=== PATIENT | male | born 1965 | race Caucasian/White ===

== ENCOUNTER 2017-09-20 10:05 | Outpatient (RCR) | payer OTHER, SELFPAY | END 2017-09-20 10:06 | disposition home or self-care (01) | LOC: PT 10:05 | PROVIDERS: PCP Emergency Medicine; Visit Provider Otolaryngology | DX: I89.0 Lymphedema, not elsewhere classified (principal) | CPT/HCPCS: 97162 ==

== ENCOUNTER 2017-12-24 14:00 | Outpatient (RCR) | payer OTHER, SELFPAY | END 2017-12-24 14:01 | disposition home or self-care (01) | LOC: PT 14:00 | PROVIDERS: PCP Emergency Medicine; Visit Provider Otolaryngology | DX: I89.0 Lymphedema, not elsewhere classified (principal) | CPT/HCPCS: 97140; 97162; 97164 ==

== ENCOUNTER → 2017-12-24 15:46 | Outpatient (REF) | payer OTHER, SELFPAY ==
[2017-12-24 18:57] LABS: Amphetamine/Metha Screen,Urine Negative ng/mL (<1000); Barbiturates Screen,Urine Negative ng/mL (<200); Benzodiazepines Screen,Urine Negative ng/mL (<200); Cannabinoid Screen,Urine Negative ng/mL (<50); Cocaine Screen,Urine Negative ng/mL (<300); Methadone Screen,Urine Negative ng/mL (<300); Opiate Screen,Urine Negative ng/mL (<300); Phencyclidine Screen,Urine Negative ng/mL (<25)
== END ==
LOC: LAB 15:46
PROVIDERS: Visit Provider Emergency Medicine
DX: Z79.899 Other long term (current) drug therapy (principal)
CPT/HCPCS: 80305

== ENCOUNTER → 2018-01-25 10:24 | Outpatient (REF) | payer OTHER, SELFPAY ==
[2018-01-25 16:59] LABS: Amphetamine/Metha Screen,Urine Negative ng/mL (<1000); Barbiturates Screen,Urine Negative ng/mL (<200); Benzodiazepines Screen,Urine Negative ng/mL (<200); Cannabinoid Screen,Urine Negative ng/mL (<50); Cocaine Screen,Urine Negative ng/mL (<300); Methadone Screen,Urine Negative ng/mL (<300); Opiate Screen,Urine Positive ng/mL (<300); Phencyclidine Screen,Urine Negative ng/mL (<25)
== END ==
LOC: LAB 10:24
PROVIDERS: Visit Provider Emergency Medicine
DX: Z79.899 Other long term (current) drug therapy (principal)
CPT/HCPCS: 80305

== ENCOUNTER → 2018-02-21 10:43 | Outpatient (REF) | payer OTHER, SELFPAY ==
[2018-02-21 15:22] LABS: Amphetamine/Metha Screen,Urine Negative ng/mL (<1000); Barbiturates Screen,Urine Negative ng/mL (<200); Benzodiazepines Screen,Urine Positive ng/mL (<200); Cannabinoid Screen,Urine Negative ng/mL (<50); Cocaine Screen,Urine Negative ng/mL (<300); Methadone Screen,Urine Negative ng/mL (<300); Opiate Screen,Urine Positive ng/mL (<300); Phencyclidine Screen,Urine Negative ng/mL (<25)
== END ==
LOC: LAB 10:43
PROVIDERS: Visit Provider Emergency Medicine
DX: Z79.899 Other long term (current) drug therapy (principal)
CPT/HCPCS: 80305

== ENCOUNTER → 2018-06-17 13:58 | Outpatient (CLI) | payer OTHER, SELFPAY ==
[2018-06-17 14:54] LABS: Amphetamine/Metha Screen,Urine Negative ng/mL (<1000); Barbiturates Screen,Urine Negative ng/mL (<200); Benzodiazepines Screen,Urine Negative ng/mL (<200); Cannabinoid Screen,Urine Negative ng/mL (<50); Cocaine Screen,Urine Negative ng/mL (<300); Methadone Screen,Urine Negative ng/mL (<300); Opiate Screen,Urine Positive ng/mL (<300); Phencyclidine Screen,Urine Negative ng/mL (<25)
== END ==
PROVIDERS: Visit Provider Emergency Medicine
DX: Z79.899 Other long term (current) drug therapy (principal)
CPT/HCPCS: 80305

== ENCOUNTER → 2018-08-12 13:38 | Outpatient (CLI) | payer OTHER, SELFPAY ==
[2018-08-12 14:07] LABS: Amphetamine/Metha Screen,Urine Negative ng/mL (<1000); Barbiturates Screen,Urine Negative ng/mL (<200); Benzodiazepines Screen,Urine Positive ng/mL (<200); Cannabinoid Screen,Urine Negative ng/mL (<50); Cocaine Screen,Urine Negative ng/mL (<300); Methadone Screen,Urine Negative ng/mL (<300); Opiate Screen,Urine Positive ng/mL (<300); Phencyclidine Screen,Urine Negative ng/mL (<25)
== END ==
PROVIDERS: Visit Provider Emergency Medicine
DX: Z79.899 Other long term (current) drug therapy (principal)
CPT/HCPCS: 80305

== ENCOUNTER → 2018-10-05 16:42 | Outpatient (CLI) | payer OTHER, SELFPAY ==
[2018-10-05 18:42] LABS: Amphetamine/Metha Screen,Urine Negative ng/mL (<1000); Barbiturates Screen,Urine Negative ng/mL (<200); Benzodiazepines Screen,Urine Positive ng/mL (<200); Cannabinoid Screen,Urine Negative ng/mL (<50); Cocaine Screen,Urine Negative ng/mL (<300); Methadone Screen,Urine Negative ng/mL (<300); Opiate Screen,Urine Positive ng/mL (<300); Phencyclidine Screen,Urine Negative ng/mL (<25)
== END ==
PROVIDERS: Visit Provider Emergency Medicine
DX: Z79.899 Other long term (current) drug therapy (principal)
CPT/HCPCS: 80305

== ENCOUNTER → 2019-01-27 17:29 | Outpatient (CLI) | payer OTHER, SELFPAY ==
[2019-01-27 18:15] LABS: Amphetamine/Metha Screen,Urine Negative ng/mL (<1000); Barbiturates Screen,Urine Negative ng/mL (<200); Benzodiazepines Screen,Urine Negative ng/mL (<200); Cannabinoid Screen,Urine Negative ng/mL (<50); Cocaine Screen,Urine Negative ng/mL (<300); Methadone Screen,Urine Negative ng/mL (<300); Opiate Screen,Urine Positive ng/mL (<300); Phencyclidine Screen,Urine Negative ng/mL (<25)
[2019-02-10 03:46] LABS: Alprazolam Negative (Cutoff=100); Benzodiazepines Negative ng/mL (Cutoff=100); Clonazepam Negative (Cutoff=100); Flurazepam Negative (Cutoff=100); Lorazepam Negative (Cutoff=100); Midazolam Negative (Cutoff=100); Temazepam Negative (Cutoff=100); Triazolam Negative (Cutoff=100)
== END ==
PROVIDERS: Visit Provider Emergency Medicine
DX: Z79.891 Long term (current) use of opiate analgesic (principal)
CPT/HCPCS: 80305; 80346

== ENCOUNTER 2019-02-22 13:00 | Outpatient (RCR) | payer OTHER, SELFPAY | END 2019-02-22 13:05 | disposition home or self-care (01) | LOC: PT 13:00 | PROVIDERS: Visit Provider Otolaryngology | DX: I89.0 Lymphedema, not elsewhere classified (principal) | CPT/HCPCS: 97110; 97140; 97163; 97760 ==

== ENCOUNTER → 2019-07-11 13:49 | Outpatient (CLI) | payer OTHER, SELFPAY ==
[2019-07-11 14:33] LABS: Amphetamine/Metha Screen,Urine Negative ng/mL (<1000); Barbiturates Screen,Urine Negative ng/mL (<200); Benzodiazepines Screen,Urine Negative ng/mL (<200); Cannabinoid Screen,Urine Negative ng/mL (<50); Cocaine Screen,Urine Negative ng/mL (<300); Methadone Screen,Urine Negative ng/mL (<300); Opiate Screen,Urine Negative ng/mL (<300); Phencyclidine Screen,Urine Negative ng/mL (<25)
== END ==
PROVIDERS: Visit Provider Emergency Medicine
DX: Z79.899 Other long term (current) drug therapy (principal)
CPT/HCPCS: 80305

== ENCOUNTER → 2019-09-19 12:31 | Outpatient (CLI) | payer OTHER, SELFPAY ==
--- NOTE | 2019-09-19 12:33 | CA_ITS ---
APPROVED REPORT Right Upper Extremity Venous Study for DVT. Knock Up Assembler: GREYSON ShermanT Indications Upper Extremity Pain: Right Upper Extremity Edema: Right History of Smoking Pt has throat cancer,RUE swelling off and on for several weeks Vein Imaging IJV (R): Non-Compressible SCV (R): Non-Compressible Axillary (R): Non-Compressible, Thrombus Brachial (R): Partially Compressible Basilic (R): Partially Compressible Cephalic (R): Compressible Radial (R): Compressible Ulnar (R): Compressible Findings Study suggests a DVT in the right IJ, subclavian, axillary, proximal brachial and proximal basilic veins. Other deep veins of the right upper extremity are normal. Study suggests no evidence of SVT of the right upper extremity. Conclusion DVT in the right IJ, subclavian, axillary, proximal brachial and proximal basilic veins Critical Notification Critical Value: Yes Physician Notified Date: 09/19/2019 Time: 13:10 Physician Name: Dr Wright Electronically signed by : Corey George MD 09/19/2019 19:02:58
== END ==
PROVIDERS: PCP Emergency Medicine; Visit Provider Emergency Medicine
DX: M79.601 Pain in right arm (principal); M79.89 Other specified soft tissue disorders
CPT/HCPCS: 93971

== ENCOUNTER → 2020-05-06 16:13 | Outpatient (CLI) | payer OTHER, SELFPAY ==
[2020-05-08 13:57] LABS: Covid-19 Nasal PCR Sendout Lex NOT DETECTED
== END ==
PROVIDERS: PCP Emergency Medicine; Visit Provider Emergency Medicine
DX: Z03.818 Encounter for observation for suspected exposure to other biological agents ruled out (principal)
CPT/HCPCS: U0004

== ENCOUNTER → 2022-03-18 14:00 | Outpatient (CLI) | payer OTHER, SELFPAY ==
[2022-03-18 20:32] LABS: Amphetamine/Metha Screen,Urine Negative ng/ml (<1000); Barbiturates Screen,Urine Negative ng/ml (<200); Benzodiazepines Screen,Urine Positive ng/ml (<200); Cannabinoid Screen,Urine Negative ng/ml (<50)
[2022-03-18 20:33] LABS: Cocaine Screen,Urine Negative ng/ml (<300)
[2022-03-18 20:34] LABS: Methadone Screen,Urine Negative ng/ml (<300); Opiate Screen,Urine Positive ng/ml (<300)
[2022-03-18 20:35] LABS: Phencyclidine Screen,Urine Negative ng/ml (<25)
== END ==
PROVIDERS: PCP Emergency Medicine; Visit Provider Emergency Medicine
DX: Z79.899 Other long term (current) drug therapy (principal)
CPT/HCPCS: 80305

== ENCOUNTER 2022-03-21 09:53 | Emergency (ER) | payer OTHER, SELFPAY ==
[2022-03-21 11:27] VITALS: BP 144/90; PULSE 72; RESP 20; TEMP 36.8; O2SAT 96; BMI 29.7
--- NOTE | 2022-03-21 11:42 | PC.NURSE ---
ED MD AT BEDSIDE FOR EVALUATION
--- NOTE | 2022-03-21 11:53 | HMH.EDGENADL ---
Discharge Plan Disposition Patient Disposition: Home, Self-Care Condition: Good Prescriptions Prescriptions: New oxycodone 30 mg tablet 30 mg PO Q4-6H Qty: 16 0RF Rx Instructions: take 8X per day No Action diphenhydramine HCl [Benadryl Allergy] 12.5 mg/5 mL liquid 12.5 mg PO Q4-6H PRN (Reason: nausea and vomiting) Qty: 120 2RF tamsulosin 0.4 mg capsule 0.4 mg PO DAILY sildenafil (pulm.hypertension) 20 mg tablet 20 mg PO DIRECTED Qty: 40 0RF Rx Instructions: administer doses at least 4-6 hours apart alprazolam 1 mg tablet 1 mg PO BID Qty: 60 1RF gabapentin 600 mg tablet 600 mg PO QID Qty: 120 1RF morphine 30 mg tablet 60 mg PO BID 30 Days Qty: 120 0RF oxycodone 30 mg tablet 30 mg PO 8XD 30 Days Qty: 240 0RF omeprazole 40 mg capsule,delayed release(DR/EC) See Rx Instructions .ROUTE .COMPLEX Qty: 90 0RF Dose Instruction: TAKE 1 CAPSULE BY MOUTH ONCE A DAY Rx Instructions: TAKE 1 CAPSULE BY MOUTH ONCE A DAY lisinopril 5 mg tablet See Rx Instructions .ROUTE .COMPLEX Qty: 90 3RF Dose Instruction: TAKE 1 TABLET BY MOUTH EVERY DAY Rx Instructions: TAKE 1 TABLET BY MOUTH EVERY DAY levothyroxine 150 mcg tablet See Rx Instructions .ROUTE .COMPLEX Qty: 90 0RF Dose Instruction: TAKE 1 TABLET BY MOUTH ONCE A DAY Rx Instructions: TAKE 1 TABLET BY MOUTH ONCE A DAY polyethylene glycol 3350 [Miralax] 17 gram/dose powder 17 g PO DAILY Qty: 238 2RF Referrals Follow up/Referrals: Michele Wright MD [Primary Care Provider] - See instructions Activity Restrictions/Add. Instructions Additional Instructions/Restrictions: Take oxycodone as prescribed. Follow-up with primary care provider on Wednesday for further prescriptions for pain medication. Additional instructions for CONTROLLED SUBSTANCES: You have been prescribed a medication that is a controlled substance. Controlled substances include pain medications known as opiates and sedative nerve medications known as benzodiazepines. Tramadol, fioricet, and gabapentin are also controlled substances. Some common opiates include: Codeine (such as Tylenol #3) Hydrocodone (Vicodin, Lortab, Lorcet, [place]) Oxycodone (Percocet, Percodan, Oxycodone, Oxy IR) Some common benzodiazepines include: Diazepam (Valium) Lorazepam (Ativan) Alprazolam (Xanax) Clonazepam (Klonopin) Oxazepam (Serax) All of these controlled substances are highly addictive and frequently abused. Misuse can and frequently does lead to addiction as well as overdose and . Medication should be stored in a locked cabinet or other secure storage unit. Do not store the medication in a motor vehicle. Short term supplies, 3 days or less, are prescribed because of the highly addictive nature of the medication. Any of the controlled substance medication NOT taken should be disposed of properly and NOT SAVED. The recommended method of disposing of unused medications is: Place the medicines in a sealable plastic bag. If the medicine is a solid, crush it or add water to dissolve it. Add something undesirable (cat litter, coffee grounds, etc.) Dispose of sealed bag in household trash Do not flush or pour unused medicines down a sink or drain. Controlled substances should not be shared, given away or sold. Because of the addictive nature and frequent abuse, these medications are sometimes stolen. These medications should be kept in a safe place where they cannot be stolen. Do not keep them in your car or purse. Lost or stolen prescriptions for controlled substances WILL NOT BE REFILLED in this emergency department, regardless of whether a police report was filed. Clinical Impressions Clinical Impression: Chronic pain Discharge ED Provider: Wale Bird General Adult HPI General Chief complaint: PAIN Stated complaint: post op pain,throat surgery Time Seen by Provider: 03/01
[2022-03-21 12:10] VITALS: BP 110/70; PULSE 72; RESP 20; TEMP 36.7
== END 2022-03-21 12:10 | disposition home or self-care (01) ==
PROVIDERS: Emergency Provider Emergency Medicine; PCP Emergency Medicine
DX: C32.9 Malignant neoplasm of larynx, unspecified (principal); M54.2 Cervicalgia; R13.10 Dysphagia, unspecified; R11.2 Nausea with vomiting, unspecified; G89.29 Other chronic pain; F17.200 Nicotine dependence, unspecified, uncomplicated; Z79.899 Other long term (current) drug therapy; Z88.8 Allergy status to other drugs, medicaments and biological substances; Z85.89 Personal history of malignant neoplasm of other organs and systems
CPT/HCPCS: 99283

== ENCOUNTER → 2022-07-24 10:53 | Outpatient (CLI) | payer OTHER, SELFPAY | PROVIDERS: PCP Emergency Medicine; Visit Provider Emergency Medicine | DX: Z45.2 Encounter for adjustment and management of vascular access device (principal) ==

== ENCOUNTER 2022-08-20 10:49 | Outpatient (CLI) | payer OTHER, SELFPAY | END 2022-08-20 11:00 | disposition home or self-care (01) | LOC: INF 10:49 | PROVIDERS: PCP Emergency Medicine; Visit Provider Internal Medicine | DX: Z45.2 Encounter for adjustment and management of vascular access device (principal) | CPT/HCPCS: 96523; J1642 ==

== ENCOUNTER → 2022-09-02 10:28 | Outpatient (CLI) | payer OTHER, SELFPAY ==
--- NOTE | 2022-09-02 10:32 | XR_ITS ---
FINAL REPORT CLINICAL HISTORY: wrisit pain FINDINGS: Right wrist Three views were obtained. There is no acute fracture or dislocation. The joint spaces appear normal. No soft tissue abnormality is identified. IMPRESSION: No acute process. Reviewed, Interpreted and Dictated by Dev Cameron MD Transcribed by Lucy Ervin Authenticated and . [facility]
== END ==
PROVIDERS: PCP Emergency Medicine; Visit Provider Orthopaedic Surgery
DX: M25.531 Pain in right wrist (principal)
CPT/HCPCS: 73110

== ENCOUNTER → 2022-09-07 14:50 | Outpatient (CLI) | payer OTHER, SELFPAY ==
[2022-09-07 18:43] LABS: Barbiturates Screen,Urine Negative ng/ml (<200)
[2022-09-07 18:44] LABS: Benzodiazepines Screen,Urine Positive ng/ml (<200)
[2022-09-07 18:45] LABS: Amphetamine/Metha Screen,Urine Negative ng/ml (<1000); Cannabinoid Screen,Urine Positive ng/ml (<50)
[2022-09-07 18:46] LABS: Cocaine Screen,Urine Negative ng/ml (<300); Methadone Screen,Urine Negative ng/ml (<300)
[2022-09-07 18:47] LABS: Phencyclidine Screen,Urine Negative ng/ml (<25)
[2022-09-07 18:48] LABS: Opiate Screen,Urine Positive ng/ml (<300)
== END ==
PROVIDERS: PCP Emergency Medicine; Visit Provider Emergency Medicine
DX: Z79.899 Other long term (current) drug therapy (principal)
CPT/HCPCS: 80305

== ENCOUNTER 2022-10-13 13:45 | Outpatient (CLI) | payer OTHER, SELFPAY | END 2022-10-13 14:00 | disposition home or self-care (01) | LOC: INF 13:46 | PROVIDERS: PCP Emergency Medicine; Visit Provider Internal Medicine | DX: Z45.2 Encounter for adjustment and management of vascular access device (principal) | CPT/HCPCS: 96523; J1642 ==

== ENCOUNTER → 2022-11-03 23:18 | Outpatient (CLI) | payer OTHER, SELFPAY ==
[2022-11-03 21:19] LABS: Amphetamine/Metha Screen,Urine Negative ng/ml (<1000); Barbiturates Screen,Urine Negative ng/ml (<200)
[2022-11-03 21:20] LABS: Benzodiazepines Screen,Urine Negative ng/ml (<200)
[2022-11-03 21:21] LABS: Cannabinoid Screen,Urine Negative ng/ml (<50); Cocaine Screen,Urine Negative ng/ml (<300)
[2022-11-03 21:22] LABS: Methadone Screen,Urine Negative ng/ml (<300)
[2022-11-03 21:23] LABS: Opiate Screen,Urine Positive ng/ml (<300); Phencyclidine Screen,Urine Negative ng/ml (<25)
== END ==
PROVIDERS: PCP Emergency Medicine; Visit Provider Emergency Medicine
DX: G89.29 Other chronic pain (principal)
CPT/HCPCS: 80305

== ENCOUNTER 2022-11-12 13:42 | Outpatient (CLI) | payer OTHER, SELFPAY | END 2022-11-12 13:50 | disposition home or self-care (01) | LOC: INF 13:42 | PROVIDERS: PCP Emergency Medicine; Visit Provider Internal Medicine | DX: Z45.2 Encounter for adjustment and management of vascular access device (principal) | CPT/HCPCS: 96523; J1642 ==

== ENCOUNTER → 2022-12-30 14:10 | Outpatient (CLI) | payer OTHER, SELFPAY ==
[2022-12-30 18:48] LABS: Cannabinoid Screen,Urine Positive ng/ml (<50); Methadone Screen,Urine Negative ng/ml (<300)
[2022-12-30 18:49] LABS: Opiate Screen,Urine Positive ng/ml (<300)
[2022-12-30 21:15] LABS: Amphetamine/Metha Screen,Urine Negative ng/ml (<1000)
[2022-12-30 22:07] LABS: Barbiturates Screen,Urine Negative ng/ml (<200); Benzodiazepines Screen,Urine Positive ng/ml (<200); Cocaine Screen,Urine Negative ng/ml (<300); Phencyclidine Screen,Urine Negative ng/ml (<25)
== END ==
PROVIDERS: PCP Emergency Medicine; Visit Provider Emergency Medicine
DX: F41.9 Anxiety disorder, unspecified (principal)
CPT/HCPCS: 80305

== ENCOUNTER 2023-01-07 14:01 | Outpatient (CLI) | payer OTHER, SELFPAY | END 2023-01-07 14:15 | disposition home or self-care (01) | LOC: INF 14:01 | PROVIDERS: PCP Emergency Medicine; Visit Provider Internal Medicine | DX: Z45.2 Encounter for adjustment and management of vascular access device (principal) | CPT/HCPCS: 96523; J1642 ==

== ENCOUNTER 2023-02-03 13:43 | Outpatient (CLI) | payer OTHER, SELFPAY | END 2023-02-03 13:53 | disposition home or self-care (01) | LOC: INF 13:43 | PROVIDERS: PCP Emergency Medicine; Visit Provider Internal Medicine | DX: Z45.2 Encounter for adjustment and management of vascular access device (principal) | CPT/HCPCS: 96523; J1642 ==

== ENCOUNTER → 2023-02-16 01:10 | Outpatient (CLI) | payer OTHER, SELFPAY ==
[2023-02-16 20:52] LABS: Amphetamine/Metha Screen,Urine Negative ng/ml (<1000); Methadone Screen,Urine Negative ng/ml (<300)
[2023-02-16 20:53] LABS: Barbiturates Screen,Urine Negative ng/ml (<200)
[2023-02-16 20:54] LABS: Benzodiazepines Screen,Urine Positive ng/ml (<200); Cannabinoid Screen,Urine Negative ng/ml (<50)
[2023-02-16 20:55] LABS: Cocaine Screen,Urine Negative ng/ml (<300)
[2023-02-16 20:56] LABS: Opiate Screen,Urine Positive ng/ml (<300)
[2023-02-16 20:58] LABS: Phencyclidine Screen,Urine Negative ng/ml (<25)
== END ==
PROVIDERS: PCP Emergency Medicine; Visit Provider Emergency Medicine
DX: F41.9 Anxiety disorder, unspecified (principal)
CPT/HCPCS: 80305

== ENCOUNTER 2023-03-31 13:48 | Outpatient (CLI) | payer OTHER, SELFPAY | END 2023-03-31 13:57 | disposition home or self-care (01) | LOC: INF 13:49 | PROVIDERS: Visit Provider Internal Medicine | DX: Z45.2 Encounter for adjustment and management of vascular access device (principal) | CPT/HCPCS: 96523; J1642 ==

== ENCOUNTER 2023-05-12 14:05 | Outpatient (CLI) | payer OTHER, SELFPAY | END 2023-05-12 14:44 | disposition home or self-care (01) | LOC: INF 14:06 | PROVIDERS: Visit Provider Internal Medicine | DX: Z45.2 Encounter for adjustment and management of vascular access device (principal) | CPT/HCPCS: 96523; J1642 ==

== ENCOUNTER → 2023-05-19 23:14 | Outpatient (CLI) | payer OTHER, SELFPAY ==
[2023-05-19 18:48] LABS: Basophils % 0.5 % (0.1-2.0); Eosinophils # 0.1 K/mm3 (0.0-0.4); Eosinophils % 2.1 % (0.1-12.0); Hematocrit 48.5 % (42.0-52.0); Hemoglobin 16.3 g/dL (14.1-18.0); Lymphocytes # 1.1 K/mm3 (0.7-4.5); Lymphocytes % 17.2 % (10-50); Mean Corpuscular HGB Conc 33.7 g/dL (31.8-35.4); Mean Corpuscular Hemoglobin 29.8 pg (27.0-31.2); Mean Corpuscular Volume 88.6 fl (80-94); Mean Platelet Volume 10.2 fl (7.4-10.4); Monocytes # 0.5 K/mm3 (0.1-1.0); Monocytes % 8.2 % (1.7-9.3); Neutrophils # 4.6 K/mm3 (1.8-7.8); Platelet Count 145 K/mm3 (142-424); Red Blood Count 5.48 M/mm3 (4.60-6.20); Red Cell Distribution Width 14.8 % (11.5-17.5); White Blood Count 6.4 K/mm3 (4.8-10.8)
[2023-05-19 19:07] LABS: Chloride 98 mmol/L (98-107)
[2023-05-19 19:08] LABS: Potassium 3.5 mmoL/L (3.5-5.1); Sodium 139 mmol/L (136-145)
[2023-05-19 19:10] LABS: Alanine Aminotransferase 24 U/L (12-78); Alkaline Phosphatase 87 U/L (38-126); Anion Gap 12.5 mEq/L (5-15); Aspartate Amino Transferase 31 U/L (17-59); Bilirubin,Total 0.8 mg/dl (0.2-1.3); Blood Urea Nitrogen 16 mg/dl (9-20); Carbon Dioxide 32 mmol/L (22.0-30.0); Estimated Glomerular Filt Rate 77 ml/min (>60); GFR (African American) 94 ML/MIN (>60)
[2023-05-19 19:11] LABS: Albumin Level 4.7 g/dl (3.5-5.0); Albumin/Globulin Ratio 1.2 (1.1-1.8); Chol/HDL Ratio 6.5 (1-3.5); Cholesterol 235 mg/dl (140-200); Globulin 3.8 g/dL (1.3-3.2); Glucose 118 mg/dl (74-100); HDL Cholesterol 36 mg/dl (40-60); Total Protein,Serum 8.5 g/dl (6.3-8.2); Triglycerides 71 mg/dl (30-150); VLDL Cholesterol 14 mg/dL (0-40)
[2023-05-19 19:23] LABS: Direct LDL Cholesterol 166.19 mg/dL (100-129)
[2023-05-19 19:32] LABS: Amphetamine/Metha Screen,Urine Negative ng/ml (<1000); Benzodiazepines Screen,Urine Positive ng/ml (<200)
[2023-05-19 19:33] LABS: Barbiturates Screen,Urine Negative ng/ml (<200); Cocaine Screen,Urine Negative ng/ml (<300)
[2023-05-19 19:34] LABS: Methadone Screen,Urine Negative ng/ml (<300)
[2023-05-19 19:35] LABS: Cannabinoid Screen,Urine Negative ng/ml (<50); Opiate Screen,Urine Negative ng/ml (<300)
[2023-05-19 19:36] LABS: Phencyclidine Screen,Urine Negative ng/ml (<25)
[2023-05-19 19:43] LABS: Thyroid Stimulating Hormone 3.96 uIU/mL (0.465-4.68)
[2023-05-19 20:34] LABS: 25-OH Vitamin D, Total 44.5 ng/mL (30-100)
== END ==
PROVIDERS: Visit Provider Family Medicine
DX: Z79.899 Other long term (current) drug therapy (principal); E03.9 Hypothyroidism, unspecified; E78.5 Hyperlipidemia, unspecified; Z68.34 Body mass index [BMI] 34.0-34.9, adult
CPT/HCPCS: 80053; 80061; 80305; 82306; 84436; 84443; 85025; G0103

== ENCOUNTER 2023-06-09 13:34 | Outpatient (CLI) | payer OTHER, SELFPAY ==
[2023-06-09] MEDS: SODIUM CHLORIDE 0.9% 10ML FLUSH SYRINGE 10 ML IV (13:43)
== END 2023-06-09 13:47 | disposition home or self-care (01) ==
LOC: INF 13:36
PROVIDERS: Visit Provider Internal Medicine
DX: Z45.2 Encounter for adjustment and management of vascular access device (principal)
CPT/HCPCS: 96523; J1642

== ENCOUNTER 2023-06-14 12:56 | Outpatient (CLI) | payer OTHER, SELFPAY ==
[2023-06-14 14:26] LABS: Barbiturates Screen,Urine Negative ng/ml (<200)
[2023-06-14 14:28] LABS: Benzodiazepines Screen,Urine Negative ng/ml (<200); Cannabinoid Screen,Urine Negative ng/ml (<50)
[2023-06-14 14:29] LABS: Cocaine Screen,Urine Negative ng/ml (<300)
[2023-06-14 14:30] LABS: Methadone Screen,Urine Negative ng/ml (<300)
[2023-06-14 14:49] LABS: Amphetamine/Metha Screen,Urine Negative ng/ml (<1000)
[2023-06-14 14:50] LABS: Phencyclidine Screen,Urine Negative ng/ml (<25)
[2023-06-14 15:30] LABS: Opiate Screen,Urine Negative ng/ml (<300)
[2023-06-17 14:29] LABS: Opiates Negative (Cutoff=100); Oxycodone (GC/MS) 396 ng/mL (Cutoff=100); Oxymorphone (GC/MS) 282 ng/mL (Cutoff=100)
== END 2023-06-14 23:59 ==
LOC: LAB.DROPOF 12:56
PROVIDERS: PCP Family Medicine; Visit Provider Family Medicine
DX: Z79.899 Other long term (current) drug therapy (principal); M51.16 Intervertebral disc disorders with radiculopathy, lumbar region
CPT/HCPCS: 80307; 80361; 80365; G0480

== ENCOUNTER 2023-08-23 14:06 | Outpatient (CLI) | payer OTHER, SELFPAY ==
[2023-08-23] MEDS: SODIUM CHLORIDE 0.9% 10ML FLUSH SYRINGE 10 ML IV (14:15)
== END 2023-08-23 14:15 | disposition home or self-care (01) ==
PROVIDERS: PCP Internal Medicine; Visit Provider Internal Medicine
DX: Z85.21 Personal history of malignant neoplasm of larynx (principal); Z45.2 Encounter for adjustment and management of vascular access device
CPT/HCPCS: 96523; J1642

== ENCOUNTER 2023-09-20 13:45 | Outpatient (CLI) | payer OTHER, SELFPAY ==
[2023-09-20] MEDS: SODIUM CHLORIDE 0.9% 10ML FLUSH SYRINGE 10 ML IV (13:50)
== END 2023-09-20 23:59 | disposition home or self-care (01) ==
LOC: INF 13:45
PROVIDERS: Visit Provider Internal Medicine
DX: Z85.21 Personal history of malignant neoplasm of larynx (principal)
CPT/HCPCS: 96523; J1642

== ENCOUNTER 2023-11-09 13:41 | Outpatient (CLI) | payer OTHER, SELFPAY ==
[2023-11-09] MEDS: SODIUM CHLORIDE 0.9% 10ML FLUSH SYRINGE 10 ML IV (13:55)
== END 2023-11-09 14:00 | disposition home or self-care (01) ==
PROVIDERS: Visit Provider Internal Medicine
DX: Z85.21 Personal history of malignant neoplasm of larynx (principal)
CPT/HCPCS: 96523; J1642

== ENCOUNTER 2023-12-13 12:45 | Outpatient (CLI) | payer OTHER, SELFPAY ==
[2023-12-13] MEDS: SODIUM CHLORIDE 0.9% 10ML FLUSH SYRINGE 10 ML IV (12:50)
== END 2023-12-13 23:59 | disposition home or self-care (01) ==
LOC: INF 12:46
PROVIDERS: Visit Provider Internal Medicine
DX: C32.9 Malignant neoplasm of larynx, unspecified (principal)
CPT/HCPCS: 96523; J1642

== ENCOUNTER 2024-03-24 14:54 | Outpatient (CLI) | payer OTHER, SELFPAY ==
[2024-03-24] MEDS: SODIUM CHLORIDE 0.9% 10ML FLUSH SYRINGE 10 ML IV (15:08)
== END 2024-03-24 15:09 | disposition home or self-care (01) ==
LOC: INF 14:55
PROVIDERS: Visit Provider Internal Medicine
DX: Z45.2 Encounter for adjustment and management of vascular access device (principal)
CPT/HCPCS: 96523; J1642

== ENCOUNTER 2024-05-03 13:32 | Outpatient (CLI) | payer OTHER, SELFPAY ==
--- OUTSIDE RECORDS SUMMARY | 2024-05-03 13:34 | XMS_ITS | Encounter Summary ---
Author Organization Healthcare Address [address] [place], [place] [id number] Care Team Providers Care Assistant Food Service Director Name Role Phone Michele Wright MD Primary Care Provider + [phone] Shun Hurst MD Unavailable [phone] Divine Carpenter MD Unavailable [phone] Ambika Cain CF-ORTHOTIST PROSTHETIST Unavailable Unavailab le Encounter Details Date Type Department Care Team (Late st Contact Info) Description 02/04/2024 11:00 AM EDT Office Visit [facility] Voice [address] [place] [address] Earnestine Billy, [facility]-ORTHOTIST PROSTHETIST [address] [facility] [id number] [place] [address] Aphonia (Primary Dx); History of laryngeal cancer Social History Tobacco Use Types Packs/Day Years Used Date Smoking Tobacco: Former Cigarettes 2 10 1 991 - 2000 Smokeless Tobacco: Never Alcohol Use Standard Drinks/Week Comments Not Currently 0 (1 standard drink = 0.6 oz pure alcohol) Alcoholic Drinks/day: Quit consuming alcohol in remote past PHQ-2 Answer Date Recorded Patient Health Questionnaire-2 Score 0 08/18/2021 Sex and Gender Information Value Date Recorded Sex Assigned at Male 11/21/2020 2:37 PM EDT Legal Sex Male 8:00 PM EDT Gender Identity Male 11/21/2020 2:37 PM EDT Sexual Orientation Straight 11/21/2020 2: 37 PM EDT documented as of this encounter Miscellaneous Notes * Progress Notes - Earnestine Billy, [facility]-ORTHOTIST PROSTHETIST - 02/04/2024 11:00 AM EDT [facility] Tracheoesophageal Puncture Assessment/Treatment Service Date: 02/04/2024 Referring Provider: Gil Hernandez MD Total assessment/treatment time: 30 minutes Treatment Diagnosis: R.49. Aphonia and C32: Laryngeal cancer History: Mr. 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 Unfortunately, he developed recurrent disease and required a salvage extended total laryngectomy with partial glossectomy on 03/22/2018. He was taken to the OR on 12/19/2018 for a tracheoesophageal puncture and Z-plasty with release of scar tissue. In August of 2019, he was diagnosed and treated for a right upper extremity DVT. On 11/21/2019, Mr. Barreto was taken to the OR for a right wedge VATS resection. Pathology revealed SCCa. Mr. Barreto subsequently completed SBRT x 6 on 03/29/2020 and continues to receive chemotherapy. Mr. Barreto has since been diagnosed with persistenceof disease in this area and is currently undergoing chemotherapy for the same. Mr. Barreto has had ongoing issues with dysphagia and has undergone several esophageal dilation procedures with modest results. His prosthesis was last changed on 07/07/2023 using a 17Fr./10mm Provox Hackett with an XtraFlange. Patient complaint: Mr. Barreto reports his prosthesis has been leaking on and off for several weeksand it has been getting more challenging to produce a voice. He reports his swallowing function andweight are stable. He denies difficulty breathing or head/neck or ear pain. He is consistently using his LaryTube and HME's. He is not having any issues getting his laryngectomee supplies. His continues to receive treatment for pancreatic cancer at [facility]. Assessment/Procedure: Prosthesis Size/Type: 17Fr./10mm/Provox Hackett/#[id number] Provox XtraFlange lot#: [id number] Dilation: deferred Insertion Method: Gel capsule Mr. Barreto removed his LaryTube. His stoma is clean and of a functional size to allow functional respiration and TEP maintenance and management. The prosthesis is well seated within the tract. Mild inflammation is noted in the irene-puncture tract region. The prosthesis has a distorted and discolored appearance with biofilm noted on the tracheal flange. Central leakage was noted as he sipped water. At this point it was recommended the prosthesis be changed and he verbally consented. A small amount of lidocaine was topically applied to the irene-puncture tract region for patient comfort. After confirmation of anesthetic effect, the prosthesis was removed with clamped hemostats. The new prosthesis with an XtraFlange was immediately placed without incident or difficulty. The XtraFlange was placed to decrease the likely low of irene leakage given the distorted/expanded appearance of the leaking prosthesis. After confirmation of functional placement, the insertion tab for the prosthesis andthe XtraFlange was clipped and the prosthesis was functionally oriented within the tract. Evaluation: The TEP rotates freely within the tract. No central leakage or peripheral leakage observed. Neophonation is characteristically functional and per patient report less effortful. Plan: Follow-up with [facility] as needed for TEP maintenance as needed. Use the new brush provided and dispose of the used cleaning brush. Follow-up with cancer care team at prescribed intervals or sooner if issues arise. Education: Mr. Barreto was educated regarding assessment findings and recommendations. He demonstrated functional understanding of the information presented and consented to the prescribed plan of care. documented in this encounter Plan of Treatment Upcoming Encounters Date Type Department Care Team ([facility] Contact Info) Description 07/17/2024 12:30 PM EST Clinical Support [facility] Head, Neck & Respiratory [address] [facility] [place] [address] 07/17/2024 1:30 PM EST Appointment [facility] Radiology [address] [place] [phone] 07/20/2024 2:50 PM EST Office Visit [facility] Head[facility] Neck [facility] Respiratory [address] [facility], [address] [place] [address] Divine Carpenter MD [address] [facility] Diane Zuniga [facility] [address] [place] [address] documented as of this encounter Visit Diagnoses Diagnosis Aphonia- Primary History of laryngeal cancer Personal history of malignant neoplasm of larynx documented in this encounter Additional Health Concerns Assessment Noted Time A fall risk assessment has been complete d for the patient 01/17/2024 11:14 AM EDT A Body Mass Index follow-up plan has been documented for the patient 02/04/2024 11:58 AM EDT documented as of this encounter Care Teams Assistant Food Service Director Relationship Specialty Start Date End Date Michele Wright MD [address] [place] [address] PCP - General 10/11/20 Shun Hurst MD [address] [facility] [address] [place] [address] Surgeon Neurosurgery 02/24/21 Divine Carpenter MD [address] [facility] [address] [place] [address] Medical Oncologist Medical Oncology 06/13/21 Ambika Cain CF-ORTHOTIST PROSTHETIST Speech Language Pathologist Speech Pathology 10/06/23 documented as of this encounter
--- OUTSIDE RECORDS SUMMARY | 2024-05-03 13:34 | XMS_ITS | Encounter Summary ---
Author Organization [facility] Address [address] [place] [address] Care Team Providers Care Supervisor Electrolytic Tinning Name Role Phone Michele Wright MD Primary Care Provider + [phone] Shun Hurst MD Unavailable [phone] Divine Carpenter MD Unavailable [phone] Ambika Cain CF-BREWERY CELLAR WORKER Unavailable Unavailab le Reason for Visit * Reason Onset Date Comments Med Refill 03/20/2024 Encounter Details Date Type Department Care Team (Late st Contact Info) Description 03/20/2024 Refill [facility] Neck [facility] Respiratory [address] [facility], [address]nd [place] [address] Ambika Ambriz, RN [facility]-HEAD NECK AND RESPIRATORY CLINIC Neoplasm related pain Social History Tobacco Use Types Packs/Day Years [...] PM EDT documented as of this encounter Plan of Treatment Upcoming Encounters Date Type Department Care Team (Late Contact Info) Description 07/17/2024 12:30 PM EST Clinical Support [facility] Neck [facility] Res[facility] [address] [facility], [address]nd [place] [address] 07/17/2024 1:30 PM EST Appointment [facility] G Radiology [address] [place] [phone] 07/20/2024 2:50 PM EST Office Visit [facility] Head[facility] Neck [facility] Respiratory [address] [facility], [address]nd [place] [address] Divine Carpenter MD [address] [facility] [place] [facility] [address] [facility] [address] [place] [address] documented as of this encounter Visit Diagnoses Diagnosis Neoplasm related pain Neoplasm related pain (acute) (chronic) documented in this encounter Additional Health Concerns Assessment Noted Time A fall risk assessment has been complete d for the patient 01/17/2024 11:14 AM EDT A Body Mass Index follow-up plan has been documented for the patient 02/04/2024 11:58 AM EDT documented as of this encounter Care Teams Supervisor Electrolytic Tinning Relationship Specialty Start Date End Date Michele Wright MD [address] [place] [address] PCP - General 10/11/20 Shun Hurst MD [address] [facility] [address] [place] [address] Surgeon Neurosurgery 02/24/21 Divine Carpenter MD [address] [facility] Diane Rosasson [facility] [address] [place] [address] Medical Oncologist Medical Oncology 06/13/21 Ambika Cain CF-BREWERY CELLAR WORKER Speech Language Pathologist Speech Pathology 10/06/23 documented as of this encounter
--- OUTSIDE RECORDS SUMMARY | 2024-05-03 13:34 | XMS_ITS | Encounter Summary ---
Author Organization Healthcare Address [address] [place] [id number] Care Team Providers Care Sanitation Associate Name Role Phone Michele Wright MD Primary Care Provider + [phone] Shun Hurst MD Unavailable [phone] Divine Carpenter MD Unavailable [phone] Ambika Cain CF-ORTHOPAEDIC NURSE Unavailable Unavailab le Encounter Details Date Type Department Care Team (Late st Contact Info) Description 03/20/2024 Orders Only [facility] Head[facility] Neck [facility] Respiratory [address] [facility], [address]nd [place] [address] Divine Carpenter MD [address] [facility] [address] [place] [address] Neoplasm related pain Social History Tobacco Use [...] Encounters Date Type Department Care Team (Late st Contact Info) Description 07/17/2024 12:30 PM EST Clinical Support [facility] Neck [facility] Respiratory [address] [facility], [address] [place] [address] 07/17/2024 1:30 PM EST Appointment [facility] G Radiology [address] [place] [address] 07/20/2024 2:50 PM EST Office Visit [facility] Head[facility] Neck & Respiratory [address] [facility], [address] [place] [address] Divine Carpenter MD [address] [facility] [address] [facility] [address] [place] [address] documented as of this encounter Visit Diagnoses [...] documented as of this encounter Care Teams Sanitation Associate Relationship Specialty Start Date End Date Michele Wright MD [address] [place] [address] PCP - General 10/11/20 Shun Hurst MD [address] [facility] [address] [place] [address] Surgeon Neurosurgery 02/24/21 Divine Carpenter MD [address] [facility] Diane Rosasson [facility] [address] [place] [address] Medical Oncologist Medical Oncology 06/13/21 Ambika Cain CF-ORTHOPAEDIC NURSE Speech Language Pathologist Speech Pathology 10/06/23 documented as of this encounter
--- OUTSIDE RECORDS SUMMARY | 2024-05-03 13:34 | XMS_ITS | Encounter Summary ---
Author Organization [facility] Address [address] [place] [address] Care Team Providers Care Market Development Specialist Name Role Phone Michele Wright MD Primary Care Provider + [phone] Shun Hurst MD Unavailable [phone] Divine Carpenter MD Unavailable [phone] Ambika Cain CF-FRESH WORK INSPECTOR Unavailable Unavailab le Reason for Visit * Reason Onset Date Comments Med Refill 02/22/2024 Encounter Details Date Type Department Care Team (Late Contact Info) Description 02/22/2024 Refill [facility] Head[facility] Neck [facility] Respiratory [address] [facility], [address]nd [place] [address] Ambika Ambriz, RN AMB-HEAD NECK AND RESPIRATORY [...] [facility] Head[facility] Neck & Respiratory [address] [facility], [address]nd [place] [address] 07/17/2024 1:30 PM EST Appointment [facility] G Radiology [address] [place] [phone] 07/20/2024 2:50 PM EST Office Visit [facility] Head[facility] Neck & Respiratory [address] [facility], [address]nd [place] [address] Divine Carpenter MD [address] [facility] [address] [facility] [address] [place] [address] documented as of this encounter Visit Diagnoses [...] documented as of this encounter Care Teams Market Development Specialist Relationship Specialty Start Date End Date Michele Wright MD [address] [place] [address] PCP - General 10/11/20 Shun Hurst MD [address] [facility] [address] [place] [address] Surgeon Neurosurgery 02/24/21 Divine Carpenter MD [address] [facility] Diane Rosasson [facility] [address] [place] [address] Medical Oncologist Medical Oncology 06/13/21 Ambika Cain CF-FRESH WORK INSPECTOR Speech Language Pathologist Speech Pathology 10/06/23 documented as of this encounter
--- OUTSIDE RECORDS SUMMARY | 2024-05-03 13:34 | XMS_ITS | Clinical Summary ---
Author Organization [facility] Address [address] [place] [address] Care Team Providers Care Inspector Floor Sub Assembly Name Role Phone Michele Wright MD Primary Care Provider + [phone] Shun Hurst MD Unavailable [phone] Divine Carpenter MD Unavailable [phone] Ambika Cain CF-FLOUR BLENDER Unavailable Unavailab le Allergies Active Allergy Reactions Criticality Noted Date Comments Cetuximab Anaphylaxis High 02/17/2021 SOA, hypotension, after 9 ml of drug Docetaxel Rash,Shortness of breath,Unknown - Patient states they do not know rxn details High 04/20/2017 Patient very dyspnic, flushed, severe back pain. Patient very dyspnic, flushed, severe back pain. Patient very dyspnic, flushed, severe back pain. Methadone Rash,Other - please document in the comment field Low 02/11/2017 Medications ondansetron (Zofran) 8 MG tablet Take 1 tablet (8 mg) by mouth 2 (two) times a day. Starting day after chemo for 3 days. 30 tablet 5 4 Active omeprazole (PriLOSEC) [address] capsule Take 1 capsule (40 mg) by mouth 1 (one) time each day. Do not crush or chew. 90 capsule 3 4 Active naloxone (Narcan) 4 mg/0.1 mL nasal sprayIndications :Neoplasm related pain 1. Give 1 spray in nostril for no/slow breathing or cannot wake after opioid use 2. Call 911 3. Repeat in other nostril if symptoms continue 1 each 4 Active lidocaine (Xylocaine) 2 % solution 3 Active atorvastatin (Lipitor) 20 MG tablet Take 1 tablet (20 mg) by mouth 1 (one) time each day. 90 tablet 4 Active tamsulosin (Flomax) 0.4 MG 24 hr capsule Take 1 capsule (0.4 mg) by mouth every night. 90 capsule 1 4 Active levothyroxine (Synthroid, Levoxyl) 125 MCG tablet TAKE 1 TABLET BY MOUTH EVERY DAY 90 tablet 1 4 Active lisinopril-hydro CHLOROthiazide 20-25 MG tabletIndication s:Primary hypertension TAKE 1 TABLET BY MOUTH EVERY DAY 90 tablet 1 4 Active amLODIPine (Norvasc) 2.5 MG tablet TAKE 1 TABLET BY MOUTH EVERY DAY 90 tablet 1 4 Active ALPRAZolam (Xanax) 1 MG tablet Take 1 tablet (1 mg) by mouth 2 (two) times a day. 60 tablet 2 4 Active gabapentin (Neurontin) 600 MG tabletIndication s:Neoplasm related pain Take 1 tablet (600 mg) by mouth 4 (four) times a day. 120 tablet 2 4 Active oxyCODONE (Roxicodone) 30 MG immediate release tabletIndication s:Neoplasm related pain Take 1 tablet (30 mg) by mouth every 3 (three) hours if needed for severe pain. 240 tablet 4 Active gabapentin (Neurontin) 600 MG tabletIndication s:Neoplasm related pain Take 1 tablet (600 mg) by mouth 4 (four) times a day. 120 tablet 2 4 04/17/20 24 Discontin ued(Reord er) ALPRAZolam (Xanax) 1 MG tablet Take 1 tablet (1 mg) by mouth 2 (two) times a day. 60 tablet 2 4 04/17/20 24 Discontin ued(Reord er) oxyCODONE (Roxicodone) 30 MG immediate release tabletIndication s:Neoplasm related pain Take 1 tablet (30 mg) by mouth every 3 (three) hours if needed for severe pain. 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 12/26/2020 Secondary malignant neoplasm of chest wall 11/26 Neoplasm related pain 10/14/2020 Current use of predatory animal exterminator anticoagulation 020 DVT (deep venous thrombosis) 10/18/2019 Aspiration of liquid 12/28/2018 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 Aphonia 04/04/2018 Status post laryngectomy 04/04/2018 Tracheostomy dependent 01/10/2018 Diabetes mellitus 04/12/2017 Cancer of larynx 03/18/2017 Cancer Staging:Clinical stage from 02/19/2017:Stage ZULAY(cT3, cN2c, cM0) - Signed by Divine Carpenter MD on 10/14/2020 Pathologic stage from 03/22/2018:Stage III(rpT3, pN0, cM0) - Signed by Divine Carpenter MD on 10/14/2020 Pathologic stage from 11/21/2019:Stage IVC(rpTX, pNX, pM1) - Signed by Divine Carpenter MD on 10/14/2020 Dysphagia, pharyngeal 03/17/2017 Resolved Problems Problem Noted Date Diagnosed Date Resolved Date Second hand smoke exposure 06/30/2021 0 07/21/2021 Acute COVID-19 06/12/2021 06/16/2021 Dysphagia causing pulmonary aspiration with swallowing 04/22/2021 04/11/2022 Asymmetric SNHL (sensorineural hearing loss) 7 07/21/2021 Subjective tinnitus of left ear 04/07/2017 07/21/2021 Encounters Date Type Department Care Team Description 04/20/2024 Refill [facility] [address] [place] [address] Divine Carpenter MD Neoplasm related pain 04/17/2024 Orders Only [facility] [address] [place] [address] Divine Carpenter MD 04/17/2024 Refill [facility] [address] [phone] Ambika Ambriz RN Neoplasm related pain 03/21/2024 Refill [facility] [address] [phone] Divine Carpenter MD Primary hypertension 03/20/2024 Orders Only [facility] [address] [address] Divine Carpenter MD Neoplasm related pain 03/20/2024 Refill [facility] [address] [place] [address] Ambika Ambriz RN Neoplasm related pain 03/01/2024 Refill [facility] [address] [address] Prem Murillo, ACCOUNT CONSULTANT Primary hypertension 02/22/2024 Refill [facility] [address] [address] Ambika Ambriz RN Neoplasm related pain 02/15/2024 Orders Only [facility] [address] [address] Ambika Ambriz RN 02/15/2024 Refill [facility] [address] [address] Ambika Ambriz RN 02/04/2024 11:00 AM EDT Office Visit [facility] [address] [address] Earnestine Billy, [facility]-FLOUR BLENDER Aphonia (Primary Dx); History of laryngeal cancer 02/04/2024 Travel from Last 3 Months Family History Medical History Relation Name Comments Kidney failure Father FH: kidney fa ilure Stroke Father Liver cancer Mother FH: liver cance r Breast cancer Sister 1 Uterine cancer Sister 2 Heart attack Sister 3 Uterine cancer Sister 4 FH: uterine c ancer Anesthesia problems Neg Hx Malig Hyperthermia Neg Hx Relation Name Status Comments Father Mother Sister 1 Sister 2 Sister 3 Sister 4 Social History Tobacco Use Types Packs/Day Years Used Date Smoking Tobacco: Former Cigarettes 2 10 1 991 - 2000 Smokeless Tobacco: Never Tobacco Cessation:Counseling Given: Not Answered Alcohol Use Standard Drinks/Week Comments Not Currently [...] Orientation Straight 11/21/2020 2: 37 PM EDT Last Filed Vital Signs Vital Sign Reading Time Taken Comments Blood Pressure 124/68 01/17/2024 11:13 AM EDT Pulse 67 01/17/2024 11:13 AM EDT Temperature 36.9 ??C (98.4 ??F) 01/17/2024 1 1:13 AM EDT Respiratory Rate 16 01/17/2024 11:1 3 AM EDT Oxygen Saturation 92% 01/17/2024 11: 13 AM EDT Inhaled Oxygen Concentration - - Weight 99.3 kg (218 lb 14.7 oz) 024 11:13 AM EDT Height 176 cm (5' 9.29 ) 01/17/2024 11: 13 AM EDT Body Mass Index 32.06 01/17/2024 11:13 AM EDT Plan of Treatment Upcoming Encounters Date Type Department Care Team (Late st Contact Info) Description 07/17/2024 12:30 PM EST Clinical Support [facility] [address] [address] 07/17/2024 1:30 PM EST Appointment [facility] Radiology [address] [place] [address] 07/20/2024 2:50 PM EST Office Visit [facility] [address] [place] [address] Divine Carpenter MD 800 [facility] [address] [place] [address] Health Maintenance Due Date Last Done Comments [facility]-Diabetes: Hemoglobin A1C 1966 [facility]-/Child/Adol SDOH Screenings 1966 [facility]-Pneumococcal Vaccine: Pediatrics (0 to 5 Years) and At-Risk Patients (6 to 64 Years) (1 of 2 - PCV) 1972 Diabetes: Dental Exam 1976 [facility]- SDOH Screenings 1984 [facility]-Adult SDOH Screenings 1984 [facility]-DTaP,Tdap,and Td Vaccines (1 - Tdap) 1985 [facility]-Hepatitis B Vaccines (1 of 3 - 19+ 3-dose series) 1985 [facility]-Zoster Vaccines (1 of 2) 1985 CT Colonography 2011 Colonoscopy 2011 FIT-DNA 2011 FIT 2011 FOBT 2011 Sigmoidoscopy 2011 [facility]-Colorectal Cancer Screening 2011 [id number] Vaccine (3 - Moderna risk series) 11/07/2020 10/10/2020, 09/12/2020 [facility]-Depression Screening 08/18/2022 08/18/2021, 11/0 05/2020 [facility]-Influenza Vaccine (#1) 01/30/202405/19, 05/12/2022, 02/21/2018 [facility]-RSV Vaccine: 60+ Years or (1 - 1-dose 75+ series) 2041 [facility]-HIV Screening Completed 06/12/2021, 06/12/2021 [facility]-Hepatitis C Screening Completed 06/12/2021 [facility]-Obesity Intervention Completed 024, 01/10/2024, 07/20/2023, Additional history exists [facility]-HIB Vaccines Aged Out No longer e ligible based on patient's age to complete this topic [facility]-HPV Vaccines Aged Out No longer e ligible based on patient's age to complete this topic [facility]-Hepatitis A Vaccines Aged Out No longer eligible based on patient's age to complete this topic [facility]-IPV Vaccines Aged Out No longer e ligible based on patient's age to complete this topic [facility]-Rotavirus Vaccines Aged Out No lo nger eligible based on patient's age to complete this topic Medical Devices Implanted Type Area Washroom Operator Device Identifier Shelf Expiration Date Model / Serial / Lot Port Clearvue Power 8fr - [id number] Implanted:Qty: 1 on 03/06/2021 by Clyde Aguillon MD at [facility] [employer]-[id number] / / Description:8 Fr Single lume n power port, 25 cm length. Procedures Procedure Name Priority Date/Time Associated Diagnosis Comments HEPATITIS C ANTIBODY - ED W/REFLEX TO HCV QUANT PCR STAT 06/12/2021 12:53 PM EST HIV 1/2 ANTIBODY/ANTIGEN SCREEN WITH REFLEX TO HIV I/II DIFFERENTIATION STAT 06/12/2021 12:53 PM EST from Last 3 Months or Most Recently Relevant to Health Maintenance Results * HIV 1 & 2 Antibody/Antigen Screen (06/12/2021 12:53 PM EST) Pathologist [facility] HIV 1 & 2 Antibody/Anti gen Screen Nonreactive Nonreactive 06/12/2021 2:03 PM EST [facility] Blood Venous blood specimen / Unknown Venipuncture / Unknown 06/12/2021 12:53 PM EST 06/12/2021 1:07 PM EST us Berta Mohan MD LAB BLOOD ORDERABLES Final Res ult [facility] [address] [place] [id number] * [place] Hepatitis C Antibody (06/12/2021 12:53 PM EST) Pathologist [facility] Hepatitis C Antibody Negative Negative 06/12/2021 2:02 PM EST [facility] Blood Venous blood specimen / Unknown Venipuncture / Unknown 06/12/2021 12:53 PM EST 06/12/2021 1:07 PM EST us Berta Mohan MD LAB BLOOD ORDERABLES Final Res ult [facility] [address] [place] [address] from Last 3 Months or Most Recently Relevant to Health Maintenance Insurance [facility] MEDICAID Advance Directives * DNR/DNI (Latest Code Status on File) Date Activated Date Inactivated Comments 06/12/2021 2:29 PM 06/16/2021 6:02 PM Question Answer Comments DNR determined on/before admission date? Yes Patient has decision-making capacity? Yes Care Teams Inspector Floor Sub Assembly Relationship Specialty Start Date End Date Michele Wright MD [address] [place] [address] PCP - General 10/11/20 Shun Hurst MD [address] [place] [address] Surgeon Neurosurgery 02/24/21 Divine Carpenter MD 800 [facility] [address] [place] [address] Medical Oncologist Medical Oncology 06/13/21 Ambika Cain -FLOUR BLENDER Speech Language Pathologist Speech Pathology 10/06/23
--- OUTSIDE RECORDS SUMMARY | 2024-05-03 13:34 | XMS_ITS | Encounter Summary ---
Author Organization [facility] Address [address] [place] [address] Care Team Providers Care Manager Risk Name Role Phone Michele Wright MD Primary Care Provider + [phone] Shun Hurst MD Unavailable [phone] Divine Carpenter MD Unavailable [phone] Ambika Cain CF-TRAINING ENGINEER Unavailable Unavailab le Reason for Visit * Reason Onset Date Comments Med Refill 02/15/2024 Encounter Details Date Type Department Care Team (Late Contact Info) Description 02/15/2024 Refill [facility] [address] [place] [address] Ambika Ambriz RN [facility] Social History Tobacco Use Types Packs/Day Years Used Date Smoking Tobacco: Former Cigarettes 2 10 1 1 - 2000 Smokeless Tobacco: Never Alcohol Use [...] Neck & Respiratory [address] [place] [address] 07/17/2024 1:30 PM EST Appointment [facility] Radiology [address] [place] [address] 07/20/2024 2:50 PM EST Office Visit [facility] Res[facility] 800 [facility], [address]nd [place] [address] Divine Carpenter MD [address] [facility] [address] [place] [phone] documented as of this encounter Visit Diagnoses Not on filedocumented in this encounter Additional Health Concerns Assessment Noted Time A fall risk assessment has been complete d for the patient 01/17/2024 11:14 AM EDT A Body Mass Index follow-up plan has been documented for the patient 02/04/2024 11:58 AM EDT documented as of this encounter Care Teams Manager Risk Relationship Specialty Start Date End Date Michele Wright MD [address] [place] [address] PCP - General 10/11/20 Shun Hurst MD [address] [facility] [address] [place] [address] Surgeon Neurosurgery 02/24/21 Divine Carpenter MD 800 [facility] Diane Rosasson [facility] [address] [place] [address] Medical Oncologist Medical Oncology 06/13/21 Ambika Cain CF-TRAINING ENGINEER Speech Language Pathologist Speech Pathology 10/06/23 documented as of this encounter
--- OUTSIDE RECORDS SUMMARY | 2024-05-03 13:34 | XMS_ITS | Encounter Summary ---
Author Organization [facility] Address [address] [place] [id number] Care Team Providers Care Pigment Presser Name Role Phone Michele Wright MD Primary Care Provider + [phone] Shun Hurst MD Unavailable [phone] Divine Carpenter MD Unavailable [phone] Ambika Cain CF-MEDICAL IMAGING TECHNOLOGIST Unavailable Unavailab le Encounter Details Date Type Department Care Team (Late Contact Info) Description 04/17/2024 Orders Only [facility]ck [facility] Res[facility] 800 [facility], [address] [place] [address] Divine Carpenter MD [address] [facility] [address] [place] [address] Social History Tobacco Use Types Packs/Day Years [...] [facility] Res[facility] 800 [facility], [address]nd [place] [address] 07/17/2024 1:30 PM EST Appointment [facility] Radiology [address] [place] [address] 07/20/2024 2:50 PM EST Office Visit [facility]ck [facility] Res[facility] 800 [facility], [address] [place] [address] Divine Carpenter MD 800 [facility] [address] [facility] [address] [place] [address] documented as of this encounter Visit Diagnoses Not on filedocumented in this encounter Additional Health Concerns Assessment Noted Time A fall risk assessment has been complete d for the patient 01/17/2024 11:14 AM EDT A Body Mass Index follow-up plan has been documented for the patient 02/04/2024 11:58 AM EDT documented as of this encounter Care Teams Pigment Presser Relationship Specialty Start Date End Date Michele Wright MD [address] [place] [address] PCP - General 10/11/20 Shun Hurst MD [address] [facility] [address] [place] [address] Surgeon Neurosurgery 02/24/21 Divine Carpenter MD 800 [facility] Diane Rosasson [address] [place] [address] Medical Oncologist Medical Oncology 06/13/21 Ambika Cain CF-MEDICAL IMAGING TECHNOLOGIST Speech Language Pathologist Speech Pathology 10/06/23 documented as of this encounter
--- OUTSIDE RECORDS SUMMARY | 2024-05-03 13:34 | XMS_ITS | Encounter Summary ---
Author Organization [facility] Address [address] [place] [address] Care Team Providers Care An/Ssn 2 4 Operator Name Role Phone Michele Wright MD Primary Care Provider + [phone] Shun Hurst MD Unavailable [phone] Divine Carpenter MD Unavailable [phone] Ambika Cain CF-FILM PROCESS OPERATOR Unavailable Unavailab le Reason for Visit * Reason Onset Date Comments Med Refill 04/17/2024 Encounter Details Date Type Department Care Team (Late st Contact Info) Description 04/17/2024 Refill [facility] Res[facility] 800 [facility], [address]nd [place] [address] Ambika Ambriz, RN [facility]-HEAD NECK AND RESPIRATORY [...] [facility], 2nd [place] [address] 07/17/2024 1:30 PM EST Appointment [facility] Radiology [address] [place] [address] 07/20/2024 2:50 PM EST Office Visit [facility]ck [facility] Res[facility] 800 [facility], [address]nd [place] [address] Divine Carpenter MD 800 [facility] Efrain [facility] [address] [place] [address] documented as of this encounter Visit Diagnoses [...] documented as of this encounter Care Teams An/Ssn 2 4 Operator Relationship Specialty Start Date End Date Michele Wright MD [address] [place] [address] PCP - General 10/11/20 Shun Hurst MD [address] [facility] [address] [place] [address] Surgeon Neurosurgery 02/24/21 Divine Carpenter MD 800 [facility] Diane Rosasson [facility] [address] [place] [address] Medical Oncologist Medical Oncology 06/13/21 Ambika Cain CF-FILM PROCESS OPERATOR Speech Language Pathologist Speech Pathology 10/06/23 documented as of this encounter
--- OUTSIDE RECORDS SUMMARY | 2024-05-03 13:34 | XMS_ITS ---
Author Organization [facility] Address [address] [place] [address] Care Team Providers Care Digital Composer Name Role Phone Michele Wright MD Primary Care Provider + [phone] Shun Hurst MD Unavailable [phone] Divine Carpenter MD Unavailable [phone] Ambika Cain CF-COTTON ACREAGE MEASURER Unavailable Unavailab le Active Problems Problem Noted Date Diagnosed Date Bilateral carotid artery stenosis 03/11/2023 Neuropathy of right upper extremity 03/11/2023 History of laryngeal cancer 09/10/2022 Second hand smoke exposure 07/28/2021 Good tolerance for activity 07/21/2021 Hx of deep venous thrombosis 04/04/2021 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 Past Plans Infusion Treatment 1 Plan Name Start Date Discontinue Date Treatment Medications Discontinue Reason Plan Provider (RESTRICTED)? TIXAGEVIMAB / CILGAVIMAB FOR PROPHYLAXIS 07/28/2021 03/23/2022 No medications scheduled. Other (See Comments) Divine Carpenter MD (RESTRICTED) TIXAGEVIMAB / CILGAVIMAB FOR PROPHYLAXIS 06/30/2021 07/28/2021 No medications scheduled. Therapy Complete Divine Carpenter MD Oncology Treatment Plan Name Start Date Discontinue Date Treatment Medications Discontinue Reason Plan Provider Cycles CARBOplatin / Fluorouracil Every 21 Days 03/10/20 21 03/23/2022 5-FU (Adrucil)5-FU (Adrucil) chemo infusion - for home use (VENDOR supplied)CARBO platin (Paraplatin)CA RBOplatin (Paraplatin) chemo IVPB (by AUC: GOG-COCKCROFT GAULT) Other (See Comments) Divine Carpenter MD 6 of 8 cycles started Cetuximab / CARBOplatin / Fluorouracil Every 21 Days 1 02/17/2021 CARBOplatin (Paraplatin)CA RBOplatin (Paraplatin) chemo IVPB (by AUC: GOG-COCKCROFT GAULT)cetuxima b (Erbitux) chemo IVPB Toxicity/Compl ication Divine Carpenter MD 2 of 6 cycles started [id number]: Pembrolizumab Every 42 Days Every 84 Days 03/14/20 20 11/25/2020 No medications scheduled. Progression Divine Carpenter MD 3 of 8 cycles started Radiation Treatments * Plan Last Treated On Elapsed Days Fractions Treated Prescribed Fraction Dose Prescribed Total Dose [id number] RTAx 12/20/2020 11 10 of 10 300 cGy 3,000 cG y Reference Point Last Treated On Elapsed Days Session Dose Total Dose Right Axilla 12/20/2020 11 300 cGy 3,000 cGy Lifetime Dose Tracking * Chemical Lifetime Dose Automatic Entry Manual Entr y Fluoro Time 5.3 minutes 5.3 minutes 0 minutes Air Kerma 130.3 mGy 130.3 mGy 0 mGy Air Kerma Area Product 2,131.24 ??Gym?? 2,131.24 ??Gym ?? 0 ??Gym?? Resolved Problems Problem Noted Date Diagnosed Date Resolved Date Second hand smoke exposure 06/30/2021 0 07/21/2021 Acute COVID-19 06/12/2021 06/16/2021 Dysphagia causing pulmonary aspiration with swallowing 04/22/2021 04/11/2022 Asymmetric SNHL (sensorineural hearing loss) 7 07/21/2021 Subjective tinnitus of left ear 04/07/2017 07/21/2021
--- OUTSIDE RECORDS SUMMARY | 2024-05-03 13:34 | XMS_ITS | Encounter Summary ---
Author Organization [facility] Address [address] [place], [place] [address] Care Team Providers Care Cover Inspector Name Role Phone Michele Wright MD Primary Care Provider + [phone] Shun Hurst MD Unavailable [phone] Divine Carpenter MD Unavailable [phone] Ambika Cain CF-PRIMARY TEACHER Unavailable Unavailab le Reason for Visit * Reason Comments Med Refill Encounter Details Date Type Department Care Team (Late st Contact Info) Description 04/20/2024 Refill [facility] Neck [facility] Respiratory 800 [facility], [address]nd [place] [address] Divine Carpenter MD 800 [facility] [address] [place] [address] Neoplasm related pain Social History Tobacco Use [...] as of this encounter Miscellaneous Notes * Telephone Encounter - Li Burch, RN - 04/21/2024 8:53 AM EST duplicate documented in this encounter Plan of Treatment Upcoming Encounters Date Type Department Care Team (Late st Contact Info) Description 07/17/2024 12:30 PM EST Clinical Support [facility]ck [facility] Respiratory 800 [facility], [address]nd [place] [address] 07/17/2024 1:30 PM EST Appointment [facility] Radiology [address] [place] [address] 07/20/2024 2:50 PM EST Office Visit [facility] Head[facility] Neck [facility] Respiratory 800 [facility], [address] [place] [address] Divine Carpenter MD 800 [facility] Diane [address] [place] [address] documented as of this encounter Visit Diagnoses [...] documented as of this encounter Care Teams Cover Inspector Relationship Specialty Start Date End Date Michele Wright MD [address] [place] [address] PCP - General 10/11/20 Shun Hurst MD [address] [facility] [address] [place] [address] Surgeon Neurosurgery 02/24/21 Divine Carpenter MD 800 [facility] [address] [place] [address] Medical Oncologist Medical Oncology 06/13/21 Ambika Cain CF-PRIMARY TEACHER Speech Language Pathologist Speech Pathology 10/06/23 documented as of this encounter
--- OUTSIDE RECORDS SUMMARY | 2024-05-03 13:34 | XMS_ITS | Encounter Summary ---
Author Organization Healthcare Address [address] [id number] Care Team Providers Care Avionics Electronics Technician Name Role Phone Michele Wright MD Primary Care Provider + [phone] Shun Hurst MD Unavailable [phone] Divine Carpenter MD Unavailable [phone] Ambika Cain CF-GUN REPAIR CLERK Unavailable Unavailab le Encounter Details Date Type Department Care Team (Late st Contact Info) Description 03/01/2024 Refill Pav [facility] Head, Neck & Respiratory [address] [place] [address] Prem Murillo, DIGITAL PROJECT COORDINATOR [facility] [address] [place] [address] Primary hypertension Social History Tobacco Use Types Packs/Day Years [...] Pav CC Head, Neck & Respiratory [address] [facility], 2nd [place] [address] 07/17/2024 1:30 PM EST Appointment PAV G Radiology [address] [place] [address] 07/20/2024 2:50 PM EST Office Visit Pav CC Head, Neck & Respiratory [address] [facility], 2nd [place] [address] Divine Carpenter MD [facility] [address] [facility] [address] [place] [address] documented as of this encounter Visit Diagnoses Diagnosis Primary hypertension Unspecified essential hypertension documented in this encounter Additional Health Concerns Assessment Noted Time A fall risk assessment has been complete d for the patient 01/17/2024 11:14 AM EDT A Body Mass Index follow-up plan has been documented for the patient 02/04/2024 11:58 AM EDT documented as of this encounter Care Teams Avionics Electronics Technician Relationship Specialty Start Date End Date Michele Wright MD [address] [place] [address] PCP - General 10/11/20 Shun Hurst MD [address] [facility] [address] [place] [address] Surgeon Neurosurgery 02/24/21 Divine Carpenter MD [address] [facility] Diane [address] [place] [address] Medical Oncologist Medical Oncology 06/13/21 Ambika Cain CF-GUN REPAIR CLERK Speech Language Pathologist Speech Pathology 10/06/23 documented as of this encounter
--- OUTSIDE RECORDS SUMMARY | 2024-05-03 13:34 | XMS_ITS | Encounter Summary ---
Author Organization Healthcare Address [address] [place] [address] Care Team Providers Care Floral Clerk Name Role Phone Michele Wright MD Primary Care Provider + [phone] Shun Hurst MD Unavailable [phone] Divine Carpenter MD Unavailable [phone] Ambika Cain CF-STRIPPING SHOVEL OPERATOR Unavailable Unavailab le Encounter Details Date Type Department Care Team ([facility] Contact Info) Description 02/15/2024 Orders Only Pav CC Head, Neck & Respiratory [address] [facility], 2nd [place] [address] Ambika Ambriz RN AMB-HEAD NECK AND RESPIRATORY [...] Pav CC Head, Neck & Respiratory [address] [facility], 2nd [place] [address] 07/17/2024 1:30 PM EST Appointment PAV G Radiology [address] [place] [address] 07/20/2024 2:50 PM EST Office Visit Pav CC Head, Neck & Respiratory [address] [place] [address] Divine Carpenter MD [address] [facility] [address] [place] [address] documented as of this encounter Visit Diagnoses Not on filedocumented in this encounter Additional Health Concerns Assessment Noted Time A fall risk assessment has been complete d for the patient 01/17/2024 11:14 AM EDT A Body Mass Index follow-up plan has been documented for the patient 02/04/2024 11:58 AM EDT documented as of this encounter Care Teams Floral Clerk Relationship Specialty Start Date End Date Michele Wright MD [address] [place] [address] PCP - General 10/11/20 Shun Hurst MD [address] [facility] [address] [place] [address] Surgeon Neurosurgery 02/24/21 Divine Carpenter MD [address] [facility] Diane Efrain [facility] [address] [place] [address] Medical Oncologist Medical Oncology 06/13/21 Ambika Cain CF-STRIPPING SHOVEL OPERATOR Speech Language Pathologist Speech Pathology 10/06/23 documented as of this encounter
--- OUTSIDE RECORDS SUMMARY | 2024-05-03 13:34 | XMS_ITS | Encounter Summary ---
Author Organization [facility] Address [address] [place] [address] Care Team Providers Care Ice Plant Operator Name Role Phone Michele Wright MD Primary Care Provider + [phone] Shun Hurst MD Unavailable [phone] Divine Carpenter MD Unavailable [phone] mAbika Cain CF-SAP PORTAL ARCHITECT Unavailable Unavailab le Encounter Details Date Type Department Care Team (Latest Contact Info) Description 02/04/2024 Travel Social History Tobacco Use Types Packs/Day Years [...] & Respiratory [address] [place] [address] 07/17/2024 1:30 PM EST Appointment PAV G Radiology [address] [place] [address] 07/20/2024 2:50 PM EST Office Visit Pav CC Head, Neck & Respiratory [address] [facility], 2nd [place] [address] Divine Carpenter MD [address] [facility] Diane [facility] [address] [place] [address] documented as of this encounter Visit Diagnoses Not on filedocumented in this encounter Additional Health Concerns Assessment Noted Time A fall risk assessment has been complete d for the patient 01/17/2024 11:14 AM EDT A Body Mass Index follow-up plan has been documented for the patient 02/04/2024 11:58 AM EDT documented as of this encounter Care Teams Ice Plant Operator Relationship Specialty Start Date End Date Michele Wrgiht MD [address] [place] [address] PCP - General 10/11/20 Shun Hurst MD [address] [facility] [address] [place] [address] Surgeon Neurosurgery 02/24/21 Divine Carpenter MD [address] [facility] Diane Rothmanrickson [facility] [address] [place] [address] Medical Oncologist Medical Oncology 06/13/21 Ambika Cain, CF-SAP PORTAL ARCHITECT Speech Language Pathologist Speech Pathology 10/06/23 documented as of this encounter
--- OUTSIDE RECORDS SUMMARY | 2024-05-03 13:34 | XMS_ITS | Encounter Summary ---
Author Organization Healthcare Address [address] [place], [place] [address] Care Team Providers Care Substation Operator Apprentice Name Role Phone Michele Wright MD Primary Care Provider + [phone] Shun Hurst MD Unavailable [phone] Divine Carpenter MD Unavailable [phone] Ambika Cain CF-SHADE MAKER Unavailable Unavailab le Reason for Visit * Reason Comments Med Refill Encounter Details Date Type Department Care Team (Late st Contact Info) Description 03/21/2024 Refill Pav CC Head, Neck & Respiratory 800 [facility], [address]nd [place] [address] Divine Carpenter MD 800 [facility] [address] [place] [address] Primary hypertension Social History Tobacco Use Types [...] Pav CC Head, Neck & Respiratory [address] [facility], [address]nd [place] [address] 07/17/2024 1:30 PM EST Appointment PAV G Radiology [address] [place] [address] 07/20/2024 2:50 PM EST Office Visit Pav CC Head, Neck & Respiratory [address] [facility], [address]nd [place] [address] Divine Carpenter MD 800 [facility] E[address] [facility] [address] [place] [address] documented as of this encounter Visit Diagnoses Diagnosis Primary hypertension Unspecified essential hypertension documented in this encounter Additional Health Concerns Assessment Noted Time A fall risk assessment has been complete d for the patient 01/17/2024 11:14 AM EDT A Body Mass Index follow-up plan has been documented for the patient 02/04/2024 11:58 AM EDT documented as of this encounter Care Teams Substation Operator Apprentice Relationship Specialty Start Date End Date Michele Wright MD [address] [place] [address] PCP - General 10/11/20 Shun Hurst MD [address] [facility] [address] [place] [address] Surgeon Neurosurgery 02/24/21 Divine Carpenter MD 800 [facility] Diane Efrain [address] [place] [address] Medical Oncologist Medical Oncology 06/13/21 Ambika Cain CF-SHADE MAKER Speech Language Pathologist Speech Pathology 10/06/23 documented as of this encounter
--- OUTSIDE RECORDS SUMMARY | 2024-05-03 13:35 | XMS_ITS | Encounter Summary ---
Author Organization Healthcare Address [address] [id number] Care Team Providers Care Fisheries Manager Name Role Phone Michele Wright MD Primary Care Provider + [phone] Edgar Szymanski MD Unavailable [phone] Shun Hurst MD Unavailable [phone] Divien Carpenter MD Unavailable [phone] Encounter Details Date Type Department Care Team (Late st Contact Info) Description 07/27/2023 Telephone [place] [facility] Pre[facility] [address], [address] [place] [address] Duarte Marin MD [address] [place] [address] Social History Tobacco Use Types Packs/Day Years [...] Pav CC Head, Neck & Respiratory 800 [facility], 2nd [place] [address] 07/17/2024 1:30 PM EST Appointment PAV G Radiology [address] [place] [address] 07/20/2024 2:50 PM EST Office Visit Pav CC Head, Neck & Respiratory 800 [facility], 2nd [place] [address] Divine Carpenter MD [address] [facility] Diane Zuniga [facility] [address] [place] [address] documented as of this encounter Visit Diagnoses Not on filedocumented in this encounter Additional Health Concerns Assessment Noted Time A fall risk assessment has been complete d for the patient 07/12/2023 10:42 AM EST A Body Mass Index follow-up plan has been documented for the patient 07/23/2023 4:38 PM EST documented as of this encounter Care Teams Fisheries Manager Relationship Specialty Start Date End Date Michele Wright MD [address] [place], [place] [address] PCP - General 10/11/20 Edgar Szymanski MD 800 [facility] [address] [place] [address] Radiation Oncologist Radiation Therapy 03/14/20 4 Shun Hurst MD [address] [facility] [address] [place] [address] Surgeon Neurosurgery 02/24/21 Divine Carpenter MD 800 [facility] Diane Zuniga [facility] [address] [place] [address] Medical Oncologist Medical Oncology 06/13/21 documented as of this encounter
--- OUTSIDE RECORDS SUMMARY | 2024-05-03 13:35 | XMS_ITS | Encounter Summary ---
Author Organization [facility] Address [address] [place] [address] Care Team Providers Care Electrical Prospecting Observer Name Role Phone Michele Wright MD Primary Care Provider + [phone] Shun Hurst MD Unavailable [phone] Divine Carpenter MD Unavailable [phone] Ambika Cain CF-RAISE MINER Unavailable Unavailab le Reason for Visit * Reason Onset Date Comments Med Refill 11/26/2023 Encounter Details Date Type Department Care Team (Late Contact Info) Description 11/26/2023 Refill Pav CC Head, Neck & Respiratory 800 [facility] 2nd [place] [address] Li Burch, RN Neoplasm related pain (Primary Dx) Social History Tobacco Use Types Packs/Day Years Used Date Smoking Tobacco: Former Cigarettes 2 10 1 - 2000 Smokeless Tobacco: Never Alcohol [...] Pav CC Head, Neck & Respiratory 800 [facility], 2nd [place] [address] 07/17/2024 1:30 PM EST Appointment PAV G Radiology [address] [place] [address] 07/20/2024 2:50 PM EST Office Visit Pav CC Head, Neck & Respiratory 800 [facility], [address]nd [place] [address] Divine Carpenter MD 800 [facility] [address] [place] [address] documented as of this encounter Visit Diagnoses Diagnosis 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) documented in this encounter Additional Health Concerns Assessment Noted Time A fall risk assessment has been complete d for the patient 07/12/2023 10:42 AM EST A Body Mass Index follow-up plan has been documented for the patient 07/23/2023 4:38 PM EST documented as of this encounter Care Teams Electrical Prospecting Observer Relationship Specialty Start Date End Date Michele Wright MD [address] [place] [address] PCP - General 10/11/20 Shun Hurst MD [address] [facility] [address] [place] [address] Surgeon Neurosurgery 02/24/21 Divine Carpenter MD 800 [facility] Diane Zuniga [facility] [address] [place] [address] Medical Oncologist Medical Oncology 06/13/21 Ambika Cain CF-RAISE MINER Speech Language Pathologist Speech Pathology 10/06/23 documented as of this encounter
--- OUTSIDE RECORDS SUMMARY | 2024-05-03 13:35 | XMS_ITS | Encounter Summary ---
Author Organization [facility] Address [address] [place] [address] Care Team Providers Care Habilitative Interventionist Name Role Phone Michele Wright MD Primary Care Provider + [phone] Edgar Szymanski MD Unavailable [phone] Shun Hurst MD Unavailable [phone] Divine Carpenter MD Unavailable [phone] Reason for Visit * Reason Onset Date Comments Med Refill 09/06/2023 Encounter Details Date Type Department Care Team (Late st Contact Info) Description 09/06/2023 Refill Pav CC Head, Neck & Respiratory [address] [place] [address] Ambika Ambriz, RN AMB-HEAD NECK AND RESPIRATORY CLINIC Primary hypertension Social History Tobacco Use Types [...] Pav CC Head, Neck & Respiratory [address] [facility], 2nd [place] [address] 07/17/2024 1:30 PM EST Appointment PAV G Radiology [address] [place] [address] 07/20/2024 2:50 PM EST Office Visit Pav CC Head, Neck & Respiratory [address] [facility], 2nd [place] [address] Divine Carpenter MD [address] [facility] Diane Zuniga [facility] [address] [place] [address] documented as of this encounter Visit Diagnoses Diagnosis Primary hypertension Unspecified essential hypertension documented in this encounter Additional Health Concerns Assessment Noted Time A fall risk assessment has been complete d for the patient 07/12/2023 10:42 AM EST A Body Mass Index follow-up plan has been documented for the patient 07/23/2023 4:38 PM EST documented as of this encounter Care Teams Habilitative Interventionist Relationship Specialty Start Date End Date Michele Wright MD [address] [place] [address] PCP - General 10/11/20 Edgar Szymanski MD [address] [facility] [address] [place] [address] Radiation Oncologist Radiation Therapy 03/14/20 4 Shun Hurst MD [address] [facility] [address] [place] [address] Surgeon Neurosurgery 02/24/21 Divine Carpenter MD [address] [facility] Diane Zuniga [facility] [address] [place] [address] Medical Oncologist Medical Oncology 06/13/21 documented as of this encounter
--- OUTSIDE RECORDS SUMMARY | 2024-05-03 13:35 | XMS_ITS | Encounter Summary ---
Author Organization [facility] Address [address] [place], [place] [id number] Care Team Providers Care Property Custodian Name Role Phone Michele Wright MD Primary Care Provider + [phone] Edgar Szymanski MD Unavailable [phone] Shun Hurst MD Unavailable [phone] Divine Carpenter MD Unavailable [phone] Reason for Visit * Reason Onset Date Comments [facility] Lab/home Health 08/06/2023 Encounter Details Date Type Department Care Team (Late st Contact Info) Description 08/06/2023 Telephone Pav CC Head, Neck & Respiratory 800 [facility], 2nd [place] [address] Divine Carpenter MD 800 [facility] [address] [place] [address] [facility] Lab/home Health Social History Tobacco Use Types Packs/Day Years [...] encounter Miscellaneous Notes * Telephone Encounter - Lyn Jorgensen, RN - 08/06/2023 4:10 PM EST Returned phone call and spoke with Kylie at [facility]. She states a Port flush order is needed for patient coming in Wednesday. Order faxed to facility * Telephone Encounter - Nedra Babcock - 08/06/2023 10:13 AM EST Lab /Home Health Orders Patient: Anibal Barreto Type of Order: Monthly port Flush (due to come in Wednesday) Company and Caller Name: [facility] Fax Number (if outside [place]): [phone] Best contact number: [phone] Optimal time of day to reach caller: ANYTIME Additional comments/information from caller: They are needing a new Monthly Port Flush order as theprevious one in May Note: Please do not reply to this message. Follow-up communication and further actions as a result of this message need to be communicated with the patient directly, if the patient is not active onMyChart. If the patient is active on MyChart, they will receive notification of the communication/outcome via [employer]. documented in this encounter Plan of Treatment Upcoming Encounters Date Type Department Care Team (Late st Contact Info) Description 07/17/2024 12:30 PM EST Clinical Support Pav CC Head, Neck & Respiratory [address] [place] [address] 07/17/2024 1:30 PM EST Appointment PAV G Radiology [address] [place] [address] 07/20/2024 2:50 PM EST Office Visit Pav CC Head, Neck & Respiratory [address], [address] [place] [address] Divine Carpenter MD [address] Diane Zun[address] [place] [address] documented as of this encounter Visit Diagnoses Not on filedocumented in this encounter Additional Health Concerns Assessment Noted Time A fall risk assessment has been complete d for the patient 07/12/2023 10:42 AM EST A Body Mass Index follow-up plan has been documented for the patient 07/23/2023 4:38 PM EST documented as of this encounter Care Teams Property Custodian Relationship Specialty Start Date End Date Michele Wright MD [address] [place] [address] PCP - General 10/11/20 Edgar Szymanski MD [address] [facility] [address] [place] [address] Radiation Oncologist Radiation Therapy 03/14/20 4 Shun Hurst MD [address] [place] [address] Surgeon Neurosurgery 02/24/21 Divine Carpenter MD [address] [place] Diane Rothmanrickson [facility] [address] [place] [address] Medical Oncologist Medical Oncology 06/13/21 documented as of this encounter
--- OUTSIDE RECORDS SUMMARY | 2024-05-03 13:35 | XMS_ITS | Encounter Summary ---
Author Organization Healthcare Address [address] [id number] Care Team Providers Care Helmet Coverer Name Role Phone Michele Wright MD Primary Care Provider [phone] Edgar Szymanski MD Unavailable [phone] Shun Hurst MD Unavailable [phone] Divine Carpenter MD Unavailable [phone] Reason for Visit * Auth/Cert (Routine) Specialty Diagnoses / Procedures Referred By Contac t Referred To Contact Diagnoses Esophageal stenosis Esophageal stenosis Procedures [place] ESOPHAGOSCOPY FLEXIBLE TRANSORAL DIAGNOSTIC [place] ESOPHAGOSCOPY FLEXIBLE TRANSORAL DIAGNOSTIC [place] ESOPHAGOSCOPY FLEX BALLOON DILAT <30 MM DIAM [place] ESOPHAGOSCOPY DILATE ESOPHAGUS BALLOON 30 MM FLEXIBLE ESOPHAGOSCOPY WITH BALLOON DILATION , SUPER DILATION . . Gil Hernandez MD [address] [facility] [address] [place] [address] Phone: tel: fax: [facility] [address] [place] [phone] Phone: tel: Referral ID Status Reason Start Date Expiration Date Visits Re quested Visits Authorized [id number] 1 1 Encounter Details Date Type Department Care Team (Late st Contact Info) Description 07/30/2023 1:55 PM EST Anesthesia Event [facility] [address] [place] [address] Denae Rdz MD [address] [place] [address] Anesthesia Record Procedure Summary Procedure Name Responsible Anesthesiologist Anesthesia Start Time Anesthesia Stop Time FLEXIBLE ESOPHAGOSCOPY WITH BALLOON DILATION , SUPER DILATION . Denae Rdz MD 07/30/23 1355 07/30/23 1451 Events Date Time Event Comment 07/30/2023 1339 1355 In Room 1355 An Start 1355 An Start Data 1359 An Induction The patient was reevaluated immediately before moderate or deep sedation use and before anesthesia induction. 1404 An Intubation 1407 Anesthesia Ready 1409 Proc Start 1429 Proc Fin 1442 An Extubation 1446 an stop data 1447 Out of Room 1451 Handoff to Receiving I compl eted my handoff to the receiving clinician during which we: 1. Identified the patient 2. Identified the responsible provider 3. Reviewed the pertinent medical history 4. Discussed the surgical course 5. Reviewed intra-op anesthesia management and issues during anesthesia 6. Set expectations for post-procedure period 7. Allowed opportunity for questions and acknowledgement of understanding. 1451 An Stop Meds Name Total fentaNYL (Sublimaze) injection 50 mcg/mL 50 mcg lidocaine PF (Xylocaine-MPF) 2% 80 mg propofol (Diprivan) injection 10 mg/mL 2 00 mg rocuronium (ZeMuron) injection 10 mg/mL 20 mg dexamethasone (Decadron) injection 4 mg/ mL 8 mg ePHEDrine injection prefilled syringe 5 mg/mL 10 mg phenylephrine (Scott-Synephrine) prefilled syringe 1 mg/10 mL 200 mcg ondansetron (Zofran) injection 2 mg/mL 4 mg sugammadex (Bridion) injection 100 mg/mL 200 mg clindamycin (Cleocin) 900 mg in 50 mL (p remix) 900 mg lactated Ringer's infusion 0 mL * Agents No agents on file. * Blood No blood administrations on file. Lines, Drains, and Airways Type Details Placement Removal Single Lumen Implantable Port 03/06/21; 1229; Yes; 03/06/21; Other (Comment); Yes; Yes; Left; Chest; Kwabena Waits 03/06/21 1229 by Radha Norwood, repeat chief 07/24/21; Throat 07/24/21 0000 b y Oma Lyons RN Wound 02/19/22; 1014; Yes; Other; Throat (flexible esophagoscopy) 02/19/22 1014 by Guillermina Sanchez RN Wound 07/30/23; N; Yes; Incision; Throat 07/30/23 0000 by Dalila Srinivasan RN Peripheral IV Placement Date: 07/30/23; Placement Time: 1240; Catheter Size: 20 G; Orientation: Distal, Posterior, Right; Location: Forearm; Site Prep: Alcohol; Local Anesth: None; Technique: Anatomical landmarks; Inserted by: JONATHAN Colon; Insertion Attempts: 1; Patient Tolerance: Tolerated well; Removal Date: 07/30/23; Removal Time: 1524; Removal Reason: Discharge 07/30/23 1240 by Darlene George RN 07/30/23 1524 by Macarena Red RN ETT Placement Date: 07/30/23; Placement Time: 1404 (created via procedure documentation); Mask Ventilation: 0; Technique: Direct laryngoscopy; Type: ETT - single; Single Lumen Tube Size: 5 mm; Cuffed: Yes; Laryngoscope: La; Blade Size: 3; Location: Tracheostomy (jessica tube); Grade View: Grade I; Insertion Attempts: 1; Placement Verification: Auscultation, Capnometry; Airway Comments: Atraumatic. No change to dentition. ; Placed by: NUTRITIONAL HEALTH COACH; Removal Date: 07/30/23; Removal Time: 1446 07/30/23 1404 by Davion Arana CRNA 07/30/23 1446 by Davion Arana CRNA documented in this encounter Social History Tobacco Use Types Packs/Day Years [...] as of this encounter Miscellaneous Notes * Anesthesia Postprocedure Evaluation - Davion Arana CRNA - 07/30/2023 2:51 PM EST Patient: Anibal Barreto Anesthesia Type: general Vitals Value Taken Time BP 188/80 07/30/23 1451 Temp 97.5F 07/30/23 1451 Pulse 74 07/30/23 1451 Resp 14 07/30/23 1451 SpO2 100 07/30/23 1451 Anesthesia Post Evaluation Patient location during evaluation: PACU Patient participation: complete - patient participated Level of consciousness: awake Pain management: adequate (pain score 0-3) Airway patency: natural airway Cardiovascular status: acceptable Respiratory status: acceptable, nonlabored ventilation, face mask, spontaneous ventilation and unassisted Hydration status: acceptable Comments: vss No notable events documented. * Anesthesia Procedure Notes - Davion Arana CRNA - 07/30/2023 2:11 PM EST Associated Order(s): Airway Airway Date/Time: 07/30/2023 2:04 PM Urgency: elective Airway not difficult General Information and Staff Patient location during procedure: OR NUTRITIONAL HEALTH COACH: Davion Arana CRNA Performed: NUTRITIONAL HEALTH COACH Indications and Patient Condition Indications for airway management: anesthesia Spontaneous Ventilation: absent Preoxygenated: yes Patient position: sniffing Mask difficulty assessment: 0 - not attempted Final Airway Details Final airway type: endotracheal airway Successful airway: ETT and MATH TEACHER Cuffed: yes Successful intubation technique: direct laryngoscopy Endotracheal tube insertion site: tracheostomy (jessica tube) Blade: La Blade size: #3 ETT size (mm): 5.0 Cormack-Lehane Classification: grade I - full view of glottis Placement verified by: chest auscultation and capnometry Cuff volume (mL): 8 Measured from: stoma ETT to stoma (cm): 2 Number of attempts at approach: 1 Ventilation between attempts: none Number of other approaches attempted: 0 Additional Comments Atraumatic. No change to dentition. * Anesthesia Preprocedure Evaluation - Denae Rdz MD - 07/30/2023 1:31 PM EST Images from the original note were not included. Patient: Anibal Barreto Procedure Information Date/Time: 07/30/23 1250 Procedures: FLEXIBLE ESOPHAGOSCOPY WITH BALLOON DILATION , SUPER DILATION . . 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 Last dilation 01/2022 with good effect. Last received chemo 2021. 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 Smoking status: Former Packs/day: 2.00 Years: 10.00 Additional pack years: 0.00 Total pack years: 20.00 Types: Cigarettes Start date: 1990 Quit date: 2000 Years since quittin.1 ??? Smokeless tobacco: Never Vaping Use ??? Vaping Use: Never used Substance Use Topics ??? Alcohol use: Not Currently Comment: Alcoholic Drinks/day: Quit consuming alcohol in remote past ??? Drug use: Not Currently Types: Morphine Allergies Allergen Reactions ??? Cetuximab Anaphylaxis SOA, hypotension, after 9 ml of drug ??? Docetaxel Rash, Shortness of breath and Unknown - Patient states they do not know rxn details Patient very dyspnic, flushed, severe back pain. Patient very dyspnic, flushed, severe back pain. Patient very dyspnic, flushed, severe back pain. ??? Methadone Rash and Other - please document in the comment field Anes hx: -- denies anesthetic concerns Date Procedure Difficult Airway Blade Size ETT Size C-L Class Final Type 02/19/22 LARYNGOSCOPY,FLEXIBLE ESOPHAGOSCOPY,WITH LESION DESTRUCTION USING CO2 LASER / ESOPHAGEAL BALLOON DILATION - POSS SUPER DILATION / VOCAL FOLD INJECTION OF STEROIDS No 3 5.0 endotracheal airway 07/24/21 FLEXIBLE ESOPHAGOSCOPY WITH BALLOON DILATION, POSS INJECTION OF STEROIDS, POSS ESOPHGEAL SUPER DILATION No other 03/06/21 IR PORT PLACEMENT 5+ YEARS No endotracheal airway Labs: Lab Results Component Value Date WBC 5.85 07/09/2023 HGB 14.6 07/09/2023 HCT 45.7 07/09/2023 MCV 88 07/09/2023 PLT 151 (L) 07/09/2023 Lab Results Component Value Date INR 1.0 06/12/2021 INR 1.0 03/06/2021 INR 1.2 (H) 03/22/2018 Lab Results Component Value Date GLUCOSE 119 (H) 07/09/2023 BUN 15 07/09/2023 CREATININE 0.97 07/09/2023 BCR 15 07/09/2023 NA 143 07/09/2023 K 4.0 07/09/2023 CL 103 07/09/2023 CO2 28 07/09/2023 CA 9.3 10/14/2020 ALBUMIN 4.1 07/09/2023 ALKPHOS 79 07/09/2023 BILITOT 0.8 07/09/2023 EKG 2021: sinus bradycardia, HR 55 Echo 2018: The LV global longitudinal strain, based upon 2D speckle-tracking, is probably normal (>-16.5%). The right ventricular systolic function is normal. The ascending aorta is 4.1 cm in diameter, at the maximal area visualized. Moderate (40-49mm) aortic root dilatation. There is no pericardial effusion. Anesthesia Evaluation Clinical information reviewed: Past Surgical History: Procedure Laterality Date ??? ESOPHAGEAL DILATION x2 ??? ESOPHAGOGASTRODUODENOSCOPY N/A Esophagogastroduodenoscopy from [facility] ??? FEEDING TUBE PLACEMENT N/A Now removed ??? LARYNGOSCOPY N/A Laryngoscopy from [facility] ??? LARYNGOSCOPY 02/19/2022 ??? LUNG SURGERY ??? OTHER SURGICAL HISTORY N/A Neck dissection modified radical from [facility] ??? OTHER SURGICAL HISTORY N/A Percutaneous endoscopic gastrostomy tube removal from [facility] ??? OTHER SURGICAL HISTORY N/A Laryngectomy from [facility] ??? OTHER SURGICAL HISTORY N/A Trachectomy from [facility] ??? PARTIAL LARYNGECTOMY ??? TRACHEOSTOMY TUBE PLACEMENT Family History Problem Relation Name Age of Onset ??? Stroke Father ??? Kidney failure Father FH: kidney failure ??? Liver cancer Mother FH: liver cancer ??? Breast cancer Sister ??? Uterine cancer Sister ??? Heart attack Sister ??? Uterine cancer Sister FH: uterine cancer ??? Anesthesia problems Neg Hx ??? Malig Hyperthermia Neg Hx Current Medications Medication Instructions ??? ALPRAZolam (Xanax) 1 MG tablet Take morning of surgery ??? amLODIPine (Norvasc) 2.5 MG tablet Take morning of surgery ??? atorvastatin (Lipitor) 20 MG tablet Take morning of surgery ??? gabapentin (Neurontin) 600 MG tablet Take morning of surgery ??? levothyroxine (Synthroid, Levoxyl) 125 MCG tablet Take morning of surgery ??? lisinopril-hydroCHLOROthiazide 20-25 MG tablet Hold day of surgery ??? omeprazole (PriLOSEC) [address] capsule Take morning of surgery ??? oxyCODONE (Roxicodone) 30 MG immediate release tablet Take as needed ??? tamsulosin (Flomax) 0.4 MG 24 hr capsule Take night before surgery NPO Status >8hr Physical Exam Airway Tracheostomy tube present Comments: Laryngectomy tube in situ, uncuffed Cardiovascular - normal exam Rhythm: regular Rate: normal Dental - normal exam (+) edentulous Pulmonary - normal exam Breath sounds clear to auscultation (-) rhonchi, wheezes Neurological - normal exam Oriented: normal to time, normal to place and normal to person and oriented to person, place and time Skin - normal exam Skin: warm and dry Musculoskeletal - normal exam Extremities -normal exam Anesthesia Plan ASA 3 Plan was reviewed with: NUTRITIONAL HEALTH COACH Anesthesia technique(s) discussed with the patient/family: general Anesthesia plan agreed upon was: general Anesthetic plan and risks discussed with patient. Comment: Surgeon requests 5.0 MATH TEACHER via laryngectomy stoma. Additional Equipment Requests Tube Size: 5.0 documented in this encounter Plan of Treatment Upcoming Encounters Date Type Department Care Team (Late st Contact Info) Description 07/17/2024 12:30 PM EST Clinical Support [facility] Res[facility] [address] [facility], [address]nd [place] [address] 07/17/2024 1:30 PM EST Appointment [facility] Radiology [address] [place] [address] 07/20/2024 2:50 PM EST Office Visit [facility] Head[facility] Neck [facility] Respiratory [address] [facility] [place] [address] Divine Carpenter MD [address] [facility] [address] [place] [address] documented as of this encounter Procedures Procedure Name Priority Date/Time Associated Diagnosis Comments PB ANESTHESIA PLACEHOLDER Routine 07/30/2023 2:04 PM EST [place] AN ELECTIVE ENDOTRACHEAL AIRWAY Routine 07/30/2023 2:04 PM EST documented in this encounter Results * [place] AN ELECTIVE ENDOTRACHEAL AIRWAY, PB ANESTHESIA PLACEHOLDER (07/30/2023 2:04 PM EST) Narrative Davion Arana CRNA - 07/30/2023 2:04 PM EST Davion Arana CRNA ? 07/30/2023 ??2:12 PM Airway Date/Time: 07/30/2023 2:04 PM Urgency: elective Airway not difficult General Information and Staff Patient location during procedure: OR NUTRITIONAL HEALTH COACH: Davion Arana CRNA Performed: DIANE Indications and Patient Condition Indications for airway management: anesthesia Spontaneous Ventilation: absent Preoxygenated: yes Patient position: sniffing Mask difficulty assessment: 0 - not attempted Final Airway Details Final airway type: endotracheal airway Successful airway: ETT and MATH TEACHER Cuffed: yes Successful intubation technique: direct laryngoscopy Endotracheal tube insertion site: tracheostomy (jessica tube) Blade: La Blade size: #3 ETT size (mm): 5.0 Cormack-Lehane Classification: grade I - full view of glottis Placement verified by: chest auscultation and capnometry Cuff volume (mL): 8 Measured from: stoma ETT to stoma (cm): 2 Number of attempts at approach: 1 Ventilation between attempts: none Number of other approaches attempted: 0 Additional Comments Atraumatic. No change to dentition. Denae Rdz MD ANESTHESIA ORDERABLES Final Resu lt documented in this encounter Visit Diagnoses Not on filedocumented in this encounter Administered Medications Inactive Administered Medications - up to 3 most recent administrations Medication Order MAR Action Action Date Dose Rate Site clindamycin (Cleocin) IV solution Intravenous, As needed, Starting on Wed07/30/23 at 1410, Until Wed07/30/23 at 1451, Routine, Anesthesia Intraprocedure New Bag 07/30/2023 2:10 PM EST 900 mg dexamethasone (Decadron) injection Intravenous, As needed, Starting on Wed07/30/23 at 1409, Until Wed07/30/23 at 1451, Routine, Anesthesia Intraprocedure Given 07/30/2023 2:09 PM EST 8 mg ePHEDrine Sulfate injection Intravenous, As needed, Starting on Wed07/30/23 at 1409, Until Wed07/30/23 at 1451, Routine, Anesthesia Intraprocedure Given 07/30/2023 2:09 PM EST 10 mg fentaNYL (Sublimaze) injection Intravenous, As needed, Starting on Wed07/30/23 at 1359, Until Wed07/30/23 at 1451, Routine, Anesthesia Intraprocedure Given 07/30/2023 1:59 PM EST 50 mcg lactated Ringer's infusion Intravenous, Continuous PRN, Starting on Wed07/30/23 at 1358, Until Wed07/30/23 at 1451, Routine New Bag 07/30/2023 1:58 PM EST lidocaine PF (Xylocaine) 2 % injection Intravenous, As needed, Starting on Wed07/30/23 at 1359, Until Wed07/30/23 at 1451, Routine, Anesthesia Intraprocedure Given 07/30/2023 1:59 PM EST 80 mg ondansetron (Zofran) injection Intravenous, As needed, Starting on Wed07/30/23 at 1409, Until Wed07/30/23 at 1451, Routine, Anesthesia Intraprocedure Given 07/30/2023 2:09 PM EST 4 mg phenylephrine in NS (Scott-Synephrine) 100 mcg/mL prefilled syringe Intravenous, As needed, Starting on Wed07/30/23 at 1414, Until Wed07/30/23 at 1451, Routine, Anesthesia Intraprocedure Given 07/30/2023 2:14 PM EST 200 mcg propofol (Diprivan) injection Intravenous, As needed, Starting on Wed07/30/23 at 1359, Until Wed07/30/23 at 1451, Routine, Anesthesia Intraprocedure Given 07/30/2023 1:59 PM EST 200 mg rocuronium (ZeMuron) injection Intravenous, As needed, Starting on Wed07/30/23 at 1359, Until Wed07/30/23 at 1451, Routine, Anesthesia Intraprocedure Given 07/30/2023 1:59 PM EST 20 mg sugammadex (Bridion) 200 MG/2ML injection Intravenous, As needed, Starting on Wed07/30/23 at 1431, Until Wed07/30/23 at 1451, Routine, Anesthesia Intraprocedure Given 07/30/2023 2:31 PM EST 200 mg documented in this encounter Additional Health Concerns Assessment Noted Time A fall risk assessment has been complete d for the patient 07/12/2023 10:42 AM EST A Body Mass Index follow-up plan has been documented for the patient 07/23/2023 4:38 PM EST documented as of this encounter Care Teams Helmet Coverer Relationship Specialty Start Date End Date Michele Wright MD [address], [place] [id number] PCP - General 10/11/20 Edgar Szymanski MD [address] [place] [phone] Radiation Oncologist Radiation Therapy 03/14/20 4 Shun Hurst MD [address] [place] [address] Surgeon Neurosurgery 02/24/21 Divine Carpenter MD [address] [facility] [address] [address] Medical Oncologist Medical Oncology 06/13/21 documented as of this encounter
--- OUTSIDE RECORDS SUMMARY | 2024-05-03 13:35 | XMS_ITS | Encounter Summary ---
Author Organization [facility] Address [address] [place] [id number] Care Team Providers Care Veterinarian Epidemiologist Name Role Phone Michele Wright MD Primary Care Provider [phone] Edgar Szymanski MD Unavailable [phone] Shun Hurst MD Unavailable [phone] Divine Carpenter MD Unavailable [phone] Reason for Referral * Consultation (Routine) - Authorized Specialty Diagnoses / Procedures Referred By Contac t Referred To Contact Infusion Clinic Diagnoses History of laryngeal cancer Divine Carpenter MD [address] [facility] [address] [place] [address] Phone: tel: fax: Referral ID Status Reason Start Date Expiration Date Visits Requested Visits Authorized [id number] Authorized Consult and Treat 08/06/2023 02/04/2025 1 1 Encounter Details Date Type Department Care Team (Late st Contact Info) Description 08/06/2023 Orders Only [facility] Head[facility] Neck [facility] Respiratory [address] [facility] [place] [phone] Lyn Jorgensen, RN [facility] History of laryngeal cancer (Primary Dx) Social History Tobacco Use Types [...] & Respiratory [address], [address] [place] [address] 07/17/2024 1:30 PM EST Appointment [facility]iology [address] [place] [address] 07/20/2024 2:50 PM EST Office Visit [facility] Head[facility]ck [facility] Respiratory [address] [place] [address] Divine Carpenter MD [address] [facility] [address] [place] [address] Scheduled Referrals Name Type Priority Associated Diagnoses Orde r Schedule PORT/PICC Line Care Outpatient Referral Routine History of laryngeal cancer monthly for 12 Occurrences starting 08/06/2023 until 02/05/2025 documented as of this encounter Visit Diagnoses Diagnosis History of laryngeal cancer- Primary Personal history of malignant neoplasm of larynx documented in this encounter Additional Health Concerns Assessment Noted Time A fall risk assessment has been complete d for the patient 07/12/2023 10:42 AM EST A Body Mass Index follow-up plan has been documented for the patient 07/23/2023 4:38 PM EST documented as of this encounter Care Teams Veterinarian Epidemiologist Relationship Specialty Start Date End Date Michele Wright MD [address] [place] [address] PCP - General 10/11/20 Edgar Szymanski MD [address] [place] [phone] Radiation Oncologist Radiation Therapy 03/14/20 4 Shun Hurst MD [address] [facility] [address] [place] [address] Surgeon Neurosurgery 02/24/21 Divine Carpenter MD [address] [facility] [address] [place] [address] Medical Oncologist Medical Oncology 06/13/21 documented as of this encounter
--- OUTSIDE RECORDS SUMMARY | 2024-05-03 13:35 | XMS_ITS | Encounter Summary ---
Author Organization Healthcare Address [address] [id number] Care Team Providers Care Bus Girl Name Role Phone Michele Wright MD Primary Care Provider [phone] Edgar Szymanski MD Unavailable [phone] Shun Hurst MD Unavailable [phone] Divine Carpenter MD Unavailable [phone] Reason for Visit * Auth/Cert (Routine) Specialty Diagnoses / Procedures Referred By Contac t Referred To Contact Diagnoses Esophageal stenosis Esophageal stenosis Procedures AK ESOPHAGOSCOPY FLEXIBLE TRANSORAL DIAGNOSTIC AK ESOPHAGOSCOPY FLEXIBLE TRANSORAL DIAGNOSTIC AK ESOPHAGOSCOPY FLEX BALLOON DILAT <30 MM DIAM AK ESOPHAGOSCOPY DILATE ESOPHAGUS BALLOON 30 MM FLEXIBLE ESOPHAGOSCOPY WITH BALLOON DILATION , SUPER DILATION . . Gil Hernandez MD [address] [employer] [address] [address] Phone: tel: fax: [facility] [address] [place] [address] Phone: tel: Referral ID Status Reason Start Date Expiration Date Visits Re quested Visits Authorized [id number] 1 1 Encounter Details Date Type Department Care Team (Late st Contact Info) Description 07/30/2023 12:50 PM EST - 07/30/2023 1:45 PM EST Surgery [facility] [address] [place] [address] Gil Hernandez MD [address] [address] FLEXIBLE ESOPHAGOSCOPY WITH BALLOON DILATION , SUPER DILATION . Surgery Details Date/Time Status Location OR Service Patient Class Case Class Case Type Trauma Case? 07/30/2023 12:50 PM Posted [facility] OR 4OR[facility] Outpatient Surgery E-Electiv e Panel 1 Procedure LRB Anes Op Region Wound Class Comments FLEXIBLE ESOPHAGOSCOPY WITH BALLOON DILATION , SUPER DILATION . N/A and suspension esophagoscopy Surgeon Surgeon Role Service Panel Maryellen Rivera MD Resident - Assisting ENT 1 Gil Hernandez MD Primary ENT 1 documented in this encounter Social History Tobacco [...] PM EDT documented as of this encounter Last Filed Vital Signs Vital Sign Reading Time Taken Comments Blood Pressure 191/84 07/30/2023 11:23 AM EST Pulse 75 07/30/2023 11:23 AM EST Temperature 36.2 ??C (97.2 ??F) 07/30/2023 11:[address] Respiratory Rate 20 07/30/2023 11:23 AM EST Oxygen Saturation 96% 07/30/2023 11:23 AM EST Inhaled Oxygen Concentration - - Weight 104 kg (230 lb 6.1 oz) 07/30/2023 11:23 A M EST Height 180.3 cm (5' 11 ) 07/30/2023 11:23 AM EST Body Mass Index 32.13 07/30/2023 11:23 AM EST documented in this encounter Discharge Instructions * Discharge Instructions* Macarena Red RN - 07/30/2023 12:14 PM EST 1) Diet: You can advance diet as tolerated 2) Activity: No restrictions 3) Wound care: It is normal to have some blood tinged saliva, but if you cough up more than a tablespoon of blood please call our office or proceed directly to the ER 4) Medications: Take tylenol 1000mg and ibuprofen 600mg every 6 hours for pain 5) After this procedure you do not need voice rest, though you should attempt not to yell or speak any louder than a conversational tone 6) Call if: you have a fever > 101.5F, difficulty breathing, are vomiting, unable to tolerate diet, or your pain cannot be controlled with oral medications You will follow up as below Future Appointments Date Time Provider Department Center 09/09[facility]2023 1:20 PM [facility] NAJMA Agarwal 01/10/2024 11:[address] [facility] 01/13/2024 10:30 AM Divine Carpenter MD [facility] Third Floor, [facility], [address] [address] Call [phone] * Attachments The following attachments cannot be sent through Care Everywhere. * Sedation, Procedural (Adult) (Setswana) * Esophagectomy Discharge Instructions () (Setswana) documented in this encounter Medications at Time of Discharge lidocaine (Xylocaine) 2 % solution 03/31/2023 ondansetron (Zofran) 8 MG tablet Take 1 tablet (8 mg) by mouth 2 (two) times a day. Starting day after chemo for 3 days. 30 tablet 5 07/12/2023 ALPRAZolam (Xanax) 1 MG tablet Take 1 tablet (1 mg) by mouth 2 (two) times a day. 60 tablet 2 07/12/2023 09/06/2023 amLODIPine (Norvasc) 2.5 MG tablet Take 1 tablet (2.5 mg) by mouth 1 (one) time each day. 05/19/2023 09/06/2023 atorvastatin (Lipitor) 20 MG tablet Take 1 tablet (20 mg) by mouth 1 (one) time each day. 05/20/2023 08/09/2023 gabapentin (Neurontin) 600 MG tablet Take 1 tablet (600 mg) by mouth 4 (four) times a day. 120 tablet 1 07/12/2023 09/06/2023 levothyroxine (Synthroid, Levoxyl) 125 MCG tablet Take 1 tablet (125 mcg) by mouth 1 (one) time each day. 30 tablet 2 07/12/2023 09/06/2023 lisinopril-hydro CHLOROthiazide 20-25 MG tablet Take 1 tablet by mouth 1 (one) time each day. 05/19/2023 08/30/2023 omeprazole (PriLOSEC) [address] capsule TAKE 1 CAPSULE BY MOUTH EVERY DAY 90 capsule 2 10/05/2022 10/05/2023 oxyCODONE (Roxicodone) 30 MG immediate release tablet Take 1 tablet (30 mg) by mouth every 3 (three) hours if needed for severe pain. 240 tablet 07/12/2023 08/10/2023 tamsulosin (Flomax) 0.4 MG 24 hr capsule TAKE 1 CAPSULE BY MOUTH EVERY NIGHT TO HELP WITH URINE FLOW 30 capsule 02/25/2022 03/01/2024 documented as of this encounter Miscellaneous Notes * Op Note - Gil Hernandez MD - 07/30/2023 2:09 PM EST Operative Note Date: 07/30/23 Location: [facility] OR Name: Anibal Barreto, : 1965, Diagnoses: Pre-op Diagnosis Esophageal stenosis Post-op Diagnosis Esophageal stenosis Procedure(s): Suspension microlaryngoscopy with flexible esophagoscopy and balloon dilation Attending Surgeon(s): * Gil Hernandez - Primary Cdl Truck Driver(s): * Maryellen Rivera MD - Resident - Assisting Anesthesia: * No anesthesia type entered * ASA: III Blood Administration: Blood Product Administration History Date Volume Status Transfuse platelets 06/12/2021 234 mL Completed 06/12/21 182 Estimated Blood Loss: Minimal Drains: * None in log * Specimen: Findings: Able to tolerate 20mm balloon at the yifan-UES, so a 20Fr bougie was placed alongside and inflated again to 18mm with the balloon for a total of 74Fr or 24.7mm in size. Small amount of self-limited bleeding noted. Rest of esophagus did not have any problems. Indications: Anibal Barreto is an 58 y.o. male who is having surgery for Esophageal stenosis.Has had many esophageal dilations in the past after his total laryngectomy for squamous cell carcinoma. Has noticed narrowing recently and trouble tolerating solid foods. Consented for an esophageal dilation, possible super dilation. Narrative: Patient brought into the operating room and general anesthesia administered. Patient rotated 90 degrees to the operating team and time-out performed. Patient prepped and draped in the usual fashion. Raytec Mouthguard was placed and Dedo laryngoscope used to visualize the yifan-UES opening. Opening into the esophageal inlet viewed with 0 degree telescope and suspended in position as noted above. Flexible esophagoscopy performed through this approach down to stomach and above findings noted. Esophageal balloon was then used to dilate the stenotic segment. Hemostasis was achieved and then the patient was returned to anesthesia for appropriate wake-up. Complications: None; patient tolerated the procedure well. Submitted by: Gil Hernandez MD - 08/01/2023 * H&P - Maryellen Rivera MD - 07/30/2023 11:49 AM EST History Of Present Illness Presents for esophageal dilation for relief of dysphagia. 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 Surgical History He has a past surgical history that includes Other surgical history (N/A); Other surgical history (N/A); Other surgical history (N/A); Esophagogastroduodenoscopy (N/A); Laryngoscopy (N/A); Other surgical history (N/A); Feeding Tube Placement (N/A); Lung surgery; Tracheostomy tube placement; Esophageal dilation; Partial laryngectomy; and Laryngoscopy (02/19/2022). Family History Family History Problem Relation Name Age of Onset Stroke Father Kidney failure Father FH: kidney failure Liver cancer Mother FH: liver cancer Breast cancer Sister Uterine cancer Sister Heart attack Sister Uterine cancer Sister FH: uterine cancer Anesthesia problems Neg Hx Malig Hyperthermia Neg Hx Social History He reports that he quit smoking about 23 years ago. His smoking use included cigarettes. He startedsmoking about 33 years ago. He has a 20.00 pack-year smoking history. He has never used smokeless tobacco. He reports that he does not currently use alcohol. He reports that he does not currently usedrugs after having used the following drugs: Morphine. Allergies Cetuximab, Docetaxel, and Methadone Medications No current facility-administered medications for this encounter. 12 Point Review of Systems performed and negative except that mentioned in HPI. PHYSICAL EXAM (relevant scope findings reviewed from clinic note- including flexible laryngoscopy, rigid nasal endoscopy, otoscopy) GENERAL: Patient is awake, well-developed, and non-toxic appearing. HEAD/FACE: Normocephalic and atraumatic. Salivary glands exhibit no swelling or tenderness. Facial strength/tone is normal and symmetric. EYES: Extraocular muscles are intact. The sclera and conjunctiva are normal. No ptosis is appreciated. No nystagmus. EARS: The pinnae are well-formed. The external auditory canals are patent without cerumen impaction. Gross auditory perception is appreciated. NOSE: The nasal dorsum is without scar or deformity. The nasal airways appear patent. The mucosa ismoist and the septum and turbinates appear normal and non-obstructing. ORAL CAVITY: The lips and gums appear normal. No mucosal masses or lesions are appreciated of the oral mucosa. The tongue has full range of motion. There is appropriate incisor opening without trismus. OROPHARYNX: No mucosal masses or lesions are appreciated. The hard palate is intact. The soft palate elevates symmetrically. The uvula is midline. The pharyngeal chatterjee have no lesions or asymmetric swelling. NECK: The neck is soft and supple. No crepitus or masses are appreciated. The thyroid is non-enlarged and non-tender. Laryngectomy stoma RESPIRATORY: Breathing is non-labored without use of accessory muscles. There is symmetric chest wall expansion. CARDIOVASCULAR: Heart rhythm is regular. Bilateral upper extremities have 2+ peripheral pulses. No peripheral cyanosis is appreciated. LYMPHATIC: No appreciable cervical lymphadenopathy is present on palpation. NEUROLOGICAL: Cranial nerves II-, VIII-XII are grossly intact. PSYCHIATRIC: The patient is mood appropriate and non-agitated. A/P Update 07/30/23: Patient to OR today for FLEXIBLE ESOPHAGOSCOPY WITH BALLOON DILATION , SUPER DILATION . AK ESOPHAGOSCOPY FLEXIBLE TRANSORAL DIAGNOSTIC [07659] (.) AK ESOPHAGOSCOPY FLEXIBLE TRANSORAL DIAGNOSTIC [74085] AK ESOPHAGOSCOPY FLEX BALLOON DILAT <30 MM DIAM [73993] AK ESOPHAGOSCOPY DILATE ESOPHAGUS BALLOON 30 MM [03344] - Patient denies changes since last seen in clinic - Risks and benefits were discussed with the patient and/or patient's family including but not limited to bleeding, infection, damage to surrounding structure, need for further procedure, wound complications, anesthesia risks. - Patient or other available family provided consent for the procedure. Consent documentation located in chart - NPO since midnight Cosigned by Gil Hernandez MD at 08/01/2023 7:21 PM EST Associated attestation - Gil Hernandez MD - 08/01/2023 7:21 PM EST I saw and evaluated the patient with the resident/fellow. I discussed the case with the resident/fellow and agree with the findings and plan as documented. * PAT Phone Note - Preeti Urrutia RN - 07/27/2023 10:11 AM EST HPI Anibal Barreto is a 58 y.o. male who presents with Pre-op Diagnosis * Esophageal stenosis [K22.2] now scheduled for FLEXIBLE ESOPHAGOSCOPY WITH BALLOON DILATION , SUPER DIALTION . (N/A) on 07/30/23 Past Medical History: Diagnosis Date Chronic pain disorder neck/face post radiation/cancer. COVID-19 06/12/21 Dysphagia 2020 food must be very small to swallow , no issues with swallowing liquids Essential (primary) hypertension HTN (hypertension) GERD (gastroesophageal reflux disease) History of DVT (deep vein thrombosis) resolved 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 12/26/2020 Laryngeal cancer (CMS/HCC) s/p chemo/radiation 4 years ago Neoplasm related pain 10/14/2020 Personal history of antineoplastic chemotherapy History of chemotherapy Personal history of other diseases of the respiratory system History of hemoptysis Pure hypercholesterolemia, unspecified Elevated cholesterol Tracheostomy dependent (CMS/HCC) Unspecified disorder of ear, unspecified ear Hearing loss left ear Unspecified osteoarthritis, unspecified site Arthritis Vetfe-Yslqekkus-Zhutx pattern Asymptomatic, does not see cardiology Family History Problem Relation Name Age of Onset Stroke Father Kidney failure Father FH: kidney failure Liver cancer Mother FH: liver cancer Breast cancer Sister Uterine cancer Sister Heart attack Sister Uterine cancer Sister FH: uterine cancer Anesthesia problems Neg Hx Malig Hyperthermia Neg Hx Social History Tobacco Use Smoking status: Former Packs/day: 2.00 Years: 10.00 Additional pack years: 0.00 Total pack years: 20.00 Types: Cigarettes Start date: 1990 Quit date: 2000 Years since quittin.1 Smokeless tobacco: Never Vaping Use Vaping Use: Never used Substance Use Topics Alcohol use: Not Currently Comment: Alcoholic Drinks/day: Quit consuming alcohol in remote past Drug use: Not Currently Types: Morphine SURGICAL HISTORY: Past Surgical History: Procedure Laterality Date ESOPHAGEAL DILATION x2 ESOPHAGOGASTRODUODENOSCOPY N/A Esophagogastroduodenoscopy from [facility] FEEDING TUBE PLACEMENT N/A Now removed LARYNGOSCOPY N/A Laryngoscopy from [facility] LARYNGOSCOPY 02/19/2022 LUNG SURGERY OTHER SURGICAL HISTORY N/A Neck dissection modified radical from [facility] OTHER SURGICAL HISTORY N/A Percutaneous endoscopic gastrostomy tube removal from [facility] OTHER SURGICAL HISTORY N/A Laryngectomy from [facility] OTHER SURGICAL HISTORY N/A Trachectomy from [facility] PARTIAL LARYNGECTOMY TRACHEOSTOMY TUBE PLACEMENT Allergies Allergen Reactions Cetuximab Anaphylaxis SOA, hypotension, after 9 ml of drug Docetaxel Rash, Shortness of breath and Unknown - Patient states they do not know rxn details Patient very dyspnic, flushed, severe back pain. Patient very dyspnic, flushed, severe back pain. Patient very dyspnic, flushed, severe back pain. Methadone Rash and Other - please document in the comment field MEDICATIONS: No current facility-administered medications for this encounter. Current Outpatient Medications: ALPRAZolam, Take 1 tablet (1 mg) by mouth 2 (two) times a day. amLODIPine, Take 1 tablet (2.5 mg) by mouth 1 (one) time each day. atorvastatin, Take 1 tablet (20 mg) by mouth 1 (one) time each day. gabapentin, Take 1 tablet (600 mg) by mouth 4 (four) times a day. levothyroxine, Take 1 tablet (125 mcg) by mouth 1 (one) time each day. lisinopril-hydroCHLOROthiazide, Take 1 tablet by mouth 1 (one) time each day. omeprazole, TAKE 1 CAPSULE BY MOUTH EVERY DAY oxyCODONE, Take 1 tablet (30 mg) by mouth every 3 (three) hours if needed for severe pain. tamsulosin, TAKE 1 CAPSULE BY MOUTH EVERY NIGHT TO HELP WITH URINE FLOW ondansetron, Take 1 tablet (8 mg) by mouth 2 (two) times a day. Starting day after chemo for 3 days. Preeti Urrutia RN * Preprocedure Instructions - Preeti Urrutia RN - 07/27/2023 10:10 AM EST Current Medications Medication Instructions ALPRAZolam (Xanax) 1 MG tablet Take morning of surgery amLODIPine (Norvasc) 2.5 MG tablet Take morning of surgery atorvastatin (Lipitor) 20 MG tablet Take morning of surgery gabapentin (Neurontin) 600 MG tablet Take morning of surgery levothyroxine (Synthroid, Levoxyl) 125 MCG tablet Take morning of surgery lisinopril-hydroCHLOROthiazide 20-25 MG tablet Hold day of surgery omeprazole (PriLOSEC) [address] capsule Take morning of surgery oxyCODONE (Roxicodone) 30 MG immediate release tablet Take as needed tamsulosin (Flomax) 0.4 MG 24 hr capsule Take night before surgery General Preoperative Instructions You will be called the business day before surgery with your arrival time Do not eat or drink anything after midnight except water with your medications unless other instructions are given No alcohol or smoking prior to surgery Arrive on time to avoid delays Parking/Registration procedure explained You MUST have a responsible adult available for transport to and from hospital Visitation policy for the day of surgery reviewed Bring insurance card, photo ID, along with power of tuft machine operator, guardianship or advanced directives if applicable Do not bring money, jewelry or other valuables Hibiclens bathing instructions reviewed if applicable Notify surgeon of fever, illness, any changes or if you decide not to have surgery Pediatric patients under 12 years of age (If applicable) No solid food or milk after midnight Formula 6 hours prior to arrival for surgery Breast milk 4 hours prior to arrival surgery Clear liquids 2 hours prior to arrival for surgery Diabetes Instructions (If applicable) Take diabetes medication as instructed You may have up to 4 ounces of apple juice 2 hours prior to arrival for surgery for low glucose documented in this encounter Plan of Treatment Upcoming Encounters Date Type Department Care Team (Late st Contact Info) Description 07/17/2024 12:30 PM EST Clinical Support [facility] [address] [phone] 07/17/2024 1:30 PM EST Appointment [facility] [address] [place] [address] 07/20/2024 2:50 PM EST Office Visit [facility] 800 [facility], [address] [place] [phone] Divine Carpenter MD 800 [facility] [address] [place] [address] documented as of this encounter Procedures Procedure Name Priority Date/Time Associated Diagnosis Comments ESOPHAGOSCOPY, WITH DILATION 07/30/2023 1:45 PM EST Esophageal stenosis documented in this encounter Visit Diagnoses Diagnosis Esophageal stenosis- Primary Stricture and stenosis of esophagus Esophageal stenosis Stricture and stenosis of esophagus documented in this encounter Administered Medications Inactive Administered Medications - up to 3 most recent administrations Medication Order MAR Action Action Date Dose Rate Site acetaminophen (Tylenol) tablet 1,000 mg 1,000 mg, Oral, Once as needed, 1 dose, Starting on Wed07/30/23 at 1433, Until Wed07/30/23 at 1748, Routine, Recovery (Phase I only), pain score of >1 out of 10 albuterol (2.5 MG/3ML) 0.083% nebulizer solution 3 mL 3 mL, Nebulization, Every 4 hours PRN, 2 doses, Starting on Wed07/30/23 at 1433, Until Wed07/30/23 at 1748, Routine, Recovery (Phase I only), shortness of breath fentaNYL (Sublimaze) injection 25 mcg 25 mcg, Intravenous, Every 5 min PRN, 2 doses, Starting on Wed07/30/23 at 1433, Until Wed07/30/23 at 1748, Routine, Recovery (Phase I only), pain score of 3-4 out of 10 HYDROmorphone (Dilaudid) injection 0.5 mg 0.5 mg, Intravenous, Every 10 min PRN, 2 doses, Starting on Wed07/30/23 at 1433, Until Wed07/30/23 at 1748, Routine, Recovery (Phase I only), pain score of 9-10 out of 10 lactated Ringer's infusion 100 mL/hr, Intravenous, Once, 1 dose, On Wed07/30/23 at 1215, Routine New Bag 07/30/2023 12:40 PM EST 100 mL/hr 100 mL/hr naloxone (Narcan) injection 0.4 mg 0.4 mg, Intravenous, As needed, Starting on Wed07/30/23 at 1433, Until Wed07/30/23 at 1748, Routine, Recovery (Phase I only), respiratory depression ondansetron (Zofran) injection 4 mg 4 mg, Intravenous, Once as needed, 1 dose, Starting on Wed07/30/23 at 1433, Until Wed07/30/23 at 1748, Routine, Recovery (Phase I only), nausea, vomiting oxyCODONE (Roxicodone) immediate release tablet 10 mg 10 mg, Oral, Once as needed, 1 dose, Starting on Wed07/30/23 at 1433, Until Wed07/30/23 at 1748, Routine, Recovery (Phase I only), pain score of 6-8 out of 10 oxyCODONE (Roxicodone) immediate release tablet 5 mg 5 mg, Oral, Once as needed, 1 dose, Starting on Wed07/30/23 at 1433, Until Wed07/30/23 at 1748, Routine, Recovery (Phase I only), pain score of 3-5 out of 10 sodium chloride 0.9 % flush 10 mL 10 mL, Intravenous, Every 12 hours, First dose on Wed07/30/23 at 1215, Until Discontinued, Routine, Holding - Preprocedure sodium chloride 0.9 % flush 10 mL 10 mL, Intravenous, As needed, Starting on Wed07/30/23 at 1156, Until Wed07/30/23 at 1748, Routine, Holding - Preprocedure, line care documented in this encounter Active and Recently Administered Medications Times are shown in EST. Scheduled Medication Order 07/28/2023 07/29/2023 07/30/2023 lactated Ringer's infusion (COMPLETED) 100 mL/hr, Intravenous, Once, 1 dose, On Wed07/30/23 at 1215, Routine 1240 (New Bag - Prov ider: Darlene George RN) lactated Ringer's infusion 20 mL/hr, Intravenous, Once, 1 dose, On Wed07/30/23 at 1500, Routine 1500 (Canceled Entry - Provider: Automatic Discharge Provider - Comment: Automatically canceled at discontinue of medication order) sodium chloride 0.9 % flush 10 mL(Linked Group 1) 10 mL, Intravenous, Every 12 hours, First dose on Wed07/30/23 at 1215, Until Discontinued, Routine, Holding - Preprocedure 1215 (Canceled Entry - Provider: Automatic Discharge Provider - Comment: Automatically canceled at discontinue of medication order) PRN Medication Order 07/28/2023 07/29/2023 07/30/2023 acetaminophen (Tylenol) tablet 1,000 mg 1,000 mg, Oral, Once as needed, 1 dose, Starting on Wed07/30/23 at 1433, Until Wed07/30/23 at 1748, Routine, Recovery (Phase I only), pain score of >1 out of 10 albuterol (2.5 MG/3ML) 0.083% nebulizer solution 3 mL 3 mL, Nebulization, Every 4 hours PRN, 2 doses, Starting on Wed07/30/23 at 1433, Until Wed07/30/23 at 1748, Routine, Recovery (Phase I only), shortness of breath fentaNYL (Sublimaze) injection 25 mcg 25 mcg, Intravenous, Every 5 min PRN, 2 doses, Starting on Wed07/30/23 at 1433, Until Wed07/30/23 at 1748, Routine, Recovery (Phase I only), pain score of 3-4 out of 10 HYDROmorphone (Dilaudid) injection 0.5 mg 0.5 mg, Intravenous, Every 10 min PRN, 2 doses, Starting on Wed07/30/23 at 1433, Until Wed07/30/23 at 1748, Routine, Recovery (Phase I only), pain score of 9-10 out of 10 naloxone (Narcan) injection 0.4 mg 0.4 mg, Intravenous, As needed, Starting on Wed07/30/23 at 1433, Until Wed07/30/23 at 1748, Routine, Recovery (Phase I only), respiratory depression ondansetron (Zofran) injection 4 mg 4 mg, Intravenous, Once as needed, 1 dose, Starting on Wed07/30/23 at 1433, Until Wed07/30/23 at 1748, Routine, Recovery (Phase I only), nausea, vomiting oxyCODONE (Roxicodone) immediate release tablet 10 mg(Linked Group 2) 10 mg, Oral, Once as needed, 1 dose, Starting on Wed07/30/23 at 1433, Until Wed07/30/23 at 1748, Routine, Recovery (Phase I only), pain score of 6-8 out of 10 oxyCODONE (Roxicodone) immediate release tablet 5 mg(Linked Group 2) 5 mg, Oral, Once as needed, 1 dose, Starting on Wed07/30/23 at 1433, Until Wed07/30/23 at 1748, Routine, Recovery (Phase I only), pain score of 3-5 out of 10 sodium chloride 0.9 % flush 10 mL(Linked Group 1) 10 mL, Intravenous, As needed, Starting on Wed07/30/23 at 1156, Until Wed07/30/23 at 1748, Routine, Holding - Preprocedure, line care Linked Groups Order Group 1: Insert peripheral IV (CANCELED) Once, On Wed07/30/23 at 1157, For 1 occurrence, Holding - Preprocedure And Saline lock IV (CANCELED) Once, On Wed07/30/23 at 1157, For 1 occurrence, Holding - Preprocedure And sodium chloride 0.9 % flush 10 mLJump to med 10 mL, Intravenous, Every 12 hours, First dose on Wed07/30/23 at 1215, Until Discontinued, Routine, Holding - Preprocedure And sodium chloride 0.9 % flush 10 mLJump to med 10 mL, Intravenous, As needed, Starting on Wed07/30/23 at 1156, Until Wed07/30/23 at 1748, Routine, Holding - Preprocedure, line care Group 2: oxyCODONE (Roxicodone) immediate release tablet 5 mgJump to med 5 mg, Oral, Once as needed, 1 dose, Starting on Wed07/30/23 at 1433, Until Wed07/30/23 at 1748, Routine, Recovery (Phase I only), pain score of 3-5 out of 10 Or oxyCODONE (Roxicodone) immediate release tablet 10 mgJump to med 10 mg, Oral, Once as needed, 1 dose, Starting on Wed07/30/23 at 1433, Until Wed07/30/23 at 1748, Routine, Recovery (Phase I only), pain score of 6-8 out of 10 documented in this encounter Additional Health Concerns Assessment Noted Time A fall risk assessment has been complete d for the patient 07/12/2023 10:42 AM EST A Body Mass Index follow-up plan has been documented for the patient 07/23/2023 4:38 PM EST documented as of this encounter Care Teams Bus Girl Relationship Specialty Start Date End Date Michele Wright MD [address] [place] [id number] PCP - General 10/11/20 Edgar Szymanski MD [address] [place] [phone] Radiation Oncologist Radiation Therapy 03/14/20 4 Shun Hurst MD [address] [facility] [address] [place] [phone] Surgeon Neurosurgery 02/24/21 Divine Carpenter MD 800 [facility] [address] [place] [phone] Medical Oncologist Medical Oncology 06/13/21 documented as of this encounter
--- OUTSIDE RECORDS SUMMARY | 2024-05-03 13:35 | XMS_ITS | Encounter Summary ---
Author Organization [facility] Address [address] [place] [id number] Care Team Providers Care Medical Front Desk Coordinator Name Role Phone Michele Wright MD Primary Care Provider + [phone] Edgar Szymanski MD Unavailable [phone] Shun Hurst MD Unavailable [phone] Divine Carpenter MD Unavailable [phone] Encounter Details Date Type Department Care Team (Late st Contact Info) Description 08/06/2023 Telephone [facility] [address] [place] [address] Lyn Jorgensen RN [facility] Social History Tobacco Use Types Packs/Day [...] Miscellaneous Notes * Telephone Encounter - Lyn Jorgensen RN - 08/06/2023 4:27 PM EST Phoned patient, no answer, LVM explaining that previous message sent to patient was incorrect. Prescriptions have not been sent to the pharmacy yet and this will be taken care of on 08/09/23. documented in this encounter Plan of Treatment Upcoming Encounters Date Type Department Care Team (Late st Contact Info) Description 07/17/2024 12:30 PM EST Clinical Support [facility] Respiratory 800 [facility], [address]nd [place] [phone] 07/17/2024 1:30 PM EST Appointment [facility] G Radiology [address] [place] [phone] 07/20/2024 2:50 PM EST Office Visit [facility] Res[facility] 800 [facility], [address]nd [place] [phone] Divine Carpenter MD 800 [facility] [address] [place] [phone] documented as of this encounter Visit Diagnoses Not on filedocumented in this encounter Additional Health Concerns Assessment Noted Time A fall risk assessment has been complete d for the patient 07/12/2023 10:42 AM EST A Body Mass Index follow-up plan has been documented for the patient 07/23/2023 4:38 PM EST documented as of this encounter Care Teams Medical Front Desk Coordinator Relationship Specialty Start Date End Date Michele Wright MD [address] [phone] PCP - General 10/11/20 Edgar Szymanski MD [address] [place] [phone] Radiation Oncologist Radiation Therapy 03/14/20 4 Shun Hurst MD [address] [facility] [address] [place] [phone] Surgeon Neurosurgery 02/24/21 Divine Carpenter MD [address] [phone] Medical Oncologist Medical Oncology 06/13/21 documented as of this encounter
--- OUTSIDE RECORDS SUMMARY | 2024-05-03 13:35 | XMS_ITS | Encounter Summary ---
Author Organization [facility] Address [address] [place] [address] Care Team Providers Care Lock Maintenance Supervisor Name Role Phone Michele Wright MD Primary Care Provider + [phone] Edgar Szymanski MD Unavailable [phone] Shun Hurst MD Unavailable [phone] Divine Carpenter MD Unavailable [phone] Reason for Visit * Reason Onset Date Comments Med Refill 08/09/2023 Encounter Details Date Type Department Care Team (Late Contact Info) Description 08/09/2023 Refill [facility] Res[facility] 800 [facility], [address]nd [place] [address] Ambika Ambriz, RN [facility] Social History Tobacco [...] [facility] Respiratory 800 [facility], [address]nd [place] [phone] 07/17/2024 1:30 PM EST Appointment [facility] G Radiology [address] [place] [phone] 07/20/2024 2:50 PM EST Office Visit [facility] Head[facility] Neck [facility] Respiratory 800 [facility], [address] [place] [phone] Divine Carpenter MD 800 [facility] Diane Zuniga [facility] [address] [place] [address] documented as of this encounter Visit Diagnoses Not on filedocumented in this encounter Additional Health Concerns Assessment Noted Time A fall risk assessment has been complete d for the patient 07/12/2023 10:42 AM EST A Body Mass Index follow-up plan has been documented for the patient 07/23/2023 4:38 PM EST documented as of this encounter Care Teams Lock Maintenance Supervisor Relationship Specialty Start Date End Date Michele Wright MD [address] [place] [address] PCP - General 10/11/20 Edgar Szymanski MD 800 [facility] [address] [place] [address] Radiation Oncologist Radiation Therapy 03/14/20 4 Shun Hurst MD [address] [facility] [address] [place] [address] Surgeon Neurosurgery 02/24/21 Divine Carpenter MD 800 [facility] Diane Zuniga [facility] [address] [place] [phone] Medical Oncologist Medical Oncology 06/13/21 documented as of this encounter
--- OUTSIDE RECORDS SUMMARY | 2024-05-03 13:35 | XMS_ITS | Encounter Summary ---
Author Organization [facility] Address [address] [place] [address] Care Team Providers Care Energy Professional Name Role Phone Michele Wright MD Primary Care Provider + [phone] Edgar Szymanski MD Unavailable [phone] Shun Hurst MD Unavailable [phone] Divine Carpenter MD Unavailable [phone] Reason for Visit * Reason Onset Date Comments Med Refill 08/10/2023 Encounter Details Date Type Department Care Team (Late Contact Info) Description 08/10/2023 Refill [facility] Res[facility] 800 [facility], [address] [place] [address] Ambika Ambriz, RN [facility] Social History Tobacco [...] [facility] Neck [facility] Respiratory 800 [facility], [address] [place] [phone] 07/17/2024 1:30 PM EST Appointment [facility] G Radiology [address] [place] [phone] 07/20/2024 2:50 PM EST Office Visit [facility] Head[facility] Neck [facility] Respiratory 800 [facility], [address]nd [place] [phone] Divine Carpenter MD 800 [facility] Diane Zuniga [facility] [address] [place] [address] documented as of this encounter Visit Diagnoses Not on filedocumented in this encounter Additional Health Concerns Assessment Noted Time A fall risk assessment has been complete d for the patient 07/12/2023 10:42 AM EST A Body Mass Index follow-up plan has been documented for the patient 07/23/2023 4:38 PM EST documented as of this encounter Care Teams Energy Professional Relationship Specialty Start Date End Date Michele Wright MD [address] [place] [address] PCP - General 10/11/20 Edgar Szymanski MD 800 [facility] [address] [place] [address] Radiation Oncologist Radiation Therapy 03/14/20 4 Shun Hurst MD [address] [facility] [address] [place] [address] Surgeon Neurosurgery 02/24/21 Divine Carpenter MD 800 [facility] Diane Zuniga [facility] [address] [place] [phone] Medical Oncologist Medical Oncology 06/13/21 documented as of this encounter
--- OUTSIDE RECORDS SUMMARY | 2024-05-03 13:35 | XMS_ITS | Encounter Summary ---
Author Organization [facility] Address [address] [place] [address] Care Team Providers Care Staffing Account Manager Name Role Phone Michele Wright MD Primary Care Provider + [phone] Shun Hurst MD Unavailable [phone] Divine Carpenter MD Unavailable [phone] Ambika Cain CF-FINISHING MACHINE OPERATOR Unavailable Unavailab le Encounter Details Date Type Department Care Team (Latest Contact Info) Description 01/17/2024 Travel Social History Tobacco Use Types Packs/Day [...] & Respiratory [address] [place] [phone] 07/17/2024 1:30 PM EST Appointment [facility] G Radiology [address] [place] [phone] 07/20/2024 2:50 PM EST Office Visit [facility] Head[facility] Neck [facility] Respiratory 800 [facility], [address]nd [place] [address] Divine Carpenter MD 800 [facility] [address] [place] [address] documented as of this encounter Visit Diagnoses Not on filedocumented in this encounter Additional Health Concerns Assessment Noted Time A fall risk assessment has been complete d for the patient 01/17/2024 11:14 AM EDT A Body Mass Index follow-up plan has been documented for the patient 01/11/2024 1:05 AM EDT documented as of this encounter Care Teams Staffing Account Manager Relationship Specialty Start Date End Date Michele Wright MD [address] [place] [address] PCP - General 10/11/20 Shun Hurst MD [address] [facility] [address] [place] [address] Surgeon Neurosurgery 02/24/21 Divine Carpenter MD 800 [facility] Diane Rothmanrickson [facility] [address] [place] [address] Medical Oncologist Medical Oncology 06/13/21 Ambika Cain, CF-FINISHING MACHINE OPERATOR Speech Language Pathologist Speech Pathology 10/06/23 documented as of this encounter
--- OUTSIDE RECORDS SUMMARY | 2024-05-03 13:35 | XMS_ITS | Encounter Summary ---
Author Organization [facility] Address [address] [place] [address] Care Team Providers Care Principal Hardware Architect Name Role Phone Michele Wright MD Primary Care Provider + [phone] Edgar Szymanski MD Unavailable [phone] Shun Hurst MD Unavailable [phone] Divine Carpenter MD Unavailable [phone] Encounter Details Date Type Department Care Team (Latest Contact Info) Description 07/30/2023 Travel Social History Tobacco Use Types Packs/Day [...] Upcoming Encounters Date Type Department Care Team ( st Contact Info) Description 07/17/2024 12:30 PM EST Clinical Support [facility] Respiratory 800 [facility], [address]nd [place] [address] 07/17/2024 1:30 PM EST Appointment [facility] G Radiology [address] [place] [address] 07/20/2024 2:50 PM EST Office Visit [facility] Head[facility] Neck [facility] Respiratory 800 [facility], [address]nd [place] [address] Divine Carpenter MD 800 [facility] Diane Zuniga [facility] [address] [place] [address] documented as of this encounter Visit Diagnoses Not on filedocumented in this encounter Additional Health Concerns Assessment Noted Time A fall risk assessment has been complete d for the patient 07/12/2023 10:42 AM EST A Body Mass Index follow-up plan has been documented for the patient 07/23/2023 4:38 PM EST documented as of this encounter Care Teams Principal Hardware Architect Relationship Specialty Start Date End Date Michele Wright MD [address] [place], [place] [phone] PCP - General 10/11/20 Edgar Szymanski MD 800 [facility] [address] [place] [address] Radiation Oncologist Radiation Therapy 03/14/20 4 Shun Hurst MD [address] [place] [address] Surgeon Neurosurgery 02/24/21 Divine Carpenter MD 800 [facility] Diane Zuniga [facility] [address] [place] [address] Medical Oncologist Medical Oncology 06/13/21 documented as of this encounter
--- OUTSIDE RECORDS SUMMARY | 2024-05-03 13:35 | XMS_ITS | Encounter Summary ---
Author Organization Healthcare Address [address] [place] [address] Care Team Providers Care Pv Design And Installation Technician Name Role Phone Michele Wright MD Primary Care Provider + [phone] Shun Hurst MD Unavailable [phone] Divine Carpenter MD Unavailable [phone] Ambika Cain CF-MAINTENANCE SUPERVISOR ELECTRICAL Unavailable Unavailab le Reason for Referral * Imaging (Routine) - Pending Review Specialty Diagnoses / Procedures [facility]erred To Contact Radiology Diagnoses History of laryngeal cancer Bilateral carotid artery stenosis 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 Procedures CT Soft Tissue Neck w IV Contrast Divine Carpenter MD [address] [address] Phone: tel: fax: Referral ID Status Reason Start Date Expiration Date V isits Requested Visits Authorized [id number] Pending Review 01/16/2024 07/17/2025 1 1 * Imaging (Routine) - Pending Review Specialty Diagnoses / Procedures [facility] Referred To Contact Radiology Diagnoses History of laryngeal cancer Bilateral carotid artery stenosis 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 Procedures CT Chest w IV Contrast Divine Carpenter MD [address] [address] Phone: tel: fax: Referral ID Status Reason Start Date Expiration Date V isits Requested Visits Authorized [id number] Pending Review 01/16/2024 07/17/2025 1 1 Reason for Visit * Reason Comments Follow-up Encounter Details Date Type Department Care Team ([facility] st Contact Info) Description 01/17/2024 11:20 AM EDT Office Visit Pav CC Head, Neck & Respiratory [address] [facility], [address]nd [place] [address] Divine Carpenter MD [address] [facility] Diane Zuniga [facility] [address] [place] [address] History of laryngeal cancer (Primary Dx); Bilateral carotid artery stenosis; 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; Neoplasm related pain; Neuropathy of right upper extremity; Cancer of larynx (CMS/HCC) Social History Tobacco Use Types Packs/Day Years Used Date Smoking Tobacco: Former Cigarettes 2 10 1 - 2000 Smokeless Tobacco: Never Tobacco Cessation:Counseling [...] Weight 99.3 kg (218 lb 14.7 oz) 08/19/2 024 11:13 AM EDT Height 176 cm (5' 9.29 ) 01/17/2024 11: 13 AM EDT Body Mass Index 32.06 01/17/2024 11:13 AM EDT documented in this encounter Miscellaneous Notes * Progress Notes - Divine Carpenter MD - 01/17/2024 11:20 AM EDT MEDICAL ONCOLOGY FOLLOW-UP NOTE Patient Information Patient Name: Anibal Barreto Date of : 1965 REFERRING PHYSICIAN: Michele Wright MD Encounter Date: 01/17/2024 Treatment Diagnosis: Cancer Staging Cancer of larynx (CMS/HCC) Staging form: Larynx - Glottis, AJCC 8th Edition - Clinical stage from 02/19/2017: Stage ZULAY (cT3, cN2c, cM0) - Signed by Divine Carpenter MD on 10/14/2020 - Pathologic stage from 03/22/2018: Stage III (rpT3, pN0, cM0) - Signed by Divine Carpenter MD on10/14/2020 - Pathologic stage from 11/21/2019: Stage IVC (rpTX, pNX, pM1) - Signed by Divine Carpenter MD on 10/14/2020 History of Present Illness: Anibal Barreto is a 58 y.o. male who returns for followup of his Cancer Staging Cancer of larynx (CMS/HCC), Staging form: Larynx - Glottis, AJCC 8th Edition, Clinical: Stage ZULAY Cancer of larynx (CMS/HCC), Staging form: Larynx - Glottis, AJCC 8th Edition, Pathologic: Stage III Cancer of larynx (CMS/HCC), Staging form: Larynx - Glottis, AJCC 8th Edition, Pathologic: Stage IVC. he returns for followup after treatment of head and neck cancer and followup of lung cancer Oncology History Overview Note Mr Anibal Barreto returns for follow-up of hs relapsed his head and neck cancer Mr Barreto is a 55-year-old male with a history of larynx cancer and a new pulm nodule His oncologic history is as follows: 1 Presented with sore throat in July 2016 and gradually developed dysphagia and odynophagia andcoughed up pink tissue and subsequently felt a mass in the right neck 2 He was referred to ENT and indirect laryngoscopic examination on 02/19/2017 revealed a large, fixed mass of the vallecula and epiglottis with adenopathy in levels 2 through 4 [id number] 3 PET/CT scan dated 02/19/2017 showed an intensely hypermetabolic epiglottis and mucosa extending to the true vocal cords, slightly asymmetric involving the right pyriform sinus and aryepiglottic fold with 27 4 mSUV along with intensely hypermetabolic bilateral cervical lymph nodes 4 A biopsy performed here at [facility] during direct examination on 03/03/2017 showed 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 He then had a trachesostomy as well a PEG tube placed 5 S/p Induction carboplatin and taxol x 2 cycles and then concurrent cetuximab with radiation 6 He had recurrent disease in 2018 and underwent total laryngectomy with limited neck dissection with ALT free flap, [id number] 7 Subsequent followup scans were negative for larynx cancer progression, but Dr Correia for noted anenlarging right upper lobe lung nodule in May 2019, which increased from 6 mm to 9mm in September 2019 8 PET scan performed on November 01, 2019, reveals hypermetabolic nodule with no other apparent sites ofdisease 9 On November 21, 2019, he underwent a RIGHT, WEDGE, VATS RESECTION: which revealed a SQUAMOUS CELL CARCINOMA (1 8 CM), COMPLETELY EXCISED with no tumor seen in LYMPH NODE, LEVEL 7, 10R or 4R 10 Began MULTI-20 clinical trial with first dose of q6W pembrolizumab on 03/14/20 and with SBRT andwith PD on CT scans on 11/21/20. 11 Urgent Care visit for burning sensation to skin on his RUE and chest 12 S/p XRT to right axilla and chest wall to 3000 cGy. 13 Begins Carboplatin/cetuximab on 01/27/21. Had anaphylaxis on 02/17/21, to cetuximab, and this was permanently discontinued. Switched to Carboplatin-5FU on 03/10/21. 14. Ct imaging of chest and soft tissues of neck with no definite evidence of thoracic progression,but noted new tiny clustered left lower lobe nodules are most likely infectious or inflammatory; and otherwise postsurgical and radiation effects and no tumor recurrence or cervical adenopathy. 15. Underwent an esophageal dilation and laryngoscopy with biopsy on 04/10/21 which was negative for malignancy, but found to have rare fungal on stain and gram + bacilli with microabscesses. 16. 05/30 C4 Carbo/5Fu- Admit to Hospital on 06/12/2021-06/16 was found to be COVID 19 positive, received Remdesivir X 5 days, dexamethasone 17. Following recovery, he restarted chemotherapy on 06/30/21 and we elected to take a treatment break on 08/18/21. Cancer of larynx ([facility]) 02/19/2017 Cancer Staged Staging form: Larynx - Glottis, AJCC 8th Edition, Clinical stage from 02/19/2017: Stage ZULAY (cT3, cN2c, cM0) - Signed by Divine Carpenter MD on 10/14/2020 03/18/2017 Initial Diagnosis Cancer of larynx ([facility]) 03/22/2018 Cancer Staged Staging form: Larynx - Glottis, AJCC 8th Edition, Pathologic stage from 03/22/2018: Stage III (rpT3, pN0, cM0) - Signed by Divine Carpenter MD on 10/14/2020 11/21/2019 Cancer Staged Staging form: Larynx - Glottis, AJCC 8th Edition, Pathologic stage from 11/21/2019: Stage IVC (rpTX,pNX, pM1) - Signed by Divine Carpenter MD on 10/14/2020 03/14/2020 - 11/24/2020 Research Study Participant [id number]: Pembrolizumab Every 42 Days Every 84 Days Plan Provider: Divine Carpenter MD Treatment goal: Palliative Line of treatment: Second Line Associated studies: Priming Immunotherapy in Advanced Disease with Radiation 01/27/2021 - 02/17/2021 Chemotherapy cetuximab (Erbitux) 892 mg chemo IVPB, 400 mg/m2 = 892 mg, Intravenous, Once, 2 of 6 cycles Administration: 892 mg (01/27/2021), 558 mg (02/17/2021) CARBOplatin (Paraplatin) 750 mg in sodium chloride 0.9 % 250 mL chemo IVPB, 661.5 mg, Intravenous, Once, 2 of 6 cycles Administration: 750 mg (01/27/2021), 750 mg (02/17/2021) aprepitant (Cinvanti) 130 MG/18ML IV 130 mg, 130 mg, Intravenous, Once, 2 of 6 cycles Administration: 130 mg (01/27/2021), 130 mg (02/17/2021) 03/10/2021 - 07/29/2021 Chemotherapy CARBOplatin (Paraplatin) 750 mg in sodium chloride 0.9 % 250 mL chemo IVPB, 750 mg, Intravenous, Once, 6 of 8 cycles Dose modification: 600 mg (original dose 750 mg, Cycle 6, Reason: Toxicity/Complication) Administration: 750 mg (03/10/2021), 750 mg (03/31/2021), 750 mg (04/29/2021), 750 mg (05/26/2021), 600 mg (06/30/2021), 600 mg (07/28/2021) fluorouracil (Adrucil) 8,750 mg in sodium chloride 0.9 % 230 mL chemo infusion - for home use, 4,000 mg/m2 = 8,750 mg, Intravenous, Over 96 hours, 6 of 8 cycles Dose modification: 3,000 mg/m2 (original dose 4,000 mg/m2, Cycle 5) Administration: 8,750 mg (03/10/2021), 8,750 mg (03/31/2021), 8,750 mg (04/29/2021), 8,750 mg (05/26/2021), 6,550 mg (06/30/2021), 6,350 mg (07/28/2021) aprepitant (Cinvanti) 130 MG/18ML IV 130 mg, 130 mg, Intravenous, Once, 6 of 8 cycles Administration: 130 mg (03/10/2021), 130 mg (03/31/2021), 130 mg (04/29/2021), 130 mg (05/26/2021), 130 mg (06/30/2021), 130 mg (07/28/2021) Secondary malignant neoplasm of chest wall (CMS/HCC) 11/26/2020 Initial Diagnosis Secondary malignant neoplasm of chest wall (CMS/HCC) Radiation Treatments Active No active radiation treatments to show. Historical Plans [id number] RTAx Most recent treatment: Dose planned: 300 cGy (fraction 10 on 12/20/2020) Total: Dose planned: 3,000 cGy (10 fractions) Elapsed Days: 11 Reference Points Right Axilla Most recent treatment: Dose given: 300 cGy (on 12/20/2020) Total: Dose given: 3,000 cGy Elapsed Days: 11 Currently, he denies fever, or chills, nausea, vomiting, but has dry mouth, throat pain, dysphagia,voice changes. Problem List and Medications Reviewed and updated in this encounter by me personally Objective Performance Status 0: Fully active, able to carry on all pre-disease performance without restriction Blood pressure 124/68, pulse 67, temperature 36.9 ??C (98.4 ??F), temperature source Oral, resp. rate 16, height 1.76 m (5' 9.29 ), weight 99.3 kg (218 lb 14.7 oz), SpO2 92%. EXAM Physical Exam Constitutional: General: He is not in acute distress. Appearance: Normal appearance. He is normal weight. He is not ill-appearing. HENT: Right Ear: External ear normal. Left Ear: External ear normal. Nose: Nose normal. Mouth/Throat: Pharynx: Oropharynx is clear. No oropharyngeal exudate or posterior oropharyngeal erythema. Neck: Comments: Tracheostomy site CDI. Patient is able to speak when he puts his finger on the tracheostomy. ROM is decreased Cardiovascular: Rate and Rhythm: Normal rate and regular rhythm. Pulmonary: Effort: No respiratory distress. Breath sounds: Normal breath sounds. No wheezing, rhonchi or rales. Abdominal: General: Abdomen is flat. Bowel sounds are normal. Palpations: Abdomen is soft. There is no mass. Tenderness: There is no abdominal tenderness. Musculoskeletal: Cervical back: Rigidity (trach with valve intact) present. Skin: General: Skin is warm and dry. Findings: No lesion. Neurological: General: No focal deficit present. Mental Status: He is alert and oriented to person, place, and time. Mental status is at baseline. LABORATORIES STUDIES: reviewed by me personally today to monitor for cancer related drug toxicity and treatment related balance clerk toxicity CBC WBC 6.38 Hgb 14.3 PLT 149 HCT 44.2 Lab Results Component Value Date NEUTROABS 5.16 01/10/2024 BMPL Na 138 Cl 99 BUN 18 Gluc 102 K 3.6 Co2 31 Creat 0.95 LIVER FUNCTION TESTING Tot Prot 6.9 AST 21 Tot bili 0.8 ALT 13 Alkphos 96 Ca 9.4 Lab Results Component Value Date TSH 1.53 01/10/2024 RADIOLOGY: I independently visualized the recent imaging below based on the patient's symptoms and oncologic history. CT Soft Tissue Neck w IV Contrast Result Date: 01/10/2024 Impression: Unchanged since the previous examination. No recurrence. Elias Washburn M.D. CT Chest w IV Contrast Result Date: 01/10/2024 Impression: 1. No evidence of disease progression. 2. Increasing groundglass opacities in the posterior lower lobes. This could be secondary to chronic aspiration, although developing interstitial lung disease is also possible.Final report signed by Michele West MD on 01/10/2024 12:13 PM Assessment/Plan Cancer management: Cancer Staging Cancer of larynx (CMS/HCC) Staging form: Larynx - Glottis, AJCC 8th Edition - Clinical stage from 02/19/2017: Stage ZULAY (cT3, cN2c, cM0) - Signed by Divine Carpenter MD on 10/14/2020 - Pathologic stage from 03/22/2018: Stage III (rpT3, pN0, cM0) - Signed by Divine Carpenter MD on10/14/2020 - Pathologic stage from 11/21/2019: Stage IVC (rpTX, pNX, pM1) - Signed by Divine Carpenter MD on 10/14/2020 (recurrent) - Had received treatment for localized disease (S/p Induction carboplatin and taxol x 2 cycles and then concurrent cetuximab with radiation). Then had total laryngectomy in 2017 for recurrence. At the time of an enlarging right upper lobe lung nodule in May 2019 and s/p RIGHT, WEDGE, VATS RESECTION: which revealed a SQUAMOUS CELL CARCINOMA (1 8 CM), COMPLETELY EXCISED. - Began MULTI-20 clinical trial with first dose of q6W pembrolizumab on 03/14/20 and with SBRT and with PD on CT scans on 11/21/20. S/p XRT to right axilla and chest wall to 3000 cGy. Began Carboplatin/cetuximab on 01/27/21. Had anaphylaxis on 02/17/21, to cetuximab, and this was permanently discontinued. Switched to Carboplatin-5FU on 03/10/21, s/p 4 cycles, then had COVID, and then restarted chemotherapy on 06/30/21 and we elected to take a treatment break on 08/18/21. - I independently visualized and reviewed the current radiology findings with the patient in detailand answered all questions. I agree that this shows great response and NO PROGRESSIVE DISEASE - I reviewed liver and renal function as well as bone marrow function in relationship to this patient's prior chemotherapy. - RTC in 6M with repeat scans. Plan to continue to hold treatment. 2. Pain related to neoplasm: chronic with significant relief on Morphine and oxycodone - continue current pain medicines - and is appropriate for medicinal marijuana due to his larynx cancer. - The patient continues to experience pain directly related to their neoplasm requiring monitoring and adjustments in dosage and frequency of narcotic and adjunctive medications by me. KEVAN report reviewed and will be reviewed periodically 3. 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 Hernandez on 07/30/23. 4. Hypothyroidism - decreased levothyroxine to 125mg, and TSH is WITHIN NORMAL LIMITS today - This will be periodically monitored as we continue therapy, due to the potential for worsening ofthyroid function from radiation and systemic cancer therapy. 5. Carotid narrowing - dopplers of bilateral necks did nto show significant stenosis in Mar 2023. Right UE arterial studies did not show any evidence of stenosis in the upper extremity arteries. . Divine Carpenter MD Orders Placed This Encounter Procedures CT Chest w IV Contrast CT Soft Tissue Neck w IV Contrast CBC and Differential Comprehensive Metabolic Panel, Plasma Thyroid Stimulating Hormone, Plasma documented in this encounter Plan of Treatment Upcoming Encounters Date Type Department Care Team (Late st Contact Info) Description 07/17/2024 12:30 PM EST Clinical Support Pav CC Head, Neck & Respiratory [address] [facility] [place] [address] 07/17/2024 1:30 PM EST Appointment [facility] [address] [place] [address] 07/20/2024 2:50 PM EST Office Visit [facility] Head[facility] Neck & Respiratory [address] [facility] [place] [address] Divine Carpenter MD [address] [facility] [address] [place] [address] Scheduled Orders Name Type Priority Associated Diagnoses Orde r Schedule CT Chest w IV Contrast Imaging Routine History of laryngeal cancer Bilateral carotid artery stenosis 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 Expected: 07/18/2024 CT Soft Tissue Neck w IV Contrast Imaging Routine History of laryngeal cancer Bilateral carotid artery stenosis 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 Expected: 07/18/2024 CBC and Differential Lab Routine History of laryngeal cancer Bilateral carotid artery stenosis 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 Expected: 07/18/2024, Expires: 01/15/2025 Comprehensive Metabolic Panel, Plasma Lab Routine History of laryngeal cancer Bilateral carotid artery stenosis 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 Expected: 07/18/2024, Expires: 01/15/2025 Thyroid Stimulating Hormone, Plasma Lab Routine History of laryngeal cancer Bilateral carotid artery stenosis 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 Expected: 07/18/2024, Expires: 01/15/2025 documented as of this encounter Visit Diagnoses Diagnosis History of laryngeal cancer- Primary Personal history of malignant neoplasm of larynx Bilateral carotid artery stenosis Occlusion and stenosis of carotid artery without mention of cerebral infarction 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 Neoplasm related pain Neoplasm related pain (acute) (chronic) Neuropathy of right upper extremity 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, unspecified site documented in this encounter Additional Health Concerns Assessment Noted Time A fall risk assessment has been complete d for the patient 01/17/2024 11:14 AM EDT A Body Mass Index follow-up plan has been documented for the patient 01/11/2024 1:05 AM EDT documented as of this encounter Care Teams Pv Design And Installation Technician Relationship Specialty Start Date End Date Michele Wright MD [address] [place] [address] PCP - General 10/11/20 Shun Hurst MD [address] [facility] [address] [place] [address] Surgeon Neurosurgery 02/24/21 Divine Carpenter MD [address] [place] [address] [address] Medical Oncologist Medical Oncology 06/13/21 Ambika Cain, CF-MAINTENANCE SUPERVISOR ELECTRICAL Speech Language Pathologist Speech Pathology 10/06/23 documented as of this encounter
--- OUTSIDE RECORDS SUMMARY | 2024-05-03 13:35 | XMS_ITS | Encounter Summary ---
Author Organization [facility] Address [address] [place] [address] Care Team Providers Care Paper Sales Representative Name Role Phone Michele Wright MD Primary Care Provider + [phone] Shun Hurst MD Unavailable [phone] Divine Carpenter MD Unavailable [phone] Ambika Cain CF-MALT HOUSE KILN OPERATOR Unavailable Unavailab le Reason for Visit * Reason Onset Date Comments Med Refill 01/24/2024 Encounter Details Date Type Department Care Team (Late Contact Info) Description 01/24/2024 Refill Pav CC Head, Neck & Respiratory [address] [facility], [address] [place] [address] Ambika Ambriz, RN AMB-HEAD NECK AND RESPIRATORY [...] Pav CC Head, Neck & Respiratory [address] [facility], [address] [place] [address] 07/17/2024 1:30 PM EST Appointment [facility] [address] [place] [phone] 07/20/2024 2:50 PM EST Office Visit Pav CC Head, Neck & Respiratory [address] [facility], [address] [place] [address] Divine Carpenter MD [address] [facility] [address] [facility] [address] [place] [address] documented as of this encounter Visit Diagnoses [...] documented as of this encounter Care Teams Paper Sales Representative Relationship Specialty Start Date End Date Michele Wright MD [address] [place] [address] PCP - General 10/11/20 Shun Hurst MD [address] [facility] [address] [place] [address] Surgeon Neurosurgery 02/24/21 Divine Carpenter MD [address] [facility] Diane Rosasson [facility] [address] [place] [address] Medical Oncologist Medical Oncology 06/13/21 Ambika Cain CF-MALT HOUSE KILN OPERATOR Speech Language Pathologist Speech Pathology 10/06/23 documented as of this encounter
--- OUTSIDE RECORDS SUMMARY | 2024-05-03 13:35 | XMS_ITS | Encounter Summary ---
Author Organization [facility] Address [address] [place] [address] Care Team Providers Care Museum Host/Hostess Name Role Phone Michele Wright MD Primary Care Provider [phone] Edgar Szymanski MD Unavailable [phone] Shun Hurst MD Unavailable [phone] Divine Carpenter MD Unavailable [phone] Reason for Visit * Reason Onset Date Comments Med Refill 08/30/2023 Encounter Details Date Type Department Care Team (Late st Contact Info) Description 08/30/2023 Refill Pav CC Head, Neck & Respiratory [address] [place] [address] Li Burch, RN Primary hypertension (Primary Dx) Social History Tobacco Use Types [...] CC Head, Neck & Respiratory [address] [facility], [address]nd [place] [address] 07/17/2024 1:30 PM EST Appointment [facility] [address] [place] [phone] 07/20/2024 2:50 PM EST Office Visit Pav CC Head, Neck & Respiratory [address] [facility], [address] [place] [phone] Divine Carpenter MD [address] [facility] Diane Zuniga [facility] [address] [place] [address] documented as of this encounter Visit Diagnoses Diagnosis Primary hypertension- Primary Unspecified essential hypertension documented in this encounter Additional Health Concerns Assessment Noted Time A fall risk assessment has been complete d for the patient 07/12/2023 10:42 AM EST A Body Mass Index follow-up plan has been documented for the patient 07/23/2023 4:38 PM EST documented as of this encounter Care Teams Museum Host/Hostess Relationship Specialty Start Date End Date Michele Wright MD [address] [place] [address] PCP - General 10/11/20 Edgar Szymanski MD [address] [facility] [address] [place] [address] Radiation Oncologist Radiation Therapy 03/14/20 4 Shun Hurst MD [address] [facility] [address] [place] [address] Surgeon Neurosurgery 02/24/21 Divine Carpenter MD [address] [facility] Diane Zuniga [facility] [address] [place] [phone] Medical Oncologist Medical Oncology 06/13/21 documented as of this encounter
--- OUTSIDE RECORDS SUMMARY | 2024-05-03 13:35 | XMS_ITS | Encounter Summary ---
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 laryngeal cancer Procedures CT Chest w IV Contrast Divine Carpenter MD [address] [address] Phone: tel: fax: Referral ID Status Reason Start Date Expiration Date Visits Re quested Visits Authorized [id number] Closed 07/10/2023 01/08/2025 1 1 * Imaging (Routine) - Closed Specialty Diagnoses / Procedures Referred By Ortega harden Referred To Contact Radiology Diagnoses 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 History of laryngeal cancer Procedures CT Soft Tissue Neck w IV Contrast Divine Carpenter MD [address] [address] Phone: tel: fax: Referral ID Status Reason Start Date Expiration Date Visits Re quested Visits Authorized [id number] Closed 07/10/2023 01/08/2025 1 1 Reason for Visit * Imaging (Routine) - Closed Specialty Diagnoses / Procedures Referred By Ortega t Referred To Contact Radiology Diagnoses 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 History of laryngeal cancer Procedures CT Chest w IV Contrast Divine Carpenter MD 800 [facility] [address] [place] [address] Phone: tel: fax: Referral ID Status Reason Start Date Expiration Date Visits Re quested Visits Authorized [id number] Closed 07/10/2023 01/08/2025 1 1 Encounter Details Date Type Department Care Team (Latest Contact Info) Description 01/10/2024 10:55 AM EDT - 01/10/2024 11:59 PM EDT Hospital Encounter [facility] [address] [place] [address] 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 Give 1 spray in nostril for no/slow breathing or cannot wake after opioid use 2. Call 911 3. Repeat in other nostril if symptoms continue 1 each 11/29/2023 omeprazole (PriLOSEC) [address] capsule Take 1 capsule (40 mg) by mouth 1 (one) time each day. Do not crush or chew. 90 capsule 3 11/01/2023 ondansetron (Zofran) 8 MG tablet Take 1 tablet (8 mg) by mouth 2 (two) times a day. Starting day after chemo for 3 days. 30 tablet 5 07/12/2023 ALPRAZolam (Xanax) 1 MG tablet Take 1 tablet (1 mg) by mouth 2 (two) times a day. 60 tablet 2 12/27/2023 4 amLODIPine (Norvasc) 2.5 MG tablet Take 1 tablet (2.5 mg) by mouth 1 (one) time each day. 90 tablet 11/29/2023 4 atorvastatin (Lipitor) 20 MG tablet TAKE 1 TABLET BY MOUTH EVERY DAY 90 tablet 11/11/2023 4 gabapentin (Neurontin) 600 MG tabletIndications: Neoplasm related pain Take 1 tablet (600 mg) by mouth 4 (four) times a day. 120 tablet 2 12/27/2023 4 levothyroxine (Synthroid, Levoxyl) 125 MCG tablet Take 1 tablet (125 mcg) by mouth 1 (one) time each day. 990 tablet 11/29/2023 4 lisinopril-hydroCH LOROthiazide 20-25 MG tabletIndications: Primary hypertension Take 1 tablet by mouth 1 (one) time each day. 90 tablet 09/06/2023 4 oxyCODONE (Roxicodone) 30 MG immediate release tabletIndications: Neoplasm related pain Take 1 tablet (30 mg) by mouth every 3 (three) hours if needed for severe pain. 240 tablet 12/27/2023 4 tamsulosin (Flomax) 0.4 MG 24 hr capsule TAKE 1 CAPSULE BY MOUTH EVERY NIGHT TO HELP WITH URINE FLOW 30 capsule 02/25/2022 4 documented as of this encounter Plan of Treatment Upcoming Encounters Date Type Department Care Team (Late st Contact Info) Description 07/17/2024 12:30 PM EST Clinical Support Pav [facility] Res[facility] [address] [facility] [place] [address] 07/17/2024 1:30 PM EST Appointment [facility] [address] [place] [address] 07/20/2024 2:50 PM EST Office Visit Pav [facility] Head[facility] Neck [facility] Respiratory [address] [facility] [place] [address] Divine Carpenter MD [address] 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 No evidence of disease progression. 2. Increasing groundglass opacities in the posterior lower lobes. This could be secondary to chronic aspiration, although developing interstitial lung disease is also possible. CRITICAL RESULT: No. COMMUNICATION: Per this written report. Drafted by Michele West MD on 01/10/2024 12:00 PM Final report signed by Michele West MD on 01/10/2024 12:13 PM Narrative 01/10/2024 12:13 PM EDT CLINICAL INDICATION: metastatic disease evaluation; hypothyroidism; history of laryngeal cancer TECHNIQUE: Multiple CT helical images were obtained from thoracic inlet through upper abdomen with administration of IV contrast. 100 ??mL of Omnipaque-300 were administered intravenously. ?? Total DLP (Dose-Length Product): 1058 mGy*cm. Please note: The reported value represents the total of one or more individual components during the CT acquisition on this date and at this time, and as such, the same value may appear in more than one CT report depending on the interpreting/reporting physicians. COMPARISON: July 09, 2023 FINDINGS: Mediastinum and Pleura: No mediastinal or hilar adenopathy. No pleural or pericardial effusions. Lungs: Minimal fibrosis the lung apices, likely from prior neck radiation. Stable appearance of wedge resection staple line in the right upper lobe. No new or enlarging pulmonary nodules. Basilar groundglass opacities and areas of interlobular septal thickening are increased. There is no clear evidence of associated fibrosis. Upper Abdomen: No suspicious lesions in the partially visualized upper abdomen. Musculoskeletal: No suspicious lytic or sclerotic lesion. Procedure Note Michele West MD - 01/10/2024 CLINICAL INDICATION: metastatic disease evaluation; hypothyroidism; history of laryngealcancer TECHNIQUE: Multiple CT helical images were obtained from thoracic inlet through upperabdomen with administration of IV contrast. 100 mL of Omnipaque-300 wereadministered intravenously. Total DLP (Dose-Length Product): 1058 mGy*cm. Please note: The reportedvalue represents the total of one or more individual components during theCT acquisition on this date and at this time, and as such, the same valuemay appear in more than one CT report depending on theinterpreting/reporting physicians. COMPARISON: July 09, 2023 FINDINGS: Mediastinum and Pleura: No mediastinal or hilar adenopathy. No pleural orpericardial effusions. Lungs: Minimal fibrosis the lung apices, likely from prior neck radiation.Stable appearance of wedge resection staple line in the right upper lobe.No new or enlarging pulmonary nodules. Basilar groundglass opacities andareas of interlobular septal thickening are increased. There is no clearevidence of associated fibrosis. Upper Abdomen: No suspicious lesions in the partially visualized upperabdomen. Musculoskeletal: No suspicious lytic or sclerotic lesion. IMPRESSION: 1. No evidence of disease progression. 2. Increasing groundglass opacities in the posterior lower lobes. Thiscould be secondary to chronic aspiration, although developing interstitiallung disease is also possible. CRITICAL RESULT: No. COMMUNICATION: Per this written report. Drafted by Michele West MD on 01/10/2024 12:00 PM Final report signed by Michele West MD on 01/10/2024 12:13 PM Divine Carpenter MD IMG CT PROCEDURES Final Resu lt * CT Soft Tissue Neck w IV Contrast (01/10/2024 11:37 AM EDT) Anatomical Region Laterality Modality Neck Computed Tomogra phy Impressions 01/10/2024 3:47 PM EDT Unchanged since the previous examination. ??No recurrence. Elias Washburn M.D. This report has been electronically signed and verified by the Radiologist whose name is printed above. This report contains privileged and confidential information and is intended solely for the use of the individual or entity to which it is addressed. If you are not the intended recipient of this report, you are hereby notified that any copying, distribution, dissemination or action taken in relation to the contents of this report is strictly prohibited and may be unlawful. If you have received this report in error, please notify the sender immediately at [phone] and permanently delete the original report and destroy any copies or printouts. Narrative 01/10/2024 3:47 PM EDT [facility] ? - Phone Outpatient NAME: Anibal Barreto ?? DATE OF EXAM: 01/10/2024 Patient No: ??[id number] Physician: ??Jayden^Divine Date of : ??1965 Past Medical/Surgical History (entered by technologist): ?? 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 Total DLP 1058 mGy-cm Technique: Axial CT examination of the neck with intravenous contrast. Multiplanar reformats were generated. Comparison: CT neck July 09, 2023, March 08, 2023 FINDINGS: Unchanged since the previous examination. Laryngectomy, tracheostomy, transesophageal puncture, flap reconstruction, neck dissection. ??No neck mass or significant cervical adenopathy. ??Right tongue hemiatrophy. ??Aside from surgical changes, thyroid and salivary glands appear normal, and major cervical vascular structures appear normal. 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 ??No suspicious bone lesions. ??Scarring at right greater than left lung apices. 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 TotalDLP 1058 mGy-cm Technique: Axial CT examination of the neck with intravenous contrast.Multiplanar reformats were generated. Comparison: CT neck July 09, 2023, March 08, 2023 FINDINGS: Unchanged since the previous examination. Laryngectomy, tracheostomy, transesophageal puncture, flap reconstruction,neck dissection. No neck mass or significant cervical adenopathy. Righttongue hemiatrophy. Aside from surgical changes, thyroid and salivaryglands appear normal, and major cervical vascular structures appearnormal. Minimal-moderate degenerative changes of the cervical spine,noting ossification of the posterior longitudinal ligament. No suspiciousbone lesions. Scarring at right greater than left lung apices. IMPRESSION: Unchanged since the previous examination. No recurrence. Elias Washburn M.D. This report has been electronically signed and verified by the Radiologistwhose name is printed above. This report contains privileged and confidential information and isintended solely for the use of the individual or entity to which it isaddressed. If you are not the intended recipient of this report, you arehereby notified that any copying, distribution, dissemination or actiontaken in relation to the contents of this report is strictly prohibitedand may be unlawful. If you have received this report in error, pleasenotify the sender immediately at [phone] and permanently delete theoriginal report and destroy any copies or printouts. us Divine Carpenter MD IMG CT PROCEDURES Final Resu lt * POCT creatinine (01/10/2024 11:20 AM EDT) [facility] Creatinine, Point of Care 0.9 0.7 - 1.2 mg/dL 01/10/2024 11:23 AM EDT [facility] POCT eGFR 100 mL/min/1. 73m*2 01/10/2024 11:23 AM EDT [facility] Budget Technician ID Ant Mcdonald 01/10/2024 11:23 AM EDT [facility] Device ID [id number] 01/10/2024 11:23 AM EDT [facility] Comment 01/10/2024 11:23 AM EDT [facility] Comment:Testing performed on i-STAT at the point of care. Reported eGFRcr in mL/min/1.73m2 is based the CKD-EPI 2020 equation that does not use a race coefficient. 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 History of laryngeal cancer Personal history of malignant neoplasm of larynx documented in this encounter Administered Medications Inactive Administered Medications - up to 3 most recent administrations Medication Order MAR Action Action Date Dose Rate Site iohexol (OMNIPaque) 300 MG/ML injection 100 mL 100 mL, Intravenous, Once in imaging, 1 dose, Starting on Wed01/10/24 at 1107, Until Wed01/10/24 at 1133, Routine, Imaging Protocol Orders Given 01/10/2024 11:33 AM EDT 100 mL documented in this encounter Additional Health Concerns Assessment Noted Time A fall risk assessment has been complete d for the patient 07/12/2023 10:42 AM EST A Body Mass Index follow-up plan has been documented for the patient 01/11/2024 1:05 AM EDT documented as of this encounter Care Teams Holistic Specialist Relationship Specialty Start Date End Date Michele Wright MD [address] [place] [address] PCP - General 10/11/20 Shun Hurst MD [address] [facility] [address] [place] [phone] Surgeon Neurosurgery 02/24/21 Divine Carpenter MD 800 [facility] [address] [place] [phone] Medical Oncologist Medical Oncology 06/13/21 Ambika Cain [employer]IP[employer] Speech Language Pathologist Speech Pathology 10/06/23 documented as of this encounter
--- OUTSIDE RECORDS SUMMARY | 2024-05-03 13:35 | XMS_ITS | Encounter Summary ---
Author Organization [facility] Address [address] [place] [address] Care Team Providers Care Game Engineer Name Role Phone Michele Wright MD Primary Care Provider [phone] Shun Hurst MD Unavailable [phone] Divine Carpenter MD Unavailable [phone] Ambika Cain CF-MANAGER [employer] Unavailable Unavailab le Reason for Visit * Reason Comments Labs Only [facility] Encounter Details Date Type Department Care Team (Latest Contact Info) Description 01/10/2024 10:00 AM EDT Clinical Support Pav [facility] Respiratory [address] [address] 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; History of laryngeal cancer Social History Tobacco [...] Upcoming Encounters Date Type Department Care Team ([facility] st Contact Info) Description 07/17/2024 12:30 PM EST Clinical Support Pav [facility] Head[facility] Neck [facility] Respiratory [address] [facility] [place] [address] 07/17/2024 1:30 PM EST Appointment [facility] [address] [place] [address] 07/20/2024 2:50 PM EST Office Visit Pav [facility] Head[facility] Neck [facility] Respiratory [address] [facility] [place] [address] Divine Carpenter MD [address] [facility] [address] [place] [address] documented as of this encounter Procedures Procedure Name Priority Date/Time Associated Diagnosis Comments CBC WITH AUTO DIFFERENTIAL Routine 01/10/2024 10:28 AM EDT 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 History of laryngeal cancer TSH Routine 01/10/2024 10:28 AM EDT 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 History of laryngeal cancer COMPREHENSIVE METABOLIC PANEL, PLASMA Routine 01/10/2024 10:28 AM EDT 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 History of laryngeal cancer documented in this encounter Results * Thyroid Stimulating Hormone, Plasma (01/10/2024 10:28 AM EDT) Thyroid Stimulating Hormone, Plasma 1.53 0.40 - 4.20 uIU/mL 01/10/2024 12:19 PM EDT [facility] Blood Venous blood specimen / Unknown Venipuncture / Unknown 01/10/2024 10:28 AM EDT 01/10/2024 11:43 AM EDT us Divine Carpenter MD LAB BLOOD ORDERABLES Final [facility] [address] [place] [address] * (ABNORMAL) Comprehensive Metabolic Panel, Plasma (01/10/2024 10:28 AM EDT) Glucose, Plasma 102(H) 74 - 99 mg/dL 01/10/2024 12:19 PM EDT [facility] BUN, Plasma 18 7 - 21 mg/dL 01/10/2024 12:19 PM EDT [facility] Creatinine, Plasma 0.95 0.70 - 1.20 mg/dL 01/10/2024 12:19 PM EDT [facility] BUN/Creatinine Ratio 01/10/2024 12:19 PM EDT [facility] Sodium, Plasma 138 136 - 145 mmol/L 01/10/2024 12:19 PM EDT [facility] Potassium, Plasma 3.6(L) 3.7 - 4.8 mmol/L 01/10/2024 12:19 PM EDT [facility] Chloride, Plasma 99 97 - 107 mmol/L 01/10/2024 12:19 PM EDT [facility] CO2, Plasma 31(H) 22 - 29 mmol/L 01/10/2024 12:19 PM EDT [facility] Anion Gap 8 6 - 16 mmol/L 01/10/2024 12:19 PM EDT [facility] Total Calcium, Plasma 9.4 8.9 - 10.2 mg/dL 01/10/2024 12:19 PM EDT [facility] Total Protein 6.9 6.3 - 7.9 g/dL 01/10/2024 12:19 PM EDT [facility] Albumin, Plasma 4.1 3.5 - 5.2 g/dL 01/10/2024 12:19 PM EDT [facility] AST, Plasma 21 10 - 50 U/L 01/10/2024 12:19 PM EDT [facility] ALT, Plasma 13 10 - 50 U/L 01/10/2024 12:19 PM EDT [facility] Alkaline Phosphatase, Plasma 96 40 - 115 U/L 01/10/2024 12:19 PM EDT [facility] Total Bilirubin, Plasma 0.8 0.2 - 1.1 mg/dL 01/10/2024 12:19 PM EDT [facility] eGFRcr 93.4 mL/min/1.7 3m*2 01/10/2024 12:[facility] Comment:Reported eGFRcr in m L/min/1.73m2 is based the CKD-EPI 2020 equation that does not use a race coefficient. Blood Venous blood specimen / Unknown Venipuncture / Unknown 01/10/2024 10:28 AM EDT 01/10/2024 11:43 AM EDT us Divine Carpenter MD LAB BLOOD ORDERABLES Final [facility] [address] [place] [address] * (ABNORMAL) CBC and Differential (01/10/2024 10:28 AM EDT) WBC Count 6.38 3.70 - 10.30 10*3/uL LAB HEMATOLOGY METHOD 01/10/2024 12:03 PM EDT [facility] RBC Count 5.01 4.60 - 6.10 10*6/uL LAB HEMATOLOGY METHOD 01/10/2024 12:03 PM EDT [facility] HGB 14.3 13.7 - 17.5 g/dL LAB HEMATOLOGY METHOD 01/10/2024 12:03 PM EDT [facility] HCT 44.2 40.0 - 51.0 % LAB HEMATOLOGY METHOD 01/10/2024 12:03 PM EDT [facility] Platelet Count 149(L) 155 - 369 10*3/uL LAB HEMATOLOGY METHOD 01/10/2024 12:03 PM EDT [facility] MCV 88 79 - 98 fL LAB HEMATOLOGY METHOD 01/10/2024 12:03 PM EDT [facility] MCH 28.5 26.0 - 32.0 pg LAB HEMATOLOGY METHOD 01/10/2024 12:03 PM EDT [facility] MCHC 32.4 30.7 - 35.5 g/dL LAB HEMATOLOGY METHOD 01/10/2024 12:03 PM EDT [facility] RDW 13.3 11.5 - 14.5 % LAB HEMATOLOGY METHOD 01/10/2024 12:03 PM EDT [facility] MPV 11.4 8.8 - 12.5 fL LAB HEMATOLOGY METHOD 01/10/2024 12:03 PM EDT [facility] nRBC 0.0 <=0.0 per 100 WBCs LAB HEMATOLOGY METHOD 01/10/2024 12:03 PM EDT [facility] Differential Type Automated LAB HEMATOLOGY METHOD 01/10/2024 12:03 PM EDT [facility] Neutrophils % 79.0 % LAB HEMATOLOGY METHOD 01/10/2024 12:03 PM EDT [facility] Lymphocytes % 9.0 % LAB HEMATOLOGY METHOD 01/10/2024 12:03 PM EDT [facility] Monocytes % 7.0 % LAB HEMATOLOGY METHOD 01/10/2024 12:03 PM EDT [facility] Eosinophils % 3.0 % LAB HEMATOLOGY METHOD 01/10/2024 12:03 PM EDT [facility] Basophils % 1.0 % LAB HEMATOLOGY METHOD 01/10/2024 12:03 PM EDT [facility] Immature Granulocytes % 1.0 % LAB HEMATOLOGY METHOD 01/10/2024 12:03 PM EDT [facility] Neutrophils Absolute 5.16 1.60 - 6.10 10*3/uL LAB HEMATOLOGY METHOD 01/10/2024 12:03 PM EDT [facility] Lymphocytes Absolute 0.57(L) 1.20 - 3.90 10*3/uL LAB HEMATOLOGY METHOD 01/10/2024 12:03 PM EDT [facility] Monocytes Absolute 0.43 0.30 - 0.90 10*3/uL LAB HEMATOLOGY METHOD 01/10/2024 12:03 PM EDT [facility] Eosinophils Absolute 0.16 0.00 - 0.50 10*3/uL LAB HEMATOLOGY METHOD 01/10/2024 12:03 PM EDT [facility] Basophils Absolute 0.03 0.00 - 0.10 10*3/uL LAB HEMATOLOGY METHOD 01/10/2024 12:03 PM EDT [facility] Immature Granulocytes Absolute 0.03 0.00 - 0.06 10*3/uL LAB HEMATOLOGY METHOD 01/10/2024 12:03 PM EDT [facility] Blood Venous blood specimen / Unknown Venipuncture / Unknown 01/10/2024 10:28 AM EDT 01/10/2024 11:53 AM EDT Narrative [facility] - 01/10/2024 12:03 PM EDT Therapeutic decision making should be based on absolute values, rather than percentages. us Divine Carpenter MD LAB BLOOD ORDERABLES Final [facility] [address] [place] [address] documented in this encounter Visit Diagnoses Diagnosis [...] documented as of this encounter Care Teams Game Engineer Relationship Specialty Start Date End Date Michele Wright MD [address] [place], [place] [id number] PCP - General 10/11/20 Shun Hurst MD [address] [facility] [address] [place] [address] Surgeon Neurosurgery 02/24/21 Divine Carpenter MD 800 [facility] [address] [place] [address] Medical Oncologist Medical Oncology 06/13/21 Ambika Cain CF-MANAGER [employer] Speech Language Pathologist Speech Pathology 10/06/23 documented as of this encounter
--- OUTSIDE RECORDS SUMMARY | 2024-05-03 13:35 | XMS_ITS | Encounter Summary ---
Author Organization Healthcare Address [address] [place], [place] [address] Care Team Providers Care Door Maker Name Role Phone Michele Wright MD Primary Care Provider + [phone] Shun Hurst MD Unavailable [phone] Divine Carpenter MD Unavailable [phone] Ambika Cain CF-SOLAR MANUFACTURER'S REPRESENTATIVE Unavailable Unavailab le Reason for Visit * Reason Comments Med Refill Encounter Details Date Type Department Care Team (Late st Contact Info) Description 11/11/2023 Refill Pav [facility] Head[facility] Neck & Respiratory 800 [facility], 2nd [place] [address] Divine Carpenter MD [address] [facility] [address] [place] [address] Social History Tobacco Use Types Packs/Day Years [...] Pav CC Head, Neck & Respiratory 800 [facility], 2nd [place] [address] 07/17/2024 1:30 PM EST Appointment PAV G Radiology [address] [place] [address] 07/20/2024 2:50 PM EST Office Visit Pav CC Head, Neck & Respiratory 800 [facility], 2nd [place] [address] Divine Carpenter MD 800 [facility] [address] [place] [address] documented as of this encounter Visit Diagnoses Not on filedocumented in this encounter Additional Health Concerns Assessment Noted Time A fall risk assessment has been complete d for the patient 07/12/2023 10:42 AM EST A Body Mass Index follow-up plan has been documented for the patient 07/23/2023 4:38 PM EST documented as of this encounter Care Teams Door Maker Relationship Specialty Start Date End Date Michele Wright MD [address] [place] [address] PCP - General 10/11/20 Shun Hurst MD [address] [facility] [address] [place] [address] Surgeon Neurosurgery 02/24/21 Divine Carpenter MD 800 [facility] Diane Efrain [facility] [address] [place] [address] Medical Oncologist Medical Oncology 06/13/21 Ambika Cain CF-SOLAR MANUFACTURER'S REPRESENTATIVE Speech Language Pathologist Speech Pathology 10/06/23 documented as of this encounter
--- OUTSIDE RECORDS SUMMARY | 2024-05-03 13:35 | XMS_ITS | Encounter Summary ---
Author Organization [facility] Address [address] [place] [address] Care Team Providers Care Business Analysis Consultant Name Role Phone Michele Wright MD Primary Care Provider + [phone] Shun Hurst MD Unavailable [phone] Divine Carpenter MD Unavailable [phone] Ambika Cain CF-DYNAMO REPAIRER Unavailable Unavailab le Reason for Visit * Reason Onset Date Comments Med Refill 11/01/2023 Encounter Details Date Type Department Care Team (Late Contact Info) Description 11/01/2023 Refill Pav [facility] Head, Neck & Respiratory [address] , [address]nd [place] [address] Ambika Ambriz RN AMB-HEAD NECK AND RESPIRATORY [...] & Respiratory [address] , [address]nd [place] [address] 07/17/2024 1:30 PM EST Appointment PAV G Radiology [address] [place] [address] 07/20/2024 2:50 PM EST Office Visit Pav CC Head, Neck & Respiratory 800 [facility], 2nd [place] [address] Divine Carpenter MD 800 [facility] 134 [place] [address] documented as of this encounter Visit Diagnoses Not on filedocumented in this encounter Additional Health Concerns Assessment Noted Time A fall risk assessment has been complete d for the patient 07/12/2023 10:42 AM EST A Body Mass Index follow-up plan has been documented for the patient 07/23/2023 4:38 PM EST documented as of this encounter Care Teams Business Analysis Consultant Relationship Specialty Start Date End Date Michele Wright MD [address] [place] [address] PCP - General 10/11/20 Shun Hurst MD [address] [facility] [address] [place] [address] Surgeon Neurosurgery 02/24/21 Divine Carpenter MD 800 [facility] Ef[facility] [address] [place] [address] Medical Oncologist Medical Oncology 06/13/21 Ambika Cain CF-DYNAMO REPAIRER Speech Language Pathologist Speech Pathology 10/06/23 documented as of this encounter
--- OUTSIDE RECORDS SUMMARY | 2024-05-03 13:35 | XMS_ITS | Encounter Summary ---
Author Organization Healthcare Address [address] [place] [address] Care Team Providers Care Shuttle Truck Driver Name Role Phone Michele Wright MD Primary Care Provider + [phone] Shun Hurst MD Unavailable [phone] Divine Carpenter MD Unavailable [phone] Ambika Cain CF-FINANCIAL PROFESSIONAL Unavailable Unavailab le Encounter Details Date Type Department Care Team (Late st Contact Info) Description 01/27/2024 Telephone [facility] [address] [place] [address] Hernan Wallis, PharmD Social History Tobacco Use Types Packs/Day Years [...] encounter Miscellaneous Notes * Telephone Encounter - Hernan Wallis, PharmD - 01/27/2024 11:37 AM EDT PA request has been approved and pharmacy notified (Filling pharmacy will be notified by phone, fax, or submitted prescription) Authorized Medication: oxycodone 30mg tab Name of Insurance Approving PA: [email or web address] PA Number: Forman: [id number] PA Effective Dates: 01/27/24 - 01/26/25 Additional Info: NA * Telephone Encounter - Henran Wallis PharmD - 01/27/2024 11:33 AM EDT Prior authorization initiated by [email or web address]. Update will be provided when a determination has been received. Medication: oxycodone 30mg tab PA Submission Method: CMM Case Number/CMM Forman: Forman: [id number] documented in this encounter Plan of Treatment Upcoming Encounters Date Type Department Care Team ([facility] st Contact Info) Description 07/17/2024 12:30 PM EST Clinical Support Pav CC Head, Neck & Respiratory 800 [facility], 2nd [place] [address] 07/17/2024 1:30 PM EST Appointment PAV G Radiology [address] [place] [address] 07/20/2024 2:50 PM EST Office Visit Pav CC Head, Neck & Respiratory 800 [facility], 2nd [place] [address] Divine Carpenter MD [address] [address] documented as of this encounter Visit Diagnoses Not on filedocumented in this encounter Additional Health Concerns Assessment Noted Time A fall risk assessment has been complete d for the patient 01/17/2024 11:14 AM EDT A Body Mass Index follow-up plan has been documented for the patient 01/11/2024 1:05 AM EDT documented as of this encounter Care Teams Shuttle Truck Driver Relationship Specialty Start Date End Date Michele Wright MD [address] [place] [address] PCP - General 10/11/20 Shun Hurst MD [address] [facility] [address] [place] [address] Surgeon Neurosurgery 02/24/21 Divine Carpenter MD 800 [facility] [address] [place] [address] Medical Oncologist Medical Oncology 06/13/21 Ambika Cain, CF-FINANCIAL PROFESSIONAL Speech Language Pathologist Speech Pathology 10/06/23 documented as of this encounter
--- OUTSIDE RECORDS SUMMARY | 2024-05-03 13:35 | XMS_ITS | Encounter Summary ---
Author Organization Healthcare Address [address] [id number] Care Team Providers Care Water Commissioner Name Role Phone Michele Wright MD Primary Care Provider + [phone] Edgar Szymanski MD Unavailable [phone] Shun Hurst MD Unavailable [phone] Divine Carpenter MD Unavailable [phone] Reason for Visit * Auth/Cert (Routine) Specialty Diagnoses / Procedures Referred By Contac t Referred To Contact Diagnoses Esophageal stenosis Esophageal stenosis Procedures AK ESOPHAGOSCOPY FLEXIBLE TRANSORAL DIAGNOSTIC AK ESOPHAGOSCOPY FLEXIBLE TRANSORAL DIAGNOSTIC AK ESOPHAGOSCOPY FLEX BALLOON DILAT <30 MM DIAM AK ESOPHAGOSCOPY DILATE ESOPHAGUS BALLOON 30 MM FLEXIBLE ESOPHAGOSCOPY WITH BALLOON DILATION , SUPER DILATION . . Gil Hernandez MD [address] [employer] [address] [address] Phone: tel: fax: [facility] [address] [place] [address] Phone: tel: Referral ID Status Reason Start Date Expiration Date Visits Re quested Visits Authorized [id number] 1 1 Encounter Details Date Type Department Care Team (Late st Contact Info) Description 07/30/2023 11:01 AM EST - 07/30/2023 3:48 PM [facility] Encounter [facility] 800 [place] [address] Gil Hernandez MD [address] [address] Esophageal stenosis (Primary Dx) Discharge Disposition: Home or Self Care Social History Tobacco Use Types Packs/Day Years Used Date Smoking Tobacco: Former Cigarettes 2 10 1 2000 Smokeless Tobacco: Never Alcohol Use Standard [...] Sign Reading Time Taken Comments Blood Pressure 170/78 07/30/2023 3:30 PM EST Pulse 66 07/30/2023 3:30 PM EST Temperature 36.4 ??C (97.5 ??F) 07/30/2023 3:20 PM ES T Respiratory Rate 17 07/30/2023 3:30 PM EST Oxygen Saturation 92% 07/30/2023 3:30 PM EST Inhaled Oxygen Concentration - - Weight [...] Center 09/09/2023 1:20 PM [facility] 01/10/2024 10:00 AM [facility] JONATHAN Agarwal 01/10/2024 11:[address] [facility] 01/13/2024 10:30 AM Divine Carpenter MD [facility] Third Floor, Wing C, [address] [facility] [address] Call [phone] * Attachments The following attachments cannot be sent through Care Everywhere. * Sedation, Procedural (Adult) (Citizen [place]) * Esophagectomy Discharge Instructions () (Citizen [place]) documented in this encounter Medications at Time [...] PM EST Operative Note Date: 07/30/23 Location: [facility] OR Name: Anibal Barreto, : 1965, Diagnoses: Pre-op Diagnosis Esophageal stenosis Post-op Diagnosis Esophageal stenosis Procedure(s): Suspension microlaryngoscopy with flexible esophagoscopy and balloon dilation Attending Surgeon(s): * Gil Hernandez - Primary Dumper Mold Cleaner(s): * Maryellen Rivera MD - Resident - Assisting Anesthesia: * No anesthesia type entered * ASA: III Blood Administration: Blood Product Administration History Date Volume Status Transfuse platelets 06/12/2021 234 mL Completed 06/12/211826 Estimated Blood Loss: Minimal Drains: * None in log * Specimen: Findings: Able to tolerate 20mm balloon at the scott-UES, so a 20Fr bougie was placed alongside [...] and Dedo laryngoscope used to visualize the scott-UES opening. 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 Surgical History He has a past [...] DILATION . AK ESOPHAGOSCOPY FLEXIBLE TRANSORAL DIAGNOSTIC [19709] (.) AK ESOPHAGOSCOPY FLEXIBLE TRANSORAL DIAGNOSTIC [82066] AK ESOPHAGOSCOPY FLEX BALLOON DILAT <30 MM DIAM [38670] AK ESOPHAGOSCOPY DILATE ESOPHAGUS BALLOON 30 MM [33777] - Patient denies changes since last seen [...] left ear Unspecified osteoarthritis, unspecified site Arthritis Mafmh-Uadsvisfg-Usjdd pattern Asymptomatic, does not see cardiology Family [...] date: 1990 Quit date: 2000 Years since quittin. Smokeless tobacco: Never Vaping Use Vaping Use: Never used Substance Use Topics Alcohol use: Not Currently Comment: Alcoholic Drinks/day: Quit consuming alcohol in remote past Drug use: Not Currently Types: Morphine SURGICAL HISTORY: Past Surgical History: Procedure Laterality Date ESOPHAGEAL DILATION x2 ESOPHAGOGASTRODUODENOSCOPY N/A Esophagogastroduodenoscopy from [facility] FEEDING TUBE PLACEMENT N/A Now removed LARYNGOSCOPY N/A Laryngoscopy from [facility] LARYNGOSCOPY 02/19/2022 LUNG SURGERY OTHER SURGICAL HISTORY N/A Neck dissection modified radical from [facility] OTHER SURGICAL HISTORY N/A Percutaneous endoscopic gastrostomy tube removal from [facility] OTHER SURGICAL HISTORY N/A Laryngectomy from [facility] OTHER SURGICAL HISTORY N/A Trachectomy from [facility] PARTIAL LARYNGECTOMY TRACHEOSTOMY TUBE PLACEMENT Allergies Allergen [...] card, photo ID, along with power of contracts attorney, guardianship or advanced directives if applicable Do [...] Pav CC Head, Neck & Respiratory 800 [facility], 2nd [place] [address] 07/17/2024 1:30 PM EST Appointment [facility] G Radiology [address] [place] [address] 07/20/2024 2:50 PM EST Office Visit Pav CC Head, Neck & Respiratory 800 [facility], [address] [place] [address] Divine Carpenter MD 800 [facility] [address] [place] [address] documented as of this encounter Procedures Procedure Name Priority Date/Time Associated Diagnosis Comments ESOPHAGOSCOPY, WITH DILATION 07/30/2023 1:45 PM EST Esophageal stenosis documented in this encounter Visit Diagnoses Diagnosis Esophageal stenosis- Primary Stricture and stenosis of esophagus documented in [...] documented as of this encounter Care Teams Water Commissioner Relationship Specialty Start Date End Date Michele Wright MD [address] [place] [address] PCP - General 10/11/20 Edgar Szymanski MD [address] [facility] [address] [place] [address] Radiation Oncologist Radiation Therapy 03/14/20 4 Shun Hurst MD [address] [place] [address] Surgeon Neurosurgery 02/24/21 Divine Carpenter MD 800 [facility] [address] [place] [address] Medical Oncologist Medical Oncology 06/13/21 documented as of this encounter
--- OUTSIDE RECORDS SUMMARY | 2024-05-03 13:35 | XMS_ITS | Encounter Summary ---
Author Organization Healthcare Address [address] [place] [id number] Care Team Providers Care Medical Claims Analyst Name Role Phone Michele Wright MD Primary Care Provider + [phone] Shun Hrust MD Unavailable [phone] Divine Carpenter MD Unavailable [phone] Ambika Cain CF-MANAGER BILLING Unavailable Unavailab le Encounter Details Date Type Department Care Team (Late Contact Info) Description 11/11/2023 Orders Only Pav CC Head, Neck & Respiratory 800 [facility], 2nd [place] [address] Divine Carpenter MD 800 [facility] 134 [place] [address] Social History Tobacco Use Types [...] CC Head, Neck & Respiratory [address] [facility], 2nd [place] [address] 07/17/2024 1:30 PM EST Appointment [facility] G Radiology [address] [place] [address] 07/20/2024 2:50 PM EST Office Visit Pav CC Head, Neck & Respiratory [address] [facility], 2nd [place] [address] Divine Carpenter MD 800 [facility] Efrain [facility] [address] [place] [address] documented as of this encounter Visit Diagnoses Not on filedocumented in this encounter Additional Health Concerns Assessment Noted Time A fall risk assessment has been complete d for the patient 07/12/2023 10:42 AM EST A Body Mass Index follow-up plan has been documented for the patient 07/23/2023 4:38 PM EST documented as of this encounter Care Teams Medical Claims Analyst Relationship Specialty Start Date End Date Michele Wright MD [address] [place] [address] PCP - General 10/11/20 Shun Hurst MD [address] [facility] [address] [place] [address] Surgeon Neurosurgery 02/24/21 Divine Carpenter MD [address] [facility] Diane Roth[facility]on [facility] [address] [place] [address] Medical Oncologist Medical Oncology 06/13/21 Ambika Cain CF-MANAGER BILLING Speech Language Pathologist Speech Pathology 10/06/23 documented as of this encounter
--- OUTSIDE RECORDS SUMMARY | 2024-05-03 13:35 | XMS_ITS | Encounter Summary ---
Author Organization [facility] Address [address] [place] [address] Care Team Providers Care Jordan Worker Name Role Phone Michele Wright MD Primary Care Provider + [phone] Shun Hurst MD Unavailable [phone] Divine Carpenter MD Unavailable [phone] Ambika Cain CF-ELECTRICIAN'S ASSISTANT Unavailable Unavailab le Reason for Visit * Reason Onset Date Comments Med Refill 12/27/2023 Encounter Details Date Type Department Care Team (Late Contact Info) Description 12/27/2023 Refill Pav CC Head, Neck & Respiratory 800 [facility], 2nd [place] [address] Ambika Ambriz, RN AMB-HEAD NECK AND RESPIRATORY [...] [facility], 2nd [place] [address] 07/17/2024 1:30 PM EST Appointment [facility] G Radiology [address] [place] [address] 07/20/2024 2:50 PM EST Office Visit Pav CC Head, Neck & Respiratory [address] [facility], 2nd [place] [address] Divine Carpenter MD 800 [facility] [address] [place] [address] documented as of this encounter Visit Diagnoses [...] documented as of this encounter Care Teams Jordan Worker Relationship Specialty Start Date End Date Michele Wright MD [address] [place] [address] PCP - General 10/11/20 Shun Hurst MD [address] [facility] [address] [place] [address] Surgeon Neurosurgery 02/24/21 Divine Carpenter MD [address] [facility] Diane [facility] [address] [place] [address] Medical Oncologist Medical Oncology 06/13/21 Ambika Cain CF-ELECTRICIAN'S ASSISTANT Speech Language Pathologist Speech Pathology 10/06/23 documented as of this encounter
--- OUTSIDE RECORDS SUMMARY | 2024-05-03 13:35 | XMS_ITS | Encounter Summary ---
Author Organization [facility] Address [address] [place] [address] Care Team Providers Care Manager Cargo Name Role Phone Michele Wright MD Primary Care Provider + [phone] Edgar Szymanski MD Unavailable [phone] Shun Hurst MD Unavailable [phone] Divine Carpenter MD Unavailable [phone] Reason for Visit * Reason Onset Date Comments Med Refill 10/05/2023 Encounter Details Date Type Department Care Team (Late Contact Info) Description 10/05/2023 Refill Pav CC Head, Neck & Respiratory 800 [facility], 2nd [place] [address] Ambika Ambriz, RN [facility]-HEAD NECK AND RESPIRATORY CLINIC Social History Tobacco [...] Pav CC Head, Neck & Respiratory 800 [facility], 2nd [place] [address] 07/17/2024 1:30 PM EST Appointment [facility] G Radiology [address] [place] [address] 07/20/2024 2:50 PM EST Office Visit Pav CC Head, Neck & Respiratory 800 [facility], 2nd [place] [address] Divine Carpenter MD 800 [facility] Diane Zuniga [facility] [address] [place] [address] documented as of this encounter Visit Diagnoses Not on filedocumented in this encounter Additional Health Concerns Assessment Noted Time A fall risk assessment has been complete d for the patient 07/12/2023 10:42 AM EST A Body Mass Index follow-up plan has been documented for the patient 07/23/2023 4:38 PM EST documented as of this encounter Care Teams Manager Cargo Relationship Specialty Start Date End Date Michele Wright MD [address] [place] [address] PCP - General 10/11/20 Edgar Szymanski MD 800 [facility] [address] [place] [address] Radiation Oncologist Radiation Therapy 03/14/20 4 Shun Hurst MD [address] [facility] [address] [place] [address] Surgeon Neurosurgery 02/24/21 Divine Carpenter MD 800 [facility] Diane Zuniga [facility] 134 [place] [address] Medical Oncologist Medical Oncology 06/13/21 documented as of this encounter
--- OUTSIDE RECORDS SUMMARY | 2024-05-03 13:35 | XMS_ITS | Encounter Summary ---
Author Organization [facility] Address [address] [place] [address] Care Team Providers Care Turntable Worker Name Role Phone Michele Wright MD Primary Care Provider + [phone] Shun Hurst MD Unavailable [phone] Divine Carpenter MD Unavailable [phone] Ambika Cain CF-PROCEDURE TECH Unavailable Unavailab le Encounter Details Date Type Department Care Team (Latest Contact Info) Description 01/10/2024 Travel Social History Tobacco Use Types Packs/Day [...] & Respiratory [address] [place] [address] 07/17/2024 1:30 PM EST Appointment [facility] G Radiology [address] [place] [address] 07/20/2024 2:50 PM EST Office Visit Pav CC Head, Neck & Respiratory 800 [facility], 2nd [place] [address] Divine Carpenter MD 800 [facility] [address] [place] [address] documented as of this encounter Visit Diagnoses Not on filedocumented in this encounter Additional Health Concerns Assessment Noted Time A fall risk assessment has been complete d for the patient 07/12/2023 10:42 AM EST A Body Mass Index follow-up plan has been documented for the patient 01/11/2024 1:05 AM EDT documented as of this encounter Care Teams Turntable Worker Relationship Specialty Start Date End Date Michele Wright MD [address] [place] [address] PCP - General 10/11/20 Shun Hurst MD [address] [facility] [address] [place] [address] Surgeon Neurosurgery 02/24/21 Divine Carpenter MD 800 [facility] 134 [place] [address] Medical Oncologist Medical Oncology 06/13/21 Ambika Cain CF-PROCEDURE TECH Speech Language Pathologist Speech Pathology 10/06/23 documented as of this encounter
--- OUTSIDE RECORDS SUMMARY | 2024-05-03 13:35 | XMS_ITS | Encounter Summary ---
Author Organization Healthcare Address [address] [place] [id number] Care Team Providers Care Reconciliation Analyst Name Role Phone Michele Wright MD Primary Care Provider + [phone] Edgar Szymanski MD Unavailable [phone] Shun Hurst MD Unavailable [phone] Divine Carpenter MD Unavailable [phone] Encounter Details Date Type Department Care Team (Late st Contact Info) Description 07/27/2023 Telephone [facility] [address], [address] [place] [address] Duarte Marin MD [address] [place] [address] Social History Tobacco Use Types [...] CC Head, Neck & Respiratory 800 [facility], 2nd [place] [address] 07/17/2024 1:30 PM EST Appointment PAV G Radiology [address] [place] [address] 07/20/2024 2:50 PM EST Office Visit Pav CC Head, Neck & Respiratory 800 [facility], 2nd [place] [address] Divine Carpenter MD 800 [facility] Diane Zuniga [facility] [address] [place] [address] documented as of this encounter Visit Diagnoses Not on filedocumented in this encounter Additional Health Concerns Assessment Noted Time A fall risk assessment has been complete d for the patient 07/12/2023 10:42 AM EST A Body Mass Index follow-up plan has been documented for the patient 07/23/2023 4:38 PM EST documented as of this encounter Care Teams Reconciliation Analyst Relationship Specialty Start Date End Date Michele Wright MD [address] [place], [place] [address] PCP - General 10/11/20 Edgar Szymanski MD 800 [facility] [address] [place] [address] Radiation Oncologist Radiation Therapy 03/14/20 4 Shun Hurst MD [address] [facility] [address] [place] [address] Surgeon Neurosurgery 02/24/21 Divine Carpenter MD 800 [facility] Diane Zuniga [facility] 134 [place] [address] Medical Oncologist Medical Oncology 06/13/21 documented as of this encounter
--- OUTSIDE RECORDS SUMMARY | 2024-05-03 13:35 | XMS_ITS | Encounter Summary ---
Author Organization Healthcare Address [address] [place] [address] Care Team Providers Care Cleaner And Dyer Name Role Phone Michele Wright MD Primary Care Provider + [phone] Shun Hurst MD Unavailable [phone] Divine Carpenter MD Unavailable [phone] Ambika Cain CF-HEEL REDUCER Unavailable Unavailab le Reason for Visit * Reason Onset Date Comments Med Refill 11/29/2023 Encounter Details Date Type Department Care Team (Late Contact Info) Description 11/29/2023 Refill Pav [facility] Head[facility] Neck & Respiratory [address] [facility] [address] [place] [address] Li Burch, RN Social History Tobacco Use Types Packs/Day Years [...] Upcoming Encounters Date Type Department Care Team ([facility] Contact Info) Description 07/17/2024 12:30 PM EST Clinical Support Pav [facility] Head[facility] Neck & Respiratory [address] [facility] [address] [place] [address] 07/17/2024 1:30 PM EST Appointment PAV G Radiology [address] [place] [address] 07/20/2024 2:50 PM EST Office Visit [facility] Head[facility] Neck [facility] Respiratory [address] [place] [address] Divine Carpenter MD 800 [facility] [address] [place] [address] documented as of this encounter Visit Diagnoses Not on filedocumented in this encounter Additional Health Concerns Assessment Noted Time A fall risk assessment has been complete d for the patient 07/12/2023 10:42 AM EST A Body Mass Index follow-up plan has been documented for the patient 07/23/2023 4:38 PM EST documented as of this encounter Care Teams Cleaner And Dyer Relationship Specialty Start Date End Date Michele Wright MD [address] [place] [address] PCP - General 10/11/20 Shun Hurst MD [address] [facility] [address] [place] [address] Surgeon Neurosurgery 02/24/21 Divine Carpenter MD 800 [facility] [address] [place] [address] Medical Oncologist Medical Oncology 06/13/21 Ambika Cain CF-HEEL REDUCER Speech Language Pathologist Speech Pathology 10/06/23 documented as of this encounter
--- OUTSIDE RECORDS SUMMARY | 2024-05-03 13:36 | XMS_ITS | Encounter Summary ---
Author Organization Healthcare Address [address] [id number] Care Team Providers Care Salvage Winder Name Role Phone Michele Wright MD Primary Care Provider + [phone] Edgar Szymanski MD Unavailable [phone] Shun Hurst MD Unavailable [phone] Divine Carpenter MD Unavailable [phone] Encounter Details Date Type Department Care Team (Late st Contact Info) Description 07/23/2023 Telephone [facility] [address], [address] [place] [address] Duarte Marin MD [address] [place] [address] Social History Tobacco Use Types [...] [facility] Head[facility] Neck & Respiratory 800 [facility], 2nd [place] [address] 07/17/2024 1:30 PM EST Appointment P[facility] G Radiology [address] [place] [address] 07/20/2024 2:50 PM EST Office Visit Pav [facility] Head[facility] Neck & Respiratory [address] [facility], 2nd [place] [address] Divine Carpenter MD 800 [facility] Diane Zuniga [facility] [address] [place] [address] documented as of this encounter Visit Diagnoses Not on filedocumented in this encounter Additional Health Concerns Assessment Noted Time A fall risk assessment has been complete d for the patient 07/12/2023 10:42 AM EST A Body Mass Index follow-up plan has been documented for the patient 07/23/2023 4:38 PM EST documented as of this encounter Care Teams Salvage Winder Relationship Specialty Start Date End Date Michele Wright MD [address] [place], [place] [id number] PCP - General 10/11/20 dEgar Szymanski MD 800 [facility] [address] [place] [address] Radiation Oncologist Radiation Therapy 03/14/20 4 Shun Hurst MD [address] [facility] [address] [place] [address] Surgeon Neurosurgery 02/24/21 Divine Carpenter MD 800 [facility] Diane Zuniga [facility] [address] [place] [address] Medical Oncologist Medical Oncology 06/13/21 documented as of this encounter
--- OUTSIDE RECORDS SUMMARY | 2024-05-03 13:36 | XMS_ITS | Encounter Summary ---
Author Organization [facility] Address [address] [place], [place] [id number] Care Team Providers Care Mobile Home Technician Name Role Phone Michele Wright MD Primary Care Provider + [phone] Edgar Szymanski MD Unavailable [phone] Shun Hurst MD Unavailable [phone] Divine Carpenter MD Unavailable [phone] Reason for Visit * Reason Onset Date Comments [facility] Lab/home Health 06/09/2023 Encounter Details Date Type Department Care Team (Late st Contact Info) Description 06/09/2023 Telephone Pav [facility] Head[facility] Neck & Respiratory 800 [facility], [address]nd [place] [address] Divine Carpenter MD 800 [facility] [address] [place] [address] [facility] Lab/home Health Social History Tobacco Use [...] encounter Miscellaneous Notes * Telephone Encounter - Ambika Ambriz RN - 06/09/2023 3:36 PM EST faxed * Telephone Encounter - Fina Huffman - 06/09/2023 2:11 PM EST Lab /Home Health Orders Patient: Anibal Barreto Type of Order: port flush Company and Caller Name: [facility] Fax Number (if outside ): [phone] Best contact number: [phone] Optimal time of day to reach caller: ANYTIME Additional comments/information from caller: None Note: Please do not reply to this message. Follow-up communication and further actions as a result of this message need to be communicated with the patient directly, if the patient is not active onMyChart. If the patient is active on MyChart, they will receive notification of the communication/outcome via MyChart. documented in this encounter Plan of Treatment Upcoming Encounters Date Type Department Care Team (Late st Contact Info) Description 07/17/2024 12:30 PM EST Clinical Support Pav [facility] Head[facility] Neck & Respiratory [address] [facility], [address]nd [place] [address] 07/17/2024 1:30 PM EST Appointment PAV G Radiology [address] [place] [address] 07/20/2024 2:50 PM EST Office Visit Pav [facility] Head[facility] Neck & Respiratory [address] [facility], [address]nd [place] [address] Divine Carpenter MD 800 [facility] [address] [place] [address] documented as of this encounter Visit Diagnoses Not on filedocumented in this encounter Additional Health Concerns Assessment Noted Time A fall risk assessment has been complete d for the patient 03/11/2023 9:30 AM EDT A Body Mass Index follow-up plan has been documented for the patient 09/10/2022 11:09 AM EDT documented as of this encounter Care Teams Mobile Home Technician Relationship Specialty Start Date End Date Michele Wright MD [address] [place] [address] PCP - General 10/11/20 Edgar Szymanski MD [address] [place] [address] Radiation Oncologist Radiation Therapy 03/14/20 4 Shun Hurst MD [address] [place] [address] Surgeon Neurosurgery 02/24/21 Divine Carpenter MD [address] [place] [address] Medical Oncologist Medical Oncology 06/13/21 documented as of this encounter
--- OUTSIDE RECORDS SUMMARY | 2024-05-03 13:36 | XMS_ITS | Encounter Summary ---
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) Port-A-Cath in place Procedures IR Port Placement 5+ Years Consult to Interventional Radiology Divine Carpenter MD 800 [facility] [address] [place] [address] Phone: tel: fax: Referral ID Status Reason Start Date Expiration Date V isits Requested Visits Authorized [id number] Pending Review 07/09/2023 01/07/2025 1 1 Encounter Details Date Type Department Care Team (Late st Contact Info) Description 07/09/2023 Orders Only Pav [facility] Head[facility] Neck & Respiratory 800 [facility], [address]nd [place] [address] Ambika Ambriz, RN [facility] Cancer of larynx (CMS/HCC) (Primary Dx); Tracheostomy dependent (CMS/HCC); Port-A-Cath in place Social History Tobacco Use Types Packs/Day Years [...] Upcoming Encounters Date Type Department Care Team ([facility] st Contact Info) Description 07/17/2024 12:30 PM EST Clinical Support Pav [facility] Head, Neck & Respiratory 800 [facility], [address]nd [place] [address] 07/17/2024 1:30 PM EST Appointment PAV G Radiology [address] [place] [address] 07/20/2024 2:50 PM EST Office Visit Pav [facility] Head[facility] Neck & Respiratory [address] [facility], [address]nd [place] [address] Divine Carpenter MD 800 [facility] [address] [place] [address] Scheduled Orders Name Type Priority Associated Diagnoses Orde r Schedule IR Port Placement 5+ Years Imaging Routine Cancer of larynx (CMS/HCC) Tracheostomy dependent (CMS/HCC) Port-A-Cath in place Expected: 07/09/2023, Expires: 07/09/2024 documented as of this encounter Visit Diagnoses Diagnosis 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, unspecified site Tracheostomy dependent (CMS/HCC) Tracheostomy status Port-A-Cath in place documented in this encounter Additional Health Concerns Assessment Noted Time A fall risk assessment has been complete d for the patient 03/11/2023 9:30 AM EDT A Body Mass Index follow-up plan has been documented for the patient 07/08/2023 9:01 AM EST documented as of this encounter Care Teams Optical Model Maker And Tester Relationship Specialty Start Date End Date Michele Wright MD [address] [place] [address] PCP - General 10/11/20 Edgar Szymanski MD 800 [facility] [address] [place] [address] Radiation Oncologist Radiation Therapy 03/14/20 4 Shun Hurst MD [address] [facility] [address] [place] [address] Surgeon Neurosurgery 02/24/21 Divine Carpenter MD [address] [facility] [address] [place] [address] Medical Oncologist Medical Oncology 06/13/21 documented as of this encounter
--- OUTSIDE RECORDS SUMMARY | 2024-05-03 13:36 | XMS_ITS | Encounter Summary ---
Author Organization [facility] Address [address] [place], [place] [address] Care Team Providers Care Anime Designer Name Role Phone Michele Wright MD Primary Care Provider + [phone] Edgar Szymanski MD Unavailable [phone] Shun Hurst MD Unavailable [phone] Divine Carpenter MD Unavailable [phone] Encounter Details Date Type Department Care Team (Late st Contact Info) Description 05/17/2023 Orders Only Pav [facility] Head, Neck & Respiratory [address] [facility], 2nd [place] [address] Divine Carpenter MD 800 [facility] [address] [place] [address] Social History Tobacco Use Types Packs/Day Years [...] Pav [facility] Head, Neck & Respiratory [address] [facility], 2nd [place] [address] 07/17/2024 1:30 PM EST Appointment PAV G Radiology [address] [place] [address] 07/20/2024 2:50 PM EST Office Visit Pav CC Head, Neck & Respiratory [address] [facility], 2nd [place] [address] Divine Carpenter MD [address] [facility] Diane Zuniga [facility] [address] [place] [address] documented as of this encounter Visit Diagnoses Not on filedocumented in this encounter Additional Health Concerns Assessment Noted Time A fall risk assessment has been complete d for the patient 03/11/2023 9:30 AM EDT A Body Mass Index follow-up plan has been documented for the patient 09/10/2022 11:09 AM EDT documented as of this encounter Care Teams Anime Designer Relationship Specialty Start Date End Date Michele Wright MD [address] [place] [address] PCP - General 10/11/20 Edgar Szymanski MD 800 [facility] [address] [place] [address] Radiation Oncologist Radiation Therapy 03/14/20 4 Shun Hurst MD [address] [facility] [address] [place] [address] Surgeon Neurosurgery 02/24/21 Divine Carpenter MD 800 [facility] Diane Zuniga [address] [place] [address] Medical Oncologist Medical Oncology 06/13/21 documented as of this encounter
--- OUTSIDE RECORDS SUMMARY | 2024-05-03 13:36 | XMS_ITS | Encounter Summary ---
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 History of laryngeal cancer Procedures CT Chest w IV Contrast Divine Carpenter MD [address] [address] Phone: tel: fax: Referral ID Status Reason Start Date Expiration Date Visits Re quested Visits Authorized [id number] Closed 07/10/2023 01/08/2025 1 1 * Imaging (Routine) - Closed Specialty Diagnoses / Procedures Referred By Contac Referred To Contact Radiology Diagnoses 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 History of laryngeal cancer Procedures CT Soft Tissue Neck w IV Contrast Divine Carpenter MD [address] [address] Phone: tel: fax: Referral ID Status Reason Start Date Expiration Date Visits Re quested Visits Authorized [id number] Closed 07/10/2023 01/08/2025 1 1 Reason for Visit * Reason Comments Follow-up Encounter Details Date Type Department Care Team (Late st Contact Info) Description 07/12/2023 11:00 AM EST Office Visit Pav CC Head, Neck & Respiratory [address] [facility] [place] [address] Divine Carpenter MD [address] [facility] [address] [facility] [address] [place] [address] 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 (Primary Dx); History of laryngeal cancer; Neoplasm related pain; Neuropathy of right upper extremity; Cancer of larynx (CMS/HCC); Aphonia Social History Tobacco Use Types Packs/Day Years Used Date Smoking Tobacco: Former Cigarettes 2 10 1 - 2000 Smokeless Tobacco: Never Tobacco Cessation:Counseling Given: No Alcohol Use Standard Drinks/Week Comments Not Currently [...] Sign Reading Time Taken Comments Blood Pressure 157/87 07/12/2023 10:37 AM EST Pulse 73 07/12/2023 10:37 AM EST Temperature 37.3 ??C (99.1 ??F) 07/12/2023 10:[address] Respiratory Rate 18 07/12/2023 10:37 AM EST Oxygen Saturation 91% 07/12/2023 10:37 AM EST Inhaled Oxygen Concentration - - Weight 104 kg (230 lb 6.1 oz) 07/12/2023 10:37 A M EST Height - - Body Mass Index 33.74 03/11/2023 9:32 AM EDT documented in this encounter Miscellaneous Notes * Progress Notes - Divine Carpenter MD - 07/12/2023 11:00 AM EST MEDICAL ONCOLOGY FOLLOW-UP NOTE Patient Information Patient Name: Anibal Barreto Date of : 1965 REFERRING PHYSICIAN: Michele Wright MD Encounter Date: 07/12/2023 Treatment Diagnosis: Cancer Staging Cancer of larynx [...] followup after treatment of head and neck cancer. His has been diagnosed with pancreatic cancer and is doing poorly. 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 Cancer of larynx ([facility]) 02/19/2017 Cancer Staged Staging form: Larynx - Glottis, AJCC 8th Edition, Clinical stage from 02/19/2017: Stage ZULAY (cT3, cN2c, cM0) - Signed by Divine Carpenter MD on 10/14/2020 03/18/2017 Initial Diagnosis Cancer of larynx ([facility]) 03/22/2018 Cancer Staged Staging form: Larynx - Glottis, AJCC 8th Edition, Pathologic stage from 03/22/2018: Stage III (rpT3, pN0, cM0) - Signed by Divine Carpenter MD on 10/14/2020 11/21/2019 Cancer Staged Staging form: Larynx - Glottis, AJCC 8th Edition, Pathologic stage from 11/21/2019: Stage IVC (rpTX,pNX, pM1) - Signed by Divine Carpenter MD on 10/14/2020 03/14/2020 - 11/24/2020 Research Study Participant [id number]: Pembrolizumab Every 42 Days Every 84 Days [...] dysphagia,voice changes. Problem List and Medications Reviewed in this encounter by me personally Objective Performance Status 0: Fully active, able to carry on all pre-disease performance without restriction Blood pressure (!) 157/87, pulse 73, temperature 37.3 ??C (99.1 ??F), temperature source Oral, resp. rate 18, weight 104 kg (230 lb 6.1 oz), SpO2 91 %. EXAM Physical Exam Constitutional: General: He is [...] when he puts his finger on the tracheostomy Cardiovascular: Rate and Rhythm: Normal rate and regular rhythm. Pulmonary: Effort: No respiratory distress. Breath sounds: Normal breath sounds. No wheezing, rhonchi or rales. Abdominal: General: Abdomen is flat. Bowel sounds are normal. Palpations: Abdomen is soft. There is no mass. Tenderness: There is no abdominal tenderness. Musculoskeletal: General: Normal range of motion. Cervical back: Rigidity (trach with valve intact) present. Comments: Normal pulse in right arm, tingling in hand Skin: General: Skin is warm and dry. Findings: Lesion (right hand serpiginous borders, scaly and pruritic) present. Neurological: General: No focal deficit present. Mental Status: He is alert and oriented to person, place, and time. Mental status is at baseline. LABORATORIES STUDIES: reviewed by me personally today to monitor for cancer related drug toxicity and treatment related jail toxicity CBC WBC 5.85 Hgb 14.6 PLT 151 HCT 45.7 Lab Results Component Value Date NEUTROABS 4.24 07/09/2023 BMPL Na 143 Cl 103 BUN 15 Gluc 119 K 4.0 Co2 28 Creat 0.97 LIVER FUNCTION TESTING Tot Prot 7.4 AST 20 Tot bili 0.8 ALT 16 Alkphos 79 Ca 8.9 Lab Results Component Value Date TSH 0.39 (L) 07/09/2023 RADIOLOGY: I independently visualized the recent imaging below based on the patient's symptoms and oncologic history. CT Chest w IV Contrast Result Date: 07/09/2023 Impression: No evidence of disease progression. CRITICAL RESULT: No. COMMUNICATION: Per this written report. Drafted by Jose Samuel MD on 07/09/2023 9:54 PM Final report signed by Jose Samuel MD on07/09/2023 9:[address] neck Viewed only by me Stable without new disease seen Assessment/Plan 1. Cancer management : Cancer Staging Cancer of larynx (CMS/HCC), Staging form: Larynx - Glottis, AJCC 8th Edition, Pathologic: Stage IVC (recurrent) - Had received treatment - I independently visualized and reviewed the current radiology findings with the patient in detail and answered all questions. I agree that this [...] medicinal marijuana due to his larynx cancer. Letter written and mailed to patient. - The patient continues to experience pain directly related to their neoplasm requiring monitoring and adjustments in dosage and frequency of narcotic and adjunctive medications by me. KEVAN report reviewed and will be reviewed periodically 3. 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 Correia soon with MBS and potential need foresophageal dilation versus peg tube placement 4. Hypothyroidism - decreased levothyroxine to 125mg, and TSH is WNL - This will be periodically monitored as we continue therapy, due to the potential for worsening ofthyroid function from radiation and systemic cancer therapy. 5. Carotid narrowing - dopplers of bilateral necks and then to see vascular surgery if there is significant stenosis confirmed by doppler. Will also get right UE arterial studies given severity of vascular disease seen on CT and his worsening symptoms. Addendum: CT neck final report received 07/13/23 *at 8:09 am IMPRESSION: Status post total laryngectomy and tracheostomy. No new enhancing lesion at the surgical site suggest recurrent tumor. Diffuse thickening of pharyngeal soft tissues, most likely representing posttreatment change. No significant cervical adenopathy is present. Redemonstration of moderate bony spinal stenosis stenosis at C2-C3 secondary to degenerative changes and ossification of the posterior longitudinal ligament. Divine Carpenter MD Orders Placed This Encounter Procedures CT Soft Tissue Neck w IV Contrast CT Chest w IV Contrast Thyroid Stimulating Hormone, Plasma Comprehensive Metabolic Panel, Plasma CBC and Differential documented in this encounter Plan of Treatment Upcoming Encounters Date Type Department Care Team (Late st Contact Info) Description 07/17/2024 12:30 PM EST Clinical Support Pav CC Head, Neck & Respiratory [address] [facility] [place] [address] 07/17/2024 1:30 PM EST Appointment [facility] [address] [place] [address] 07/20/2024 2:50 PM EST Office Visit Pav CC Head, Neck & Respiratory [address] [facility] [place] [address] Divine Carpenter MD [address] [facility] [address] [place] [address] documented as of this encounter Results * CT Chest w [...] error, please notify the sender immediately at [phone] and permanently delete the original report and destroy any copies or printouts. Narrative 01/10/2024 3:47 PM EDT [facility] ? - Phone Outpatient NAME: Anibal Barreto ?? DATE OF EXAM: 01/10/2024 Patient No: ??[id number] Physician: ??Jayden^Divine Date of : ??1965 Past [...] Procedure Note Elias Washburn MD - 01/10/2024 [facility] - Phone Outpatient NAME: Anibal Barreto DATE OF EXAM: 01/10/2024 Patient No: [id number] Physician: Lynette Date of : 1965 Past Medical/Surgical History (entered by technologist): Symptoms/Reason For Exam (entered by technologist): Head/neck cancer,assess treatment response Tech Notes (entered by technologist): Given - iohexol (OMNIPaque) 300MG/ML injection 100 mL Additional History (per [facility]): Per the electronic medicalrecord: Squamous cell carcinoma of the vallecula, right piriform sinus,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 us Divine Carpenter MD IM CT PROCEDURES Final Resu lt * (ABNORMAL) CBC and Differential (01/10/2024 10:28 AM EDT) WBC Count 6.38 3.70 - 10.30 10*3/uL LAB HEMATOLOGY METHOD 01/10/2024 12:03 PM EDT [facility] RBC Count 5.01 4.60 - 6.10 10*6/uL LAB HEMATOLOGY METHOD 01/10/2024 12:03 PM EDT [facility] HGB 14.3 13.7 - 17.5 g/dL LAB HEMATOLOGY METHOD 01/10/2024 12:03 PM EDT [facility] HCT 44.2 40.0 - 51.0 % LAB HEMATOLOGY METHOD 01/10/2024 12:03 PM EDT [facility] Platelet Count 149(L) 155 - 369 10*3/uL LAB HEMATOLOGY METHOD 01/10/2024 12:03 PM EDT [facility] MCV 88 79 - 98 fL LAB HEMATOLOGY METHOD 01/10/2024 12:03 PM EDT [facility] MCH 28.5 26.0 - 32.0 pg LAB HEMATOLOGY METHOD 01/10/2024 12:03 PM EDT [facility] MCHC 32.4 30.7 - 35.5 g/dL LAB HEMATOLOGY METHOD 01/10/2024 12:03 PM EDT [facility] RDW 13.3 11.5 - 14.5 % LAB HEMATOLOGY METHOD 01/10/2024 12:03 PM EDT [facility] MPV 11.4 8.8 - 12.5 fL LAB HEMATOLOGY METHOD 01/10/2024 12:03 PM EDT [facility] nRBC 0.0 <=0.0 per 100 WBCs LAB HEMATOLOGY METHOD 01/10/2024 12:03 PM EDT [facility] Differential Type Automated LAB HEMATOLOGY METHOD 01/10/2024 12:03 PM EDT [facility] Neutrophils % 79.0 % LAB HEMATOLOGY METHOD 01/10/2024 12:03 PM EDT [facility] Lymphocytes % 9.0 % LAB HEMATOLOGY METHOD 01/10/2024 12:03 PM EDT [facility] Monocytes % 7.0 % LAB HEMATOLOGY METHOD 01/10/2024 12:03 PM EDT [facility] Eosinophils % 3.0 % LAB HEMATOLOGY METHOD 01/10/2024 12:03 PM EDT [facility] Basophils % 1.0 % LAB HEMATOLOGY METHOD 01/10/2024 12:03 PM EDT [facility] Immature Granulocytes % 1.0 % LAB HEMATOLOGY METHOD 01/10/2024 12:03 PM EDT [facility] Neutrophils Absolute 5.16 1.60 - 6.10 10*3/uL LAB HEMATOLOGY METHOD 01/10/2024 12:03 PM EDT [facility] Lymphocytes Absolute 0.57(L) 1.20 - 3.90 10*3/uL LAB HEMATOLOGY METHOD 01/10/2024 12:03 PM EDT [facility] Monocytes Absolute 0.43 0.30 - 0.90 10*3/uL LAB HEMATOLOGY METHOD 01/10/2024 12:03 PM EDT [facility] Eosinophils Absolute 0.16 0.00 - 0.50 10*3/uL LAB HEMATOLOGY METHOD 01/10/2024 12:03 PM EDT [facility] Basophils Absolute 0.03 0.00 - 0.10 10*3/uL LAB HEMATOLOGY METHOD 01/10/2024 12:03 PM EDT [facility] Immature Granulocytes Absolute 0.03 0.00 - 0.06 10*3/uL LAB HEMATOLOGY METHOD 01/10/2024 12:03 PM EDT [facility] Blood Venous blood specimen / Unknown Venipuncture / Unknown 01/10/2024 10:28 AM EDT 01/10/2024 11:53 AM EDT Narrative [facility] - 01/10/2024 12:03 PM EDT Therapeutic decision making should be based on absolute values, rather than percentages. us Divine Carpenter MD LAB BLOOD ORDERABLES Final R esult [facility] [address] [place] [id number] * (ABNORMAL) Comprehensive Metabolic Panel, Plasma (01/10/2024 10:28 AM EDT) Glucose, Plasma 102(H) 74 - 99 mg/dL 01/10/2024 12:19 PM EDT [facility] BUN, Plasma 18 7 - 21 mg/dL 01/10/2024 12:19 PM EDT [facility] Creatinine, Plasma 0.95 0.70 - 1.20 mg/dL 01/10/2024 12:19 PM EDT [facility] BUN/Creatinine Ratio 19 01/10/2024 12:19 PM EDT [facility] Sodium, Plasma 138 136 - 145 mmol/L 01/10/2024 12:19 PM EDT [facility] Potassium, Plasma 3.6(L) 3.7 - 4.8 mmol/L 01/10/2024 12:19 PM EDT [facility] Chloride, Plasma 99 97 - 107 mmol/L 01/10/2024 12:19 PM EDT [facility] CO2, Plasma 31(H) 22 - 29 mmol/L 01/10/2024 12:19 PM EDT [facility] Anion Gap 8 6 - 16 mmol/L 01/10/2024 12:19 PM EDT [facility] Total Calcium, Plasma 9.4 8.9 - 10.2 mg/dL 01/10/2024 12:19 PM EDT [facility] Total Protein 6.9 6.3 - 7.9 g/dL 01/10/2024 12:19 PM EDT [facility] Albumin, Plasma 4.1 3.5 - 5.2 g/dL 01/10/2024 12:19 PM EDT [facility] AST, Plasma 21 10 - 50 U/L 01/10/2024 12:19 PM EDT [facility] ALT, Plasma 13 10 - 50 U/L 01/10/2024 12:19 PM EDT [facility] Alkaline Phosphatase, Plasma 96 40 - 115 U/L 01/10/2024 12:19 PM EDT [facility] Total Bilirubin, Plasma 0.8 0.2 - 1.1 mg/dL 01/10/2024 12:19 PM EDT [facility] eGFRcr 93.4 mL/min/1.7 3m*2 01/10/2024 12:19 PM EDT [facility] Comment:Reported eGFRcr in m L/min/1.73m2 is based the CKD-EPI 2020 equation that does not use a race coefficient. Blood Venous blood specimen / Unknown Venipuncture / Unknown 01/10/2024 10:28 AM EDT 01/10/2024 11:43 AM EDT Divine Carpenter MD LAB BLOOD ORDERABLES Final R esult Performing Organization Address City/[facility] [[email or web address]] Co de Phone Number [facility] [address] [place] [address] * Thyroid Stimulating Hormone, Plasma (01/10/2024 10:28 AM EDT) Thyroid Stimulating Hormone, Plasma 1.53 0.40 - 4.20 uIU/mL 01/10/2024 12:19 PM EDT [facility] Blood Venous blood specimen / Unknown Venipuncture / Unknown 01/10/2024 10:28 AM EDT 01/10/2024 11:43 AM EDT Divine Carpenter MD LAB BLOOD ORDERABLES Final R esult [facility] [address] [place] [address] documented in this encounter Visit Diagnoses Diagnosis 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- Primary History of laryngeal cancer Personal history of malignant neoplasm of larynx Neoplasm related pain Neoplasm related pain (acute) (chronic) Neuropathy of right upper extremity 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, unspecified site Aphonia 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
--- OUTSIDE RECORDS SUMMARY | 2024-05-03 13:36 | XMS_ITS | Encounter Summary ---
Author Organization [facility] Address [address] [place] [address] Care Team Providers Care Damage Adjuster Name Role Phone Michele Wright MD Primary Care Provider + [phone] Edgar Szymanski MD Unavailable [phone] Shun Hurst MD Unavailable [phone] Divine Carpenter MD Unavailable [phone] Reason for Visit * Reason Comments Labs Only IV start/lab draw Encounter Details Date Type Department Care Team (Latest Contact Info) Description 07/09/2023 1:00 PM EST Clinical Support Pav CC Head, Neck & Respiratory [address] [facility], [address]nd [place] [address] History of laryngeal cancer; 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 Social History Tobacco Use Types Packs/Day Years [...] Pav CC Head, Neck & Respiratory [address] [facility], 2nd [place] [address] 07/17/2024 1:30 PM EST Appointment PAV G Radiology [address] [place] [address] 07/20/2024 2:50 PM EST Office Visit Pav CC Head, Neck & Respiratory [address] [facility], [address]nd [place] [address] Divine Carpenter MD [address] [facility] [address] [place] [address] documented as of this encounter Procedures Procedure Name Priority Date/Time Associated Diagnosis Comments CBC WITH AUTO DIFFERENTIAL Routine 07/09/2023 1:33 PM EST History of laryngeal cancer TSH Routine 07/09/2023 1:33 PM EST 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 COMPREHENSIVE METABOLIC PANEL, PLASMA Routine 07/09/2023 1:33 PM EST History of laryngeal cancer documented in this encounter Results * (ABNORMAL) Comprehensive Metabolic Panel, Plasma (07/09/2023 1:33 PM EST) Glucose, Plasma 119(H) 74 - 99 mg/dL 07/09/2023 2:24 PM EST [facility] BUN, Plasma 15 7 - 21 mg/dL 07/09/2023 2:24 PM EST [facility] Creatinine, Plasma 0.97 0.80 - 1.30 mg/dL 07/09/2023 2:24 PM EST [facility] BUN/Creatinine Ratio 15 07/09/2023 2:24 PM EST [facility] Sodium, Plasma 143 136 - 145 mmol/L 07/09/2023 2:24 PM EST [facility] Potassium, Plasma 4.0 3.7 - 4.8 mmol/L 07/09/2023 2:24 PM EST [facility] Chloride, Plasma 103 97 - 107 mmol/L 07/09/2023 2:24 PM EST [facility] CO2, Plasma 28 22 - 29 mmol/L 07/09/2023 2:24 PM EST [facility] Anion Gap 12 6 - 16 mmol/L 07/09/2023 2:24 PM EST [facility] Total Calcium, Plasma 8.9 8.9 - 10.2 mg/dL 07/09/2023 2:24 PM EST [facility] Total Protein 7.4 6.3 - 7.9 g/dL 07/09/2023 2:24 PM EST [facility] Albumin, Plasma 4.1 3.5 - 5.2 g/dL 07/09/2023 2:24 PM EST [facility] AST, Plasma 20 10 - 50 U/L 07/09/2023 2:24 PM EST [facility] Comment:Hemolyzed, result ma y be falsely increased. ALT, Plasma 16 10 - 50 U/L 07/09/2023 2:24 PM EST [facility] Alkaline Phosphatase, Plasma 79 40 - 115 U/L 07/09/2023 2:24 PM EST [facility] Total Bilirubin, Plasma 0.8 0.2 - 1.1 mg/dL 07/09/2023 2:24 PM EST [facility] eGFRcr 91.1 mL/min/1.7 3m*2 07/09/2023 2:24 PM EST [facility] Comment:Reported eGFRcr in m L/min/1.73m2 is based the CKD-EPI 2020 equation that does not use a race coefficient. Blood Venous blood specimen / Unknown IV Start, Use per Policy / Unknown 07/09/2023 1:33 PM EST 07/09/2023 1:45 PM EST us Divine Carpenter MD LAB BLOOD ORDERABLES Final R esult [facility] [address] [place] [address] * (ABNORMAL) CBC and Differential (07/09/2023 1:33 PM EST) WBC Count 5.85 3.70 - 10.30 10*3/uL LAB HEMATOLOGY METHOD 07/09/2023 1:56 PM EST [facility] RBC Count 5.22 4.60 - 6.10 10*6/uL LAB HEMATOLOGY METHOD 07/09/2023 1:56 PM [facility] HGB 14.6 13.7 - 17.5 g/dL LAB HEMATOLOGY METHOD 07/09/2023 1:56 PM EST [facility] HCT 45.7 40.0 - 51.0 % LAB HEMATOLOGY METHOD 07/09/2023 1:56 PM [facility] Platelet Count 151(L) 155 - 369 10*3/uL LAB HEMATOLOGY METHOD 07/09/2023 1:56 PM EST [facility] MCV 88 79 - 98 fL LAB HEMATOLOGY METHOD 07/09/2023 1:56 PM EST [facility] MCH 28.0 26.0 - 32.0 pg LAB HEMATOLOGY METHOD 07/09/2023 1:56 PM [facility] MCHC 31.9 30.7 - 35.5 g/dL LAB HEMATOLOGY METHOD 07/09/2023 1:56 PM [facility] RDW 13.8 11.5 - 14.5 % LAB HEMATOLOGY METHOD 07/09/2023 1:56 PM [facility] MPV 10.6 8.8 - 12.5 fL LAB HEMATOLOGY METHOD 07/09/2023 1:56 PM [facility] nRBC 0.0 <=0.0 per 100 WBCs LAB HEMATOLOGY METHOD 07/09/2023 1:56 PM [facility] Differential Type Automated LAB HEMATOLOGY METHOD 07/09/2023 1:56 PM [facility] Neutrophils % 72.0 % LAB HEMATOLOGY METHOD 07/09/2023 1:56 PM [facility] Lymphocytes % 15.0 % LAB HEMATOLOGY METHOD 07/09/2023 1:56 PM [facility] Monocytes % 10.0 % LAB HEMATOLOGY METHOD 07/09/2023 1:56 PM [facility] Eosinophils % 3.0 % LAB HEMATOLOGY METHOD 07/09/2023 1:56 PM [facility] Basophils % 0.0 % LAB HEMATOLOGY METHOD 07/09/2023 1:56 PM [facility] Immature Granulocytes % 0.0 % LAB HEMATOLOGY METHOD 07/09/2023 1:56 PM [facility] Neutrophils Absolute 4.24 1.60 - 6.10 10*3/uL LAB HEMATOLOGY METHOD 07/09/2023 1:56 PM [facility] Lymphocytes Absolute 0.86(L) 1.20 - 3.90 10*3/uL LAB HEMATOLOGY METHOD 07/09/2023 1:56 PM EST [facility] Monocytes Absolute 0.56 0.30 - 0.90 10*3/uL LAB HEMATOLOGY METHOD 07/09/2023 1:56 PM EST [facility] Eosinophils Absolute 0.16 0.00 - 0.50 10*3/uL LAB HEMATOLOGY METHOD 07/09/2023 1:56 PM EST [facility] Basophils Absolute 0.02 0.00 - 0.10 10*3/uL LAB HEMATOLOGY METHOD 07/09/2023 1:56 PM EST [facility] Immature Granulocytes Absolute 0.01 0.00 - 0.06 10*3/uL LAB HEMATOLOGY METHOD 07/09/2023 1:56 PM EST [facility] Blood Venous blood specimen / Unknown IV Start, Use per Policy / Unknown 07/09/2023 1:33 PM EST 07/09/2023 1:45 PM EST Narrative [facility] - 07/09/2023 1:56 PM EST Therapeutic decision making should be based on absolute values, rather than percentages. Divine Carpenter MD LAB BLOOD ORDERABLES Final R esult Performing Organization Address City/[facility] Co de Phone Number [facility] [address] [place] [address] * (ABNORMAL) Thyroid Stimulating Hormone, Plasma (07/09/2023 1:33 PM EST) Thyroid Stimulating Hormone, Plasma 0.39(L) 0.40 - 4.20 uIU/mL 07/09/2023 2:24 PM EST [facility] Blood Venous blood specimen / Unknown IV Start, Use per Policy / Unknown 07/09/2023 1:33 PM EST 07/09/2023 1:45 PM EST Divine Carpenter MD LAB BLOOD ORDERABLES Final R esult Performing Organization Address City/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 documented in this encounter Additional Health Concerns Assessment Noted Time A fall risk assessment has been complete d for the patient 03/11/2023 9:30 AM EDT A Body Mass Index follow-up plan has been documented for the patient 07/08/2023 9:01 AM EST documented as of this encounter Care Teams Damage Adjuster Relationship Specialty Start Date End Date Michele Wright MD [address] [place], [place] [id number] PCP - General 10/11/20 Edgar Szymanski MD [address] [facility] [address] [place] [address] Radiation Oncologist Radiation Therapy 03/14/20 4 Shun Hurst MD [address] [place] [address] Surgeon Neurosurgery 02/24/21 Divine Carpenter MD [address] [facility] [address] [place] [address] Medical Oncologist Medical Oncology 06/13/21 documented as of this encounter
--- OUTSIDE RECORDS SUMMARY | 2024-05-03 13:36 | XMS_ITS | Encounter Summary ---
Author Organization [facility] Address [address] [place] [address] Care Team Providers Care Retail Shift Manager Name Role Phone Michele Wright MD Primary Care Provider + [phone] Edgar Szymanski MD Unavailable [phone] Shun Hurst MD Unavailable [phone] Divine Carpenter MD Unavailable [phone] Encounter Details Date Type Department Care Team (Latest Contact Info) Description 07/09/2023 Travel Social History Tobacco Use Types Packs/Day [...] Head, Neck & Respiratory [address] [facility], 2nd [place] [address] 07/17/2024 1:30 PM EST Appointment [facility] G Radiology [address] [place] [address] 07/20/2024 2:50 PM EST Office Visit Pav CC Head, Neck & Respiratory [address] [facility], 2nd [place] [address] Divine Carpenter MD [address] [facility] [address] [facility] [address] [place] [address] documented as of this encounter Visit Diagnoses Not on filedocumented in this encounter Additional Health Concerns Assessment Noted Time A fall risk assessment has been complete d for the patient 03/11/2023 9:30 AM EDT A Body Mass Index follow-up plan has been documented for the patient 07/08/2023 9:01 AM EST documented as of this encounter Care Teams Retail Shift Manager Relationship Specialty Start Date End Date Michele Wright MD [address] [place], [place] [id number] PCP - General 10/11/20 Edgar Szymanski MD [address] [facility] [address] [place] [address] Radiation Oncologist Radiation Therapy 03/14/20 4 Shun Hurst MD [address] [place] [address] Surgeon Neurosurgery 02/24/21 Divine Carpenter MD [address] [facility] [address] Zuniga [facility] [address] [place] [address] Medical Oncologist Medical Oncology 06/13/21 documented as of this encounter
--- OUTSIDE RECORDS SUMMARY | 2024-05-03 13:36 | XMS_ITS | Encounter Summary ---
Author Organization [facility] Address [address] [place] [address] Care Team Providers Care Doctor Of Dental Surgery Name Role Phone Michele Wright MD Primary Care Provider + [phone] Edgar Szymanski MD Unavailable [phone] Shun Hurst MD Unavailable [phone] Divine Carpenter MD Unavailable [phone] Reason for Referral * Imaging (Routine) - Closed Specialty Diagnoses / Procedures Referred By Contac t Referred To Contact Cardiology Diagnoses History of laryngeal cancer Hx of deep venous thrombosis Bilateral carotid artery stenosis Procedures VAS US Arterial Duplex Upper Extremity Unilateral Right Divine Carpenter MD [address] [address] Phone: tel: fax: Referral ID Status Reason Start Date Expiration Date V isits Requested Visits Authorized [id number] Closed Perform Procedure 03/11/2023 09/09/2024 1 1 Reason for Visit * Imaging (Routine) - Closed Specialty Diagnoses / Procedures Referred By Ortega harden Referred To Contact Cardiology Diagnoses History of laryngeal cancer Hx of deep venous thrombosis Bilateral carotid artery stenosis Procedures VAS US Arterial Duplex Upper Extremity Unilateral Right Divine Carpenter MD [address] [facility] [address] [place] [address] Phone: tel: fax: Referral ID Status Reason Start Date Expiration Date V isits Requested Visits Authorized [id number] Closed Perform Procedure 03/11/2023 09/09/2024 1 1 Encounter Details Date Type Department Care Team (Latest Contact Info) Description 04/07/2023 1:40 PM EST - 04/07/2023 11:59 PM EST Hospital Encounter [facility] [address] [place] [address] History of laryngeal cancer; Hx of deep venous thrombosis; Bilateral carotid artery stenosis Discharge Disposition: Home or Self Care Social [...] Discharge lidocaine (Xylocaine) 2 % solution 03/31/2023 lidocaine (Xylocaine) 2 % solution Take 5 mL by mouth if needed for mild pain. 240 mL 3 03/31/2023 04/30/2023 ALPRAZolam (Xanax) 1 MG tablet Take 1 tablet (1 mg) by mouth 2 (two) times a day. 05/17/2023 gabapentin (Neurontin) 600 MG tablet Take 1 tablet (600 mg total) by mouth 4 (four) times a day. 120 tablet 1 04/21/2021 05/17/2023 hydroCHLOROthiaz anitra (HYDRODiuril) 25 MG tablet Take 1 tablet (25 mg total) by mouth 1 (one) time each day. 30 tablet 11 06/17/2021 07/12/2023 levothyroxine (Synthroid, Levoxyl) 125 MCG tablet 12/31/2022 07/12/2023 lisinopril 5 MG tablet Take 1 tablet (5 mg total) by mouth 1 (one) time each day. 30 tablet 11 06/30/2021 07/12/2023 morphine ER (Aziza) 30 MG 24 hr capsule Take 1 capsule (30 mg) by mouth 1 (one) time each day. Do not crush or chew. 05/17/2023 omeprazole (PriLOSEC) [address] capsule TAKE 1 CAPSULE BY MOUTH EVERY DAY 90 capsule 2 10/05/2022 10/05/2023 ondansetron (Zofran) 8 MG tablet Take 1 tablet (8 mg total) by mouth 2 (two) times a day. Starting day after chemo for 3 days. 30 tablet 5 08/18/2021 07/12/2023 oxyCODONE (Roxicodone) 30 MG immediate release tablet Take 1 tablet (30 mg) by mouth every 3 (three) hours if needed for severe pain. 05/17/2023 polyethylene glycol (Miralax) 17 GM/SCOOP powder 04/15/2022 07/12/2023 prochlorperazine (Compazine) 10 MG tabletIndication s:Cancer of larynx (CMS/HCC) Take 1 tablet (10 mg total) by mouth every 6 (six) hours if needed for nausea or vomiting. 30 tablet 5 02/17/2021 07/12/2023 tamsulosin (Flomax) 0.4 MG 24 hr capsule TAKE 1 CAPSULE BY MOUTH EVERY NIGHT TO HELP WITH URINE FLOW 30 capsule 02/25/2022 03/01/2024 documented as of this encounter Plan of Treatment Upcoming Encounters Date Type Department Care Team (Late st Contact Info) Description 07/17/2024 12:30 PM EST Clinical Support Pav CC Head, Neck & Respiratory 800 [facility], [address] [place] [address] 07/17/2024 1:30 PM EST Appointment [facility] G Radiology [address] [place] [address] 07/20/2024 2:50 PM EST Office Visit Pav CC Head, Neck & Respiratory [address] [facility], [address] [place] [address] Divine Carpenter MD [address] [facility] [address] Z[address] [facility] [address] [place] [address] documented as of this encounter Procedures Procedure Name Priority Date/Time Associated Diagnosis Comments VAS US ARTERIAL DUPLEX UPPER EXTREMITY UNILATERAL Routine 04/07/2023 2:27 PM EST History of laryngeal cancer Hx of deep venous thrombosis Bilateral carotid artery stenosis documented in this encounter Results * VAS US Arterial Duplex Upper Extremity Unilateral Right (04/07/2023 2:27 PM EST) Anatomical Region Laterality Modality Vascular Ultrasound Impressions 04/07/2023 5:40 PM EST Right: Normal study. There is no evidence of stenosis in the upper extremity arteries. COMMUNICATION: Per this written report. Preliminary report signed by Greer Perkins R.V.T. on 04/07/2023 2:49 PM By electronically signing this report, I, the attending physician, attest that I have personally reviewed the images/data for the above examination(s) and I agree with the final edited report. Drafted by Greer Perkins R.V.T. on 04/07/2023 2:41 PM Final report signed by Kenneth Fine MD on 04/07/2023 5:40 PM Narrative 04/07/2023 5:40 PM EST CLINICAL INDICATION: Numbness of right upper extremity TECHNIQUE: Non-invasive, real time duplex exam of the upper extremity arterial circulation with Doppler ultrasonic waveform and spectral analysis was performed. COMPARISON: None. FINDINGS: The following flow velocities and waveform characteristics were obtained: Right: Subclavian artery: 165 cm/s; multiphasic Axillary artery: 107 cm/s; multiphasic Brachial artery: 89 cm/s; multiphasic Radial artery: 25 cm/s; multiphasic Ulnar artery: 107 cm/s; multiphasic Left: Imaged for comparison purposes. Subclavian artery: 123 cm/s; multiphasic Procedure Note Kenneth Fine MD - 04/07/2023 CLINICAL INDICATION: Numbness of right upper extremity TECHNIQUE: Non-invasive, real time duplex exam of the upper extremity arterialcirculation with Doppler ultrasonic waveform and spectral analysis wasperformed. COMPARISON: None. FINDINGS: The following flow velocities and waveform characteristics were obtained: Right: Subclavian artery: 165 cm/s; multiphasic Axillary artery: 107 cm/s; multiphasic Brachial artery: 89 cm/s; multiphasic Radial artery: 25 cm/s; multiphasic Ulnar artery: 107 cm/s; multiphasic Left: Imaged for comparison purposes. Subclavian artery: 123 cm/s; multiphasic IMPRESSION: Right: Normal study. There is no evidence of stenosis in the upperextremity arteries. COMMUNICATION: Per this written report. Preliminary report signed by Greer Perkins R.V.T. on 04/07/2023 2:49PM By electronically signing this report, I, the attending physician, attestthat I have personally reviewed the images/data for the aboveexamination(s) and I agree with the final edited report. Drafted by Greer Perkins R.V.T. on 04/07/2023 2:41 PM Final report signed by Kenneth Fine MD on 04/07/2023 5:40 PM Divine Carpenter MD CV VASCULAR PROCEDURES Final Result documented in this encounter Visit Diagnoses Diagnosis History of laryngeal cancer Personal history of malignant neoplasm of larynx Hx of deep venous thrombosis Bilateral carotid artery stenosis Occlusion and stenosis of carotid artery without mention of cerebral infarction documented in this encounter Additional Health Concerns Assessment Noted Time A fall risk assessment has been complete d for the patient 03/11/2023 9:30 AM EDT A Body Mass Index follow-up plan has been documented for the patient 09/10/2022 11:09 AM EDT documented as of this encounter Care Teams Doctor Of Dental Surgery Relationship Specialty Start Date End Date Michele Wright MD [address] [place] [address] PCP - General 10/11/20 Edgar Szymanski MD [id number] [place] [address] Radiation Oncologist Radiation Therapy 03/14/20 4 Shun Hurst MD [address] [place] [address] Surgeon Neurosurgery 02/24/21 Divine Carpenter MD [address] [place] [address] Medical Oncologist Medical Oncology 06/13/21 documented as of this encounter
--- OUTSIDE RECORDS SUMMARY | 2024-05-03 13:36 | XMS_ITS | Encounter Summary ---
Author Organization [facility] Address [address] [place] [address] Care Team Providers Care Metal Stamper Name Role Phone Michele Wright MD Primary Care Provider + [phone] Edgar Szymanski MD Unavailable [phone] Shun Hurst MD Unavailable [phone] Divine Carpenter MD Unavailable [phone] Encounter Details Date Type Department Care Team (Latest Contact Info) Description 07/12/2023 Travel Social History Tobacco Use Types Packs/Day [...] Pav CC Head, Neck & Respiratory 800 [facility], [address]nd [place] [address] 07/17/2024 1:30 PM EST Appointment [facility] G Radiology [address] [place] [address] 07/20/2024 2:50 PM EST Office Visit Pav CC Head, Neck & Respiratory 800 [facility], 2nd [place] [address] Divine Carpenter MD 800 [facility] [address] [facility] [address] [place] [address] documented as of this encounter Visit Diagnoses Not on filedocumented in this encounter Additional Health Concerns Assessment Noted Time A fall risk assessment has been complete d for the patient 07/12/2023 10:42 AM EST A Body Mass Index follow-up plan has been documented for the patient 07/08/2023 9:01 AM EST documented as of this encounter Care Teams Metal Stamper Relationship Specialty Start Date End Date Michele Wright MD [address] [place], [place] [id number] PCP - General 10/11/20 Edgar Szymanski MD [address] [facility] [address] [place] [address] Radiation Oncologist Radiation Therapy 03/14/20 4 Shun Hurst MD [address] [place] [address] Surgeon Neurosurgery 02/24/21 Divine Carpenter MD [address] [facility] [address]un[address] [facility] [address] [place] [address] Medical Oncologist Medical Oncology 06/13/21 documented as of this encounter
--- OUTSIDE RECORDS SUMMARY | 2024-05-03 13:36 | XMS_ITS | Encounter Summary ---
Author Organization Healthcare Address [address] [place] [address] Care Team Providers Care Animal Behaviorist Name Role Phone Michele Wright MD Primary Care Provider + [phone] Edgar Szymanski MD Unavailable [phone] Shun Hurst MD Unavailable [phone] Divine Carpenter MD Unavailable [phone] Reason for Visit * Reason Comments Dysphagia Tracheostomy Tube Check Encounter Details Date Type Department Care Team (Late st Contact Info) Description 07/20/2023 10:10 AM EST Office Visit [facility] [address], [address] [place] [address] Gil Hernandez MD [address] [place] [address] Esophageal stenosis (Primary Dx); Dysphagia, pharyngeal; History of laryngectomy; Cancer of larynx (CMS/HCC) Social History Tobacco [...] Sign Reading Time Taken Comments Blood Pressure 136/76 07/20/2023 10:28 AM EST Pulse 75 07/20/2023 10:28 AM EST Temperature - - Respiratory Rate - - Oxygen Saturation - - Inhaled Oxygen Concentration - - Weight 104 kg (230 lb) 07/20/2023 10:28 AM EST Height 175.3 cm (5' 9 ) 07/20/2023 10:28 AM EST Body Mass Index 33.97 07/20/2023 10:28 AM EST documented in this encounter Miscellaneous Notes * Progress Notes - Jeremiah Katz MD - 07/20/2023 10:10 AM EST I had the pleasure of seeing Anibal Barreto today, who is a 58 y.o. male that returns to the clinic for follow-up after his swallowing. 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 He last underwent a dilation on 02/19/2022 to 30 mm and did well with that for quite a while. However, over the last few months he's notice slow return of swallowing problems, specifically mentioning corn, potato chunks, and hamburger as causing problems. He does well with liquids and softer foods that do not require chewing. He is unable to use his dentures due to trismus. He has been delayed in coming in to be seen secondary to a cancer diagnosis in his for whom he is caregiver. Visit Vitals BP 136/76 Pulse 75 Ht 1.753 m (5' 9 ) Wt 104 kg (230 lb) BMI 33.97 kg/m?? Smoking Status Former BSA 2.25 m?? Allergies Allergen Reactions Cetuximab Anaphylaxis SOA, hypotension, after 9 ml of drug Docetaxel Rash, Shortness of breath and Unknown - Patient states they do not know rxn details Patient very dyspnic, flushed, severe back pain. Patient very dyspnic, flushed, severe back pain. Patient very dyspnic, flushed, severe back pain. Methadone Rash and Other - please document in the comment field Entire 14 point ROS was negative with the exception of those listed in the HPI General: Patient is awake, nontoxic appearing, and in no acute distress. Skin: No overtly ulcerated, cellulitic, or indurated lesions of the head or neck. Head: Normocephalic and atraumatic. Sinuses are nontender to palpation. Ears: The pinnae are well formed. Gross auditory perception appreciated. Eyes: The sclera and conjunctiva are normal. No ptosis is appreciated. Nose: The nasal dorsum is without scar or deformity. No mucopurulence or polyps are appreciated. The nasal airways are patent bilaterally. Oral cavity: No mucosal masses or lesions are appreciated. The tongue has full range of motion. There is appropriate incisor opening without trismus. There are no fasciculations of the tongue. Oropharynx: No mucosal masses or lesions are appreciated. The palate elevates symmetrically withoutdraping. The uvula is midline. 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 No crepitus, masses, or lymphadenopathy areappreciated. The trachea is in midline. Stoma is clean. TEP in place in posterior tracheal wall. 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 We will get him set up for a repeat exam and dilation in the OR to help with his swallowing. Cosigned by Gil Hernandez MD at 07/23/2023 4:38 PM EST Associated attestation - Gil Hernandez MD - 07/23/2023 4:38 PM EST I saw and evaluated the patient with the resident/fellow. I discussed the case with the resident/fellow and agree with the findings and plan as documented. documented in this encounter Plan of Treatment Upcoming Encounters Date Type Department Care Team ([facility] st Contact Info) Description 07/17/2024 12:30 PM EST Clinical Support [facility] Res[facility] [address] [facility], [address]nd [place] [address] 07/17/2024 1:30 PM EST Appointment [facility] Radiology [address] [place] [address] 07/20/2024 2:50 PM EST Office Visit [facility] [address] [place] [phone] Divine Carpenter MD [address] [facility] [address] [place] [address] documented as of this encounter Visit Diagnoses Diagnosis Esophageal stenosis- Primary Stricture and stenosis of esophagus Dysphagia, pharyngeal Dysphagia, pharyngeal phase History of laryngectomy Other postprocedural status 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, unspecified site documented in this encounter Additional Health Concerns Assessment Noted Time A fall risk assessment has been complete d for the patient 07/12/2023 10:42 AM EST A Body Mass Index follow-up plan has been documented for the patient 07/23/2023 4:38 PM EST documented as of this encounter Care Teams Animal Behaviorist Relationship Specialty Start Date End Date Michele Wright MD [address] [place] [address] PCP - General 10/11/20 Edgar Szymanski MD [address] [place] [address] Radiation Oncologist Radiation Therapy 03/14/20 4 Shun Hurst MD [address] [place] [address] Surgeon Neurosurgery 02/24/21 Divine Carpenter MD [address] [facility] [address] [place] [address] Medical Oncologist Medical Oncology 06/13/21 documented as of this encounter
--- OUTSIDE RECORDS SUMMARY | 2024-05-03 13:36 | XMS_ITS | Encounter Summary ---
Author Organization [facility] Address [address] [place] [address] Care Team Providers Care Director Of Business Operations Name Role Phone Michele Wright MD Primary Care Provider + [phone] Edgar Szymanski MD Unavailable [phone] Shun Hurst MD Unavailable [phone] Divine Carpenter MD Unavailable [phone] Reason for Referral * Imaging (Routine) - Closed Specialty Diagnoses / Procedures Referred By Contac t Referred To Contact Cardiology Diagnoses History of laryngeal cancer Hx of deep venous thrombosis Bilateral carotid artery stenosis Procedures VAS US Carotid Duplex Bilateral Divine Carpenter MD [address] [address] Phone: tel: fax: Referral ID Status Reason Start Date Expiration Date V isits Requested Visits Authorized [id number] Closed Perform Procedure 03/11/2023 09/09/2024 1 1 Reason for Visit * Imaging (Routine) - Closed Specialty Diagnoses / Procedures Referred By Contac t Referred To Contact Cardiology Diagnoses History of laryngeal cancer Hx of deep venous thrombosis Bilateral carotid artery stenosis Procedures VAS US Carotid Duplex Bilateral Divine Carpenter MD [address] [address] Phone: tel: fax: Referral ID Status Reason Start Date Expiration Date V isits Requested Visits Authorized [id number] Closed Perform Procedure 03/11/2023 09/09/2024 1 1 Encounter Details Date Type Department Care Team (Latest Contact Info) Description 04/07/2023 1:40 PM EST - 04/07/2023 11:59 PM EST Hospital Encounter [facility] V[facility] Lab [address] [place] [address] History of laryngeal cancer; Hx of deep [...] [facility] Res[facility] [address] [facility], [address] [place] [address] 07/17/2024 1:30 PM EST Appointment [facility] Radiology [address] [place] [address] 07/20/2024 2:50 PM EST Office Visit [facility] Head[facility] Ne[facility] Respiratory [address] [facility], 2nd [place] [address] Divine Carpenter MD [address] [facility] [address] Zuniga [facility] [address] [place] [address] documented as of this encounter Procedures Procedure Name Priority Date/Time Associated Diagnosis Comments VAS US CAROTID DUPLEX BILATERAL Routine 04/07/2023 2:41 PM EST History of laryngeal cancer Hx of deep venous thrombosis Bilateral carotid artery stenosis documented in this encounter Results * VAS US Carotid Duplex Bilateral (04/07/2023 2:41 PM EST) Anatomical Region Laterality Modality Head, Neck, Vascular Ultrasound Impressions 04/07/2023 5:40 PM EST Right: Carotid plaque is demonstrated. ??Flow is present in the CCA, ICA, and ECA. Borderline study. ??ICA velocities are within normal limits, however, the ICA/CCA ratio is elevated with some turbulence noted. ??Probably less than 50% stenosis. Left: No significant carotid plaque is demonstrated. ??Flow is present in the CCA, ICA, and ECA. ??ICA velocities do not demonstrate evidence of a hemodynamically significant stenosis (less than 50%). Vertebral artery flow is antegrade, bilaterally. Subclavian artery flow is multiphasic, bilaterally. COMMUNICATION: Per this written report. Preliminary report signed by MAGUI ANGELA on 04/07/2023 4:32 PM By electronically signing this report, I, the attending physician, attest that I have personally reviewed the images/data for the above examination(s) and I agree with the final edited report. Drafted by MAGUI ANGELA on 04/07/2023 3:09 PM Final report signed by Kenneth Fine MD on 04/07/2023 5:40 PM Narrative 04/07/2023 5:40 PM EST CLINICAL INDICATION: Narrowing seen on CT. TECHNIQUE: Non-invasive, real time duplex exam of the extracranial carotid circulation with Doppler ultrasonic waveform and spectral analysis was performed. COMPARISON: None. FINDINGS: Technically difficult exam due to throat/neck cancer. Right: CCA: 72 cm/s ECA: ??52 cm/s ICA: ??176/61 cm/s ??ICA/CCA ratio: 2.4 Vertebral A: ??68 cm/s Subclavian A: ??121 cm/s Left: CCA: 62 cm/s ECA: ??156 cm/s ICA: ??111/31 cm/s ICA/CCA ratio: 1.7 Vertebral A: ??104 cm/s Subclavian A: ??159 cm/s Procedure Note Kenneth Fine MD - 04/07/2023 CLINICAL INDICATION: Narrowing seen on CT. TECHNIQUE: Non-invasive, real time duplex exam of the extracranial carotidcirculation with Doppler ultrasonic waveform and spectral analysis wasperformed. COMPARISON: None. FINDINGS: Technically difficult exam due to throat/neck cancer. Right: CCA: 72 cm/s ECA: 52 cm/s ICA: 176/61 cm/s ICA/CCA ratio: 2.4 Vertebral A: 68 cm/s Subclavian A: 121 cm/s Left: CCA: 62 cm/s ECA: 156 cm/s ICA: 111/31 cm/s ICA/CCA ratio: 1.7 Vertebral A: 104 cm/s Subclavian A: 159 cm/s IMPRESSION: Right: Carotid plaque is demonstrated. Flow is present in the CCA, ICA,and ECA. Borderline study. ICA velocities are within normal limits,however, the ICA/CCA ratio is elevated with some turbulence noted.Probably less than 50% stenosis. Left: No significant carotid plaque is demonstrated. Flow is present inthe CCA, ICA, and ECA. ICA velocities do not demonstrate evidence of ahemodynamically significant stenosis (less than 50%). Vertebral artery flow is antegrade, bilaterally. Subclavian artery flow is multiphasic, bilaterally. COMMUNICATION: Per this written report. Preliminary report signed by MAGUI ANGELA on 04/07/2023 4:32 PM By electronically signing this report, I, the attending physician, attestthat I have personally reviewed the images/data for the aboveexamination(s) and I agree with the final edited report. Drafted by MAGUI ANGELA on 04/07/2023 3:09 PM Final report signed by Kenneth Fine MD on 04/07/2023 5:40 PM us Divine Carpenter MD CV VASCULAR PROCEDURES Final [...] documented as of this encounter Care Teams Director Of Business Operations Relationship Specialty Start Date End Date Michele Wright MD [address] [place] [address] PCP - General 10/11/20 Edgar Szymanski MD [address] [facility] [address] [place] [address] Radiation Oncologist Radiation Therapy 03/14/20 4 Shun Hurst MD [address] [place] [address] Surgeon Neurosurgery 02/24/21 Divine Carpenter MD [address] [facility] [address] [place] [address] Medical Oncologist Medical Oncology 06/13/21 documented as of this encounter
--- OUTSIDE RECORDS SUMMARY | 2024-05-03 13:36 | XMS_ITS | Encounter Summary ---
Author Organization [facility] Address [address] [place], [place] [id number] Care Team Providers Care Denitrator Name Role Phone Michele Wright MD Primary Care Provider + [phone] Edgar Szymanski MD Unavailable [phone] Shun Hurst MD Unavailable [phone] Divine Carpenter MD Unavailable [phone] Encounter Details Date Type Department Care Team (Late Contact Info) Description 03/31/2023 Telephone [facility] Respiratory [address] [facility], 2nd [place] [address] Divine Carpenter MD [address] [facility] [address] [place] [address] Social History Tobacco Use Types Packs/Day Years [...] [facility] Head[facility] Neck [facility] Respiratory [address] [facility], 2nd [place] [address] 07/17/2024 1:30 PM EST Appointment [facility] Radiology [address] [place] [address] 07/20/2024 2:50 PM EST Office Visit [facility] Respiratory [address] [facility], [address]nd [place] [address] Divine Carpenter MD [address] [facility] [address] Zun[address] [facility] [address] [place] [address] documented as of this encounter Visit Diagnoses Not on filedocumented in this encounter Additional Health Concerns Assessment Noted Time A fall risk assessment has been complete d for the patient 03/11/2023 9:30 AM EDT A Body Mass Index follow-up plan has been documented for the patient 09/10/2022 11:09 AM EDT documented as of this encounter Care Teams Denitrator Relationship Specialty Start Date End Date Michele Wright MD [address] [place] [address] PCP - General 10/11/20 Edgar Szymanski MD [address] [facility] [address] [place] [address] Radiation Oncologist Radiation Therapy 03/14/20 4 Shun Hurst MD [address] [facility] [address] [place] [address] Surgeon Neurosurgery 02/24/21 Divine Carpenter MD [address] [facility] [address] [place] [address] Medical Oncologist Medical Oncology 06/13/21 documented as of this encounter
--- OUTSIDE RECORDS SUMMARY | 2024-05-03 13:36 | XMS_ITS | Encounter Summary ---
Author Organization Healthcare Address [address] [place] [address] Care Team Providers Care Chief Green Officer Name Role Phone Michele Wright MD Primary Care Provider + [phone] Edgar Szymanski MD Unavailable [phone] Shun Hurst MD Unavailable [phone] Divine Carpenter MD Unavailable [phone] Reason for Referral * Consultation (Routine) - Authorized Specialty Diagnoses / Procedures Referred By Contac t Referred To Contact Infusion Clinic Diagnoses Cancer of larynx ([facility]/HCC) Port-A-Cath in place Divine Carpenter MD [address] [facility] [address] [place] [address] Phone: tel: fax: [facility] () [address] [place] [address] Phone: tel: fax: Referral ID Status Reason Start Date Expiration Date Visits Requested Visits Authorized [id number] Authorized Specialty Services Required 06/09/2023 12/08/2024 12 12 Encounter Details Date Type Department Care Team (Late st Contact Info) Description 06/09/2023 Orders Only [facility] Res[facility] [address] [place] [phone] Ambika Ambriz, RN [facility] Cancer of larynx (CMS/HCC) (Primary Dx); Port-A-Cath in place Social History Tobacco Use [...] [facility]ck [facility] Respiratory [address] [facility], [address]nd [place] [address] 07/17/2024 1:30 PM EST Appointment [facility] Radiology [address] [place] [address] 07/20/2024 2:50 PM EST Office Visit [facility] Head[facility] Neck [facility] Respiratory [address] [facility], [address] [place] [address] Divine Carpenter MD [address] [facility] [address] [place] [address] Scheduled Referrals Name Type Priority Associated Diagnoses Orde r Schedule PORT/PICC Line Care Outpatient Referral Routine Cancer of larynx (CMS/HCC) Port-A-Cath in place 4 weeks for 12 Occurrences starting 06/09/2023 until 12/07/2024 documented as of this encounter Visit Diagnoses Diagnosis 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, unspecified site Port-A-Cath in place documented in this encounter Additional Health Concerns Assessment Noted Time A fall risk assessment has been complete d for the patient 03/11/2023 9:30 AM EDT A Body Mass Index follow-up plan has been documented for the patient 09/10/2022 11:09 AM EDT documented as of this encounter Care Teams Chief Green Officer Relationship Specialty Start Date End Date Michele Wright MD [address] [id number] PCP - General 10/11/20 Edgar Szymanski MD [address] [facility] [address] [place] [address] Radiation Oncologist Radiation Therapy 03/14/20 4 Shun Hurst [facility] [address] [facility] [address] [place] [address] Surgeon Neurosurgery 02/24/21 Divine Carpenter MD [address] [facility] [address] [place] [address] Medical Oncologist Medical Oncology 06/13/21 documented as of this encounter
--- OUTSIDE RECORDS SUMMARY | 2024-05-03 13:36 | XMS_ITS | Encounter Summary ---
Author Organization [facility] Address [address] [place] [address] Care Team Providers Care Traffic Worker Name Role Phone Michele Wright MD Primary Care Provider + [phone] Edgar Szymanski MD Unavailable [phone] Shun Hurst MD Unavailable [phone] Divine Carpenter MD Unavailable [phone] Reason for Referral * Imaging (Routine) - Closed Specialty Diagnoses / Procedures Referred By Contac t Referred To Contact Radiology Diagnoses History of laryngeal cancer Procedures CT Chest w IV Contrast Divine Carpenter MD [address] [address] Phone: tel: fax: Referral ID Status Reason Start Date Expiration Date Visits Re quested Visits Authorized [id number] Closed 03/09/2023 09/07/2024 1 1 * Imaging (Routine) - Closed Specialty Diagnoses / Procedures Referred By Contac t Referred To Contact Radiology Diagnoses History of laryngeal cancer Procedures CT Soft Tissue Neck w IV Contrast Divine Carpenter MD [address] [address] Phone: tel: fax: Referral ID Status Reason Start Date Expiration Date Visits Re quested Visits Authorized [id number] Closed 03/09/2023 09/07/2024 1 1 Reason for Visit * Imaging (Routine) - Closed Specialty Diagnoses / Procedures Referred By Ortega harden Referred To Contact Radiology Diagnoses History of laryngeal cancer Procedures CT Chest w IV Contrast Divine Carpenter MD [address] [place] [address] Phone: tel: fax: Referral ID Status Reason Start Date Expiration Date Visits Re quested Visits Authorized [id number] Closed 03/09/2023 09/07/2024 1 1 Encounter Details Date Type Department Care Team (Latest Contact Info) Description 07/09/2023 1:54 PM EST - 07/09/2023 11:59 PM EST Hospital Encounter [facility] Radiology [address] [place] [address] History of laryngeal cancer Discharge Disposition: Home [...] PM EDT documented as of this encounter Discharge Instructions * Attachments The following attachments cannot be sent through Care Everywhere. * Contrast Imaging Discharge Instructions ([place]) (Romanian) documented in this encounter Medications at Time of Discharge lidocaine (Xylocaine) 2 % solution 03/31/2023 ALPRAZolam (Xanax) 1 MG tablet Take 1 tablet (1 mg) by mouth 2 (two) times a day. 60 tablet 05/17/2023 07/12/2023 amLODIPine (Norvasc) 2.5 MG tablet Take 1 tablet (2.5 mg) by mouth 1 (one) time each day. 05/19/2023 09/06/2023 atorvastatin (Lipitor) 20 MG tablet Take 1 tablet (20 mg) by mouth 1 (one) time each day. 05/20/2023 08/09/2023 clonazePAM (KlonoPIN) 1 MG tablet Take 1 tablet (1 mg) by mouth 1 (one) time each day. 06/16/2023 07/12/2023 gabapentin (Neurontin) 600 MG tablet Take 1 tablet (600 mg) by mouth 4 (four) times a day. 120 tablet 1 05/17/2023 07/12/2023 hydroCHLOROthiaz anitra (HYDRODiuril) 25 MG tablet Take 1 tablet (25 mg total) by mouth 1 (one) time each day. 30 tablet 11 06/17/2021 07/12/2023 levothyroxine (Synthroid, Levoxyl) 125 MCG tablet 12/31/2022 07/12/2023 lisinopril 5 MG tablet Take 1 tablet (5 mg total) by mouth 1 (one) time each day. 30 tablet 11 06/30/2021 07/12/2023 lisinopril-hydro CHLOROthiazide 20-25 MG tablet Take 1 [...] if needed for severe pain. 240 tablet 05/17/2023 07/12/2023 polyethylene glycol (Miralax) 17 GM/SCOOP powder 04/15/2022 [...] Head, Neck & Respiratory [address] [facility], [address]nd [place] [address] 07/17/2024 1:30 PM EST Appointment [facility] Radiology [address] [place] [address] 07/20/2024 2:50 PM EST Office Visit Pav CC Head, Neck & Respiratory [address] [facility], [address] [place] [phone] Divine Carpenter MD [address] [facility] [address] [place] [address] documented as of this encounter Procedures Procedure Name Priority Date/Time Associated Diagnosis Comments CT CHEST W IV CONTRAST Routine 07/09/2023 2:46 PM EST History of laryngeal cancer CT SOFT TISSUE NECK W IV CONTRAST Routine 07/09/2023 2:46 PM EST History of laryngeal cancer POCT CREATININE ISTAT UNSOLICITED RESULTS Routine 07/09/2023 2:12 PM EST documented in this encounter Results * CT Chest w IV Contrast (07/09/2023 2:46 PM EST) Anatomical Region Laterality Modality Chest Computed Tomogra phy Impressions 07/09/2023 9:59 PM EST No evidence of disease progression. CRITICAL RESULT: No. COMMUNICATION: Per this written report. Drafted by Jose Samuel MD on 07/09/2023 9:54 PM Final report signed by Jose Samuel MD on 07/09/2023 9:59 PM Narrative 07/09/2023 9:59 PM EST CLINICAL INDICATION: Metastatic disease evaluation TECHNIQUE: Multiple CT helical images were obtained from thoracic inlet through pubic symphysis with administration of IV contrast. 100 ??mL of Omnipaque-300 were administered intravenously. Total DLP (Dose-Length Product): 976 mGycm. Please note: The reported value represents the total of one or more individual components during the CT acquisition on this date and at this time, and as such, the same value may appear in more than one CT report depending on the interpreting/reporting physicians. COMPARISON: December 04, 2022, 03/08/2023 FINDINGS: Mediastinum and Pleura: Tracheostomy. No enlarging mediastinal or hilar lymph nodes. Left chest wall Port-A-Cath tip at the superior vena cava. Moderate coronary artery calcification. No pleural effusion. Lungs: Right apical scarring and prior wedge resection are again noted, similar to comparison. Some anterior right lung fibrosis is stable. Bilateral lower lung reticulation, greatest on the left, decreased from prior. No suspicious nodule. No consolidation. Abdomen and Pelvis: No new suspicious solid abdominal organ lesions. No abdominal pelvic lymphadenopathy. No free fluid. Atherosclerosis of the aorta. Musculoskeletal: No new bony destructive lesion. Multilevel degenerative changes of the spine. Right chest wall venous collaterals again noted. Procedure Note Jose Samuel MD - 07/09/2023 CLINICAL INDICATION: Metastatic disease evaluation TECHNIQUE: Multiple CT helical images were obtained from thoracic inlet through pubicsymphysis with administration of IV contrast. 100 mL of Omnipaque-300were administered intravenously. Total DLP (Dose-Length Product): 976 mGycm. Please note: The reportedvalue represents the total of one or more individual components during theCT acquisition on this date and at this time, and as such, the same valuemay appear in more than one CT report depending on theinterpreting/reporting physicians. COMPARISON: December 04, 2022, 03/08/2023 FINDINGS: Mediastinum and Pleura: Tracheostomy. No enlarging mediastinal or hilarlymph nodes. Left chest wall Port-A-Cath tip at the superior vena cava.Moderate coronary artery calcification. No pleural effusion. Lungs: Right apical scarring and prior wedge resection are again noted,similar to comparison. Some anterior right lung fibrosis is stable.Bilateral lower lung reticulation, greatest on the left, decreased fromprior. No suspicious nodule. No consolidation. Abdomen and Pelvis: No new suspicious solid abdominal organ lesions. Noabdominal pelvic lymphadenopathy. No free fluid. Atherosclerosis of theaorta. Musculoskeletal: No new bony destructive lesion. Multilevel degenerativechanges of the spine. Right chest wall venous collaterals again noted. IMPRESSION: No evidence of disease progression. CRITICAL RESULT: No. COMMUNICATION: Per this written report. Drafted by Jose Samuel MD on 07/09/2023 9:54 PM Final report signed by Jose Samuel MD on 07/09/2023 9:59 PM us Divine aCrpenter MD IMG CT PROCEDURES Final Resu lt * CT Soft Tissue Neck w IV Contrast (07/09/2023 2:46 PM EST) Anatomical Region Laterality Modality Neck Computed Tomogra phy Impressions 07/13/2023 8:28 AM EST Status post total laryngectomy and tracheostomy. No new enhancing lesion at the surgical site suggest recurrent tumor. Diffuse thickening of pharyngeal soft tissues, most likely representing posttreatment change. No significant cervical adenopathy is present. Redemonstration of moderate bony spinal stenosis stenosis at C2-C3 secondary to degenerative changes and ossification of the posterior longitudinal ligament. CRITICAL RESULT: No. COMMUNICATION: Per this written report. Drafted by Camilla Martin MD on 07/13/2023 8:09 AM Final report signed by Camilla Martin MD on 07/13/2023 8:28 AM Narrative 07/13/2023 8:28 AM EST CLINICAL INDICATION: Head and neck cancer, assess treatment response. TECHNIQUE: Helical images were obtained through the neck, and reconstructed in the axial plane on bone and soft tissue algorithm at multiple slice thicknesses. Coronal and sagittal reformatted images are provided. 100 mL of Omnipaque-300 was administered intravenously. Total DLP (Dose-Length Product): 976.36 mGy.cm mGy*cm. Please note: The reported value represents the total of one or more individual components during the CT acquisition on this date and at this time, and as such, the same value may appear in more than one CT report depending on the interpreting/reporting physicians. COMPARISON: 03/08/2023 FINDINGS: Diagnostic Quality: Motion and increased image noise at the lower neck and chest. Artifact from dense contrast in vessels. Soft Tissues: The patient is status post total laryngectomy with myocutaneous flap reconstruction and tracheostomy, with a tracheostomy tube present. The patient is also status post tracheoesophageal puncture. There are multiple surgical clips within the neck. No new pathologic enhancement of the surgical site is seen to suggest recurrent tumor. Unchanged asymmetric thickening of the columella/anterior nasal septum, nonspecific although could be correlated clinically. Lymph Nodes: No significant cervical adenopathy is present. Pharynx/Larynx: Asymmetric fat replacement at the right tongue base. Otherwise diffuse thickening of pharyngeal soft tissue structures compatible with posttreatment change. Oral Cavity: Asymmetric fat replacement of the right oral tongue. Parapharyngeal Space: No lesions are present within the parapharyngeal space. Salivary Glands: The parotid glands are unremarkable. Submandibular glands appear fatty replaced. Thyroid: No focal thyroid lesions are present, within the limitations of the study. Orbits: No orbital masses are present within the visualized portions of the orbits. Paranasal sinuses: Probable retention cyst in the right sphenoid sinus.. Mucosal thickening in maxillary and ethmoid sinuses. Skull base: Within the skull base, there is no focal lesion or destructive process. Bones/Spine: There are degenerative changes of the spine. Ossifications of the posterior longitudinal ligament contributes to bony spinal stenosis in the upper cervical spine, for example there is moderate bony spinal stenosis at the level of C2-C3. At the partially imaged T4-T5 level there is right facet arthropathy resulting in at least mild bony spinal stenosis. No bony destructive lesion is present. Thoracic Inlet and Lung Apices: Left-sided Port-A-Cath. Scarring/postoperative change at the right upper lobe. Please see the separate report for the chest CT scan for discussion of thoracic findings. Procedure Note Camilla Martin MD - 07/13/2023 CLINICAL INDICATION: Head and neck cancer, assess treatment response. TECHNIQUE: Helical images were obtained through the neck, and reconstructed in theaxial plane on bone and soft tissue algorithm at multiple slicethicknesses. Coronal and sagittal reformatted images are provided. 100 mLof Omnipaque-300 was administered intravenously. Total DLP (Dose-Length Product): 976.36 mGy.cm mGy*cm. Please note: Thereported value represents the total of one or more individual componentsduring the CT acquisition on this date and at this time, and as such, thesame value may appear in more than one CT report depending on theinterpreting/reporting physicians. COMPARISON: 03/08/2023 FINDINGS: Diagnostic Quality: Motion and increased image noise at the lower neck andchest. Artifact from dense contrast in vessels. Soft Tissues: The patient is status post total laryngectomy withmyocutaneous flap reconstruction and tracheostomy, with a tracheostomytube present. The patient is also status post tracheoesophageal puncture.There are multiple surgical clips within the neck. No new pathologicenhancement of the surgical site is seen to suggest recurrent tumor. Unchanged asymmetric thickening of the columella/anterior nasal septum,nonspecific although could be correlated clinically. Lymph Nodes: No significant cervical adenopathy is present. Pharynx/Larynx: Asymmetric fat replacement at the right tongue base.Otherwise diffuse thickening of pharyngeal soft tissue structurescompatible with posttreatment change. Oral Cavity: Asymmetric fat replacement of the right oral tongue.Parapharyngeal Space: No lesions are present within the parapharyngealspace. Salivary Glands: The parotid glands are unremarkable. Submandibular glandsappear fatty replaced. Thyroid: No focal thyroid lesions are present, within the limitations ofthe study. Orbits: No orbital masses are present within the visualized portions ofthe orbits. Paranasal sinuses: Probable retention cyst in the right sphenoid sinus..Mucosal thickening in maxillary and ethmoid sinuses. Skull base: Within the skull base, there is no focal lesion or destructiveprocess. Bones/Spine: There are degenerative changes of the spine. Ossifications ofthe posterior longitudinal ligament contributes to bony spinal stenosis inthe upper cervical spine, for example there is moderate bony spinalstenosis at the level of C2-C3. At the partially imaged T4-T5 level thereis right facet arthropathy resulting in at least mild bony spinalstenosis. No bony destructive lesion is present. Thoracic Inlet and Lung Apices: Left-sided Port-A-Cath.Scarring/postoperative change at the right upper lobe. Please see theseparate report for the chest CT scan for discussion of thoracicfindings. IMPRESSION: Status post total laryngectomy and tracheostomy. No new enhancing lesionat the surgical site suggest recurrent tumor. Diffuse thickening ofpharyngeal soft tissues, most likely representing posttreatment change. No significant cervical adenopathy is present. Redemonstration of moderate bony spinal stenosis stenosis at C2-M8wsjvwefiv to degenerative changes and ossification of the posteriorlongitudinal ligament. CRITICAL RESULT: No. COMMUNICATION: Per this written report. Drafted by Camilla Martin MD on 07/13/2023 8:09 AM Final report signed by Camilla Martin MD on 07/13/2023 8:28 AM Divine Carpenter MD IMG CT PROCEDURES Final Resu lt * POCT creatinine (07/09/2023 2:12 PM EST) Pathologist [facility] [place] Creatinine, Point of Care 1.0 0.8 - 1.3 mg/dL 07/09/2023 2:16 PM EST [facility] POCT eGFR 88 mL/min/1. 73m*2 07/09/2023 2:16 PM EST [facility] Boy'S Adviser ID GibHannah glynn 07/09/2023 2:16 PM EST [facility] Device ID [id number] 07/09/2023 2:16 PM EST [facility] Comment 07/09/2023 2:16 PM EST [facility] Comment:Testing performed on i-STAT at the point of care. Reported eGFRcr in mL/min/1.73m2 is based the CKD-EPI 2020 equation that does not use a race coefficient. Blood Venous blood specimen / Unknown 07/09/2023 2:12 PM EST 07/09/2023 2:16 PM EST Generic Provider Poct LAB POINT OF CARE TEST DOCKED DEVICE UNSOLICITED RESULTS Final Result [facility] [address] [place] [address] documented in this encounter Visit Diagnoses Diagnosis History of laryngeal cancer Personal history of malignant neoplasm of larynx documented in this encounter Administered Medications Inactive Administered Medications - up to 3 most recent administrations Medication Order MAR Action Action Date Dose Rate Site iohexol (OMNIPaque) 300 MG/ML injection 100 mL 100 mL, Intravenous, Once in imaging, 1 dose, Starting on Wed07/09/23 at 1356, Until Wed07/09/23 at 1434, Routine, Imaging Protocol Orders Given 07/09/2023 2:34 PM EST 100 mL documented in this encounter Additional Health Concerns Assessment Noted Time A fall risk assessment has been complete d for the patient 03/11/2023 9:30 AM EDT A Body Mass Index follow-up plan has been documented for the patient 07/08/2023 9:01 AM EST documented as of this encounter Care Teams Traffic Worker Relationship Specialty Start Date End Date Michele Wright MD [address], [place] [id number] PCP - General 10/11/20 Edgar Szymanski MD [address] [facility] [address] [place] [address] Radiation Oncologist Radiation Therapy 03/14/20 4 Shun Hurst MD [address] [place] [address] Surgeon Neurosurgery 02/24/21 Divine Carpenter MD [address] [place] [address] Medical Oncologist Medical Oncology 06/13/21 documented as of this encounter
--- OUTSIDE RECORDS SUMMARY | 2024-05-03 13:36 | XMS_ITS | Encounter Summary ---
Author Organization Healthcare Address [address] [id number] Care Team Providers Care Hide Shaker Name Role Phone Michele Wright MD Primary Care Provider + [phone] Edgar Szymanski MD Unavailable [phone] Shun Hurst MD Unavailable [phone] Divine Carpenter MD Unavailable [phone] Encounter Details Date Type Department Care Team (Late st Contact Info) Description 07/26/2023 Telephone [place] [facility] Pre[facility] [address], [address] [place] [address] Duarte Marin MD [address] [place] [address] Social History Tobacco Use Types [...] Pav CC Head, Neck & Respiratory 800 [facility], 2nd [place] [address] 07/17/2024 1:30 PM EST Appointment [facility] Radiology [address] [place] [address] 07/20/2024 2:50 PM EST Office Visit Pav CC Head, Neck & Respiratory [address] [facility], 2nd [place] [address] Divine Carpenter MD [address] [facility] [address] Zuniga [facility] [address] [place] [address] documented as of this encounter Visit Diagnoses Not on filedocumented in this encounter Additional Health Concerns Assessment Noted Time A fall risk assessment has been complete d for the patient 07/12/2023 10:42 AM EST A Body Mass Index follow-up plan has been documented for the patient 07/23/2023 4:38 PM EST documented as of this encounter Care Teams Hide Shaker Relationship Specialty Start Date End Date Michele Wright MD [address] [place], [place] [id number] PCP - General 10/11/20 Edgar Szymanski MD [address] [facility] [address] [place] [phone] Radiation Oncologist Radiation Therapy 03/14/20 4 Shun Hurst MD [address] [facility] [address] [place] [address] Surgeon Neurosurgery 02/24/21 Divine Carpenter MD [address] [facility] [address] Zuniga [facility] [address] [place] [address] Medical Oncologist Medical Oncology 06/13/21 documented as of this encounter
--- OUTSIDE RECORDS SUMMARY | 2024-05-03 13:36 | XMS_ITS | Encounter Summary ---
Author Organization [facility] Address [address] [place] [address] Care Team Providers Care Casing Finisher And Stuffer Name Role Phone Michele Wright MD Primary Care Provider + [phone] Edgar Szymanski MD Unavailable [phone] Shun Hurst MD Unavailable [phone] Divine Carpenter MD Unavailable [phone] Encounter Details Date Type Department Care Team (Latest Contact Info) Description 07/07/2023 Travel Social History Tobacco Use Types Packs/Day [...] Pav CC Head, Neck & Respiratory [address] [facility], [address]nd [place] [address] 07/17/2024 1:30 PM EST Appointment [facility] Radiology [address] [place] [address] 07/20/2024 2:50 PM EST Office Visit Pav CC Head, Neck & Respiratory [address] [facility], [address] [place] [address] Divine Carpenter MD [address] [facility] [address] [facility] [address] [place] [address] documented as of this encounter Visit Diagnoses Not on filedocumented in this encounter Additional Health Concerns Assessment Noted Time A fall risk assessment has been complete d for the patient 03/11/2023 9:30 AM EDT A Body Mass Index follow-up plan has been documented for the patient 07/08/2023 9:01 AM EST documented as of this encounter Care Teams Casing Finisher And Stuffer Relationship Specialty Start Date End Date Michele Wright MD [address] [place], [place] [id number] PCP - General 10/11/20 Edgar Szymanski MD [address] [facility] [address] [place] [address] Radiation Oncologist Radiation Therapy 03/14/20 4 Shun Hurst MD [address] [place] [address] Surgeon Neurosurgery 02/24/21 Divine Carpenter MD [address] [facility] [address] Zuniga [facility] [address] [place] [address] Medical Oncologist Medical Oncology 06/13/21 documented as of this encounter
--- OUTSIDE RECORDS SUMMARY | 2024-05-03 13:36 | XMS_ITS | Encounter Summary ---
Author Organization [facility] Address [address] [place] [address] Care Team Providers Care Senior Medical Writer Name Role Phone Michele Wright MD Primary Care Provider + [phone] Edgar Szymanski MD Unavailable [phone] Shun Hurst MD Unavailable [phone] Divine Carpenter MD Unavailable [phone] Reason for Visit * Reason Comments Port Flush Encounter Details Date Type Department Care Team (Late Contact Info) Description 07/20/2023 12:00 PM EST Clinical Support Pav CC Head, Neck & Respiratory 800 [facility] [address] [place] [phone] Social History Tobacco Use Types Packs/Day Years [...] Pav CC Head, Neck & Respiratory 800 [facility], [address] [place] [address] 07/17/2024 1:30 PM EST Appointment [facility] Radiology [address] [place] [phone] 07/20/2024 2:50 PM EST Office Visit Pav CC Head, Neck & Respiratory [address] [place] [address] Divine Carpenter MD 800 [facility] Diane Zuniga [facility] [address] [place] [address] documented as of this encounter Visit Diagnoses Not on filedocumented in this encounter Additional Health Concerns Assessment Noted Time A fall risk assessment has been complete d for the patient 07/12/2023 10:42 AM EST A Body Mass Index follow-up plan has been documented for the patient 07/23/2023 4:38 PM EST documented as of this encounter Care Teams Senior Medical Writer Relationship Specialty Start Date End Date Michele Wright MD [address] [place] [address] PCP - General 10/11/20 Edgar Szymanski MD [address] [facility] [address] [place] [address] Radiation Oncologist Radiation Therapy 03/14/20 4 Shun Hurst MD [address] [facility] [address] [place] [address] Surgeon Neurosurgery 02/24/21 Divine Carpenter MD [address] [facility] [address] Zuniga [facility] [address] [place] [address] Medical Oncologist Medical Oncology 06/13/21 documented as of this encounter
--- OUTSIDE RECORDS SUMMARY | 2024-05-03 13:36 | XMS_ITS | Encounter Summary ---
Author Organization [facility] Address [address] [place] [address] Care Team Providers Care Supervisor Boarding Name Role Phone Michele Wright MD Primary Care Provider + [phone] Edgar Szymanski MD Unavailable [phone] Shun Hurst MD Unavailable [phone] Divine Carpenter MD Unavailable [phone] Encounter Details Date Type Department Care Team (Latest Contact Info) Description 03/11/2023 Travel Social History Tobacco Use Types Packs/Day [...] Pav CC Head, Neck & Respiratory [address] [facility], 2nd [place] [address] 07/17/2024 1:30 PM EST Appointment PAV G Radiology [address] [place] [address] 07/20/2024 2:50 PM EST Office Visit Pav CC Head, Neck & Respiratory [address] [facility], 2nd [place] [address] Divine Carpenter MD [address] [facility] Diane Zuniga [facility] [address] [place] [address] documented as of this encounter Visit Diagnoses Not on filedocumented in this encounter Additional Health Concerns Assessment Noted Time A fall risk assessment has been complete d for the patient 03/11/2023 9:30 AM EDT A Body Mass Index follow-up plan has been documented for the patient 09/10/2022 11:09 AM EDT documented as of this encounter Care Teams Supervisor Boarding Relationship Specialty Start Date End Date Michele Wright MD [address] [place], [place] [id number] PCP - General 10/11/20 Edgar Szymanski MD [address] [facility] [address] [place] [address] Radiation Oncologist Radiation Therapy 03/14/20 4 Shun Hurst MD [address] [place] [address] Surgeon Neurosurgery 02/24/21 Divine Carpenter MD [address] [facility] Diane Zuniga [facility] [address] [place] [address] Medical Oncologist Medical Oncology 06/13/21 documented as of this encounter
--- OUTSIDE RECORDS SUMMARY | 2024-05-03 13:36 | XMS_ITS | Encounter Summary ---
Author Organization [facility] Address [address] [place] [address] Care Team Providers Care Pulverizer Feeder Name Role Phone Michele Wright MD Primary Care Provider + [phone] Edgar Szymanski MD Unavailable [phone] Shun Hurst MD Unavailable [phone] Divine Carpenter MD Unavailable [phone] Encounter Details Date Type Department Care Team (Latest Contact Info) Description 04/07/2023 Travel Social History Tobacco Use Types Packs/Day [...] CC Head, Neck & Respiratory [address] [facility], 2nd [place] [address] 07/17/2024 1:30 PM EST Appointment PAV G Radiology [address] [place] [address] 07/20/2024 2:50 PM EST Office Visit Pav CC Head, Neck & Respiratory [address] [facility], 2nd [place] [address] Divine Carpenter MD [address] [facility] Diane Zuniga [facility] [address] [place] [address] documented as of this encounter Visit Diagnoses Not on filedocumented in this encounter Additional Health Concerns Assessment Noted Time A fall risk assessment has been complete d for the patient 03/11/2023 9:30 AM EDT A Body Mass Index follow-up plan has been documented for the patient 09/10/2022 11:09 AM EDT documented as of this encounter Care Teams Pulverizer Feeder Relationship Specialty Start Date End Date Michele Wright MD [address] [place], [place] [id number] PCP - General 10/11/20 Edgar Szymanski MD [address] [facility] [address] [place] [address] Radiation Oncologist Radiation Therapy 03/14/20 4 Shun Hurst MD [address] [place] [address] Surgeon Neurosurgery 02/24/21 Divine Carpenter MD [address] [facility] Diane Zuniga [facility] [address] [place] [address] Medical Oncologist Medical Oncology 06/13/21 documented as of this encounter
--- OUTSIDE RECORDS SUMMARY | 2024-05-03 13:36 | XMS_ITS | Encounter Summary ---
Author Organization [facility] Address [address] [place] [address] Care Team Providers Care Senior Energy Trader Name Role Phone Michele Wright MD Primary Care Provider + [phone] Edgar Szymanski MD Unavailable [phone] Shun Hurst MD Unavailable [phone] Divine Carpenter MD Unavailable [phone] Encounter Details Date Type Department Care Team (Latest Contact Info) Description 07/20/2023 Travel Social History Tobacco Use Types Packs/Day [...] Pav CC Head, Neck & Respiratory 800 [facility], 2nd [place] [address] 07/17/2024 1:30 PM EST Appointment PAV G Radiology [address] [place] [address] 07/20/2024 2:50 PM EST Office Visit Pav CC Head, Neck & Respiratory [address] [facility], 2nd [place] [address] Divine Carpenter MD [address] [facility] Diane Zuniga [facility] [address] [place] [address] documented as of this encounter Visit Diagnoses Not on filedocumented in this encounter Additional Health Concerns Assessment Noted Time A fall risk assessment has been complete d for the patient 07/12/2023 10:42 AM EST A Body Mass Index follow-up plan has been documented for the patient 07/23/2023 4:38 PM EST documented as of this encounter Care Teams Senior Energy Trader Relationship Specialty Start Date End Date Michele Wright MD [address] [place], [place] [id number] PCP - General 10/11/20 Edgar Szymanski MD [address] [facility] [address] [place] [address] Radiation Oncologist Radiation Therapy 03/14/20 4 Shun Hurst MD [address] [place] [address] Surgeon Neurosurgery 02/24/21 Divine Carpenter MD [address] [facility] Diane Zuniga [facility] [address] [place] [address] Medical Oncologist Medical Oncology 06/13/21 documented as of this encounter
--- OUTSIDE RECORDS SUMMARY | 2024-05-03 13:36 | XMS_ITS | Encounter Summary ---
Author Organization [facility] Address [address] [place], [place] [address] Care Team Providers Care Medical Technician Assistant Name Role Phone Michele Wright MD Primary Care Provider + [phone] Edgar Szymanski MD Unavailable [phone] Shun Hurst MD Unavailable [phone] Divine Carpenter MD Unavailable [phone] Encounter Details Date Type Department Care Team (Late st Contact Info) Description 04/16/2023 Telephone Pav CC Head, Neck & Respiratory 800 [facility], 2nd [place] [address] Divine Carpenter MD 800 [facility] [address] [place] [address] Social History Tobacco Use Types Packs/Day Years [...] Telephone Encounter - Ambika Ambriz RN - 04/19/2023 5:19 PM EST No answer. Detailed message left. * Telephone Encounter - Ambika Ambriz RN - 04/16/2023 2:23 PM EST No answer. * Telephone Encounter - Denisa Keith - 04/16/2023 10:10 AM EST Patient Phone Message Reason for Call:Patient is wanting to know what the results of his test. Best contact number and optimal time of day to reach caller: [phone] Note: Please do not reply to this message. Follow-up communication and further actions as a result of this message need to be communicated with the patient directly, if the patient is not active onMyChart. If the patient is active on MyChart, they will receive notification of the communication/outcome via [employer]. documented in this encounter Plan of Treatment Upcoming Encounters Date Type Department Care Team (Late st Contact Info) Description 07/17/2024 12:30 PM EST Clinical Support Pav CC Head, Neck & Respiratory [address] [facility], 2nd [place] [address] 07/17/2024 1:30 PM EST Appointment PAV G Radiology [address] [place] [address] 07/20/2024 2:50 PM EST Office Visit Pav CC Head, Neck & Respiratory [address] [facility], 2nd [place] [address] Divine Carpenter MD [address] [facility] [address] [place] [address] documented as of this encounter Visit Diagnoses Not on filedocumented in this encounter Additional Health Concerns Assessment Noted Time A fall risk assessment has been complete d for the patient 03/11/2023 9:30 AM EDT A Body Mass Index follow-up plan has been documented for the patient 09/10/2022 11:09 AM EDT documented as of this encounter Care Teams Medical Technician Assistant Relationship Specialty Start Date End Date Michele Wright MD [address] [place] [address] PCP - General 10/11/20 Edgar Szymanski MD [address] [facility] [address] [place] [address] Radiation Oncologist Radiation Therapy 03/14/20 4 Shun Hurst MD [address] [place] [address] Surgeon Neurosurgery 02/24/21 Divine Carpenter MD [address] [facility] [address] [place] [address] Medical Oncologist Medical Oncology 06/13/21 documented as of this encounter
--- OUTSIDE RECORDS SUMMARY | 2024-05-03 13:36 | XMS_ITS | Encounter Summary ---
Author Organization [facility] Address [address] [place], [place] [address] Care Team Providers Care Clothing Worker Name Role Phone Michele Wright MD Primary Care Provider + [phone] Edgar Szymanski MD Unavailable [phone] Shun Hurst MD Unavailable [phone] Divine Carpenter MD Unavailable [phone] Encounter Details Date Type Department Care Team (Late st Contact Info) Description 07/07/2023 10:00 AM EST Office Visit PAV CC Voice [address], [address]nd [place] [address] Earnestine Billy, [facility] [address] [facility] [id number] [place] [address] Aphonia (Primary Dx); History of laryngeal cancer [...] encounter Miscellaneous Notes * Progress Notes - Witabbyrosa isela Earnestine Jose, [facility] SETTER - 07/07/2023 10:00 AM EST [facility] Head, Neck and Respiratory [facility] Tracheoesophageal Puncture Assessment/Treatment Service Date: 07/07/2023 Referring Provider: Gil Hernandez MD Total assessment/treatment time: 30 minutes Treatment Diagnosis: R.49. 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 His prosthesis was last changed on 09/10/2022 using a 17Fr./10mm Provox Hackett. Patient complaint: Mr. Barreto reports his prosthesis has been leaking on and off for several weeksand it has been getting more challenging to produce a voice. He reports attempting to call to make an appointment, but he was never able to reach anyone. He finally put a message in via [employer] and that was eventually forwarded to the correct person. He endorses increased swallowing issues and would like to see Dr. Hernandez. Despite difficulties he is maintaining his weight. He denies difficulty breathing. He is consistently using his LaryTube and HME's. His was recently diagnosed with pancreatic cancer and is currently undergoing treatment at . Assessment/Procedure: Prosthesis Size/Type: 17Fr./10mm/Provox Hackett/#[id number] Provox XtraFlange lot#: [id number] Dilation: deferred Insertion Method: Gel capsule Mr. [...] prosthesis be changed and he verbally consented. Mr. Barretodeferred oral lidocaine. A small amount of lidocaine was topically applied to the irene-puncture tract region for patient comfort. After confirmation of anesthetic effect, the prosthesis was removed wi th clamped hemostats. The new prosthesis with an XtraFlange was immediately placed without incidentor difficulty. The XtraFlange was placed to decrease the likely low of irene leakage given the distorted/expanded appearance of the leaking prosthesis. After confirmation of functional placement, theinsertion tab for the prosthesis and the XtraFlange was clipped and the prosthesis was functionallyoriented within the tract. Evaluation: The TEP rotates freely within the tract. No central leakage or peripheral leakage observed. Neophonation is characteristically functional and per patient report less effortful. Plan: Follow up with [facility] as needed for TEP maintenance as needed. Use the new brush provided and dispose of the used cleaning brush. An appointment for follow-up with Dr. Hernandez was requested. Education: Mr. Barreto was educated regarding assessment findings and recommendations. He demonstrated functional understanding of the information presented and consented to the prescribed plan of care. documented in this encounter Plan of Treatment Upcoming Encounters Date Type Department Care Team (Late st Contact Info) Description 07/17/2024 12:30 PM EST Clinical Support Pav CC Head, Neck & Respiratory [address] [facility], [address] [place] [address] 07/17/2024 1:30 PM EST Appointment [facility] Radiology [address] [place] [address] 07/20/2024 2:50 PM EST Office Visit Yaakov CC Head, Neck & Respiratory [address] [facility], [address] [place] [address] Divine Carpenter MD [address] [facility] [address] [place] [address] documented as of this encounter Visit Diagnoses [...] documented as of this encounter Care Teams Clothing Worker Relationship Specialty Start Date End Date Michele Wright MD [address] [place] [address] PCP - General 10/11/20 Edgar Szymanski MD [address] [facility] [address] [place] [address] Radiation Oncologist Radiation Therapy 03/14/20 4 Shun Hurst MD [address] [place] [address] Surgeon Neurosurgery 02/24/21 Divine Carpenter MD [address] [facility] [address] [place] [address] Medical Oncologist Medical Oncology 06/13/21 documented as of this encounter
--- OUTSIDE RECORDS SUMMARY | 2024-05-03 13:37 | XMS_ITS | Encounter Summary ---
Author Organization [facility] Address [address] [place] [address] Care Team Providers Care Boatbuilder Supervisor Name Role Phone Michele Wright MD Primary Care Provider + [phone] Edgar Szymanski MD Unavailable [phone] Shun Hurst MD Unavailable [phone] Divine Carpenter MD Unavailable [phone] Encounter Details Date Type Department Care Team ([facility] Contact Info) Description 03/08/2023 Orders Only Pav CC Head, Neck & Respiratory [address] [place] [address] Ambika Ambriz, [facility] Neoplasm related pain (Primary Dx); Cancer of larynx (CMS/HCC); Type 2 diabetes mellitus without complication, unspecified whether terminal operations manager insulin use (CMS/HCC) Social History Tobacco Use Types Packs/Day [...] Upcoming Encounters Date Type Department Care Team ([facility] Contact Info) Description 07/17/2024 12:30 PM EST Clinical Support Pav CC Head, Neck & Respiratory [address] [facility], 2nd [place] [address] 07/17/2024 1:30 PM EST Appointment PAV G Radiology [address] [place] [address] 07/20/2024 2:50 PM EST Office Visit Pav CC Head, Neck & Respiratory [address] [facility], [address]nd [place] [address] Divine Carpenter MD [address] [facility] [address] [place] [address] documented as of this encounter Results * Thyroid Stimulating Hormone, Plasma (TSH) (03/08/2023 10:19 AM EDT) Thyroid Stimulating Hormone, Plasma 2.29 0.40 - 4.20 uIU/mL 03/08/2023 11:18 AM EDT [facility] Blood Blood sample taken from central line / Unknown (Port) Long-term Catheter / Unknown 03/08/2023 10:19 AM EDT 03/08/2023 10:39 AM EDT us Divine Carpenter MD LAB BLOOD ORDERABLES Final R esult [facility] [address] [place] [address] * (ABNORMAL) Comprehensive Metabolic Panel, Plasma (03/08/2023 10:19 AM EDT) Glucose, Plasma 132(H) 74 - 99 mg/dL 03/08/2023 11:18 AM EDT [facility] BUN, Plasma 18 7 - 21 mg/dL 03/08/2023 11:18 AM EDT [facility] Creatinine, Plasma 1.02 0.80 - 1.30 mg/dL 03/08/2023 11:18 AM EDT [facility] BUN/Creatinine Ratio 18 03/08/2023 11:18 AM EDT [facility] Sodium, Plasma 140 136 - 145 mmol/L 03/08/2023 11:18 AM EDT [facility] Potassium, Plasma 3.6(L) 3.7 - 4.8 mmol/L 03/08/2023 11:18 AM EDT [facility] Chloride, Plasma 100 97 - 107 mmol/L 03/08/2023 11:18 AM EDT [facility] CO2, Plasma 30(H) 22 - 29 mmol/L 03/08/2023 11:18 AM EDT [facility] Anion Gap 10 6 - 16 mmol/L 03/08/2023 11:18 AM EDT [facility] Total Calcium, Plasma 9.0 8.9 - 10.2 mg/dL 03/08/2023 11:18 AM EDT [facility] Total Protein 7.0 6.3 - 7.9 g/dL 03/08/2023 11:18 AM EDT [facility] Albumin, Plasma 4.0 3.5 - 5.2 g/dL 03/08/2023 11:18 AM EDT [facility] AST, Plasma 21 10 - 50 U/L 03/08/2023 11:18 AM EDT [facility] ALT, Plasma 21 10 - 50 U/L 03/08/2023 11:18 AM EDT [facility] Alkaline Phosphatase, Plasma 76 40 - 115 U/L 03/08/2023 11:18 AM EDT [facility] Total Bilirubin, Plasma 0.4 0.2 - 1.1 mg/dL 03/08/2023 11:18 AM EDT [facility] eGFRcr 86.3 mL/min/1.7 3m*2 03/08/2023 11:18 AM EDT [facility] Comment:Reported eGFRcr in m L/min/1.73m2 is based the CKD-EPI 2020 equation that does not use a race coefficient. Blood Blood sample taken from central line / Unknown (Port) Long-term Catheter / Unknown 03/08/2023 10:19 AM EDT 03/08/2023 10:39 AM EDT us Divine Carpenter MD LAB BLOOD ORDERABLES Final R esult [facility] [address] [place] [id number] * (ABNORMAL) CBC and Differential (03/08/2023 10:19 AM EDT) [facility] Signature WBC Count 5.96 3.70 - 10.30 10*3/uL LAB HEMATOLOGY METHOD 03/08/2023 10:46 AM EDT [facility] RBC Count 5.17 4.60 - 6.10 10*6/uL LAB HEMATOLOGY METHOD 03/08/2023 10:46 AM EDT [facility] HGB 14.6 13.7 - 17.5 g/dL LAB HEMATOLOGY METHOD 03/08/2023 10:46 AM EDT [facility] HCT 44.8 40.0 - 51.0 % LAB HEMATOLOGY METHOD 03/08/2023 10:46 AM EDT [facility] Platelet Count 154(L) 155 - 369 10*3/uL LAB HEMATOLOGY METHOD 03/08/2023 10:46 AM EDT [facility] MCV 87 79 - 98 fL LAB HEMATOLOGY METHOD 03/08/2023 10:46 AM EDT [facility] MCH 28.2 26.0 - 32.0 pg LAB HEMATOLOGY METHOD 03/08/2023 10:46 AM EDT [facility] MCHC 32.6 30.7 - 35.5 g/dL LAB HEMATOLOGY METHOD 03/08/2023 10:46 AM EDT [facility] RDW 14.4 11.5 - 14.5 % LAB HEMATOLOGY METHOD 03/08/2023 10:46 AM EDT [facility] MPV 10.9 8.8 - 12.5 fL LAB HEMATOLOGY METHOD 03/08/2023 10:46 AM EDT [facility] nRBC 0.0 <=0.0 per 100 WBCs LAB HEMATOLOGY METHOD 03/08/2023 10:46 AM EDT [facility] Differential Type Automated LAB HEMATOLOGY METHOD 03/08/2023 10:46 AM EDT [facility] Neutrophils % 76.0 % LAB HEMATOLOGY METHOD 03/08/2023 10:46 AM EDT [facility] Lymphocytes % 13.0 % LAB HEMATOLOGY METHOD 03/08/2023 10:46 AM EDT [facility] Monocytes % 8.0 % LAB HEMATOLOGY METHOD 03/08/2023 10:46 AM EDT [facility] Eosinophils % 3.0 % LAB HEMATOLOGY METHOD 03/08/2023 10:46 AM EDT [facility] Basophils % 0.0 % LAB HEMATOLOGY METHOD 03/08/2023 10:46 AM EDT [facility] Immature Granulocytes % 0.0 % LAB HEMATOLOGY METHOD 03/08/2023 10:46 AM EDT [facility] Neutrophils Absolute 4.48 1.60 - 6.10 10*3/uL LAB HEMATOLOGY METHOD 03/08/2023 10:46 AM EDT [facility] Lymphocytes Absolute 0.79(L) 1.20 - 3.90 10*3/uL LAB HEMATOLOGY METHOD 03/08/2023 10:46 AM EDT [facility] Monocytes Absolute 0.50 0.30 - 0.90 10*3/uL LAB HEMATOLOGY METHOD 03/08/2023 10:46 AM EDT [facility] Eosinophils Absolute 0.15 0.00 - 0.50 10*3/uL LAB HEMATOLOGY METHOD 03/08/2023 10:46 AM EDT [facility] Basophils Absolute 0.02 0.00 - 0.10 10*3/uL LAB HEMATOLOGY METHOD 03/08/2023 10:46 AM EDT [facility] Immature Granulocytes Absolute 0.02 0.00 - 0.06 10*3/uL LAB HEMATOLOGY METHOD 03/08/2023 10:46 AM EDT [facility] Blood Blood sample taken from central line / Unknown (Port) Long-term Catheter / Unknown 03/08/2023 10:19 AM EDT 03/08/2023 10:39 AM EDT Narrative [facility] - 03/08/2023 10:46 AM EDT Therapeutic decision making should be based on absolute values, rather than percentages. Divine Carpenter MD LAB BLOOD ORDERABLES Final R esult [facility] [address] [place] [address] documented in this encounter Visit Diagnoses Diagnosis 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) 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, unspecified site Type 2 diabetes mellitus without complication, unspecified whether terminal operations manager insulin use (CMS/HCC) documented in this encounter Additional Health Concerns Assessment Noted Time A fall risk assessment has been complete d for the patient 12/07/2022 10:46 AM EDT A Body Mass Index follow-up plan has been documented for the patient 09/10/2022 11:09 AM EDT documented as of this encounter Care Teams Boatbuilder Supervisor Relationship Specialty Start Date End Date Michele Wright MD [address] [place] [address] PCP - General 10/11/20 Edgar Szymanski MD [address] [facility] [address] [place] [address] Radiation Oncologist Radiation Therapy 03/14/20 4 Shun Hurst MD [address] [facility] [address] [place] [address] Surgeon Neurosurgery 02/24/21 Divine Carpenter MD [address] [facility] [address] [place] [address] Medical Oncologist Medical Oncology 06/13/21 documented as of this encounter
--- OUTSIDE RECORDS SUMMARY | 2024-05-03 13:37 | XMS_ITS | Encounter Summary ---
Author Organization [facility] Address [address] [place] [address] Care Team Providers Care Sanitor Name Role Phone Michele Wright MD Primary Care Provider + [phone] Edgar Szymanski MD Unavailable [phone] Shun Hurst MD Unavailable [phone] Divine Carpenter MD Unavailable [phone] Encounter Details Date Type Department Care Team (Latest Contact Info) Description 12/04/2022 Travel Social History Tobacco Use Types Packs/Day Years Used Date Smoking Tobacco: Former Cigarettes Q uit: 2000 Smokeless Tobacco: Never Alcohol Use Standard [...] Pav CC Head, Neck & Respiratory [address] [facility], [address]nd [place] [address] 07/17/2024 1:30 PM EST Appointment PAV G Radiology [address] [place] [address] 07/20/2024 2:50 PM EST Office Visit Pav CC Head, Neck & Respiratory [address] [facility], [address]nd [place] [address] Divine Carpenter MD 800 [facility] [address] [facility] [address] [place] [address] documented as of this encounter Visit Diagnoses Not on filedocumented in this encounter Additional Health Concerns Assessment Noted Time A fall risk assessment has been complete d for the patient 10/01/2022 8:56 AM EDT A Body Mass Index follow-up plan has been documented for the patient 09/10/2022 11:09 AM EDT documented as of this encounter Care Teams Sanitor Relationship Specialty Start Date End Date Michele Wright MD [address] [place], [place] [address] PCP - General 10/11/20 Edgar Szymanski MD [address] [facility] [address] [place] [address] Radiation Oncologist Radiation Therapy 03/14/20 4 Shun Hurst MD [address] [place] [address] Surgeon Neurosurgery 02/24/21 Divine Carpenter MD [address] [facility] Diane Zuniga [facility] [address] [place] [address] Medical Oncologist Medical Oncology 06/13/21 documented as of this encounter
--- OUTSIDE RECORDS SUMMARY | 2024-05-03 13:37 | XMS_ITS | Encounter Summary ---
Author Organization [facility] Address [facility] [place] [address] Care Team Providers Care Hand Surgeon Name Role Phone Michele Wright MD Primary Care Provider + [phone] Edgar Szymanski MD Unavailable [phone] Shun Hurst MD Unavailable [phone] Divine Carpenter MD Unavailable [phone] Reason for Visit * Reason Onset Date Comments Med Refill 07/15/2022 Encounter Details Date Type Department Care Team (Late st Contact Info) Description 07/15/2022 Refill [facility] [address] [place] [address] Ambika Ambriz, RN [facility] Social [...] Orientation Straight 11/21/2020 2: 37 PM EDT COVID-19 Exposure Response Date Recorded In the last 10 days, have yo u been in contact with someone who was confirmed or suspected to have Coronavirus/COVID-19? No / Unsure 07/15/2022 12:50 PM EST documented as of this encounter Plan of Treatment Upcoming Encounters Date Type Department Care Team (Late st Contact Info) Description 07/17/2024 12:30 PM EST Clinical Support [facility] Head[facility] Res[facility] [address] [facility], [address]nd [place] [address] 07/17/2024 1:30 PM EST Appointment [facility] Radiology [address] [place] [address] 07/20/2024 2:50 PM EST Office Visit [facility] Head[facility] Neck [facility] Respiratory [address] [facility], [address]nd [place] [address] Divine Carpenter MD [address] [facility] [address] [place] [phone] documented as of this encounter Visit Diagnoses Not on filedocumented in this encounter Additional Health Concerns Assessment Noted Time A fall risk assessment has been complete d for the patient 06/11/2022 10:00 AM EST A Body Mass Index follow-up plan has been documented for the patient 07/15/2022 1:51 PM EST documented as of this encounter Care Teams Hand Surgeon Relationship Specialty Start Date End Date Michele Wright MD [address] [place] [address] PCP - General 10/11/20 Edgar Szymanski MD [address] [facility] [address] [place] [phone] Radiation Oncologist Radiation Therapy 03/14/20 4 Shun Hurst MD [address] [facility] [address] [place] [address] Surgeon Neurosurgery 02/24/21 Divine Carpenter MD [address] [facility] [address] Zuniga [facility] [address] [place] [address] Medical Oncologist Medical Oncology 06/13/21 documented as of this encounter
--- OUTSIDE RECORDS SUMMARY | 2024-05-03 13:37 | XMS_ITS | Encounter Summary ---
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) Procedures CT Soft Tissue Neck w IV Contrast Divine Carpenter MD [address] [address] Phone: tel: fax: Referral ID Status Reason Start Date Expiration Date Visits Re quested Visits Authorized [id number] Closed 12/06/2022 06/06/2024 1 1 * Imaging (Routine) - Closed Specialty Diagnoses / Procedures Referred By Contac t Referred To Contact Radiology Diagnoses 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) Procedures CT Chest w IV Contrast Divine Carpenter MD [address] [address] Phone: tel: fax: Referral ID Status Reason Start Date Expiration Date Visits Re quested Visits Authorized [id number] Closed 12/06/2022 06/06/2024 1 1 * Imaging (Routine) - Closed Specialty Diagnoses / Procedures Referred By Contac t Referred To Contact Radiology Diagnoses 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) Procedures CT Abdomen Pelvis w IV Contrast Divine Carpenter MD [address] [address] Phone: tel: fax: Referral ID Status Reason Start Date Expiration Date Visits Re quested Visits Authorized [id number] Closed 12/06/2022 06/06/2024 1 1 Reason for Visit * Imaging (Routine) - Closed Specialty Diagnoses / Procedures Referred By Contac t Referred To Contact Radiology Diagnoses 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) Procedures CT Soft Tissue Neck w IV Contrast Divine Carpenter MD [address] [address] Phone: tel: fax: Referral ID Status Reason Start Date Expiration Date Visits Re quested Visits Authorized [id number] Closed 12/06/2022 06/06/2024 1 1 Encounter Details Date Type Department Care Team (Latest Contact Info) Description 03/08/2023 11:05 AM EDT - 03/08/2023 11:59 PM EDT Hospital Encounter [facility] Radiology [address] [place] [address] Cancer of larynx (CMS/HCC); Secondary malignant neoplasm of chest wall (CMS/HCC) Discharge Disposition: Home or Self Care Social [...] Everywhere. * Contrast Imaging Discharge Instructions ([place]) ([place]) documented in this encounter Medications at Time of Discharge ALPRAZolam (Xanax) 1 MG tablet Take 1 tablet (1 mg) by mouth 2 (two) times a day. 05/17/2023 dexamethasone (Decadron) 6 MG tablet Take 1 tablet (6 mg total) by mouth 1 (one) time each day for 6 doses. 6 tablet 06/17/2021 03/11/2023 gabapentin (Neurontin) 600 MG tablet Take 1 tablet (600 mg total) by mouth 4 (four) times a day. 120 tablet 1 04/21/2021 05/17/2023 hydroCHLOROthiaz anitra (HYDRODiuril) 25 MG tablet Take 1 tablet (25 mg total) by mouth 1 (one) time each day. 30 tablet 11 06/17/2021 07/12/2023 levothyroxine (Synthroid, Levoxyl) 125 MCG tablet 12/31/2022 07/12/2023 levothyroxine (Synthroid, Levoxyl) 150 MCG tablet Take 1 tablet (150 mcg) by mouth 1 (one) time each day before breakfast. 03/11/2023 lisinopril 5 MG tablet Take 1 tablet [...] [facility] Head[facility] Neck [facility] Respiratory [address] [facility], [address]nd [place] [address] 07/17/2024 1:30 PM EST Appointment [facility] Radiology [address] [place] [address] 07/20/2024 2:50 PM EST Office Visit [facility] Head[facility] Neck & Respiratory [address] [facility], [address]nd [place] [address] Divine Carpenter MD [address] [facility] [address] [place] [address] documented as of this encounter Procedures Procedure Name Priority Date/Time Associated Diagnosis Comments CT ABDOMEN PELVIS W IV CONTRAST Routine 03/08/2023 11:51 AM EDT 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) CT CHEST W IV CONTRAST Routine 03/08/2023 11:51 AM EDT 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) CT SOFT TISSUE NECK W IV CONTRAST Routine 03/08/2023 11:51 AM EDT 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) documented in this encounter Results * CT Soft Tissue Neck w IV Contrast (03/08/2023 11:51 AM EDT) Anatomical Region Laterality Modality Neck Computed Tomogra phy Impressions 03/08/2023 4:37 PM EDT Unchanged since the previous examination. No recurrence. Diminutive carotid arteries bilaterally, internal carotid arteries measure approximately 3 mm transversely throughout the neck. Moderate-marked stenosis of the origin of the right internal carotid artery. If further evaluation is clinically indicated, CT angiography examination could be obtained. Elias Washburn M.D. This report has been electronically signed and verified by the Radiologist whose name is printed above. DD: ??03/08/2023/DT: ??03/08/2023 This report contains privileged and confidential information [...] error, please notify the sender immediately at [phone] and permanently delete the original report and destroy any copies or printouts. Narrative 03/08/2023 4:37 PM EDT [facility] ? - Phone Outpatient NAME: Anibal Barreto ?? DATE OF EXAM: 03/08/2023 Patient No: ??[id number] Physician: ??Jayden^Divine Date of : ??1965 Past Medical/Surgical History (entered by technologist): ?? 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 Contrast Agent and Dose: Omnipaque 300 100 mL intravenous Automated exposure control was used for radiation dose reduction. Total DLP 1476 mGy-cm Technique: Axial CT examination of the neck with intravenous contrast. Multiplanar reformats were generated. Comparison: CT neck 04-Dec-22 FINDINGS: Unchanged since the previous examination. Laryngectomy, neck dissection, flap reconstruction, tracheostomy, transesophageal puncture tube. No mass or significant cervical adenopathy. Right hemiatrophy of the tongue. Left internal jugular venous catheter, traverses the superior vena cava, tip not seen. Tracheostomy tube in good position. Visualized brain and orbits appear normal. No suspicious bone lesions. moderate degenerative changes of the cervical spine. Scarring at the lung apices. Diminutive carotid arteries bilaterally, internal carotid arteries measure approximately 3 mm transversely throughout the neck. Moderate-marked stenosis of the origin of the right internal carotid artery. 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 Contrast Agent and Dose: Omnipaque 300 100 mL intravenous Automated exposure control was used for radiation dose reduction. TotalDLP 1476 mGy-cm Technique: Axial CT examination of the neck with intravenous contrast.Multiplanar reformats were generated. Comparison: CT neck 04-Dec-22 FINDINGS: Unchanged since the previous examination. Laryngectomy, neck dissection, flap reconstruction, tracheostomy,transesophageal puncture tube. No mass or significant cervical adenopathy.Right hemiatrophy of the tongue. Left internal jugular venous catheter,traverses the superior vena cava, tip not seen. Tracheostomy tube in goodposition. Visualized brain and orbits appear normal. No suspicious bonelesions. moderate degenerative changes of the cervical spine. Scarring atthe lung apices. Diminutive carotid arteries bilaterally, internal carotid arteries measureapproximately 3 mm transversely throughout the neck. Moderate- markedstenosis of the origin of the right internal carotid artery. IMPRESSION: Unchanged since the previous examination. No recurrence. Diminutive carotid arteries bilaterally, internal carotid arteries measureapproximately 3 mm transversely throughout the neck. Moderate- markedstenosis of the origin of the right internal carotid artery. If furtherevaluation is clinically indicated, CT angiography examination could beobtained. Elias Washburn M.D. This report has been electronically signed and verified by the Radiologistwhose name is printed above. / This report contains privileged and confidential information [...] in error, pleasenotify the sender immediately at [phone] and permanently delete theoriginal report and destroy any copies or printouts. us Divine Carpenter MD IMG CT PROCEDURES Final Resu lt * CT Chest w IV Contrast (03/08/2023 11:51 AM EDT) Anatomical Region Laterality Modality Chest Computed Tomogra phy Impressions 03/08/2023 12:20 PM EDT No evidence of neoplastic progression. CRITICAL RESULT: No. COMMUNICATION: Per this written report. Drafted by Louie Liu MD on 03/08/2023 12:17 PM Final report signed by Louie Liu MD on 03/08/2023 12:20 PM Narrative 03/08/2023 12:20 PM EDT CLINICAL INDICATION: Laryngeal cancer. TECHNIQUE: Multiple CT helical images were obtained from thoracic inlet through pubic symphysis with administration of IV contrast. 100 ??mL of Omnipaque-300 were administered intravenously. Total DLP (Dose-Length Product): 1476 mGy*cm. Please note: The reported value represents the total of one or more individual components during the CT acquisition on this date and at this time, and as such, the same value may appear in more than one CT report depending on the interpreting/reporting physicians. COMPARISON: December 04, 2022 FINDINGS: Mediastinum and Pleura: Tracheostomy. No enlarging mediastinal or hilar lymph nodes. Left chest wall Port-A-Cath tip at the superior vena cava. Moderate coronary artery calcification. No pleural effusion. Lungs: Right apical scarring and prior wedge resection are again noted, unchanged. Some anterior right lung fibrosis is stable. Bilateral lower lung reticulation, greatest on the left, similar prior. Abdomen and Pelvis: No new suspicious solid abdominal organ lesions. No abdominal pelvic lymphadenopathy. No free fluid. Atherosclerosis of the aorta. Musculoskeletal: No new bony destructive lesion. Right chest wall venous collaterals again noted. Procedure Note Louie Liu MD - 03/08/2023 CLINICAL INDICATION: Laryngeal cancer. TECHNIQUE: Multiple CT helical images were obtained from thoracic inlet through pubicsymphysis with administration of IV contrast. 100 mL of Omnipaque-300were administered intravenously. Total DLP (Dose-Length Product): 1476 mGy*cm. Please note: The reportedvalue represents the total of one or more individual components during theCT acquisition on this date and at this time, and as such, the same valuemay appear in more than one CT report depending on theinterpreting/reporting physicians. COMPARISON: December 04, 2022 FINDINGS: Mediastinum and Pleura: Tracheostomy. No enlarging mediastinal or hilarlymph nodes. Left chest wall Port-A-Cath tip at the superior vena cava.Moderate coronary artery calcification. No pleural effusion. Lungs: Right apical scarring and prior wedge resection are again noted,unchanged. Some anterior right lung fibrosis is stable. Bilateral lowerlung reticulation, greatest on the left, similar prior. Abdomen and Pelvis: No new suspicious solid abdominal organ lesions. Noabdominal pelvic lymphadenopathy. No free fluid. Atherosclerosis of theaorta. Musculoskeletal: No new bony destructive lesion. Right chest wall venouscollaterals again noted. IMPRESSION: No evidence of neoplastic progression. CRITICAL RESULT: No. COMMUNICATION: Per this written report. Drafted by Louie Liu MD on 03/08/2023 12:17 PM Final report signed by Louie Liu MD on 03/08/2023 12:20 PM us Divine Carpenter MD IMG CT PROCEDURES Final Resu lt * CT Abdomen Pelvis w IV Contrast (03/08/2023 11:51 AM EDT) Anatomical Region Laterality Modality Abdomen, Pelvis Computed Tomogra phy Impressions 03/08/2023 12:20 PM EDT No evidence of neoplastic progression. CRITICAL RESULT: No. COMMUNICATION: Per this written report. Drafted by Louie Liu MD on 03/08/2023 12:17 PM Final report signed by Louie Liu MD on 03/08/2023 12:20 PM Narrative 03/08/2023 12:20 PM EDT CLINICAL INDICATION: Laryngeal cancer. TECHNIQUE: Multiple CT helical images were obtained from thoracic inlet through pubic symphysis with administration of IV contrast. 100 ??mL of Omnipaque-300 were administered intravenously. Total DLP (Dose-Length Product): 1476 mGy*cm. Please note: The reported value represents the total of one or more individual components during the CT acquisition on this date and at this time, and as such, the same value may appear in more than one CT report depending on the interpreting/reporting physicians. COMPARISON: December 04, 2022 FINDINGS: Mediastinum and Pleura: Tracheostomy. No enlarging mediastinal or hilar lymph nodes. Left chest wall Port-A-Cath tip at the superior vena cava. Moderate coronary artery calcification. No pleural effusion. Lungs: Right apical scarring and prior wedge resection are again noted, unchanged. Some anterior right lung fibrosis is stable. Bilateral lower lung reticulation, greatest on the left, similar prior. Abdomen and Pelvis: No new suspicious solid abdominal organ lesions. No abdominal pelvic lymphadenopathy. No free fluid. Atherosclerosis of the aorta. Musculoskeletal: No new bony destructive lesion. Right chest wall venous collaterals again noted. Procedure Note Louie Liu MD - 03/08/2023 CLINICAL INDICATION: Laryngeal cancer. TECHNIQUE: Multiple CT helical images were obtained from thoracic inlet through pubicsymphysis with administration of IV contrast. 100 mL of Omnipaque-300were administered intravenously. Total DLP (Dose-Length Product): 1476 mGy*cm. Please note: The reportedvalue represents the total of one or more individual components during theCT acquisition on this date and at this time, and as such, the same valuemay appear in more than one CT report depending on theinterpreting/reporting physicians. COMPARISON: December 04, 2022 FINDINGS: Mediastinum and Pleura: Tracheostomy. No enlarging mediastinal or hilarlymph nodes. Left chest wall Port-A-Cath tip at the superior vena cava.Moderate coronary artery calcification. No pleural effusion. Lungs: Right apical scarring and prior wedge resection are again noted,unchanged. Some anterior right lung fibrosis is stable. Bilateral lowerlung reticulation, greatest on the left, similar prior. Abdomen and Pelvis: No new suspicious solid abdominal organ lesions. Noabdominal pelvic lymphadenopathy. No free fluid. Atherosclerosis of theaorta. Musculoskeletal: No new bony destructive lesion. Right chest wall venouscollaterals again noted. IMPRESSION: No evidence of neoplastic progression. CRITICAL RESULT: No. COMMUNICATION: Per this written report. Drafted by Louie Liu MD on 03/08/2023 12:17 PM Final report signed by Louie Liu MD on 03/08/2023 12:20 PM Divine Carpenter MD IMG CT PROCEDURES Final Resu lt documented in this encounter Visit Diagnoses Diagnosis 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, unspecified site Secondary malignant neoplasm of chest wall (CMS/HCC) documented in this encounter Administered Medications Inactive Administered Medications - up to 3 most recent administrations Medication Order MAR Action Action Date Dose Rate Site heparin flush (porcine) 100 UNIT/ML injection 500 Units 500 Units, Intracatheter, Once as needed, Starting on Wed03/08/23 at 1120, Until Wed03/08/23 at 2319, Routine, Intraprocedure, line care Given 03/08/2023 11:58 AM EDT 500 Units iohexol (OMNIPaque) 300 MG/ML injection 100 mL 100 mL, Intravenous, Once in imaging, 1 dose, Starting on Wed03/08/23 at 1108, Until Wed03/08/23 at 1148, Routine, Imaging Protocol Orders Given 03/08/2023 11:48 AM EDT 100 mL iohexol (OMNIPaque) 9 MG/ML oral contrast 500 mL 500 mL, Oral, Once in imaging, 1 dose, Starting on 03/08/23 at 1108, Until Wed03/08/23 at 1117, Routine, Imaging Protocol Orders Given 03/08/2023 11:17 AM EDT 500 mL documented in this encounter Additional Health Concerns Assessment Noted Time A fall risk assessment has been complete d for the patient 12/07/2022 10:46 AM EDT A Body Mass Index follow-up plan has been documented for the patient 09/10/2022 11:09 AM EDT documented as of this encounter Care Teams Geological Sample Tester Relationship Specialty Start Date End Date Michele Wright MD [address] [place] [address] PCP - General 10/11/20 Edgar Szymanski MD [address] [facility] [address] [place] [address] Radiation Oncologist Radiation Therapy 03/14/20 4 Shun Hurst MD [address] [place] [address] Surgeon Neurosurgery 02/24/21 Divine Carpenter MD [address] [place] [phone] Medical Oncologist Medical Oncology 06/13/21 documented as of this encounter
--- OUTSIDE RECORDS SUMMARY | 2024-05-03 13:37 | XMS_ITS | Encounter Summary ---
Author Organization [facility] Address [address] [place] [address] Care Team Providers Care Hris Coordinator Name Role Phone Michele Wright MD Primary Care Provider [phone] Edgar Szymanski MD Unavailable [phone] Shun Hurst MD Unavailable [phone] Divine Carpenter MD Unavailable [phone] Encounter Details Date Type Department Care Team (Latest Contact Info) Description 03/08/2023 Travel Social History Tobacco Use Types Packs/Day [...] Encounters Date Type Department Care Team ( Contact Info) Description 07/17/2024 12:30 PM EST Clinical Support Pav [facility] Head, Neck & Respiratory [address] [facility], [address]nd [place] [address] 07/17/2024 1:30 PM EST Appointment [facility] Radiology [address] [place] [address] 07/20/2024 2:50 PM EST Office Visit Pav CC Head, Neck & Respiratory [address] [facility], [address]nd [place] [address] Divine Carpenter MD [address] [facility] [address] Zuniga [facility] [address] [place] [address] documented as of this encounter Visit Diagnoses Not on filedocumented in this encounter Additional Health Concerns Assessment Noted Time A fall risk assessment has been complete d for the patient 12/07/2022 10:46 AM EDT A Body Mass Index follow-up plan has been documented for the patient 09/10/2022 11:09 AM EDT documented as of this encounter Care Teams Hris Coordinator Relationship Specialty Start Date End Date Michele Wright MD [address] [place], [place] [id number] PCP - General 10/11/20 Edgar Szymanski MD [address] [facility] [address] [place] [address] Radiation Oncologist Radiation Therapy 03/14/20 4 Shun Hurst MD [address] [place] [address] Surgeon Neurosurgery 02/24/21 Divine Carpenter MD [address] [facility] [address] Zuniga [facility] [address] [place] [address] Medical Oncologist Medical Oncology 06/13/21 documented as of this encounter
--- OUTSIDE RECORDS SUMMARY | 2024-05-03 13:37 | XMS_ITS | Encounter Summary ---
Author Organization Healthcare Address [address] [place] [address] Care Team Providers Care Medical Supply Technician Name Role Phone Michele Wright MD Primary Care Provider + [phone] Edgar Szymanski MD Unavailable [phone] Shun Hurst MD Unavailable [phone] Divine Carpenter MD Unavailable [phone] Encounter Details Date Type Department Care Team (Late st Contact Info) Description 07/15/2022 Orders Only Pav [facility] Head, Neck & Respiratory [address] [facility], [address] [place] [address] Ambika Ambriz RN [facility] Social History Tobacco Use Types Packs/Day Years Used Date Smoking Tobacco: Former Cigarettes Q uit: 2001 Smokeless Tobacco: Never Alcohol Use Standard Drinks/Week [...] 800 [facility], [address] [place] [address] 07/17/2024 1:30 PM EST Appointment PAV G Radiology [address] [place] [address] 07/20/2024 2:50 PM EST Office Visit Pav CC Head, Neck & Respiratory 800 [facility], [address] [place] [address] Divine Carpenter MD 800 [facility] [address] [place] [address] documented as of this encounter Visit Diagnoses Not on filedocumented in this encounter Additional Health Concerns Assessment Noted Time A fall risk assessment has been complete d for the patient 06/11/2022 10:00 AM EST A Body Mass Index follow-up plan has been documented for the patient 07/15/2022 1:51 PM EST documented as of this encounter Care Teams Medical Supply Technician Relationship Specialty Start Date End Date Michele Wright MD [address] [place] [address] PCP - General 10/11/20 Edgar Szymanski MD 800 [facility] [address] [place] [phone] Radiation Oncologist Radiation Therapy 03/14/20 4 Shun Hurst MD [address] [facility] [address] [place] [address] Surgeon Neurosurgery 02/24/21 Divine Carpenter MD 800 [facility] Efrain [facility] [address] [place] [address] Medical Oncologist Medical Oncology 06/13/21 documented as of this encounter
--- OUTSIDE RECORDS SUMMARY | 2024-05-03 13:37 | XMS_ITS | Encounter Summary ---
Author Organization [facility] Address [address] [place] [address] Care Team Providers Care Bone Drier Operator Name Role Phone Michele Wright MD Primary Care Provider + [phone] Edgar Szymanski MD Unavailable [phone] Shun Hurst MD Unavailable [phone] Divine Carpenter MD Unavailable [phone] Encounter Details Date Type Department Care Team (Latest Contact Info) Description 12/07/2022 Travel Social History Tobacco Use Types Packs/Day [...] Pav CC Head, Neck & Respiratory 800 [facility], [address] [place] [address] 07/17/2024 1:30 PM EST Appointment PAV G Radiology [address] [place] [address] 07/20/2024 2:50 PM EST Office Visit Pav CC Head, Neck & Respiratory 800 [facility], [address] [place] [address] Divine Carpenter MD 800 [facility] Diane Zuniga [facility] [address] [place] [address] documented as of this encounter Visit Diagnoses Not on filedocumented in this encounter Additional Health Concerns Assessment Noted Time A fall risk assessment has been complete d for the patient 12/07/2022 10:46 AM EDT A Body Mass Index follow-up plan has been documented for the patient 09/10/2022 11:09 AM EDT documented as of this encounter Care Teams Bone Drier Operator Relationship Specialty Start Date End Date Michele Wright MD [address] [place], [place] [id number] PCP - General 10/11/20 Edgar Szymanski MD 800 [facility] [address] [place] [address] Radiation Oncologist Radiation Therapy 03/14/20 4 Shun Hurst MD [address] [place] [address] Surgeon Neurosurgery 02/24/21 Divine Carpenter MD 800 [facility] Diane Zuniga [facility] [address] [place] [address] Medical Oncologist Medical Oncology 06/13/21 documented as of this encounter
--- OUTSIDE RECORDS SUMMARY | 2024-05-03 13:37 | XMS_ITS | Encounter Summary ---
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 No / Unsure 09/08/2022 10:44 AM EDT documented as of this encounter Plan of Treatment Upcoming Encounters Date Type Department Care Team (Late st Contact Info) Description 07/17/2024 12:30 PM EST Clinical Support Pav CC Head, Neck & Respiratory 800 [facility], [address]nd [place] [address] 07/17/2024 1:30 PM EST Appointment PAV G Radiology [address] [place] [address] 07/20/2024 2:50 PM EST Office Visit Pav CC Head, Neck & Respiratory [address] [facility], [address] [place] [address] Divine Carpenter MD 800 [facility] Diane Zuniga dg [address] [place] [address] documented as of this encounter Procedures Procedure Name Priority Date/Time Associated Diagnosis Comments CBC WITH AUTO DIFFERENTIAL Routine 09/08/2022 12:16 PM EDT 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) TSH Routine 09/08/2022 12:16 PM EDT 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 RBC Count 5.20 4.60 - 6.10 10*6/uL LAB HEMATOLOGY METHOD 09/08/2022 12:36 PM ED[address] [facility] HGB 14.6 13.7 - 17.5 g/dL LAB HEMATOLOGY METHOD 09/08/2022 12:36 PM ED[address] [facility] HCT 45.0 40.0 - 51.0 % LAB HEMATOLOGY METHOD 09/08/2022 12:36 PM ED[address] [facility] Platelet Count 158 155 - 369 10*3/uL LAB HEMATOLOGY METHOD 09/08/2022 12:36 PM ED[address] [facility] MCV 87 79 - 98 fL LAB HEMATOLOGY METHOD 09/08/2022 12:36 PM ED[address] [facility] MCH 28.1 26.0 - 32.0 pg LAB HEMATOLOGY METHOD 09/08/2022 12:36 PM EDT [facility] MCHC 32.4 30.7 - 35.5 g/dL LAB HEMATOLOGY METHOD 09/08/2022 12:36 PM ED[address] [facility] RDW 13.4 11.5 - 14.5 % LAB HEMATOLOGY METHOD 09/08/2022 12:36 PM ED[address] [facility] MPV 10.3 8.8 - 12.5 fL LAB HEMATOLOGY METHOD 09/08/2022 12:36 PM ED[address] [facility] nRBC 0.0 <=0.0 per 100 WBCs LAB HEMATOLOGY METHOD 09/08/2022 12:36 PM EDT [facility] Differential Type Automated LAB HEMATOLOGY METHOD 09/08/2022 12:36 PM ED[address] [facility] Neutrophils % 74.0 % LAB HEMATOLOGY METHOD 09/08/2022 12:36 PM ED[address] [facility] Lymphocytes % 13.0 % LAB HEMATOLOGY METHOD 09/08/2022 12:36 PM ED[address] [facility] Monocytes % 11.0 % LAB HEMATOLOGY METHOD 09/08/2022 12:36 PM ED[address] [facility] Eosinophils % 2.0 % LAB HEMATOLOGY METHOD 09/08/2022 12:36 PM ED[address] [facility] Basophils % 0.0 % LAB HEMATOLOGY METHOD 09/08/2022 12:36 PM ED[address] [facility] Immature Granulocytes % 0.0 % LAB HEMATOLOGY METHOD 09/08/2022 12:36 PM ED[address] [facility] Neutrophils Absolute 3.71 1.60 - 6.10 10*3/uL LAB HEMATOLOGY METHOD 09/08/2022 12:36 PM ED[address] [facility] Lymphocytes Absolute 0.63(L) 1.20 - 3.90 10*3/uL LAB HEMATOLOGY METHOD 09/08/2022 12:36 PM EDT [facility] Monocytes Absolute 0.52 0.30 - 0.90 10*3/uL LAB HEMATOLOGY METHOD 09/08/2022 12:36 PM EDT [facility] Eosinophils Absolute 0.09 0.00 - 0.50 10*3/uL LAB HEMATOLOGY METHOD 09/08/2022 12:36 PM EDT [facility] Basophils Absolute 0.01 0.00 - 0.10 10*3/uL LAB HEMATOLOGY METHOD 09/08/2022 12:36 PM ED[address] [facility] Immature Granulocytes Absolute 0.01 0.00 - 0.06 10*3/uL LAB HEMATOLOGY METHOD 09/08/2022 12:36 PM EDT [facility] Blood Venous blood specimen / Unknown Venipuncture / Unknown 09/08/2022 12:16 PM EDT 09/08/2022 12:27 PM EDT Narrative [facility] - 09/08/2022 12:36 PM EDT Therapeutic decision making should be based on absolute values, rather than percentages. us Divine Carpenter MD LAB BLOOD ORDERABLES Final R esult [facility] [address] [place] [address] * (ABNORMAL) Comprehensive Metabolic Panel, Plasma (09/08/2022 12:16 PM EDT) Glucose, Plasma 93 74 - 99 mg/dL 09/08/2022 1:35 [address] [facility] BUN, Plasma 18 7 - 21 mg/dL 09/08/2022 1:35 PM ED[address] [facility] Creatinine, Plasma 0.93 0.80 - 1.30 mg/dL 09/08/2022 1:35 PM ED[address] [facility] BUN/Creatinine Ratio 19 09/08/2022 1:35 PM ED[address] [facility] Sodium, Plasma 137 136 - 145 mmol/L 09/08/2022 1:[address] [facility] Potassium, Plasma 3.8 3.7 - 4.8 mmol/L 09/08/2022 1:35 [address] [facility] Chloride, Plasma 96(L) 97 - 107 mmol/L 09/08/2022 1:35 PM EDT [facility] CO2, Plasma 30(H) 22 - 29 mmol/L 09/08/2022 1:35 PM [address] [facility] Anion Gap 11 6 - 16 mmol/L 09/08/2022 1:35 [address] [facility] Total Calcium, Plasma 9.6 8.9 - 10.2 mg/dL 09/08/2022 1:35 [address] [facility] Total Protein 7.7 6.3 - 7.9 g/dL 09/08/2022 1:35 [address] [facility] Albumin, Plasma 4.3 3.5 - 5.2 g/dL 09/08/2022 1:35 [address] [facility] AST, Plasma 18 12 - 40 U/L 09/08/2022 1:[address] [facility] ALT, Plasma 9(L) 11 - 41 U/L 09/08/2022 1:[address] [facility] Alkaline Phosphatase, Plasma 79 40 - 115 U/L 09/08/2022 1:35 [address] [facility] Total Bilirubin, Plasma 1.0 0.2 - 1.1 mg/dL 09/08/2022 1:[address] [facility] eGFRcr 96.4 mL/min/1.7 3m*2 09/08/2022 1:[address] [facility] Comment: Reported eGFRcr in mL/min/1.73m2 is based the CKD-EPI 202 equation that does not use a race coefficient. Effective 12/24/21 our laboratory changed the eGFR calculation to the CKD-EPI 2021 equation from the previously reported eGFR, based on the MDRD equation. ??For comparisons between the two equations, please see laboratory website: ??[email or web address] Blood Venous blood specimen / Unknown Venipuncture / Unknown 09/08/2022 12:16 PM EDT 09/08/2022 12:57 PM EDT us Divine Carpenter MD LAB BLOOD ORDERABLES Final R esult [facility] [address] [place] [address] * Thyroid Stimulating Hormone, Plasma (09/08/2022 12:16 PM EDT) Thyroid Stimulating Hormone, Plasma 0.60 0.40 - 4.20 uIU/mL 09/08/2022 1:35 PM EDT [facility] Blood Venous blood specimen / Unknown Venipuncture / Unknown 09/08/2022 12:16 PM EDT 09/08/2022 12:57 PM EDT Divine Carpenter MD LAB BLOOD ORDERABLES Final R esult [facility] [address] [place] [address] documented in this encounter Visit Diagnoses Diagnosis 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, unspecified site documented in this encounter Additional Health Concerns Assessment Noted Time A fall risk assessment has been complete d for the patient 06/11/2022 10:00 AM EST A Body Mass Index follow-up plan has been documented for the patient 07/15/2022 1:51 PM EST documented as of this encounter Care Teams Cold Molding Press Operator Relationship Specialty Start Date End Date Michele Wright MD [address] [place] [address] PCP - General 10/11/20 Edgar Szymanski MD 800 [facility] [address] [place] [address] Radiation Oncologist Radiation Therapy 03/14/20 4 Shun Hurst MD [address] [place] [address] Surgeon Neurosurgery 02/24/21 Divine Carpenter MD 800 [facility] Diane Efrain [address] [place] [phone] Medical Oncologist Medical Oncology 06/13/21 documented as of this encounter
--- OUTSIDE RECORDS SUMMARY | 2024-05-03 13:37 | XMS_ITS | Encounter Summary ---
Author Organization Healthcare Address [address] [place] [address] Care Team Providers Care Digital Strategist Name Role Phone Michele Wright MD Primary Care Provider + [phone] Edgar Szymanski MD Unavailable [phone] Shun Hurst MD Unavailable [phone] Divine Carpenter MD Unavailable [phone] Encounter Details Date Type Department Care Team (Latest Contact Info) Description 09/10/2022 Travel Social History Tobacco Use Types Packs/Day [...] suspected to have Coronavirus/COVID-19? No / Unsure 09/10/2022 9:13 AM EDT documented as of this encounter Plan of Treatment Upcoming Encounters Date Type Department Care Team (Late st Contact Info) Description 07/17/2024 12:30 PM EST Clinical Support Pav CC Head, Neck & Respiratory [address] [facility], [address] [place] [address] 07/17/2024 1:30 PM EST Appointment PAV G Radiology [address] [place] [address] 07/20/2024 2:50 PM EST Office Visit Pav CC Head, Neck & Respiratory [address] [facility], [address] [place] [address] Divine Carpenter MD [address] [facility] Diane Zuniga [facility] [address] [place] [address] documented as of this encounter Visit Diagnoses Not on filedocumented in this encounter Additional Health Concerns Assessment Noted Time A fall risk assessment has been complete d for the patient 09/10/2022 9:40 AM EDT A Body Mass Index follow-up plan has been documented for the patient 09/10/2022 11:09 AM EDT documented as of this encounter Care Teams Digital Strategist Relationship Specialty Start Date End Date Michele Wright MD [address] [place] [address] PCP - General 10/11/20 Edgar Szymanski MD 800 [facility] [address] [place] [address] Radiation Oncologist Radiation Therapy 03/14/20 4 Shun Hurst MD [address] [facility] [address] [place] [address] Surgeon Neurosurgery 02/24/21 Divine Carpenter MD 800 [facility] Diane Zuniga [facility] [address] [place] [address] Medical Oncologist Medical Oncology 06/13/21 documented as of this encounter
--- OUTSIDE RECORDS SUMMARY | 2024-05-03 13:37 | XMS_ITS | Encounter Summary ---
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) Procedures CT Abdomen w IV Contrast Bailey Ellis MD [address] [address] Phone: tel: fax: Referral ID Status Reason Start Date Expiration Date Visits Re quested Visits Authorized [id number] Closed 06/10/2022 12/10/2023 1 1 * Imaging (Routine) - Closed Specialty Diagnoses / Procedures Referred By Contac Referred To Contact Radiology Diagnoses 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) Procedures CT Soft Tissue Neck w IV Contrast Bailey Ellis MD [address] [address] Phone: tel: fax: Referral ID Status Reason Start Date Expiration Date Visits Re quested Visits Authorized [id number] Closed 06/10/2022 12/10/2023 1 1 * Imaging (Routine) - Closed Specialty Diagnoses / Procedures Referred By Contac t Referred To Contact Radiology Diagnoses 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) Procedures CT Chest w IV Contrast Bailey Ellis MD [address] [address] Phone: tel: fax: Referral ID Status Reason Start Date Expiration Date Visits Re quested Visits Authorized [id number] Closed 06/10/2022 12/10/2023 1 1 Reason for Visit * Imaging (Routine) - Closed Specialty Diagnoses / Procedures Referred By Contac t Referred To Contact Radiology Diagnoses 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) Procedures CT Abdomen w IV Contrast Bailey Ellis MD [address] Diane Zuniga [address] [address] Phone: tel: fax: Referral ID Status Reason Start Date Expiration Date Visits Re quested Visits Authorized [id number] Closed 06/10/2022 12/10/2023 1 1 Encounter Details Date Type Department Care Team (Latest Contact Info) Description 09/08/2022 1:01 PM EDT - 09/08/2022 11:59 PM EDT Hospital Encounter [facility] [address] [place] [address] 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 * Contrast Imaging Discharge Instructions ([place]) ([place]) documented in this encounter Medications at Time [...] tablet 11 06/17/2021 07/12/2023 levothyroxine (Synthroid, Levoxyl) 150 MCG tablet Take 1 tablet (150 mcg) by mouth 1 (one) time each day before breakfast. 03/11/2023 lisinopril 5 MG tablet Take 1 tablet (5 mg total) by mouth 1 (one) time each day. 30 tablet 06/30/2021 07/12/2023 morphine ER (Aziza) 30 MG 24 hr capsule Take 1 capsule (30 mg) by mouth 1 (one) time each day. Do not crush or chew. 05/17/2023 omeprazole (PriLOSEC) [address] capsule TAKE 1 CAPSULE BY MOUTH EVERY DAY 90 capsule 2 01/19/2022 10/05/2022 ondansetron (Zofran) 8 MG tablet Take 1 [...] [facility] [address] [facility] [place] [id number] 07/17/2024 1:30 PM EST Appointment [facility] [address] [place] [address] 07/20/2024 2:50 PM EST Office Visit [facility] [address] [facility] [place] [id number] Bailey Ellis MD [address] [facility] [address]un[address] [facility] [address] [place] [address] documented as of this encounter Procedures Procedure Name Priority Date/Time Associated Diagnosis Comments CT ABDOMEN W IV CONTRAST Routine 09/08/2022 2:10 PM EDT 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) CT CHEST W IV CONTRAST Routine 09/08/2022 2:10 PM EDT 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 CRITICAL RESULT: No. COMMUNICATION: Per this written report. Dictated by Louie Liu MD on 09/08/2022 3:36 PM Signed by Louie Liu MD on 09/08/2022 3:41 PM Narrative 09/08/2022 3:41 PM EDT Exam/Procedure: CT CHEST W IV CONTRAST ordered by BAILEY ELLIS, [id number] CLINICAL INDICATION: Laryngeal cancer. TECHNIQUE: Multiple CT helical images were obtained from thoracic inlet through iliac crests with administration of IV contrast. 100 ??mL of Omnipaque-300 were administered intravenously. Total DLP (Dose-Length Product): 1491.43 mGy.cm. Please note: The reported value represents the total of one or more individual components during the CT acquisition on this date and at this time, and as such, the same value may appear in more than one CT report depending on the interpreting/reporting physicians. COMPARISON: June 09, 2022 FINDINGS: Mediastinum and Pleura: Partially visualized laryngectomy. Tracheostomy in place. No enlarging mediastinal or hilar adenopathy. No pleural effusion. Lungs: Some anterior right lung fibrosis is mild is stable. Right apical fibrosis and prior wedge resection is unchanged. Left lower lobe reticulation and right basal reticulation are stable. Abdomen: No measurable hepatic lesion currently identified. No enlarging upper abdominal adenopathy. Atherosclerosis of the aorta. Musculoskeletal: No suspicious lytic or sclerotic lesion. Procedure Note Louie Liu MD - 09/08/2022 Exam/Procedure: CT CHEST W IV CONTRAST ordered by BAILEY ELLIS,[id number] CLINICAL INDICATION: Laryngeal cancer. TECHNIQUE: Multiple CT helical images were obtained from thoracic inlet through iliaccrests with administration of IV contrast. 100 mL of Omnipaque-300 wereadministered intravenously. Total DLP (Dose-Length Product): 1491.43 mGy.cm. Please note: The reportedvalue represents the total of one or more individual components during theCT acquisition on this date and at this time, and as such, the same valuemay appear in more than one CT report depending on theinterpreting/reporting physicians. COMPARISON: June 09, 2022 FINDINGS: Mediastinum and Pleura: Partially visualized laryngectomy. Tracheostomy inplace. No enlarging mediastinal or hilar adenopathy. No pleuraleffusion. Lungs: Some anterior right lung fibrosis is mild is stable. Right apicalfibrosis and prior wedge resection is unchanged. Left lower lobereticulation and right basal reticulation are stable. Abdomen: No measurable hepatic lesion currently identified. No enlargingupper abdominal adenopathy. Atherosclerosis of the aorta. Musculoskeletal: No suspicious lytic or sclerotic lesion. IMPRESSION: No evidence of neoplastic progression in the chest or abdomen. CRITICAL RESULT: No. COMMUNICATION: Per this written report. Dictated by Louie Liu MD on 09/08/2022 3:36 PM Signed by Louie Liu MD on 09/08/2022 3:41 PM us Bailey Ellis MD IMG CT PROCEDURES Final Resu lt * CT Soft Tissue Neck w IV Contrast (09/08/2022 2:10 PM EDT) Anatomical Region Laterality Modality Neck Computed Tomogra phy Impressions 09/08/2022 9:08 PM EDT Extensive postsurgical and radiation effects as detailed above. No tumor recurrence or cervical adenopathy. CRITICAL RESULT: No. COMMUNICATION: Per this written report. Dictated by Mya Rodriguez MD on 09/08/2022 4:08 PM Signed by Mya Rodriguez MD on 09/08/2022 9:08 PM Narrative 09/08/2022 9:08 PM EDT Exam/Procedure: CT SOFT TISSUE NECK W IV CONTRAST ordered by BAILEY ELLIS, [id number] CLINICAL INDICATION: Laryngeal cancer status post chemoradiation therapy, assess treatment response. Hypothyroidism. TECHNIQUE: Helical images were obtained through the neck, and reconstructed in the axial plane on bone and soft tissue algorithm at multiple slice thicknesses. Coronal and sagittal reformatted images were created. 100 mL of Omnipaque 300 were administered intravenously. Total DLP (Dose-Length Product): 1491 mGy.cm. Please note: The reported value represents the total of one or more individual components during the CT acquisition on this date and at this time, and as such, the same value may appear in more than one CT report depending on the interpreting/reporting physicians. COMPARISON: Neck CT 06/09/2022 FINDINGS: Diagnostic Quality: Adequate. Soft Tissues: Extensive postsurgical changes are noted including total laryngectomy, tracheostomy with indwelling endotracheal tube, transesophageal puncture, partial thyroidectomy, flap reconstruction, and bilateral neck antonio dissection. There is effacement of fat planes and scattered surgical clips on both sides of the neck. Subcutaneous reticulation in the anterior neck suggests radiation effects. Lymph Nodes: Bilateral neck antonio dissections. No significant cervical adenopathy is present. Pharynx/Larynx: Post resection of the right oropharynx. Supraglottic swelling suggests radiation effects. No definite pharyngeal or laryngeal masses are present. Oral Cavity: Fatty conversion and posterior retropulsion of the right tongue indicates denervation atrophy. No large masses are present within the oral cavity within the limitations of the study. Parapharyngeal Space: No lesions are present within the parapharyngeal space. Salivary Glands: The parotid and submandibular glands are normal in size without definite focal lesions. Thyroid: Partial thyroidectomy. No focal lesions are present. Orbits/Paranasal Sinuses/Skull Base: No orbital masses are present within the visualized portions of the orbits. The visualized paranasal sinuses and mastoids are grossly clear. Within the skull base, there is no focal lesion or destructive process. 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 No bony destructive lesion is present. Thoracic Inlet and Lung Apices: Within the limitations of the study, no large masses are present at the thoracic inlet. Visualized upper lungs reveal linear atelectasis in the right apex. Please see the separate report for the chest CT scan for discussion of intrathoracic findings. Procedure Note Mya Rodriguez MD - 09/08/2022 Exam/Procedure: CT SOFT TISSUE NECK W IV CONTRAST ordered by BAILEY MOREIRA, [id number] CLINICAL INDICATION: Laryngeal cancer status post chemoradiation therapy, assess treatmentresponse. Hypothyroidism. TECHNIQUE: Helical images were obtained through the neck, and reconstructed in theaxial plane on bone and soft tissue algorithm at multiple slicethicknesses. Coronal and sagittal reformatted images were created. 100 mLof Omnipaque 300 were administered intravenously. Total DLP (Dose-Length Product): 1491 mGy.cm. Please note: The reportedvalue represents the total of one or more individual components during theCT acquisition on this date and at this time, and as such, the same valuemay appear in more than one CT report depending on theinterpreting/reporting physicians. COMPARISON: Neck CT 06/09/2022 FINDINGS: Diagnostic Quality: Adequate. Soft Tissues: Extensive postsurgical changes are noted including totallaryngectomy, tracheostomy with indwelling endotracheal tube,transesophageal puncture, partial thyroidectomy, flap reconstruction, andbilateral neck antonio dissection. There is effacement of fat planes andscattered surgical clips on both sides of the neck. Subcutaneousreticulation in the anterior neck suggests radiation effects. Lymph Nodes: Bilateral neck antonio dissections. No significant cervicaladenopathy is present. Pharynx/Larynx: Post resection of the right oropharynx. Supraglotticswelling suggests radiation effects. No definite pharyngeal or laryngealmasses are present. Oral Cavity: Fatty conversion and posterior retropulsion of the righttongue indicates denervation atrophy. No large masses are present withinthe oral cavity within the limitations of the study. Parapharyngeal Space: No lesions are present within the parapharyngealspace. Salivary Glands: The parotid and submandibular glands are normal in sizewithout definite focal lesions. Thyroid: Partial thyroidectomy. No focal lesions are present. Orbits/Paranasal Sinuses/Skull Base: No orbital masses are present withinthe visualized portions of the orbits. The visualized paranasal sinusesand mastoids are grossly clear. Within the skull base, there is no focallesion or destructive process. Bones/Spine: There is intermittent ossification of the posteriorlongitudinal ligament, spanning levels C2 through C6, causing moderatespinal canal stenosis at level C3. No bony destructive lesion ispresent. Thoracic Inlet and Lung Apices: Within the limitations of the study, nolarge masses are present at the thoracic inlet. Visualized upper lungsreveal linear atelectasis in the right apex. Please see the separatereport for the chest CT scan for discussion of intrathoracic findings. IMPRESSION: Extensive postsurgical and radiation effects as detailed above. No tumorrecurrence or cervical adenopathy. CRITICAL RESULT: No. COMMUNICATION: Per this written report. Dictated by Mya Rodriguez MD on 09/08/2022 4:08 PM Signed by Mya Rodriguez MD on 09/08/2022 9:08 PM Bailey Ellis MD IMG CT PROCEDURES Final Resu lt * CT Chest w IV Contrast (09/08/2022 2:10 PM EDT) Anatomical Region Laterality Modality Chest Computed Tomogra phy Impressions 09/08/2022 3:41 PM EDT No evidence of neoplastic progression in the chest or abdomen. CRITICAL RESULT: No. COMMUNICATION: Per this written report. Dictated by Louie Liu MD on 09/08/2022 3:36 PM Signed by Louie Liu MD on 09/08/2022 3:41 PM Narrative 09/08/2022 3:41 PM EDT Exam/Procedure: CT CHEST W IV CONTRAST ordered by BAILEY ELLIS, [id number] CLINICAL INDICATION: Laryngeal cancer. TECHNIQUE: Multiple CT helical images were obtained from thoracic inlet through iliac crests with administration of IV contrast. 100 ??mL of Omnipaque-300 were administered intravenously. Total DLP (Dose-Length Product): 1491.43 mGy.cm. Please note: The reported value represents the total of one or more individual components during the CT acquisition on this date and at this time, and as such, the same value may appear in more than one CT report depending on the interpreting/reporting physicians. COMPARISON: June 09, 2022 FINDINGS: Mediastinum and Pleura: Partially visualized laryngectomy. Tracheostomy in place. No enlarging mediastinal or hilar adenopathy. No pleural effusion. Lungs: Some anterior right lung fibrosis is mild is stable. Right apical fibrosis and prior wedge resection is unchanged. Left lower lobe reticulation and right basal reticulation are stable. Abdomen: No measurable hepatic lesion currently identified. No enlarging upper abdominal adenopathy. Atherosclerosis of the aorta. Musculoskeletal: No suspicious lytic or sclerotic lesion. Procedure Note Louie Liu MD - 09/08/2022 Exam/Procedure: CT CHEST W IV CONTRAST ordered by BAILEY ELLIS,[id number] CLINICAL INDICATION: Laryngeal cancer. TECHNIQUE: Multiple CT helical images were obtained from thoracic inlet through iliaccrests with administration of IV contrast. 100 mL of Omnipaque-300 wereadministered intravenously. Total DLP (Dose-Length Product): 1491.43 mGy.cm. Please note: The reportedvalue represents the total of one or more individual components during theCT acquisition on this date and at this time, and as such, the same valuemay appear in more than one CT report depending on theinterpreting/reporting physicians. COMPARISON: June 09, 2022 FINDINGS: Mediastinum and Pleura: Partially visualized laryngectomy. Tracheostomy inplace. No enlarging mediastinal or hilar adenopathy. No pleuraleffusion. Lungs: Some anterior right lung fibrosis is mild is stable. Right apicalfibrosis and prior wedge resection is unchanged. Left lower lobereticulation and right basal reticulation are stable. Abdomen: No measurable hepatic lesion currently identified. No enlargingupper abdominal adenopathy. Atherosclerosis of the aorta. Musculoskeletal: No suspicious lytic or sclerotic lesion. IMPRESSION: No evidence of neoplastic progression in the chest or abdomen. CRITICAL RESULT: No. COMMUNICATION: Per this written report. 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, unspecified site documented in this encounter Administered Medications Inactive Administered Medications - up to 3 most recent administrations Medication Order MAR Action Action Date Dose Rate Site heparin flush (porcine) 100 UNIT/ML injection 500 Units 500 Units, Intracatheter, Once as needed, 1 dose, Starting on 09/08/22 at 1342, Until 09/08/22 at 1401, Routine, Intraprocedure, line care Given 09/08/2022 2:01 PM EDT 500 Units iohexol (OMNIPaque) 300 MG/ML injection 100 mL 100 mL, Intravenous, Once in imaging, 1 dose, Starting on 09/08/22 at 1325, Until 09/08/22 at 1410, Routine, Imaging Protocol Orders Given 09/08/2022 2:10 PM EDT 100 mL iohexol (OMNIPaque) 9 MG/ML oral contrast 500 mL 500 mL, Oral, Once in imaging, 1 dose, Starting on 09/08/22 at 1325, Until 09/08/22 at 1410, Routine, Imaging Protocol Orders Given 09/08/2022 2:10 PM EDT 500 mL documented in this encounter Additional Health Concerns Assessment Noted Time A fall risk assessment has been complete d for the patient 06/11/2022 10:00 AM EST A Body Mass Index follow-up plan has been documented for the patient 07/15/2022 1:51 PM EST documented as of this encounter Care Teams [employer] Relationship Specialty Start Date End Date Michele Wright MD [address] [place] [address] PCP - General 10/11/20 Edgar Szymanski MD [address] [facility] [address] [place] [address] Radiation Oncologist Radiation Therapy 03/14/20 4 [facility]un [facility]st [facility] [address] [facility] [address] [place] [address] Surgeon Neurosurgery 02/24/21 Bailey Ellis MD [address] [facility] [address] [place] [address] Medical Oncologist Medical Oncology 06/13/21 documented as of this encounter
--- OUTSIDE RECORDS SUMMARY | 2024-05-03 13:37 | XMS_ITS | Encounter Summary ---
Author Organization [facility] Address [address] [place] [address] Care Team Providers Care Cleaning Crew Member Name Role Phone Michele Wright MD Primary Care Provider + [phone] Edgar Szymanski MD Unavailable [phone] Shun Hurst MD Unavailable [phone] Divine Carpenter MD Unavailable [phone] Reason for Referral * Imaging (Routine) - Closed Specialty Diagnoses / Procedures Referred By Contac t Referred To Contact Radiology Diagnoses Cancer of larynx (CMS/HCC) Malignant neoplasm of colon, unspecified part of colon (CMS/HCC) Procedures CT Abdomen Pelvis w IV Contrast Divine Carpenter MD [address] [address] Phone: tel: fax: Referral ID Status Reason Start Date Expiration Date Visits Re quested Visits Authorized [id number] Closed 09/09/2022 03/10/2024 1 1 * Imaging (Routine) - Closed Specialty Diagnoses / Procedures Referred By Contac t Referred To Contact Radiology Diagnoses Cancer of larynx (CMS/HCC) Procedures CT Soft Tissue Neck w IV Contrast Divine Carpenter MD [address] [facility] [address] [place] [address] Phone: tel: fax: Referral ID Status Reason Start Date Expiration Date Visits Re quested Visits Authorized [id number] Closed 09/09/2022 03/10/2024 1 1 * Imaging (Routine) - Closed Specialty Diagnoses / Procedures Referred By Contac t Referred To Contact Radiology Diagnoses 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) Procedures CT Chest w IV Contrast Divine Carpenter MD [address] Diane Zuniga [address] [address] Phone: tel: fax: Referral ID Status Reason Start Date Expiration Date Visits Re quested Visits Authorized [id number] Closed 09/09/2022 03/10/2024 1 1 Reason for Visit * Imaging (Routine) - Closed Specialty Diagnoses / Procedures Referred By Contac t Referred To Contact Radiology Diagnoses Cancer of larynx (CMS/HCC) Malignant neoplasm of colon, unspecified part of colon (CMS/HCC) Procedures CT Abdomen Pelvis w IV Contrast Divine Carpenter MD [address] Diane Zuniga [address] [address] Phone: tel: fax: Referral ID Status Reason Start Date Expiration Date Visits Re quested Visits Authorized [id number] Closed 09/09/2022 03/10/2024 1 1 Encounter Details Date Type Department Care Team (Latest Contact Info) Description 12/04/2022 11:38 AM EDT - 12/04/2022 11:59 PM EDT Hospital Encounter [facility] [address] [place] [address] Cancer of larynx (CMS/HCC); Secondary malignant neoplasm of chest wall (CMS/HCC); Malignant neoplasm of colon, unspecified part of colon (CMS/HCC) Discharge Disposition: Home or Self Care [...] Everywhere. * Contrast Imaging Discharge Instructions ([place]) ([place]) documented in this encounter Medications at Time [...] [facility] Head, Neck & Respiratory [address] [facility], [address]nd [place] [address] 07/17/2024 1:30 PM EST Appointment [facility] [address] [place] [address] 07/20/2024 2:50 PM EST Office Visit [facility] Head, Neck & Respiratory [address] [facility], [address] [place] [address] Divine Carpenter MD [address] [facility] [address] [place] [address] documented as of this encounter Procedures Procedure Name Priority Date/Time Associated Diagnosis Comments CT ABDOMEN PELVIS W IV CONTRAST Routine 12/04/2022 12:54 PM EDT Cancer of larynx (CMS/HCC) Malignant neoplasm of colon, unspecified part of colon (CMS/HCC) CT CHEST W IV CONTRAST Routine 12/04/2022 12:54 PM EDT 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) CT SOFT TISSUE NECK W IV CONTRAST Routine 12/04/2022 12:54 PM EDT Cancer of larynx (CMS/HCC) POCT CREATININE ISTAT UNSOLICITED RESULTS Routine 12/04/2022 12:01 PM EDT documented in this encounter Results * CT Abdomen Pelvis w IV Contrast (12/04/2022 12:54 PM EDT) Anatomical Region Laterality Modality Abdomen, Pelvis Computed Tomogra phy Impressions 12/04/2022 7:27 PM EDT No evidence of disease progression within the chest, abdomen, or pelvis. CRITICAL RESULT: No. COMMUNICATION: Per this written report. By electronically signing this report, I, the attending physician, attest that I have personally reviewed the images/data for the above examination(s) and agree with the final edited report. Drafted by Jamie West D.O. on 12/04/2022 1:38 PM Final report signed by Jeniffer Nichols MD on 12/04/2022 7:27 PM Narrative 12/04/2022 7:27 PM EDT CLINICAL INDICATION: metastatic disease assessment TECHNIQUE: Multiple CT helical images were obtained from thoracic inlet through pubic symphysis with administration of IV contrast. 100 ??mL of Omnipaque-300 were administered intravenously. ?? Total DLP (Dose-Length Product): 1469.85 mGy.cm. Please note: The reported value represents the total of one or more individual components during the CT acquisition on this date and at this time, and as such, the same value may appear in more than one CT report depending on the interpreting/reporting physicians. COMPARISON: CT chest abdomen and pelvis September 08, 2022 FINDINGS: Mediastinum and Pleura: No enlarging mediastinal or hilar lymphadenopathy. No pericardial effusion or pleural effusion. Left chest Port-A-Cath with tip terminating in the lower SVC. Post laryngectomy with tracheostomy tube in place. Please see the concurrently performed CT soft tissue neck report for full evaluation Lungs: The central airways are patent. Post right upper lobe wedge resection, no suspicious nodularity along the surgical sutures. Stable small amount of right apical fibrosis and volume loss. No consolidative opacities. Stable left lower lobe basal segment reticulation along with groundglass and right upper lobe peripheral reticulation. No suspicious pulmonary nodules. Stable subpleural lymph node along the minor fissure. Upper Abdomen: Homogeneous enhancement of the liver. No suspicious focal liver lesion. Unremarkable gallbladder. Mild splenomegaly measuring 13.6 cm. No focal splenic lesions. Unremarkable pancreas. The bilateral adrenal glands are morphologically unremarkable. No renal masses. No suspicious pelvic masses. Normal size and caliber of the large and small bowel. No abdominal or pelvic lymphadenopathy. Musculoskeletal: No suspicious osseous lesions. Procedure Note Jeniffer Nichols MD - 12/04/2022 CLINICAL INDICATION: metastatic disease assessment TECHNIQUE: Multiple CT helical images were obtained from thoracic inlet through pubicsymphysis with administration of IV contrast. 100 mL of Omnipaque-300were administered intravenously. Total DLP (Dose-Length Product): 1469.85 mGy.cm. Please note: The reportedvalue represents the total of one or more individual components during theCT acquisition on this date and at this time, and as such, the same valuemay appear in more than one CT report depending on theinterpreting/reporting physicians. COMPARISON: CT chest abdomen and pelvis September 08, 2022 FINDINGS: Mediastinum and Pleura: No enlarging mediastinal or hilar lymphadenopathy.No pericardial effusion or pleural effusion. Left chest Port-A-Cath withtip terminating in the lower SVC. Post laryngectomy with tracheostomy tubein place. Please see the concurrently performed CT soft tissue neck reportfor full evaluation Lungs: The central airways are patent. Post right upper lobe wedgeresection, no suspicious nodularity along the surgical sutures. Stablesmall amount of right apical fibrosis and volume loss. No consolidativeopacities. Stable left lower lobe basal segment reticulation along withgroundglass and right upper lobe peripheral reticulation. No suspiciouspulmonary nodules. Stable subpleural lymph node along the minor fissure. Upper Abdomen: Homogeneous enhancement of the liver. No suspicious focalliver lesion. Unremarkable gallbladder. Mild splenomegaly measuring 13.6cm. No focal splenic lesions. Unremarkable pancreas. The bilateral adrenalglands are morphologically unremarkable. No renal masses. No suspiciouspelvic masses. Normal size and caliber of the large and small bowel. Noabdominal or pelvic lymphadenopathy. Musculoskeletal: No suspicious osseous lesions. IMPRESSION: No evidence of disease progression within the chest, abdomen, or pelvis. CRITICAL RESULT: No. COMMUNICATION: Per this written report. By electronically signing this report, I, the attending physician, attjovanythat I have personally reviewed the images/data for the aboveexamination(s) and agree with the final edited report. Drafted by Jamie West D.O. on 12/04/2022 1:38 PM Final report signed by Jeniffer Nichols MD on 12/04/2022 7:27 PM us Divine Carpenter MD IMG CT PROCEDURES Final Resu lt * CT Soft Tissue Neck w IV Contrast (12/04/2022 12:54 PM EDT) Anatomical Region Laterality Modality Neck Computed Tomogra phy Impressions 12/04/2022 8:44 PM EDT Unchanged since the previous examination. No recurrence. Elias Washburn M.D. This report has been electronically signed and verified by the Radiologist whose name is printed above. DD: ??12/04/2022/DT: ??12/04/2022 This report contains privileged and confidential information [...] error, please notify the sender immediately at [phone] and permanently delete the original report and destroy any copies or printouts. Narrative 12/04/2022 8:44 PM EDT [facility] ? - Phone Outpatient NAME: Anibal Barreto ?? DATE OF EXAM: 12/04/2022 Patient No: ??[id number] Physician: ??Lynette Date of : ??1965 Past Medical/Surgical History (entered by technologist): ?? Symptoms/Reason For Exam (entered by technologist): ??Cancer of larynx Tech Notes (entered by technologist): iohexol (OMNIPaque) 9 MG/ML oral contrast 500 mL Additional History (per [facility]): Automated exposure control was used for radiation dose reduction. Total DLP 1470 mGy-cm Technique: Axial CT examination of the neck with intravenous contrast. Multiplanar reformats were generated. Comparison: CT neck 08-Sep-22. FINDINGS: Unchanged since the previous examination. Tracheostomy, laryngectomy, flap reconstruction, neck dissection. No neck mass or significant cervical adenopathy. Tracheostomy tube is in good position. Left- sided central venous catheter, traverses the superior vena cava, tip not seen. Atrophy of the right side of the tongue. Visualized brain and orbits appear normal. No suspicious bone lesions. 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 Procedure Note Elias Washburn MD - 12/04/2022 [facility] - Phone Outpatient NAME: Anibal Barreto DATE OF EXAM: 12/04/2022 Patient No: [id number] Physician: Lynette Date of : 1965 Past Medical/Surgical History (entered by technologist): Symptoms/Reason For Exam (entered by technologist): Cancer of larynx Tech Notes (entered by technologist): iohexol (OMNIPaque) 9 MG/ML oralcontrast 500 mL Additional History (per [facility]): Automated exposure control was used for radiation dose reduction. TotalDLP 1470 mGy-cm Technique: Axial CT examination of the neck with intravenous contrast.Multiplanar reformats were generated. Comparison: CT neck 08-Sep-22. FINDINGS: Unchanged since the previous examination. Tracheostomy, laryngectomy, flap reconstruction, neck dissection. No neckmass or significant cervical adenopathy. Tracheostomy tube is in goodposition. Left- sided central venous catheter, traverses the superior venacava, tip not seen. Atrophy of the right side of the tongue. Visualizedbrain and orbits appear normal. No suspicious bone lesions. Degenerativechanges of the cervical spine; finding suggestive of diffuse idiopathicskeletal hyperostosis, causing moderate central stenosis at C3. IMPRESSION: Unchanged since the previous examination. No [...] in error, pleasenotify the sender immediately at [phone] and permanently delete theoriginal report and destroy any copies or printouts. us Divine Carpenter MD IMG CT PROCEDURES Final Resu lt * CT Chest w IV Contrast (12/04/2022 12:54 PM EDT) Anatomical Region Laterality Modality Chest Computed Tomogra phy Impressions 12/04/2022 7:27 PM EDT No evidence of disease progression within the chest, abdomen, or pelvis. CRITICAL RESULT: No. COMMUNICATION: Per this written report. By electronically signing this report, I, the attending physician, attest that I have personally reviewed the images/data for the above examination(s) and agree with the final edited report. Drafted by Jamie West D.O. on 12/04/2022 1:38 PM Final report signed by Jenfifer Nichols MD on 12/04/2022 7:27 PM Narrative 12/04/2022 7:27 PM EDT CLINICAL INDICATION: metastatic disease assessment TECHNIQUE: Multiple CT helical images were obtained from thoracic inlet through pubic symphysis with administration of IV contrast. 100 ??mL of Omnipaque-300 were administered intravenously. ?? Total DLP (Dose-Length Product): 1469.85 mGy.cm. Please note: The reported value represents the total of one or more individual components during the CT acquisition on this date and at this time, and as such, the same value may appear in more than one CT report depending on the interpreting/reporting physicians. COMPARISON: CT chest abdomen and pelvis September 08, 2022 FINDINGS: Mediastinum and Pleura: No enlarging mediastinal or hilar lymphadenopathy. No pericardial effusion or pleural effusion. Left chest Port-A-Cath with tip terminating in the lower SVC. Post laryngectomy with tracheostomy tube in place. Please see the concurrently performed CT soft tissue neck report for full evaluation Lungs: The central airways are patent. Post right upper lobe wedge resection, no suspicious nodularity along the surgical sutures. Stable small amount of right apical fibrosis and volume loss. No consolidative opacities. Stable left lower lobe basal segment reticulation along with groundglass and right upper lobe peripheral reticulation. No suspicious pulmonary nodules. Stable subpleural lymph node along the minor fissure. Upper Abdomen: Homogeneous enhancement of the liver. No suspicious focal liver lesion. Unremarkable gallbladder. Mild splenomegaly measuring 13.6 cm. No focal splenic lesions. Unremarkable pancreas. The bilateral adrenal glands are morphologically unremarkable. No renal masses. No suspicious pelvic masses. Normal size and caliber of the large and small bowel. No abdominal or pelvic lymphadenopathy. Musculoskeletal: No suspicious osseous lesions. Procedure Note Jeniffer Nichols MD - 12/04/2022 CLINICAL INDICATION: metastatic disease assessment TECHNIQUE: Multiple CT helical images were obtained from thoracic inlet through pubicsymphysis with administration of IV contrast. 100 mL of Omnipaque-300were administered intravenously. Total DLP (Dose-Length Product): 1469.85 mGy.cm. Please note: The reportedvalue represents the total of one or more individual components during theCT acquisition on this date and at this time, and as such, the same valuemay appear in more than one CT report depending on theinterpreting/reporting physicians. COMPARISON: CT chest abdomen and pelvis September 08, 2022 FINDINGS: Mediastinum and Pleura: No enlarging mediastinal or hilar lymphadenopathy.No pericardial effusion or pleural effusion. Left chest Port-A-Cath withtip terminating in the lower SVC. Post laryngectomy with tracheostomy tubein place. Please see the concurrently performed CT soft tissue neck reportfor full evaluation Lungs: The central airways are patent. Post right upper lobe wedgeresection, no suspicious nodularity along the surgical sutures. Stablesmall amount of right apical fibrosis and volume loss. No consolidativeopacities. Stable left lower lobe basal segment reticulation along withgroundglass and right upper lobe peripheral reticulation. No suspiciouspulmonary nodules. Stable subpleural lymph node along the minor fissure. Upper Abdomen: Homogeneous enhancement of the liver. No suspicious focalliver lesion. Unremarkable gallbladder. Mild splenomegaly measuring 13.6cm. No focal splenic lesions. Unremarkable pancreas. The bilateral adrenalglands are morphologically unremarkable. No renal masses. No suspiciouspelvic masses. Normal size and caliber of the large and small bowel. Noabdominal or pelvic lymphadenopathy. Musculoskeletal: No suspicious osseous lesions. IMPRESSION: No evidence of disease progression within the chest, abdomen, or pelvis. CRITICAL RESULT: No. COMMUNICATION: Per this written report. By electronically signing this report, I, the attending physician, ten I have personally reviewed the images/data for the aboveexamination(s) and agree with the final edited report. Drafted by Jamie West D.O. on 12/04/2022 1:38 PM Final report signed by Jeniffer Nichols MD on 12/04/2022 7:27 PM us Divine Carpenter MD IMG CT PROCEDURES Final Resu lt * POCT creatinine (12/04/2022 12:01 PM EDT) Creatinine, Point of Care 0.8 0.8 - 1.3 mg/dL 12/04/2022 12:04 PM EDT [facility] POCT eGFR 104 mL/min/1. 73m*2 12/04/2022 12:04 PM EDT [facility] Prepress Supervisor ID Oma Guzman 12/04/2022 12:04 PM EDT [facility] Device ID [id number] 12/04/2022 12:04 PM EDT [facility] Comment 12/04/2022 12:04 PM EDT [facility] Comment: Testing performed on i-STAT at the point of care. Reported eGFRcr in mL/min/1.73m2 is based the CKD-EPI 2021 equation that does not use a race coefficient. Effective 12/24/21 our laboratory changed the eGFR calculation to the CKD-EPI 2021 equation from the previously reported eGFR, based on the MDRD equation. For comparisons between the two equations, please see laboratory website: [email or web address] Venous blood specimen / Unknown 12/04/2022 12:01 PM EDT 12/04/2022 12:04 PM EDT us Generic Provider Poct LAB POINT OF CARE TEST DOCKED DEVICE UNSOLICITED RESULTS Final Result Performing Organization Address City/State/[facility] Co de Phone Number [facility] [address] [place] [address] documented in this encounter Visit Diagnoses Diagnosis 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, unspecified site Secondary malignant neoplasm of chest wall (CMS/HCC) Malignant neoplasm of colon, unspecified part of colon (CMS/HCC) documented in this encounter Administered Medications Inactive Administered Medications - up to 3 most recent administrations Medication Order MAR Action Action Date Dose Rate Site heparin flush (porcine) 100 UNIT/ML injection 500 Units 500 Units, Intracatheter, Once as needed, 1 dose, Starting on Wed12/04/22 at 1203, Until Wed12/04/22 at 1251, Routine, Intraprocedure, line care Given 12/04/2022 12:51 PM EDT 500 Units iohexol (OMNIPaque) 300 MG/ML injection 100 mL 100 mL, Intravenous, Once in imaging, 1 dose, Starting on Wed12/04/22 at 1150, Until Wed12/04/22 at 1242, Routine, Imaging Protocol Orders Given 12/04/2022 12:42 PM EDT 100 mL iohexol (OMNIPaque) 9 MG/ML oral contrast 500 mL 500 mL, Oral, Once in imaging, 1 dose, Starting on Wed12/04/22 at 1150, Until Wed12/04/22 at 1242, Routine, Imaging Protocol Orders Given 12/04/2022 12:42 PM EDT 500 mL documented in this encounter Additional Health Concerns Assessment Noted Time A fall risk assessment has been complete d for the patient 10/01/2022 8:56 AM EDT A Body Mass Index follow-up plan has been documented for the patient 09/10/2022 11:09 AM EDT documented as of this encounter Care Teams Cleaning Crew Member Relationship Specialty Start Date End Date Michele Wright MD [address] [place] [address] PCP - General 10/11/20 Edgar Szymanski MD [address] [facility] [address] [place] [address] Radiation Oncologist Radiation Therapy 03/14/20 4 Shun Hurst MD [address] [place] [address] Surgeon Neurosurgery 02/24/21 Divine Carpenter MD [address] [facility] [address] [place] [address] Medical Oncologist Medical Oncology 06/13/21 documented as of this encounter
--- OUTSIDE RECORDS SUMMARY | 2024-05-03 13:37 | XMS_ITS | Encounter Summary ---
Author Organization [facility] Address [address] [place], [place] [id number] Care Team Providers Care Research And Development Specialist Name Role Phone Michele Wright MD Primary Care Provider [phone] Edgar Szymanski MD Unavailable [phone] Shun Hurst MD Unavailable [phone] Divine Carpenter MD Unavailable [phone] Encounter Details Date Type Department Care Team (Late Contact Info) Description 12/07/2022 Orders Only [facility] Head, Neck & Respiratory [address] [facility], [address]nd [place] [address] Ambika Ambriz RN AMB-HEAD NECK AND RESPIRATORY [...] [facility] CC Head, Neck & Respiratory [address] [facility], [address]nd [place] [address] 07/17/2024 1:30 PM EST Appointment [facility] [address] [place] [address] 07/20/2024 2:50 PM EST Office Visit [facility] Head, Neck & Respiratory [address] [facility], [address] [place] [phone] Divine Carpenter MD [address] [facility] Diane Zuniga [facility] [address] [place] [address] documented as of this encounter Visit Diagnoses Not on filedocumented in this encounter Additional Health Concerns Assessment Noted Time A fall risk assessment has been complete d for the patient 12/07/2022 10:46 AM EDT A Body Mass Index follow-up plan has been documented for the patient 09/10/2022 11:09 AM EDT documented as of this encounter Care Teams Research And Development Specialist Relationship Specialty Start Date End Date Michele Wright MD [address] [place] [address] PCP - General 10/11/20 Edgar Szymanski MD [address] [facility] [address] [place] [phone] Radiation Oncologist Radiation Therapy 03/14/20 4 Shun Hurst MD [address] [facility] [address] [place] [address] Surgeon Neurosurgery 02/24/21 Divine Carpenter MD [address] [facility] Diane Zuniga [facility] [address] [place] [phone] Medical Oncologist Medical Oncology 06/13/21 documented as of this encounter
--- OUTSIDE RECORDS SUMMARY | 2024-05-03 13:37 | XMS_ITS | Encounter Summary ---
Author Organization [facility] Address [address] [place] [address] Care Team Providers Care Strategic Solutions Consultant Name Role Phone Michele Wright MD Primary Care Provider + [phone] Edgar Szymanski MD Unavailable [phone] Shun Hurst MD Unavailable [phone] Divine Carpenter MD Unavailable [phone] Reason for Referral * Imaging (Routine) - Closed Specialty Diagnoses / Procedures Referred By Contac t Referred To Contact Radiology Diagnoses Cancer of larynx (CMS/HCC) Malignant neoplasm of colon, unspecified part of colon (CMS/HCC) Procedures CT Abdomen Pelvis w IV Contrast Divine Carpenter MD [address] [address] Phone: tel: fax: Referral ID Status Reason Start Date Expiration Date Visits Re quested Visits Authorized [id number] Closed 09/09/2022 03/10/2024 1 1 * Imaging (Routine) - Closed Specialty Diagnoses / Procedures Referred By Contac t Referred To Contact Radiology Diagnoses Cancer of larynx (CMS/HCC) Procedures CT Soft Tissue Neck w IV Contrast Divine Carpenter MD [address] [facility] [address] [place] [address] Phone: tel: fax: Referral ID Status Reason Start Date Expiration Date Visits Re quested Visits Authorized [id number] Closed 09/09/2022 03/10/2024 1 1 * Imaging (Routine) - Closed Specialty Diagnoses / Procedures Referred By Contac t Referred To Contact Radiology Diagnoses 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) Procedures CT Chest w IV Contrast Divine Carpenter MD [address] [place] [address] [address] Phone: tel: fax: Referral ID Status Reason Start Date Expiration Date Visits Re quested Visits Authorized [id number] Closed 09/09/2022 03/10/2024 1 1 Reason for Visit * Reason Comments Follow-up Encounter Details Date Type Department Care Team ([facility] Contact Info) Description 09/10/2022 9:50 AM EDT Office Visit Pav CC Head, Neck & Respiratory [address] [facility], [address]nd [place] [address] Divine Carpenter MD [address] [place] [address] [address] Cancer of larynx (CMS/HCC) (Primary Dx); Secondary malignant neoplasm of chest wall (CMS/HCC); Malignant neoplasm of colon, unspecified part of colon (CMS/HCC); Neoplasm related pain; 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 No / Unsure 09/10/2022 9:13 AM EDT documented as of this encounter Last Filed Vital Signs Vital Sign Reading Time Taken Comments Blood Pressure 136/77 09/10/2022 9:41 AM EDT Pulse 71 09/10/2022 9:41 AM EDT Temperature 37.1 ??C (98.7 ??F) 09/10/2022 9:41 AM ED T Respiratory Rate 16 09/10/2022 9:41 AM EDT Oxygen Saturation 94% 09/10/2022 9:41 AM EDT Inhaled Oxygen Concentration - - Weight 104 kg (230 lb 6.1 oz) 09/10/2022 9:41 AM EDT Height 176 cm (5' 9.29 ) 09/10/2022 9:41 AM EDT Body Mass Index 33.74 09/10/2022 9:41 AM EDT documented in this encounter Miscellaneous Notes * Progress Notes - Divine Carpenter MD - 09/10/2022 9:50 AM EDT MEDICAL ONCOLOGY FOLLOW-UP NOTE Patient Information Patient Name: Anibal Barreto Date of : 1965 REFERRING PHYSICIAN: Michele Wright MD Encounter Date: 09/10/2022 Treatment Diagnosis: Cancer Staging Cancer of larynx (CMS/HCC) Staging form: Larynx - Glottis, AJCC 8th Edition - Clinical stage from 02/19/2017: Stage ZULAY (cT3, cN2c, cM0) - Signed by Divine Carpenter MD on 10/14/2020 - Pathologic stage from 03/22/2018: Stage III (rpT3, pN0, cM0) - Signed by Divine Carpenter MD on 10/14/2020 - Pathologic stage from 11/21/2019: Stage IVC (rpTX, pNX, pM1) - Signed by Divine Carpenter MD on 10/14/2020 History of Present Illness: Anibal Barreto is a 57 y.o. male who returns for followup of his Cancer Staging Cancer of larynx (CMS/HCC), Staging form: Larynx - Glottis, AJCC 8th Edition, Clinical: Stage ZULAY Cancer of larynx (CMS/HCC), Staging form: Larynx - Glottis, AJCC 8th Edition, Pathologic: Stage III Cancer of larynx (CMS/HCC), Staging form: Larynx - Glottis, AJCC 8th Edition, Pathologic: Stage IVC. he returns for followup and for reassessment of response to current therapy / followup after treatment of head and neck cancer / followup after treatment of lung cancer} Oncology History Overview Note Mr Anibal Barreto [...] with adenopathy in levels 2 through 4 [id number] 3 PET/CT scan dated 02/19/2017 showed an intensely hypermetabolic epiglottis and mucosa extending to the true vocal cords, slightly asymmetric involving the right pyriform sinus and aryepiglottic fold with 27 4 mSUV along with intensely hypermetabolic bilateral cervical lymph nodes 4 A biopsy performed here at [facility] during direct examination on 03/03/2017 showed 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 He then had a trachesostomy as well a PEG tube placed 5 S/p Induction carboplatin and taxol x 2 cycles and then concurrent cetuximab with radiation 6 He had recurrent disease in 2018 and underwent total laryngectomy with limited neck dissection with ALT free flap, [id number] 7 Subsequent followup scans were negative for [...] Cancer of larynx ([facility]) 02/19/2017 Cancer Staged Staging form: Larynx - Glottis, AJCC 8th Edition, Clinical stage from 02/19/2017: Stage ZULAY (cT3, cN2c, cM0) - Signed by Divine Carpenter MD on 10/14/2020 03/18/2017 Initial Diagnosis Cancer of larynx ([facility]/HCC) 03/22/2018 Cancer Staged Staging form: Larynx - Glottis, AJCC 8th Edition, Pathologic stage from 03/22/2018: Stage III (rpT3, pN0, cM0) - Signed by Divine Carpenter MD on 10/14/2020 11/21/2019 Cancer Staged Staging form: Larynx - Glottis, AJCC 8th Edition, Pathologic stage from 11/21/2019: Stage IVC (rpTX,pNX, pM1) - Signed by Divine Carpenter MD on 10/14/2020 03/14/2020 - 11/24/2020 Research Study Participant [id number]: Pembrolizumab Every 42 Days Every 84 Days Plan Provider: Divine Carpenter MD Treatment goal: Palliative Line of treatment: Second Line Associated studies: Priming Immunotherapy in Advanced Disease with Radiation 11/26/2020 - Radiation Therapy The patient saw No care field marketing team leader to display for radiation treatment. This is the current list ofradiation treatment: Radiation Treatments No radiation treatments to show. (Treatments may have been administered in another system.) 12/09/2020 - Radiation Therapy The patient saw No care field marketing team leader to display for radiation treatment. This is the current list ofradiation treatment: Radiation Treatments No radiation treatments to show. (Treatments may have been administered in another system.) 01/27/2021 - 02/17/2021 Chemotherapy cetuximab (Erbitux) 892 [...] malignant neoplasm of chest wall (CMS/HCC) 11/26/2020 - Radiation Therapy The patient saw No care field marketing team leader to display for radiation treatment. This is the current list ofradiation treatment: Radiation Treatments No radiation treatments to show. (Treatments may have been administered in another system.) 11/26/2020 Initial Diagnosis Secondary malignant neoplasm of chest wall (CMS/HCC) 12/09/2020 - Radiation Therapy The patient saw No care field marketing team leader to display for radiation treatment. This is the current list ofradiation treatment: Radiation Treatments No radiation treatments to show. (Treatments may have been administered in another system.) Currently, he denies fever, or chills, nausea, vomiting, but has dry mouth, dysphagia, and some fatigue but he is very active. Problem List and Medications Reviewed in this encounter by me personally No questionnaires on file. Objective Performance Status 0: Fully active, able to carry on all pre-disease performance without restriction Blood pressure 136/77, pulse 71, temperature 37.1 ??C (98.7 ??F), temperature source Oral, resp. rate 16, height 1.76 m (5' 9.29 ), weight 104 kg (230 lb 6.1 oz), SpO2 94 %. EXAM Physical Exam Constitutional: General: He [...] Skin: General: Skin is warm and dry. Neurological: General: No focal deficit present. Mental Status: He is alert and oriented to person, place, and time. Mental status is at baseline. LABORATORIES STUDIES: reviewed by me personally today to monitor for cancer related drug toxicity and treatment related supervisor intermediates toxicity CBC WBC 4.97 Hgb 14.6 PLT 158 HCT 45.0 Lab Results Component Value Date NEUTROABS 3.71 09/08/2022 BMPL Na 137 Cl 96 BUN 18 Gluc 93 K 3.8 Co2 30 Creat 0.93 LIVER FUNCTION TESTING Tot Prot 7.7 AST 18 Tot bili 1.0 ALT 9 Alkphos 79 Ca 9.6 Lab Results Component Value Date TSH 0.60 09/08/2022 RADIOLOGY: I independently visualized the recent imaging below based on the patient's symptoms and oncologic history. CT Soft Tissue Neck w IV Contrast Result Date: 09/08/2022 Impression: Extensive postsurgical and radiation effects as detailed above. No tumor recurrence or cervical adenopathy. CRITICAL RESULT: No. COMMUNICATION: Per this written report. Dictated by Mya Rodriguez MD on 09/08/2022 4:08 PM Signed by Mya Rodriguez MD on 09/08/2022 9:[address] Chest w IV Contrast Result Date: 09/08/2022 Impression: No evidence of neoplastic progression in the chest or abdomen. CRITICAL RESULT: No. COMMUNICATION: Per this written report. Dictated by Louie Liu MD on 09/08/2022 3:36 PM Signed by Louie Liu MD on 09/08/2022 3:[address] Abdomen w IV Contrast Result Date: 09/08/2022 Impression: No evidence of neoplastic progression in the chest or abdomen. CRITICAL RESULT: No. COMMUNICATION: Per this written report. Dictated by Louie Liu MD on 09/08/2022 3:36 PM Signed by Louie Liu MD on 09/08/2022 3:41 PM Assessment/Plan 1. Cancer management : Cancer Staging Cancer of larynx (CMS/HCC), Staging form: Larynx - Glottis, AJCC 8th Edition, Pathologic: Stage IVC (recurrent) -This represents a life threatening illness for which continued cancer treatment is indicated. - I independently visualized and reviewed the current radiology findings with the patient in detailand answered all questions. I agree that this shows great response and NO PROGRESSIVE DISEASE - I reviewed liver and renal function as well as bone marrow function in relationship to this patient's prior chemotherapy. - RTC in 3M with repeat scans. Plan to continue to [...] foresophageal dilation versus peg tube placement 4. Monitoring for worsening hypothyroidism - Continue levothyroxine at current dose This will be periodically monitored as we continue therapy, due to the potential for worsening of thyroid function from radiation and systemic cancer therapy. Divine Carpenter MD Orders Placed This Encounter Procedures CT Chest w IV Contrast CT Soft Tissue Neck w IV Contrast CT Abdomen Pelvis w IV Contrast documented in this encounter Plan of Treatment Upcoming Encounters Date Type Department Care Team ([facility] st Contact Info) Description 07/17/2024 12:30 PM EST Clinical Support Pav CC Head, Neck & Respiratory [address] [facility], [address]nd [place] [address] 07/17/2024 1:30 PM EST Appointment [facility] Radiology [address] [place] [address] 07/20/2024 2:50 PM EST Office Visit Pav CC Head, Neck & Respiratory [address] [facility], [address]nd [place] [address] Divine Carpenter MD [address] [facility] [address] [place] [address] documented as of this encounter Results * CT Abdomen Pelvis [...] Jeniffer Nichols MD on 12/04/2022 7:27 PM Divine Carpenter MD IMG CT PROCEDURES [...] error, please notify the sender immediately at [phone] and permanently delete the original report and destroy any copies or printouts. Narrative 12/04/2022 8:44 PM EDT [facility] Outpatient NAME: Anibal Barreto ?? DATE OF EXAM: 12/04/2022 Patient No: ??[id number] Physician: ??Jayden^Divine Date of : ??1965 Past [...] Procedure Note Elias Washburn MD - 12/04/2022 [facility] Out[facility] NAME: Anibal Barreto DATE OF EXAM: 12/04/2022 Patient No: [id number] Physician: Jayden^Divine Date of : 1965 Past Medical/Surgical History [...] in error, pleasenotify the sender immediately at [phone] and permanently delete theoriginal report and destroy [...] Jeniffer Nichols MD on 12/04/2022 7:27 PM Divine Carpenter MD IMG CT PROCEDURES Final Resu lt documented in this encounter Visit Diagnoses Diagnosis 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, unspecified site Secondary malignant neoplasm of chest wall (CMS/HCC) Malignant neoplasm of colon, unspecified part of colon (CMS/HCC) Neoplasm related pain Neoplasm related pain (acute) (chronic) 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, unspecified site Secondary malignant neoplasm of chest wall (CMS/HCC) Malignant neoplasm of colon, unspecified part of colon (CMS/HCC) documented in this encounter Additional Health Concerns Assessment Noted Time A fall risk assessment has been complete d for the patient 09/10/2022 9:40 AM EDT A Body Mass Index follow-up plan has been documented for the patient 09/10/2022 11:09 AM EDT documented as of this encounter Care Teams Strategic Solutions Consultant Relationship Specialty Start Date End Date Michele Wright MD [address] [place] [address] PCP - General 10/11/20 Edgar Szymanski MD [address] [facility] [address] [place] [address] Radiation Oncologist Radiation Therapy 03/14/20 4 Shun Hurst MD [address] [place] [address] Surgeon Neurosurgery 02/24/21 Divine Carpenter MD [address] [facility] [address] [place] [address] Medical Oncologist Medical Oncology 06/13/21 documented as of this encounter
--- OUTSIDE RECORDS SUMMARY | 2024-05-03 13:37 | XMS_ITS | Encounter Summary ---
Author Organization [facility] Address [address] [place], [place] [address] Care Team Providers Care Burglar Alarm Installer Name Role Phone Michele Wright MD Primary Care Provider + [phone] Edgar Szymanski MD Unavailable [phone] Shun Hurst MD Unavailable [phone] Divine Carpenter MD Unavailable [phone] Reason for Visit * Reason Comments Med Refill Encounter Details Date Type Department Care Team (Late st Contact Info) Description 10/05/2022 Refill Pav CC Head, Neck & Respiratory [address] [facility], [address] [place] [address] Prem Murillo, STATE ASSESSED PROPERTIES DIRECTOR [address] [facility] [address] [place] [address] Social History Tobacco Use Types Packs/Day Years [...] & Respiratory [address] [place] [address] 07/17/2024 1:30 PM EST Appointment [facility] Radiology [address] [place] [address] 07/20/2024 2:50 PM EST Office Visit Pav CC Head, Neck & Respiratory [address] [facility], [address] [place] [address] Divine Carpenter MD [address] [place] [address] documented as of this encounter Visit Diagnoses Not on filedocumented in this encounter Additional Health Concerns Assessment Noted Time A fall risk assessment has been complete d for the patient 10/01/2022 8:56 AM EDT A Body Mass Index follow-up plan has been documented for the patient 09/10/2022 11:09 AM EDT documented as of this encounter Care Teams Burglar Alarm Installer Relationship Specialty Start Date End Date Michele Wright MD [address] [place] [address] PCP - General 10/11/20 Edgar Szymanski MD [address] [place] [address] Radiation Oncologist Radiation Therapy 03/14/20 4 Shun Hurst MD [address] [place] [address] Surgeon Neurosurgery 02/24/21 Divine Carpenter MD [address] [facility] [address] [place] [address] Medical Oncologist Medical Oncology 06/13/21 documented as of this encounter
--- OUTSIDE RECORDS SUMMARY | 2024-05-03 13:37 | XMS_ITS | Encounter Summary ---
Author Organization [facility] Address [address] [place] [address] Care Team Providers Care Polishing Machine Operator Name Role Phone Michele Wright MD Primary Care Provider + [phone] Edgar Szymanski MD Unavailable [phone] Shun Hurst MD Unavailable [phone] Divine Carpenter MD Unavailable [phone] Reason for Visit * Reason Comments Consult Encounter Details Date Type Department Care Team (Late st Contact Info) Description 10/01/2022 8:50 AM EDT Office Visit [facility] [address] [place] [address] Porfirio Viveros MD [address] [address] Cubital tunnel syndrome on right (Primary Dx); Carpal tunnel syndrome, bilateral Social History Tobacco Use Types Packs/Day Years [...] Sign Reading Time Taken Comments Blood Pressure 159/89 10/01/2022 9:00 AM EDT Pulse 68 10/01/2022 9:00 AM EDT Temperature 36.9 ??C (98.4 ??F) 10/01/2022 9:00 AM ED T Respiratory Rate - - Oxygen Saturation 91% 10/01/2022 9:00 AM EDT Inhaled Oxygen Concentration - - Weight 104 kg (230 lb) 10/01/2022 9:00 AM EDT Height 175.3 cm (5' 9 ) 10/01/2022 9:00 AM EDT Body Mass Index 33.97 10/01/2022 9:00 AM EDT documented in this encounter Miscellaneous Notes * Progress Notes - Leonidas Rojas MD - 10/01/2022 8:50 AM EDT ORTHOPEDIC HAND SURGERY NEW PATIENT NOTE Primary Care/Referred by: Michele Wright MD Handedness: Right Chief complaint: Bilateral hand numbness and tingling HPI: Patient is a 57-year-old male who presents to clinic for initial evaluation of bilateral hand numbness and tingling. He has a history of laryngeal cancer status post resection with radiation as well as chemotherapy. States over the past year has had numbness and tingling in bilateral upper extremities right greater than left. He recently underwent EMG nerve conduction study which demonstrateconcern for peripheral compression of the median nerve at the carpal tunnel as well as the cubital tunnel. Right side greater than left. He states he has numbness and tingling as well as nighttime pain that wakes him up at night. He has not attempted any management or bracing. Past medical and surgical history: Laryngeal cancer, chemo, radiation, hypertension, hyperlipidemia, BPH, hypothyroidism, diabetes Family History: Reviewed and found to be non-contributory to HPI/CC. Social History: Tobacco: Former smoker Alcohol: Denies Illicit substance use: Denies Lives in [facility] Occupation/Employment: [] ROS: A 14 point review of systems was conducted and was negative except aforementioned in the HPI, and if present the following systems listed below: PHYSICAL EXAM General: No acute distress, well-nourished, well-developed. Neuro: A/Ox3, Speech is easily understandable, and the patient answers all questions appropriately. Resp: Good effort, symmetric chest expansion, no respiratory difficulty CV: No lymphedema, peripheral perfusion intact, pulses as below Upper Extremity Focused Musculoskeletal Exam: RUE Skin intact, no deformity, soft compartments, no pain with passive stretch, non tender to palpation Motor: 5/5 Biceps/Brach, 5/5 Triceps, 5/5 WF, 5/5 WE, 5/5 FF, 5/5 FE, 5/5 APB, 5/5 EPL, 5/5 FPL Sensory: Median nerve dist: Normal, Ulnar Nerve dist: Normal, Radial nerve dist: normal Vascular: 2+ radial pulse, cap refill <2 sec, digits WWP ROM: Full composite fist, thumb opposes to base of 5th Wrist: F/E 80/70, Prono-supination 80/70 Negative Phalen's Tinel's: Positive at the cubital and carpal tunnel Hyper mobile ulnar nerve LUE Skin intact, no deformity, soft compartments, no pain with passive stretch, non tender to palpation Motor: 5/5 Bic, 5/5 Tri, 5 5 WF, 5/5 WE, 5/5 FF, 5/5 FE, 5/5 Fabd, 5/5 EPL, 5/5 FPL Sensory: Median nerve dist: Normal, Ulnar Nerve dist: Normal, Radial nerve dist: normal Vascular: 2+ radial pulse, cap refill <2 sec, digits WWP ROM: Full composite fist, thumb opposes to base of 5th Wrist: F/E 80/70, Prono-supination 80/70 Negative Tinel's at the cubital and carpal tunnel Imaging Reviewed: EMG nerve conduction study was personally reviewed by myself the attending physician. Conduct she demonstrates conduction delayed consistent with cubital carpal tunnel. Assessment: Patient is a 57-year-old male who presents to clinic for evaluation of bilateral carpaltunnel as well as right-sided cubital tunnel syndrome. Plan: We reviewed his clinical exam as well as diagnosis. Discussed initiating conservative management with bracing. He was provided with cock-up wrist braces for bilateral wrist wear at nighttime. He was also provided with a nighttime elbow extension brace for his right side. Discussed continuing bracing and continue to monitor his symptoms for improvement. It should patient not improve he should return to clinic to discuss further intervention. Patient factors increasing risk (Smoking/Diabetes): diabetes Cosigned by Porfirio Viveros MD at 10/01/2022 4:39 PM EDT Associated attestation - Porfirio Viveros MD - 10/01/2022 4:39 PM EDT I saw and evaluated the patient with the resident/fellow. I discussed the case with the resident/fellow and agree with the findings and plan as documented. documented in this encounter Plan of Treatment Upcoming Encounters Date Type Department Care Team (Late st Contact Info) Description 07/17/2024 12:30 PM EST Clinical Support Pav CC Head, Neck & Respiratory [address] [facility], [address] [place] [address] 07/17/2024 1:30 PM EST Appointment [facility] [address] [place] [address] 07/20/2024 2:50 PM EST Office Visit Pav CC Head, Neck & Respiratory [address] [facility], [address] [place] [address] Divine Carpenter MD [address] [facility] [address] [place] [address] documented as of this encounter Visit Diagnoses Diagnosis Cubital tunnel syndrome on right- Primary Carpal tunnel syndrome, bilateral Carpal tunnel syndrome documented in this encounter Additional Health Concerns Assessment Noted Time A fall risk assessment has been complete d for the patient 10/01/2022 8:56 AM EDT A Body Mass Index follow-up plan has been documented for the patient 09/10/2022 11:09 AM EDT documented as of this encounter Care Teams Polishing Machine Operator Relationship Specialty Start Date End Date Michele Wright MD [address] [place], [place] [id number] PCP - General 10/11/20 Edgar Szymanski MD 800 [facility] [address] [place] [address] Radiation Oncologist Radiation Therapy 03/14/20 4 Shun Hurst MD [address] [place] [address] Surgeon Neurosurgery 02/24/21 Divine Carpenter MD [address] [facility] [address] [facility] [address] [place] [address] Medical Oncologist Medical Oncology 06/13/21 documented as of this encounter
--- OUTSIDE RECORDS SUMMARY | 2024-05-03 13:37 | XMS_ITS | Encounter Summary ---
Author Organization Healthcare Address [address] [place] [address] Care Team Providers Care Computer Numerical Control Programmer Name Role Phone Michele Wright MD Primary Care Provider + [phone] Edgar Szymanski MD Unavailable [phone] Shun Hurst MD Unavailable [phone] Divine Carpenter MD Unavailable [phone] Encounter Details Date Type Department Care Team (Latest Contact Info) Description 09/08/2022 Travel Social History Tobacco Use Types Packs/Day [...] & Respiratory [address] [facility], [address]nd [place] [address] 07/17/2024 1:30 PM EST Appointment P[facility] G Radiology [address] [place] [phone] 07/20/2024 2:50 PM EST Office Visit Pav CC Head, Neck & Respiratory [address] [facility], [address]nd [place] [address] Divine Carpenter MD [address] [facility] Diane Zuniga [facility] [address] [place] [address] documented as of this encounter Visit Diagnoses Not on filedocumented in this encounter Additional Health Concerns Assessment Noted Time A fall risk assessment has been complete d for the patient 06/11/2022 10:00 AM EST A Body Mass Index follow-up plan has been documented for the patient 07/15/2022 1:51 PM EST documented as of this encounter Care Teams Computer Numerical Control Programmer Relationship Specialty Start Date End Date Michele Wright MD [address] [place] [address] PCP - General 10/11/20 Edgar Szymanski MD [address] [facility] [address] [place] [address] Radiation Oncologist Radiation Therapy 03/14/20 4 Shun Hurst MD [address] [facility] [address] [place] [address] Surgeon Neurosurgery 02/24/21 Divine Carpenter MD [address] [facility] Diane Zuniga [facility] [address] [place] [address] Medical Oncologist Medical Oncology 06/13/21 documented as of this encounter
--- OUTSIDE RECORDS SUMMARY | 2024-05-03 13:37 | XMS_ITS | Encounter Summary ---
Author Organization [facility] Address [address] [place], [place] [id number] Care Team Providers Care Commercial Photographer Name Role Phone Michele Wright MD Primary Care Provider + [phone] Edgar Szymanski MD Unavailable [phone] Shun Hurst MD Unavailable [phone] Divine Carpenter MD Unavailable [phone] Encounter Details Date Type Department Care Team (Late st Contact Info) Description 09/10/2022 10:15 AM EDT Office Visit PAV CC Voice [address], [address] [place] [address] Earnestine Billy, [facility] [address] [facility] [address] [place], [place] [id number] Aphonia (Primary Dx); History of laryngeal cancer [...] Recorded In the last 10 days, have jn nunez been in contact with someone who was confirmed or suspected to have Coronavirus/COVID-19? No / Unsure 09/10/2022 9:13 AM EDT documented as of this encounter Miscellaneous Notes * Progress Notes - [place] Earnestine Jose, [facility] - 09/10/2022 10:15 AM EDT [facility] Head[facility] Neck [facility] Res[facility] Tracheoesophageal Puncture Assessment/Treatment Service Date: 09/10/2022 Referring Provider: Dr. Divine Carpenter Total assessment/treatment time: 30 minutes Treatment Diagnosis: R.49. Aphonia and C32: Laryngeal cancer History: Mr. 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 His prosthesis was last changed on 07/15/2022 using a 17Fr./10mm [employer] Hackett. Patient complaint: Mr. Barreto reports his prosthesis has been leaking for approximately a week. Heknew he was coming into see Dr. Carpenter so he was hoping to have his prosthesis changed during his follow-up visit with her. In the mean time he has been using his prosthesis plug when eating and drinking. He reports attempting to call to make an appointment, but he was never able to reach anyone tomake an appointment. He endorses continued difficulty swallowing that hasn't changed over time. Despite difficulties he is maintaining his weight. He denies difficulty breathing but reports he has less physical endurance after this last bout of COVID-19. He is consistently using his LaryTube and HME's. Assessment/Procedure: Prosthesis Size/Type: 17Fr./10mm Lot number: [id number] [employer]ox XtraFlange lot#: [id number] Dilation: deferred Insertion Method: Gel capsule Mr. [...] lidocaine was topically applied to the irene-puncture trace region for patient comfort. After confirmation of [...] XtraFlange was clipped and the prosthesis was functionallyposition. Evaluation: The TEP rotates freely within the tract. No central leakage or peripheral leakage observed. Neophonation is characteristically functional. Plan: Follow up with Voice [facility] Sw[facility] Clinic as needed for TEP maintenance as needed. Use the new brush provided and dispose of the used cleaning brush. Education: Mr. Barreto was educated regarding assessment findings and recommendations. He demonstrated functional understanding of the information presented and consented to the prescribed plan of care. documented in this encounter Plan of Treatment Upcoming Encounters Date Type Department Care Team (Late st Contact Info) Description 07/17/2024 12:30 PM EST Clinical Support Pav CC Head, Neck & Respiratory [address] [place] [address] 07/17/2024 1:30 PM EST Appointment [facility] Radiology [address] [place] [address] 07/20/2024 2:50 PM EST Office Visit Pav CC Head, Neck & Respiratory [address] [facility], [address]nd [place] [address] Divine Carpenter MD [address] [facility] Diane Zuniga [facility] [address] [place] [address] documented as of this encounter Visit Diagnoses [...] documented as of this encounter Care Teams Commercial Photographer Relationship Specialty Start Date End Date Michele Wright MD [address] [place] [address] PCP - General 10/11/20 Edgar Szymanski MD [address] [facility] [address] [place] [address] Radiation Oncologist Radiation Therapy 03/14/20 4 Shun Hurst MD [address] [place] [address] Surgeon Neurosurgery 02/24/21 Divine Carpenter MD [address] [facility] Diane Zuniga [facility] [address] [place] [address] Medical Oncologist Medical Oncology 06/13/21 documented as of this encounter
--- OUTSIDE RECORDS SUMMARY | 2024-05-03 13:37 | XMS_ITS | Encounter Summary ---
Author Organization [facility] Address [address] [place] [address] Care Team Providers Care Leather Belt Maker Name Role Phone Michele Wright MD Primary Care Provider + [phone] Edgar Szymanski MD Unavailable [phone] Shun Hurst MD Unavailable [phone] Divine Carpenter MD Unavailable [phone] Encounter Details Date Type Department Care Team (Latest Contact Info) Description 12/04/2022 10:30 AM EDT Clinical Support Pav CC Head, Neck & Respiratory [address] [facility], [address] [place] [address] Cancer of larynx (CMS/HCC) (Primary Dx) Social History Tobacco Use Types [...] Pav CC Head, Neck & Respiratory [address] [facility], [address]nd [place] [address] 07/17/2024 1:30 PM EST Appointment P[facility] G Radiology [address] [place] [address] 07/20/2024 2:50 PM EST Office Visit Pav CC Head, Neck & Respiratory [address] [facility], [address]nd [place] [address] Divine Carpenter MD [address] [facility] Diane Zuniga [facility] [address] [place] [address] documented as of this encounter Procedures Procedure Name Priority Date/Time Associated Diagnosis Comments CBC WITH AUTO DIFFERENTIAL Routine 12/04/2022 10:46 AM EDT Cancer of larynx (CMS/HCC) TSH Routine 12/04/2022 10:46 AM EDT Cancer of larynx (CMS/HCC) COMPREHENSIVE METABOLIC PANEL, PLASMA Routine 12/04/2022 10:46 AM EDT Cancer of larynx (CMS/HCC) documented in this encounter Results * (ABNORMAL) TSH (12/04/2022 10:46 AM EDT) Pathologist [facility] Thyroid Stimulating Hormone, Plasma 0.16(L) 0.40 - 4.20 uIU/mL 12/04/2022 11:54 AM EDT [facility] Blood Venous blood specimen / Unknown Venipuncture / Unknown 12/04/2022 10:46 AM EDT 12/04/2022 11:09 AM EDT us Divine Carpenter MD LAB BLOOD ORDERABLES Final R esult [facility] [address] [place] [address] * Comprehensive Metabolic Panel, Plasma (12/04/2022 10:46 AM EDT) Glucose, Plasma 88 74 - 99 mg/dL 12/04/2022 11:54 AM EDT [facility] BUN, Plasma 20 7 - 21 mg/dL 12/04/2022 11:54 AM EDT [facility] Creatinine, Plasma 0.87 0.80 - 1.30 mg/dL 12/04/2022 11:54 AM EDT [facility] BUN/Creatinine Ratio 23 12/04/2022 11:54 AM EDT [facility] Sodium, Plasma 137 136 - 145 mmol/L 12/04/2022 11:54 AM EDT [facility] Potassium, Plasma 3.9 3.7 - 4.8 mmol/L 12/04/2022 11:54 AM EDT [facility] Chloride, Plasma 97 97 - 107 mmol/L 12/04/2022 11:54 AM EDT [facility] CO2, Plasma 29 22 - 29 mmol/L 12/04/2022 11:54 AM EDT [facility] Anion Gap 11 6 - 16 mmol/L 12/04/2022 11:54 AM EDT [facility] Total Calcium, Plasma 9.2 8.9 - 10.2 mg/dL 12/04/2022 11:54 AM EDT [facility] Total Protein 7.6 6.3 - 7.9 g/dL 12/04/2022 11:54 AM EDT [facility] Albumin, Plasma 4.3 3.5 - 5.2 g/dL 12/04/2022 11:54 AM EDT [facility] AST, Plasma 19 12 - 40 U/L 12/04/2022 11:54 AM EDT [facility] ALT, Plasma 13 11 - 41 U/L 12/04/2022 11:54 AM EDT [facility] Alkaline Phosphatase, Plasma 89 40 - 115 U/L 12/04/2022 11:54 AM EDT [facility] Total Bilirubin, Plasma 0.9 0.2 - 1.1 mg/dL 12/04/2022 11:54 AM EDT [facility] eGFRcr 101.3 mL/min/1.7 3m*2 12/04/2022 11:54 AM EDT [facility] Comment: Reported eGFRcr in mL/min/1.73m2 is based the CKD-EPI 2021 equation that does not use a race coefficient. Effective 12/24/21 our laboratory changed the eGFR calculation to the CKD-EPI 2021 equation from the previously reported eGFR, based on the MDRD equation. ??For comparisons between the two equations, please see laboratory website: ??[email or web address] Blood Venous blood specimen / Unknown Venipuncture / Unknown 12/04/2022 10:46 AM EDT 12/04/2022 11:09 AM EDT Divine Carpenter MD LAB BLOOD ORDERABLES Final R esult [facility] [address] [place], [place] [id number] * (ABNORMAL) CBC and Differential (12/04/2022 10:46 AM EDT) WBC Count 5.92 3.70 - 10.30 10*3/uL LAB HEMATOLOGY METHOD 12/04/2022 11:36 AM EDT [facility] RBC Count 5.36 4.60 - 6.10 10*6/uL LAB HEMATOLOGY METHOD 12/04/2022 11:36 AM EDT [facility] HGB 14.8 13.7 - 17.5 g/dL LAB HEMATOLOGY METHOD 12/04/2022 11:36 AM EDT [facility] HCT 45.9 40.0 - 51.0 % LAB HEMATOLOGY METHOD 12/04/2022 11:36 AM EDT [facility] Platelet Count 155 155 - 369 10*3/uL LAB HEMATOLOGY METHOD 12/04/2022 11:36 AM EDT [facility] MCV 86 79 - 98 fL LAB HEMATOLOGY METHOD 12/04/2022 11:36 AM EDT [facility] MCH 27.6 26.0 - 32.0 pg LAB HEMATOLOGY METHOD 12/04/2022 11:36 AM EDT [facility] MCHC 32.2 30.7 - 35.5 g/dL LAB HEMATOLOGY METHOD 12/04/2022 11:36 AM EDT [facility] RDW 13.8 11.5 - 14.5 % LAB HEMATOLOGY METHOD 12/04/2022 11:36 AM EDT [facility] MPV 10.5 8.8 - 12.5 fL LAB HEMATOLOGY METHOD 12/04/2022 11:36 AM EDT [facility] nRBC 0.0 <=0.0 per 100 WBCs LAB HEMATOLOGY METHOD 12/04/2022 11:36 AM EDT [facility] Differential Type Automated LAB HEMATOLOGY METHOD 12/04/2022 11:36 AM EDT [facility] Neutrophils % 75.0 % LAB HEMATOLOGY METHOD 12/04/2022 11:36 AM EDT [facility] Lymphocytes % 12.0 % LAB HEMATOLOGY METHOD 12/04/2022 11:36 AM EDT [facility] Monocytes % 9.0 % LAB HEMATOLOGY METHOD 12/04/2022 11:36 AM EDT [facility] Eosinophils % 3.0 % LAB HEMATOLOGY METHOD 12/04/2022 11:36 AM EDT [facility] Basophils % 1.0 % LAB HEMATOLOGY METHOD 12/04/2022 11:36 AM EDT [facility] Immature Granulocytes % 0.0 % LAB HEMATOLOGY METHOD 12/04/2022 11:36 AM EDT [facility] Neutrophils Absolute 4.46 1.60 - 6.10 10*3/uL LAB HEMATOLOGY METHOD 12/04/2022 11:36 AM EDT [facility] Lymphocytes Absolute 0.72(L) 1.20 - 3.90 10*3/uL LAB HEMATOLOGY METHOD 12/04/2022 11:36 AM EDT [facility] Monocytes Absolute 0.52 0.30 - 0.90 10*3/uL LAB HEMATOLOGY METHOD 12/04/2022 11:36 AM EDT [facility] Eosinophils Absolute 0.17 0.00 - 0.50 10*3/uL LAB HEMATOLOGY METHOD 12/04/2022 11:36 AM EDT [facility] Basophils Absolute 0.03 0.00 - 0.10 10*3/uL LAB HEMATOLOGY METHOD 12/04/2022 11:36 AM EDT [facility] Immature Granulocytes Absolute 0.02 0.00 - 0.06 10*3/uL LAB HEMATOLOGY METHOD 12/04/2022 11:36 AM EDT [facility] Blood Venous blood specimen / Unknown Venipuncture / Unknown 12/04/2022 10:46 AM EDT 12/04/2022 11:26 AM EDT [facility] - 12/04/2022 11:36 AM EDT Therapeutic decision making should be based on absolute values, rather than percentages. Divine Carpenter MD LAB BLOOD ORDERABLES Final R esult [facility] [address] [place] [address] documented in this encounter Visit Diagnoses Diagnosis 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, unspecified site documented in this encounter Additional Health Concerns Assessment Noted Time A fall risk assessment has been complete d for the patient 10/01/2022 8:56 AM EDT A Body Mass Index follow-up plan has been documented for the patient 09/10/2022 11:09 AM EDT documented as of this encounter Care Teams Leather Belt Maker Relationship Specialty Start Date End Date Michele Wright MD [address] [place] [address] PCP - General 10/11/20 Edgar Szymanski MD [address] [facility] [address] [place] [address] Radiation Oncologist Radiation Therapy 03/14/20 4 Shun Hurst MD [address] [facility] [address] [place] [address] Surgeon Neurosurgery 02/24/21 Divine Carpenter MD [address] [facility] Diane Zuniga [facility] [address] [place] [address] Medical Oncologist Medical Oncology 06/13/21 documented as of this encounter
--- OUTSIDE RECORDS SUMMARY | 2024-05-03 13:37 | XMS_ITS | Encounter Summary ---
Author Organization Healthcare Address [address] [place] [address] Care Team Providers Care Primary Care Sales Representative Name Role Phone iMchele Wright MD Primary Care Provider + [phone] Edgar Szymanski MD Unavailable [phone] Shun Hurst MD Unavailable [phone] Divine Carpenter MD Unavailable [phone] Encounter Details Date Type Department Care Team (Latest Contact Info) Description 10/01/2022 Travel Social History Tobacco Use Types Packs/Day [...] Neck & Respiratory [address] [facility], [address]nd [place] [address] 07/17/2024 1:30 PM EST Appointment [facility] G Radiology [address] [place] [phone] 07/20/2024 2:50 PM EST Office Visit Pav CC Head, Neck & Respiratory [address] [facility], 2nd [place] [address] Divine Carpenter MD [address] [facility] [address] [facility] [address] [place] [address] documented as of this encounter Visit Diagnoses Not on filedocumented in this encounter Additional Health Concerns Assessment Noted Time A fall risk assessment has been complete d for the patient 10/01/2022 8:56 AM EDT A Body Mass Index follow-up plan has been documented for the patient 09/10/2022 11:09 AM EDT documented as of this encounter Care Teams Primary Care Sales Representative Relationship Specialty Start Date End Date Michele Wright MD [address] [place] [address] PCP - General 10/11/20 Edgar Szymanski MD [address] [facility] [address] [place] [address] Radiation Oncologist Radiation Therapy 03/14/20 4 Shun Hurst MD [address] [facility] [address] [place] [address] Surgeon Neurosurgery 02/24/21 Divine Carpenter MD [address] [facility] [address] [facility] [address] [place] [phone] Medical Oncologist Medical Oncology 06/13/21 documented as of this encounter
--- OUTSIDE RECORDS SUMMARY | 2024-05-03 13:37 | XMS_ITS | Encounter Summary ---
Author Organization [facility] Address [address] [place] [address] Care Team Providers Care Rubber Stamp Die Inspector Name Role Phone Michele Wright MD Primary Care Provider + [phone] Edgar Szymanski MD Unavailable [phone] Shun Hurst MD Unavailable [phone] Divine Carpenter MD Unavailable [phone] Reason for Visit * Reason Comments Labs Only Port labs Port Flush Encounter Details Date Type Department Care Team (Latest Contact Info) Description 03/08/2023 10:00 AM EDT Clinical Support [facility] [address] [place] [address] Neoplasm related pain; Cancer of larynx (CMS/HCC); Type 2 diabetes mellitus without complication, unspecified whether correction insulin use (CMS/HCC) Social History Tobacco Use [...] Upcoming Encounters Date Type Department Care Team ([facility] st Contact Info) Description 07/17/2024 12:30 PM EST Clinical Support [facility] [address] [facility], 2nd [place] [address] 07/17/2024 1:30 PM EST Appointment [facility] Radiology [address] [place] [address] 07/20/2024 2:50 PM EST Office Visit [facility] [address] [facility], 2nd [place] [address] Divine Carpenter MD [address] [facility] [address] [place] [address] documented as of this encounter Procedures Procedure Name Priority Date/Time Associated Diagnosis Comments CBC WITH AUTO DIFFERENTIAL Routine 03/08/2023 10:19 AM EDT Neoplasm related pain Cancer of larynx (CMS/HCC) Type 2 diabetes mellitus without complication, unspecified whether terminal block assembler insulin use (CMS/HCC) TSH Routine 03/08/2023 10:19 AM EDT Neoplasm related pain Cancer of larynx (CMS/HCC) Type 2 diabetes mellitus without complication, unspecified whether terminal block assembler insulin use (CMS/HCC) COMPREHENSIVE METABOLIC PANEL, PLASMA Routine 03/08/2023 10:19 AM EDT Neoplasm related pain Cancer of larynx (CMS/HCC) Type 2 diabetes mellitus without complication, unspecified whether correction insulin use (CMS/HCC) documented in this encounter Results * Thyroid Stimulating Hormone, Plasma (TSH) (03/08/2023 10:19 AM EDT) Thyroid Stimulating Hormone, Plasma 2.29 0.40 - 4.20 uIU/mL 03/08/2023 11:18 AM EDT [facility] Blood Blood sample taken from central line / Unknown (Port) Long-term Catheter / Unknown 03/08/2023 10:19 AM EDT 03/08/2023 10:39 AM EDT Divine Carpenter MD LAB BLOOD ORDERABLES Final R esult [facility] [address] [place] [address] * (ABNORMAL) Comprehensive Metabolic Panel, Plasma (03/08/2023 10:19 AM EDT) Glucose, Plasma 132(H) 74 - 99 mg/dL 03/08/2023 11:18 AM EDT [facility] BUN, Plasma 18 7 - 21 mg/dL 03/08/2023 11:18 AM EDT [facility] Creatinine, Plasma 1.02 0.80 - 1.30 mg/dL 03/08/2023 11:18 AM EDT [facility] BUN/Creatinine Ratio 18 03/08/2023 11:18 AM EDT [facility] Sodium, Plasma 140 136 - 145 mmol/L 03/08/2023 11:18 AM EDT [facility] Potassium, Plasma 3.6(L) 3.7 - 4.8 mmol/L 03/08/2023 11:18 AM EDT [facility] Chloride, Plasma 100 97 - 107 mmol/L 03/08/2023 11:18 AM EDT [facility] CO2, Plasma 30(H) 22 - 29 mmol/L 03/08/2023 11:18 AM EDT [facility] Anion Gap 10 6 - 16 mmol/L 03/08/2023 11:18 AM EDT [facility] Total Calcium, Plasma 9.0 8.9 - 10.2 mg/dL 03/08/2023 11:18 AM EDT [facility] Total Protein 7.0 6.3 - 7.9 g/dL 03/08/2023 11:18 AM EDT [facility] Albumin, Plasma 4.0 3.5 - 5.2 g/dL 03/08/2023 11:18 AM EDT [facility] AST, Plasma 21 10 - 50 U/L 03/08/2023 11:18 AM EDT [facility] ALT, Plasma 21 10 - 50 U/L 03/08/2023 11:18 AM EDT [facility] Alkaline Phosphatase, Plasma 76 40 - 115 U/L 03/08/2023 11:18 AM EDT [facility] Total Bilirubin, Plasma 0.4 0.2 - 1.1 mg/dL 03/08/2023 11:18 AM EDT [facility] eGFRcr 86.3 mL/min/1.7 3m*2 03/08/2023 11:18 AM EDT [facility] Comment:Reported eGFRcr in m L/min/1.73m2 is based the CKD-EPI 2020 equation that does not use a race coefficient. Blood Blood sample taken from central line / Unknown (Port) Long-term Catheter / Unknown 03/08/2023 10:19 AM EDT 03/08/2023 10:39 AM EDT us Divine Carpenter MD LAB BLOOD ORDERABLES Final R esult [facility] [address] [place], [place] [id number] * (ABNORMAL) CBC and Differential (03/08/2023 10:19 AM EDT) WBC Count 5.96 3.70 - 10.30 10*3/uL LAB HEMATOLOGY METHOD 03/08/2023 10:46 AM EDT [facility] RBC Count 5.17 4.60 - 6.10 10*6/uL LAB HEMATOLOGY METHOD 03/08/2023 10:46 AM EDT [facility] HGB 14.6 13.7 - 17.5 g/dL LAB HEMATOLOGY METHOD 03/08/2023 10:46 AM EDT [facility] HCT 44.8 40.0 - 51.0 % LAB HEMATOLOGY METHOD 03/08/2023 10:46 AM EDT [facility] Platelet Count 154(L) 155 - 369 10*3/uL LAB HEMATOLOGY METHOD 03/08/2023 10:46 AM EDT [facility] MCV 87 79 - 98 fL LAB HEMATOLOGY METHOD 03/08/2023 10:46 AM EDT [facility] MCH 28.2 26.0 - 32.0 pg LAB HEMATOLOGY METHOD 03/08/2023 10:46 AM EDT [facility] MCHC 32.6 30.7 - 35.5 g/dL LAB HEMATOLOGY METHOD 03/08/2023 10:46 AM EDT [facility] RDW 14.4 11.5 - 14.5 % LAB HEMATOLOGY METHOD 03/08/2023 10:46 AM EDT [facility] MPV 10.9 8.8 - 12.5 fL LAB HEMATOLOGY METHOD 03/08/2023 10:46 AM EDT [facility] nRBC 0.0 <=0.0 per 100 WBCs LAB HEMATOLOGY METHOD 03/08/2023 10:46 AM EDT [facility] Differential Type Automated LAB HEMATOLOGY METHOD 03/08/2023 10:46 AM EDT [facility] Neutrophils % 76.0 % LAB HEMATOLOGY METHOD 03/08/2023 10:46 AM EDT [facility] Lymphocytes % 13.0 % LAB HEMATOLOGY METHOD 03/08/2023 10:46 AM EDT [facility] Monocytes % 8.0 % LAB HEMATOLOGY METHOD 03/08/2023 10:46 AM EDT [facility] Eosinophils % 3.0 % LAB HEMATOLOGY METHOD 03/08/2023 10:46 AM EDT [facility] Basophils % 0.0 % LAB HEMATOLOGY METHOD 03/08/2023 10:46 AM EDT [facility] Immature Granulocytes % 0.0 % LAB HEMATOLOGY METHOD 03/08/2023 10:46 AM EDT [facility] Neutrophils Absolute 4.48 1.60 - 6.10 10*3/uL LAB HEMATOLOGY METHOD 03/08/2023 10:46 AM EDT [facility] Lymphocytes Absolute 0.79(L) 1.20 - 3.90 10*3/uL LAB HEMATOLOGY METHOD 03/08/2023 10:46 AM EDT [facility] Monocytes Absolute 0.50 0.30 - 0.90 10*3/uL LAB HEMATOLOGY METHOD 03/08/2023 10:46 AM EDT [facility] Eosinophils Absolute 0.15 0.00 - 0.50 10*3/uL LAB HEMATOLOGY METHOD 03/08/2023 10:46 AM EDT [facility] Basophils Absolute 0.02 0.00 - 0.10 10*3/uL LAB HEMATOLOGY METHOD 03/08/2023 10:46 AM EDT [facility] Immature Granulocytes Absolute 0.02 0.00 - 0.06 10*3/uL LAB HEMATOLOGY METHOD 03/08/2023 10:46 AM EDT [facility] Blood Blood sample taken from central line / Unknown (Port) Long-term Catheter / Unknown 03/08/2023 10:19 AM EDT 03/08/2023 10:39 AM EDT Narrative [facility] - 03/08/2023 10:46 AM EDT Therapeutic decision making should be based on absolute values, rather than percentages. Divine Carpenter MD LAB BLOOD ORDERABLES Final R esult [facility] [address] [place] [address] documented in this encounter Visit Diagnoses Diagnosis Neoplasm related pain Neoplasm related pain (acute) (chronic) 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, unspecified site Type 2 diabetes mellitus without complication, unspecified whether terminal block assembler insulin use (CMS/HCC) documented in this encounter Additional Health Concerns Assessment Noted Time A fall risk assessment has been complete d for the patient 12/07/2022 10:46 AM EDT A Body Mass Index follow-up plan has been documented for the patient 09/10/2022 11:09 AM EDT documented as of this encounter Care Teams Rubber Stamp Die Inspector Relationship Specialty Start Date End Date Michele Wright MD [address] [id number] PCP - General 10/11/20 Edgar Szymanski MD [address] [facility] [address] [place] [address] Radiation Oncologist Radiation Therapy 03/14/20 4 Shun Hurst MD [address] [place] [address] Surgeon Neurosurgery 02/24/21 Divine Carpenter MD [address] [facility] [address] [facility] [address] [place] [address] Medical Oncologist Medical Oncology 06/13/21 documented as of this encounter
--- OUTSIDE RECORDS SUMMARY | 2024-05-03 13:37 | XMS_ITS | Encounter Summary ---
Author Organization [facility] Address [address] [place] [address] Care Team Providers Care Cook Candy Name Role Phone Michele Wright MD Primary Care Provider [phone] Edgar Szymanski MD Unavailable [phone] Shun Hurst MD Unavailable [phone] Divine Carpenter MD Unavailable [phone] Reason for Referral * Consultation (Routine) - Authorized Specialty Diagnoses / Procedures Referred By Ortega harden Referred To Contact Dermatology Diagnoses 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) Divine Carpenter MD [address] [address] Phone: tel: fax: Referral ID Status Reason Start Date Expiration Date Visits Requested Visits Authorized [id number] Authorized Specialty Services Required 12/07/2022 06/07/2024 1 1 Scheduling Instructions Right hand lesion - History HN * Imaging (Routine) - Closed Specialty Diagnoses / Procedures Referred By Ortega harden Referred To Contact Radiology Diagnoses 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) Procedures CT Soft Tissue Neck w IV Contrast Divine Carpenter MD [address] [address] Phone: tel: fax: Referral ID Status Reason Start Date Expiration Date Visits Re quested Visits Authorized [id number] Closed 12/06/2022 06/06/2024 1 1 * Imaging (Routine) - Closed Specialty Diagnoses / Procedures Referred By Contac t Referred To Contact Radiology Diagnoses 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) Procedures CT Chest w IV Contrast Divine Carpenter MD [address] [facility] [address] [address] Phone: tel: fax: Referral ID Status Reason Start Date Expiration Date Visits Re quested Visits Authorized [id number] Closed 12/06/2022 06/06/2024 1 1 * Imaging (Routine) - Closed Specialty Diagnoses / Procedures Referred By Contac t Referred To Contact Radiology Diagnoses 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) Procedures CT Abdomen Pelvis w IV Contrast Divine Carpenter MD [address] [facility] [address] [address] Phone: tel: fax: Referral ID Status Reason Start Date Expiration Date Visits Re quested Visits Authorized [id number] Closed 12/06/2022 06/06/2024 1 1 Reason for Visit * Reason Comments Follow-up Encounter Details Date Type Department Care Team (Late st Contact Info) Description 12/07/2022 11:00 AM EDT Office Visit [facility] [address] [place] [address] Divine Carpenter MD [address] [facility] [address] [address] Cancer of larynx (CMS/HCC) (Primary Dx); Secondary malignant neoplasm of chest wall (CMS/HCC) Social History Tobacco Use Types Packs/Day [...] Sign Reading Time Taken Comments Blood Pressure 130/81 12/07/2022 10:44 AM EDT Pulse 91 12/07/2022 10:44 AM EDT Temperature 36.6 ??C (97.9 ??F) 12/07/2022 10:44 AM E DT Respiratory Rate 16 12/07/2022 10:44 AM EDT Oxygen Saturation 93% 12/07/2022 10:44 AM EDT Inhaled Oxygen Concentration - - Weight 104 kg (228 lb 13.4 oz) 12/07/2022 10:44 AM EDT Height 176 cm (5' 9.29 ) 12/07/2022 10:44 AM EDT Body Mass Index 33.51 12/07/2022 10:44 AM EDT documented in this encounter Miscellaneous Notes * Progress Notes - Divine Carpenter MD - 12/07/2022 11:00 AM EDT MEDICAL ONCOLOGY FOLLOW-UP NOTE Patient Information Patient Name: Anibal Barreto Date of : 1965 REFERRING PHYSICIAN: Michele rWight MD Encounter Date: 12/07/2022 Treatment Diagnosis: Cancer Staging Cancer of larynx [...] after treatment of head and neck cancer. He has a chronic itchy lesion on his right dorsum of the hand. This has waxed and waned over several years, but now is increasing in size and is persistent. 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 Cancer of larynx (CMS/HCC) 02/19/2017 Cancer Staged Staging form: Larynx - Glottis, AJCC 8th Edition, Clinical stage from 02/19/2017: Stage ZULAY (cT3, cN2c, cM0) - Signed by Divine Carpenter MD on 10/14/2020 03/18/2017 Initial Diagnosis Cancer of larynx (CMS/HCC) 03/22/2018 Cancer Staged Staging form: Larynx - Glottis, AJCC 8th Edition, Pathologic stage from 03/22/2018: Stage III (rpT3, pN0, cM0) - Signed by Divine Carpenter MD on 10/14/2020 11/21/2019 Cancer Staged Staging form: Larynx - Glottis, AJCC 8th Edition, Pathologic stage from 11/21/2019: Stage IVC (rpTX,pNX, pM1) - Signed by Divine Carpenter MD on 10/14/2020 03/14/2020 - 11/24/2020 Research Study Participant [id number]: Pembrolizumab Every 42 Days Every 84 Days Plan Provider: Divine Carpenter MD Treatment goal: Palliative Line of treatment: Second Line Associated studies: Priming Immunotherapy in Advanced Disease with Radiation 11/26/2020 - Radiation Therapy The patient saw No care sales team recruiter to display for radiation treatment. This is the current list ofradiation treatment: Radiation Treatments No radiation treatments to show. (Treatments may have been administered in another system.) 12/09/2020 - Radiation Therapy The patient saw No care sales team recruiter to display for radiation treatment. This is [...] Radiation Therapy The patient saw No care sales team recruiter to display for radiation treatment. This is the current list ofradiation treatment: Radiation Treatments No radiation treatments to show. (Treatments may have been administered in another system.) 11/26/2020 Initial Diagnosis Secondary malignant neoplasm of chest wall (CMS/HCC) 12/09/2020 - Radiation Therapy The patient saw No care sales team recruiter to display for radiation treatment. This is the current list ofradiation treatment: Radiation Treatments No radiation treatments to show. (Treatments may have been administered in another system.) Currently, he denies fever, or chills, nausea, vomiting, but has a laryngectomy, dry mouth, throat pain, dysphagia, voice changes. Problem List and Medications Reviewed in this encounter by me personally No questionnaires on file. Objective Performance Status 0: Fully active, able to carry on all pre-disease performance without restriction Blood pressure 130/81, pulse 91, temperature 36.6 ??C (97.9 ??F), resp. rate 16, height 1.76 m (5' 9.29 ), weight 104 kg (228 lb 13.4 oz), SpO2 93 %. EXAM Physical Exam Constitutional: General: He [...] cancer related drug toxicity and treatment related penitentiary toxicity CBC WBC 5.92 Hgb 14.8 PLT 155 HCT 45.9 Lab Results Component Value Date NEUTROABS 4.46 12/04/2022 BMPL Na 137 Cl 97 BUN 20 Gluc 88 K 3.9 Co2 29 Creat 0.87 LIVER FUNCTION TESTING Tot Prot 7.6 AST 19 Tot bili 0.9 ALT 13 Alkphos 89 Ca 9.2 Lab Results Component Value Date TSH 0.16 (L) 12/04/2022 RADIOLOGY: I independently visualized the recent imaging below based on the patient's symptoms and oncologic history. CT Soft Tissue Neck w IV Contrast Result Date: 12/04/2022 Impression: Unchanged since the previous examination. No recurrence. Elias Washburn M.D. This report has been electronically signed and verified by the Radiologist whose name is printed above. / CT Chest w IV Contrast Result Date: 12/04/2022 Impression: No evidence of disease progression within the chest, abdomen, or pelvis. CRITICAL RESULT: No. COMMUNICATION: Per this written report. By electronically signing this report, I, the attending physician, attest that I have personally reviewed the images/data for the above examination(s) and agree with the final edited report. Drafted by Jamie West D.O. on 12/04/2022 1:38 PM Final reportsigned by Jeniffer Nichols MD on 12/04/2022 7:[address] Abdomen Pelvis w IV Contrast Result Date: 12/04/2022 Impression: No evidence of disease progression within the chest, abdomen, or pelvis. CRITICAL RESULT: No. COMMUNICATION: Per this written report. By electronically signing this report, I, the attending physician, attest that I have personally reviewed the images/data for the above examination(s) and agree with the final edited report. Drafted by Jamie West D.O. on 12/04/2022 1:38 PM Final reportsigned by Jeniffer Nichols MD on 12/04/2022 7:27 PM Assessment/Plan 1. Cancer management : Cancer [...] frequency of narcotic and adjunctive medications by . KEVAN report reviewed and will be reviewed periodically 3. 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 Correia soon with MBS and potential need foresophageal dilation versus peg tube placement 4. Monitoring for worsening hypothyroidism - decrease levothyroxine to 125mg, due to low TSH - This will be periodically monitored as we continue therapy, due to the potential for worsening ofthyroid function from radiation and systemic cancer therapy. 5. Skin lesion - refer to dermatology Divine Carpenter MD Orders Placed This Encounter Procedures CT Abdomen Pelvis w IV Contrast CT Chest w IV Contrast CT Soft Tissue Neck w IV Contrast Ambulatory referral to Dermatology documented in this encounter Plan of Treatment Upcoming Encounters Date Type Department Care Team (Late st Contact Info) Description 07/17/2024 12:30 PM EST Clinical Support [facility] Res[facility] [address] [facility], [address] [place] [phone] 07/17/2024 1:30 PM EST Appointment [facility] [address] [place] [address] 07/20/2024 2:50 PM EST Office Visit Pav [facility] Head[facility] Neck [facility] Respiratory 800 [facility], [address] [place] [phone] Divine Carpenter MD 800 [facility] [address] [place] [address] Scheduled Referrals Name Type Priority Associated Diagnoses Order Schedule Ambulatory referral to Dermatology Outpatient Referral Routine 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) Expected: 12/07/2022 (Approximate), Expires: 06/09/2024 documented as of this encounter Results * CT Soft Tissue [...] error, please notify the sender immediately at [phone] and permanently delete the original report and destroy any copies or printouts. Narrative 03/08/2023 4:37 PM EDT [facility] ? - Phone Outpatient NAME: Anibal Barreto ?? DATE OF EXAM: 03/08/2023 Patient No: ??[id number] Physician: ??Jayden^Divine Date of : ??1965 Past [...] Procedure Note Elias Washburn MD - 03/08/2023 [facility] - Phone Outpatient NAME: Anibal Barreto DATE OF EXAM: 03/08/2023 Patient No: [id number] Physician: Lynette Date of : 1965 Past [...] in error, pleasenotify the sender immediately at [phone] and permanently delete theoriginal report and destroy [...] chest wall (CMS/HCC) documented in this encounter Additional Health Concerns Assessment Noted Time A fall risk assessment has been complete d for the patient 12/07/2022 10:46 AM EDT A Body Mass Index follow-up plan has been documented for the patient 09/10/2022 11:09 AM EDT documented as of this encounter Care Teams Cook Candy Relationship Specialty Start Date End Date Michele Wright MD [address] [place] [address] PCP - General 10/11/20 Edgar Szymanski MD [address] [place] [address] Radiation Oncologist Radiation Therapy 03/14/20 4 Shun Hurst MD [address] [place] [address] Surgeon Neurosurgery 02/24/21 Divine Carpenter MD [address] [phone] Medical Oncologist Medical Oncology 06/13/21 documented as of this encounter
--- OUTSIDE RECORDS SUMMARY | 2024-05-03 13:37 | XMS_ITS | Encounter Summary ---
Author Organization [facility] Address [address] [place] [address] Care Team Providers Care Concrete Handler Name Role Phone Michele Wright MD Primary Care Provider + [phone] Edgar Szymanski MD Unavailable [phone] Shun Hurst MD Unavailable [phone] Divine Carpenter MD Unavailable [phone] Reason for Referral * Imaging (Routine) - Closed Specialty Diagnoses / Procedures Referred By Contac t Referred To Contact Cardiology Diagnoses History of laryngeal cancer Hx of deep venous thrombosis Bilateral carotid artery stenosis Procedures VAS US Arterial Duplex Upper Extremity Unilateral Right Divine Carpenter MD [address] [address] Phone: tel: fax: Referral ID Status Reason Start Date Expiration Date V isits Requested Visits Authorized [id number] Closed Perform Procedure 03/11/2023 09/09/2024 1 1 * Imaging (Routine) - Closed Specialty Diagnoses / Procedures Referred By Contac t Referred To Contact Cardiology Diagnoses History of laryngeal cancer Hx of deep venous thrombosis Bilateral carotid artery stenosis Procedures VAS US Carotid Duplex Bilateral Divine Carpenter MD [address] [address] Phone: tel: fax: Referral ID Status Reason Start Date Expiration Date V isits Requested Visits Authorized [id number] Closed Perform Procedure 03/11/2023 09/09/2024 1 1 * Imaging (Routine) - Closed Specialty Diagnoses / Procedures Referred By Contac t Referred To Contact Radiology Diagnoses History of laryngeal cancer Procedures CT Chest w IV Contrast Divine Carpenter MD [address] [address] Phone: tel: fax: Referral ID Status Reason Start Date Expiration Date Visits Re quested Visits Authorized [id number] Closed 03/09/2023 09/07/2024 1 1 * Imaging (Routine) - Closed Specialty Diagnoses / Procedures Referred By Contac t Referred To Contact Radiology Diagnoses History of laryngeal cancer Procedures CT Soft Tissue Neck w IV Contrast Divine Carpenter MD [address] [address] Phone: tel: fax: Referral ID Status Reason Start Date Expiration Date Visits Re quested Visits Authorized [id number] Closed 03/09/2023 09/07/2024 1 1 Reason for Visit * Reason Comments Follow-up Encounter Details Date Type Department Care Team (Late st Contact Info) Description 03/11/2023 9:50 AM EDT Office Visit Pav CC Head, Neck & Respiratory 800 [facility], [address]nd [place] [address] Divine Carpenter MD [address] [place] [phone] History of laryngeal cancer (Primary Dx); Hx of deep venous thrombosis; 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; Bilateral carotid artery stenosis; Neoplasm related pain; Neuropathy of right upper extremity; Dysphagia, pharyngeal; Aphonia Social History Tobacco Use Types Packs/Day [...] Sign Reading Time Taken Comments Blood Pressure 158/83 03/11/2023 9:32 AM EDT Pulse 68 03/11/2023 9:32 AM EDT Temperature 37.1 ??C (98.7 ??F) 03/11/2023 9:32 AM ED T Respiratory Rate 16 03/11/2023 9:32 AM EDT Oxygen Saturation 95% 03/11/2023 9:32 AM EDT Inhaled Oxygen Concentration - - Weight 104 kg (229 lb 8 oz) 03/11/2023 9:32 AM E DT Height 176 cm (5' 9.29 ) 03/11/2023 9:32 AM EDT Body Mass Index 33.61 03/11/2023 9:32 AM EDT documented in this encounter Miscellaneous Notes * Progress Notes - Divine Carpenter MD - 03/11/2023 9:50 AM EDT MEDICAL ONCOLOGY FOLLOW-UP NOTE Patient Information Patient Name: Anibal Barreto Date of : 1965 REFERRING PHYSICIAN: Michele Wright MD Encounter Date: 03/11/2023 Treatment Diagnosis: Cancer Staging Cancer of larynx [...] neck cancer / followup after treatment of lungcancer} Oncology History Overview Note Mr Anibal Barreto [...] with adenopathy in levels 2 through 4 [id number] 3 PET/CT scan dated 02/19/2017 showed an intensely hypermetabolic epiglottis and mucosa extending to the true vocal cords, slightly asymmetric involving the right pyriform sinus and aryepiglottic fold with 27 4 mSUV along with intensely hypermetabolic bilateral cervical lymph nodes 4 A biopsy performed here at [facility] during direct examination on 03/03/2017 showed 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 Cancer of larynx ([facility]/HCC) 02/19/2017 Cancer Staged Staging form: Larynx - [...] 10/14/2020 03/14/2020 - 11/24/2020 Research Study Participant [id number]: Pembrolizumab Every 42 Days Every 84 Days Plan Provider: Divine Carpenter MD Treatment goal: Palliative Line of treatment: Second Line Associated studies: Priming Immunotherapy in Advanced Disease with Radiation 11/26/2020 - Radiation Therapy The patient saw No care environmental field team member to display for radiation treatment. This is the current list ofradiation treatment: Radiation Treatments No radiation treatments to show. (Treatments may have been administered in another system.) 12/09/2020 - Radiation Therapy The patient saw No care environmental field team member to display for radiation treatment. This is [...] Radiation Therapy The patient saw No care environmental field team member to display for radiation treatment. This is the current list ofradiation treatment: Radiation Treatments No radiation treatments to show. (Treatments may have been administered in another system.) 11/26/2020 Initial Diagnosis Secondary malignant neoplasm of chest wall (CMS/HCC) 12/09/2020 - Radiation Therapy The patient saw No care environmental field team member to display for radiation treatment. This is the current list ofradiation treatment: Radiation Treatments No radiation treatments to show. (Treatments may have been administered in another system.) Currently, he denies fever, or chills, nausea, vomiting, dry mouth, throat pain, but has worsening neuropathy in his right arm. He denies stroke like symptoms or change in temperature with the arm. Pertinent records are reviewed today from recent visit to orthopedic MD at [facility] Problem List and Medications Reviewed in this encounter by me personally Objective Performance Status 0: Fully active, able to carry on all pre-disease performance without restriction Blood pressure (!) 158/83, pulse 68, temperature 37.1 ??C (98.7 ??F), temperature source Oral, resp. rate 16, height 1.76 m (5' 9.29 ), weight 104 kg (229 lb 8 oz), SpO2 95 %. EXAM Physical Exam Constitutional: General: He [...] cancer related drug toxicity and treatment related long winder tender toxicity CBC WBC 5.96 Hgb 14.6 PLT 154 HCT 44.8 Lab Results Component Value Date NEUTROABS 4.48 03/08/2023 BMPL Na 140 Cl 100 BUN 18 Gluc 132 K 3.6 Co2 30 Creat 1.02 LIVER FUNCTION TESTING Tot Prot 7.0 AST 21 Tot bili 0.4 ALT 21 Alkphos 76 Ca 9.0 Lab Results Component Value Date TSH 2.29 03/08/2023 RADIOLOGY: I independently visualized the recent imaging below based on the patient's symptoms and oncologic history. CT Soft Tissue Neck w IV Contrast Result Date: 03/08/2023 Impression: Unchanged since the previous examination. No [...] whose name is printed above. / CT Abdomen Pelvis w IV Contrast Result Date: 03/08/2023 Impression: No evidence of neoplastic progression. CRITICAL RESULT: No. COMMUNICATION: Per this written report. Drafted by Louie Liu MD on 03/08/2023 12:17 PM Final report signed by Louie Liu MD on 03/08/2023 12:[address] Chest w IV Contrast Result Date: 03/08/2023 Impression: No evidence of neoplastic progression. CRITICAL RESULT: No. COMMUNICATION: Per this written report. Drafted by Louie Liu MD on 03/08/2023 12:17 PM Final report signed by Louie Lui MD on 03/08/2023 12:20 PM Assessment/Plan 1. Cancer management : Cancer [...] this patient's prior chemotherapy. - RTC in 4M with repeat scans. Plan to continue to [...] placement 4. Monitoring for worsening hypothyroidism - decreased levothyroxine to 125mg, and TSH is WNL - This will be periodically monitored as we continue therapy, due to the potential for worsening ofthyroid function from radiation and systemic cancer therapy. 5. Skin lesion - sees dermatology tomorrow 6. Neuropathy - will send back to orthopedics due to no improvement with conservative measures 7. Carotid narrowing - dopplers of bilateral necks and then to see vascular surgery if there is significant stenosis confirmed by doppler. Will also get right UE arterial studies given severity of vascular disease seen on CT and his worsening symptoms. Divine Carpenter MD Orders Placed This Encounter [...] Head, Neck & Respiratory [address] [facility], [address]nd [place] [address] 07/17/2024 1:30 PM EST Appointment [facility] G Radiology [address] [place] [address] 07/20/2024 2:50 PM EST Office Visit Pav CC Head, Neck & Respiratory [address] [facility], [address]nd [place] [address] Divine Carpenter MD 800 [facility] [address] [place] [address] documented as of this encounter Results * [...] MD on 07/09/2023 9:59 PM us Divine Carpenter MD IMG CT [...] of moderate bony spinal stenosis stenosis at [id number] to degenerative changes and ossification of the posteriorlongitudinal ligament. CRITICAL RESULT: No. COMMUNICATION: Per this written report. Drafted by Camilla Martin MD on 07/13/2023 8:09 AM Final report signed by Camilla Martin MD on 07/13/2023 8:28 AM Divine Carpenter MD IMG CT PROCEDURES Final Resu lt * (ABNORMAL) CBC and Differential (07/09/2023 1:33 PM EST) WBC Count 5.85 3.70 - 10.30 10*3/uL LAB HEMATOLOGY METHOD 07/09/2023 1:56 PM EST [facility] RBC Count 5.22 4.60 - 6.10 10*6/uL LAB HEMATOLOGY METHOD 07/09/2023 1:56 PM EST [facility] HGB 14.6 13.7 - 17.5 g/dL LAB HEMATOLOGY METHOD 07/09/2023 1:56 PM EST [facility] HCT 45.7 40.0 - 51.0 % LAB HEMATOLOGY METHOD 07/09/2023 1:56 PM EST [facility] Platelet Count 151(L) 155 - 369 10*3/uL LAB HEMATOLOGY METHOD 07/09/2023 1:56 PM EST [facility] MCV 88 79 - 98 fL LAB HEMATOLOGY METHOD 07/09/2023 1:56 PM EST [facility] MCH 28.0 26.0 - 32.0 pg LAB HEMATOLOGY METHOD 07/09/2023 1:56 PM EST [facility] MCHC 31.9 30.7 - 35.5 g/dL LAB HEMATOLOGY METHOD 07/09/2023 1:56 PM EST [facility] RDW 13.8 11.5 - 14.5 % LAB HEMATOLOGY METHOD 07/09/2023 1:56 PM EST [facility] MPV 10.6 8.8 - 12.5 fL LAB HEMATOLOGY METHOD 07/09/2023 1:56 PM EST [facility] nRBC 0.0 <=0.0 per 100 WBCs LAB HEMATOLOGY METHOD 07/09/2023 1:56 PM EST [facility] Differential Type Automated LAB HEMATOLOGY METHOD 07/09/2023 1:56 PM EST [facility] Neutrophils % 72.0 % LAB HEMATOLOGY METHOD 07/09/2023 1:56 PM EST [facility] Lymphocytes % 15.0 % LAB HEMATOLOGY METHOD 07/09/2023 1:56 PM EST [facility] Monocytes % 10.0 % LAB HEMATOLOGY METHOD 07/09/2023 1:56 PM EST [facility] Eosinophils % 3.0 % LAB HEMATOLOGY METHOD 07/09/2023 1:56 PM EST [facility] Basophils % 0.0 % LAB HEMATOLOGY METHOD 07/09/2023 1:56 PM EST [facility] Immature Granulocytes % 0.0 % LAB HEMATOLOGY METHOD 07/09/2023 1:56 PM EST [facility] Neutrophils Absolute 4.24 1.60 - 6.10 10*3/uL LAB HEMATOLOGY METHOD 07/09/2023 1:56 PM EST [facility] Lymphocytes Absolute 0.86(L) 1.20 - 3.90 10*3/uL LAB HEMATOLOGY METHOD 07/09/2023 1:56 PM EST [facility] Monocytes Absolute 0.56 0.30 - 0.90 10*3/uL LAB HEMATOLOGY METHOD 07/09/2023 1:56 PM EST [facility] Eosinophils Absolute 0.16 0.00 - 0.50 10*3/uL LAB HEMATOLOGY METHOD 07/09/2023 1:56 PM EST [facility] Basophils Absolute 0.02 0.00 - 0.10 10*3/uL LAB HEMATOLOGY METHOD 07/09/2023 1:56 PM EST [facility] Immature Granulocytes Absolute 0.01 0.00 - 0.06 10*3/uL LAB HEMATOLOGY METHOD 07/09/2023 1:56 PM EST [facility] Blood Venous blood specimen / Unknown IV Start, Use per Policy / Unknown 07/09/2023 1:33 PM EST 07/09/2023 1:45 PM EST [facility] - 07/09/2023 1:56 PM EST Therapeutic decision making should be based on absolute values, rather than percentages. us Divine Carpenter MD LAB BLOOD ORDERABLES Final R esult [facility] [address] [place] [phone] * (ABNORMAL) Comprehensive Metabolic Panel, Plasma (07/09/2023 1:33 PM EST) Glucose, Plasma 119(H) 74 - 99 mg/dL 07/09/2023 2:24 PM EST [facility] BUN, Plasma 15 7 - 21 mg/dL 07/09/2023 2:24 PM [facility] Creatinine, Plasma 0.97 0.80 - 1.30 mg/dL 07/09/2023 2:24 PM EST [facility] BUN/Creatinine Ratio 15 07/09/2023 2:24 PM [facility] Sodium, Plasma 143 136 - 145 mmol/L 07/09/2023 2:24 PM [facility] Potassium, Plasma 4.0 3.7 - 4.8 mmol/L 07/09/2023 2:24 PM [facility] Chloride, Plasma 103 97 - 107 mmol/L 07/09/2023 2:24 PM [facility] CO2, Plasma 28 22 - 29 mmol/L 07/09/2023 2:24 PM [facility] Anion Gap 12 6 - 16 mmol/L 07/09/2023 2:24 PM [facility] Total Calcium, Plasma 8.9 8.9 - 10.2 mg/dL 07/09/2023 2:24 PM [facility] Total Protein 7.4 6.3 - 7.9 g/dL 07/09/2023 2:24 PM [facility] Albumin, Plasma 4.1 3.5 - 5.2 g/dL 07/09/2023 2:24 PM [facility] AST, Plasma 20 10 - 50 U/L 07/09/2023 2:24 PM [facility] Comment:Hemolyzed, result ma y be falsely increased. ALT, Plasma 16 10 - 50 U/L 07/09/2023 2:24 PM [facility] Alkaline Phosphatase, Plasma 79 40 - 115 U/L 07/09/2023 2:24 PM [facility] Total Bilirubin, Plasma 0.8 0.2 - 1.1 mg/dL 07/09/2023 2:24 PM [facility] eGFRcr 91.1 mL/min/1.7 3m*2 07/09/2023 2:24 PM [facility] Comment:Reported eGFRcr in m L/min/1.73m2 is based the CKD-EPI 2020 equation that does not use a race coefficient. Blood Venous blood specimen / Unknown IV Start, Use per Policy / Unknown 07/09/2023 1:33 PM EST 07/09/2023 1:45 PM EST Divine Carpenter MD LAB BLOOD ORDERABLES Final R esult Performing Organization Address [facility] de Phone Number [facility] [address] [place] [address] * (ABNORMAL) Thyroid Stimulating Hormone, Plasma (07/09/2023 1:33 PM EST) Thyroid Stimulating Hormone, Plasma 0.39(L) 0.40 - 4.20 uIU/mL 07/09/2023 2:24 PM EST [facility] Blood Venous blood specimen / Unknown IV Start, Use per Policy / Unknown 07/09/2023 1:33 PM EST 07/09/2023 1:45 PM EST Divine Carpenter MD LAB BLOOD ORDERABLES Final R esult Performing Organization Address [facility] Phone Number [facility] [address] [place] [address] * VAS US Carotid Duplex Bilateral (04/07/2023 [...] Carpenter MD CV VASCULAR PROCEDURES Final Result * VAS US Arterial Duplex Upper Extremity [...] of larynx Hx of deep venous thrombosis 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 Bilateral carotid artery stenosis Occlusion and stenosis of carotid artery without mention of cerebral infarction Neoplasm related pain Neoplasm related pain (acute) (chronic) Neuropathy of right upper extremity Dysphagia, pharyngeal Dysphagia, pharyngeal phase Aphonia History of laryngeal cancer Personal history of malignant neoplasm of larynx Hx of deep venous thrombosis Bilateral carotid artery stenosis Occlusion and stenosis of carotid artery without mention of cerebral infarction History of laryngeal cancer Personal history of malignant neoplasm of larynx Hx of deep venous thrombosis Bilateral carotid artery stenosis Occlusion and stenosis of carotid artery without mention of cerebral infarction History of laryngeal cancer Personal history of malignant neoplasm of larynx documented in this encounter Additional Health Concerns Assessment Noted Time A fall risk assessment has been complete d for the patient 03/11/2023 9:30 AM EDT A Body Mass Index follow-up plan has been documented for the patient 09/10/2022 11:09 AM EDT documented as of this encounter Care Teams Concrete Handler Relationship Specialty Start Date End Date Michele Wright MD [address] [place] [address] PCP - General 10/11/20 Edgar Szymanski MD [address] [facility] [address] [place] [address] Radiation Oncologist Radiation Therapy 03/14/20 4 Shun Hurst MD [address] [place] [address] Surgeon Neurosurgery 02/24/21 Divine Carpenter MD [address] [place] [address] Medical Oncologist Medical Oncology 06/13/21 documented as of this encounter
--- OUTSIDE RECORDS SUMMARY | 2024-05-03 13:38 | XMS_ITS | Encounter Summary ---
Author Organization Healthcare Address [address] [place] [address] Care Team Providers Care Truck Terminal Manager Name Role Phone Michele Wright MD Primary Care Provider + [phone] Edgar Szymanski MD Unavailable [phone] Shun Hurst MD Unavailable [phone] Divine Carpenter MD Unavailable [phone] Encounter Details Date Type Department Care Team (Latest Contact Info) Description 03/16/2022 Travel Social History Tobacco Use Types Packs/Day [...] suspected to have Coronavirus/COVID-19? No / Unsure 03/16/2022 10:29 AM EDT documented as of this encounter Plan of Treatment Upcoming Encounters Date Type Department Care Team (Late st Contact Info) Description 07/17/2024 12:30 PM EST Clinical Support Pav CC Head, Neck & Respiratory [address] [facility], [address]nd [place] [address] 07/17/2024 1:30 PM EST Appointment [facility] Radiology [address] [place] [phone] 07/20/2024 2:50 PM EST Office Visit Pav CC Head, Neck & Respiratory [address] [facility], [address] [place] [phone] Divine Carpenter MD [address] [facility] [address] [facility] [address] [place] [phone] documented as of this encounter Visit Diagnoses Not on filedocumented in this encounter Additional Health Concerns Assessment Noted Time A fall risk assessment has been complete d for the patient 03/16/2022 10:36 AM EDT documented as of this encounter Care Teams Truck Terminal Manager Relationship Specialty Start Date End Date Michele Wright MD [address] [place] [address] PCP - General 10/11/20 Edgar Szymanski MD [address] [facility] [address] [place] [phone] Radiation Oncologist Radiation Therapy 03/14/20 4 Shun Hurst MD [address] [facility] [address] [place] [phone] Surgeon Neurosurgery 02/24/21 Divine Carpenter MD [address] [facility] [address] [facility] [address] [place] [address] Medical Oncologist Medical Oncology 06/13/21 documented as of this encounter
--- OUTSIDE RECORDS SUMMARY | 2024-05-03 13:38 | XMS_ITS | Encounter Summary ---
Author Organization Healthcare Address [address] [place] [address] Care Team Providers Care Stuffer Name Role Phone Michele Wright MD Primary Care Provider + [phone] Edgar Szymanski MD Unavailable [phone] Shun Hurst MD Unavailable [phone] Divine Carpenter MD Unavailable [phone] Encounter Details Date Type Department Care Team (Latest Contact Info) Description 04/17/2022 Travel Social History Tobacco Use Types Packs/Day [...] suspected to have Coronavirus/COVID-19? No / Unsure 04/17/2022 10:43 AM EST documented as of this encounter Plan of Treatment Upcoming Encounters Date Type Department Care Team ([facility] st Contact Info) Description 07/17/2024 12:30 PM EST Clinical Support Pav CC Head, Neck & Respiratory [address] [facility], [address] [place] [address] 07/17/2024 1:30 PM EST Appointment [facility] Radiology [address] [place] [phone] 07/20/2024 2:50 PM EST Office Visit Pav CC Head, Neck & Respiratory [address] [facility], [address] [place] [phone] Divine Carpenter MD [address] [facility] [address] [facility] [address] [place] [address] documented as of this encounter Visit Diagnoses Not on filedocumented in this encounter Additional Health Concerns Assessment Noted Time A fall risk assessment has been complete d for the patient 03/16/2022 10:36 AM EDT documented as of this encounter Care Teams Stuffer Relationship Specialty Start Date End Date Michele Wright MD [address] [place] [address] PCP - General 10/11/20 Edgar Szymanski MD [address] [facility] [address] [place] [address] Radiation Oncologist Radiation Therapy 03/14/20 4 Shun Hurst MD [address] [facility] [address] [place] [address] Surgeon Neurosurgery 02/24/21 Divine Carpenter MD [address] [facility] [address] [facility] [address] [place] [address] Medical Oncologist Medical Oncology 06/13/21 documented as of this encounter
--- OUTSIDE RECORDS SUMMARY | 2024-05-03 13:38 | XMS_ITS | Encounter Summary ---
Author Organization [facility] Address [address] [place] [address] Care Team Providers Care Pricing Intern Name Role Phone Michele Wright MD Primary Care Provider + [phone] Edgar Szymanski MD Unavailable [phone] Shun Hurst MD Unavailable [phone] Divine Carpenter MD Unavailable [phone] Encounter Details Date Type Department Care Team (Late st Contact Info) Description 04/17/2022 11:00 AM EST Clinical Support Pav CC Head, Neck & Respiratory [address] [facility], [address]nd [place] [address] Ambika Ambriz RN AMB-HEAD NECK AND RESPIRATORY [...] AM EST documented as of this encounter Miscellaneous Notes * Significant Event - Ambika Ambriz RN - 04/17/2022 12:18 PM EST Alteplase instilled for 60 min. Good blood return. PORT flushed and heplocked. Needle removed and band aid applied. Patient will return in 3 weeks for flush. * Significant Event - Ambika Ambriz RN - 04/17/2022 11:13 AM EST Alteplase instilled at 1110. Patient to wait 1 hour and will reassess. documented in this encounter Plan of Treatment Upcoming Encounters Date Type Department Care Team (Late st Contact Info) Description 07/17/2024 12:30 PM EST Clinical Support Pav CC Head, Neck & Respiratory [address] [facility], [address] [place] [address] 07/17/2024 1:30 PM EST Appointment PAV G Radiology [address] [place] [address] 07/20/2024 2:50 PM EST Office Visit Pav CC Head, Neck & Respiratory [address] [facility], [address]nd [place] [address] Divine Carpenter MD [address] [facility] [address] [place] [address] documented as of this encounter Visit Diagnoses Not on filedocumented in this encounter Administered Medications Inactive Administered Medications - up to 3 most recent administrations Medication Order MAR Action Action Date Dose Rate Site alteplase (Cathflo Activase) injection 2 mg 2 mg, Intracatheter, Once, 1 dose, On Wed04/17/22 at 1130, Routine Given 04/17/2022 11:11 AM EST 2 mg Port documented in this encounter Additional Health Concerns Assessment Noted Time A fall risk assessment has been complete d for the patient 03/16/2022 10:36 AM EDT documented as of this encounter Care Teams Pricing Intern Relationship Specialty Start Date End Date Michele Wright MD [address] [id number] PCP - General 10/11/20 Edgar Szymanski MD [address] [facility] [address] [place] [address] Radiation Oncologist Radiation Therapy 03/14/20 4 Shun Hurst MD [address] [facility] [address] [place] [address] Surgeon Neurosurgery 02/24/21 Divine Carpenter MD [address] Diane Zuniga [facility] [address] [place] [address] Medical Oncologist Medical Oncology 06/13/21 documented as of this encounter
--- OUTSIDE RECORDS SUMMARY | 2024-05-03 13:38 | XMS_ITS | Encounter Summary ---
Author Organization Healthcare Address [address] [place], [place] [id number] Care Team Providers Care Associate Professor Of Pathology Name Role Phone Michele Wright MD Primary Care Provider + [phone] Edgar Szymanski MD Unavailable [phone] Shun Hurst MD Unavailable [phone] Divine Carpenter MD Unavailable [phone] Encounter Details Date Type Department Care Team (Late st Contact Info) Description 03/16/2022 Telephone Pav CC Head, Neck & Respiratory [address] [facility], [address]nd [place] [address] Divine Carpenter MD 800 [facility] [address] [place] [address] Social History Tobacco Use Types Packs/Day Years [...] suspected to have Coronavirus/COVID-19? No / Unsure 04/10/2022 3:07 PM EST documented as of this encounter Miscellaneous Notes * Telephone Encounter - Michele Mohr - 03/27/2022 11:41 AM EDT Patient Phone Message Reason for Call:patient receives neck products from [facility]. Needing a new script from Dr. Carpenter. Patient is currently out of products. For his neck. Needing the plugs. Best contact number and optimal time of day to reach caller:[phone] Note: Please do not reply to this message. Follow-up communication and further actions as a result of this message need to be communicated with the patient directly, if the patient is not active onMyChart. If the patient is active on MyChart, they will receive notification of the communication/outcome via MyChart. * Telephone Encounter - Earnestine Cope - 03/16/2022 1:14 PM EDT Patient Phone Message Reason for Call: called stating the received a bill from infusion services stating the patientwas sent home on a machine and they owe $2500. She states the patient has never been sent home on amachine. I asked her to call bioscripts back and get more detailed information about when the DOS was and what type of machine. Requesting a call back. Best contact number and optimal time of day to reach caller: Note: Please do not reply to this [...] Upcoming Encounters Date Type Department Care Team ([facility] st Contact Info) Description 07/17/2024 12:30 PM EST Clinical Support Pav CC Head, Neck & Respiratory [address] [place] [address] 07/17/2024 1:30 PM EST Appointment PAV G Radiology [address] [place] [address] 07/20/2024 2:50 PM EST Office Visit Pav CC Head, Neck & Respiratory [address] [facility], [address]nd [place] [address] Divine Carpenter MD [address] [facility] Diane Zuniga [facility] [address] [place] [address] documented as of this encounter Visit Diagnoses Not on filedocumented in this encounter Additional Health Concerns Assessment Noted Time A fall risk assessment has been complete d for the patient 03/16/2022 10:36 AM EDT documented as of this encounter Care Teams Associate Professor Of Pathology Relationship Specialty Start Date End Date Michele Wright MD [address] [place] [address] PCP - General 10/11/20 Edgar Szymanski MD [address] [facility] [address] [place] [address] Radiation Oncologist Radiation Therapy 03/14/20 4 Shun Hurst MD [address] [facility] [address] [place] [address] Surgeon Neurosurgery 02/24/21 Divine Carpenter MD [address] [facility] Diane Zuniga [facility] [address] [place] [address] Medical Oncologist Medical Oncology 06/13/21 documented as of this encounter
--- OUTSIDE RECORDS SUMMARY | 2024-05-03 13:38 | XMS_ITS | Encounter Summary ---
Author Organization [facility] Address [address] [place] [address] Care Team Providers Care Supervisor Pipe Finishing Name Role Phone Michele Wright MD Primary Care Provider + [phone] Edgar Szymanski MD Unavailable [phone] Shun Hurst MD Unavailable [phone] Divine Carpenter MD Unavailable [phone] Encounter Details Date Type Department Care Team (Late st Contact Info) Description 07/15/2022 1:15 PM EST Clinical Support Pav CC Head, Neck & Respiratory 800 [facility], [address]nd [place] [address] Ambika Ambriz RN AMB-HEAD NECK AND RESPIRATORY [...] Significant Event - Ambika Ambriz RN - 07/15/2022 5:05 PM EST Port accessed without complaint or issue. No blood return after flushed and heparin instilled. Order for cathflo received and cathflo instilled at 1328. After 45min and several attempts, good blood return was obtained. PORT flushed and heplocked and needle removed. Band aid applied. Patient was given standing orders to take locally to have PORT flushed every 4 weeks or per facility's protocol. Will have port accessed here in August prior to scans. Patient agreed with plan. documented in this encounter Plan of Treatment Upcoming Encounters Date Type Department Care Team (Late st Contact Info) Description 07/17/2024 12:30 PM EST Clinical Support Pav CC Head, Neck & Respiratory [address] [facility], [address] [place] [address] 07/17/2024 1:30 PM EST Appointment PAV G Radiology [address] [place] [address] 07/20/2024 2:50 PM EST Office Visit Pav CC Head, Neck & Respiratory [address] [facility], [address] [place] [address] Divine Carpenter MD 800 [facility] [address] [place] [address] documented as of this encounter Visit Diagnoses Not on filedocumented in this encounter Administered Medications Inactive Administered Medications - up to 3 most recent administrations Medication Order MAR Action Action Date Dose Rate Site alteplase (Cathflo Activase) injection 2 mg 2 mg, Intracatheter, Once, 1 dose, On Wed07/15/22 at 1345, Routine Given 07/15/2022 1:28 PM EST 2 mg Port documented in this encounter Additional Health Concerns Assessment Noted Time A fall risk assessment has been complete d for the patient 06/11/2022 10:00 AM EST A Body Mass Index follow-up plan has been documented for the patient 07/15/2022 1:51 PM EST documented as of this encounter Care Teams Supervisor Pipe Finishing Relationship Specialty Start Date End Date Michele Wright MD [address] [place] [address] PCP - General 10/11/20 Edgar Szymanski MD 800 [facility] [address] [place] [address] Radiation Oncologist Radiation Therapy 03/14/20 4 Shun Hurst MD [address] [facility] [address] [place] [address] Surgeon Neurosurgery 02/24/21 Divine Carpenter MD [address] Diane Zuniga [facility] [address] [place] [address] Medical Oncologist Medical Oncology 06/13/21 documented as of this encounter
--- OUTSIDE RECORDS SUMMARY | 2024-05-03 13:38 | XMS_ITS | Encounter Summary ---
Author Organization Healthcare Address [address] [place] [address] Care Team Providers Care Rail Grinder Name Role Phone Michele Wright MD Primary Care Provider + [phone] Edgar Szymanski MD Unavailable [phone] Shun Hurst MD Unavailable [phone] Divine Carpenter MD Unavailable [phone] Reason for Visit * Reason Comments Post-op Encounter Details Date Type Department Care Team (Late st Contact Info) Description 04/10/2022 3:20 PM EST [facility] [address] [place] [address] Gil Hernandez MD [address] [place] [address] Dysphagia, pharyngeal (Primary Dx); History of laryngectomy Social History Tobacco Use Types Packs/Day Years [...] PM EST documented as of this encounter Last Filed Vital Signs Vital Sign Reading Time Taken Comments Blood Pressure 134/75 04/10/2022 3:53 PM EST Pulse 72 04/10/2022 3:53 PM EST Temperature - - Respiratory Rate - - Oxygen Saturation - - Inhaled Oxygen Concentration - - Weight - - Height - - Body Mass Index - - documented in this encounter Miscellaneous Notes * Progress Notes - Gil Hernandez MD - 04/10/2022 3:20 PM EST I had the pleasure of seeing Anibal Barreto today, who is a 56 y.o. male that returns to the clinic for follow-up after his esophageal super dilation for his swallowing. He has a laryngectomy and does not have any feeding tube. He is still limited in terms of bulkier solids, but he is able toget down more things now since the dilation. He is satisfied currently. Visit Vitals BP 134/75 Pulse 72 Smoking Status Former Allergies Allergen Reactions Cetuximab Anaphylaxis SOA, hypotension, after 9 ml of drug Docetaxel Rash, Shortness of breath and Unknown Patient very dyspnic, flushed, severe back pain. Patient very dyspnic, flushed, severe back pain. Patient very dyspnic, flushed, severe back pain. Methadone Rash and Other entire 14 point ROS was negative with the exception of those listed in the HPI General: patient is awake, nontoxic appearing, and in no acute distress. Skin: No overtly ulcerated, cellulitic, or indurated lesions of the head or neck. Head: Normocephalic and atraumatic. Sinuses are nontender to palpation. Ears: The pinnas are well formed. External auditory canals are nonstenotic without cerumen impaction bilaterally. Tympanic membranes are intact bilaterally without evidence of effusion or active infection appreciated. Eyes: Extraocular muscles are intact. The sclera and conjunctiva are normal. Pupils are equal and reactive to light without evidence of afferent pupillary defect. No ptosis is appreciated. Nose: The nasal dorsum is without scar or deformity. No mucopurulence or polyps are appreciated. The nasal airways are patent bilaterally. Oral cavity: No mucosal masses or lesions are appreciated. Floor of mouth is soft and the tongue has full range of motion. There is appropriate incisor opening without trismus. There are no fasciculations of the tongue. Oropharynx: No mucosal masses or lesions are appreciated. Base of tongue is soft and the palate elevates symmetrically without draping. The uvula is midline. Neck: The neck is soft and supple. No crepitus, masses, or lymphadenopathy are appreciated. The trachea is in midline. Stoma is clean. Circulatory: regular rate and rhythm, pulses 2+ bilaterally Pulmonary: no wheezing, no stridor Neuro: CN II-XII intact, gait normal A/P RTC as needed and contact us should swallowing worsen. documented in this encounter Plan of Treatment Upcoming Encounters Date Type Department Care Team (Late st Contact Info) Description 07/17/2024 12:30 PM EST Clinical Support Pav CC Head, Neck & Respiratory [address] [facility], [address] [place] [address] 07/17/2024 1:30 PM EST Appointment P[facility] G Radiology [address] [place] [address] 07/20/2024 2:50 PM EST Office Visit Pav CC Head, Neck & Respiratory [address] [facility], [address] [place] [address] Dviine Carpenter MD [address] [facility] Diane [facility] [address] [place] [address] documented as of this encounter Visit Diagnoses Diagnosis Dysphagia, pharyngeal- Primary Dysphagia, pharyngeal phase History of laryngectomy Other postprocedural status documented in this encounter Additional Health Concerns Assessment Noted Time A fall risk assessment has been complete d for the patient 03/16/2022 10:36 AM EDT documented as of this encounter Care Teams Rail Grinder Relationship Specialty Start Date End Date Michele Wright MD [address] [place] [address] PCP - General 10/11/20 Edgar Szymanski MD [address] [facility] [address] [place] [address] Radiation Oncologist Radiation Therapy 03/14/20 4 Shun Hurst MD [address] [place] [address] Surgeon Neurosurgery 02/24/21 Divine Carpenter MD [address] Diane Zuniga [facility] [address] [place] [address] Medical Oncologist Medical Oncology 06/13/21 documented as of this encounter
--- OUTSIDE RECORDS SUMMARY | 2024-05-03 13:38 | XMS_ITS | Encounter Summary ---
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) Procedures CT Abdomen w IV Contrast Bailey Ellis MD [address] [address] Phone: tel: fax: Referral ID Status Reason Start Date Expiration Date Visits Re quested Visits Authorized [id number] Closed 06/10/2022 12/10/2023 1 1 * Imaging (Routine) - Closed Specialty Diagnoses / Procedures Referred By Contac Referred To Contact Radiology Diagnoses 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) Procedures CT Soft Tissue Neck w IV Contrast Bailey Ellis MD [address] [address] Phone: tel: fax: Referral ID Status Reason Start Date Expiration Date Visits Re quested Visits Authorized [id number] Closed 06/10/2022 12/10/2023 1 1 * Imaging (Routine) - Closed Specialty Diagnoses / Procedures Referred By Contac t Referred To Contact Radiology Diagnoses 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) Procedures CT Chest w IV Contrast Bailey Ellis MD [address] [facility] Diane Zun[address] [address] Phone: tel: fax: Referral ID Status Reason Start Date Expiration Date Visits Re quested Visits Authorized [id number] Closed 06/10/2022 12/10/2023 1 1 Reason for Visit * Reason Comments Follow-up Encounter Details Date Type Department Care Team (Late st Contact Info) Description 06/11/2022 10:10 AM EST Office Visit Pav CC Head, Neck & Respiratory [address] [facility], [address]nd [place] [address] Bailey Ellis MD [address] [facility] [address] [phone] 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 No / Unsure 06/11/2022 9:50 AM EST documented as of this encounter Last Filed Vital Signs Vital Sign Reading Time Taken Comments Blood Pressure 136/70 06/11/2022 10:01 AM EST Pulse 61 06/11/2022 10:01 AM EST Temperature 36.8 ??C (98.2 ??F) 06/11/2022 10:[address] Respiratory Rate 16 06/11/2022 10:01 AM EST Oxygen Saturation 91% 06/11/2022 10:01 AM EST Inhaled Oxygen Concentration - - Weight 103 kg (227 lb 15.3 oz) 06/11/2022 10:01 AM EST Height 176 cm (5' 9.29 ) 06/11/2022 10:01 AM EST Body Mass Index 33.38 06/11/2022 10:01 AM EST documented in this encounter Miscellaneous Notes * Progress Notes - Bailey Ellis MD - 06/11/2022 10:10 AM EST MEDICAL ONCOLOGY FOLLOW-UP NOTE Patient Information Patient Name: Anibal Barreto Date of : 1965 REFERRING PHYSICIAN: Michele Wright MD Encounter Date: 06/11/2022 Treatment Diagnosis: Cancer Staging Cancer of larynx (CMS/HCC) Staging form: Larynx - Glottis, AJCC 8th Edition - Clinical stage from 02/19/2017: Stage ZULAY (cT3, cN2c, cM0) - Signed by Bailey Ellis MD on 10/14/2020 - Pathologic stage from 03/22/2018: Stage III (rpT3, pN0, cM0) - Signed by Bailey Ellis MD on 10/14/2020 - Pathologic stage from 11/21/2019: Stage IVC (rpTX, pNX, pM1) - Signed by Bailey Ellis MD on 10/14/2020 History of Present Illness: [...] 8th Edition, Pathologic: Stage IVC. he returns after treatment of head and neck cancer. He is feeling well and has no new complaints. Oncology History Overview Note Mr Anibal Barreto [...] with adenopathy in levels 2 through 4 [id number] 3 PET/CT scan dated 02/19/2017 showed an intensely hypermetabolic epiglottis and mucosa extending to the true vocal cords, slightly asymmetric involving the right pyriform sinus and aryepiglottic fold with 27 4 mSUV along with intensely hypermetabolic bilateral cervical lymph nodes 4 A biopsy performed here at [facility] during direct examination on 03/03/2017 [...] limited neck dissection with ALT free flap, [id number] 7 Subsequent followup scans were negative for [...] Cancer of larynx ([facility]/HCC) 02/19/2017 Cancer Staged Staging form: Larynx - Glottis, AJCC 8th Edition, Clinical stage from 02/19/2017: Stage ZULAY (cT3, cN2c, cM0) - Signed by Bailey Ellis MD on 10/14/2020 03/18/2017 Initial Diagnosis Cancer of larynx ([facility]/HCC) 03/22/2018 Cancer Staged Staging form: Larynx - Glottis, AJCC 8th Edition, Pathologic stage from 03/22/2018: Stage III (rpT3, pN0, cM0) - Signed by Bailey Ellis MD on 10/14/2020 11/21/2019 Cancer Staged Staging form: Larynx - Glottis, AJCC 8th Edition, Pathologic stage from 11/21/2019: Stage IVC (rpTX,pNX, pM1) - Signed by Bailey Ellis MD on 10/14/2020 03/14/2020 - 11/24/2020 Research Study Participant [id number]: Pembrolizumab Every 42 Days Every 84 Days Plan Provider: Bailey Ellis MD Treatment goal: Palliative Line of treatment: Second Line Associated studies: Priming Immunotherapy in Advanced Disease with Radiation 11/26/2020 - Radiation Therapy The patient saw No care valve steamer to display for radiation treatment. This is the current list ofradiation treatment: Radiation Treatments No radiation treatments to show. (Treatments may have been administered in another system.) 12/09/2020 - Radiation Therapy The patient saw No care valve steamer to display for radiation treatment. This is [...] Radiation Therapy The patient saw No care valve steamer to display for radiation treatment. This is the current list ofradiation treatment: Radiation Treatments No radiation treatments to show. (Treatments may have been administered in another system.) 11/26/2020 Initial Diagnosis Secondary malignant neoplasm of chest wall (CMS/HCC) 12/09/2020 - Radiation Therapy The patient saw No care valve steamer to display for radiation treatment. This is the current list ofradiation treatment: Radiation Treatments No radiation treatments to show. (Treatments may have been administered in another system.) Currently, he denies fever, or chills, dysuria, hematuria, constipation, melena, diarrhea, hematochezia, hematemesis, abdominal pain, shortness of breath, cough, sputum production. Problem List and Medications Reviewed in this encounter by me personally Objective Performance Status 0: Fully active, able to carry on all pre-disease performance without restriction Blood pressure 136/70, pulse 61, temperature 36.8 ??C (98.2 ??F), temperature source Oral, resp. rate 16, height 1.76 m (5' 9.29 ), weight 103 kg (227 lb 15.3 oz), SpO2 91 %. EXAM Physical Exam [...] cancer related drug toxicity and treatment related usp toxicity CBC WBC 4.86 Hgb 14.7 PLT 148 HCT 45.7 Lab Results Component Value Date NEUTROABS 3.49 06/09/2022 BMPL Na 138 Cl 100 BUN 12 Gluc 101 K 3.8 Co2 30 Creat 0.85 LIVER FUNCTION TESTING Tot Prot 7.3 AST 16 Tot bili 0.5 ALT 12 Alkphos 80 Ca 9.5 Mg 1.6 Phos 3.9 Lab Results Component Value Date TSH 1.27 06/09/2022 RADIOLOGY: I visualized the recent imaging below and discussed the current radiology findings with the patientin detail and provided the report to the patient and answered all questions. CT Soft Tissue Neck w IV Contrast Result Date: 06/09/2022 Impression: Extensive postsurgical and radiation effects as detailed above. No tumor recurrence or cervical adenopathy. CRITICAL RESULT: No. COMMUNICATION: Per this written report. Dictated by Mya Rodriguez MD on 06/09/2022 11:59 AM Signed by Mya Rodriguez MD on 06/09/2022 8:[address] Chest w IV Contrast Result Date: 06/09/2022 Impression: No evidence of disease progression within the chest, abdomen and pelvis. Please see separate report for CT soft tissue neck. CRITICAL RESULT: No. COMMUNICATION: Per this written report. By electronically signing this report, I, the attending physician, attest that I have personally reviewed the images/data for the above examination(s) and agree with the final edited report. Dictated by Jose Kothari MD on 06/09/2022 1:10 PM Signed by Brianna Carranza MD on 06/09/2022 2:[address] Abdomen Pelvis w IV Contrast Result Date: 06/09/2022 Impression: No evidence of disease progression within the chest, abdomen and pelvis. Please see separate report for CT soft tissue neck. CRITICAL RESULT: No. COMMUNICATION: Per this written report. By electronically signing this report, I, the attending physician, attest that I have personally reviewed the images/data for the above examination(s) and agree with the final edited report. Dictated by Jose Kothari MD on 06/09/2022 1:10 PM Signed by Brianna Carranza MD on 06/09/2022 2:06 PM Assessment/Plan 1. Cancer management : Cancer [...] from radiation and systemic cancer therapy. 5. COVID infection - now recovered - s/p Evusheld Bailey Ellis MD Orders Placed This Encounter Procedures CT Chest w IV Contrast CT Soft Tissue Neck w IV Contrast CT Abdomen w IV Contrast Thyroid Stimulating Hormone, Plasma Comprehensive Metabolic Panel, Plasma CBC and Differential documented in this encounter Plan of Treatment Upcoming Encounters Date Type Department Care Team (Late st Contact Info) Description 07/17/2024 12:30 PM EST Clinical Support Pav CC Head, Neck & Respiratory [address] [facility], [address] [place] [address] 07/17/2024 1:30 PM EST Appointment [facility] Radiology [address] [place] [address] 07/20/2024 2:50 PM EST Office Visit Pav CC Head, Neck & Respiratory [address] [facility] [place] [address] Bailey Ellis MD [address] [facility] [address] [place] [address] documented as of this encounter Results * CT Abdomen w [...] W IV CONTRAST ordered by BAILEY ELLIS, [id number] CLINICAL INDICATION: Laryngeal cancer. TECHNIQUE: Multiple CT [...] CHEST W IV CONTRAST ordered by BAILEY ELLIS,[id number] CLINICAL INDICATION: Laryngeal cancer. TECHNIQUE: Multiple CT [...] W IV CONTRAST ordered by BAILEY ELLIS, [id number] CLINICAL INDICATION: Laryngeal cancer status post chemoradiation [...] W IV CONTRAST ordered by BAILEY MOREIRA, [id number] CLINICAL INDICATION: Laryngeal cancer status post chemoradiation [...] Mya Rodriguez MD on 09/08/2022 9:08 PM us Bailey Ellis MD IMG CT [...] W IV CONTRAST ordered by BAILEY ELLIS, [id number] CLINICAL INDICATION: Laryngeal cancer. TECHNIQUE: Multiple CT [...] CHEST W IV CONTRAST ordered by BAILEY ELLIS,[id number] CLINICAL INDICATION: Laryngeal cancer. TECHNIQUE: Multiple CT [...] Resu lt * (ABNORMAL) CBC and Differential (09/08/2022 12:16 PM EDT) WBC Count 4.97 3.70 - 10.30 10*3/uL LAB HEMATOLOGY METHOD 09/08/2022 12:36 PM EDT [facility] RBC Count 5.20 4.60 - 6.10 10*6/uL LAB HEMATOLOGY METHOD 09/08/2022 12:36 PM EDT [facility] HGB 14.6 13.7 - 17.5 g/dL LAB HEMATOLOGY METHOD 09/08/2022 12:36 PM EDT [facility] HCT 45.0 40.0 - 51.0 % LAB HEMATOLOGY METHOD 09/08/2022 12:36 PM EDT [facility] Platelet Count 158 155 - 369 10*3/uL LAB HEMATOLOGY METHOD 09/08/2022 12:36 PM EDT [facility] MCV 87 79 - 98 fL LAB HEMATOLOGY METHOD 09/08/2022 12:36 PM EDT [facility] MCH 28.1 26.0 - 32.0 pg LAB HEMATOLOGY METHOD 09/08/2022 12:36 PM EDT [facility] MCHC 32.4 30.7 - 35.5 g/dL LAB HEMATOLOGY METHOD 09/08/2022 12:36 PM EDT [facility] RDW 13.4 11.5 - 14.5 % LAB HEMATOLOGY METHOD 09/08/2022 12:36 PM EDT [facility] MPV 10.3 8.8 - 12.5 fL LAB HEMATOLOGY METHOD 09/08/2022 12:36 PM EDT [facility] nRBC 0.0 <=0.0 per 100 WBCs LAB HEMATOLOGY METHOD 09/08/2022 12:36 PM EDT [facility] Differential Type Automated LAB HEMATOLOGY METHOD 09/08/2022 12:36 PM EDT [facility] Neutrophils % 74.0 % LAB HEMATOLOGY METHOD 09/08/2022 12:36 PM EDT [facility] Lymphocytes % 13.0 % LAB HEMATOLOGY METHOD 09/08/2022 12:36 PM EDT [facility] Monocytes % 11.0 % LAB HEMATOLOGY METHOD 09/08/2022 12:36 PM EDT [facility] Eosinophils % 2.0 % LAB HEMATOLOGY METHOD 09/08/2022 12:36 PM EDT [facility] Basophils % 0.0 % LAB HEMATOLOGY METHOD 09/08/2022 12:36 PM EDT [facility] Immature Granulocytes % 0.0 % LAB HEMATOLOGY METHOD 09/08/2022 12:36 PM EDT [facility] Neutrophils Absolute 3.71 1.60 - 6.10 10*3/uL LAB HEMATOLOGY METHOD 09/08/2022 12:36 PM EDT [facility] Lymphocytes Absolute 0.63(L) 1.20 - 3.90 10*3/uL LAB HEMATOLOGY METHOD 09/08/2022 12:36 PM EDT [facility] Monocytes Absolute 0.52 0.30 - 0.90 10*3/uL LAB HEMATOLOGY METHOD 09/08/2022 12:36 PM EDT [facility] Eosinophils Absolute 0.09 0.00 - 0.50 10*3/uL LAB HEMATOLOGY METHOD 09/08/2022 12:36 PM EDT [facility] Basophils Absolute 0.01 0.00 - 0.10 10*3/uL LAB HEMATOLOGY METHOD 09/08/2022 12:36 PM EDT [facility] Immature Granulocytes Absolute 0.01 0.00 - 0.06 10*3/uL LAB HEMATOLOGY METHOD 09/08/2022 12:36 PM EDT [facility] Blood Venous blood specimen / Unknown Venipuncture / Unknown 09/08/2022 12:16 PM EDT 09/08/2022 12:27 PM EDT [facility] - 09/08/2022 12:36 PM EDT Therapeutic decision making should be based on absolute values, rather than percentages. us Bailey Ellis MD LAB BLOOD ORDERABLES Final R esult [facility] [address] [place] [address] * (ABNORMAL) Comprehensive Metabolic Panel, Plasma (09/08/2022 12:16 PM EDT) Glucose, Plasma 93 74 - 99 mg/dL 09/08/2022 1:35 PM EDT [facility] BUN, Plasma 18 7 - 21 mg/dL 09/08/2022 1:35 PM EDT [facility] Creatinine, Plasma 0.93 0.80 - 1.30 mg/dL 09/08/2022 1:35 PM EDT [facility] BUN/Creatinine Ratio 19 09/08/2022 1:35 PM EDT [facility] Sodium, Plasma 137 136 - 145 mmol/L 09/08/2022 1:35 PM EDT [facility] Potassium, Plasma 3.8 3.7 - 4.8 mmol/L 09/08/2022 1:35 PM EDT [facility] Chloride, Plasma 96(L) 97 - 107 mmol/L 09/08/2022 1:35 PM EDT [facility] CO2, Plasma 30(H) 22 - 29 mmol/L 09/08/2022 1:35 PM EDT [facility] Anion Gap 11 6 - 16 mmol/L 09/08/2022 1:35 PM EDT [facility] Total Calcium, Plasma 9.6 8.9 - 10.2 mg/dL 09/08/2022 1:35 PM EDT [facility] Total Protein 7.7 6.3 - 7.9 g/dL 09/08/2022 1:35 PM EDT [facility] Albumin, Plasma 4.3 3.5 - 5.2 g/dL 09/08/2022 1:35 PM EDT [facility] AST, Plasma 18 12 - 40 U/L 09/08/2022 1:35 PM EDT [facility] ALT, Plasma 9(L) 11 - 41 U/L 09/08/2022 1:35 PM EDT [facility] Alkaline Phosphatase, Plasma 79 40 - 115 U/L 09/08/2022 1:35 PM EDT [facility] Total Bilirubin, Plasma 1.0 0.2 - 1.1 mg/dL 09/08/2022 1:35 PM EDT [facility] eGFRcr 96.4 mL/min/1.7 3m*2 09/08/2022 1:35 PM EDT [facility] Comment: Reported eGFRcr in mL/min/1.73m2 is based the CKD-EPI 2021 equation that does not use a race coefficient. Effective 12/24/21 our laboratory changed the eGFR calculation to the CKD-EPI 2021 equation from the previously reported eGFR, based on the MDRD equation. ??For comparisons between the two equations, please see laboratory website: ??[email or web address] Blood Venous blood specimen / Unknown Venipuncture / Unknown 09/08/2022 12:16 PM EDT 09/08/2022 12:57 PM EDT Bailey Ellis MD LAB BLOOD ORDERABLES Final R esult Performing Organization Address City/[facility] Co de Phone Number [facility] [address] [place] [address] * Thyroid Stimulating Hormone, Plasma (09/08/2022 12:16 PM EDT) Thyroid Stimulating Hormone, Plasma 0.60 0.40 - 4.20 uIU/mL 09/08/2022 1:35 PM EDT [facility] Blood Venous blood specimen / Unknown Venipuncture / Unknown 09/08/2022 12:16 PM EDT 09/08/2022 12:57 PM EDT Bailey Ellis MD LAB BLOOD ORDERABLES Final R esult [facility] [address] [place] [address] documented in this encounter Visit Diagnoses Diagnosis 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- Primary Secondary malignant neoplasm of chest wall (CMS/HCC) Neoplasm related pain Neoplasm related pain (acute) (chronic) 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, unspecified site 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, unspecified site documented in this encounter Additional Health Concerns Assessment Noted Time A fall risk assessment has been complete d for the patient 06/11/2022 10:00 AM EST documented as of this encounter Care Teams Commissary Manager Relationship Specialty Start Date End Date Michele Wright MD [address] [place] [address] PCP - General 10/11/20 Edgar Szymanski MD [id number] [place] [phone] Radiation Oncologist Radiation Therapy 03/14/20 4 Shun Hurst MD [address] [place] [phone] Surgeon Neurosurgery 02/24/21 Bailey Ellis MD [address] [place] [phone] Medical Oncologist Medical Oncology 06/13/21 documented as of this encounter
--- OUTSIDE RECORDS SUMMARY | 2024-05-03 13:38 | XMS_ITS | Encounter Summary ---
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) Procedures CT Soft Tissue Neck w IV Contrast Bailey Ellis MD [address] [address] Phone: tel: fax: Referral ID Status Reason Start Date Expiration Date Visits Re quested Visits Authorized [id number] Closed 12/06/2021 06/07/2023 1 1 * Imaging (Routine) - Closed Specialty Diagnoses / Procedures Referred By Contwesley Referred To Contact Radiology Diagnoses 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) Procedures CT Chest w IV Contrast Bailey Ellis MD [address] [address] Phone: tel: fax: Referral ID Status Reason Start Date Expiration Date Visits Re quested Visits Authorized [id number] Closed 12/06/2021 06/07/2023 1 1 Reason for Visit * Imaging (Routine) - Closed Specialty Diagnoses / Procedures Referred By Contac t Referred To Contact Radiology Diagnoses 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) Procedures CT Chest w IV Contrast Bailey Ellis MD 800 [facility] [address] [place] [address] Phone: tel: fax: Referral ID Status Reason Start Date Expiration Date Visits Re quested Visits Authorized [id number] Closed 12/06/2021 06/07/2023 1 1 Encounter Details Date Type Department Care Team (Latest Contact Info) Description 03/09/2022 10:04 AM EDT - 03/09/2022 11:59 PM EDT Hospital Encounter [facility] Radiology [address] [place] [address] Secondary malignant neoplasm of chest wall (CMS/HCC); 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 No / Unsure 03/09/2022 9:12 AM EDT documented as of this encounter Discharge Instructions * Attachments The following attachments cannot be sent through Care Everywhere. * Contrast Imaging Discharge Instructions ([place]) ([place]zech) documented in this encounter Medications at Time [...] hours if needed for severe pain. 05/17/2023 prochlorperazine (Compazine) 10 MG tabletIndication s:Cancer of [...] CC Head, Neck & Respiratory 800 [facility], [address]nd [place] [address] 07/17/2024 1:30 PM EST Appointment [facility] Radiology [address] [place] [address] 07/20/2024 2:50 PM EST Office Visit Pav CC Head, Neck & Respiratory [address] [facility], [address]nd [place] [address] Bailey Ellis MD 800 [facility] [address] [place] [address] documented as of this encounter Procedures Procedure Name Priority Date/Time Associated Diagnosis Comments CT CHEST W IV CONTRAST Routine 03/09/2022 10:44 AM EDT 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 Postoperative changes from prior total laryngectomy, bilateral neck dissection and a tracheostomy in situ. Treatment related changes from prior radiation therapy. 2. No asymmetric soft tissue or lymphadenopathy is seen to suggest neoplastic recurrence. No significant interval change compared to prior CT exam dated 12/04/2021 and 08/14/2021. CRITICAL RESULT: No. COMMUNICATION: Per this written report. 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 Also diagnosed with right lung cancer in 2019, status post resection, chemoradiation. TECHNIQUE: Helical images were obtained through the neck, and reconstructed in the axial plane on bone and soft tissue algorithm at multiple slice thicknesses. Coronal and sagittal reformatted images were created. 100 mL of Omnipaque 300 were administered intravenously. Total DLP (Dose-Length Product): 329.7 mGycm. Please note: The reported value represents the total of one or more individual components during the CT acquisition on this date and at this time, and as such, the same value may appear in more than one CT report depending on the interpreting/reporting physicians. COMPARISON: CT neck dated 12/04/2021, 08/14/2021. FINDINGS: Diagnostic Quality: Adequate. Soft Tissues: No masses are present within the soft tissues of the neck. There are postoperative changes from prior bilateral neck dissection, total laryngectomy with a tracheostomy in place. There is symmetric nonspecific soft tissue adjacent to the tracheostomy site, likely granulation / scar tissue. There is thickening of the fascial planes and reticulation of the fat planes of the neck compatible with treatment related changes. No abnormal enhancing soft tissue is seen to suggest neoplastic recurrence. ?? Lymph Nodes: No significant cervical adenopathy is present. There are a few scattered subcentimeter lymph nodes in the neck bilaterally which are not enlarges further imaging criteria. Pharynx/Larynx: Postoperative changes from prior total laryngectomy. No asymmetric soft tissue is seen in the pharyngeal tissues to suggest neoplastic recurrence. Oral Cavity: No large masses are present within the oral cavity within the limitations of the study. Note is made of atrophy of the right tongue, likely due to treatment-related changes. Parapharyngeal Space: No lesions are present within the parapharyngeal space. There is reticulation of the fat planes to be radiation related changes. Salivary Glands: The parotid glands are unremarkable. There is fat atrophy of bilateral submandibular glands. Thyroid: No focal thyroid lesions are present, within the limitations of the study. Note is made of partial thyroidectomy due to the tracheostomy. Orbits/Paranasal Sinuses/Skull Base: No orbital masses are present within the visualized portions of the orbits. The visualized paranasal sinuses are grossly clear. Within the skull base, there is no focal lesion or destructive process. 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 No bony destructive lesion is present. Thoracic Inlet and Lung Apices: ??Please see the separate report for the chest CT scan for discussion of intrathoracic findings. Other Findings: None. Procedure Note Veronica Mejia MD - 03/09/2022 Exam/Procedure: CT SOFT TISSUE NECK W IV CONTRAST ordered by BAILEY MOREIRA, [id number] CLINICAL INDICATION: 56-year-old patient with carcinoma of the epiglottis and supraglotticlarynx, status post concurrent chemoradiation, total laryngectomy withlimited neck dissection with flap reconstruction. Also diagnosed withright lung cancer in 2019, status post resection, chemoradiation. TECHNIQUE: Helical images were obtained through the neck, and reconstructed in theaxial plane on bone and soft tissue algorithm at multiple slicethicknesses. Coronal and sagittal reformatted images were created. 100 mLof Omnipaque 300 were administered intravenously. Total DLP (Dose-Length Product): 329.7 mGycm. Please note: The reportedvalue represents the total of one or more individual components during theCT acquisition on this date and at this time, and as such, the same valuemay appear in more than one CT report depending on theinterpreting/reporting physicians. COMPARISON: CT neck dated 12/04/2021, 08/14/2021. FINDINGS: Diagnostic Quality: Adequate. Soft Tissues: No masses are present within the soft tissues of the neck.There are postoperative changes from prior bilateral neck dissection,total laryngectomy with a tracheostomy in place. There is symmetricnonspecific soft tissue adjacent to the tracheostomy site, likelygranulation / scar tissue. There is thickening of the fascial planes andreticulation of the fat planes of the neck compatible with treatmentrelated changes. No abnormal enhancing soft tissue is seen to suggestneoplastic recurrence. Lymph Nodes: No significant cervical adenopathy is present. There are afew scattered subcentimeter lymph nodes in the neck bilaterally which arenot enlarges further imaging criteria. Pharynx/Larynx: Postoperative changes from prior total laryngectomy. Noasymmetric soft tissue is seen in the pharyngeal tissues to suggestneoplastic recurrence. Oral Cavity: No large masses are present within the oral cavity within thelimitations of the study. Note is made of atrophy of the right tongue,likely due to treatment-related changes. Parapharyngeal Space: No lesions are present within the parapharyngealspace. There is reticulation of the fat planes to be radiation relatedchanges. Salivary Glands: The parotid glands are unremarkable. There is fat atrophyof bilateral submandibular glands. Thyroid: No focal thyroid lesions are present, within the limitations ofthe study. Note is made of partial thyroidectomy due to thetracheostomy. Orbits/Paranasal Sinuses/Skull Base: No orbital masses are present withinthe visualized portions of the orbits. The visualized paranasal sinusesare grossly clear. Within the skull base, there is no focal lesion ordestructive process. Bones/Spine: There are degenerative changes of the spine with ossificationof the posterior longitudinal ligament at C2-C3, C4, C5 and C6 level. Nobony destructive lesion is present. Thoracic Inlet and Lung Apices: Please see the separate report for thechest CT scan for discussion of intrathoracic findings. Other Findings: None. IMPRESSION: 1. Postoperative changes from prior total laryngectomy, bilateral neckdissection and a tracheostomy in situ. Treatment related changes fromprior radiation therapy. 2. No asymmetric soft tissue or lymphadenopathy is seen to suggestneoplastic recurrence. No significant interval change compared to prior CT exam dated 12/04/2021nd 08/14/2021. CRITICAL RESULT: No. COMMUNICATION: Per this written report. Dictated by Veronica Mejia MD on 03/09/2022 6:31 PM Signed by Veronica Mejia MD on 03/09/2022 6:46 PM us Bailey Ellis MD IMG CT PROCEDURES Final Resu lt * CT Chest w IV Contrast (03/09/2022 10:44 AM EDT) Anatomical Region Laterality Modality Chest Computed Tomogra phy Impressions 03/09/2022 11:37 AM EDT No evidence of thoracic progression. CRITICAL RESULT: No. COMMUNICATION: Per this written report. Dictated by Louie Liu MD on 03/09/2022 11:35 AM Signed by Louie Liu MD on 03/09/2022 11:37 AM Narrative 03/09/2022 11:37 AM EDT Exam/Procedure: CT CHEST W IV CONTRAST ordered by BAILEY ELLIS, [id number] CLINICAL INDICATION: Non-small cell lung cancer, metastatic, assess treatment response TECHNIQUE: Multiple CT helical images were obtained from thoracic inlet through upper abdomen with administration of IV contrast. 100 ??mL of Omnipaque-350 were administered intravenously. Total DLP (Dose-Length Product): 1010.41 mGy.cm. Please note: The reported value represents the total of one or more individual components during the CT acquisition on this date and at this time, and as such, the same value may appear in more than one CT report depending on the interpreting/reporting physicians. COMPARISON: December 04, 2021 FINDINGS: Mediastinum and Pleura: Laryngectomy. Esophageal speaking device in place. Patulous esophagus. No enlarging mediastinal adenopathy. Left chest wall Port-A-Cath tip at the superior vena cava. No pleural effusion. Lungs: Right apical bandlike scarring at site of prior wedge resection, similar to prior. Some peripheral fibrosis in the anterior right lung is similar to prior. Ill-defined lower lung groundglass nodularity, greatest on the left lower lobe is similar to comparison. No enlarging suspicious nodules. Upper Abdomen: No suspicious lesions in the partially visualized upper abdomen. Musculoskeletal: No suspicious lytic or sclerotic lesion. Procedure Note Louie Liu MD - 03/09/2022 Exam/Procedure: CT CHEST W IV CONTRAST ordered by BAILEY ELLIS,[id number] CLINICAL INDICATION: Non-small cell lung cancer, metastatic, assess treatment response TECHNIQUE: Multiple CT helical images were obtained from thoracic inlet through upperabdomen with administration of IV contrast. 100 mL of Omnipaque-350 wereadministered intravenously. Total DLP (Dose-Length Product): 1010.41 mGy.cm. Please note: The reportedvalue represents the total of one or more individual components during theCT acquisition on this date and at this time, and as such, the same valuemay appear in more than one CT report depending on theinterpreting/reporting physicians. COMPARISON: December 04, 2021 FINDINGS: Mediastinum and Pleura: Laryngectomy. Esophageal speaking device in place.Patulous esophagus. No enlarging mediastinal adenopathy. Left chest [id number]-[id number] tip at the superior vena cava. No pleural effusion. Lungs: Right apical bandlike scarring at site of prior wedge resection,similar to prior. Some peripheral fibrosis in the anterior right lung issimilar to prior. Ill-defined lower lung groundglass nodularity, greateston the left lower lobe is similar to comparison. No enlarging suspiciousnodules. Upper Abdomen: No suspicious lesions in the partially visualized upperabdomen. Musculoskeletal: No suspicious lytic or sclerotic lesion. IMPRESSION: No evidence of thoracic progression. CRITICAL RESULT: No. COMMUNICATION: Per this written report. Dictated by Louie Liu MD on 03/09/2022 11:35 AM Signed by Louie Liu MD on 03/09/2022 11:37 AM us Bailey Ellis MD IMG CT PROCEDURES Final Resu lt * POCT creatinine (03/09/2022 10:25 AM EDT) Creatinine, Point of Care 0.8 0.8 - 1.3 mg/dL 03/09/2022 10:35 AM EDT [facility] POCT eGFR 105 mL/min/1. 73m*2 03/09/2022 10:35 AM EDT [facility] Bobbin Doffer ID Bryant Wilson 03/09/2022 10:35 AM EDT [facility] Device ID [id number] 03/09/2022 10:35 AM EDT [facility] Comment 03/09/2022 10:35 AM EDT [facility]ALTH[facility]ARE [facility] Comment: Testing performed on i-STAT at the point of care. Testing performed on i-STAT at the point of care. Reported eGFRcr in mL/min/1.73m2 is based the CKD-EPI 2021 equation that does not use a race coefficient. Effective 12/24/21 our laboratory changed the eGFR calculation to the CKD-EPI 2021 equation from the previously reported eGFR, based on the MDRD equation. 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, unspecified site documented in this encounter Administered Medications Inactive Administered Medications - up to 3 most recent administrations Medication Order MAR Action Action Date Dose Rate Site heparin flush (porcine) 100 UNIT/ML injection 500 Units 500 Units, Intracatheter, Once as needed, Starting on Wed03/09/22 at 1050, Until Wed03/09/22 at 2249, Routine, Intraprocedure, line care Given 03/09/2022 10:57 AM EDT 500 Units iohexol (OMNIPaque) 350 MG/ML injection 100 mL 100 mL, Intravenous, Once in imaging, 1 dose, Starting on Wed03/09/22 at 1011, Until Wed03/09/22 at 1033, Routine, Imaging Protocol Orders Given 03/09/2022 10:33 AM EDT 100 mL documented in this encounter Additional Health Concerns Assessment Noted Time A fall risk assessment has been complete d for the patient 12/08/2021 1:20 PM EDT documented as of this encounter Care Teams Tariff Supervisor Relationship Specialty Start Date End Date Michele Wright MD [address] [place] [address] PCP - General 10/11/20 Edgar Szymanski MD [address] [facility] [address] [place] [address] Radiation Oncologist Radiation Therapy 03/14/20 4 Shun Hurst MD [address] [place] [address] Surgeon Neurosurgery 02/24/21 Bailey Ellis MD [address] [place] [address] Medical Oncologist Medical Oncology 06/13/21 documented as of this encounter
--- OUTSIDE RECORDS SUMMARY | 2024-05-03 13:38 | XMS_ITS | Encounter Summary ---
Author Organization [facility] Address [address] [place] [address] Care Team Providers Care Executor Of Estate Name Role Phone Michele Wright MD Primary Care Provider + [phone] Edgar Szymanski MD Unavailable [phone] Shun Hurst MD Unavailable [phone] Divine Carpenter MD Unavailable [phone] Encounter Details Date Type Department Care Team (Late st Contact Info) Description 05/04/2022 10:00 AM EST Clinical Support Pav CC Head, Neck & Respiratory 800 [facility], [address] [place] [address] Ambika Ambriz RN AMB-HEAD NECK AND RESPIRATORY [...] suspected to have Coronavirus/COVID-19? No / Unsure 05/04/2022 9:49 AM EST documented as of this encounter Miscellaneous Notes * Significant Event - Ambika Ambriz RN - 05/04/2022 10:45 AM EST PORT accessed without difficulty or complaint. Good blood return. Flushed and heplocked. Needle removed and band aid applied. Patient voiced no concerns and will return in 4-6 weeks for next flush. documented in this encounter Plan of Treatment Upcoming Encounters Date Type Department Care Team (Late st Contact Info) Description 07/17/2024 12:30 PM EST Clinical Support Pav CC Head, Neck & Respiratory 800 [facility], [address] [place] [address] 07/17/2024 1:30 PM EST Appointment [facility] G Radiology [address] [place] [address] 07/20/2024 2:50 PM EST Office Visit Pav CC Head, Neck & Respiratory [address] [facility], [address] [place] [address] Divine Carpenter MD [address] [facility] [address] [place] [phone] documented as of this encounter Visit Diagnoses Not on filedocumented in this encounter Additional Health Concerns Assessment Noted Time A fall risk assessment has been complete d for the patient 03/16/2022 10:36 AM EDT documented as of this encounter Care Teams Executor Of Estate Relationship Specialty Start Date End Date Michele Wright MD [address] [place] [address] PCP - General 10/11/20 Edgar Szymanski MD [address] [facility] [address] [place] [address] Radiation Oncologist Radiation Therapy 03/14/20 4 Shun Hurst MD [address] [facility] [address] [place] [address] Surgeon Neurosurgery 02/24/21 Divine Carpenter MD [address] Diane Zuniga [facility] [address] [place] [address] Medical Oncologist Medical Oncology 06/13/21 documented as of this encounter
--- OUTSIDE RECORDS SUMMARY | 2024-05-03 13:38 | XMS_ITS | Encounter Summary ---
Author Organization Healthcare Address [address] [place] [address] Care Team Providers Care Software Systems Architect Name Role Phone Michele Wright MD Primary Care Provider + [phone] Edgar Szymanski MD Unavailable [phone] Shun Hurst MD Unavailable [phone] Divine Carpenter MD Unavailable [phone] Encounter Details Date Type Department Care Team (Latest Contact Info) Description 06/09/2022 Travel Social History Tobacco Use Types Packs/Day [...] suspected to have Coronavirus/COVID-19? No / Unsure 06/09/2022 9:57 AM EST documented as of this encounter Plan of Treatment Upcoming Encounters Date Type Department Care Team ([facility] st Contact Info) Description 07/17/2024 12:30 PM EST Clinical Support Pav CC Head, Neck & Respiratory [address] [facility], [address] [place] [address] 07/17/2024 1:30 PM EST Appointment [facility] G Radiology [address] [place] [phone] 07/20/2024 2:50 PM EST Office Visit Pav CC Head, Neck & Respiratory [address] [facility], [address] [place] [address] Divine Carpenter MD 800 [facility] Diane Zuniga [facility] [address] [place] [address] documented as of this encounter Visit Diagnoses Not on filedocumented in this encounter Additional Health Concerns Assessment Noted Time A fall risk assessment has been complete d for the patient 03/16/2022 10:36 AM EDT documented as of this encounter Care Teams Software Systems Architect Relationship Specialty Start Date End Date Michele Wright MD [address] [place] [address] PCP - General 10/11/20 Edgar Szymanski MD [address] [facility] [address] [place] [address] Radiation Oncologist Radiation Therapy 03/14/20 4 Shun Hurst MD [address] [facility] [address] [place] [address] Surgeon Neurosurgery 02/24/21 Divine Carpenter MD [address] [facility] Diane Zuniga [facility] [address] [place] [address] Medical Oncologist Medical Oncology 06/13/21 documented as of this encounter
--- OUTSIDE RECORDS SUMMARY | 2024-05-03 13:38 | XMS_ITS | Encounter Summary ---
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; Secondary [...] Pav [facility] Respiratory [address] [facility], 2nd [place] [address] 07/17/2024 1:30 PM EST Appointment PAV G Radiology [address] [place] [address] 07/20/2024 2:50 PM EST Office Visit Pav [facility] Neck [facility] Respiratory [address] [facility], 2nd [place] [address] Divine Carpenter MD 800 [facility] [address] [place] [address] documented as of this encounter Procedures Procedure Name Priority Date/Time Associated Diagnosis Comments CBC WITH AUTO DIFFERENTIAL Routine 06/09/2022 10:21 AM EST 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) TSH Routine 06/09/2022 10:21 AM EST 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) COMPREHENSIVE METABOLIC PANEL, PLASMA Routine 06/09/2022 10:21 AM EST 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) documented in this encounter Results * (ABNORMAL) CBC and Differential (06/09/2022 10:21 AM EST) WBC Count 4.86 3.70 - 10.30 10*3/uL LAB HEMATOLOGY METHOD 06/09/2022 10:57 AM EST [facility] RBC Count 5.27 4.60 - 6.10 10*6/uL LAB HEMATOLOGY METHOD 06/09/2022 10:57 AM EST [facility] HGB 14.7 13.7 - 17.5 g/dL LAB HEMATOLOGY METHOD 06/09/2022 10:57 AM [facility] HCT 45.7 40.0 - 51.0 % LAB HEMATOLOGY METHOD 06/09/2022 10:57 AM EST [facility] Platelet Count 148(L) 155 - 369 10*3/uL LAB HEMATOLOGY METHOD 06/09/2022 10:57 AM EST [facility] MCV 87 79 - 98 fL LAB HEMATOLOGY METHOD 06/09/2022 10:57 AM EST [facility] MCH 27.9 26.0 - 32.0 pg LAB HEMATOLOGY METHOD 06/09/2022 10:57 AM EST [facility] MCHC 32.2 30.7 - 35.5 g/dL LAB HEMATOLOGY METHOD 06/09/2022 10:57 AM EST [facility] RDW 13.9 11.5 - 14.5 % LAB HEMATOLOGY METHOD 06/09/2022 10:57 AM [facility] MPV 10.5 8.8 - 12.5 fL LAB HEMATOLOGY METHOD 06/09/2022 10:57 AM [facility] nRBC 0.0 <=0.0 per 100 WBCs LAB HEMATOLOGY METHOD 06/09/2022 10:57 AM [facility] Differential Type Automated LAB HEMATOLOGY METHOD 06/09/2022 10:57 AM [facility] Neutrophils % 71.0 % LAB HEMATOLOGY METHOD 06/09/2022 10:57 AM EST [facility] Lymphocytes % 13.0 % LAB HEMATOLOGY METHOD 06/09/2022 10:57 AM EST [facility] Monocytes % 12.0 % LAB HEMATOLOGY METHOD 06/09/2022 10:57 AM EST [facility] Eosinophils % 3.0 % LAB HEMATOLOGY METHOD 06/09/2022 10:57 AM EST [facility] Basophils % 0.0 % LAB HEMATOLOGY METHOD 06/09/2022 10:57 AM [facility] Immature Granulocytes % 1.0 % LAB HEMATOLOGY METHOD 06/09/2022 10:57 AM [facility] Neutrophils Absolute 3.49 1.60 - 6.10 10*3/uL LAB HEMATOLOGY METHOD 06/09/2022 10:57 AM EST [facility] Lymphocytes Absolute 0.62(L) 1.20 - 3.90 10*3/uL LAB HEMATOLOGY METHOD 06/09/2022 10:57 AM EST [facility] Monocytes Absolute 0.56 0.30 - 0.90 10*3/uL LAB HEMATOLOGY METHOD 06/09/2022 10:57 AM EST [facility] Eosinophils Absolute 0.14 0.00 - 0.50 10*3/uL LAB HEMATOLOGY METHOD 06/09/2022 10:57 AM EST [facility] Basophils Absolute 0.02 0.00 - 0.10 10*3/uL LAB HEMATOLOGY METHOD 06/09/2022 10:57 AM EST [facility] Immature Granulocytes Absolute 0.03 0.00 - 0.06 10*3/uL LAB HEMATOLOGY METHOD 06/09/2022 10:57 AM EST [facility] Blood Venous blood specimen / Unknown (Port) Long-term Catheter / Unknown 06/09/2022 10:21 AM EST 06/09/2022 10:50 AM EST [facility] - 06/09/2022 10:57 AM EST Therapeutic decision making should be based on absolute values, rather than percentages. us Divine Carpenter MD LAB BLOOD ORDERABLES Final R esult [facility] [address] [place] [address] * (ABNORMAL) Comprehensive Metabolic Panel, Plasma (06/09/2022 10:21 AM EST) Glucose, Plasma 101(H) 74 - 99 mg/dL 06/09/2022 11:27 AM EST [facility] BUN, Plasma 12 7 - 21 mg/dL 06/09/2022 11:27 AM EST [facility] Creatinine, Plasma 0.85 0.80 - 1.30 mg/dL 06/09/2022 11:27 AM EST [facility] BUN/Creatinine Ratio 14 06/09/2022 11:27 AM EST [facility] Sodium, Plasma 138 136 - 145 mmol/L 06/09/2022 11:27 AM EST [facility] Potassium, Plasma 3.8 3.7 - 4.8 mmol/L 06/09/2022 11:27 AM EST [facility] Comment:Reference range for Serum potassium is 0.2 to 0.5 mmol/L higher than Plasma range. Chloride, Plasma 100 97 - 107 mmol/L 06/09/2022 11:27 AM EST [facility] CO2, Plasma 30(H) 22 - 29 mmol/L 06/09/2022 11:27 AM EST [facility] Anion Gap 8 6 - 16 mmol/L 06/09/2022 11:27 AM EST [facility] Total Calcium, Plasma 9.5 8.9 - 10.2 mg/dL 06/09/2022 11:27 AM EST [facility] Total Protein 7.3 6.3 - 7.9 g/dL 06/09/2022 11:27 AM EST [facility] Albumin, Plasma 4.3 3.5 - 5.2 g/dL 06/09/2022 11:27 AM EST [facility] AST, Plasma 16 12 - 40 U/L 06/09/2022 11:27 AM EST [facility] ALT, Plasma 12 11 - 41 U/L 06/09/2022 11:27 AM EST [facility] Alkaline Phosphatase, Plasma 80 40 - 115 U/L 06/09/2022 11:27 AM EST [facility] Total Bilirubin, Plasma 0.5 0.2 - 1.1 mg/dL 06/09/2022 11:27 AM EST [facility] eGFRcr 102.0 mL/min/1.7 3m*2 06/09/2022 11:27 AM EST [facility] Comment: Reported eGFRcr in mL/min/1.73m2 is based the CKD-EPI 2020 equation that does not use a race coefficient. Effective 12/24/21 our laboratory changed the eGFR calculation to the CKD-EPI 2021 equation from the previously reported eGFR, based on the MDRD equation. ??For comparisons between the two equations, please see laboratory website: ??[email or web address] Blood Venous blood specimen / Unknown (Port) Long-term Catheter / Unknown 06/09/2022 10:21 AM EST 06/09/2022 10:50 AM EST us Divine Carpenter MD LAB BLOOD ORDERABLES Final R esult [facility] [address] [place] [address] * Thyroid Stimulating Hormone, Plasma (06/09/2022 10:21 AM EST) Thyroid Stimulating Hormone, Plasma 1.27 0.40 - 4.20 uIU/mL 06/09/2022 11:27 AM EST [facility] Blood Venous blood specimen / Unknown (Port) Long-term Catheter / Unknown 06/09/2022 10:21 AM EST 06/09/2022 10:50 AM EST Divine Carpenter MD LAB BLOOD ORDERABLES Final R esult [facility] [address] [place] [address] documented in this encounter Visit Diagnoses Diagnosis 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, unspecified site documented in this encounter Additional Health Concerns Assessment Noted Time A fall risk assessment has been complete d for the patient 03/16/2022 10:36 AM EDT documented as of this encounter Care Teams Food Service Associate Relationship Specialty Start Date End Date Michele Wright MD [address] [place] [address] PCP - General 10/11/20 Edgar Szymanski MD [address] [facility] [address] [place] [address] Radiation Oncologist Radiation Therapy 03/14/20 4 Shun Hurst MD [address] [place] [address] Surgeon Neurosurgery 02/24/21 Divine Carpenter MD [address] [facility] [address] [place] [address] Medical Oncologist Medical Oncology 06/13/21 documented as of this encounter
--- OUTSIDE RECORDS SUMMARY | 2024-05-03 13:38 | XMS_ITS | Encounter Summary ---
Author Organization [facility] Address [address] [place] [address] Care Team Providers Care Post Office Manager Name Role Phone Michele Wright MD Primary Care Provider + [phone] Edgar Szymanski MD Unavailable [phone] Shun Hurst MD Unavailable [phone] Divine Carpenter MD Unavailable [phone] Encounter Details Date Type Department Care Team (Late st Contact Info) Description 03/09/2022 9:30 AM EDT Clinical Support [facility] Respiratory [address] [place] [address] Ambika Ambriz RN [facility] Secondary malignant neoplasm of chest wall (CMS/HCC); 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; Cancer of larynx (CMS/HCC) Social History Tobacco [...] Pav [facility] Head[facility] Neck [facility] Respiratory [address] [facility], 2nd [place] [address] 07/17/2024 1:30 PM EST Appointment PAV G Radiology [address] [place] [address] 07/20/2024 2:50 PM EST Office Visit Pav CC Head[facility] Neck & Respiratory [address] [facility], [address]nd [place] [address] Divine Carpenter MD [address] [place] [address] documented as of this encounter Procedures Procedure Name Priority Date/Time Associated Diagnosis Comments CBC WITH AUTO DIFFERENTIAL Routine 03/09/2022 9:32 AM EDT 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) TSH Routine 03/09/2022 9:32 AM EDT 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) COMPREHENSIVE METABOLIC PANEL, PLASMA Routine 03/09/2022 9:32 AM EDT 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) documented in this encounter Results * (ABNORMAL) CBC and Differential (03/09/2022 9:32 AM EDT) WBC Count 4.51 3.70 - 10.30 10*3/uL LAB HEMATOLOGY METHOD 03/09/2022 10:38 AM EDT [facility] RBC Count 4.87 4.60 - 6.10 10*6/uL LAB HEMATOLOGY METHOD 03/09/2022 10:38 AM EDT [facility] HGB 13.5(L) 13.7 - 17.5 g/dL LAB HEMATOLOGY METHOD 03/09/2022 10:38 AM EDT [facility] HCT 41.7 40.0 - 51.0 % LAB HEMATOLOGY METHOD 03/09/2022 10:38 AM EDT [facility] Platelet Count 165 155 - 369 10*3/uL LAB HEMATOLOGY METHOD 03/09/2022 10:38 AM EDT [facility] MCV 86 79 - 98 fL LAB HEMATOLOGY METHOD 03/09/2022 10:38 AM EDT [facility] MCH 27.7 26.0 - 32.0 pg LAB HEMATOLOGY METHOD 03/09/2022 10:38 AM EDT [facility] MCHC 32.4 30.7 - 35.5 g/dL LAB HEMATOLOGY METHOD 03/09/2022 10:38 AM EDT [facility] RDW 14.6(H) 11.5 - 14.5 % LAB HEMATOLOGY METHOD 03/09/2022 10:38 AM EDT [facility] MPV 11.1 8.8 - 12.5 fL LAB HEMATOLOGY METHOD 03/09/2022 10:38 AM EDT [facility] nRBC 0.0 <=0.0 per 100 WBCs LAB HEMATOLOGY METHOD 03/09/2022 10:38 AM EDT [facility] Differential Type Automated LAB HEMATOLOGY METHOD 03/09/2022 10:38 AM EDT [facility] Neutrophils % 78.0 % LAB HEMATOLOGY METHOD 03/09/2022 10:38 AM EDT [facility] Lymphocytes % 11.0 % LAB HEMATOLOGY METHOD 03/09/2022 10:38 AM EDT [facility] Monocytes % 9.0 % LAB HEMATOLOGY METHOD 03/09/2022 10:38 AM EDT [facility] Eosinophils % 2.0 % LAB HEMATOLOGY METHOD 03/09/2022 10:38 AM EDT [facility] Basophils % 0.0 % LAB HEMATOLOGY METHOD 03/09/2022 10:38 AM EDT [facility] Immature Granulocytes % 0.0 % LAB HEMATOLOGY METHOD 03/09/2022 10:38 AM EDT [facility] Neutrophils Absolute 3.51 1.60 - 6.10 10*3/uL LAB HEMATOLOGY METHOD 03/09/2022 10:38 AM EDT [facility] Lymphocytes Absolute 0.48(L) 1.20 - 3.90 10*3/uL LAB HEMATOLOGY METHOD 03/09/2022 10:38 AM EDT [facility] Monocytes Absolute 0.40 0.30 - 0.90 10*3/uL LAB HEMATOLOGY METHOD 03/09/2022 10:38 AM EDT [facility] Eosinophils Absolute 0.09 0.00 - 0.50 10*3/uL LAB HEMATOLOGY METHOD 03/09/2022 10:38 AM EDT [facility] Basophils Absolute 0.02 0.00 - 0.10 10*3/uL LAB HEMATOLOGY METHOD 03/09/2022 10:38 AM EDT [facility] Immature Granulocytes Absolute 0.01 0.00 - 0.06 10*3/uL LAB HEMATOLOGY METHOD 03/09/2022 10:38 AM EDT [facility] Blood Venous blood specimen / Unknown (Port) Long-term Catheter / Unknown 03/09/2022 9:32 AM EDT 03/09/2022 10:28 AM EDT Narrative [facility] - 03/09/2022 10:38 AM EDT Therapeutic decision making should be based on absolute values, rather than percentages. us Divine Carpenter MD LAB BLOOD ORDERABLES Final R esult Performing Organization Address City/State/[facility] Co de Phone Number [facility] [address] [place] [id number] * (ABNORMAL) Comprehensive Metabolic Panel, Plasma (03/09/2022 9:32 AM EDT) Glucose, Plasma 108(H) 74 - 99 mg/dL 03/09/2022 10:34 AM EDT [facility] BUN, Plasma 15 7 - 21 mg/dL 03/09/2022 10:34 AM EDT [facility] Creatinine, Plasma 0.83 0.80 - 1.30 mg/dL 03/09/2022 10:34 AM EDT [facility] BUN/Creatinine Ratio 18 03/09/2022 10:34 AM EDT [facility] Sodium, Plasma 140 136 - 145 mmol/L 03/09/2022 10:34 AM EDT [facility] Potassium, Plasma 3.9 3.7 - 4.8 mmol/L 03/09/2022 10:34 AM EDT [facility] Comment:Reference range for Serum potassium is 0.2 to 0.5 mmol/L higher than Plasma range. Chloride, Plasma 101 97 - 107 mmol/L 03/09/2022 10:34 AM EDT [facility] CO2, Plasma 30(H) 22 - 29 mmol/L 03/09/2022 10:34 AM EDT [facility] Anion Gap 9 6 - 16 mmol/L 03/09/2022 10:34 AM EDT [facility] Total Calcium, Plasma 9.8 8.9 - 10.2 mg/dL 03/09/2022 10:34 AM EDT [facility] Total Protein 7.2 6.3 - 7.9 g/dL 03/09/2022 10:34 AM EDT [facility] Albumin, Plasma 4.3 3.5 - 5.2 g/dL 03/09/2022 10:34 AM EDT [facility] AST, Plasma 13 12 - 40 U/L 03/09/2022 10:34 AM EDT [facility] ALT, Plasma 7(L) 11 - 41 U/L 03/09/2022 10:34 AM EDT [facility] Alkaline Phosphatase, Plasma 78 40 - 115 U/L 03/09/2022 10:34 AM EDT [facility] Total Bilirubin, Plasma 0.3 0.2 - 1.1 mg/dL 03/09/2022 10:34 AM EDT [facility] eGFRcr 103.4 mL/min/1.7 3m*2 03/09/2022 10:34 AM EDT [facility] Comment: Reported eGFRcr in mL/min/1.73m2 is based the CKD-EPI 202 equation that does not use a race coefficient. Effective 12/24/21 our laboratory changed the eGFR calculation to the CKD-EPI 2021 equation from the previously reported eGFR, based on the MDRD equation. ??For comparisons between the two equations, please see laboratory website: ??[email or web address] Blood Venous blood specimen / Unknown (Port) Long-term Catheter / Unknown 03/09/2022 9:32 AM EDT 03/09/2022 9:52 AM EDT us Divine Carpenter MD LAB BLOOD ORDERABLES Final R esult Performing Organization Address City/[facility] Co de Phone Number [facility] [address] [place] [address] * Thyroid Stimulating Hormone, Plasma (03/09/2022 9:32 AM EDT) Thyroid Stimulating Hormone, Plasma 0.69 0.40 - 4.20 uIU/mL 03/09/2022 10:34 AM EDT [facility] Blood Venous blood specimen / Unknown (Port) Long-term Catheter / Unknown 03/09/2022 9:32 AM EDT 03/09/2022 9:52 AM EDT Divine Carpenter MD LAB BLOOD ORDERABLES Final R esult Performing Organization Address City/[facility] Co de Phone Number [facility] [address] [place] [address] documented in this encounter Visit Diagnoses Diagnosis 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, unspecified site documented in this encounter Additional Health Concerns Assessment Noted Time A fall risk assessment has been complete d for the patient 12/08/2021 1:20 PM EDT documented as of this encounter Care Teams Post Office Manager Relationship Specialty Start Date End Date Michele Wright MD [address] [id number] PCP - General 10/11/20 Edgar Szymanski MD [address] [facility] [address] [place] [phone] Radiation Oncologist Radiation Therapy 03/14/20 4 Shun Hurst MD [address] [facility] [address] [place] [address] Surgeon Neurosurgery 02/24/21 Divine Carpenter MD [address] Diane Zuniga [facility] [address] [place] [address] Medical Oncologist Medical Oncology 06/13/21 documented as of this encounter
--- OUTSIDE RECORDS SUMMARY | 2024-05-03 13:38 | XMS_ITS | Encounter Summary ---
Author Organization [facility] Address [address] [place], [place] [id number] Care Team Providers Care Retread Builder Name Role Phone Michele Wright MD Primary Care Provider + [phone] Edgar Szymanski MD Unavailable [phone] Shun Hurst MD Unavailable [phone] Divine Carpenter MD Unavailable [phone] Reason for Visit * Reason Comments Med Refill Encounter Details Date Type Department Care Team (Late st Contact Info) Description 03/18/2022 Refill P[facility] H Infusion [address] [place] [address] Letty Prakash PA 800 [facility] [address] [place] [address] Social History Tobacco Use Types Packs/Day Years [...] Respiratory 800 [facility], [address]nd [place] [address] 07/17/2024 1:30 PM EST Appointment PAV G Radiology [address] [place] [address] 07/20/2024 2:50 PM EST Office Visit Pav CC Head, Neck & Respiratory 800 [facility], [address]nd [place] [address] Divine Carpenter MD 800 [facility] [address] [place] [address] documented as of this encounter Visit Diagnoses Not on filedocumented in this encounter Additional Health Concerns Assessment Noted Time A fall risk assessment has been complete d for the patient 03/16/2022 10:36 AM EDT documented as of this encounter Care Teams Retread Builder Relationship Specialty Start Date End Date Michele Wright MD [address] [place] [address] PCP - General 10/11/20 Edgar Szymanski MD 800 [facility] [address] [place] [phone] Radiation Oncologist Radiation Therapy 03/14/20 4 Shun Hurst MD [address] [facility] [address] [place] [address] Surgeon Neurosurgery 02/24/21 Divine Carpenter MD 800 [facility] [address] [facility] [address] [place] [address] Medical Oncologist Medical Oncology 06/13/21 documented as of this encounter
--- OUTSIDE RECORDS SUMMARY | 2024-05-03 13:38 | XMS_ITS | Encounter Summary ---
Author Organization [facility] Address [address] [place], [place] [address] Care Team Providers Care Associate Business Analyst Name Role Phone Michele Wright MD Primary Care Provider + [phone] Edgar Szymanski MD Unavailable [phone] Shun Hurst MD Unavailable [phone] Divine Carpenter MD Unavailable [phone] Reason for Visit * Reason Onset Date Comments HCN Clinical Concern/Question 07/10/2022 Encounter Details Date Type Department Care Team (Late st Contact Info) Description 07/10/2022 Telephone PFE SCHEDULING [address] [place] [phone] Divine Carpenter MD [address] [address] HCN Clinical Concern/Question Social History Tobacco Use Types Packs/Day Years [...] In the last 10 days, have jn u been in contact with someone who was confirmed or suspected to have Coronavirus/COVID-19? No / Unsure 07/15/2022 12:50 PM EST documented as of this encounter Miscellaneous Notes * Telephone Encounter - Ubaldo Brambila - 07/10/2022 12:13 PM EST Clinical Concern/Question Reason for Call: Patient needs his port flushed and his paracentesis changed, please call back. Best contact number: [phone] (home) Optimal time of day to reach caller: [...] Respiratory 800 [facility] [place] [address] 07/17/2024 1:30 PM EST Appointment PAV G Radiology [address] [place] [address] 07/20/2024 2:50 PM EST Office Visit Pav CC Head, Neck & Respiratory 800 [facility], [address] [place] [address] Divine Carpenter MD 800 [facility] [address] [place] [address] documented as of this encounter Visit Diagnoses Not on filedocumented in this encounter Additional Health Concerns Assessment Noted Time A fall risk assessment has been complete d for the patient 06/11/2022 10:00 AM EST documented as of this encounter Care Teams Associate Business Analyst Relationship Specialty Start Date End Date Michele Wright MD [address] [place] [address] PCP - General 10/11/20 Edgar Szymanski MD [address] [facility] [address] [place] [address] Radiation Oncologist Radiation Therapy 03/14/20 4 Shun Hurst MD [address] [place] [address] Surgeon Neurosurgery 02/24/21 Divine Carpenter MD [address] [place] [address] Medical Oncologist Medical Oncology 06/13/21 documented as of this encounter
--- OUTSIDE RECORDS SUMMARY | 2024-05-03 13:38 | XMS_ITS | Encounter Summary ---
Author Organization [facility] Address [address] [place] [address] Care Team Providers Care Manager Rehab Name Role Phone Michele Wright MD Primary Care Provider + [phone] Edgar Szymanski MD Unavailable [phone] Shun Hurst MD Unavailable [phone] Bailey Ellis MD Unavailable [phone] Reason for Referral * Imaging (Routine) - Closed Specialty Diagnoses / Procedures Referred By Contac t Referred To Contact Radiology Diagnoses 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) Procedures CT Abdomen Pelvis w IV Contrast Bailey Ellis MD [address] [address] Phone: tel: fax: Referral ID Status Reason Start Date Expiration Date Visits Re quested Visits Authorized [id number] Closed 03/14/2022 09/13/2023 1 1 * Imaging (Routine) - Closed Specialty Diagnoses / Procedures Referred By Contac t Referred To Contact Radiology Diagnoses 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) Procedures CT Soft Tissue Neck w IV Contrast Bailey Ellis MD [address] [address] Phone: tel: fax: Referral ID Status Reason Start Date Expiration Date Visits Re quested Visits Authorized [id number] Closed 03/14/2022 09/13/2023 1 1 * Imaging (Routine) - Closed Specialty Diagnoses / Procedures Referred By Contac t Referred To Contact Radiology Diagnoses 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) Procedures CT Chest w IV Contrast Bailey Ellis MD [address] [address] Phone: tel: fax: Referral ID Status Reason Start Date Expiration Date Visits Re quested Visits Authorized [id number] Closed 03/14/2022 09/13/2023 1 1 Reason for Visit * Imaging (Routine) - Closed Specialty Diagnoses / Procedures Referred By Contac t Referred To Contact Radiology Diagnoses 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 * Contrast Imaging Discharge Instructions ([place]) ([place]) documented in this encounter Medications at Time [...] 1 (one) time each day. 30 tablet 06/17/2021 07/12/2023 levothyroxine (Synthroid, Levoxyl) 150 MCG [...] [facility] [address] [address] 07/17/2024 1:30 PM EST Appointment [facility] [address] [place] [address] 07/20/2024 2:50 PM EST Office Visit [facility] [address] [address] Bailey Ellis MD 800 [facility] [address] [place] [address] documented as of this encounter Procedures Procedure Name Priority Date/Time Associated Diagnosis Comments CT ABDOMEN PELVIS W IV CONTRAST Routine 06/09/2022 11:50 AM EST 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) CT CHEST W IV CONTRAST Routine 06/09/2022 11:50 AM EST 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) CT SOFT TISSUE NECK W IV CONTRAST Routine 06/09/2022 11:50 AM EST 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) documented in this encounter Results * CT Abdomen Pelvis w IV Contrast (06/09/2022 11:50 AM EST) Anatomical Region Laterality Modality Abdomen, Pelvis Computed Tomogra phy Impressions 06/09/2022 2:06 PM EST No evidence of disease progression within the [...] Brianna Carranza MD on 06/09/2022 2:06 PM Narrative 06/09/2022 2:06 PM EST Exam/Procedure: CT CHEST W IV CONTRAST, CT ABDOMEN PELVIS W IV CONTRAST ordered by BAILEY ELLIS, [id number] CLINICAL INDICATION: Non-small cell lung cancer, metastatic, assess treatment response TECHNIQUE: Multiple CT helical images were obtained from thoracic inlet through pubic symphysis with administration of IV contrast. 100 ??mL of Omnipaque-300 were administered intravenously. ?? Total DLP (Dose-Length Product): 1454.01 mGy.cm. Please note: The reported value represents the total of one or more individual components during the CT acquisition on this date and at this time, and as such, the same value may appear in more than one CT report depending on the interpreting/reporting physicians. COMPARISON: CT chest March 09, 2022. FINDINGS: Mediastinum and Pleura: Left chest wall port with its tip in the lower SVC. No enlarged mediastinal or hilar lymph nodes. No pleural or pericardial effusion. Mild coronary calcifications. Please see separate report for CT soft tissue neck. Lungs: Changes of right upper lobe wedge resection. Redemonstrated left basal ground glass opacities, most consistent with atelectasis and mild postinflammatory scarring. No suspicious pulmonary nodules. Central airways are patent. Abdomen and Pelvis: No suspicious lesions within the solid organs of the abdomen and pelvis. No abdominopelvic lymphadenopathy. No ascites. The pelvic viscera is unremarkable. Prostatomegaly. Musculoskeletal: No suspicious lytic or sclerotic lesion. Procedure Note Brianna Carranza MD - 06/09/2022 Exam/Procedure: CT CHEST W IV CONTRAST, CT ABDOMEN PELVIS W IV CONTRASTordered by BAILEY ELLIS, [id number] CLINICAL INDICATION: Non-small cell lung cancer, metastatic, assess treatment response TECHNIQUE: Multiple CT helical images were obtained from thoracic inlet through pubicsymphysis with administration of IV contrast. 100 mL of Omnipaque-300were administered intravenously. Total DLP (Dose-Length Product): 1454.01 mGy.cm. Please note: The reportedvalue represents the total of one or more individual components during theCT acquisition on this date and at this time, and as such, the same valuemay appear in more than one CT report depending on theinterpreting/reporting physicians. COMPARISON: CT chest March 09, 2022. FINDINGS: Mediastinum and Pleura: Left chest wall port with its tip in the lowerSVC. No enlarged mediastinal or hilar lymph nodes. No pleural orpericardial effusion. Mild coronary calcifications. Please see separatereport for CT soft tissue neck. Lungs: Changes of right upper lobe wedge resection. Redemonstrated leftbasal ground glass opacities, most consistent with atelectasis and mildpostinflammatory scarring. No suspicious pulmonary nodules. Centralairways are patent. Abdomen and Pelvis: No suspicious lesions within the solid organs of theabdomen and pelvis. No abdominopelvic lymphadenopathy. No ascites. Thepelvic viscera is unremarkable. Prostatomegaly. Musculoskeletal: No suspicious lytic or sclerotic lesion. IMPRESSION: No evidence of disease progression within [...] Brianna Carranza MD on 06/09/2022 2:06 PM us Bailey Ellis MD IMG CT PROCEDURES Final Resu lt * CT Soft Tissue Neck w IV Contrast (06/09/2022 11:50 AM EST) Anatomical Region Laterality Modality Neck Computed Tomogra phy Impressions 06/09/2022 8:18 PM EST Extensive postsurgical and radiation effects as detailed above. No tumor recurrence or cervical adenopathy. CRITICAL RESULT: No. COMMUNICATION: Per this written report. Dictated by Mya Rodriguez MD on 06/09/2022 11:59 AM Signed by Mya Rodriguez MD on 06/09/2022 8:18 PM Narrative 06/09/2022 8:18 PM EST Exam/Procedure: CT SOFT TISSUE NECK W IV CONTRAST ordered by BAILEY ELLIS, [id number] CLINICAL INDICATION: Laryngeal cancer status post chemoradiation therapy TECHNIQUE: Helical images were obtained through the neck, and reconstructed in the axial plane on bone and soft tissue algorithm at multiple slice thicknesses. Coronal and sagittal reformatted images were created. 100 mL of Omnipaque 300 were administered intravenously. Total DLP (Dose-Length Product): 1454 mGy.cm. Please note: The reported value represents the total of one or more individual components during the CT acquisition on this date and at this time, and as such, the same value may appear in more than one CT report depending on the interpreting/reporting physicians. COMPARISON: Neck CT 03/09/2022 FINDINGS: Diagnostic Quality: Adequate. Soft Tissues: Extensive [...] posterior longitudinal ligament, spanning levels C2 through C4, causing moderate spinal canal stenosis at level [...] findings. Procedure Note Mya Rodriguez MD - 06/09/2022 Exam/Procedure: CT SOFT TISSUE NECK W IV CONTRAST ordered by BAILEY MOREIRA, [id number] CLINICAL INDICATION: Laryngeal cancer status post chemoradiation therapy TECHNIQUE: Helical images were obtained through the neck, and reconstructed in theaxial plane on bone and soft tissue algorithm at multiple slicethicknesses. Coronal and sagittal reformatted images were created. 100 mLof Omnipaque 300 were administered intravenously. Total DLP (Dose-Length Product): 1454 mGy.cm. Please note: The reportedvalue represents the total of one or more individual components during theCT acquisition on this date and at this time, and as such, the same valuemay appear in more than one CT report depending on theinterpreting/reporting physicians. COMPARISON: Neck CT 03/09/2022 FINDINGS: Diagnostic Quality: Adequate. Soft Tissues: Extensive [...] the posteriorlongitudinal ligament, spanning levels C2 through C4, causing moderatespinal canal stenosis at level C3. [...] Mya Rodriguez MD on 06/09/2022 8:18 PM us Bailey Ellis MD IMG CT PROCEDURES Final Resu lt * CT Chest w IV Contrast (06/09/2022 11:50 AM EST) Anatomical Region Laterality Modality Chest Computed Tomogra phy Impressions 06/09/2022 2:06 PM EST No evidence of disease progression within the [...] Brianna Carranza MD on 06/09/2022 2:06 PM Narrative 06/09/2022 2:06 PM EST Exam/Procedure: CT CHEST W IV CONTRAST, CT ABDOMEN PELVIS W IV CONTRAST ordered by BAILEY ELLIS [id number] CLINICAL INDICATION: Non-small cell lung cancer, metastatic, assess treatment response TECHNIQUE: Multiple CT helical images were obtained from thoracic inlet through pubic symphysis with administration of IV contrast. 100 ??mL of Omnipaque-300 were administered intravenously. ?? Total DLP (Dose-Length Product): 1454.01 mGy.cm. Please note: The reported value represents the total of one or more individual components during the CT acquisition on this date and at this time, and as such, the same value may appear in more than one CT report depending on the interpreting/reporting physicians. COMPARISON: CT chest March 09, 2022. FINDINGS: Mediastinum and Pleura: Left chest wall port with its tip in the lower SVC. No enlarged mediastinal or hilar lymph nodes. No pleural or pericardial effusion. Mild coronary calcifications. Please see separate report for CT soft tissue neck. Lungs: Changes of right upper lobe wedge resection. Redemonstrated left basal ground glass opacities, most consistent with atelectasis and mild postinflammatory scarring. No suspicious pulmonary nodules. Central airways are patent. Abdomen and Pelvis: No suspicious lesions within the solid organs of the abdomen and pelvis. No abdominopelvic lymphadenopathy. No ascites. The pelvic viscera is unremarkable. Prostatomegaly. Musculoskeletal: No suspicious lytic or sclerotic lesion. Procedure Note Brianna Carranza MD - 06/09/2022 Exam/Procedure: CT CHEST W IV CONTRAST, CT ABDOMEN PELVIS W IV CONTRASTordered by BAILEY ELLIS, [id number] CLINICAL INDICATION: Non-small cell lung cancer, metastatic, assess treatment response TECHNIQUE: Multiple CT helical images were obtained from thoracic inlet through pubicsymphysis with administration of IV contrast. 100 mL of Omnipaque-300were administered intravenously. Total DLP (Dose-Length Product): 1454.01 mGy.cm. Please note: The reportedvalue represents the total of one or more individual components during theCT acquisition on this date and at this time, and as such, the same valuemay appear in more than one CT report depending on theinterpreting/reporting physicians. COMPARISON: CT chest March 09, 2022. FINDINGS: Mediastinum and Pleura: Left chest wall port with its tip in the lowerSVC. No enlarged mediastinal or hilar lymph nodes. No pleural orpericardial effusion. Mild coronary calcifications. Please see separatereport for CT soft tissue neck. Lungs: Changes of right upper lobe wedge resection. Redemonstrated leftbasal ground glass opacities, most consistent with atelectasis and mildpostinflammatory scarring. No suspicious pulmonary nodules. Centralairways are patent. Abdomen and Pelvis: No suspicious lesions within the solid organs of theabdomen and pelvis. No abdominopelvic lymphadenopathy. No ascites. Thepelvic viscera is unremarkable. Prostatomegaly. Musculoskeletal: No suspicious lytic or sclerotic lesion. IMPRESSION: No evidence of disease progression within [...] Brianna Carranza MD on 06/09/2022 2:06 PM Bailey Ellis MD IMG CT PROCEDURES [...] Once as needed, 1 dose, Starting on 06/09/22 at 1151, Until 06/09/22 at 1158, Routine, Intraprocedure, line care Given 06/09/2022 11:58 AM EST 500 Units iohexol (OMNIPaque) 300 MG/ML injection 100 mL 100 mL, Intravenous, Once in imaging, 1 dose, Starting on 06/09/22 at 1059, Until 06/09/22 at 1144, Routine, Imaging Protocol Orders Given 06/09/2022 11:44 AM EST 100 mL iohexol (OMNIPaque) 9 MG/ML oral contrast 500 mL 500 mL, Oral, Once in imaging, 1 dose, Starting on 06/09/22 at 1059, Until 06/09/22 at 1144, Routine, Imaging Protocol Orders Given 06/09/2022 11:44 AM EST 500 mL documented in this encounter Additional Health Concerns Assessment Noted Time A fall risk assessment has been complete d for the patient 03/16/2022 10:36 AM EDT documented as of this encounter Care Teams Manager Rehab Relationship Specialty Start Date End Date Michele Wright MD [address] [place] [address] PCP - General 10/11/20 Edgar Szymanski MD [address] [place] [phone] Radiation Oncologist Radiation Therapy 03/14/20 4 Shun Hurst MD [address] [place] [address] Surgeon Neurosurgery 02/24/21 Bailye Ellis MD [address] [place] [address] Medical Oncologist Medical Oncology 06/13/21 documented as of this encounter
--- OUTSIDE RECORDS SUMMARY | 2024-05-03 13:38 | XMS_ITS | Encounter Summary ---
Author Organization Healthcare Address [address] [place] [address] Care Team Providers Care Cranberry Bog Supervisor Name Role Phone Michele Wright MD Primary Care Provider + [phone] Edgar Szymanski MD Unavailable [phone] Shun Hurst MD Unavailable [phone] Divine Carpenter MD Unavailable [phone] Encounter Details Date Type Department Care Team (Latest Contact Info) Description 06/11/2022 Travel Social History Tobacco Use Types Packs/Day [...] Upcoming Encounters Date Type Department Care Team ([facility] st Contact Info) Description 07/17/2024 12:30 PM EST Clinical Support [facility] 800 [facility] [place] [phone] 07/17/2024 1:30 PM EST Appointment [facility] [address] [place] [address] 07/20/2024 2:50 PM EST Office Visit [facility] 800 [facility], [address] [place] [address] Divine Carpenter MD 800 [facility] Diane Zuniga [facility] [address] [place] [address] documented as of this encounter Visit Diagnoses Not on filedocumented in this encounter Additional Health Concerns Assessment Noted Time A fall risk assessment has been complete d for the patient 06/11/2022 10:00 AM EST documented as of this encounter Care Teams [place] Bog Supervisor Relationship Specialty Start Date End Date Michele Wright MD [address] [place] [address] PCP - General 10/11/20 Edgar Szymanski MD 800 [facility] [address] [place] [address] Radiation Oncologist Radiation Therapy 03/14/20 4 Shun Hurst MD [address] [facility] [address] [place] [address] Surgeon Neurosurgery 02/24/21 Divine Carpenter MD 800 [facility] [address] Zuniga [facility] [address] [place] [address] Medical Oncologist Medical Oncology 06/13/21 documented as of this encounter
--- OUTSIDE RECORDS SUMMARY | 2024-05-03 13:38 | XMS_ITS | Encounter Summary ---
Author Organization Healthcare Address [address] [place] [address] Care Team Providers Care Door Hanger Name Role Phone Michele Wright MD Primary Care Provider + [phone] Edgar Szymanski MD Unavailable [phone] Shun Hurst MD Unavailable [phone] Divine Carpenter MD Unavailable [phone] Encounter Details Date Type Department Care Team (Latest Contact Info) Description 04/10/2022 Travel Social History Tobacco Use Types Packs/Day [...] Upcoming Encounters Date Type Department Care Team ([facility] st Contact Info) Description 07/17/2024 12:30 PM EST Clinical Support [facility] 800 [facility], [address] [place] [address] 07/17/2024 1:30 PM EST Appointment [facility] [address] [place] [address] 07/20/2024 2:50 PM EST Office Visit [facility] 800 [facility], [address] [place] [address] Divine Carpenter MD 800 [facility] Diane Zuniga [facility] [address] [place] [address] documented as of this encounter Visit Diagnoses Not on filedocumented in this encounter Additional Health Concerns Assessment Noted Time A fall risk assessment has been complete d for the patient 03/16/2022 10:36 AM EDT documented as of this encounter Care Teams Door Hanger Relationship Specialty Start Date End Date Michele Wright MD [address] [place] [address] PCP - General 10/11/20 Edgar Szymanski MD 800 [facility] [address] [place] [address] Radiation Oncologist Radiation Therapy 03/14/20 4 Shun Hurst MD [address] [facility] [address] [place] [address] Surgeon Neurosurgery 02/24/21 Divine Carpenter MD 800 [facility] Diane Zuniga [facility] [address] [place] [address] Medical Oncologist Medical Oncology 06/13/21 documented as of this encounter
--- OUTSIDE RECORDS SUMMARY | 2024-05-03 13:38 | XMS_ITS | Encounter Summary ---
Author Organization Healthcare Address [address] [place] [address] Care Team Providers Care Coat Presser Name Role Phone Michele Wright MD Primary Care Provider + [phone] Edgar Szymanski MD Unavailable [phone] Shun Hurst MD Unavailable [phone] Divine Carpenter MD Unavailable [phone] Encounter Details Date Type Department Care Team (Latest Contact Info) Description 07/15/2022 Travel Social History Tobacco Use Types Packs/Day [...] Upcoming Encounters Date Type Department Care Team ([facility] st Contact Info) Description 07/17/2024 12:30 PM EST Clinical Support [facility] 800 [facility], [address] [place] [address] 07/17/2024 1:30 PM EST Appointment [facility] [address] [place] [address] 07/20/2024 2:50 PM EST Office Visit [facility] [address] [facility], [address] [place] [phone] Divine Carpenter MD [address] [facility] Diane Zuniga [facility] [address] [place] [address] documented as of this encounter Visit Diagnoses Not on filedocumented in this encounter Additional Health Concerns Assessment Noted Time A fall risk assessment has been complete d for the patient 06/11/2022 10:00 AM EST A Body Mass Index follow-up plan has been documented for the patient 07/15/2022 1:51 PM EST documented as of this encounter Care Teams Coat Presser Relationship Specialty Start Date End Date Michele Wright MD [address] [place] [address] PCP - General 10/11/20 Edgar Szymanski MD [address] [facility] [address] [place] [phone] Radiation Oncologist Radiation Therapy 03/14/20 4 Shun Hurst MD [address] [facility] [address] [place] [address] Surgeon Neurosurgery 02/24/21 Divine Carpenter MD [address] [facility] Diane Zuniga [facility] [address] [place] [address] Medical Oncologist Medical Oncology 06/13/21 documented as of this encounter
--- OUTSIDE RECORDS SUMMARY | 2024-05-03 13:38 | XMS_ITS | Encounter Summary ---
Author Organization Healthcare Address [address] [place], [place] [id number] Care Team Providers Care Salon Supervisor Name Role Phone Michele Wright MD Primary Care Provider + [phone] Edgar Szymanski MD Unavailable [phone] Shun Hurst MD Unavailable [phone] Divine Carpenter MD Unavailable [phone] Encounter Details Date Type Department Care Team (Late st Contact Info) Description 07/15/2022 1:30 PM EST Office Visit [facility] [address] [place] [address] Luana Leal S, [facility] [address] [facility] [id number] [place] [address] Aphonia (Primary Dx) Social History Tobacco Use Types [...] encounter Miscellaneous Notes * Progress Notes - Luana Leal, GERHARD-VENEER CLIPPER - 07/15/2022 1:30 PM EST [facility] Tracheoesophageal Puncture Assessment/Treatment Service Date: 07/15/2022 Referring Provider: Dr. Divine Carpenter Total assessment/treatment time: 30 minutes Treatment Diagnosis: R.49. Aphonia and C32: Laryngeal cancer History: Mr. Barreto completed chemoradiation therapy for a [id number] SCCa of the supraglottis in July of [...] results. 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 12/26/2020 Neoplasm related pain 10/14/2020 Other diseases of pharynx Hypopharyngeal mass Personal history of antineoplastic chemotherapy History of chemotherapy Personal history of irradiation History of radiation therapy Personal history of other diseases of the respiratory system History of hemoptysis Personal history of other endocrine, nutritional and metabolic disease History of high cholesterol Personal history of other specified conditions History of palpitations Pure hypercholesterolemia, unspecified Elevated cholesterol Type 2 diabetes mellitus without complications ([facility]) DM (diabetes mellitus) Unspecified disorder of ear, unspecified ear Ear problems Unspecified disorder of nose and nasal sinuses Sinus disorder Unspecified osteoarthritis, unspecified site Arthritis Placement History: Date of last change: 12/08/2021 Previous Prosthesis Type/Size: 17 Fr, 10 mm, [employer] [place] Average Time Between Changes: 2-3 months. Patient waited more than 2-3 months for a TEP change. Use of topical anesthetic: 5ml. 2% viscous lidocaine was provided orally and an additional amount was topically applied to the area surrounding the puncture for patient comfort and to reduce the cough response. Additional Information: The stoma was functionally patent, clean and free from discrete lesions. The TEP demonstrated pistoning, however, has always been placed in a longer TEP to avoid granulation issues. I was able to free the tracheal flange and visualize it in its entirety. The TEP was distorted and discolored. Central TEP leakage was noted. It was determined that the TEP be changed and verbally consented. The TEP was removed with a pair of clamped hemostats. A new, already prepped, 17 Fr, 10 mm TEP was placed without incident or difficulty using a gel cap. Patient complaint: Patient reports leakage for the past two weeks as well as effortful phonation. Assessment: Pain: Patient has persisting shoulder and chest pain Swallowing: Patient reports increased difficulty with swallowing Procedure: Prosthesis Type/Size: 10 mm, 17 Fr Lot number: [id number] Dilation: Deferred Insertion Method: Gel capsule Evaluation: The TEP rotates freely within the tract. No central leakage observed. No peripheral leakage observed. Neophonation is characteristically fluent and functional. Speech continues to be dysarthric. Plan: 1. Discard the old cleaning brush and use the new brush provided. 2. F/u with [facility] at prescribed intervals. 3. F/u with [facility] as needed for TEP maintenance. documented in this encounter Plan of Treatment Upcoming Encounters Date Type Department Care Team ([facility] st Contact Info) Description 07/17/2024 12:30 PM EST Clinical Support [facility] [address] [facility] [place] [address] 07/17/2024 1:30 PM EST Appointment [facility] [address] [place] [phone] 07/20/2024 2:50 PM EST Office Visit [facility] [address] [place] [address] Divine Carpenter MD [address] [facility] [address] Zuniga [facility] [address] [place] [phone] documented as of this encounter Visit Diagnoses Diagnosis Aphonia- Primary documented in this encounter Additional Health Concerns Assessment Noted Time A fall risk assessment has been complete d for the patient 06/11/2022 10:00 AM EST A Body Mass Index follow-up plan has been documented for the patient 07/15/2022 1:51 PM EST documented as of this encounter Care Teams Salon Supervisor Relationship Specialty Start Date End Date Michele Wright MD [address] [place] [address] PCP - General 10/11/20 Edgar Szymanski MD [address] [facility] [address] [place] [phone] Radiation Oncologist Radiation Therapy 03/14/20 4 Shun Hurst MD [address] [facility] [address] [place] [address] Surgeon Neurosurgery 02/24/21 Divine Carpenter MD [address] [facility] [address] Zuniga [facility] [address] [place] [phone] Medical Oncologist Medical Oncology 06/13/21 documented as of this encounter
--- OUTSIDE RECORDS SUMMARY | 2024-05-03 13:38 | XMS_ITS | Encounter Summary ---
Author Organization Healthcare Address [address] [place] [address] Care Team Providers Care Party Plan Salesperson Name Role Phone Michele Wright MD Primary Care Provider + [phone] Edgar Szymanski MD Unavailable [phone] Shun Hurst MD Unavailable [phone] Divine Carpenter MD Unavailable [phone] Encounter Details Date Type Department Care Team (Latest Contact Info) Description 03/09/2022 Travel Social History Tobacco Use Types Packs/Day [...] [facility] [address] [facility], [address]nd [place] [phone] 07/17/2024 1:30 PM EST Appointment [facility] Radiology [address] [place] [phone] 07/20/2024 2:50 PM EST Office Visit [facility] [address] [facility], [address]nd [place] [phone] Divine Carpenter MD [address] [facility] Diane Zuniga [facility] [address] [place] [phone] documented as of this encounter Visit Diagnoses Not on filedocumented in this encounter Additional Health Concerns Assessment Noted Time A fall risk assessment has been complete d for the patient 12/08/2021 1:20 PM EDT documented as of this encounter Care Teams Party Plan Salesperson Relationship Specialty Start Date End Date Michele Wright MD [address] [place] [address] PCP - General 10/11/20 Edgar Szymanski MD [address] [facility] [address] [place] [phone] Radiation Oncologist Radiation Therapy 03/14/20 4 Shun Hurts MD [address] [facility] [address] [place] [phone] Surgeon Neurosurgery 02/24/21 Divine Carpenter MD [address] [facility] Diane Zuniga [facility] [address] [place] [address] Medical Oncologist Medical Oncology 06/13/21 documented as of this encounter
--- OUTSIDE RECORDS SUMMARY | 2024-05-03 13:38 | XMS_ITS | Encounter Summary ---
Author Organization [facility] Address [address] [place], [place] [address] Care Team Providers Care Winch Driver Name Role Phone Michele Wright MD Primary Care Provider + [phone] Edgar Szymanski MD Unavailable [phone] Shun Hurst MD Unavailable [phone] Divine Carpenter MD Unavailable [phone] Reason for Visit * Reason Onset Date Comments [facility] Same Day Appt/Overbook Request 07/13/2022 Encounter Details Date Type Department Care Team (Late st Contact Info) Description 07/13/2022 Telephone [facility] [address] [place] [phone] Divine Carpenter MD [address] [phone] [facility] Same Day Appt/Overbook Request Social History Tobacco Use Types Packs/Day Years [...] encounter Miscellaneous Notes * Telephone Encounter - Tres Ocasio, RN - 07/13/2022 12:46 PM EST I rescheduled the pt's port flush to Wednesday at 1:15 pm (same time as previous appt). I called the pt to notify, but he did not answer and no option to leave VM. * Telephone Encounter - Nedra Babcock - 07/13/2022 9:58 AM EST Same Day Appt/Overbook Request Reason for Call: Patient has an appt to have port flushed today but is asking it be changed to Wednesday Please call to let them know what time Best contact number: Other: [phone] Optimal time of day to reach caller: ANYTIME Additional comments/information from caller: None Note: Please do not reply to this message. Follow-up communication and further actions as a result of this message need to be communicated with the patient directly, if the patient is not active onMyChart. If the patient is active on MyChart, they will receive notification of the communication/outcome via [employer]. documented in this encounter Plan of Treatment Upcoming Encounters Date Type Department Care Team (Late st Contact Info) Description 07/17/2024 12:30 PM EST Clinical Support [facility] Res[facility] [address] [facility] [place] [address] 07/17/2024 1:30 PM EST Appointment [facility] Rad[facility] [address] [place] [address] 07/20/2024 2:50 PM EST Office Visit [facility] [address] [facility], [address] [place] [address] Divine Carpenter MD [address] [facility] Diane Zuniga [facility] [address] [place] [phone] documented as of this encounter Visit Diagnoses Not on filedocumented in this encounter Additional Health Concerns Assessment Noted Time A fall risk assessment has been complete d for the patient 06/11/2022 10:00 AM EST documented as of this encounter Care Teams Winch Driver Relationship Specialty Start Date End Date Michele Wright MD [address] [place] [address] PCP - General 10/11/20 Edgar Szymanski MD [address] [facility] [address] [place] [phone] Radiation Oncologist Radiation Therapy 03/14/20 4 Shun Hurst MD [address] [place] [phone] Surgeon Neurosurgery 02/24/21 Divine Carpenter MD [address] [facility] Diane Zuniga [facility] [address] [place] [address] Medical Oncologist Medical Oncology 06/13/21 documented as of this encounter
--- OUTSIDE RECORDS SUMMARY | 2024-05-03 13:38 | XMS_ITS | Encounter Summary ---
Author Organization [facility] Address [address] [place] [address] Care Team Providers Care Vocational Examiner Name Role Phone Michele Wright MD Primary Care Provider + [phone] Edgar Szymanski MD Unavailable [phone] Shun Hurst MD Unavailable [phone] Bailey Ellis MD Unavailable [phone] Reason for Referral * Imaging (Routine) - Closed Specialty Diagnoses / Procedures Referred By Contac t Referred To Contact Radiology Diagnoses 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) Procedures CT Abdomen Pelvis w IV Contrast Bailey Ellis MD [address] [address] Phone: tel: fax: Referral ID Status Reason Start Date Expiration Date Visits Re quested Visits Authorized [id number] Closed 03/14/2022 09/13/2023 1 1 * Imaging (Routine) - Closed Specialty Diagnoses / Procedures Referred By Contac t Referred To Contact Radiology Diagnoses 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) Procedures CT Soft Tissue Neck w IV Contrast Bailey Ellis MD [address] [address] Phone: tel: fax: Referral ID Status Reason Start Date Expiration Date Visits Re quested Visits Authorized [id number] Closed 03/14/2022 09/13/2023 1 1 * Imaging (Routine) - Closed Specialty Diagnoses / Procedures Referred By Contac t Referred To Contact Radiology Diagnoses 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) Procedures CT Chest w IV Contrast Bailey Ellis MD [address] [place] [address] [address]un[address] [address] Phone: tel: fax: Referral ID Status Reason Start Date Expiration Date Visits Re quested Visits Authorized [id number] Closed 03/14/2022 09/13/2023 1 1 Reason for Visit * Reason Comments Follow-up Encounter Details Date Type Department Care Team ([facility] st Contact Info) Description 03/16/2022 11:00 AM EDT Office Visit Pav CC Head, Neck & Respiratory [address] [facility], [address]nd [place] [address] Bailey Ellis MD [address] [place] [address] [address] 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 (Primary [...] Sign Reading Time Taken Comments Blood Pressure 147/73 03/16/2022 10:37 AM EDT Pulse 60 03/16/2022 10:37 AM EDT Temperature 36.8 ??C (98.3 ??F) 03/16/2022 10:37 AM E DT Respiratory Rate 20 03/16/2022 10:37 AM EDT Oxygen Saturation 96% 03/16/2022 10:37 AM EDT Inhaled Oxygen Concentration - - Weight 94 kg (207 lb 3.7 oz) 03/16/2022 10:37 AM EDT Height 176 cm (5' 9.29 ) 03/16/2022 10:37 AM EDT Body Mass Index 30.35 03/16/2022 10:37 AM EDT documented in this encounter Miscellaneous Notes * Progress Notes - Diann Sherman NP - 03/16/2022 11:00 AM EDT MEDICAL ONCOLOGY FOLLOW-UP NOTE Patient Information Patient Name: Anibal Barreto Date of : 1965 REFERRING PHYSICIAN: Michele Wright MD Encounter Date: 03/14/2022 Treatment Diagnosis: Cancer Staging Cancer of larynx [...] of Present Illness: Anibal Barreto is a 56 y.o. 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 Cancer of larynx ([facility]/HCC) 02/19/2017 Cancer Staged Staging form: Larynx - [...] 10/14/2020 03/14/2020 - 11/24/2020 Research Study Participant [id number]: Pembrolizumab Every 42 Days Every 84 Days Plan Provider: Bailey Ellis MD Treatment goal: Palliative Line of treatment: Second Line Associated studies: Priming Immunotherapy in Advanced Disease with Radiation 11/26/2020 - Radiation Therapy The patient saw No care velvet steamer to display for radiation treatment. This is the current list ofradiation treatment: Radiation Treatments No radiation treatments to show. (Treatments may have been administered in another system.) 12/09/2020 - Radiation Therapy The patient saw No care velvet steamer to display for radiation treatment. This [...] mg (01/27/2021), 130 mg (02/17/2021) 03/10/2021 - Chemotherapy CARBOplatin (Paraplatin) 750 mg in sodium [...] Radiation Therapy The patient saw No care velvet steamer to display for radiation treatment. This is the current list ofradiation treatment: Radiation Treatments No radiation treatments to show. (Treatments may have been administered in another system.) 11/26/2020 Initial Diagnosis Secondary malignant neoplasm of chest wall (CMS/HCC) 12/09/2020 - Radiation Therapy The patient saw No care velvet steamer to display for radiation treatment. This is the current list ofradiation treatment: Radiation Treatments No radiation treatments to show. (Treatments may have been administered in another system.) Currently, he denies fever, or chills, dysuria, hematuria, constipation, melena, diarrhea, hematochezia, hematemesis, abdominal pain, shortness of breath, cough, sputum production, mental status changes, neuropathy, chest pain, palpitations, rash, itching, dysphagia, voice changes, hearing loss, visual changes, stridor. He had EGD with dilation 02/19/22 and reports dysphagia much improved. He denies any new concerns or complaints. Problem List and Medications Reviewed in this encounter by me personally Objective Performance Status 0 EXAM General: Sitting/resting comfortably in chair, NAD HEENT: NCAT, PERRLA/EOMI, anicteric; no oral lesions Neck: Supple, no lymphadenopathy or JVD, tracheostomy midline with speaking valve in place Heart: RRR, no MGR Lungs: CTAB; no rales, rhonchi or wheezes Abdomen: Soft, NTND, + BS Extremities: No edema, distal pulses intact Musculoskeletal: No focal tenderness or deformity Skin: No visible rashes or lesions Neuro: Grossly nonfocal; no localizing deficits of strength, sensation, or mentation Psychiatric: Appropriate to situation LABORATORIES STUDIES: reviewed by me personally today to monitor for cancer related drug toxicity and treatment related longwall foreman toxicity CBC WBC 4.51 Hgb 13.5 PLT 165 HCT 41.7 Lab Results Component Value Date NEUTROABS 3.51 03/09/2022 BMPL Na 140 Cl 101 BUN 15 Gluc 108 K 3.9 Co2 30 Creat 0.83 LIVER FUNCTION TESTING Tot Prot 7.2 AST 13 Tot bili 0.3 ALT 7 Alkphos 78 Ca 9.8 Mg 1.6 Phos 3.9 Lab Results Component Value Date TSH 0.69 03/09/2022 RADIOLOGY: I visualized the recent imaging below and discussed the current radiology findings with the patientin detail and provided the report to the patient and answered all questions. CT Soft Tissue Neck w IV Contrast Result Date: 03/09/2022 Impression: 1. Postoperative changes from prior total laryngectomy, bilateral neck dissection and atracheostomy in situ. Treatment related changes from prior radiation therapy. 2. No asymmetric softtissue or lymphadenopathy is seen to suggest neoplastic recurrence. No significant interval change compared to prior CT exam dated 12/04/2021 and 08/14/2021. CRITICAL RESULT: No. COMMUNICATION: Per thiswritten report. Dictated by Veronica Mejia MD on 03/09/2022 6:31 PM Signed by Veronica Mejia MD on 03/09/2022 6:[address] Chest w IV Contrast Result Date: 03/09/2022 Impression: No evidence of thoracic progression. CRITICAL RESULT: No. COMMUNICATION: Per this written report. Dictated by Louie Liu MD on 03/09/2022 11:35 AM Signed by Louie Liu MD on 03/09/2022 11:37 AM Assessment/Plan 1. Cancer management : Cancer Staging [...] great response and NO PROGRESSIVE DISEASE - RTC in 3M with repeat scans. Plan to continue to hold treatment. 2. Pain related to neoplasm: chronic with significant relief on Morphine and oxycodone - continue current pain medicines - The patient continues to experience pain directly related to their neoplasm requiring monitoring and adjustments in dosage and frequency of narcotic and adjunctive medications by me. KEVAN report reviewed and will be reviewed periodically 3. Malnutrition secondary to cancer and dysphagia: - Weight stable - Had EGD with dilation on 02/19/22. Pt reports another dilation sched for Nov. Dysphagia greatly improved 4. Monitoring for the emergence of hypothyroidism - Continue levothyroxine at current dose This will be periodically monitored as we continue therapy, due to the potential for worsening of thyroid function from radiation and systemic cancer therapy. 5. COVID infection - now recovered - s/p Tammie Ellis MD Orders Placed This Encounter Procedures CT Chest w IV Contrast CT Soft Tissue Neck w IV Contrast CT Abdomen Pelvis w IV Contrast CBC and Differential Comprehensive Metabolic Panel, Plasma Thyroid Stimulating Hormone, Plasma I updated the plan of care. This treatment will require ongoing monitoring of toxicity due to the risks of severe side effects from the therapy listed above. The selection, dosing and administration of anti-cancer agents and the management of associated toxicities requires complex medical decision making. Modifications of drug dose and schedule as well as the initiation of supportive care interventions are often necessary because of expected toxicities. This varies individually based on patienttolerability, prior treatments and comorbidities. The optimal delivery of anticancer agents requires a healthcare delivery team experienced in the use of anticancer agents and the management of associated toxicities in patients with cancer. Attending physician previously developed plan of care, which I discussed with the patient, whom I saw independently. The patient verbalized understanding and agrees with plan. All questions answered to their satisfaction. Encouraged to call should other questions/concerns arise. D[facility]n [facility] [address] [place] [phone] documented in this encounter Plan of Treatment Upcoming Encounters Date Type Department Care Team (Late st Contact Info) Description 07/17/2024 12:30 PM EST Clinical Support Pav CC Head, Neck & Respiratory [address] [facility], [address] [place] [address] 07/17/2024 1:30 PM EST Appointment PAV G Radiology [address] [place] [address] 07/20/2024 2:50 PM EST Office Visit Pav CC Head, Neck & Respiratory [address] [facility], [address] [place] [address] Bailey Ellis MD [address] [facility] [address] [place] [address] documented as of this encounter Results * [...] W IV CONTRAST ordered by BAILEY ELLIS, [id number] CLINICAL INDICATION: Non-small cell lung cancer, metastatic, [...] PELVIS W IV CONTRASTordered by BAILEY ELLIS, [id number] CLINICAL INDICATION: Non-small cell lung cancer, metastatic, [...] signing this report, I, the attending physician, alanat I have personally reviewed the images/data for [...] W IV CONTRAST ordered by BAILEY ELLIS, [id number] CLINICAL INDICATION: Laryngeal cancer status post chemoradiation [...] W IV CONTRAST ordered by BAILEY MOREIRA, [id number] CLINICAL INDICATION: Laryngeal cancer status post chemoradiation [...] W IV CONTRAST ordered by BAILEY ELLIS, [id number] CLINICAL INDICATION: Non-small cell lung cancer, metastatic, [...] PELVIS W IV CONTRASTordered by BAILEY ELLIS, [id number] CLINICAL INDICATION: Non-small cell lung cancer, metastatic, [...] IMG CT PROCEDURES Final Resu lt * Thyroid Stimulating Hormone, Plasma (06/09/2022 10:21 AM EST) Thyroid Stimulating Hormone, Plasma 1.27 0.40 - 4.20 uIU/mL 06/09/2022 11:27 AM EST [facility] Blood Venous blood specimen / Unknown (Port) Long-term Catheter / Unknown 06/09/2022 10:21 AM EST 06/09/2022 10:50 AM EST Bailey Ellis MD LAB BLOOD ORDERABLES Final R esult Performing Organization Address City/State/[facility] Co de Phone Number [facility] [address] [place] [address] * (ABNORMAL) Comprehensive Metabolic Panel, Plasma (06/09/2022 10:21 AM EST) Glucose, Plasma 101(H) 74 - 99 mg/dL 06/09/2022 11:27 AM EST [facility] BUN, Plasma 12 7 - 21 mg/dL 06/09/2022 11:27 AM EST [facility] Creatinine, Plasma 0.85 0.80 - 1.30 mg/dL 06/09/2022 11:27 AM EST [facility] BUN/Creatinine Ratio 14 06/09/2022 11:27 AM EST [facility] Sodium, Plasma 138 136 - 145 mmol/L 06/09/2022 11:27 AM EST [facility] Potassium, Plasma 3.8 3.7 - 4.8 mmol/L 06/09/2022 11:27 AM EST [facility] Comment:Reference range for Serum potassium is 0.2 to 0.5 mmol/L higher than Plasma range. Chloride, Plasma 100 97 - 107 mmol/L 06/09/2022 11:27 AM EST [facility] CO2, Plasma 30(H) 22 - 29 mmol/L 06/09/2022 11:27 AM EST [facility] Anion Gap 8 6 - 16 mmol/L 06/09/2022 11:27 AM EST [facility] Total Calcium, Plasma 9.5 8.9 - 10.2 mg/dL 06/09/2022 11:27 AM EST [facility] Total Protein 7.3 6.3 - 7.9 g/dL 06/09/2022 11:27 AM EST [facility] Albumin, Plasma 4.3 3.5 - 5.2 g/dL 06/09/2022 11:27 AM EST [facility] AST, Plasma 16 12 - 40 U/L 06/09/2022 11:27 AM EST [facility] ALT, Plasma 12 11 - 41 U/L 06/09/2022 11:27 AM EST [facility] Alkaline Phosphatase, Plasma 80 40 - 115 U/L 06/09/2022 11:27 AM EST [facility] Total Bilirubin, Plasma 0.5 0.2 - 1.1 mg/dL 06/09/2022 11:27 AM EST [facility] eGFRcr 102.0 mL/min/1.7 3m*2 06/09/2022 11:27 AM EST [facility] Comment: Reported eGFRcr in mL/min/1.73m2 is based the CKD-EPI 2020 equation that does not use a race coefficient. Effective 12/24/21 our laboratory changed the eGFR calculation to the CKD-EPI 2021 equation from the previously reported eGFR, based on the MDRD equation. ??For comparisons between the two equations, please see laboratory website: ??[email or web address] Blood Venous blood specimen / Unknown (Port) Long-term Catheter / Unknown 06/09/2022 10:21 AM EST 06/09/2022 10:50 AM EST us Bailey Ellis MD LAB BLOOD ORDERABLES Final R esult [facility] [address] [place] [address] * (ABNORMAL) CBC and Differential (06/09/2022 10:21 AM EST) WBC Count 4.86 3.70 - 10.30 10*3/uL LAB HEMATOLOGY METHOD 06/09/2022 10:57 AM EST [facility] RBC Count 5.27 4.60 - 6.10 10*6/uL LAB HEMATOLOGY METHOD 06/09/2022 10:57 AM [facility] HGB 14.7 13.7 - 17.5 g/dL LAB HEMATOLOGY METHOD 06/09/2022 10:57 AM [facility] HCT 45.7 40.0 - 51.0 % LAB HEMATOLOGY METHOD 06/09/2022 10:57 AM [facility] Platelet Count 148(L) 155 - 369 10*3/uL LAB HEMATOLOGY METHOD 06/09/2022 10:57 AM [facility] MCV 87 79 - 98 fL LAB HEMATOLOGY METHOD 06/09/2022 10:57 AM [facility] MCH 27.9 26.0 - 32.0 pg LAB HEMATOLOGY METHOD 06/09/2022 10:57 AM [facility] MCHC 32.2 30.7 - 35.5 g/dL LAB HEMATOLOGY METHOD 06/09/2022 10:57 AM [facility] RDW 13.9 11.5 - 14.5 % LAB HEMATOLOGY METHOD 06/09/2022 10:57 AM [facility] MPV 10.5 8.8 - 12.5 fL LAB HEMATOLOGY METHOD 06/09/2022 10:57 AM [facility] nRBC 0.0 <=0.0 per 100 WBCs LAB HEMATOLOGY METHOD 06/09/2022 10:57 AM [facility] Differential Type Automated LAB HEMATOLOGY METHOD 06/09/2022 10:57 AM [facility] Neutrophils % 71.0 % LAB HEMATOLOGY METHOD 06/09/2022 10:57 AM [facility] Lymphocytes % 13.0 % LAB HEMATOLOGY METHOD 06/09/2022 10:57 AM [facility] Monocytes % 12.0 % LAB HEMATOLOGY METHOD 06/09/2022 10:57 AM [facility] Eosinophils % 3.0 % LAB HEMATOLOGY METHOD 06/09/2022 10:57 AM [facility] Basophils % 0.0 % LAB HEMATOLOGY METHOD 06/09/2022 10:57 AM [facility] Immature Granulocytes % 1.0 % LAB HEMATOLOGY METHOD 06/09/2022 10:57 AM [facility] Neutrophils Absolute 3.49 1.60 - 6.10 10*3/uL LAB HEMATOLOGY METHOD 06/09/2022 10:57 AM [facility] Lymphocytes Absolute 0.62(L) 1.20 - 3.90 10*3/uL LAB HEMATOLOGY METHOD 06/09/2022 10:57 AM [facility] Monocytes Absolute 0.56 0.30 - 0.90 10*3/uL LAB HEMATOLOGY METHOD 06/09/2022 10:57 AM EST [facility] Eosinophils Absolute 0.14 0.00 - 0.50 10*3/uL LAB HEMATOLOGY METHOD 06/09/2022 10:57 AM EST [facility] Basophils Absolute 0.02 0.00 - 0.10 10*3/uL LAB HEMATOLOGY METHOD 06/09/2022 10:57 AM EST [facility] Immature Granulocytes Absolute 0.03 0.00 - 0.06 10*3/uL LAB HEMATOLOGY METHOD 06/09/2022 10:57 AM EST [facility] Blood Venous blood specimen / Unknown (Port) Long-term Catheter / Unknown 06/09/2022 10:21 AM EST 06/09/2022 10:50 AM EST Narrative [facility] - 06/09/2022 10:57 AM EST Therapeutic decision making should be based on absolute values, rather than percentages. Bailey Ellis MD LAB BLOOD ORDERABLES Final R esult [facility] [address] [place] [address] documented in this encounter Visit Diagnoses Diagnosis [...] documented as of this encounter Care Teams Vocational Examiner Relationship Specialty Start Date End Date Michele Wright MD [address] [place] [address] PCP - General 10/11/20 Edgar Szymanski MD [address] [facility] [address] [place] [address] Radiation Oncologist Radiation Therapy 03/14/20 4 Shun Hurst MD [address] [facility] [address] [place] [phone] Surgeon Neurosurgery 02/24/21 Bailey Ellis MD [address] [facility] [address] [place] [phone] Medical Oncologist Medical Oncology 06/13/21 documented as of this encounter
--- OUTSIDE RECORDS SUMMARY | 2024-05-03 13:38 | XMS_ITS | Encounter Summary ---
Author Organization Healthcare Address [address] [place] [address] Care Team Providers Care Agent Spa Desk Name Role Phone Michele Wright MD Primary Care Provider + [phone] Edgar Szymanski MD Unavailable [phone] Shun Hurst MD Unavailable [phone] Divine Carpenter MD Unavailable [phone] Encounter Details Date Type Department Care Team (Latest Contact Info) Description 05/04/2022 Travel Social History Tobacco Use Types Packs/Day [...] Upcoming Encounters Date Type Department Care Team ([facility] st Contact Info) Description 07/17/2024 12:30 PM EST Clinical Support Pav CC Head, Neck & Respiratory [address] [facility], [address] [place] [address] 07/17/2024 1:30 PM EST Appointment PAV G Radiology [address] [place] [address] 07/20/2024 2:50 PM EST Office Visit Pav CC Head, Neck & Respiratory [address] [facility] [place] [address] Divine Carpenter MD [address] [facility] [address] [facility] [address] [place] [address] documented as of this encounter Visit Diagnoses Not on filedocumented in this encounter Additional Health Concerns Assessment Noted Time A fall risk assessment has been complete d for the patient 03/16/2022 10:36 AM EDT documented as of this encounter Care Teams Agent Spa Desk Relationship Specialty Start Date End Date Michele Wright MD [address] [place] [address] PCP - General 10/11/20 Edgar Szymanski MD [address] [facility] [address] [place] [address] Radiation Oncologist Radiation Therapy 03/14/20 4 Shun Hurst MD [address] [facility] [address] [place] [phone] Surgeon Neurosurgery 02/24/21 Divine Carpenter MD [address] [facility] [address] [facility] [address] [place] [address] Medical Oncologist Medical Oncology 06/13/21 documented as of this encounter
--- OUTSIDE RECORDS SUMMARY | 2024-05-03 13:38 | XMS_ITS | Encounter Summary ---
Author Organization Healthcare Address [address] [place] [address] Care Team Providers Care Pile Header Name Role Phone Michele Wright MD Primary Care Provider + [phone] Edgar Szymanski MD Unavailable [phone] Shun Hurst MD Unavailable [phone] Divine Carpenter MD Unavailable [phone] Encounter Details Date Type Department Care Team (Latest Contact Info) Description 04/06/2022 Travel Social History Tobacco Use Types Packs/Day [...] suspected to have Coronavirus/COVID-19? No / Unsure 04/06/2022 10:07 AM EST documented as of this encounter Plan of Treatment Upcoming Encounters Date Type Department Care Team ([facility] st Contact Info) Description 07/17/2024 12:30 PM EST Clinical Support Pav CC Head, Neck & Respiratory [address] [facility], [address] [place] [address] 07/17/2024 1:30 PM EST Appointment PAV G Radiology [address] [place] [phone] 07/20/2024 2:50 PM EST Office Visit Pav CC Head, Neck & Respiratory [address] [facility], [address] [place] [phone] Divine Carpenter MD [address] [facility] [address] Zuniga [facility] [address] [place] [address] documented as of this encounter Visit Diagnoses Not on filedocumented in this encounter Additional Health Concerns Assessment Noted Time A fall risk assessment has been complete d for the patient 03/16/2022 10:36 AM EDT documented as of this encounter Care Teams Pile Header Relationship Specialty Start Date End Date Michele Wright MD [address] [place] [address] PCP - General 10/11/20 Edgar Szymanski MD [address] [facility] [address] [place] [address] Radiation Oncologist Radiation Therapy 03/14/20 4 Shun Hurst MD [address] [facility] [address] [place] [phone] Surgeon Neurosurgery 02/24/21 Divine Carpenter MD [address] [facility] [address] [facility] [address] [place] [address] Medical Oncologist Medical Oncology 06/13/21 documented as of this encounter
--- OUTSIDE RECORDS SUMMARY | 2024-05-03 13:39 | XMS_ITS | Encounter Summary ---
Author Organization Healthcare Address [address] [place] [address] Care Team Providers Care Senior Front End Web Developer Name Role Phone Michele Wright MD Primary Care Provider + [phone] Edgar Szymanski MD Unavailable [phone] Shun Hurst MD Unavailable [phone] Divine Carpenter MD Unavailable [phone] Encounter Details Date Type Department Care Team (Latest Contact Info) Description 02/26/2022 Travel Social History Tobacco Use Types Packs/Day [...] suspected to have Coronavirus/COVID-19? No / Unsure 02/26/2022 1:07 PM EDT documented as of this encounter Plan of Treatment Upcoming Encounters Date Type Department Care Team (Late st Contact Info) Description 07/17/2024 12:30 PM EST Clinical Support Pav CC Head, Neck & Respiratory [address] [facility], 2nd [place] [address] 07/17/2024 1:30 PM EST Appointment PAV G Radiology [address] [place] [phone] 07/20/2024 2:50 PM EST Office Visit Pav CC Head, Neck & Respiratory [address] [facility], 2nd [place] [phone] Divine Carpenter MD [address] [facility] Diane Zuniga [facility] [address] [place] [phone] documented as of this encounter Visit Diagnoses Not on filedocumented in this encounter Additional Health Concerns Assessment Noted Time A fall risk assessment has been complete d for the patient 12/08/2021 1:20 PM EDT documented as of this encounter Care Teams Senior Front End Web Developer Relationship Specialty Start Date End Date Michele Wright MD [address] [place] [address] PCP - General 10/11/20 Edgar Szymanski MD 800 [facility] [address] [place] [phone] Radiation Oncologist Radiation Therapy 03/14/20 4 Shun Hurst MD [address] [facility] [address] [place] [phone] Surgeon Neurosurgery 02/24/21 Divine Carpenter MD [address] [facility] Diane Zuniga [facility] [address] [place] [address] Medical Oncologist Medical Oncology 06/13/21 documented as of this encounter
--- OUTSIDE RECORDS SUMMARY | 2024-05-03 13:39 | XMS_ITS | Encounter Summary ---
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) Procedures CT Soft Tissue Neck w IV Contrast Bailey Ellis MD [address] [address] Phone: tel: fax: Referral ID Status Reason Start Date Expiration Date Visits Re quested Visits Authorized [id number] Closed 12/06/2021 06/07/2023 1 1 * Imaging (Routine) - Closed Specialty Diagnoses / Procedures Referred By Contac Referred To Contact Radiology Diagnoses 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) Procedures CT Chest w IV Contrast Bailey Ellis MD [address] [address] Phone: tel: fax: Referral ID Status Reason Start Date Expiration Date Visits Re quested Visits Authorized [id number] Closed 12/06/2021 06/07/2023 1 1 Reason for Visit * Reason Comments Follow-up Encounter Details Date Type Department Care Team ([facility] st Contact Info) Description 12/08/2021 2:00 PM EDT Office Visit Pav CC Head, Neck & Respiratory 800 [facility], 2nd [place] [address] Bailey Ellis MD 800 [facility] [address] [place] [address] Secondary malignant neoplasm of chest wall (CMS/HCC) (Primary Dx); 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 No / Unsure 12/08/2021 12:46 PM EDT documented as of this encounter Last Filed Vital Signs Vital Sign Reading Time Taken Comments Blood Pressure 157/60 12/08/2021 1:18 PM EDT Pulse 57 12/08/2021 1:18 PM EDT Temperature 36.9 ??C (98.4 ??F) 12/08/2021 1:18 PM ED T Respiratory Rate 18 12/08/2021 1:18 PM EDT Oxygen Saturation 96% 12/08/2021 1:18 PM EDT Inhaled Oxygen Concentration - - Weight 93.5 kg (206 lb 2.1 oz) 12/08/2021 1:18 P M EDT Height 177.8 cm (5' 10 ) 12/08/2021 1:18 PM EDT Body Mass Index 29.58 12/08/2021 1:18 PM EDT documented in this encounter Miscellaneous Notes * Progress Notes - Eusebio Watkins - 12/08/2021 2:00 PM EDT MEDICAL ONCOLOGY FOLLOW-UP NOTE Patient Information Patient Name: Anibal Barreto Date of : 1965 REFERRING PHYSICIAN: Michele Wright MD Encounter Date: 12/08/2021 Treatment Diagnosis: Cancer Staging Cancer of larynx [...] and for reassessment of response to current therapy. Oncology History Overview Note Mr Anibal Barreto [...] with adenopathy in levels 2 through 4 [id number] 3 PET/CT scan dated 02/19/2017 showed an intensely hypermetabolic epiglottis and mucosa extending to the true vocal cords, slightly asymmetric involving the right pyriform sinus and aryepiglottic fold with 27 4 mSUV along with intensely hypermetabolic bilateral cervical lymph nodes 4 A biopsy performed here at [facility] during direct examination on 03/03/2017 [...] limited neck dissection with ALT free flap, [id number] 7 Subsequent followup scans were negative for [...] treatment break on 08/18/21. Cancer of larynx ([facility]/HCC) 02/19/2017 Cancer Staged Staging form: Larynx - Glottis, AJCC 8th Edition, Clinical stage from 02/19/2017: Stage ZULAY (cT3, cN2c, cM0) - Signed by Bailey Ellis MD on 10/14/2020 03/18/2017 Initial Diagnosis Cancer of larynx ([facility]/HCC) 03/22/2018 Cancer Staged Staging form: Larynx - Glottis, AJCC 8th Edition, Pathologic stage from 03/22/2018: Stage III (rpT3, pN0, cM0) - Signed by Bailey Ellis MD on 10/14/2020 11/21/2019 Cancer Staged Staging form: Larynx - Glottis, AJCC 8th Edition, Pathologic stage from 11/21/2019: Stage IVC (rpTX,pNX, pM1) - Signed by Bailey Ellis MD on 10/14/2020 03/14/2020 - 11/24/2020 Research Study Participant [id number]: Pembrolizumab Every 42 Days Every 84 Days Plan Provider: Bailey Ellis MD Treatment goal: Palliative Line of treatment: Second Line Associated studies: Priming Immunotherapy in Advanced Disease with Radiation 11/26/2020 - Radiation Therapy The patient saw No care lift team technician to display for radiation treatment. This is the current list ofradiation treatment: Radiation Treatments No radiation treatments to show. (Treatments may have been administered in another system.) 12/09/2020 - Radiation Therapy The patient saw No care lift team technician to display for radiation treatment. This is [...] Radiation Therapy The patient saw No care lift team technician to display for radiation treatment. This is the current list ofradiation treatment: Radiation Treatments No radiation treatments to show. (Treatments may have been administered in another system.) 11/26/2020 Initial Diagnosis Secondary malignant neoplasm of chest wall (CMS/HCC) 12/09/2020 - Radiation Therapy The patient saw No care lift team technician to display for radiation treatment. This is the current list ofradiation treatment: Radiation Treatments No radiation treatments to show. (Treatments may have been administered in another system.) INTERVAL HISTORY Patient returns to the clinic after his last appointment. Since then he reports no major complaints. He has been doing fairly well. Occasionally has dysphagia, and is requesting a re-evaluation by ENT doctor who did his dilation before. Patient also states he is due for replacement of his prosthesis in his truck. Appetite is good, weight has been stable. Currently, he denies fever, or chills, dysuria, hematuria, constipation, melena, diarrhea, hematochezia, hematemesis, abdominal pain, shortness of breath, cough, sputum production, mental status changes, neuropathy, chest pain, palpitations, rash, itching, dysphagia, voice changes, hearing loss, visual changes, stridor. Problem List and Medications Reviewed in this encounter by me personally Objective Performance Status 0: Fully active, able to carry on all pre-disease performance without restriction Vitals 07/28/2021 07/30/2021 08/01/2021 08/18/2021 12/08/2021 Systolic 163 114 146 145 157 Diastolic 79 58 83 75 60 Pulse 76 69 66 67 57 Temp 37.0 C 36.9 C 36.8 C 37.1 C 36.9 C Resp 18 18 18 16 18 Height (cm) 177.8 cm - 177.8 cm 178 cm 177.8 cm Weight (kg) 93.2 kg - 88.5 kg 93.8 kg 93.5 kg BMI (kg/m2) 29.48 kg/m2 - 27.99 kg/m2 29.6 kg/m2 29.58 kg/m2 BSA (m2) 2.15 m2 - 2.09 m2 2.15 m2 2.15 m2 VISIT REPORT - - - - - Some recent data might be hidden EXAM Physical Exam Constitutional: General: He is [...] and treatment related penitentiary toxicity CBC WBC 5.25 Hgb 12.5 PLT 144 HCT 38.8 Lab Results Component Value Date NEUTROABS 3.92 12/04/2021 BMPL Na 138 Cl 100 BUN 16 Gluc 103 K 4.3 Co2 30 Creat 0.77 LIVER FUNCTION TESTING Tot Prot 7.1 AST 16 Tot bili 0.5 ALT 8 Alkphos 76 Ca 9.1 Mg 1.6 Phos 3.9 Lab Results Component Value Date TSH 0.47 12/04/2021 RADIOLOGY: I visualized the recent imaging below and discussed the current radiology findings with the patientin detail and provided the report to the patient and answered all questions. CT Soft Tissue Neck w IV Contrast Result Date: 12/04/2021 Impression: Unchanged since the previous CT examination of 14-Aug-21. No recurrence. Right hemiatrophy of the tongue. Extensive surgical/treatment changes. Elias Washburn M.D. This report has been electronically signed and verified by the Radiologist whose name is printed above. / This report [...] error, please notify the sender immediately at [phone] and permanently delete the original report and destroy any copies or printouts. CT Chest w IV Contrast Result Date: 12/04/2021 Impression: Waxing and waning nodular thickening of the right apex, worsened since July 2021, indeterminate. No new suspicious lesions. CRITICAL RESULT: No. COMMUNICATION: Per this written report. Dictated by Brianna Carranza on 12/04/2021 4:29 PM Signed by Brianna Carranza on 12/04/2021 4:39 PM Assessment/Plan 1. Cancer management : Cancer [...] versus peg tube placement 4. Monitoring for the emergence of hypothyroidism - Continue levothyroxine at current dose This will be periodically monitored as we continue therapy, due to the potential for worsening of thyroid function from radiation and systemic cancer therapy. 5. COVID infection - now recovered - s/p Tammie Conteh MD. Cosigned by Bailey Ellis MD at 12/08/2021 10:10 PM EDT Associated attestation - Bailey Ellis MD - 12/08/2021 10:10 PM EDT I saw and evaluated the [...] Respiratory [address] [facility], 2nd [place] [address] 07/17/2024 1:30 PM EST Appointment PAV G Radiology [address] [place] [address] 07/20/2024 2:50 PM EST Office Visit Pav CC Head, Neck & Respiratory [address] [facility], [address]nd [place] [address] Bailey Ellis MD 800 [facility] [address] [place] [address] documented as of this encounter Results * [...] W IV CONTRAST ordered by BAILEY ELLIS, [id number] CLINICAL INDICATION: 56-year-old patient with carcinoma of [...] W IV CONTRAST ordered by BAILEY MOREIRA, [id number] CLINICAL INDICATION: 56-year-old patient with carcinoma of [...] CHEST W IV CONTRAST ordered by BAILEY ELLIS [id number] CLINICAL INDICATION: Non-small cell lung cancer, metastatic, [...] CHEST W IV CONTRAST ordered by BAILEY ELLIS,[id number] CLINICAL INDICATION: Non-small cell lung cancer, metastatic, [...] esophagus. No enlarging mediastinal adenopathy. Left chest [id number] tip at the superior vena cava. No [...] Louie Liu MD on 03/09/2022 11:37 AM Bailey Ellis MD IMG CT PROCEDURES Final Resu lt * Thyroid Stimulating Hormone, Plasma (03/09/2022 9:32 AM EDT) [facility] Thyroid Stimulating Hormone, Plasma 0.69 0.40 - 4.20 uIU/mL 03/09/2022 10:34 AM EDT [facility] Blood Venous blood specimen / Unknown (Port) Long-term Catheter / Unknown 03/09/2022 9:32 AM EDT 03/09/2022 9:52 AM EDT Bailey Ellis MD LAB BLOOD ORDERABLES Final R esult [facility] [address] [place] [address] * (ABNORMAL) Comprehensive Metabolic Panel, Plasma (03/09/2022 9:32 AM EDT) [facility] Glucose, Plasma 108(H) 74 - 99 mg/dL 03/09/2022 10:34 AM EDT [facility] BUN, Plasma 15 7 - 21 mg/dL 03/09/2022 10:34 AM EDT [facility] Creatinine, Plasma 0.83 0.80 - 1.30 mg/dL 03/09/2022 10:34 AM EDT [facility] BUN/Creatinine Ratio 18 03/09/2022 10:34 AM EDT [facility] Sodium, Plasma 140 136 - 145 mmol/L 03/09/2022 10:34 AM EDT [facility] Potassium, Plasma 3.9 3.7 - 4.8 mmol/L 03/09/2022 10:34 AM EDT [facility] Comment:Reference range for Serum potassium is 0.2 to 0.5 mmol/L higher than Plasma range. Chloride, Plasma 101 97 - 107 mmol/L 03/[facility]2022 10[facility] CO2, Plasma 30(H) 22 - 29 mmol/L 03/09/2022 10:[facility] Anion Gap 9 6 - 16 mmol/L 03/09/2022 10:34 [facility] Total Calcium, Plasma 9.8 8.9 - 10.2 mg/dL 03/09/2022 10:34 AM [facility] Total Protein 7.2 6.3 - 7.9 g/dL 03/09/2022 10:34 AM [facility] Albumin, Plasma 4.3 3.5 - 5.2 g/dL 03/09/2022 10:34 AM [facility] AST, Plasma 13 12 - 40 U/L 03/09/2022 10:34 AM [facility] ALT, Plasma 7(L) 11 - 41 U/L 03/09/2022 10:34 AM [facility] Alkaline Phosphatase, Plasma 78 40 - 115 U/L 03/09/2022 10:34 AM [facility] Total Bilirubin, Plasma 0.3 0.2 - 1.1 mg/dL 03/09/2022 10:34 AM [facility] eGFRcr 103.4 mL/min/1.7 3m*2 03/09/2022 10:34 AM [facility] Comment: Reported eGFRcr in mL/min/1.73m2 is based the CKD-EPI 2021 equation that does not use a race coefficient. Effective 12/24/21 our laboratory changed the eGFR calculation to the CKD-EPI 2021 equation from the previously reported eGFR, based on the MDRD equation. ??For comparisons between the two equations, please see laboratory website: ??[email or web address] Blood Venous blood specimen / Unknown (Port) Long-term Catheter / Unknown 03/09/2022 9:32 AM EDT 03/09/2022 9:52 AM EDT us Bailey Ellis MD LAB BLOOD ORDERABLES Final R esult [facility] [address] [place] [address] * (ABNORMAL) CBC and Differential (03/09/2022 9:32 AM EDT) WBC Count 4.51 3.70 - 10.30 10*3/uL LAB HEMATOLOGY METHOD 03/09/2022 10:38 AM EDT [facility] RBC Count 4.87 4.60 - 6.10 10*6/uL LAB HEMATOLOGY METHOD 03/09/2022 10:38 AM EDT [facility] HGB 13.5(L) 13.7 - 17.5 g/dL LAB HEMATOLOGY METHOD 03/09/2022 10:38 AM EDT [facility] HCT 41.7 40.0 - 51.0 % LAB HEMATOLOGY METHOD 03/09/2022 10:38 AM EDT [facility] Platelet Count 165 155 - 369 10*3/uL LAB HEMATOLOGY METHOD 03/09/2022 10:38 AM EDT [facility] MCV 86 79 - 98 fL LAB HEMATOLOGY METHOD 03/09/2022 10:38 AM EDT [facility] MCH 27.7 26.0 - 32.0 pg LAB HEMATOLOGY METHOD 03/09/2022 10:38 AM EDT [facility] MCHC 32.4 30.7 - 35.5 g/dL LAB HEMATOLOGY METHOD 03/09/2022 10:38 AM EDT [facility] RDW 14.6(H) 11.5 - 14.5 % LAB HEMATOLOGY METHOD 03/09/2022 10:38 AM EDT [facility] MPV 11.1 8.8 - 12.5 fL LAB HEMATOLOGY METHOD 03/09/2022 10:38 AM EDT [facility] nRBC 0.0 <=0.0 per 100 WBCs LAB HEMATOLOGY METHOD 03/09/2022 10:38 AM EDT [facility] Differential Type Automated LAB HEMATOLOGY METHOD 03/09/2022 10:38 AM EDT [facility] Neutrophils % 78.0 % LAB HEMATOLOGY METHOD 03/09/2022 10:38 AM EDT [facility] Lymphocytes % 11.0 % LAB HEMATOLOGY METHOD 03/09/2022 10:38 AM EDT [facility] Monocytes % 9.0 % LAB HEMATOLOGY METHOD 03/09/2022 10:38 AM EDT [facility] Eosinophils % 2.0 % LAB HEMATOLOGY METHOD 03/09/2022 10:38 AM EDT [facility] Basophils % 0.0 % LAB HEMATOLOGY METHOD 03/09/2022 10:38 AM EDT [facility] Immature Granulocytes % 0.0 % LAB HEMATOLOGY METHOD 03/09/2022 10:38 AM EDT [facility] Neutrophils Absolute 3.51 1.60 - 6.10 10*3/uL LAB HEMATOLOGY METHOD 03/09/2022 10:38 AM EDT [facility] Lymphocytes Absolute 0.48(L) 1.20 - 3.90 10*3/uL LAB HEMATOLOGY METHOD 03/09/2022 10:38 AM EDT [facility] Monocytes Absolute 0.40 0.30 - 0.90 10*3/uL LAB HEMATOLOGY METHOD 03/09/2022 10:38 AM EDT [facility] Eosinophils Absolute 0.09 0.00 - 0.50 10*3/uL LAB HEMATOLOGY METHOD 03/09/2022 10:38 AM EDT [facility] Basophils Absolute 0.02 0.00 - 0.10 10*3/uL LAB HEMATOLOGY METHOD 03/09/2022 10:38 AM EDT [facility] Immature Granulocytes Absolute 0.01 0.00 - 0.06 10*3/uL LAB HEMATOLOGY METHOD 03/09/2022 10:38 AM EDT [facility] Blood Venous blood specimen / Unknown (Port) Long-term Catheter / Unknown 03/09/2022 9:32 AM EDT 03/09/2022 10:28 AM EDT Narrative [facility] - 03/09/2022 10:38 AM EDT Therapeutic decision making should be based on absolute values, rather than percentages. 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, unspecified site documented in this encounter Additional Health Concerns Assessment Noted Time A fall risk assessment has been complete d for the patient 12/08/2021 1:20 PM EDT documented as of this encounter Care Teams Preschool Head Teacher Relationship Specialty Start Date End Date Michele Wright MD [address] [place] [address] PCP - General 10/11/20 Edgar Szymanski MD 800 [facility] [address] [place] [address] Radiation Oncologist Radiation Therapy 03/14/20 4 Shun Hurst MD [address] [place] [address] Surgeon Neurosurgery 02/24/21 Bailey Ellis MD 800 [facility] [address] [place] [address] Medical Oncologist Medical Oncology 06/13/21 documented as of this encounter
--- OUTSIDE RECORDS SUMMARY | 2024-05-03 13:39 | XMS_ITS | Encounter Summary ---
Author Organization [facility] Address [address] [place], [place] [address] Care Team Providers Care Medical Transcription Radiology Name Role Phone Michele Wright MD Primary Care Provider [phone] Edgar Szymanski MD Unavailable [phone] Shun Hurst MD Unavailable [phone] Divine Carpenter MD Unavailable [phone] Reason for Visit * Reason Comments Med Refill Encounter Details Date Type Department Care Team (Late st Contact Info) Description 12/26/2021 Refill P[facility] H Infusion [address] [place] [address] Letty Prakash PA 800 [facility] [address] [place] [address] Social History Tobacco Use Types Packs/Day Years [...] suspected to have Coronavirus/COVID-19? No / Unsure 12/16/2021 1:44 PM EDT documented as of this encounter Plan of Treatment Upcoming Encounters Date Type Department Care Team (Late st Contact Info) Description 07/17/2024 12:30 PM EST Clinical Support Pav CC Head, Neck & Respiratory 800 [facility], 2nd [place] [address] 07/17/2024 1:30 PM EST Appointment PAV G Radiology [address] [place] [phone] 07/20/2024 2:50 PM EST Office Visit Pav CC Head, Neck & Respiratory [address] [facility], 2nd [place] [address] Divine Carpenter MD [address] [facility] [address] [place] [address] documented as of this encounter Visit Diagnoses Not on filedocumented in this encounter Additional Health Concerns Assessment Noted Time A fall risk assessment has been complete d for the patient 12/08/2021 1:20 PM EDT documented as of this encounter Care Teams Medical Transcription Radiology Relationship Specialty Start Date End Date Michele Wright MD [address] [place] [address] PCP - General 10/11/20 Edgar Szymanski MD 800 [facility] [address] [place] [phone] Radiation Oncologist Radiation Therapy 03/14/20 4 Shun Hurst MD [address] [facility] [address] [place] [phone] Surgeon Neurosurgery 02/24/21 Divine Carpenter MD 800 [facility] Diane [facility]on [facility] [address] [place] [address] Medical Oncologist Medical Oncology 06/13/21 documented as of this encounter
--- OUTSIDE RECORDS SUMMARY | 2024-05-03 13:39 | XMS_ITS | Encounter Summary ---
Author Organization [facility] Address [address] [place], [place] [id number] Care Team Providers Care Electorate Officer Name Role Phone Michele Wright MD Primary Care Provider + [phone] Edgar Szymanski MD Unavailable [phone] Shun Hurst MD Unavailable [phone] Divine Carpenter MD Unavailable [phone] Reason for Visit * Reason Comments Med Refill Encounter Details Date Type Department Care Team (Late st Contact Info) Description 01/19/2022 Refill [facility] Infusion [address] [place] [address] Letty Prakash PA 800 [facility] [address] [place] [address] Social History Tobacco Use Types Packs/Day Years [...] suspected to have Coronavirus/COVID-19? No / Unsure 01/15/2022 1:05 PM EDT documented as of this encounter Plan of Treatment Upcoming Encounters Date Type Department Care Team (Late st Contact Info) Description 07/17/2024 12:30 PM EST Clinical Support Pav CC Head, Neck & Respiratory 800 [facility], [address]nd [place] [address] 07/17/2024 1:30 PM EST Appointment [facility] G Radiology [address] [place] [address] 07/20/2024 2:50 PM EST Office Visit Pav [facility] Head, Neck & Respiratory 800 [facility], [address]nd [place] [address] Divine Carpenter MD [address] [facility] [address] [place] [address] documented as of this encounter Visit Diagnoses Not on filedocumented in this encounter Additional Health Concerns Assessment Noted Time A fall risk assessment has been complete d for the patient 12/08/2021 1:20 PM EDT documented as of this encounter Care Teams Electorate Officer Relationship Specialty Start Date End Date Michele Wright MD [address] [place] [address] PCP - General 10/11/20 Edgar Szymanski MD 800 [facility] [address] [place] [phone] Radiation Oncologist Radiation Therapy 03/14/20 4 Shun Hurst MD [address] [facility] [address] [place] [phone] Surgeon Neurosurgery 02/24/21 Divine Carpenter MD 800 [facility] Diane Rosasson [facility] [address] [place] [address] Medical Oncologist Medical Oncology 06/13/21 documented as of this encounter
--- OUTSIDE RECORDS SUMMARY | 2024-05-03 13:39 | XMS_ITS | Encounter Summary ---
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) Divine Carpenter MD 800 [facility] [address] [place] [address] Phone: tel: fax: Gil Hernandez MD [address] [facility] [address] [place] [address] Phone: tel: fax: Referral ID Status Reason Start Date Expiration Date V isits Requested Visits Authorized [id number] Closed Specialty Services Required 12/09/2021 06/10/2023 1 1 Encounter Details Date Type Department Care Team (Late st Contact Info) Description 02/03/2022 11:20 AM EDT Office Visit [facility] [address] [place] [address] Gil Hernandez MD [address] [facility] [address] [place] [address] Cancer of larynx (CMS/HCC); Dysphagia, pharyngeal; Tracheostomy dependent (CMS/HCC) Social History Tobacco Use Types Packs/Day [...] suspected to have Coronavirus/COVID-19? No / Unsure 02/03/2022 11:33 AM EDT documented as of this encounter Last Filed Vital Signs Vital Sign Reading Time Taken Comments Blood Pressure 137/78 02/03/2022 11:42 AM EDT Pulse 59 02/03/2022 11:42 AM EDT Temperature - - Respiratory Rate - - Oxygen Saturation - - Inhaled Oxygen Concentration - - Weight 90.3 kg (199 lb) 02/03/2022 11:42 AM EDT Height 177.8 cm (5' 10 ) 02/03/2022 11:42 AM EDT Body Mass Index 28.55 02/03/2022 11:42 AM EDT documented in this encounter Miscellaneous Notes * Progress Notes - Gil Hernandez MD - 02/03/2022 11:20 AM EDT I had the pleasure of seeing Anibal Barreto today, who is a 56 y.o. male that returns to the clinic for follow-up of his swallowing. He has metastatic supraglottic squamous cell carcinoma that is currently still being treated with Dr. Carpenter at [facility] with chemotherapy for maintenance. He denies any problems with his TEP and his voice is doing ok. He has undergone three prior esophageal dilations for esophageal stenosis, most recently 07/24/2021. He notes that he has continued to have significant difficulty with swallowing solids greater than the size of pea but does okay with liquids. He denies any new/ worsened leakage around his TEP. He presents in follow-up today and is interested in considering a fourth esophageal dilation. Visit Vitals BP 137/78 Pulse 59 Ht 1.778 m (5' 10 ) Wt 90.3 kg (199 lb) BMI 28.55 kg/m?? Smoking Status Former BSA 2.11 m?? Allergies Allergen Reactions Cetuximab Anaphylaxis SOA, hypotension, after 9 ml of drug Docetaxel Rash, Shortness of breath and Unknown Patient very dyspnic, flushed, severe back pain. Patient very dyspnic, flushed, severe back pain. Patient very dyspnic, flushed, severe back pain. Methadone Rash, Other and Unknown Entire 14 point ROS was negative with the exception of those listed in the HPI General: patient is awake, nontoxic appearing, and in no acute distress. Skin: No overtly ulcerated, cellulitic, or indurated lesions of the head or neck. Head: Normocephalic and atraumatic. Sinuses are nontender to palpation. Ears: The pinnas are well formed. External auditory canals are nonstenotic without cerumen impaction bilaterally. Eyes: Extraocular muscles are intact. The sclera [...] uvula is midline. Neck: The neck is woody. No crepitus, masses, or lymphadenopathy are appreciated. The trachea is inmidline and jessica stoma in good position. Circulatory: regular rate and rhythm, pulses 2+ bilaterally Pulmonary: no wheezing, no stridor A/P I would like to dilate him again to a higher degree in the OR. Will send him in some diflucan to take for the 2 weeks prior to surgery to make sure he is clear of any fungal infection prior to surgery so that there is less irritation and inflammation in there. Consented today for esophageal dilation, possible super dilation in clinic today. documented in this encounter Plan of Treatment Upcoming Encounters Date Type Department Care Team (Late st Contact Info) Description 07/17/2024 12:30 PM EST Clinical Support Pav [facility] Head, Neck & Respiratory [address] [place] [phone] 07/17/2024 1:30 PM EST Appointment P[facility] G Radiology [address] [place] [address] 07/20/2024 2:50 PM EST Office Visit [facility] CC Head, Neck & Respiratory [address] [place] [address] Divine Carpenter MD [address] [place] [address] documented as of this encounter Visit Diagnoses Diagnosis 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, unspecified site Dysphagia, pharyngeal Dysphagia, pharyngeal phase Tracheostomy dependent (CMS/HCC) Tracheostomy status documented in this encounter Additional Health Concerns Assessment Noted Time A fall risk assessment has been complete d for the patient 12/08/2021 1:20 PM EDT documented as of this encounter Care Teams Hardness Inspector Relationship Specialty Start Date End Date Michele Wright MD [address] [place] [address] PCP - General 10/11/20 Edgar Szymanski MD [address] [place] [address] Radiation Oncologist Radiation Therapy 03/14/20 4 Shun Hurst MD [address] [facility] [address] [place] [address] Surgeon Neurosurgery 02/24/21 Divine Carpenter MD 800 [facility] [address] [place] [address] Medical Oncologist Medical Oncology 06/13/21 documented as of this encounter
--- OUTSIDE RECORDS SUMMARY | 2024-05-03 13:39 | XMS_ITS | Encounter Summary ---
Author Organization [facility] Address [address] [place] [address] Care Team Providers Care Attorney Recruiter Name Role Phone Michele Wright MD Primary Care Provider + [phone] Edgar Szymanski MD Unavailable [phone] Shun Hurst MD Unavailable [phone] Divine Carpenter MD Unavailable [phone] Encounter Details Date Type Department Care Team (Late st Contact Info) Description 01/15/2022 1:15 PM EDT Clinical Support Pav CC Head, Neck & Respiratory [address] , [address] [place] [address] Social History Tobacco Use Types Packs/Day Years [...] as of this encounter Miscellaneous Notes * Clinician Note - Kika Duff - 01/15/2022 1:15 PM EDT Patient port accessed, flushes well and has good blood return, port flushed with 20mL of NS and heparin locked. Port de-accessed. Band-aid applied. documented in this encounter Plan of Treatment Upcoming Encounters Date Type Department Care Team (Late st Contact Info) Description 07/17/2024 12:30 PM EST Clinical Support Pav CC Head, Neck & Respiratory [address] [place] [address] 07/17/2024 1:30 PM EST Appointment [facility] G Radiology [address] [place] [address] 07/20/2024 2:50 PM EST Office Visit Pav CC Head, Neck & Respiratory 800 [facility], [address]nd [place] [address] Divine Carpenter MD [address] [place] [address] documented as of this encounter Visit Diagnoses Not on filedocumented in this encounter Additional Health Concerns Assessment Noted Time A fall risk assessment has been complete d for the patient 12/08/2021 1:20 PM EDT documented as of this encounter Care Teams Attorney Recruiter Relationship Specialty Start Date End Date Michele Wright MD [address] [place] [address] PCP - General 10/11/20 Edgar Szymanski MD [address] [place] [address] Radiation Oncologist Radiation Therapy 03/14/20 4 Shun Hurst MD [address] [facility] [address] [place] [address] Surgeon Neurosurgery 02/24/21 Divine Carpenter MD 800 [facility] [address] [address] Medical Oncologist Medical Oncology 06/13/21 documented as of this encounter
--- OUTSIDE RECORDS SUMMARY | 2024-05-03 13:39 | XMS_ITS | Encounter Summary ---
Author Organization [facility] Address [address] [place], [place] [address] Care Team Providers Care Cw Operator Name Role Phone Michele Wright MD Primary Care Provider + [phone] Edgar Szymanski MD Unavailable [phone] Shun Hurst MD Unavailable [phone] Divine Carpenter MD Unavailable [phone] Encounter Details Date Type Department Care Team (Late st Contact Info) Description 12/08/2021 3:00 PM EDT Office Visit [facility] CC Voice [address] [place] [address] Luana Leal S, [facility] [address] [facility] [id number] [place] [id number] Aphonia (Primary Dx) Social History Tobacco Use [...] Notes * Progress Notes - Luana Leal, GERHARD-TIRE ASSEMBLER - 12/08/2021 3:00 PM EDT [facility] Head, Neck and Respiratory Clinic Tracheoesophageal Puncture Assessment/Treatment ?? Service Date: 12/08/2021 Referring Provider: Dr. 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 Barreto completed chemoradiation therapy for a [id number] SCCa of the supraglottis in July of [...] results. His prosthesis was last changed on 09/17/2021. ?? Barriers to Progress: Persistent disease, persistent dysphagia ?? Associated Supply Charge: Provox [employer]ett, 10 mm, 17 Fr ?? Medical History: Medical History Past Medical History: Diagnosis Date ??? Essential (primary) hypertension ? HTN (hypertension) ??? Heartburn ? Heart burn ??? 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 Neoplasm related pain 10/14/2020 ??? Other diseases of pharynx ? Hypopharyngeal mass ??? Personal history of antineoplastic chemotherapy ? History of chemotherapy ??? Personal history of irradiation ? History of radiation therapy ??? Personal history of other diseases of the respiratory system ? History of hemoptysis ??? Personal history of other endocrine, nutritional and metabolic disease ? History of high cholesterol ??? Personal history of other specified conditions ? History of palpitations ??? Pure hypercholesterolemia, unspecified ? Elevated cholesterol ??? Type 2 diabetes mellitus without complications (CMS/HCC) ? DM (diabetes mellitus) ??? Unspecified disorder of ear, unspecified ear ? Ear problems ??? Unspecified disorder of nose and nasal sinuses ? Sinus disorder ??? Unspecified osteoarthritis, unspecified site ? Arthritis ? Placement History: Date of last change: 09/17/2021 Previous Prosthesis Type/Size: 17 Fr, 10 mm, Provox Hackett Average Time Between Changes: 2-3 months Use of topical anesthetic: 5ml. 2% viscous lidocaine was provided orally and an additional amount was topically applied to the area surrounding the puncture for patient comfort and to reduce the cough response. Additional Information: The stoma was functionally patent, clean and free from discrete lesions. However, granulation tissue was noted covering the right lateral border of the TEP. I was able to freethe tracheal flange and visualize it in its entirety. ?? Patient complaint: Patient reports central leakage for the past two weeks as well as effortful phonation. ?? Assessment: Pain: Patient has persisting shoulder and chest pain Swallowing: Patient reports increased difficulty with swallowing ?? Procedure: Prosthesis Type/Size: 10 mm, 17 Fr Lot number: [id number] Dilation: 18 Fr [facility] dilator Insertion Method: Gel capsule ? Evaluation: The TEP rotates freely within the tract. No central leakage observed. No peripheral leakage observed. Neophonation is characteristically fluent and functional. ?? Plan: 1. Discard the old cleaning brush and use the new brush provided. 2. F/u with Dr. Correia at prescribed intervals. 3. F/u with [facility] as needed for TEP maintenance. documented in this encounter Plan of Treatment Upcoming Encounters Date Type Department Care Team (Late st Contact Info) Description 07/17/2024 12:30 PM EST Clinical Support Pav CC Head, Neck & Respiratory 800 [facility], [address]nd [place] [address] 07/17/2024 1:30 PM EST Appointment P[facility] G Radiology [address] [place] [address] 07/20/2024 2:50 PM EST Office Visit Pav CC Head, Neck & Respiratory 800 [facility], [address]nd [place] [address] Divine Carpenter MD 800 [facility] [address] [place] [address] documented as of this encounter Visit Diagnoses Diagnosis Aphonia- Primary documented in this encounter Additional Health Concerns Assessment Noted Time A fall risk assessment has been complete d for the patient 12/08/2021 1:20 PM EDT documented as of this encounter Care Teams Cw Operator Relationship Specialty Start Date End Date Michele Wright MD [address] [place], [place] [phone] PCP - General 10/11/20 Edgar Szymanski MD 800 [facility] [address] [place] [address] Radiation Oncologist Radiation Therapy 03/14/20 4 Shun Hurst MD [address] [facility] [address] [place] [address] Surgeon Neurosurgery 02/24/21 Divine Carpenter MD 800 [facility] Diane Zuniga [facility] [address] [place] [address] Medical Oncologist Medical Oncology 06/13/21 documented as of this encounter
--- OUTSIDE RECORDS SUMMARY | 2024-05-03 13:39 | XMS_ITS | Encounter Summary ---
Author Organization Healthcare Address [address] [place] [address] Care Team Providers Care Criminal Research Specialist Name Role Phone Michele Wright MD Primary Care Provider + [phone] Edgar Szymanski MD Unavailable [phone] Shun Hurst MD Unavailable [phone] Divine Carpenter MD Unavailable [phone] Reason for Visit * Reason Comments Labs Only Peripheral Stick Encounter Details Date Type Department Care Team (Latest Contact Info) Description 12/04/2021 3:00 PM EDT Clinical Support [facility] [address], [address]nd [place] [phone] Cancer of larynx (CMS/HCC); Primary hypertension Social History Tobacco Use Types [...] suspected to have Coronavirus/COVID-19? No / Unsure 12/04/2021 2:21 PM EDT documented as of this encounter Miscellaneous Notes * Clinician Note - Terra Michelle, RN - 12/04/2021 3:00 PM EDT Patient came for PORT access and labs and then scan. Port had not been accessed for 6 months. PORT flushes fine. Unable to draw blood. Labs done periph. Silas RN documented in this encounter Plan of Treatment Upcoming Encounters Date Type Department Care Team (Late st Contact Info) Description 07/17/2024 12:30 PM EST Clinical Support [facility] [address], 2nd [place] [address] 07/17/2024 1:30 PM EST Appointment P[facility] G Radiology [address] [place] [address] 07/20/2024 2:50 PM EST Office Visit [facility] [address], [address] [place] [address] Divine Carpenter MD 800 [facility] [address] [place] [address] documented as of this encounter Procedures Procedure Name Priority Date/Time Associated Diagnosis Comments CBC WITH AUTO DIFFERENTIAL Routine 12/04/2021 3:22 PM EDT Cancer of larynx (CMS/HCC) Primary hypertension TSH Routine 12/04/2021 3:22 PM EDT Cancer of larynx (CMS/HCC) Primary hypertension COMPREHENSIVE METABOLIC PANEL, PLASMA Routine 12/04/2021 3:22 PM EDT Cancer of larynx (CMS/HCC) Primary hypertension documented in this encounter Results * (ABNORMAL) CBC and Differential (12/04/2021 3:22 PM EDT) WBC Count 5.25 3.70 - 10.30 10*3/uL LAB HEMATOLOGY METHOD 12/04/2021 3:42 PM EDT [facility] RBC Count 4.53(L) 4.60 - 6.10 10*6/uL LAB HEMATOLOGY METHOD 12/04/2021 3:42 PM EDT [facility] HGB 12.5(L) 13.7 - 17.5 g/dL LAB HEMATOLOGY METHOD 12/04/2021 3:42 PM EDT [facility] HCT 38.8(L) 40.0 - 51.0 % LAB HEMATOLOGY METHOD 12/04/2021 3:42 PM EDT [facility] Platelet Count 144(L) 155 - 369 10*3/uL LAB HEMATOLOGY METHOD 12/04/2021 3:42 PM EDT [facility] MCV 86 79 - 98 fL LAB HEMATOLOGY METHOD 12/04/2021 3:42 PM EDT [facility] MCH 27.6 26.0 - 32.0 pg LAB HEMATOLOGY METHOD 12/04/2021 3:42 PM EDT [facility] MCHC 32.2 30.7 - 35.5 g/dL LAB HEMATOLOGY METHOD 12/04/2021 3:42 PM EDT [facility] RDW 13.6 11.5 - 14.5 % LAB HEMATOLOGY METHOD 12/04/2021 3:42 PM EDT [facility] MPV 11.0 8.8 - 12.5 fL LAB HEMATOLOGY METHOD 12/04/2021 3:42 PM EDT [facility] nRBC 0.0 <=0.0 per 100 WBCs LAB HEMATOLOGY METHOD 12/04/2021 3:42 PM EDT [facility] Differential Type Automated LAB HEMATOLOGY METHOD 12/04/2021 3:42 PM EDT [facility] Neutrophils % 74.0 % LAB HEMATOLOGY METHOD 12/04/2021 3:42 PM EDT [facility] Lymphocytes % 13.0 % LAB HEMATOLOGY METHOD 12/04/2021 3:42 PM EDT [facility] Monocytes % 10.0 % LAB HEMATOLOGY METHOD 12/04/2021 3:42 PM EDT [facility] Eosinophils % 3.0 % LAB HEMATOLOGY METHOD 12/04/2021 3:42 PM EDT [facility] Basophils % 0.0 % LAB HEMATOLOGY METHOD 12/04/2021 3:42 PM EDT [facility] Immature Granulocytes % 0.0 % LAB HEMATOLOGY METHOD 12/04/2021 3:42 PM EDT [facility] Neutrophils Absolute 3.92 1.60 - 6.10 10*3/uL LAB HEMATOLOGY METHOD 12/04/2021 3:42 PM EDT [facility] Lymphocytes Absolute 0.66(L) 1.20 - 3.90 10*3/uL LAB HEMATOLOGY METHOD 12/04/2021 3:42 PM EDT [facility] Monocytes Absolute 0.50 0.30 - 0.90 10*3/uL LAB HEMATOLOGY METHOD 12/04/2021 3:42 PM EDT [facility] Eosinophils Absolute 0.13 0.00 - 0.50 10*3/uL LAB HEMATOLOGY METHOD 12/04/2021 3:42 PM EDT [facility] Basophils Absolute 0.02 0.00 - 0.10 10*3/uL LAB HEMATOLOGY METHOD 12/04/2021 3:42 PM EDT [facility] Immature Granulocytes Absolute 0.02 0.00 - 0.06 10*3/uL LAB HEMATOLOGY METHOD 12/04/2021 3:42 PM EDT [facility] Blood Venous blood specimen / Unknown Venipuncture / Unknown 12/04/2021 3:22 PM EDT 12/04/2021 3:35 PM EDT [facility] - 12/04/2021 3:42 PM EDT Therapeutic decision making should be based on absolute values, rather than percentages. Divine Carpenter MD LAB BLOOD ORDERABLES Final R esult [facility] [address] [place] [address] * (ABNORMAL) Comprehensive Metabolic Panel, Plasma (12/04/2021 3:22 PM EDT) [facility] Glucose, Plasma 103(H) 74 - 99 mg/dL 12/04/2021 4:18 PM EDT [facility] BUN, Plasma 16 7 - 21 mg/dL 12/04/2021 4:18 PM EDT [facility] Creatinine, Plasma 0.77(L) 0.80 - 1.30 mg/dL 12/04/2021 4:18 PM EDT [facility] BUN/Creatinine Ratio 21 12/04/2021 4:18 PM EDT [facility] Sodium, Plasma 138 136 - 145 mmol/L 12/04/2021 4:18 PM EDT [facility] Potassium, Plasma 4.3 3.7 - 4.8 mmol/L 12/04/2021 4:18 PM EDT [facility] Comment:Reference range for Serum potassium is 0.2 to 0.5 mmol/L higher than Plasma range. Chloride, Plasma 100 97 - 107 mmol/L 12/04/2021 4:18 PM EDT [facility] CO2, Plasma 30(H) 22 - 29 mmol/L 12/04/2021 4:18 PM EDT [facility] Anion Gap 8 6 - 16 mmol/L 12/04/2021 4:18 PM EDT [facility] Total Calcium, Plasma 9.1 8.9 - 10.2 mg/dL 12/04/2021 4:18 PM EDT [facility] Total Protein 7.1 6.3 - 7.9 g/dL 12/04/2021 4:18 PM EDT [facility] Albumin, Plasma 4.1 3.5 - 5.2 g/dL 12/04/2021 4:18 PM EDT [facility] AST, Plasma 16 12 - 40 U/L 12/04/2021 4:18 PM EDT [facility] ALT, Plasma 8(L) 11 - 41 U/L 12/04/2021 4:18 PM EDT [facility] Alkaline Phosphatase, Plasma 76 40 - 115 U/L 12/04/2021 4:18 PM EDT [facility] Total Bilirubin, Plasma 0.5 0.2 - 1.1 mg/dL 12/04/2021 4:18 PM EDT [facility] eGFR >60 >60 mL/min/1.7 3m*2 12/04/2021 4:18 PM EDT [facility] Comment:eGFR = estimated GFR ; eGFR units = mL/min/1.73 sq meters Chronic Kidney Disease is considered if eGFR <60 mL/min/1.73 sq meters Kidney failure is considered if eGFR is <15 mL/min/1.73 sq meters. eGFR assumes steady state plasma creatinine concentration; not applicable if renal function is rapidly changing or patient is on dialysis. eGFR, if AFR/AM >60 >60 mL/min/1.7 3m*2 12/04/2021 4:18 PM EDT [facility] Comment:eGFR = estimated GFR ; eGFR units = mL/min/1.73 sq meters Chronic Kidney Disease is considered if eGFR <60 mL/min/1.73 sq meters Kidney failure is considered if eGFR is <15 mL/min/1.73 sq meters. eGFR assumes steady state plasma creatinine concentration; not applicable if renal function is rapidly changing or patient is on dialysis. Blood Venous blood specimen / Unknown Venipuncture / Unknown 12/04/2021 3:22 PM EDT 12/04/2021 3:40 PM EDT Divine Carpenter MD LAB BLOOD ORDERABLES Final R esult [facility] [address] [place] [address] * Thyroid Stimulating Hormone, Plasma (TSH) (12/04/2021 3:22 PM EDT) Thyroid Stimulating Hormone, Plasma 0.47 0.40 - 4.20 uIU/mL 12/04/2021 4:18 PM EDT [facility] Blood Venous blood specimen / Unknown Venipuncture / Unknown 12/04/2021 3:22 PM EDT 12/04/2021 3:40 PM EDT Divine Carpenter MD LAB BLOOD ORDERABLES Final R esult [facility] [address] [place] [address] documented in this encounter Visit Diagnoses Diagnosis 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, unspecified site Primary hypertension Unspecified essential hypertension documented in this encounter Additional Health Concerns Assessment Noted Time A fall risk assessment has been complete d for the patient 08/18/2021 9:25 AM EDT documented as of this encounter Care Teams Criminal Research Specialist Relationship Specialty Start Date End Date Michele Wright MD [address] [place] [address] PCP - General 10/11/20 Edgar Szymanski MD [address] [place] [address] Radiation Oncologist Radiation Therapy 03/14/20 4 Shun Hurst MD [address] [facility] [address] [place] [address] Surgeon Neurosurgery 02/24/21 Divine Carpenter MD [address] Diane Zuniga [facility] [address] [place] [address] Medical Oncologist Medical Oncology 06/13/21 documented as of this encounter
--- OUTSIDE RECORDS SUMMARY | 2024-05-03 13:39 | XMS_ITS | Encounter Summary ---
Author Organization [facility] Address [address] [place], [place] [address] Care Team Providers Care Echo Vasc Tech Name Role Phone Michele Wright MD Primary Care Provider + [phone] Edgar Szymanski MD Unavailable [phone] Shun Hurst MD Unavailable [phone] Divine Carpenter MD Unavailable [phone] Reason for Visit * Reason Comments Med Refill Encounter Details Date Type Department Care Team (Late st Contact Info) Description 11/26/2021 Refill [facility] H Infusion [address] [place] [address] Letty Prakash PA 800 [facility] [address] [place] [address] Social History Tobacco Use Types Packs/Day Years [...] CC Head, Neck & Respiratory 800 [facility], [address]nd [place] [address] 07/17/2024 1:30 PM EST Appointment [facility] G Radiology [address] [place] [phone] 07/20/2024 2:50 PM EST Office Visit Pav [facility] Respiratory 800 [facility], [address]nd [place] [address] Divine Carpenter MD 800 [facility] [address] Zun[address] [facility] [address] [place] [address] documented as of this encounter Visit Diagnoses Not on filedocumented in this encounter Additional Health Concerns Assessment Noted Time A fall risk assessment has been complete d for the patient 08/18/2021 9:25 AM EDT documented as of this encounter Care Teams Echo Vasc Tech Relationship Specialty Start Date End Date Michele Wright MD [address] [place] [address] PCP - General 10/11/20 Edgar Szymanski MD [address] [facility] [address] [place] [phone] Radiation Oncologist Radiation Therapy 03/14/20 4 Shun Hurst MD [address] [facility] [address] [place] [address] Surgeon Neurosurgery 02/24/21 Divine Carpenter MD 800 [facility] [address] [facility] 134 [place] [address] Medical Oncologist Medical Oncology 06/13/21 documented as of this encounter
--- OUTSIDE RECORDS SUMMARY | 2024-05-03 13:39 | XMS_ITS | Encounter Summary ---
Author Organization Healthcare Address [address] [place] [address] Care Team Providers Care Copping Machine Operator Name Role Phone Michele Wright MD Primary Care Provider + [phone] Edgar Szymanski MD Unavailable [phone] Shun Hurst MD Unavailable [phone] Divine Carpenter MD Unavailable [phone] Encounter Details Date Type Department Care Team (Latest Contact Info) Description 12/16/2021 Travel Social History Tobacco Use Types Packs/Day [...] 800 [facility], [address]nd [place] [address] 07/17/2024 1:30 PM EST Appointment P[facility] G Radiology [address] [place] [address] 07/20/2024 2:50 PM EST Office Visit Pav [facility] Res[facility] 800 [facility], [address]nd [place] [address] Divine Carpenter MD 800 [facility] Diane Zuniga [facility] [address] [place] [address] documented as of this encounter Visit Diagnoses Not on filedocumented in this encounter Additional Health Concerns Assessment Noted Time A fall risk assessment has been complete d for the patient 12/08/2021 1:20 PM EDT documented as of this encounter Care Teams Copping Machine Operator Relationship Specialty Start Date End Date Michele Wright MD [address] [place] [address] PCP - General 10/11/20 Edgar Szymanski MD [address] [facility] [address] [place] [address] Radiation Oncologist Radiation Therapy 03/14/20 4 Shun Hurst MD [address] [facility] [address] [place] [address] Surgeon Neurosurgery 02/24/21 Divine Carpenter MD 800 [facility] Diane Zuniga [facility] [place] [address] Medical Oncologist Medical Oncology 06/13/21 documented as of this encounter
--- OUTSIDE RECORDS SUMMARY | 2024-05-03 13:39 | XMS_ITS | Encounter Summary ---
Author Organization [facility] Address [address] [place] [address] Care Team Providers Care Motor Block Mechanic Name Role Phone Michele Wright MD Primary Care Provider + [phone] Edgar Szymanski MD Unavailable [phone] Shun Hurst MD Unavailable [phone] Divine Carpenter MD Unavailable [phone] Encounter Details Date Type Department Care Team (Late st Contact Info) Description 12/16/2021 1:45 PM EDT Clinical Support [facility] [address]nd [place] [phone] Ambika Ambriz, [facility] Cancer of larynx (CMS/HCC) (Primary Dx) Social [...] encounter Miscellaneous Notes * Clinician Note - Ambika Ambriz RN - 12/16/2021 1:45 PM EDT Port accessed without issue. Flushes well but no blood return. Order for Alteplase placed. Alteplase instilled and dwelled for Min. Aspirated with good blood return. Flushed with saline and heplocked. Patient voiced no complaints. Appointment for 4w flush given. documented in this encounter Plan of Treatment Upcoming Encounters Date Type Department Care Team (Late st Contact Info) Description 07/17/2024 12:30 PM EST Clinical Support [facility] 800 [facility], [address]nd [place] [address] 07/17/2024 1:30 PM EST Appointment P[facility] G Radiology [address] [place] [address] 07/20/2024 2:50 PM EST Office Visit Pav [facility] Res[facility] 800 [facility], [address]nd [place] [address] Divine Carpenter MD 800 [facility] [place] [address] documented as of this encounter Visit Diagnoses Diagnosis 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, unspecified site documented in this encounter Administered Medications Inactive Administered Medications - up to 3 most recent administrations Medication Order MAR Action Action Date Dose Rate Site alteplase (Cathflo Activase) injection 2 mg 2 mg, Intracatheter, Once, 1 dose, On Wed12/16/21 at 1445, Routine Given 12/16/2021 2:41 PM EDT 2 mg Left Chest documented in this encounter Additional Health Concerns Assessment Noted Time A fall risk assessment has been complete d for the patient 12/08/2021 1:20 PM EDT documented as of this encounter Care Teams Motor Block Mechanic Relationship Specialty Start Date End Date Michele Wright MD [address] [place] [address] PCP - General 10/11/20 Edgar Szymanski MD [address] [facility] [address] [place] [address] Radiation Oncologist Radiation Therapy 03/14/20 4 Shun Hurst MD [address] [place] [address] Surgeon Neurosurgery 02/24/21 Divine Carpenter MD [address] Z[address] [address] [place] [address] Medical Oncologist Medical Oncology 06/13/21 documented as of this encounter
--- OUTSIDE RECORDS SUMMARY | 2024-05-03 13:39 | XMS_ITS | Encounter Summary ---
Author Organization [facility] Address [address] [place], [place] [address] Care Team Providers Care Tour Agent Name Role Phone Michele Wright MD Primary Care Provider + [phone] Edgar Szymanski MD Unavailable [phone] Shun Hurst MD Unavailable [phone] Divine Carpenter MD Unavailable [phone] Reason for Visit * Reason Comments Med Refill Encounter Details Date Type Department Care Team (Late st Contact Info) Description 02/21/2022 Refill [facility] H Infusion 800 [place] [address] Letty Prakash PA 800 [facility] [address] [place] [address] Social History Tobacco Use Types Packs/Day Years [...] suspected to have Coronavirus/COVID-19? No / Unsure 02/18/2022 11:15 AM EDT documented as of this encounter Plan of Treatment Upcoming Encounters Date Type Department Care Team (Late st Contact Info) Description 07/17/2024 12:30 PM EST Clinical Support Pav [facility] Head[facility] Neck [facility] Respiratory 800 [facility], 2nd [place] [address] 07/17/2024 1:30 PM EST Appointment P[facility] G Radiology [address] [place] [address] 07/20/2024 2:50 PM EST Office Visit Pav CC Head[facility] Neck & Respiratory 800 [facility], [address]nd [place] [address] Divine Carpenter MD [address] [facility] [address] [place] [address] documented as of this encounter Visit Diagnoses Not on filedocumented in this encounter Additional Health Concerns Assessment Noted Time A fall risk assessment has been complete d for the patient 12/08/2021 1:20 PM EDT documented as of this encounter Care Teams Tour Agent Relationship Specialty Start Date End Date Michele Wright MD [address] [place] [address] PCP - General 10/11/20 Edgar Szymasnki MD 800 [facility] [address] [place] [address] Radiation Oncologist Radiation Therapy 03/14/20 4 Shun Hurst MD [address] [facility] [address] [place] [address] Surgeon Neurosurgery 02/24/21 Divine Carpenter MD 800 [facility] Diane Rosasson [facility] [address] [place] [address] Medical Oncologist Medical Oncology 06/13/21 documented as of this encounter
--- OUTSIDE RECORDS SUMMARY | 2024-05-03 13:39 | XMS_ITS | Encounter Summary ---
Author Organization Healthcare Address [address] [place] [address] Care Team Providers Care Him Clerk Name Role Phone Michele Wright MD Primary Care Provider + [phone] Edgar Szymanski MD Unavailable [phone] Shun Hurst MD Unavailable [phone] Divine Carpenter MD Unavailable [phone] Encounter Details Date Type Department Care Team (Latest Contact Info) Description 01/15/2022 Travel Social History Tobacco Use Types Packs/Day [...] CC Head, Neck & Respiratory [address] [facility], 2nd [place] [address] 07/17/2024 1:30 PM EST Appointment PAV G Radiology [address] [place] [address] 07/20/2024 2:50 PM EST Office Visit Pav CC Head, Neck & Respiratory [address] [facility], 2nd [place] [phone] Divine Carpenter MD [address] [facility] Diane Zuniga [facility] 134 [place] [address] documented as of this encounter Visit Diagnoses Not on filedocumented in this encounter Additional Health Concerns Assessment Noted Time A fall risk assessment has been complete d for the patient 12/08/2021 1:20 PM EDT documented as of this encounter Care Teams Him Clerk Relationship Specialty Start Date End Date Michele Wright MD [address] [place] [address] PCP - General 10/11/20 Edgar Szymanski MD 800 [facility] [address] [place] [address] Radiation Oncologist Radiation Therapy 03/14/20 4 Shun Hurst MD [address] [facility] [address] [place] [address] Surgeon Neurosurgery 02/24/21 Divine Carpenter MD [address] [facility] Diane Zuniga [facility] [address] [place] [address] Medical Oncologist Medical Oncology 06/13/21 documented as of this encounter
--- OUTSIDE RECORDS SUMMARY | 2024-05-03 13:39 | XMS_ITS | Encounter Summary ---
Author Organization [facility] Address [address] [place] [address] Care Team Providers Care Clay Grinder Name Role Phone Michele Wright MD Primary Care Provider + [phone] Edgar Szymanski MD Unavailable [phone] Shun Hurst MD Unavailable [phone] Divine Carpenter MD Unavailable [phone] Encounter Details Date Type Department Care Team (Late st Contact Info) Description 12/08/2021 Orders Only Pav CC Head[facility] Neck & Respiratory 800 [facility], [address]nd [place] [address] Ambika Ambriz RN [facility] Dysphagia, pharyngeal (Primary Dx); Tracheostomy dependent (CMS/HCC) Social History Tobacco Use [...] Pav CC Head[facility] Neck & Respiratory 800 [facility], [address]nd [place] [address] 07/17/2024 1:30 PM EST Appointment P[facility] G Radiology [address] [place] [address] 07/20/2024 2:50 PM EST Office Visit Pav CC Head[facility] Neck & Respiratory [address] [facility], [address]nd [place] [address] Divine Carpenter MD 800 [facility] [address] [place] [address] documented as of this encounter Visit Diagnoses Diagnosis Dysphagia, pharyngeal- Primary Dysphagia, pharyngeal phase Tracheostomy dependent (CMS/HCC) Tracheostomy status documented in this encounter Additional Health Concerns Assessment Noted Time A fall risk assessment has been complete d for the patient 12/08/2021 1:20 PM EDT documented as of this encounter Care Teams Clay Grinder Relationship Specialty Start Date End Date Michele Wright MD [address] [place] [address] PCP - General 10/11/20 Edgar Szymanski MD 800 [facility] [address] [place] [address] Radiation Oncologist Radiation Therapy 03/14/20 4 Shun Hurst MD [address] [facility] [address] [place] [address] Surgeon Neurosurgery 02/24/21 Divine Carpenter MD 800 [facility] [address] [place] [address] Medical Oncologist Medical Oncology 06/13/21 documented as of this encounter
--- OUTSIDE RECORDS SUMMARY | 2024-05-03 13:39 | XMS_ITS | Encounter Summary ---
Author Organization Healthcare Address [address] [place] [address] Care Team Providers Care Human Resources Project Manager Name Role Phone Michele Wright MD Primary Care Provider + [phone] Edgar Szymanski MD Unavailable [phone] Shun Hurst MD Unavailable [phone] Divine Carpenter MD Unavailable [phone] Encounter Details Date Type Department Care Team (Latest Contact Info) Description 02/03/2022 Travel Social History Tobacco Use Types Packs/Day [...] Pav CC Head, Neck & Respiratory 800 [facility], [address]nd [place] [address] 07/17/2024 1:30 PM EST Appointment PAV G Radiology [address] [place] [address] 07/20/2024 2:50 PM EST Office Visit Pav CC Head, Neck & Respiratory 800 [facility], [address]nd [place] [address] Divine Carpenter MD 800 [facility] Diane Zuniga [facility] [address] [place] [address] documented as of this encounter Visit Diagnoses Not on filedocumented in this encounter Additional Health Concerns Assessment Noted Time A fall risk assessment has been complete d for the patient 12/08/2021 1:20 PM EDT documented as of this encounter Care Teams Human Resources Project Manager Relationship Specialty Start Date End Date Michele Wright MD [address] [place] [address] PCP - General 10/11/20 Edgar Szymanski MD 800 [facility] [address] [place] [phone] Radiation Oncologist Radiation Therapy 03/14/20 4 Shun Hurst MD [address] [facility] [address] [place] [address] Surgeon Neurosurgery 02/24/21 Divine Carpenter MD 800 [facility] Diane Zuniga [facility] [place] [address] Medical Oncologist Medical Oncology 06/13/21 documented as of this encounter
--- OUTSIDE RECORDS SUMMARY | 2024-05-03 13:39 | XMS_ITS | Encounter Summary ---
Author Organization Healthcare Address [address] [place] [address] Care Team Providers Care Manager Chinese Name Role Phone Michele Wright MD Primary Care Provider + [phone] Edgar Szymanski MD Unavailable [phone] Shun Hurst MD Unavailable [phone] Divine Carpenter MD Unavailable [phone] Encounter Details Date Type Department Care Team (Latest Contact Info) Description 12/08/2021 Travel Social History Tobacco Use Types Packs/Day [...] & Respiratory 800 [facility], [address]nd [place] [address] 07/17/2024 1:30 PM EST Appointment [facility] Radiology [address] [place] [address] 07/20/2024 2:50 PM EST Office Visit Pav CC Head, Neck & Respiratory 800 [facility], [address]nd [place] [address] Divine Carpenter MD [address] [facility] Diane Zuniga [facility] [address] [place] [address] documented as of this encounter Visit Diagnoses Not on filedocumented in this encounter Additional Health Concerns Assessment Noted Time A fall risk assessment has been complete d for the patient 12/08/2021 1:20 PM EDT documented as of this encounter Care Teams Manager Chinese Relationship Specialty Start Date End Date Michele Wright MD [address] [place] [address] PCP - General 10/11/20 Edgar Szymanski MD 800 [facility] [address] [place] [address] Radiation Oncologist Radiation Therapy 03/14/20 4 Shun Hurst MD [address] [facility] [address] [place] [address] Surgeon Neurosurgery 02/24/21 Divine Carpenter MD [address] [facility] Diane Zuniga [facility] [address] [place] [address] Medical Oncologist Medical Oncology 06/13/21 documented as of this encounter
--- OUTSIDE RECORDS SUMMARY | 2024-05-03 13:39 | XMS_ITS | Encounter Summary ---
Author Organization Healthcare Address [address] [place] [id number] Care Team Providers Care Squirrel Man Name Role Phone Michele Wright MD Primary Care Provider + [phone] Edgar Szymanski MD Unavailable [phone] Shun Hurst MD Unavailable [phone] Divine Carpenter MD Unavailable [phone] Reason for Visit * Auth/Cert (Routine) Specialty Diagnoses / Procedures Referred By Contac t Referred To Contact Diagnoses Dysphagia Dysphagia [R13.10] Procedures SC LARYNGOSCOPY,DIRECT,SCOPE,IN J CORDS SC ESOPHAGOSCOPY FLEXIBLE TRANSORAL DIAGNOSTIC SC ESOPHAGOSCOPY FLEXIBLE TRANSORAL WITH BIOPSY SC ESOPHAGOSCOPY FLEX BALLOON DILAT <30 MM DIAM SC ESOPHAGOSCOPY DILATE ESOPHAGUS BALLOON 30 MM LARYNGOSCOPY,FLEXIBLE ESOPHAGOSCOPY,WITH LESION DESTRUCTION USING CO2 LASER / ESOPHAGEAL BALLOON DILATION - POSS SUPER DILATION / VOCAL FOLD INJECTION OF STEROIDS Gil Hernandez MD [address] [facility] [address] [place] [address] Phone: tel: fax: [facility] [address] [place] [address] Phone: tel: Referral ID Status Reason Start Date Expiration Date Visits Re quested Visits Authorized [id number] 1 1 Encounter Details Date Type Department Care Team (Late st Contact Info) Description 02/19/2022 9:52 AM EDT Anesthesia Event [facility] [address] [place] [address] Amy Murillo MD [address] [place] [address] Anesthesia Record Procedure Summary Procedure Name Responsible Anesthesiologist Anesthesia Start Time Anesthesia Stop Time LARYNGOSCOPY,FLEXIBLE ESOPHAGOSCOPY,WITH LESION DESTRUCTION USING CO2 LASER / ESOPHAGEAL BALLOON DILATION - POSS SUPER DILATION / VOCAL FOLD INJECTION OF STEROIDS Amy Murillo MD 02/19/22 0952 02/19/22 1041 Events Date Time Event Comment 02/19/2022 0851 0952 An Start 0955 An Start Data 0955 In Room 1000 An Induction The patient was reevaluated immediately before moderate or deep sedation use and before anesthesia induction. 1001 An Intubation 1003 Anesthesia Ready 1006 Proc Start 1032 Proc Fin 1033 An Extubation 1034 an stop data 1035 Out of Room 1038 Handoff to Receiving I compl eted my handoff to the receiving clinician during which we: 1. Identified the patient 2. Identified the responsible provider 3. Reviewed the pertinent medical history 4. Discussed the surgical course 5. Reviewed intra-op anesthesia management and issues during anesthesia 6. Set expectations for post-procedure period 7. Allowed opportunity for questions and acknowledgement of understanding. 1041 An Stop Meds Name Total fentaNYL (Sublimaze) injection 50 mcg/mL 50 mcg propofol (Diprivan) injection 10 mg/mL 1 70 mg rocuronium (ZeMuron) injection 10 mg/mL 20 mg dexamethasone (Decadron) injection 4 mg/ mL 8 mg ePHEDrine injection prefilled syringe 5 mg/mL 20 mg phenylephrine (Scott-Synephrine) prefilled syringe 1 mg/10 mL 200 mcg ondansetron (Zofran) injection 2 mg/mL 4 mg sugammadex (Bridion) injection 100 mg/mL 200 mg ampicillin-sulbactam (Unasyn) vial 3 g 3 g glycopyrrolate (Robinul) injection 0.2 m g/mL 0.2 mg lactated Ringer's infusion 800 mL * Agents Name O2 Air Sevoflurane Inspired Sevoflurane N2O Inspired N2O * Blood No blood administrations on file. Lines, Drains, and Airways Type Details Placement Removal Single Lumen Implantable Port 03/06/21; 1229; Yes; 03/06/21; Other (Comment); Yes; Yes; Left; Chest; Kwabena Waits 03/06/21 1229 by Radha Norwood RN Wound 07/24/21; Throat 07/24/21 0000 b Oma Hathaway RN Wound 02/19/22; 1014; Yes; Other; Throat (flexible esophagoscopy) 02/19/22 1014 by Guillermina Sanchez RN Peripheral IV Placement Date: 02/19/22; Placement Time: 0900; Catheter Size: 20 G; Orientation: Posterior, Right; Location: Hand; Site Prep: Chlorhexidine ; Local Anesth: Injectable; Technique: Anatomical landmarks; Inserted by: amy bustamante; Insertion Attempts: 1; Patient Tolerance: Tolerated well; Removal Date: 02/19/22; Removal Time: 1115; Removal Reason: Discharge 02/19/22 0900 by Amy Bustamante RN 02/19/22 1115 by Odette Mcgrath RN ETT Placement Date: 02/19/22; Placement Time: 1001 (created via procedure documentation); Technique: Blind (place 5.0 in trach stoma); Type: ETT - single; Single Lumen Tube Size: 5 mm; Cuffed: Yes; Laryngoscope: La; Blade Size: 3; Location: Oral; Insertion Attempts: 1; Placement Verification: Auscultation, Capnometry; Placed by: DIANE; Removal Date: 02/19/22; Removal Time: 1033 02/19/22 1001 by Shaun Tapia CRNA, DNP 02/19/22 1033 by Shaun Tapia CRNA, PASQUALE documented in this encounter Social History Tobacco [...] Miscellaneous Notes * Anesthesia Postprocedure Evaluation - Shaun Tapia CRNA, DNP - 02/19/2022 10:43 AM EDT Patient: Anibal Barreto Anesthesia Type: general Vitals Value Taken Time BP 170/80 02/19/22 1040 Temp 36.3 02/19/22 1043 Pulse 68 02/19/22 1041 Resp 22 02/19/22 1041 SpO2 100 % 02/19/22 1041 Vitals shown include unvalidated device data. Anesthesia Post Evaluation Patient location during evaluation: PACU Level of consciousness: baseline Pain management: adequate (pain score 0-3) Airway patency: natural airway Cardiovascular status: acceptable Respiratory status: acceptable Hydration status: acceptable No notable events documented. * Anesthesia Procedure Notes - Shaun Tapia CRNA, DNP - 02/19/2022 10:08 AM EDTAssociated Order(s): Airway Airway Date/Time: 02/19/2022 10:01 AM Urgency: elective Airway not difficult General Information and Staff Patient location during procedure: OR DECK SPECIALIST: Shaun Tapia CRNA, DNP Performed: DIANE Indications and Patient Condition Indications for airway management: anesthesia Spontaneous Ventilation: absent Preoxygenated: yes Patient position: sniffing Final Airway Details Final airway type: endotracheal airway Successful airway: ETT Cuffed: yes Successful intubation technique: blind (place 5.0 in trach stoma) Facilitating devices/methods: cricoid pressure and intubating stylet Endotracheal tube insertion site: oral Blade: La Blade size: #3 ETT size (mm): 5.0 Placement verified by: chest auscultation and capnometry Measured from: stoma ETT to stoma (cm): 10 Number of attempts at approach: 1 * Anesthesia Preprocedure Evaluation - Amy Murillo MD - 02/19/2022 8:50 AM EDT Patient: Anibal Barreto Procedure Information Date/Time: 02/19/22944 Procedure: LARYNGOSCOPY,FLEXIBLE ESOPHAGOSCOPY,WITH LESION DESTRUCTION USING CO2 LASER / ESOPHAGEALBALLOON DILATION - POSS SUPER DILATION / VOCAL FOLD INJECTION OF STEROIDS Location: 4OR06 / [facility] Surgeons: Gil Hernandez MD Relevant Problems Anesthesia (+) Aspiration of liquid Cardio (+) DVT (deep venous thrombosis) (CMS/HCC) (+) Hypertension (+) 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 GI (+) Chronic GERD Neuro/Psych (+) Status post laryngectomy Respiratory (+) Dysphagia causing pulmonary aspiration with swallowing (+) Tracheostomy dependent (CMS/HCC) Endocrine/Metabolic (+) Diabetes mellitus (CMS/HCC) Other (+) Current use of correction anticoagulation (+) Good tolerance for activity (+) Hx of deep venous thrombosis Anesthesia Evaluation Clinical information reviewed: Med Hx Tobacco Allergies Surg Hx Fam Hx Soc Hx NPO Status Physical Exam Airway Mallampati: III Mouth opening: limited TM distance: <3 FB Neck ROM: limited Tracheostomy tube present Comments: Permanent tracheostomy stoma with uncuffed tube with voice box button. Neck very indurated, tissues hard as a rock, non-mobile. Cardiovascular Rhythm: regular Rate: normal Dental (+) edentulous Pulmonary Breath sounds clear to auscultation Neurological Oriented: normal to time, normal to place and normal to person and oriented to person, place and time Skin - normal exam Musculoskeletal - normal exam Extremities -normal exam Anesthesia Plan ASA 3 Anesthesia technique(s) discussed with the patient/family: General Anesthesia plan agreed upon was: general Induction planned: intravenous Airway management planned: general endotracheal Premedication planned: none Anesthetic plan and risks discussed with patient. Plan discussed with DECK SPECIALIST. Additional Equipment Requests documented in this encounter Plan of Treatment Upcoming Encounters Date Type Department Care Team (Late st Contact Info) Description 07/17/2024 12:30 PM EST Clinical Support Pav CC Head, Neck & Respiratory [address] [facility], [address]nd [place] [address] 07/17/2024 1:30 PM EST Appointment [facility] Radiology [address] [place] [address] 07/20/2024 2:50 PM EST Office Visit Pav CC Head, Neck & Respiratory [address] [place] [address] Divine Carpenter MD 800 [facility] Diane Zuniga [address] [place] [address] documented as of this encounter Procedures Procedure Name Priority Date/Time Associated Diagnosis Comments PB ANESTHESIA PLACEHOLDER Routine 02/19/2022 10:01 AM EDT SC AN ELECTIVE ENDOTRACHEAL AIRWAY Routine 02/19/2022 10:01 AM EDT documented in this encounter Results * SC AN ELECTIVE ENDOTRACHEAL AIRWAY, PB ANESTHESIA PLACEHOLDER (02/19/2022 10:01 AM EDT) Narrative Shaun Tapia CRNA, DNP - 02/19/2022 10:01 AM EDT Shaun Tapia CRNA, DNP ? 02/19/2022 10:09 AM Airway Date/Time: 02/19/2022 10:01 AM Urgency: elective Airway not difficult General Information and Staff Patient location during procedure: OR DECK SPECIALIST: Shaun Tapia CRNA, DNP Performed: DECK SPECIALIST Indications and Patient Condition Indications for airway management: anesthesia Spontaneous Ventilation: absent Preoxygenated: yes Patient position: sniffing Final Airway Details Final airway type: endotracheal airway Successful airway: ETT Cuffed: yes Successful intubation technique: blind (place 5.0 in trach stoma) Facilitating devices/methods: cricoid pressure and intubating stylet Endotracheal tube insertion site: oral Blade: La Blade size: #3 ETT size (mm): 5.0 Placement verified by: chest auscultation and capnometry Measured from: stoma ETT to stoma (cm): 10 Number of attempts at approach: 1 us Amy Murillo MD ANESTHESIA ORDERABLES Final R esult documented in this encounter Visit Diagnoses Not on filedocumented in this encounter Administered Medications Inactive Administered Medications - up to 3 most recent administrations Medication Order MAR Action Action Date Dose Rate Site ampicillin-sulbactam (Unasyn) injection Intravenous, As needed, Starting on Nenita 02/19/22 at 1007, Until Nenita 02/19/22 at 1041, Routine, Anesthesia Intraprocedure Given 02/19/2022 10:07 AM EDT 3 g dexamethasone (Decadron) injection Intravenous, As needed, Starting on Nenita 02/19/22 at 1005, Until Nenita 02/19/22 at 1041, Routine, Anesthesia Intraprocedure Given 02/19/2022 10:05 AM EDT 8 mg ePHEDrine Sulfate prefilled syringe Intravenous, As needed, Starting on Nenita 02/19/22 at 1007, Until Nenita 02/19/22 at 1041, Routine, Anesthesia Intraprocedure Given 02/19/2022 10:17 AM EDT 10 mg Given 02/19/2022 10:07 AM EDT 10 mg fentaNYL (Sublimaze) injection Intravenous, As needed, Starting on Nenita 02/19/22 at 1003, Until Nenita 02/19/22 at 1041, Routine, Anesthesia Intraprocedure Given 02/19/2022 10:10 AM EDT 25 mcg Given 02/19/2022 10:03 AM EDT 25 mcg glycopyrrolate (Robinul) injection Intravenous, As needed, Starting on Nenita 02/19/22 at 1003, Until Nenita 02/19/22 at 1041, Routine, Anesthesia Intraprocedure Given 02/19/2022 10:03 AM EDT 0. 2 mg lactated Ringer's infusion 100 mL/hr, Intravenous, Once, 1 dose, On Nenita 02/19/22 at 0845, Routine New Bag 02/19/2022 9:52 AM EDT ondansetron (Zofran) injection Intravenous, As needed, Starting on Nenita 02/19/22 at 1004, Until Nenita 02/19/22 at 1041, Routine, Anesthesia Intraprocedure Given 02/19/2022 10:04 AM EDT 4 mg phenylephrine in NS (Scott-Synephrine) 100 mcg/mL prefilled syringe Intravenous, As needed, Starting on Nenita 02/19/22 at 1017, Until Nenita 02/19/22 at 1041, Routine, Anesthesia Intraprocedure Given 02/19/2022 10:17 AM EDT 10 0 mcg Given 02/19/2022 10:08 AM EDT 100 mcg propofol (Diprivan) injection Intravenous, As needed, Starting on Nenita 02/19/22 at 1000, Until Nenita 02/19/22 at 1041, Routine, Anesthesia Intraprocedure Given 02/19/2022 10:00 AM EDT 170 mg rocuronium (ZeMuron) injection Intravenous, As needed, Starting on Nenita 02/19/22 at 1000, Until Nenita 02/19/22 at 1041, Routine, Anesthesia Intraprocedure Given 02/19/2022 10:00 AM EDT 20 mg sugammadex (Bridion) 200 MG/2ML injection Intravenous, As needed, Starting on Nenita 02/19/22 at 1026, Until Nenita 02/19/22 at 1041, Routine, Anesthesia Intraprocedure Given 02/19/2022 10:26 AM EDT 200 mg documented in this encounter Additional Health Concerns Assessment Noted Time A fall risk assessment has been complete d for the patient 12/08/2021 1:20 PM EDT documented as of this encounter Care Teams Squirrel Man Relationship Specialty Start Date End Date Michele Wright MD [address] [place] [address] PCP - General 10/11/20 Edgar Szymanski MD [address] [facility] [address] [place] [address] Radiation Oncologist Radiation Therapy 03/14/20 4 Shun Hurst MD [address] [place] [address] Surgeon Neurosurgery 02/24/21 Divine Carpenter MD [address] [facility] [address] [place] [address] Medical Oncologist Medical Oncology 06/13/21 documented as of this encounter
--- OUTSIDE RECORDS SUMMARY | 2024-05-03 13:39 | XMS_ITS | Encounter Summary ---
Author Organization Healthcare Address [address] [place] [address] Care Team Providers Care Cabinet Worker Name Role Phone Michele Wright MD Primary Care Provider + [phone] Edgar Szymanski MD Unavailable [phone] Shun Hurst MD Unavailable [phone] Divine Carpenter MD Unavailable [phone] Encounter Details Date Type Department Care Team (Latest Contact Info) Description 12/04/2021 Travel Social History Tobacco Use Types Packs/Day [...] Neck & Respiratory 800 [facility], [address]nd [place] [address] 07/17/2024 1:30 PM EST Appointment [facility] Radiology [address] [place] [address] 07/20/2024 2:50 PM EST Office Visit Pav CC Head, Neck & Respiratory 800 [facility], 2nd [place] [address] Divine Carpenter MD 800 [facility] Diane Zuniga [facility] [address] [place] [address] documented as of this encounter Visit Diagnoses Not on filedocumented in this encounter Additional Health Concerns Assessment Noted Time A fall risk assessment has been complete d for the patient 08/18/2021 9:25 AM EDT documented as of this encounter Care Teams Cabinet Worker Relationship Specialty Start Date End Date Michele Wright MD [address] [place] [address] PCP - General 10/11/20 Edgar Szymanski MD 800 [facility] [address] [place] [phone] Radiation Oncologist Radiation Therapy 03/14/20 4 Shun Hurst MD [address] [facility] [address] [place] [address] Surgeon Neurosurgery 02/24/21 Divine Carpenter MD [address] [facility] Diane Zuniga [facility] [address] [place] [address] Medical Oncologist Medical Oncology 06/13/21 documented as of this encounter
--- OUTSIDE RECORDS SUMMARY | 2024-05-03 13:39 | XMS_ITS | Encounter Summary ---
Author Organization [facility] Address [address] [place], [place] [phone] Care Team Providers Care Thread Weaver Name Role Phone Michele Wright MD Primary Care Provider + [phone] Edgar Szymanski MD Unavailable [phone] Shun Hurst MD Unavailable [phone] Divine Carpenter MD Unavailable [phone] Reason for Visit * Reason Comments Med Refill Encounter Details Date Type Department Care Team (Late st Contact Info) Description 01/19/2022 Refill Pav CC Head, Neck & Respiratory 800 [facility], [address]nd [place] [address] Divine Crapenter MD 800 [facility] [address] [place] [address] Social History Tobacco Use Types [...] Neck & Respiratory 800 [facility], [address]nd [place] [address] 07/17/2024 1:30 PM EST Appointment [facility] G Radiology [address] [place] [address] 07/20/2024 2:50 PM EST Office Visit Pav CC Head, Neck & Respiratory 800 [facility], [address]nd [place] [address] Divine Carpenter MD [address] [facility] [address] [place] [address] documented as of this encounter Visit Diagnoses Not on filedocumented in this encounter Additional Health Concerns Assessment Noted Time A fall risk assessment has been complete d for the patient 12/08/2021 1:20 PM EDT documented as of this encounter Care Teams Thread Weaver Relationship Specialty Start Date End Date Michele Wright MD [address] [place] [address] PCP - General 10/11/20 Edgar Szymanski MD 800 [facility] [address] [place] [phone] Radiation Oncologist Radiation Therapy 03/14/20 4 Shun Hurst MD [address] [place] [address] Surgeon Neurosurgery 02/24/21 Divine Carpenter MD [address] [place] [address] Medical Oncologist Medical Oncology 06/13/21 documented as of this encounter
--- OUTSIDE RECORDS SUMMARY | 2024-05-03 13:39 | XMS_ITS | Encounter Summary ---
Author Organization Healthcare Address [address] [place] [address] Care Team Providers Care Septic Tank Installer Name Role Phone Michele Wright MD Primary Care Provider + [phone] Edgar Szymanski MD Unavailable [phone] Shun Hurst MD Unavailable [phone] Divine Carpenter MD Unavailable [phone] Encounter Details Date Type Department Care Team (Latest Contact Info) Description 02/18/2022 Travel Social History Tobacco Use Types Packs/Day [...] Pav CC Head, Neck & Respiratory 800 [facility], [address]nd [place] [address] 07/17/2024 1:30 PM EST Appointment PAV G Radiology [address] [place] [address] 07/20/2024 2:50 PM EST Office Visit Pav CC Head, Neck & Respiratory 800 [facility], [address]nd [place] [address] Divine Carpenter MD [address] [facility] Diane Zuniga [facility] [address] [place] [address] documented as of this encounter Visit Diagnoses Not on filedocumented in this encounter Additional Health Concerns Assessment Noted Time A fall risk assessment has been complete d for the patient 12/08/2021 1:20 PM EDT documented as of this encounter Care Teams Septic Tank Installer Relationship Specialty Start Date End Date Michele Wright MD [address] [place] [address] PCP - General 10/11/20 Edgar Szymanski MD 800 [facility] [address] [place] [address] Radiation Oncologist Radiation Therapy 03/14/20 4 Shun Hurst MD [address] [facility] [address] [place] [address] Surgeon Neurosurgery 02/24/21 Divine Carpenter MD 800 [facility] Diane Zuniga [facility] [address] [place] [address] Medical Oncologist Medical Oncology 06/13/21 documented as of this encounter
--- OUTSIDE RECORDS SUMMARY | 2024-05-03 13:39 | XMS_ITS | Encounter Summary ---
Author Organization Healthcare Address [address] [phone] Care Team Providers Care Full Time Name Role Phone Michele Wright MD Primary Care Provider + [phone] Edgar Szymanski MD Unavailable [phone] Shun Hurst MD Unavailable [phone] Divine Carpenter MD Unavailable [phone] Reason for Referral * Consultation (Routine) - Closed Specialty Diagnoses / Procedures Referred By Contac t Referred To Contact Otolaryngology Diagnoses Cancer of larynx (CMS/HCC) Dysphagia, pharyngeal Tracheostomy dependent (CMS/HCC) Divine Carpenter MD 800 [facility] [address] [place] [address] Phone: tel: fax: Gil Hernandez MD [address] [facility] [address] [place] [address] Phone: tel: fax: Referral ID Status Reason Start Date Expiration Date V isits Requested Visits Authorized [id number] Closed Specialty Services Required 12/09/2021 06/10/2023 1 1 Encounter Details Date Type Department Care Team ([facility] st Contact Info) Description 12/09/2021 Orders Only Pav CC Head, Neck & Respiratory 800 [facility], [address]nd [place] [phone] Ambika Ambriz, RN [facility] Cancer of larynx (CMS/HCC) (Primary Dx); Dysphagia, pharyngeal; Tracheostomy dependent (CMS/HCC) Social History [...] Pav CC Head, Neck & Respiratory [address] [phone] 07/17/2024 1:30 PM EST Appointment PAV G Radiology [address] [place] [address] 07/20/2024 2:50 PM EST Office Visit Pav CC Head, Neck & Respiratory 800 [facility], [address] [place] [address] Divine Carpenter MD 800 [facility] [address] [place] [address] Scheduled Referrals Name Type Priority Associated Diagnoses Order Schedule Ambulatory referral to ENT Outpatient Referral Routine Cancer of larynx (CMS/HCC) Dysphagia, pharyngeal Tracheostomy dependent (CMS/HCC) Expected: 12/09/2021 (Approximate), Expires: 06/11/2023 documented as of this encounter Visit Diagnoses Diagnosis 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, unspecified site Dysphagia, pharyngeal Dysphagia, pharyngeal phase Tracheostomy dependent (CMS/HCC) Tracheostomy status documented in this encounter Additional Health Concerns Assessment Noted Time A fall risk assessment has been complete d for the patient 12/08/2021 1:20 PM EDT documented as of this encounter Care Teams Full Time Relationship Specialty Start Date End Date Michele Wright MD [address] [address] PCP - General 10/11/20 Edgar Szymanski MD [address] [facility] [address] [place] [address] Radiation Oncologist Radiation Therapy 03/14/20 4 Shun Hurst MD [address] [facility] [address] [place] [address] Surgeon Neurosurgery 02/24/21 Divine Carpenter MD [address] [facility] [address] [place] [address] Medical Oncologist Medical Oncology 06/13/21 documented as of this encounter
--- OUTSIDE RECORDS SUMMARY | 2024-05-03 13:39 | XMS_ITS | Encounter Summary ---
Author Organization [facility] Address [address] [place], [place] [id number] Care Team Providers Care Airdox Fitter Name Role Phone Michele Wright MD Primary Care Provider + [phone] Edgar Szymanski MD Unavailable [phone] Shun Hurst MD Unavailable [phone] Divine Carpenter MD Unavailable [phone] Encounter Details Date Type Department Care Team (Late st Contact Info) Description 12/15/2021 Telephone [facility] Head[facility] Neck & Respiratory [address] [facility], [address]nd [place] [address] Divine Carpenter MD 800 [facility] [address] [place] [address] Social History Tobacco Use Types Packs/Day Years [...] Telephone Encounter - Ambika Ambriz RN - 12/15/2021 2:24 PM EDT Patient coming in tomorrow for TPA * Telephone Encounter - Earnestine Cope - 12/15/2021 12:30 PM EDT Patient Phone Message Reason for Call: Trouble drawing blood from port a cath. called stating that the patient went for blood work and they were unable to get blood return from port. States they miguel via venipuncture. They are concerned about leaving port a cath in. Please call andadvise. Best contact number and optimal time of day to reach caller: Note: Please do not reply to this message. Follow-up communication and further actions as a result of this message need to be communicated with the patient directly, if the patient is not active onMyChart. If the patient is active on MyChart, they will receive notification of the communication/outcome via TickTickTicketst. documented in this encounter Plan of Treatment Upcoming Encounters Date Type Department Care Team (Late st Contact Info) Description 07/17/2024 12:30 PM EST Clinical Support Pav [facility] Head[facility] Neck & Respiratory [address] [facility], [address]nd [place] [address] 07/17/2024 1:30 PM EST Appointment [facility] Radiology [address] [place] [phone] 07/20/2024 2:50 PM EST Office Visit Pav [facility] Head, Neck & Respiratory [address] [facility], [address]nd [place] [phone] Divine Carpenter MD [address] [facility] Diane Zuniga [facility] [address] [place] [address] documented as of this encounter Visit Diagnoses Not on filedocumented in this encounter Additional Health Concerns Assessment Noted Time A fall risk assessment has been complete d for the patient 12/08/2021 1:20 PM EDT documented as of this encounter Care Teams Airdox Fitter Relationship Specialty Start Date End Date Michele Wright MD [address] [place] [address] PCP - General 10/11/20 Edgar Szymanski MD [address] [facility] [address] [place] [address] Radiation Oncologist Radiation Therapy 03/14/20 4 Shun Hurst MD [address] [place] [address] Surgeon Neurosurgery 02/24/21 Divine Carpenter MD [address] [facility] [address] [place] [address] Medical Oncologist Medical Oncology 06/13/21 documented as of this encounter
--- OUTSIDE RECORDS SUMMARY | 2024-05-03 13:39 | XMS_ITS | Encounter Summary ---
Author Organization [facility] Address [address] [place] [address] Care Team Providers Care Wellness Trainer Name Role Phone Michele Wright MD Primary Care Provider + [phone] Edgar Szymanski MD Unavailable [phone] Shun Hurst MD Unavailable [phone] Bailey Ellis MD Unavailable [phone] Reason for Referral * Imaging (Routine) - Closed Specialty Diagnoses / Procedures Referred By Contac t Referred To Contact Radiology Diagnoses Cancer of larynx (CMS/HCC) Primary hypertension Procedures CT Soft Tissue Neck w IV Contrast Bailey Ellis MD [address] [address] Phone: tel: fax: Referral ID Status Reason Start Date Expiration Date Visits Re quested Visits Authorized [id number] Closed 11/03/2021 05/05/2023 1 1 * Imaging (Routine) - Closed Specialty Diagnoses / Procedures Referred By Contac t Referred To Contact Radiology Diagnoses Cancer of larynx (CMS/HCC) Primary hypertension Procedures CT Chest w IV Contrast Bailey Ellis MD [address] [address] Phone: tel: fax: Referral ID Status Reason Start Date Expiration Date Visits Re quested Visits Authorized [id number] Closed 11/03/2021 05/05/2023 1 1 Reason for Visit * Imaging (Routine) - Closed Specialty Diagnoses / Procedures Referred By Ortega t Referred To Contact Radiology Diagnoses Cancer of larynx (CMS/HCC) Primary hypertension Procedures CT Soft Tissue Neck w IV Contrast Bailey Ellis MD 800 [facility] [address] [place] [address] Phone: tel: fax: Referral ID Status Reason Start Date Expiration Date Visits Re quested Visits Authorized [id number] Closed 11/03/2021 05/05/2023 1 1 Encounter Details Date Type Department Care Team (Latest Contact Info) Description 12/04/2021 3:38 PM EDT - 12/04/2021 11:59 PM EDT Hospital Encounter [facility] Radiology [address] [place] [address] Cancer of larynx (CMS/HCC); Primary hypertension Discharge Disposition: Home or Self Care Social [...] Everywhere. * Contrast Imaging Discharge Instructions ([place]) ([place]) documented in this encounter Medications at Time [...] each day. 30 tablet 11 06/30/2021 07/12/2023 omeprazole (PriLOSEC) [address] capsule TAKE 1 CAPSULE BY MOUTH EVERY DAY 90 capsule 2 04/29/2021 01/19/2022 ondansetron (Zofran) 8 MG tablet Take 1 [...] TO HELP WITH URINE FLOW 30 capsule 11/26/2021 12/26/2021 documented as of this encounter Plan of Treatment Upcoming Encounters Date Type Department Care Team (Late st Contact Info) Description 07/17/2024 12:30 PM EST Clinical Support Pav [facility] Head, Neck & Respiratory 800 [facility], [address]nd [place] [address] 07/17/2024 1:30 PM EST Appointment [facility] Radiology [address] [place] [address] 07/20/2024 2:50 PM EST Office Visit Pav [facility] Head, Neck & Respiratory 800 [facility], [address] [place] [address] Bailey Ellis MD 800 [facility] [address] [place] [address] documented as of this encounter Procedures Procedure Name Priority Date/Time Associated Diagnosis Comments CT CHEST W IV CONTRAST Routine 12/04/2021 4:17 PM EDT Cancer of larynx (CMS/HCC) Primary hypertension CT SOFT TISSUE NECK W IV CONTRAST Routine 12/04/2021 4:17 PM EDT Cancer of larynx (CMS/HCC) Primary hypertension POCT CREATININE ISTAT UNSOLICITED RESULTS Routine 12/04/2021 3:57 PM EDT documented in this encounter Results * CT Soft Tissue Neck w IV Contrast (12/04/2021 4:17 PM EDT) Anatomical Region Laterality Modality Neck Computed Tomogra phy Impressions 12/04/2021 9:25 PM EDT Unchanged since the previous CT examination of 14-Aug-21. No recurrence. Right hemiatrophy of the tongue. Extensive surgical/treatment changes. Elias Washburn M.D. This report has been electronically signed and verified by the Radiologist whose name is printed above. DD: ??12/04/2021/DT: ??12/04/2021 This report contains privileged and confidential information [...] error, please notify the sender immediately at [phone] and permanently delete the original report and destroy any copies or printouts. Narrative 12/04/2021 9:25 PM EDT [facility] NAME: Anibal Barreto ?? DATE OF EXAM: 12/04/2021 Patient No: ??[id number] Physician: ??Jayden^Bailey Date of : ??1965 Past Medical/Surgical History (entered by technologist): ?? Symptoms/Reason For Exam (entered by technologist): ??eval for metastatic disease Tech Notes (entered by technologist): iohexol (OMNIPaque) 300 MG/ML injection 100 mL Given: 100 mL Intravenous Additional History (per [facility]): Per the electronic medical record: Stage IV laryngeal cancer. Automated exposure control was used for radiation dose reduction. Total DLP 1142 mGy-cm Multiplanar reformats were generated. Comparison: CT neck 14-Aug-21. FINDINGS: Unchanged since the pre-'s examination. Laryngectomy, bilateral neck dissection, tracheostomy, flap reconstruction. Right hemiatrophy of the tongue. No mass or significant cervical adenopathy. Right apical scarring, no other definite thoracic abnormality. No suspicious bone lesions. Moderate degenerative changes of the cervical spine. Visualized portions of the brain and orbits appear normal. Moderate atherosclerosis of the right cervical carotid artery. Minimal mucosal thickening of the paranasal sinuses. Mastoid air cells and tympanic cavities appear normal. Procedure Note Elias Washburn MD - 12/04/2021 [facility] NAME: Anibal Barreto DATE OF EXAM: 12/04/2021 Patient No: [id number] Physician: Jayden^Bailey Date of : 1965 Past Medical/Surgical History (entered by technologist): Symptoms/Reason For Exam (entered by technologist): eval for metastaticdisease Tech Notes (entered by technologist): iohexol (OMNIPaque) 300 MG/MLinjection 100 mL Given: 100 mL Intravenous Additional History (per [facility]): Per the electronic medicalrecord: Stage IV laryngeal cancer. Automated exposure control was used for radiation dose reduction. TotalDLP 1142 mGy-cm Multiplanar reformats were generated. Comparison: CT neck 14-Aug-21. FINDINGS: Unchanged since the pre-'s examination. Laryngectomy, bilateral neck dissection, tracheostomy, flapreconstruction. Right hemiatrophy of the tongue. No mass or significantcervical adenopathy. Right apical scarring, no other definite thoracicabnormality. No suspicious bone lesions. Moderate degenerative changes ofthe cervical spine. Visualized portions of the brain and orbits appearnormal. Moderate atherosclerosis of the right cervical carotid artery.Minimal mucosal thickening of the paranasal sinuses. Mastoid air cells andtympanic cavities appear normal. IMPRESSION: Unchanged since the previous CT examination of [...] in error, pleasenotify the sender immediately at [phone] and permanently delete theoriginal report and destroy any copies or printouts. us Bailey Ellis MD IMG CT PROCEDURES Final Resu lt * CT Chest w IV Contrast (12/04/2021 4:17 PM EDT) Anatomical Region Laterality Modality Chest Computed Tomogra phy Impressions 12/04/2021 4:39 PM EDT Waxing and waning nodular thickening of the right apex, worsened since July 2021, indeterminate. No new suspicious lesions. CRITICAL RESULT: No. COMMUNICATION: Per this written report. Dictated by Brianna Carranza on 12/04/2021 4:29 PM Signed by Brianna Carranza on 12/04/2021 4:39 PM Narrative 12/04/2021 4:39 PM EDT Exam/Procedure: CT CHEST W IV CONTRAST ordered by BAILEY ELLIS, [id number] CLINICAL INDICATION: eval for metastatic disease TECHNIQUE: Multiple CT helical images were obtained from thoracic inlet through upper abdomen with administration of IV contrast. 100 ??mL of Omnipaque-300 were administered intravenously. ?? Total DLP (Dose-Length Product): 1142.08 mGy.cm. Please note: The reported value represents the total of one or more individual components during the CT acquisition on this date and at this time, and as such, the same value may appear in more than one CT report depending on the interpreting/reporting physicians. COMPARISON: August 14, 2021, June 12, 2021 FINDINGS: Mediastinum and Pleura: No enlarged mediastinal or hilar lymph nodes. No pleural or pericardial effusions. Patulous esophagus. Lungs: Interval increase in nodular thickening of the posterior scar within right apex, 7 mm versus 4 mm previously, image 27 of series 3. No new suspicious lesions in the remaining lungs. Mild distal scattered mucous plugging within left lung base, present before. Upper Abdomen: No suspicious lesions in the partially visualized upper abdomen. Musculoskeletal: No suspicious lytic or sclerotic lesion. Procedure Note Brianna Carranza MD - 12/04/2021 Exam/Procedure: CT CHEST W IV CONTRAST ordered by BAILEY ELLIS,[id number] CLINICAL INDICATION: eval for metastatic disease TECHNIQUE: Multiple CT helical images were obtained from thoracic inlet through upperabdomen with administration of IV contrast. 100 mL of Omnipaque-300 wereadministered intravenously. Total DLP (Dose-Length Product): 1142.08 mGy.cm. Please note: The reportedvalue represents the total of one or more individual components during theCT acquisition on this date and at this time, and as such, the same valuemay appear in more than one CT report depending on theinterpreting/reporting physicians. COMPARISON: August 14, 2021, June 12, 2021 FINDINGS: Mediastinum and Pleura: No enlarged mediastinal or hilar lymph nodes. Nopleural or pericardial effusions. Patulous esophagus. Lungs: Interval increase in nodular thickening of the posterior scarwithin right apex, 7 mm versus 4 mm previously, image 27 of series 3. Nonew suspicious lesions in the remaining lungs. Mild distal scatteredmucous plugging within left lung base, present before. Upper Abdomen: No suspicious lesions in the partially visualized upperabdomen. Musculoskeletal: No suspicious lytic or sclerotic lesion. IMPRESSION: Waxing and waning nodular thickening of the right apex, worsened sinceJuly 2021, indeterminate. No new suspicious lesions. CRITICAL RESULT: No. COMMUNICATION: Per this written report. Dictated by Brianna Carranza on 12/04/2021 4:29 PM Signed by Brianna Carranza on 12/04/2021 4:39 PM Bailey Ellis MD IMG CT PROCEDURES Final Resu lt * POCT creatinine (12/04/2021 3:57 PM EDT) [facility] Creatinine, Point of Care 0.8 0.8 - 1.3 mg/dL 12/04/2021 4:05 PM EDT [facility] POCT eGFR >60 mL/min/1. 73m*2 12/04/2021 4:05 PM EDT [facility] POCT eGFR >60 mL/min/1. 73m*2 12/04/2021 4:05 PM EDT [facility] Engineering Scientist ID MANOLO SPEARS 12/04/2021 4:05 PM EDT HEALTH[facility]ARE LAB Device ID [id number] 12/04/2021 4:05 PM EDT [facility] Comment 12/04/2021 4:05 PM EDT [facility] Comment: Testing performed on i-STAT at the point of care. The eGFR is calculated from the creatinine concentration determined by the iSTAT Point of Care (POC) device using an isotope dilution mass spectrometry (IDMS)-traceable Modification of Diet in Renal Disease (MDRD) equation. Blood Venous blood specimen / Unknown 12/04/2021 3:57 PM EDT 12/04/2021 4:05 PM EDT us Generic Provider Poct LAB POINT OF CARE TEST DOCKED DEVICE UNSOLICITED RESULTS Final Result [facility] [address] [place] [address] documented in this encounter Visit Diagnoses Diagnosis 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, unspecified site Primary hypertension Unspecified essential hypertension documented in this encounter Administered Medications Inactive Administered Medications - up to 3 most recent administrations Medication Order MAR Action Action Date Dose Rate Site iohexol (OMNIPaque) 300 MG/ML injection 100 mL 100 mL, Intravenous, Once in imaging, 1 dose, Starting on Nenita 12/04/21 at 1541, Until Nenita 12/04/21 at 1616, Routine, Imaging Protocol Orders Given 12/04/2021 4:16 PM EDT 100 mL documented in this encounter Additional Health Concerns Assessment Noted Time A fall risk assessment has been complete d for the patient 08/18/2021 9:25 AM EDT documented as of this encounter Care Teams Wellness Trainer Relationship Specialty Start Date End Date Michele Wright MD [address] [phone] PCP - General 10/11/20 Edgar Szymanski MD 800 [facility] [address] [place] [phone] Radiation Oncologist Radiation Therapy 03/14/20 4 Shun Hurst [facility] [address] [facility] [address] [place] [phone] Surgeon Neurosurgery 02/24/21 Bailey Ellis MD 800 [facility] Diane Efrain [facility] [address] [place] [phone] Medical Oncologist Medical Oncology 06/13/21 documented as of this encounter
--- OUTSIDE RECORDS SUMMARY | 2024-05-03 13:39 | XMS_ITS | Encounter Summary ---
Author Organization Healthcare Address [address] [id number] Care Team Providers Care Sensitometrist Name Role Phone Michele Wright MD Primary Care Provider [phone] Edgar Szymanski MD Unavailable [phone] Shun Hurst MD Unavailable [phone] Divine Carpenter MD Unavailable [phone] Reason for Visit * Auth/Cert (Routine) Specialty Diagnoses / Procedures Referred By Ortega t Referred To Contact Diagnoses Dysphagia Dysphagia [R13.10] Procedures TN LARYNGOSCOPY,DIRECT,SCOPE,IN J CORDS TN ESOPHAGOSCOPY FLEXIBLE TRANSORAL DIAGNOSTIC TN ESOPHAGOSCOPY FLEXIBLE TRANSORAL WITH BIOPSY TN ESOPHAGOSCOPY FLEX BALLOON DILAT <30 MM DIAM TN ESOPHAGOSCOPY DILATE ESOPHAGUS BALLOON 30 MM LARYNGOSCOPY,FLEXIBLE ESOPHAGOSCOPY,WITH LESION DESTRUCTION USING CO2 LASER / ESOPHAGEAL BALLOON DILATION - POSS SUPER DILATION / VOCAL FOLD INJECTION OF STEROIDS Gil Hernandez MD [address] [facility] [address] [place] [address] Phone: tel: fax: [facility] [address] [place] [address] Phone: tel: Referral ID Status Reason Start Date Expiration Date Visits Re quested Visits Authorized [id number] 1 1 Encounter Details Date Type Department Care Team (Late st Contact Info) Description 02/19/2022 7:38 AM EDT - 02/19/2022 11:35 AM EDT Hospital Encounter [facility] [address] [place] [address] Gil Hernandez MD [address] [place] [phone] Discharge Disposition: Home or Self Care Social [...] Sign Reading Time Taken Comments Blood Pressure 158/75 02/19/2022 11:00 AM EDT Pulse 58 02/19/2022 11:05 AM EDT Temperature 36.2 ??C (97.2 ??F) 02/19/2022 1 1:05 AM EDT Respiratory Rate 12 02/19/2022 11:0 5 AM EDT Oxygen Saturation 93% 02/19/2022 11: 05 AM EDT Inhaled Oxygen Concentration - - Weight 93.8 kg (206 lb 12.7 oz) 02/19/2022 8:18 AM EDT Height 177.8 cm (5' 10 ) 02/19/2022 8:18 AM EDT Body Mass Index 29.67 02/19/2022 8:18 AM EDT documented in this encounter Discharge Instructions * Attachments The following attachments cannot be sent through Care Everywhere. * Controlled Substance Discharge Sheet - KEVAN () (Maltese) * Post-Anesthesia and Postoperative Instructions ([place]) (Maltese) * Direct Laryngoscopy with Biopsy - Head and Neck Cancer ([place]) (Maltese) documented in this encounter Medications at Time of Discharge fluconazole (Diflucan) 100 MG tablet Take 1 tablet (100 mg total) by mouth 1 (one) time each day for 14 days. Take 100mg daily for 2 weeks before surgery 15 tablet 02/03/2022 02/19/2022 ALPRAZolam (Xanax) 1 MG tablet Take 1 [...] TO HELP WITH URINE FLOW 30 capsule 01/26/2022 02/25/2022 documented as of this encounter Miscellaneous Notes * Anesthesia PACU Signout - Ambika Murillo MD - 02/19/2022 10:06 AM EDT Patient: Anibal Barreto Anesthesia Type: general Vitals Value Taken Time BP 158/75 02/19/22 1100 Temp 36.2 ??C (97.2 ??F) 02/19/22 1105 Pulse 56 02/19/22 1106 Resp 10 02/19/22 1106 SpO2 93 % 02/19/22 1106 Vitals shown include unvalidated device data. Anesthesia PACU Signout Patient location during evaluation: PACU Patient participation: complete - patient participated Level of consciousness: baseline Pain management: adequate (pain score 0-3) Airway patency: natural airway Hydration status: acceptable PONV: none Cardiovascular status: acceptable Respiratory status: acceptable Discharge Disposition: home * Op Note - Doug Hameed MD - 02/19/2022 10:06 AM EDT Operative Note Date: 02/19/22 Location: [facility] OR Name: Anibal Barreto, : 1965, Diagnoses: Pre-op Diagnosis Dysphagia Post-op Diagnosis Dysphagia Procedure(s): Direct laryngoscopy Flexible esophagoscopy with super dilation Injection of steroid Attending Surgeon(s): * Gil Hernandez - Primary Poultry Picking Machine Tender(s): * Doug Hameed MD - Resident - Assisting Anesthesia: * No anesthesia type entered * ASA: III Blood Administration: Blood Product Administration History Date Volume Status Transfuse platelets 06/12/2021 234 mL Completed 06/12/21 18:27 Estimated Blood Loss: None Drains: * None in log * Specimen: None Findings: Area of narrowing at the level of the opening of the neopharynx. No signs of candidiasis.Normal esophageal and gastric mucosa Indications: Anibal Barreto is an 56 y.o. male who is having surgery for Dysphagia. Narrative: Patient brought into the operating room and general anesthesia administered. Patient rotated 90 degrees to the operating team and time-out performed. 5-0 RN SOCIAL WORK placed in the stoma. A dedo laryngoscope was used to visualize the opening of the neopharynx and placed in suspension. EGD scope was used to visualize the esophageal opening. Flexible EGD passed through the esophgeal opening to the level of the stomach to evaluate the esophageal and gastric mucosa. It was then withdrawn to the level of stenosis. Tight area and 18-20mm esophageal balloon passed through the EGD scope and dilated to 20mm. Then 30 Luxembourger bougie passed alongside to dilate in addition. Total dilation size of 90 yoruba (30mm). Steroid was then injected into the esophageal mucosa. Esophageal mucosa normal appearing and no fungal infection or friability noted. Scopes removed and patient rotated back to anesthesia for wake-up. Complications: None; patient tolerated the procedure well. Submitted by: Doug Hameed MD - 02/19/2022 Cosigned by Gil Hernandez MD at 02/25/2022 9:09 AM EDT Associated attestation - Gil Hernandez MD - 02/25/2022 9:09 AM EDT I was present and scrubbed for the entire case and agree with the above description of the entire procedure. * H&P - Doug Hameed MD - 02/19/2022 8:41 AM EDT Patient seen and evaluated in pre operative area. No changes to H&P. 14 point review of system negative except per HPI. I had the pleasure of seeing Anibal Barreto today, who is a 56 y.o. male that returns to the clinic for follow-up of his swallowing. He has metastatic supraglottic squamous cell carcinoma that is currently still being treated with Dr. Carpenter at [facility] with chemotherapy for maintenance. He denies any [...] dilation, possible super dilation in clinic today. Cosigned by Gil Hernandez MD at 02/25/2022 9:02 AM EDT Associated attestation - Gil Hernandez MD - 02/25/2022 9:02 AM EDT I saw and evaluated the patient with the resident/fellow. I discussed the case with the resident/fellow and agree with the findings and plan as documented. * PAT Phone Note - Kristin Baeza RN - 02/12/2022 1:31 PM EDT HPI Anibal Barreto is a 56 y.o. male who presents with Pre-op Diagnosis * Dysphagia [R13.10] now scheduled for LARYNGOSCOPY,FLEXIBLE ESOPHAGOSCOPY,WITH LESION DESTRUCTION USING CO2 LASER / ESOPHAGEAL BALLOON DILATION - POSS SUPER DILATION / VOCAL FOLD INJECTION OF STEROIDS (N/A). Past Medical History: Diagnosis Date Chronic pain disorder neck/face post radiation/cancer. 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 Laryngeal cancer (CMS/HCC) s/p chemo/radiation Neoplasm related pain 10/14/2020 Other diseases of pharynx Hypopharyngeal mass Personal history of antineoplastic chemotherapy History of chemotherapy Personal history of irradiation History of radiation therapy Personal history of other diseases of the respiratory system History of hemoptysis Personal history of other endocrine, nutritional and metabolic disease History of high cholesterol Personal history of other specified conditions 2019 History of palpitations Pure hypercholesterolemia, unspecified Elevated cholesterol Unspecified disorder of ear, unspecified ear Ear problems Unspecified disorder of nose and nasal sinuses Sinus disorder Unspecified osteoarthritis, unspecified site Arthritis Family History Problem Relation Name Age of Onset Stroke Father Kidney failure Father FH: kidney failure Liver cancer Mother FH: liver cancer Breast cancer Sister Uterine cancer Sister Heart attack Sister Uterine cancer Sister FH: uterine cancer Anesthesia problems Neg Hx Malig Hyperthermia Neg Hx Social History Tobacco Use Smoking status: Former Types: Cigarettes Quit date: 2000 Years since quittin.7 Smokeless tobacco: Never Vaping Use Vaping Use: Never used Substance Use Topics Alcohol use: Not Currently Comment: Alcoholic Drinks/day: Quit consuming alcohol in remote past Drug use: Not Currently Types: Morphine SURGICAL HISTORY: Past Surgical History: Procedure Laterality Date ESOPHAGEAL DILATION x2 ESOPHAGOGASTRODUODENOSCOPY N/A Esophagogastroduodenoscopy from [facility] FEEDING TUBE PLACEMENT N/A Now removed LARYNGOSCOPY N/A Laryngoscopy from [facility] LUNG SURGERY OTHER SURGICAL HISTORY N/A Neck dissection modified radical from [facility] OTHER SURGICAL HISTORY N/A Percutaneous endoscopic gastrostomy tube removal from [facility] OTHER SURGICAL HISTORY N/A Laryngectomy from [facility] OTHER SURGICAL HISTORY N/A Trachectomy from [facility] PARTIAL LARYNGECTOMY TRACHEOSTOMY TUBE PLACEMENT Allergies Allergen Reactions Cetuximab Anaphylaxis SOA, hypotension, after 9 ml of drug Docetaxel Rash, Shortness of breath and Unknown Patient very dyspnic, flushed, severe back pain. Patient very dyspnic, flushed, severe back pain. Patient very dyspnic, flushed, severe back pain. Methadone Rash and Other MEDICATIONS: No current facility-administered medications for this encounter. Current Outpatient Medications: ALPRAZolam, Take 1 mg by mouth 2 (two) times a day. fluconazole, Take 1 tablet (100 mg total) by mouth 1 (one) time each day for 14 days. Take 100mg daily for 2 weeks before surgery gabapentin, Take 1 tablet (600 mg total) by mouth 4 (four) times a day. hydroCHLOROthiazide, Take 1 tablet (25 mg total) by mouth 1 (one) time each day. levothyroxine, Take 150 mcg by mouth 1 (one) time each day before breakfast. lisinopril, Take 1 tablet (5 mg total) by mouth 1 (one) time each day. omeprazole, TAKE 1 CAPSULE BY MOUTH EVERY DAY ondansetron, Take 1 tablet (8 mg total) by mouth 2 (two) times a day. Starting day after chemo for 3 days. oxyCODONE, Take 30 mg by mouth every 3 (three) hours if needed for severe pain. prochlorperazine, Take 1 tablet (10 mg total) by mouth every 6 (six) hours if needed for nausea or vomiting. tamsulosin, TAKE 1 CAPSULE BY MOUTH EVERY NIGHT TO HELP WITH URINE FLOW dexamethasone, Take 1 tablet (6 mg total) by mouth 1 (one) time each day for 6 doses. Anesthesia Evaluation Physical Exam Anesthesia Plan Kristin Baeza RN * Preprocedure Instructions - Kristin Baeza RN - 02/12/2022 1:31 PM EDT Current Medications Medication Instructions ALPRAZolam (Xanax) 1 MG tablet Take morning of surgery fluconazole (Diflucan) 100 MG tablet Take as prescribed gabapentin (Neurontin) 600 MG tablet Take morning of surgery hydroCHLOROthiazide (HYDRODiuril) 25 MG tablet Hold day of surgery levothyroxine (Synthroid, Levoxyl) 150 MCG tablet Take morning of surgery lisinopril 5 MG tablet Hold day of surgery omeprazole (PriLOSEC) [address] capsule Take morning of surgery ondansetron (Zofran) 8 MG tablet Take as needed oxyCODONE (Roxicodone) 30 MG immediate release tablet Take as needed prochlorperazine (Compazine) 10 MG tablet Take as needed tamsulosin (Flomax) 0.4 MG 24 hr capsule Per home routine at night General Preoperative Instructions You will be called [...] card, photo ID, along with power of health care attorney, guardianship or advanced directives if applicable Do not bring money, jewelry or other valuables Hibiclens bathing instructions reviewed if applicable Notify surgeon of fever, illness, any changes or if you decide not to have surgery Diabetes Instructions (If applicable) Take diabetes medication as instructed You may have up to 4 ounces of apple juice 2 hours prior to arrival for surgery for low glucose documented in this encounter Plan of Treatment Upcoming Encounters Date Type Department Care Team (Late st Contact Info) Description 07/17/2024 12:30 PM EST Clinical Support [facility] [address] [facility] [place] [id number] 07/17/2024 1:30 PM EST Appointment [facility] [address] [place] [address] 07/20/2024 2:50 PM EST Office Visit [facility] [address] [facility] [place] [address] Divine Carpenter MD [address] [facility] [address] [place] [address] documented as of this encounter Procedures Procedure Name Priority Date/Time Associated Diagnosis Comments LARYNGOSCOPY, FLEXIBLE, WITH LESION DESTRUCTION USING LASER 02/19/2022 9:40 AM EDT Dysphagia documented in this encounter Visit Diagnoses Not on filedocumented in this encounter Administered Medications Inactive Administered Medications - up to 3 most recent administrations Medication Order MAR Action Action Date Dose Rate Site fentaNYL (Sublimaze) injection 25 mcg 25 mcg, Intravenous, Every 5 min PRN, 2 doses, Starting on Nenita 02/19/22 at 1036, Until Nenita 02/19/22 at 1401, Routine, Recovery (Phase I only), pain score of 3-4 out of 10 HYDROcodone-acetaminophen ([place]) 5-325 MG per tablet 1 tablet 1 tablet, Oral, Once as needed, 1 dose, Starting on Nenita 02/19/22 at 1036, Until Nenita 02/19/22 at 1401, Routine, Recovery (Phase I only), pain score of 3-5 out of 10 HYDROcodone-acetaminophen ([place]) 5-325 MG per tablet 2 tablet 2 tablet, Oral, Once as needed, 1 dose, Starting on Nenita 02/19/22 at 1036, Until Nenita 02/19/22 at 1401, Routine, Recovery (Phase I only), pain score of 6-8 out of 10 ondansetron (Zofran) injection 4 mg 4 mg, Intravenous, Once as needed, 1 dose, Starting on Nenita 02/19/22 at 1036, Until Nenita 02/19/22 at 1401, Routine, Recovery (Phase I only), nausea, vomiting promethazine (Phenergan) injection 6.25 mg 6.25 mg, Intravenous, Every 10 min PRN, 2 doses, Starting on Nenita 02/19/22 at 1036, Until Nenita 02/19/22 at 1401, Routine, Recovery (Phase I only), nausea, vomiting sodium chloride 0.9 % flush 10 mL 10 mL, Intravenous, Every 12 hours, First dose on Nenita 02/19/22 at 0845, Until Discontinued, Routine, Holding - Preprocedure sodium chloride 0.9 % flush 10 mL 10 mL, Intravenous, As needed, Starting on Nenita 02/19/22 at 0824, Until Nenita 02/19/22 at 1401, Routine, Holding - Preprocedure, line care documented in this encounter Active and Recently Administered Medications Times are shown in EDT. Scheduled Medication Order 02/17/2022 02/18/2022 02/19/2022 lactated Ringer's infusion (COMPLETED) 100 mL/hr, Intravenous, Once, 1 dose, On Nenita 02/19/22 at 0845, Routine 0952 (New Bag - Prov ider: Shaun Tapia CRNA, PASQUALE)1041 (Anesthesia Volume Adjustment - Provider: Shaun Tapia CRNA, PASQUALE) lactated Ringer's infusion 20 mL/hr, Intravenous, Once, 1 dose, On Nenita 02/19/22 at 1100, Routine 1100 (Canceled Entry - Provider: Automatic Discharge Provider - Comment: Automatically canceled at discontinue of medication order) sodium chloride 0.9 % flush 10 mL(Linked Group 1) 10 mL, Intravenous, Every 12 hours, First dose on Nenita 02/19/22 at 0845, Until Discontinued, Routine, Holding - Preprocedure 0845 (Canceled Entry - Provider: Automatic Discharge Provider - Comment: Automatically canceled at discontinue of medication order) PRN Medication Order 02/17/2022 02/18/2022 02/19/2022 fentaNYL (Sublimaze) injection 25 mcg 25 mcg, Intravenous, Every 5 min PRN, 2 doses, Starting on Nenita 02/19/22 at 1036, Until Nenita 02/19/22 at 1401, Routine, Recovery (Phase I only), pain score of 3-4 out of 10 HYDROcodone-acetaminophen ([place]) 5-325 MG per tablet 1 tablet(Linked Group 2) 1 tablet, Oral, Once as needed, 1 dose, Starting on Nenita 02/19/22 at 1036, Until Nenita 02/19/22 at 1401, Routine, Recovery (Phase I only), pain score of 3-5 out of 10 HYDROcodone-acetaminophen ([place]umping [place]) 5-325 MG per tablet 2 tablet(Linked Group 2) 2 tablet, Oral, Once as needed, 1 dose, Starting on Nenita 02/19/22 at 1036, Until Nenita 02/19/22 at 1401, Routine, Recovery (Phase I only), pain score of 6-8 out of 10 ondansetron (Zofran) injection 4 mg 4 mg, Intravenous, Once as needed, 1 dose, Starting on Nenita 02/19/22 at 1036, Until Nenita 02/19/22 at 1401, Routine, Recovery (Phase I only), nausea, vomiting oxymetazoline (Afrin) 0.05 % nasal spray (CANCELED) As needed, Starting on Nenita 02/19/22 at 1024, Until Nenita 02/19/22 at 1035, Routine, Intraprocedure 1024 (Given - Provid er: Doug Hameed MD - Comment: On cottonoids on field) promethazine (Phenergan) injection 6.25 mg 6.25 mg, Intravenous, Every 10 min PRN, 2 doses, Starting on Nenita 02/19/22 at 1036, Until Nenita 02/19/22 at 1401, Routine, Recovery (Phase I only), nausea, vomiting sodium chloride 0.9 % flush 10 mL(Linked Group 1) 10 mL, Intravenous, As needed, Starting on Nenita 02/19/22 at 0824, Until Nenita 02/19/22 at 1401, Routine, Holding - Preprocedure, line care triamcinolone acetonide (Kenalog-40) injection (CANCELED) As needed, Starting on Nenita 02/19/22 at 1025, Until Nenita 02/19/22 at 1035, Routine, Intraprocedure 1025 (Given - Provid er: Doug Hameed MD - Comment: On intraoperative field) Linked Groups Order Group 1: Insert peripheral IV (CANCELED) Once, On Nenita 02/19/22 at 0825, For 1 occurrence, Holding - Preprocedure And Saline lock IV (CANCELED) Once, On Nenita 02/19/22 at 0825, For 1 occurrence, Holding - Preprocedure And sodium chloride 0.9 % flush 10 mLJump to med 10 mL, Intravenous, Every 12 hours, First dose on Nenita 02/19/22 at 0845, Until Discontinued, Routine, Holding - Preprocedure And sodium chloride 0.9 % flush 10 mLJump to med 10 mL, Intravenous, As needed, Starting on Nenita 02/19/22 at 0824, Until Nenita 02/19/22 at 1401, Routine, Holding - Preprocedure, line care Group 2: HYDROcodone-acetaminophen ([place]) 5-325 MG per tablet 1 tabletJump to med 1 tablet, Oral, Once as needed, 1 dose, Starting on Nenita 02/19/22 at 1036, Until Nenita 02/19/22 at 1401, Routine, Recovery (Phase I only), pain score of 3-5 out of 10 Or HYDROcodone-acetaminophen ([place]) 5-325 MG per tablet 2 tabletJump to med 2 tablet, Oral, Once as needed, 1 dose, Starting on Nenita 02/19/22 at 1036, Until Nenita 02/19/22 at 1401, Routine, Recovery (Phase I only), pain score of 6-8 out of 10 documented in this encounter Additional Health Concerns Assessment Noted Time A fall risk assessment has been complete d for the patient 12/08/2021 1:20 PM EDT documented as of this encounter Care Teams Sensitometrist Relationship Specialty Start Date End Date Michele Wright MD [address] [place] [address] PCP - General 10/11/20 Edgar Szymanski MD [address] [facility] [address] [place] [address] Radiation Oncologist Radiation Therapy 03/14/20 4 Shun Hurst MD [address] [place] [address] Surgeon Neurosurgery 02/24/21 Divine Carpenter MD [address] [place] [address] Medical Oncologist Medical Oncology 06/13/21 documented as of this encounter
--- OUTSIDE RECORDS SUMMARY | 2024-05-03 13:39 | XMS_ITS | Encounter Summary ---
Author Organization Healthcare Address [address] [id number] Care Team Providers Care Supervisor Elementary Education Name Role Phone Michele Wright MD Primary Care Provider + [phone] Edgar Szymanski MD Unavailable [phone] Shun Hurst MD Unavailable [phone] Divine Carpenter MD Unavailable [phone] Reason for Visit * Auth/Cert (Routine) Specialty Diagnoses / Procedures Referred By Contwesley t Referred To Contact Diagnoses Dysphagia Dysphagia [R13.10] Procedures NC LARYNGOSCOPY,DIRECT,SCOPE,IN J CORDS NC ESOPHAGOSCOPY FLEXIBLE TRANSORAL DIAGNOSTIC NC ESOPHAGOSCOPY FLEXIBLE TRANSORAL WITH BIOPSY NC ESOPHAGOSCOPY FLEX BALLOON DILAT <30 MM DIAM NC ESOPHAGOSCOPY DILATE ESOPHAGUS BALLOON 30 MM LARYNGOSCOPY,FLEXIBLE ESOPHAGOSCOPY,WITH LESION DESTRUCTION USING CO2 LASER / ESOPHAGEAL BALLOON DILATION - POSS SUPER DILATION / VOCAL FOLD INJECTION OF STEROIDS Gil Hernandez MD [address] [facility] [address] [place] [address] Phone: tel: fax: [facility] [address] [place] [address] Phone: tel: Referral ID Status Reason Start Date Expiration Date Visits Re quested Visits Authorized [id number] 1 1 Encounter Details Date Type Department Care Team (Late st Contact Info) Description 02/19/2022 9:45 AM EDT - 02/19/2022 11:05 AM EDT Surgery [facility] [address] [place] [address] Gil Hernandez MD [address] [place] [phone] LARYNGOSCOPY,FLEXIBLE ESOPHAGOSCOPY,WITH LESION DESTRUCTION USING CO2 LASER / ESOPHAGEAL BALLOON DILATION - POSS SUPER DILATION / VOCAL FOLD INJECTION OF STEROIDS Surgery Details Date/Time Status Location OR Service Patient Class Case Class Case Type Trauma Case? 02/19/2022 9:45 AM Posted [facility] [address] Outpatient Surgery E-Electiv e Panel 1 Procedure LRB Anes Op Region Wound Class Comments LARYNGOSCOPY,FLEXIBLE ESOPHAGOSCOPY,WITH LESION DESTRUCTION USING CO2 LASER / ESOPHAGEAL BALLOON DILATION - POSS SUPER DILATION / VOCAL FOLD INJECTION OF STEROIDS N/A Class II/ Clean Con taminated Surgeon Surgeon Role Service Panel Gil Hernandez MD Primary ENT 1 Doug Hameed MD Resident - Assisting ENT 1 documented in this encounter Social [...] * Controlled Substance Discharge Sheet - KEVAN ([place]) ([place]) * Post-Anesthesia and Postoperative Instructions ([place]) ([place]) * Direct Laryngoscopy with Biopsy - Head and Neck Cancer ([place]) ([place]) documented in this encounter Medications at Time [...] AM EDT Operative Note Date: 02/19/22 Location: [facility] OR Name: Anibal Barreto, : 1965, Diagnoses: Pre-op Diagnosis Dysphagia Post-op Diagnosis Dysphagia Procedure(s): Direct laryngoscopy Flexible esophagoscopy with super dilation Injection of steroid Attending Surgeon(s): * Gil Hernandez - Primary Concrete Bucket Loader(s): * Doug Hameed MD - Resident - [...] the operating team and time-out performed. 5-0 INJECTION SPECIALIST placed in the stoma. A dedo laryngoscope [...] scope and dilated to 20mm. Then 30 Nigerian bougie passed alongside to dilate in addition. Total dilation size of 90 samoan (30mm). Steroid was then injected into the [...] still being treated with Dr. Carpenter at [facility] with chemotherapy for maintenance. He denies any [...] ESOPHAGEAL DILATION x2 ESOPHAGOGASTRODUODENOSCOPY N/A Esophagogastroduodenoscopy from [facility] FEEDING TUBE PLACEMENT N/A Now removed LARYNGOSCOPY N/A Laryngoscopy from [facility] LUNG SURGERY OTHER SURGICAL HISTORY N/A Neck dissection modified radical from [facility] OTHER SURGICAL HISTORY N/A Percutaneous endoscopic gastrostomy tube removal from [facility] OTHER SURGICAL HISTORY N/A Laryngectomy from [facility] OTHER SURGICAL HISTORY N/A Trachectomy from [facility] PARTIAL LARYNGECTOMY TRACHEOSTOMY TUBE PLACEMENT Allergies Allergen [...] Anesthesia Evaluation Physical Exam Anesthesia Plan Kristin Baeaz RN * Preprocedure Instructions - Kristin Baeza [...] Preoperative Instructions You will be called the day before surgery with your arrival time [...] card, photo ID, along with power of immigration attorney, guardianship or advanced directives if applicable [...] [facility] Head, Neck & Respiratory [address] [facility] [address] [place] [address] 07/17/2024 1:30 PM EST Appointment [facility] Radiology [address] [place] [address] 07/20/2024 2:50 PM EST Office Visit [facility] Head, Neck & Respiratory [address] [facility] [address] [place] [address] Divine Carpenter MD [address] [facility] [address] [place] [address] documented as of this encounter Procedures Procedure Name Priority Date/Time Associated Diagnosis Comments LARYNGOSCOPY, FLEXIBLE, WITH LESION DESTRUCTION USING LASER 02/19/2022 9:40 AM EDT Dysphagia documented in this encounter Visit Diagnoses Diagnosis Dysphagia documented in this encounter Administered Medications Inactive Administered Medications - up to 3 most recent administrations Medication Order MAR Action Action Date Dose Rate Site fentaNYL (Sublimaze) injection 25 mcg 25 mcg, Intravenous, Every 5 min PRN, 2 doses, Starting on Nenita 02/19/22 at 1036, Until Nenita 02/19/22 at 1401, Routine, Recovery (Phase I only), pain score of 3-4 out of 10 HYDROcodone-acetaminophen (Jack) 5-325 MG per tablet 1 tablet 1 tablet, Oral, Once as needed, 1 dose, Starting on Nenita 02/19/22 at 1036, Until Nenita 02/19/22 at 1401, Routine, Recovery (Phase I only), pain score of 3-5 out of 10 HYDROcodone-acetaminophen (Jack) 5-325 MG per tablet 2 tablet 2 tablet, Oral, Once as needed, 1 dose, Starting on Wed02/19/22 at 1036, Until Nenita 02/19/22 at 1401, Routine, Recovery (Phase I only), pain score of 6-8 out of 10 ondansetron (Zofran) injection 4 mg 4 mg, Intravenous, Once as needed, 1 dose, Starting on Wed02/19/22 at 1036, Until Nenita 02/19/22 at 1401, Routine, Recovery (Phase I only), nausea, vomiting oxymetazoline (Afrin) 0.05 % nasal spray As needed, Starting on Wed02/19/22 at 1024, Until Nenita 02/19/22 at 1035, Routine, Intraprocedure Given 02/19/2022 10:24 AM EDT 30 mL promethazine (Phenergan) injection 6.25 mg 6.25 mg, Intravenous, Every 10 min PRN, 2 doses, Starting on Wed02/19/22 at 1036, Until Nenita 02/19/22 at 1401, Routine, Recovery (Phase I only), nausea, vomiting sodium chloride 0.9 % flush 10 mL 10 mL, Intravenous, Every 12 hours, First dose on Nenita 02/19/22 at 0845, Until Discontinued, Routine, Holding - Preprocedure sodium chloride 0.9 % flush 10 mL 10 mL, Intravenous, As needed, Starting on Wed02/19/22 at 0824, Until Nenita 02/19/22 at 1401, Routine, Holding - Preprocedure, line care triamcinolone acetonide (Kenalog-40) injection As needed, Starting on Nenita 02/19/22 at 1025, Until Nenita 02/19/22 at 1035, Routine, Intraprocedure Given 02/19/2022 10:25 AM EDT 40 mg documented in this encounter Active and Recently [...] score of 3-4 out of 10 HYDROcodone-acetaminophen (Jack) 5-325 MG per tablet 1 tablet(Linked Group 2) 1 tablet, Oral, Once as needed, 1 dose, Starting on Nenita 02/19/22 at 1036, Until Nenita 02/19/22 at 1401, Routine, Recovery (Phase I only), pain score of 3-5 out of 10 HYDROcodone-acetaminophen (Jack) 5-325 MG per tablet 2 tablet(Linked Group [...] nasal spray (CANCELED) As needed, Starting on Wed02/19/22 at 1024, Until Nenita 02/19/22 at 1035, [...] 10 mL, Intravenous, As needed, Starting on Wed02/19/22 at 0824, Until Nenita 02/19/22 at 1401, Routine, Holding - Preprocedure, line care triamcinolone acetonide (Kenalog-40) injection (CANCELED) As needed, Starting on Wed02/19/22 at 1025, Until Nenita 02/19/22 at 1035, Routine, Intraprocedure 1025 (Given - Provid er: Doug Hameed MD - Comment: On intraoperative field) Linked Groups Order Group 1: Insert peripheral IV (CANCELED) Once, On Wed02/19/22 at 0825, For 1 occurrence, Holding - Preprocedure And Saline lock IV (CANCELED) Once, On Nenita 02/19/22 at 0825, For 1 occurrence, Holding - Preprocedure And sodium chloride 0.9 % flush 10 mLJump to med 10 mL, Intravenous, Every 12 hours, First dose on Wed02/19/22 at 0845, Until Discontinued, Routine, Holding - Preprocedure And sodium chloride 0.9 % flush 10 mLJump to med 10 mL, Intravenous, As needed, Starting on Nenita 02/19/22 at 0824, Until Nenita 02/19/22 at 1401, Routine, Holding - Preprocedure, line care Group 2: HYDROcodone-acetaminophen (Jack) 5-325 MG per tablet 1 tabletJump to med 1 tablet, Oral, Once as needed, 1 dose, Starting on Nenita 02/19/22 at 1036, Until Nenita 02/19/22 at 1401, Routine, Recovery (Phase I only), pain score of 3-5 out of 10 Or HYDROcodone-acetaminophen (Jack) 5-325 MG per tablet 2 tabletJump to [...] as of this encounter Care Teams Supervisor Elementary Education Relationship Specialty Start Date End Date Michele Wright MD [address] [place] [address] PCP - General 10/11/20 Edgar Szymanski MD [address] [facility] [address] [place] [address] Radiation Oncologist Radiation Therapy 03/14/20 4 Shun Hurst MD [address] [place] [address] Surgeon Neurosurgery 02/24/21 Divine Carpenter MD [address] [facility] [address] [place] [address] Medical Oncologist Medical Oncology 06/13/21 documented as of this encounter
--- OUTSIDE RECORDS SUMMARY | 2024-05-03 13:40 | XMS_ITS | Encounter Summary ---
Author Organization [facility] Address [address] [place], [place] [address] Care Team Providers Care Quill Buncher And Sorter Name Role Phone Michele Wright MD Primary Care Provider + [phone] Edgar Szymanski MD Unavailable [phone] Shun Hurst MD Unavailable [phone] Divine Carpenter MD Unavailable [phone] Reason for Visit * Reason Comments Med Refill Encounter Details Date Type Department Care Team (Late st Contact Info) Description 11/04/2021 Refill [facility] Infusion [address] [place] [address] Letty Prakash PA 800 [facility] [address] [place] [address] Social History Tobacco Use Types Packs/Day Years [...] Neck & Respiratory [address] [facility], [address]nd [place] [address] 07/17/2024 1:30 PM EST Appointment [facility] Radiology [address] [place] [address] 07/20/2024 2:50 PM EST Office Visit Pav CC Head, Neck & Respiratory [address] [facility], [address]nd [place] [address] Divine Carpenter MD [address] [facility] Diane Zuniga [facility] [address] [place] [address] documented as of this encounter Visit Diagnoses Not on filedocumented in this encounter Additional Health Concerns Assessment Noted Time A fall risk assessment has been complete d for the patient 08/18/2021 9:25 AM EDT documented as of this encounter Care Teams Quill Buncher And Sorter Relationship Specialty Start Date End Date Michele Wright MD [address] [place] [address] PCP - General 10/11/20 Edgar Szymanski MD [address] [facility] [address] [place] [address] Radiation Oncologist Radiation Therapy 03/14/20 4 Shun Hurst MD [address] [facility] [address] [place] [address] Surgeon Neurosurgery 02/24/21 Divine Carpenter MD [address] [facility] Diane Zuniga [facility] [address] [place] [address] Medical Oncologist Medical Oncology 06/13/21 documented as of this encounter
--- OUTSIDE RECORDS SUMMARY | 2024-05-03 13:40 | XMS_ITS | Encounter Summary ---
Author Organization [facility] Address [address] [place], [place] [address] Care Team Providers Care Lead Game Designer Name Role Phone Michele Wright MD Primary Care Provider + [phone] Edgar Szymanski MD Unavailable [phone] Shun Hurst MD Unavailable [phone] Divine Carpenter MD Unavailable [phone] Reason for Visit * Reason Comments Med Refill Encounter Details Date Type Department Care Team (Late st Contact Info) Description 09/10/2021 Refill [facility] Infusion [address] [place] [address] Letty Prakash PA 800 [facility] [address] [place] [address] Social History Tobacco Use Types Packs/Day Years [...] Exposure Response Date Recorded In the last month, have you been in contact with someone who was confirmed or suspected to have Coronavirus / COVID-19? No / Unsure 08/18/2021 9:09 AM EDT documented as of this encounter Plan of Treatment Upcoming Encounters Date Type Department Care Team (Late st Contact Info) Description 07/17/2024 12:30 PM EST Clinical Support Pav CC Head, Neck & Respiratory 800 [facility], 2nd [place] [address] 07/17/2024 1:30 PM EST Appointment [facility] Radiology [address] [place] [address] 07/20/2024 2:50 PM EST Office Visit Pav CC Head, Neck & Respiratory [address] [facility], [address]nd [place] [address] Divine Carpenter MD 800 [facility] [address] [place] [address] documented as of this encounter Visit Diagnoses Not on filedocumented in this encounter Additional Health Concerns Assessment Noted Time A fall risk assessment has been complete d for the patient 08/18/2021 9:25 AM EDT documented as of this encounter Care Teams Lead Game Designer Relationship Specialty Start Date End Date Michele Wright MD [address] [place] [address] PCP - General 10/11/20 Edgar Szymanski MD [address] [facility] [address] [place] [address] Radiation Oncologist Radiation Therapy 03/14/20 4 Shun Hurst MD [address] [facility] [address] [place] [address] Surgeon Neurosurgery 02/24/21 Divine Carpenter MD 800 [facility] Diane Rosasson [facility] [address] [place] [address] Medical Oncologist Medical Oncology 06/13/21 documented as of this encounter
--- OUTSIDE RECORDS SUMMARY | 2024-05-03 13:40 | XMS_ITS | Encounter Summary ---
Author Organization Healthcare Address [address] [place] [address] Care Team Providers Care Quantitative Developer Name Role Phone Michele Wright MD Primary Care Provider + [phone] Edgar Szymanski MD Unavailable [phone] Shun Hurst MD Unavailable [phone] Divine Carpenter MD Unavailable [phone] Encounter Details Date Type Department Care Team (Latest Contact Info) Description 08/01/2021 3:28 PM EST - 08/01/2021 11:59 PM EST Hospital Encounter [facility] H Infusion [address] [place] [address] Cancer of larynx (CMS/HCC) Discharge Disposition: Home or Self Care Social History Tobacco Use Types Packs/Day Years Used Date Smoking Tobacco: Former Cigarettes Q uit: 2000 Smokeless Tobacco: Never Alcohol Use Standard Drinks/Week Comments Not Currently 0 (1 standard drink = 0.6 oz pure alcohol) Alcoholic Drinks/day: Quit consuming alcohol in remote past PHQ-2 Answer Date Recorded Patient Health Questionnaire-2 Score 0 07/28/2021 Sex and Gender Information Value Date Recorded [...] have Coronavirus / COVID-19? No / Unsure 08/01/2021 3:27 PM EST documented as of this encounter Last Filed Vital Signs Vital Sign Reading Time Taken Comments Blood Pressure 146/83 08/01/2021 3:29 PM EST Pulse 66 08/01/2021 3:29 PM EST Temperature 36.8 ??C (98.3 ??F) 08/01/2021 3:29 PM ES T Respiratory Rate 18 08/01/2021 3:29 PM EST Oxygen Saturation 97% 08/01/2021 3:29 PM EST Inhaled Oxygen Concentration - - Weight 88.5 kg (195 lb 1.7 oz) 08/01/2021 3:29 P M EST Height 177.8 cm (5' 10 ) 08/01/2021 3:29 PM EST Body Mass Index 27.99 08/01/2021 3:29 PM EST documented in this encounter Medications at Time of Discharge albuterol 108 (90 Base) MCG/ACT inhaler Inhale 2 puffs every 4 (four) hours if needed for wheezing or shortness of breath. 18 g 11 06/16/2021 2 ALPRAZolam (Xanax) 1 MG tablet Take 1 tablet (1 mg) by mouth 2 (two) times a day. 3 dexamethasone (Decadron) 6 MG tablet Take 1 tablet (6 mg total) by mouth 1 (one) time each day for 6 doses. 6 tablet 06/17/2021 3 diphenoxylate-at ropine (Lomotil) 2.5-0.025 MG tablet Take 1 tablet by mouth 4 (four) times a day if needed for diarrhea. 2 gabapentin (Neurontin) 600 MG tablet Take 1 tablet (600 mg total) by mouth 4 (four) times a day. 120 tablet 1 04/21/2021 3 hydroCHLOROthiaz anitra (HYDRODiuril) 25 MG tablet Take 1 tablet (25 mg total) by mouth 1 (one) time each day. 30 tablet 11 06/17/2021 4 levothyroxine (Synthroid, Levoxyl) 150 MCG tablet Take 1 tablet (150 mcg) by mouth 1 (one) time each day before breakfast. 3 lisinopril 5 MG tablet Take 1 tablet (5 mg total) by mouth 1 (one) time each day. 30 tablet 11 06/30/2021 4 loperamide (Imodium) 2 MG capsule Take 2 mg by mouth 4 (four) times a day if needed for diarrhea. 2 omeprazole (PriLOSEC) [address] capsule TAKE 1 CAPSULE BY MOUTH EVERY DAY 90 capsule 2 04/29/2021 2 ondansetron (Zofran) 8 MG tabletIndication s:Cancer of larynx (CMS/HCC) Take 1 tablet (8 mg total) by mouth 2 (two) times a day. Starting day after chemo for 3 days. 30 tablet 5 02/17/2021 2 oxyCODONE (Roxicodone) 30 MG immediate release tablet Take 1 tablet (30 mg) by mouth every 3 (three) hours if needed for severe pain. 3 prochlorperazine (Compazine) 10 MG tabletIndication s:Cancer of larynx (CMS/HCC) Take 1 tablet (10 mg total) by mouth every 6 (six) hours if needed for nausea or vomiting. 30 tablet 5 02/17/2021 4 tamsulosin (Flomax) 0.4 MG 24 hr capsule TAKE 1 CAPSULE BY MOUTH EVERY NIGHT TO HELP WITH URINE FLOW 30 capsule 07/17/2021 2 documented as of this encounter Miscellaneous Notes * Addendum Note - Shemar Hodges - 08/01/2021 4:00 PM ESTEncounter addended by: Shemar Hodges on: 08/04/2021 3:22 PM Actions taken: Charge Capture section accepted documented in this encounter Plan of Treatment Upcoming Encounters Date Type Department Care Team (Late st Contact Info) Description 07/17/2024 12:30 PM EST Clinical Support Pav CC Head, Neck & Respiratory [address] [place] [address] 07/17/2024 1:30 PM EST Appointment [facility] G Radiology [address] [place] [address] 07/20/2024 2:50 PM EST Office Visit Pav CC Head, Neck & Respiratory 800 [facility], [address]nd [place] [address] Divine Carpenter MD 800 [facility] [address] [place] [address] documented as of this encounter Visit Diagnoses Diagnosis 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, unspecified site documented in this encounter Additional Health Concerns Assessment Noted Time A fall risk assessment has been complete d for the patient 07/28/2021 8:32 AM EST documented as of this encounter Care Teams Quantitative Developer Relationship Specialty Start Date End Date Michele Wright MD [address] [place] [address] PCP - General 10/11/20 Edgar Szymanski MD 800 [facility] [address] [place] [address] Radiation Oncologist Radiation Therapy 03/14/20 4 Shun Hurst MD [address] [place] [address] Surgeon Neurosurgery 02/24/21 Divine Carpenter MD 800 [facility] Diane Zuniga [facility] [address] [place] [address] Medical Oncologist Medical Oncology 06/13/21 documented as of this encounter
--- OUTSIDE RECORDS SUMMARY | 2024-05-03 13:40 | XMS_ITS | Encounter Summary ---
Author Organization Healthcare Address [address] [place] [address] Care Team Providers Care Squirt Machine Operator Name Role Phone Michele Wright MD Primary Care Provider + [phone] Edgar Szymanski MD Unavailable [phone] Shun Hurst MD Unavailable [phone] Divine Carpenter MD Unavailable [phone] Encounter Details Date Type Department Care Team (Late st Contact Info) Description 09/17/2021 2:00 PM EDT Office Visit PAV CC Voice [address], [address] [place] [address] Vicky Ariza Aphonia (Primary Dx) Social History Tobacco Use [...] suspected to have Coronavirus/COVID-19? No / Unsure 09/17/2021 1:53 PM EDT documented as of this encounter Miscellaneous Notes * Progress Notes - Vicky Ariza - 09/17/2021 2:00 PM EDT [facility] Voice [facility] Swallow [facility] Head, Neck and Respiratory Clinic Tracheoesophageal Puncture Assessment/Treatment ?? Service Date: 09/17/2021 Referring Provider: Dr. 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 His prosthesis was last changed on 03/03/2021. ?? Barriers to Progress: Persistent disease, persistent [...] ? Placement History: Date of last change: 03/03/2021 Previous Prosthesis Type/Size: 17 Fr, 10 mm, [...] Type/Size: 10 mm, 17 Fr Lot number: [id number] Dilation: 18 Fr [facility] dilator Insertion Method: [...] Upcoming Encounters Date Type Department Care Team ([facility] st Contact Info) Description 07/17/2024 12:30 PM EST Clinical Support Pav CC Head, Neck & Respiratory [address] [place] [address] 07/17/2024 1:30 PM EST Appointment P[facility] G Radiology [address] [place] [address] 07/20/2024 2:50 PM EST Office Visit Pav CC Head, Neck & Respiratory [address], [address] [place] [address] Divine Carpenter MD [address] [facility] [address] [place] [address] documented as of this encounter Visit Diagnoses Diagnosis Aphonia- Primary documented in this encounter Additional Health Concerns Assessment Noted Time A fall risk assessment has been complete d for the patient 08/18/2021 9:25 AM EDT documented as of this encounter Care Teams Squirt Machine Operator Relationship Specialty Start Date End Date Michele Wright MD [address] [place] [address] PCP - General 10/11/20 Edgar Szymanski MD [address] [place] [address] Radiation Oncologist Radiation Therapy 03/14/20 4 Shun Hurst MD [address] [facility] [address] [place] [address] Surgeon Neurosurgery 02/24/21 Divine Carpenter MD [address] [facility] [address] [place] [address] Medical Oncologist Medical Oncology 06/13/21 documented as of this encounter
--- OUTSIDE RECORDS SUMMARY | 2024-05-03 13:40 | XMS_ITS | Encounter Summary ---
Author Organization Healthcare Address [address] [place], [place] [id number] Care Team Providers Care Utility Person Name Role Phone Michele Wright MD Primary Care Provider + [phone] Edgar Szymanski MD Unavailable [phone] Shun Hurst MD Unavailable [phone] Divine Carpenter MD Unavailable [phone] Encounter Details Date Type Department Care Team (Late st Contact Info) Description 10/30/2021 Telephone Pav CC Head, Neck & Respiratory 800 [facility], 2nd [place] [address] Mary Correia MD [address] [place] [address] Social History Tobacco Use Types Packs/Day Years [...] encounter Miscellaneous Notes * Telephone Encounter - Faviola Kelly Ugo - 10/30/2021 4:55 PM EDT Called pt to r/s missed appts. No answer unable to LVM. documented in this encounter Plan of Treatment Upcoming Encounters Date Type Department Care Team (Late st Contact Info) Description 07/17/2024 12:30 PM EST Clinical Support Pav CC Head, Neck & Respiratory 800 [facility], 2nd [place] [address] 07/17/2024 1:30 PM EST Appointment PAV G Radiology [address] [place] [address] 07/20/2024 2:50 PM EST Office Visit Pav CC Head, Neck & Respiratory 800 [facility], 2nd [place] [address] Divine Carpenter MD 800 [facility] [address] [place] [address] documented as of this encounter Visit Diagnoses Not on filedocumented in this encounter Additional Health Concerns Assessment Noted Time A fall risk assessment has been complete d for the patient 08/18/2021 9:25 AM EDT documented as of this encounter Care Teams Utility Person Relationship Specialty Start Date End Date Michele Wright MD [address] [place] [address] PCP - General 10/11/20 Edgar Szymanski MD 800 [facility] [address] [place] [phone] Radiation Oncologist Radiation Therapy 03/14/20 4 Shun Hurst MD [address] [facility] [address] [place] [address] Surgeon Neurosurgery 02/24/21 Divine Carpenter MD 800 [facility] [address] [place] [address] Medical Oncologist Medical Oncology 06/13/21 documented as of this encounter
--- OUTSIDE RECORDS SUMMARY | 2024-05-03 13:40 | XMS_ITS | Encounter Summary ---
Author Organization [facility] Address [address] [place], [place] [address] Care Team Providers Care Marksmanship Instructor Name Role Phone Michele Wright MD Primary Care Provider + [phone] Edgar Szymanski MD Unavailable [phone] Shun Hurst MD Unavailable [phone] Divine Carpenter MD Unavailable [phone] Reason for Visit * Reason Comments Med Refill Encounter Details Date Type Department Care Team (Late st Contact Info) Description 10/07/2021 Refill PAV H Infusion 800 [place] [address] Letty Prakash PA 800 [facility] [place] [facility] [address] [place] [address] Social History Tobacco Use Types Packs/Day Years [...] Pav CC Head, Neck & Respiratory 800 [facility], 2nd [place] [address] 07/17/2024 1:30 PM EST Appointment PAV G Radiology [address] [place] [address] 07/20/2024 2:50 PM EST Office Visit Pav CC Head, Neck & Respiratory 800 [facility], 2nd [place] [address] Divine Carpenter MD [address] [facility] [address] [place] [address] documented as of this encounter Visit Diagnoses Not on filedocumented in this encounter Additional Health Concerns Assessment Noted Time A fall risk assessment has been complete d for the patient 08/18/2021 9:25 AM EDT documented as of this encounter Care Teams Marksmanship Instructor Relationship Specialty Start Date End Date Michele Wright MD [address] [place] [address] PCP - General 10/11/20 Edgar Szymanski MD 800 [facility] [address] [place] [address] Radiation Oncologist Radiation Therapy 03/14/20 4 Shun Hurst MD [address] [facility] [address] [place] [address] Surgeon Neurosurgery 02/24/21 Divine Carpenter MD 800 [facility] Diane [facility] [address] [place] [address] Medical Oncologist Medical Oncology 06/13/21 documented as of this encounter
--- OUTSIDE RECORDS SUMMARY | 2024-05-03 13:40 | XMS_ITS | Encounter Summary ---
Author Organization [facility] Address [address] [place], [place] [address] Care Team Providers Care Lead Software Engineer Name Role Phone Michele Wright MD Primary Care Provider + [phone] Edgar Szymanski MD Unavailable [phone] Shun Hurst MD Unavailable [phone] Divine Carpenter MD Unavailable [phone] Reason for Visit * Reason Onset Date Comments HCN - Patient Message 07/31/2021 Encounter Details Date Type Department Care Team (Late st Contact Info) Description 07/31/2021 Telephone Pav CC Head, Neck & Respiratory 800 [facility], 2nd [place] [address] Divine Carpenter MD 800 [facility] [address] [place] [address] HCN - Patient Message Social History Tobacco Use Types Packs/Day Years [...] encounter Miscellaneous Notes * Telephone Encounter - UrbinaLeeanna Sae - 07/31/2021 8:51 AM EST Patient Phone Message Dr Carpenter Reason for Call: PT dog jerk out the PT chemo line// PT went to ER // The first attempt to get the line started again didn't work// the second attempt did work// ER doctor instructed the PT to call Dr Carpenter let her know what happened PT said that ER Staff was Excellent [facility]! Best contact number and optimal time of day to reach caller: [phone] Note: Please do not reply to this message. Follow-up communication and further actions as a result of this message need to be communicated with the patient directly, if the patient is not active onMyChart. If the patient is active on MyChart, they will receive notification of the communication/outcome via No Paper [employer]. documented in this encounter Plan of Treatment Upcoming Encounters Date Type Department Care Team ([facility] st Contact Info) Description 07/17/2024 12:30 PM EST Clinical Support Pav CC Head, Neck & Respiratory 800 [facility], [address] [place] [address] 07/17/2024 1:30 PM EST Appointment PAV G Radiology [address] [place] [address] 07/20/2024 2:50 PM EST Office Visit Pav CC Head, Neck & Respiratory 800 [facility], 2nd [place] [address] Divine Carpenter MD 800 [facility] [address] [place] [address] documented as of this encounter Visit Diagnoses Not on filedocumented in this encounter Additional Health Concerns Assessment Noted Time A fall risk assessment has been complete d for the patient 07/28/2021 8:32 AM EST documented as of this encounter Care Teams Lead Software Engineer Relationship Specialty Start Date End Date Michele Wright MD [address] [place] [address] PCP - General 10/11/20 Edgar Szymanski MD 800 [facility] [address] [place] [address] Radiation Oncologist Radiation Therapy 03/14/20 4 Shun Hurst MD [address] [place] [address] Surgeon Neurosurgery 02/24/21 Divine Carpenter MD [address] [facility] [address] [place] [address] Medical Oncologist Medical Oncology 06/13/21 documented as of this encounter
--- OUTSIDE RECORDS SUMMARY | 2024-05-03 13:40 | XMS_ITS | Encounter Summary ---
Author Organization [facility] Address [address] [place] [address] Care Team Providers Care Lean Manufacturing Coordinator Name Role Phone Michele Wright MD Primary Care Provider + [phone] Edgar Szymanski MD Unavailable [phone] Shun Hurst MD Unavailable [phone] Divine Carpenter MD Unavailable [phone] Encounter Details Date Type Department Care Team (Latest Contact Info) Description 07/28/2021 8:45 AM EST Clinical Support Pav CC Head, Neck & Respiratory [address], [address] [place] [address] Research study patient; Cancer of larynx (CMS/HCC) Social History Tobacco [...] have Coronavirus / COVID-19? No / Unsure 07/28/2021 8:12 AM EST documented as of this encounter Plan of Treatment Upcoming Encounters Date Type Department Care Team (Late st Contact Info) Description 07/17/2024 12:30 PM EST Clinical Support Pav CC Head, Neck & Respiratory 800 [facility], 2nd [place] [address] 07/17/2024 1:30 PM EST Appointment PAV G Radiology [address] [place] [address] 07/20/2024 2:50 PM EST Office Visit Pav CC Head, Neck & Respiratory 800 [facility], [address]nd [place] [address] Divine Carpenter MD 800 [facility] [address] [place] [address] documented as of this encounter Procedures Procedure Name Priority Date/Time Associated Diagnosis Comments CBC WITH AUTO DIFFERENTIAL Routine 07/28/2021 9:24 AM EST Cancer of larynx (CMS/HCC) TSH Routine 07/28/2021 9:23 AM EST Cancer of larynx (CMS/HCC) MAGNESIUM, PLASMA STAT 07/28/2021 9:2 3 AM EST Cancer of larynx (CMS/HCC) COMPREHENSIVE METABOLIC PANEL, PLASMA Routine 07/28/2021 9:23 AM EST Cancer of larynx (CMS/HCC) documented in this encounter Results * (ABNORMAL) CBC and Differential (07/28/2021 9:24 AM EST) WBC Count 3.28(L) 3.70 - 10.30 10*3/uL LAB HEMATOLOGY METHOD 07/28/2021 9:35 AM EST [facility] RBC Count 3.07(L) 4.60 - 6.10 10*6/uL LAB HEMATOLOGY METHOD 07/28/2021 9:35 AM EST [facility] HGB 9.5(L) 13.7 - 17.5 g/dL LAB HEMATOLOGY METHOD 07/28/2021 9:35 AM EST [facility] HCT 29.7(L) 40.0 - 51.0 % LAB HEMATOLOGY METHOD 07/28/2021 9:35 AM EST [facility] Platelet Count 145(L) 155 - 369 10*3/uL LAB HEMATOLOGY METHOD 07/28/2021 9:35 AM EST [facility] MCV 97 79 - 98 fL LAB HEMATOLOGY METHOD 07/28/2021 9:35 AM EST [facility] MCH 30.9 26.0 - 32.0 pg LAB HEMATOLOGY METHOD 07/28/2021 9:35 AM EST [facility] MCHC 32.0 30.7 - 35.5 g/dL LAB HEMATOLOGY METHOD 07/28/2021 9:35 AM EST [facility] RDW 15.8(H) 11.5 - 14.5 % LAB HEMATOLOGY METHOD 07/28/2021 9:35 AM EST [facility] MPV 10.7 8.8 - 12.5 fL LAB HEMATOLOGY METHOD 07/28/2021 9:35 AM EST [facility] nRBC 0.0 <=0.0 per 100 WBCs LAB HEMATOLOGY METHOD 07/28/2021 9:35 AM [facility] Differential Type Automated LAB HEMATOLOGY METHOD 07/28/2021 9:35 AM EST [facility] Neutrophils % 71.0 % LAB HEMATOLOGY METHOD 07/28/2021 9:35 AM EST [facility] Lymphocytes % 14.0 % LAB HEMATOLOGY METHOD 07/28/2021 9:35 AM EST [facility] Monocytes % 14.0 % LAB HEMATOLOGY METHOD 07/28/2021 9:35 AM EST [facility] Eosinophils % 0.0 % LAB HEMATOLOGY METHOD 07/28/2021 9:35 AM EST [facility] Basophils % 1.0 % LAB HEMATOLOGY METHOD 07/28/2021 9:35 AM EST [facility] Immature Granulocytes % 0.0 % LAB HEMATOLOGY METHOD 07/28/2021 9:35 AM EST [facility] Neutrophils Absolute 2.32 1.60 - 6.10 10*3/uL LAB HEMATOLOGY METHOD 07/28/2021 9:35 AM EST [facility] Lymphocytes Absolute 0.47(L) 1.20 - 3.90 10*3/uL LAB HEMATOLOGY METHOD 07/28/2021 9:35 AM EST [facility] Monocytes Absolute 0.45 0.30 - 0.90 10*3/uL LAB HEMATOLOGY METHOD 07/28/2021 9:35 AM EST [facility] Eosinophils Absolute 0.01 0.00 - 0.50 10*3/uL LAB HEMATOLOGY METHOD 07/28/2021 9:35 AM EST [facility] Basophils Absolute 0.02 0.00 - 0.10 10*3/uL LAB HEMATOLOGY METHOD 07/28/2021 9:35 AM EST [facility] Immature Granulocytes Absolute 0.01 0.00 - 0.06 10*3/uL LAB HEMATOLOGY METHOD 07/28/2021 9:35 AM EST [facility] Blood Venous blood specimen / Unknown (Port) Long-term Catheter / Unknown 07/28/2021 9:24 AM EST 07/28/2021 9:26 AM EST Divine Carpenter MD LAB BLOOD ORDERABLES Final R esult Performing Organization Address City/[facility]/ZIP Co de Phone Number [facility] [address] [place] [address] * (ABNORMAL) Magnesium (07/28/2021 9:23 AM EST) Magnesium, Plasma 1.6(L) 1.9 - 2.4 mg/dL 07/28/2021 10:05 AM EST [facility] Blood Venous blood specimen / Unknown (Port) Long-term Catheter / Unknown 07/28/2021 9:23 AM EST 07/28/2021 9:26 AM EST Divine Carpenter MD LAB BLOOD ORDERABLES Final R esult Performing Organization Address City/[facility]/ZIP Co de Phone Number [facility] [address] [place] [address] * (ABNORMAL) Comprehensive Metabolic Panel, Plasma (07/28/2021 9:23 AM EST) Glucose, Plasma 106(H) 74 - 99 mg/dL 07/28/2021 10:05 AM EST [facility] BUN, Plasma 12 7 - 21 mg/dL 07/28/2021 10:05 AM EST [facility] Creatinine, Plasma 0.69(L) 0.80 - 1.30 mg/dL 07/28/2021 10:05 AM EST [facility] BUN/Creatinine Ratio 17 07/28/2021 10:05 AM EST [facility] Sodium, Plasma 141 136 - 145 mmol/L 07/28/2021 10:05 AM [facility] Potassium, Plasma 3.8 3.7 - 4.8 mmol/L 07/28/2021 10:05 AM [facility] Comment:Reference range for Serum potassium is 0.2 to 0.5 mmol/L higher than Plasma range. Chloride, Plasma 101 97 - 107 mmol/L 07/28/2021 10:05 AM [facility] CO2, Plasma 32(H) 22 - 29 mmol/L 07/28/2021 10:05 AM [facility] Anion Gap 8 6 - 16 mmol/L 07/28/2021 10:05 AM [facility] Total Calcium, Plasma 9.1 8.9 - 10.2 mg/dL 07/28/2021 10:05 AM [facility] Total Protein 6.5 6.3 - 7.9 g/dL 07/28/2021 10:05 AM [facility] Albumin, Plasma 3.7 3.5 - 5.2 g/dL 07/28/2021 10:05 AM [facility] AST, Plasma 15 12 - 40 U/L 07/28/2021 10:05 AM [facility] ALT, Plasma 9(L) 11 - 41 U/L 07/28/2021 10:05 AM [facility] Alkaline Phosphatase, Plasma 89 40 - 115 U/L 07/28/2021 10:05 AM [facility] Total Bilirubin, Plasma 0.4 0.2 - 1.1 mg/dL 07/28/2021 10:05 AM [facility] eGFR >60 >60 mL/min/1.7 3m*2 07/28/2021 10:05 AM [facility] Comment:eGFR = estimated GFR ; eGFR units = mL/min/1.73 sq meters Chronic Kidney Disease is considered if eGFR <60 mL/min/1.73 sq meters Kidney failure is considered if eGFR is <15 mL/min/1.73 sq meters. eGFR assumes steady state plasma creatinine concentration; not applicable if renal function is rapidly changing or patient is on dialysis. eGFR, if AFR/AM >60 >60 mL/min/1.7 3m*2 07/28/2021 10:05 AM [facility] Comment:eGFR = estimated GFR ; eGFR units = mL/min/1.73 sq meters Chronic Kidney Disease is considered if eGFR <60 mL/min/1.73 sq meters Kidney failure is considered if eGFR is <15 mL/min/1.73 sq meters. eGFR assumes steady state plasma creatinine concentration; not applicable if renal function is rapidly changing or patient is on dialysis. Blood Venous blood specimen / Unknown (Port) Long-term Catheter / Unknown 07/28/2021 9:23 AM EST 07/28/2021 9:26 AM EST Divine Carpenter MD LAB BLOOD ORDERABLES Final R esult Performing Organization Address City/[facility]/ZIP Co de Phone Number [facility] [address] [place] [address] * Thyroid Stimulating Hormone, Plasma (07/28/2021 9:23 AM EST) Thyroid Stimulating Hormone, Plasma 1.11 0.40 - 4.20 uIU/mL 07/28/2021 10:05 AM EST [facility] Blood Venous blood specimen / Unknown (Port) Long-term Catheter / Unknown 07/28/2021 9:23 AM EST 07/28/2021 9:26 AM EST Divine Carpenter MD LAB BLOOD ORDERABLES Final R esult [facility] [address] [place] [address] documented in this encounter Visit Diagnoses Diagnosis Research study patient 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 [address] [place] [address] Surgeon Neurosurgery 02/24/21 Divine Carpenter MD 800 [facility] [address] [place] [address] Medical Oncologist Medical Oncology 06/13/21 documented as of this encounter
--- OUTSIDE RECORDS SUMMARY | 2024-05-03 13:40 | XMS_ITS | Encounter Summary ---
Author Organization [facility] Address [address] [place] [address] Care Team Providers Care Grommet Machine Operator Name Role Phone Michele Wright MD Primary Care Provider + [phone] Edgar Szymanski MD Unavailable [phone] Shun Hurst MD Unavailable [phone] Divine Carpenter MD Unavailable [phone] Encounter Details Date Type Department Care Team (Late st Contact Info) Description 07/28/2021 Orders Only Pav CC Head, Neck & Respiratory 800 [facility], [address]nd [place] [address] Julius Schaefer Research study patient (Primary Dx) Social History Tobacco Use Types [...] have Coronavirus / COVID-19? No / Unsure 07/23/2021 10:27 AM EST documented as of this encounter Plan of Treatment Upcoming Encounters Date Type Department Care Team (Late st Contact Info) Description 07/17/2024 12:30 PM EST Clinical Support Pav CC Head, Neck & Respiratory 800 [facility], [address]nd [place] [address] 07/17/2024 1:30 PM EST Appointment PAV G Radiology [address] [place] [address] 07/20/2024 2:50 PM EST Office Visit Pav CC Head, Neck & Respiratory 800 [facility], [address]nd [place] [address] Divine Carpenter MD 800 [facility] [address] [place] [address] documented as of this encounter Visit Diagnoses Diagnosis Research study patient- Primary documented in this encounter Additional Health Concerns Assessment Noted Time A fall risk assessment has been complete d for the patient 07/28/2021 8:32 AM EST documented as of this encounter Care Teams Grommet Machine Operator Relationship Specialty Start Date End Date Michele Wright MD [address] [place] [address] PCP - General 10/11/20 Edgar Szymanski MD 800 [facility] [address] [place] [address] Radiation Oncologist Radiation Therapy 03/14/20 4 Shun Hurst MD [address] [facility] [address] [place] [address] Surgeon Neurosurgery 02/24/21 Divine Carpenter MD 800 [facility] Diane Zuniga [facility] [address] [place] [address] Medical Oncologist Medical Oncology 06/13/21 documented as of this encounter
--- OUTSIDE RECORDS SUMMARY | 2024-05-03 13:40 | XMS_ITS | Encounter Summary ---
Author Organization [facility] Address [address] [place] [address] Care Team Providers Care Seismic Plotter Name Role Phone Michele Wright MD Primary Care Provider + [phone] Edgar Szymanski MD Unavailable [phone] Shun Hurst MD Unavailable [phone] Divine Carpenter MD Unavailable [phone] Reason for Visit * Reason Comments port removal Encounter Details Date Type Department Care Team (Late st Contact Info) Description 07/30/2021 8:17 PM EST - 07/30/2021 10:20 PM EST Emergency [facility] Emergency Department [address] [place] [address] Vascular port complication, initial encounter (Primary Dx) Discharge Disposition: Home or Self [...] have Coronavirus / COVID-19? No / Unsure 07/30/2021 8:28 PM EST documented as of this encounter Last Filed Vital Signs Vital Sign Reading Time Taken Comments Blood Pressure 114/58 07/30/2021 8:32 PM EST Pulse 69 07/30/2021 8:32 PM EST Temperature 36.9 ??C (98.5 ??F) 07/30/2021 8:32 PM ES T Respiratory Rate 18 07/30/2021 8:32 PM EST Oxygen Saturation 94% 07/30/2021 8:32 PM EST Inhaled Oxygen Concentration - - Weight - - Height - - Body Mass Index - - documented in this encounter Medications at Time of Discharge morphine (MSIR) 30 MG tablet Take 2 tablets (60 mg total) by mouth 2 (two) times a day. 120 tablet 06/30/2021 2 albuterol 108 (90 Base) MCG/ACT inhaler Inhale [...] as of this encounter Miscellaneous Notes * ED Provider Notes - Grzegorz Strong MD - 07/30/2021 8:17 PM EST HPI Chief Complaint Patient presents with ??? port removal PIT Note Anibal Barreto is a 56 y.o. male who presents to ED with port removal. Pt reports neighbor's dog accidentally disconnected his port today. Port is located to left chest. Pt had port accessed for continuous chemo. Patient denies fever, chills, cough, chest pain, shortness of breath, nausea, vomiting, and diarrhea. Date/Time: 07/30/2021/8:58 PM Entered by Isabel Bowles, acting as scribe for Dr. Grzegorz Strong. Scribe Attestation: This note was dictated to me, Isabel Bowles, acting as a scribe for Dr. Grzegorz Strong Attending Attestation: The documentation was recorded by Isabel Bowles acting as scribe in my presence at the time of the encounter and accurately reflects the service I personally performed. No data recorded Patient History Past Medical History: Diagnosis Date ??? Chronic pain disorder neck/face post radiation/cancer. ??? COVID-19 06/12/21 ??? Dysphagia 2020 food must be very small to swallow , no issues with swallowing liquids ??? Essential (primary) hypertension HTN (hypertension) ??? GERD (gastroesophageal reflux disease) ??? Heartburn Heart burn ??? 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 Laryngeal cancer (CMS/HCC) s/p chemo/radiation ??? Neoplasm related pain 10/14/2020 ??? Other diseases of pharynx Hypopharyngeal mass ??? Personal history of antineoplastic chemotherapy History of chemotherapy ??? Personal history of irradiation History of radiation therapy ??? Personal history of other diseases of the respiratory system History of hemoptysis ??? Personal history of other endocrine, nutritional and metabolic disease History of high cholesterol ??? Personal history of other specified conditions 2019 History of palpitations ??? Pure hypercholesterolemia, unspecified Elevated cholesterol ??? Unspecified disorder of ear, unspecified ear Ear problems ??? Unspecified disorder of nose and nasal sinuses Sinus disorder ??? Unspecified osteoarthritis, unspecified site Arthritis Past Surgical History: Procedure Laterality Date ??? ESOPHAGEAL DILATION x2 ??? ESOPHAGOGASTRODUODENOSCOPY N/A Esophagogastroduodenoscopy from [facility] ??? FEEDING TUBE PLACEMENT N/A Now removed ??? LARYNGOSCOPY N/A Laryngoscopy from [facility] ??? LUNG SURGERY ??? OTHER SURGICAL HISTORY N/A Neck dissection modified radical from [facility] ??? OTHER SURGICAL HISTORY N/A Percutaneous endoscopic gastrostomy tube removal from [facility] ??? OTHER SURGICAL HISTORY N/A Laryngectomy from [facility] ??? OTHER SURGICAL HISTORY N/A Trachectomy from [...] Neg Hx ??? Malig Hyperthermia Neg Hx Tobacco Use ??? Smoking status: Former Smoker Quit date: 2000 Years since quittin.1 ??? Smokeless tobacco: Never Used Substance Use Topics ??? Alcohol use: Not Currently Comment: Alcoholic Drinks/day: Quit consuming alcohol in remote past ??? Drug use: Not Currently Types: Morphine Immunization History Immunization History: reviewed Allergies: Allergies Allergen Reactions ??? Cetuximab Anaphylaxis SOA, hypotension, after 9 ml of drug ??? Docetaxel Rash, Shortness of breath and Unknown Patient very dyspnic, flushed, severe back pain. Patient very dyspnic, flushed, severe back pain. Patient very dyspnic, flushed, severe back pain. ??? Methadone Rash, Other and Unknown Review of Systems Review of Systems Constitutional: Negative for chills and fever. HENT: Negative for ear pain and sore throat. Eyes: Negative for pain and visual disturbance. Respiratory: Negative for cough and shortness of breath. Cardiovascular: Negative for chest pain and palpitations. Gastrointestinal: Negative for abdominal pain and vomiting. Genitourinary: Negative for dysuria and hematuria. Musculoskeletal: Negative for arthralgias and back pain. Skin: Negative for color change and rash. Neurological: Negative for seizures and syncope. All other systems reviewed and are negative. Physical Exam ED Triage Vitals [07/30/212031] Temp Heart Rate Resp BP 36.9 ??C (98.5 ??F) 69 18 114/58 SpO2 Temp Source Heart Rate Source Patient Position 94 % Oral Monitor Sitting BP Location FiO2 (%) Right arm -- Physical Exam Vitals and nursing note reviewed. Constitutional: General: He is not in acute distress. Appearance: Normal appearance. HENT: Head: Normocephalic and atraumatic. Nose: No rhinorrhea. Mouth/Throat: Mouth: Mucous membranes are moist. Pharynx: Oropharynx is clear. Eyes: General: Right eye: No discharge. Left eye: No discharge. Conjunctiva/sclera: Conjunctivae normal. Pupils: Pupils are equal, round, and reactive to light. Pulmonary: Effort: Pulmonary effort is normal. No respiratory distress. Breath sounds: No stridor. Musculoskeletal: General: Normal range of motion. Cervical back: No rigidity. Skin: General: Skin is warm and dry. Neurological: Mental Status: He is alert and oriented to person, place, and time. Psychiatric: Mood and Affect: Mood normal. Behavior: Behavior normal. ED Course & MDM Clinical Impressions as of 07/30/212103 Vascular port complication, initial encounter ED Disposition: MDM Number of Diagnoses or Management Options Diagnosis management comments: In summary, patient is a 56yoM who presents to the ER for evaluationafter his port access was pulled. Patient's port is in proper position on his chest and needs to becleaned and reaccessed. Patient's port site was reaccessed after cleaning in the ER and patient's chemothepy was resumed. Patient has no symptoms concerning for infection such as erythema or pain at this time and there is no indication for prophylactic antibiotics at this time. Patient was discharged. ED Prescriptions None Sign Off Checklist Clinical Impression: Complete ED Disposition: Complete Grzegorz Strong MD 07/30/212103 * ED Triage Notes - Davion Tucker - 07/30/2021 8:17 PM EST Pt reports dog accidentally pulled out port to left chest. Pt had port accessed for continuous chemo. No bleeding on arrival to ED documented in this encounter Plan of Treatment Upcoming Encounters Date Type Department Care Team (Late st Contact Info) Description 07/17/2024 12:30 PM EST Clinical Support [facility] Res[facility] [address] [facility] [place] [id number] 07/17/2024 1:30 PM EST Appointment [facility] Radiology [address] [place] [address] 07/20/2024 2:50 PM EST Office Visit [facility] Res[facility] [address] [facility] [place] [address] Divine Carpenter MD [address] [facility] [address] [place] [address] documented as of this encounter Visit Diagnoses Diagnosis Vascular port complication, initial encounter- Primary documented in this encounter Additional Health Concerns Assessment Noted Time A fall risk assessment has been complete d for the patient 07/28/2021 8:32 AM EST documented as of this encounter Care Teams Seismic Plotter Relationship Specialty Start Date End Date Michele Wright MD [address] [place] [address] PCP - General 10/11/20 Edgar Szymanski MD [address] [facility] [address] [place] [phone] Radiation Oncologist Radiation Therapy 03/14/20 4 Shun Hurst MD [address] [place] [phone] Surgeon Neurosurgery 02/24/21 Divine Carpenter MD [address] [facility] [address] [place] [phone] Medical Oncologist Medical Oncology 06/13/21 documented as of this encounter
--- OUTSIDE RECORDS SUMMARY | 2024-05-03 13:40 | XMS_ITS | Encounter Summary ---
Author Organization [facility] Address [address] [place] [address] Care Team Providers Care Registered Medical Assistant Name Role Phone Michele Wright MD Primary Care Provider [phone] Edgar Szymanski MD Unavailable [phone] Shun Hurst MD Unavailable [phone] Bailey Ellis MD Unavailable [phone] Reason for Referral * Imaging (Routine) - Closed Specialty Diagnoses / Procedures Referred By Contac t Referred To Contact Radiology Diagnoses Cancer of larynx (CMS/HCC) Procedures CT Soft Tissue Neck w IV Contrast Bailey Ellis MD [address] [address] Phone: tel: fax: Referral ID Status Reason Start Date Expiration Date Visits Re quested Visits Authorized [id number] Closed 07/27/2021 01/26/2023 1 1 * Imaging (Routine) - Closed Specialty Diagnoses / Procedures Referred By Contac t Referred To Contact Radiology Diagnoses Cancer of larynx (CMS/HCC) Procedures CT Chest w IV Contrast Bailey Ellis MD [address] [address] Phone: tel: fax: Referral ID Status Reason Start Date Expiration Date Visits Re quested Visits Authorized [id number] Closed 07/27/2021 01/26/2023 1 1 Reason for Visit * Imaging (Routine) - Closed Specialty Diagnoses / Procedures Referred By Ortega harden Referred To Contact Radiology Diagnoses Cancer of larynx (CMS/HCC) Procedures CT Soft Tissue Neck w IV Contrast Bailey Ellis MD [address] [facility] [address] [place] [address] Phone: tel: fax: Referral ID Status Reason Start Date Expiration Date Visits Re quested Visits Authorized [id number] Closed 07/27/2021 01/26/2023 1 1 Encounter Details Date Type Department Care Team (Latest Contact Info) Description 08/14/2021 1:32 PM EDT - 08/14/2021 11:59 PM EDT Hospital Encounter [facility] Radiology [address] [place] [address] Cancer of larynx (CMS/HCC) Discharge Disposition: Home [...] as of this encounter Discharge Instructions * Discharge Instructions* Oma Guzman, ARRT - 08/14/2021 1:38 PM EDT Images from the original note were not included. Patient Education Caring for Yourself after Contrast Imaging If you had ORAL contrast: ?? You can go back to your normal diet and activities as tolerated. ?? Drink plenty of fluids, unless told otherwise. If you had IV contrast:? You can go back to your normal diet and activities as tolerated. ?? Drink plenty of fluids, unless told otherwise. ?? Leave a bandage on the site for 30 minutes (where the IV was inserted or blood was drawn). If you had Intravesical (bladder) contrast:? Return to normal diet and activity. What you need to know about delayed reaction to IV contrast What is IV Contrast? ?? Contrast is a dye that is put into your body through an IV. ?? It is used for imaging scans such as CT scans and MRIs. ?? The contrast makes blood vessels, organs and other parts of your body show up better on the scan. What do I need to do after IV contrast? ?? Drink lots of fluids. This will help flush the contrast out of your system. ?? Drink 2-3 extra glasses or bottles of water within 4 hours of your scan. What is a contrast reaction? ?? A contrast reaction is a bad side effect from the contrast dye. ?? It is rare but it does happen. ?? They can be mild - such as sneezing, itching, or hives. ?? They can be severe - such as trouble breathing, throat swelling, and irregular heart beat. When do these reactions happen? ?? They often happen right after the contrast is injected. ?? Some happen hours after going home.? Go to the nearest Emergency Department right away if you have any of these symptoms after you leavethe clinic or hospital. ?? Sneezing ?? Itching in your mouth, throat, eyes, ears, or skin ?? Rash or hives ?? Throwing up or stomach sickness ?? High heart rate or ???racing?? of your heart ?? Feeling dizzy or woozy ?? Feeling short of breath or like you can???t take a deep breath ?? Feeling very anxious for no other reason It is very important that these reactions be treated. Tell the doctor or nurse that you are having a reaction to IV contrast dye. Do not ignore any sign of a reaction! All reactions must be assessed by a doctor. Call 911 if you are alone and your reaction is more than mild sneezing or itching. If you have a mild reaction, call to speak with a Radiologist, explain that you havehad a contrast reaction, as this needs to be added to your medical record. documented in this encounter Medications at Time [...] TO HELP WITH URINE FLOW 30 capsule 08/13/2021 2 documented as of this encounter Plan of Treatment Upcoming Encounters Date Type Department Care Team (Late st Contact Info) Description 07/17/2024 12:30 PM EST Clinical Support [facility] Head[facility] Neck [facility] Respiratory [address] [facility] [place] [address] 07/17/2024 1:30 PM EST Appointment [facility] Radiology [address] [place] [address] 07/20/2024 2:50 PM EST Office Visit Pav [facility] Head[facility] Neck [facility] Respiratory [address] [facility] [place] [address] Bailey Ellis MD [address] [facility] [address] [facility] [address] [place] [address] documented as of this encounter Procedures Procedure Name Priority Date/Time Associated Diagnosis Comments CT CHEST W IV CONTRAST Routine 08/14/2021 1:57 PM EDT Cancer of larynx (CMS/HCC) CT SOFT TISSUE NECK W IV CONTRAST Routine 08/14/2021 1:57 PM EDT Cancer of larynx (CMS/HCC) documented in this encounter Results * CT Soft Tissue Neck w IV Contrast (08/14/2021 1:57 PM EDT) Anatomical Region Laterality Modality Neck Computed Tomogra phy Impressions 08/15/2021 11:10 AM EDT Extensive postsurgical and radiation effects as detailed above. No tumor recurrence or cervical adenopathy. CRITICAL RESULT: No. COMMUNICATION: Per this written report. Dictated by Mya Rodriguez on 08/15/2021 11:04 AM Signed by Mya Rodriguez on 08/15/2021 11:10 AM Narrative 08/15/2021 11:10 AM EDT Exam/Procedure: CT SOFT TISSUE NECK W IV CONTRAST ordered by BAILEY ELLIS, [id number] CLINICAL INDICATION: Laryngeal cancer status post chemoradiation therapy TECHNIQUE: Helical images were obtained through the neck, and reconstructed in the axial plane on bone and soft tissue algorithm at multiple slice thicknesses. Coronal and sagittal reformatted images were created. 100 mL of Omnipaque 300 were administered intravenously. Total DLP (Dose-Length Product): 846 mGy.cm. Please note: The reported value represents the total of one or more individual components during the CT acquisition on this date and at this time, and as such, the same value may appear in more than one CT report depending on the interpreting/reporting physicians. COMPARISON: Neck CT 06/12/2021 FINDINGS: Diagnostic Quality: Adequate. Soft Tissues: Extensive [...] findings. Procedure Note Mya Rodriguez MD - 08/15/2021 Exam/Procedure: CT SOFT TISSUE NECK W IV CONTRAST ordered by BAILEY MOREIRA, [id number] CLINICAL INDICATION: Laryngeal cancer status post chemoradiation therapy TECHNIQUE: Helical images were obtained through the neck, and reconstructed in theaxial plane on bone and soft tissue algorithm at multiple slicethicknesses. Coronal and sagittal reformatted images were created. 100 mLof Omnipaque 300 were administered intravenously. Total DLP (Dose-Length Product): 846 mGy.cm. Please note: The reportedvalue represents the total of one or more individual components during theCT acquisition on this date and at this time, and as such, the same valuemay appear in more than one CT report depending on theinterpreting/reporting physicians. COMPARISON: Neck CT 06/12/2021 FINDINGS: Diagnostic Quality: Adequate. Soft Tissues: Extensive [...] this written report. Dictated by Mya Rodriguez on 08/15/2021 11:04 AM Signed by Mya Rodriguez on 08/15/2021 11:10 AM us Bailey Ellis MD IMG CT PROCEDURES Final Resu lt * CT Chest w IV Contrast (08/14/2021 1:57 PM EDT) Anatomical Region Laterality Modality Chest Computed Tomogra phy Impressions 08/14/2021 2:48 PM EDT Mild postinflammatory fibrosis in dependent bilateral lower lobes which could be sequela of aspiration and/or drug toxicity. Patulous esophagus. CRITICAL RESULT: No. COMMUNICATION: Per this written report. Approved by Seema Sargent on 08/14/2021 2:15 PM By electronically signing this report, I, the attending physician, attest that I have personally reviewed the images/data for the above examination(s) and agree with the final edited report. Dictated by Seema Sargent on 08/14/2021 2:15 PM Signed by Brianna Carranza on 08/14/2021 2:48 PM Narrative 08/14/2021 2:48 PM EDT Exam/Procedure: CT CHEST W IV CONTRAST ordered by BAILEY ELLIS, [id number] CLINICAL INDICATION: Cough, persistent ?? TECHNIQUE: Multiple CT helical images were obtained from thoracic inlet through upper abdomen without administration of IV contrast. Total DLP (Dose-Length Product): 846 mGy.cm. Please note: The reported value represents the total of one or more individual components during the CT acquisition on this date and at this time, and as such, the same value may appear in more than one CT report depending on the interpreting/reporting physicians. COMPARISON: CT chest 05/18/2021. CT PE 06/12/2021 FINDINGS: Mediastinum and Pleura: Tracheostomy. No mediastinal or hilar adenopathy. No pleural or pericardial effusion. Atherosclerotic calcification of coronary artery and thoracic aorta. Left-sided [id number] with tip at the right atrium. Patulous esophagus. Please see separate report for concurrently performed CT neck findings. Lungs: Linear scarring the right upper lobe. Mild subpleural reticulation and scarring in the anterior right upper and middle lobe, likely sequela of radiation therapy. Improved bilateral groundglass opacities within dependent lower lobes, with increased conspicuity of reticular abnormalities and scarring in the left lower lobe and new clustered nodularity and reticular abnormality within dependent right lower lobe. Mild lower lobe bronchiectasis and minimal amount of endobronchial debris in the lower lobes posterior segmental bronchi. No suspicious pulmonary nodules. Upper Abdomen: No suspicious lesions in the partially visualized upper abdomen. Musculoskeletal: No suspicious lytic or sclerotic lesion. Right chest wall lesions, grossly unchanged compared to the prior exam and likely representing fat necrosis. Procedure Note Brianna Carranza MD - 08/14/2021 Exam/Procedure: CT CHEST W IV CONTRAST ordered by BAILEY ELLIS,[id number] CLINICAL INDICATION: Cough, persistent TECHNIQUE: Multiple CT helical images were obtained from thoracic inlet through upperabdomen without administration of IV contrast. Total DLP (Dose-Length Product): 846 mGy.cm. Please note: The reportedvalue represents the total of one or more individual components during theCT acquisition on this date and at this time, and as such, the same valuemay appear in more than one CT report depending on theinterpreting/reporting physicians. COMPARISON: CT chest 05/18/2021. CT PE 06/12/2021 FINDINGS: Mediastinum and Pleura: Tracheostomy. No mediastinal or hilar adenopathy.No pleural or pericardial effusion. Atherosclerotic calcification ofcoronary artery and thoracic aorta. Left-sided [id number] with tip atthe right atrium. Patulous esophagus. Please see separate report forconcurrently performed CT neck findings. Lungs: Linear scarring the right upper lobe. Mild subpleural reticulationand scarring in the anterior right upper and middle lobe, likely sequelaof radiation therapy. Improved bilateral groundglass opacities withindependent lower lobes, with increased conspicuity of reticularabnormalities and scarring in the left lower lobe and new clusterednodularity and reticular abnormality within dependent right lower lobe.Mild lower lobe bronchiectasis and minimal amount of endobronchial debrisin the lower lobes posterior segmental bronchi. No suspicious pulmonarynodules. Upper Abdomen: No suspicious lesions in the partially visualized upperabdomen. Musculoskeletal: No suspicious lytic or sclerotic lesion. Right chest walllesions, grossly unchanged compared to the prior exam and likelyrepresenting fat necrosis. IMPRESSION: Mild postinflammatory fibrosis in dependent bilateral lower lobes whichcould be sequela of aspiration and/or drug toxicity. Patulous esophagus. CRITICAL RESULT: No. COMMUNICATION: Per this written report. Approved by Seema Sargent on 08/14/2021 2:15 PM By electronically signing this report, I, the attending physician, attestthat I have personally reviewed the images/data for the aboveexamination(s) and agree with the final edited report. Dictated by Seema Sargent on 08/14/2021 2:15 PM Signed by Brianna Carranza on 08/14/2021 2:48 PM us Bailey Ellis MD IMG CT [...] as needed, 1 dose, Starting on Nenita 08/14/21 at 1351, Until Nenita 08/14/21 at 1412, Routine, Intraprocedure, line care Given 08/14/2021 2:12 PM EDT 500 Units iohexol (OMNIPaque) 300 MG/ML injection 100 mL 100 mL, Intravenous, Once in imaging, 1 dose, Starting on Nenita 08/14/21 at 1339, Until Nenita 08/14/21 at 1349, Routine, Imaging Protocol Orders Given 08/14/2021 1:49 PM EDT 100 mL documented in this encounter Additional Health Concerns Assessment Noted Time A fall risk assessment has been complete d for the patient 07/28/2021 8:32 AM EST documented as of this encounter Care Teams Registered Medical Assistant Relationship Specialty Start Date End Date Michele Wright MD [address] [employer], [place] [id number] PCP - General 10/11/20 Edgar Szymanski MD [address] [place] [address] Radiation Oncologist Radiation Therapy 03/14/20 4 Shun Hurst MD [address] [place] [address] Surgeon Neurosurgery 02/24/21 Bailey Ellis MD [address] [place] [address] Medical Oncologist Medical Oncology 06/13/21 documented as of this encounter
--- OUTSIDE RECORDS SUMMARY | 2024-05-03 13:40 | XMS_ITS | Encounter Summary ---
Author Organization Healthcare Address [address] [place] [address] Care Team Providers Care Smart Grid Engineer Name Role Phone Michele Wright MD Primary Care Provider + [phone] Edgar Szymanski MD Unavailable [phone] Shun Hurst MD Unavailable [phone] Divine Carpenter MD Unavailable [phone] Encounter Details Date Type Department Care Team (Latest Contact Info) Description 09/17/2021 Travel Social History Tobacco Use Types Packs/Day [...] Head, Neck & Respiratory 800 [facility], 2nd [place] [address] 07/17/2024 1:30 PM EST Appointment [facility] Radiology [address] [place] [address] 07/20/2024 2:50 PM EST Office Visit Pav CC Head, Neck & Respiratory 800 [facility], 2nd [place] [address] Divine Carpenter MD 800 [facility] Diane Zuniga [facility] [address] [place] [address] documented as of this encounter Visit Diagnoses Not on filedocumented in this encounter Additional Health Concerns Assessment Noted Time A fall risk assessment has been complete d for the patient 08/18/2021 9:25 AM EDT documented as of this encounter Care Teams Smart Grid Engineer Relationship Specialty Start Date End Date Michele Wright MD [address] [place] [address] PCP - General 10/11/20 Edgar Szymanski MD 800 [facility] [address] [place] [phone] Radiation Oncologist Radiation Therapy 03/14/20 4 Shun Hurst MD [address] [facility] [address] [place] [address] Surgeon Neurosurgery 02/24/21 Divine Carpenter MD 800 [facility] Diane Zuniga [facility] [address] [place] [address] Medical Oncologist Medical Oncology 06/13/21 documented as of this encounter
--- OUTSIDE RECORDS SUMMARY | 2024-05-03 13:40 | XMS_ITS | Encounter Summary ---
Author Organization Healthcare Address [address] [place] [address] Care Team Providers Care Service Delivery Analyst Name Role Phone Michele Wright MD Primary Care Provider + [phone] Edgar Szymanski MD Unavailable [phone] Shun Hurst MD Unavailable [phone] Divine Carpenter MD Unavailable [phone] Encounter Details Date Type Department Care Team (Latest Contact Info) Description 07/28/2021 Travel Social History Tobacco Use Types Packs/Day [...] Upcoming Encounters Date Type Department Care Team ([facility] st Contact Info) Description 07/17/2024 12:30 PM EST Clinical Support Pav CC Head, Neck & Respiratory 800 [facility], [address] [place] [address] 07/17/2024 1:30 PM EST Appointment [facility] G Radiology [address] [place] [address] 07/20/2024 2:50 PM EST Office Visit Pav CC Head, Neck & Respiratory 800 [facility], [address] [place] [address] Divine Carpenter MD 800 [facility] Diane Zuniga [facility] [address] [place] [address] documented as of this encounter Visit Diagnoses Not on filedocumented in this encounter Additional Health Concerns Assessment Noted Time A fall risk assessment has been complete d for the patient 07/28/2021 8:32 AM EST documented as of this encounter Care Teams Service Delivery Analyst Relationship Specialty Start Date End Date Michele Wright MD [address] [place] [address] PCP - General 10/11/20 Edgar Szymanski MD [address] [facility] [address] [place] [address] Radiation Oncologist Radiation Therapy 03/14/20 4 Shun Hurst MD [address] [facility] [address] [place] [address] Surgeon Neurosurgery 02/24/21 Divine Carpenter MD [address] [facility] Diane Zuniga [facility] [address] [place] [address] Medical Oncologist Medical Oncology 06/13/21 documented as of this encounter
--- OUTSIDE RECORDS SUMMARY | 2024-05-03 13:40 | XMS_ITS | Encounter Summary ---
Author Organization Healthcare Address [address] [place] [address] Care Team Providers Care Shore Worker Name Role Phone Michele Wright MD Primary Care Provider + [phone] Edgar Szymanski MD Unavailable [phone] Shun Hurst MD Unavailable [phone] Divine Carpenter MD Unavailable [phone] Encounter Details Date Type Department Care Team (Latest Contact Info) Description 08/01/2021 Travel Social History Tobacco Use Types Packs/Day [...] Upcoming Encounters Date Type Department Care Team ([facility] st Contact Info) Description 07/17/2024 12:30 PM EST Clinical Support Pav CC Head, Neck & Respiratory 800 [facility], [address] [place] [address] 07/17/2024 1:30 PM EST Appointment [facility] Radiology [address] [place] [address] 07/20/2024 2:50 PM EST Office Visit Pav CC Head, Neck & Respiratory 800 [facility], [address] [place] [address] Divine Carpenter MD 800 [facility] Diane Zuniga [facility] [address] [place] [address] documented as of this encounter Visit Diagnoses Not on filedocumented in this encounter Additional Health Concerns Assessment Noted Time A fall risk assessment has been complete d for the patient 07/28/2021 8:32 AM EST documented as of this encounter Care Teams Shore Worker Relationship Specialty Start Date End Date Michele Wright MD [address] [place] [address] PCP - General 10/11/20 Edgar Szymanski MD 800 [facility] [address] [place] [address] Radiation Oncologist Radiation Therapy 03/14/20 4 Shun Hurst MD [address] [facility] [address] [place] [address] Surgeon Neurosurgery 02/24/21 Divine Carpenter MD 800 [facility] Diane Zuniga [facility] [address] [place] [address] Medical Oncologist Medical Oncology 06/13/21 documented as of this encounter
--- OUTSIDE RECORDS SUMMARY | 2024-05-03 13:40 | XMS_ITS | Encounter Summary ---
Author Organization [facility] Address [address] [place] [address] Care Team Providers Care Cook Tortilla Name Role Phone Michele Wright MD Primary Care Provider + [phone] Edgar Szymanski MD Unavailable [phone] Shun Hurst MD Unavailable [phone] Divine Carpenter MD Unavailable [phone] Reason for Visit * Reason Onset Date Comments HCN - Patient Message 09/04/2021 Encounter Details Date Type Department Care Team (Late st Contact Info) Description 09/04/2021 Telephone Pav CC Head, Neck & Respiratory 800 [facility], 2nd Floor [place] [phone] Mary Correia MD [address] [place] [address] HCN - Patient Message Social History Tobacco [...] encounter Miscellaneous Notes * Telephone Encounter - Claudia Avila, RN - 09/04/2021 2:46 PM EDT I called and spoke with Anibal Reyes's . She wasn't sure if they still needed to come in to see Dr. Correia tomorrow because Anibal's scan appointments had been changed recently. I told her that Dr. Carpenter still wants Anibal to see Dr. Correia about the need for esophageal dilation vs PEG placement due to his malnutrition problems. She thanked me for the phone call and said they would see us tomorrow. * Telephone Encounter - Gracia Zhao - 09/04/2021 1:12 PM EDT Patient Phone Message Masood Reason for Call: 09/05/21 appt needs to know if he needs to come Best contact number and optimal time of [...] [facility] 2nd [place] [address] 07/17/2024 1:30 PM EST Appointment [facility] Radiology [address] [place] [address] 07/20/2024 2:50 PM EST Office Visit Pav CC Head, Neck & Respiratory [address] [place] [address] Divine Carpenter MD [address] [facility] [address] [place] [address] documented as of this encounter Visit Diagnoses Not on filedocumented in this encounter Additional Health Concerns Assessment Noted Time A fall risk assessment has been complete d for the patient 08/18/2021 9:25 AM EDT documented as of this encounter Care Teams Cook Tortilla Relationship Specialty Start Date End Date Michele Wright MD [address] [place] [address] PCP - General 10/11/20 Edgar Szymanski MD [address] [facility] [address] [place] [address] Radiation Oncologist Radiation Therapy 03/14/20 4 Shun Hurst MD [address] [place] [address] Surgeon Neurosurgery 02/24/21 Divine Carpenter MD [address] [facility] [address] [place] [address] Medical Oncologist Medical Oncology 06/13/21 documented as of this encounter
--- OUTSIDE RECORDS SUMMARY | 2024-05-03 13:40 | XMS_ITS | Encounter Summary ---
Author Organization Healthcare Address [address] [place] [address] Care Team Providers Care Grid Trimmer Name Role Phone Michele Wright MD Primary Care Provider + [phone] Edgar Szymanski MD Unavailable [phone] Shun Hurst MD Unavailable [phone] Divine Carpenter MD Unavailable [phone] Encounter Details Date Type Department Care Team (Latest Contact Info) Description 08/18/2021 Travel Social History Tobacco Use Types Packs/Day [...] 800 [facility], 2nd [place] [address] 07/17/2024 1:30 PM EST Appointment [facility] Radiology [address] [place] [address] 07/20/2024 2:50 PM EST Office Visit Pav CC Head, Neck & Respiratory 800 [facility], 2nd [place] [address] Divine Carpenter MD 800 [facility] Diane Zuniga [facility] [address] [place] [address] documented as of this encounter Visit Diagnoses Not on filedocumented in this encounter Additional Health Concerns Assessment Noted Time A fall risk assessment has been complete d for the patient 08/18/2021 9:25 AM EDT documented as of this encounter Care Teams Grid Trimmer Relationship Specialty Start Date End Date Michele Wright MD [address] [place] [address] PCP - General 10/11/20 Edgar Szymanski MD 800 [facility] [address] [place] [address] Radiation Oncologist Radiation Therapy 03/14/20 4 Shun Hurst MD [address] [facility] [address] [place] [address] Surgeon Neurosurgery 02/24/21 Divine Carpenter MD 800 [facility] Diane Zuniga [facility] [address] [place] [address] Medical Oncologist Medical Oncology 06/13/21 documented as of this encounter
--- OUTSIDE RECORDS SUMMARY | 2024-05-03 13:40 | XMS_ITS | Encounter Summary ---
Author Organization [facility] Address [address] [place], [place] [address] Care Team Providers Care Stopper Maker Helper Name Role Phone Michele Wright MD Primary Care Provider + [phone] Edgar Szymanski MD Unavailable [phone] Shun Hurst MD Unavailable [phone] Divine Carpenter MD Unavailable [phone] Reason for Visit * Episode Based Medications (Routine) - Closed Specialty Diagnoses / Procedures Referred By Contac t Referred To Contact Diagnoses Cancer of larynx (CMS/HCC) Divine Carpenter MD [address] [address] Phone: tel: fax: [facility] [address] [place] [address] Phone: tel: Referral ID Status Reason Start Date Expiration Date Visits Re quested Visits Authorized [id number] Closed 02/17/2021 10/25/2021 1 78 Encounter Details Date Type Department Care Team (Latest Contact Info) Description 07/28/2021 9:29 AM EST - 07/28/2021 11:59 PM EST Hospital Encounter [facility] [address] [place] [address] Cancer of larynx (CMS/HCC) (Primary Dx) Discharge Disposition: Home or Self [...] Sign Reading Time Taken Comments Blood Pressure 163/79 07/28/2021 9:30 AM EST Pulse 76 07/28/2021 9:30 AM EST Temperature 37 ??C (98.6 ??F) 07/28/2021 9:30 AM EST Respiratory Rate 18 07/28/2021 9:30 AM EST Oxygen Saturation 100% 07/28/2021 9:30 AM EST Inhaled Oxygen Concentration - - Weight 93.2 kg (205 lb 7.5 oz) 07/28/2021 9:30 A M EST Height 177.8 cm (5' 10 ) 07/28/2021 9:30 AM EST Body Mass Index 29.48 07/28/2021 9:30 AM EST documented in this encounter Medications at Time of Discharge fluconazole (Diflucan) 100 MG tablet Take 1 tablet (100 mg total) by mouth 1 (one) time each day for 14 days. 14 tablet 07/15/2021 2 morphine (MSIR) 30 MG tablet Take 2 [...] encounter Miscellaneous Notes * Addendum Note - Greer Monsivais - 07/28/2021 10:00 AM ESTEncounter addended by: Greer Monsivais on: 07/29/2021 10:04 AM Actions taken: Charge Capture section accepted documented in this encounter Plan of Treatment Upcoming Encounters Date Type Department Care Team (Late st Contact Info) Description 07/17/2024 12:30 PM EST Clinical Support Pav CC Head, Neck & Respiratory 800 [facility], [address]nd [place] [address] 07/17/2024 1:30 PM EST Appointment [facility] Radiology [address] [place] [address] 07/20/2024 2:50 PM EST Office Visit Pav CC Head, Neck & Respiratory 800 [facility], [address] [place] [address] Divine Carpenter MD 800 [facility] [address] [place] [address] documented as of this encounter Visit Diagnoses Diagnosis 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, unspecified site documented in this encounter Administered Medications Inactive Administered Medications - up to 3 most recent administrations Medication Order MAR Action Action Date Dose Rate Site aprepitant (Cinvanti) 130 MG/18ML IV 130 mg 130 mg, Intravenous, Once, 1 dose, On Wed07/28/21 at 1045, RoutineIndications:Cancer of larynx (CMS/HCC) New Bag 07/28/2021 10:34 AM EST 130 mg 540 mL/hr CARBOplatin (Paraplatin) 600 mg in sodium chloride 0.9 % 250 mL chemo IVPB 600 mg (Target AUC = 4), Intravenous, at 710 mL/hr, Administer over 30 Minutes, Once, Hazardous Drug-Tier 1 Precautions. Dispose in BLACK Hazardous Waste Container. Chemotherapy: refer to A14-065., On Wed07/28/21 at 1215, For 1 dose, NS 250 mLIndications:Cancer of larynx (CMS/HCC) New Bag 07/28/2021 11:47 AM EST 600 mg 710 mL/hr dexamethasone (Decadron) tablet 12 mg 12 mg, Oral, Once, 1 dose, On Wed07/28/21 at 1045, RoutineIndications:Cancer of larynx (CMS/HCC) Given 07/28/2021 10:35 AM EST 12 mg fluorouracil (Adrucil) 6,350 mg in sodium chloride 0.9 % 230 mL chemo infusion - for home use 6,350 mg (rounded from 6,330 mg = 3,000 mg/m2 ? 2.11 m2 Treatment Plan BSA from Recorded weight), Intravenous, at 2.4 mL/hr, Administer over 96 Hours, Over 96 hours, Hazardous Drug-Tier 1 Precautions. Dispose in BLACK Hazardous Waste Container. Chemotherapy: refer to A14-065., First dose on Wed07/28/21 at 1245, For 1 dose, NS 230 mL (Elastometric Pump)Indications:Cancer of larynx (CMS/HCC) Given 07/28/2021 12:45 PM EST 6,350 mg 2.4 mL/hr magnesium oxide (Mag-Ox) tablet 400 mg 400 mg, Oral, Once, 1 dose, On Wed07/28/21 at 1030, RoutineIndications:Cancer of larynx (CMS/HCC) Given 07/28/2021 10:35 AM EST 400 mg ondansetron ODT (Zofran-ODT) disintegrating tablet 16 mg 16 mg, Oral, Once, 1 dose, On Wed07/28/21 at 1045, RoutineIndications:Cancer of larynx (CMS/HCC) Given 07/28/2021 10:35 AM EST 16 mg documented in this encounter Additional Health Concerns Assessment Noted Time A fall risk assessment has been complete d for the patient 07/28/2021 8:32 AM EST documented as of this encounter Care Teams Stopper Maker Helper Relationship Specialty Start Date End Date Michele Wright MD [address] [place] [address] PCP - General 5/14/21 Edgar Szymanski MD [address] [facility] [address] [place] [address] Radiation Oncologist Radiation Therapy 03/14/20 4 Shun Hurst MD [address] [place] [address] Surgeon Neurosurgery 02/24/21 Divine Carpenter MD [address] [facility] [address] [place] [address] Medical Oncologist Medical Oncology 06/13/21 documented as of this encounter
--- OUTSIDE RECORDS SUMMARY | 2024-05-03 13:40 | XMS_ITS | Encounter Summary ---
Author Organization [facility] Address [address] [place] [address] Care Team Providers Care Internal Revenue Agent Name Role Phone Michele Wright MD Primary Care Provider + [phone] Edgar Szymanski MD Unavailable [phone] Shun Hurst MD Unavailable [phone] Bailey Ellis MD Unavailable [phone] Reason for Referral * Imaging (Routine) - Closed Specialty Diagnoses / Procedures Referred By Contac t Referred To Contact Radiology Diagnoses Cancer of larynx (CMS/HCC) Primary hypertension Procedures CT Soft Tissue Neck w IV Contrast Bailey Ellis MD [address] [address] Phone: tel: fax: Referral ID Status Reason Start Date Expiration Date Visits Re quested Visits Authorized [id number] Closed 11/03/2021 05/05/2023 1 1 * Imaging (Routine) - Closed Specialty Diagnoses / Procedures Referred By Contac t Referred To Contact Radiology Diagnoses Cancer of larynx (CMS/HCC) Primary hypertension Procedures CT Chest w IV Contrast Bailey Ellis MD [address] [address] Phone: tel: fax: Referral ID Status Reason Start Date Expiration Date Visits Re quested Visits Authorized [id number] Closed 11/03/2021 05/05/2023 1 1 Encounter Details Date Type Department Care Team ([facility] Contact Info) Description 11/03/2021 Orders Only [facility] Head[facility] Respiratory 800 [facility] [address] [place] [address] Ambika Ambriz, RN [facility] Cancer of larynx (CMS/HCC) (Primary Dx); Primary hypertension Social History Tobacco Use Types [...] [facility] Res[facility] [address] [address] 07/17/2024 1:30 PM EST Appointment PAV G Radiology [address] [place] [address] 07/20/2024 2:50 PM EST Office Visit Pav [facility] Head[facility] Neck & Respiratory 800 [facility] [address] [place] [address] Bailey Ellis MD 800 [facility] [address] [place] [address] documented as of this encounter Results * [...] error, please notify the sender immediately at [phone] and permanently delete the original report and destroy any copies or printouts. Narrative 12/04/2021 9:25 PM EDT [facility] ? - Phone Outpatient NAME: Anibal Barreto ?? DATE OF EXAM: 12/04/2021 Patient No: ??[id number] Physician: ??Jayden^Bailey Date of : ??1965 Past [...] Washburn MD - 12/04/2021 [facility] - Phone Outpatient NAME: Anibal Barreto DATE OF EXAM: 12/04/2021 Patient No: [id number] Physician: Lynette Date of : 1965 Past [...] in error, pleasenotify the sender immediately at [phone] and permanently delete theoriginal report and destroy [...] W IV CONTRAST ordered by BAILEY ELLIS, [id number] CLINICAL INDICATION: eval for metastatic disease TECHNIQUE: [...] CHEST W IV CONTRAST ordered by BAILEY ELLIS,[id number] CLINICAL INDICATION: eval for metastatic disease TECHNIQUE: [...] Resu lt * Thyroid Stimulating Hormone, Plasma (TSH) (12/04/2021 3:22 PM EDT) Thyroid Stimulating Hormone, Plasma 0.47 0.40 - 4.20 uIU/mL 12/04/2021 4:18 PM EDT [facility] Blood Venous blood specimen / Unknown Venipuncture / Unknown 12/04/2021 3:22 PM EDT 12/04/2021 3:40 PM EDT Bailey Ellis MD LAB BLOOD ORDERABLES Final R esult [facility] [address] [place] [address] * (ABNORMAL) Comprehensive Metabolic Panel, Plasma (12/04/2021 3:22 PM EDT) Glucose, Plasma 103(H) 74 - 99 mg/dL 12/04/2021 4:18 PM EDT [facility] BUN, Plasma 16 7 - 21 mg/dL 12/04/2021 4:18 PM EDT [facility] Creatinine, Plasma 0.77(L) 0.80 - 1.30 mg/dL 12/04/2021 4:18 PM EDT [facility] BUN/Creatinine Ratio 21 12/04/2021 4:18 PM EDT [facility] Sodium, Plasma 138 136 - 145 mmol/L 12/04/2021 4:18 PM EDT [facility] Potassium, Plasma 4.3 3.7 - 4.8 mmol/L 12/04/2021 4:18 PM EDT [facility] Comment:Reference range for Serum potassium is 0.2 to 0.5 mmol/L higher than Plasma range. Chloride, Plasma 100 97 - 107 mmol/L 12/04/2021 4:18 PM EDT [facility] CO2, Plasma 30(H) 22 - 29 mmol/L 12/04/2021 4:18 PM EDT [facility] Anion Gap 8 6 - 16 mmol/L 12/04/2021 4:18 PM EDT [facility] Total Calcium, Plasma 9.1 8.9 - 10.2 mg/dL 12/04/2021 4:18 PM EDT [facility] Total Protein 7.1 6.3 - 7.9 g/dL 12/04/2021 4:18 PM EDT [facility] Albumin, Plasma 4.1 3.5 - 5.2 g/dL 12/04/2021 4:18 PM EDT [facility] AST, Plasma 16 12 - 40 U/L 12/04/2021 4:18 PM EDT [facility] ALT, Plasma 8(L) 11 - 41 U/L 12/04/2021 4:18 PM EDT [facility] Alkaline Phosphatase, Plasma 76 40 - 115 U/L 12/04/2021 4:18 PM [facility] Total Bilirubin, Plasma 0.5 0.2 - 1.1 mg/dL 12/04/2021 4:18 PM EDT [facility] eGFR >60 >60 mL/min/1.7 3m*2 12/04/2021 4:18 PM EDT [facility] Comment:eGFR = estimated GFR ; [...] >60 mL/min/1.7 3m*2 12/04/2021 4:18 PM EDT [facility] Comment:eGFR = estimated GFR ; [...] 3:22 PM EDT 12/04/2021 3:40 PM EDT us Bailey Ellis MD LAB BLOOD ORDERABLES Final R esult [facility] [address] [place] [id number] * (ABNORMAL) CBC and Differential (12/04/2021 3:22 PM EDT) WBC Count 5.25 3.70 - 10.30 10*3/uL LAB HEMATOLOGY METHOD 12/04/2021 3:42 PM EDT [facility] RBC Count 4.53(L) 4.60 - 6.10 10*6/uL LAB HEMATOLOGY METHOD 12/04/2021 3:42 PM EDT [facility] HGB 12.5(L) 13.7 - 17.5 g/dL LAB HEMATOLOGY METHOD 12/04/2021 3:42 PM EDT [facility] HCT 38.8(L) 40.0 - 51.0 % LAB HEMATOLOGY METHOD 12/04/2021 3:42 PM EDT [facility] Platelet Count 144(L) 155 - 369 10*3/uL LAB HEMATOLOGY METHOD 12/04/2021 3:42 PM EDT [facility] MCV 86 79 - 98 fL LAB HEMATOLOGY METHOD 12/04/2021 3:42 PM EDT [facility] MCH 27.6 26.0 - 32.0 pg LAB HEMATOLOGY METHOD 12/04/2021 3:42 PM EDT [facility] MCHC 32.2 30.7 - 35.5 g/dL LAB HEMATOLOGY METHOD 12/04/2021 3:42 PM EDT [facility] RDW 13.6 11.5 - 14.5 % LAB HEMATOLOGY METHOD 12/04/2021 3:42 PM EDT [facility] MPV 11.0 8.8 - 12.5 fL LAB HEMATOLOGY METHOD 12/04/2021 3:42 PM EDT [facility] nRBC 0.0 <=0.0 per 100 WBCs LAB HEMATOLOGY METHOD 12/04/2021 3:42 PM EDT [facility] Differential Type Automated LAB HEMATOLOGY METHOD 12/04/2021 3:42 PM EDT [facility] Neutrophils % 74.0 % LAB HEMATOLOGY METHOD 12/04/2021 3:42 PM EDT [facility] Lymphocytes % 13.0 % LAB HEMATOLOGY METHOD 12/04/2021 3:42 PM EDT [facility] Monocytes % 10.0 % LAB HEMATOLOGY METHOD 12/04/2021 3:42 PM EDT [facility] Eosinophils % 3.0 % LAB HEMATOLOGY METHOD 12/04/2021 3:42 PM EDT [facility] Basophils % 0.0 % LAB HEMATOLOGY METHOD 12/04/2021 3:42 PM EDT [facility] Immature Granulocytes % 0.0 % LAB HEMATOLOGY METHOD 12/04/2021 3:42 PM EDT [facility] Neutrophils Absolute 3.92 1.60 - 6.10 10*3/uL LAB HEMATOLOGY METHOD 12/04/2021 3:42 PM EDT [facility] Lymphocytes Absolute 0.66(L) 1.20 - 3.90 10*3/uL LAB HEMATOLOGY METHOD 12/04/2021 3:42 PM EDT [facility] Monocytes Absolute 0.50 0.30 - 0.90 10*3/uL LAB HEMATOLOGY METHOD 12/04/2021 3:42 PM EDT [facility] Eosinophils Absolute 0.13 0.00 - 0.50 10*3/uL LAB HEMATOLOGY METHOD 12/04/2021 3:42 PM EDT [facility] Basophils Absolute 0.02 0.00 - 0.10 10*3/uL LAB HEMATOLOGY METHOD 12/04/2021 3:42 PM EDT [facility] Immature Granulocytes Absolute 0.02 0.00 - 0.06 10*3/uL LAB HEMATOLOGY METHOD 12/04/2021 3:42 PM EDT [facility] Blood Venous blood specimen / Unknown Venipuncture / Unknown 12/04/2021 3:22 PM EDT 12/04/2021 3:35 PM EDT Narrative [facility] - 12/04/2021 3:42 PM EDT Therapeutic decision making should be based on absolute values, rather than percentages. Bailey Ellis MD LAB BLOOD ORDERABLES Final R esult [facility] [address] [place] [address] documented in this encounter Visit Diagnoses Diagnosis 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, unspecified site Primary hypertension Unspecified essential hypertension 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, unspecified site Primary hypertension Unspecified essential hypertension documented in this encounter Additional Health Concerns Assessment Noted Time A fall risk assessment has been complete d for the patient 08/18/2021 9:25 AM EDT documented as of this encounter Care Teams Internal Revenue Agent Relationship Specialty Start Date End Date Michele Wright MD [address] [place] [address] PCP - General 10/11/20 Edgar Szymanski MD 800 [facility] [address] [place] [address] Radiation Oncologist Radiation Therapy 03/14/20 4 Shun Hurst MD [address] [place] [address] Surgeon Neurosurgery 02/24/21 Bailey Ellis MD [address] Diane Zuniga [facility] [address] [place] [address] Medical Oncologist Medical Oncology 06/13/21 documented as of this encounter
--- OUTSIDE RECORDS SUMMARY | 2024-05-03 13:40 | XMS_ITS | Encounter Summary ---
Author Organization Healthcare Address [address] [place] [address] Care Team Providers Care Project Geophysicist Name Role Phone Michele Wright MD Primary Care Provider + [phone] Edgar Szymanski MD Unavailable [phone] Shun Hurst MD Unavailable [phone] Divine Carpenter MD Unavailable [phone] Encounter Details Date Type Department Care Team (Latest Contact Info) Description 08/14/2021 Travel Social History Tobacco Use Types Packs/Day [...] have Coronavirus / COVID-19? No / Unsure 08/14/2021 11:56 AM EDT documented as of this encounter Plan of Treatment Upcoming Encounters Date Type Department Care Team ([facility] st Contact Info) Description 07/17/2024 12:30 PM EST Clinical Support Pav CC Head[facility] Neck & Respiratory 800 [facility], [address]nd [place] [address] 07/17/2024 1:30 PM EST Appointment [facility] G Radiology [address] [place] [address] 07/20/2024 2:50 PM EST Office Visit Pav CC Head, Neck & Respiratory 800 [facility], [address]nd [place] [address] Divine Carpenter MD [address] [facility] Diane Zuniga [facility] [address] [place] [address] documented as of this encounter Visit Diagnoses Not on filedocumented in this encounter Additional Health Concerns Assessment Noted Time A fall risk assessment has been complete d for the patient 07/28/2021 8:32 AM EST documented as of this encounter Care Teams Project Geophysicist Relationship Specialty Start Date End Date Michele Wright MD [address] [place] [address] PCP - General 10/11/20 Edgar Szymanski MD 800 [facility] [address] [place] [address] Radiation Oncologist Radiation Therapy 03/14/20 4 Shun Hurst MD [address] [facility] [address] [place] [phone] Surgeon Neurosurgery 02/24/21 Divine Carpenter MD [address] [facility] Diane Zuniga [facility] [address] [place] [address] Medical Oncologist Medical Oncology 06/13/21 documented as of this encounter
--- OUTSIDE RECORDS SUMMARY | 2024-05-03 13:40 | XMS_ITS | Encounter Summary ---
Author Organization [facility] Address [address] [place], [place] [address] Care Team Providers Care Lehr Loader Name Role Phone Michele Wright MD Primary Care Provider + [phone] Edgar Szymanski MD Unavailable [phone] Shun Hurst MD Unavailable [phone] Divine Carpenter MD Unavailable [phone] Reason for Visit * Reason Comments Follow-up * Episode Based Medications (Routine) - Closed Specialty Diagnoses / Procedures Referred By Contac t Referred To Contact Diagnoses Cancer of larynx (CMS/HCC) Divine Carpenter MD 800 [facility] Diane Zuniga [address] [address] Phone: tel: fax: [facility] [address] [place] [address] Phone: tel: Referral ID Status Reason Start Date Expiration Date Visits Re quested Visits Authorized [id number] Closed 02/17/2021 10/25/2021 1 78 Encounter Details Date Type Department Care Team (Late st Contact Info) Description 08/18/2021 9:20 AM EDT Office Visit Pav CC Head, Neck & Respiratory 800 [facility], [address]nd [place] [address] Divine Carpenter MD 800 [facility] Diane Zuniga [facility] [address] [place] [address] Cancer of larynx (CMS/HCC) (Primary Dx); Neoplasm related pain; Dysphagia causing pulmonary aspiration with swallowing; 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 Social [...] Sign Reading Time Taken Comments Blood Pressure 145/75 08/18/2021 9:27 AM EDT Pulse 67 08/18/2021 9:27 AM EDT Temperature 37.1 ??C (98.7 ??F) 08/18/2021 9:27 AM ED T Respiratory Rate 16 08/18/2021 9:27 AM EDT Oxygen Saturation 94% 08/18/2021 9:27 AM EDT Inhaled Oxygen Concentration - - Weight 93.8 kg (206 lb 12.7 oz) 08/18/2021 9:27 AM EDT Height 178 cm (5' 10.08 ) 08/18/2021 9:27 AM EDT Body Mass Index 29.6 08/18/2021 9:27 AM EDT documented in this encounter Miscellaneous Notes * Progress Notes - Divine Carpenter MD - 08/18/2021 9:20 AM EDT MEDICAL ONCOLOGY FOLLOW-UP NOTE Patient Information Patient Name: Anibal Barreto Date of : 1965 REFERRING PHYSICIAN: Michele Wright MD Encounter Date: 08/18/2021 Treatment Diagnosis: Cancer Staging Cancer of larynx [...] with adenopathy in levels 2 through 4 [id number] 3 PET/CT scan dated 02/19/2017 showed an intensely hypermetabolic epiglottis and mucosa extending to the true vocal cords, slightly asymmetric involving the right pyriform sinus and aryepiglottic fold with 27 4 mSUV along with intensely hypermetabolic bilateral cervical lymph nodes 4 A biopsy performed here at [facility] during direct examination on 03/03/2017 showed 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 Cancer of larynx ([facility]) 02/19/2017 Cancer Staged Staging form: Larynx - [...] 10/14/2020 03/14/2020 - 11/24/2020 Research Study Participant [id number]: Pembrolizumab Every 42 Days Every 84 Days Plan Provider: Divine Carpenter MD Treatment goal: Palliative Line of treatment: Second Line Associated studies: Priming Immunotherapy in Advanced Disease with Radiation 11/26/2020 - Radiation Therapy The patient saw No care steaming machine operator to display for radiation treatment. This is the current list ofradiation treatment: Radiation Treatments No radiation treatments to show. (Treatments may have been administered in another system.) 12/09/2020 - Radiation Therapy The patient saw No care steaming machine operator to display for radiation treatment. This is [...] Radiation Therapy The patient saw No care steaming machine operator to display for radiation treatment. This is the current list ofradiation treatment: Radiation Treatments No radiation treatments to show. (Treatments may have been administered in another system.) 11/26/2020 Initial Diagnosis Secondary malignant neoplasm of chest wall (CMS/HCC) 12/09/2020 - Radiation Therapy The patient saw No care steaming machine operator to display for radiation treatment. This is [...] encounter by me personally Objective Performance Status 1: Restricted in physically strenuous activity but ambulatory and able to do light work Blood pressure 145/75, pulse 67, temperature 37.1 ??C (98.7 ??F), temperature source Oral, resp. rate 16, height 1.78 m (5' 10.08 ), weight 93.8 kg (206 lb 12.7 oz), SpO2 94 %. EXAM Physical Exam [...] cancer related drug toxicity and treatment related termite treater helper toxicity CBC WBC 2.19 Hgb 10.4 PLT 54 HCT 32.6 Lab Results Component Value Date NEUTROABS 1.38 (L) 08/18/2021 BMPL Na 137 Cl 99 BUN 11 Gluc 136 K 3.7 Co2 29 Creat 0.73 LIVER FUNCTION TESTING Tot Prot 6.6 AST 14 Tot bili 0.4 ALT 9 Alkphos 78 Ca 9.0 Mg 1.6 Phos 3.9 Lab Results Component Value Date TSH 2.40 08/14/2021 RADIOLOGY: I visualized the recent imaging below and discussed the current radiology findings with the patientin detail and provided the report to the patient and answered all questions. CT Soft Tissue Neck w IV Contrast 08-14-21 Impression: Extensive postsurgical and radiation effects as detailed above. No tumor recurrence or cervical adenopathy. 08-14-21: CT chest with IV contrast Mild postinflammatory fibrosis in dependent bilateral lower lobes which could be sequela of aspiration and/or drug toxicity. ?? Patulous esophagus. Assessment/Plan 1. Cancer management : Cancer Staging Cancer of larynx (CMS/HCC), Staging form: Larynx - Glottis, AJCC 8th Edition, Pathologic: Stage IVC (recurrent) -This represents a life threatening illness for which continued cancer treatment is indicated. - I independently visualized and reviewed the current radiology findings with the patient in detailand answered all questions. I agree that this shows great response and no PROGRESSIVE DISEASE - continue 5FU + Carboplatin, dose reduction 75% on 5 FU and Carbo to AUC of 4 - Discussed continuing current chemotherapy after the 6th cycle, but based on his CT results, we will take a break and rescan in 3M. Patient agreeable. 2. Cough and aspiration with some sputum production - Augmentin, hold chemotherapy, and report back if symptoms worsen 2. Pain related to neoplasm: chronic with [...] from radiation and systemic cancer therapy. 5. Regimen Related Toxicity: - Chemotherapy Induced Nausea: reflled ondansetron, compazine and will monitor for nausea and vomiting. - Reasonably controlled. 6. COVID infection - now recovered - s/p Tammie, but will redose today per new EUA dosing. Will hold on COVID Booster and continue to reassess. He is 14 d post treatment. Divine Carpenter MD Orders Placed This Encounter Procedures ??? CT Soft Tissue Neck w IV Contrast ??? CT Chest w IV Contrast ??? CBC and differential ??? Comprehensive metabolic panel ??? Magnesium documented in this encounter Plan of Treatment Upcoming Encounters Date Type Department Care Team (Late st Contact Info) Description 07/17/2024 12:30 PM EST Clinical Support Pav CC Head, Neck & Respiratory 800 [facility], [address]nd [place] [address] 07/17/2024 1:30 PM EST Appointment P[facility] G Radiology [address] [place] [phone] 07/20/2024 2:50 PM EST Office Visit Pav CC Head, Neck & Respiratory 800 [facility], [address]nd [place] [address] Divine Carpenter MD 800 [facility] [address] [place] [address] documented as of this encounter Procedures Procedure Name Priority Date/Time Associated Diagnosis Comments CBC WITH AUTO DIFFERENTIAL Routine 08/18/2021 9:43 AM EDT Cancer of larynx (CMS/HCC) documented in this encounter Results * (ABNORMAL) CBC and differential (08/18/2021 9:43 AM EDT) WBC Count 2.19(L) 3.70 - 10.30 10*3/uL LAB HEMATOLOGY METHOD 08/18/2021 11:08 AM EDT [facility] RBC Count 3.37(L) 4.60 - 6.10 10*6/uL LAB HEMATOLOGY METHOD 08/18/2021 11:[address] [facility] HGB 10.4(L) 13.7 - 17.5 g/dL LAB HEMATOLOGY METHOD 08/18/2021 11:[address] ED[address] [facility] HCT 32.6(L) 40.0 - 51.0 % LAB HEMATOLOGY METHOD 08/18/2021 11:08 AM EDT [facility] Platelet Count 54(L) 155 - 369 10*3/uL LAB HEMATOLOGY METHOD 08/18/2021 11:08 [address] EDT [facility] MCV 97 79 - 98 fL LAB HEMATOLOGY METHOD 08/18/2021 11:08 [address] EDT [facility] MCH 30.9 26.0 - 32.0 pg LAB HEMATOLOGY METHOD 08/18/2021 11:08 AM EDT [facility] MCHC 31.9 30.7 - 35.5 g/dL LAB HEMATOLOGY METHOD 08/18/2021 11:08 AM EDT [facility] RDW 15.9(H) 11.5 - 14.5 % LAB HEMATOLOGY METHOD 08/18/2021 11:08 AM EDT [facility] MPV 13.6(H) 8.8 - 12.5 fL LAB HEMATOLOGY METHOD 08/18/2021 11:08 AM EDT [facility] Comment:Not Measured nRBC 0.0 <=0.0 per 100 WBCs LAB HEMATOLOGY METHOD 08/18/2021 11:08 AM EDT [facility] Differential Type Automated LAB HEMATOLOGY METHOD 08/18/2021 11:08 AM EDT [facility] Neutrophils % 63.0 % LAB HEMATOLOGY METHOD 08/18/2021 11:08 AM EDT [facility] Lymphocytes % 18.0 % LAB HEMATOLOGY METHOD 08/18/2021 11:08 AM EDT [facility] Monocytes % 17.0 % LAB HEMATOLOGY METHOD 08/18/2021 11:08 AM EDT [facility] Eosinophils % 1.0 % LAB HEMATOLOGY METHOD 08/18/2021 11:08 AM EDT [facility] Basophils % 0.0 % LAB HEMATOLOGY METHOD 08/18/2021 11:08 AM EDT [facility] Immature Granulocytes % 1.0 % LAB HEMATOLOGY METHOD 08/18/2021 11:08 AM EDT [facility] Neutrophils Absolute 1.38(L) 1.60 - 6.10 10*3/uL LAB HEMATOLOGY METHOD 08/18/2021 11:[address] EDT [facility] Lymphocytes Absolute 0.39(L) 1.20 - 3.90 10*3/uL LAB HEMATOLOGY METHOD 08/18/2021 11:08 AM EDT [facility] Monocytes Absolute 0.38 0.30 - 0.90 10*3/uL LAB HEMATOLOGY METHOD 08/18/2021 11:08 AM EDT [facility] Eosinophils Absolute 0.03 0.00 - 0.50 10*3/uL LAB HEMATOLOGY METHOD 08/18/2021 11:08 AM EDT [facility] Basophils Absolute 0.00 0.00 - 0.10 10*3/uL LAB HEMATOLOGY METHOD 08/18/2021 11:08 AM EDT [facility] Immature Granulocytes Absolute 0.01 0.00 - 0.06 10*3/uL LAB HEMATOLOGY METHOD 08/18/2021 11:08 AM EDT [facility] Blood Venous blood specimen / Unknown Venipuncture / Unknown 08/18/2021 9:43 AM EDT 08/18/2021 10:55 AM EDT Narrative [facility] - 08/18/2021 11:08 AM EDT Therapeutic decision making should be based on absolute values, rather than percentages. 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 documented in this encounter Additional Health Concerns Assessment Noted Time A fall risk assessment has been complete d for the patient 08/18/2021 9:25 AM EDT documented as of this encounter Care Teams Lehr Loader Relationship Specialty Start Date End Date Michele Wright MD [address] [place] [address] PCP - General 10/11/20 Edgar Szymanski MD 800 [facility] [address] [place] [address] Radiation Oncologist Radiation Therapy 03/14/20 4 Shun Hurst MD [address] [place] [address] Surgeon Neurosurgery 02/24/21 Divine Carpenter MD [address] Diane Zuniga [facility] [address] [place] [address] Medical Oncologist Medical Oncology 06/13/21 documented as of this encounter
--- OUTSIDE RECORDS SUMMARY | 2024-05-03 13:40 | XMS_ITS | Encounter Summary ---
Author Organization [facility] Address [address] [place] [address] Care Team Providers Care Hedge Fund Manager Name Role Phone Michele Wright MD Primary Care Provider + [phone] Edgar Szymanski MD Unavailable [phone] Shun Hurst MD Unavailable [phone] Divine Carpenter MD Unavailable [phone] Reason for Visit * Reason Comments Labs Encounter Details Date Type Department Care Team (Latest Contact Info) Description 08/14/2021 12:00 PM EDT Clinical Support Pav [facility] Head[facility] Neck & Respiratory [address], [address]nd [place] [address] 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 Pt left accessed to go to CT w contrast. documented in this encounter Plan of Treatment Upcoming Encounters Date Type Department Care Team (Late st Contact Info) Description 07/17/2024 12:30 PM EST Clinical Support Pav [facility] Head, Neck & Respiratory [address] [facility], 2nd [place] [address] 07/17/2024 1:30 PM EST Appointment PAV G Radiology [address] [place] [address] 07/20/2024 2:50 PM EST Office Visit Pav CC Head, Neck & Respiratory [address] [facility], 2nd [place] [address] Divine Carpenter MD 800 [facility] Diane Rosasson [address] [place] [address] documented as of this encounter Procedures Procedure Name Priority Date/Time Associated Diagnosis Comments CBC WITH AUTO DIFFERENTIAL Routine 08/14/2021 12:44 PM EDT Secondary malignant neoplasm of chest wall (CMS/HCC) TSH Routine 08/14/2021 12:44 PM EDT Secondary malignant neoplasm of chest wall (CMS/HCC) COMPREHENSIVE METABOLIC PANEL, PLASMA Routine 08/14/2021 12:44 PM EDT Secondary malignant neoplasm of chest wall (CMS/HCC) documented in this encounter Results * TSH (08/14/2021 12:44 PM EDT) Thyroid Stimulating Hormone, Plasma 2.40 0.40 - 4.20 uIU/mL 08/14/2021 2:16 PM EDT [facility] Blood Blood sample taken from central line / Unknown Venipuncture / Unknown 08/14/2021 12:44 PM EDT 08/14/2021 1:38 PM EDT us Divine Carpenter MD LAB BLOOD ORDERABLES Final R esult [facility] [address] [place] [address] * (ABNORMAL) Comprehensive Metabolic Panel, Plasma (08/14/2021 12:44 PM EDT) [facility] Glucose, Plasma 136(H) 74 - 99 mg/dL 08/14/2021 2:16 PM EDT [facility] BUN, Plasma 11 7 - 21 mg/dL 08/14/2021 2:16 PM EDT [facility] Creatinine, Plasma 0.73(L) 0.80 - 1.30 mg/dL 08/14/2021 2:16 PM EDT [facility] BUN/Creatinine Ratio 15 08/14/2021 2:16 PM EDT [facility] Sodium, Plasma 137 136 - 145 mmol/L 08/14/2021 2:16 PM EDT [facility] Potassium, Plasma 3.7 3.7 - 4.8 mmol/L 08/14/2021 2:16 PM EDT [facility] Comment:Reference range for Serum potassium is 0.2 to 0.5 mmol/L higher than Plasma range. Chloride, Plasma 99 97 - 107 mmol/L 08/14/2021 2:16 PM EDT [facility] CO2, Plasma 29 22 - 29 mmol/L 08/14/2021 2:16 PM EDT [facility] Anion Gap 9 6 - 16 mmol/L 08/14/2021 2:16 PM EDT [facility] Total Calcium, Plasma 9.0 8.9 - 10.2 mg/dL 08/14/2021 2:16 PM EDT [facility] Total Protein 6.6 6.3 - 7.9 g/dL 08/14/2021 2:16 PM EDT [facility] Albumin, Plasma 4.1 3.5 - 5.2 g/dL 08/14/2021 2:16 PM EDT [facility] AST, Plasma 14 12 - 40 U/L 08/14/2021 2:16 PM EDT [facility] ALT, Plasma 9(L) 11 - 41 U/L 08/14/2021 2:16 PM EDT [facility] Alkaline Phosphatase, Plasma 78 40 - 115 U/L 08/14/2021 2:16 PM EDT [facility] Total Bilirubin, Plasma 0.4 0.2 - 1.1 mg/dL 08/14/2021 2:16 PM EDT [facility] eGFR >60 >60 mL/min/1.7 3m*2 08/14/2021 2:16 PM EDT [facility] Comment:eGFR = estimated GFR ; eGFR units = mL/min/1.73 sq meters Chronic Kidney Disease is considered if eGFR <60 mL/min/1.73 sq meters Kidney failure is considered if eGFR is <15 mL/min/1.73 sq meters. eGFR assumes steady state plasma creatinine concentration; not applicable if renal function is rapidly changing or patient is on dialysis. eGFR, if AFR/AM >60 >60 mL/min/1.7 3m*2 08/14/2021 2:16 PM EDT [facility] Comment:eGFR = estimated GFR ; eGFR units = mL/min/1.73 sq meters Chronic Kidney Disease is considered if eGFR <60 mL/min/1.73 sq meters Kidney failure is considered if eGFR is <15 mL/min/1.73 sq meters. eGFR assumes steady state plasma creatinine concentration; not applicable if renal function is rapidly changing or patient is on dialysis. Blood Blood sample taken from central line / Unknown Venipuncture / Unknown 08/14/2021 12:44 PM EDT 08/14/2021 1:38 PM EDT us Divine Carpenter MD LAB BLOOD ORDERABLES Final R esult [facility] [address] [place] [address] * (ABNORMAL) CBC and Differential (08/14/2021 12:44 PM EDT) WBC Count 2.15(L) 3.70 - 10.30 10*3/uL LAB HEMATOLOGY METHOD 08/14/2021 4:03 PM EDT [facility] RBC Count 3.09(L) 4.60 - 6.10 10*6/uL LAB HEMATOLOGY METHOD 08/14/2021 4:03 PM EDT [facility] HGB 9.7(L) 13.7 - 17.5 g/dL LAB HEMATOLOGY METHOD 08/14/2021 4:03 PM EDT [facility] HCT 29.7(L) 40.0 - 51.0 % LAB HEMATOLOGY METHOD 08/14/2021 4:03 PM EDT [facility] Platelet Count 59(L) 155 - 369 10*3/uL LAB HEMATOLOGY METHOD 08/14/2021 4:03 PM EDT [facility] MCV 96 79 - 98 fL LAB HEMATOLOGY METHOD 08/14/2021 4:03 PM EDT [facility] MCH 31.4 26.0 - 32.0 pg LAB HEMATOLOGY METHOD 08/14/2021 4:03 PM EDT [facility] MCHC 32.7 30.7 - 35.5 g/dL LAB HEMATOLOGY METHOD 08/14/2021 4:03 PM EDT [facility] RDW 15.9(H) 11.5 - 14.5 % LAB HEMATOLOGY METHOD 08/14/2021 4:03 PM EDT [facility] MPV LAB HEMATOLOGY METHOD 08/14/2021 4:03 PM EDT [facility] Comment:Not Measured nRBC 0.0 <=0.0 per 100 WBCs LAB HEMATOLOGY METHOD 08/14/2021 4:03 PM EDT [facility] Differential Type Automated LAB HEMATOLOGY METHOD 08/14/2021 4:03 PM EDT [facility] Neutrophils % 67.0 % LAB HEMATOLOGY METHOD 08/14/2021 4:03 PM EDT [facility] Lymphocytes % 16.0 % LAB HEMATOLOGY METHOD 08/14/2021 4:03 PM EDT [facility] Monocytes % 14.0 % LAB HEMATOLOGY METHOD 08/14/2021 4:03 PM EDT [facility] Eosinophils % 1.0 % LAB HEMATOLOGY METHOD 08/14/2021 4:03 PM EDT [facility] Basophils % 1.0 % LAB HEMATOLOGY METHOD 08/14/2021 4:03 PM EDT [facility] Immature Granulocytes % 1.0 % LAB HEMATOLOGY METHOD 08/14/2021 4:03 PM EDT [facility] Neutrophils Absolute 1.48(L) 1.60 - 6.10 10*3/uL LAB HEMATOLOGY METHOD 08/14/2021 4:03 PM EDT [facility] Lymphocytes Absolute 0.35(L) 1.20 - 3.90 10*3/uL LAB HEMATOLOGY METHOD 08/14/2021 4:03 PM EDT [facility] Monocytes Absolute 0.29(L) 0.30 - 0.90 10*3/uL LAB HEMATOLOGY METHOD 08/14/2021 4:03 PM EDT [facility] Eosinophils Absolute 0.01 0.00 - 0.50 10*3/uL LAB HEMATOLOGY METHOD 08/14/2021 4:03 PM EDT [facility] Basophils Absolute 0.01 0.00 - 0.10 10*3/uL LAB HEMATOLOGY METHOD 08/14/2021 4:03 PM EDT [facility] Immature Granulocytes Absolute 0.01 0.00 - 0.06 10*3/uL LAB HEMATOLOGY METHOD 08/14/2021 4:03 PM EDT [facility] Blood Blood sample taken from central line / Unknown Venipuncture / Unknown 08/14/2021 12:44 PM EDT 08/14/2021 1:45 PM EDT Narrative [facility] - 08/14/2021 4:03 PM EDT Therapeutic decision making should be based on absolute values, rather than percentages. us Divine Carpenter MD LAB BLOOD ORDERABLES Final R esult [facility] [address] [place] [address] documented in this encounter Visit Diagnoses Diagnosis Secondary malignant neoplasm of chest wall (CMS/HCC)- Primary documented in this encounter Additional Health Concerns Assessment Noted Time A fall risk assessment has been complete d for the patient 07/28/2021 8:32 AM EST documented as of this encounter Care Teams Hedge Fund Manager Relationship Specialty Start Date End Date Michele Wright MD [address] [place] [address] PCP - General 10/11/20 Edgar Szymanski MD 800 [facility] [address] [place] [address] Radiation Oncologist Radiation Therapy 03/14/20 4 Shun Hurst MD [address] [facility] [address] [place] [phone] Surgeon Neurosurgery 02/24/21 Divine Carpenter MD 800 [facility] [address] [place] [address] Medical Oncologist Medical Oncology 06/13/21 documented as of this encounter
--- OUTSIDE RECORDS SUMMARY | 2024-05-03 13:40 | XMS_ITS | Encounter Summary ---
Author Organization [facility] Address [address] [place], [place] [address] Care Team Providers Care Teradata Solution Architect Name Role Phone Michele Wright MD Primary Care Provider + [phone] Edgar Szymanski MD Unavailable [phone] Shun Hurst MD Unavailable [phone] Divine Carpenter MD Unavailable [phone] Reason for Visit * Reason Comments Med Refill Encounter Details Date Type Department Care Team (Late st Contact Info) Description 08/13/2021 Refill [facility] H Infusion 800 [place] [address] Letty Prakash PA 800 [facility] [address] [place] [address] Social History Tobacco Use Types Packs/Day Years [...] Pav CC Head, Neck & Respiratory 800 [facility], 2nd [place] [address] 07/17/2024 1:30 PM EST Appointment PAV G Radiology [address] [place] [address] 07/20/2024 2:50 PM EST Office Visit Pav CC Head, Neck & Respiratory [address] [facility], 2nd [place] [address] Divine Carpenter MD [address] [facility] [address] [place] [address] documented as of this encounter Visit Diagnoses Not on filedocumented in this encounter Additional Health Concerns Assessment Noted Time A fall risk assessment has been complete d for the patient 07/28/2021 8:32 AM EST documented as of this encounter Care Teams Teradata Solution Architect Relationship Specialty Start Date End Date Michele Wright MD [address] [place] [address] PCP - General 10/11/20 Edgar Szymanski MD 800 [facility] [address] [place] [address] Radiation Oncologist Radiation Therapy 03/14/20 4 Shun Hurst MD [address] [facility] [address] [place] [address] Surgeon Neurosurgery 02/24/21 Divine Carpenter MD [address] [facility] Diane Rosasson [facility] [address] [place] [address] Medical Oncologist Medical Oncology 06/13/21 documented as of this encounter
--- OUTSIDE RECORDS SUMMARY | 2024-05-03 13:40 | XMS_ITS | Encounter Summary ---
Author Organization [facility] Address [address] [place] [address] Care Team Providers Care Stain Remover Name Role Phone Michele Wright MD Primary Care Provider + [phone] Edgar Szymanski MD Unavailable [phone] Shun Hurst MD Unavailable [phone] Divine Carpenter MD Unavailable [phone] Encounter Details Date Type Department Care Team (Latest Contact Info) Description 07/30/2021 Travel Social History Tobacco Use Types Packs/Day [...] Pav CC Head, Neck & Respiratory 800 [facility], [address] [place] [address] 07/17/2024 1:30 PM EST Appointment PAV G Radiology [address] [place] [address] 07/20/2024 2:50 PM EST Office Visit Pav CC Head, Neck & Respiratory [address] [facility], [address] [place] [address] Divine Carpenter MD 800 [facility] Diane Zuniga [facility] [address] [place] [address] documented as of this encounter Visit Diagnoses Not on filedocumented in this encounter Additional Health Concerns Assessment Noted Time A fall risk assessment has been complete d for the patient 07/28/2021 8:32 AM EST documented as of this encounter Care Teams Stain Remover Relationship Specialty Start Date End Date Michele Wright MD [address] [place] [address] PCP - General 10/11/20 Edgar Szymanski MD 800 [facility] [address] [place] [address] Radiation Oncologist Radiation Therapy 03/14/20 4 Shun Hurst MD [address] [facility] [address] [place] [address] Surgeon Neurosurgery 02/24/21 Divine Carpenter MD 800 [facility] Diane Zuniga [facility] [address] [place] [address] Medical Oncologist Medical Oncology 06/13/21 documented as of this encounter
--- OUTSIDE RECORDS SUMMARY | 2024-05-03 13:40 | XMS_ITS | Encounter Summary ---
Author Organization [facility] Address [address] [place], [place] [id number] Care Team Providers Care Lapel Stitcher Name Role Phone Michele Wright MD Primary Care Provider + [phone] Edgar Szymanski MD Unavailable [phone] Shun Hurst MD Unavailable [phone] Divine Carpenter MD Unavailable [phone] Reason for Visit * Reason Onset Date Comments HCN - Patient Message 11/03/2021 Encounter Details Date Type Department Care Team (Late st Contact Info) Description 11/03/2021 Telephone [facility] 800 [place] [address] Divine Carpenter MD [address] [address] HCN - Patient Message Social History Tobacco [...] Telephone Encounter - Faviola Kelly Ugo - 11/03/2021 11:44 AM EDT Returned call to pt contact to inform her there were no appts today for Jayden. The ones that were scheduled for today were for Masood and they were cancelled due to the contrast shortage. Pt contactasked if pt still needs to come in 11/06/21 to see Jayden even though he did not get the scan. I informed pt contact that I will clarify with nurse to see if Jayden will still see pt without the scan of the neck. Pt contact stated if they do not hear anything back about rescheduling appr she will keep appt on 12/06/21 as scheduled. * Telephone Encounter - Jacki Ruby I - 11/03/2021 8:11 AM EDT Patient Phone Message Reason for Call: patient called 3 times wanting to make sure they do not have any appts today. Please call to reassure them. Best contact number and optimal time of day to reach caller: [phone] Note: Please do not reply to this [...] & Respiratory [address] [place] [address] 07/17/2024 1:30 PM EST Appointment [facility] G Radiology [address] [place] [address] 07/20/2024 2:50 PM EST Office Visit Pav CC Head, Neck & Respiratory 800 [facility], [address]nd [place] [address] Divine Carpenter MD 800 [facility] Efrain [facility] [address] [place] [address] documented as of this encounter Visit Diagnoses Not on filedocumented in this encounter Additional Health Concerns Assessment Noted Time A fall risk assessment has been complete d for the patient 08/18/2021 9:25 AM EDT documented as of this encounter Care Teams Lapel Stitcher Relationship Specialty Start Date End Date Michele Wright MD [address] [place] [address] PCP - General 10/11/20 Edgar Szymanski MD 800 [facility] [address] [place] [address] Radiation Oncologist Radiation Therapy 03/14/20 4 Shun Hurst MD [address] [facility] [address] [place] [address] Surgeon Neurosurgery 02/24/21 Divine Carpenter MD 800 [facility] Diane Zuniga [facility] [address] [place] [address] Medical Oncologist Medical Oncology 06/13/21 documented as of this encounter
--- OUTSIDE RECORDS SUMMARY | 2024-05-03 13:41 | XMS_ITS | Encounter Summary ---
Author Organization Healthcare Address [address] [place] [address] Care Team Providers Care Street Light Inspector Name Role Phone Michele Wright MD Primary Care Provider + [phone] Edgar Szymanski MD Unavailable [phone] Shun Hurst MD Unavailable [phone] Divine Carpenter MD Unavailable [phone] Encounter Details Date Type Department Care Team (Latest Contact Info) Description 06/30/2021 Travel Social History Tobacco Use Types Packs/Day Years Used Date Smoking Tobacco: Former Cigarettes Q uit: 2000 Smokeless Tobacco: Never Alcohol Use Standard Drinks/Week Comments Not Currently 0 (1 standard drink = 0.6 oz pure alcohol) Alcoholic Drinks/day: Quit consuming alcohol in remote past PHQ-2 Answer Date Recorded Patient Health Questionnaire-2 Score 0 06/30/2021 Sex and Gender Information Value Date Recorded [...] have Coronavirus / COVID-19? No / Unsure 06/30/2021 8:58 AM EST documented as of this encounter Plan of Treatment Upcoming Encounters Date Type Department Care Team ([facility] st Contact Info) Description 07/17/2024 12:30 PM EST Clinical Support Pav CC Head, Neck & Respiratory 800 [facility], 2nd [place] [address] 07/17/2024 1:30 PM EST Appointment PAV G Radiology [address] [place] [address] 07/20/2024 2:50 PM EST Office Visit Pav CC Head, Neck & Respiratory [address] [place] [address] Divine Carpenter MD 800 [facility] Diane Zuniga [facility] [address] [place] [address] documented as of this encounter Visit Diagnoses Not on filedocumented in this encounter Additional Health Concerns Infection Onset Date Last Indicated Resolved Time COVID 19 (Confirmed) Comment:IPAC has verified patient has a COVID-19 positive result. A chart review has been completed, EPI PUI has been completed and sent to appropriate Health Dept. IPAC Freight Inspector: Doyle 06/12/2021 06/12/2021 07/03/2021 5: 23 AM EST Assessment Noted Time A fall risk assessment has been complete d for the patient 06/30/2021 9:14 AM EST documented as of this encounter Care Teams Street Light Inspector Relationship Specialty Start Date End Date Michele Wright MD [address] [place] [address] PCP - General 10/11/20 Edgar Szymanski MD 800 [facility] [address] [place] [address] Radiation Oncologist Radiation Therapy 03/14/20 4 Shun Hurst MD [address] [facility] [address] [place] [address] Surgeon Neurosurgery 02/24/21 Divine Carpenter MD [address] Rosasson [facility] [address] [place] [address] Medical Oncologist Medical Oncology 06/13/21 documented as of this encounter
--- OUTSIDE RECORDS SUMMARY | 2024-05-03 13:41 | XMS_ITS | Encounter Summary ---
Author Organization [facility] Address [address] [place], [place] [address] Care Team Providers Care Wound Specialist Name Role Phone Michele Wright MD Primary Care Provider + [phone] Edgar Szymanski MD Unavailable [phone] Shun Hurst MD Unavailable [phone] Divine Carpenter MD Unavailable [phone] Reason for Visit * Reason Comments Med Refill Encounter Details Date Type Department Care Team (Late st Contact Info) Description 07/16/2021 Refill [facility] H Infusion 800 [place] [address] Letty Prakash PA 800 [facility] [address] [place] [address] Social History Tobacco Use Types Packs/Day Years [...] have Coronavirus / COVID-19? No / Unsure 07/15/2021 1:54 PM EST documented as of this encounter Plan of Treatment Upcoming Encounters Date Type Department Care Team (Late st Contact Info) Description 07/17/2024 12:30 PM EST Clinical Support Pav CC Head, Neck & Respiratory 800 [facility], 2nd [place] [address] 07/17/2024 1:30 PM EST Appointment PAV G Radiology [address] [place] [address] 07/20/2024 2:50 PM EST Office Visit Pav CC Head, Neck & Respiratory 800 [facility], 2nd [place] [address] Divine Carpenter MD 800 [facility] [address] [place] [address] documented as of this encounter Visit Diagnoses Not on filedocumented in this encounter Additional Health Concerns Assessment Noted Time A fall risk assessment has been complete d for the patient 07/05/2021 1:53 PM EST documented as of this encounter Care Teams Wound Specialist Relationship Specialty Start Date End Date Michele Wright MD [address] [place] [address] PCP - General 10/11/20 Edgar Szymanski MD [address] [facility] [address] [place] [address] Radiation Oncologist Radiation Therapy 03/14/20 4 Shun Hurst MD [address] [facility] [address] [place] [address] Surgeon Neurosurgery 02/24/21 Divine Carpenter MD 800 [facility] Diane Rosasson [facility] [address] [place] [address] Medical Oncologist Medical Oncology 06/13/21 documented as of this encounter
--- OUTSIDE RECORDS SUMMARY | 2024-05-03 13:41 | XMS_ITS | Encounter Summary ---
Author Organization Healthcare Address [address] [id number] Care Team Providers Care Environmental Sampling Technician Name Role Phone Michele Wright MD Primary Care Provider [phone] Edgar Szymanski MD Unavailable [phone] Shun Hurst MD Unavailable [phone] Divine Carpenter MD Unavailable [phone] Reason for Visit * Auth/Cert Specialty Diagnoses / Procedures Referred By Contac t Referred To Contact Diagnoses Dysphagia dysphagia Procedures WA ESOPHAGOSCOPY FLEXIBLE TRANSORAL DIAGNOSTIC WA ESOPHAGOSCOPY FLEXIBLE TRANSORAL W SUBMUCOUS INJ WA ESOPHAGOSCOPY FLEXIBLE TRANSORAL WITH BIOPSY WA ESOPHAGOSCOPY FLEX BALLOON DILAT <30 MM DIAM WA ESOPHAGOSCOPY DILATE ESOPHAGUS BALLOON 30 MM FLEXIBLE ESOPHAGOSCOPY WITH BALLOON DILATION, POSS INJECTION OF STEROIDS, POSS ESOPHGEAL SUPER DILATION Gil Hernandez MD [address] [facility] [address] [place] [address] Phone: tel: fax: [facility] [address] [place] [address] Phone: tel: Referral ID Status Reason Start Date Expiration Date Visits Re quested Visits Authorized [id number] 1 1 Encounter Details Date Type Department Care Team (Late st Contact Info) Description 07/24/2021 10:11 AM EST Anesthesia Event [facility] [address] [place] [address] Dave Vila MD [address] [place] [address] Dilshad Lovecikian Garcia, [employer] UNDERWRITER [address] [place] [address] Anesthesia Record Procedure Summary Procedure Name Responsible Anesthesiologist Anesthesia Start Time Anesthesia Stop Time FLEXIBLE ESOPHAGOSCOPY WITH BALLOON DILATION, POSS INJECTION OF STEROIDS, POSS ESOPHGEAL SUPER DILATION Dave Vila MD 07/24/21 1011 07/24/21 1051 Events Date Time Event Comment 07/24/2021 1010 In Room 1011 An Start 1011 An Start Data 1016 An Induction The patient was reevaluated immediately before moderate or deep sedation use and before anesthesia induction. 1017 An Intubation 1018 Anesthesia Ready 1022 Proc Start 1044 Proc Fin 1046 An Extubation 1049 an stop data 1051 Out of Room 1051 Handoff to Receiving I compl eted my handoff to the receiving clinician during which we: 1. Identified the patient 2. Identified the responsible provider 3. Reviewed the pertinent medical history 4. Discussed the surgical course 5. Reviewed intra-op anesthesia management and issues during anesthesia 6. Set expectations for post-procedure period 7. Allowed opportunity for questions and acknowledgement of understanding. 1051 An Stop Meds Name Total ondansetron (Zofran) injection 2 mg/mL 4 mg glycopyrrolate 0.2 MG/ML 0.4 mcg dexamethasone (Decadron) injection 4 mg/ mL 8 mg fentaNYL (Sublimaze) injection 50 mcg/mL 100 mcg propofol (Diprivan) injection 10 mg/mL 1 00 mg lidocaine PF (Xylocaine-MPF) 2% 60 mg ePHEDrine injection prefilled syringe 5 mg/mL 10 mg ampicillin-sulbactam (Unasyn) vial 3 g 3 g lactated Ringer's infusion 500 mL * Agents Name O2 Air Sevoflurane Inspired Sevoflurane N2O Inspired N2O * Blood No blood administrations on file. Lines, Drains, and Airways Type Details Placement Removal Single Lumen Implantable Port 03/06/21; 1229; Yes; 03/06/21; Other (Comment); Yes; Yes; Left; Chest; Kwabena Waits 03/06/21 1229 by Radha Norwood RN Wound 07/24/21; Throat 07/24/21 0000 Oma Bermudez RN Surgical Airway Placement Date: 06/12/21; Placement Time: 1300; Type: Laryngectomy; Size(mm): 9; Removal Date: 07/24/21; Removal Time: 1046 06/12/21 1300 by Angie Mendoza RN 07/24/21 1046 by Rosalia Martinez CRNA Peripheral IV Placement Date: 07/24/21; Placement Time: 1000; Catheter Size: 20 G; Orientation: Posterior, Right; Location: Hand; Site Prep: Chlorhexidine ; Local Anesth: Injectable; Technique: Anatomical landmarks; Insertion Attempts: 1; Patient Tolerance: Tolerated well; Removal Date: 07/24/21; Removal Time: 1135; Removal Reason: Discharge 07/24/21 1000 by Hernan Silvestre RN 07/24/21 1135 by Odette Mcgrath RN documented in this encounter Social History Tobacco [...] Miscellaneous Notes * Anesthesia Postprocedure Evaluation - Rosalia Martinez CRNA - 07/24/2021 10:56 AM EST Patient: Anibal Barreto Anesthesia Type: general Vitals Value Taken Time BP 124/67 07/24/21 1055 Temp 36.7 07/24/21 1056 Pulse 84 07/24/21 1055 Resp 10 07/24/21 1055 SpO2 98 % 07/24/21 1055 Vitals shown include unvalidated device data. Anesthesia Post Evaluation Patient location during evaluation: PACU Patient participation: complete - patient participated Level of consciousness: baseline Pain management: adequate (pain score 0-3) Airway patency: natural airway Cardiovascular status: acceptable Respiratory status: acceptable Hydration status: acceptable No complications documented. * Anesthesia Procedure Notes - Rosalia Martinez CRNA - 07/24/2021 10:27 AM EST Associated Order(s): Airway Airway Date/Time: 07/24/2021 10:17 AM Urgency: elective Airway not difficult General Information and Staff Patient location during procedure: OR Anesthesiologist: Dave Vila MD [employer]: Rosalia Martinez CRNA Performed: DIANE Indications and Patient Condition Indications for airway management: anesthesia Spontaneous Ventilation: absent Preoxygenated: yes Patient position: sniffing Mask difficulty assessment: 0 - not attempted Final Airway Details Final airway type: other Number of attempts at approach: 1 Number of other approaches attempted: 0 Additional Comments Mature trach stoma, exchange with 5.0 STRIP PICKER. * Anesthesia Preprocedure Evaluation - Dave Vila MD - 07/21/2021 9:34 AM EST Patient: Anibal Barreto Procedure Information Date/Time: 07/24/21 0950 Procedure: FLEXIBLE ESOPHAGOSCOPY WITH BALLOON DILATION, POSS INJECTION OF STEROIDS, POSS ESOPHGEALSUPER DILATION (N/A ) Location: [facility] Surgeons: Gil Hernandez MD Relevant Problems Anesthesia last GA 03/2021 @ ; trach with pasy leelee valve in place (+) Aspiration of liquid Cardio (+) DVT (deep venous thrombosis) (CMS/HCC) (+) Hypertension (+) WPW (Glshj-Gidgkiwqz-Julsv syndrome) (hx of tachycardia arund 2008 - nothing was ever done and he reports no tachycardia for >5 years. 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 male who presents with No Principal Problem: There is no principal problem currently on the Problem List. Please update the Problem List and refresh. now scheduled for FLEXIBLE ESOPHAGOSCOPY WITH BALLOON DILATION, POSS INJECTION OF STEROIDS, POSS ESOPHGEAL SUPER DILATION (N/A). ALLERGIES Allergies Allergen Reactions ??? Cetuximab Anaphylaxis SOA, hypotension, after 9 ml of drug ??? Docetaxel Rash, Shortness of breath and Unknown Patient very dyspnic, flushed, severe back pain. Patient very dyspnic, flushed, severe back pain. Patient very dyspnic, flushed, severe back pain. ??? Methadone Rash, Other and Unknown NPO STATUS AIRWAY HISTORY Anesthesia Evaluation Past Medical History: Diagnosis Date ??? Chronic pain disorder neck/face post radiation/cancer. ??? COVID-19 06/12/21 ??? Dysphagia 2020 food must be very small to swallow , no issues with swallowing liquids ??? Essential (primary) hypertension HTN (hypertension) ??? Heartburn Heart burn ??? 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 Laryngeal cancer ([facility]/HCC) s/p chemo/radiation ??? Neoplasm related pain 10/14/2020 [...] disorder ??? Unspecified osteoarthritis, unspecified site Arthritis MEDICATIONS Outpatient Medications Prior to Admission Medication Sig Dispense Refill Last Dose ??? albuterol 108 (90 Base) MCG/ACT inhaler Inhale 2 puffs every 4 (four) hours if needed for wheezing or shortness of breath. 18 g 11 ??? ALPRAZolam (Xanax) 1 MG tablet Take 1 mg by mouth 2 (two) times a day. ??? dexamethasone (Decadron) 6 MG tablet Take 1 tablet (6 mg total) by mouth 1 (one) time each day for 6 doses. 6 tablet 0 ??? diphenoxylate-atropine (Lomotil) 2.5-0.025 MG tablet Take 1 tablet by mouth 4 (four) times a day if needed for diarrhea. ??? fluconazole (Diflucan) 100 MG tablet Take 1 tablet (100 mg total) by mouth 1 (one) time each day for 14 days. 14 tablet 0 ??? gabapentin (Neurontin) 600 MG tablet Take 1 tablet (600 mg total) by mouth 4 (four) times a day. 120 tablet 1 ??? hydroCHLOROthiazide (HYDRODiuril) 25 MG tablet Take 1 tablet (25 mg total) by mouth 1 (one) time each day. 30 tablet 11 ??? levothyroxine (Synthroid, Levoxyl) 150 MCG tablet Take 150 mcg by mouth 1 (one) time each day before breakfast. ??? lisinopril 5 MG tablet Take 1 tablet (5 mg total) by mouth 1 (one) time each day. 30 tablet 11 ??? loperamide (Imodium) 2 MG capsule Take 2 mg by mouth 4 (four) times a day if needed for diarrhea. ??? morphine (MSIR) 30 MG tablet Take 2 tablets (60 mg total) by mouth 2 (two) times a day. 120 tablet 0 ??? omeprazole (PriLOSEC) [address] capsule TAKE 1 CAPSULE BY MOUTH EVERY DAY 90 capsule 2 ??? ondansetron (Zofran) 8 MG tablet Take 1 tablet (8 mg total) by mouth 2 (two) times a day. Starting day after chemo for 3 days. 30 tablet 5 ??? oxyCODONE (Roxicodone) 30 MG immediate release tablet Take 30 mg by mouth every 3 (three) hoursif needed for severe pain. ??? prochlorperazine (Compazine) 10 MG tablet Take 1 tablet (10 mg total) by mouth every 6 (six) hours if needed for nausea or vomiting. 30 tablet 5 ??? tamsulosin (Flomax) 0.4 MG 24 hr capsule TAKE 1 CAPSULE BY MOUTH EVERY NIGHT TO HELP WITH URINEFLOW 30 capsule 0 Current Outpatient Medications Medication Instructions ??? albuterol 108 (90 Base) MCG/ACT inhaler 2 puffs, Inhalation, Every 4 hours PRN ??? ALPRAZolam (XANAX) 1 mg, Oral, 2 times daily ??? dexamethasone (DECADRON) 6 mg, Oral, Daily ??? diphenoxylate-atropine (Lomotil) 2.5-0.025 MG tablet 1 tablet, Oral, 4 times daily PRN ??? fluconazole (DIFLUCAN) 100 mg, Oral, Daily ??? gabapentin (NEURONTIN) 600 mg, Oral, 4 times daily ??? hydroCHLOROthiazide (HYDRODIURIL) 25 mg, Oral, Daily ??? levothyroxine (SYNTHROID, LEVOXYL) 150 mcg, Oral, Daily before breakfast ??? lisinopril 5 mg, Oral, Daily ??? loperamide (IMODIUM) 2 mg, Oral, 4 times daily PRN ??? morphine (MSIR) 60 mg, Oral, 2 times daily ??? omeprazole (PriLOSEC) [address] capsule TAKE 1 CAPSULE BY MOUTH EVERY DAY ??? ondansetron (ZOFRAN) 8 mg, Oral, 2 times daily, Starting day after chemo for 3 days. ??? oxyCODONE (ROXICODONE) 30 mg, Oral, Every 3 hours PRN ??? prochlorperazine (COMPAZINE) 10 mg, Oral, Every 6 hours PRN ??? tamsulosin (Flomax) 0.4 MG 24 hr capsule TAKE 1 CAPSULE BY MOUTH EVERY NIGHT TO HELP WITH URINEFLOW Scheduled ??? acetaminophen, 975 mg, Oral, Once ??? lactated Ringer's, 100 mL/hr, Intravenous, Once ??? lidocaine, , , PRNs Insert peripheral IV AND Saline lock IV AND sodium chloride SURGICAL HX: Past Surgical History: Procedure Laterality Date ??? ESOPHAGEAL DILATION x2 ??? ESOPHAGOGASTRODUODENOSCOPY N/A Esophagogastroduodenoscopy from [facility] ??? FEEDING TUBE PLACEMENT N/A Now removed ??? LARYNGOSCOPY N/A Laryngoscopy from [facility] ??? LUNG SURGERY ??? OTHER SURGICAL HISTORY N/A [facility] ??? OTHER SURGICAL HISTORY N/A [facility] ??? OTHER SURGICAL HISTORY N/A [facility] ??? OTHER SURGICAL HISTORY N/A [facility] ??? TRACHEOSTOMY TUBE PLACEMENT FUNCTIONAL CAPACITY SOCIAL HX: Social History Tobacco Use ??? Smoking status: Former Smoker Quit date: 2000 Years since quittin.1 ??? Smokeless tobacco: Never Used Substance Use Topics ??? Alcohol use: Not Currently Comment: Alcoholic Drinks/day: Quit consuming alcohol in remote past ??? Drug use: Not Currently Types: Morphine OBJECTIVE DATA LABS Type and Screen No results found for: ABO, LABANTI COVID SARS CoV-2/COVID-19 RNA PCR Result Date Value Ref Range Status 07/21/2021 Not Detected Not Detected Final Lab Results Component Value Date WBC 4.59 06/30/2021 HGB 10.3 (L) 06/30/2021 HCT 31.4 (L) 06/30/2021 MCV 98 06/30/2021 PLT 132 (L) 06/30/2021 Lab Results Component Value Date GLUCOSE 120 (H) 06/30/2021 CALCIUM 9.1 06/30/2021 NA 142 06/30/2021 K 3.7 06/30/2021 CO2 26 06/30/2021 CL 103 06/30/2021 BUN 15 06/30/2021 CREATININE 0.69 (L) 06/30/2021 Diabetic Labs No results found for: HGBA1C Lab Results Component Value Date PGLU 106 (H) 06/16/2021 ABG Lab Results Component Value Date [id number] 30 (H) 11/21/2019 LACTATE 1.0 11/21/2019 Lab Results Component Value Date PH 7.31 (L) 11/21/2019 PCO2 59 (H) 11/21/2019 PO2 96 11/21/2019 [id number] 97 11/21/2019 BASEEXC 1.8 11/21/2019 [id number] 30 (H) 11/21/2019 HCTSYR 44.5 11/21/2019 NA 142 06/30/2021 KSYR 4.2 11/21/2019 CLSYR 107 03/22/2018 GLUSYR 123 (H) 11/21/2019 CAION 4.5 (L) 11/22/2019 LACTATE 1.0 11/21/2019 NPO Status > 8 hrs Physical Exam Airway Mallampati: III Mouth opening: [...] General Anesthesia plan agreed upon was: general Post operative pain planned: discuss with surgical team Induction planned: intravenous Airway management planned: general endotracheal Premedication planned: acetaminophen Anesthetic plan and risks discussed with patient. Plan discussed with EXPERIMENT[employer]. Additional Equipment Requests Tube Size: 6.0 documented in this encounter Plan of Treatment Upcoming Encounters Date Type Department Care Team (Late st Contact Info) Description 07/17/2024 12:30 PM EST Clinical Support [facility] [address] [facility] [place] [address] 07/17/2024 1:30 PM EST Appointment [facility] [address] [place] [address] 07/20/2024 2:50 PM EST Office Visit [facility] [address] [facility] [place] [address] Divine Carpenter MD [address] [facility] Diane Zuniga [facility] [address] [place] [address] documented as of this encounter Procedures Procedure Name Priority Date/Time Associated Diagnosis Comments PB ANESTHESIA PLACEHOLDER Routine 07/24/2021 10:17 AM EST documented in this encounter Results * PB ANESTHESIA PLACEHOLDER (07/24/2021 10:17 AM EST) Narrative Rosalia Martinez CRNA - 07/24/2021 10:17 AM EST Rosalia Martinez CRNA ? 07/24/2021 10:29 AM Airway Date/Time: 07/24/2021 10:17 AM Urgency: elective Airway not difficult General Information and Staff Patient location during procedure: OR Anesthesiologist: Dave Vila MD [employer]: Rosalia Martinez CRNA Performed: [employer]PER[employer] Indications and Patient Condition Indications for airway management: anesthesia Spontaneous Ventilation: absent Preoxygenated: yes Patient position: sniffing Mask difficulty assessment: 0 - not attempted Final Airway Details Final airway type: other Number of attempts at approach: 1 Number of other approaches attempted: 0 Additional Comments Mature trach stoma, exchange with 5.0 STRIP PICKER. us Dave Vila MD ANESTHESIA ORDERABLES Fin al Result documented in this encounter Visit Diagnoses Not on filedocumented in this encounter Administered Medications Inactive Administered Medications - up to 3 most recent administrations Medication Order MAR Action Action Date Dose Rate Site ampicillin-sulbactam (Unasyn) injection Intravenous, As needed, Starting on Nenita 07/24/21 at 1021, Until Nenita 07/24/21 at 1056, Routine, Anesthesia Intraprocedure Given 07/24/2021 10:21 AM EST 3 g dexamethasone (Decadron) injection Intravenous, As needed, Starting on Nenita 07/24/21 at 1016, Until Nenita 07/24/21 at 1056, Routine, Anesthesia Intraprocedure Given 07/24/2021 10:16 AM EST 8 mg ePHEDrine Sulfate prefilled syringe Intravenous, As needed, Starting on Nenita 07/24/21 at 1021, Until Nenita 07/24/21 at 1056, Routine, Anesthesia Intraprocedure Given 07/24/2021 10:24 AM EST 5 mg Given 07/24/2021 10:21 AM EST 5 mg fentaNYL (Sublimaze) injection Intravenous, As needed, Starting on Nenita 07/24/21 at 1016, Until Nenita 07/24/21 at 1056, Routine, Anesthesia Intraprocedure Given 07/24/2021 10:40 AM EST 50 mcg Given 07/24/2021 10:16 AM EST 50 mcg glycopyrrolate (Robinul) injection Intravenous, As needed, Starting on Nenita 07/24/21 at 1011, Until Nenita 07/24/21 at 1056, Routine, Anesthesia Intraprocedure Given 07/24/2021 10:16 AM EST 0.2 mcg Given 07/24/2021 10:11 AM EST 0.2 mcg lactated Ringer's infusion Intravenous, Continuous PRN, Starting on Nenita 07/24/21 at 1011, Until Nenita 07/24/21 at 1056, Routine New Bag 07/24/2021 10:11 AM EST lidocaine PF (Xylocaine) 2 % injection Intravenous, As needed, Starting on Nenita 07/24/21 at 1016, Until Nenita 07/24/21 at 1056, Routine, Anesthesia Intraprocedure Given 07/24/2021 10:16 AM EST 60 mg ondansetron (Zofran) injection Intravenous, As needed, Starting on Nenita 07/24/21 at 1016, Until Nenita 07/24/21 at 1056, Routine, Anesthesia Intraprocedure Given 07/24/2021 10:16 AM EST 4 mg propofol (Diprivan) injection Intravenous, As needed, Starting on Nenita 07/24/21 at 1016, Until Nenita 07/24/21 at 1056, Routine, Anesthesia Intraprocedure Given 07/24/2021 10:16 AM EST 10 0 mg documented in this encounter Additional Health Concerns Assessment Noted Time A fall risk assessment has been complete d for the patient 07/05/2021 1:53 PM EST documented as of this encounter Care Teams Environmental Sampling Technician Relationship Specialty Start Date End Date Michele Wright MD [address] [place] [id number] PCP - General 10/11/20 Edgar Szymanski MD [address] [facility] [address] [place] [address] Radiation Oncologist Radiation Therapy 03/14/20 4 Shun Hurst MD [address] [facility] [address] [place] [address] Surgeon Neurosurgery 02/24/21 Divine Carpenter MD [address] [facility] [address] [place] [address] Medical Oncologist Medical Oncology 06/13/21 documented as of this encounter
--- OUTSIDE RECORDS SUMMARY | 2024-05-03 13:41 | XMS_ITS | Encounter Summary ---
Author Organization Healthcare Address [address] [id number] Care Team Providers Care Vacuum Truck Driver Name Role Phone Michele Wright MD Primary Care Provider [phone] Edgar Szymanski MD Unavailable [phone] Shun Hurst MD Unavailable [phone] Divine Carpenter MD Unavailable [phone] Reason for Visit * Auth/Cert Specialty Diagnoses / Procedures Referred By Contac t Referred To Contact Diagnoses Dysphagia dysphagia Procedures LA ESOPHAGOSCOPY FLEXIBLE TRANSORAL DIAGNOSTIC LA ESOPHAGOSCOPY FLEXIBLE TRANSORAL W SUBMUCOUS INJ LA ESOPHAGOSCOPY FLEXIBLE TRANSORAL WITH BIOPSY LA ESOPHAGOSCOPY FLEX BALLOON DILAT <30 MM DIAM LA ESOPHAGOSCOPY DILATE ESOPHAGUS BALLOON 30 MM FLEXIBLE ESOPHAGOSCOPY WITH BALLOON DILATION, POSS INJECTION OF STEROIDS, POSS ESOPHGEAL SUPER DILATION Gil Hernandez MD [address] [place] [address] Phone: tel: fax: [facility] [address] [place] [address] Phone: tel: Referral ID Status Reason Start Date Expiration Date Visits Re quested Visits Authorized [id number] 1 1 Encounter Details Date Type Department Care Team (Late st Contact Info) Description 07/24/2021 8:26 AM EST - 07/24/2021 12:05 PM [facility] Hospital Encounter [facility] [address] [place] [address] Gil Hernandez MD [address] [place] [phone] Discharge Disposition: Home or Self Care Social [...] Sign Reading Time Taken Comments Blood Pressure 138/83 07/24/2021 11:15 AM EST Pulse 77 07/24/2021 11:30 AM EST Temperature 36.9 ??C (98.4 ??F) 07/24/2021 11:[address] Respiratory Rate 16 07/24/2021 11:30 AM EST Oxygen Saturation 99% 07/24/2021 11:30 AM EST Inhaled Oxygen Concentration - - Weight 90.4 kg (199 lb 4.7 oz) 07/24/2021 9:16 A M EST Height 177.8 cm (5' 10 ) 07/24/2021 9:16 AM EST Body Mass Index 28.6 07/24/2021 9:16 AM EST documented in this encounter Discharge Instructions * Discharge Instructions* Odette Mcgrath RN - 07/24/2021 11:34 AM EST Images from the original note were not included. After Hours Contact Post-Anesthesia and Postoperative Instructions () In order to have a fast and comfortable recovery at home, please follow these instructions. ?? A responsible adult must be present for you to be discharged. ?? Do not drive, drink alcohol or make important decisions for 24 hours after surgery. ?? You may feel like resting more than normal after surgery. Start slowly and be more active each day. ?? Start slowly with liquids like 7-up, tea, apple juice or broth. Eat more as your stomach allows.If you feel sick to your stomach, go back to drinking liquids. ?? You may feel some discomfort after surgery. Take the medicine as directed by your caregiver. If your medicine makes you drowsy, do not drink alcohol, drive or operate heavy equipment for at least 24 hours after use. ?? If you are taking antibiotics, take them until they are all gone even if you feel well. ?? Cover your wound or bandage when showering, unless your doctor tells you differently. ?? A small amount of drainage on your bandage is normal. Do not remove your bandage unless your doctor tells you to. Please keep track of information about the medicines you take. Follow these tips to manage your medicines. ?? Keep a list of all your medicines. Update the list when you start or stop taking a medicine. Write down changes in how you should take them. ?? Carry your medicine list with you at all times. It will be needed if you have a health emergency. ?? Give the list to your family doctor. Take the list to all your doctor visits. Call your doctor if you have any of the following ?? Temperature higher than 101.5??F ?? Chest pain or difficulty breathing ?? Stomach sickness or throwing up that does not go away ?? You cannot urinate by bedtime ?? Pain is not helped by your medicine. ?? Bandage becomes soaked with blood - Don't remove the bandage, reinforce only ?? Swelling, redness, pain or pus from incision ?? Questions or concerns about your surgery. In the event of an emergency, please go to the closest Emergency Room or call the Emergency Department at [phone]. Smoking and its health risks ?? Smoking is the most preventable cause of illness and in the [place]. Cigarettes are filled with poison that goes into the lungs as you inhale. About 440,000 people every year from illnesses caused by smoking. People who smoke earlier than those who do not smoke. ?? Heart and blood vessel disease, lung disease and ulcers are just some of the health problems that may be caused by smoking. Smoking also slows bone and wound healing and may slow your recovery from surgery. ?? For help quitting smoking, call the National Cancer Manning's Quitline toll free at or ask your doctor for help. Weight Management ?? Weighing too much is not good for your health. Being overweight increases your risk of health conditions such as heart problems, high blood pressure, type 2 diabetes, and certain types of cancer. Being overweight can also increase your risk for osteoarthritis (sz-pwo-rz-lxm-HTEV-cdj) (joint disease), sleep apnea (abnormal breathing at night) or other respiratory (breathing) problems. Being overweight may also cause a person to feel sad or be treated differently by others. ?? The best way to lose weight is to eat fewer calories and get regular exercise. Eating more calories than you need will cause you to gain weight. Try to cut down your calories by 500 calories per day. For example, cut down on one soda (about 150 calories), a small bag of regular potato chips (about 150 calories) and one chocolate bar (about 250 calories). For most people, this change will result in a slow weight loss of about one pound a week. Exercise (for example, walk, swim, or bicycle) for at least 30 minutes on most days of the week. You will be more likely to keep weight off if you make lifelong lifestyle changes. ?? Aim for a slow, steady weight loss. Losing even a small amount of weight can lower your risk of health problems. Ask your dietitian, senior health physics technician or doctor about a weight loss goal that is right for you. Safe Use of Controlled Substances Taking a medicine may be an important part of your treatment. Your body should heal faster if you take medicine safely. Some medicines are called Controlled Substances. This means their use is controlled by law. Some of these can harm you if you do not take them safely. What can I do to make sure I take my medicine safely? ?? Follow the instructions we give you for how to take your medicine. ?? We will give you an instruction sheet for each of your medicines. Ask your doctor or nurse if you do not get these instructions. ?? Some medicines make you sleepy or cloud your thinking. Do not drive, use heavy machines or do dangerous activities while taking these medicines. ?? Read the label on the bottle each time you take your medicine. ?? Do not take your medicine with alcohol or other sedatives. ?? Do not take medicine after the expiration date. ?? It is against the law to sell your medicine or share it with others. ?? Do not drive while using your medicine. How should I store my medicine? Store it in a safe place. This will keep others from taking your medicine and help you keep track of it. ?? Store controlled substances in a cabinet or container that you can lock. ?? Keep it in a place that is cool, dry and out of direct sunlight. ?? Do not leave it in the car. ?? Do not store in a refrigerator or freezer, unless your doctor tells you to. ?? Call your doctor right away if your medicine is lost or stolen. How should I dispose of medicine that is or no longer needed? You may have medicine left over that you do not need or should not take. You must dispose of it theright way to protect yourself and others. You can ask your local pharmacist how to dispose of them.You can also visit these Web sites to learn more about disposal of controlled substances: ?? Drug Enforcement Agency (MADELYN): http://www.deadiversion.[employer].gov/drug_disposal/takeback/index.htm ?? National Association of Drug Diversion Investigators (NADDI): http://rxdrugdropbox.org/ ?? [place] Office of Drug Control Policy: http://odcp.wv.gov/Prescription+Drug+Drop+Box+Sites.htm Are there concerns about or ? ?? Before you take a medicine, tell your doctor if you are or plan to get . This could harm your baby. ?? Tell your doctor if you breastfeed. Medicine in breast milk may be bad for your child. What if I have low or impaired vision? If you have vision problems, take extra care with your medicine. ?? Wear your glasses when you take your medicine. ?? Do not take medicine in the dark. What are the signs of overdose? Some controlled substances may cause breathing problems if you take more than your doctor recommends. This may lead to serious health problems or even . You and your caregivers should watch for the following signs of overdose. ?? Slurred speech, confusion or stumbling ?? Feeling dizzy or faint ?? Acting drowsy or groggy ?? Unusual snoring, gasping or snorting during sleep ?? Hard to wake up or keep awake What should I or my caregiver do if I overdose? You or your caregiver should call 911 if you have any of these problems: ?? Cannot wake up ?? Cannot talk after waking up ?? Shortness of breath, slow or light breathing, or breathing has stopped ?? Heartbeat is slow or stopped ?? Gurgling noise comes from the mouth or throat ?? Body is limp or seems lifeless ?? Face is pale or clammy ?? Fingernails or lips look blue or purple What is a KEVAN report? The Mother List is a system that tracks prescriptions of controlled substances in [place]. The KEVAN report tells your doctor if you have been prescribed controlled substances in the past. Doctors must get a KEVAN report before prescribing controlled substances. What can I do if the information in my KEVAN report is wrong? You or your doctor may contact the dispenser who reported the information to The Mother List. If the dispenser agrees that the information should be changed, he or she can fix the KEVAN report. However, the dispenser may certify that the report is correct. If that is the case, you or your doctor may then call the [place] Drug Enforcement and Professional Practices Branch at .This will start an investigation of the error. Tips for Quitting Tobacco ([place]) Tobacco and secondhand smoke can cause health problems such as cancer or heart and lung disease. They also make it harder for you to get better after an illness or surgery. Tobacco and tobacco smoke have more than 4000 chemicals. They can hurt you and those near you. Know your ???triggers?? Triggers are danger situations where you have a strong urge to use tobacco. If you know them, you can deal with them. ?? Avoid places where you will see people use tobacco. This is very important when you first start to quit. Plus, secondhand smoke is bad for you. ?? Change habits that give you the urge to use tobacco. If you smoked in the car, drink water instead. If you used tobacco after meals, try taking walks. ?? Stress, anger or sadness can cause you to crave tobacco. Fight the urge by thinking of things that make you relaxed or happy - like your favorite song. The urge will often pass in a few minutes. How to cope with nicotine withdrawal Nicotine in tobacco is very addictive. Nicotine withdrawal can put you in a bad mood and cause you to crave tobacco. This can last for weeks after you quit. There are medicines that can ease these feelings. We can help our patients fight the urge to use tobacco. While you are here, your doctor can get you medicines, nicotine patches or gum. Talk to your doctor about which one is best for you. Let us help you quit You do not have to spend a lot of money to get help. You may even find help for free. ?? Support groups: Your local health department may offer these. ?? [employer]s resources to help you quit: http://www.[facility]/TobaccoFree/ - Click on the Quit Here! tab. ?? A telephone quit line: (3-969-YCNSSRV) ?? Web sites: www.smokefree.gov, www.[employer], www.[employer].JANZZ ?? Tobacco Treatment Counselors: Call 923-521-7851. Medicare and Medicaid pay for this. ?? employees, retirees, and their spouses or sponsored dependents can get free nicotine replacement therapy and coaching. Visit www.[facility]/HR/Wellness/consults.html. ?? [facility]: Free pamphlets on quitting tobacco, secondhand smoke and other health topics. ?? Tell your doctor or nurse if you are want to know more. We can help! You can quit! It is hard to quit tobacco. Most people try to quit a few times before they stay quit for good. It will be easier to quit if you can relax and stay calm in times of stress. Quitting tobacco saves youmoney and your health! documented in this encounter Medications at Time [...] Miscellaneous Notes * Anesthesia PACU Signout - Dave Vila MD - 07/24/2021 12:04 PM EST Patient: Anibal Barreto Anesthesia Type: general Vitals Value Taken Time BP 138/83 07/24/21 1115 Temp 36.9 ??C (98.4 ??F) 07/24/21 1115 Pulse 84 07/24/21 1122 Resp 15 07/24/21 1122 SpO2 86 % 07/24/21 1122 Vitals shown include unvalidated device data. Anesthesia PACU Signout Patient location during evaluation: PACU Patient participation: complete - patient participated Level of consciousness: baseline Pain management: adequate (pain score 0-3) Airway patency: natural airway Hydration status: acceptable PONV: none Cardiovascular status: acceptable Respiratory status: acceptable Discharge Disposition: home * Op Note - Gil Hernandez MD - 07/24/2021 10:22 AM EST Operative Note: Flexible esophagoscopy with superdilation Date: 07/25/21 Location: [facility] OR Name: Anibal Barreto, : 1965, Diagnoses: Pre-op Diagnosis Dysphagia Post-op Diagnosis Dysphagia Procedure(s): Flexible esophagoscopy with esophageal super dilation and TEP change. 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 Dilated to 90 Mexican. Much improved mucosa from prior thanks to pre-op diflucan. Indications: Anibal Barreto is an 56 y.o. male who is having surgery for dysphagia. Patient with worsening dysphagia at home but with no PEG tube for assistance. Consent obtained for esophagealdilation. Narrative: Patient brought into the operating room and general anesthesia administered. Patient rotated 90 degrees to the operating team and time-out performed. 5-0 SAP PORTAL CONSULTANT placed in the stoma and EGD scope was used to visualize the esophageal opening. Tight here and 18-20mm esophageal balloon passed through the EGD scope and dilated to 20mm. Then 30 Mexican bougie passed alongside to dilate in addition. Total dilation size of 90 romansh (30mm). Esophageal mucosa normal appearing and no fungal infection or friability noted (improved from last visit to the OR). Scopes removed and patient rotated back to anesthesia for wake-up. Complications: None; patient tolerated the procedure well. Submitted by: Michele Torres MD - 07/25/2021 - 3:59 PM * H&P - Michele Torres MD - 07/24/2021 9:09 AM EST I had the pleasure of seeing Anibal Barreto today, who is a 56 y.o. male that returns to the clinic for follow-up of his swallowing. He has metastatic supraglottic squamous cell carcinoma that is currently still being treated with Dr. Carpenter at [facility] with chemotherapy for maintenance. He denies any problems with his TEP and his voice is doing ok. He has improved somewhat since his dilation2.5 months ago in the OR to 18mm in his esophagus, but still very limited in terms of solid foods. He did have a fungal infection intraop that we also biopsied, but the biopsy was normal with only scant fungal organisms and bacterial species seen. ? Visit Vitals BP 133/83 Pulse 83 Ht 1.778 m (5' 10 ) Wt 86.2 kg (190 lb) BMI 27.26 kg/m?? Smoking Status Former Smoker BSA 2.06 m? Allergies Allergen Reactions ??? Cetuximab Anaphylaxis ? SOA, hypotension, after 9 ml of drug ??? Docetaxel Rash, Shortness of breath and Unknown ? Patient very dyspnic, flushed, severe back pain. Patient very dyspnic, flushed, severe back pain. Patient very dyspnic, flushed, severe back pain. ? Methadone Rash, Other and Unknown ? entire 14 point ROS was negative with the exception of those listed in the HPI ? General: patient is awake, nontoxic appearing, and [...] stridor Neuro: CN II-XII intact, gait normal ? A/P To OR for dilation today. Will send him in some diflucan to take for the 2 weeks prior to surgery to make sure he is clear of any fungal infection prior to surgery so that there is less irritation and inflammation in there. Consented today for esophageal dilation, possible super dilation. Cosigned by Gil Hernandez MD at 07/27/2021 12:28 PM EST Associated attestation - Gil Hernandez MD - 07/27/2021 12:28 PM EST Signature Only documented in this encounter Plan of Treatment Upcoming Encounters Date Type Department Care Team (Late st Contact Info) Description 07/17/2024 12:30 PM EST Clinical Support [facility] [address] [facility] [place] [address] 07/17/2024 1:30 PM EST Appointment [facility] [address] [place] [address] 07/20/2024 2:50 PM EST Office Visit [facility] [address] [facility] [place] [address] Divine Carpenter MD [address] [facility] [address] [place] [address] documented as of this encounter Procedures Procedure Name Priority Date/Time Associated Diagnosis Comments OXYGEN THERAPY Routine 07/24/2021 10:39 AM EST BRONCHOSCOPY, WITH AIRWAY BALLOON OCCLUSION 07/24/2021 10:00 AM EST Dysphagia documented in this encounter Visit Diagnoses Not on filedocumented in this encounter Administered Medications Inactive Administered Medications - up to 3 most recent administrations Medication Order MAR Action Action Date Dose Rate Site acetaminophen (Tylenol) 160 MG/5ML solution 1,000 mg 1,000 mg, Oral, Once as needed, 1 dose, Starting on Nenita 07/24/21 at 1039, Until Nenita 07/24/21 at 1405, Routine, fever, pain >1 out of 10, Recovery (Phase I only) fentaNYL (Sublimaze) injection 25 mcg 25 mcg, Intravenous, Every 5 min PRN, 2 doses, Starting on Nenita 07/24/21 at 1039, Until Nenita 07/24/21 at 1405, Routine, Recovery (Phase I only), severe pain, pain score of 3 to 4 out of 10 lactated Ringer's infusion 100 mL/hr, Intravenous, Once, 1 dose, On Nenita 07/24/21 at 0945, Routine New Bag 07/24/2021 10:00 AM EST 100 mL/hr 100 mL/hr lactated Ringer's infusion 100 mL/hr, Intravenous, Continuous, Starting on Nenita 07/24/21 at 1100, Until Nenita 07/24/21 at 1405, Routine lidocaine (Xylocaine) 1 % injection - Pyxis Override Pull 1 dose, Starting on Nenita 07/24/21 at 0930, Until Nenita 07/24/21 at 1000 Given 07/24/2021 10:00 AM EST 0.3 mL ondansetron (Zofran) injection 4 mg 4 mg, Intravenous, Once as needed, 1 dose, Starting on Nenita 07/24/21 at 1039, Until Nenita 07/24/21 at 1405, Routine, Recovery (Phase I only), nausea, vomiting promethazine (Phenergan) injection 6.25 mg 6.25 mg, Intravenous, Every 10 min PRN, 2 doses, Starting on Nenita 07/24/21 at 1039, Until Nenita 07/24/21 at 1405, Routine, Recovery (Phase I only), nausea, vomiting sodium chloride 0.9 % flush 10 mL 10 mL, Intravenous, Every 8 hours PRN, Starting on Nenita 07/24/21 at 0920, Until Nenita 07/24/21 at 1405, Routine, Holding - Preprocedure, line care documented in this encounter Active and Recently Administered Medications Times are shown in EST. Scheduled Medication Order 07/22/2021 07/23/2021 07/24/2021 albuterol (2.5 MG/3ML) 0.083% nebulizer solution 3 mL 3 mL, Nebulization, Once, 1 dose, On Nenita 07/24/21 at 1100, Routine, Recovery (Phase I only) 1100 (Canceled Entry - Provider: Automatic Discharge Provider - Comment: Automatically canceled at discontinue of medication order) lactated Ringer's infusion (COMPLETED) 100 mL/hr, Intravenous, Once, 1 dose, On Nenita 07/24/21 at 0945, Routine 1000 (New Bag - Prov ider: Hernan Silvestre RN) Continuous Medication Order 07/22/2021 07/23/2021 07/24/2021 lactated Ringer's infusion 100 mL/hr, Intravenous, Continuous, Starting on Nenita 07/24/21 at 1100, Until Nenita 07/24/21 at 1405, Routine 1100 (Canceled Entry - Provider: Automatic Discharge Provider - Comment: Automatically canceled at discontinue of medication order) PRN Medication Order 07/22/2021 07/23/2021 07/24/2021 acetaminophen (Tylenol) 160 MG/5ML solution 1,000 mg 1,000 mg, Oral, Once as needed, 1 dose, Starting on Nenita 07/24/21 at 1039, Until Nenita 07/24/21 at 1405, Routine, fever, pain >1 out of 10, Recovery (Phase I only) fentaNYL (Sublimaze) injection 25 mcg 25 mcg, Intravenous, Every 5 min PRN, 2 doses, Starting on Nenita 07/24/21 at 1039, Until Nenita 07/24/21 at 1405, Routine, Recovery (Phase I only), severe pain, pain score of 3 to 4 out of 10 ondansetron (Zofran) injection 4 mg 4 mg, Intravenous, Once as needed, 1 dose, Starting on Nenita 07/24/21 at 1039, Until Nenita 07/24/21 at 1405, Routine, Recovery (Phase I only), nausea, vomiting oxymetazoline (Afrin) 0.05 % nasal spray (CANCELED) As needed, Starting on Nenita 07/24/21 at 1029, Until Nenita 07/24/21 at 1052, Routine, Intraprocedure 1029 (Given - Provid er: Gil Hernandez MD - Comment: on field) promethazine (Phenergan) injection 6.25 mg 6.25 mg, Intravenous, Every 10 min PRN, 2 doses, Starting on Nenita 07/24/21 at 1039, Until Nenita 07/24/21 at 1405, Routine, Recovery (Phase I only), nausea, vomiting sodium chloride 0.9 % flush 10 mL(Linked Group 1) 10 mL, Intravenous, Every 8 hours PRN, Starting on Nenita 07/24/21 at 0920, Until Nenita 07/24/21 at 1405, Routine, Holding - Preprocedure, line care No Frequency Medication Order 07/22/2021 07/23/2021 07/24/2021 lidocaine (Xylocaine) 1 % injection - Pyxis Override Pull (COMPLETED) 1 dose, Starting on Nenita 07/24/21 at 0930, Until Nenita 07/24/21 at 1000 1000 (Given - Provid er: Hernan Silvestre RN) Linked Groups Order Group 1: Insert peripheral IV (CANCELED) Once, On Nenita 07/24/21 at 0921, For 1 occurrence, Holding - Preprocedure And Saline lock IV (CANCELED) Once, On Nenita 07/24/21 at 0921, For 1 occurrence, Holding - Preprocedure And sodium chloride 0.9 % flush 10 mLJump to med 10 mL, Intravenous, Every 8 hours PRN, Starting on Nenita 07/24/21 at 0920, Until Nenita 07/24/21 at 1405, Routine, Holding - Preprocedure, line care documented in this encounter Additional Health Concerns Assessment Noted Time A fall risk assessment has been complete d for the patient 07/05/2021 1:53 PM EST documented as of this encounter Care Teams Vacuum Truck Driver Relationship Specialty Start Date End Date Michele Wright MD [address] [place] [id number] PCP - General 10/11/20 Edgar Szymanski MD [address] [facility] [address] [place] [address] Radiation Oncologist Radiation Therapy 03/14/20 4 Shun Hurst MD [address] [place] [address] Surgeon Neurosurgery 02/24/21 Divine Carpenter MD [address] [phone] Medical Oncologist Medical Oncology 06/13/21 documented as of this encounter
--- OUTSIDE RECORDS SUMMARY | 2024-05-03 13:41 | XMS_ITS | Encounter Summary ---
Author Organization [facility] Address [address] [place], [place] [address] Care Team Providers Care Health And Wellness Sales Consultant Name Role Phone Michele Wright MD Primary Care Provider + [phone] Edgar Szymanski MD Unavailable [phone] Shun Hurst MD Unavailable [phone] Divine Carpenter MD Unavailable [phone] Reason for Visit * Episode Based Medications (Routine) - Closed Specialty Diagnoses / Procedures Referred By Contac t Referred To Contact Diagnoses Cancer of larynx (CMS/HCC) Divine Carpenter MD [address] [address] Phone: tel: fax: [facility] [address] [place] [address] Phone: tel: Referral ID Status Reason Start Date Expiration Date Visits Re quested Visits Authorized [id number] Closed 02/17/2021 10/25/2021 1 78 Encounter Details Date Type Department Care Team (Latest Contact Info) Description 06/30/2021 9:57 AM EST - 06/30/2021 11:59 PM EST Hospital Encounter [facility] [address] [place] [address] Cancer of larynx (CMS/HCC) (Primary [...] Sign Reading Time Taken Comments Blood Pressure 166/82 06/30/2021 12:38 PM EST Pulse 55 06/30/2021 12:38 PM EST Temperature 36.8 ??C (98.2 ??F) 06/30/2021 9:59 AM ES T Respiratory Rate 18 06/30/2021 9:59 AM EST Oxygen Saturation 96% 06/30/2021 9:59 AM EST Inhaled Oxygen Concentration - - Weight 95.5 kg (210 lb 8.6 oz) 06/30/2021 9:59 A M EST Height 177.8 cm (5' 10 ) 06/30/2021 9:59 AM EST Body Mass Index 30.21 06/30/2021 9:59 AM EST documented in this encounter Medications [...] each day. 30 tablet 11 06/30/2021 4 lisinopril 5 MG tablet Take 5 mg by mouth 1 (one) time each day. 2 loperamide (Imodium) 2 MG capsule Take 2 [...] (Flomax) 0.4 MG 24 hr capsule Take 0.4 mg by mouth every night. 2 documented as of this encounter Miscellaneous Notes * Addendum Note - Shemar Hodges - 06/30/2021 10:30 AM ESTEncounter addended by: Shemar Hodges on: 07/01/2021 11:44 AM Actions taken: Charge Capture section accepted documented in this encounter Plan of Treatment Upcoming Encounters Date Type Department Care Team (Late st Contact Info) Description 07/17/2024 12:30 PM EST Clinical Support [facility] Head[facility] Neck & Respiratory 800 [facility], 2nd [place] [address] 07/17/2024 1:30 PM EST Appointment [facility] Radiology [address] [place] [address] 07/20/2024 2:50 PM EST Office Visit [facility] Head, Neck & Respiratory 800 [facility], [address]nd [place] [address] Divine Carpenter MD 800 [facility] [address] [place] [address] documented as of this encounter Visit Diagnoses Diagnosis 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 Dispose in BLACK Hazardous Waste Container. Chemotherapy: refer to A14-065., On Wed06/30/21 at 1245, For 1 dose, NS 250 mLIndications:Cancer of larynx (CMS/HCC) New Bag 06/30/2021 11:45 AM EST 600 mg 710 mL/hr dexamethasone (Decadron) tablet 12 mg 12 mg, Oral, Once, 1 dose, On Wed06/30/21 at 1115, RoutineIndications:Can cer of larynx (CMS/HCC) Given 06/30/2021 11:13 AM EST 12 mg fluorouracil (Adrucil) 6,550 mg in sodium chloride 0.9 % 230 mL chemo infusion - for home use 6,550 mg (rounded from 6,570 mg = 3,000 mg/m2 ? 2.19 m2 Treatment Plan BSA from Recorded weight), Intravenous, at 2.4 mL/hr, Administer over 96 Hours, Over 96 hours, Hazardous Drug-Tier 1 Precautions. Dispose in BLACK Hazardous Waste Container. Chemotherapy: refer to A14-065., First dose on Wed06/30/21 at 1315, For 1 dose, NS 230 mL (Elastometric Pump)Indications:Cance r of larynx (CMS/HCC) Given 06/30/2021 1:49 PM EST 6,550 mg 2.4 mL/hr magnesium oxide (Mag-Ox) tablet 400 mg 400 mg, Oral, Once, 1 dose, On Wed06/30/21 at 1100, Routine Given 06/30/2021 11:13 AM EST 400 mg ondansetron ODT (Zofran-ODT) disintegrating tablet 16 mg 16 mg, Oral, Once, 1 dose, On Wed06/30/21 at 1115, RoutineIndications:Can cer of larynx (CMS/HCC) Given 06/30/2021 11:13 AM EST 16 mg tixagevimab-cilgavimab (Evusheld) IM injection 150 mg 150 mg, Intramuscular, Every 5 min, 2 doses, First dose on Wed06/30/21 at 1030, Last dose on Wed06/30/21 at 1035, RoutineIndications:Can cer of larynx (CMS/HCC) Given 06/30/2021 10:35 AM EST 150 mg Left Ventrogluteal Given 06/30/2021 10:33 AM EST 150 mg R ight Ventrogluteal documented in this encounter Additional Health Concerns Infection Onset Date Last Indicated Resolved Time COVID 19 (Confirmed) Comment:[facility] has verified patient has a COVID-19 positive result. A chart review has been completed, EPI PUI has been completed and sent to appropriate Health Dept. [facility] Electrical Panel Builder: Doyle 06/12/2021 06/12/2021 07/03/2021 5: 23 AM EST Assessment Noted Time A fall risk assessment has been complete d for the patient 06/30/2021 9:14 AM EST documented as of this encounter Care Teams Health And Wellness Sales Consultant Relationship Specialty Start Date End Date Michele Wright MD [address] [phone] PCP - General 10/11/20 Edgar Szymanski MD [address] [facility] [address] [place] [address] Radiation Oncologist Radiation Therapy 03/14/20 4 Shun Hurst MD [address] [facility] [address] [place] [address] Surgeon Neurosurgery 02/24/21 Divine Carpenter MD [address] [place] [address] Medical Oncologist Medical Oncology 06/13/21 documented as of this encounter
--- OUTSIDE RECORDS SUMMARY | 2024-05-03 13:41 | XMS_ITS | Encounter Summary ---
Author Organization [facility] Address [address] [place] [address] Care Team Providers Care Manga Artist Name Role Phone Michele Wright MD Primary Care Provider + [phone] Edgar Szymanski MD Unavailable [phone] Shun Hurst MD Unavailable [phone] Divine Carpenter MD Unavailable [phone] Encounter Details Date Type Department Care Team (Latest Contact Info) Description 07/05/2021 7:45 AM EST - 07/05/2021 11:59 PM EST Hospital En[facility] 1 [address] [place] [address] Cancer of larynx (CMS/HCC) (Primary Dx) Discharge [...] have Coronavirus / COVID-19? No / Unsure 07/05/2021 1:52 PM EST documented as of this encounter Last Filed Vital Signs Vital Sign Reading Time Taken Comments Blood Pressure 135/88 07/05/2021 1:53 PM EST Pulse 74 07/05/2021 1:53 PM EST Temperature 36.7 ??C (98 ??F) 07/05/2021 1:53 PM EST Respiratory Rate 18 07/05/2021 1:53 PM EST Oxygen Saturation 95% 07/05/2021 1:53 PM EST Inhaled Oxygen Concentration - - Weight 86.5 kg (190 lb 11.2 oz) 07/05/2021 1:53 PM EST Height 177.8 cm (5' 10 ) 07/05/2021 1:53 PM EST Body Mass Index 27.36 07/05/2021 1:53 PM EST documented in this encounter Medications [...] encounter Miscellaneous Notes * Addendum Note - Jenn Villagran RN - 07/05/2021 7:45 AM Kiersten addended by: Jenn Villagran RN on: 07/05/2021 3:30 PM Actions taken: Flowsheet accepted * Addendum Note - Shemar Hodges - 07/05/2021 7:45 AM Zoëounter addended by: Shemar Hodges on: 07/07/2021 10:49 AM Actions taken: Charge Capture section accepted documented in this encounter Plan of Treatment Upcoming Encounters Date Type Department Care Team (Late st Contact Info) Description 07/17/2024 12:30 PM EST Clinical Support Pav [facility] Head, Neck & Respiratory 800 [facility], [address]nd [place] [address] 07/17/2024 1:30 PM EST Appointment [facility] Radiology [address] [place] [address] 07/20/2024 2:50 PM EST Office Visit Pav CC Head, Neck & Respiratory 800 [facility], [address]nd [place] [address] Divine Carpenter MD [facility] [address] [place] [address] documented as of this encounter Visit Diagnoses Diagnosis 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, unspecified site documented in this encounter Additional Health Concerns Assessment Noted Time A fall risk assessment has been complete d for the patient 07/05/2021 1:53 PM EST documented as of this encounter Care Teams Manga Artist Relationship Specialty Start Date End Date Michele Wright MD [address] [place] [address] PCP - General 10/11/20 Edgar Szymanski MD 800 [facility] [address] [place] [address] Radiation Oncologist Radiation Therapy 03/14/20 4 Shun Hurst MD [address] [facility] [address] [place] [address] Surgeon Neurosurgery 02/24/21 Divine Carpenter MD [address]un[address] [facility] [address] [place] [address] Medical Oncologist Medical Oncology 06/13/21 documented as of this encounter
--- OUTSIDE RECORDS SUMMARY | 2024-05-03 13:41 | XMS_ITS | Encounter Summary ---
Author Organization [facility] Address [address] [place] [address] Care Team Providers Care Machine Cloth Measurer Name Role Phone Michele Wright MD Primary Care Provider + [phone] Edgar Szymanski MD Unavailable [phone] Shun Hurst MD Unavailable [phone] Divine Carpenter MD Unavailable [phone] Reason for Visit * Reason Comments Follow-up Encounter Details Date Type Department Care Team (Latest Contact Info) Description 06/25/2021 9:40 AM EST - 06/25/2021 11:59 PM EST Hospital Encounter [facility] Radiation 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 No / Unsure 06/25/2021 9:40 AM EST documented as of this encounter Last Filed Vital Signs Vital Sign Reading Time Taken Comments Blood Pressure 186/84 06/25/2021 9:48 AM EST Pulse 68 06/25/2021 9:48 AM EST Temperature - - Respiratory Rate 15 06/25/2021 9:48 AM EST Oxygen Saturation 96% 06/25/2021 9:48 AM EST Inhaled Oxygen Concentration - - Weight 93.1 kg (205 lb 4 oz) 06/25/2021 9:48 AM EST Height - - Body Mass Index 31.11 06/12/2021 10:09 AM EST documented in this encounter Medications at Time of Discharge albuterol 108 (90 Base) MCG/ACT inhaler Inhale 2 puffs every 4 (four) hours if needed for wheezing or shortness of breath. 18 g 11 06/16/2021 2 ALPRAZolam (Xanax) 1 MG tablet Take 1 tablet (1 mg) by mouth 2 (two) times a day. 3 amLODIPine (Norvasc) 10 MG tablet Take 10 mg by mouth 1 (one) time each day. 2 dexamethasone (Decadron) 6 MG tablet Take 1 [...] each day. 30 tablet 11 06/17/2021 4 ibuprofen 100 MG/5ML suspension Take 600 mg by mouth every 6 (six) hours if needed for mild pain. 2 levothyroxine (Synthroid, Levoxyl) 150 MCG tablet Take 1 tablet (150 mcg) by mouth 1 (one) time each day before breakfast. 3 lisinopril 10 MG tablet TAKE 1 TABLET BY MOUTH EVERY DAY 30 tablet 05/29/2021 2 loperamide (Imodium) 2 MG capsule Take 2 mg by mouth 4 (four) times a day if needed for diarrhea. 2 loratadine (Claritin) 10 MG tablet Take 10 mg by mouth 1 (one) time each day. 2 Morphine Sulfate ER 60 MG tablet extended-release 12 hour Take 60 mg by mouth 2 (two) times a day. Do not crush, chew, or split. 2 omeprazole (PriLOSEC) [address] capsule [...] encounter Miscellaneous Notes * Progress Notes - Stuart Aponte MD - 06/25/2021 10:30 AM EST Radiation Oncology Follow Up Patient Name: Anibal Barreto Date of : 1965 56 y.o. Date of Service: 06/25/2021 Anibal Barreto is in the clinic today for follow-up in the management of TREATMENT DIAGNOSIS and Cancer Staging Cancer of larynx (CMS/HCC) Staging [...] Signed by Divine Carpenter MD on 10/14/2020 He was treated with the course of Radiation Therapy Details of Radiation Treatment: -??7000 cGy delivered in 35 fractions at 200 cGy per fraction??for T3N3M0 supraglottic larynx cancer completed??07/09/2017 ??-3000 cGy in 3 fractions to the right upper lung extrapleural nodule outside the surgical wedge resected bed via 6X ??SBRT completed on 03/29/20. - 3000 cGy in 10 fractions at 300 cGy per fraction, delivered to the right axilla using 18X/6X photons with 3D conformal technique, completed 12/20/2020 Assessment/Plan IMPRESSION: Mr. 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 This was treated with SBRT as detailed above. Most recently he developed progressive disease to the RIGHT axilla and was treated on the MULTI-20 clinical trial but was taken off due to progressive disease; he was treated with palliative radiation as detailed above, completed 12/20/2020. Today, he presents for routine follow-up. Mr. Barreto is doing well on follow-up today. His exam demonstrates resolution of his axillary mass, and he does not demonstrate any adverse sequelae from radiation therapy. He has responded well from a Radiation Oncology standpoint, and we will follow up with him in 6 months in clinic, on 12/24/2021 at 1:00PM. OPINIONS AND RECOMMENDATIONS: - Next ENT appt with Dr. Hernandez on 07/04/2021 at 10:30AM - Next CT Chest/Neck scheduled 09/05/2021 - Next [facility] appt with Dr. Correia on 09/05/2021 at 11:00AM - Follow up in clinic with Dr. Szymanski on 12/24/2021 at 1:00PM. Subjective Mr. Barreto was most recently admitted to [facility] from 06/12/2021 to 06/16/2021 with acute hypoxic respiratory failure and bibasilar aspiration, secondary to COVID- 19. He was treated with a 5-day course of remdesivir, a 10-day course of dexamethasone with GI prophylaxis. He is receiving palliative carboplatin/5FU (C5D1 = 06/16/21) per Dr. Carpenter. Today, Mr. Barreto states he is doing well and has no acute concerns. He reports intermittent RUE paresthesias as a sequale of COVID-19 infection. Otherwise, he denies any cough, chest pain, dyspnea,dysphagia, nausea, vomiting, constipation, diarrhea, or musculoskeletal weakness. Asymptomatic Objective PHYSICAL EXAM: Visit Vitals BP (!) 186/84 Pulse 68 Resp 15 Wt 93.1 kg (205 lb 4 oz) SpO2 96% BMI 31.11 kg/m?? Smoking Status Former Smoker BSA 2.12 m?? There is no height or weight on file to calculate BMI. Physical Exam Constitutional: Appearance: Normal appearance. He is obese. HENT: Head: Normocephalic and atraumatic. Mouth/Throat: Mouth: Mucous membranes are moist. Pharynx: Oropharynx is clear. Eyes: Extraocular Movements: Extraocular movements intact. Pupils: Pupils are equal, round, and reactive to light. 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 Trach collar in place, without erythema or desquamation Cardiovascular: Rate and Rhythm: Normal rate and regular rhythm. Pulses: Normal pulses. Heart sounds: Normal heart sounds. Pulmonary: Effort: Pulmonary effort is normal. Breath sounds: Normal breath sounds. Abdominal: General: There is no distension. Palpations: Abdomen is soft. Tenderness: There is no abdominal tenderness. Musculoskeletal: General: Normal range of motion. Cervical back: Neck supple. Skin: General: Skin is warm. Capillary Refill: Capillary refill takes less than 2 seconds. Coloration: Skin is not pale. Neurological: Mental Status: He is alert and oriented to person, place, and time. Mental status is at baseline. Psychiatric: Mood and Affect: Mood normal. Behavior: Behavior normal. DIAGNOSTIC REPORTS REVIEWED: CT SOFT TISSUE NECK W IV CONTRAST (06/12/2021) IMPRESSION: 1.Tracheostomy tube is missing. The subglottic trachea is patent. 2.Nonspecific increased abnormal thickening of the chatterjee of the neopharynx. This may be treatment related though tumor recurrence cannot be excluded. 3.Otherwise, unchanged postoperative appearance to the neck including laryngectomy Stuart Aponte II, MD, PGY-2 Resident Physician, Radiation Oncology [facility] Pager: [phone] Cosigned by Edgar Szymanski MD at 06/26/2021 8:25 AM EST Associated attestation - Edgar Szymanski MD - 06/26/2021 8:25 AM EST I saw and evaluated the patient with the resident. I discussed the case with the resident and agreewith the findings and plan as documented. documented in this encounter Plan of Treatment Upcoming Encounters Date Type Department Care Team (Late st Contact Info) Description 07/17/2024 12:30 PM EST Clinical Support Pav CC Head, Neck & Respiratory [address] [facility], [address]nd [place] [phone] 07/17/2024 1:30 PM EST Appointment [facility] Radiology [address] [place] [address] 07/20/2024 2:50 PM EST Office Visit Pav CC Head, Neck & Respiratory 800 [facility], [address]nd [place] [address] Divine Carpenter MD 800 [facility] [address] [facility] [address] [place] [address] documented as of this encounter Visit Diagnoses Diagnosis 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 A chart review has been completed, EPI PUI has been completed and sent to appropriate Health Dept. [facility] Maintenance Mgr: Doyle 06/12/2021 06/12/2021 07/03/2021 5: 23 AM EST Assessment Noted Time A fall risk assessment has been complete d for the patient 06/25/2021 9:49 AM EST documented as of this encounter Care Teams Machine Cloth Measurer Relationship Specialty Start Date End Date Michele Wright MD [address] [phone] PCP - General 10/11/20 Edgar Szymanski MD [address] [facility] [address] [place] [address] Radiation Oncologist Radiation Therapy 03/14/20 4 Shun Hurst MD [address] [place] [address] Surgeon Neurosurgery 02/24/21 Divine Carpenter MD 800 [facility] [address] [place] [address] Medical Oncologist Medical Oncology 06/13/21 documented as of this encounter
--- OUTSIDE RECORDS SUMMARY | 2024-05-03 13:41 | XMS_ITS | Encounter Summary ---
Author Organization Healthcare Address [address] [place] [address] Care Team Providers Care Mineral Surveyor Name Role Phone Michele Wright MD Primary Care Provider + [phone] Edgar Szymanski MD Unavailable [phone] Shun Hrust MD Unavailable [phone] Divine Carpenter MD Unavailable [phone] Encounter Details Date Type Department Care Team (Latest Contact Info) Description 07/15/2021 Travel Social History Tobacco Use Types Packs/Day [...] Respiratory 800 [facility], [address] [place] [address] 07/17/2024 1:30 PM EST Appointment [facility] Radiology [address] [place] [address] 07/20/2024 2:50 PM EST Office Visit Pav CC Head, Neck & Respiratory [address] [facility], [address] [place] [address] Divine Carpenter MD 800 [facility] [address] Zuniga [facility] [address] [place] [address] documented as of this encounter Visit Diagnoses Not on filedocumented in this encounter Additional Health Concerns Assessment Noted Time A fall risk assessment has been complete d for the patient 07/05/2021 1:53 PM EST documented as of this encounter Care Teams Mineral Surveyor Relationship Specialty Start Date End Date Michele Wright MD [address] [place] [address] PCP - General 10/11/20 Edgar Szymanski MD [address] [facility] [address] [place] [address] Radiation Oncologist Radiation Therapy 03/14/20 4 Shun Hurst MD [address] [facility] [address] [place] [address] Surgeon Neurosurgery 02/24/21 Divine Carpenter MD 800 [facility] [address] [facility] [address] [place] [address] Medical Oncologist Medical Oncology 06/13/21 documented as of this encounter
--- OUTSIDE RECORDS SUMMARY | 2024-05-03 13:41 | XMS_ITS | Encounter Summary ---
Author Organization [facility] Address [address] [place], [place] [address] Care Team Providers Care Manager Ecommerce Name Role Phone Michele Wright MD Primary Care Provider + [phone] Edgar Szymanski MD Unavailable [phone] Shun Hurst MD Unavailable [phone] Divine Carpenter MD Unavailable [phone] Reason for Visit * Reason Comments Med Refill Encounter Details Date Type Department Care Team (Late st Contact Info) Description 06/27/2021 Refill Pav CC Head, Neck & Respiratory [address] [place] [address] Hannah Sprague, DIRECTOR MONEY [facility] [address] [place] [address] Social History Tobacco Use Types Packs/Day Years [...] Neck & Respiratory 800 [facility], [address]nd [place] [address] 07/17/2024 1:30 PM EST Appointment [facility] Radiology [address] [place] [address] 07/20/2024 2:50 PM EST Office Visit Pav CC Head, Neck & Respiratory [address] [facility], [address]nd [place] [address] Divine Carpenter MD 800 [facility] [address] [place] [address] documented as of this encounter Visit Diagnoses Not on filedocumented in this encounter Additional Health Concerns Infection Onset Date Last Indicated Resolved Time COVID 19 (Confirmed) Comment:[facility] has verified patient has a COVID-19 positive result. A chart review has been completed, EPI PUI has been completed and sent to appropriate Health Dept. [facility] Tape Cutter: Doyle 06/12/2021 06/12/2021 07/03/2021 5: 23 AM EST Assessment Noted Time A fall risk assessment has been complete d for the patient 06/25/2021 9:49 AM EST documented as of this encounter Care Teams Manager Ecommerce Relationship Specialty Start Date End Date Michele Wright MD [address] [place] [address] PCP - General 10/11/20 Edgar Szymanski MD [address] [place] [address] Radiation Oncologist Radiation Therapy 03/14/20 4 Shun Hurst MD [address] [place] [address] Surgeon Neurosurgery 02/24/21 Divine Carpenter MD [address]un[address] [place] [address] Medical Oncologist Medical Oncology 06/13/21 documented as of this encounter
--- OUTSIDE RECORDS SUMMARY | 2024-05-03 13:41 | XMS_ITS | Encounter Summary ---
Author Organization Healthcare Address [address] [place] [address] Care Team Providers Care Cargo And Container Inspector Name Role Phone Michele Wright MD Primary Care Provider + [phone] Edgar Szymanski MD Unavailable [phone] Shun Hurst MD Unavailable [phone] Divine Carpenter MD Unavailable [phone] Encounter Details Date Type Department Care Team (Latest Contact Info) Description 07/21/2021 Travel Social History Tobacco Use Types Packs/Day [...] have Coronavirus / COVID-19? No / Unsure 07/21/2021 1:31 PM EST documented as of this encounter Plan of Treatment Upcoming Encounters Date Type Department Care Team ([facility] st Contact Info) Description 07/17/2024 12:30 PM EST Clinical Support [facility] Res[facility] [address] [facility], [address] [place] [phone] 07/17/2024 1:30 PM EST Appointment [facility] G Radiology [address] [place] [phone] 07/20/2024 2:50 PM EST Office Visit [facility] Head[facility] Neck [facility] Respiratory [address] [facility], [address] [place] [address] Divine Carpenter MD [address] [facility] Diane Zuniga [facility] [address] [place] [address] documented as of this encounter Visit Diagnoses Not on filedocumented in this encounter Additional Health Concerns Assessment Noted Time A fall risk assessment has been complete d for the patient 07/05/2021 1:53 PM EST documented as of this encounter Care Teams Cargo And Container Inspector Relationship Specialty Start Date End Date Michele Wright MD [address] [place] [address] PCP - General 10/11/20 Edgar Szymanski MD [address] [facility] [address] [place] [phone] Radiation Oncologist Radiation Therapy 03/14/20 4 Shun Hurst MD [address] [facility] [address] [place] [phone] Surgeon Neurosurgery 02/24/21 Divine Carpenter MD [address] [facility] Diane Zuniga [facility] [address] [place] [address] Medical Oncologist Medical Oncology 06/13/21 documented as of this encounter
--- OUTSIDE RECORDS SUMMARY | 2024-05-03 13:41 | XMS_ITS | Encounter Summary ---
Author Organization [facility] Address [address] [place], [place] [address] Care Team Providers Care Operations Supervisor Name Role Phone Michele Wright MD Primary Care Provider + [phone] Edgar Szymanski MD Unavailable [phone] Shun Hurst MD Unavailable [phone] Divine Carpenter MD Unavailable [phone] Ambika Cain CF-PERSONAL LINES SALES EXECUTIVE Unavailable Unavailab le Reason for Visit * Reason Onset Date Comments Med Refill HCN - Patient Message 06/24/2021 Encounter Details Date Type Department Care Team (Late st Contact Info) Description 06/23/2021 Refill Pav [facility] Head[facility] Neck & Respiratory [address] [facility], [address] [place] [address] Divine Carpenter MD 800 [facility] [address] [place] [address] Social History Tobacco Use Types [...] encounter Miscellaneous Notes * Telephone Encounter - Leeanna Urbina - 06/24/2021 10:33 AM EST Patient Phone Message Dr Carpenter Reason for Call: [employer] calling again to confirm the dosage // Reference # [id number]// Best contact number and optimal time of day to reach caller: [phone] Note: Please do not reply to this [...] [facility] Neck [facility] Respiratory [address] [phone] 07/17/2024 1:30 PM EST Appointment P[facility] G Radiology [address] [place] [phone] 07/20/2024 2:50 PM EST Office Visit Pav [facility] Head[facility] Neck & Respiratory [address] [facility], [address] [place] [address] Divine Carpenter MD [address] [facility] [address] [place] [address] documented as of this encounter Visit Diagnoses Not on filedocumented in this encounter Additional Health Concerns Infection Onset Date Last Indicated Resolved Time COVID 19 (Confirmed) Comment:IPAC has verified patient has a COVID-19 positive result. A chart review has been completed, EPI PUI has been completed and sent to appropriate Health Dept. [facility] Room Inspector: Doyle 06/12/2021 06/12/2021 07/03/2021 5: 23 AM EST Assessment Noted Time A fall risk assessment has been complete d for the patient 06/12/2021 10:08 AM EST documented as of this encounter Care Teams Operations Supervisor Relationship Specialty Start Date End Date Michele Wright MD [address] [place], [place] [id number] PCP - General 10/11/20 Edgar Szymanski MD 800 [facility] [address] [place] [address] Radiation Oncologist Radiation Therapy 03/14/20 4 Shun Hurst MD [address] [place] [address] Surgeon Neurosurgery 02/24/21 Divine Carpenter MD [address] [place] [address] Medical Oncologist Medical Oncology 06/13/21 Ambika Cain CF-PERSONAL LINES SALES EXECUTIVE Speech Language Pathologist Speech Pathology 10/06/23 documented as of this encounter
--- OUTSIDE RECORDS SUMMARY | 2024-05-03 13:41 | XMS_ITS | Encounter Summary ---
Author Organization Healthcare Address [address] [place] [address] Care Team Providers Care Assistant To The President Name Role Phone Michele Wright MD Primary Care Provider + [phone] Edgar Szymanski MD Unavailable [phone] Shun Hurst MD Unavailable [phone] Divine Carpenter MD Unavailable [phone] Encounter Details Date Type Department Care Team (Latest Contact Info) Description 07/21/2021 2:00 PM EST [facility] [address], [address] [place] [address] Secondary malignant neoplasm of chest wall (CMS/HCC) Anesthesia Record Procedure Summary Procedure Name Responsible [...] acknowledgement of understanding. 1051 An Stop Meds * Agents No agents on file. * Blood No blood administrations on file. Lines, Drains, and Airways Type Details Placement Removal Single Lumen Implantable Port 03/06/21; 1229; Yes; 03/06/21; Other (Comment); Yes; Yes; Left; Chest; Kwabena Waits 03/06/21 1229 by Radha Norwood RN Wound 07/24/21; Throat 07/24/21 0000 b Oma Hathaway RN Surgical Airway Placement Date: 06/12/21; Placement [...] Sign Reading Time Taken Comments Blood Pressure 90/53 07/21/2021 2:08 PM EST Pulse 65 07/21/2021 2:08 PM EST Temperature 36.4 ??C (97.5 ??F) 07/21/2021 2:08 PM ES T Respiratory Rate 18 07/21/2021 2:08 PM EST Oxygen Saturation 97% 07/21/2021 2:08 PM EST Inhaled Oxygen Concentration - - Weight 90 kg (198 lb 6.6 oz) 07/21/2021 2:08 PM EST Height - - Body Mass Index 28.47 07/15/2021 2:24 PM EST documented in this encounter Miscellaneous Notes * Preprocedure Instructions - Tran Love APRN - 07/21/2021 2:00 PM EST Current Medications Medication Instructions ??? ALPRAZolam (Xanax) 1 MG tablet Take as needed ??? gabapentin (Neurontin) 600 MG tablet Take morning of surgery ??? hydroCHLOROthiazide (HYDRODiuril) 25 MG tablet Hold day of surgery ??? levothyroxine (Synthroid, Levoxyl) 150 MCG tablet Take morning of surgery ??? lisinopril 5 MG tablet Hold day of surgery ??? morphine (MSIR) 30 MG tablet Take as needed ??? omeprazole (PriLOSEC) [address] capsule Take morning of surgery ??? oxyCODONE (Roxicodone) 30 MG immediate release tablet Take as needed ??? tamsulosin (Flomax) 0.4 MG 24 hr capsule Take morning of surgery General Preoperative Instructions You will be [...] card, photo ID, along with power of energy attorney, guardianship or advanced directives if applicable [...] Pav [facility] Head[facility] Neck [facility] Respiratory [address] [facility], [address]nd [place] [phone] 07/17/2024 1:30 PM EST Appointment P[facility] G Radiology [address] [place] [address] 07/20/2024 2:50 PM EST Office Visit Pav [facility] Head[facility] Neck & Respiratory [address] [facility], [address]nd [place] [address] Divine Carpenter MD [address] [facility] [address] [place] [phone] documented as of this encounter Visit Diagnoses Diagnosis Secondary malignant neoplasm of chest wall (CMS/HCC) documented in this encounter Additional Health Concerns Assessment Noted Time A fall risk assessment has been complete d for the patient 07/05/2021 1:53 PM EST documented as of this encounter Care Teams Assistant To The President Relationship Specialty Start Date End Date Michele Wright MD [address] [place] [address] PCP - General 10/11/20 Edgar Szymanski MD [address] [place] [phone] Radiation Oncologist Radiation Therapy 03/14/20 4 Shun Hurst MD [address] [place] [address] Surgeon Neurosurgery 02/24/21 Divine Carpenter MD [address] Diane Zuniga [facility] [address] [place] [address] Medical Oncologist Medical Oncology 06/13/21 documented as of this encounter
--- OUTSIDE RECORDS SUMMARY | 2024-05-03 13:41 | XMS_ITS | Encounter Summary ---
Author Organization [facility] Address [address] [place], [place] [address] Care Team Providers Care Transit Vehicle Inspector Name Role Phone Michele Wright MD Primary Care Provider + [phone] Edgar Szymanski MD Unavailable [phone] Shun Hurst MD Unavailable [phone] Divine Carpenter MD Unavailable [phone] Reason for Visit * Reason Onset Date Comments HCN - Patient Message 06/19/2021 Encounter Details Date Type Department Care Team (Late st Contact Info) Description 06/19/2021 Telephone [facility] [address] [place] [phone] Divine Carpenter MD [address] [address] HCN - Patient Message Social [...] * Telephone Encounter - Leeanna Urbina - 06/19/2021 2:52 PM EST Patient Phone Message Dr carpenter Reason for Call: confirm medication dosage for Erbitux date of service 01/27, 02/17/2021// PT ID [id number] Best contact number and optimal time of day to reach caller: [phone] Note: Please do not reply to this [...] Respiratory [address] [facility], [address]nd [place] [address] 07/17/2024 1:30 PM EST Appointment [facility] G Radiology [address] [place] [phone] 07/20/2024 2:50 PM EST Office Visit Pav [facility] Head[facility] Neck & Respiratory [address] [facility], [address]nd [place] [address] Divine Carpenter MD 800 [facility] [address] [place] [address] documented as of this encounter Visit Diagnoses Not on filedocumented in this encounter Additional Health Concerns Infection Onset Date Last Indicated Resolved Time COVID 19 (Confirmed) Comment:IPA has verified patient has a COVID-19 positive result. A chart review has been completed, EPI PUI has been completed and sent to appropriate Health Dept. IPAC Sampler Tester: Doyle 06/12/2021 06/12/2021 07/03/2021 5: 23 AM EST Assessment Noted Time A fall risk assessment has been complete d for the patient 06/12/2021 10:08 AM EST documented as of this encounter Care Teams Transit Vehicle Inspector Relationship Specialty Start Date End Date Michele Wright MD [address] [place] [address] PCP - General 10/11/20 Edgar Szymanski MD [address] [place] [address] Radiation Oncologist Radiation Therapy 03/14/20 4 Shun Hurst MD [address] [place] [address] Surgeon Neurosurgery 02/24/21 Divine Carpenter MD [address] Zun[address] [place] [address] Medical Oncologist Medical Oncology 06/13/21 documented as of this encounter
--- OUTSIDE RECORDS SUMMARY | 2024-05-03 13:41 | XMS_ITS | Encounter Summary ---
Author Organization [facility] Address [address] [place], [place] [id number] Care Team Providers Care Phosphatic Fertilizer Supervisor Name Role Phone Michele Wright MD Primary Care Provider + [phone] Edgar Szymanski MD Unavailable [phone] Shun Hurst MD Unavailable [phone] Dviine Carpenter MD Unavailable [phone] Reason for Visit * Reason Comments Follow-up Encounter Details Date Type Department Care Team ([facility] Contact Info) Description 06/30/2021 9:20 AM EST Office Visit Pav [facility] Head, Neck & Respiratory [address] [place] [address] Divine Carpenter MD 800 [facility] [address] [place] [address] Cancer of larynx (CMS/HCC) (Primary Dx) Social [...] Sign Reading Time Taken Comments Blood Pressure 136/73 06/30/2021 9:17 AM EST Pulse 70 06/30/2021 9:17 AM EST Temperature 37.2 ??C (99 ??F) 06/30/2021 9:17 AM EST Respiratory Rate 16 06/30/2021 9:17 AM EST Oxygen Saturation 96% 06/30/2021 9:17 AM EST Inhaled Oxygen Concentration - - Weight 95.5 kg (210 lb 8.6 oz) 06/30/2021 9:17 A M EST Height 176.5 cm (5' 9.49 ) 06/30/2021 9:17 AM ES T Body Mass Index 30.66 06/30/2021 9:17 AM EST documented in this encounter Miscellaneous Notes * Progress Notes - Hannah Sprague, TUBE BLOWER - 06/30/2021 9:20 AM EST MEDICAL ONCOLOGY FOLLOW-UP NOTE Patient Information Patient Name: Anibal Barreto Date of : 1965 REFERRING PHYSICIAN: Michele Wright MD Encounter Date: 06/30/2021 Treatment Diagnosis: Cancer Staging Cancer of larynx [...] with adenopathy in levels 2 through 4 [id number] PET/CT scan dated 02/19/2017 showed an intensely hypermetabolic epiglottis and mucosa extending to the true vocal cords, slightly asymmetric involving the right pyriform sinus and aryepiglottic fold with 27 4 mSUV along with intensely hypermetabolic bilateral cervical lymph nodes 4 A biopsy performed here at [facility] during direct examination on 03/03/2017 [...] limited neck dissection with ALT free flap, [id number] 7 Subsequent followup scans were negative for [...] received Remdesivir X 5 days, dexamethasone 17. 06/30/21- 17. Cancer of larynx ([facility]/HCC) 02/19/2017 Cancer Staged Staging form: Larynx - Glottis, AJCC 8th Edition, Clinical stage from 02/19/2017: Stage ZULAY (cT3, cN2c, cM0) - Signed by Divine Carpenter MD on 10/14/2020 03/18/2017 Initial Diagnosis Cancer of larynx ([facility]/HCC) 03/22/2018 Cancer Staged Staging form: Larynx - Glottis, AJCC 8th Edition, Pathologic stage from 03/22/2018: Stage III (rpT3, pN0, cM0) - Signed by Divine Carpenter MD on 10/14/2020 11/21/2019 Cancer Staged Staging form: Larynx - Glottis, AJCC 8th Edition, Pathologic stage from 11/21/2019: Stage IVC (rpTX,pNX, pM1) - Signed by Divine Carpenter MD on 10/14/2020 03/14/2020 - 11/24/2020 Research Study Participant [id number]: Pembrolizumab Every 42 Days Every 84 Days Plan Provider: Divine Carpenter MD Treatment goal: Palliative Line of treatment: Second Line Associated studies: Priming Immunotherapy in Advanced Disease with Radiation 11/26/2020 - Radiation Therapy The patient saw No care steam table attendant to display for radiation treatment. This is the current list ofradiation treatment: Radiation Treatments No radiation treatments to show. (Treatments may have been administered in another system.) 12/09/2020 - Radiation Therapy The patient saw No care steam table attendant to display for radiation treatment. This is [...] mL chemo IVPB, 750 mg, Intravenous, Once, 4 of 6 cycles Dose modification: 600 mg (original dose 750 mg, Cycle 6, Reason: Toxicity/Complication) Administration: 750 mg (03/10/2021), 750 mg (03/31/2021), 750 mg (04/29/2021), 750 mg (05/26/2021) fluorouracil (Adrucil) 8,750 mg in sodium chloride 0.9 % 230 mL chemo infusion - for home use, 4,000 mg/m2 = 8,750 mg, Intravenous, Over 96 hours, 4 of 6 cycles Dose modification: 3,000 mg/m2 (original dose 4,000 mg/m2, Cycle 5) Administration: 8,750 mg (03/10/2021), 8,750 mg (03/31/2021), 8,750 mg (04/29/2021), 8,750 mg (05/26/2021) aprepitant (Cinvanti) 130 MG/18ML IV 130 mg, 130 mg, Intravenous, Once, 4 of 6 cycles Administration: 130 mg (03/10/2021), 130 mg (03/31/2021), 130 mg (04/29/2021), 130 mg (05/26/2021) Secondary malignant neoplasm of chest wall (CMS/HCC) 11/26/2020 - Radiation Therapy The patient saw No care steam table attendant to display for radiation treatment. This is the current list ofradiation treatment: Radiation Treatments No radiation treatments to show. (Treatments may have been administered in another system.) 11/26/2020 Initial Diagnosis Secondary malignant neoplasm of chest wall (CMS/HCC) 12/09/2020 - Radiation Therapy The patient saw No care steam table attendant to display for radiation treatment. This is the current list ofradiation treatment: Radiation Treatments No radiation treatments to show. (Treatments may have been administered in another system.) Returns today after hospitalization for COVID - 06/12-06/16/21. Reports feeling 90% better. Continues feeling better each day. Denies fever, chills, NAUSEA AND VOMITING , eating well, + wt gain. Breathing is good, no cough, no sputum,. No chest pain. He had previously stopped all anti- hypertensives, and is now only taking Lisinopril and hydrochlorothiazide, BP s table today at 136/73. He is taking Morphine and oxycodone. Denies dysuria, hematuria, constipation, melena, diarrhea, hematochezia, hematemesis, abdominal pain, shortness of breath, cough, sputum production, mental status changes, neuropathy, palpitations, rash, itching, dysphagia. He was prescribed Duragesic while inpatient but is currently taking Morphine and not using patches. Pertinent outside records are reviewed today from recent hospitalization/visit to ER/to outside ER/outside my practice. Problem List and Medications Reviewed in this encounter by me personally Objective Performance Status 1: Restricted in physically strenuous activity but ambulatory and able to do light work Blood pressure 136/73, pulse 70, temperature 37.2 ??C (99 ??F), temperature source Oral, resp. rate16, height 1.765 m (5' 9.49 ), weight 95.5 kg (210 lb 8.6 oz), SpO2 96 %. EXAM General: Sitting/resting comfortably in chair, NAD HEENT: NCAT, PERRLA/EOMI, anicteric; no oral lesions Neck: Supple, no lymphadenopathy or JVD, noted superficial veins on upper chest, neck Heart: RRR, no MGR Lungs: CTAB; no rales, rhonchi or wheezes, trach in place, CDI Abdomen: Soft, NTND, + BS Extremities: No edema, distal pulses intact Musculoskeletal: No focal tenderness or deformity Skin: No visible rashes or lesions, PAC in place, no erythema Neuro: Grossly nonfocal; no localizing deficits of strength, sensation, or mentation Psychiatric: Normal mood and thought content LABORATORIES STUDIES: reviewed by me personally today to monitor for cancer related drug toxicity and treatment related fdc toxicity CBC WBC 0.71 Hgb 9.7 PLT 26 HCT 28.4 Lab Results Component Value Date NEUTROABS 0.47 (LL) 06/13/2021 BMPL Na 141 Cl 103 BUN 19 Gluc 94 K 4.1 Co2 27 Creat 0.66 LIVER FUNCTION TESTING Tot Prot 7.1 AST 20 Tot bili 0.6 ALT 13 Alkphos 69 Ca 8.9 Mg 1.8 Phos 3.9 Lab Results Component Value Date TSH 7.79 (H) 05/08/2021 Wt Readings from Last 6 Encounters: 06/30/21 95.5 kg (210 lb 8.6 oz) 06/25/21 93.1 kg (205 lb 4 oz) 06/12/21 89.3 kg (196 lb 13.9 oz) 05/30/21 94.6 kg (208 lb 8.9 oz) 05/26/21 100 kg (220 lb 14.4 oz) 05/12/21 97.2 kg (214 lb 4.6 oz) RADIOLOGY: I visualized the recent imaging below and discussed the current radiology findings with the patientin detail and provided the report to the patient and answered all questions. CT Soft Tissue Neck w IV Contrast 06/12/21 Impression: 1.Tracheostomy tube is missing. The subglottic trachea is patent. 2.Nonspecific increased abnormal thickening of the chatterjee of the neopharynx. This may be treatment related though tumor recurrence cannot be excluded. 3.Otherwise, unchanged postoperative appearance to the neck including laryngectomy. CT Angio Pulmonary Embolism 06/12/21 Impression: No acute disease Assessment/Plan Hannah Sprague APRN Orders Placed This Encounter Procedures ??? CBC and differential ??? Comprehensive metabolic panel ??? Magnesium 1. Cancer management : Cancer Staging Cancer of larynx (CMS/HCC), Staging form: Larynx - Glottis, AJCC 8th Edition, Pathologic: Stage IVC (recurrent) -This represents a life threatening illness for which continued cancer treatment is indicated. - I independently visualized and reviewed the current radiology findings with the patient in detailand answered all questions. I agree that this shows no evidence of progression. - continue 5FU + Carboplatin, dose reduction 75% on 5 FU and Carbo to AUC of 4 - RTC in 4 W 2. Dizziness and presyncope- likely related to BP fluctuations, - Patient reported feeling dizzy after he bends over to pick something up and then stands up - Hypertensive during recent inpatient stay, now taking only Lisinopril and HCTZ - PCP managing, will monitor closely 2. Pain related to neoplasm: chronic with [...] Regimen Related Toxicity: - Chemotherapy Induced Nausea: Prescribed ondansetron, compazine and will monitor for nausea and vomiting. - Reasonably controlled. 6. COVID infection - now recovered -Agreed to Tammie today, will hold on COVID Booster and continue to reassess. He is 14 d post treatment. 35 minutes was spent on this encounter; including preparing to see the patient, which involved review/interpretation of diagnostics and reports; obtaining and/or reviewing separately obtained history; performing appropriate physical exam; ordering/scheduling medications, tests or procedures; communicating findings and counseling/educating the patient, family and/or caregiver; documentation in EMR; and care coordination. The selection, dosing and administration of anti-cancer agents and the management of associated toxicities requires complex medical decision making and intensive monitoring for toxicity. Modifications of drug dose and schedule as well as the initiation of supportive care interventions are often necessary because of expected toxicities. This varies individually based on patient tolerability, priortreatments and comorbidities/risk status. Monitoring typically entails labs, imaging and/or other diagnostics, utilizing a healthcare delivery team experienced in the use of anticancer agents and themanagement of associated toxicities in patients with cancer. Attending physician previously developed plan of care, which I discussed with the patient, whom I saw independently. The patient verbalized understanding and agrees with plan. All questions answered to their satisfaction. Encouraged to call should other questions/concerns arise. * Progress Notes - John Mills, PharmD - 06/30/2021 9:20 AM EST Pharmacy Hematology/Oncology Follow-up Treatment Plan Note Anibal Barreto is a 56 y.o. 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 Cancer Staging Cancer of larynx (CMS/HCC) Staging [...] Signed by Divine Carpenter MD on 10/14/2020 Interval Assessment/Plan 01/13/21 - patient unfortunately progressed on pembro, will switch to carbo/cetux, no 5FU d/t predicted tolerability 02/17/21 - Mr. Barreto only received day 1 of cycle 1. He missed his day 8 appointment and the rescheduled infusion date. Plan to omit day 8 and 15 of cycle 1 and proceed with cycle 2, day 1 today since it has been ~21 days since he received chemotherapy. 03/10/21 - patient had anaphylaxis with cetuximab, will switch to carboplatin/5FU 05/19/21 - order for 05/26/21 reviewed ahead of time given holiday, order sent to [facility] on this day 06/30/21 - given significant neutropenia (ANC =300) from last cycle and recent hospitalization from [facility]-19, we are electing to dose reduce both carboplatin and 5-FU today. Treatment plan reviewed: C5 carboplatin/5FU Dosing Wt: 102 kg Today's Wt: 98.5 kg Dosing Ht: 177.8 cm DosingBSA: 2.19 m2 Recent Labs Lab Results Component Value Date WBC 4.59 06/30/2021 HGB 10.3 (L) 06/30/2021 HCT 31.4 (L) 06/30/2021 MCV 98 06/30/2021 PLT 132 (L) 06/30/2021 Lab Results Component Value Date GLUCOSE 120 (H) 06/30/2021 CALCIUM 9.1 06/30/2021 NA 142 06/30/2021 K 3.7 06/30/2021 CO2 26 06/30/2021 CL 103 06/30/2021 BUN 15 06/30/2021 CREATININE 0.69 (L) 06/30/2021 Lab Results Component Value Date ALT 14 06/30/2021 AST 11 (L) 06/30/2021 ALKPHOS 73 06/30/2021 BILITOT 0.5 06/30/2021 Lab Results Component Value Date NEUTROABS 3.72 06/30/2021 Lab Results Component Value Date MG 1.5 (L) 06/30/2021 Lab Results Component Value Date TSH 7.79 (H) 05/08/2021 No results found for: UTPCR Vitals: Visit Vitals BP 136/73 (BP Location: Left arm) Pulse 70 Temp 37.2 ??C (99 ??F) (Oral) Resp 16 Study Patient: No Chemotherapy Regimen Carboplatin AUC 4 IV D1 5-flourouracil 3000 mg/m2 (6550 mg) IV 1 Every 21 days [x] Dose reduced carboplatin by 20% to AUC 4 due to neutropenia [x] Dose reduced 5-FU by 25% to 750 mg/m2/day due to neutropenia For carboplatin: AdjBW (BMI >25): 85 SCr: 0.7 mg/dL (minimum 0.7 mg/dL utilized for calculation) eCrCl: 143.1 mL/min Current Treatment Plan History Carboplatin/5FU C1: 03/10/21 C2: 03/31/21 C3: 04/29/21 (delayed d/t neutropenia) C4: 05/26/21 C5: 06/30/21 (delayed d/t hospitalization and COVID; dose reduced carbo and 5-FU) Prior Chemotherapy History Pembrolizumab (Multi-20 study) C1: 03/14 C2: 04/04 C3: 04/25 (transition to 400 mg [id number]) C4: 06/03/20 C5: 07/22/20 C6: 09/02/20 C7: 10/14/20 Carbo/cetux C1: 01/27/21 (only received Day 1) C2: 02/17/21 (had anaphylaxis to cetuximab) Patient will return to clinic in 3 weeks. Will follow-up at that time. Pharmacist Attestation: John Mills PharmD 06/30/2021 10:38 AM Cosigned by Amadou Barragan, PharmD at 06/30/2021 11:13 AM EST Associated attestation - Amadou Barragan PharmD - 06/30/2021 11:13 AM EST Amadou Barragan PharmD, [facility] Oncology Clinical Pharmacist documented in this encounter Plan of Treatment Upcoming Encounters Date Type Department Care Team (Late st Contact Info) Description 07/17/2024 12:30 PM EST Clinical Support Pav CC Head, Neck & Respiratory [address] [facility], [address]nd [place] [phone] 07/17/2024 1:30 PM EST Appointment P[facility] G Radiology [address] [place] [address] 07/20/2024 2:50 PM EST Office Visit Pav CC Head, Neck & Respiratory [address] [place] [address] Divine Carpenter MD 800 [facility] Diane Zuniga [facility] [address] [place] [address] documented as of this encounter Results * (ABNORMAL) Magnesium (07/28/2021 9:23 AM EST) Magnesium, Plasma 1.6(L) 1.9 - 2.4 mg/dL 07/28/2021 10:05 AM EST HEALTHCARE LAB Blood Venous blood specimen / Unknown (Port) Long-term Catheter / Unknown 07/28/2021 9:23 AM EST 07/28/2021 9:26 AM EST Divine Carpenter MD LAB BLOOD ORDERABLES Final R esult [facility] [address] [place] [address] documented in this encounter Visit Diagnoses Diagnosis 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, unspecified site documented in this encounter Additional Health Concerns Infection Onset Date Last Indicated Resolved Time COVID 19 (Confirmed) Comment:IPA has verified patient has a COVID-19 positive result. A chart review has been completed, EPI PUI has been completed and sent to appropriate Health Dept. IPA Laundry Tech: Doyle 06/12/2021 06/12/2021 07/03/2021 5: 23 AM EST Assessment Noted Time A fall risk assessment has been complete d for the patient 06/30/2021 9:14 AM EST documented as of this encounter Care Teams Phosphatic Fertilizer Supervisor Relationship Specialty Start Date End Date Michele Wright MD [address] [place] [address] PCP - General 10/11/20 Edgar Szymanski MD 800 [facility] [address] [place] [address] Radiation Oncologist Radiation Therapy 03/14/20 4 Shun Hurst MD [address] [place] [address] Surgeon Neurosurgery 02/24/21 Divine Carpenter MD [address] Zuniga [address] [place] [address] Medical Oncologist Medical Oncology 06/13/21 documented as of this encounter
--- OUTSIDE RECORDS SUMMARY | 2024-05-03 13:41 | XMS_ITS | Encounter Summary ---
Author Organization [facility] Address [address] [place], [place] [id number] Care Team Providers Care Scrap Baller Name Role Phone Michele Wright MD Primary Care Provider + [phone] Edgar Szymanski MD Unavailable [phone] Shun Hurst MD Unavailable [phone] Divine Carpenter MD Unavailable [phone] Reason for Visit * Reason Onset Date Comments HCN - Patient Message 07/03/2021 Encounter Details Date Type Department Care Team (Late st Contact Info) Description 07/03/2021 Telephone [facility] [address] [place] [phone] Divine Carpenter MD [address] [address] HCN - Patient Message Social [...] Telephone Encounter - Ambika Ambriz RN - 07/03/2021 3:30 PM EST Per chemo. Ok to clamp and get here when he can. informed * Telephone Encounter - Ambika Ambriz RN - 07/03/2021 12:27 PM EST Patient cannot deaccess his own port. If cannot get here tomorrow afternoon will have to go to closest ED to have deaccessed and heparin instilled. * Telephone Encounter - Cristine Mackey - 07/03/2021 11:37 AM EST Patient Phone Message Time Sensitive Reason for Call: Amy Barreto called to speak to the nurse or doctor regarding her unplugging his chemo bagfrom the port. Patient wants to do it at home. Please give her a call as soon as possible. Best contact number and optimal time of day to reach caller: [phone] Note: Please do not reply to this [...] Pav CC Head, Neck & Respiratory [address] [facility], [address]nd [place] [address] 07/17/2024 1:30 PM EST Appointment [facility] Radiology [address] [place] [phone] 07/20/2024 2:50 PM EST Office Visit Pav CC Head, Neck & Respiratory [address] [place] [address] Divine Carpenter MD [address] [facility] [address] [place] [address] documented as of this encounter Visit Diagnoses Not on filedocumented in this encounter Additional Health Concerns Infection Onset Date Last Indicated Resolved Time COVID 19 (Confirmed) Comment:IPAC has verified patient has a COVID-19 positive result. A chart review has been completed, EPI PUI has been completed and sent to appropriate Health Dept. IPAC Plan Coordinator: Doyle 06/12/2021 06/12/2021 07/03/2021 5: 23 AM EST Assessment Noted Time A fall risk assessment has been complete d for the patient 06/30/2021 9:14 AM EST documented as of this encounter Care Teams Scrap Baller Relationship Specialty Start Date End Date Michele Wright MD [address] [place] [address] PCP - General 10/11/20 Edgar Szymanski MD [address] [facility] [address] [place] [address] Radiation Oncologist Radiation Therapy 03/14/20 4 Shun Hurst MD [address] [facility] [address] [place] [phone] Surgeon Neurosurgery 02/24/21 Divine Carpenter MD [address] [facility] [address] [place] [address] Medical Oncologist Medical Oncology 06/13/21 documented as of this encounter
--- OUTSIDE RECORDS SUMMARY | 2024-05-03 13:41 | XMS_ITS | Encounter Summary ---
Author Organization [facility] Address [address] [id number] Care Team Providers Care Public Works Inspector Name Role Phone Michele Wright MD Primary Care Provider + [phone] Edgar Szymanski MD Unavailable [phone] Shun Hurst MD Unavailable [phone] Divine Carpenter MD Unavailable [phone] Reason for Visit * Reason Comments Post-op patient states he is doing better, still having some trouble swallowing Encounter Details Date Type Department Care Team (Late st Contact Info) Description 07/15/2021 2:00 PM EST [facility] [address] [place] [address] Gil Hernandez MD [address] [place] [address] Pharyngoesophageal dysphagia (Primary Dx); History of laryngectomy; Cancer of larynx (CMS/HCC) [...] Sign Reading Time Taken Comments Blood Pressure 133/83 07/15/2021 2:24 PM EST Pulse 83 07/15/2021 2:24 PM EST Temperature - - Respiratory Rate - - Oxygen Saturation - - Inhaled Oxygen Concentration - - Weight 86.2 kg (190 lb) 07/15/2021 2:24 PM EST Height 177.8 cm (5' 10 ) 07/15/2021 2:24 PM EST Body Mass Index 27.26 07/15/2021 2:24 PM EST documented in this encounter Miscellaneous Notes * Progress Notes - Gil Hernandez MD - 07/15/2021 2:00 PM EST I had the pleasure of seeing Anibal Barreto today, who is a 56 y.o. male that returns to the clinic for follow-up of his swallowing. He has metastatic supraglottic squamous cell carcinoma that is currently still being treated with Dr. Carpenter at [facility] with chemotherapy for maintenance. He denies any [...] scant fungal organisms and bacterial species seen. Visit Vitals BP 133/83 Pulse 83 Ht 1.778 m (5' 10 ) Wt 86.2 kg (190 lb) BMI 27.26 kg/m?? Smoking Status Former Smoker BSA 2.06 m?? Allergies Allergen Reactions ??? Cetuximab Anaphylaxis SOA, hypotension, after 9 ml of drug ??? Docetaxel Rash, Shortness of breath and Unknown Patient very dyspnic, flushed, severe back pain. Patient very dyspnic, flushed, severe back pain. Patient very dyspnic, flushed, severe back pain. ??? Methadone Rash, Other and Unknown entire 14 point ROS was negative with [...] Neuro: CN II-XII intact, gait normal A/P I would like to dilate him again to a higher degree in the OR. Will send him in some diflucan to take for the 2 weeks prior to surgery to make sure he is clear of any fungal infection prior to surgery so that there is less irritation and inflammation in there. Consented today for esophageal dilation, possible super dilation. t documented in this encounter Plan of Treatment Upcoming Encounters Date Type Department Care Team ([facility] st Contact Info) Description 07/17/2024 12:30 PM EST Clinical Support Pav CC Head, Neck & Respiratory [address] [facility], [address]nd [place] [address] 07/17/2024 1:30 PM EST Appointment [facility] Radiology [address] [place] [address] 07/20/2024 2:50 PM EST Office Visit Pav CC Head, Neck & Respiratory [address] [place] [address] Divine Carpenter MD [address]un[address] [facility] [address] [place] [address] documented as of this encounter Visit Diagnoses Diagnosis Pharyngoesophageal dysphagia- Primary Dysphagia, pharyngoesophageal phase History of laryngectomy Other postprocedural status 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, unspecified site documented in this encounter Additional Health Concerns Assessment Noted Time A fall risk assessment has been complete d for the patient 07/05/2021 1:53 PM EST documented as of this encounter Care Teams Public Works Inspector Relationship Specialty Start Date End Date Michele Wrigth MD [address] [place] [address] PCP - General 10/11/20 Edgar Szymanski MD [address] [facility] [address] [place] [address] Radiation Oncologist Radiation Therapy 03/14/20 4 Shun Hurst MD [address] [facility] [address] [place] [address] Surgeon Neurosurgery 02/24/21 Divine Carpenter MD [address] [facility] [address] [place] [phone] Medical Oncologist Medical Oncology 06/13/21 documented as of this encounter
--- OUTSIDE RECORDS SUMMARY | 2024-05-03 13:41 | XMS_ITS | Encounter Summary ---
Author Organization [facility] Address [address] [place], [place] [id number] Care Team Providers Care Warehouse Supervisor 3Rd Shift Name Role Phone Michele Wright MD Primary Care Provider + [phone] Edgar Szymanski MD Unavailable [phone] Shun Hurst MD Unavailable [phone] Divine Carpenter MD Unavailable [phone] Encounter Details Date Type Department Care Team (Late st Contact Info) Description 06/20/2021 Orders Only Pav CC Head, Neck & Respiratory 800 [facility], 2nd [place] [address] Amadou Barragan, PharmD [address] [phone] Social History Tobacco Use Types Packs/Day Years [...] have Coronavirus / COVID-19? No / Unsure 06/12/2021 9:57 AM EST documented as of this encounter Plan of Treatment Upcoming Encounters Date Type Department Care Team (Late st Contact Info) Description 07/17/2024 12:30 PM EST Clinical Support Pav CC Head, Neck & Respiratory 800 [facility], 2nd [place] [address] 07/17/2024 1:30 PM EST Appointment PAV G Radiology [address] [place] [address] 07/20/2024 2:50 PM EST Office Visit Pav CC Head, Neck & Respiratory 800 [facility], 2nd [place] [address] Divine Carpenter MD 800 [facility] [address] [place] [address] documented as of this encounter Visit Diagnoses Not on filedocumented in this encounter Additional Health Concerns Infection Onset Date Last Indicated Resolved Time COVID 19 (Confirmed) Comment:[facility] has verified patient has a COVID-19 positive result. A chart review has been completed, EPI PUI has been completed and sent to appropriate Health Dept. [facility] Shoemaking Finisher: Doyle 06/12/2021 06/12/2021 07/03/2021 5: 23 AM EST Assessment Noted Time A fall risk assessment has been complete d for the patient 06/12/2021 10:08 AM EST documented as of this encounter Care Teams Warehouse Supervisor 3Rd Shift Relationship Specialty Start Date End Date Michele Wright MD [address] [place] [address] PCP - General 10/11/20 Edgar Szymanski MD 800 [facility] [address] [place] [phone] Radiation Oncologist Radiation Therapy 03/14/20 4 Shun Hurst MD [address] [facility] [address] [place] [address] Surgeon Neurosurgery 02/24/21 Divine Carpenter MD [address] [place] [address] Medical Oncologist Medical Oncology 06/13/21 documented as of this encounter
--- OUTSIDE RECORDS SUMMARY | 2024-05-03 13:41 | XMS_ITS | Encounter Summary ---
Author Organization Healthcare Address [address] [place] [address] Care Team Providers Care Ultrasound Sonographer Name Role Phone Michele Wright MD Primary Care Provider + [phone] Edgar Szymanski MD Unavailable [phone] Shun Hurst MD Unavailable [phone] Divine Carpenter MD Unavailable [phone] Encounter Details Date Type Department Care Team (Latest Contact Info) Description 07/23/2021 Travel Social History Tobacco Use Types Packs/Day [...] Upcoming Encounters Date Type Department Care Team ([facility] st Contact Info) Description 07/17/2024 12:30 PM EST Clinical Support Pav CC Head, Neck & Respiratory 800 [facility], [address]nd [place] [address] 07/17/2024 1:30 PM EST Appointment PAV G Radiology [address] [place] [address] 07/20/2024 2:50 PM EST Office Visit Pav CC Head, Neck & Respiratory 800 [facility], [address]nd [place] [address] Divine Carpenter MD 800 [facility] Diane Zuniga [facility] [address] [place] [address] documented as of this encounter Visit Diagnoses Not on filedocumented in this encounter Additional Health Concerns Assessment Noted Time A fall risk assessment has been complete d for the patient 07/05/2021 1:53 PM EST documented as of this encounter Care Teams Ultrasound Sonographer Relationship Specialty Start Date End Date Michele Wright MD [address] [place] [address] PCP - General 10/11/20 Edgar Szymanski MD 800 [facility] [address] [place] [address] Radiation Oncologist Radiation Therapy 03/14/20 4 Shun Hurst MD [address] [facility] [address] [place] [address] Surgeon Neurosurgery 02/24/21 Divine Carpenter MD 800 [facility] Diane Zuniga [facility] [address] [place] [address] Medical Oncologist Medical Oncology 06/13/21 documented as of this encounter
--- OUTSIDE RECORDS SUMMARY | 2024-05-03 13:41 | XMS_ITS | Encounter Summary ---
Author Organization Healthcare Address [address] [place] [address] Care Team Providers Care Library Services Coordinator Name Role Phone Michele Wright MD Primary Care Provider + [phone] Edgar Szymanski MD Unavailable [phone] Shun Hurst MD Unavailable [phone] Divine Carpenter MD Unavailable [phone] Encounter Details Date Type Department Care Team (Latest Contact Info) Description 06/25/2021 Travel Social History Tobacco Use Types Packs/Day [...] Upcoming Encounters Date Type Department Care Team ([facility] st Contact Info) Description 07/17/2024 12:30 PM EST Clinical Support Pav CC Head, Neck & Respiratory 800 [facility], 2nd [place] [address] 07/17/2024 1:30 PM EST Appointment PAV G Radiology [address] [place] [address] 07/20/2024 2:50 PM EST Office Visit Pav CC Head, Neck & Respiratory [address] 2nd [place] [address] Divine Carpenter MD 800 [facility] Diane Zuniga [facility] [address] [place] [address] documented as of this encounter Visit Diagnoses Not on filedocumented in this encounter Additional Health Concerns Infection Onset Date Last Indicated Resolved Time COVID 19 (Confirmed) Comment:[facility] has verified patient has a COVID-19 positive result. A chart review has been completed, EPI PUI has been completed and sent to appropriate Health Dept. [facility] Utility Agent: Doyle 06/12/2021 06/12/2021 07/03/2021 5: 23 AM EST Assessment Noted Time A fall risk assessment has been complete d for the patient 06/25/2021 9:49 AM EST documented as of this encounter Care Teams Library Services Coordinator Relationship Specialty Start Date End Date Michele Wright MD [address] [place] [address] PCP - General 10/11/20 Edgar Szymanski MD 800 [facility] [address] [place] [address] Radiation Oncologist Radiation Therapy 03/14/20 4 Shun Hurst MD [address] [facility] [address] [place] [address] Surgeon Neurosurgery 02/24/21 Divine Carpenter MD [address] Rosasson [facility] [address] [place] [address] Medical Oncologist Medical Oncology 06/13/21 documented as of this encounter
--- OUTSIDE RECORDS SUMMARY | 2024-05-03 13:41 | XMS_ITS | Encounter Summary ---
Author Organization [facility] Address [address] [place], [place] [address] Care Team Providers Care Intelligence Manager Name Role Phone Michele Wright MD Primary Care Provider + [phone] Edgar Szymanski MD Unavailable [phone] Shun Hurst MD Unavailable [phone] Divine Carpenter MD Unavailable [phone] Reason for Visit * Reason Onset Date Comments HCN - Patient Message 06/23/2021 Encounter Details Date Type Department Care Team (Late st Contact Info) Description 06/23/2021 Telephone Pav CC Head, Neck & Respiratory 800 [facility], 2nd [place] [address] Divine Carpenter MD 800 [facility] [address] [place] [address] HCN - Patient Message Social History Tobacco [...] Telephone Encounter - Ambika Ambriz RN - 06/25/2021 3:47 PM EST Be here Wednesday at 0910 to see MD and get treatment * Telephone Encounter - Ambika Ambriz RN - 06/23/2021 3:49 PM EST Don't come in today. Will call to see him next week, * Telephone Encounter - Gracia Zhao - 06/23/2021 9:56 AM EST Jayden Need to speak to nurse about infusions if he needs to come today Please call documented in this encounter Plan of Treatment Upcoming Encounters Date Type Department Care Team (Late st Contact Info) Description 07/17/2024 12:30 PM EST Clinical Support Pav CC Head, Neck & Respiratory [address] [facility], [address]nd [place] [address] 07/17/2024 1:30 PM EST Appointment PAV G Radiology [address] [place] [address] 07/20/2024 2:50 PM EST Office Visit Pav CC Head, Neck & Respiratory [address] [facility], 2nd [place] [address] Divine Carpenter MD 800 [facility] [address] [place] [address] documented as of this encounter Visit Diagnoses Not on filedocumented in this encounter Additional Health Concerns Infection Onset Date Last Indicated Resolved Time COVID 19 (Confirmed) Comment:[facility] has verified patient has a COVID-19 positive result. A chart review has been completed, EPI PUI has been completed and sent to appropriate Health Dept. [facility] Fur Designer: Doyle 06/12/2021 06/12/2021 07/03/2021 5: 23 AM EST Assessment Noted Time A fall risk assessment has been complete d for the patient 06/12/2021 10:08 AM EST documented as of this encounter Care Teams Intelligence Manager Relationship Specialty Start Date End Date Michele Wright MD [address] [place] [address] PCP - General 10/11/20 Edgar Szymanski MD [address] [facility] [address] [place] [address] Radiation Oncologist Radiation Therapy 03/14/20 4 Shun Hurst MD [address] [place] [address] Surgeon Neurosurgery 02/24/21 Divine Carpenter MD [address] [place] [address] Medical Oncologist Medical Oncology 06/13/21 documented as of this encounter
--- OUTSIDE RECORDS SUMMARY | 2024-05-03 13:41 | XMS_ITS | Encounter Summary ---
Author Organization [facility] Address [address] [place] [address] Care Team Providers Care Telephone Lineworker Name Role Phone Michele Wright MD Primary Care Provider + [phone] Edgar Szymanski MD Unavailable [phone] Shun Hurst MD Unavailable [phone] Divine Carpenter MD Unavailable [phone] Encounter Details Date Type Department Care Team (Late st Contact Info) Description 06/30/2021 9:10 AM EST Office Visit Pav CC Head, Neck & Respiratory 800 [facility], 2nd [place] [address] Cancer of larynx (CMS/HCC) (Primary Dx) Social [...] [facility], 2nd [place] [address] 07/17/2024 1:30 PM EST Appointment PAV G Radiology [address] [place] [address] 07/20/2024 2:50 PM EST Office Visit Pav CC Head, Neck & Respiratory 800 [facility], 2nd [place] [address] Divine Carpenter MD 800 [facility] [address] [place] [address] documented as of this encounter Procedures Procedure Name Priority Date/Time Associated Diagnosis Comments CBC WITH AUTO DIFFERENTIAL Routine 06/30/2021 9:45 AM EST Cancer of larynx (CMS/HCC) MAGNESIUM, PLASMA Routine 06/30/2021 9:4 4 AM EST Cancer of larynx (CMS/HCC) COMPREHENSIVE METABOLIC PANEL, PLASMA Routine 06/30/2021 9:44 AM EST Cancer of larynx (CMS/HCC) documented in this encounter Results * (ABNORMAL) CBC and Differential (06/30/2021 9:45 AM EST) WBC Count 4.59 3.70 - 10.30 10*3/uL LAB HEMATOLOGY METHOD 06/30/2021 10:07 AM EST [email or web address] RBC Count 3.22(L) 4.60 - 6.10 10*6/uL LAB HEMATOLOGY METHOD 06/30/2021 10:07 AM EST [facility] HGB 10.3(L) 13.7 - 17.5 g/dL LAB HEMATOLOGY METHOD 06/30/2021 10:07 AM EST [facility] HCT 31.4(L) 40.0 - 51.0 % LAB HEMATOLOGY METHOD 06/30/2021 10:07 AM EST [facility] Platelet Count 132(L) 155 - 369 10*3/uL LAB HEMATOLOGY METHOD 06/30/2021 10:07 AM [facility] MCV 98 79 - 98 fL LAB HEMATOLOGY METHOD 06/30/2021 10:07 AM EST [facility] MCH 32.0 26.0 - 32.0 pg LAB HEMATOLOGY METHOD 06/30/2021 10:07 AM [facility] MCHC 32.8 30.7 - 35.5 g/dL LAB HEMATOLOGY METHOD 06/30/2021 10:07 AM [facility] RDW 15.9(H) 11.5 - 14.5 % LAB HEMATOLOGY METHOD 06/30/2021 10:07 AM [facility] MPV 10.2 8.8 - 12.5 fL LAB HEMATOLOGY METHOD 06/30/2021 10:07 AM [facility] nRBC 1.1(H) <=0.0 per 100 WBCs LAB HEMATOLOGY METHOD 06/30/2021 10:07 AM [facility] Differential Type Automated LAB HEMATOLOGY METHOD 06/30/2021 10:07 AM [facility] Neutrophils % 81.0 % LAB HEMATOLOGY METHOD 06/30/2021 10:07 AM [facility] Lymphocytes % 5.0 % LAB HEMATOLOGY METHOD 06/30/2021 10:07 AM [facility] Monocytes % 12.0 % LAB HEMATOLOGY METHOD 06/30/2021 10:07 AM [facility] Eosinophils % 0.0 % LAB HEMATOLOGY METHOD 06/30/2021 10:07 AM [facility] Basophils % 0.0 % LAB HEMATOLOGY METHOD 06/30/2021 10:07 AM [facility] Immature Granulocytes % 2.0 % LAB HEMATOLOGY METHOD 06/30/2021 10:07 AM [facility] Neutrophils Absolute 3.72 1.60 - 6.10 10*3/uL LAB HEMATOLOGY METHOD 06/30/2021 10:07 AM [facility] Lymphocytes Absolute 0.25(L) 1.20 - 3.90 10*3/uL LAB HEMATOLOGY METHOD 06/30/2021 10:07 AM [facility] Monocytes Absolute 0.53 0.30 - 0.90 10*3/uL LAB HEMATOLOGY METHOD 06/30/2021 10:07 AM [facility] Eosinophils Absolute 0.00 0.00 - 0.50 10*3/uL LAB HEMATOLOGY METHOD 06/30/2021 10:07 AM [facility] Basophils Absolute 0.00 0.00 - 0.10 10*3/uL LAB HEMATOLOGY METHOD 06/30/2021 10:07 AM EST [facility] Immature Granulocytes Absolute 0.09(H) 0.00 - 0.06 10*3/uL LAB HEMATOLOGY METHOD 06/30/2021 10:07 AM EST [facility] Blood Venous blood specimen / Unknown (Port) Long-term Catheter / Unknown 06/30/2021 9:45 AM EST 06/30/2021 9:59 AM EST Narrative [facility] - 06/30/2021 10:07 AM EST Therapeutic decision making should be based on absolute values, rather than percentages. Divine Carpenter MD LAB BLOOD ORDERABLES Final R esult Performing Organization Address City/[facility] Co de Phone Number [facility] [address] [place] [address] * (ABNORMAL) Magnesium (06/30/2021 9:44 AM EST) Magnesium, Plasma 1.5(L) 1.9 - 2.4 mg/dL 06/30/2021 10:30 AM EST [facility] Blood Venous blood specimen / Unknown (Port) Long-term Catheter / Unknown 06/30/2021 9:44 AM EST 06/30/2021 9:59 AM EST Divine Carpenter MD LAB BLOOD ORDERABLES Final R esult Performing Organization Address City/[facility]/ZIP Co de Phone Number [facility] [address] [place] [address] * (ABNORMAL) Comprehensive Metabolic Panel, Plasma (06/30/2021 9:44 AM EST) Glucose, Plasma 120(H) 74 - 99 mg/dL 06/30/2021 10:30 AM EST [facility] BUN, Plasma 15 7 - 21 mg/dL 06/30/2021 10:30 AM EST [facility] Creatinine, Plasma 0.69(L) 0.80 - 1.30 mg/dL 06/30/2021 10:30 AM EST [facility] BUN/Creatinine Ratio 22 06/30/2021 10:30 AM EST [facility] Sodium, Plasma 142 136 - 145 mmol/L 06/30/2021 10:30 AM [facility] Potassium, Plasma 3.7 3.7 - 4.8 mmol/L 06/30/2021 10:30 AM [facility] Chloride, Plasma 103 97 - 107 mmol/L 06/30/2021 10:30 AM [facility] CO2, Plasma 26 22 - 29 mmol/L 06/30/2021 10:30 AM [facility] Anion Gap 13 6 - 16 mmol/L 06/30/2021 10:30 AM [facility] Total Calcium, Plasma 9.1 8.9 - 10.2 mg/dL 06/30/2021 10:30 AM [facility] Total Protein 6.7 6.3 - 7.9 g/dL 06/30/2021 10:30 AM [facility] Albumin, Plasma 3.7 3.5 - 5.2 g/dL 06/30/2021 10:30 AM [facility] AST, Plasma 11(L) 12 - 40 U/L 06/30/2021 10:30 AM [facility] ALT, Plasma 14 11 - 41 U/L 06/30/2021 10:30 AM [facility] Alkaline Phosphatase, Plasma 73 40 - 115 U/L 06/30/2021 10:30 AM [facility] Total Bilirubin, Plasma 0.5 0.2 - 1.1 mg/dL 06/30/2021 10:30 AM [facility] eGFR >60 >60 mL/min/1.7 3m*2 06/30/2021 10:30 AM [facility] Comment:eGFR = estimated GFR ; eGFR units = mL/min/1.73 sq meters Chronic Kidney Disease is considered if eGFR <60 mL/min/1.73 sq meters Kidney failure is considered if eGFR is <15 mL/min/1.73 sq meters. eGFR assumes steady state plasma creatinine concentration; not applicable if renal function is rapidly changing or patient is on dialysis. eGFR, if AFR/AM >60 >60 mL/min/1.7 3m*2 06/30/2021 10:30 AM [facility] Comment:eGFR = estimated GFR ; [...] / Unknown (Port) Long-term Catheter / Unknown 06/30/2021 9:44 AM EST 06/30/2021 9:59 AM EST Divine Carpenter MD LAB BLOOD ORDERABLES Final R esult [facility] [address] [place] [address] documented in this encounter Visit Diagnoses Diagnosis 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, unspecified site documented in this encounter Additional Health Concerns Infection Onset Date Last Indicated Resolved Time COVID 19 (Confirmed) Comment:[facility] has verified patient has a COVID-19 positive result. A chart review has been completed, EPI PUI has been completed and sent to appropriate Health Dept. [facility] Pol[employer]ilicon Preparation Worker: Doyle 06/12/2021 06/12/2021 07/03/2021 5: 23 AM EST Assessment Noted Time A fall risk assessment has been complete d for the patient 06/30/2021 9:14 AM EST documented as of this encounter Care Teams Telephone Lineworker Relationship Specialty Start Date End Date Michele Wright MD [address] [place] [address] PCP - General 10/11/20 Edgar Szymanski MD 800 [facility] [address] [place] [address] Radiation Oncologist Radiation Therapy 03/14/20 4 Shun Hurst MD [address] [place] [address] Surgeon Neurosurgery 02/24/21 Divine Carpenter MD [address] [place] [address] Medical Oncologist Medical Oncology 06/13/21 documented as of this encounter
--- OUTSIDE RECORDS SUMMARY | 2024-05-03 13:41 | XMS_ITS | Encounter Summary ---
Author Organization Healthcare Address [address] [place] [address] Care Team Providers Care Spray Machine Tender Name Role Phone Michele Wright MD Primary Care Provider + [phone] Edgar Szymanski MD Unavailable [phone] Shun Hurst MD Unavailable [phone] Divine Carpenter MD Unavailable [phone] Encounter Details Date Type Department Care Team (Latest Contact Info) Description 07/05/2021 Travel Social History Tobacco Use Types Packs/Day [...] Upcoming Encounters Date Type Department Care Team ([facility] st Contact Info) Description 07/17/2024 12:30 PM EST Clinical Support Pav CC Head, Neck & Respiratory 800 [facility], [address] [place] [address] 07/17/2024 1:30 PM EST Appointment PAV G Radiology [address] [place] [address] 07/20/2024 2:50 PM EST Office Visit Pav CC Head, Neck & Respiratory 800 [facility], [address] [place] [address] Divine Carpenter MD 800 [facility] Diane Zuniga [facility] [address] [place] [address] documented as of this encounter Visit Diagnoses Not on filedocumented in this encounter Additional Health Concerns Assessment Noted Time A fall risk assessment has been complete d for the patient 07/05/2021 1:53 PM EST documented as of this encounter Care Teams Spray Machine Tender Relationship Specialty Start Date End Date Michele Wright MD [address] [place] [address] PCP - General 10/11/20 Edgar Szymanski MD 800 [facility] [address] [place] [address] Radiation Oncologist Radiation Therapy 03/14/20 4 Shun Hurst MD [address] [facility] [address] [place] [address] Surgeon Neurosurgery 02/24/21 Divine Carpenter MD 800 [facility] Diane Zuniga [facility] [address] [place] [address] Medical Oncologist Medical Oncology 06/13/21 documented as of this encounter
--- OUTSIDE RECORDS SUMMARY | 2024-05-03 13:41 | XMS_ITS | Encounter Summary ---
Author Organization [facility] Address [address] [place] [address] Care Team Providers Care Bender Helper Name Role Phone Michele Wright MD Primary Care Provider + [phone] Edgar Szymanski MD Unavailable [phone] Shun Hurst MD Unavailable [phone] Divine Carpenter MD Unavailable [phone] Encounter Details Date Type Department Care Team (Late st Contact Info) Description 07/17/2021 Orders Only [facility] [address] [place] [address] Radha Rodarte, RN [facility]-INTERVENTIONAL RADIOLOGY ADMIN Encounter for preprocedure screening laboratory testing for COVID-19 (Primary Dx) Social History Tobacco Use Types [...] Respiratory 800 [facility], [address]nd [place] [address] 07/17/2024 1:30 PM EST Appointment PAV G Radiology [address] [place] [address] 07/20/2024 2:50 PM EST Office Visit Pav CC Head, Neck & Respiratory 800 [facility], [address]nd [place] [address] Divine Carpenter MD [address] [facility] [address] [place] [address] documented as of this encounter Results * SARS CoV-2/COVID-19 by PCR (07/21/2021 12:57 PM EST) SARS CoV-2/COVID-1 9 RNA PCR Result Not Detected Not Detected 07/22/2021 12:06 PM EST [facility] Swab Oropharyngeal structure / Unknown Non-blood Collection / Unknown 07/21/2021 12:57 PM EST 07/21/2021 12:57 PM EST us Gil Hernandez MD LAB MICROBIOLOGY - GENERAL ORDER PILLO Final Result [facility] [address] [place] [address] documented in this encounter Visit Diagnoses Diagnosis Encounter for preprocedure screening laboratory testing for COVID-19- Primary documented in this encounter Additional Health Concerns Assessment Noted Time A fall risk assessment has been complete d for the patient 07/05/2021 1:53 PM EST documented as of this encounter Care Teams Bender Helper Relationship Specialty Start Date End Date Michele Wright MD [address] [place] [address] PCP - General 10/11/20 Edgar Szymanski MD [address] [facility] [address] [place] [address] Radiation Oncologist Radiation Therapy 03/14/20 4 Shun Hurst MD [address] [place] [address] Surgeon Neurosurgery 02/24/21 Divine Carpenter MD [address] [facility] [facility] [address] [place] [address] Medical Oncologist Medical Oncology 06/13/21 documented as of this encounter
--- OUTSIDE RECORDS SUMMARY | 2024-05-03 13:41 | XMS_ITS | Encounter Summary ---
Author Organization [facility] Address [address] [place] [address] Care Team Providers Care Bottom Saw Operator Name Role Phone Michele Wright MD Primary Care Provider [phone] Edgar Szymanski MD Unavailable [phone] Shun Hurst MD Unavailable [phone] Bailey Ellis MD Unavailable [phone] Reason for Referral * Imaging (Routine) - Closed Specialty Diagnoses / Procedures Referred By Contac t Referred To Contact Radiology Diagnoses Cancer of larynx (CMS/HCC) Procedures CT Soft Tissue Neck w IV Contrast Bailey Ellis MD [address] [address] Phone: tel: fax: Referral ID Status Reason Start Date Expiration Date Visits Re quested Visits Authorized [id number] Closed 07/27/2021 01/26/2023 1 1 * Imaging (Routine) - Closed Specialty Diagnoses / Procedures Referred By Contac t Referred To Contact Radiology Diagnoses Cancer of larynx (CMS/HCC) Procedures CT Chest w IV Contrast Bailey Ellis MD [address] [address] Phone: tel: fax: Referral ID Status Reason Start Date Expiration Date Visits Re quested Visits Authorized [id number] Closed 07/27/2021 01/26/2023 1 1 Reason for Visit * Reason Comments Follow-up * Episode Based Medications (Routine) - Closed Specialty Diagnoses / Procedures Referred By Contac t Referred To Contact Diagnoses Cancer of larynx (CMS/HCC) Bailey Ellis MD 800 [facility] [place] [address] [address] Phone: tel: fax: [facility] [address] [place] [address] Phone: tel: Referral ID Status Reason Start Date Expiration Date Visits Re quested Visits Authorized [id number] Closed 02/17/2021 10/25/2021 1 78 Encounter Details Date Type Department Care Team ([facility] st Contact Info) Description 07/28/2021 9:00 AM EST Office Visit Pav CC Head, Neck & Respiratory 800 [facility], [address]nd [place] [address] Bailey Ellis MD 800 [facility] [place] [address] [address] Cancer of larynx (CMS/HCC) (Primary Dx) Social [...] Sign Reading Time Taken Comments Blood Pressure 153/83 07/28/2021 8:35 AM EST Pulse 64 07/28/2021 8:35 AM EST Temperature 37.1 ??C (98.7 ??F) 07/28/2021 8:35 AM ES T Respiratory Rate 18 07/28/2021 8:35 AM EST Oxygen Saturation 95% 07/28/2021 8:35 AM EST Inhaled Oxygen Concentration - - Weight 92.8 kg (204 lb 9.4 oz) 07/28/2021 8:35 A M EST Height 173.5 cm (5' 8.31 ) 07/28/2021 8:35 AM ES T Body Mass Index 30.83 07/28/2021 8:35 AM EST documented in this encounter Miscellaneous Notes * Progress Notes - Bailey Ellis MD - 07/28/2021 9:00 AM EST MEDICAL ONCOLOGY FOLLOW-UP NOTE Patient Information Patient Name: Anibal Barreto Date of : 1965 REFERRING PHYSICIAN: Michele Wright MD Encounter Date: 07/28/2021 Treatment Diagnosis: Cancer Staging Cancer of larynx [...] he returns for followup and for reassessment prior to next dose of current therapy. Oncology History Overview Note Mr [...] with adenopathy in levels 2 through 4 [id number] PET/CT scan dated 02/19/2017 showed an intensely hypermetabolic epiglottis and mucosa extending to the true vocal cords, slightly asymmetric involving the right pyriform sinus and aryepiglottic fold with 27 4 mSUV along with intensely hypermetabolic bilateral cervical lymph nodes 4 A biopsy performed [facility] during direct examination on 03/03/2017 [...] limited neck dissection with ALT free flap, [id number] 7 Subsequent followup scans were negative for [...] Following recovery, he restarted chemotherapy on 06/30/21 Cancer of larynx ([facility]/HCC) 02/19/2017 Cancer Staged Staging form: Larynx - [...] 10/14/2020 03/14/2020 - 11/24/2020 Research Study Participant [id number]: Pembrolizumab Every 42 Days Every 84 Days Plan Provider: Bailey Ellis MD Treatment goal: Palliative Line of treatment: Second Line Associated studies: Priming Immunotherapy in Advanced Disease with Radiation 11/26/2020 - Radiation Therapy The patient saw No care prepared foods production team member to display for radiation treatment. This is the current list ofradiation treatment: Radiation Treatments No radiation treatments to show. (Treatments may have been administered in another system.) 12/09/2020 - Radiation Therapy The patient saw No care prepared foods production team member to display for radiation treatment. [...] IVPB, 750 mg, Intravenous, Once, 6 of 7 cycles Dose modification: 600 mg (original dose 750 mg, Cycle 6, Reason: Toxicity/Complication) Administration: 750 mg (03/10/2021), 750 mg (03/31/2021), 750 mg (04/29/2021), 750 mg (05/26/2021), 600 mg (06/30/2021), 600 mg (07/28/2021) fluorouracil (Adrucil) 8,750 mg in sodium chloride 0.9 % 230 mL chemo infusion - for home use, 4,000 mg/m2 = 8,750 mg, Intravenous, Over 96 hours, 6 of 7 cycles Dose modification: 3,000 mg/m2 (original dose 4,000 mg/m2, Cycle 5) Administration: 8,750 mg (03/10/2021), 8,750 mg (03/31/2021), 8,750 mg (04/29/2021), 8,750 mg (05/26/2021), 6,550 mg (06/30/2021), 6,350 mg (07/28/2021) aprepitant (Cinvanti) 130 MG/18ML IV 130 mg, 130 mg, Intravenous, Once, 6 of 7 cycles Administration: 130 mg (03/10/2021), 130 mg (03/31/2021), 130 mg (04/29/2021), 130 mg (05/26/2021), 130 mg (06/30/2021), 130 mg (07/28/2021) Secondary malignant neoplasm of chest wall (CMS/HCC) 11/26/2020 - Radiation Therapy The patient saw No care prepared foods production team member to display for radiation treatment. This is the current list ofradiation treatment: Radiation Treatments No radiation treatments to show. (Treatments may have been administered in another system.) 11/26/2020 Initial Diagnosis Secondary malignant neoplasm of chest wall (CMS/HCC) 12/09/2020 - Radiation Therapy The patient saw No care prepared foods production team member to display for radiation treatment. This is the current list ofradiation treatment: Radiation Treatments No radiation treatments to show. (Treatments may have been administered in another system.) Currently, he denies fever, or chills, dysuria, hematuria, constipation, melena, diarrhea, hematochezia, hematemesis, abdominal pain, shortness of breath, cough, sputum production, and is tolerating therapy well. Problem List and Medications Reviewed in this encounter by me personally Objective Performance Status 1: Restricted in physically strenuous activity but ambulatory and able to do light work Blood pressure 153/83, pulse 64, temperature 37.1 ??C (98.7 ??F), temperature source Oral, resp. rate 18, height 1.735 m (5' 8.31 ), weight 92.8 kg (204 lb 9.4 oz), SpO2 95 %. EXAM Physical Exam [...] cancer related drug toxicity and treatment related machine long goods helper toxicity CBC WBC 3.28 Hgb 9.5 PLT 145 HCT 29.7 Lab Results Component Value Date NEUTROABS 2.32 07/28/2021 BMPL Na 141 Cl 101 BUN 12 Gluc 106 K 3.8 Co2 32 Creat 0.69 LIVER FUNCTION TESTING Tot Prot 6.5 AST 15 Tot bili 0.4 ALT 9 Alkphos 89 Ca 9.1 Mg 1.6 Phos 3.9 Lab Results Component Value Date TSH 1.11 07/28/2021 Assessment/Plan 1. Cancer management : Cancer Staging [...] of 4 - RTC in 4 W with scans, and discussed continuing current chemotherapy after the 6th cycle, based on his next CT results. Patient agreeable. 2. Dizziness and presyncope- likely related to BP fluctuations, - Hypertensive during recent inpatient stay, now [...] COVID infection - now recovered - s/p Evusheld, but will redose in one month per new EUA dosing. Will hold on COVID Booster and continue to reassess. He is 14 d post treatment. Bailey Ellis MD Orders Placed This Encounter Procedures ??? CT Chest w IV Contrast ??? CT Soft Tissue Neck w IV Contrast ??? CBC and Differential ??? Comprehensive Metabolic Panel, Plasma ??? Thyroid Stimulating Hormone, Plasma * Progress Notes - Amadou Barragan, PharmD - 07/28/2021 9:00 AM EST Pharmacy Hematology/Oncology Follow-up Treatment Plan [...] Signed by Bailey Ellis MD on 10/14/2020 Interval Assessment/Plan 01/13/21 - [...] time given holiday, order sent to [facility] on this day 06/30/21 - given significant neutropenia (ANC =300) from last cycle and recent hospitalization from COVID-19, we are electing to dose reduce both carboplatin and 5-FU today. Treatment plan reviewed: C6 carboplatin/5FU Dosing Wt: 93.2 kg Today's Wt: 93.2 kg Dosing Ht: 177.8 cm DosingBSA: 2.11 m2 Recent Labs Lab Results Component Value Date WBC 3.28 (L) 07/28/2021 HGB 9.5 (L) 07/28/2021 HCT 29.7 (L) 07/28/2021 MCV 97 07/28/2021 PLT 145 (L) 07/28/2021 Lab Results Component Value Date GLUCOSE 106 (H) 07/28/2021 CALCIUM 9.1 07/28/2021 NA 141 07/28/2021 K 3.8 07/28/2021 CO2 32 (H) 07/28/2021 CL 101 07/28/2021 BUN 12 07/28/2021 CREATININE 0.69 (L) 07/28/2021 Lab Results Component Value Date ALT 9 (L) 07/28/2021 AST 15 07/28/2021 ALKPHOS 89 07/28/2021 BILITOT 0.4 07/28/2021 Lab Results Component Value Date NEUTROABS 2.32 07/28/2021 Lab Results Component Value Date MG 1.6 (L) 07/28/2021 Lab Results Component Value Date TSH 1.11 07/28/2021 No results found for: UTPCR Vitals: Visit Vitals BP 153/83 (BP Location: Left arm) Pulse 64 Temp 37.1 ??C (98.7 ??F) (Oral) Resp 18 Study Patient: No Chemotherapy Regimen Carboplatin AUC 4 IV D1 5-flourouracil 3000 mg/m2 (6350 mg) IV 1 Every 21 days [x] Dose reduced carboplatin by 20% to AUC 4 due to neutropenia [x] Dose reduced 5-FU by 25% to 750 mg/m2/day due to neutropenia Current Treatment Plan History Carboplatin/5FU C1: 03/10/21 C2: 03/31/21 C3: 04/29/21 (delayed d/t neutropenia) C4: 05/26/21 C5: 06/30/21 (delayed d/t hospitalization and COVID; dose reduced carbo and 5-FU) C6: 07/28/21 Prior Chemotherapy History Pembrolizumab (Multi-20 study) C1: 03/14 C2: 04/04 C3: 04/25 (transition to 400 mg [id number]) C4: 06/03/20 C5: 07/22/20 C6: 09/02/20 C7: 10/14/20 Carbo/cetux C1: 01/27/21 (only received Day 1) C2: 02/17/21 (had anaphylaxis to cetuximab) Patient will return to clinic in 3 weeks. Will follow-up at that time. Pharmacist Attestation: Amadou Barragan, PharmD 07/28/2021 10:12 AM documented in this encounter Plan of Treatment Upcoming Encounters Date Type Department Care Team (Late st Contact Info) Description 07/17/2024 12:30 PM EST Clinical Support Pav CC Head, Neck & Respiratory [address] [facility], [address] [place] [id number] 07/17/2024 1:30 PM EST Appointment [facility] [address] [place] [address] 07/20/2024 2:50 PM EST Office Visit Pav CC Head, Neck & Respiratory 800 [facility], [address] [place] [phone] Bailey Ellis MD [address] [facility] [address] [place] [address] documented as of this encounter Results * [...] W IV CONTRAST ordered by BAILEY ELLIS, [id number] CLINICAL INDICATION: Laryngeal cancer status post chemoradiation [...] W IV CONTRAST ordered by BAILEY MOREIRA, [id number] CLINICAL INDICATION: Laryngeal cancer status post chemoradiation [...] by Mya Rodriguez on 08/15/2021 11:10 AM Bailey Ellis MD IMG CT PROCEDURES [...] Sargent on 08/14/2021 2:15 PM Signed by rBianna Carranza on 08/14/2021 2:48 PM Narrative 08/14/2021 2:48 PM EDT Exam/Procedure: CT CHEST W IV CONTRAST ordered by BAILEY ELLIS, [id number] CLINICAL INDICATION: Cough, persistent ?? TECHNIQUE: Multiple [...] of coronary artery and thoracic aorta. Left-sided [id number]-[id number] with tip at the right atrium. Patulous [...] CHEST W IV CONTRAST ordered by BAILEY ELLIS,[id number] CLINICAL INDICATION: Cough, persistent TECHNIQUE: Multiple CT [...] calcification ofcoronary artery and thoracic aorta. Left-sided [id number] with tip atthe right atrium. Patulous esophagus. [...] 08/14/2021 2:48 PM us Bailey Ellis MD IM CT PROCEDURES Final Resu lt * (ABNORMAL) CBC and Differential (07/28/2021 9:24 AM EST) WBC Count 3.28(L) 3.70 - 10.30 10*3/uL LAB HEMATOLOGY METHOD 07/28/2021 9:35 AM EST [facility] RBC Count 3.07(L) 4.60 - 6.10 10*6/uL LAB HEMATOLOGY METHOD 07/28/2021 9:35 AM EST [facility] HGB 9.5(L) 13.7 - 17.5 g/dL LAB HEMATOLOGY METHOD 07/28/2021 9:35 AM EST [facility] HCT 29.7(L) 40.0 - 51.0 % LAB HEMATOLOGY METHOD 07/28/2021 9:35 AM EST [facility] Platelet Count 145(L) 155 - 369 10*3/uL LAB HEMATOLOGY METHOD 07/28/2021 9:35 AM EST [facility] MCV 97 79 - 98 fL LAB HEMATOLOGY METHOD 07/28/2021 9:35 AM [facility] MCH 30.9 26.0 - 32.0 pg LAB HEMATOLOGY METHOD 07/28/2021 9:35 AM [facility] MCHC 32.0 30.7 - 35.5 g/dL LAB HEMATOLOGY METHOD 07/28/2021 9:35 AM [facility] RDW 15.8(H) 11.5 - 14.5 % LAB HEMATOLOGY METHOD 07/28/2021 9:35 AM EST [facility] MPV 10.7 8.8 - 12.5 fL LAB HEMATOLOGY METHOD 07/28/2021 9:35 AM [facility] nRBC 0.0 <=0.0 per 100 WBCs LAB HEMATOLOGY METHOD 07/28/2021 9:35 AM [facility] Differential Type Automated LAB HEMATOLOGY METHOD 07/28/2021 9:35 AM [facility] Neutrophils % 71.0 % LAB HEMATOLOGY METHOD 07/28/2021 9:35 AM EST [facility] Lymphocytes % 14.0 % LAB HEMATOLOGY METHOD 07/28/2021 9:35 AM EST [facility] Monocytes % 14.0 % LAB HEMATOLOGY METHOD 07/28/2021 9:35 AM [facility] Eosinophils % 0.0 % LAB HEMATOLOGY METHOD 07/28/2021 9:35 AM EST [facility] Basophils % 1.0 % LAB HEMATOLOGY METHOD 07/28/2021 9:35 AM EST [facility] Immature Granulocytes % 0.0 % LAB HEMATOLOGY METHOD 07/28/2021 9:35 AM EST [facility] Neutrophils Absolute 2.32 1.60 - 6.10 10*3/uL LAB HEMATOLOGY METHOD 07/28/2021 9:35 AM EST [facility] Lymphocytes Absolute 0.47(L) 1.20 - 3.90 10*3/uL LAB HEMATOLOGY METHOD 07/28/2021 9:35 AM EST [facility] Monocytes Absolute 0.45 0.30 - 0.90 10*3/uL LAB HEMATOLOGY METHOD 07/28/2021 9:35 AM EST [facility] Eosinophils Absolute 0.01 0.00 - 0.50 10*3/uL LAB HEMATOLOGY METHOD 07/28/2021 9:35 AM EST [facility] Basophils Absolute 0.02 0.00 - 0.10 10*3/uL LAB HEMATOLOGY METHOD 07/28/2021 9:35 AM EST [facility] Immature Granulocytes Absolute 0.01 0.00 - 0.06 10*3/uL LAB HEMATOLOGY METHOD 07/28/2021 9:35 AM EST [facility] Blood Venous blood specimen / Unknown (Port) Long-term Catheter / Unknown 07/28/2021 9:24 AM EST 07/28/2021 9:26 AM EST Bailey Ellis MD LAB BLOOD ORDERABLES Final R esult Performing Organization Address City/[facility] Co de Phone Number [facility] [address] [place] [address] * Thyroid Stimulating Hormone, Plasma (07/28/2021 9:23 AM EST) Thyroid Stimulating Hormone, Plasma 1.11 0.40 - 4.20 uIU/mL 07/28/2021 10:05 AM EST [facility] Blood Venous blood specimen / Unknown (Port) Long-term Catheter / Unknown 07/28/2021 9:23 AM EST 07/28/2021 9:26 AM EST Bailey Ellis MD LAB BLOOD ORDERABLES Final R esult [facility] [address] [place] [address] * (ABNORMAL) Comprehensive Metabolic Panel, Plasma (07/28/2021 9:23 AM EST) Glucose, Plasma 106(H) 74 - 99 mg/dL 07/28/2021 10:05 AM [facility] BUN, Plasma 12 7 - 21 mg/dL 07/28/2021 10:05 AM [facility] Creatinine, Plasma 0.69(L) 0.80 - 1.30 mg/dL 07/28/2021 10:05 AM [facility] BUN/Creatinine Ratio 17 07/28/2021 10:05 AM [facility] Sodium, Plasma 141 136 - 145 mmol/L 07/28/2021 10:05 AM [facility] Potassium, Plasma 3.8 3.7 - 4.8 mmol/L 07/28/2021 10:05 AM [facility] Comment:Reference range for Serum potassium is 0.2 to 0.5 mmol/L higher than Plasma range. Chloride, Plasma 101 97 - 107 mmol/L 07/28/2021 10:05 AM [facility] CO2, Plasma 32(H) 22 - 29 mmol/L 07/28/2021 10:05 AM [facility] Anion Gap 8 6 - 16 mmol/L 07/28/2021 10:05 AM [facility] Total Calcium, Plasma 9.1 8.9 - 10.2 mg/dL 07/28/2021 10:05 AM [facility] Total Protein 6.5 6.3 - 7.9 g/dL 07/28/2021 10:05 AM [facility] Albumin, Plasma 3.7 3.5 - 5.2 g/dL 07/28/2021 10:05 AM [facility] AST, Plasma 15 12 - 40 U/L 07/28/2021 10:05 AM [facility] ALT, Plasma 9(L) 11 - 41 U/L 07/28/2021 10:05 AM [facility] Alkaline Phosphatase, Plasma 89 40 - 115 U/L 07/28/2021 10:05 AM [facility] Total Bilirubin, Plasma 0.4 0.2 - 1.1 mg/dL 07/28/2021 10:05 AM [facility] eGFR >60 >60 mL/min/1.7 3m*2 07/28/2021 10:05 AM [facility] Comment:eGFR = estimated GFR ; eGFR [...] >60 >60 mL/min/1.7 3m*2 07/28/2021 10:05 AM EST [facility] Comment:eGFR = estimated GFR ; eGFR [...] 9:23 AM EST 07/28/2021 9:26 AM EST us Bailey Ellis MD LAB BLOOD ORDERABLES Final R esult [facility] [address] [phone] documented in this encounter Visit Diagnoses Diagnosis 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, unspecified site 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, unspecified site documented in this encounter Additional Health Concerns Assessment Noted Time A fall risk assessment has been complete d for the patient 07/28/2021 8:32 AM EST documented as of this encounter Care Teams Bottom Saw Operator Relationship Specialty Start Date End Date Michele Wright MD [address] [phone] PCP - General 10/11/20 Edgar Szymanski MD [address] [facility] [id number] [place] [address] Radiation Oncologist Radiation Therapy 03/14/20 4 Shun Hurst MD [address] [facility] [address] [place] [address] Surgeon Neurosurgery 02/24/21 Bailey Ellis MD [address] [facility] [address] [phone] Medical Oncologist Medical Oncology 06/13/21 documented as of this encounter
--- OUTSIDE RECORDS SUMMARY | 2024-05-03 13:41 | XMS_ITS | Encounter Summary ---
Author Organization Healthcare Address [address] [id number] Care Team Providers Care Hand Launderer Name Role Phone Michele Wright MD Primary Care Provider + [phone] Edgar Szymanski MD Unavailable [phone] Shun Hurst MD Unavailable [phone] Divine Carpenter MD Unavailable [phone] Reason for Visit * Auth/Cert Specialty Diagnoses / Procedures Referred By Contac t Referred To Contact Diagnoses Dysphagia dysphagia Procedures OK ESOPHAGOSCOPY FLEXIBLE TRANSORAL DIAGNOSTIC OK ESOPHAGOSCOPY FLEXIBLE TRANSORAL W SUBMUCOUS INJ OK ESOPHAGOSCOPY FLEXIBLE TRANSORAL WITH BIOPSY OK ESOPHAGOSCOPY FLEX BALLOON DILAT <30 MM DIAM OK ESOPHAGOSCOPY DILATE ESOPHAGUS BALLOON 30 MM FLEXIBLE ESOPHAGOSCOPY WITH BALLOON DILATION, POSS INJECTION OF STEROIDS, POSS ESOPHGEAL SUPER DILATION Gil Hernandez MD [address] [place] [address] Phone: tel: fax: [facility] [address] [place] [address] Phone: tel: Referral ID Status Reason Start Date Expiration Date Visits Re quested Visits Authorized [id number] 1 1 Encounter Details Date Type Department Care Team (Late st Contact Info) Description 07/24/2021 9:38 AM EST - 07/24/2021 10:48 AM EST Surgery [facility] [address] [place] [address] Gil Hernandez MD [address] [address] FLEXIBLE ESOPHAGOSCOPY WITH BALLOON DILATION, POSS INJECTION OF STEROIDS, POSS ESOPHGEAL SUPER DILATION Surgery Details Date/Time Status Location OR Service Patient Class Case Class Case Type Trauma Case? 07/24/2021 9:38 AM Posted RAHEL FRANCIS OR 4OR06 [facility] Outpatient Surgery E-Electiv e Panel 1 Procedure LRB Anes Op Region Wound Class Comments FLEXIBLE ESOPHAGOSCOPY WITH BALLOON DILATION, POSS INJECTION OF STEROIDS, POSS ESOPHGEAL SUPER DILATION N/A Class II/ Clean Contaminated Surgeon Surgeon Role Service Panel Gil Hernandez MD Primary ENT 1 Michele Torres MD Resident - Assisting 1 documented in this encounter Social History [...] Sign Reading Time Taken Comments Blood Pressure 108/71 07/24/2021 9:16 AM EST Pulse 77 07/24/2021 9:16 AM EST Temperature 36.9 ??C (98.4 ??F) 07/24/2021 9:16 AM ES T Respiratory Rate 20 07/24/2021 9:16 AM EST Oxygen Saturation 93% 07/24/2021 9:16 AM EST Inhaled Oxygen Concentration - - [...] Room or call the Emergency Department at [phone]. Smoking and its health risks ?? Smoking [...] help quitting smoking, call the [employer] [place]'s Quitline toll free at or ask your doctor for help. Weight Management ?? Weighing too much is not good for your health. Being overweight increases your risk of health conditions such as heart problems, high blood pressure, type 2 diabetes, and certain types of cancer. Being overweight can also increase your risk for osteoarthritis (cu-khv-cu-dgg-HSBK-mii) (joint disease), sleep apnea (abnormal breathing at [...] risk of health problems. Ask your dietitian, director of marketing communications or doctor about a weight loss goal [...] controlled substances: ?? Drug Enforcement Agency (MADELYN): http://www.deadiversion.usdoj.gov/drug_disposal/takeback/index.htm ?? National Association of Drug Diversion Investigators (NADDI): http://rxdrugdropbox.org/ ?? [place] Office of Drug Control Policy: http://odcp.ky.gov/Prescription+Drug+Drop+Box+Sites.htm Are there concerns about or ? ?? [...] look blue or purple What is a [facility] report? KEVAN is a system that tracks prescriptions of controlled substances in [place]. The [facility] report tells your doctor if you have been prescribed controlled substances in the past. Doctors must get a KEVAN report before prescribing controlled substances. What can I do if the information in my KEVAN report is wrong? You or your doctor may contact the dispenser who reported the information to [employer]. If the dispenser agrees that the information should be changed, he or she can fix the KEVAN report. However, the dispenser may certify that the report is correct. If that is the case, you or your doctor may then call the [place] Drug Enforcement and Professional Practices Branch at [...] local health department may offer these. ?? [employer]'s resources to help you quit: http://www.[facility]/TobaccoFree/ - Click on the Quit Here! tab. ?? A telephone quit line: (6-265-BLXZYFY) ?? Web sites: www.smokefree.gov, www.becomeanex.org, www.Countdown To Buy.Better World Books ?? Tobacco Treatment Counselors: Call 749-564-9388. Medicare and Medicaid pay for this. ?? employees, retirees, and their spouses or sponsored dependents can get free nicotine replacement therapy and coaching. Visit www.[facility]/HR/Wellness/consults.html. ?? [facility]: [...] Flexible esophagoscopy with superdilation Date: 07/25/21 Location: [facility] Name: Anibal Barreto, : 1965, Diagnoses: Pre-op Diagnosis Dysphagia Post-op Diagnosis Dysphagia Procedure(s): Flexible esophagoscopy with esophageal super dilation and TEP change. 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 Dilated to 90 Northern Irish. Much improved mucosa from prior thanks to pre-op diflucan. Indications: Anibal Barreto is an 56 y.o. male who is having surgery for dysphagia. Patient with worsening dysphagia at home but with no PEG tube for assistance. Consent obtained for esophagealdilation. Narrative: Patient brought into the operating room and general anesthesia administered. Patient rotated 90 degrees to the operating team and time-out performed. 5-0 ENDS DOWN CHECKER placed in the stoma and EGD scope was used to visualize the esophageal opening. Tight here and 18-20mm esophageal balloon passed through the EGD scope and dilated to 20mm. Then 30 Northern Irish bougie passed alongside to dilate in addition. Total dilation size of 90 guinean (30mm). Esophageal mucosa normal appearing and no [...] still being treated with Dr. Carpenter at [facility] with chemotherapy for maintenance. He denies [...] [facility], [address] [place] [address] 07/17/2024 1:30 PM EST Appointment [facility] [address] [place] [address] 07/20/2024 2:50 PM EST Office Visit [facility] [address] [facility], [address]nd [place] [address] Divine Carpenter MD [address] [facility] [address] [place] [address] documented as of this encounter Procedures Procedure [...] % nasal spray As needed, Starting on Nenita 07/24/21 at 1029, Until Nenita 07/24/21 at 1052, Routine, Intraprocedure Given 07/24/2021 10:29 AM EST 30 mL promethazine (Phenergan) injection 6.25 mg [...] as of this encounter Care Teams Hand Launderer Relationship Specialty Start Date End Date Michlee Wright MD [address] [place] [address] PCP - General 10/11/20 Edgar Szymanski MD 800 [facility] [address] [place] [address] Radiation Oncologist Radiation Therapy 03/14/20 4 Shun Hurst MD [address] [place] [address] Surgeon Neurosurgery 02/24/21 Divine Carpenter MD [address] [facility] [address] [place] [address] Medical Oncologist Medical Oncology 06/13/21 documented as of this encounter
--- OUTSIDE RECORDS SUMMARY | 2024-05-03 13:42 | XMS_ITS | Encounter Summary ---
Author Organization [facility] Address [address] [place], [place] [id number] Care Team Providers Care Circle Edger Name Role Phone Michele Wright MD Primary Care Provider + [phone] Edgar Szymanski MD Unavailable [phone] Shun Hurst MD Unavailable [phone] Encounter Details Date Type Department Care Team ([facility] Contact Info) Description 05/08/2021 11:30 AM EST Clinical Support [facility] [address], [address] [place] [address] Jayla Wheeler, RN PATIENT EDUCATION Cancer of larynx (CMS/HCC) Social History Tobacco [...] Upcoming Encounters Date Type Department Care Team ([facility] Contact Info) Description 07/17/2024 12:30 PM EST Clinical Support [facility] 800 [facility], [address]nd [place] [address] 07/17/2024 1:30 PM EST Appointment [facility] [address] [place] [address] 07/20/2024 2:50 PM EST Office Visit [facility] Respiratory [address] [facility], [address]nd [place] [address] Divine Carpenter MD [address] [facility] [address] [place] [address] documented as of this encounter Procedures Procedure Name Priority Date/Time Associated Diagnosis Comments CBC WITH AUTO DIFFERENTIAL Routine 05/08/2021 11:49 AM EST Cancer of larynx (CMS/HCC) TSH Routine 05/08/2021 11:48 AM EST Cancer of larynx (CMS/HCC) COMPREHENSIVE METABOLIC PANEL, PLASMA Routine 05/08/2021 11:48 AM EST Cancer of larynx (CMS/HCC) documented in this encounter Results * (ABNORMAL) CBC and Differential (05/08/2021 11:49 AM EST) WBC Count 3.76 3.70 - 10.30 10*3/uL LAB HEMATOLOGY METHOD 05/08/2021 3:36 PM EST [facility] RBC Count 3.23(L) 4.60 - 6.10 10*6/uL LAB HEMATOLOGY METHOD 05/08/2021 3:36 PM EST [facility] HGB 9.7(L) 13.7 - 17.5 g/dL LAB HEMATOLOGY METHOD 05/08/2021 3:36 PM EST [facility] HCT 29.4(L) 40.0 - 51.0 % LAB HEMATOLOGY METHOD 05/08/2021 3:36 PM EST [facility] Platelet Count 82(L) 155 - 369 10*3/uL LAB HEMATOLOGY METHOD 05/08/2021 3:36 PM [facility] MCV 91 79 - 98 fL LAB HEMATOLOGY METHOD 05/08/2021 3:36 PM [facility] MCH 30.0 26.0 - 32.0 pg LAB HEMATOLOGY METHOD 05/08/2021 3:36 PM [facility] MCHC 33.0 30.7 - 35.5 g/dL LAB HEMATOLOGY METHOD 05/08/2021 3:36 PM [facility] RDW 16.5(H) 11.5 - 14.5 % LAB HEMATOLOGY METHOD 05/08/2021 3:36 PM [facility] MPV 11.4 8.8 - 12.5 fL LAB HEMATOLOGY METHOD 05/08/2021 3:36 PM [facility] nRBC 0.0 <=0.0 per 100 WBCs LAB HEMATOLOGY METHOD 05/08/2021 3:36 PM [facility] Neutrophils % 74.0 % LAB HEMATOLOGY METHOD 05/08/2021 3:36 PM [facility] Lymphocytes % 13.0 % LAB HEMATOLOGY METHOD 05/08/2021 3:36 PM [facility] Monocytes % 12.0 % LAB HEMATOLOGY METHOD 05/08/2021 3:36 PM [facility] Eosinophils % 0.0 % LAB HEMATOLOGY METHOD 05/08/2021 3:36 PM [facility] Basophils % 0.0 % LAB HEMATOLOGY METHOD 05/08/2021 3:36 PM [facility] Immature Granulocytes % 1.0 % LAB HEMATOLOGY METHOD 05/08/2021 3:36 PM [facility] Neutrophils Absolute 2.75 1.60 - 6.10 10*3/uL LAB HEMATOLOGY METHOD 05/08/2021 3:36 PM [facility] Lymphocytes Absolute 0.50(L) 1.20 - 3.90 10*3/uL LAB HEMATOLOGY METHOD 05/08/2021 3:36 PM [facility] Monocytes Absolute 0.46 0.30 - 0.90 10*3/uL LAB HEMATOLOGY METHOD 05/08/2021 3:36 PM [facility] Eosinophils Absolute 0.01 0.00 - 0.50 10*3/uL LAB HEMATOLOGY METHOD 05/08/2021 3:36 PM [facility] Basophils Absolute 0.01 0.00 - 0.10 10*3/uL LAB HEMATOLOGY METHOD 05/08/2021 3:36 PM [facility] Immature Granulocytes Absolute 0.03 0.00 - 0.06 10*3/uL LAB HEMATOLOGY METHOD 05/08/2021 3:36 PM EST [facility] Blood Blood sample taken from central line / Unknown (Port) Long-term Catheter / Unknown 05/08/2021 11:49 AM EST 05/08/2021 12:10 PM EST Narrative [facility] - 05/08/2021 3:36 PM EST Therapeutic decision making should be based on absolute values, rather than percentages. us Divine Carpenter MD LAB BLOOD ORDERABLES Final R esult [facility] [address] [place] [address] * (ABNORMAL) Comprehensive Metabolic Panel, Plasma (05/08/2021 11:48 AM EST) Glucose, Plasma 84 74 - 99 mg/dL 05/08/2021 12:50 PM EST [facility] BUN, Plasma 10 7 - 21 mg/dL 05/08/2021 12:50 PM EST [facility] Creatinine, Plasma 0.62(L) 0.80 - 1.30 mg/dL 05/08/2021 12:50 PM EST [facility] BUN/Creatinine Ratio 16 05/08/2021 12:50 PM EST [facility] Sodium, Plasma 140 136 - 145 mmol/L 05/08/2021 12:50 PM EST [facility] Potassium, Plasma 3.9 3.7 - 4.8 mmol/L 05/08/2021 12:50 PM EST [facility] Chloride, Plasma 103 97 - 107 mmol/L 05/08/2021 12:50 PM EST [facility] CO2, Plasma 28 22 - 29 mmol/L 05/08/2021 12:50 PM EST [facility] Anion Gap 9 6 - 16 mmol/L 05/08/2021 12:50 PM EST [facility] Total Calcium, Plasma 8.7(L) 8.9 - 10.2 mg/dL 05/08/2021 12:50 PM EST [facility] Total Protein 6.1(L) 6.3 - 7.9 g/dL 05/08/2021 12:50 PM EST [facility] Albumin, Plasma 3.8 3.5 - 5.2 g/dL 05/08/2021 12:50 PM EST [facility] AST, Plasma 16 12 - 40 U/L 05/08/2021 12:50 PM EST [facility] ALT, Plasma 13 11 - 41 U/L 05/08/2021 12:50 PM EST [facility] Alkaline Phosphatase, Plasma 71 40 - 115 U/L 05/08/2021 12:50 PM EST [facility] Total Bilirubin, Plasma 0.5 0.2 - 1.1 mg/dL 05/08/2021 12:50 PM EST [facility] eGFR >60 >60 mL/min/1.7 3m*2 05/08/2021 12:50 PM EST [facility] Comment:eGFR = estimated GFR ; eGFR units = mL/min/1.73 sq meters Chronic Kidney Disease is considered if eGFR <60 mL/min/1.73 sq meters Kidney failure is considered if eGFR is <15 mL/min/1.73 sq meters. eGFR assumes steady state plasma creatinine concentration; not applicable if renal function is rapidly changing or patient is on dialysis. eGFR, if AFR/AM >60 >60 mL/min/1.7 3m*2 05/08/2021 12:50 PM EST [facility] Comment:eGFR = estimated GFR ; eGFR [...] / Unknown (Port) Long-term Catheter / Unknown 05/08/2021 11:48 AM EST 05/08/2021 12:10 PM EST us Divine Carpenter MD LAB BLOOD ORDERABLES Final R esult [facility] [address] [place] [address] * (ABNORMAL) Thyroid Stimulating Hormone, Plasma (TSH) (05/08/2021 11:48 AM EST) Thyroid Stimulating Hormone, Plasma 7.79(H) 0.40 - 4.20 uIU/mL 05/08/2021 12:50 PM EST [facility] Blood Blood sample taken from central line / Unknown (Port) Long-term Catheter / Unknown 05/08/2021 11:48 AM EST 05/08/2021 12:10 PM EST Divine Carpenter MD LAB BLOOD ORDERABLES Final R esult [facility] [address] [place] [address] documented in this encounter Visit Diagnoses Diagnosis 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, unspecified site documented in this encounter Additional Health Concerns Assessment Noted Time A fall risk assessment has been complete d for the patient 05/03/2021 2:18 PM EST documented as of this encounter Care Teams Circle Edger Relationship Specialty Start Date End Date Michele Wright MD [address] [place] [address] PCP - General 10/11/20 Edgar Szymanski MD [address] [facility] [address] [place] [phone] Radiation Oncologist Radiation Therapy 03/14/20 4 Shun Hurst MD [address] [place] [address] Surgeon Neurosurgery 02/24/21 documented as of this encounter
--- OUTSIDE RECORDS SUMMARY | 2024-05-03 13:42 | XMS_ITS | Encounter Summary ---
Author Organization Healthcare Address [address] [place] [address] Care Team Providers Care Lead Assembler Name Role Phone Michele Wright MD Primary Care Provider + [phone] Edgar Szymanski MD Unavailable [phone] Shun Hurst MD Unavailable [phone] Encounter Details Date Type Department Care Team (Latest Contact Info) Description 05/12/2021 Travel Social History Tobacco Use Types Packs/Day Years Used Date Smoking Tobacco: Former Cigarettes Q uit: 2000 Smokeless Tobacco: Never Alcohol Use Standard Drinks/Week Comments Not Currently 0 (1 standard drink = 0.6 oz pure alcohol) Alcoholic Drinks/day: Quit consuming alcohol in remote past PHQ-2 Answer Date Recorded Patient Health Questionnaire-2 Score 0 05/12/2021 Sex and Gender Information Value Date Recorded [...] have Coronavirus / COVID-19? No / Unsure 05/12/2021 9:45 AM EST documented as of this encounter Plan of Treatment Upcoming Encounters Date Type Department Care Team ([facility] st Contact Info) Description 07/17/2024 12:30 PM EST Clinical Support [facility] Respiratory [address] [facility], [address]nd [place] [address] 07/17/2024 1:30 PM EST Appointment [facility] Radiology [address] [place] [address] 07/20/2024 2:50 PM EST Office Visit Pav CC Head, Neck & Respiratory [address] [facility], [address]nd [place] [address] Divine Carpenter MD [address] [facility] [address] [place] [address] documented as of this encounter Visit Diagnoses Not on filedocumented in this encounter Additional Health Concerns Assessment Noted Time A fall risk assessment has been complete d for the patient 05/12/2021 9:57 AM EST documented as of this encounter Care Teams Lead Assembler Relationship Specialty Start Date End Date Michele Wright MD [address] [place] [address] PCP - General 10/11/20 Edgar Szymanski MD 800 [facility] [address] [place] [address] Radiation Oncologist Radiation Therapy 03/14/20 4 Shun Hurst MD [address] [facility] [address] [place] [address] Surgeon Neurosurgery 02/24/21 documented as of this encounter
--- OUTSIDE RECORDS SUMMARY | 2024-05-03 13:42 | XMS_ITS | Encounter Summary ---
Author Organization Healthcare Address [address] [place] [address] Care Team Providers Care Pharmaceutical Assistant Name Role Phone Michele Wright MD Primary Care Provider + [phone] Edgar Szymanski MD Unavailable [phone] Shun Hurst MD Unavailable Encounter Details Date Type Department Care Team (Latest Contact Info) Description 05/08/2021 Travel Social History Tobacco Use Types Packs/Day Years Used Date Smoking Tobacco: Former Cigarettes Q uit: 2000 Smokeless Tobacco: Never Alcohol Use Standard Drinks/Week Comments Not Currently 0 (1 standard drink = 0.6 oz pure alcohol) Alcoholic Drinks/day: Quit consuming alcohol in remote past PHQ-2 Answer Date Recorded Patient Health Questionnaire-2 Score 0 04/21/2021 Sex and Gender Information Value Date Recorded [...] have Coronavirus / COVID-19? No / Unsure 05/08/2021 12:11 PM EST documented as of this encounter Plan of Treatment Upcoming Encounters Date Type Department Care Team ([facility] st Contact Info) Description 07/17/2024 12:30 PM EST Clinical Support Pav CC Head, Neck & Respiratory 800 [facility], [address] [place] [address] 07/17/2024 1:30 PM EST Appointment [facility] Radiology [address] [place] [address] 07/20/2024 2:50 PM EST Office Visit Pav [facility] Head[facility] Neck & Respiratory 800 [facility], [address] [place] [address] Divine Carpenter MD 800 [facility] [address] [place] [address] documented as of this encounter Visit Diagnoses Not on filedocumented in this encounter Additional Health Concerns Assessment Noted Time A fall risk assessment has been complete d for the patient 05/03/2021 2:18 PM EST documented as of this encounter Care Teams Pharmaceutical Assistant Relationship Specialty Start Date End Date Michele Wright MD [address] [place] [address] PCP - General 10/11/20 Edgar Szymanski MD 800 [facility] [address] [place] [address] Radiation Oncologist Radiation Therapy 03/14/20 4 Shun Hurst MD [address] [facility] [address] [place] [address] Surgeon Neurosurgery 02/24/21 documented as of this encounter
--- OUTSIDE RECORDS SUMMARY | 2024-05-03 13:42 | XMS_ITS | Encounter Summary ---
Author Organization Healthcare Address [address] [place] [address] Care Team Providers Care Gear Machinist Name Role Phone Michele Wright MD Primary Care Provider + [phone] Edgar Szymanski MD Unavailable [phone] Shun Hurst MD Unavailable [phone] Encounter Details Date Type Department Care Team (Latest Contact Info) Description 06/12/2021 Travel Social History Tobacco Use Types Packs/Day [...] Upcoming Encounters Date Type Department Care Team ([facility] st Contact Info) Description 07/17/2024 12:30 PM EST Clinical Support Pav CC Head, Neck & Respiratory 800 [facility], [address] [place] [address] 07/17/2024 1:30 PM EST Appointment [facility] Radiology [address] [place] [address] 07/20/2024 2:50 PM EST Office Visit Pav CC Head, Neck & Respiratory [address] [facility], [address] [place] [address] Divine Carpenter MD 800 [facility] [address] [place] [address] documented as of this encounter Visit Diagnoses Not on filedocumented in this encounter Additional Health Concerns Infection Onset Date Last Indicated Resolved Time COVID-19 Rule-Out 06/12/2021 06/12/2021 06/12/2021 12:25 PM EST COVID 19 (Confirmed) Comment:IPAC has verified patient has a COVID-19 positive result. A chart review has been completed, EPI PUI has been completed and sent to appropriate Health Dept. IPAC Fire Marshal [employer]: Doyle 06/12/2021 06/12/2021 07/03/2021 5: 23 AM EST Assessment Noted Time A fall risk assessment has been complete d for the patient 06/12/2021 10:08 AM EST documented as of this encounter Care Teams Gear Machinist Relationship Specialty Start Date End Date Michele Wright MD [address] [phone] PCP - General 10/11/20 Edgar Szymanski MD [address] [facility] [address] [place] [address] Radiation Oncologist Radiation Therapy 03/14/20 4 Shun Hurst MD [address] [facility] [address] [place] [address] Surgeon Neurosurgery 02/24/21 documented as of this encounter
--- OUTSIDE RECORDS SUMMARY | 2024-05-03 13:42 | XMS_ITS | Encounter Summary ---
Author Organization [facility] Address [address] [place] [address] Care Team Providers Care Finance Business Manager Name Role Phone Michele Wright MD Primary Care Provider + [phone] Edgar Szymanski MD Unavailable [phone] Shun Hurst MD Unavailable [phone] Divine Carpenter MD Unavailable [phone] Reason for Visit * Reason Comments Supportive call and distress screening gretel gamboa Encounter Details Date Type Department Care Team (Late st Contact Info) Description 06/17/2021 Social Work PSYCH ONCOLOGY [address] [place] [address] [address]i V[address]as [address] [address] Social History Tobacco Use Types Packs/Day Years [...] encounter Miscellaneous Notes * Progress Notes - Geri Vyas Jose - 06/17/2021 11:59 PM EST Visit Type: PsychOncVT: Distress Screening Call Time Spent with Patient and/or Caregivers: Less than 15 minutes Services Provided: Caregiver Support Referrals: None Education: Psych-Onc Services and Talking With Provider Narrative: break up worker had attempted to meet with a patient during his oncology visit but had been referred to the ER and tested positive for COVID. Patient was contacted through his to determine how he is doing. Patient's reported he was doing ok after hospitalization but was having some issues with syncope. break up worker informed patient's provider and nurse so they can reach out tothem for guidance. Patient's was provided contact information for social media strategist in case they needed any resources or support through patient's medical care. break up worker informed patient's wifethat caregiver is an important component in the process and social media strategist is available to support her as well. Patient's expressed appreciation for call today. break up worker available as needed. documented in this encounter Plan of Treatment Upcoming Encounters Date Type Department Care Team (Late st Contact Info) Description 07/17/2024 12:30 PM EST Clinical Support [facility] [address] [facility], [address] [place] [address] 07/17/2024 1:30 PM EST Appointment [facility] Radiology [address] [place] [address] 07/20/2024 2:50 PM EST Office Visit [facility] [address] [facility] [place] [address] Divine Carpenter MD [address] [facility] Diane Zuniga [facility] [address] [place] [phone] documented as of this encounter Visit Diagnoses Not on filedocumented in this encounter Additional Health Concerns Infection Onset Date Last Indicated Resolved Time COVID 19 (Confirmed) Comment:[facility] has verified patient has a COVID-19 positive result. A chart review has been completed, EPI PUI has been completed and sent to appropriate Health Dept. IPAC Crew Car Driver: Doyle 06/12/2021 06/12/2021 07/03/2021 5: 23 AM EST Assessment Noted Time A fall risk assessment has been complete d for the patient 06/12/2021 10:08 AM EST documented as of this encounter Care Teams Finance Business Manager Relationship Specialty Start Date End Date Michele Wright MD [address] [id number] PCP - General 10/11/20 Edgar Szymanski MD [address] [facility] [address] [place] [phone] Radiation Oncologist Radiation Therapy 03/14/20 4 Shun Hurst MD [address] [facility] [address] [place] [address] Surgeon Neurosurgery 02/24/21 Divine Carpenter MD [address] [facility] [address] [place] [phone] Medical Oncologist Medical Oncology 06/13/21 documented as of this encounter
--- OUTSIDE RECORDS SUMMARY | 2024-05-03 13:42 | XMS_ITS | Encounter Summary ---
Author Organization Healthcare Address [address] [place] [id number] Care Team Providers Care Tissue Technologist Name Role Phone Michele Wright MD Primary Care Provider + [phone] Edgar Szymanski MD Unavailable [phone] Shun Hurst MD Unavailable [phone] Encounter Details Date Type Department Care Team (Latest Contact Info) Description 05/30/2021 Travel Social History Tobacco Use Types Packs/Day [...] have Coronavirus / COVID-19? No / Unsure 05/30/2021 1:12 PM EST documented as of this encounter Plan of Treatment Upcoming Encounters Date Type Department Care Team ([facility] st Contact Info) Description 07/17/2024 12:30 PM EST Clinical Support [facility] [address] [facility], [address] [place] [address] 07/17/2024 1:30 PM EST Appointment [facility] Radiology [address] [place] [phone] 07/20/2024 2:50 PM EST Office Visit [facility] [address] [facility], [address] [place] [phone] Divine Carpenter MD 800 [facility] Diane Zun[address] [place] [address] documented as of this encounter Visit Diagnoses Not on filedocumented in this encounter Additional Health Concerns Assessment Noted Time A fall risk assessment has been complete d for the patient 05/30/2021 1:14 PM EST documented as of this encounter Care Teams Tissue Technologist Relationship Specialty Start Date End Date Michele Wright MD [address] [place] [address] PCP - General 10/11/20 Edgar Szymanski MD 800 [facility] [address] [place] [phone] Radiation Oncologist Radiation Therapy 03/14/20 4 Shun Hurst MD [address] [facility] [address] [place] [phone] Surgeon Neurosurgery 02/24/21 documented as of this encounter
--- OUTSIDE RECORDS SUMMARY | 2024-05-03 13:42 | XMS_ITS | Encounter Summary ---
Author Organization [facility] Address [address] [place], [place] [id number] Care Team Providers Care Safety Engineer Name Role Phone Michele Wright MD Primary Care Provider + [phone] Edgar Szymanski MD Unavailable [phone] Shun Hurst MD Unavailable [phone] Divine Carpenter MD Unavailable [phone] Reason for Visit * Reason Onset Date Comments HCN - Patient Message 06/11/2021 Encounter Details Date Type Department Care Team (Late st Contact Info) Description 06/11/2021 Telephone [facility] [address] [place] [phone] Divine Carpenter MD [address] [address] HCN - Patient Message Social [...] Telephone Encounter - Ambika Ambriz RN - 06/12/2021 10:58 AM EST Patient is here and will be admitted * Telephone Encounter - Penelope Traylor - 06/11/2021 12:03 PM EST Patient Phone Message Reason for Call: The patient hasn't been able to hold down any food or drink. This has been an issue off and on for about a month, but has gotten severe within the past week. The last 3 days he hasn't eaten anything and when he has eaten he's thrown it back up immediately. The patient's seems to be getting weaker and they suspect that he's dehydrated. They're concerned he might have to be brought to the hospital soon. The patient has also passed out a couple different times after standing up from a seated position. This has resulted in one fall. Best contact number and optimal time of day to reach caller: [phone] and anytime Note: Please do not reply to this message. Follow-up communication and further actions as a result of this message need to be communicated with the patient directly, if the patient is not active onMyChart. If the patient is active on MyChart, they will receive notification of the communication/outcome via [employer]. documented in this encounter Plan of Treatment Upcoming Encounters Date Type Department Care Team (Late st Contact Info) Description 07/17/2024 12:30 PM EST Clinical Support [facility] [address] [place] [address] 07/17/2024 1:30 PM EST Appointment [facility] [address] [place] [phone] 07/20/2024 2:50 PM EST Office Visit [facility] [address] [place] [address] Divine Carpenter MD [address] [facility] [address] [place] [address] documented as of this encounter Visit Diagnoses Not on filedocumented in this encounter Additional Health Concerns Infection Onset Date Last Indicated Resolved Time COVID-19 Rule-Out 06/12/2021 06/12/2021 06/12/2021 12:25 PM EST COVID 19 (Confirmed) Comment:[facility] has verified patient has a COVID-19 positive result. A chart review has been completed, EPI PUI has been completed and sent to appropriate Health Dept. [facility] Nephrology Social Worker: Doyle 06/12/2021 06/12/2021 07/03/2021 5: 23 AM EST Assessment Noted Time A fall risk assessment has been complete d for the patient 05/30/2021 1:14 PM EST documented as of this encounter Care Teams Safety Engineer Relationship Specialty Start Date End Date Michele Wright MD [address] [place] [address] PCP - General 10/11/20 Edgar Szymanski MD [address] [facility] [address] [place] [phone] Radiation Oncologist Radiation Therapy 03/14/20 4 Shun Hurst MD [address] [place] [address] Surgeon Neurosurgery 02/24/21 Divine Carpenter MD [address] [facility] [address] [place] [address] Medical Oncologist Medical Oncology 06/13/21 documented as of this encounter
--- OUTSIDE RECORDS SUMMARY | 2024-05-03 13:42 | XMS_ITS | Encounter Summary ---
Author Organization Healthcare Address [address] [id number] Care Team Providers Care Musical Instrument Maker Name Role Phone Michele Wright MD Primary Care Provider [phone] Edgar Szymanski MD Unavailable [phone] Shun Hurst MD Unavailable [phone] Divine Carpenter MD Unavailable [phone] Reason for Visit * Reason Comments Dehydration * Auth/Cert Specialty Diagnoses / Procedures Referred By Contac t Referred To Contact Diagnoses Acute COVID-19 DEHYDRATED, HYPOXIC Karan Deleon MD [address] [place] [phone] Phone: tel: fax: [facility] [address] [place] [address] Phone: tel: Referral ID Status Reason Start Date Expiration Date Visits Re quested Visits Authorized [id number] 1 1 Encounter Details Date Type Department Care Team (Late st Contact Info) Description 06/12/2021 12:27 PM EST - 06/16/2021 4:02 PM EST Hospital Encounter [facility] In[facility] [address] [place] [address] Berta Mohan MD [address] [place] [address] Karan Deleon MD [address] [place] [phone] Jose Spear MD [address] [place] [phone] Acute COVID-19 (Primary Dx); Other neutropenia (CMS/HCC); Thrombocytopenia (CMS/HCC) Discharge Disposition: Home or Self Care [...] Sign Reading Time Taken Comments Blood Pressure 131/75 06/15/2021 6:56 PM EST Pulse 79 06/16/2021 12:39 PM EST Temperature 36.6 ??C (97.9 ??F) 06/16/2021 8:41 AM ES T Respiratory Rate 22 06/16/2021 12:39 PM EST Oxygen Saturation 94% 06/16/2021 3:00 PM EST Inhaled Oxygen Concentration - - Weight - - Height - - Body Mass Index - - documented in this encounter Medications at Time of Discharge albuterol 108 (90 Base) MCG/ACT inhaler Inhale 2 puffs every 4 (four) hours if needed for wheezing or shortness of breath. 18 g 11 06/16/2021 ALPRAZolam (Xanax) 1 MG tablet Take 1 [...] as of this encounter Miscellaneous Notes * Discharge Summary - Jose Spear MD - 06/16/2021 11:29 AM EST Hospitalization Admit Date/Time: 06/12/2021 12:27 PM Admitting Attending: Karan Deleon Discharge Date: 06/16/2021 Discharge Attending Physician: Jose Spear Md PCP name and Address: Michele Wright MD [address] [facility] / [place] [id number] Referring provider name and address: Divine Carpenter MD [address] [place] [phone] Chief Concern, Brief History of Present Illness, and Hospital Course 56??yoM??with PMHx including recurrent stage IV laryngeal cancer on palliative chemotherapy (05/30/21 Cycle??4??carboplatin/5FU) who presents to ED from oncology clinic for hypoxia, generalized weakness and poor PO intake. Found to be COVID positive. CT imaging showing bibasilar aspiration.?? 06/12?? Remdesivir x 5 days and dexamethasone 6 mg PO daily x 10 days with GI ppx were given to him. He finished the Remdesivir and was weaned from the oxygen to the RA successfully. Problems List: #Acute hypoxic respiratory failure 2/2??COVID-19 and aspiration in immunocompromised pt?? - Pt. O2 sat??90% on RA at rest, stable on trach mask 10 L. - CT PE negative for PE, showing bibasilar aspiration?? - T-max??99.2??with WBC??and procal WNL??CRP (16) PLAN: -?06/12?? Remdesivir x 5 days and dexamethasone 6 mg PO daily x 10 days with GI ppx - trend inflammatory markers if needed - albuterol MDI PRN - supplemental O2 for sats >92% if needed. ?? #Pancytopenia with neutropenia 2/2 chemo and malignancy? - WBC (0.49) ANC (310) Hgb (10.1) Plts (<10) PLAN: - 06/12 - s/p 1 unit Plts in ED - infectious work up started with??blood cx, urine cx - per oncology recs: vancomycin and an zosyn started empirically -> deescalate as able?? - monitor with CBC and transfuse for Hgb <7 and PLts <10 ?? 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 #HTN - BP was high yesterday and this AM PLAN: - resume home lisinopril and increased his dosage + Amlodipine and add clonidine PRN Q 8 H. - added hydrochlorothiazide 25 mg - can not resume his home metoprolol as his HR is around 50 to 60. ?? #Recurrent stage IV laryngeal cancer - Per chart review, pt is??followed by Dr. Correia??and??Dr. Carpenter? - pt currently receiving palliative chemo??- 05/30/21 Cycle??4??carboplatin/5FU PLAN: - consult med/onc in AM? #Cancer related pain?? - home regimen includes morphine CR 60 mg q12h with oxycodone 30 mg q8h PRN for breakthrough - pt has been crushing home morphine CR PLAN: - switch from morphine CR to fentanyl patch per pharm dosing - morphine IV PRN for breakthrough - monitor for over-sedation - narcan ordered? #DMII - glucose??(103)??on admit labs PLAN: - fingersticks??q6h while NPO with??SSI - hypoglycemia protocol ordered ?? #h/o DVT PLAN: - pt does not appear to be on Xarelto any longer ?? #Cheomtherapy induced nausea PLAN: - zofran IV PRN ?? #Hypothryoidism?? PLAN: - continue levothyroxine when able to tolerate PO? #BPH PLAN: - continue tamsulosin when able to tolerate PO ?? #GERD PLAN: - continue PPI IV for now? Medication List .. albuterol 108 (90 Base) MCG/ACT inhaler Inhale 2 puffs every 4 (four) hours if needed for wheezing or shortness of breath. ALPRAZolam 1 MG tablet Commonly known as: Xanax Take 1 mg by mouth 2 (two) times a day. amLODIPine 10 MG tablet Commonly known as: Norvasc Take 10 mg by mouth 1 (one) time each day. dexamethasone 6 MG tablet Commonly known as: Decadron Take 1 tablet (6 mg total) by mouth 1 (one) time each day for 6 doses. Start taking on: June 17, 2021 diphenoxylate-atropine 2.5-0.025 MG tablet Commonly known as: Lomotil Take 1 tablet by mouth 4 (four) times a day if needed for diarrhea. gabapentin 600 MG tablet Commonly known as: Neurontin Take 1 tablet (600 mg total) by mouth 4 (four) times a day. hydroCHLOROthiazide 25 MG tablet Commonly known as: HYDRODiuril Take 1 tablet (25 mg total) by mouth 1 (one) time each day. Start taking on: June 17, 2021 ibuprofen 100 MG/5ML suspension Take 600 mg by mouth every 6 (six) hours if needed for mild pain. levothyroxine 150 MCG tablet Commonly known as: Synthroid, Levoxyl Take 150 mcg by mouth 1 (one) time each day before breakfast. lisinopril 10 MG tablet TAKE 1 TABLET BY MOUTH EVERY DAY loperamide 2 MG capsule Commonly known as: Imodium Take 2 mg by mouth 4 (four) times a day if needed for diarrhea. loratadine 10 MG tablet Commonly known as: Claritin Take 10 mg by mouth 1 (one) time each day. Morphine Sulfate ER 60 MG tablet extended-release 12 hour Take 60 mg by mouth 2 (two) times a day. Do not crush, chew, or split. omeprazole [address] capsule Commonly known as: PriLOSEC TAKE 1 CAPSULE BY MOUTH EVERY DAY ondansetron 8 MG tablet Commonly known as: Zofran Take 1 tablet (8 mg total) by mouth 2 (two) times a day. Starting day after chemo for 3 days. oxyCODONE 30 MG immediate release tablet Commonly known as: Roxicodone Take 30 mg by mouth every 3 (three) hours if needed for severe pain. prochlorperazine 10 MG tablet Commonly known as: Compazine Take 1 tablet (10 mg total) by mouth every 6 (six) hours if needed for nausea or vomiting. tamsulosin 0.4 MG 24 hr capsule Commonly known as: Flomax Take 0.4 mg by mouth every night. Where to Get Your Medications These medications were sent to [facility], [place] - [address] [facility] [id number] ?? albuterol 108 (90 Base) MCG/ACT inhaler ?? dexamethasone 6 MG tablet ?? 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 Dysphagia causing pulmonary aspiration with swallowing * (Principal) RESOLVED: Acute COVID-19 \ Outpatient Follow-Up Future Appointments Date Time Provider Department Center 06/25/2021 10:30 AM Edgar Szymanski MD [facility] 07/04/2021 10:30 AM [facility] 09/05/2021 8:[address] [facility] 09/05/2021 11:00 AM [facility] Test Results Pending At Discharge Pending Labs Order Current Status Blood Culture (Aerobic/Anaerobet Set) Preliminary result Blood Culture (Aerobic/Anaerobet Set) Preliminary result Pertinent Physical Exam At Time of Discharge Physical Exam Blood pressure 131/75, pulse 55, temperature 36.6 ??C (97.9 ??F), temperature source Oral, resp. rate 10, SpO2 94 %. Constitutional: ?General: He is not in acute distress. ?Appearance: Normal appearance. He is not??ill-appearing,??toxic-appearing??or diaphoretic. HENT: ?Head: Normocephalic??and atraumatic. ?Nose: No congestion. ?Mouth/Throat: ?Mouth: Mucous membranes are moist. ?Pharynx: Oropharynx is clear. Eyes: ?General: No scleral icterus. ?Extraocular Movements: Extraocular movements intact. ?Pupils: Pupils are equal, round, and reactive to light. Cardiovascular: ?Rate and Rhythm: Normal rate??and regular rhythm. ?Pulses: Normal pulses. ?Heart sounds: Normal heart sounds. Pulmonary: ?Effort: Pulmonary effort is normal. No??respiratory distress. ?Breath sounds: No stridor. No??rhonchi. Abdominal: ?General: Abdomen is flat. Bowel sounds are??normal. There is no??distension. ?Palpations: Abdomen is soft. ?Tenderness: There is no abdominal tenderness. There is no??guarding??or rebound. Musculoskeletal: ?General: No swelling,??tenderness??or deformity.??Normal range of motion. ?Cervical back: Normal range of motion. No??tenderness. ?Right lower leg: No edema. ?Left lower leg: No edema. Skin: ?General: Skin is warm??and dry. ?Capillary Refill: Capillary refill takes less than 2 seconds. ?Findings: No lesion. Neurological: ?General: No focal deficit??present. ?Mental Status: He is alert??and oriented to person, place, and time. Mental status is??at baseline. Psychiatric: ?Mood and Affect: Mood??normal. ?Behavior: Behavior??normal. Discharge Disposition/Condition Disposition: Home. Condition: Stable * Progress Notes - Jose Spear MD - 06/15/2021 8:05 AM EST NO med concerns today On 3 L 24 % oxygen with saturation above 91%, will try to wean him as much as tolerated HD stable BP is not controlled though, hydrochlorothiazide 25 mg was added to him. ROS: As above. Ex: Blood pressure 154/82, pulse 60, temperature 36.9 ??C (98.5 ??F), temperature source Oral, resp. rate 17, SpO2 90 %. Constitutional: General: He is not in acute distress. Appearance: Normal appearance. He is not ill-appearing, toxic-appearing or diaphoretic. HENT: Head: Normocephalic and atraumatic. Nose: No congestion. Mouth/Throat: Mouth: Mucous membranes are moist. Pharynx: Oropharynx is clear. Eyes: General: No scleral icterus. Extraocular Movements: Extraocular movements intact. Pupils: Pupils are equal, round, and reactive to light. Cardiovascular: Rate and Rhythm: Normal rate and regular rhythm. Pulses: Normal pulses. Heart sounds: Normal heart sounds. Pulmonary: Effort: Pulmonary effort is normal. No respiratory distress. Breath sounds: No stridor. No rhonchi. Abdominal: General: Abdomen is flat. Bowel sounds are normal. There is no distension. Palpations: Abdomen is soft. Tenderness: There is no abdominal tenderness. There is no guarding or rebound. Musculoskeletal: General: No swelling, tenderness or deformity. Normal range of motion. Cervical back: Normal range of motion. No tenderness. Right lower leg: No edema. Left lower leg: No edema. Skin: General: Skin is warm and dry. Capillary Refill: Capillary refill takes less than 2 seconds. Findings: No lesion. Neurological: General: No focal deficit present. Mental Status: He is alert and oriented to person, place, and time. Mental status is at baseline. Psychiatric: Mood and Affect: Mood normal. Behavior: Behavior normal. Results from last 7 days Lab Units 06/13/21 0441 06/12/21 1036 WBC 10*3/uL 0.71* 0.49* HEMOGLOBIN g/dL 9.7* 10.1* HEMATOCRIT % 28.4* 30.7* PLATELETS 10*3/uL 26* 10* Results from last 7 days Lab Units 06/13/21 0441 06/12/21 1036 SODIUM mmol/L 141 143 POTASSIUM mmol/L 4.1 4.1 CHLORIDE mmol/L 103 103 CO2 mmol/L 27 26 BUN mg/dL 19 26* CREATININE mg/dL 0.66* 0.81 CALCIUM mg/dL 8.9 9.2 BILIRUBIN TOTAL mg/dL -- 0.6 ALKALINE PHOSPHATASE U/L -- 69 ALT U/L -- 13 AST U/L -- 20 GLUCOSE mg/dL 94 103* Imaging: Imaging personally reviewed. XR Chest 1 View Result Date: 06/12/2021 No acute disease Assessment and Plan: This is a 56 yoM with PMHx including recurrent stage IV laryngeal cancer on palliative chemotherapy(05/30/21 Cycle 4 carboplatin/5FU) who presents to ED from oncology clinic for hypoxia, generalized weakness and poor PO intake. Found to be COVID positive. CT imaging showing bibasilar aspiration. ?? #Acute hypoxic respiratory failure 2/2 COVID-19 and aspiration in immunocompromised pt - Pt. O2 sat 90% on RA at rest, stable on trach mask 10 L. - CT PE negative for PE, showing bibasilar aspiration - T-max 99.2 with WBC and procal WNL CRP (16) PLAN: - ??06/12 Remdesivir x 5 days and dexamethasone 6 mg PO daily x 10 days with GI ppx - trend inflammatory markers if needed - albuterol MDI PRN - supplemental O2 for sats >92% if needed. ?? #Pancytopenia with neutropenia 2/2 chemo and malignancy - WBC (0.49) ANC (310) Hgb (10.1) Plts (<10) PLAN: - 06/12 - s/p 1 unit Plts in ED - infectious work up started with blood cx, urine cx - per oncology recs: vancomycin and an zosyn started empirically -> deescalate as able - monitor with CBC and transfuse for Hgb <7 and PLts <10 ?? 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 #HTN - BP was high yesterday and this AM PLAN: - resume home lisinopril and increased his dosage + Amlodipine and add clonidine PRN Q 8 H. - added hydrochlorothiazide 25 mg - can not resume his home metoprolol as his HR is around 50 to 60. #Recurrent stage IV laryngeal cancer - Per chart review, pt is followed by Dr. Correia and Dr. Carpenter - pt currently receiving palliative chemo - 05/30/21 Cycle 4 carboplatin/5FU PLAN: - consult med/onc in AM ?? #Cancer related pain - home regimen includes morphine CR 60 mg q12h with oxycodone 30 mg q8h PRN for breakthrough - pt has been crushing home morphine CR PLAN: - switch from morphine CR to fentanyl patch per pharm dosing - morphine IV PRN for breakthrough - monitor for over-sedation - narcan ordered ?? #DMII - glucose (103) on admit labs PLAN: - fingersticks q6h while NPO with SSI - hypoglycemia protocol ordered ?? #h/o DVT PLAN: - pt does not appear to be on Xarelto any longer ?? #Cheomtherapy induced nausea PLAN: - zofran IV PRN ?? #Hypothryoidism PLAN: - continue levothyroxine when able to tolerate PO ?? #BPH PLAN: - continue tamsulosin when able to tolerate PO ?? #GERD PLAN: - continue PPI IV for now ?? DVT PPX: SCDs GI PPX: PPI Code status - DNR/DNI * Progress Notes - Jose Spear MD - 06/14/2021 12:55 PM EST NO med concerns today On 3 L 24 % oxygen with saturation above 92% HD stable BP is not controlled though would increase his medications ROS: As above. Ex: Blood pressure (!) 202/87, pulse 60, temperature 36.6 ??C (97.8 ??F), temperature source Oral, resp. rate 19, SpO2 91 %. Constitutional: General: He is not in acute distress. Appearance: Normal appearance. He is not ill-appearing, toxic-appearing or diaphoretic. HENT: Head: Normocephalic and atraumatic. Nose: No congestion. Mouth/Throat: Mouth: Mucous membranes are moist. Pharynx: Oropharynx is clear. Eyes: General: No scleral icterus. Extraocular Movements: Extraocular movements intact. Pupils: Pupils are equal, round, and reactive to light. Cardiovascular: Rate and Rhythm: Normal rate and regular rhythm. Pulses: Normal pulses. Heart sounds: Normal heart sounds. Pulmonary: Effort: Pulmonary effort is normal. No respiratory distress. Breath sounds: No stridor. No rhonchi. Abdominal: General: Abdomen is flat. Bowel sounds are normal. There is no distension. Palpations: Abdomen is soft. Tenderness: There is no abdominal tenderness. There is no guarding or rebound. Musculoskeletal: General: No swelling, tenderness or deformity. Normal range of motion. Cervical back: Normal range of motion. No tenderness. Right lower leg: No edema. Left lower leg: No edema. Skin: General: Skin is warm and dry. Capillary Refill: Capillary refill takes less than 2 seconds. Findings: No lesion. Neurological: General: No focal deficit present. Mental Status: He is alert and oriented to person, place, and time. Mental status is at baseline. Psychiatric: Mood and Affect: Mood normal. Behavior: Behavior normal. Results from last 7 days Lab Units 06/13/21 0441 06/12/21 1036 WBC 10*3/uL 0.71* 0.49* HEMOGLOBIN g/dL 9.7* 10.1* HEMATOCRIT % 28.4* 30.7* PLATELETS 10*3/uL 26* 10* Results from last 7 days Lab Units 06/13/21 0441 06/12/21 1036 SODIUM mmol/L 141 143 POTASSIUM mmol/L 4.1 4.1 CHLORIDE mmol/L 103 103 CO2 mmol/L 27 26 BUN mg/dL 19 26* CREATININE mg/dL 0.66* 0.81 CALCIUM mg/dL 8.9 9.2 BILIRUBIN TOTAL mg/dL -- 0.6 ALKALINE PHOSPHATASE U/L -- 69 ALT U/L -- 13 AST U/L -- 20 GLUCOSE mg/dL 94 103* Imaging: Imaging personally reviewed. XR Chest 1 View Result Date: 06/12/2021 No acute disease Assessment and Plan: This is a 56 yoM with PMHx including recurrent stage IV laryngeal cancer on palliative chemotherapy(05/30/21 Cycle 4 carboplatin/5FU) who presents to ED from oncology clinic for hypoxia, generalized weakness and poor PO intake. Found to be COVID positive. CT imaging showing bibasilar aspiration. ?? #Acute hypoxic respiratory failure 2/2 COVID-19 and aspiration in immunocompromised pt - Pt. O2 sat 90% on RA at rest, stable on trach mask 10 L. - CT PE negative for PE, showing bibasilar aspiration - T-max 99.2 with WBC and procal WNL CRP (16) PLAN: - ??06/12 Remdesivir x 5 days and dexamethasone 6 mg PO daily x 10 days with GI ppx - trend inflammatory markers - albuterol MDI PRN - supplemental O2 for sats >92% if needed. ?? #Pancytopenia with neutropenia 2/2 chemo and malignancy - WBC (0.49) ANC (310) Hgb (10.1) Plts (<10) PLAN: - 06/12 - s/p 1 unit Plts in ED - infectious work up started with blood cx, urine cx - per oncology recs: vancomycin and an zosyn started empirically -> deescalate as able - monitor with CBC and transfuse for Hgb <7 and PLts <10 ?? 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 #HTN - BP was high yesterday and this AM PLAN: - resume home lisinopril and increased his dosage + Amlodipine and add clonidine PRN Q 8 H now ?? #Recurrent stage IV laryngeal cancer - Per chart review, pt is followed by Dr. Correia and Dr. Carpenter - pt currently receiving palliative chemo - 05/30/21 Cycle 4 carboplatin/5FU PLAN: - consult med/onc in AM ?? #Cancer related pain - home regimen includes morphine CR 60 mg q12h with oxycodone 30 mg q8h PRN for breakthrough - pt has been crushing home morphine CR PLAN: - switch from morphine CR to fentanyl patch per pharm dosing - morphine IV PRN for breakthrough - monitor for over-sedation - narcan ordered ?? #DMII - glucose (103) on admit labs PLAN: - fingersticks q6h while NPO with SSI - hypoglycemia protocol ordered ?? #h/o DVT PLAN: - pt does not appear to be on Xarelto any longer ?? #Cheomtherapy induced nausea PLAN: - zofran IV PRN ?? #Hypothryoidism PLAN: - continue levothyroxine when able to tolerate PO ?? #BPH PLAN: - continue tamsulosin when able to tolerate PO ?? #GERD PLAN: - continue PPI IV for now ?? DVT PPX: SCDs GI PPX: PPI Code status - DNR/DNI * Care Plan - Mary Varela - 06/13/2021 10:51 PM EST Problem: Adult Inpatient Plan of Care Goal: Optimal Comfort and Wellbeing Outcome: Ongoing, Progressing Goal: Readiness for Transition of Care Outcome: Ongoing, Progressing * Care Plan - Daija Pena - 06/13/2021 5:18 PM EST Problem: Adult Inpatient Plan of Care Goal: Patient-Specific Goal (Individualized) Outcome: Ongoing, Progressing Goal: Absence of Hospital-Acquired Illness or Injury Outcome: Ongoing, Progressing Goal: Optimal Comfort and Wellbeing Outcome: Ongoing, Progressing Goal: Readiness for Transition of Care Outcome: Ongoing, Progressing * Consults - Maude Wheeler RD - 06/13/2021 2:26 PM EST Adult Nutrition Evaluation Note Anibal Heath 56 y.o. male CSN: [id number] Room/Bed 114/114A Nutrition evaluation type: assessment Reason for evaluation: nurse consult MST, difficulty swallowing Hospital course: 56 yo male with stage IV laryngeal cancer on palliative chemo admit with weakness,poor PO intakes, COVID18. +dysphagia, bibasilar aspiration, plan for possible dilation vs PEG. Past medical/ surgical history: Past Medical History: Diagnosis Date ??? Chronic pain disorder neck/face post radiation/cancer. ??? Dysphagia 2020 food must be very [...] Past Surgical History: Procedure Laterality Date ??? ESOPHAGOGASTRODUODENOSCOPY N/A Esophagogastroduodenoscopy from [facility] ??? GASTROSTOMY TUBE PLACEMENT N/A Percutaneous endoscopic gastrostomy tube insertion from [facility] ??? LARYNGOSCOPY N/A Laryngoscopy from [facility] ??? OTHER SURGICAL HISTORY N/A Neck dissection modified radical from [facility] ??? OTHER SURGICAL HISTORY N/A Percutaneous endoscopic gastrostomy tube removal from [facility] ??? OTHER SURGICAL HISTORY N/A Laryngectomy from [facility] ??? OTHER SURGICAL HISTORY N/A Trachectomy from [facility] Social history: Additional comments: Pt didn't answer RD phone call this afternoon. Vitals and Basic Assessment: BP: 178/78 Temp: 36.5 ??C (97.7 ??F) Oxygen Therapy: Supplemental oxygen O2 Delivery Method: Venturi mask,Trach mask [place] Coma Scale Score: 15 Jack Scale Score: 18 GI Symptoms: Nausea Allergies: NKFA Medications: amLODIPine, 10 mg, Oral, Daily ??? dexamethasone, 6 mg, Intravenous, q24h ??? fentaNYL, 1 patch, Transdermal, q72h ??? insulin regular, 0-5 Units, Subcutaneous, q6h YAA ??? lisinopril, 10 mg, Oral, Daily ??? pantoprazole, 40 mg, Intravenous, Daily ??? piperacillin-tazobactam, 3.375 g, Intravenous, q6h ??? Povidone-Iodine, 1 Swab, Nasal, Daily ??? [COMPLETED] remdesivir (VEKLURY) IVPB in NS, 200 mg, Intravenous, Once FOLLOWED BY remdesivir (VEKLURY) IVPB in NS, 100 mg, Intravenous, q24h ??? vancomycin, 1,500 mg, Intravenous, q12h Meds were reviewed: Yes Labs: Labs in last 18 hours CBC WBC 0.71 (LL) Hb 9.7 (L) Plt 26 (L) Hct 28.4 (L) ANC 0.47 (LL) INR ??, PTT ??, Anti-Xa ?? BMP Na 141 Cl 103 BUN 19 Glu 94 K 4.1 Co2 27 Cr 0.66 (L) Ca 8.9 iCa ?? Mg ??, Phos 3.9 Lactate ?? LFT AST ?? AlkPhos ?? T Prot ?? ALK ?? Bili ?? Alb ?? D.Bili ?? Anthropometrics: Weight Evaluation: Overweight (BMI 25-29.9) [place] Body Weight (kg): 70 Percent [place] Body Weight: 128 Adjusted Body Weight (kg): 75 Estimated Needs: Kcal/ K-33 Kcal Provided: 7635-3470 Kcal Needs Based On: Adjusted weight Current Nutrition Intake: Diet Order: (no diet order) Diet Experience and Nutrition History: Diet Education Provided: Will monitor Nutrition Focused Physical Exam: Unable to Complete Exam: Isolation precautions Physical exam performed on (date): Assessment of Malnutrition: Unable to Complete Exam: Isolation precautions Nutrition Problem: Inadequate oral intake related to dysphagia as evidenced by NPO. Status of Nutrition Diagnosis: New Nutrition Interventions and Recommendations: -NPO until RESIDENTIAL ROOFER evaluation - If TF warranted, recommend initiating TF of Isosource 1.5 @ 10 ml/hr advancing by 10 ml q6h to goal rate 70 ml/hr (1540 ml/day) provides 2310 kcal, 105g protein, 271g CHO, 23g fiber, 91g fat, 1177 ml water and 154% RDIs vit/min. - Rec MVI daily - Free water management per team Nutrition Monitoring and Goals: - Pt meets >80% EER by follow up Acuity Level: [address] * Progress Notes - Jose Spear MD - 06/13/2021 2:17 PM EST Seen and examined in the AM, saturating 96% on RA with no c/o, he said I feel good really. He has some GI upset, will prescribe GI cocktail for him Afebrile, HD stable with no significant events over the night. He did not receive his BP Meds as the nurse was not sure if we can give it to him, but [facility]IDENT[facility]FER saw him and he can start taking them. ROS: As above. Ex: Blood pressure 178/78, pulse (!) 49, temperature 36.5 ??C (97.7 ??F), temperature source Oral, resp. rate 14, SpO2 98 %. Constitutional: General: He is not in acute distress. Appearance: Normal appearance. He is not ill-appearing, toxic-appearing or diaphoretic. HENT: Head: Normocephalic and atraumatic. Nose: No congestion. Mouth/Throat: Mouth: Mucous membranes are moist. Pharynx: Oropharynx is clear. Eyes: General: No scleral icterus. Extraocular Movements: Extraocular movements intact. Pupils: Pupils are equal, round, and reactive to light. Cardiovascular: Rate and Rhythm: Normal rate and regular rhythm. Pulses: Normal pulses. Heart sounds: Normal heart sounds. Pulmonary: Effort: Pulmonary effort is normal. No respiratory distress. Breath sounds: No stridor. No rhonchi. Abdominal: General: Abdomen is flat. Bowel sounds are normal. There is no distension. Palpations: Abdomen is soft. Tenderness: There is no abdominal tenderness. There is no guarding or rebound. Musculoskeletal: General: No swelling, tenderness or deformity. Normal range of motion. Cervical back: Normal range of motion. No tenderness. Right lower leg: No edema. Left lower leg: No edema. Skin: General: Skin is warm and dry. Capillary Refill: Capillary refill takes less than 2 seconds. Findings: No lesion. Neurological: General: No focal deficit present. Mental Status: He is alert and oriented to person, place, and time. Mental status is at baseline. Psychiatric: Mood and Affect: Mood normal. Behavior: Behavior normal. Results from last 7 days Lab Units 06/13/21 0441 06/12/21 1036 WBC 10*3/uL 0.71* 0.49* HEMOGLOBIN g/dL 9.7* 10.1* HEMATOCRIT % 28.4* 30.7* PLATELETS 10*3/uL 26* 10* Results from last 7 days Lab Units 06/13/21 0441 06/12/21 1036 SODIUM mmol/L 141 143 POTASSIUM mmol/L 4.1 4.1 CHLORIDE mmol/L 103 103 CO2 mmol/L 27 26 BUN mg/dL 19 26* CREATININE mg/dL 0.66* 0.81 CALCIUM mg/dL 8.9 9.2 BILIRUBIN TOTAL mg/dL -- 0.6 ALKALINE PHOSPHATASE U/L -- 69 ALT U/L -- 13 AST U/L -- 20 GLUCOSE mg/dL 94 103* Imaging: Imaging personally reviewed. XR Chest 1 View Result Date: 06/12/2021 No acute disease Assessment and Plan: This is a 56 yoM with PMHx including recurrent stage IV laryngeal cancer on palliative chemotherapy(05/30/21 Cycle 4 carboplatin/5FU) who presents to ED from oncology clinic for hypoxia, generalized weakness and poor PO intake. Found to be COVID positive. CT imaging showing bibasilar aspiration. ?? #Acute hypoxic respiratory failure 2/2 COVID-19 and aspiration in immunocompromised pt - Pt. O2 sat 90% on RA at rest, stable on trach mask 10 L. - CT PE negative for PE, showing bibasilar aspiration - T-max 99.2 with WBC and procal WNL CRP (16) - today was 96 % on RA. PLAN: - ??06/12 Remdesivir x 5 days and dexamethasone 6 mg PO daily x 10 days with GI ppx - trend inflammatory markers - albuterol MDI PRN - supplemental O2 for sats >92% if needed. ?? #Pancytopenia with neutropenia 2/2 chemo and malignancy - WBC (0.49) ANC (310) Hgb (10.1) Plts (<10) PLAN: - 06/12 - s/p 1 unit Plts in ED - infectious work up started with blood cx, urine cx - per oncology recs: vancomycin and an zosyn started empirically -> deescalate as able - monitor with CBC and transfuse for Hgb <7 and PLts <10 ?? 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 #HTN - BP was high yesterday and this AM PLAN: - resume home lisinopril + Amlodipine and add clonidine PRN ?? #Recurrent stage IV laryngeal cancer - Per chart review, pt is followed by Dr. Correia and Dr. Carpenter - pt currently receiving palliative chemo - 05/30/21 Cycle 4 carboplatin/5FU PLAN: - consult med/onc in AM ?? #Cancer related pain - home regimen includes morphine CR 60 mg q12h with oxycodone 30 mg q8h PRN for breakthrough - pt has been crushing home morphine CR PLAN: - switch from morphine CR to fentanyl patch per pharm dosing - morphine IV PRN for breakthrough - monitor for over-sedation - narcan ordered ?? #DMII - glucose (103) on admit labs PLAN: - fingersticks q6h while NPO with SSI - hypoglycemia protocol ordered ?? #h/o DVT PLAN: - pt does not appear to be on Xarelto any longer ?? #Cheomtherapy induced nausea PLAN: - zofran IV PRN ?? #Hypothryoidism PLAN: - continue levothyroxine when able to tolerate PO ?? #BPH PLAN: - continue tamsulosin when able to tolerate PO ?? #GERD PLAN: - continue PPI IV for now ?? DVT PPX: SCDs GI PPX: PPI Code status - DNR/DNI * Progress Notes - Warren Reed, [facility] - 06/13/2021 11:00 AM EST Speech Language Pathology TEP Evaluation PMH/HPI: Mr. Heath completed chemoradiation therapy for a [id number] SCCa of the supraglottis in July of 2017. Unfortunately, he developed recurrent disease and required a salvage extended total laryngectomy with partial glossectomy on 03/22/2018. He was taken to the OR on 12/19/2018 for a tracheoesophageal puncture and Z-plasty with release of scar tissue. In August of 2019, he was diagnosed and treated for a right upper extremity DVT. On 11/21/2019, Mr. Heath was taken to the OR for a right wedge VATS resection. Pathology revealed SCCa. Mr. Heath subsequently completed SBRT x 6 on 03/29/2020 and continues to receive chemotherapy. has since been diagnosed with persistence of disease in this area and is currently undergoing chemotherapy for the same. Mr. Heath has had ongoing issues with dysphagia and has undergone several esophageal dilation procedures with modest results. His prosthesis was last changed on 03/03/2021 at which time a [employer], 10mm, 17 Fr prosthesis was placed. Pt underwent esophageal dilation and biopsy on 04/10. Pt presents to [facility] ED from oncology clinic on 06/12 for generalized weakness and poor PO intake. Pt reports poor PO intake. He notes that he is still experiencing dysphagia and has to chew his few a very long time and crush all meds. He was noted to be hypoxic in onc clinic today, and sent to ED for p ossible infectious process. COVID returned positive. [facility] services consulted 2/2 dysphagia. TEP evaluation indicated given possible aspiration of liquidsduring PO intake. Pt presentation 2/2 poor PO intake r/t significant h/o esophageal stenosis which is managed by [facility]. S: Pt alert upon [facility]FER entrance. Pt consents to TEP evaluation. Pt indicates that he does not have any of his typical TEP/stoma care items given admit from clinic. O: Anya-stomal area is clean and free of debris. TEP is noted and coated in thick, dried mucus which is removed by [facility]IDENTIAL ROOFER. Small amount of dried mucus is removed from TEP using a TEP cleaning brush. Stoma is functionally patent but likely reduced in size given that pt wear LaryTube to avoid stomal stenosis. Pt drinks multiple sips of water without leakage observed. TEP re-oriented. Fenestrated LaryTube is placed by RESIDENTIAL ROOFER using surgi-lube. LaryTube is snug but no skin blanching is noted. Pt provided with HME, TEP cleaning brush, LaryTube holders x2. A: Pt's TEP rotates freely within the tract. No central or peripheral leakage is noted. Neophonation is characteristically fluent for this pt. TEP removal and placement is not indicated at this time.Laryngectomy supplies provided, including LaryTube, HMEs, and TEP cleaning brush. P: Continue with daily TEP care. Follow up with [facility] as needed for TEP maintenance upon discharge. If TEP leakage is noted during hospitalization, re-consult [facility]. * Progress Notes - Prem Diehl, OT - 06/13/2021 10:15 AM EST Occupational Therapy Evaluation Patient Name: Anibal Heath Today's Date: 06/13/2021 OT Discharge Recommendations: Home with assistance History Anibal Heath is 56 y.o. male admitted 06/12/2021 for work-up of Acute COVID-19. Problem List Active Hospital Problems Diagnosis Date Noted ??? Acute COVID-19 06/12/2021 ??? Dysphagia causing pulmonary aspiration with swallowing 04/22/2021 ??? 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 Neoplasm related pain 10/14/2020 ??? Chronic GERD 10/18/2019 ??? Diabetes mellitus (CMS/HCC) 04/12/2017 ??? Hypertension 04/12/2017 ??? Cancer of larynx (CMS/HCC) 03/18/2017 Procedures Past Medical History Patient has a past medical history of Chronic pain disorder, Dysphagia (2020), Essential (primary) hypertension, Heartburn, Hypothyroidism due to non- medication exogenous substances (12/26/2020), Laryngeal cancer (CMS/HCC), Neoplasm related pain (10/14/2020), Other diseases of pharynx, Personal history of antineoplastic chemotherapy, Personal history of irradiation, Personal history of other diseases of the respiratory system, Personal history of other endocrine, nutritional and metabolic disease, Personal history of other specified conditions (2018), Pure hypercholesterolemia, unspecified, Unspecified disorder of ear, unspecified ear, Unspecified disorder of nose and nasal sinuses, and Unspecified osteoarthritis, unspecified site. Past Surgical History Patient has a past surgical history that includes Other surgical history (N/A); Other surgical history (N/A); Other surgical history (N/A); Gastrostomy tube placement (N/A); Esophagogastroduodenoscopy (N/A); Laryngoscopy (N/A); and Other surgical history (N/A). Precautions Medical Precautions: (COVID Isolation; General Mobility Guidelines) Subjective Pt reports feeling at his baseline for ADLs/mobility (limited mobility as IV tethered to bed post this session). Participants in Care Family/Caregiver Present: No Sap Grc Security: Not Applicable Presentation Oxygen Therapy: Supplemental oxygen O2 Delivery Method: Venturi mask,Trach mask FiO2 (%): 40 % O2 Flow Rate (L/min): 15 L/min Lines and Tubes: Tracheostomy tube,Telemetry,Intravenous access Pre-Session: Sitting: edge of bed,Lines intact Pre-Session Comments: RN cleared pt for PT initial evaluation this date. Post-Session: Supine,Head of bed elevated,Lines intact,RN notified,Call light in reach Home Living/Set-up Lives With: Spouse Home Type: House Home Adaptive Equipment: None Home Layout: One level,Stairs to enter with rails Number of Stairs: 2 Bathroom: Accessibility: Accessible Prior Level of Function Receives Help From: No assist required prior to admission Level of Mobility: Ambulatory- community Mobility Lillian: Independent gait without device History of Falls: No ADL Performance: Independent Patient/Family Goals Statement Pt agreeable to OT eval Objective Pain Pain Assessment Pain Assessment: No/denies pain Pain Score: 0 - No pain Delirium Screening Chopra Agitation Sedation Scale (RASS): Alert and calm Confusion Assessment Method-ICU (CAM-ICU/PCAM-ICU) Feature 3: Altered Level of Consciousness: Negative Cognition Overall Cognitive Status: Within Functional Limits Arousal/Alertness: Appropriate responses to stimuli Mood/Behavior: Alert Orientation Level: Oriented X4 Single Step Commands: Consistently Multi-Step Commands: Consistently Method of Communication: Verbal (Required thumb over stoma to speak with therapy team) Vision - Basic Assessment Current Vision: Intact Tracking: Intact Right Upper Extremity Examination RUE ROM Assessment RUE Assessment: Within Functional Limits Manual Muscle Testing - RUE: Within functional limits Sensation Light Touch: Right Upper Extremity: Intact Left Upper Extremity Examination LUE ROM Assessment LUE Assessment: Within Functional Limits Manual Muscle Testing - LUE: Within functional limits Sensation Light Touch: Left Upper Extremity: Intact Right Lower Extremity Examination RLE ROM Assessment RLE Assessment: Within Functional Limits Manual Muscle Testing - RLE: Within functional limits Sensation Light Touch: Right Lower Extremity: Intact Left Lower Extremity Examination LLE ROM Assessment LLE Assessment: Within Functional Limits Manual Muscle Testing: Within functional limits Sensation Light Touch: Left Lower Extremity: Intact Bed Mobility Bed Mobility Exam: Scooting/Bridging Level of Lillian: Stand-by assist (seated scooting towards EOB) Physical/Nonphysical Assist: Supervision Bed Mobility Exam: Supine to Sit Level of Lillian: (not formally assessed; pt seated at EOB upon arrival.) Bed Mobility Exam: Sit to Supine Level of Lillian: Stand-by assist Physical/Nonphysical Assist: Supervision,HOB elevated Transfers Transfer Exam: Sit to stand Level of Lillian: Stand-by assist Physical/Nonphysical Assist: Supervision Transfer Exam: Stand to Sit Level of Lillian: Stand-by assist Physical/Nonphysical Assist: Supervision Balance Postural Appearance Posture: Within Functional Limits Static Sitting Balance Static Sitting-Balance Support: No upper extremity support,Feet supported Static Sitting-Level of Assistance: Standby assist Dynamic Sitting Balance Dynamic Sitting-Balance Support: No upper extremity support,Feet supported Level of Assistance: Standby assisst Static Standing Balance Static Standing-Balance Support: No upper extremity supported Static Standing-Level of Assistance: Standby assist Dynamic Standing Balance Dynamic Standing-Balance Support: No upper extremity support Dynamic Standing Level of Assistance: Standby assist Therapeutic Activity (10 minutes) Pt sat EOB several minutes to increase sitting tolerance as prep for ADLs. Stood from EOB with SBA.Pt able to march in place and perform sidesteps (limited as pt IV connected to bed and no IV pole present). Pt O2 dropped into low 80s with standing activity but quickly recovered at rest. Returned supine with SBA. Self-Care Interventions Lower Extremity Dressing Sock Level of Assistance: Independent Shoe Level of Assistance: Independent LE Dressing Where Assessed: Edge of bed Standardized Assessments Tana Index Feeding: Independent Bathing: Independent (or in Shower) Grooming: Independent face/hair/teeth/shaving (implements provided) Dressing: Independent (including buttons, zips, laces etc.) Bowels: Continent Bladder: Continent Toilet Use: Needs some help but can do some things alone Transfers (Bed to Chair and Back): Minor help (verbal or physical) Mobility (on Level Surfaces): Immobile or < 50 yards Stairs: Needs help (verbal, physical, carrying aid) Total Score: 70 Assessment Pt presents with covid 19. O2 drops with activity but patient reports at baseline for ADLs/mobility. Encouraged pt to ambulate in room daily with nursing to increase overall endurance. No further inpatient OT needs at this time. Pt in agreement. OT Findings: Decreased endurance/ventilation/gas exchange Evaluation/Treatment Tolerance: Patient limited by fatigue Eval Complexity Occupational Profile: Brief history including review of medical/therapy records relating to presenting problem Performance Deficits: Body functions,Personal,Physical Clinical Decision Making: Low Overall Eval complexity: Low OT Recommendations Discharge Destination: Home with assistance Discharge Equipment: Plan Patient no longer demonstrates need for inpatient occupational therapy services. Patient to be discharged from occupational therapy. Written by Prem Diehl OT on 06/13/21 at 3:03 PM. * Progress Notes - Amy Cedeño - 06/13/2021 10:14 AM EST Physical Therapy Evaluation Patient Name: Anibal Heath Today's Date: 06/13/2021 PT Discharge Recommendations: Home with assistance Equipment Recommended: None History Anibal Heath is 56 y.o. male admitted 06/12/2021 for work-up of Acute hypoxemic respiratory failure due to COVID-19 (CMS/[facility]). Problem List Active Hospital Problems Diagnosis Date Noted ??? Acute hypoxemic respiratory failure due to COVID-19 (CMS/HCC) 06/12/2021 ??? Dysphagia causing pulmonary aspiration with swallowing 04/22/2021 ??? 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 Neoplasm related pain 10/14/2020 ??? Chronic GERD 10/18/2019 ??? Diabetes mellitus (CMS/HCC) 04/12/2017 ??? Hypertension 04/12/2017 ??? Cancer of larynx ([facility]/HCC) 03/18/2017 Past Medical History Patient has a past medical history of Chronic pain disorder, Dysphagia (2020), Essential (primary) hypertension, Heartburn, Hypothyroidism due to non- medication exogenous substances (12/26/2020), Laryngeal cancer (CMS/HCC), Neoplasm related pain (10/14/2020), Other diseases of pharynx, Personal history of antineoplastic chemotherapy, Personal history of irradiation, Personal history of other diseases of the respiratory system, Personal history of other endocrine, nutritional and metabolic disease, Personal history of other specified conditions (2018), Pure hypercholesterolemia, unspecified, Unspecified disorder of ear, unspecified ear, Unspecified disorder of nose and nasal sinuses, and Unspecified osteoarthritis, unspecified site. Past Surgical History Patient has a past surgical history that includes Other surgical history (N/A); Other surgical history (N/A); Other surgical history (N/A); Gastrostomy tube placement (N/A); Esophagogastroduodenoscopy (N/A); Laryngoscopy (N/A); and Other surgical history (N/A). Precautions Medical Precautions: (COVID Isolation; General Mobility Guidelines) Subjective Pt initially presenting with nausea and active vomiting when asking subjective questions at start of session. However, pt in agreement and eager to participate in PT initial evaluation this date. Participants in Care Family/Caregiver Present: No Sap Grc Security: Not Applicable Presentation Oxygen Therapy: Supplemental oxygen O2 Delivery Method: Venturi mask,Trach mask FiO2 (%): 40 % O2 Flow Rate (L/min): 15 L/min Lines and Tubes: Tracheostomy tube,Telemetry,Intravenous access Pre-Session: Sitting: edge of bed,Lines intact Pre-Session Comments: RN cleared pt for PT initial evaluation this date. Post-Session: Supine,Head of bed elevated,Lines intact,RN notified,Call light in reach Home Living/Set-up Lives With: Spouse Home Type: House Home Adaptive Equipment: None Home Layout: One level,Stairs to enter with rails Number of Stairs: 2 Bathroom: Accessibility: Accessible Prior Level of Function Receives Help From: No assist required prior to admission Level of Mobility: Ambulatory- community Mobility Lillian: Independent gait without device History of Falls: No ADL Performance: Independent Patient/Family Goals Pt states desire to return home. Objective Pain Pain Assessment Pain Assessment: No/denies pain Pain Score: 0 - No pain Delirium Screening Chopra Agitation Sedation Scale (RASS): Alert and calm Confusion Assessment Method-ICU (CAM-ICU/PCAM-ICU) Feature 3: Altered Level of Consciousness: Negative Cognition Overall Cognitive Status: Within Functional Limits Arousal/Alertness: Appropriate responses to stimuli Mood/Behavior: Alert Orientation Level: Oriented X4 Single Step Commands: Consistently Multi-Step Commands: Consistently Method of Communication: Verbal (Required thumb over stoma to speak with therapy team) Vision - Basic Assessment Current Vision: Intact Tracking: Intact Right Upper Extremity Examination RUE Assessment: Within Functional Limits Manual Muscle Testing - RUE: Within functional limits Sensation Light Touch: Right Upper Extremity: Intact Left Upper Extremity Examination LUE ROM Assessment LUE Assessment: Within Functional Limits Manual Muscle Testing - LUE Manual Muscle Testing - LUE: Within functional limits Sensation Light Touch: Left Upper Extremity: Intact Right Lower Extremity Examination RLE ROM Assessment RLE Assessment: Within Functional Limits Manual Muscle Testing - RLE Manual Muscle Testing - RLE: Within functional limits Sensation Light Touch: Right Lower Extremity: Intact Left Lower Extremity Examination LLE Assessment: Within Functional Limits Manual Muscle Testing: Within functional limits Sensation Light Touch: Left Lower Extremity: Intact Bed Mobility Bed Mobility Exam: Scooting/Bridging Level of Lillian: Stand-by assist (seated scooting towards EOB) Physical/Nonphysical Assist: Supervision Assistive Device: Bed rails Bed Mobility Exam: Supine to Sit Level of Lillian: (not formally assessed; pt seated at EOB upon arrival.) Bed Mobility Exam: Sit to Supine Level of Lillian: Stand-by assist Physical/Nonphysical Assist: Supervision,HOB elevated Transfers Transfer Exam: Sit to stand Level of Lillian: Stand-by assist Physical/Nonphysical Assist: Supervision Transfer Exam: Stand to Sit Level of Lillian: Stand-by assist Physical/Nonphysical Assist: Supervision Ambulation Device: No device Assistance: Standby assist Distance : ~3ft side steps X 4 reps Ambulation Comments: Demostrated appropriate lateral step length and oleg without LOB. Also ableto participate in standing marches for ~30 seconds. Balance Postural Appearance Posture: Within Functional Limits Static Sitting Balance Static Sitting-Balance Support: No upper extremity support,Feet supported Static Sitting-Level of Assistance: Standby assist Dynamic Sitting Balance Dynamic Sitting-Balance Support: No upper extremity support,Feet supported Level of Assistance: Standby assisst Static Standing Balance Static Standing-Balance Support: No upper extremity supported Static Standing-Level of Assistance: Standby assist Dynamic Standing Balance Dynamic Standing-Balance Support: No upper extremity support Dynamic Standing Level of Assistance: Standby assist Therapeutic Activity (8 minutes) Participated in bed mobility, static/dynamic balance, sit to stand transfers and ambulation as detailed above to promote increased IND with all functional mobility. While performing standing activities, pt's SpO2 dropped to low 80's. However, rapid recovery noted with improved placement/positioningof mask over trach. Pt denied any unsteadiness/SOA throughout session. Standardized Assessments Standardized Assessments Standardized Assessments: [facility] 6-Clicks Mobility Assessment [facility] 6-Clicks Mobility Assessment Difficulty patient has turning over in bed (including adjusting bedclothes, sheets, and blankets)?:None Difficulty patient has sitting down on and standing up from a chair with arms (wheelchair, bedside commode, etc.)?: None Difficulty patient has moving from lying on back to sitting on the side of the bed?: None How much help does the patient need moving to and from a bed to a chair (including a wheelchair)?: None How much help does the patient need to walk in hospital room?: None How much help does the patient need climbing 3-5 steps with a railing?: A little [facility] 6-Clicks Mobility Assessment Total : 23 Assessment In addition to PT initial evaluation, pt participated in 8 minute therapeutic activity session focused on bed mobility, static/dynamic balance in seated and standing positions, sit to stand transfers, ambulation, functional endurance and pt education regarding HEP and mobility. Pt's primary limitation is impaired ventilatory status, however, pt able to perform all functional mobility tasks with stand-by assist and demonstrated no LOB. Based on current presentation, pt safe to return home with assistance available as needed once medically appropriate. If pt's status is to change, please re-consult. Otherwise, PT to sign-off. Impairments: Decreased endurance, ventilation, and/or gas exchange Activity Limitations: (No activity limitations noted with initial evaluation.) Participation Restrictions: Self-care,Home management,Community leisure Activity Tolerance: Tolerates 10 - 20 min activity with multiple rests Diagnosis: Impaired ventilatory status given recent COVID-19 diagnosis. Eval Complexity History Profile: 1 - 2 personal factors and/or comorbidities Clinical Presentation: Evolving clinical presentation with changing characteristics Clinical Decision Making: Moderate complexity PT Recommendations Discharge Destination: Home with assistance Discharge Equipment: None Plan Planned PT Interventions (No skilled PT interventions required at this time; PT to sign-off) Written by Amy Cedeño on 06/13/21 at 1:40 PM. * Nursing Note - Kristin Hayward RN - 06/13/2021 6:22 AM EST Cane * Progress Notes - Doug Cabello - 06/12/2021 3:26 PM EST Pharmacokinetic Consult - Vancomycin HPI and Hospital Course: Anibal Heath is a 56 y.o. male admitted for Acute hypoxemic respiratory failure due to COVID-19 ([facility]). Pharmacy consulted to dose vancomycin for neutropenia. Weight: 89.3 kg Scr: 0.81 mg/dl Assessment and Plan: Vancomycin 2250mg loading dose. Vancomycin 1500mg q12h maintenance dose. Would suggest obtaining BMP at least 2-3 times weekly while admitted to assess renal function (Scr/BUN/UOP). Will order vancomycin peak/trough as appropriate to assess safety and efficacy of dose. Goal AUC 400-600 and goal trough 10-20 mcg/mL Monitor for changes in clinical status and adjust antimicrobial therapy as appropriate. Pharmacy will continue to follow. Thanks Dev Cabello PharmCristian * Progress Notes - Doug Cabello - 06/12/2021 3:15 PM EST A request for Pharmacist to Dose was entered for conversion from morphine cr 60mg BID to fentanylpatch. An individualized dose was entered on behalf of the requesting MD/MOHINI. Details are listed below: Medication/Dose/Route/Frequency: Fentanyl 50mcg/hr q72h transdermal patch Indication: pain control secondary to cancer of larynx Comments: Patient is on morphine cr 60mg BID at home and oxycodone 60mg q6h prn. Only dosing patch to replaced morphine dose. Morphine 100mg/day oral translates to approximately fentanyl 50mcg/hr transdermal. Thanks Dev Cabello, PharmD * H&P - Ne Lynn NP - 06/12/2021 2:37 PM ESTAssociated Order(s): Consult to [facility] Consult to [facility] Consult performed by: Ne Cruz NP Consult ordered by: ROSENDA Miranda Reason for consult: COVID, generalized weakness, poor PO intake Chief Complaint:COVID, generalized weakness, poor PO intake History of Present Illness: This is a 56 year old male with PMHx including recurrent stage IV laryngeal cancer on palliative chemotherapy (05/30/21 Cycle 4 carboplatin/5FU) who presents to ED from oncology clinic for generalized weakness and poor PO intake. Pt reports poor PO intake. He notes that he is still experiencing d ysphagia and has to chew his few a very long time and crush all meds. He was noted to be hypoxic inonc clinic today, and sent to ED for possible infectious process. COVID returned positive. Pt denies any fever/chills, shortness of air, chest pain, abd pain, nausea/vomiting/dairrhea. Review of Systems Constitutional: Positive for activity change and fatigue. Negative for chills and fever. HENT: Negative for congestion, sore throat and trouble swallowing. Eyes: Negative for photophobia and visual disturbance. Respiratory: Negative for cough, chest tightness, shortness of breath and wheezing. Cardiovascular: Negative for chest pain, palpitations and leg swelling. Gastrointestinal: Negative for abdominal distention, abdominal pain, constipation, diarrhea, nauseaand vomiting. Genitourinary: Negative for difficulty urinating, dysuria and hematuria. Musculoskeletal: Negative for back pain, gait problem and joint swelling. Skin: Negative for color change and wound. Neurological: Negative for dizziness, seizures, syncope, weakness, numbness and headaches. Hematological: Negative for adenopathy. Does not bruise/bleed easily. Psychiatric/Behavioral: Negative for agitation, confusion and suicidal ideas. Past Medical History: Recurrent stage IV laryngeal cancer HTN DMII Dysphagia BPH GERD Hypothyroidism HLD Past Surgical History: 04/10/21 - esophageal dilation and laryngoscopy with biopsy 02/10/18 - DL with bx 05/20/17 - PEG placement for dislodged PEG 03/03/17 - DL with bx, tracheostomy, PEG placement Social History: Pt. lives with his in [place], [place]. Tobacco: quit EtOH: denies Illicit substances: denies Family History: Family History Problem Relation Name Age of Onset ??? Stroke Father ??? Kidney failure Father FH: kidney failure ??? Liver cancer Mother FH: liver cancer ??? Breast cancer Sister ??? Uterine cancer Sister ??? Heart attack Sister ??? Uterine cancer Sister FH: uterine cancer ??? Anesthesia problems Neg Hx ??? Malig Hyperthermia Neg Hx Allergies: Allergies Allergen Reactions ??? Cetuximab Anaphylaxis SOA, hypotension, after 9 ml of drug ??? Docetaxel Rash, Shortness of breath and Unknown Patient very dyspnic, flushed, severe back pain. Patient very dyspnic, flushed, severe back pain. Patient very dyspnic, flushed, severe back pain. ??? Methadone Rash, Other and Unknown Medications: Meds obtained from patient list and dispense history. Further clarification needed from pharm. Patient's Medications New Prescriptions No medications on file Previous Medications ALPRAZOLAM (XANAX) 1 MG TABLET 1 tab(s) orally 2 times a day, As Needed AMLODIPINE-ATORVASTATIN (CADUET) 10-10 MG TABLET Take 1 tablet by mouth 1 (one) time each day. GABAPENTIN (NEURONTIN) 600 MG TABLET Take 1 tablet (600 mg total) by mouth 4 (four) times a day. LEVOTHYROXINE (SYNTHROID, LEVOXYL) 150 MCG TABLET TAKE 1 TABLET DAILY. LISINOPRIL 10 MG TABLET TAKE 1 TABLET BY MOUTH EVERY DAY METOPROLOL TARTRATE (LOPRESSOR) 50 MG TABLET 1 tab(s) orally 2 times a day MORPHINE CR (MS CONTIN) 60 MG 12 HR TABLET Do not crush, chew, or split. OMEPRAZOLE (PRILOSEC) [address] CAPSULE TAKE 1 CAPSULE BY MOUTH EVERY DAY ONDANSETRON (ZOFRAN) 8 MG TABLET Take 1 tablet (8 mg total) by mouth 2 (two) times a day. Starting day after chemo for 3 days. OXYCODONE (ROXICODONE) 30 MG IMMEDIATE RELEASE TABLET PROCHLORPERAZINE (COMPAZINE) 10 MG TABLET Take 1 tablet (10 mg total) by mouth every 6 (six) hours if needed for nausea or vomiting. Modified Medications No medications on file Discontinued Medications No medications on file Objective: Last Recorded Vitals Blood pressure 169/90, pulse 56, resp. rate 14, SpO2 97 %. Physical Exam Vitals and nursing note reviewed. Constitutional: General: He is not in acute distress. Appearance: Normal appearance. He is not ill-appearing, toxic-appearing or diaphoretic. HENT: Head: Normocephalic and atraumatic. Nose: No congestion. Mouth/Throat: Mouth: Mucous membranes are moist. Pharynx: Oropharynx is clear. Eyes: General: No scleral icterus. Extraocular Movements: Extraocular movements intact. Pupils: Pupils are equal, round, and reactive to light. Cardiovascular: Rate and Rhythm: Normal rate and regular rhythm. Pulses: Normal pulses. Heart sounds: Normal heart sounds. Pulmonary: Effort: Pulmonary effort is normal. No respiratory distress. Breath sounds: No stridor. No rhonchi. Comments: Decreased jr bases Abdominal: General: Abdomen is flat. Bowel sounds are normal. There is no distension. Palpations: Abdomen is soft. Tenderness: There is no abdominal tenderness. There is no guarding or rebound. Musculoskeletal: General: No swelling, tenderness or deformity. Normal range of motion. Cervical back: Normal range of motion. No tenderness. Right lower leg: No edema. Left lower leg: No edema. Skin: General: Skin is warm and dry. Capillary Refill: Capillary refill takes less than 2 seconds. Findings: No lesion. Neurological: General: No focal deficit present. Mental Status: He is alert and oriented to person, place, and time. Mental status is at baseline. Psychiatric: Mood and Affect: Mood normal. Behavior: Behavior normal. Imaging: Imaging personally reviewed. XR Chest 1 View Result Date: 06/12/2021 No acute disease Labs reviewed - Relevant Results Results from last 7 days Lab Units 06/12/21 1036 WBC 10*3/uL 0.49* HEMOGLOBIN g/dL 10.1* HEMATOCRIT % 30.7* PLATELETS 10*3/uL 10* Results from last 7 days Lab Units 06/12/21 1036 SODIUM mmol/L 143 POTASSIUM mmol/L 4.1 CHLORIDE mmol/L 103 CO2 mmol/L 26 BUN mg/dL 26* CREATININE mg/dL 0.81 CALCIUM mg/dL 9.2 BILIRUBIN TOTAL mg/dL 0.6 ALKALINE PHOSPHATASE U/L 69 ALT U/L 13 AST U/L 20 GLUCOSE mg/dL 103* Results from last 7 days Lab Units 06/12/21 1036 MAGNESIUM mg/dL 1.8* Assessment/Plan Principal Problem: Acute hypoxemic respiratory failure due to COVID-19 (CMS/HCC) Active Problems: Cancer of larynx (CMS/HCC) Chronic GERD Diabetes mellitus (CMS/HCC) Hypertension Neoplasm related pain 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 Dysphagia causing pulmonary aspiration with swallowing Assessment and Plan: This is a 56 yoM with PMHx including recurrent stage IV laryngeal cancer on palliative chemotherapy(05/30/21 Cycle 4 carboplatin/5FU) who presents to ED from oncology clinic for hypoxia, generalized weakness and poor PO intake. Found to be COVID positive. CT imaging showing bibasilar aspiration. #Acute hypoxic respiratory failure 2/2 COVID-19 and aspiration in immunocompromised pt - Pt. O2 sat 90% on RA at rest, stable on trach mask 10 L. - CT PE negative for PE, showing bibasilar aspiration - T-max 99.2 with WBC and procal WNL CRP (16) PLAN: - 06/12 - starting Remdesivir x 5 days and dexamethasone 6 mg PO daily x 10 days with GI ppx - trend inflammatory markers - albuterol MDI PRN - supplemental O2 for sats >92% #Pancytopenia with neutropenia 2/2 chemo and malignancy - WBC (0.49) ANC (310) Hgb (10.1) Plts (<10) PLAN: - 06/12 - s/p 1 unit Plts in ED - infectious work up started with blood cx, urine cx - per oncology recs: vancomycin and an zosyn started empirically -> deescalate as able - monitor with CBC and transfuse for Hgb <7 and PLts <10 #Malnutritoin 2/2 cancer and dysphagia c/b aspiration - CT today shows bibasilar aspiration whih is new since last CT from 05/08/21 - 04/10/21 s/p esophageal dilation - possible dilation vs PEG tube placement PLAN: - NPO pending swallow eval with speech #HTN - BP acceptable, reports of presyncope/orthostatic hypotension PLAN: - hold home lisinopril and metoprolol for tonight - monitor and resume in stepwise manner as able #Recurrent stage IV laryngeal cancer - Per chart review, pt is followed by Dr. Correia and Dr. Carpenter - pt currently receiving palliative chemo - 05/30/21 Cycle 4 carboplatin/5FU PLAN: - consult med/onc in AM #Cancer related pain - home regimen includes morphine CR 60 mg q12h with oxycodone 30 mg q8h PRN for breakthrough - pt has been crushing home morphine CR PLAN: - switch from morphine CR to fentanyl patch per pharm dosing - morphine IV PRN for breakthrough - monitor for over-sedation - narcan ordered #DMII - glucose (103) on admit labs PLAN: - fingersticks q6h while NPO with SSI - hypoglycemia protocol ordered #h/o DVT PLAN: - pt does not appear to be on Xarelto any longer #Cheomtherapy induced nausea PLAN: - zofran IV PRN #Hypothryoidism PLAN: - continue levothyroxine when able to tolerate PO #BPH PLAN: - continue tamsulosin when able to tolerate PO #GERD PLAN: - continue PPI IV for now F - NS @ 100 E - monitor and correct as needed N - NPO DVT PPX: SCDs GI PPX: PPI Code status - DNR/DNI Family contact - Extended Emergency Contact Information Primary Emergency Contact: AMY HEATH Mobile Relation: Spouse Sap Gr[employer] Security needed? No Ne Cruz, [facility] Medicine Pager [phone] Cosigned by Karan Deleon MD at 06/15/2021 4:00 PM EST * ED Provider Notes - Dee Rg PA - 06/12/2021 11:33 AM EST HPI Chief Complaint Patient presents with ??? Dehydration PIT Note Anibal Heath is a 56 y.o. male who presents to ED with dehydration. Pt was sent from onocology clinic for dehydration. He reports decreased PO intake due to vomiting since Wednesday. He is beingtreated for cancer of the larynx and last received chemotherapy 21 days ago. Patient denies fever, chills, cough, chest pain, shortness of breath, abdominal pain, and diarrhea. Per reviewed of the clinic notes and the patient's lab work from earlier today, patient has a history of laryngeal cancer with poor by mouth intake and needs to be scheduled for likely PEG placement.Patient also endorses generalized weakness. Lab work shows significant neutropenia with an ANC lessthan 400. Patient also significantly thrombocytopenic with platelets less than 10. Incidentally, his COVID swab from clinic also came back positive from hours again. Patient is currently on a trach collar for oxygen supplementation. Recommended to have broad-spectrum antibiotics initiated for suspected neutropenic fever, noel cultures, and admission for further management. At this time, patient is in no respiratory distress and although he is of low normal on his blood pressure, he is not yet hypotensive or tachycardic. Date/Time: 06/12/2021/12:02 PM Entered by Lin Phoenix acting as scribe for Dr. Berta Mohan. Scribe Attestation: This note was dictated to me, Lin Phoenix, acting as a scribe for Dr. Beth. Attending Attestation: The documentation was recorded by Lin Phoenix acting as scribe in my presence at the time of the encounter and accurately reflects the service I personally performed. History provided by: Patient web master used: No Patient History Past Medical History: Diagnosis Date ??? Chronic pain disorder neck/face post radiation/cancer. ??? Dysphagia 2020 food must be very [...] Past Surgical History: Procedure Laterality Date ??? ESOPHAGOGASTRODUODENOSCOPY N/A Esophagogastroduodenoscopy from [facility] ??? GASTROSTOMY TUBE PLACEMENT N/A Percutaneous endoscopic gastrostomy tube insertion from [facility] ??? LARYNGOSCOPY N/A Laryngoscopy from [facility] ??? OTHER SURGICAL HISTORY N/A Neck dissection modified radical from [facility] ??? OTHER SURGICAL HISTORY N/A Percutaneous endoscopic gastrostomy tube removal from [facility] ??? OTHER SURGICAL HISTORY N/A Laryngectomy from [facility] ??? OTHER SURGICAL HISTORY N/A Trachectomy from [facility] Family History Problem Relation Name Age of Onset ??? Stroke Father ??? Kidney failure Father FH: kidney failure ??? Liver cancer Mother FH: liver cancer ??? Breast cancer Sister ??? Uterine cancer Sister ??? Heart attack Sister ??? Uterine cancer Sister FH: uterine cancer ??? Anesthesia problems Neg Hx ??? Malig Hyperthermia Neg Hx Tobacco Use ??? Smoking status: Former Smoker Quit date: 2001 Years since quittin.0 ??? Smokeless tobacco: Never Used Substance Use Topics ??? Alcohol use: Not Currently Comment: Alcoholic Drinks/day: Quit consuming alcohol in remote past ??? Drug use: Not Currently Allergies Allergen Reactions ??? Cetuximab Anaphylaxis SOA, hypotension, after 9 ml of drug ??? Docetaxel Rash, Shortness of breath and Unknown Patient very dyspnic, flushed, severe back pain. Patient very dyspnic, flushed, severe back pain. Patient very dyspnic, flushed, severe back pain. ??? Methadone Rash, Other and Unknown Review of Systems Review of Systems Constitutional: Positive for appetite change. Negative for chills and fever. HENT: Negative for ear pain and sore throat. Eyes: Negative for pain and visual disturbance. Respiratory: Negative for cough and shortness of breath. Cardiovascular: Negative for chest pain and palpitations. Gastrointestinal: Positive for nausea and vomiting. Negative for abdominal pain. Genitourinary: Negative for dysuria and hematuria. Musculoskeletal: Negative for arthralgias and back pain. Skin: Negative for color change and rash. Neurological: Negative for seizures and syncope. All other systems reviewed and are negative. Physical Exam Visit Vitals BP 169/90 Pulse 56 SpO2 97% Physical Exam Vitals and nursing note reviewed. Constitutional: General: He is not in acute distress. Appearance: Normal appearance. He is well-developed. He is not ill-appearing or diaphoretic. HENT: Head: Normocephalic and atraumatic. Right Ear: External ear normal. No drainage. Left Ear: External ear normal. No drainage. Nose: Nose normal. No rhinorrhea. Comments: Trach collar in place Mouth/Throat: Mouth: Mucous membranes are moist. Pharynx: Oropharynx is clear. Eyes: General: Vision grossly intact. Right eye: No discharge. Left eye: No discharge. Extraocular Movements: Extraocular movements intact. Conjunctiva/sclera: Conjunctivae normal. Pupils: Pupils are equal, round, and reactive to light. Neck: Trachea: Trachea normal. Cardiovascular: Rate and Rhythm: Normal rate and regular rhythm. Heart sounds: Normal heart sounds. No murmur heard. No friction rub. No gallop. Pulmonary: Effort: Pulmonary effort is normal. No accessory muscle usage or respiratory distress. Breath sounds: Normal breath sounds. No stridor. No wheezing or rhonchi. Chest: Chest wall: No mass, deformity or crepitus. Breasts: Breasts are symmetrical. Abdominal: General: Abdomen is flat. There is no distension. Palpations: Abdomen is soft. Tenderness: There is no abdominal tenderness. There is no guarding or rebound. Musculoskeletal: General: Normal range of motion. Cervical back: Normal range of motion and neck supple. No rigidity. Right lower leg: No edema. Left lower leg: No edema. Lymphadenopathy: Cervical: No cervical adenopathy. Skin: General: Skin is warm and dry. Neurological: General: No focal deficit present. Mental Status: He is alert and oriented to person, place, and time. GCS: GCS eye subscore is 4. GCS verbal subscore is 5. GCS motor subscore is 6. Cranial Nerves: Cranial nerves are intact. Gait: Gait is intact. Psychiatric: Attention and Perception: Attention normal. Mood and Affect: Mood and affect normal. Speech: Speech normal. Behavior: Behavior normal. Behavior is cooperative. Thought Content: Thought content does not include homicidal or suicidal ideation. ED COURSE DDX: Neutropenic fever. Sepsis. COVID. Pneumonia. Labs: Labs Reviewed SARS-COV-2, FLU A, FLU B, AND RSV - RAPID BLOOD CULTURE (AEROBIC/ANAEROBIC SET) BLOOD CULTURE (AEROBIC/ANAEROBIC SET) RESPIRATORY CULTURE AND GRAM STAIN URINE CULTURE TYPE AND SCREEN Result Value ABO/Rh A Positive URINALYSIS WITH REFLEX MICROSCOPIC DE [place] HEPATITIS C ANTIBODY ED PROTOCOL HIV 1/2 ANTIBODY/ANTIGEN SCREEN Narrative: The following orders were created for panel order ED Protocol - HIV 1/2 Antibody/Antigen Screen. Procedure Abnormality Status --------- ------ HIV 1 & 2 Antibody/Antige...[[id number]] In process Please view results for these tests on the individual orders. HIV 1/2 ANTIBODY/ANTIGEN SCREEN PREPARE PLATELETS Product Code [id number] Dispense Status Ready for issue Blood Expiration Date [id number] Unit Number [id number] Product Blood Type 6200 Blood Type A+ Rads: XR Chest 1 View Final Result No acute disease CRITICAL RESULT: No. COMMUNICATION: Per this written report. Dictated by Julio Schaefer on 06/12/2021 1:12 PM Signed by Julio Schaefer on 06/12/2021 1:13 PM MDM: Patient seen by the [facility] physician and followed-up by myself. In summary: NARRATIVE: Patient is a 56-year-old male with a complex medical history sent over by oncology for admission and further management. Symptoms clinic visit couple hours ago, patient is now since tested positive for COVID-19, is significantly neutropenic, and is thrombocytopenic. Per recommendations of Dr. Duenas are renal, we will cover with broad-spectrum antibiotics as he should have recovered and no longer been neutropenic following his last round of chemo. Was also given some oxygen supplementation viatrach collar. Broad-spectrum antibiotics and noel cultures were initiated. internal medicine was consulted and will admit the patient to their service for further management and coordination of hiscare. Clinical Impressions as of 06/12/21 1333 Acute COVID-19 Other neutropenia (CMS/HCC) Thrombocytopenia (CMS/HCC) DIAGNOSIS Final diagnoses: [U07.1] Acute COVID-19 [D70.8] Other neutropenia (CMS/HCC) [D69.6] Thrombocytopenia (CMS/HCC) Disposition: Admit to [facility] Orders Placed This Encounter Procedures ??? SARS-CoV-2, Flu A, Flu B, and RSV - Rapid ??? Blood Culture (Aerobic/Anaerobet Set) ??? Blood Culture (Aerobic/Anaerobet Set) ??? Respiratory Culture and Gram Stain ??? Urine culture- (clean catch) ??? CT Soft Tissue Neck w IV Contrast ??? XR Chest 1 View ??? CT Angio Pulmonary Embolism ??? Urinalysis with reflex microscopic ??? [place] Hepatitis C Antibody ??? ED Protocol - HIV 1/2 Antibody/Antigen Screen ? ? HIV 1 & 2 Antibody/Antigen Screen ??? Type and screen ??? Vital signs for transfusion ??? Initiate N95 isolation ??? Initiate contact isolation ??? Initiate eye protection ??? Oxygen Therapy - Device: Trach Collar ??? EKG x1 in 30 min ??? Prepare Leukocyte Reduced Platelets: 1 Units ??? Insert peripheral IV ??? ED to floor bed request ??? Fall precautions ??? Neutropenic Precautions ED Medication Administration from 06/12/2021 1133 to 06/12/2021 1333 Date/Time Order Dose Route Action Action by 06/12/2021 1304 sodium chloride 0.9 % infusion - 1,000mL 1,000 mL Intravenous New Haydee Hanson 06/12/2021 1330 cefepime (Maxipime) 2 g in sodium chloride 0.9% 100 mL IVPB (Mini-Bag Plus) 2 g Intravenous New Bag Haydee Mendoza PA-ROSENDA Jackson 06/12/21 1333 Cosigned by Berta Mohan MD at 06/12/2021 4:01 PM EST Associated attestation - Berta Mohan MD - 06/12/2021 4:01 PM EST IBerta MD, have personally seen and examined the patient independently, reviewed the MOHINI???s Hx, exam, and MDM and agree with the assessment and plan as written. * ED Triage Notes - Jorgito Garza, RN - 06/12/2021 11:33 AM EST Pt sent from chemo clinic for dehydration that started over the weekend, has not been able to tolerate any PO intake since Wednesday. Has a planned PEG tube placement that has not been performed yet. Last chemo 21 days ago for lung/ throat cancer. documented in this encounter Plan of Treatment Upcoming Encounters Date Type Department Care Team (Late st Contact Info) Description 07/17/2024 12:30 PM EST Clinical Support [facility] [address] [place] [id number] 07/17/2024 1:30 PM EST Appointment [facility] [address] [place] [address] 07/20/2024 2:50 PM EST Office Visit [facility] [address] [place] [id number] Divine Carpenter MD [address] [place] [address] Scheduled Orders Name Type Priority Associated Diagnoses Orde r Schedule Respiratory Culture and Gram Stain Microbiology STAT STAT (Lab) for 1 Occurrences starting 06/12/2021 until 06/12/2021 Urine culture- (clean catch) Microbiology STAT STAT (Lab) for 1 Occurrences starting 06/12/2021 until 06/12/2021 documented as of this encounter Procedures Procedure Name Priority Date/Time Associated Diagnosis Comments POCT GLUCOSE METER UNSOLICITED RESULTS Routine 06/16/2021 11:49 AM EST POCT GLUCOSE METER UNSOLICITED RESULTS Routine 06/16/2021 6:02 AM EST POCT GLUCOSE METER UNSOLICITED RESULTS Routine 06/16/2021 12:26 AM EST POCT GLUCOSE METER UNSOLICITED RESULTS Routine 06/15/2021 8:08 PM EST POCT GLUCOSE METER UNSOLICITED RESULTS Routine 06/15/2021 11:58 AM EST OXYGEN THERAPY Routine 06/15/2021 8:00 AM EST POCT GLUCOSE METER UNSOLICITED RESULTS Routine 06/15/2021 7:49 AM EST POCT GLUCOSE METER UNSOLICITED RESULTS Routine 06/14/2021 8:40 PM EST OXYGEN THERAPY Routine 06/14/2021 8:00 PM EST OXYGEN THERAPY Routine 06/14/2021 8:00 AM EST POCT GLUCOSE METER UNSOLICITED RESULTS Routine 06/14/2021 6:00 AM EST POCT GLUCOSE METER UNSOLICITED RESULTS Routine 06/13/2021 9:34 PM EST OXYGEN THERAPY Routine 06/13/2021 8:00 PM EST OXYGEN THERAPY Routine 06/13/2021 8:00 AM EST POCT GLUCOSE METER UNSOLICITED RESULTS Routine 06/13/2021 4:54 AM EST CBC WITH AUTO DIFFERENTIAL Routine 06/13/2021 4:41 AM EST C-REACTIVE PROTEIN, PLASMA Routine 06/13/2021 4:41 AM EST RENAL FUNCTION PANEL, PLASMA Routine 06/13/2021 4:41 AM EST POCT GLUCOSE METER UNSOLICITED RESULTS Routine 06/13/2021 12:24 AM EST OXYGEN THERAPY Routine 06/12/2021 8:00 PM EST POCT GLUCOSE METER UNSOLICITED RESULTS Routine 06/12/2021 6:10 PM EST TRANSFUSE PLATELETS Routine 06/12/2021 2 :[address] ANGIO PULMONARY EMBOLISM STAT 06/12/2021 2:[address] SOFT TISSUE NECK W IV CONTRAST STAT 06/12/2021 2:03 PM EST PROTHROMBIN TIME(PT) / INR Routine 06/12/2021 1:41 PM EST XR CHEST 1 VIEW STAT 06/12/2021 1:01 PM EST ECG ADULT STAT 06/12/2021 12:58 PM EST ED PROTOCOL HIV 1/2 ANTIBODY/ANTIGEN SCREEN W/REFLEX TO HIV 1/2 ANTIBODY DIFFERENTIATION STAT 06/12/2021 12:53 PM EST HIV 1/2 ANTIBODY/ANTIGEN SCREEN WITH REFLEX TO HIV I/II DIFFERENTIATION STAT 06/12/2021 12:53 PM EST HEPATITIS C ANTIBODY - ED W/REFLEX TO HCV QUANT PCR STAT 06/12/2021 12:53 PM EST BLOOD CULTURE (AEROBIC/ANAEROBIC SET) STAT 06/12/2021 12:53 PM EST BLOOD CULTURE (AEROBIC/ANAEROBIC SET) STAT 06/12/2021 12:53 PM EST TYPE AND SCREEN STAT 06/12/2021 12:53 PM EST OXYGEN THERAPY Routine 06/12/2021 12:41 PM EST OXYGEN THERAPY Routine 06/12/2021 12:41 PM EST PREPARE PLATELETS Routine 06/12/2021 12: 32 PM EST PROCALCITONIN, PLASMA Add-On 06/12/2021 10:36 AM EST C-REACTIVE PROTEIN, PLASMA Add-On 06/12/2021 10:36 AM EST documented in this encounter Results * (ABNORMAL) POCT glucose meter (06/16/2021 11:49 AM EST) POCT Glucose 106(H) 74 - 99 mg/dL 06/16/2021 11:50 AM EST [facility] Comment:Accuracy of a glucos e result obtained from a capillary whole blood specimen relies upon adequate, non-compromised capillary blood flow. If the capillary glucose result is not consistent with the patient's clinical signs and symptoms, glucose testing should be repeated with either an arterial or venous sample on the glucometer or sent to the main labortory for testing. Comment 06/16/2021 11:50 AM EST [facility] Tail Ripper ID Tasha Wayne 022 11:50 AM EST [facility] Device ID [id number] 06/16/2021 11:50 AM EST [facility] Specimen Type POC Capillary 06/16/2021 11:50 AM EST [facility] Blood Capillary blood specimen / Unknown 06/16/2021 11:49 AM EST 06/16/2021 11:50 AM EST Jose Spear MD LAB POINT OF CARE TEST DOCKED DEVICE UNSOLICITED RESULTS Final Result [facility] [address] [place] [id number] * POCT glucose meter (06/16/2021 6:02 AM EST) POCT Glucose 90 74 - 99 mg/dL 06/16/2021 6:05 AM EST [facility] Comment:Accuracy of a glucos e result obtained from a capillary whole blood specimen relies upon adequate, non-compromised capillary blood flow. If the capillary glucose result is not consistent with the patient's clinical signs and symptoms, glucose testing should be repeated with either an arterial or venous sample on the glucometer or sent to the main labortory for testing. Comment 06/16/2021 6:05 AM EST [facility] Tail Ripper ID Kesha Richmond 06/16/2021 6:05 AM EST [facility] Device ID [id number] 06/16/2021 6:05 AM EST [facility] Specimen Type POC Capillary 06/16/2021 6:05 AM EST [facility] Blood Capillary blood specimen / Unknown 06/16/2021 6:02 AM EST 06/16/2021 6:05 AM EST us Jose Spear MD LAB POINT OF CARE TEST DOCKED DEVICE UNSOLICITED RESULTS Final Result Performing Organization Address City/[facility]/ZIP Co de Phone Number [facility] [address] [place] [address] * (ABNORMAL) POCT glucose meter (06/16/2021 12:26 AM EST) [facility] POCT Glucose 112(H) 74 - 99 mg/dL 06/16/2021 12:30 AM EST [facility] Comment:Accuracy of a glucos e result obtained from a capillary whole blood specimen relies upon adequate, non-compromised capillary blood flow. If the capillary glucose result is not consistent with the patient's clinical signs and symptoms, glucose testing should be repeated with either an arterial or venous sample on the glucometer or sent to the main labortory for testing. Comment 06/16/2021 12:30 AM EST [facility] Tail Ripper ID Kesha Richmond 06/16/2021 12:30 AM EST [facility] Device ID [id number] 06/16/2021 12:30 AM EST [facility] Specimen Type POC Capillary 06/16/2021 12:30 AM EST [facility] Blood Capillary blood specimen / Unknown 06/16/2021 12:26 AM EST 06/16/2021 12:30 AM EST us Jose Spear MD LAB POINT OF CARE TEST DOCKED DEVICE UNSOLICITED RESULTS Final Result [facility] [address] [place] [address] * (ABNORMAL) POCT glucose meter (06/15/2021 8:08 PM EST) [facility] POCT Glucose 122(H) 74 - 99 mg/dL 06/15/2021 8:10 PM EST [facility] Comment:Accuracy of a glucos e result obtained from a capillary whole blood specimen relies upon adequate, non-compromised capillary blood flow. If the capillary glucose result is not consistent with the patient's clinical signs and symptoms, glucose testing should be repeated with either an arterial or venous sample on the glucometer or sent to the main labortory for testing. Comment 06/15/2021 8:10 PM EST [facility] Tail Ripper ID Kesha Richmond 06/15/2021 8:10 PM EST [facility] Device ID [id number] 06/15/2021 8:10 PM EST [facility] Specimen Type POC Capillary 06/15/2021 8:10 PM EST [facility] Blood Capillary blood specimen / Unknown 06/15/2021 8:08 PM EST 06/15/2021 8:10 PM EST Jose Spear MD LAB POINT OF CARE TEST DOCKED DEVICE UNSOLICITED RESULTS Final Result Performing Organization Address [facility] de Phone Number [facility] [address] [place] [address] * (ABNORMAL) POCT glucose meter (06/15/2021 11:58 AM EST) [facility] POCT Glucose 108(H) 74 - 99 mg/dL 06/15/2021 12:00 PM EST [facility] Comment:Accuracy of a glucos e result obtained from a capillary whole blood specimen relies upon adequate, non-compromised capillary blood flow. If the capillary glucose result is not consistent with the patient's clinical signs and symptoms, glucose testing should be repeated with either an arterial or venous sample on the glucometer or sent to the main labortory for testing. Comment 06/15/2021 12:00 PM EST [facility] Tail Ripper ID Eliel Javier 06/15/2021 12:00 PM EST [facility] Device ID [id number] 06/15/2021 12:00 PM EST [facility] Specimen Type POC Capillary 06/15/2021 12:00 PM EST [facility] Blood Capillary blood specimen / Unknown 06/15/2021 11:58 AM EST 06/15/2021 12:00 PM EST Jose Spear MD LAB POINT OF CARE TEST DOCKED DEVICE UNSOLICITED RESULTS Final Result Performing Organization Address City/[facility] Co de Phone Number [facility] [address] [place] [address] * POCT glucose meter (06/15/2021 7:49 AM EST) POCT Glucose 85 74 - 99 mg/dL 06/15/2021 7:50 AM EST [facility] Comment:Accuracy of a glucos e result obtained from a capillary whole blood specimen relies upon adequate, non-compromised capillary blood flow. If the capillary glucose result is not consistent with the patient's clinical signs and symptoms, glucose testing should be repeated with either an arterial or venous sample on the glucometer or sent to the main labortory for testing. Comment 06/15/2021 7:50 AM EST [facility] Tail Ripper ID Eliel Javier 06/15/2021 7:50 AM EST [facility] Device ID [id number] 06/15/2021 7:50 AM EST [facility] Specimen Type POC Capillary 06/15/2021 7:50 AM EST [facility] Blood Capillary blood specimen / Unknown 06/15/2021 7:49 AM EST 06/15/2021 7:50 AM EST us Jose Spear MD LAB POINT OF CARE TEST DOCKED DEVICE UNSOLICITED RESULTS Final Result Performing Organization Address City/[facility]/ZIP Co de Phone Number [facility] [address] [place] [address] * POCT glucose meter (06/14/2021 8:40 PM EST) POCT Glucose 90 74 - 99 mg/dL 06/14/2021 8:45 PM EST [facility] Comment:Accuracy of a glucos e result obtained from a capillary whole blood specimen relies upon adequate, non-compromised capillary blood flow. If the capillary glucose result is not consistent with the patient's clinical signs and symptoms, glucose testing should be repeated with either an arterial or venous sample on the glucometer or sent to the main labortory for testing. Comment 06/14/2021 8:45 PM EST [facility] Tail Ripper ID Kesha Richmond 06/14/2021 8:45 PM EST [facility] Device ID [id number] 06/14/2021 8:45 PM EST [facility] Specimen Type POC Capillary 06/14/2021 8:45 PM EST [facility] Blood Capillary blood specimen / Unknown 06/14/2021 8:40 PM EST 06/14/2021 8:45 PM EST us Jose Spear MD LAB POINT OF CARE TEST DOCKED DEVICE UNSOLICITED RESULTS Final Result Performing Organization Address City/State/[facility] Co de Phone Number [facility] [address] [place] [address] * (ABNORMAL) POCT glucose meter (06/14/2021 6:00 AM EST) [facility] POCT Glucose 102(H) 74 - 99 mg/dL 06/14/2021 6:15 AM EST [facility] Comment:Accuracy of a glucos e result obtained from a capillary whole blood specimen relies upon adequate, non-compromised capillary blood flow. If the capillary glucose result is not consistent with the patient's clinical signs and symptoms, glucose testing should be repeated with either an arterial or venous sample on the glucometer or sent to the main labortory for testing. Comment 06/14/2021 6:15 AM EST [facility] Tail Ripper ID Mary Vaerla 6:15 AM EST [facility] Device ID [id number] 06/14/2021 6:15 AM EST [facility] Specimen Type POC Capillary 06/14/2021 6:15 AM EST [facility] Blood Capillary blood specimen / Unknown 06/14/2021 6:00 AM EST 06/14/2021 6:15 AM EST us Jose Spear MD LAB POINT OF CARE TEST DOCKED DEVICE UNSOLICITED RESULTS Final Result Performing Organization Address [facility] Co de Phone Number [facility] [address] [place] [address] * (ABNORMAL) POCT glucose meter (06/13/2021 9:34 PM EST) [facility] POCT Glucose 141(H) 74 - 99 mg/dL 06/13/2021 9:45 PM EST [facility] Comment:Accuracy of a glucos e result obtained from a capillary whole blood specimen relies upon adequate, non-compromised capillary blood flow. If the capillary glucose result is not consistent with the patient's clinical signs and symptoms, glucose testing should be repeated with either an arterial or venous sample on the glucometer or sent to the main labortory for testing. Comment 06/13/2021 9:45 PM EST [facility] Tail Ripper ID AdiliaLigia 06/13/2021 9:45 PM EST [facility] Device ID [id number] 06/13/2021 9:45 PM EST [facility] Specimen Type POC Capillary 06/13/2021 9:45 PM EST [facility] Blood Capillary blood specimen / Unknown 06/13/2021 9:34 PM EST 06/13/2021 9:45 PM EST Jose Spear MD LAB POINT OF CARE TEST DOCKED DEVICE UNSOLICITED RESULTS Final Result Performing Organization Address [facility] Co de Phone Number [facility] [address] [place] [address] * POCT glucose meter (06/13/2021 4:54 AM EST) [facility] POCT Glucose 78 74 - 99 mg/dL 06/13/2021 7:40 AM EST [facility] Comment:Accuracy of a glucos e result obtained from a capillary whole blood specimen relies upon adequate, non-compromised capillary blood flow. If the capillary glucose result is not consistent with the patient's clinical signs and symptoms, glucose testing should be repeated with either an arterial or venous sample on the glucometer or sent to the main labortory for testing. Comment 06/13/2021 7:40 AM EST [facility] Tail Ripper ID Kristin Hayward 06/13/2021 7:40 AM EST [facility] Device ID [id number] 06/13/2021 7:40 AM EST [facility] Specimen Type POC Venous 06/13/2021 7:40 AM EST [facility] Blood Venous blood specimen / Unknown 06/13/2021 4:54 AM EST 06/13/2021 7:40 AM EST Jose Spear MD LAB POINT OF CARE TEST DOCKED DEVICE UNSOLICITED RESULTS Final Result Performing Organization Address [facility] de Phone Number [facility] [address] [place] [address] * (ABNORMAL) C-reactive protein (06/13/2021 4:41 AM EST) CRP, Plasma 15.4(H) <=8.0 mg/L 06/13/2021 5:28 AM EST [facility] Blood Venous blood specimen / Unknown Venipuncture / Unknown 06/13/2021 4:41 AM EST 06/13/2021 4:52 AM EST Narrative [facility] - 06/13/2021 5:28 AM EST This CRP test is appropriate for assessment of infection, systemic inflammation and/or tissue injury. To assess cardiovascular disease risk order high sensitivity CRP (CRPH). Ne Cruz APRN, DNP LAB BLOOD ORD ERABLES Final Result Performing Organization Address [facility] de Phone Number [facility] [address] [place] [address] * (ABNORMAL) Renal function panel (06/13/2021 4:41 AM EST) Glucose, Plasma 94 74 - 99 mg/dL 06/13/2021 5:28 AM EST [facility] BUN, Plasma 19 7 - 21 mg/dL 06/13/2021 5:28 AM EST [facility] Creatinine, Plasma 0.66(L) 0.80 - 1.30 mg/dL 06/13/2021 5:28 AM EST [facility] BUN/Creatinine Ratio 29 06/13/2021 5:28 AM EST [facility] Sodium, Plasma 141 136 - 145 mmol/L 06/13/2021 5:28 AM EST [facility] Potassium, Plasma 4.1 3.7 - 4.8 mmol/L 06/13/2021 5:28 AM EST [facility] Chloride, Plasma 103 97 - 107 mmol/L 06/13/2021 5:28 AM EST [facility] CO2, Plasma 27 22 - 29 mmol/L 06/13/2021 5:28 AM EST [facility] Anion Gap 11 6 - 16 mmol/L 06/13/2021 5:28 AM EST [facility] Total Calcium, Plasma 8.9 8.9 - 10.2 mg/dL 06/13/2021 5:28 AM EST [facility] Phosphorus, Plasma 3.9 2.5 - 4.5 mg/dL 06/13/2021 5:28 AM EST [facility] Albumin, Plasma 3.7 3.5 - 5.2 g/dL 06/13/2021 5:28 AM EST [facility] eGFR >60 >60 mL/min/1.7 3m*2 06/13/2021 5:28 AM EST [facility] Comment:eGFR = estimated GFR ; eGFR units = mL/min/1.73 sq meters Chronic Kidney Disease is considered if eGFR <60 mL/min/1.73 sq meters Kidney failure is considered if eGFR is <15 mL/min/1.73 sq meters. eGFR assumes steady state plasma creatinine concentration; not applicable if renal function is rapidly changing or patient is on dialysis. eGFR, if AFR/AM >60 >60 mL/min/1.7 3m*2 06/13/2021 5:28 AM EST [facility] Comment:eGFR = estimated GFR [...] blood specimen / Unknown Venipuncture / Unknown 06/13/2021 4:41 AM EST 06/13/2021 4:52 AM EST us Ne Cruz SENIOR MICROSTRATEGY DEVELOPER, DNP LAB BLOOD ORD ERABLES Final Result [facility] [address] [place] [address] * (ABNORMAL) CBC and Differential (06/13/2021 4:41 AM EST) WBC Count 0.71(LL) 3.70 - 10.30 10*3/uL LAB HEMATOLOGY METHOD 06/13/2021 6:11 AM EST [facility] RBC Count 2.97(L) 4.60 - 6.10 10*6/uL LAB HEMATOLOGY METHOD 06/13/2021 6:11 AM EST [facility] HGB 9.7(L) 13.7 - 17.5 g/dL LAB HEMATOLOGY METHOD 06/13/2021 6:11 AM EST [facility] HCT 28.4(L) 40.0 - 51.0 % LAB HEMATOLOGY METHOD 06/13/2021 6:11 AM EST [facility] Platelet Count 26(L) 155 - 369 10*3/uL LAB HEMATOLOGY METHOD 06/13/2021 6:11 AM EST [facility] MCV 96 79 - 98 fL LAB HEMATOLOGY METHOD 06/13/2021 6:11 AM EST [facility] MCH 32.7(H) 26.0 - 32.0 pg LAB HEMATOLOGY METHOD 06/13/2021 6:11 AM EST [facility] MCHC 34.2 30.7 - 35.5 g/dL LAB HEMATOLOGY METHOD 06/13/2021 6:11 AM EST [facility] RDW 14.8(H) 11.5 - 14.5 % LAB HEMATOLOGY METHOD 06/13/2021 6:11 AM EST [facility] MPV 9.2 8.8 - 12.5 fL LAB HEMATOLOGY METHOD 06/13/2021 6:11 AM EST [facility] Comment:Not Measured nRBC 0.0 <=0.0 per 100 WBCs LAB HEMATOLOGY METHOD 06/13/2021 6:11 AM EST [facility] Neutrophils % 66.0 % LAB HEMATOLOGY METHOD 06/13/2021 6:11 AM EST [facility] Lymphocytes % 20.0 % LAB HEMATOLOGY METHOD 06/13/2021 6:11 AM EST [facility] Monocytes % 14.0 % LAB HEMATOLOGY METHOD 06/13/2021 6:11 AM EST [facility] Eosinophils % 0.0 % LAB HEMATOLOGY METHOD 06/13/2021 6:11 AM EST [facility] Basophils % 0.0 % LAB HEMATOLOGY METHOD 06/13/2021 6:11 AM EST [facility] Immature Granulocytes % 0.0 % LAB HEMATOLOGY METHOD 06/13/2021 6:11 AM EST [facility] Neutrophils Absolute 0.47(LL) 1.60 - 6.10 10*3/uL LAB HEMATOLOGY METHOD 06/13/2021 6:11 AM EST [facility] Lymphocytes Absolute 0.14(L) 1.20 - 3.90 10*3/uL LAB HEMATOLOGY METHOD 06/13/2021 6:11 AM EST [facility] Monocytes Absolute 0.10(L) 0.30 - 0.90 10*3/uL LAB HEMATOLOGY METHOD 06/13/2021 6:11 AM EST [facility] Eosinophils Absolute 0.00 0.00 - 0.50 10*3/uL LAB HEMATOLOGY METHOD 06/13/2021 6:11 AM EST [facility] Basophils Absolute 0.00 0.00 - 0.10 10*3/uL LAB HEMATOLOGY METHOD 06/13/2021 6:11 AM EST [facility] Immature Granulocytes Absolute 0.00 0.00 - 0.06 10*3/uL LAB HEMATOLOGY METHOD 06/13/2021 6:11 AM EST [facility] Blood Venous blood specimen / Unknown Venipuncture / Unknown 06/13/2021 4:41 AM EST 06/13/2021 4:54 AM EST Narrative [facility] - 06/13/2021 6:11 AM EST Therapeutic decision making should be based on absolute values, rather than percentages. Ne Cruz APRN, DNP LAB BLOOD ORD ERABLES Final Result [facility] [address] [place] [address] * POCT glucose meter (06/13/2021 12:24 AM EST) [facility] POCT Glucose 97 74 - 99 mg/dL 06/13/2021 3:30 AM EST [facility] Comment:Accuracy of a glucos e result obtained from a capillary whole blood specimen relies upon adequate, non-compromised capillary blood flow. If the capillary glucose result is not consistent with the patient's clinical signs and symptoms, glucose testing should be repeated with either an arterial or venous sample on the glucometer or sent to the main labortory for testing. Comment 06/13/2021 3:30 AM EST [facility] Tail Ripper ID Kristin Hayward 06/13/2021 3:30 AM EST [facility] Device ID [id number] 06/13/2021 3:30 AM EST [facility] Specimen Type POC Capillary 06/13/2021 3:30 AM EST [facility] Blood Capillary blood specimen / Unknown 06/13/2021 12:24 AM EST 06/13/2021 3:30 AM EST us Karan Deleon MD LAB POINT OF CARE TE ST DOCKED DEVICE UNSOLICITED RESULTS Final Result Performing Organization Address City/State/[facility] de Phone Number [facility] [address] [place], [place] [id number] * Transfuse platelets (06/12/2021 6:27 PM EST) us Dee HERZOG BLOOD TRANSFUSION ORDERABLES Fin al Result * Transfuse platelets: 1 Units (06/12/2021 6:27 PM EST) us Dee HERZOG BLOOD TRANSFUSION ORDERABLES Fin al Result * POCT glucose meter (06/12/2021 6:10 PM EST) [facility] POCT Glucose 98 74 - 99 mg/dL 06/12/2021 10:05 PM EST [facility] Comment:Accuracy of a glucos e result obtained from a capillary whole blood specimen relies upon adequate, non-compromised capillary blood flow. If the capillary glucose result is not consistent with the patient's clinical signs and symptoms, glucose testing should be repeated with either an arterial or venous sample on the glucometer or sent to the main labortory for testing. Comment 06/12/2021 10:05 PM EST [facility] Tail Ripper ID Arlyn Barber 06/12/2021 10:05 PM EST [facility] Device ID [id number] 06/12/2021 10:05 PM EST [facility] Specimen Type POC Capillary 06/12/2021 10:05 PM EST [facility] Blood Capillary blood specimen / Unknown 06/12/2021 6:10 PM EST 06/12/2021 10:05 PM EST us Karan Deleon MD LAB POINT OF CARE TE ST DOCKED DEVICE UNSOLICITED RESULTS Final Result [facility] [address] [place] [address] * CT Angio Pulmonary Embolism (06/12/2021 2:03 PM EST) Anatomical Region Laterality Modality Chest Computed Tomogra phy Impressions 06/12/2021 2:57 PM EST No pulmonary embolism. Bibasilar aspiration. Stable postsurgical changes of right upper lobe wedge resection and scarring throughout the right upper, right middle, and left lower lobes. CRITICAL RESULT: ?? No. COMMUNICATION: Per this written report. Approved by Anibal Joshua on 06/12/2021 2:40 PM By electronically signing this report, I, the attending physician, attest that I have personally reviewed the images/data for the above examination(s) and agree with the final edited report. Dictated by Anibal Joshua on 06/12/2021 2:40 PM Signed by Julio Schaefer on 06/12/2021 2:57 PM Narrative 06/12/2021 2:57 PM EST FExam/Procedure: CT ANGIO PULMONARY EMBOLISM ordered by DEE RG, [id number] CLINICAL INDICATION: increasing sob, h/o laryngeal cancer TECHNIQUE: Imaging of the chest was performed from thoracic inlet through upper abdomen, using spiral technique, following administration of IV contrast, Omnipaque 350, 90 mL per the pulmonary angiogram protocol. In addition, 3D images were created and reviewed. TOTAL DLP (Dose-Length Product): 973 mGy*cm. Please note: The reported value represents the total of one or more individual components during the CT acquisition on this date and at this time, and as such, the same value may appear in more than one CT report depending on the interpreting/reporting physicians. COMPARISON: CT chest 05/08/2021 FINDINGS: Pulmonary Arteries/Vessels: No pulmonary embolism. Right Heart Strain: No evidence of right heart strain. Pleural/Pericardial space: No pneumothorax. ??No pleural effusions. ??No pericardial effusion. Lymph Nodes: No lymphadenopathy within the chest. Calcified left hilar lymph nodes. Lungs: Tracheostomy tube in place. Postsurgical changes of right upper lobe wedge resection. Bibasilar endobronchial debris with mild bronchial wall thickening, groundglass opacities, and minimal basilar consolidation, right greater than left, compatible with aspiration. Stable scarring in the right upper lobe, right middle lobe, and left lower lobe. Mediastinum: Left chest wall Port-A-Cath with the tip at the superior cavoatrial junction. Coronary artery calcifications. Patulous esophagus. Chest wall: No chest wall hematoma or contusion. Redemonstration of multiple venous collaterals within the right chest. Bones: No acute fracture within the chest. Upper Abdomen: Limited imaging of the upper abdomen is unremarkable. Procedure Note Julio Schaefer MD - 06/12/2021 FExam/Procedure: CT ANGIO PULMONARY EMBOLISM ordered by DEE RG,[id number] CLINICAL INDICATION: increasing sob, h/o laryngeal cancer TECHNIQUE: Imaging of the chest was performed from thoracic inlet through upperabdomen, using spiral technique, following administration of IV contrast,Omnipaque 350, 90 mL per the pulmonary angiogram protocol. In addition, 3Dimages were created and reviewed. TOTAL DLP (Dose-Length Product): 973 mGy*cm. Please note: The reportedvalue represents the total of one or more individual components during theCT acquisition on this date and at this time, and as such, the same valuemay appear in more than one CT report depending on theinterpreting/reporting physicians. COMPARISON: CT chest 05/08/2021 FINDINGS: Pulmonary Arteries/Vessels: No pulmonary embolism. Right Heart Strain: No evidence of right heart strain. Pleural/Pericardial space: No pneumothorax. No pleural effusions. Nopericardial effusion. Lymph Nodes: No lymphadenopathy within the chest. Calcified left hilarlymph nodes. Lungs: Tracheostomy tube in place. Postsurgical changes of right upperlobe wedge resection. Bibasilar endobronchial debris with mild bronchialwall thickening, groundglass opacities, and minimal basilar consolidation,right greater than left, compatible with aspiration. Stable scarring inthe right upper lobe, right middle lobe, and left lower lobe. Mediastinum: Left chest wall Port-A-Cath with the tip at the superiorcavoatrial junction. Coronary artery calcifications. Patulous esophagus. Chest wall: No chest wall hematoma or contusion. Redemonstration ofmultiple venous collaterals within the right chest. Bones: No acute fracture within the chest. Upper Abdomen: Limited imaging of the upper abdomen is unremarkable. IMPRESSION: No pulmonary embolism. Bibasilar aspiration. Stable postsurgical changes of right upper lobe wedge resection andscarring throughout the right upper, right middle, and left lower lobes. CRITICAL RESULT: No. COMMUNICATION: Per this written report. Approved by Anibal Joshua on 06/12/2021 2:40 PM By electronically signing this report, I, the attending physician, attestthat I have personally reviewed the images/data for the aboveexamination(s) and agree with the final edited report. Dictated by Anibal Joshua on 06/12/2021 2:40 PM Signed by Julio Schaefer on 06/12/2021 2:57 PM Dee HERZOG IMG CT PROCEDURES Final Result * CT Soft Tissue Neck w IV Contrast (06/12/2021 2:03 PM EST) Anatomical Region Laterality Modality Neck Computed Tomogra phy Impressions 06/12/2021 3:51 PM EST 1.Tracheostomy tube is missing. The subglottic trachea is patent. 2.Nonspecific increased abnormal thickening of the chatterjee of the neopharynx. This may be treatment related though tumor recurrence cannot be excluded. 3.Otherwise, unchanged postoperative appearance to the neck including laryngectomy. CRITICAL RESULT: No. COMMUNICATION: Per this written report. Dictated by Darlene Caicedo on 06/12/2021 3:02 PM Signed by Darlene Caicedo on 06/12/2021 3:51 PM Narrative 06/12/2021 3:51 PM EST FExam/Procedure: CT SOFT TISSUE NECK W IV CONTRAST ordered by DEE RG, [id number] CLINICAL INDICATION: Patient has increasing shortness of breath. Patient was a treated for recurrent stage IV gliotic cancer. Patient had total laryngectomy with limited neck dissection, ALT flap reconstruction with partial glossectomy. TECHNIQUE: Helical images were obtained through the neck, and reconstructed in the axial plane on bone and soft tissue algorithm at multiple slice thicknesses. Coronal and sagittal reformatted images were created. 90 mL of Omnipaque 300 were administered intravenously. Total DLP (Dose-Length Product): 973.15 mGy.cm. Please note: The reported value represents the total of one or more individual components during the CT acquisition on this date and at this time, and as such, the same value may appear in more than one CT report depending on the interpreting/reporting physicians. COMPARISON: CT of the neck dated May 08, 2021. FINDINGS: Diagnostic Quality: Adequate. Soft Tissues: No masses are present within the soft tissues of the neck. There are persistent to treatment related changes particularly of the anterior neck. Lymph Nodes: No significant cervical adenopathy is present. Pharynx/Larynx: The tracheostomy tube is not present. Has this been removed? Transesophageal puncture tube is still present. Patient has had a total laryngectomy. There is nonspecific increased is thickening of the chatterjee of the neopharynx. The abnormal wall thickening appears to have increased since the previous study and local recurrence of tumor cannot be excluded. Oral Cavity: No large masses are present within the oral cavity within the limitations of the study. Patient has had a right-sided hemiglossectomy with denervation changes. Parapharyngeal Space: No lesions are present within the parapharyngeal space. There are multiple surgical clips visible within the neck associated with the known flap. Salivary Glands: The parotid glands are normal in size without definite focal lesions.Patient has had surgical removal of bilateral submandibular glands. Thyroid: No focal thyroid lesions are present, within the limitations of the study. There appears to been partial resection of thyroid gland. What remains of the right and left thyroid lobes appear unchanged since the previous CT. Orbits/Paranasal Sinuses/Skull Base: Most of the orbits are not included on the current study. There is mild mucosal thickening within the sphenoid sinuses. The visualized paranasal sinuses are otherwise grossly clear. Within the skull base, there is no focal lesion or destructive process. Bones/Spine: There are degenerative changes of the spine. No bony destructive lesion is present. 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 This causes moderately severe central canal stenosis at C2-3 and C3-4. Thoracic Inlet and Lung Apices: Within the limitations of the study, no large masses are present at the thoracic inlet. There is right upper lobe subsegmental atelectasis. This may be secondary to radiation therapy. Please see the separate report for the chest CT scan for discussion of intrathoracic findings. Other Findings: None. Procedure Note Caicedo, Darlene, MD - 06/12/2021 FExam/Procedure: CT SOFT TISSUE NECK W IV CONTRAST ordered by DEE FERREIRA, [id number] CLINICAL INDICATION: Patient has increasing shortness of breath. Patient was a treated forrecurrent stage IV gliotic cancer. Patient had total laryngectomy withlimited neck dissection, ALT flap reconstruction with partialglossectomy. TECHNIQUE: Helical images were obtained through the neck, and reconstructed in theaxial plane on bone and soft tissue algorithm at multiple slicethicknesses. Coronal and sagittal reformatted images were created. 90 mLof Omnipaque 300 were administered intravenously. Total DLP (Dose-Length Product): 973.15 mGy.cm. Please note: The reportedvalue represents the total of one or more individual components during theCT acquisition on this date and at this time, and as such, the same valuemay appear in more than one CT report depending on theinterpreting/reporting physicians. COMPARISON: CT of the neck dated May 08, 2021. FINDINGS: Diagnostic Quality: Adequate. Soft Tissues: No masses are present within the soft tissues of the neck.There are persistent to treatment related changes particularly of theanterior neck. Lymph Nodes: No significant cervical adenopathy is present. Pharynx/Larynx: The tracheostomy tube is not present. Has this beenremoved? Transesophageal puncture tube is still present. Patient has had a total laryngectomy. There is nonspecific increased isthickening of the chatterjee of the neopharynx. The abnormal wall thickeningappears to have increased since the previous study and local recurrence oftumor cannot be excluded. Oral Cavity: No large masses are present within the oral cavity within thelimitations of the study. Patient has had a right-sided hemiglossectomywith denervation changes. Parapharyngeal Space: No lesions are present within the parapharyngealspace. There are multiple surgical clips visible within the neckassociated with the known flap. Salivary Glands: The parotid glands are normal in size without definitefocal lesions.Patient has had surgical removal of bilateral submandibularglands. Thyroid: No focal thyroid lesions are present, within the limitations ofthe study. There appears to been partial resection of thyroid gland. Whatremains of the right and left thyroid lobes appear unchanged since theprevious CT. Orbits/Paranasal Sinuses/Skull Base: Most of the orbits are not includedon the current study. There is mild mucosal thickening within the sphenoidsinuses. The visualized paranasal sinuses are otherwise grossly clear.Within the skull base, there is no focal lesion or destructive process. Bones/Spine: There are degenerative changes of the spine. No bonydestructive lesion is present. There is extensive ossification ofposterior longitudinal ligament. This causes moderately severe centralcanal stenosis at C2-3 and C3-4. Thoracic Inlet and Lung Apices: Within the limitations of the study, nolarge masses are present at the thoracic inlet. There is right upper lobesubsegmental atelectasis. This may be secondary to radiation therapy. Please see the separate report for the chest CT scan for discussion ofintrathoracic findings. Other Findings: None. IMPRESSION: 1.Tracheostomy tube is missing. The subglottic trachea is patent. 2.Nonspecific increased abnormal thickening of the chatterjee of theneopharynx. This may be treatment related though tumor recurrence cannotbe excluded. 3.Otherwise, unchanged postoperative appearance to the neck includinglaryngectomy. CRITICAL RESULT: No. COMMUNICATION: Per this written report. Dictated by Darlene Caicedo on 06/12/2021 3:02 PM Signed by Darlene Caicedo on 06/12/2021 3:51 PM Dee [facility] [place] PROCEDURES Final Result * Prothrombin Time/INR (06/12/2021 1:41 PM EST) Prothrombin Time 12.8 12.0 - 14.3 sec LAB COAGULATION METHOD 06/12/2021 2:50 PM EST [employer] LAB INR 1.0 0.9 - 1.1 LAB COAGULATION METHOD 06/12/2021 2:50 PM EST [facility] [facility] LAB Blood Venous blood specimen / Unknown Venipuncture / Unknown 06/12/2021 1:41 PM EST 06/12/2021 1:59 PM EST Narrative [employer] [facility] - 06/12/2021 2:50 PM EST OPTIMAL INR RANGES FOR PATIENT ON ORAL ANTICOAGULANT THERAPY Prevention of venous thromboembolism ?INR 2.0 to 3.0 In patients with heart disease: Atrial fibrillation ?INR 2.0 to 3.0 Valvular heart disease ? INR 2.0 to 3.0 Tissue heart valves ?INR 2.0 to 3.0 Mechanical prosthetic valves ? INR 2.5 to 3.5 Prevention of recurrent SC ? INR 2.5 to 3.5 us Ne Litzy Juani [place] SENIOR MICROSTRATEGY DEVELOPER, DNP LAB BLOOD ORD ERABLES Final Result [facility] [address] [place] [address] * XR Chest 1 View (06/12/2021 1:01 PM EST) Anatomical Region Laterality Modality Chest Digital Radiogra phy Impressions 06/12/2021 1:13 PM EST No acute disease CRITICAL RESULT: ?? No. COMMUNICATION: Per this written report. Dictated by Julio Schaefer on 06/12/2021 1:12 PM Signed by Julio Schaefer on 06/12/2021 1:13 PM Narrative 06/12/2021 1:13 PM EST FExam/Procedure: XR CHEST 1 VIEW ordered by DEE RG, [id number] CLINICAL INDICATION: Dyspnea TECHNIQUE: XR CHEST 1 VIEW COMPARISON: May 08, 2021 FINDINGS: Unchanged left chest wall port. No pneumothorax significant effusion or focal opacity. Cardia mediastinal silhouette within normal limits. Procedure Note Julio Schaefer MD - 06/12/2021 FExam/Procedure: XR CHEST 1 VIEW ordered by DEE RG, [id number] CLINICAL INDICATION: Dyspnea TECHNIQUE: XR CHEST 1 VIEW COMPARISON: May 08, 2021 FINDINGS: Unchanged left chest wall port. No pneumothorax significant effusion orfocal opacity. Cardia mediastinal silhouette within normal limits. IMPRESSION: No acute disease CRITICAL RESULT: No. COMMUNICATION: Per this written report. Dictated by Julio Schaefer on 06/12/2021 1:12 PM Signed by Julio Schaefer on 06/12/2021 1:13 PM Dee HERZOG IMG XR PROCEDURES Final Result * EKG x1 in 30 min (06/12/2021 12:58 PM EST) EKG DIAGNOSIS CLASS Borderline Abnormal MUSE ECG Ventricular Rate 55 BPM MUSE ECG Atrial Rate 55 BPM MUSE ECG DE Interval 166 ms MUSE ECG QRSD Interval 82 ms MUSE ECG QT Interval 464 ms MUSE ECG QTC Interval 443 ms MUSE ECG P [place] 59 degrees MUSE ECG R [place] 55 degrees MUSE ECG T Wave [place] 35 degrees MUSE ECG Diagnosis Sinus bradycardia MUSE ECG Diagnosis Otherwise normal ECG MUSE ECG Diagnosis Confirmed by Ash Edmonds ([id number]) on 06/13/2021 5:39:21 AM MUSE ECG 06/12/2021 12:5 8 PM EST 06/13/2021 5:39 AM EST Dee HERZOG ECG ORDERABLES Final Result MUSE ECG * Type and screen (06/12/2021 12:53 PM EST) ABO/Rh A Positive 06/12/2021 12:32 PM EST BLOOD BANK Antibody Screen Negative 06/12/2021 12:32 PM EST BLOOD BANK Blood Venous blood specimen / Unknown Venipuncture / Unknown 06/12/2021 12:53 PM EST 06/12/2021 1:00 PM EST Dee HERZOG LAB BLOOD BANK TEST ORDERABLES F inal Result BLOOD BANK [address] [place] [address], * Blood Culture (Aerobic/Anaerobet Set) (06/12/2021 12:53 PM EST) Culture No growth at day 5 ZEKE 06/17/2021 2:02 PM EST HEALTHCARE LAB Blood Structure of left hand / Unknown Venipuncture / Unknown 06/12/2021 12:53 PM EST 06/12/2021 1:48 PM EST us Dee HERZOG LAB MICROBIOLOGY - GENERAL ORDER PILLO Final Result Performing Organization Address [facility] de Phone Number HEALTHCARE LAB [address] [place] [address] * Blood Culture (Aerobic/Anaerobet Set) (06/12/2021 12:53 PM EST) Culture No growth at day 5 ZEKE 06/17/2021 2:02 PM EST HEALTH[facility]ARE LAB Blood Structure of right wrist region / Unknown Venipuncture / Unknown 06/12/2021 12:53 PM EST 06/12/2021 1:49 PM EST us Dee HERZOG LAB MICROBIOLOGY - GENERAL ORDER PILLO Final Result Performing Organization Address [facility] Phone Number HEALTHCARE LAB [address] [place] [address] * HIV 1 & 2 Antibody/Antigen Screen (06/12/2021 12:53 PM EST) HIV 1 & 2 Antibody/Anti gen Screen Nonreactive Nonreactive 06/12/2021 2:03 PM EST [facility]ARE LAB Blood Venous blood specimen / Unknown Venipuncture / Unknown 06/12/2021 12:53 PM EST 06/12/2021 1:07 PM EST us Berta Mohan MD LAB BLOOD ORDERABLES Final Res ult Performing Organization Address City/[facility] Co de Phone Number HEALTHCARE LAB [address] [place] [address] * Anderson Hepatitis C Antibody (06/12/2021 12:53 PM EST) Hepatitis C Antibody Negative Negative 06/12/2021 2:02 PM EST [facility] Blood Venous blood specimen / Unknown Venipuncture / Unknown 06/12/2021 12:53 PM EST 06/12/2021 1:07 PM EST us Berta Mohan MD LAB BLOOD ORDERABLES Final Res ult Performing Organization Address City/[facility]/ZIP Co de Phone Number HEALTHCARE LAB [address] [place] [address] * Prepare Leukocyte Reduced Platelets: 1 Units (06/12/2021 12:32 PM EST) Product Code [id number] CH BLOO D BANK Dispense Status Transfused BLOOD BANK Blood Expiration Date BLOOD BANK Unit Number [id number] CH B LOOD BANK Product Blood Type 6200 BLOOD BANK Blood Type A+ CH BLOOD BANK Blood Venous blood specimen / Unknown Dee HERZOG BLOOD BANK PRODUCT ORDERABLES Fi nal Result Performing Organization Address [facility] Co de Phone Number BLOOD BANK [address] [place] [address], * (ABNORMAL) C-reactive protein (06/12/2021 10:36 AM EST) CRP, Plasma 16.0(H) <=8.0 mg/L 06/12/2021 2:44 PM EST HEALTHCARE LAB Blood Venous blood specimen / Unknown Venipuncture / Unknown 06/12/2021 10:36 AM EST 06/12/2021 11:00 AM EST Narrative HEALTHCARE LAB - 06/12/2021 2:44 PM EST This CRP test is appropriate for assessment of infection, systemic inflammation and/or tissue injury. To assess cardiovascular disease risk order high sensitivity CRP (CRPH). Ne Cruz SENIOR MICROSTRATEGY DEVELOPER, DNP LAB BLOOD ORD ERABLES Final Result Performing Organization Address City/[facility] Co de Phone Number HEALTHCARE LAB [address] [place] [address] * Procalcitonin (06/12/2021 10:36 AM EST) Procalcitonin, Plasma 0.06 <0.09 ng/mL 06/12/2021 2:44 PM EST HEALTH[facility]ARE LAB Blood Venous blood specimen / Unknown Venipuncture / Unknown 06/12/2021 10:36 AM EST 06/12/2021 11:00 AM EST Narrative HEALTHCARE LAB - 06/12/2021 2:44 PM EST Procalcitonin concentrations in healthy individuals are <0.09 ng/mL. Published data support the following interpretive risk assessment: An elevated procalcitonin result does not always indicate sepsis. Various non-infectious conditions are known to increase procalcitonin. Results should be considered in the context of clinical symptoms and other laboratory tests. Procalcitonin >2.0 ng/mL: Concentrations >2.0 ng/mL on the first day of ICU admission are associated with a higher risk of progression to severe sepsis and/or septic shock. The change in PCT over time may help predict 28 day mortality risk. Please consult [email or web address]-rvf-vtllienydg.[employer] for more information. Test performed at [facility]. Ne Cruz APRN, [place] LAB BLOOD ORD ERABLES Final Result HEALTHCARE LAB [address] [place] [id number] documented in this encounter Visit Diagnoses Diagnosis Acute COVID-19- Primary Acute COVID-19 Other neutropenia (CMS/HCC) Other neutropenia Thrombocytopenia (CMS/HCC) Unspecified thrombocytopenia 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, unspecified site Dysphagia causing pulmonary aspiration with swallowing Other dysphagia Chronic GERD Diabetes mellitus (CMS/HCC) Type II or unspecified type diabetes mellitus without mention of complication, not stated as uncontrolled Hypertension Unspecified essential hypertension 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 Neoplasm related pain Neoplasm related pain (acute) (chronic) documented in this encounter Admitting Diagnoses Diagnosis Acute COVID-19 documented in this encounter Administered Medications Inactive Administered Medications - up to 3 most recent administrations Medication Order MAR Action Action Date Dose Rate Site albuterol 108 (90 Base) MCG/ACT inhaler 2 puff 2 puff, Inhalation, Every 4 hours PRN, Starting on Nenita 06/12/21 at 1425, Until Wed06/16/21 at 1802, Routine, wheezing, shortness of breath ALPRAZolam (Xanax) tablet 1 mg 1 mg, Oral, 2 times daily PRN, Starting on Wed06/13/21 at 1509, Until Wed06/16/21 at 1802, Routine, anxiety Given 06/15/2021 9:51 PM EST 1 mg amLODIPine (Norvasc) tablet 10 mg 10 mg, Oral, Daily, First dose on Nenita 06/12/21 at 1930, Until Discontinued, Routine Given 06/16/2021 8:51 AM EST 10 mg Given 06/15/2021 8:22 AM EST 10 mg Given 06/14/2021 10:10 AM EST 10 mg cefepime (Maxipime) 2 g in sodium chloride 0.9% 100 mL IVPB (Mini-Bag Plus) 2 g, Intravenous, Once, 1 dose, On Nenita 06/12/21 at 1235, STAT New Bag 06/12/2021 1:30 PM EST 2 g 36 .7 mL/hr cloNIDine (Catapres) tablet 0.1 mg 0.1 mg, Oral, Every 12 hours PRN, Starting on Wed06/13/21 at 0816, Until 06/14/21 at 1319, Routine, BP > 160/ 100, please notify first before giving. Given 06/14/2021 12:14 PM EST 0.1 mg cloNIDine (Catapres) tablet 0.1 mg 0.1 mg, Oral, Every 8 hours, First dose (after last modification) on 06/14/21 at 2015, Until Discontinued, Routine Given 06/15/2021 12:30 PM EST 0.1 mg Given 06/15/2021 4:39 AM EST 0.1 mg Given 06/14/2021 8:46 PM EST 0.1 mg cloNIDine (Catapres) tablet 0.1 mg 0.1 mg, Oral, Every 8 hours PRN, Starting on 06/15/21 at 1300, Until Wed06/16/21 at 1802, Routine, SBP > 170 dexamethasone (Decadron) injection 6 mg 6 mg, Intravenous, Every 24 hours, First dose on Nenita 06/12/21 at 1510, Until Discontinued, Routine Given 06/13/2021 3:38 PM EST 6 mg Given 06/12/2021 3:52 PM EST 6 mg dexamethasone (Decadron) tablet 6 mg 6 mg, Oral, Daily, 8 doses, First dose on 06/15/21 at 0900, Last dose on 06/22/21 at 0900, Routine Given 06/16/2021 8:53 AM EST 6 mg Given 06/15/2021 8:20 AM EST 6 mg dextrose 10 % (D10W) bolus 125 mL 125 mL (12.5 g), Intravenous, Every 15 min PRN, Starting on Wed06/12/21 at 1425, Until Wed06/16/21 at 1802, Administer over 7.5 Minutes, Routine, POC BG 51 to 70 mg/dL dextrose 10 % (D10W) bolus 250 mL 250 mL (25 g), Intravenous, Every 15 min PRN, Starting on Nenita 06/12/21 at 1425, Until Wed06/16/21 at 1802, Administer over 15 Minutes, Routine, POC BG is less than or equal to 50 mg/dL dextrose 50 % solution 12.5 g 12.5 g, Intravenous, Every 15 min PRN, Starting on Wed06/12/21 at 1425, Until Wed06/16/21 at 1802, Routine, low blood sugar, POC BG 51 to 70 mg/dL dextrose 50 % solution 25 g 25 g, Intravenous, Every 15 min PRN, Starting on Wed06/12/21 at 1425, Until Wed06/16/21 at 1802, Routine, low blood sugar, POC BG is less than or equal to 50 mg/dL fentaNYL (Duragesic) 50 MCG/HR 1 patch 1 patch, Transdermal, Every 72 hours, First dose on Wed06/12/21 at 1515, Until Discontinued, Administer over 72 Hours, Routine Medication Applied 06/15/2021 4:22 PM EST 1 patch Left Arm Medication Applied 06/12/2021 3:52 PM EST 1 patch Right Arm gabapentin (Neurontin) 250 MG/5ML solution 600 mg 600 mg, Oral, 4 times daily, First dose on Wed06/13/21 at 1800, Until Discontinued Given 06/13/2021 9:40 PM EST 600 mg gabapentin (Neurontin) capsule 600 mg 600 mg, Oral, 4 times daily, First dose on Wed06/14/21 at 1400, Until Discontinued, Routine Given 06/16/2021 3:18 PM EST 600 mg Given 06/16/2021 8:52 AM EST 600 mg Given 06/15/2021 9:51 PM EST 600 mg glucagon (human recombinant) injection 1 mg 1 mg, Intramuscular, Every 15 min PRN, Starting on Wed06/12/21 at 1425, Until Wed06/16/21 at 1802, Routine, If patient NPO, lacks IV access, May Give IM and POC BG less than or equal to 70 mg/dL, glucose (Glutose) 40 % oral gel 15 g 15 g, Oral, Once as needed, 1 dose, Starting on Wed06/12/21 at 1425, Until Wed06/16/21 at 1802, Routine, POC BG 71 to 89 glucose (Glutose) 40 % oral gel 15 g 15 g, Oral, Every 15 min PRN, Starting on Wed06/12/21 at 1425, Until Wed06/16/21 at 1802, Routine, POC BG 51 to 70 glucose (Glutose) 40 % oral gel 30 g 30 g, Oral, Every 15 min PRN, Starting on Wed06/12/21 at 1425, Until Wed06/16/21 at 1802, Routine, low blood sugar, POC BG less than or equal to 50 hydroCHLOROthiazide (HYDRODiuril) tablet 25 mg 25 mg, Oral, Daily, First dose on Wed06/15/21 at 0900, Until Discontinued, Routine Given 06/16/2021 8:53 AM EST 25 mg Given 06/15/2021 8:22 AM EST 25 mg insulin regular (HumuLIN R,NovoLIN R) 100 units/mL injection - Correction - Standard Dose 0-5 Units, Subcutaneous, Every 6 hours scheduled, First dose on Wed06/12/21 at 1800, Until Discontinued, Routine iohexol (OMNIPaque) 350 MG/ML injection 100 mL 100 mL, Intravenous, Once in imaging, 1 dose, Starting on Wed06/12/21 at 1354, Until Wed06/12/21 at 1355, Routine, Imaging Protocol Orders Given 06/12/2021 1:55 PM EST 90 mL levothyroxine (Synthroid, Levoxyl) tablet 150 mcg 150 mcg, Oral, Daily before breakfast, First dose on 06/14/21 at 0730, Until Discontinued, Routine Given 06/16/2021 8:52 AM EST 150 mcg Given 06/15/2021 8:22 AM EST 150 mcg Given 06/14/2021 10:10 AM EST 150 mcg lisinopril tablet 10 mg 10 mg, Oral, Daily, First dose on Wed06/13/21 at 1100, Until Discontinued, Routine Given 06/14/2021 10:11 AM EST 10 mg Given 06/13/2021 10:32 AM EST 10 mg lisinopril tablet 20 mg 20 mg, Oral, Daily, First dose (after last modification) on Wed06/15/21 at 0900, Until Discontinued, Routine Given 06/16/2021 8:52 AM EST 20 mg Given 06/15/2021 8:22 AM EST 20 mg morphine PF 2 mg 2 mg, Intravenous, Every 4 hours PRN, Starting on Wed06/12/21 at 1503, Until Wed06/16/21 at 1802, Routine, severe pain naloxone (Narcan) injection 0.08 mg 0.08 mg, Intravenous, As needed, Starting on Wed06/12/21 at 1502, Until Wed06/16/21 at 1802, Routine, opioid reversal ondansetron (Zofran) injection 4 mg 4 mg, Intravenous, Every 6 hours PRN, Starting on Wed06/12/21 at 1426, Until Wed06/16/21 at 1802, Routine, nausea, vomiting Given 06/14/2021 10:10 AM EST 4 mg Given 06/13/2021 10:32 AM EST 4 mg Given 06/13/2021 5:22 AM EST 4 mg pantoprazole (Protonix) EC tablet 40 mg 40 mg, Oral, Daily, First dose on Wed06/15/21 at 0900, Until Discontinued, Routine Given 06/16/2021 8:53 AM EST 40 mg Given 06/15/2021 8:22 AM EST 40 mg pantoprazole (Protonix) injection 40 mg 40 mg, Intravenous, Daily, First dose on Wed06/12/21 at 1505, Until Discontinued, Routine Given 06/14/2021 10:1 0 AM EST 40 mg Given 06/13/2021 10:32 AM EST 40 mg Given 06/12/2021 3:53 PM EST 40 mg piperacillin-tazobactam (Zosyn) 3.375 g in sodium chloride 0.9% 100 mL IVPB (Mini-Bag Plus) 3.375 g, Intravenous, Every 6 hours, First dose on Wed06/12/21 at 1800, Until Discontinued, Routine New Bag 06/14/2021 12:13 PM EST 3.375 g 36.7 mL/hr New Bag 06/14/2021 5:04 AM EST 3.375 g 36.7 mL/hr New Bag 06/14/2021 1:46 AM EST 3.375 g 36.7 mL/hr polyethylene glycol (Miralax) packet 17 g 17 g, Oral, Daily PRN, Starting on Wed06/12/21 at 1426, Until Wed06/16/21 at 1802, Routine, constipation Povidone-Iodine 5 % swab solution 1 Swab Nasal, Daily, 5 doses, First dose on Wed06/12/21 at 1845, Last dose on Wed06/16/21 at 0900, Routine Given 06/16/2021 11:51 AM EST 1 Swab. Given 06/14/2021 10:11 AM EST 1 Swab. Given 06/13/2021 10:32 AM EST 1 Swab. remdesivir (Veklury) 100 mg in sodium chloride 0.9 % 250 mL IVPB 100 mg, Intravenous, Every 24 hours, 4 doses, First dose on Wed06/13/21 at 1510, Last dose on Wed06/16/21 at 1510, Routine New Bag 06/15/2021 2:10 PM EST 100 mg 500 mL /hr New 06/14/2021 4:01 PM EST 100 mg 500 mL/hr New 06/13/2021 3:38 PM EST 100 mg 500 mL/hr remdesivir (Veklury) 200 mg in sodium chloride 0.9 % 250 mL IVPB 200 mg, Intravenous, Once, 1 dose, On Wed06/12/21 at 1510, STAT 06/12/2021 3:30 PM EST 200 mg 500 mL/hr sodium chloride 0.9 % (NS) infusion 100 mL/hr, Intravenous, Continuous, Starting on Wed06/12/21 at 1505, Until Wed06/16/21 at 1802, Routine 06/16/2021 1:46 AM EST 100 mL/hr 100 mL /hr New Bag 06/15/2021 4:44 AM EST 100 mL/hr 100 mL/hr New Bag 06/13/2021 3:39 PM EST 100 mL/hr 100 mL/hr sodium chloride 0.9 % flush 10 mL 10 mL, Intravenous, Every 8 hours PRN, Starting on Nenita 06/12/21 at 1421, Until Wed06/16/21 at 1802, Routine, line care sodium chloride 0.9 % infusion - 1,000mL 1,000 mL, Intravenous, Once, 1 dose, On Nenita 06/12/21 at 1210, STAT New Bag 06/12/2021 1:04 PM EST 1,000 mL tamsulosin (Flomax) 24 hr capsule 0.4 mg 0.4 mg, Oral, Daily, First dose on Wed06/15/21 at 1315, Until Discontinued, Routine Given 06/16/2021 8:52 AM EST 0.4 mg Given 06/15/2021 4:21 PM EST 0.4 mg vancomycin IVPB 1500 mg in 250 mL NS 1,500 mg, Intravenous, Every 12 hours, First dose on Wed06/13/21 at 0400, Until Discontinued, at 193.3 mL/hr, Routine New Bag 06/14/2021 5:04 AM EST 1,500 mg 193.3 mL/hr New Bag 06/13/2021 5:46 PM EST 1,500 mg 193.3 mL/hr New Bag 06/13/2021 4:02 AM EST 1,500 mg 193.3 mL/hr vancomycin IVPB 2250 mg in 500 mL NS 2,250 mg (rounded from 2,232.5 mg = 25 mg/kg ? 89.3 kg), Intravenous, Once, 1 dose, On Nenita 06/12/21 at 1510, at 254.7 mL/hr, STAT New Bag 06/12/2021 4:13 PM EST 2,250 mg 254.7 mL/h r documented in this encounter Active and Recently Administered Medications Times are shown in EST. Scheduled Medication Order 06/14/2021 06/15/2021 06/16/2021 amLODIPine (Norvasc) tablet 10 mg 10 mg, Oral, Daily, First dose on Nenita 06/12/21 at 1930, Until Discontinued, Routine 1010 (Given - Provider: Daija Pena) 0822 (Given - Provider: Kenneth Munoz RN) 0851 (Given - Provider: Jamaica Richardson) cloNIDine (Catapres) tablet 0.1 mg (CANCELED) 0.1 mg, Oral, Every 8 hours, First dose (after last modification) on 06/14/21 at 2015, Until Discontinued, Routine 2046 (Given - Provider: Kesha Richmond LPN) 0439 (Given - Provider: Eliel Vance)1230 (Given - Provider: Kenneth Munoz, RN) dexamethasone (Decadron) tablet 6 mg 6 mg, Oral, Daily, 8 doses, First dose on 06/15/21 at 0900, Last dose on 06/22/21 at 0900, Routine 0820 (Given - Provider: Kenneth Munoz RN) 0853 (Given - Provider: Jamaica Richardson) fentaNYL (Duragesic) 50 MCG/HR 1 patch 1 patch, Transdermal, Every 72 hours, First dose on Nenita 06/12/21 at 1515, Until Discontinued, Administer over 72 Hours, Routine 1621 (Medication Removed - Provider: Kenneth Munoz RN - Comment: Right chest)1622 (Medication Applied - Provider: Kenneth Munoz, RN) 1602 (Due: Medication Removed - Provider: Automatic Discharge Provider - Comment: Time automatically adjusted from order being discontinued) gabapentin (Neurontin) capsule 600 mg 600 mg, Oral, 4 times daily, First dose on 06/14/21 at 1400, Until Discontinued, Routine 1601 (Given - Provider: Daija Pena)1703 (Not Given - Provider: Daija Pena - Reason: Other)2200 (Given - Provider: Tanika Merlos RN - Comment: medication given by Cony Richmond LPN, med was scanned, did not document in the eMar) 0821 (Given - Provider: Kenneth Munoz RN)1410 (Given - Provider: Kenneth Munoz, RN)1835 (Given - Provider: Kenneth Munoz, RN)2151 (Given - Provider: Kesha Richmond LPN) 0852 (Given - Provider: Jamaica Richardson)1518 (Given - Provider: Jamaica Richardson)1800 (Canceled Entry - Provider: Automatic Discharge Provider - Comment: Automatically canceled at discontinue of medication order) hydroCHLOROthiazide (HYDRODiuril) tablet 25 mg 25 mg, Oral, Daily, First dose on 06/15/21 at 0900, Until Discontinued, Routine 0822 (Given - Provider: Kenneth Munoz RN) 0853 (Given - Provider: Jamaica Richardson) insulin regular (HumuLIN R,NovoLIN R) 100 units/mL injection - Correction - Standard Dose 0-5 Units, Subcutaneous, Every 6 hours scheduled, First dose on Nenita 06/12/21 at 1800, Until Discontinued, Routine 0022 (Not Given - Provider: Mary Varela - Reason: Order parameters not met)0605 (Not Given - Provider: Mary Varela - Reason: Order parameters not met)1214 (Not Given - Provider: Daija Pena - Reason: Order parameters not met)1703 (Not Given - Provider: Daija Pena - Reason: Order parameters not met - Comment: fs 83)2320 (Not Given - Provider: Tanika Merlos RN - Reason: Order parameters not met) 0634 (Not Given - Provider: Tanika Merlos RN - Reason: Order parameters not met)1410 (Not Given - Provider: Kenneth Munoz RN - Reason: Order parameters not met)1835 (Not Given - Provider: Kenneth Munoz RN - Reason: Order parameters not met) 0030 (Not Given - Provider: Kesha Richmond LPN - Reason: Order parameters not met)0612 (Not Given - Provider: Kesha Richmond LPN - Reason: Order parameters not met)1150 (Not Given - Provider: Jamaica Richardson - Reason: See Provider Order)1800 (Canceled Entry - Provider: Automatic Discharge Provider - Comment: Automatically canceled at discontinue of medication order) levothyroxine (Synthroid, Levoxyl) tablet 150 mcg 150 mcg, Oral, Daily before breakfast, First dose on 06/14/21 at 0730, Until Discontinued, Routine 1010 (Given - Provider: Daija Pena) 0822 (Given - Provider: Kenneth Munoz RN) 0852 (Given - Provider: Jamaica Richardson) lisinopril tablet 10 mg (CANCELED) 10 mg, Oral, Daily, First dose on Wed06/13/21 at 1100, Until Discontinued, Routine 1011 (Given - Provider: Daija Pena) lisinopril tablet 20 mg 20 mg, Oral, Daily, First dose (after last modification) on Wed06/15/21 at 0900, Until Discontinued, Routine 0822 (Given - Provider: Kenneth Munoz RN) 0852 (Given - Provider: Jamaica Richardson) pantoprazole (Protonix) EC tablet 40 mg 40 mg, Oral, Daily, First dose on 06/15/21 at 0900, Until Discontinued, Routine 0822 (Given - Provider: Kenneth Munoz RN) 0853 (Given - Provider: Jamaica Richardson) pantoprazole (Protonix) injection 40 mg (CANCELED) 40 mg, Intravenous, Daily, First dose on Nenita 06/12/21 at 1505, Until Discontinued, Routine 1010 (Given - Provider: Daija Pena) piperacillin-tazobact am (Zosyn) 3.375 g in sodium chloride 0.9% 100 mL IVPB (Mini-Bag Plus) (CANCELED) 3.375 g, Intravenous, Every 6 hours, First dose on Wed06/12/21 at 1800, Until Discontinued, Routine 0146 (New Bag - Provider: Mary Varela)0504 (New Bag - Provider: Mary Varela)1213 (New Bag - Provider: Daija Pena) Povidone-Iodine 5 % swab solution 1 Swab Nasal, Daily, 5 doses, First dose on Wed06/12/21 at 1845, Last dose on Wed06/16/21 at 0900, Routine 1011 (Given - Provider: Daija Pena) 0830 (Not Given - Provider: Kenneth Munoz RN - Reason: Patient/family refused) 1151 (Given - Provider: Jamaica Richardson) remdesivir (Veklury) 100 mg in sodium chloride 0.9 % 250 mL IVPB(Linked Group 1) 100 mg, Intravenous, Every 24 hours, 4 doses, First dose on Wed06/13/21 at 1510, Last dose on Wed06/16/21 at 1510, Routine 1601 (New Bag - Provider: Daija Pena) 1410 (New Bag - Provider: Kenneth Munoz, RN) 1530 (Not Given - Provider: Jamaica Richardson - Reason: Other - Comment: patient being discharged.. confirmed with primary team..) tamsulosin (Flomax) 24 hr capsule 0.4 mg 0.4 mg, Oral, Daily, First dose on Wed06/15/21 at 1315, Until Discontinued, Routine 1621 (Given - Provider: Kenneth Munoz RN) 0852 (Given - Provider: Jamaica Richardson) vancomycin IVPB 1500 mg in 250 mL NS (CANCELED) 1,500 mg, Intravenous, Every 12 hours, First dose on Wed06/13/21 at 0400, Until Discontinued, at 193.3 mL/hr, Routine 0504 (New Bag - Provider: Mary Varela) Continuous Medication Order 06/14/2021 06/15/2021 06/16/2021 sodium chloride 0.9 % (NS) infusion 100 mL/hr, Intravenous, Continuous, Starting on Nenita 06/12/21 at 1505, Until 06/16/21 at 1802, Routine 0444 (New Bag - Provider: Eliel Vance) 0146 (New Bag - Provider: Kesha Richmond LPN) PRN Medication Order 06/14/2021 06/15/2021 06/16/2021 albuterol 108 (90 Base) MCG/ACT inhaler 2 puff 2 puff, Inhalation, Every 4 hours PRN, Starting on Nenita 06/12/21 at 1425, Until Wed06/16/21 at 1802, Routine, wheezing, shortness of breath ALPRAZolam (Xanax) tablet 1 mg 1 mg, Oral, 2 times daily PRN, Starting on Wed06/13/21 at 1509, Until Wed06/16/21 at 1802, Routine, anxiety 2151 (Given - Provider: Kesha Richmond LPN) cloNIDine (Catapres) tablet 0.1 mg (CANCELED) 0.1 mg, Oral, Every 12 hours PRN, Starting on Wed06/13/21 at 0816, Until 06/14/21 at 1319, Routine, BP > 160/ 100, please notify MD first before giving. 1214 (Given - Provider: Daija Pena) cloNIDine (Catapres) tablet 0.1 mg 0.1 mg, Oral, Every 8 hours PRN, Starting on Wed06/15/21 at 1300, Until Wed06/16/21 at 1802, Routine, SBP > 170 dextrose 10 % (D10W) bolus 125 mL(Linked Group 2) 125 mL (12.5 g), Intravenous, Every 15 min PRN, Starting on Nenita 06/12/21 at 1425, Until Wed06/16/21 at 1802, Administer over 7.5 Minutes, Routine, POC BG 51 to 70 mg/dL dextrose 10 % (D10W) bolus 250 mL(Linked Group 3) 250 mL (25 g), Intravenous, Every 15 min PRN, Starting on Wed06/12/21 at 1425, Until Wed06/16/21 at 1802, Administer over 15 Minutes, Routine, POC BG is less than or equal to 50 mg/dL dextrose 50 % solution 12.5 g(Linked Group 2) 12.5 g, Intravenous, Every 15 min PRN, Starting on Wed06/12/21 at 1425, Until Wed06/16/21 at 1802, Routine, low blood sugar, POC BG 51 to 70 mg/dL dextrose 50 % solution 25 g(Linked Group 3) 25 g, Intravenous, Every 15 min PRN, Starting on Wed06/12/21 at 1425, Until Wed06/16/21 at 1802, Routine, low blood sugar, POC BG is less than or equal to 50 mg/dL glucagon (human recombinant) injection 1 mg 1 mg, Intramuscular, Every 15 min PRN, Starting on Wed06/12/21 at 1425, Until Wed06/16/21 at 1802, Routine, If patient NPO, lacks IV access, May Give IM and POC BG less than or equal to 70 mg/dL, glucose (Glutose) 40 % oral gel 15 g 15 g, Oral, Once as needed, 1 dose, Starting on Wed06/12/21 at 1425, Until Wed06/16/21 at 1802, Routine, POC BG 71 to 89 glucose (Glutose) 40 % oral gel 15 g(Linked Group 2) 15 g, Oral, Every 15 min PRN, Starting on Wed06/12/21 at 1425, Until Wed06/16/21 at 1802, Routine, POC BG 51 to 70 glucose (Glutose) 40 % oral gel 30 g(Linked Group 3) 30 g, Oral, Every 15 min PRN, Starting on Wed06/12/21 at 1425, Until Wed06/16/21 at 1802, Routine, low blood sugar, POC BG less than or equal to 50 morphine PF 2 mg 2 mg, Intravenous, Every 4 hours PRN, Starting on Wed06/12/21 at 1503, Until Wed06/16/21 at 1802, Routine, severe pain naloxone (Narcan) injection 0.08 mg 0.08 mg, Intravenous, As needed, Starting on Wed06/12/21 at 1502, Until Wed06/16/21 at 1802, Routine, opioid reversal ondansetron (Zofran) injection 4 mg 4 mg, Intravenous, Every 6 hours PRN, Starting on Wed06/12/21 at 1426, Until Wed06/16/21 at 1802, Routine, nausea, vomiting 1010 (Given - Provider: Daija Pena) polyethylene glycol (Miralax) packet 17 g 17 g, Oral, Daily PRN, Starting on Wed06/12/21 at 1426, Until Wed06/16/21 at 1802, Routine, constipation sodium chloride 0.9 % flush 10 mL(Linked Group 4) 10 mL, Intravenous, Every 8 hours PRN, Starting on Wed06/12/21 at 1421, Until Wed06/16/21 at 1802, Routine, line care Linked Groups Order Group 1: remdesivir (Veklury) 200 mg in sodium chloride 0.9 % 250 mL IVPB (COMPLETED) 200 mg, Intravenous, Once, 1 dose, On Wed06/12/21 at 1510, STAT Followed by remdesivir (Veklury) 100 mg in sodium chloride 0.9 % 250 mL IVPBJump to med 100 mg, Intravenous, Every 24 hours, 4 doses, First dose on Wed06/13/21 at 1510, Last dose on Wed06/16/21 at 1510, Routine Group 2: dextrose 50 % solution 12.5 gJump to med 12.5 g, Intravenous, Every 15 min PRN, Starting on Wed06/12/21 at 1425, Until Wed06/16/21 at 1802, Routine, low blood sugar, POC BG 51 to 70 mg/dL Or dextrose 10 % (D10W) bolus 125 mLJump to med 125 mL (12.5 g), Intravenous, Every 15 min PRN, Starting on Wed06/12/21 at 1425, Until Wed06/16/21 at 1802, Administer over 7.5 Minutes, Routine, POC BG 51 to 70 mg/dL Or glucose (Glutose) 40 % oral gel 15 gJump to med 15 g, Oral, Every 15 min PRN, Starting on Nenita 06/12/21 at 1425, Until Wed06/16/21 at 1802, Routine, POC BG 51 to 70 Group 3: dextrose 50 % solution 25 gJump to med 25 g, Intravenous, Every 15 min PRN, Starting on Nenita 06/12/21 at 1425, Until Wed06/16/21 at 1802, Routine, low blood sugar, POC BG is less than or equal to 50 mg/dL Or dextrose 10 % (D10W) bolus 250 mLJump to med 250 mL (25 g), Intravenous, Every 15 min PRN, Starting on Nenita 06/12/21 at 1425, Until Wed06/16/21 at 1802, Administer over 15 Minutes, Routine, POC BG is less than or equal to 50 mg/dL Or glucose (Glutose) 40 % oral gel 30 gJump to med 30 g, Oral, Every 15 min PRN, Starting on Wed06/12/21 at 1425, Until Wed06/16/21 at 1802, Routine, low blood sugar, POC BG less than or equal to 50 Group 4: Insert peripheral IV (COMPLETED) Once, On Nenita 06/12/21 at 1422, For 1 occurrence And Saline lock IV (COMPLETED) Once, On Nenita 06/12/21 at 1422, For 1 occurrence And sodium chloride 0.9 % flush 10 mLJump to med 10 mL, Intravenous, Every 8 hours PRN, Starting on Wed06/12/21 at 1421, Until Wed06/16/21 at 1802, Routine, line care documented in this encounter Additional Health Concerns Infection Onset Date Last Indicated Resolved Time COVID 19 (Confirmed) Comment:[facility] has verified patient has a COVID-19 positive result. A chart review has been completed, EPI PUI has been completed and sent to appropriate Health Dept. [facility] Creative Writing Professor: Doyle 06/12/2021 06/12/2021 07/03/2021 5: 23 AM EST Assessment Noted Time A fall risk assessment has been complete d for the patient 06/12/2021 10:08 AM EST documented as of this encounter Care Teams Musical Instrument Maker Relationship Specialty Start Date End Date Michele Wright MD [address] [id number] PCP - General 10/11/20 Edgar Szymanski MD [address] [facility] [address] [place] [address] Radiation Oncologist Radiation Therapy 03/14/20 4 Suhn Hurst MD [address] [place] [address] Surgeon Neurosurgery 02/24/21 Divine Carpenter MD [address] [facility] [address] [place] [address] Medical Oncologist Medical Oncology 06/13/21 documented as of this encounter
--- OUTSIDE RECORDS SUMMARY | 2024-05-03 13:42 | XMS_ITS | Encounter Summary ---
[facility] Organization [facility] [place] [address] Care Team Providers Care Sales Representative [employer] Name Role Phone Michele Wright MD Primary Care Provider + [phone] Edgar Szymanski MD Unavailable [phone] Shun Hurst MD Unavailable [phone] Divine Carpenter MD Unavailable [phone] Ambika Cain [employer] Unavailable Unavailab le Encounter Details Date Type Department Care Team (Late st Contact Info) Description 06/16/2021 Social Work PSYCH ONCOLOGY [address] [place] [phone] Geri Vyas [address] [id number] Social History Tobacco Use Types Packs/Day Years [...] [address] [facility], [address] [place] [address] 07/17/2024 1:30 PM EST Appointment [facility] G Radiology [address] [place] [phone] 07/20/2024 2:50 PM EST Office Visit Pav [facility] Head, Neck & Respiratory [address] [facility] [place] [phone] Divine Carpenter MD [address] [facility] [address] [place] [address] documented as of this encounter Visit Diagnoses Not on filedocumented in this encounter Additional Health Concerns Infection Onset Date Last Indicated Resolved Time COVID 19 (Confirmed) Comment:[facility] has verified patient has a COVID-19 positive result. A chart review has been completed, EPI PUI has been completed and sent to appropriate Health Dept. [facility] General Matcher: Doyle 06/12/2021 06/12/2021 07/03/2021 5: 23 AM EST Assessment Noted Time A fall risk assessment has been complete d for the patient 06/12/2021 10:08 AM EST documented as of this encounter Care Teams Sales Representative [employer] Relationship Specialty Start Date End Date Michele Wright MD [address] [place] [address] PCP - General 10/11/20 Edgar Szymanski MD [address] [facility] [address] [place] [phone] Radiation Oncologist Radiation Therapy 03/14/20 4 Shun Hurst MD [address] [facility] [address] [place] [phone] Surgeon Neurosurgery 02/24/21 Divine Carpenter MD [address] [facility] [address] [phone] Medical Oncologist Medical Oncology 06/13/21 Ambika Cain [employer] Speech Language Pathologist Speech Pathology 10/06/23 documented as of this encounter
--- OUTSIDE RECORDS SUMMARY | 2024-05-03 13:42 | XMS_ITS | Encounter Summary ---
Author Organization [facility] Address [address] [place], [place] [id number] Care Team Providers Care Blood Bank Custodian Name Role Phone Michele Wright MD Primary Care Provider + [phone] Edgar Szymanski MD Unavailable [phone] Shun Hurst MD Unavailable [phone] Encounter Details Date Type Department Care Team (Late st Contact Info) Description 05/08/2021 Orders Only Pav CC Head, Neck & Respiratory [address] [place] [phone] Divine Carpenter MD 800 [facility] [address] [place] [address] Cancer of larynx (CMS/HCC) (Primary Dx) [...] CC Head, Neck & Respiratory 800 [facility], 2nd [place] [address] 07/17/2024 1:30 PM EST Appointment PAV G Radiology [address] [place] [address] 07/20/2024 2:50 PM EST Office Visit Pav CC Head, Neck & Respiratory 800 [facility], 2nd [place] [address] Divine Carpenter MD 800 [facility] [address] [place] [address] documented as of this encounter Results * (ABNORMAL) Magnesium (06/12/2021 10:36 AM EST) Pathologist [facility] Magnesium, Plasma 1.8(L) 1.9 - 2.4 mg/dL 06/12/2021 11:29 AM EST [facility] Blood Venous blood specimen / Unknown Venipuncture / Unknown 06/12/2021 10:36 AM EST 06/12/2021 11:00 AM EST us Divine Carpenter MD LAB BLOOD ORDERABLES Final R esult [facility] [address] [place] [address] * (ABNORMAL) Comprehensive metabolic panel (06/12/2021 10:36 AM EST) Glucose, Plasma 103(H) 74 - 99 mg/dL 06/12/2021 11:29 AM EST [facility] BUN, Plasma 26(H) 7 - 21 mg/dL 06/12/2021 11:29 AM EST [facility] Creatinine, Plasma 0.81 0.80 - 1.30 mg/dL 06/12/2021 11:29 AM EST [facility] BUN/Creatinine Ratio 32 06/12/2021 11:29 AM [facility] Sodium, Plasma 143 136 - 145 mmol/L 06/12/2021 11:29 AM [facility] Potassium, Plasma 4.1 3.7 - 4.8 mmol/L 06/12/2021 11:29 AM [facility] Chloride, Plasma 103 97 - 107 mmol/L 06/12/2021 11:29 AM [facility] CO2, Plasma 26 22 - 29 mmol/L 06/12/2021 11:29 AM [facility] Anion Gap 14 6 - 16 mmol/L 06/12/2021 11:29 AM [facility] Total Calcium, Plasma 9.2 8.9 - 10.2 mg/dL 06/12/2021 11:29 AM [facility] Total Protein 7.1 6.3 - 7.9 g/dL 06/12/2021 11:29 AM [facility] Albumin, Plasma 4.2 3.5 - 5.2 g/dL 06/12/2021 11:29 AM [facility] AST, Plasma 20 12 - 40 U/L 06/12/2021 11:29 AM [facility] ALT, Plasma 13 11 - 41 U/L 06/12/2021 11:29 AM [facility] Alkaline Phosphatase, Plasma 69 40 - 115 U/L 06/12/2021 11:29 AM [facility] Total Bilirubin, Plasma 0.6 0.2 - 1.1 mg/dL 06/12/2021 11:29 AM [facility] eGFR >60 >60 mL/min/1.7 3m*2 06/12/2021 11:29 AM [facility] Comment:eGFR = estimated GFR ; eGFR units = mL/min/1.73 sq meters Chronic Kidney Disease is considered if eGFR <60 mL/min/1.73 sq meters Kidney failure is considered if eGFR is <15 mL/min/1.73 sq meters. eGFR assumes steady state plasma creatinine concentration; not applicable if renal function is rapidly changing or patient is on dialysis. eGFR, if AFR/AM >60 >60 mL/min/1.7 3m*2 06/12/2021 11:29 AM [facility] Comment:eGFR = estimated GFR [...] 10:36 AM EST 06/12/2021 11:00 AM EST Divine Carpenter MD LAB BLOOD ORDERABLES Final R esult [facility] [address] [place] [address] * (ABNORMAL) CBC and differential (06/12/2021 10:36 AM EST) WBC Count 0.49(LL) 3.70 - 10.30 10*3/uL LAB HEMATOLOGY METHOD 06/12/2021 11:46 AM EST [facility] RBC Count 3.18(L) 4.60 - 6.10 10*6/uL LAB HEMATOLOGY METHOD 06/12/2021 11:46 AM EST [facility] HGB 10.1(L) 13.7 - 17.5 g/dL LAB HEMATOLOGY METHOD 06/12/2021 11:46 AM EST [facility] HCT 30.7(L) 40.0 - 51.0 % LAB HEMATOLOGY METHOD 06/12/2021 11:46 AM EST [facility] Platelet Count 10(LL) 155 - 369 10*3/uL LAB HEMATOLOGY METHOD 06/12/2021 11:46 AM EST [facility] MCV 97 79 - 98 fL LAB HEMATOLOGY METHOD 06/12/2021 11:46 AM EST [facility] MCH 31.8 26.0 - 32.0 pg LAB HEMATOLOGY METHOD 06/12/2021 11:46 AM EST [facility] MCHC 32.9 30.7 - 35.5 g/dL LAB HEMATOLOGY METHOD 06/12/2021 11:46 AM EST [facility] RDW 15.3(H) 11.5 - 14.5 % LAB HEMATOLOGY METHOD 06/12/2021 11:46 AM EST [facility] MPV LAB HEMATOLOGY METHOD 06/12/2021 11:46 AM EST [facility] Comment:Not Measured nRBC 0.0 <=0.0 per 100 WBCs LAB HEMATOLOGY METHOD 06/12/2021 11:46 AM EST [facility] Differential Type Automated LAB HEMATOLOGY METHOD 06/12/2021 11:46 AM EST [facility] Neutrophils % 64.0 % LAB HEMATOLOGY METHOD 06/12/2021 11:46 AM EST [facility] Lymphocytes % 20.0 % LAB HEMATOLOGY METHOD 06/12/2021 11:46 AM EST [facility] Monocytes % 16.0 % LAB HEMATOLOGY METHOD 06/12/2021 11:46 AM EST [facility] Eosinophils % 0.0 % LAB HEMATOLOGY METHOD 06/12/2021 11:46 AM EST [facility] Basophils % 0.0 % LAB HEMATOLOGY METHOD 06/12/2021 11:46 AM EST [facility] Immature Granulocytes % 0.0 % LAB HEMATOLOGY METHOD 06/12/2021 11:46 AM EST [facility] Neutrophils Absolute 0.31(LL) 1.60 - 6.10 10*3/uL LAB HEMATOLOGY METHOD 06/12/2021 11:46 AM EST [facility] Comment:Marked Leukopenia. A utomated Differential verified by slide scan Lymphocytes Absolute 0.10(L) 1.20 - 3.90 10*3/uL LAB HEMATOLOGY METHOD 06/12/2021 11:46 AM EST [facility] Monocytes Absolute 0.08(L) 0.30 - 0.90 10*3/uL LAB HEMATOLOGY METHOD 06/12/2021 11:46 AM EST [facility] Eosinophils Absolute 0.00 0.00 - 0.50 10*3/uL LAB HEMATOLOGY METHOD 06/12/2021 11:46 AM EST [facility] Basophils Absolute 0.00 0.00 - 0.10 10*3/uL LAB HEMATOLOGY METHOD 06/12/2021 11:46 AM EST [facility] Immature Granulocytes Absolute 0.00 0.00 - 0.06 10*3/uL LAB HEMATOLOGY METHOD 06/12/2021 11:46 AM EST [facility] Blood Venous blood specimen / Unknown Venipuncture / Unknown 06/12/2021 10:36 AM EST 06/12/2021 11:02 AM EST [facility] - 06/12/2021 11:46 AM EST Therapeutic decision making should be based on absolute values, rather than percentages. Divine Carpenter MD LAB BLOOD ORDERABLES Final R esult Performing Organization Address City/[facility]/ZIP Co de Phone Number [facility] [address] [place] [address] * (ABNORMAL) Magnesium (05/26/2021 8:55 AM EST) Pathologist [facility] Magnesium, Plasma 1.8(L) 1.9 - 2.4 mg/dL 05/26/2021 9:30 AM EST [facility] Blood Blood sample taken from central line / Unknown Venipuncture / Unknown 05/26/2021 8:55 AM EST 05/26/2021 9:01 AM EST Divine Carpenter MD LAB BLOOD ORDERABLES Final R esult Performing Organization Address [facility] Co de Phone Number [facility] [address] [place] [address] * (ABNORMAL) Comprehensive metabolic panel (05/26/2021 8:55 AM EST) Pathologist [facility] Glucose, Plasma 97 74 - 99 mg/dL 05/26/2021 9:30 AM EST [facility] BUN, Plasma 9 7 - 21 mg/dL 05/26/2021 9:30 AM EST [facility] Creatinine, Plasma 0.71(L) 0.80 - 1.30 mg/dL 05/26/2021 9:30 AM EST [facility] BUN/Creatinine Ratio 13 05/26/2021 9:30 AM EST [facility] Sodium, Plasma 147(H) 136 - 145 mmol/L 05/26/2021 9:30 AM EST [facility] Potassium, Plasma 4.3 3.7 - 4.8 mmol/L 05/26/2021 9:30 AM EST [facility] Chloride, Plasma 109(H) 97 - 107 mmol/L 05/26/2021 9:30 AM EST [facility] CO2, Plasma 29 22 - 29 mmol/L 05/26/2021 9:30 AM EST [facility] Anion Gap 9 6 - 16 mmol/L 05/26/2021 9:30 AM EST [facility] Total Calcium, Plasma 8.7(L) 8.9 - 10.2 mg/dL 05/26/2021 9:30 AM EST [facility] Total Protein 6.0(L) 6.3 - 7.9 g/dL 05/26/2021 9:30 AM EST [facility] Albumin, Plasma 3.7 3.5 - 5.2 g/dL 05/26/2021 9:30 AM EST [facility] AST, Plasma 16 12 - 40 U/L 05/26/2021 9:30 AM EST [facility] ALT, Plasma 6(L) 11 - 41 U/L 05/26/2021 9:30 AM EST [facility] Alkaline Phosphatase, Plasma 78 40 - 115 U/L 05/26/2021 9:30 AM EST [facility] Total Bilirubin, Plasma 0.4 0.2 - 1.1 mg/dL 05/26/2021 9:30 AM EST [facility] eGFR >60 >60 mL/min/1.7 3m*2 05/26/2021 9:30 AM EST [facility] Comment:eGFR = estimated GFR ; eGFR units = mL/min/1.73 sq meters Chronic Kidney Disease is considered if eGFR <60 mL/min/1.73 sq meters Kidney failure is considered if eGFR is <15 mL/min/1.73 sq meters. eGFR assumes steady state plasma creatinine concentration; not applicable if renal function is rapidly changing or patient is on dialysis. eGFR, if AFR/AM >60 >60 mL/min/1.7 3m*2 05/26/2021 9:30 AM EST [facility] Comment:eGFR = estimated GFR ; [...] central line / Unknown Venipuncture / Unknown 05/26/2021 8:55 AM EST 05/26/2021 9:01 AM EST us Divine Carpenter MD LAB BLOOD ORDERABLES Final R esult [facility] [address] [place] [address] * (ABNORMAL) CBC and differential (05/26/2021 8:55 AM EST) WBC Count 2.45(L) 3.70 - 10.30 10*3/uL LAB HEMATOLOGY METHOD 05/26/2021 10:09 AM EST [facility] RBC Count 3.16(L) 4.60 - 6.10 10*6/uL LAB HEMATOLOGY METHOD 05/26/2021 10:09 AM EST [facility] HGB 9.9(L) 13.7 - 17.5 g/dL LAB HEMATOLOGY METHOD 05/26/2021 10:09 AM EST [facility] HCT 30.8(L) 40.0 - 51.0 % LAB HEMATOLOGY METHOD 05/26/2021 10:09 AM EST [facility] Platelet Count 122(L) 155 - 369 10*3/uL LAB HEMATOLOGY METHOD 05/26/2021 10:09 AM EST [facility] MCV 98 79 - 98 fL LAB HEMATOLOGY METHOD 05/26/2021 10:09 AM EST [facility] MCH 31.3 26.0 - 32.0 pg LAB HEMATOLOGY METHOD 05/26/2021 10:09 AM EST [facility] MCHC 32.1 30.7 - 35.5 g/dL LAB HEMATOLOGY METHOD 05/26/2021 10:09 AM EST [facility] RDW 17.4(H) 11.5 - 14.5 % LAB HEMATOLOGY METHOD 05/26/2021 10:09 AM EST [facility] MPV 10.4 8.8 - 12.5 fL LAB HEMATOLOGY METHOD 05/26/2021 10:09 AM [facility] nRBC 0.0 <=0.0 per 100 WBCs LAB HEMATOLOGY METHOD 05/26/2021 10:09 AM EST [facility] Differential Type Automated LAB HEMATOLOGY METHOD 05/26/2021 10:09 AM EST [facility] Neutrophils % 62.0 % LAB HEMATOLOGY METHOD 05/26/2021 10:09 AM EST [facility] Lymphocytes % 15.0 % LAB HEMATOLOGY METHOD 05/26/2021 10:09 AM EST [facility] Monocytes % 22.0 % LAB HEMATOLOGY METHOD 05/26/2021 10:09 AM EST [facility] Eosinophils % 0.0 % LAB HEMATOLOGY METHOD 05/26/2021 10:09 AM EST [facility] Basophils % 0.0 % LAB HEMATOLOGY METHOD 05/26/2021 10:09 AM EST [facility] Immature Granulocytes % 1.0 % LAB HEMATOLOGY METHOD 05/26/2021 10:09 AM EST [facility] Neutrophils Absolute 1.52(L) 1.60 - 6.10 10*3/uL LAB HEMATOLOGY METHOD 05/26/2021 10:09 AM EST [facility] Lymphocytes Absolute 0.36(L) 1.20 - 3.90 10*3/uL LAB HEMATOLOGY METHOD 05/26/2021 10:09 AM EST [facility] Monocytes Absolute 0.54 0.30 - 0.90 10*3/uL LAB HEMATOLOGY METHOD 05/26/2021 10:09 AM EST [facility] Eosinophils Absolute 0.00 0.00 - 0.50 10*3/uL LAB HEMATOLOGY METHOD 05/26/2021 10:09 AM EST [facility] Basophils Absolute 0.01 0.00 - 0.10 10*3/uL LAB HEMATOLOGY METHOD 05/26/2021 10:09 AM EST [facility] Immature Granulocytes Absolute 0.02 0.00 - 0.06 10*3/uL LAB HEMATOLOGY METHOD 05/26/2021 10:09 AM EST [facility] Blood Blood sample taken from central line / Unknown Venipuncture / Unknown 05/26/2021 8:55 AM EST 05/26/2021 9:01 AM EST Narrative [facility] - 05/26/2021 10:09 AM EST Therapeutic decision making should be based on absolute values, rather than percentages. 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, unspecified site documented in this encounter Additional Health Concerns Assessment Noted Time A fall risk assessment has been complete d for the patient 05/03/2021 2:18 PM EST documented as of this encounter Care Teams Blood Bank Custodian Relationship Specialty Start Date End Date Michele Wright MD [address] [place] [id number] PCP - General 10/11/20 Edgar Szymanski MD [address] [place] [address] Radiation Oncologist Radiation Therapy 03/14/20 4 Shun Hurst MD [address] [place] [address] Surgeon Neurosurgery 02/24/21 documented as of this encounter
--- OUTSIDE RECORDS SUMMARY | 2024-05-03 13:42 | XMS_ITS | Encounter Summary ---
Author Organization Healthcare Address [facility] [place] [id number] Care Team Providers Care Hearing Therapist Name Role Phone Michele Wright MD Primary Care Provider + [phone] Edgar Szymanski MD Unavailable [phone] Shun Hurst MD Unavailable [phone] Reason for Visit * Reason Comments Med Refill Encounter Details Date Type Department Care Team ([facility] st Contact Info) Description 05/28/2021 Refill Pav CC Head, Neck & Respiratory [address] [place] [address] Hannah Sprague, REAL ESTATE OFFICE MANAGER [address] [facility] [address] [place] [address] Social History Tobacco Use Types Packs/Day Years [...] have Coronavirus / COVID-19? No / Unsure 05/26/2021 8:23 AM EST documented as of this encounter Plan of Treatment Upcoming Encounters Date Type Department Care Team (Late st Contact Info) Description 07/17/2024 12:30 PM EST Clinical Support Pav CC Head, Neck & Respiratory [address] [place] [address] 07/17/2024 1:30 PM EST Appointment PAV G Radiology [address] [place] [phone] 07/20/2024 2:50 PM EST Office Visit Pav CC Head, Neck & Respiratory 800 [facility], [address] [place] [phone] Divine Carpenter MD [address] [facility] [address] [place] [phone] documented as of this encounter Visit Diagnoses Not on filedocumented in this encounter Additional Health Concerns Assessment Noted Time A fall risk assessment has been complete d for the patient 05/12/2021 9:57 AM EST documented as of this encounter Care Teams Hearing Therapist Relationship Specialty Start Date End Date Michele Wright MD [address] [place] [address] PCP - General 10/11/20 Edgar Szymanski MD [address] [place] [phone] Radiation Oncologist Radiation Therapy 03/14/20 4 Shun Hurst MD [address] [facility] [address] [place] [phone] Surgeon Neurosurgery 02/24/21 documented as of this encounter
--- OUTSIDE RECORDS SUMMARY | 2024-05-03 13:42 | XMS_ITS | Encounter Summary ---
Author Organization Healthcare Address [address] [place] [address] Care Team Providers Care Public Relations Account Supervisor Name Role Phone Michele Wright MD Primary Care Provider + [phone] Edgar Szymanski MD Unavailable [phone] Shun Hurst MD Unavailable [phone] Encounter Details Date Type Department Care Team (Latest Contact Info) Description 05/26/2021 Travel Social History Tobacco Use Types Packs/Day [...] Pav CC Head, Neck & Respiratory [address] [facility], [address] [place] [address] 07/17/2024 1:30 PM EST Appointment PAV G Radiology [address] [place] [phone] 07/20/2024 2:50 PM EST Office Visit Pav CC Head, Neck & Respiratory [address] [facility], [address] [place] [phone] Divine Carpenter MD 800 [facility] [address] [place] [address] documented as of this encounter Visit Diagnoses Not on filedocumented in this encounter Additional Health Concerns Assessment Noted Time A fall risk assessment has been complete d for the patient 05/12/2021 9:57 AM EST documented as of this encounter Care Teams Public Relations Account Supervisor Relationship Specialty Start Date End Date Michele Wright MD [address] [place] [address] PCP - General 10/11/20 Edgar Szymanski MD 800 [facility] [address] [place] [phone] Radiation Oncologist Radiation Therapy 03/14/20 4 Shun Hurst MD [address] [facility] [address] [place] [phone] Surgeon Neurosurgery 02/24/21 documented as of this encounter
--- OUTSIDE RECORDS SUMMARY | 2024-05-03 13:42 | XMS_ITS | Encounter Summary ---
Author Organization [facility] Address [address] [id number] Care Team Providers Care Principal Systems Architect Name Role Phone Michele Wright MD Primary Care Provider [phone] Edgar Szymanski MD Unavailable [phone] Shun Hurst MD Unavailable [phone] Reason for Visit * Episode Based Medications (Routine) - Closed Specialty Diagnoses / Procedures Referred By Ortega t Referred To Contact Diagnoses Cancer of larynx (CMS/HCC) Divine Carpenter MD 800 [facility] [address] [place] [address] Phone: tel: fax: [facility] [address] [place] [address] Phone: tel: Referral ID Status Reason Start Date Expiration Date Visits Re quested Visits Authorized [id number] Closed 02/17/2021 10/25/2021 1 78 Encounter Details Date Type Department Care Team (Latest Contact Info) Description 05/26/2021 8:24 AM EST - 05/26/2021 11:59 PM EST Hospital Encounter [facility] [address] [place] [address] Cancer of larynx (CMS/HCC) (Primary [...] Sign Reading Time Taken Comments Blood Pressure 118/67 05/26/2021 8:41 AM EST Pulse 64 05/26/2021 8:41 AM EST Temperature 37.2 ??C (98.9 ??F) 05/26/2021 8:41 AM ES T Respiratory Rate 16 05/26/2021 8:41 AM EST Oxygen Saturation 95% 05/26/2021 8:41 AM EST Inhaled Oxygen Concentration - - Weight 100 kg (220 lb 14.4 oz) 05/26/2021 8:41 A M EST Height 177.8 cm (5' 10 ) 05/26/2021 8:41 AM EST Body Mass Index 31.7 05/26/2021 8:41 AM EST documented in this encounter Medications at Time of Discharge tamsulosin (Flomax) 0.4 MG 24 hr capsule Take 1 capsule (0.4 mg total) by mouth every night. To help with urine flow. 30 capsule 2 04/29/2021 05/29/2021 ALPRAZolam (Xanax) 1 MG tablet 1 tab(s) orally 2 times a day, As Needed 09/02/2020 06/12/2021 amLODIPine-atorv astatin (Caduet) 10-10 MG tablet Take 1 tablet by mouth 1 (one) time each day. 06/12/2021 gabapentin (Neurontin) 600 MG tablet Take 1 tablet (600 mg total) by mouth 4 (four) times a day. 120 tablet 1 04/21/2021 05/17/2023 levothyroxine (Synthroid, Levoxyl) 150 MCG tablet TAKE 1 TABLET DAILY. 03/29/2018 06/12/2021 lisinopril 10 MG tablet Take 1 tablet (10 mg total) by mouth 1 (one) time each day. 30 tablet 04/21/2021 05/29/2021 metoprolol tartrate (Lopressor) 50 MG tablet 1 tab(s) orally 2 times a day 06/12/2021 morphine CR (MS Contin) 60 MG 12 hr tablet Do not crush, chew, or split. 06/12/2021 omeprazole (PriLOSEC) [address] capsule TAKE 1 CAPSULE BY MOUTH EVERY DAY 90 capsule 2 04/29/2021 01/19/2022 omeprazole OTC (PriLOSEC OTC) 20 MG EC tablet Take 2 tablets (40 mg total) by mouth 1 (one) time each day. Do not crush, chew, or split. 60 tablet 5 01/27/2021 06/12/2021 ondansetron (Zofran) 8 MG tabletIndication s:Cancer of larynx (CMS/HCC) Take 1 tablet (8 mg total) by mouth 2 (two) times a day. Starting day after chemo for 3 days. 30 tablet 5 02/17/2021 08/18/2021 oxyCODONE (Roxicodone) 30 MG immediate release tablet 06/12/2021 prochlorperazine (Compazine) 10 MG tabletIndication s:Cancer of larynx (CMS/HCC) Take 1 tablet (10 mg total) by mouth every 6 (six) hours if needed for nausea or vomiting. 30 tablet 5 02/17/2021 07/12/2023 documented as of this encounter Plan of Treatment Upcoming Encounters Date Type Department Care Team (Late st Contact Info) Description 07/17/2024 12:30 PM EST Clinical Support [facility] [address] [facility], [address] [place] [address] 07/17/2024 1:30 PM EST Appointment [facility] [address] [place] [phone] 07/20/2024 2:50 PM EST Office Visit [facility] [address] [facility] [place] [address] Divine Carpenter MD [address] [place] [address] Diane Zuniga [facility] [address] [place] [address] documented as of this encounter Procedures Procedure Name Priority Date/Time Associated Diagnosis Comments CBC WITH AUTO DIFFERENTIAL Routine 05/26/2021 8:55 AM EST Cancer of larynx (CMS/HCC) MAGNESIUM, PLASMA STAT 05/26/2021 8:5 5 AM EST Cancer of larynx (CMS/HCC) COMPREHENSIVE METABOLIC PANEL, PLASMA Routine 05/26/2021 8:55 AM EST Cancer of larynx (CMS/HCC) documented in this encounter Results * (ABNORMAL) CBC and differential (05/26/2021 8:55 AM EST) WBC Count 2.45(L) 3.70 - 10.30 10*3/uL LAB HEMATOLOGY METHOD 05/26/2021 10:09 AM EST [facility] RBC Count 3.16(L) 4.60 - 6.10 10*6/uL LAB HEMATOLOGY METHOD 05/26/2021 10:09 AM EST [facility] HGB 9.9(L) 13.7 - 17.5 g/dL LAB HEMATOLOGY METHOD 05/26/2021 10:09 AM EST [facility] HCT 30.8(L) 40.0 - 51.0 % LAB HEMATOLOGY METHOD 05/26/2021 10:09 AM EST [facility] Platelet Count 122(L) 155 - 369 10*3/uL LAB HEMATOLOGY METHOD 05/26/2021 10:09 AM EST [facility] MCV 98 79 - 98 fL LAB HEMATOLOGY METHOD 05/26/2021 10:09 AM EST [facility] MCH 31.3 26.0 - 32.0 pg LAB HEMATOLOGY METHOD 05/26/2021 10:09 AM EST [facility] MCHC 32.1 30.7 - 35.5 g/dL LAB HEMATOLOGY METHOD 05/26/2021 10:09 AM EST [facility] RDW 17.4(H) 11.5 - 14.5 % LAB HEMATOLOGY METHOD 05/26/2021 10:09 AM EST [facility] MPV 10.4 8.8 - 12.5 fL LAB HEMATOLOGY METHOD 05/26/2021 10:09 AM EST [facility] nRBC 0.0 <=0.0 per 100 WBCs LAB HEMATOLOGY METHOD 05/26/2021 10:09 AM EST [facility] Differential Type Automated LAB HEMATOLOGY METHOD 05/26/2021 10:09 AM EST [facility] Neutrophils % 62.0 % LAB HEMATOLOGY METHOD 05/26/2021 10:09 AM EST [facility] Lymphocytes % 15.0 % LAB HEMATOLOGY METHOD 05/26/2021 10:09 AM EST [facility] Monocytes % 22.0 % LAB HEMATOLOGY METHOD 05/26/2021 10:09 AM EST [facility] Eosinophils % 0.0 % LAB HEMATOLOGY METHOD 05/26/2021 10:09 AM EST [facility] Basophils % 0.0 % LAB HEMATOLOGY METHOD 05/26/2021 10:09 AM EST [facility] Immature Granulocytes % 1.0 % LAB HEMATOLOGY METHOD 05/26/2021 10:09 AM EST [facility] Neutrophils Absolute 1.52(L) 1.60 - 6.10 10*3/uL LAB HEMATOLOGY METHOD 05/26/2021 10:09 AM EST [facility] Lymphocytes Absolute 0.36(L) 1.20 - 3.90 10*3/uL LAB HEMATOLOGY METHOD 05/26/2021 10:09 AM EST [facility] Monocytes Absolute 0.54 0.30 - 0.90 10*3/uL LAB HEMATOLOGY METHOD 05/26/2021 10:09 AM EST [facility] Eosinophils Absolute 0.00 0.00 - 0.50 10*3/uL LAB HEMATOLOGY METHOD 05/26/2021 10:09 AM EST [facility] Basophils Absolute 0.01 0.00 - 0.10 10*3/uL LAB HEMATOLOGY METHOD 05/26/2021 10:09 AM EST [facility] Immature Granulocytes Absolute 0.02 0.00 - 0.06 10*3/uL LAB HEMATOLOGY METHOD 05/26/2021 10:09 AM EST [facility] Blood Blood sample taken from central line / Unknown Venipuncture / Unknown 05/26/2021 8:55 AM EST 05/26/2021 9:01 AM EST [facility] - 05/26/2021 10:09 AM EST Therapeutic decision making should be based on absolute values, rather than percentages. us Divine Carpenter MD LAB BLOOD ORDERABLES Final R esult [facility] [address] [place] [address] * (ABNORMAL) Comprehensive metabolic panel (05/26/2021 8:55 AM EST) Glucose, Plasma 97 74 - 99 mg/dL 05/26/2021 9:30 AM EST [facility] BUN, Plasma 9 7 - 21 mg/dL 05/26/2021 9:30 AM EST [facility] Creatinine, Plasma 0.71(L) 0.80 - 1.30 mg/dL 05/26/2021 9:30 AM [facility] BUN/Creatinine Ratio 13 05/26/2021 9:30 AM [facility] Sodium, Plasma 147(H) 136 - 145 mmol/L 05/26/2021 9:30 AM [facility] Potassium, Plasma 4.3 3.7 - 4.8 mmol/L 05/26/2021 9:30 AM [facility] Chloride, Plasma 109(H) 97 - 107 mmol/L 05/26/2021 9:30 AM [facility] CO2, Plasma 29 22 - 29 mmol/L 05/26/2021 9:30 AM [facility] Anion Gap 9 6 - 16 mmol/L 05/26/2021 9:30 AM [facility] Total Calcium, Plasma 8.7(L) 8.9 - 10.2 mg/dL 05/26/2021 9:30 AM [facility] Total Protein 6.0(L) 6.3 - 7.9 g/dL 05/26/2021 9:30 AM [facility] Albumin, Plasma 3.7 3.5 - 5.2 g/dL 05/26/2021 9:30 AM EST [facility] AST, Plasma 16 12 - 40 U/L 05/26/2021 9:30 AM EST [facility] ALT, Plasma 6(L) 11 - 41 U/L 05/26/2021 9:30 AM [facility] Alkaline Phosphatase, Plasma 78 40 - 115 U/L 05/26/2021 9:30 AM [facility] Total Bilirubin, Plasma 0.4 0.2 - 1.1 mg/dL 05/26/2021 9:30 AM EST [facility] eGFR >60 >60 mL/min/1.7 3m*2 05/26/2021 9:30 AM EST [facility] Comment:eGFR = estimated GFR ; eGFR [...] >60 mL/min/1.7 3m*2 05/26/2021 9:30 AM EST [facility] Comment:eGFR = estimated GFR ; eGFR [...] ORDERABLES Final R esult Performing Organization Address City/[facility] Co de Phone Number [facility] [address] [place] [address] * (ABNORMAL) Magnesium (05/26/2021 8:55 AM EST) Magnesium, Plasma 1.8(L) 1.9 - 2.4 mg/dL 05/26/2021 9:30 AM EST [facility] Blood Blood sample taken from central line / Unknown Venipuncture / Unknown 05/26/2021 8:55 AM EST 05/26/2021 9:01 AM EST Divine Carpenter MD LAB BLOOD ORDERABLES Final R esult Performing Organization Address City/[facility]/ZIP Co de Phone Number [facility] [address] [place] [phone] documented in this encounter Visit Diagnoses Diagnosis 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, unspecified site documented in this encounter Administered Medications Inactive Administered Medications - up to 3 most recent administrations Medication Order MAR Action Action Date Dose Rate Site aprepitant (Cinvanti) 130 MG/18ML IV 130 mg 130 mg, Intravenous, Once, 1 dose, On Wed05/26/21 at 1030, RoutineIndications:Cancer of larynx (CMS/HCC) New Bag 05/26/2021 10:28 AM EST 130 mg 540 mL/hr CARBOplatin (Paraplatin) 750 mg in sodium chloride 0.9 % 250 mL chemo IVPB 750 mg (Target AUC = 5), Intravenous, at 740 mL/hr, Administer over 30 Minutes, Once, Hazardous Drug-Tier 1 Precautions. Dispose in BLACK Hazardous Waste Container. Chemotherapy: refer to A14-065., On Wed05/26/21 at 1200, For 1 dose, NS 250 mLIndications:Cancer of larynx (CMS/HCC) New Bag 05/26/2021 11:06 AM EST 750 mg 740 mL/hr dexamethasone (Decadron) tablet 12 mg 12 mg, Oral, Once, 1 dose, On Wed05/26/21 at 1030, RoutineIndications:Cancer of larynx (CMS/HCC) Given 05/26/2021 10:28 AM EST 12 mg fluorouracil (Adrucil) 8,750 mg in sodium chloride 0.9 % 230 mL chemo infusion - for home use 8,750 mg (rounded from 8,760 mg = 4,000 mg/m2 ? 2.19 m2 Treatment Plan BSA from Recorded weight), Intravenous, at 2.4 mL/hr, Administer over 96 Hours, Over 96 hours, Hazardous Drug-Tier 1 Precautions. Dispose in BLACK Hazardous Waste Container. Chemotherapy: refer to [id number]., First dose on Wed05/26/21 at 1230, For 1 dose, NS 230 mL (Elastometric Pump)Indications:Cancer of larynx (CMS/HCC) Given 05/26/2021 12:50 PM EST 8,750 mg 2.4 mL/hr magnesium oxide (Mag-Ox) tablet 400 mg 400 mg, Oral, Once, 1 dose, On Wed05/26/21 at 1000, RoutineIndications:Cancer of larynx (CMS/HCC) Given 05/26/2021 10:28 AM EST 400 mg ondansetron ODT (Zofran-ODT) disintegrating tablet 16 mg 16 mg, Oral, Once, 1 dose, On 05/26/21 at 1030, RoutineIndications:Cancer of larynx (CMS/HCC) Given 05/26/2021 10:28 AM EST 16 mg documented in this encounter Additional Health Concerns Assessment Noted Time A fall risk assessment has been complete d for the patient 05/12/2021 9:57 AM EST documented as of this encounter Care Teams Principal Systems Architect Relationship Specialty Start Date End Date Michele Wright MD [address] [place] [address] PCP - General 10/11/20 Edgar Szymanski MD [address] [place] [phone] Radiation Oncologist Radiation Therapy 03/14/20 4 Shun Hurst MD [address] [place] [address] Surgeon Neurosurgery 02/24/21 documented as of this encounter
--- OUTSIDE RECORDS SUMMARY | 2024-05-03 13:42 | XMS_ITS | Encounter Summary ---
Author Organization [facility] Address [address] [id number] Care Team Providers Care Anaesthesiologist Name Role Phone Michele Wright MD Primary Care Provider [phone] Edgar Szymanski MD Unavailable [phone] Shun Hurst MD Unavailable [phone] Reason for Visit * Episode Based Medications (Routine) - Closed Specialty Diagnoses / Procedures Referred By Ortega t Referred To Contact Diagnoses Cancer of larynx (CMS/HCC) Divine Carpenter MD [address] [address] Phone: tel: fax: [facility] [address] [place] [address] Phone: tel: Referral ID Status Reason Start Date Expiration Date Visits Re quested Visits Authorized [id number] Closed 02/17/2021 10/25/2021 1 78 Encounter Details Date Type Department Care Team (Latest Contact Info) Description 05/30/2021 1:00 PM EST - 05/30/2021 11:59 PM EST Hospital Encounter [facility] [address] [place] [address] Cancer of larynx (CMS/HCC) Discharge Disposition: Home [...] Sign Reading Time Taken Comments Blood Pressure 130/73 05/30/2021 1:14 PM EST Pulse 53 05/30/2021 1:14 PM EST Temperature 36.7 ??C (98.1 ??F) 05/30/2021 1:14 PM ES T Respiratory Rate 16 05/30/2021 1:14 PM EST Oxygen Saturation 97% 05/30/2021 1:14 PM EST Inhaled Oxygen Concentration - - Weight 94.6 kg (208 lb 8.9 oz) 05/30/2021 1:14 P M EST Height 177.8 cm (5' 10 ) 05/30/2021 1:14 PM EST Body Mass Index 29.92 05/30/2021 1:14 PM EST documented in this encounter Medications at Time of Discharge ALPRAZolam (Xanax) 1 MG tablet 1 tab(s) [...] DAILY. 03/29/2018 06/12/2021 lisinopril 10 MG tablet TAKE 1 TABLET BY MOUTH EVERY DAY 30 tablet 05/29/2021 06/30/2021 metoprolol tartrate (Lopressor) 50 MG tablet 1 [...] 02/17/2021 07/12/2023 documented as of this encounter Miscellaneous Notes * Addendum Note - Silvia Farmer - 05/30/2021 1:00 PM ESTEncounter addended by: Silvia Farmer on: 06/03/2021 9:59 AM Actions taken: Charge Capture section accepted documented in this encounter Plan of Treatment Upcoming Encounters Date Type Department Care Team (Late st Contact Info) Description 07/17/2024 12:30 PM EST Clinical Support Pav [facility] [address] [place] [address] 07/17/2024 1:30 PM EST Appointment [facility] [address] [place] [address] 07/20/2024 2:50 PM EST Office Visit [facility] [address] [facility], [address] [place] [address] Divine Carpenter MD [address] [facility] Diane Zuniga [facility] [address] [place] [address] documented as of this encounter Visit Diagnoses Diagnosis 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, unspecified site documented in this encounter Additional Health Concerns Assessment Noted Time A fall risk assessment has been complete d for the patient 05/30/2021 1:14 PM EST documented as of this encounter Care Teams Anaesthesiologist Relationship Specialty Start Date End Date Michele Wright MD [address] [place] [address] PCP - General 10/11/20 Edgar Szymanski MD [address] [facility] [address] [place] [phone] Radiation Oncologist Radiation Therapy 03/14/20 4 Shun Hurst MD [address] [facility] [address] [place] [phone] Surgeon Neurosurgery 02/24/21 documented as of this encounter
--- OUTSIDE RECORDS SUMMARY | 2024-05-03 13:42 | XMS_ITS | Encounter Summary ---
Author Organization Healthcare Address [address] [place], [place] [id number] Care Team Providers Care Mechanical Press Operator Name Role Phone Michele Wright MD Primary Care Provider [phone] Edgar Szymanski MD Unavailable [phone] Shun Hurst MD Unavailable [phone] Reason for Visit * Reason Comments Follow-up * Auth/Cert Specialty Diagnoses / Procedures Referred By Contac t Referred To Contact Diagnoses Acute COVID-19 DEHYDRATED, HYPOXIC Karan Deleon MD [address] [facility] [address] [place] [address] Phone: tel: fax: [facility] [address] [place] [address] Phone: tel: Referral ID Status Reason Start Date Expiration Date Visits Re quested Visits Authorized [id number] 1 1 Encounter Details Date Type Department Care Team (Late st Contact Info) Description 06/12/2021 10:10 AM EST Office Visit [facility] Res[facility] [address] [facility], [address]nd [place] [address] Divine Carpenter MD [address] [facility] [address] [place] [address] Cancer of larynx (CMS/HCC) (Primary Dx); Hypoxia Social History Tobacco Use Types Packs/Day Years [...] Sign Reading Time Taken Comments Blood Pressure 98/62 06/12/2021 10:09 AM EST Pulse 68 06/12/2021 10:09 AM EST Temperature 37.3 ??C (99.2 ??F) 06/12/2021 1 0:09 AM EST Respiratory Rate 16 06/12/2021 10:0 9 AM EST Oxygen Saturation 90% 06/12/2021 10: 09 AM EST Inhaled Oxygen Concentration - - Weight 89.3 kg (196 lb 13.9 oz) 022 10:09 AM EST Height 173 cm (5' 8.11 ) 06/12/2021 10: 09 AM EST Body Mass Index 29.84 06/12/2021 10:09 AM EST documented in this encounter Miscellaneous Notes * Progress Notes - Divine Carpenter MD - 06/12/2021 10:10 AM EST MEDICAL ONCOLOGY FOLLOW-UP NOTE Patient Information Patient Name: Anibal Barreto Date of : 1965 REFERRING PHYSICIAN: Michele Wright MD Encounter Date: 06/12/2021 Treatment Diagnosis: Cancer Staging Cancer of larynx [...] Stage IVC. he returns for followup and arrived in clinic with noted hypoxia, hypotension, failure to thrive, vomiting, decreased po intake for 1 week. He is currently under active treatment with systemic therapy 4 cycles of carboplatin 5 fluorouracil last given May 26 through May 302020. Hehasamm previously refused a PEG but presents with dehydration, possible COVID infection and I have elected to admit him to the hospital for further workup and evaluation. Oncology History Overview Note Mr Anibal Barreto [...] with adenopathy in levels 2 through 4 [id number] 3 PET/CT scan dated 02/19/2017 showed an [...] limited neck dissection with ALT free flap, [id number] 7 Subsequent followup scans were negative for [...] stain and gram + bacilli with microabscesses. Cancer of larynx ([facility]/HCC) 02/19/2017 Cancer Staged Staging form: Larynx - Glottis, AJCC 8th Edition, Clinical stage from 02/19/2017: Stage ZULAY (cT3, cN2c, cM0) - Signed by Divine Carpenter MD on 10/14/2020 03/18/2017 Initial Diagnosis Cancer of larynx ([facility]/HCC) 03/22/2018 Cancer Staged Staging form: Larynx - Glottis, AJCC 8th Edition, Pathologic stage from 03/22/2018: Stage III (rpT3, pN0, cM0) - Signed by Divine Carpenter MD on 10/14/2020 11/21/2019 Cancer Staged Staging form: Larynx - Glottis, AJCC 8th Edition, Pathologic stage from 11/21/2019: Stage IVC (rpTX,pNX, pM1) - Signed by Divine Carpenter MD on 10/14/2020 03/14/2020 - 11/24/2020 Research Study Participant [id number]: Pembrolizumab Every 42 Days Every 84 Days Plan Provider: Divine Carpenter MD Treatment goal: Palliative Line of treatment: Second Line Associated studies: Priming Immunotherapy in Advanced Disease with Radiation 11/26/2020 - Radiation Therapy The patient saw No care steam shovelman to display for radiation treatment. This is the current list ofradiation treatment: Radiation Treatments No radiation treatments to show. (Treatments may have been administered in another system.) 12/09/2020 - Radiation Therapy The patient saw No care steam shovelman to display for radiation treatment. This is [...] Intravenous, Once, 4 of 6 cycles Administration: 750 mg (03/10/2021), 750 mg (03/31/2021), 750 mg (04/29/2021), 750 mg (05/26/2021) fluorouracil (Adrucil) 8,750 mg in sodium chloride 0.9 % 230 mL chemo infusion - for home use, 4,000 mg/m2 = 8,750 mg, Intravenous, Over 96 hours, 4 of 6 cycles Administration: 8,750 mg (03/10/2021), 8,750 mg (03/31/2021), 8,750 mg (04/29/2021), 8,750 mg (05/26/2021) aprepitant (Cinvanti) 130 MG/18ML IV 130 mg, 130 mg, Intravenous, Once, 4 of 6 cycles Administration: 130 mg (03/10/2021), 130 mg (03/31/2021), 130 mg (04/29/2021), 130 mg (05/26/2021) Secondary malignant neoplasm of chest wall (CMS/HCC) 11/26/2020 - Radiation Therapy The patient saw No care steam shovelman to display for radiation treatment. This is the current list ofradiation treatment: Radiation Treatments No radiation treatments to show. (Treatments may have been administered in another system.) 11/26/2020 Initial Diagnosis Secondary malignant neoplasm of chest wall (CMS/HCC) 12/09/2020 - Radiation Therapy The patient saw No care steam shovelman to display for radiation treatment. This is the current list ofradiation treatment: Radiation Treatments No radiation treatments to show. (Treatments may have been administered in another system.) Currently, he Has fever, chills, constipation, shortness of breath, cough, sputum production, dysphagia, voice changes, hearing loss, visual changes, stridor. Problem List and Medications Reviewed in this encounter by me personally Objective Performance Status 2: Ambulatory and capable of all self-care but unable to work. Up & about >50% waking hours Blood pressure 98/62, pulse 68, temperature 37.3 ??C (99.2 ??F), temperature source Oral, resp. rate 16, height 1.73 m (5' 8.11 ), weight 89.3 kg (196 lb 13.9 oz), SpO2 90 %. EXAM Physical Exam Constitutional: General: He [...] related drug toxicity and treatment related long term care social worker toxicity CBC WBC 0.49 Hgb 10.1 PLT 10 HCT 30.7 Lab Results Component Value Date NEUTROABS 0.31 (LL) 06/12/2021 BMPL Na 143 Cl 103 BUN 26 Gluc 103 K 4.1 Co2 26 Creat 0.81 LIVER FUNCTION TESTING Tot Prot 7.1 AST 20 Tot bili 0.6 ALT 13 Alkphos 69 Ca 9.2 Mg 1.8 Lab Results Component Value Date TSH 7.79 (H) 05/08/2021 Assessment/Plan 1. Cancer management : Cancer Staging Cancer of larynx (CMS/HCC), Staging form: Larynx - Glottis, AJCC 8th Edition, Pathologic: Stage IVC (recurrent) -This represents a life threatening illness for which continued cancer treatment is indicated. - I have elected to hold his chemotherapy today, swab him for COVID (approved as a stat test by ), and admit him for stabilization, oxygen, imaging, and consideration of PEG tube placementonce he is stable. He will need an oncology consult while inpatient (I will inform the team) . Patient was informed of this and is agreeable to admission for infectious workup. - hold 5FU + Carboplatin, RTC for next cycle once he is stabilized and is proven to be COVID negative. 2. Dizziness and presyncope - Patient reported feeling dizzy after he bends over to pick something up and then stands up - BP runs low at home 99/60 - He is on amlodipine 10, lisinopril 10 and metoprolol 50 mg. Also on Tamsulosin for BPH. All of which can cause orthostatic dizziness/presyncope, and these supposed to have been adjusted by his PCP.We will hold these on admission and follow blood pressure 2. New onset hypoxia - suspect infectious etiology sent COVID swab will need CT scan and sputum culture upon arrival to ER 3. 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 - Reasonably controlled. Addendum 12;29 pm 6. COVID positive - called admitting to alert them and PA 7. Pancytopenia - Broad spectrum antibiotics, transfuse platelets to keep platelets >10, monitor daily CBC with diff Divine Carpenter MD Orders Placed This Encounter Procedures ??? SARS CoV-2/COVID-19 by PCR ??? SARS CoV-2/COVID-19 by PCR - Rapid documented in this encounter Plan of Treatment Upcoming Encounters Date Type Department Care Team (Late st Contact Info) Description 07/17/2024 12:30 PM EST Clinical Support [facility] Res[facility] [address], [address] [place] [address] 07/17/2024 1:30 PM EST Appointment [facility] [address] [place] [address] 07/20/2024 2:50 PM EST Office Visit Pav [facility] Head[facility] Neck [facility] Respiratory [address] [facility], [address] [place] [address] Divine Carpenter MD [address] [facility] [address] [place] [address] documented as of this encounter Procedures Procedure Name Priority Date/Time Associated Diagnosis Comments SARS COV-2/COVID-19 BY PCR - RAPID LAB ONLY Routine 06/12/2021 10:45 AM EST documented in this encounter Results * (ABNORMAL) SARS CoV-2/COVID-19 by PCR - Rapid (06/12/2021 10:45 AM EST) SARS CoV-2/COVID-1 9 RNA PCR Result Detected( A) Not Detected 06/12/2021 12:25 PM EST [facility] Swab Nasopharyngeal structure / Unknown Non-blood Collection / Unknown 06/12/2021 10:45 AM EST 06/12/2021 11:08 AM EST Narrative [facility] - 06/12/2021 12:25 PM EST This assay is for in vitro diagnostic use under FDA emergency use authorization only. Negative results do not preclude infection with the SARS CoV-2 virus and should not be the sole basis of a patient treatment/management or public health decision. Follow up testing should be performed according to the current CDC recommendations. This test was performed on the Xpert Xpress SARS CoV-2 test, a PCR-based method. Negative results should be considered presumptive and do not preclude current or future infection obtained through community transmission or other exposures. Negative results must be considered in the context of an individual's recent exposures, history, presence of clinical signs and symptoms consistent with COVID-19. Divine Carpenter MD LAB MICROBIOLOGY - GENERAL O RDERABLES Final Result [facility] [address] [place] [address] documented in this encounter Visit Diagnoses Diagnosis 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, unspecified site Hypoxia Hypoxemia documented in this encounter Additional Health Concerns Infection Onset Date Last Indicated Resolved Time COVID-19 Rule-Out 06/12/2021 06/12/2021 06/12/2021 12:25 PM EST COVID 19 (Confirmed) Comment:IPAC has verified patient has a COVID-19 positive result. A chart review has been completed, EPI PUI has been completed and sent to appropriate Health Dept. IPA Preassembler [employer]ed [employer]: Doyle 06/12/2021 06/12/2021 07/03/2021 5: 23 AM EST Assessment Noted Time A fall risk assessment has been complete d for the patient 06/12/2021 10:08 AM EST documented as of this encounter Care Teams Mechanical Press Operator Relationship Specialty Start Date End Date Michele Wright MD [address] [phone] PCP - General 10/11/20 Edgar Szymanski MD [address] [facility] [address] [place] [address] Radiation Oncologist Radiation Therapy 03/14/20 4 Shun Hurst MD [address] [facility] [address] [place] [id number] Surgeon Neurosurgery 02/24/21 documented as of this encounter
--- OUTSIDE RECORDS SUMMARY | 2024-05-03 13:42 | XMS_ITS | Encounter Summary ---
Author Organization [facility] Address [address] [id number] Care Team Providers Care Structural Steel Shop Supervisor Name Role Phone Michele Wright MD Primary Care Provider + [phone] Edgar Szymanski MD Unavailable [phone] Shun Hurst MD Unavailable [phone] Reason for Visit * Reason Comments Follow-up * Episode Based Medications (Routine) - Closed Specialty Diagnoses / Procedures Referred By Ortega harden Referred To Contact Diagnoses Cancer of larynx (CMS/HCC) Divine Carpenter MD [address] [facility] [address] [address] Phone: tel: fax: [facility] [address] [place] [address] Phone: tel: Referral ID Status Reason Start Date Expiration Date Visits Re quested Visits Authorized [id number] Closed 02/17/2021 10/25/2021 1 78 Encounter Details Date Type Department Care Team (Late st Contact Info) Description 05/12/2021 10:00 AM EST Office Visit [facility] Head[facility] Ne[facility] Respiratory [address] [facility], [address]nd [place] [address] Divine Carpenter MD 800 [facility] [address] [address] Neoplasm related pain (Primary Dx); Cancer of larynx (CMS/HCC); Asymmetric SNHL (sensorineural hearing loss) Social History Tobacco Use Types Packs/Day Years [...] Sign Reading Time Taken Comments Blood Pressure 144/66 05/12/2021 9:58 AM EST Pulse 56 05/12/2021 9:58 AM EST Temperature 36.9 ??C (98.5 ??F) 05/12/2021 9:58 AM ES T Respiratory Rate 18 05/12/2021 9:58 AM EST Oxygen Saturation 97% 05/12/2021 9:58 AM EST Inhaled Oxygen Concentration - - Weight 97.2 kg (214 lb 4.6 oz) 05/12/2021 9:58 A M EST Height 175.5 cm (5' 9.09 ) 05/12/2021 9:58 AM ES T Body Mass Index 31.56 05/12/2021 9:58 AM EST documented in this encounter Miscellaneous Notes * Progress Notes - Bernard Berrios MD - 05/12/2021 10:00 AM EST MEDICAL ONCOLOGY FOLLOW-UP NOTE Patient Information Patient Name: Anibal Barreto Date of : 1965 REFERRING PHYSICIAN: Michele Wright MD Encounter Date: 05/12/2021 Treatment Diagnosis: Cancer Staging Cancer of larynx [...] of Present Illness: Anibal Barreto is a 55 y.o. 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 Cancer of larynx (CMS/HCC) 02/19/2017 Cancer Staged [...] 10/14/2020 03/14/2020 - 11/24/2020 Research Study Participant [id number]: Pembrolizumab Every 42 Days Every 84 Days Plan Provider: Divine Carpenter MD Treatment goal: Palliative Line of treatment: Second Line Associated studies: Priming Immunotherapy in Advanced Disease with Radiation 11/26/2020 - Radiation Therapy The patient saw No care recruiting team lead to display for radiation treatment. This is the current list ofradiation treatment: Radiation Treatments No radiation treatments to show. (Treatments may have been administered in another system.) 12/09/2020 - Radiation Therapy The patient saw No care recruiting team lead to display for radiation treatment. This is the current list ofradiation treatment: Radiation Treatments No radiation treatments to show. (Treatments may have been administered in another system.) 01/27/2021 - 02/17/2021 Chemotherapy 03/10/2021 - Chemotherapy Secondary malignant neoplasm of chest wall (CMS/HCC) 11/26/2020 - Radiation Therapy The patient saw No care recruiting team lead to display for radiation treatment. This is the current list ofradiation treatment: Radiation Treatments No radiation treatments to show. (Treatments may have been administered in another system.) 11/26/2020 Initial Diagnosis Secondary malignant neoplasm of chest wall (CMS/HCC) 12/09/2020 - Radiation Therapy The patient saw No care recruiting team lead to display for radiation treatment. This is the current list ofradiation treatment: Radiation Treatments No radiation treatments to show. (Treatments may have been administered in another system.) Subjective: Currently, he denies fever, or chills, dysuria, hematuria, constipation, melena, diarrhea, hematochezia, hematemesis, abdominal pain, shortness of breath, cough, sputum production, mental status changes, neuropathy, chest pain, palpitations, rash, itching, dysphagia, voice changes, hearing loss, visual changes, stridor. He reported having episodes of presyncope when he stands up from bending over or changing positions. Problem List and Medications Reviewed in this encounter by me personally Objective Performance Status 1: Restricted in physically strenuous activity but ambulatory and able to do light work Blood pressure 144/66, pulse 56, temperature 36.9 ??C (98.5 ??F), temperature source Oral, resp. rate 18, height 1.755 m (5' 9.09 ), weight 97.2 kg (214 lb 4.6 oz), SpO2 97 %. EXAM Physical Exam Constitutional: General: He [...] LABORATORIES STUDIES: reviewed by me personally today CBC WBC 3.76 Hgb 9.7 PLT 82 HCT 29.4 Lab Results Component Value Date NEUTROABS 2.75 05/08/2021 BMPL Na 140 Cl 103 BUN 10 Gluc 84 K 3.9 Co2 28 Creat 0.62 LIVER FUNCTION TESTING Tot Prot 6.1 AST 16 Tot bili 0.5 ALT 13 Alkphos 71 Ca 8.7 Mg 1.7 Lab Results Component Value Date TSH 7.79 (H) 05/08/2021 RADIOLOGY: I visualized the recent imaging below and discussed the current radiology findings with the patientin detail and provided the report to the patient and answered all questions. CT Soft Tissue Neck w IV Contrast 05-08-21 Impression: 1. No significant cervical adenopathy is present. 2. There is no pharyngeal, laryngeal or soft tissue mass. No definite evidence of tumor recurrence. CT Chest w IV Contrast 05-08-21 Impression: No acute airspace disease. Patulous esophagus suggesting esophageal dysmotility. Assessment/Plan 1. Cancer management : Cancer Staging Cancer of larynx (CMS/HCC), Staging form: Larynx - Glottis, AJCC 8th Edition, Pathologic: Stage IVC (recurrent) -This represents a life threatening illness for which continued cancer treatment is indicated. - I visualized the recent imaging 05/08/21 and discussed the current radiology findings with the patient in detail and gave copies of the reports to the patient and answered all questions. NO EVIDENCEOF PROGRESSIVE DISEASE - I reviewed liver and renal function as well as bone marrow function - The selection, dosing and administration of anti-cancer agents and the management of associated toxicities requires complex medical decision making. Modifications of drug dose and schedule as well as the initiation of supportive care interventions are often necessary because of expected toxicities. This varies individually based on patient tolerability, prior treatments and comorbidities. The optimal delivery of anticancer agents requires a healthcare delivery team experienced in the use of anticancer agents and the management of associated toxicities in patients with cancer - Switched to 5FU/Carbo secondary to anaphylaxis to cetuximab -PLAN: - C#4 5FU + Carboplatin 05/26/21 -Laboratory data pending at the time of note completion. Labs will be reviewed once available and the patient will be notified of any changes to the plan of care. - RTC 3 weeks after that for follow up with Dr. Carpenter and C5, will rescheduled imaging to be performed before next appt. #Dizziness and presyncope - Patient reported feeling dizzy after he bends over to pick something up and then stands up - BP runs low at home 99/60 - He is on amlodipine 10, lisinopril 10 and metoprolol 50 mg. Also on Tamsulosin for BPH. All of which can cause orthostatic dizziness/presyncope - I advised him to talk to his PCP to consider cutting down some of his BP medications - I advised him to change positions slowly to avoid falls and syncope 2. Pain related to neoplasm: chronic with significant relief - Refilled Gabapentin today, no other refills needed - I have evaluated the prescription pain medications currently in use and refilled his oxycodone - The patient continues to experience pain directly related to their neoplasm requiring monitoring and adjustments in dosage and frequency of narcotic and adjunctive medications by me. KEVAN report reviewed and will be reviewed periodically 3. 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 Correia soon with MBS and potential need foresophageal dilation. 4. Monitoring for the emergence of hypothyroidism - Continue levothyroxine at current dose This will be periodically monitored as we continue therapy, due to the potential for worsening of thyroid function from radiation and systemic cancer therapy. 5. Regimen Related Toxicity: - Chemotherapy Induced Nausea: Prescribed ondansetron, compazine and will monitor for nausea and vomiting. - Reasonably controlled. I discussed with the patient the care setting of the Medical Oncology Clinic. Discussed my role as a fellow physician, providing care under the supervision of an attending physician board certified in the field of medical oncology. We discussed the larger role of the subspecialty care providers at [facility] and that we would be in consultation with experts in the patient's disease throughout all phases of treatment. Patient voiced understanding and agreement. The case and plan was discussed with attending Dr Carpenter 35 minutes was spent on this encounter; [...] of associated toxicities in patients with cancer. Bernard Berrios MD PGY4 Hematology and oncology fellow [facility] [address] [place] [address] Divine Carpenter MD No orders of the defined types were placed in this encounter. Cosigned by Divine Carpenter MD at 05/12/2021 1:15 PM EST Associated attestation - Divine Carpenter MD - 05/12/2021 1:15 PM EST Attending Attestation Statement: Today, I saw and evaluated the patient with the resident/fellow. Idiscussed the case with the resident/fellow and agree with the findings and plan as documented.. I have reviewed the above notes and edited where appropriate reflecting my evaluation and assessment of the patient; I concur with the physical exam above, I edited the exam and medical history and I repeated relevant portions of the exam and the plans have been generated by me and under my supervision. I personally visualized the radiology scans above and gave copies of scans. I personally discussed the plans outlined above at length with the patient. Divine Carpenter MD documented in this encounter Plan of Treatment Upcoming Encounters Date Type Department Care Team (Late st Contact Info) Description 07/17/2024 12:30 PM EST Clinical Support [facility] Neck [facility] Respiratory [address] [facility], [address]nd [place] [address] 07/17/2024 1:30 PM EST Appointment [facility] [address] [place] [address] 07/20/2024 2:50 PM EST Office Visit [facility] Head[facility] Neck [facility] Respiratory [address] [facility], [address]nd [place] [address] Divine Carpenter MD [address] [facility] [address] [place] [address] documented as of this encounter Visit Diagnoses Diagnosis 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) 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, unspecified site Asymmetric SNHL (sensorineural hearing loss) Sensorineural hearing loss, asymmetrical documented in this encounter Additional Health Concerns Assessment Noted Time A fall risk assessment has been complete d for the patient 05/12/2021 9:57 AM EST documented as of this encounter Care Teams Structural Steel Shop Supervisor Relationship Specialty Start Date End Date Michele Wright MD [address] [place], [place] [id number] PCP - General 10/11/20 Edgar Szymanski MD 800 [facility] [address] [place] [address] Radiation Oncologist Radiation Therapy 03/14/20 4 Shun Hurst MD [address] [facility] [address] [place] [address] Surgeon Neurosurgery 02/24/21 documented as of this encounter
--- OUTSIDE RECORDS SUMMARY | 2024-05-03 13:42 | XMS_ITS | Encounter Summary ---
Author Organization [facility] Address [address] [place] [address] Care Team Providers Care Base Remover Name Role Phone Michele Wright MD Primary Care Provider + [phone] Edgar Szymanski MD Unavailable [phone] Shun Hurst MD Unavailable [phone] Divine Carpenter MD Unavailable [phone] Encounter Details Date Type Department Care Team (Late st Contact Info) Description 06/18/2021 Orders Only [facility] Ne[facility] Respiratory [address] [place] [address] Ambika Ambriz RN [facility] Osteoarthritis, unspecified osteoarthritis type, unspecified site (Primary Dx); Secondary malignant neoplasm of chest wall (CMS/HCC); Neoplasm related pain; Decreased mobility; Declining functional status; Weakness generalized Social History Tobacco Use Types Packs/Day Years [...] 800 [facility], [address]nd [place] [address] 07/17/2024 1:30 PM EST Appointment [facility] [address] [place] [address] 07/20/2024 2:50 PM EST Office Visit [facility] Head[facility] Neck & Respiratory [address] [facility], [address]nd [place] [address] Divine Carpenter MD 800 [facility] [address] [place] [address] documented as of this encounter Visit Diagnoses Diagnosis Osteoarthritis, unspecified osteoarthritis type, unspecified site- Primary Secondary malignant neoplasm of chest wall (CMS/HCC) Neoplasm related pain Neoplasm related pain (acute) (chronic) Decreased mobility Declining functional status Weakness generalized Other malaise and fatigue documented in this encounter Additional Health Concerns Infection Onset Date Last Indicated Resolved Time COVID 19 (Confirmed) Comment:[facility] has verified patient has a COVID-19 positive result. A chart review has been completed, EPI PUI has been completed and sent to appropriate Health Dept. [facility] Cvicu Nurse: Doyle 06/12/2021 06/12/2021 07/03/2021 5: 23 AM EST Assessment Noted Time A fall risk assessment has been complete d for the patient 06/12/2021 10:08 AM EST documented as of this encounter Care Teams Base Remover Relationship Specialty Start Date End Date Michele Wright MD [address] [place] [address] PCP - General 10/11/20 Edgar Szymanski MD [address] [facility] [address] [place] [phone] Radiation Oncologist Radiation Therapy 03/14/20 4 Shun Hurst MD [address] [facility] [address] [place] [address] Surgeon Neurosurgery 02/24/21 Divine Carpenter MD [address] [facility] [address] [place] [address] Medical Oncologist Medical Oncology 06/13/21 documented as of this encounter
--- OUTSIDE RECORDS SUMMARY | 2024-05-03 13:43 | XMS_ITS | Encounter Summary ---
Author Organization Healthcare Address [facility] [address] [id number] Care Team Providers Care Private Investigator Name Role Phone Michele Wright MD Primary Care Provider + [phone] Edgar Szymanski MD Unavailable [phone] Shun Hurst MD Unavailable [phone] Reason for Visit * Reason Comments Med Refill Encounter Details Date Type Department Care Team ([facility] Contact Info) Description 04/29/2021 Refill [facility] Head[facility] Neck & Respiratory [address] [place] [address] Divine Carpenter MD 800 [facility] [address] [place] [address] Social History Tobacco Use Types Packs/Day Years [...] have Coronavirus / COVID-19? No / Unsure 04/29/2021 8:55 AM EST documented as of this encounter Plan of Treatment Upcoming Encounters Date Type Department Care Team (Late st Contact Info) Description 07/17/2024 12:30 PM EST Clinical Support [facility] Neck [facility] Respiratory [address] , [address] [place] [address] 07/17/2024 1:30 PM EST Appointment [facility] Radiology [address] [place] [address] 07/20/2024 2:50 PM EST Office Visit [facility] Head[facility] Neck & Respiratory [address] [facility], [address] [place] [address] Divine Carpenter MD [address] [facility] [address] [place] [phone] documented as of this encounter Visit Diagnoses Not on filedocumented in this encounter Additional Health Concerns Assessment Noted Time A fall risk assessment has been complete d for the patient 04/29/2021 8:57 AM EST documented as of this encounter Care Teams Private Investigator Relationship Specialty Start Date End Date Michele Wright MD [address] [place] [address] PCP - General 10/11/20 Edgar Szymanski MD [address] [place] [phone] Radiation Oncologist Radiation Therapy 03/14/20 4 Shun Hurst MD [address] [facility] [address] [place] [phone] Surgeon Neurosurgery 02/24/21 documented as of this encounter
--- OUTSIDE RECORDS SUMMARY | 2024-05-03 13:43 | XMS_ITS | Encounter Summary ---
Author Organization Healthcare Address [address] [id number] Care Team Providers Care Diabetes Physician Name Role Phone Michele Wright MD Primary Care Provider [phone] Edgar Szymanski MD Unavailable [phone] Shun Hurst MD Unavailable [phone] Reason for Visit * Auth/Cert Specialty Diagnoses / Procedures Referred By Ortega harden Referred To Contact Diagnoses Dysphagia Dysphagia [R13.10] Procedures [place] ESOPHAGOSCOPY FLEX BALLOON DILAT <30 MM DIAM [place] ESOP[place]AGOS[place] FLEXIBLE TRANSORAL DIAGNOSTIC [place] ESOPHAGOSCOPY FLEXIBLE TRANSORAL WITH BIOPSY [place] ESOPHAGOSCOPY FLEXIBLE GUIDE WIRE DILATION [place] ESOPHAGOSCOPY DILATE ESOPHAGUS BALLOON 30 MM [place] LARYNGOSCOPY,DIRCT,OP SCOPE,BIOPSY FLEXIBLE ESOPHAGEAL BALLOON DILATION, POSS BIOPSY, POSS SUPER DILATION Gil Hernandez MD [address] [facility] [address] [place] [address] Phone: tel: fax: [facility] [address] [place] [address] Phone: tel: Referral ID Status Reason Start Date Expiration Date Visits Re quested Visits Authorized [id number] 1 1 Encounter Details Date Type Department Care Team (Late st Contact Info) Description 04/10/2021 4:29 PM EST Anesthesia Event [facility] [address] [place] [address] Anuja Smith MD [address] [place] [address] Lisa Boyd MD [address] [place] [id number] Anesthesia Record Procedure Summary Procedure Name Responsible Anesthesiologist Anesthesia Start Time Anesthesia Stop Time FLEXIBLE ESOPHAGEAL BALLOON DILATION, POSS BIOPSY, POSS SUPER DILATION Anuja Smith MD 04/10/21 1629 04/10/21 1711 Events Date Time Event Comment 04/10/2021 1419 1629 An Start 1629 An Start Data 1629 In Room 1634 An Induction The patient was reevaluated immediately before moderate or deep sedation use and before anesthesia induction. 1635 Anesthesia Ready 1647 Proc Start 1707 an stop data 1707 Out of Room 1711 Handoff to Receiving I compl eted my handoff to the receiving clinician during which we: 1. Identified the patient 2. Identified the responsible provider 3. Reviewed the pertinent medical history 4. Discussed the surgical course 5. Reviewed intra-op anesthesia management and issues during anesthesia 6. Set expectations for post-procedure period 7. Allowed opportunity for questions and acknowledgement of understanding. 1711 An Stop Meds Name Total ondansetron (Zofran) injection 2 mg/mL 4 mg fentaNYL (Sublimaze) injection 50 mcg/mL 50 mcg propofol (Diprivan) injection 10 mg/mL 2 0 mg glycopyrrolate (Robinul) injection 0.2 m g/mL 0.8 mg lidocaine PF (Xylocaine-MPF) 2% 4 mL atropine injection 0.4 mg/mL 0.4 mg acetaminophen (Ofirmev) injection 10 mg/ mL 1,000 mg clindamycin (Cleocin) 900 mg in 50 mL (p remix) 900 mg lactated Ringer's infusion 400 mL * Agents Name O2 N2O Air Sevoflurane Inspired Sevoflurane N2O Inspired N2O * Blood No blood administrations on file. Lines, Drains, and Airways Type Details Placement Removal Single Lumen Implantable Port 03/06/21; 1229; Yes; 03/06/21; Other (Comment); Yes; Yes; Left; Chest; Kwabena Waits 03/06/21 1229 by Radha Norwood RN Single Lumen Implantable Port 03/06/21; 1110; No; Yes; Yes; Left; Chest; ARTURO MD; 04/10/21; 17403/06/21 1110 by Kenneth Turcios RN 04/10/21 174 by Lorena Fisher RN Peripheral IV Placement Date: 04/10/21; Placement Time: 1413; Catheter Size: 20 G; Orientation: Posterior, Right; Location: Hand; Site Prep: Chlorhexidine ; Local Anesth: Marion; Technique: Anatomical landmarks; Inserted by: zack adam; Insertion Attempts: 1; Patient Tolerance: Tolerated well; Removal Date: 04/10/21; Removal Time: 174304/10/21 141 by Balbina Silver RN 04/10/21 174 by Lorena Fisher RN documented in this encounter Social History Tobacco Use Types Packs/Day Years Used Date Smoking Tobacco: Former Cigarettes Q uit: 2000 Smokeless Tobacco: Never Alcohol Use Standard Drinks/Week Comments Not Currently 0 (1 standard drink = 0.6 oz pure alcohol) Alcoholic Drinks/day: Quit consuming alcohol in remote past PHQ-2 Answer Date Recorded Patient Health Questionnaire-2 Score 0 04/07/2021 Sex and Gender Information Value Date Recorded [...] have Coronavirus / COVID-19? No / Unsure 04/09/2021 1:42 PM EST documented as of this encounter Miscellaneous Notes * Anesthesia Postprocedure Evaluation - Skyla Almonte CRNA - 04/10/2021 5:34 PM EST Patient: Anibal Barreto Anesthesia Type: general Vitals Value Taken Time BP 159/94 04/10/21 1730 Temp 36.2 ??C (97.2 ??F) 04/10/21 1725 Pulse 58 04/10/21 1733 Resp 13 04/10/21 1733 SpO2 93 % 04/10/21 1733 Vitals shown include unvalidated device data. Anesthesia Post Evaluation Patient location during evaluation: PACU Patient participation: complete - patient cannot participate Level of consciousness: sedated Pain management: adequate (pain score 0-3) Airway patency: tracheostomy Cardiovascular status: acceptable Respiratory status: acceptable Hydration status: acceptable Comments: On O2 via trach collar No complications documented. * Anesthesia Preprocedure Evaluation - Lisa Boyd MD - 04/04/2021 2:01 PM EDT Patient: Anibal Barreto Procedure Information Date/Time: 04/10/21 1420 Procedure: FLEXIBLE ESOPHAGEAL BALLOON DILATION, POSS BIOPSY, POSS SUPER DILATION (N/A ) Location: [facility] OR Surgeons: Gil Hernandez MD history of metastatic laryngeal cancer who is followed by Dr. Correia as well as Dr. Carpenter who is giving him palliative chemotherapy and has been keeping his disease from progression. Relevant Problems Anesthesia 03/06/2021 POrt placment GA 12/2019 EGD with dilatation 10/2019 1. right VATS upper lobe wedge resection 2. 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) GI (+) Chronic GERD (conttrolled with medication) /Renal (within normal limits) Neuro/Psych (+) Status post laryngectomy (-) CVA (cerebral vascular accident) (CMS/HCC) (-) Seizures (CMS/HCC) Pulmonary (-) Asthma (-) Chronic obstructive pulmonary disease (CMS/HCC) (-) Recent URI Other (+) Aphonia (+) Cancer of larynx (CMS/HCC) (last dose of chemo today ( M-f Continuous) and 1 dose infusion every 21 days ) Last radiation 09/2020 to right lung denies any heart or lung problems from tx) (+) Dysphagia, pharyngeal (+) Hx of deep venous thrombosis (approx 2018 on Xeralto x 1 yr now off ) (+) Tracheostomy dependent (CMS/HCC) (-) Arthritis Clinical information reviewed: NPO Status Physical Exam Airway Mallampati: III Mouth opening: normal TM distance: >3 FB Neck ROM: limited Tracheostomy tube present Cardiovascular Rhythm: regular Comments: Bradycardiac Dental (+) edentulous Pulmonary - normal exam Neurological - normal exam Skin - normal exam Musculoskeletal Extremities Anesthesia Plan ASA 3 Anesthesia technique(s) discussed with the patient/family: General Anesthesia plan agreed upon was: general (Discussed with Dr. Marin) Post operative pain planned: discuss with surgical team Induction planned: intravenous Airway management planned: general endotracheal Premedication planned: none Anesthetic plan and risks discussed with patient. Plan discussed with TECHNICAL SUPPORT ASSOCIATE. Additional Equipment Requests documented in this encounter Plan of Treatment Upcoming Encounters Date Type Department Care Team (Late st Contact Info) Description 07/17/2024 12:30 PM EST Clinical Support [facility] [address] [facility] [place] [address] 07/17/2024 1:30 PM EST Appointment [facility] [address] [place] [address] 07/20/2024 2:50 PM EST Office Visit [facility] [address] [facility] [place] [address] Divine Carpenter MD [address] [facility] [address] [place] [address] documented as of this encounter Visit Diagnoses Not on filedocumented in this encounter Administered Medications Inactive Administered Medications - up to 3 most recent administrations Medication Order MAR Action Action Date Dose Rate Site acetaminophen (Ofirmev) injection Intravenous, As needed, Starting on Nenita 04/10/21 at 1644, Until Nenita 04/10/21 at 1734, Routine Given 04/10/2021 4:44 PM EST 1,000 mg atropine injection Intravenous, As needed, Starting on Nenita 04/10/21 at 1638, Until Nenita 04/10/21 at 1734, Routine, Anesthesia Intraprocedure Given 04/10/2021 4:45 PM EST 0.1 mg Given 04/10/2021 4:43 PM EST 0.2 mg Given 04/10/2021 4:38 PM EST 0.1 mg clindamycin (Cleocin) IV solution Intravenous, As needed, Starting on Nenita 04/10/21 at 1639, Until Nenita 04/10/21 at 1734, Routine, Anesthesia Intraprocedure Given 04/10/2021 4:39 PM EST 900 mg fentaNYL (Sublimaze) injection Intravenous, As needed, Starting on Nenita 04/10/21 at 1643, Until Nenita 04/10/21 at 1734, Routine, Anesthesia Intraprocedure Given 04/10/2021 4:58 PM EST 25 mcg Given 04/10/2021 4:54 PM EST 25 mcg glycopyrrolate (Robinul) injection Intravenous, As needed, Starting on Nenita 04/10/21 at 1634, Until Nenita 04/10/21 at 1734, Routine, Anesthesia Intraprocedure Given 04/10/2021 4:34 PM EST 0.8 mg lactated Ringer's infusion Intravenous, Continuous PRN, Starting on Nenita 04/10/21 at 1629, Until Nenita 04/10/21 at 1734, Routine New Bag 04/10/2021 4:29 PM EST lidocaine PF (Xylocaine) 2 % injection Intravenous, As needed, Starting on Nenita 04/10/21 at 1634, Until Nenita 04/10/21 at 1734, Routine, Anesthesia Intraprocedure Given 04/10/2021 4:34 PM EST 4 m L ondansetron (Zofran) injection Intravenous, As needed, Starting on Nenita 04/10/21 at 1651, Until Nenita 04/10/21 at 1734, Routine, Anesthesia Intraprocedure Given 04/10/2021 4:51 PM EST 4 m g propofol (Diprivan) injection Intravenous, As needed, Starting on Nenita 04/10/21 at 1634, Until Nenita 04/10/21 at 1734, Routine, Anesthesia Intraprocedure Given 04/10/2021 4:34 PM EST 20 mg documented in this encounter Additional Health Concerns Assessment Noted Time A fall risk assessment has been complete d for the patient 04/07/2021 1:21 PM EST documented as of this encounter Care Teams Diabetes Physician Relationship Specialty Start Date End Date Michele Wright MD [address] [place] [phone] PCP - General 10/11/20 Edgar Szymanski MD [address] [facility] [address] [place] [address] Radiation Oncologist Radiation Therapy 03/14/20 4 Shun Hurst MD [address] [facility] [address] [place] [address] Surgeon Neurosurgery 02/24/21 documented as of this encounter
--- OUTSIDE RECORDS SUMMARY | 2024-05-03 13:43 | XMS_ITS | Encounter Summary ---
Author Organization Healthcare Address [address] [id number] Care Team Providers Care Ged Preparation Teacher Name Role Phone Michele Wright MD Primary Care Provider [phone] Edgar Szymanski MD Unavailable [phone] Shun Hurst MD Unavailable [phone] Reason for Visit * Auth/Cert Specialty Diagnoses / Procedures Referred By Ortega harden Referred To Contact Diagnoses Dysphagia Dysphagia [R13.10] Procedures MI ESOPHAGOSCOPY FLEX BALLOON DILAT <30 MM DIAM MI ESOPHAGOSCOPY FLEXIBLE TRANSORAL DIAGNOSTIC MI ESOPHAGOSCOPY FLEXIBLE TRANSORAL WITH BIOPSY MI ESOPHAGOSCOPY FLEXIBLE GUIDE WIRE DILATION MI ESOPHAGOSCOPY DILATE ESOPHAGUS BALLOON 30 MM MI LARYNGOSCOPY,DIRCT,OP SCOPE,BIOPSY FLEXIBLE ESOPHAGEAL BALLOON DILATION, POSS BIOPSY, POSS SUPER DILATION Gil Hernandez MD [address] [employer] [address] [address] Phone: tel: fax: [facility] [address] [place] [address] Phone: tel: Referral ID Status Reason Start Date Expiration Date Visits Re quested Visits Authorized [id number] 1 1 Encounter Details Date Type Department Care Team (Late st Contact Info) Description 04/10/2021 10:57 AM EST - 04/10/2021 6:18 PM [facility] Hospital Encounter [facility] [address] [place] [phone] Gil Hernandez MD [address] [address] Dysphagia Discharge Disposition: Home or Self Care Social [...] Sign Reading Time Taken Comments Blood Pressure 159/94 04/10/2021 5:30 PM EST Pulse 59 04/10/2021 5:40 PM EST Temperature 36.2 ??C (97.2 ??F) 04/10/2021 5:25 PM ES T Respiratory Rate 17 04/10/2021 5:40 PM EST Oxygen Saturation 96% 04/10/2021 5:40 PM EST Inhaled Oxygen Concentration - - Weight 94.9 kg (209 lb 3.5 oz) 04/10/2021 1:26 P M EST Height 177.8 cm (5' 10 ) 04/10/2021 1:26 PM EST Body Mass Index 30.02 04/10/2021 1:26 PM EST documented in this encounter Discharge Instructions * Discharge Instructions* Lorena Fisher RN - 04/10/2021 5:04 PM EST Images from the original note were not included. Patient Education Patient Education Esophageal Dilation An??esophageal dilation is a procedure??used to widen a narrowed section of your esophagus. This isthe tube that leads from your throat to your stomach. Narrowing (stricture) of the esophagus can cause problems. These include trouble swallowing. This sheet explains what to expect with esophageal dilation. Why??esophageal dilation is needed Several problems can be treated with??esophageal dilation. They include: ?? Peptic stricture.??This is caused by reflux esophagitis. With this problem, the esophagus is irritated by acid reflux (heartburn). This occurs when acid from your stomach flows back up into the esophagus. Stomach acid damages the lining of the esophagus. This leads to a buildup of scar tissue. As a result, the esophagus is narrowed. ?? Schatzki???s ring.??This is an abnormal ring of tissue. It forms where the esophagus meets the stomach. It can cause trouble swallowing. It can also cause food to get stuck in the esophagus. The cause of this condition is not known. ?? Achalasia.??This condition stops food and liquids from moving into your stomach from the esophagus. It affects the lower esophageal sphincter (LES). The LES is a muscular ring that opens (relaxes)when you swallow. With achalasia, the LES does not relax. This condition can also cause problems with peristalsis. This is the normal muscular action of the esophagus that moves food into the stomach. ?? Eosinophilic esophagitis. This is a redness and swelling (inflammation) in the esophagus. It's caused by an environmental trigger such as a food allergy. It can lead to pain, trouble swallowing, and strictures. ?? Less common causes of stricture. Other causes of stricture include radiation treatment and cancer. Before you have esophageal dilation ?? Tell your provider about any medicines you take. This includes prescription medicines, ewaf-lwh-jhandol medicines, herbs, vitamins, and other supplements. Be sure to mention aspirin or any blood thinners you???re taking. ?? Let your provider know if you need to take antibiotics before dental procedures. You may need totake them before??esophageal dilation as well. ?? Tell your provider about any health conditions you have, such as heart or lung disease. Also mention any allergies to medicines. ?? You???ll need to have an empty stomach for the procedure. Follow your provider???s instructions for not eating and drinking before the procedure. ?? Arrange to have a family member or friend drive you home after the procedure. During the procedure A balloon dilator may be used to widen a stricture in the esophagus. ?? You may be given local anesthesia to numb your throat. You???ll also likely be given medicine torelax you. The procedure takes about??15??minutes. It does not cause trouble breathing. ?? A tube called an endoscope (scope)??is used. This is a narrow tube with a tiny light and camera at the end. The scope is inserted through your mouth and into your esophagus. It lets your provider see inside your esophagus. To help guide your provider, an imaging method called fluoroscopy may also be used. This creates a moving X-ray image on a computer screen.? Next, special tiny tools are carefully guided through your mouth and down into the esophagus. They??widen the stricture and are then removed. Different types of instruments are used. The type useddepends on the size and cause of the stricture. Types include: ? Balloon dilator.??A tiny empty balloon is put into the stricture using an endoscope. The balloon is slowly filled with air. The air is removed from the balloon when the stricture is widened to the right size. Balloon dilators are used to treat many types of strictures. ? Guided wire dilator.??A thin wire is eased down the esophagus. A small tube that???s wider on oneend is guided down the wire. It's put into the stricture to stretch it. These dilators are used to treat all kinds of strictures. ? Bougies.??These are weighted, cone-shaped tubes. Starting with smaller cones, your provider uses increasingly larger cones until the stricture is stretched the right amount. Bougies are often used to treat strictures that are simple (short, straight, and not very narrow). After the procedure ?? You???ll be watched closely until your provider says you???re ready to go home. You???ll need tohave a friend or family member drive you home. ?? You may have a sore throat for the rest of the day. ?? You may have pain behind your breastbone for a short time afterwards. ?? You can start drinking fluids again after the numbness in your throat goes away. You can resume eating the??same day or the??next day. Risks and possible complications Risks and possible complications for esophageal dilation include: ?? Infection ?? A tear or hole in the esophagus lining, causing bleeding and possibly needing surgery to fix ?? Risks of anesthesia Follow-up You may need to have the procedure repeated one or more times. This depends on the cause and extentof the narrowing. Repeat procedures??can allow the dilation to take place more slowly. This reducesthe risks of the procedure. If your stricture was caused by reflux esophagitis, you???ll likely need to take medicine to treat that condition. Your provider will tell you more. When to call your provider Call your healthcare provider right away if you have any of the following after the procedure: ?? Fever of 100.4??F (38.0??C) or higher, or as directed by your provider ?? Chest pain ?? Trouble swallowing ?? Vomiting blood or material that looks like coffee grounds ?? Bleeding ?? Black, tarry, or bloody??stools [employer] last reviewed this educational content on 10/29/2018 ?? 7643-3803 [employer]. All rights reserved. This information is not intended as a substitute for professional medical care. Always follow your healthcare professional's instructions. Discharge Instructions: After Your Surgery You???ve just had surgery. During surgery, you were given medicine called anesthesia to keep you relaxed and free of pain. After surgery, you may have some pain or nausea. This is common. Here are some tips for feeling better and getting well after surgery. Stay on schedule with your medicine. Going home Your healthcare provider will show you how to take care of yourself when you go home. He or she will also answer your questions. Have an adult family member or friend drive you home. For the first 24hours after your surgery: ?? Don't drive or use heavy equipment. ?? Don't make important decisions or sign legal papers. ?? Don't drink alcohol. ?? Have someone stay with you, if needed. He or she can watch for problems and help keep you safe. Be sure to go to all follow-up visits with your healthcare provider. And rest after your surgery for as long as your healthcare provider tells you to. Coping with pain If you have pain after surgery, pain medicine will help you feel better. Take it as told, before pain becomes severe. Also, ask your healthcare provider or pharmacist about other ways to control pain. This might be with heat, ice, or relaxation. And follow any other instructions your surgeon or nurse gives you. Tips for taking pain medicine To get the best relief possible, remember these points: ?? Pain medicines can upset your stomach. Taking them with a little food may help. ?? Most pain relievers taken by mouth need at least 20 to 30 minutes to start to work. ?? Don't wait till your pain becomes severe before you take your medicine. Try to time your medicine so that you can take it before starting an activity. This might be before you get dressed, go for a walk, or sit down for dinner. ?? Constipation is a common side effect of pain medicines. Call your healthcare provider before taking any medicines such as laxatives or stool softeners to help ease constipation. Also ask if you should skip any foods. Drinking??lots of fluids and??eating foods??such as fruits and vegetables that are high in fiber can also help. Remember, don't take laxatives unless your surgeon has prescribed them. ?? Drinking alcohol and taking pain medicine can cause dizziness and slow your breathing. It can even be deadly. Don't drink alcohol while taking pain medicine. ?? Pain medicine can make you react more slowly to things. Don't drive or run machinery while taking pain medicine. Your healthcare provider??may tell you to take acetaminophen to help ease your pain. Ask him or herhow much you are supposed to take each day. Acetaminophen or other pain relievers may interact withyour prescription medicines or other oban-hbi-esvzcrj (OTC) medicines. Some prescription medicines have acetaminophen and other ingredients.??Using both prescription and OTC acetaminophen??for pain??can cause you to overdose. Read??the labels on your OTC medicines??with care. This will help you??toclearly know the list of ingredients, how much to take, and any??warnings. It may also help you nottake too much??acetaminophen.??If you have questions or don't understand the information, ask your pharmacist or healthcare provider to explain it to you before you take the OTC medicine. Managing nausea Some people have an upset stomach after surgery. This is often because of anesthesia, pain, or painmedicine, or the stress of surgery. These tips will help you handle nausea and eat healthy foods asyou get better. If you were on a special food plan before surgery, ask your healthcare provider if you should follow it while you get better. These tips may help: ?? Don't push yourself to eat. Your body will tell you when to eat and how much. ?? Start off with clear liquids and soup. They are easier to digest. ?? Next try semi-solid foods, such as mashed potatoes, applesauce, and gelatin, as you feel ready. ?? Slowly move to solid foods. Don???t eat fatty, rich, or spicy foods at first. ?? Don't force yourself to have 3 large meals a day. Instead eat smaller amounts more often. ?? Take pain medicines with a small amount of solid food, such as crackers or toast, to prevent nausea. When to call your healthcare provider Call your healthcare provider if: ?? You still have intolerable pain an hour after taking medicine. The medicine may not be strong enough. ?? You feel too sleepy, dizzy, or groggy. The medicine may be too strong. ?? You have side effects such as nausea or vomiting, or skin changes such as rash, itching, or hives.??Your healthcare provider may suggest other medicines to control side effects. Rash, itching, or hives may mean you have an allergic reaction. Report this right away. If you havetrouble breathing or facial swelling, call 911 right away. If you have obstructive sleep apnea You were given anesthesia medicine during surgery to keep you comfortable and free of pain. After surgery, you may have more apnea spells because of this medicine and other medicines you were given. The spells may last longer than usual.?? At home: ?? Keep using the continuous positive airway pressure (CPAP) device when you sleep. Unless your healthcare provider tells you not to, use it when you sleep, day or night. CPAP is a common device usedto treat obstructive sleep apnea. ?? Talk with your provider before taking any pain medicine, muscle relaxants, or sedatives. Your provider will tell you about the possible dangers of taking these medicines. [employer] last reviewed this educational content on 07/29/2018 ?? [id number] [employer]. All rights reserved. This information is not intended as a substitute for professional medical care. Always follow your healthcare professional's instructions. documented in this encounter Medications at Time of Discharge fluconazole (Diflucan) 100 MG tablet Take 1 tablet (100 mg total) by mouth 1 (one) time each day for 14 days. Take 200 mg the first day, then 100 mg each day after 15 tablet 04/10/2021 04/24/2021 ALPRAZolam (Xanax) 1 MG tablet 1 tab(s) orally 2 times a day, As Needed 09/02/2020 06/12/2021 amLODIPine-atorv astatin (Caduet) 10-10 MG tablet Take 1 tablet by mouth 1 (one) time each day. 06/12/2021 gabapentin (Neurontin) 600 MG tablet Take 1 tablet (600 mg total) by mouth 4 (four) times a day. 120 tablet 1 11/25/2020 04/21/2021 levothyroxine (Synthroid, Levoxyl) 150 MCG tablet TAKE 1 TABLET DAILY. 03/29/2018 06/12/2021 lisinopril 10 MG tablet Take 1 tablet (10 mg total) by mouth 1 (one) time each day. 30 tablet 01/27/2021 04/21/2021 loratadine (Claritin) 10 MG tablet TAKE 1 TABLET BY MOUTH EVERY DAY 30 tablet 2 04/02/2021 04/21/2021 metoprolol tartrate (Lopressor) 50 MG tablet 1 tab(s) orally 2 times a day 06/12/2021 morphine CR (MS Contin) 60 MG 12 hr tablet Do not crush, chew, or split. 06/12/2021 omeprazole OTC (PriLOSEC OTC) 20 MG EC [...] Miscellaneous Notes * Anesthesia PACU Signout - Anuja Smith MD - 04/10/2021 5:50 PM EST Patient: Anibal Barreto Anesthesia Type: general Vitals Value Taken Time BP 159/94 04/10/21 1730 Temp 36.2 ??C (97.2 ??F) 04/10/21 1725 Pulse 59 04/10/21 1740 Resp 17 04/10/21 1740 SpO2 96 % 04/10/21 1740 Anesthesia PACU Signout Patient location during evaluation: PACU Level of consciousness: baseline Pain management: adequate (pain score 0-3) Airway patency: natural airway Hydration status: acceptable PONV: none Cardiovascular status: acceptable Respiratory status: acceptable Discharge Disposition: home * Op Note - Gil Hernandez MD - 04/10/2021 4:47 PM EST Operative Note: FLEXIBLE ESOPHAGEAL BALLOON DILATION, POSS BIOPSY, POSS SUPER DILATION Date: 04/11/21 Location: [facility] OR Name: Anibal Barreto, : 1965, Diagnoses: Pre-op Diagnosis * Dysphagia [R13.10] Post-op Diagnosis * Dysphagia [R13.10] Procedure(s): DILATION, ESOPHAGUS MI ESOPHAGOSCOPY FLEX BALLOON DILAT <30 MM DIAM MI LARYNGOSCOPY,DIRCT,OP SCOPE,BIOPSY MI ESOPHAGOSCOPY FLEX BALLOON DILAT <30 MM DIAM Attending Surgeon(s): * Gil Hernandez - Primary Swimming Coach(s): none Anesthesia: * No anesthesia type entered * ASA: III Blood Administration: Blood Product Administration History None Estimated Blood Loss: Minimal Drains: * None in log * Specimen: Specimens ID Source Type Tests Collected By Collected At Frozen? Priority Lab ID 1 Oropharynx Tissue ?? SURGICAL PATHOLOGY EXAM Gil Hernandez MD 04/10/21 [id number] No [id number] Description: POSTERIOR OROPHARNGERAL WALL Findings: Fungal infection appreciated at the level of the neopharynx down to the level of the TEP.This was biopsied to rule out malignancy and confirm fungal presence. Dilated to 18mm balloon. Indications: Anibal Barreto is an 55 y.o. male who is having surgery for Dysphagia [R13.10]. He is a post laryngectomy patient who I know well who has been doing all of his nutrition PO, but has been getting worse in terms of his swallowing solid foods. Consent obtained to do esophagoscopy and dilation to open his neopharynx up for improving dysphagia. Narrative: Patient brought into the operating room and general anesthesia was administered. Patient rotated 90degrees away from anesthesia. Able to place Dedo laryngoscope down to the neopharyngeal introitus and suspended. TNE scope able to visualize the rest of the esophagus. Candidal infection appreciated at the level of the introitus down to the level of the TEP with associated erythema. This was also the place of stenosis. No other lesions identified. Stomach was clear and distal esophagus without lesions. No hiatal hernia. Biopsy taken through the Dedo with the help of the operative telescope withcupped forceps and sent for permanent to confirm fungal infection and also to rule out malignancy. Esophageal balloon then used to dilate up to 18mm in size. Small amount of self-limited bleeding appreciated after dilating. Dedo then removed and woke up from anesthesia without problems. Complications: None; patient tolerated the procedure well. Submitted by: Gil Hernandez MD - 04/11/2021 - 8:22 AM * Interval H&P Note - Dave Green MD - 04/10/2021 1:20 PM EST H&P reviewed. The patient was examined and there are no changes to the H&P. Source Note - Gil Hernandez MD - 04/02/2021 9:10 AM EDT I had the pleasure of seeing Anibal Barreto today, who is a 55 y.o. male that returns to the clinic for follow-up. He is a well-known patient to me with a history of metastatic laryngeal cancerwho is followed by Dr. Correia as well as Dr. Carpenter who is giving him palliative chemotherapy and has been keeping his disease from progression. His swallowing has been worsening. Has done everything PO, but can not get anything down thicker than a pea. He denies any problems with TEP as he now puts holes higher up on his jessica tube. He denies any leakage. Denies any problems with liquids. His last dilation was back in 12/[address] Correia and before that it was a year prior with me. Visit Vitals BP 130/72 Pulse 52 Ht 1.778 m (5' 10 ) Wt 98.9 kg (218 lb) BMI 31.28 kg/m?? Smoking Status Former Smoker BSA 2.21 m?? Allergies Allergen Reactions ??? Cetuximab Anaphylaxis [...] are appreciated. The trachea is in midline. Circulatory: regular rate and rhythm, pulses 2+ bilaterally Pulmonary: no wheezing, no stridor Neuro: CN II-XII intact, gait normal A/P Consented today for another esophagoscopy with dilation, possible biopsy, possible super dilation. documented in this encounter Plan of Treatment Upcoming Encounters Date Type Department Care Team (Late st Contact Info) Description 07/17/2024 12:30 PM EST Clinical Support [facility] [address] [facility] [place] [address] 07/17/2024 1:30 PM EST Appointment [facility] [address] [place] [address] 07/20/2024 2:50 PM EST Office Visit [facility] [address] [facility] [place] [address] Divine Carpenter MD [address] [facility] [address] [place] [address] documented as of this encounter Procedures Procedure Name Priority Date/Time Associated Diagnosis Comments SURGICAL PATHOLOGY EXAM Routine 04/10/2021 4:56 PM EST Dysphagia MI ESOPHAGOSCOPY FLEX BALLOON DILAT <30 MM DIAM 04/10/2021 4:24 PM EST Dysphagia documented in this encounter Results * Surgical Pathology Exam (04/10/2021 4:56 PM EST) Case Report Surgical Pathology ?Case: [id number] ? Authorizing Provider: ??Gil Hernandez MD ? Collected: ? 04/10/2021 1656 ? [facility]ing Location: ? [facility] ??Received: ?04/11/2021 0710 ? Surgery ? Pathologist: ? Heber Watters DO ? Specimen: ?Oropharynx, POSTERIOR OROPHARNGERAL WALL ? 1 5:02 PM EST [facility] Final Diagnosis A. OROPHARYNX, POSTERIOR WALL, BIOPSY: - EROSION WITH MICROABSCESSES - GRAM POSITIVE BACILLI PRESENT ON GRAM STAIN - RARE FUNGAL ELEMENTS PRESENT ON GMS STAIN - NEGATIVE FOR CARCINOMA 1 5:02 PM EST [facility] Clinical Information Pre-op diagnosis: Dysphagia [R13.10] 1 5:02 PM EST [facility] Special and Immunohistochemical Stains Special Stain: A1-2 GMS A1-3 Gram (Brown & Brenn) All controls show appropriate reactivity. All immunohistochemi stry, in situ hybridization, and histochemical tests were developed by and are performed at the [facility], [address] [facility], [facility], [place] [address]. All tests reported here, except those addressing HER2 (breast) and PD-L1 expression as predictive markers, have not been cleared by or approved by the US Food and Drug Administration (FDA). The FDA has determined that such clearance or approval is not necessary. The laboratory is regulated under CLIA as qualified to perform high-complexity testing. The tests are used for clinical purposes. They should not be regarded as investigational or for research. This assay has not been validated on decalcified tissues. Results should be interpreted with caution given the likelihood of false negativity on decalcified specimens. 1 5:02 PM [facility] Gross Description A. POSTERIOR OROPHARNGERAL WALL The specimen is received in formalin labeled posterior oropharyngeal wall , and consists of two white-vang tissue fragments measuring 0.5 cm each in greatest dimension. Entirely submitted in cassette A1. Bella Roe 1 5:02 PM [facility] Note: A resident was involved in the service. I attest I examined the relevant preparations for the specimens and confirmed the diagnosis or interpretation. 1 5:02 PM [facility] Tissue Oropharyngeal structure / Unknown 04/10/2021 4:56 PM EST 04/11/2021 7:10 AM EST Comment:Pre-op diagnosis: Dysphagia [R13.10] Gil Hernandez MD LAB PATHOLOGY ORDERABLES Final R esult [facility] [address] [place] [address] documented in this encounter Visit Diagnoses Diagnosis Dysphagia documented in this encounter Administered Medications Inactive Administered Medications - up to 3 most recent administrations Medication Order MAR Action Action Date Dose Rate Site fentaNYL (Sublimaze) injection 50 mcg 50 mcg, Intravenous, Once as needed, 2 doses, Starting on Nenita 04/10/21 at 1701, Until Nenita 04/10/21 at 2020, Routine, Recovery (Phase I only), severe pain, pain score of 5 to 8 out of 10 lactated Ringer's infusion 100 mL/hr, Intravenous, Once, 1 dose, On Nenita 04/10/21 at 1400, Routine New Bag 04/10/2021 2:14 PM EST 100 mL/hr 100 m L/hr lactated Ringer's infusion 100 mL/hr, Intravenous, Continuous, Starting on Nenita 04/10/21 at 1730, Until Nenita 04/10/21 at 2020, Routine naloxone (Narcan) injection 0.4 mg 0.4 mg, Intravenous, As needed, Starting on Nenita 04/10/21 at 1701, Until Nenita 04/10/21 at 2020, Routine, Recovery (Phase I only), respiratory depression ondansetron (Zofran) injection 4 mg 4 mg, Intravenous, Once as needed, 1 dose, Starting on Nenita 04/10/21 at 1701, Until Nenita 04/10/21 at 2020, Routine, Recovery (Phase I only), nausea, vomiting oxyCODONE (Roxicodone) immediate release tablet 5 mg 5 mg, Oral, Once as needed, 1 dose, Starting on Nenita 04/10/21 at 1701, Until Nenita 04/10/21 at 2020, Routine, Recovery (Phase I only), moderate pain, > 2 out of 10 sodium chloride 0.9 % flush 10 mL 10 mL, Intravenous, Every 8 hours PRN, Starting on Nenita 04/10/21 at 1337, Until Nenita 04/10/21 at 2020, Routine, Holding - Preprocedure, line care documented in this encounter Active and Recently Administered Medications Times are shown in EST. Scheduled Medication Order 04/08/2021 04/09/2021 04/10/2021 lactated Ringer's infusion (COMPLETED) 100 mL/hr, Intravenous, Once, 1 dose, On Nenita 04/10/21 at 1400, Routine 1414 (New Bag - Prov ider: Balbina Silver RN) Continuous Medication Order 04/08/2021 04/09/2021 04/10/2021 lactated Ringer's infusion 100 mL/hr, Intravenous, Continuous, Starting on Nenita 04/10/21 at 1730, Until Nenita 04/10/21 at 2020, Routine 1730 (Canceled Entry - Provider: Automatic Discharge Provider - Comment: Automatically canceled at discontinue of medication order) PRN Medication Order 04/08/2021 04/09/2021 04/10/2021 fentaNYL (Sublimaze) injection 50 mcg 50 mcg, Intravenous, Once as needed, 2 doses, Starting on Nenita 04/10/21 at 1701, Until Nenita 04/10/21 at 2020, Routine, Recovery (Phase I only), severe pain, pain score of 5 to 8 out of 10 naloxone (Narcan) injection 0.4 mg 0.4 mg, Intravenous, As needed, Starting on Nenita 04/10/21 at 1701, Until Nenita 04/10/21 at 2020, Routine, Recovery (Phase I only), respiratory depression ondansetron (Zofran) injection 4 mg 4 mg, Intravenous, Once as needed, 1 dose, Starting on Nenita 04/10/21 at 1701, Until Nenita 04/10/21 at 2020, Routine, Recovery (Phase I only), nausea, vomiting oxyCODONE (Roxicodone) immediate release tablet 5 mg 5 mg, Oral, Once as needed, 1 dose, Starting on Nenita 04/10/21 at 1701, Until Nenita 04/10/21 at 2020, Routine, Recovery (Phase I only), moderate pain, > 2 out of 10 oxymetazoline (Afrin) 0.05 % nasal spray (CANCELED) As needed, Starting on Nenita 04/10/21 at 1642, Until Nenita 04/10/21 at 1709, Routine, Intraprocedure 1642 (Given - Provid er: Gil Hernandez MD) sodium chloride 0.9 % flush 10 mL(Linked Group 1) 10 mL, Intravenous, Every 8 hours PRN, Starting on Nenita 04/10/21 at 1337, Until Nenita 04/10/21 at 2020, Routine, Holding - Preprocedure, line care Linked Groups Order Group 1: Insert peripheral IV (CANCELED) Once, On Nenita 04/10/21 at 1338, For 1 occurrence, Holding - Preprocedure And Saline lock IV (CANCELED) Once, On Nenita 04/10/21 at 1338, For 1 occurrence, Holding - Preprocedure And sodium chloride 0.9 % flush 10 mLJump to med 10 mL, Intravenous, Every 8 hours PRN, Starting on Nenita 04/10/21 at 1337, Until Nenita 04/10/21 at 2020, Routine, Holding - Preprocedure, line care documented in this encounter Additional Health Concerns Assessment Noted Time A fall risk assessment has been complete d for the patient 04/07/2021 1:21 PM EST documented as of this encounter Care Teams Ged Preparation Teacher Relationship Specialty Start Date End Date Michele Wright MD [address] [place] [address] PCP - General 10/11/20 Edgar Szymanski MD [address] [place] [address] Radiation Oncologist Radiation Therapy 03/14/20 4 Shun Hurst MD [address] [place] [address] Surgeon Neurosurgery 02/24/21 documented as of this encounter
--- OUTSIDE RECORDS SUMMARY | 2024-05-03 13:43 | XMS_ITS | Encounter Summary ---
Author Organization Healthcare Address [address] [place] [address] Care Team Providers Care Compensation And Benefits Administrator Name Role Phone Michele Wright MD Primary Care Provider + [phone] Edgar Szymanski MD Unavailable [phone] Shun Hurst MD Unavailable [phone] Encounter Details Date Type Department Care Team (Latest Contact Info) Description 05/03/2021 Travel Social History Tobacco Use Types Packs/Day [...] have Coronavirus / COVID-19? No / Unsure 05/03/2021 2:17 PM EST documented as of this encounter Plan of Treatment Upcoming Encounters Date Type Department Care Team ([facility] st Contact Info) Description 07/17/2024 12:30 PM EST Clinical Support [facility] [address] [facility], [address]nd [place] [address] 07/17/2024 1:30 PM EST Appointment [facility] G Radiology [address] [place] [phone] 07/20/2024 2:50 PM EST Office Visit [facility] [address] [facility], [address] [place] [phone] Divine Carpenter MD [address] [facility] [address] [place] [address] documented as of this encounter Visit Diagnoses Not on filedocumented in this encounter Additional Health Concerns Assessment Noted Time A fall risk assessment has been complete d for the patient 05/03/2021 2:18 PM EST documented as of this encounter Care Teams Compensation And Benefits Administrator Relationship Specialty Start Date End Date Michele Wright MD [address] [place] [id number] PCP - General 10/11/20 Edgar Szymanski MD [address] [facility] [address] [place] [phone] Radiation Oncologist Radiation Therapy 03/14/20 4 Shun Hurst MD [address] [facility] [address] [place] [phone] Surgeon Neurosurgery 02/24/21 documented as of this encounter
--- OUTSIDE RECORDS SUMMARY | 2024-05-03 13:43 | XMS_ITS | Encounter Summary ---
Author Organization [facility] Address [address] [place], [place] [id number] Care Team Providers Care Performance Test Architect Name Role Phone Michele Wright MD Primary Care Provider + [phone] Edgar Szymanski MD Unavailable [phone] Shun Hurst MD Unavailable [phone] Encounter Details Date Type Department Care Team (Late st Contact Info) Description 04/21/2021 Orders Only [facility] [address] [place] [phone] Divine Carpenter MD [address] [facility] [address] [place] [address] Cancer of larynx (CMS/HCC) (Primary [...] have Coronavirus / COVID-19? No / Unsure 04/21/2021 8:53 AM EST documented as of this encounter Plan of Treatment Upcoming Encounters Date Type Department Care Team (Late st Contact Info) Description 07/17/2024 12:30 PM EST Clinical Support [facility] [address] [facility], [address]nd [place] [phone] 07/17/2024 1:30 PM EST Appointment P[facility] G Radiology [address] [place] [address] 07/20/2024 2:50 PM EST Office Visit [facility] [address] [facility], [address]nd [place] [address] Divine Carpenter MD [address] [facility] [address] [place] [address] documented as of this encounter Results * (ABNORMAL) CBC and Differential (05/08/2021 11:49 AM EST) WBC Count 3.76 3.70 - 10.30 10*3/uL LAB HEMATOLOGY METHOD 05/08/2021 3:36 PM EST [facility] RBC Count 3.23(L) 4.60 - 6.10 10*6/uL LAB HEMATOLOGY METHOD 05/08/2021 3:36 PM EST [facility] HGB 9.7(L) 13.7 - 17.5 g/dL LAB HEMATOLOGY METHOD 05/08/2021 3:36 PM EST [facility] HCT 29.4(L) 40.0 - 51.0 % LAB HEMATOLOGY METHOD 05/08/2021 3:36 PM EST [facility] Platelet Count 82(L) 155 - 369 10*3/uL LAB HEMATOLOGY METHOD 05/08/2021 3:36 PM EST [facility] MCV 91 79 - 98 fL LAB HEMATOLOGY METHOD 05/08/2021 3:36 PM EST [facility] MCH 30.0 26.0 - 32.0 pg LAB HEMATOLOGY METHOD 05/08/2021 3:36 PM EST [facility] MCHC 33.0 30.7 - 35.5 g/dL LAB HEMATOLOGY METHOD 05/08/2021 3:36 PM [facility] RDW 16.5(H) 11.5 - 14.5 % LAB HEMATOLOGY METHOD 05/08/2021 3:36 PM [facility] MPV 11.4 8.8 - 12.5 fL LAB HEMATOLOGY METHOD 05/08/2021 3:36 PM [facility] nRBC 0.0 <=0.0 per 100 WBCs LAB HEMATOLOGY METHOD 05/08/2021 3:36 PM [facility] Neutrophils % 74.0 % LAB HEMATOLOGY METHOD 05/08/2021 3:36 PM [facility] Lymphocytes % 13.0 % LAB HEMATOLOGY METHOD 05/08/2021 3:36 PM [facility] Monocytes % 12.0 % LAB HEMATOLOGY METHOD 05/08/2021 3:36 PM [facility] Eosinophils % 0.0 % LAB HEMATOLOGY METHOD 05/08/2021 3:36 PM [facility] Basophils % 0.0 % LAB HEMATOLOGY METHOD 05/08/2021 3:36 PM [facility] Immature Granulocytes % 1.0 % LAB HEMATOLOGY METHOD 05/08/2021 3:36 PM [facility] Neutrophils Absolute 2.75 1.60 - 6.10 10*3/uL LAB HEMATOLOGY METHOD 05/08/2021 3:36 PM [facility] Lymphocytes Absolute 0.50(L) 1.20 - 3.90 10*3/uL LAB HEMATOLOGY METHOD 05/08/2021 3:36 PM [facility] Monocytes Absolute 0.46 0.30 - 0.90 10*3/uL LAB HEMATOLOGY METHOD 05/08/2021 3:36 PM [facility] Eosinophils Absolute 0.01 0.00 - 0.50 10*3/uL LAB HEMATOLOGY METHOD 05/08/2021 3:36 PM [facility] Basophils Absolute 0.01 0.00 - 0.10 10*3/uL LAB HEMATOLOGY METHOD 05/08/2021 3:36 PM [facility] Immature Granulocytes Absolute 0.03 0.00 - 0.06 10*3/uL LAB HEMATOLOGY METHOD 05/08/2021 3:36 PM [facility] Blood Blood sample taken from central line / Unknown (Port) Long-term Catheter / Unknown 05/08/2021 11:49 AM EST 05/08/2021 12:10 PM [facility] - 05/08/2021 3:36 PM EST Therapeutic decision making should be based on absolute values, rather than percentages. Divine Carpenter MD LAB BLOOD ORDERABLES Final R esult Performing Organization Address [facility] Co de Phone Number [facility] [address] [place] [address] * (ABNORMAL) Thyroid Stimulating Hormone, Plasma (TSH) (05/08/2021 11:48 AM EST) Thyroid Stimulating Hormone, Plasma 7.79(H) 0.40 - 4.20 uIU/mL 05/08/2021 12:50 PM EST [facility] Blood Blood sample taken from central line / Unknown (Port) Long-term Catheter / Unknown 05/08/2021 11:48 AM EST 05/08/2021 12:10 PM EST Divine Carpenter MD LAB BLOOD ORDERABLES Final R esult Performing Organization Address [facility] Co de Phone Number [facility] [address] [place] [address] * (ABNORMAL) Comprehensive Metabolic Panel, Plasma (05/08/2021 11:48 AM EST) Glucose, Plasma 84 74 - 99 mg/dL 05/08/2021 12:50 PM EST [facility] BUN, Plasma 10 7 - 21 mg/dL 05/08/2021 12:50 PM EST [facility] Creatinine, Plasma 0.62(L) 0.80 - 1.30 mg/dL 05/08/2021 12:50 PM EST [facility] BUN/Creatinine Ratio 16 05/08/2021 12:50 PM EST [facility] Sodium, Plasma 140 136 - 145 mmol/L 05/08/2021 12:50 PM EST [facility] Potassium, Plasma 3.9 3.7 - 4.8 mmol/L 05/08/2021 12:50 PM EST [facility] Chloride, Plasma 103 97 - 107 mmol/L 05/08/2021 12:50 PM EST [facility] CO2, Plasma 28 22 - 29 mmol/L 05/08/2021 12:50 PM EST [facility] Anion Gap 9 6 - 16 mmol/L 05/08/2021 12:50 PM EST [facility] Total Calcium, Plasma 8.7(L) 8.9 - 10.2 mg/dL 05/08/2021 12:50 PM EST [facility] Total Protein 6.1(L) 6.3 - 7.9 g/dL 05/08/2021 12:50 PM EST [facility] Albumin, Plasma 3.8 3.5 - 5.2 g/dL 05/08/2021 12:50 PM EST [facility] AST, Plasma 16 12 - 40 U/L 05/08/2021 12:50 PM EST [facility] ALT, Plasma 13 11 - 41 U/L 05/08/2021 12:50 PM EST [facility] Alkaline Phosphatase, Plasma 71 40 - 115 U/L 05/08/2021 12:50 PM EST [facility] Total Bilirubin, Plasma 0.5 0.2 - 1.1 mg/dL 05/08/2021 12:50 PM EST [facility] eGFR >60 >60 mL/min/1.7 3m*2 05/08/2021 12:50 PM EST [facility] Comment:eGFR = estimated GFR ; [...] >60 mL/min/1.7 3m*2 05/08/2021 12:50 PM EST [facility] Comment:eGFR = estimated GFR ; [...] ORDERABLES Final R esult [facility] [address] [place] [address] documented in this encounter Visit Diagnoses Diagnosis 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, unspecified site documented in this encounter Additional Health Concerns Assessment Noted Time A fall risk assessment has been complete d for the patient 04/21/2021 9:56 AM EST documented as of this encounter Care Teams Performance Test Architect Relationship Specialty Start Date End Date Michele Wright MD [address] [place] [address] PCP - General 10/11/20 Edgar Szymanski MD [address] [facility] [address] [place] [phone] Radiation Oncologist Radiation Therapy 03/14/20 4 Shun Hurst MD [address] [facility] [address] [place] [address] Surgeon Neurosurgery 02/24/21 documented as of this encounter
--- OUTSIDE RECORDS SUMMARY | 2024-05-03 13:43 | XMS_ITS | Encounter Summary ---
Author Organization [facility] Address [address] [place] [address] Care Team Providers Care Fact Checker Name Role Phone Michele Wright MD Primary Care Provider + [phone] Edgar Szymanski MD Unavailable [phone] Shun Hurst MD Unavailable [phone] Reason for Referral * Imaging (Routine) - Closed Specialty Diagnoses / Procedures Referred By Contac t Referred To Contact Radiology Diagnoses Cancer of larynx (CMS/HCC) Procedures FL Modified Barium Swallow Lubna Correia MD Referral ID Status Reason Start Date Expiration Date V isits Requested Visits Authorized [id number] Closed Perform Procedure 03/03/2021 09/02/2022 1 1 Reason for Visit * Imaging (Routine) - Closed Specialty Diagnoses / Procedures Referred By Ortega harden Referred To Contact Radiology Diagnoses Cancer of larynx (CMS/HCC) Procedures FL Modified Barium Swallow Lubna Correia MD Referral ID Status Reason Start Date Expiration Date V isits Requested Visits Authorized [id number] Closed Perform Procedure 03/03/2021 09/02/2022 1 1 Encounter Details Date Type Department Care Team (Latest Contact Info) Description 04/07/2021 10:26 AM EST - 04/07/2021 11:59 PM EST Hospital Encounter [facility] [address] [place] [address] Vicky Ariza Dysphagia, unspecified type (Primary Dx); Cancer of larynx (CMS/HCC) Discharge Disposition: Home [...] AM EST documented as of this encounter Medications at [...] mouth 1 (one) time each day. 06/12/2021 diphenoxylate-at ropine (Lomotil) 2.5-0.025 MG tablet Take 1 tablet by mouth 4 (four) times a day if needed for diarrhea. 90 tablet 2 03/10/2021 04/10/2021 gabapentin (Neurontin) 600 MG tablet Take 1 tablet (600 mg total) by mouth 4 (four) times a day. 120 tablet 1 11/25/2020 04/21/2021 levothyroxine (Synthroid, Levoxyl) 150 MCG tablet TAKE 1 TABLET DAILY. 03/29/2018 06/12/2021 lisinopril 10 MG tablet Take 1 tablet (10 mg total) by mouth 1 (one) time each day. 30 tablet 01/27/2021 04/21/2021 loperamide (Imodium A-D) 2 MG tablet Take 1 tablet (2 mg total) by mouth 4 (four) times a day if needed for diarrhea. 90 tablet 3 03/10/2021 04/10/2021 loratadine (Claritin) 10 MG tablet TAKE 1 [...] * Progress Notes - Vicky Ariza - 04/07/2021 10:45 AM EST [facility] Videofluoroscopic Swallow Study ?? Date of Service:??04/07/2021 Referring Provider: Lubna Correia,??MD Diagnosis:??Dysphagia, unspecified (R13.10), Head and neck cancer (C76.0) Services Provided:??Videofluoroscopic Swallow Study??(89299) ?? Results: ?? There is near majority (~80%) retention of pudding consistency within the neopharynx, eliciting Mr. Barreto' symptoms. Multiple large liquid washes were required to clear the bolus. No extravasation noted during the course of this study. ?? Narrowing of the neopharynx/esophageal anastamosis at C4-C5 results in retention of the pudding consistency and slow clearance of liquid consistencies. ?? Please see radiology report regarding esophageal function. It was noted that there was delayed opening at the GE junction. ?? Recommendations:? Follow up with Dr. Correia regarding MBSS results ?? Follow up with Dr. Hernandez for scheduled esophageal dilation ?? Consider GI referral for evaluation of esophageal findings ? 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 Barreto was taken to the ORfor a right wedge VATS resection. Pathology revealed SCCa. Mr. Barreto subsequently completed SBRT x 6 on 03/29/2020. He continues to receive palliative chemotherapy with Dr. Carpenter to prevent disease progression. Mr. Barreto has had ongoing issues with dysphagia and has undergone several esophageal dilation procedures, most recently in 12/2019. He uses TEP speech successfully and his prosthesis was last changed on 03/03/2021. Chief Complaint:??On this day, Mr. Barreto endorses progressively worsening dysphagia. He reports it feels tight and like he needs another dilation. He also reports intermittent nasal regurgitationwith thin liquids. He is eating minimal solid foods and reports these must be very small bites and chewed to a fine consistency. He reports solids often get stuck and he has to bring them back up andspit them out. He denies recent PNA. ? Pain:??0/10 ?? Weight: -14 pounds in the past three weeks? Current Diet:??Minimal soft solids with thin liquids? Respiration:??Chronic dyspnea secondary to lung metastases ?? Functional Oral Intake Scale:??(4) Total oral intake of a single consistency ?? Assessment:?The swallow study procedure was completed in cooperation with the radiology department. For complete details please also refer to the radiologist???s report.??The patient was viewed in??lateral??and A/P??planes. Thin and thick nectar Varibar and??Varibar paste??were administered. declined nii cracker consistency.? Oral Mechanism Assessment:??Reduced lingual ROM secondary to history of BOT resection?? Dentition:??Edentulous Swallowing Mechanism Static View:??Anatomical changes consistent with laryngectomy; surgical clips present Oral Preparatory/Oral Stage:??Within normal limits with exception of reduced mastication of regularsolid consistencies. 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 Liquid bolus flow through the neopharynx is slow but functional. Retrograde flow noted with thin liquids into the neopharynx. There is near majority (~80%) retention of pudding consistency within the neopharynx. Multiple large liquidwashes were required to clear the bolus. No extravasation noted during the course of this study. Esophageal Phase:??Narrowing of the neopharynx/esophageal anastamosis at C4-C5 results in retentionof the pudding consistency and slow clearance of liquid consistencies. Additionally, radiologists notes delayed opening at the GE junction. ? Patient Education:?Mr. Barreto was educated regarding swallow study results and recommendations.??He??demonstrated functional understanding of the information presented and agreed to the prescribed plan of care.?? documented in this encounter Plan of Treatment Upcoming Encounters Date Type Department Care Team (Late st Contact Info) Description 07/17/2024 12:30 PM EST Clinical Support [facility] [address] [address] 07/17/2024 1:30 PM EST Appointment [facility] [address] [place] [address] 07/20/2024 2:50 PM EST Office Visit [facility] [address] [place] [address] Divine Carpenter MD 800 [facility] [address] [place] [phone] documented as of this encounter Procedures Procedure Name Priority Date/Time Associated Diagnosis Comments FL MODIFIED BARIUM SWALLOW Routine 04/07/2021 11:19 AM EST Cancer of larynx (CMS/HCC) documented in this encounter Results * FL Modified Barium Swallow (04/07/2021 11:19 AM EST) Anatomical Region Laterality Modality Esophagus, stomach and duodenum Digital Radiography Impressions 04/07/2021 2:37 PM EST Severe narrowing of the nasopharynx near the anastomosis. Dedicated barium swallow evaluation of the esophagus is advised to assess the delayed clearance of bolus seen on the current exam. Please see separate note by Speech therapy team for dietary recommendations. CRITICAL RESULT: ?? No. COMMUNICATION: Per this written report. Signed by Jeniffer Nichols on ??04/07/2021 2:37 PM Narrative 04/07/2021 2:37 PM EST Exam/Procedure: FL MODIFIED BARIUM SWALLOW ordered by LUBNA CORREIA [id number] CLINICAL INDICATION: dysphagia TECHNIQUE: Modified barium swallow was performed utilizing video fluoroscopy in conjunction with the Speech Pathology team. The patient ingested barium media of varying consistencies. ?? Fluoroscopy Time: 1.8 minutes. COMPARISON: November 04, 2018 FINDINGS: Swallowing: There is severe narrowing at the neopharynx/esophageal anastomosis with delay in passage of contrast bolus of all consistencies, worse with pudding and cracker consistencies. No extraluminal contrast. Other: Several surgical clips are seen in the neck compatible with prior surgery. There is delay in clearance of contrast from the cervical esophagus just below the anastomosis. In addition there is delayed opening above the GE junction with delayed emptying of the esophagus. Retropulsion is also seen in the distal esophagus. Procedure Note Jeniffer Nichols MD - 04/07/2021 Exam/Procedure: FL MODIFIED BARIUM SWALLOW ordered by LUBNA [id number] CLINICAL INDICATION: dysphagia TECHNIQUE: Modified barium swallow was performed utilizing video fluoroscopy inconjunction with the Speech Pathology team. The patient ingested bariummedia of varying consistencies. Fluoroscopy Time: 1.8 minutes. COMPARISON: November 04, 2018 FINDINGS: Swallowing: There is severe narrowing at the neopharynx/esophagealanastomosis with delay in passage of contrast bolus of all consistencies,worse with pudding and cracker consistencies. No extraluminal contrast. Other: Several surgical clips are seen in the neck compatible with priorsurgery. There is delay in clearance of contrast from the cervicalesophagus just below the anastomosis. In addition there is delayed openingabove the GE junction with delayed emptying of the esophagus. Retropulsionis also seen in the distal esophagus. IMPRESSION: Severe narrowing of the nasopharynx near the anastomosis. Dedicated barium swallow evaluation of the esophagus is advised to assessthe delayed clearance of bolus seen on the current exam. Please see separate note by Speech therapy team for dietaryrecommendations. CRITICAL RESULT: No. COMMUNICATION: Per this written report. Signed by Jeniffer Nichols on 04/07/2021 2:37 PM Lubna Correia MD IMG FLUOROSCOPY PROCEDURES Final Result documented in this encounter Visit Diagnoses Diagnosis Dysphagia, unspecified type- Primary 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, unspecified site documented in this encounter Administered Medications Inactive Administered Medications - up to 3 most recent administrations Medication Order MAR Action Action Date Dose Rate Site barium sulfate (Varibar [place]) 40 % suspension 120 mL 120 mL, Oral, Once in imaging, 1 dose, Starting on Wed04/07/21 at 1126, Until Wed04/07/21 at 1127, Routine, Imaging Protocol Orders Given 04/07/2021 11:27 AM EST 120 mL barium sulfate (Varibar Pudding) 40 % oral paste 15 mL 15 mL, Oral, Once in imaging, 1 dose, Starting on Wed04/07/21 at 1126, Until Wed04/07/21 at 1126, Routine, Imaging Protocol Orders Given 04/07/2021 11:26 AM EST 15 mL barium sulfate (Varibar Thin Honey) 40 % suspension 90 mL 90 mL, Oral, Once in imaging, 1 dose, Starting on Wed04/07/21 at 1126, Until Wed04/07/21 at 1126, Routine, Imaging Protocol Orders Given 04/07/2021 11:26 AM EST 90 mL barium sulfate (Varibar THIN Liquid) 40 % suspension 120 mL 120 mL, Oral, Once in imaging, 1 dose, Starting on Wed04/07/21 at 1126, Until Wed04/07/21 at 1126, Routine, Imaging Protocol Orders Given 04/07/2021 11:26 AM EST 120 mL documented in this encounter Additional Health Concerns Assessment Noted Time A fall risk assessment has been complete d for the patient 04/07/2021 1:21 PM EST documented as of this encounter Care Teams Fact Checker Relationship Specialty Start Date End Date Michele Wright MD [address] [place] [address] PCP - General 10/11/20 Edgar Szymanski MD [address] [place] [phone] Radiation Oncologist Radiation Therapy 03/14/20 4 Shun Hurst MD [address] [place] [address] Surgeon Neurosurgery 02/24/21 documented as of this encounter
--- OUTSIDE RECORDS SUMMARY | 2024-05-03 13:43 | XMS_ITS | Encounter Summary ---
Author Organization [facility] Address [address] [id number] Care Team Providers Care Lead Material Handler Name Role Phone Michele Wright MD Primary Care Provider + [phone] Edgar Szymanski MD Unavailable [phone] Shun Hurst MD Unavailable [phone] Reason for Visit * Episode Based Medications (Routine) - Closed Specialty Diagnoses / Procedures Referred By Ortega t Referred To Contact Diagnoses Cancer of larynx (CMS/HCC) Divine Carpenter MD [address] [address] Phone: tel: fax: [facility] Infusion Clinic [address] [place] [address] Phone: tel: Referral ID Status Reason Start Date Expiration Date Visits Re quested Visits Authorized [id number] Closed 02/17/2021 10/25/2021 1 78 Encounter Details Date Type Department Care Team (Latest Contact Info) Description 05/03/2021 2:00 PM EST - 05/03/2021 11:59 PM EST Hospital Encounter [facility] Infusion Clinic [address] [place] [address] Cancer of larynx (CMS/HCC) Discharge [...] Sign Reading Time Taken Comments Blood Pressure 161/77 05/03/2021 2:18 PM EST Pulse 58 05/03/2021 2:18 PM EST Temperature 36.8 ??C (98.2 ??F) 05/03/2021 2:18 PM ES T Respiratory Rate 17 05/03/2021 2:18 PM EST Oxygen Saturation 95% 05/03/2021 2:18 PM EST Inhaled Oxygen Concentration - - Weight 95.8 kg (211 lb 3.2 oz) 05/03/2021 2:18 P M EST Height 177.8 cm (5' 10 ) 05/03/2021 2:18 PM EST Body Mass Index 30.3 05/03/2021 2:18 PM EST documented in this encounter Medications [...] * Addendum Note - Silvia Farmer - 05/03/2021 2:00 PM ESTEncounter addended by: Silvia Farmer on: 05/05/2021 1:44 PM Actions taken: Charge Capture section accepted documented in this encounter Plan of Treatment Upcoming Encounters Date Type Department Care Team (Late st Contact Info) Description 07/17/2024 12:30 PM EST Clinical Support [facility] [address] [facility], [address] [place] [phone] 07/17/2024 1:30 PM EST Appointment [facility] [address] [place] [phone] 07/20/2024 2:50 PM EST Office Visit [facility] [address] [facility], [address] [place] [address] Divine Carpenter MD 800 [facility] [address] [facility] [address] [place] [address] documented as of this encounter Visit Diagnoses Diagnosis 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, unspecified site documented in this encounter Additional Health Concerns Assessment Noted Time A fall risk assessment has been complete d for the patient 05/03/2021 2:18 PM EST documented as of this encounter Care Teams Lead Material Handler Relationship Specialty Start Date End Date Michele Wright MD [address] [place] [address] PCP - General 10/11/20 Edgar Szymanski MD 800 [facility] [address] [place] [address] Radiation Oncologist Radiation Therapy 03/14/20 4 Shun Hurst MD [address] [facility] [address] [place] [phone] Surgeon Neurosurgery 02/24/21 documented as of this encounter
--- OUTSIDE RECORDS SUMMARY | 2024-05-03 13:43 | XMS_ITS | Encounter Summary ---
Author Organization [facility] Address [address] [place], [place] [id number] Care Team Providers Care Glass Mold Repairer Name Role Phone Michele Wright MD Primary Care Provider + [phone] Edgar Szymanski MD Unavailable [phone] Shun Hurst MD Unavailable [phone] Encounter Details Date Type Department Care Team ([facility] Contact Info) Description 05/06/2021 Orders Only [facility] 800 [facility], [address]nd [place] [address] Ambika Ambriz, RN [facility] Social History [...] [address] [facility], [address] [place] [address] 07/17/2024 1:30 PM EST Appointment [facility] [address] [place] [phone] 07/20/2024 2:50 PM EST Office Visit [facility] [address] [facility], [address] [place] [address] Divine Carpenter MD 800 [facility] [address] [place] [address] documented as of this encounter Visit Diagnoses Not on filedocumented in this encounter Additional Health Concerns Assessment Noted Time A fall risk assessment has been complete d for the patient 05/03/2021 2:18 PM EST documented as of this encounter Care Teams Glass Mold Repairer Relationship Specialty Start Date End Date Michele Wright MD [address] [place] [address] PCP - General 10/11/20 Edgar Szymanski MD [address] [facility] [address] [place] [phone] Radiation Oncologist Radiation Therapy 03/14/20 4 Shun Hurst MD [address] [facility] [address] [place] [address] Surgeon Neurosurgery 02/24/21 documented as of this encounter
--- OUTSIDE RECORDS SUMMARY | 2024-05-03 13:43 | XMS_ITS | Encounter Summary ---
Author Organization [facility] Address [address] [place], [place] [id number] Care Team Providers Care Machine Shop Specialist Name Role Phone Michele Wright MD Primary Care Provider + [phone] Edgar Szymanski MD Unavailable [phone] Shun Hurst MD Unavailable [phone] Encounter Details Date Type Department Care Team ([facility] Contact Info) Description 04/21/2021 9:00 AM EST Clinical Support Pav CC Head, Neck & Respiratory [address] [facility], 2nd [place] [address] Jayla Wheeler, RN PATIENT EDUCATION Cancer of [...] [facility], [address]nd [place] [address] 07/17/2024 1:30 PM EST Appointment PAV G Radiology [address] [place] [address] 07/20/2024 2:50 PM EST Office Visit Pav CC Head, Neck & Respiratory [address] [facility], [address]nd [place] [address] Divine Carpenter MD [address] [facility] [address] [place] [address] documented as of this encounter Procedures Procedure Name Priority Date/Time Associated Diagnosis Comments CBC WITH AUTO DIFFERENTIAL Routine 04/21/2021 10:34 AM EST Cancer of larynx (CMS/HCC) MAGNESIUM, PLASMA STAT 04/21/2021 10: 12 AM EST Cancer of larynx (CMS/HCC) COMPREHENSIVE METABOLIC PANEL, PLASMA Routine 04/21/2021 10:12 AM EST Cancer of larynx (CMS/HCC) documented in this encounter Results * (ABNORMAL) CBC and differential (04/21/2021 10:34 AM EST) WBC Count 1.50(LL) 3.70 - 10.30 10*3/uL LAB HEMATOLOGY METHOD 04/21/2021 10:34 AM EST [email or web address] RBC Count 3.27(L) 4.60 - 6.10 10*6/uL LAB HEMATOLOGY METHOD 04/21/2021 10:34 AM EST [facility] HGB 9.8(L) 13.7 - 17.5 g/dL LAB HEMATOLOGY METHOD 04/21/2021 10:34 AM EST [facility] HCT 30.1(L) 40.0 - 51.0 % LAB HEMATOLOGY METHOD 04/21/2021 10:34 AM EST [facility] Platelet Count 102(L) 155 - 369 10*3/uL LAB HEMATOLOGY METHOD 04/21/2021 10:34 AM EST [facility] MCV 92 79 - 98 fL LAB HEMATOLOGY METHOD 04/21/2021 10:34 AM EST [facility] MCH 30.0 26.0 - 32.0 pg LAB HEMATOLOGY METHOD 04/21/2021 10:34 AM EST [facility] MCHC 32.6 30.7 - 35.5 g/dL LAB HEMATOLOGY METHOD 04/21/2021 10:34 AM [facility] RDW 16.9(H) 11.5 - 14.5 % LAB HEMATOLOGY METHOD 04/21/2021 10:34 AM EST [facility] MPV 10.9 8.8 - 12.5 fL LAB HEMATOLOGY METHOD 04/21/2021 10:34 AM [facility] nRBC 0.0 <=0.0 per 100 WBCs LAB HEMATOLOGY METHOD 04/21/2021 10:34 AM [facility] Differential Type Automated LAB HEMATOLOGY METHOD 04/21/2021 10:34 AM [facility] Neutrophils % 42.0 % LAB HEMATOLOGY METHOD 04/21/2021 10:34 AM [facility] Lymphocytes % 33.0 % LAB HEMATOLOGY METHOD 04/21/2021 10:34 AM EST [facility] Monocytes % 25.0 % LAB HEMATOLOGY METHOD 04/21/2021 10:34 AM [facility] Eosinophils % 0.0 % LAB HEMATOLOGY METHOD 04/21/2021 10:34 AM [facility] Basophils % 0.0 % LAB HEMATOLOGY METHOD 04/21/2021 10:34 AM EST [facility] Immature Granulocytes % 0.0 % LAB HEMATOLOGY METHOD 04/21/2021 10:34 AM [facility] Neutrophils Absolute 0.64(LL) 1.60 - 6.10 10*3/uL LAB HEMATOLOGY METHOD 04/21/2021 10:34 AM EST [facility] Lymphocytes Absolute 0.49(L) 1.20 - 3.90 10*3/uL LAB HEMATOLOGY METHOD 04/21/2021 10:34 AM EST [facility] Monocytes Absolute 0.37 0.30 - 0.90 10*3/uL LAB HEMATOLOGY METHOD 04/21/2021 10:34 AM EST [facility] Eosinophils Absolute 0.00 0.00 - 0.50 10*3/uL LAB HEMATOLOGY METHOD 04/21/2021 10:34 AM EST [facility] Basophils Absolute 0.00 0.00 - 0.10 10*3/uL LAB HEMATOLOGY METHOD 04/21/2021 10:34 AM EST [facility] Immature Granulocytes Absolute 0.00 0.00 - 0.06 10*3/uL LAB HEMATOLOGY METHOD 04/21/2021 10:34 AM EST [facility] Blood Venous blood specimen / Unknown 04/21/2021 9:42 AM EST Narrative [facility] - 04/21/2021 10:34 AM EST Therapeutic decision making should be based on absolute values, rather than percentages. Divine Carpenter MD LAB BLOOD ORDERABLES Final R esult Performing Organization Address City/[facility]/ZIP Co de Phone Number [facility] [address] [place] [address] * (ABNORMAL) Magnesium (04/21/2021 10:12 AM EST) Magnesium, Plasma 1.8(L) 1.9 - 2.4 mg/dL 04/21/2021 10:12 AM EST [facility] Blood Venous blood specimen / Unknown 04/21/2021 9:42 AM EST Divine Carpenter MD LAB BLOOD ORDERABLES Final R esult Performing Organization Address City/[facility] Co de Phone Number [facility] [address] [place] [address] * (ABNORMAL) Comprehensive metabolic panel (04/21/2021 10:12 AM EST) Glucose, Plasma 109(H) 74 - 99 mg/dL 04/21/2021 10:12 AM EST [facility] BUN, Plasma 7 7 - 21 mg/dL 04/21/2021 10:12 AM EST [facility] Creatinine, Plasma 0.89 0.80 - 1.30 mg/dL 04/21/2021 10:12 AM EST [facility] BUN/Creatinine Ratio 8 04/21/2021 10:12 AM EST [facility] Sodium, Plasma 139 136 - 145 mmol/L 04/21/2021 10:12 AM EST [facility] Potassium, Plasma 4.1 3.7 - 4.8 mmol/L 04/21/2021 10:12 AM EST [facility] Chloride, Plasma 101 97 - 107 mmol/L 04/21/2021 10:12 AM [facility] CO2, Plasma 29 22 - 29 mmol/L 04/21/2021 10:12 AM [facility] Anion Gap 9 6 - 16 mmol/L 04/21/2021 10:12 AM [facility] Total Calcium, Plasma 9.2 8.9 - 10.2 mg/dL 04/21/2021 10:12 AM [facility] Total Protein 6.5 6.3 - 7.9 g/dL 04/21/2021 10:12 AM [facility] Albumin, Plasma 3.9 3.5 - 5.2 g/dL 04/21/2021 10:12 AM [facility] AST, Plasma 18 12 - 40 U/L 04/21/2021 10:12 AM [facility] ALT, Plasma 10(L) 11 - 41 U/L 04/21/2021 10:12 AM [facility] Alkaline Phosphatase, Plasma 88 40 - 115 U/L 04/21/2021 10:12 AM [facility] Total Bilirubin, Plasma 0.4 0.2 - 1.1 mg/dL 04/21/2021 10:12 AM [facility] eGFR >60 >60 mL/min/1.7 3m*2 04/21/2021 10:12 AM [facility] Comment:eGFR = estimated GFR ; eGFR units = mL/min/1.73 sq meters Chronic Kidney Disease is considered if eGFR <60 mL/min/1.73 sq meters Kidney failure is considered if eGFR is <15 mL/min/1.73 sq meters. eGFR assumes steady state plasma creatinine concentration; not applicable if renal function is rapidly changing or patient is on dialysis. eGFR, if AFR/AM >60 >60 mL/min/1.7 3m*2 04/21/2021 10:12 AM [facility] Comment:eGFR = estimated GFR ; eGFR units = mL/min/1.73 sq meters Chronic Kidney Disease is considered if eGFR <60 mL/min/1.73 sq meters Kidney failure is considered if eGFR is <15 mL/min/1.73 sq meters. eGFR assumes steady state plasma creatinine concentration; not applicable if renal function is rapidly changing or patient is on dialysis. Blood Venous blood specimen / Unknown 04/21/2021 9:42 AM EST us Divine Carpenter MD LAB BLOOD ORDERABLES Final R esult [facility] [address] [place] [address] documented in this encounter Visit Diagnoses Diagnosis 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, unspecified site documented in this encounter Additional Health Concerns Assessment Noted Time A fall risk assessment has been complete d for the patient 04/21/2021 9:56 AM EST documented as of this encounter Care Teams Machine Shop Specialist Relationship Specialty Start Date End Date Michele Wright MD [address] [place] [address] PCP - General 10/11/20 Edgar Szymanski MD [address] [facility] [address] [place] [address] Radiation Oncologist Radiation Therapy 03/14/20 4 Shun Hurst MD [address] [facility] [address] [place] [address] Surgeon Neurosurgery 02/24/21 documented as of this encounter
--- OUTSIDE RECORDS SUMMARY | 2024-05-03 13:43 | XMS_ITS | Encounter Summary ---
Author Organization [facility] Address [address] [place], [place] [address] Care Team Providers Care Digital Music Instructor Name Role Phone Michele Wright MD Primary Care Provider + [phone] Edgar Szymanski MD Unavailable [phone] Shun Hurst MD Unavailable [phone] Divine Carpenter MD Unavailable [phone] Reason for Visit * Reason Onset Date Comments HCN - Patient Message 04/17/2021 HCN - Patient Message 04/23/2021 Encounter Details Date Type Department Care Team (Late st Contact Info) Description 04/17/2021 Telephone [facility] [address] [place] [phone] Divine Carpenter MD [address] [address] HCN - Patient Message; HCN - Patient Message Social History Tobacco [...] * Telephone Encounter - Leeanna Urbina - 04/23/2021 1:56 PM EST Patient Phone Message Dr Carpenter Reason for Call: Verify the dosage of the medication that was giving Erbipux 01/27, 02/17 // reference# [id number] Best contact number and optimal time of day to reach caller: [phone] Note: Please do not reply to this message. Follow-up communication and further actions as a result of this message need to be communicated with the patient directly, if the patient is not active onMyChart. If the patient is active on MyChart, they will receive notification of the communication/outcome via [employer] ![employer]. * Telephone Encounter - Ambika Ambriz RN - 04/23/2021 1:14 PM EST Message left. * Telephone Encounter - Saqib Silvestre - 04/17/2021 11:54 AM EST Patient Phone Message Reason for Call: [employer] calling to confirm dosage for a script written on 01/27 and 02/17. They state ordered by Dr. Carpenter. Reference ID: [id number]. Best contact number and optimal time of day to reach caller: [phone] - Anusha Note: Please do not reply to this message. Follow-up communication and further actions as a result of this message need to be communicated with the patient directly, if the patient is not active onMyChart. If the patient is active on MyChart, they will receive notification of the communication/outcome via [employer] documented in this encounter Plan of Treatment Upcoming Encounters Date Type Department Care Team (Late st Contact Info) Description 07/17/2024 12:30 PM EST Clinical Support Pav CC Head, Neck & Respiratory [address] [place] [address] 07/17/2024 1:30 PM EST Appointment [facility] G Radiology [address] [place] [phone] 07/20/2024 2:50 PM EST Office Visit Pav CC Head, Neck & Respiratory [address], [address] [place] [address] Divine Carpenter MD [address] [place] [phone] documented as of this encounter Visit Diagnoses Not on filedocumented in this encounter Additional Health Concerns Infection Onset Date Last Indicated Resolved Time COVID-19 Rule-Out 06/12/2021 06/12/2021 06/12/2021 12:25 PM EST COVID 19 (Confirmed) Comment:[facility] has verified patient has a COVID-19 positive result. A chart review has been completed, EPI PUI has been completed and sent to appropriate Health Dept. [facility] Quality Project Manager: Doyle 06/12/2021 06/12/2021 07/03/2021 5: 23 AM EST Assessment Noted Time A fall risk assessment has been complete d for the patient 04/07/2021 1:21 PM EST documented as of this encounter Care Teams Digital Music Instructor Relationship Specialty Start Date End Date Michele Wright MD [address] [place] [address] PCP - General 10/11/20 Edgar Szymanski MD [address] [place] [phone] Radiation Oncologist Radiation Therapy 03/14/20 4 Shun Hurst MD [address] [facility] [address] [place] [address] Surgeon Neurosurgery 02/24/21 Divine Carpenter MD [address] [facility] [address] [place] [address] Medical Oncologist Medical Oncology 06/13/21 documented as of this encounter
--- OUTSIDE RECORDS SUMMARY | 2024-05-03 13:43 | XMS_ITS | Encounter Summary ---
Author Organization Healthcare Address [address] [place] [address] Care Team Providers Care Weighmaster Name Role Phone Michele Wright MD Primary Care Provider + [phone] Edgar Szymanski MD Unavailable [phone] Shun Hurst MD Unavailable [phone] Encounter Details Date Type Department Care Team (Latest Contact Info) Description 04/29/2021 Travel Social History Tobacco Use Types Packs/Day [...] Upcoming Encounters Date Type Department Care Team ([facility] st Contact Info) Description 07/17/2024 12:30 PM EST Clinical Support Pav CC Head, Neck & Respiratory [address] [facility], [address] [place] [address] 07/17/2024 1:30 PM EST Appointment PAV G Radiology [address] [place] [address] 07/20/2024 2:50 PM EST Office Visit Pav CC Head, Neck & Respiratory [address] [facility], [address] [place] [address] Divine Carpenter MD [address] [facility] [address] [place] [address] documented as of this encounter Visit Diagnoses Not on filedocumented in this encounter Additional Health Concerns Assessment Noted Time A fall risk assessment has been complete d for the patient 04/29/2021 8:57 AM EST documented as of this encounter Care Teams Weighmaster Relationship Specialty Start Date End Date Michele Wright MD [address] [place] [address] PCP - General 10/11/20 Edgar Szymanski MD [address] [facility] [address] [place] [phone] Radiation Oncologist Radiation Therapy 03/14/20 4 Shun Hurst MD [address] [facility] [address] [place] [phone] Surgeon Neurosurgery 02/24/21 documented as of this encounter
--- OUTSIDE RECORDS SUMMARY | 2024-05-03 13:43 | XMS_ITS | Encounter Summary ---
Author Organization [facility] Address [address] [place], [place] [id number] Care Team Providers Care Kitchen And Bath Designer Name Role Phone Michele Wright MD Primary Care Provider + [phone] Edgar Szymanski MD Unavailable [phone] Shun Hurst MD Unavailable [phone] Reason for Visit * Reason Comments Follow-up * Episode Based Medications (Routine) - Closed Specialty Diagnoses / Procedures Referred By Ortega leon Referred To Contact Diagnoses Cancer of larynx (CMS/HCC) Divine Carpenter MD 800 [facility] [address] [address] Phone: tel: fax: [facility] [address] [place] [address] Phone: tel: Referral ID Status Reason Start Date Expiration Date Visits Re quested Visits Authorized [id number] Closed 02/17/2021 10/25/2021 1 78 Encounter Details Date Type Department Care Team ([facility] st Contact Info) Description 04/21/2021 9:20 AM EST Office Visit Pav CC Head, Neck & Respiratory 800 [facility], 2nd [place] [address] Divine Carpenter MD 800 [facility] [address] [address] Cancer of larynx (CMS/HCC) (Primary [...] Sign Reading Time Taken Comments Blood Pressure 127/71 04/21/2021 9:03 AM EST Pulse 56 04/21/2021 9:03 AM EST Temperature 36.8 ??C (98.2 ??F) 04/21/2021 9:03 AM ES T Respiratory Rate 16 04/21/2021 9:03 AM EST Oxygen Saturation 91% 04/21/2021 9:03 AM EST Inhaled Oxygen Concentration - - Weight 98.1 kg (216 lb 4.3 oz) 04/21/2021 9:03 A M EST Height 176 cm (5' 9.29 ) 04/21/2021 9:03 AM EST Body Mass Index 31.67 04/21/2021 9:03 AM EST documented in this encounter Miscellaneous Notes * Progress Notes - Hannah Sprague, PICKER TENDER HELPER - 04/21/2021 9:20 AM EST MEDICAL ONCOLOGY FOLLOW-UP NOTE Patient Information Patient Name: Anibal Barreto Date of : 1965 REFERRING PHYSICIAN: Michele Wright MD Encounter Date: 04/21/2021 Treatment Diagnosis: Cancer Staging Cancer of larynx [...] followup and for reassessment prior to next cycle of current therapy. 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 14. Ct imaging of chest and soft [...] + bacilli with microabscesses. Cancer of larynx ([facility]) 02/19/2017 Cancer Staged Staging form: Larynx - Glottis, AJCC 8th Edition, Clinical stage from 02/19/2017: Stage ZULAY (cT3, cN2c, cM0) - Signed by Divine Carpenter MD on 10/14/2020 03/18/2017 Initial Diagnosis Cancer of larynx ([facility]/HCC) 03/22/2018 Cancer Staged Staging form: Larynx - Glottis, AJCC 8th Edition, Pathologic stage from 03/22/2018: Stage III (rpT3, pN0, cM0) - Signed by Divine Carpenter MD on 10/14/2020 11/21/2019 Cancer Staged Staging form: Larynx - Glottis, AJCC 8th Edition, Pathologic stage from 11/21/2019: Stage IVC (rpTX,pNX, pM1) - Signed by Divine Carpenter MD on 10/14/2020 03/14/2020 - 11/24/2020 Research Study Participant [id number]: Pembrolizumab Every 42 Days Every 84 Days Plan Provider: Divine Carpenter MD Treatment goal: Palliative Line of treatment: Second Line Associated studies: Priming Immunotherapy in Advanced Disease with Radiation 11/26/2020 - Radiation Therapy The patient saw No care staff nurse icu resource team to display for radiation treatment. This is the current list ofradiation treatment: Radiation Treatments No radiation treatments to show. (Treatments may have been administered in another system.) 12/09/2020 - Radiation Therapy The patient saw No care staff nurse icu resource team to display for radiation treatment. This is the current list ofradiation treatment: Radiation Treatments No radiation treatments to show. (Treatments may have been administered in another system.) 01/27/2021 - 03/09/2021 Chemotherapy cetuximab (Erbitux) 892 mg chemo IVPB, [...] mL chemo IVPB, 750 mg, Intravenous, Once, 3 of 6 cycles Administration: 750 mg (03/10/2021), 750 mg (03/31/2021) fluorouracil (Adrucil) 8,750 mg in sodium chloride 0.9 % 230 mL chemo infusion - for home use, 4,000 mg/m2 = 8,750 mg, Intravenous, Over 96 hours, 3 of 6 cycles Administration: 8,750 mg (03/10/2021), 8,750 mg (03/31/2021) aprepitant (Cinvanti) 130 MG/18ML IV 130 mg, 130 mg, Intravenous, Once, 3 of 6 cycles Administration: 130 mg (03/10/2021), 130 mg (03/31/2021) Secondary malignant neoplasm of chest wall (CMS/HCC) 11/26/2020 - Radiation Therapy The patient saw No care staff nurse icu resource team to display for radiation treatment. This is the current list ofradiation treatment: Radiation Treatments No radiation treatments to show. (Treatments may have been administered in another system.) 11/26/2020 Initial Diagnosis Secondary malignant neoplasm of chest wall (CMS/HCC) 12/09/2020 - Radiation Therapy The patient saw No care staff nurse icu resource team to display for radiation treatment. This is the current list ofradiation treatment: Radiation Treatments No radiation treatments to show. (Treatments may have been administered in another system.) Currently, he returns today for evaluation prior to Cycle 3 Carboplatin/5 Fu. He is tolerating chemo well overall. Underwent an esophageal dilation and laryngoscopy with biopsy on 04/10/21 which was negative for malignancy, but found to have rare fungal on stain and gram + bacilli with microabscesses. He reports improved breathing, better swallowing. He denies fever, or chills, dysuria, hematuria, constipation, melena, diarrhea, hematochezia, hematemesis, abdominal pain, shortness of breath, cough, sputum production, mental status changes, neuropathy, chest pain, palpitations, rash, itching, dysphagia, voice changes, hearing loss, visual changes, stridor. He endorses numbness and tingling, present in right arm/hands that has been present for months due to cervical spinal stenosis s/p treatment. Problem List and Medications Reviewed in this encounter by me personally Objective Performance Status ECOG 1 Visit Vitals BP 127/71 (BP Location: Left arm) Pulse 56 Temp 36.8 ??C (98.2 ??F) (Oral) SpO2 91% Wt Readings from Last 6 Encounters: 04/21/21 98 kg (216 lb 0.8 oz) 04/21/21 98.1 kg (216 lb 4.3 oz) 04/10/21 94.9 kg (209 lb 3.5 oz) 04/07/21 96 kg (211 lb 10.3 oz) 04/04/21 97.5 kg (214 lb 15.2 oz) 04/04/21 96.8 kg (213 lb 6.5 oz) EXAM ECO General: Sitting/resting comfortably in chair, NAD HEENT: NCAT, PERRLA/EOMI, anicteric; no oral lesions Neck: Supple, no lymphadenopathy or JVD, trac in place, clean dry and intact Heart: RRR, no MGR Lungs: CTAB; no rales, rhonchi or wheezes Abdomen: Soft, NTND, + BS Extremities: No edema, distal pulses intact Musculoskeletal: No focal tenderness or deformity Skin: No visible rashes or lesions Neuro: Grossly nonfocal; no localizing deficits of strength, sensation, or mentation Psychiatric: Normal mood and thought content LABORATORIES STUDIES: reviewed by me personally today CBC WBC 1.50 Hgb 9.8 PLT 102 HCT 30.1 Lab Results Component Value Date NEUTROABS 0.64 (LL) 04/21/2021 BMPL Na 139 Cl 101 BUN 7 Gluc 109 K 4.1 Co2 29 Creat 0.89 LIVER FUNCTION TESTING Tot Prot 6.5 AST 18 Tot bili 0.4 ALT 10 Alkphos 88 Ca 9.2 Mg 1.8 Phos No results found for requested labs within last 8760 hours. Lab Results Component Value Date TSH 1.75 03/03/2021 RADIOLOGY: I visualized the recent imaging below and discussed the current radiology findings with the patientin detail and provided the report to the patient and answered all questions. FL Modified Barium Swallow Narrative: Exam/Procedure: VT MODIFIED BARIUM SWALLOW ordered by LUBNA CORREIA, [id number] CLINICAL INDICATION: dysphagia TECHNIQUE: Modified barium swallow was performed utilizing video fluoroscopy in conjunction with the Speech Pathology team. The patient ingested barium media of varying consistencies. Fluoroscopy Time: 1.8 minutes. COMPARISON: November 04, 2018 FINDINGS: Swallowing: There is severe narrowing at the neopharynx/esophageal anastomosis with delay in passage of contrast bolus of all consistencies, worse with pudding and cracker consistencies. No extraluminal contrast. Other: Several surgical clips are seen in the neck compatible with prior surgery. There is delay inclearance of contrast from the cervical esophagus just below the anastomosis. In addition there is delayed opening above the GE junction with delayed emptying of the esophagus. Retropulsion is also seen in the distal esophagus. Impression: Severe narrowing of the nasopharynx near the anastomosis. Dedicated barium swallow evaluation of the esophagus is advised to assess the delayed clearance of bolus seen on the current exam. Please see separate note by Speech therapy team for dietary recommendations. CRITICAL RESULT: No. COMMUNICATION: Per this written report. Signed by Jeniffer T Magdalena on 04/07/2021 2:37 PM Assessment/Plan 1. Cancer management : Cancer Staging Cancer of larynx (CMS/HCC), Staging form: Larynx - Glottis, AJCC 8th Edition, Pathologic: Stage IVC (recurrent) -This represents a life threatening illness for which continued cancer treatment is indicated. 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 - I visualized the recent imaging and discussed the current radiology findings with the patient in detail and gave copies of the reports to the patient and answered all questions. NO EVIDENCE OF PROGRESSIVE DISEASE - I reviewed liver and [...] associated toxicities in patients with cancer - Switch to 5FU/Carbo secondary to anaphylaxis to cetuximab -PLAN: - ANC 0.64- HOLD C3 5FU + Carboplatin today, delay one week, will need labs before chemo -Laboratory data pending at the time of note completion. Labs will be reviewed once available and the patient will be notified of any changes to the plan of care. - RTC in 3 weeks for follow up with Dr. Carpenter and C4, will rescheduled imaging to be performed before next appt. 2. Pain related to neoplasm: chronic with [...] for nausea and vomiting. - Reasonably controlled. 35 minutes was spent on this encounter; [...] Encouraged to call should other questions/concerns arise. Divine Carpenter MD Orders Placed This Encounter Procedures CBC and differential Comprehensive metabolic panel Magnesium Cosigned by Divine Carpenter MD at 04/21/2021 5:30 PM EST Associated attestation - Divine Carpenter MD - 04/21/2021 5:30 PM EST Attending Attestation Statement: I have evaluated the patient with Hannah Sprague APRN and reviewed the pertinent parts of the physical exam, and the plan of care with her and agree with her assessment. The plans have been generated with me, and I concur with the plan of care. Move chemotherapy back by one week due to neutropenia. Bill to MOHINI documented in this encounter Plan of Treatment Upcoming Encounters Date Type Department Care Team (Late st Contact Info) Description 07/17/2024 12:30 PM EST Clinical Support Pav CC Head, Neck & Respiratory [address] [facility], 2nd [place] [address] 07/17/2024 1:30 PM EST Appointment [facility] [address] [place] [phone] 07/20/2024 2:50 PM EST Office Visit Pav CC Head, Neck & Respiratory [address] [facility], [address] [place] [address] Divine Carpenter MD 800 [facility] [address] [place] [address] documented as of this encounter Results * (ABNORMAL) Magnesium (04/29/2021 9:11 AM EST) [facility] Magnesium, Plasma 1.7(L) 1.9 - 2.4 mg/dL 04/29/2021 10:12 AM EST [facility] Blood Blood sample taken from central line / Unknown Venipuncture / Unknown 04/29/2021 9:11 AM EST 04/29/2021 9:33 AM EST us Divine Carpenter MD LAB BLOOD ORDERABLES Final R esult [facility] [address] [place] [address] * (ABNORMAL) Comprehensive metabolic panel (04/29/2021 9:11 AM EST) [facility] Glucose, Plasma 77 74 - 99 mg/dL 04/29/2021 10:12 AM EST [facility] BUN, Plasma 8 7 - 21 mg/dL 04/29/2021 10:12 AM [facility] Creatinine, Plasma 0.78(L) 0.80 - 1.30 mg/dL 04/29/2021 10:12 AM [facility] BUN/Creatinine Ratio 10 04/29/2021 10:12 AM [facility] Sodium, Plasma 140 136 - 145 mmol/L 04/29/2021 10:12 AM [facility] Potassium, Plasma 3.7 3.7 - 4.8 mmol/L 04/29/2021 10:12 AM [facility] Chloride, Plasma 103 97 - 107 mmol/L 04/29/2021 10:12 AM [facility] CO2, Plasma 27 22 - 29 mmol/L 04/29/2021 10:12 AM [facility] Anion Gap 10 6 - 16 mmol/L 04/29/2021 10:12 AM [facility] Total Calcium, Plasma 9.0 8.9 - 10.2 mg/dL 04/29/2021 10:12 AM [facility] Total Protein 6.4 6.3 - 7.9 g/dL 04/29/2021 10:12 AM [facility] Albumin, Plasma 3.7 3.5 - 5.2 g/dL 04/29/2021 10:12 AM [facility] AST, Plasma 21 12 - 40 U/L 04/29/2021 10:12 AM [facility] ALT, Plasma 13 11 - 41 U/L 04/29/2021 10:12 AM [facility] Alkaline Phosphatase, Plasma 96 40 - 115 U/L 04/29/2021 10:12 AM [facility] Total Bilirubin, Plasma 0.3 0.2 - 1.1 mg/dL 04/29/2021 10:12 AM [facility] eGFR >60 >60 mL/min/1.7 3m*2 04/29/2021 10:12 AM [facility] Comment:eGFR = estimated GFR ; eGFR units = mL/min/1.73 sq meters Chronic Kidney Disease is considered if eGFR <60 mL/min/1.73 sq meters Kidney failure is considered if eGFR is <15 mL/min/1.73 sq meters. eGFR assumes steady state plasma creatinine concentration; not applicable if renal function is rapidly changing or patient is on dialysis. eGFR, if AFR/AM >60 >60 mL/min/1.7 3m*2 04/29/2021 10:12 AM EST [facility] Comment:eGFR = estimated GFR ; eGFR [...] central line / Unknown Venipuncture / Unknown 04/29/2021 9:11 AM EST 04/29/2021 9:33 AM EST us Divine Carpenter MD LAB BLOOD ORDERABLES Final R esult [facility] [address] [place] [address] * (ABNORMAL) CBC and differential (04/29/2021 9:11 AM EST) WBC Count 3.13(L) 3.70 - 10.30 10*3/uL LAB HEMATOLOGY METHOD 04/29/2021 11:[address] [facility] RBC Count 3.33(L) 4.60 - 6.10 10*6/uL LAB HEMATOLOGY METHOD 04/29/2021 11:[address] [facility] HGB 10.0(L) 13.7 - 17.5 g/dL LAB HEMATOLOGY METHOD 04/29/2021 11:[address] [facility] HCT 30.8(L) 40.0 - 51.0 % LAB HEMATOLOGY METHOD 04/29/2021 11:[address] [facility] Platelet Count 181 155 - 369 10*3/uL LAB HEMATOLOGY METHOD 04/29/2021 11:[address] [facility] MCV 93 79 - 98 fL LAB HEMATOLOGY METHOD 04/29/2021 11:[address] [facility] MCH 30.0 26.0 - 32.0 pg LAB HEMATOLOGY METHOD 04/29/2021 11:[address] [facility] MCHC 32.5 30.7 - 35.5 g/dL LAB HEMATOLOGY METHOD 04/29/2021 11:[address] [facility] RDW 17.8(H) 11.5 - 14.5 % LAB HEMATOLOGY METHOD 04/29/2021 11:09 AM [facility] MPV 10.3 8.8 - 12.5 fL LAB HEMATOLOGY METHOD 04/29/2021 11:09 AM [facility] nRBC 0.0 <=0.0 per 100 WBCs LAB HEMATOLOGY METHOD 04/29/2021 11:09 AM [facility] Differential Type Automated LAB HEMATOLOGY METHOD 04/29/2021 11:09 AM [facility] Neutrophils % 59.0 % LAB HEMATOLOGY METHOD 04/29/2021 11:09 AM [facility] Lymphocytes % 16.0 % LAB HEMATOLOGY METHOD 04/29/2021 11:09 AM [facility] Monocytes % 23.0 % LAB HEMATOLOGY METHOD 04/29/2021 11:09 AM [facility] Eosinophils % 0.0 % LAB HEMATOLOGY METHOD 04/29/2021 11:09 AM [facility] Basophils % 1.0 % LAB HEMATOLOGY METHOD 04/29/2021 11:09 AM [facility] Immature Granulocytes % 1.0 % LAB HEMATOLOGY METHOD 04/29/2021 11:09 AM [facility] Neutrophils Absolute 1.87 1.60 - 6.10 10*3/uL LAB HEMATOLOGY METHOD 04/29/2021 11:09 AM [facility] Lymphocytes Absolute 0.50(L) 1.20 - 3.90 10*3/uL LAB HEMATOLOGY METHOD 04/29/2021 11:09 AM [facility] Monocytes Absolute 0.71 0.30 - 0.90 10*3/uL LAB HEMATOLOGY METHOD 04/29/2021 11:09 AM [facility] Eosinophils Absolute 0.01 0.00 - 0.50 10*3/uL LAB HEMATOLOGY METHOD 04/29/2021 11:09 AM [facility] Basophils Absolute 0.02 0.00 - 0.10 10*3/uL LAB HEMATOLOGY METHOD 04/29/2021 11:09 AM [facility] Immature Granulocytes Absolute 0.02 0.00 - 0.06 10*3/uL LAB HEMATOLOGY METHOD 04/29/2021 11:09 AM [facility] Blood Blood sample taken from central line / Unknown Venipuncture / Unknown 04/29/2021 9:11 AM EST 04/29/2021 9:35 AM EST Narrative [facility] - 04/29/2021 11:09 AM EST Therapeutic decision making should be based on absolute values, rather than percentages. Divine Carpenter MD LAB BLOOD ORDERABLES Final R esult [facility] [address] [place] [address] documented in this encounter Visit Diagnoses Diagnosis 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, unspecified site documented in this encounter Additional Health Concerns Assessment Noted Time A fall risk assessment has been complete d for the patient 04/21/2021 9:56 AM EST documented as of this encounter Care Teams Kitchen And Bath Designer Relationship Specialty Start Date End Date Michele Wright MD [address] [id number] PCP - General 10/11/20 Edgar Szymanski MD 800 [facility] [address] [place] [address] Radiation Oncologist Radiation Therapy 03/14/20 4 Shun Hurst [facility] [address] [facility] [address] [place] [address] Surgeon Neurosurgery 02/24/21 documented as of this encounter
--- OUTSIDE RECORDS SUMMARY | 2024-05-03 13:43 | XMS_ITS | Encounter Summary ---
Author Organization Healthcare Address [address] [place] [id number] Care Team Providers Care Dipper And Drier Name Role Phone Michele Wright MD Primary Care Provider + [phone] Edgar Szymanski MD Unavailable [phone] Shun Hurst MD Unavailable [phone] Encounter Details Date Type Department Care Team (Latest Contact Info) Description 04/07/2021 Travel Social History Tobacco Use Types Packs/Day [...] have Coronavirus / COVID-19? No / Unsure 04/07/2021 10:24 AM EST documented as of this encounter Plan of Treatment Upcoming Encounters Date Type Department Care Team ([facility] st Contact Info) Description 07/17/2024 12:30 PM EST Clinical Support Pav CC Head, Neck & Respiratory 800 [facility], [address]nd [place] [address] 07/17/2024 1:30 PM EST Appointment [facility] [address] [place] [phone] 07/20/2024 2:50 PM EST Office Visit Pav CC Head, Neck & Respiratory 800 [facility], [address]nd [place] [phone] Divine Carpenter MD 800 [facility] [address] [place] [address] documented as of this encounter Visit Diagnoses Not on filedocumented in this encounter Additional Health Concerns Assessment Noted Time A fall risk assessment has been complete d for the patient 04/07/2021 1:21 PM EST documented as of this encounter Care Teams Dipper And Drier Relationship Specialty Start Date End Date Michele Wright MD [address] [place] [address] PCP - General 10/11/20 Edgar Szymanski MD 800 [facility] [address] [place] [phone] Radiation Oncologist Radiation Therapy 03/14/20 4 Shun Hurst MD [address] [facility] [address] [place] [phone] Surgeon Neurosurgery 02/24/21 documented as of this encounter
--- OUTSIDE RECORDS SUMMARY | 2024-05-03 13:43 | XMS_ITS | Encounter Summary ---
Author Organization [facility] Address [address] [place], [place] [id number] Care Team Providers Care Registration Rep Name Role Phone Michele Wright MD Primary Care Provider + [phone] Edgar Szymanski MD Unavailable [phone] Shun Hurst MD Unavailable [phone] Divine Carpenter MD Unavailable [phone] Reason for Visit * Reason Onset Date Comments HCN - Rx Refill Request 05/02/2021 Encounter Details Date Type Department Care Team (Late st Contact Info) Description 05/02/2021 Telephone [facility] [address] [place] [address] Divine Carpenter MD [address] [address] HCN - Rx Refill Request Social History Tobacco Use Types Packs/Day [...] Telephone Encounter - Ambika Ambriz RN - 05/02/2021 11:47 AM EST Message sent to * Telephone Encounter - Saqib Silvestre - 05/02/2021 11:11 AM EST Medication Refill Request Medication Name & Dosage: Fluconazole 100mg tablet Preferred Pharmacy & Location: [facility] [phone] Days of medication remaining (if under 3 days please otto as urgent): 0 - Pt. Is out Best contact number and optimal time of day to reach caller: [phone] Additional comments/information from caller: Pt. Has been off this medication for a few days and would like instructions regarding restarting. Note: Please do not reply to this [...] [facility] 800 [facility], [address]nd [place] [address] 07/17/2024 1:30 PM EST Appointment [facility] [address] [place] [address] 07/20/2024 2:50 PM EST Office Visit [facility] 800 [facility], [address]nd [place] [address] Divine Carpenter MD [address] [place] [address] documented as of this encounter Visit Diagnoses Not on filedocumented in this encounter Additional Health Concerns Infection Onset Date Last Indicated Resolved Time COVID-19 Rule-Out 06/12/2021 06/12/2021 06/12/2021 12:25 PM EST COVID 19 (Confirmed) Comment:IPAC has verified patient has a COVID-19 positive result. A chart review has been completed, EPI PUI has been completed and sent to appropriate Health Dept. IPAC Cmm Programmer: Doyle 06/12/2021 06/12/2021 07/03/2021 5: 23 AM EST Assessment Noted Time A fall risk assessment has been complete d for the patient 04/29/2021 8:57 AM EST documented as of this encounter Care Teams Registration Rep Relationship Specialty Start Date End Date Michele Wright MD [address] [place] [address] PCP - General 10/11/20 Edgar Szymanski MD [address] [facility] [address] [place] [phone] Radiation Oncologist Radiation Therapy 03/14/20 4 Shun Hurst MD [address] [place] [address] Surgeon Neurosurgery 02/24/21 Divine Carpenter MD [address] [place] [address] Medical Oncologist Medical Oncology 06/13/21 documented as of this encounter
--- OUTSIDE RECORDS SUMMARY | 2024-05-03 13:43 | XMS_ITS | Encounter Summary ---
Author Organization [facility] Address [address] [id number] Care Team Providers Care Decal Decorator Name Role Phone Michele Wright MD Primary Care Provider + [phone] Edgar Szymanski MD Unavailable [phone] Shun Hurst MD Unavailable [phone] Reason for Visit * Episode Based Medications (Routine) - Closed Specialty Diagnoses / Procedures Referred By Ortega t Referred To Contact Diagnoses Cancer of larynx (CMS/HCC) Divine Carpenter MD 800 [facility] [address] [place] [address] Phone: tel: fax: [facility] [address] [place] [address] Phone: tel: Referral ID Status Reason Start Date Expiration Date Visits Re quested Visits Authorized [id number] Closed 02/17/2021 10/25/2021 1 78 Encounter Details Date Type Department Care Team (Latest Contact Info) Description 04/29/2021 8:56 AM EST - 04/29/2021 11:59 PM EST Hospital Encounter [facility] In[facility] [address] [place] [address] Cancer of larynx (CMS/HCC) (Primary [...] Sign Reading Time Taken Comments Blood Pressure 114/65 04/29/2021 10:30 AM EST Pulse 53 04/29/2021 10:30 AM EST Temperature 36.9 ??C (98.4 ??F) 04/29/2021 10:[address] Respiratory Rate 18 04/29/2021 10:30 AM EST Oxygen Saturation 96% 04/29/2021 10:30 AM EST Inhaled Oxygen Concentration - - Weight 97.8 kg (215 lb 9.8 oz) 04/29/2021 8:57 A M EST Height 177.8 cm (5' 10 ) 04/29/2021 8:57 AM EST Body Mass Index 30.94 04/29/2021 8:57 AM EST documented in this encounter Medications [...] * Addendum Note - Silvia Farmer - 04/29/2021 9:00 AM Kiersten addended by: Silvia Farmer on: 05/01/2021 11:10 AM Actions taken: Charge Capture section accepted * Addendum Note - Amadou Barragan, PharmD - 04/29/2021 9:00 AM Kiersten addended by: Amadou Barragan, Tootie on: 05/19/2021 10:14 AM Actions taken: Clinical Note Signed * Progress Notes - Letty Prakash PA - 04/29/2021 9:00 AM EST Interim Summary S: Requested visit in chemo suite today; here for C3 carbo/5FU, delayed one week for neutropenia. Denies interim fever/chills or s/x infection. Complains today of ~one month history of BARRAGAN sx including dec frequency, dec force of stream, sensation of incomplete emptying and terminal dribbling. Denies known history BPH, no current meds. Denies hematuria, dysuria or history kidney stones. No pedal edema. Has not discussed w PCP or Dr. Carpenter. Admits he does not push fluids as much as possible, drinks primarily coffee and tea. Also noted to have elev BP today, despite reported compliance w 3 BP meds (amlodipine, metoprolol and lisinopril). Otherwise gen gwendolyn tx well overall. Had recent esophageal dilation 04/11 but says he still must grind most food, w frequent choking/aspiration and cough. Does not have PEG, and does not use supplements, but weight gen stable. Denies worsening SOA, purulent sputum or hemoptysis. Denies sig NV, or bowel complaint. No change in baseline UE PN. PMH, Surg History, Social History, Family History, and Current Medications reviewed, unchanged fromlast encounter of 04/21, or updated as indicated. O: Temp: [36.9 ??C (98.4 ??F)] 36.9 ??C (98.4 ??F) Heart Rate: [53-66] 53 Resp: [18] 18 BP: (114-177)/(65-91) 114/65 SpO2: [96 %] 96 % ECO General: Sitting/resting comfortably in chair, NAD. Overweight, pale. HEENT: NCAT, PERRLA/EOMI, anicteric; no oral lesions. Trach stoma c/d/i Neck: Supple, no lymphadenopathy or JVD Heart: RRR, no MGR Lungs: coarse but CTAB; no rales, rhonchi or wheezes Abdomen: Soft, protuberant, NTND, + BS Extremities: No edema, distal pulses intact Musculoskeletal: No focal tenderness or deformity Skin: No visible rashes or lesions Neuro: Grossly nonfocal; no localizing deficits of strength, sensation, or mentation Psychiatric: Normal mood and thought content Labs: CBC WBC 3.13 (L) Hb 10.0 (L) Plt 181 Hct 30.8 (L) ANC 1.87 BMP Na 140 Cl 103 BUN 8 Glu 77 K 3.7 Co2 27 Cr 0.78 (L) EGFR >60; >60 Ca 9.0 Lab Results Component Value Date MG 1.7 (L) 04/29/2021 LFTs AST 21 AlkPhos 96 T Prot 6.4 ALT 13 T Bili 0.3 Alb ?? D.Bili ?? Lab Results Component Value Date TSH 1.75 03/03/2021 FREET4 1.0 03/21/2018 UA NEG Assessment/Plan: 55 y.o. male with recurrent/metastatic laryngeal CA, on cont carbo/5FU q3wk regime. C3 delayed one week for afebrile neutropenia; no dose adjustments. - PS and labs acceptable to proceed w C3 today - Pending fu CT imaging 05/08 - RTC 05/12 for re eval w Dr. Carpenter, slot on 05/19 #BARRAGAN symptoms - Describes hesitancy, dec force of stream, incomplete emptying and terminal dribbling - Nml Cr/EGFR today - UA (neg) and Ucx today for completeness, low suspicion of infection - eRXd Flomax 0.4mg to take at bedtime, monitor tolerance/efficacy - should help optimize BP control as well - Messaged Dr. Carpenter #HTN, suboptimal control - Cont lisinopril, amlodipine and metoprolol, reports compliance - Added Flomax to trial, as above - Cont to monitor 35 minutes was spent on this encounter; [...] other questions/concerns arise. * Progress Notes - Amadou Barragan, PharmD - 04/29/2021 9:00 AM EST Pharmacy Hematology/Oncology Follow-up Treatment Plan Note Anibal Barreto is a 55 y.o. male with metastatic H&N cancer of [...] time given holiday, order sent to [facility] on this day Treatment plan reviewed: C4 carboplatin/5FU Dosing Wt: 102 kg Today's Wt: 98.5 kg Dosing Ht: 177.8 cm DosingBSA: 2.19 m2 Recent Labs Lab Results Component Value Date WBC 3.13 (L) 04/29/2021 HGB 10.0 (L) 04/29/2021 HCT 30.8 (L) 04/29/2021 MCV 93 04/29/2021 PLT 181 04/29/2021 Lab Results Component Value Date GLUCOSE 77 04/29/2021 CALCIUM 9.0 04/29/2021 NA 140 04/29/2021 K 3.7 04/29/2021 CO2 27 04/29/2021 CL 103 04/29/2021 BUN 8 04/29/2021 CREATININE 0.78 (L) 04/29/2021 Lab Results Component Value Date ALT 13 04/29/2021 AST 21 04/29/2021 ALKPHOS 96 04/29/2021 BILITOT 0.3 04/29/2021 Lab Results Component Value Date NEUTROABS 1.87 04/29/2021 Lab Results Component Value Date MG 1.7 (L) 04/29/2021 Lab Results Component Value Date TSH 1.75 03/03/2021 No results found for: UTPCR Vitals: Visit Vitals BP 114/65 (BP Location: Right arm, Patient Position: Sitting) Pulse 53 Temp 36.9 ??C (98.4 ??F) (Oral) Resp 18 Study Patient: No Chemotherapy Regimen Carboplatin AUC 5 IV D1 5-flourouracil 4000 mg/m2 (8750 mg) IV 1 Every 21 days [x] No dose adjustments made Current Treatment Plan History Carboplatin/5FU C1: 03/10/21 C2: 03/31/21 C3: 04/29/21 (delayed d/t neutropenia) C4: 05/26/21 Prior Chemotherapy History Pembrolizumab (Multi-20 study) C1: 03/14 C2: 04/04 C3: 04/25 (transition to 400 mg Q6uhcga) C4: 06/03/20 C5: 07/22/20 C6: 09/02/20 C7: 10/14/20 Carbo/cetux C1: 01/27/21 (only received Day 1) C2: 02/17/21 (had anaphylaxis to cetuximab) Patient will return to clinic in 3 weeks. Will follow-up at that time. Pharmacist Attestation: Amadou Barragan PharmD 04/29/2021 11:29 AM documented in this encounter Plan of Treatment Upcoming Encounters Date Type Department Care Team (Late st Contact Info) Description 07/17/2024 12:30 PM EST Clinical Support Pav [facility] Res[facility] 800 [facility], [address] [place] [address] 07/17/2024 1:30 PM EST Appointment [facility] Radiology [address] [place] [address] 07/20/2024 2:50 PM EST Office Visit [facility] Res[facility] 800 [facility], [address] [place] [address] Divine Carpenter MD 800 [facility] [address] [place] [address] Scheduled Orders Name Type Priority Associated Diagnoses Orde r Schedule Urine Culture Microbiology Routine Once (Lab ) for 1 Occurrences starting 04/29/2021 until 04/29/2021 documented as of this encounter Procedures Procedure Name Priority Date/Time Associated Diagnosis Comments URINALYSIS WITH REFLEX MICROSCOPIC Routine 04/29/2021 12:02 PM EST CBC WITH AUTO DIFFERENTIAL Routine 04/29/2021 9:11 AM EST Cancer of larynx (CMS/HCC) MAGNESIUM, PLASMA STAT 04/29/2021 9:1 1 AM EST Cancer of larynx (CMS/HCC) COMPREHENSIVE METABOLIC PANEL, PLASMA Routine 04/29/2021 9:11 AM EST Cancer of larynx (CMS/HCC) documented in this encounter Results * Urinalysis with reflex microscopic (04/29/2021 12:02 PM EST) Color, Urine Yellow LAB URINALYSIS - AUTOMATED METHOD 04/29/2021 12:59 PM EST [facility] Clarity, Urine Clear LAB URINALYSIS - AUTOMATED METHOD 04/29/2021 12:59 PM EST [facility] Spec [place], Urine 1.013 <=1.005 to >=1.030 LAB URINALYSIS - AUTOMATED METHOD 04/29/2021 12:59 PM EST [facility] pH, Urine 6.0 4.5 to 8 LAB URINALYSIS - AUTOMATED METHOD 04/29/2021 12:59 PM EST [facility] Protein, Urine Negative Negative mg/dL LAB URINALYSIS - AUTOMATED METHOD 04/29/2021 12:59 PM EST [facility] Glucose, Urine Negative Negative mg/dL LAB URINALYSIS - AUTOMATED METHOD 04/29/2021 12:59 PM EST [facility] Ketones, Urine Negative Negative mg/dL LAB URINALYSIS - AUTOMATED METHOD 04/29/2021 12:59 PM EST [facility] Blood, Urine Negative Negative LAB URINALYSIS - AUTOMATED METHOD 04/29/2021 12:59 PM EST [facility] Bilirubin, Urine Negative Negative LAB URINALYSIS - AUTOMATED METHOD 04/29/2021 12:59 PM EST [facility] Urobilinogen, Urine 0.2 0.2 to 1.0 mg/dL LAB URINALYSIS - AUTOMATED METHOD 04/29/2021 12:59 PM EST [facility] Leukocytes, Urine Negative Negative LAB URINALYSIS - AUTOMATED METHOD 04/29/2021 12:59 PM EST [facility] Nitrite, Urine Negative Negative LAB URINALYSIS - AUTOMATED METHOD 04/29/2021 12:59 PM EST [facility] Urine Urine specimen obtained by clean catch procedure / Unknown Non-blood Collection / Unknown 04/29/2021 12:02 PM EST 04/29/2021 12:24 PM EST Letty HERZOG LAB URINE ORDERABLES Final Result [facility] [address] [place] [address] * (ABNORMAL) CBC and differential (04/29/2021 9:11 AM EST) WBC Count 3.13(L) 3.70 - 10.30 10*3/uL LAB HEMATOLOGY METHOD 04/29/2021 11:09 AM EST [facility] RBC Count 3.33(L) 4.60 - 6.10 10*6/uL LAB HEMATOLOGY METHOD 04/29/2021 11:09 AM EST [facility] HGB 10.0(L) 13.7 - 17.5 g/dL LAB HEMATOLOGY METHOD 04/29/2021 11:09 AM EST [facility] HCT 30.8(L) 40.0 - 51.0 % LAB HEMATOLOGY METHOD 04/29/2021 11:09 AM EST [facility] Platelet Count 181 155 - 369 10*3/uL LAB HEMATOLOGY METHOD 04/29/2021 11:09 AM EST [facility] MCV 93 79 - 98 fL LAB HEMATOLOGY METHOD 04/29/2021 11:09 AM EST [facility] MCH 30.0 26.0 - 32.0 pg LAB HEMATOLOGY METHOD 04/29/2021 11:09 AM EST [facility] MCHC 32.5 30.7 - 35.5 g/dL LAB HEMATOLOGY METHOD 04/29/2021 11:09 AM EST [facility] RDW 17.8(H) 11.5 - 14.5 % LAB HEMATOLOGY METHOD 04/29/2021 11:09 AM EST [facility] MPV 10.3 8.8 - 12.5 fL LAB HEMATOLOGY METHOD 04/29/2021 11:09 AM EST [facility] nRBC 0.0 <=0.0 per 100 WBCs LAB HEMATOLOGY METHOD 04/29/2021 11:09 AM EST [facility] Differential Type Automated LAB HEMATOLOGY METHOD 04/29/2021 11:09 AM EST [facility] Neutrophils % 59.0 % LAB HEMATOLOGY METHOD 04/29/2021 11:09 AM EST [facility] Lymphocytes % 16.0 % LAB HEMATOLOGY METHOD 04/29/2021 11:09 AM EST [facility] Monocytes % 23.0 % LAB HEMATOLOGY METHOD 04/29/2021 11:09 AM EST [facility] Eosinophils % 0.0 % LAB HEMATOLOGY METHOD 04/29/2021 11:09 AM EST [facility] Basophils % 1.0 % LAB HEMATOLOGY METHOD 04/29/2021 11:09 AM EST [facility] Immature Granulocytes % 1.0 % LAB HEMATOLOGY METHOD 04/29/2021 11:09 AM EST [facility] Neutrophils Absolute 1.87 1.60 - 6.10 10*3/uL LAB HEMATOLOGY METHOD 04/29/2021 11:09 AM EST [facility] Lymphocytes Absolute 0.50(L) 1.20 - 3.90 10*3/uL LAB HEMATOLOGY METHOD 04/29/2021 11:09 AM EST [facility] Monocytes Absolute 0.71 0.30 - 0.90 10*3/uL LAB HEMATOLOGY METHOD 04/29/2021 11:09 AM EST [facility] Eosinophils Absolute 0.01 0.00 - 0.50 10*3/uL LAB HEMATOLOGY METHOD 04/29/2021 11:09 AM EST [facility] Basophils Absolute 0.02 0.00 - 0.10 10*3/uL LAB HEMATOLOGY METHOD 04/29/2021 11:09 AM EST [facility] Immature Granulocytes Absolute 0.02 0.00 - 0.06 10*3/uL LAB HEMATOLOGY METHOD 04/29/2021 11:09 AM EST [facility] Blood Blood sample taken from central line / Unknown Venipuncture / Unknown 04/29/2021 9:11 AM EST 04/29/2021 9:35 AM EST [facility] - 04/29/2021 11:09 AM EST Therapeutic decision making should be based on absolute values, rather than percentages. us Divine Carpenter MD LAB BLOOD ORDERABLES Final R esult [facility] [address] [place] [address] * (ABNORMAL) Comprehensive metabolic panel (04/29/2021 9:11 AM EST) Glucose, Plasma 77 74 - 99 mg/dL 04/29/2021 10:12 AM EST [facility] BUN, Plasma 8 7 - 21 mg/dL 04/29/2021 10:12 AM EST [facility] Creatinine, Plasma 0.78(L) 0.80 - 1.30 mg/dL 04/29/2021 10:12 AM [facility] BUN/Creatinine Ratio 10 04/29/2021 10:12 AM [facility] Sodium, Plasma 140 136 - 145 mmol/L 04/29/2021 10:12 AM [facility] Potassium, Plasma 3.7 3.7 - 4.8 mmol/L 04/29/2021 10:12 AM [facility] Chloride, Plasma 103 97 - 107 mmol/L 04/29/2021 10:12 AM [facility] CO2, Plasma 27 22 - 29 mmol/L 04/29/2021 10:12 AM [facility] Anion Gap 10 6 - 16 mmol/L 04/29/2021 10:12 AM [facility] Total Calcium, Plasma 9.0 8.9 - 10.2 mg/dL 04/29/2021 10:12 AM [facility] Total Protein 6.4 6.3 - 7.9 g/dL 04/29/2021 10:12 AM [facility] Albumin, Plasma 3.7 3.5 - 5.2 g/dL 04/29/2021 10:12 AM [facility] AST, Plasma 21 12 - 40 U/L 04/29/2021 10:12 AM [facility] ALT, Plasma 13 11 - 41 U/L 04/29/2021 10:12 AM [facility] Alkaline Phosphatase, Plasma 96 40 - 115 U/L 04/29/2021 10:12 AM [facility] Total Bilirubin, Plasma 0.3 0.2 - 1.1 mg/dL 04/29/2021 10:12 AM [facility] eGFR >60 >60 mL/min/1.7 3m*2 04/29/2021 10:12 AM [facility] Comment:eGFR = estimated GFR ; [...] >60 >60 mL/min/1.7 3m*2 04/29/2021 10:12 AM [facility] Comment:eGFR = estimated GFR ; [...] 9:11 AM EST 04/29/2021 9:33 AM EST Divine Carpenter MD LAB BLOOD ORDERABLES Final R esult Performing Organization Address [facility] Co de Phone Number [facility] [address] [place] [address] * (ABNORMAL) Magnesium (04/29/2021 9:11 AM EST) Magnesium, Plasma 1.7(L) 1.9 - 2.4 mg/dL 04/29/2021 10:12 AM EST [facility] Blood Blood sample taken from central line / Unknown Venipuncture / Unknown 04/29/2021 9:11 AM EST 04/29/2021 9:33 AM EST Divine Carpenter MD LAB BLOOD ORDERABLES Final R [facility] Performing Organization Address [facility] Co de Phone Number [facility] [address] [place] [address] documented in this encounter Visit Diagnoses Diagnosis 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, unspecified site documented in this encounter Administered Medications Inactive Administered Medications - up to 3 most recent administrations Medication Order MAR Action Action Date Dose Rate Site aprepitant (Cinvanti) 130 MG/18ML IV 130 mg 130 mg, Intravenous, Once, 1 dose, On Wed04/29/21 at 1200, RoutineIndications:Cancer of larynx (CMS/HCC) New Bag 04/29/2021 11:57 AM EST 130 mg 540 mL/hr CARBOplatin (Paraplatin) 750 mg in sodium chloride 0.9 % 250 mL chemo IVPB 750 mg (Target AUC = 5), Intravenous, at 740 mL/hr, Administer over 30 Minutes, Once, Hazardous Drug-Tier 1 Precautions. Dispose in BLACK Hazardous Waste Container. Chemotherapy: refer to A14-065., On Wed04/29/21 at 1330, For 1 dose, NS 250 mLIndications:Cancer of larynx (CMS/HCC) New Bag 04/29/2021 12:51 PM EST 750 mg 740 mL/hr dexamethasone (Decadron) tablet 12 mg 12 mg, Oral, Once, 1 dose, On Wed04/29/21 at 1200, RoutineIndications:Cancer of larynx (CMS/HCC) Given 04/29/2021 11:54 AM EST 12 mg fluorouracil (Adrucil) 8,750 [...] Chemotherapy: refer to A14-065., First dose on Wed04/29/21 at 1400, For 1 dose, NS 230 mL (Elastometric Pump)Indications:Cancer of larynx (CMS/HCC) Given 04/29/2021 2:05 PM EST 8,750 mg 2.4 mL/hr magnesium oxide (Mag-Ox) tablet 400 mg 400 mg, Oral, Once, 1 dose, On Wed04/29/21 at 1045, RoutineIndications:Cancer of larynx (CMS/HCC) Given 04/29/2021 10:32 AM EST 400 mg ondansetron ODT (Zofran-ODT) disintegrating tablet 16 mg 16 mg, Oral, Once, 1 dose, On Wed04/29/21 at 1200, RoutineIndications:Cancer of larynx (CMS/HCC) Given 04/29/2021 11:54 AM EST 16 mg documented in this encounter Additional Health Concerns Assessment Noted Time A fall risk assessment has been complete d for the patient 04/29/2021 8:57 AM EST documented as of this encounter Care Teams Decal Decorator Relationship Specialty Start Date End Date Michele Wright MD [address] [place] [id number] PCP - General 10/11/20 Edgar Szymanski MD [address] [facility] [address] [place] [address] Radiation Oncologist Radiation Therapy 03/14/20 4 Shun Hurst MD [address] [facility] [address] [place] [address] Surgeon Neurosurgery 02/24/21 documented as of this encounter
--- OUTSIDE RECORDS SUMMARY | 2024-05-03 13:43 | XMS_ITS | Encounter Summary ---
Author Organization [facility] Address [address] [place] [address] Care Team Providers Care Biomedical Analytical Scientist Name Role Phone Michele Wright MD Primary Care Provider + [phone] Edgar Szymanski MD Unavailable [phone] Shun Hurst MD Unavailable [phone] Reason for Referral * Imaging (Routine) - Closed Specialty Diagnoses / Procedures Referred By Contac t Referred To Contact Radiology Diagnoses Cancer of larynx (CMS/HCC) Procedures CT Soft Tissue Neck w IV Contrast Bailey Ellis MD [address] [address] Phone: tel: fax: Referral ID Status Reason Start Date Expiration Date Visits Re quested Visits Authorized [id number] Closed 03/09/2021 09/08/2022 1 1 * Imaging (Routine) - Closed Specialty Diagnoses / Procedures Referred By Contac t Referred To Contact Radiology Diagnoses Cancer of larynx (CMS/HCC) Procedures CT Chest w IV Contrast Bailey Ellis MD [address] [address] Phone: tel: fax: Referral ID Status Reason Start Date Expiration Date Visits Re quested Visits Authorized [id number] Closed 03/09/2021 09/08/2022 1 1 Reason for Visit * Imaging (Routine) - Closed Specialty Diagnoses / Procedures Referred By Ortega t Referred To Contact Radiology Diagnoses Cancer of larynx (CMS/HCC) Procedures CT Soft Tissue Neck w IV Contrast Bailey Ellis MD [address] [place] [address] Phone: tel: fax: Referral ID Status Reason Start Date Expiration Date Visits Re quested Visits Authorized [id number] Closed 03/09/2021 09/08/2022 1 1 Encounter Details Date Type Department Care Team (Latest Contact Info) Description 05/08/2021 12:15 PM EST - 05/08/2021 11:59 PM EST Hospital Encounter [facility] Radiology [address] [place] [address] Cancer of larynx (CMS/HCC) Discharge Disposition: Home [...] AM EST documented as of this encounter Discharge Instructions * Discharge Instructions* Bryant Wilson - 05/08/2021 12:37 PM EST Images from the original note [...] & Respiratory [address] [facility], [address]nd [place] [address] 07/17/2024 1:30 PM EST Appointment [facility] Radiology [address] [place] [address] 07/20/2024 2:50 PM EST Office Visit Pav [facility] Head, Neck & Respiratory [address] [facility], [address]nd [place] [address] Bailey Ellis MD [address] [facility] [address] [place] [address] documented as of this encounter Procedures Procedure Name Priority Date/Time Associated Diagnosis Comments CT CHEST W IV CONTRAST Routine 05/08/2021 1:07 PM EST Cancer of larynx (CMS/HCC) CT SOFT TISSUE NECK W IV CONTRAST Routine 05/08/2021 1:07 PM EST Cancer of larynx (CMS/HCC) documented in this encounter Results * CT Soft Tissue Neck w IV Contrast (05/08/2021 1:07 PM EST) Anatomical Region Laterality Modality Neck Computed Tomogra phy Impressions 05/08/2021 4:50 PM EST 1. No significant cervical adenopathy is present. 2. There is no pharyngeal, laryngeal or soft tissue mass. No definite evidence of tumor recurrence. CRITICAL RESULT: No. COMMUNICATION: Per this written report. Signed by Anibal Esther on ??05/08/2021 4:50 PM Narrative 05/08/2021 4:50 PM EST Exam/Procedure: CT SOFT TISSUE NECK W IV CONTRAST ordered by BAILEY ELLIS, [id number] CLINICAL INDICATION: Head/neck cancer, assess treatment response. Recurrent stage IV cc glottic cancer. Status post total laryngectomy with limited neck dissection, ALT flap reconstruction with partial glossectomy. Right upper lobe lung metastasis. Esophageal stenosis. TECHNIQUE: Helical images were obtained through the neck, and reconstructed in the axial plane on bone and soft tissue algorithm at multiple slice thicknesses. Coronal and sagittal reformatted images were created. 100 mL of Omnipaque 300 were administered intravenously. Total DLP (Dose-Length Product): 792 mGy*cm. Please note: The reported value represents the total of one or more individual components during the CT acquisition on this date and at this time, and as such, the same value may appear in more than one CT report depending on the interpreting/reporting physicians. COMPARISON: CT scan of March 03, 4 months prior. FINDINGS: Diagnostic Quality: Adequate. Soft Tissues: Stable posttreatment changes without new mass or altered reticulation. Stable SCM/trapezius atrophy. Absent right jugular. Lymph Nodes: No significant cervical adenopathy is present. Status post BND. Pharynx/Larynx: Stable postsurgical appearance with TEP in place. No new mass or enhancement, particularly at anastomotic sites. There is some thickening of the lower cervical periesophageal soft tissues at junction with neopharynx that appears stable and without enhancement. Oral Cavity: No large masses are present within the oral cavity within the limitations of the study. Edentulous. Stable right hemiglossectomy and denervation changes. Stable posttreatment changes at floor of mouth. Parapharyngeal Space: No lesions are present within the parapharyngeal space. Stable atherosclerotic disease with stable narrowing of proximal internal carotid arteries to 3 mm bilaterally. Salivary Glands: The parotid glands are normal in size without definite focal lesions.Stable postsurgical absence of submandibular glands. Thyroid: Stable small thyroid gland remnants. Orbits/Paranasal Sinuses/Skull Base: No orbital masses are present within the visualized portions of the orbits. The visualized paranasal sinuses are grossly clear. Within the skull base, there is no focal lesion or destructive process. Bones/Spine: There are degenerative changes of the spine. No bony destructive lesion is present. Calcification of posterior longitudinal ligament as well as anterior clawlike osteophytes raising question of DISH. Thoracic Inlet and Lung Apices: Within the limitations of the study, no large masses are present at the thoracic inlet. Postsurgical changes at the right lung apex without apparent lung lesion. Slightly enlarged hypertrophic right azygous node. The lung apices are grossly clear. Please see the separate report for the chest CT scan for discussion of intrathoracic findings. Other Findings: None. Procedure Note Anibal Santana MD - 05/08/2021 Exam/Procedure: CT SOFT TISSUE NECK W IV CONTRAST ordered by BAILEY MOREIRA, [id number] CLINICAL INDICATION: Head/neck cancer, assess treatment response. Recurrent stage IV cc glotticcancer. Status post total laryngectomy with limited neck dissection, ALTflap reconstruction with partial glossectomy. Right upper lobe lungmetastasis. Esophageal stenosis. TECHNIQUE: Helical images were obtained through the neck, and reconstructed in theaxial plane on bone and soft tissue algorithm at multiple slicethicknesses. Coronal and sagittal reformatted images were created. 100 mLof Omnipaque 300 were administered intravenously. Total DLP (Dose-Length Product): 792 mGy*cm. Please note: The reportedvalue represents the total of one or more individual components during theCT acquisition on this date and at this time, and as such, the same valuemay appear in more than one CT report depending on theinterpreting/reporting physicians. COMPARISON: CT scan of March 03, 4 months prior. FINDINGS: Diagnostic Quality: Adequate. Soft Tissues: Stable posttreatment changes without new mass or alteredreticulation. Stable SCM/trapezius atrophy. Absent right jugular. Lymph Nodes: No significant cervical adenopathy is present. Status postBND. Pharynx/Larynx: Stable postsurgical appearance with TEP in place. No newmass or enhancement, particularly at anastomotic sites. There is somethickening of the lower cervical periesophageal soft tissues at junctionwith neopharynx that appears stable and without enhancement. Oral Cavity: No large masses are present within the oral cavity within thelimitations of the study. Edentulous. Stable right hemiglossectomy anddenervation changes. Stable posttreatment changes at floor of mouth. Parapharyngeal Space: No lesions are present within the parapharyngealspace. Stable atherosclerotic disease with stable narrowing of proximalinternal carotid arteries to 3 mm bilaterally. Salivary Glands: The parotid glands are normal in size without definitefocal lesions.Stable postsurgical absence of submandibular glands. Thyroid: Stable small thyroid gland remnants. Orbits/Paranasal Sinuses/Skull Base: No orbital masses are present withinthe visualized portions of the orbits. The visualized paranasal sinusesare grossly clear. Within the skull base, there is no focal lesion ordestructive process. Bones/Spine: There are degenerative changes of the spine. No bonydestructive lesion is present. Calcification of posterior longitudinalligament as well as anterior clawlike osteophytes raising question ofDISH. Thoracic Inlet and Lung Apices: Within the limitations of the study, nolarge masses are present at the thoracic inlet. Postsurgical changes atthe right lung apex without apparent lung lesion. Slightly enlargedhypertrophic right azygous node. The lung apices are grossly clear. Pleasesee the separate report for the chest CT scan for discussion ofintrathoracic findings. Other Findings: None. IMPRESSION: 1. No significant cervical adenopathy is present. 2. There is no pharyngeal, laryngeal or soft tissue mass. No definiteevidence of tumor recurrence. CRITICAL RESULT: No. COMMUNICATION: Per this written report. Signed by Anibal Santana on 05/08/2021 4:50 PM us Bailey Ellis MD IMG CT PROCEDURES Final Resu lt * CT Chest w IV Contrast (05/08/2021 1:07 PM EST) Anatomical Region Laterality Modality Chest Computed Tomogra phy Impressions 05/08/2021 2:41 PM EST No acute airspace disease. Patulous esophagus suggesting esophageal dysmotility. CRITICAL RESULT: No. COMMUNICATION: Per this written report. Signed by Brianna Carranza on ??05/08/2021 2:41 PM Narrative 05/08/2021 2:41 PM EST Exam/Procedure: CT CHEST W IV CONTRAST ordered by BAILEY ELLIS, [id number] CLINICAL INDICATION: Cough, persistent TECHNIQUE: Multiple CT helical images were obtained from thoracic inlet through upper abdomen with administration of IV contrast. 100 ??mL of Omnipaque-300 were administered intravenously. ?? Total DLP (Dose-Length Product): 791.94 mGy.cm. Please note: The reported value represents the total of one or more individual components during the CT acquisition on this date and at this time, and as such, the same value may appear in more than one CT report depending on the interpreting/reporting physicians. COMPARISON: March 03, 2021 FINDINGS: Mediastinum and Pleura: Tracheostomy tube remains in place. No enlarging lymph nodes are appreciated. Multiple venous collaterals within right-sided chest, present previously. No pleural or pericardial effusions. Patulous esophagus. Lungs: Linear scarring within the right upper lobe. Subpleural mild scarring within anterior right upper lobe and right middle lobe. Linear scarring within left lower lobe. No acute airspace disease. No discrete suspicious lung lesions. Upper Abdomen: No suspicious findings in the interval. Musculoskeletal: No suspicious lytic or sclerotic lesion. Procedure Note Brianna Carranza MD - 05/08/2021 Exam/Procedure: CT CHEST W IV CONTRAST ordered by BAILEY ELLIS,[id number] CLINICAL INDICATION: Cough, persistent TECHNIQUE: Multiple CT helical images were obtained from thoracic inlet through upperabdomen with administration of IV contrast. 100 mL of Omnipaque-300 wereadministered intravenously. Total DLP (Dose-Length Product): 791.94 mGy.cm. Please note: The reportedvalue represents the total of one or more individual components during theCT acquisition on this date and at this time, and as such, the same valuemay appear in more than one CT report depending on theinterpreting/reporting physicians. COMPARISON: March 03, 2021 FINDINGS: Mediastinum and Pleura: Tracheostomy tube remains in place. No enlarginglymph nodes are appreciated. Multiple venous collaterals withinright-sided chest, present previously. No pleural or pericardialeffusions. Patulous esophagus. Lungs: Linear scarring within the right upper lobe. Subpleural mildscarring within anterior right upper lobe and right middle lobe. Linearscarring within left lower lobe. No acute airspace disease. No discretesuspicious lung lesions. Upper Abdomen: No suspicious findings in the interval. Musculoskeletal: No suspicious lytic or sclerotic lesion. IMPRESSION: No acute airspace disease. Patulous esophagus suggesting esophagealdysmotility. CRITICAL RESULT: No. COMMUNICATION: Per this written report. Signed by Briannajessica Carranza on 05/08/2021 2:41 PM Bailey Ellis MD IMG CT PROCEDURES [...] as needed, 1 dose, Starting on Nenita 05/08/21 at 1319, Until Nenita 05/08/21 at 1328, Routine, Intraprocedure, line care Given 05/08/2021 1:28 PM EST 500 Units iohexol (OMNIPaque) 300 MG/ML injection 100 mL 100 mL, Intravenous, Once in imaging, 1 dose, Starting on Nenita 05/08/21 at 1237, Until Nenita 05/08/21 at 1306, Routine, Imaging Protocol Orders Given 05/08/2021 1:06 PM EST 100 mL documented in this encounter Additional Health Concerns Assessment Noted Time A fall risk assessment has been complete d for the patient 05/03/2021 2:18 PM EST documented as of this encounter Care Teams Biomedical Analytical Scientist Relationship Specialty Start Date End Date Michele Wright MD [address] [place] [address] PCP - General 10/11/20 Edgar Szymanski MD [address] [place] [address] Radiation Oncologist Radiation Therapy 03/14/20 4 Shun Hurst MD [address] [place] [address] Surgeon Neurosurgery 02/24/21 documented as of this encounter
--- OUTSIDE RECORDS SUMMARY | 2024-05-03 13:43 | XMS_ITS | Encounter Summary ---
Author Organization Healthcare Address [address] [place], [place] [address] Care Team Providers Care Spectral Scientist Name Role Phone Michele Wright MD Primary Care Provider + [phone] Edgar Szymanski MD Unavailable [phone] Shun Hurst MD Unavailable [phone] Reason for Visit * Reason Comments Follow-up Encounter Details Date Type Department Care Team ([facility] Contact Info) Description 04/07/2021 2:30 PM EST Office Visit Pav CC Head, Neck & Respiratory 800 [facility], [address]nd [place] [address] Mary Correia MD [address] [place] [address] Dysphagia, pharyngeal (Primary Dx); Cancer of larynx (CMS/HCC) Social History Tobacco [...] Sign Reading Time Taken Comments Blood Pressure 144/77 04/07/2021 1:22 PM EST Pulse 46 04/07/2021 1:22 PM EST Temperature 36.5 ??C (97.7 ??F) 04/07/2021 1:22 PM ES T Respiratory Rate 16 04/07/2021 1:22 PM EST Oxygen Saturation 97% 04/07/2021 1:22 PM EST Inhaled Oxygen Concentration - - Weight 96 kg (211 lb 10.3 oz) 04/07/2021 1:22 PM EST Height - - Body Mass Index 29.52 04/04/2021 3:00 PM EDT documented in this encounter Miscellaneous Notes * Progress Notes - Mary Correia MD - 04/07/2021 2:30 PM EST Department of Otorhinolaryngology / Head and Neck Surgery Division of Surgical Oncology and Microvascular Reconstruction ?? DIAGNOSIS: 1. Squamous cell carcinoma, [id number] 2. [id number] 3. 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 11/21/19: right VATS RUL lung wedge resection/ mediastinal lymph node dissection/multilevel intercostal nerve block 03/19: Multi-20 with pembrolizumab and SBRT 01/18: Carboplatin/cetuximab ?? Interval History: Mr. Barreto returns today for continued follow-up. He underwent a swallow test which shows stenosis. He is set to undergo dilation with Dr. Hernandez. ?? TOBACCO STATUS: No longer smoking FEEDING TUBE STATUS: No feeding tube at this time Last TSH: ??03/03/2021 1.75 GENERAL: Patient is awake, non-toxic appearing, and in no acute distress. Patient is dysarthric with TEP voice. SKIN: No overtly ulcerated, cellulitic, or indurated lesions of the head or neck. HEAD: Normocephalic and atraumatic. Sinuses are non-tender to palpation. ORAL CAVITY: No mucosal masses or lesions are appreciated. There is appropriate incisor opening without trismus. Tongue is soft and mobile OROPHARYNX: No mucosal masses or lesions are appreciated. The uvula is midline NECK: Dense lymphedema. Slightly better than previous. TEP has a small amount of skin growth over the 9'o'clock position. NEUROLOGICAL: FN intact, left hypoglossal weakness ABDOMEN: Obese, soft, nontender, nondistended ? ASSESSMENT AND PLAN: 1. 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 2. Esophageal stenosis ? 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 Physical examination does not demonstrate any concerning findingswithin the head neck. The patient is having some worsening in his ability to swallow- he is set to undergo dilation with Dr. Hernandez. A replacement TEP was given to Dr. Hernandez in case he would like to replace this at the time of surgery. documented in this encounter Plan of Treatment Upcoming Encounters Date Type Department Care Team (Late st Contact Info) Description 07/17/2024 12:30 PM EST Clinical Support Pav CC Head, Neck & Respiratory [address] [facility], [address] [place] [address] 07/17/2024 1:30 PM EST Appointment [facility] Radiology [address] [place] [address] 07/20/2024 2:50 PM EST Office Visit Pav CC Head, Neck & Respiratory [address] [facility], [address] [place] [address] Divine Carpenter MD 800 [facility] [address] [place] [address] documented as of this encounter Visit Diagnoses Diagnosis Dysphagia, pharyngeal- Primary Dysphagia, pharyngeal phase 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, unspecified site documented in this encounter Additional Health Concerns Assessment Noted Time A fall risk assessment has been complete d for the patient 04/07/2021 1:21 PM EST documented as of this encounter Care Teams Spectral Scientist Relationship Specialty Start Date End Date Michele Wright MD [address] [place] [address] PCP - General 10/11/20 Edgar Szymanski MD [address] [facility] [address] [place] [address] Radiation Oncologist Radiation Therapy 03/14/20 4 Shun Hurst MD [address] [facility] [address] [place] [address] Surgeon Neurosurgery 02/24/21 documented as of this encounter
--- OUTSIDE RECORDS SUMMARY | 2024-05-03 13:43 | XMS_ITS | Encounter Summary ---
Author Organization Healthcare Address [address] [place] [address] Care Team Providers Care Die Maintenance Technician Name Role Phone Michele Wright MD Primary Care Provider + [phone] Edgar Szymanski MD Unavailable [phone] Shun Hurst MD Unavailable [phone] Encounter Details Date Type Department Care Team (Latest Contact Info) Description 04/21/2021 Travel Social History Tobacco Use Types Packs/Day [...] Upcoming Encounters Date Type Department Care Team ([facility] st Contact Info) Description 07/17/2024 12:30 PM EST Clinical Support Pav CC Head, Neck & Respiratory 800 [facility], [address] [place] [address] 07/17/2024 1:30 PM EST Appointment [facility] Radiology [address] [place] [address] 07/20/2024 2:50 PM EST Office Visit Pav CC Head, Neck & Respiratory [address] [facility], [address] [place] [address] Divine Carpenter MD 800 [facility] [address] [place] [address] documented as of this encounter Visit Diagnoses Not on filedocumented in this encounter Additional Health Concerns Assessment Noted Time A fall risk assessment has been complete d for the patient 04/21/2021 9:56 AM EST documented as of this encounter Care Teams Die Maintenance Technician Relationship Specialty Start Date End Date Michele Wright MD [address] [place] [address] PCP - General 10/11/20 Edgar Szymanski MD 800 [facility] [address] [place] [address] Radiation Oncologist Radiation Therapy 03/14/20 4 Shun Hurst MD [address] [facility] [address] [place] [address] Surgeon Neurosurgery 02/24/21 documented as of this encounter
--- OUTSIDE RECORDS SUMMARY | 2024-05-03 13:43 | XMS_ITS | Encounter Summary ---
Author Organization Healthcare Address [address] [place] [address] Care Team Providers Care Color Print Inspector Name Role Phone Michele Wright MD Primary Care Provider [phone] Edgar Szymanski MD Unavailable [phone] Shun Hurst MD Unavailable [phone] Encounter Details Date Type Department Care Team ([facility] st Contact Info) Description 04/23/2021 Orders Only [facility] [address] [place] [address] Amadou Barragan, PharmD [address] [address] Social History Tobacco Use Types Packs/Day Years [...] Respiratory 800 [facility], [address]nd [place] [address] 07/17/2024 1:30 PM EST Appointment [facility] Radiology [address] [place] [address] 07/20/2024 2:50 PM EST Office Visit Pav CC Head, Neck & Respiratory 800 [facility], [address] [place] [address] Divine Carpenter MD 800 [facility] [address] [place] [address] documented as of this encounter Visit Diagnoses Not on filedocumented in this encounter Additional Health Concerns Assessment Noted Time A fall risk assessment has been complete d for the patient 04/21/2021 9:56 AM EST documented as of this encounter Care Teams Color Print Inspector Relationship Specialty Start Date End Date Michele Wright MD [address] [place] [address] PCP - General 10/11/20 Edgar Szymanski MD [address] [facility] [address] [place] [address] Radiation Oncologist Radiation Therapy 03/14/20 4 Shun Hurst MD [address] [facility] [address] [place] [address] Surgeon Neurosurgery 02/24/21 documented as of this encounter
--- OUTSIDE RECORDS SUMMARY | 2024-05-03 13:43 | XMS_ITS | Encounter Summary ---
Author Organization [facility] Address [address] [id number] Care Team Providers Care Special Day Class Teacher Name Role Phone Michele Wright MD Primary Care Provider + [phone] Edgar Szymanski MD Unavailable [phone] Shun Hurst MD Unavailable [phone] Reason for Visit * Episode Based Medications (Routine) - Closed Specialty Diagnoses / Procedures Referred By Ortega t Referred To Contact Diagnoses Cancer of larynx (CMS/HCC) Divine Carpenter MD [address] [facility] [address] [place] [address] Phone: tel: fax: [facility] [address] [place] [address] Phone: tel: Referral ID Status Reason Start Date Expiration Date Visits Re quested Visits Authorized [id number] Closed 02/17/2021 10/25/2021 1 78 Encounter Details Date Type Department Care Team (Latest Contact Info) Description 04/21/2021 9:44 AM EST - 04/21/2021 11:59 PM EST Hospital Encounter [facility] [address] [place] [address] Cancer of larynx (CMS/HCC) Discharge [...] Sign Reading Time Taken Comments Blood Pressure 105/61 04/21/2021 9:56 AM EST Pulse 57 04/21/2021 9:56 AM EST Temperature 36.9 ??C (98.5 ??F) 04/21/2021 9:56 AM ES T Respiratory Rate 16 04/21/2021 9:56 AM EST Oxygen Saturation 92% 04/21/2021 9:56 AM EST Inhaled Oxygen Concentration - - Weight 98 kg (216 lb 0.8 oz) 04/21/2021 9:56 AM EST Height 177.8 cm (5' 10 ) 04/21/2021 9:56 AM EST Body Mass Index 31 04/21/2021 9:56 AM EST documented in this encounter Medications [...] [facility] Res[facility] 800 [facility], [address] [place] [address] 07/17/2024 1:30 PM EST Appointment [facility] Radiology [address] [place] [address] 07/20/2024 2:50 PM EST Office Visit [facility] Respiratory [address] [facility], 2nd [place] [address] Divine Carpenter MD [address] [facility] Diane Zuniga [facility] [address] [place] [address] documented as of this encounter Visit Diagnoses Diagnosis 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, unspecified site documented in this encounter Additional Health Concerns Assessment Noted Time A fall risk assessment has been complete d for the patient 04/21/2021 9:56 AM EST documented as of this encounter Care Teams Special Day Class Teacher Relationship Specialty Start Date End Date Michele Wright MD [address] [place] [address] PCP - General 10/11/20 Edgar Szymanski MD [address] [facility] [address] [place] [address] Radiation Oncologist Radiation Therapy 03/14/20 4 Shun Hurst MD [address] [facility] [address] [place] [address] Surgeon Neurosurgery 02/24/21 documented as of this encounter
--- OUTSIDE RECORDS SUMMARY | 2024-05-03 13:43 | XMS_ITS | Encounter Summary ---
Author Organization [facility] Address [address] [place] [address] Care Team Providers Care Continuous Improvement Manager Name Role Phone Michele Wright MD Primary Care Provider + [phone] Edgar Szymanski MD Unavailable [phone] Shun Hurst MD Unavailable [phone] Reason for Visit * Reason Onset Date Comments Med Refill 05/02/2021 Med Refill 05/06/2021 Encounter Details Date Type Department Care Team (Late st Contact Info) Description 05/02/2021 Refill [facility] Head[facility] Neck [facility] Respiratory 800 [facility], 2nd [place] [address] [facility] Social History [...] & Respiratory [address] [facility], 2nd [place] [address] 07/17/2024 1:30 PM EST Appointment [facility] Radiology [address] [place] [address] 07/20/2024 2:50 PM EST Office Visit [facility] Head[facility] Neck & Respiratory [address] [facility], 2nd [place] [address] Divine Carpenter MD [address] [facility] Diane Zuniga dg [address] [place] [address] documented as of this encounter Visit Diagnoses Not on filedocumented in this encounter Additional Health Concerns Assessment Noted Time A fall risk assessment has been complete d for the patient 04/29/2021 8:57 AM EST documented as of this encounter Care Teams Continuous Improvement Manager Relationship Specialty Start Date End Date Michele Wright MD [address] [place] [address] PCP - General 10/11/20 Edgar Szymanski MD [address] [facility] [address] [place] [address] Radiation Oncologist Radiation Therapy 03/14/20 4 Shun Hurst MD [address] [facility] [address] [place] [address] Surgeon Neurosurgery 02/24/21 documented as of this encounter
--- OUTSIDE RECORDS SUMMARY | 2024-05-03 13:43 | XMS_ITS | Encounter Summary ---
Author Organization Healthcare Address [address] [place] [address] Care Team Providers Care Round Corner Cutter Operator Name Role Phone Michele Wright MD Primary Care Provider + [phone] Edgar Szymanski MD Unavailable [phone] Shun Hurst MD Unavailable [phone] Encounter Details Date Type Department Care Team (Latest Contact Info) Description 04/09/2021 Travel Social History Tobacco Use Types Packs/Day [...] Upcoming Encounters Date Type Department Care Team ([facility] st Contact Info) Description 07/17/2024 12:30 PM EST Clinical Support [facility] Head[facility] Neck & Respiratory 800 [facility], 2nd [place] [address] 07/17/2024 1:30 PM EST Appointment [facility] Radiology [address] [place] [address] 07/20/2024 2:50 PM EST Office Visit Pav CC Head, Neck & Respiratory 800 [facility], 2nd [place] [address] Divine Carpenter MD 800 [facility] Diane Zuniga dg [address] [place] [address] documented as of this encounter Visit Diagnoses Not on filedocumented in this encounter Additional Health Concerns Assessment Noted Time A fall risk assessment has been complete d for the patient 04/07/2021 1:21 PM EST documented as of this encounter Care Teams Round Corner Cutter Operator Relationship Specialty Start Date End Date Michele Wright MD [address] [place] [address] PCP - General 10/11/20 Edgar Szymanski MD 800 [facility] [address] [place] [address] Radiation Oncologist Radiation Therapy 03/14/20 4 Shun Hurst MD [address] [facility] [address] [place] [address] Surgeon Neurosurgery 02/24/21 documented as of this encounter
--- OUTSIDE RECORDS SUMMARY | 2024-05-03 13:43 | XMS_ITS | Encounter Summary ---
Author Organization Healthcare Address [address] [id number] Care Team Providers Care Pit Hoist Operator Name Role Phone Michele Wright MD Primary Care Provider + [phone] Edgar Szymanski MD Unavailable [phone] Shun Hurst MD Unavailable [phone] Reason for Visit * Auth/Cert Specialty Diagnoses / Procedures Referred By Ortega harden Referred To Contact Diagnoses Dysphagia Dysphagia [R13.10] Procedures CO ESOPHAGOSCOPY FLEX BALLOON DILAT <30 MM DIAM CO ESOPHAGOSCOPY FLEXIBLE TRANSORAL DIAGNOSTIC CO ESOPHAGOSCOPY FLEXIBLE TRANSORAL WITH BIOPSY CO ESOPHAGOSCOPY FLEXIBLE GUIDE WIRE DILATION CO ESOPHAGOSCOPY DILATE ESOPHAGUS BALLOON 30 MM CO LARYNGOSCOPY,DIRCT,OP SCOPE,BIOPSY FLEXIBLE ESOPHAGEAL BALLOON DILATION, POSS BIOPSY, POSS SUPER DILATION Gil Hernandez MD [address] [address] Phone: tel: fax: [facility] [address] [place] [address] Phone: tel: Referral ID Status Reason Start Date Expiration Date Visits Re quested Visits Authorized [id number] 1 1 Encounter Details Date Type Department Care Team (Late st Contact Info) Description 04/10/2021 1:20 PM EST - 04/10/2021 2:15 PM EST Surgery [facility] [address] [place] [address] Gil Hernandez MD [address] [address] FLEXIBLE ESOPHAGEAL BALLOON DILATION, POSS BIOPSY, POSS SUPER DILATION [57923 (CPT??)] Surgery Details Date/Time Status Location OR Service Patient Class Case Class Case Type Trauma Case? 04/10/2021 1:20 PM Posted [facility] OR [address] [place] [address] Outpatient Surgery E-Electiv e Panel 1 Procedure LRB Anes Op Region Wound Class Comments FLEXIBLE ESOPHAGEAL BALLOON DILATION, POSS BIOPSY, POSS SUPER DILATION N/A Class II/ Clean Contaminat ed Surgeon Surgeon Role Service Panel Gil Hernandez MD Primary ENT 1 documented [...] Sign Reading Time Taken Comments Blood Pressure 131/73 04/10/2021 1:26 PM EST Pulse 46 04/10/2021 1:26 PM EST Temperature 36 ??C (96.8 ??F) 04/10/2021 1:26 PM EST Respiratory Rate 20 04/10/2021 1:26 PM EST Oxygen Saturation 95% 04/10/2021 1:26 PM EST Inhaled Oxygen Concentration - - [...] medicines you take. This includes prescription medicines, rtyj-omz-yjufzgo medicines, herbs, vitamins, and other supplements. Be [...] ?? Bleeding ?? Black, tarry, or bloody??stools Marialuisa last reviewed this educational content on 10/29/2018 ?? [phone] [employer]. All rights reserved. This information is not [...] may interact withyour prescription medicines or other uvjw-aok-kgsindu (OTC) medicines. Some prescription medicines have acetaminophen [...] the possible dangers of taking these medicines. Marialuisa last reviewed this educational content on 07/29/2018 ?? [phone] [employer]. All rights reserved. This information is not [...] BIOPSY, POSS SUPER DILATION Date: 04/11/21 Location: [facility] OR Name: Anibal Barreto, : 1965, Diagnoses: Pre-op Diagnosis * Dysphagia [R13.10] Post-op Diagnosis * Dysphagia [R13.10] Procedure(s): DILATION, ESOPHAGUS CO ESOPHAGOSCOPY FLEX BALLOON DILAT <30 MM DIAM CO LARYNGOSCOPY,DIRCT,OP SCOPE,BIOPSY CO ESOPHAGOSCOPY FLEX BALLOON DILAT <30 MM DIAM Attending Surgeon(s): * Gil Hernandez - Primary Nurse Anesthetist(s): none Anesthesia: * No anesthesia type entered * ASA: III Blood Administration: Blood Product Administration History None Estimated Blood Loss: Minimal Drains: * None in log * Specimen: Specimens ID Source Type Tests Collected By Collected At Frozen? Priority Lab ID 1 Oropharynx Tissue ?? SURGICAL PATHOLOGY EXAM Gil Hernandez MD 04/10/21 1668 No [id number] Description: POSTERIOR OROPHARNGERAL WALL Findings: Fungal infection [...] [facility], 2nd [place] [address] 07/17/2024 1:30 PM EST Appointment [facility] [address] [place] [address] 07/20/2024 2:50 PM EST Office Visit Pav [facility] Head[facility] Neck & Respiratory 800 [facility], 2nd [place] [address] Divine Carpenter MD 800 [facility] [address] [place] [address] documented as of this encounter Procedures Procedure Name Priority Date/Time Associated Diagnosis Comments SURGICAL PATHOLOGY EXAM Routine 04/10/2021 4:56 PM EST Dysphagia CO ESOPHAGOSCOPY FLEX BALLOON DILAT <30 MM DIAM 04/10/2021 4:24 PM EST Dysphagia documented in this encounter Results * Surgical Pathology Exam (04/10/2021 4:56 PM EST) Case Report Surgical Pathology ?Case: [id number] ? Authorizing Provider: ??Gil Hernandez MD ? Collected: ? 04/10/2021 1656 ? Ordering Location: ? [facility] ??Received: ?04/11/2021 0710 ? Surgery ? Pathologist: ? Heber Watters, DO ? Specimen: ?Oropharynx, POSTERIOR OROPHARNGERAL WALL ? 1 5:02 PM EST [facility] Final Diagnosis A. OROPHARYNX, POSTERIOR WALL, BIOPSY: - EROSION WITH MICROABSCESSES - GRAM POSITIVE BACILLI PRESENT ON GRAM STAIN - RARE FUNGAL ELEMENTS PRESENT ON GMS STAIN - NEGATIVE FOR CARCINOMA 1 5:02 PM EST [facility] Clinical Information Pre-op diagnosis: Dysphagia [R13.10] 1 5:02 PM EST [facility] Special and Immunohistochemical Stains Special Stain: A1-2 GMS A1-3 Gram (Brown & Brenn) All controls show appropriate reactivity. All immunohistochemi stry, in situ hybridization, and histochemical tests were developed by and are performed at the [facility], [address] [place] [address]. All tests reported here, except those addressing [...] negativity on decalcified specimens. 1 5:02 PM EST [facility] Gross Description A. POSTERIOR OROPHARNGERAL WALL The specimen is received in formalin labeled posterior oropharyngeal wall , and consists of two white-vang tissue fragments measuring 0.5 cm each in greatest dimension. Entirely submitted in cassette A1. Bella Roe 1 5:[address] [facility] Note: A resident was involved in the service. I attest I examined the relevant preparations for the specimens and confirmed the diagnosis or interpretation. 1 5:[address] [facility] Tissue Oropharyngeal structure / Unknown 04/10/2021 4:56 PM EST 04/11/2021 7:10 AM EST Comment:Pre-op diagnosis: Dysphagia [R13.10] Gil Hernandez MD LAB PATHOLOGY ORDERABLES Final R esult [facility] [address] [place] [address] documented in this encounter Visit Diagnoses Diagnosis Dysphagia Dysphagia documented in this encounter Administered Medications [...] 04/10/2021 2:14 PM EST 100 mL/hr 100 mL/hr lactated Ringer's [...] 10 oxymetazoline (Afrin) 0.05 % nasal spray As needed, Starting on Nenita 04/10/21 at 1642, Until Nenita 04/10/21 at 1709, Routine, Intraprocedure Given 04/10/2021 4:42 PM EST 3 sprays sodium chloride 0.9 % flush 10 mL [...] documented as of this encounter Care Teams Pit Hoist Operator Relationship Specialty Start Date End Date Michele Wright MD [address] [place] [address] PCP - General 10/11/20 Edgar Szymanski MD [address] [place] [address] Radiation Oncologist Radiation Therapy 03/14/20 4 Shun Hurst MD [address] [place] [address] Surgeon Neurosurgery 02/24/21 documented as of this encounter
--- OUTSIDE RECORDS SUMMARY | 2024-05-03 13:44 | XMS_ITS | Encounter Summary ---
Author Organization Healthcare Address [address] [place] [address] Care Team Providers Care I O Psychologist Name Role Phone Michele Wright MD Primary Care Provider + [phone] Edgar Szymanski MD Unavailable [phone] Shun Hurst MD Unavailable [phone] Encounter Details Date Type Department Care Team (Latest Contact Info) Description 04/04/2021 2:00 PM EDT Pre-Admission Testing [facility] [address], [address] [place] [address] Tvrlo-Tjtackkoc-Ggxn e syndrome (Primary Dx); Dysphagia, pharyngeal; Tracheostomy dependent ([facility]) Anesthesia Record Procedure Summary Procedure Name Responsible [...] acknowledgement of understanding. 1711 An Stop Meds * Agents No agents on file. * Blood No blood administrations on file. Lines, Drains, and Airways Type Details Placement Removal Single Lumen Implantable Port 03/06/21; 1229; Yes; 03/06/21; Other (Comment); Yes; Yes; Left; Chest; Kwabena Waits 03/06/21 1229 by Radha Norwood RN Single Lumen Implantable Port 03/06/21; 1110; No; Yes; Yes; Left; Chest; ARTURO MD; 04/10/21; 1746 03/06/21 1110 by Kenneth Turcios RN 04/10/21 1746 by Lorena Fisher RN Peripheral IV Placement Date: 04/10/21; Placement Time: 141; Catheter Size: 20 G; Orientation: Posterior, Right; Location: Hand; Site Prep: Chlorhexidine ; Local Anesth: [place]; Technique: Anatomical landmarks; Inserted by: zack adam; Insertion Attempts: 1; Patient Tolerance: Tolerated well; Removal Date: 04/10/21; Removal Time: 174304/10/21 1414 by Balbina Silver RN 04/10/21 1744 by Lorena Fsiher RN documented in this encounter Social History [...] Sign Reading Time Taken Comments Blood Pressure 145/73 04/04/2021 2:09 PM EDT Pulse 44 04/04/2021 2:09 PM EDT Temperature 36.4 ??C (97.5 ??F) 04/04/2021 2:09 PM ED T Respiratory Rate 18 04/04/2021 2:09 PM EDT Oxygen Saturation 98% 04/04/2021 2:09 PM EDT Inhaled Oxygen Concentration - - Weight 96.8 kg (213 lb 6.5 oz) 04/04/2021 2:09 P M EDT Height 177.8 cm (5' 10 ) 04/04/2021 2:09 PM EDT Body Mass Index 30.62 04/04/2021 2:09 PM EDT documented in this encounter Miscellaneous Notes * Preprocedure Instructions - Trista Helm APRN - 04/04/2021 2:00 PM EDT Current Medications Medication Instructions ??? ALPRAZolam (Xanax) 1 MG tablet Take as needed ??? amLODIPine-atorvastatin (Caduet) 10-10 MG tablet Take morning of surgery ??? diphenoxylate-atropine (Lomotil) 2.5-0.025 MG tablet Hold day of surgery ??? gabapentin (Neurontin) 600 MG tablet Take morning of surgery ??? levothyroxine (Synthroid, Levoxyl) 150 MCG tablet Take morning of surgery ??? lisinopril 10 MG tablet Hold day of surgery ??? loperamide (Imodium A-D) 2 MG tablet Hold day of surgery ??? morphine CR (MS Contin) 60 MG 12 hr tablet Take morning of surgery ??? omeprazole OTC (PriLOSEC OTC) 20 MG EC tablet Take morning of surgery ??? ondansetron (Zofran) 8 MG tablet Take as needed ??? oxyCODONE (Roxicodone) 30 MG immediate release tablet Take as needed General Preoperative Instructions You will be called [...] & Respiratory [address], [address] [place] [address] 07/17/2024 1:30 PM EST Appointment [facility] [address] [place] [address] 07/20/2024 2:50 PM EST Office Visit Pav CC Head, Neck & Respiratory [address], [address] [place] [address] Divine Carpenter MD [address] [facility] [address] [place] [address] documented as of this encounter Procedures Procedure Name Priority Date/Time Associated Diagnosis Comments ECG ADULT Routine 04/04/2021 2:14 PM EDT Jrffx-Ogydkuqiw-Cvqcb syndrome documented in this encounter Results * ECG Adult (04/04/2021 2:14 PM EDT) EKG DIAGNOSIS CLASS Abnormal MUSE ECG Ventricular Rate 44 BPM MUSE ECG Atrial Rate 44 BPM MUSE ECG ME Interval 144 ms MUSE ECG QRSD Interval 108 ms MUSE ECG QT Interval 490 ms MUSE ECG QTC Interval 418 ms MUSE ECG P [place] 27 degrees MUSE ECG R [place] 40 degrees MUSE ECG T Wave [place] 24 degrees MUSE ECG Diagnosis Marked sinus bradycardia MUSE ECG Diagnosis ST elevation, probably due to early repolarization MUSE ECG Diagnosis Otherwise normal ECG MUSE ECG Diagnosis Confirmed by Joao Zurita ([id number]) on 04/05/2021 1:44:26 AM MUSE ECG 04/04/2021 2:14 PM EDT 04/05/2021 1:44 AM EDT Trista Helm APRN ECG ORDERABLES Final Result MUSE ECG documented in this encounter Visit Diagnoses Diagnosis 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 [address] [place] [address] Surgeon Neurosurgery 02/24/21 documented as of this encounter
--- OUTSIDE RECORDS SUMMARY | 2024-05-03 13:44 | XMS_ITS | Encounter Summary ---
Author Organization Healthcare Address [address] [place] [address] Care Team Providers Care Singe Winder Name Role Phone Michele Wright MD Primary Care Provider + [phone] Edgar Szymanski MD Unavailable [phone] Shun Hurst MD Unavailable [phone] Encounter Details Date Type Department Care Team (Latest Contact Info) Description 04/04/2021 Travel Social History Tobacco Use Types Packs/Day Years Used Date Smoking Tobacco: Former Cigarettes Q uit: 2000 Smokeless Tobacco: Never Alcohol Use Standard Drinks/Week Comments Not Currently 0 (1 standard drink = 0.6 oz pure alcohol) Alcoholic Drinks/day: Quit consuming alcohol in remote past PHQ-2 Answer Date Recorded Patient Health Questionnaire-2 Score 0 03/10/2021 Sex and Gender Information Value Date Recorded [...] have Coronavirus / COVID-19? No / Unsure 04/04/2021 2:58 PM EDT documented as of this encounter Plan of Treatment Upcoming Encounters Date Type Department Care Team ([facility] st Contact Info) Description 07/17/2024 12:30 PM EST Clinical Support Pav CC Head, Neck & Respiratory 800 [facility], 2nd [place] [address] 07/17/2024 1:30 PM EST Appointment [facility] [address] [place] [address] 07/20/2024 2:50 PM EST Office Visit [facility] CC Head, Neck & Respiratory [address] [place] [address] Divine Carpenter MD [address] [place] [address] documented as of this encounter Visit Diagnoses Not on filedocumented in this encounter Additional Health Concerns Assessment Noted Time A fall risk assessment has been complete d for the patient 04/04/2021 2:59 PM EDT documented as of this encounter Care Teams Singe Winder Relationship Specialty Start Date End Date Michele Wright MD [address] [place] [address] PCP - General 10/11/20 Edgar Szymanski MD [address] [facility] [address] [place] [address] Radiation Oncologist Radiation Therapy 03/14/20 4 Shun Hurst MD [address] [facility] [address] [place] [address] Surgeon Neurosurgery 02/24/21 documented as of this encounter
--- OUTSIDE RECORDS SUMMARY | 2024-05-03 13:44 | XMS_ITS | Encounter Summary ---
Author Organization Healthcare Address [address] [place] [address] Care Team Providers Care Anvilsmith Name Role Phone Michele Wright MD Primary Care Provider + [phone] Edgar Szymanski MD Unavailable [phone] Shun Hurst MD Unavailable [phone] Encounter Details Date Type Department Care Team (Latest Contact Info) Description 04/02/2021 Travel Social History Tobacco Use Types Packs/Day [...] have Coronavirus / COVID-19? No / Unsure 04/02/2021 8:57 AM EDT documented as of this encounter Plan of Treatment Upcoming Encounters Date Type Department Care Team ([facility] st Contact Info) Description 07/17/2024 12:30 PM EST Clinical Support Pav CC Head, Neck & Respiratory 800 [facility], [address]nd [place] [address] 07/17/2024 1:30 PM EST Appointment [facility] [address] [place] [address] 07/20/2024 2:50 PM EST Office Visit Pav CC Head, Neck & Respiratory [address] [place] [address] Divine Carpenter MD [address] [place] [address] documented as of this encounter Visit Diagnoses Not on filedocumented in this encounter Additional Health Concerns Assessment Noted Time A fall risk assessment has been complete d for the patient 03/31/2021 10:03 AM EDT documented as of this encounter Care Teams Anvilsmith Relationship Specialty Start Date End Date Michele Wright MD [address] [place] [address] PCP - General 10/11/20 Edgar Szymanski MD 800 [facility] [address] [place] [address] Radiation Oncologist Radiation Therapy 03/14/20 4 Shun Hurst MD [address] [facility] [address] [place] [address] Surgeon Neurosurgery 02/24/21 documented as of this encounter
--- OUTSIDE RECORDS SUMMARY | 2024-05-03 13:44 | XMS_ITS | Encounter Summary ---
Author Organization [facility] Address [address] [id number] Care Team Providers Care Gem Cutter Name Role Phone Michele [place] MD Primary Care Provider + [phone] Edgar Szymanski MD Unavailable [phone] Shun Hurst MD Unavailable [phone] Reason for Visit * Episode Based Medications (Routine) - Closed Specialty Diagnoses / Procedures Referred By Ortega t Referred To Contact Diagnoses Cancer of larynx (CMS/HCC) Divine Carpenter MD [address] [facility] [address] [place] [address] Phone: tel: fax: [facility] [address] [place] [address] Phone: tel: Referral ID Status Reason Start Date Expiration Date Visits Re quested Visits Authorized [id number] Closed 02/17/2021 10/25/2021 1 78 Encounter Details Date Type Department Care Team (Latest Contact Info) Description 03/14/2021 3:51 PM EDT - 03/14/2021 11:59 PM EDT Hospital Encounter [facility] [address] [place] [address] Cancer of larynx (CMS/HCC) (Primary [...] have Coronavirus / COVID-19? No / Unsure 03/14/2021 3:49 PM EDT documented as of this encounter Last Filed Vital Signs Vital Sign Reading Time Taken Comments Blood Pressure 191/84 03/14/2021 3:52 PM EDT Pulse 48 03/14/2021 3:52 PM EDT Temperature 36.7 ??C (98.1 ??F) 03/14/2021 3:52 PM ED T Respiratory Rate 18 03/14/2021 3:52 PM EDT Oxygen Saturation 98% 03/14/2021 3:52 PM EDT Inhaled Oxygen Concentration - - Weight 97.9 kg (215 lb 13.3 oz) 03/14/2021 3:52 PM EDT Height 177.8 cm (5' 10 ) 03/14/2021 3:52 PM EDT Body Mass Index 30.97 03/14/2021 3:52 PM EDT documented in this encounter Medications at Time of Discharge oxyCODONE (Roxicodone) 30 MG immediate release tablet Take 1-2 tablets (30-60 mg total) by mouth every 6 (six) hours if needed for severe pain. For cancer related pain 200 tablet 02/17/2021 ALPRAZolam (Xanax) 1 MG tablet 1 tab(s) [...] for diarrhea. 90 tablet 3 03/10/2021 04/10/2021 metoprolol tartrate (Lopressor) 50 MG tablet 1 [...] 3 days. 30 tablet 5 02/17/2021 08/18/2021 prochlorperazine (Compazine) 10 MG tabletIndication s:Cancer of larynx (CMS/HCC) Take 1 tablet (10 mg total) by mouth every 6 (six) hours if needed for nausea or vomiting. 30 tablet 5 02/17/2021 07/12/2023 documented as of this encounter Miscellaneous Notes * Addendum Note - Shemar Hodges - 03/14/2021 4:00 PM EDTEncounter addended by: Shemar Hodges on: 03/17/2021 11:21 AM Actions taken: Charge Capture section accepted documented in this encounter Plan of Treatment Upcoming Encounters Date Type Department Care Team (Late st Contact Info) Description 07/17/2024 12:30 PM EST Clinical Support [facility] [address] [facility], [address]nd [place] [phone] 07/17/2024 1:30 PM EST Appointment [facility] [address] [place] [phone] 07/20/2024 2:50 PM EST Office Visit [facility] [address] [facility], [address] [place] [address] Divine Carpenter MD [address] [facility] [address] [place] [address] documented as of this encounter Visit Diagnoses Diagnosis 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, unspecified site documented in this encounter Additional Health Concerns Assessment Noted Time A fall risk assessment has been complete d for the patient 03/14/2021 3:52 PM EDT documented as of this encounter Care Teams Gem Cutter Relationship Specialty Start Date End Date Michele [place] MD [address] [id number] PCP - General 10/11/20 Edgar Szymanski MD [address] [facility] [address] [place] [phone] Radiation Oncologist Radiation Therapy 03/14/20 4 Shun [place] MD [address] [facility] [address] [place] [phone] Surgeon Neurosurgery 02/24/21 documented as of this encounter
--- OUTSIDE RECORDS SUMMARY | 2024-05-03 13:44 | XMS_ITS | Encounter Summary ---
Author Organization Healthcare Address [address] [place] [address] Care Team Providers Care Individualized Education Plan Aide Name Role Phone Michele [place] MD Primary Care Provider + [phone] Edgar Szymanski MD Unavailable [phone] Shun Hurst MD Unavailable [phone] Reason for Visit * Reason Comments Esophageal stenosis * Consultation (Routine) - Closed Specialty Diagnoses / Procedures Referred By Ortega t Referred To Contact Otolaryngology Diagnoses Cancer of larynx (CMS/HCC) Mary Correia MD Referral ID Status Reason Start Date Expiration Date V isits Requested Visits Authorized [id number] Closed Specialty Services Required 03/03/2021 09/02/2022 1 1 Encounter Details Date Type Department Care Team (Late st Contact Info) Description 04/02/2021 9:10 AM EDT [facility] [address], [address] [place] [address] Gil Hernandez MD [address] [place] [address] Pharyngoesophageal dysphagia (Primary Dx); Cancer of larynx (CMS/HCC) Social [...] Sign Reading Time Taken Comments Blood Pressure 130/72 04/02/2021 9:04 AM EDT Pulse 52 04/02/2021 9:04 AM EDT Temperature - - Respiratory Rate - - Oxygen Saturation - - Inhaled Oxygen Concentration - - Weight 98.9 kg (218 lb) 04/02/2021 9:04 AM EDT Height 177.8 cm (5' 10 ) 04/02/2021 9:04 AM EDT Body Mass Index 31.28 04/02/2021 9:04 AM EDT documented in this encounter Miscellaneous Notes * Progress Notes - Gil Hernandez MD - 04/02/2021 9:10 [...] [facility] Res[facility] [address] [facility], [address] [place] [address] 07/17/2024 1:30 PM EST Appointment [facility] Radiology [address] [place] [phone] 07/20/2024 2:50 PM EST Office Visit [facility] Respiratory [address] [facility], [address] [place] [address] Divine [place] MD [address] [facility] [address] [place] [phone] documented as of this encounter Visit Diagnoses Diagnosis Pharyngoesophageal dysphagia- Primary Dysphagia, pharyngoesophageal phase 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, unspecified site documented in this encounter Additional Health Concerns Assessment Noted Time A fall risk assessment has been complete d for the patient 03/31/2021 10:03 AM EDT documented as of this encounter Care Teams Individualized Education Plan Aide Relationship Specialty Start Date End Date Michele [place] MD [address] [place] [address] PCP - General 10/11/20 Edgar Szymanski MD 800 [facility] [address] [place] [phone] Radiation Oncologist Radiation Therapy 03/14/20 4 Shun [place] MD [address] [facility] [address] [place] [address] Surgeon Neurosurgery 02/24/21 documented as of this encounter
--- OUTSIDE RECORDS SUMMARY | 2024-05-03 13:44 | XMS_ITS | Encounter Summary ---
Author Organization Healthcare Address [address] [place], [place] [phone] Care Team Providers Care Cigar Binder Name Role Phone Micheel [place] MD Primary Care Provider + [phone] Edgar Szymanski MD Unavailable [phone] Shun [place] MD Unavailable [phone] Encounter Details Date Type Department Care Team (Late st Contact Info) Description 03/03/2021 3:00 PM EDT Office Visit [facility] Voice [address], [address] [place] [address] Luana Leal S, [facility]FORMING PRESS OPERATOR [address] [facility] [id number] [id number] Aphonia (Primary Dx) Social History Tobacco Use Types Packs/Day Years Used Date Smoking Tobacco: Former Cigarettes Q uit: 2000 Smokeless Tobacco: Never Alcohol Use Standard Drinks/Week Comments Not Currently 0 (1 standard drink = 0.6 oz pure alcohol) Alcoholic Drinks/day: Quit consuming alcohol in remote past PHQ-2 Answer Date Recorded Patient Health Questionnaire-2 Score 2 03/03/2021 Sex and Gender Information Value Date Recorded [...] have Coronavirus / COVID-19? No / Unsure 03/03/2021 2:08 PM EDT documented as of this encounter Miscellaneous Notes * Progress Notes - Luana Leal, [employer]ERH[employer]-FORMING PRESS OPERATOR - 03/03/2021 3:00 PM EDT [facility] Tracheoesophageal Puncture Assessment/Treatment Service Date: 03/03/2021 Referring Provider: Dr.Alexandra Correia Total assessment/treatment time: 30 minutes Treatment Diagnosis: R.49. 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 His prosthesis was last changed on 10/16/2020. Barriers to Progress: Persistent disease, persistent dysphagia Associated Supply Charge: Provox [employer], 10 mm, 17 Fr Medical History: Past Medical History: Diagnosis Date ??? Essential (primary) hypertension HTN (hypertension) ??? [...] ??? Personal history of other specified conditions History of palpitations ??? Pure hypercholesterolemia, unspecified Elevated cholesterol ??? Type 2 diabetes mellitus without complications ([facility]) DM (diabetes mellitus) ??? Unspecified disorder of ear, unspecified ear Ear problems ??? Unspecified disorder of nose and nasal sinuses Sinus disorder ??? Unspecified osteoarthritis, unspecified site Arthritis Placement History: Date of last change: 10/16/2020 Previous Prosthesis Type/Size: 17 Fr, 10 mm, Provox [employer]ett Average Time Between Changes: 2-3 months Use of topical anesthetic: 5ml. 2 viscous lidocaine was provided orally and an additional amount was topically applied to the area surrounding the puncture for patient comfort and to reduce the coughresponse. Additional Information: The stoma was functionally patent, clean and free from discrete lesions. However, granulation tissue was noted covering the right lateral border of the TEP. I was able to freethe tracheal flange and visualize it in its entirety. Patient complaint: Patient reports effortful phonation and increased amount of time since his last change. He denies TEP leakage. Assessment: Pain: Patient has persisting shoulder and chest pain Swallowing: Patient reports increased difficulty with swallowing Procedure: Prosthesis Type/Size: 10 mm, 17 Fr Lot number: [id number] Dilation: Check boxes- 18 Fr [facility] dilator Insertion Method: Check boxes- Gel capsule Evaluation: The TEP rotates freely within the tract. No central leakage observed. No peripheral leakage observed. Neophonation is characteristically fluent and functional. Plan: 1. Discard the old cleaning brush [...] Respiratory 800 [facility], [address]nd [place] [address] 07/17/2024 1:30 PM EST Appointment [facility] Radiology [address] [place] [phone] 07/20/2024 2:50 PM EST Office Visit [facility] Neck [facility] Respiratory [address] [place] [phone] Divine [place] MD 800 [facility] [address] [place] [address] documented as of this encounter Visit Diagnoses Diagnosis Aphonia- Primary documented in this encounter Additional Health Concerns Assessment Noted Time A fall risk assessment has been complete d for the patient 03/03/2021 2:17 PM EDT documented as of this encounter Care Teams Cigar Binder Relationship Specialty Start Date End Date Michele [place] MD [address] [phone] PCP - General 10/11/20 Edgar Szymanski MD 800 [facility] [address] [place] [phone] Radiation Oncologist Radiation Therapy 03/14/20 4 Shun [place] MD [address] [facility] [address] [place] [phone] Surgeon Neurosurgery 02/24/21 documented as of this encounter
--- OUTSIDE RECORDS SUMMARY | 2024-05-03 13:44 | XMS_ITS | Encounter Summary ---
Author Organization Healthcare Address [address] [place] [address] Care Team Providers Care Automobile Appraiser Name Role Phone Michele [place] MD Primary Care Provider + [phone] Edgar Szymanski MD Unavailable [phone] Shun [place] MD Unavailable [phone] Encounter Details Date Type Department Care Team (Latest Contact Info) Description 03/14/2021 Travel Social History Tobacco Use Types Packs/Day [...] CC Head, Neck & Respiratory [address] [facility], [address] [place] [address] 07/17/2024 1:30 PM EST Appointment [facility] Radiology [address] [place] [address] 07/20/2024 2:50 PM EST Office Visit [facility] Neck [facility] Respiratory [address] [place] [address] Divine Carpenter MD [address] [place] [address] documented as of this encounter Visit Diagnoses Not on filedocumented in this encounter Additional Health Concerns Assessment Noted Time A fall risk assessment has been complete d for the patient 03/14/2021 3:52 PM EDT documented as of this encounter Care Teams Automobile Appraiser Relationship Specialty Start Date End Date Michele [place] MD [address] [place] [address] PCP - General 10/11/20 Edgar Szymanski MD [address] [facility] [address] [place] [address] Radiation Oncologist Radiation Therapy 03/14/20 4 Shun [place] MD [address] [facility] [address] [place] [address] Surgeon Neurosurgery 02/24/21 documented as of this encounter
--- OUTSIDE RECORDS SUMMARY | 2024-05-03 13:44 | XMS_ITS | Encounter Summary ---
Author Organization Healthcare Address [address] [place] [address] Care Team Providers Care Waste Disposal Plant Operator Name Role Phone Michele Wrihgt MD Primary Care Provider [phone] Edgar Szymanski MD Unavailable [phone] Shun Hurst MD Unavailable [phone] Encounter Details Date Type Department Care Team (Late st Contact Info) Description 03/06/2021 10:20 AM EDT Anesthesia Event [facility] Inter[facility] Radiology [address] [place] [address] Rickie Pina CRNA [address] [place] [address] Saqib Farrell MD [address] [place] [address] Anesthesia Record Procedure Summary Procedure Name Responsible Anesthesiologist Anesthesia Start Time Anesthesia Stop Time IR PORT PLACEMENT 5+ YEARS Rickie Pina CRNA 03/06/21 1020 03/06/21 1140 Events Date Time Event Comment 03/06/2021 0934 1015 An Start Data 1017 An Induction The patient was reevaluated immediately before moderate or deep sedation use and before anesthesia induction. 1020 An Start 1020 An Intubation 1021 Anesthesia Ready 1029 Attending Handoff 1129 An Extubation 1131 an stop data 1140 Handoff to Receiving I compl eted my handoff to the receiving clinician during which we: 1. Identified the patient 2. Identified the responsible provider 3. Reviewed the pertinent medical history 4. Discussed the surgical course 5. Reviewed intra-op anesthesia management and issues during anesthesia 6. Set expectations for post-procedure period 7. Allowed opportunity for questions and acknowledgement of understanding. 1140 An Stop Meds Name Total propofol (Diprivan) injection 10 mg/mL 1 50 mg succinylcholine (Anectine) injection 20 mg/mL 120 mg rocuronium (ZeMuron) injection 10 mg/mL 3 mg fentaNYL (Sublimaze) injection 50 mcg/mL 50 mcg midazolam (Versed) injection 1 mg/mL 2 m g ePHEDrine injection prefilled syringe 5 mg/mL 25 mg dexamethasone (Decadron) injection 4 mg/ mL 4 mg ceFAZolin (Ancef) injection 2 g 2 g lactated Ringer's infusion 900 mL * Agents Name O2 N2O Air Sevoflurane Inspired Sevoflurane N2O Inspired N2O * Blood No blood administrations on file. Lines, Drains, and Airways Type Details Placement Removal Surgical Airway Type: Tracheostomy; Removal Date: 03/06/21; Removal Time: 1129 03/06/21 0706 by 03/06/21 1129 by Rickie Pina CRNA Peripheral IV Placement Date: 03/06/21; Placement Time: 0704; Catheter Size: 20 G; Orientation: Posterior, Right; Location: Forearm; Site Prep: Alcohol; Insertion Attempts: 1; Patient Tolerance: Tolerated well; Removal Date: 03/06/21; Removal Time: 1242 03/06/21 0704 by Adam Zhao RN 03/06/21 1242 by Adam Zhao RN ETT Placement Date: 03/06/21; Placement Time: 1022 (created via procedure documentation); Technique: Blind; Type: Reinforced tube; Cuffed: Yes; Location: Tracheostomy; Insertion Attempts: 1; Placement Verification: Auscultation; Placed by: DIANE; Removal Date: 03/06/21; Removal Time: 1129 03/06/21 1022 by Rickie Pina CRNA 03/06/21 1129 by Rickie Pina CRNA Single Lumen Implantable Port 03/06/21; 1110; No; Yes; Yes; Left; Chest; ARTURO SALVADOR; 04/10/21; 1746 03/06/21 1110 by Kenneth Turcios RN 04/10/21 1746 by Lorena Fisher RN documented in this [...] have Coronavirus / COVID-19? No / Unsure 03/06/2021 6:20 AM EDT documented as of this encounter Miscellaneous Notes * Anesthesia Postprocedure Evaluation - Rickie Pina CRNA - 03/06/2021 11:44 AM EDT Patient: Anibal Barreto Anesthesia Type: general Vitals Value Taken Time BP 154/81 03/06/21 1140 Temp 36.6 ??C (97.9 ??F) 03/06/21 1140 Pulse 62 03/06/21 1143 Resp 13 03/06/21 1143 SpO2 94 % 03/06/21 1143 Vitals shown include unvalidated device data. Anesthesia Post Evaluation Patient location during evaluation: PACU Level of consciousness: baseline Pain management: adequate (pain score 0-3) Airway patency: natural airway Cardiovascular status: acceptable Respiratory status: acceptable Hydration status: acceptable Comments: Pt in paru, pt awake, alert, vss, report to RN at bedside. No complications documented. * Anesthesia Procedure Notes - Rickie Pina CRNA - 03/06/2021 10:38 AM EDT Associated Order(s): Airway Airway Date/Time: 03/06/2021 10:22 AM Urgency: elective Airway not difficult General Information and Staff Patient location during procedure: OR SOIL TECHNICIAN: Rickie Pina CRNA Performed: SOIL TECHNICIAN Indications and Patient Condition Indications for airway management: anesthesia and airway protection Final Airway Details Final airway type: endotracheal airway Successful airway: reinforced tube Cuffed: yes Successful intubation technique: blind Endotracheal tube insertion site: tracheostomy Placement verified by: chest auscultation Measured from: stoma Number of attempts at approach: 1 Number of other approaches attempted: 0 * Anesthesia Preprocedure Evaluation - Saqib Farrell MD - 03/06/2021 9:40 AM EDT Anibal Barreto Procedure Information Date/Time: 03/06/21 0800 Scheduled providers: Kenneth Turcios RN; Adam Zhao RN Procedure: IR PORT PLACEMENT 5+ YEARS Location: [facility] Relevant Problems Anesthesia (+) Aspiration of liquid Cardio (+) DVT (deep venous thrombosis) (CMS/HCC) (+) Hypertension (+) WPW (Swkwc-Ggfisbfgq-Krmef syndrome) 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 Unspecified disorder of ear, unspecified ear Ear problems ??? Unspecified disorder of nose and nasal sinuses Sinus disorder ??? Unspecified osteoarthritis, unspecified site Arthritis Current Outpatient Medications Medication Instructions ??? ALPRAZolam (Xanax) 1 MG tablet 1 tab(s) orally 2 times a day, As Needed ??? amLODIPine-atorvastatin (Caduet) 10-10 MG tablet 1 tablet, Oral, Daily ??? gabapentin (NEURONTIN) 600 mg, Oral, 4 times daily ??? levothyroxine (Synthroid, Levoxyl) 150 MCG tablet TAKE 1 TABLET DAILY. ??? lisinopril 10 mg, Oral, Daily ??? metoprolol tartrate (Lopressor) 50 MG tablet 1 tab(s) orally 2 times a day ??? mometasone (Elocon) 0.1 % cream 1 application, Topical, Daily, Apply to granulation tissue around TEP valve. ??? morphine CR (MS Contin) 60 MG 12 hr tablet Do not crush, chew, or split. ??? omeprazole OTC (PRILOSEC OTC) 40 mg, Oral, Daily, Do not crush, chew, or split. ??? ondansetron (ZOFRAN) 8 mg, Oral, 2 times daily, Starting day after chemo for 3 days. ??? oxyCODONE (ROXICODONE) 30-60 mg, Oral, Every 6 hours PRN, For cancer related pain ??? prochlorperazine (COMPAZINE) 10 mg, Oral, Every 6 hours PRN Surgical History Past Surgical History: Procedure Laterality Date ??? ESOPHAGOGASTRODUODENOSCOPY N/A Esophagogastroduodenoscopy from [facility] ??? GASTROSTOMY TUBE PLACEMENT N/A Percutaneous endoscopic gastrostomy tube insertion from [facility] ??? LARYNGOSCOPY N/A Laryngoscopy from [facility] ??? OTHER SURGICAL HISTORY N/A Neck dissection modified radical from [facility] ??? OTHER SURGICAL HISTORY N/A Percutaneous endoscopic gastrostomy tube removal from [facility] ??? OTHER SURGICAL HISTORY N/A Laryngectomy from [facility] ??? OTHER SURGICAL HISTORY N/A Trachectomy from [facility] Family History Family History Problem Relation Name Age of Onset ??? Stroke Father ??? Liver cancer Mother FH: liver cancer ??? Breast cancer Sister ??? Uterine cancer Sister ??? Heart attack Sister ??? Kidney failure Father FH: kidney failure ??? Uterine cancer Sister FH: uterine cancer Tobacco Social History Tobacco Use Smoking Status Former Smoker ??? Quit date: 2000 ??? Years since quittin.7 Smokeless Tobacco Never Used Allergies Allergies Allergen Reactions ??? Cetuximab Anaphylaxis SOA, hypotension, after 9 ml of drug ??? Docetaxel Rash, Shortness of breath and Unknown Patient very dyspnic, flushed, severe back pain. Patient very dyspnic, flushed, severe back pain. Patient very dyspnic, flushed, severe back pain. ??? Methadone Rash, Other and Unknown Medications Current Outpatient Medications Medication Sig Dispense Refill ??? ALPRAZolam (Xanax) 1 MG tablet 1 tab(s) orally 2 times a day, As Needed ??? amLODIPine-atorvastatin (Caduet) 10-10 MG tablet Take 1 tablet by mouth 1 (one) time each day. ??? gabapentin (Neurontin) 600 MG tablet Take 1 tablet (600 mg total) by mouth 4 (four) times a day. 120 tablet 1 ??? levothyroxine (Synthroid, Levoxyl) 150 MCG tablet TAKE 1 TABLET DAILY. ??? lisinopril 10 MG tablet Take 1 tablet (10 mg total) by mouth 1 (one) time each day. 30 tablet 0 ??? metoprolol tartrate (Lopressor) 50 MG tablet 1 tab(s) orally 2 times a day ??? mometasone (Elocon) 0.1 % cream Apply 1 application topically 1 (one) time each day for 7 days.Apply to granulation tissue around TEP valve. 15 g 0 ??? morphine CR (MS Contin) 60 MG 12 hr tablet Do not crush, chew, or split. ??? omeprazole OTC (PriLOSEC OTC) 20 MG EC tablet Take 2 tablets (40 mg total) by mouth 1 (one) time each day. Do not crush, chew, or split. 60 tablet 5 ??? ondansetron (Zofran) 8 MG tablet Take 1 tablet (8 mg total) by mouth 2 (two) times a day. Starting day after chemo for 3 days. 30 tablet 5 ??? oxyCODONE (Roxicodone) 30 MG immediate release tablet Take 1-2 tablets (30- 60 mg total) by mouth every 6 (six) hours if needed for severe pain. For cancer related pain 200 tablet 0 ??? prochlorperazine (Compazine) 10 MG tablet Take 1 tablet (10 mg total) by mouth every 6 (six) hours if needed for nausea or vomiting. 30 tablet 5 Current Facility-Administered Medications Medication Dose Route Frequency Provider Last Rate Last Admin ??? ceFAZolin (Ancef) injection 2 g 2 g Intravenous Once Elijah Han MD ??? lidocaine (Xylocaine) 2 % injection - Pyxis Override Pull ??? sodium chloride 0.9 % flush 10 mL 10 mL Intravenous q8h PRN Elijah Han MD ??? sodium chloride 0.9 % infusion 10 mL/hr Intravenous Continuous Elijah Han MD ??? sodium chloride 0.9% with heparin 2 UNIT/ML infusion - Pyxis Override Pull Last Recorded Vitals Blood pressure 144/75, pulse 55, temperature 36.4 ??C (97.6 ??F), resp. rate 15, height 1.778 m (5'10 ), weight 98 kg (216 lb 0.8 oz), SpO2 92 %. Relevant Results Labs in last 18 hours CBC WBC ?? Hb ?? Plt ?? Hct ?? ANC ?? INR 1.0, PTT ??, Anti-Xa ?? BMP Na ?? Cl ?? BUN ?? Glu ?? K ?? Co2 ?? Cr ?? Ca ?? iCa ?? Mg ??, Phos ?? Lactate ?? LFT AST ?? AlkPhos ?? T Prot ?? ALK ?? Bili ?? Alb ?? D.Bili ?? Recent Results (from the past 168 hour(s)) SARS CoV-2/COVID-19 by PCR Collection Time: 03/03/21 1:46 PM Specimen: Oropharynx; Swab Result Value Ref Range SARS CoV-2/COVID-19 RNA PCR Result Not Detected Not Detected Comprehensive metabolic panel Collection Time: 03/03/21 4:13 PM Result Value Ref Range Glucose, Plasma 91 74 - 99 mg/dL BUN, Plasma 10 7 - 21 mg/dL Creatinine, Plasma 0.57 (L) 0.80 - 1.30 mg/dL BUN/Creatinine Ratio 18 Sodium, Plasma 139 136 - 145 mmol/L Potassium, Plasma 4.0 3.7 - 4.8 mmol/L Chloride, Plasma 101 97 - 107 mmol/L CO2, Plasma 29 22 - 29 mmol/L Anion Gap 9 6 - 16 mmol/L Total Calcium, Plasma 9.2 8.9 - 10.2 mg/dL Total Protein 7.0 6.3 - 7.9 g/dL Albumin, Plasma 4.1 3.5 - 5.2 g/dL AST, Plasma 15 12 - 40 U/L ALT, Plasma 16 11 - 41 U/L Alkaline Phosphatase, Plasma 78 40 - 115 U/L Total Bilirubin, Plasma 0.5 0.2 - 1.1 mg/dL eGFR >60 >60 mL/min/1.73m*2 eGFR, if AFR/AM >60 >60 mL/min/1.73m*2 TSH Collection Time: 03/03/21 4:13 PM Result Value Ref Range Thyroid Stimulating Hormone, Plasma 1.75 0.40 - 4.20 uIU/mL Prealbumin Collection Time: 03/03/21 4:13 PM Result Value Ref Range Prealbumin, Plasma 17.9 (L) 20.0 - 41.0 mg/dL Protime-INR Collection Time: 03/06/21 6:44 AM Result Value Ref Range Prothrombin Time 13.4 12.2 - 14.2 sec INR 1.0 0.9 - 1.1 POCT glucose meter Collection Time: 03/06/21 8:23 AM Result Value Ref Range POCT Glucose 97 74 - 99 mg/dL Comment Poultry Vaccinator ID Amy Beth Device ID [id number] Specimen Type POC Capillary Date of Last Liquid: 03/05/21 Date of Last Solid: 03/05/21 Physical Exam Airway Comments: Melissa tube in place in laryngectomy stoma Cardiovascular - normal exam Dental Pulmonary - normal exam Neurological Oriented: normal to time, normal to place and normal to person and oriented to person,place and time Skin Musculoskeletal Extremities Anesthesia Plan ASA 3 Anesthesia technique(s) discussed with the patient/family: General and MAC Anesthesia plan agreed upon was: general Airway management planned: general endotracheal Anesthetic plan and risks discussed with patient. Plan discussed with DIANE. Additional Equipment Requests documented in this encounter Plan of Treatment Upcoming Encounters Date Type Department Care Team (Late st Contact Info) Description 07/17/2024 12:30 PM EST Clinical Support [facility] [address] [facility] [place] [address] 07/17/2024 1:30 PM EST Appointment [facility] Radiology [address] [place] [address] 07/20/2024 2:50 PM EST Office Visit [facility] [address] [facility] [place] [address] Divine Carpenter MD [address] [facility] [address] [place] [address] documented as of this encounter Procedures Procedure Name Priority Date/Time Associated Diagnosis Comments PB ANESTHESIA PLACEHOLDER Routine 03/06/2021 10:22 AM EDT NJ AN ELECTIVE ENDOTRACHEAL AIRWAY Routine 03/06/2021 10:22 AM EDT documented in this encounter Results * NJ AN ELECTIVE ENDOTRACHEAL AIRWAY, PB ANESTHESIA PLACEHOLDER (03/06/2021 10:22 AM EDT) Narrative Rickie Pina CRNA - 03/06/2021 10:22 AM EDT Rickie Pina CRNA ? 03/06/2021 10:40 AM Airway Date/Time: 03/06/2021 10:22 AM Urgency: elective Airway not difficult General Information and Staff Patient location during procedure: OR SOIL TECHNICIAN: Rickie Pina CRNA Performed: DIANE Indications and Patient Condition Indications for airway management: anesthesia and airway protection Final Airway Details Final airway type: endotracheal airway Successful airway: reinforced tube Cuffed: yes Successful intubation technique: blind Endotracheal tube insertion site: tracheostomy Placement verified by: chest auscultation Measured from: stoma Number of attempts at approach: 1 Number of other approaches attempted: 0 Rickie Pina CRNA ANESTHESIA ORDERABLES Final Res ult documented in this encounter Visit Diagnoses Not on filedocumented in this encounter Administered Medications Inactive Administered Medications - up to 3 most recent administrations Medication Order MAR Action Action Date Dose Rate Site ceFAZolin (Ancef) injection 2 g 2 g, Intravenous, Once, 1 dose, On Nenita 03/06/21 at 0730, Routine, Holding - Preprocedure Given 03/06/2021 10:34 AM EDT 2 g dexamethasone (Decadron) injection Intravenous, As needed, Starting on Nenita 03/06/21 at 1101, Until Nenita 03/06/21 at 1143, Routine, Anesthesia Intraprocedure Given 03/06/2021 11:01 AM EDT 4 mg ePHEDrine Sulfate prefilled syringe Intravenous, As needed, Starting on Nenita 03/06/21 at 1029, Until Nenita 03/06/21 at 1143, Routine, Anesthesia Intraprocedure Given 03/06/2021 10:47 AM EDT 5 mg Given 03/06/2021 10:37 AM EDT 5 mg Given 03/06/2021 10:29 AM EDT 15 mg fentaNYL (Sublimaze) injection Intravenous, As needed, Starting on Nenita 03/06/21 at 1015, Until Nenita 03/06/21 at 1143, Routine, Anesthesia Intraprocedure Given 03/06/2021 10:15 AM EDT 50 mcg lactated Ringer's infusion Intravenous, Continuous PRN, Starting on Nenita 03/06/21 at 1013, Until Nenita 03/06/21 at 1143, Routine New Bag 03/06/2021 10:13 AM EDT midazolam (Versed) injection Intravenous, As needed, Starting on Nenita 03/06/21 at 1014, Until Nenita 03/06/21 at 1143, Routine, Anesthesia Intraprocedure Given 03/06/2021 10:14 AM EDT 2 mg propofol (Diprivan) injection Intravenous, As needed, Starting on Nenita 03/06/21 at 1017, Until Nenita 03/06/21 at 1143, Routine, Anesthesia Intraprocedure Given 03/06/2021 10:17 AM EDT 15 0 mg rocuronium (ZeMuron) injection Intravenous, As needed, Starting on Nenita 03/06/21 at 1017, Until Nenita 03/06/21 at 1143, Routine, Anesthesia Intraprocedure Given 03/06/2021 10:17 AM EDT 3 mg succinylcholine (Anectine) injection Intravenous, As needed, Starting on Nenita 10/7/21 at 1019, Until Nenita 03/06/21 at 1143, Routine, Anesthesia Intraprocedure Given 03/06/2021 10:19 AM EDT 12 0 mg documented in this encounter Additional Health Concerns Assessment Noted Time A fall risk assessment has been complete d for the patient 03/03/2021 2:17 PM EDT documented as of this encounter Care Teams Waste Disposal Plant Operator Relationship Specialty Start Date End Date Michele Wright MD [address] [place] [address] PCP - General 10/11/20 Edgar Szymanski MD [address] [place] [address] Radiation Oncologist Radiation Therapy 03/14/20 4 Shun Hurst MD [address] [place] [address] Surgeon Neurosurgery 02/24/21 documented as of this encounter
--- OUTSIDE RECORDS SUMMARY | 2024-05-03 13:44 | XMS_ITS | Encounter Summary ---
Author Organization [facility] Address [address] [place] [address] Care Team Providers Care Financial Planner Name Role Phone Michele Wright MD Primary Care Provider [phone] Edgar Szymanski MD Unavailable [phone] Shun Hurst MD Unavailable [phone] Reason for Referral * Imaging (Routine) - Closed Specialty Diagnoses / Procedures Referred By Ortega harden Referred To Contact Radiology Diagnoses Cancer of larynx (CMS/HCC) Tracheostomy dependent (CMS/HCC) Procedures IR Port Placement 5+ Years Consult to Interventional Radiology Bailey Ellis MD [address] [address] Phone: tel: fax: Referral ID Status Reason Start Date Expiration Date Visits Re quested Visits Authorized [id number] Closed 02/17/2021 08/16/2021 1 1 Reason for Visit * Imaging (Routine) - Closed Specialty Diagnoses / Procedures Referred By Ortega harden Referred To Contact Radiology Diagnoses Cancer of larynx (CMS/HCC) Tracheostomy dependent (CMS/HCC) Procedures IR Port Placement 5+ Years Consult to Interventional Radiology Bailey Ellis MD [address] [address] Phone: tel: fax: Referral ID Status Reason Start Date Expiration Date Visits Re quested Visits Authorized [id number] Closed 02/17/2021 08/16/2021 1 1 Encounter Details Date Type Department Care Team (Late st Contact Info) Description 03/06/2021 6:25 AM EDT - 03/06/2021 11:59 PM EDT Hospital Encounter [facility] Interventional Radiology [address] [place] [address] Adam Zhao, RN [facility] INTER[facility]OLOG[facility] Cancer of larynx (CMS/HCC); Tracheostomy dependent (CMS/HCC) Discharge Disposition: Home or Self Care [...] have Coronavirus / COVID-19? No / Unsure 03/10/2021 9:38 AM EDT documented as of this encounter Last Filed Vital Signs Vital Sign Reading Time Taken Comments Blood Pressure 155/71 03/06/2021 12:20 PM EDT Pulse 66 03/06/2021 12:20 PM EDT Temperature 36.6 ??C (97.9 ??F) 03/06/2021 11:40 AM E DT Respiratory Rate 15 03/06/2021 12:20 PM EDT Oxygen Saturation 94% 03/06/2021 12:20 PM EDT Inhaled Oxygen Concentration - - Weight 98 kg (216 lb 0.8 oz) 03/06/2021 6:50 AM EDT Height 177.8 cm (5' 10 ) 03/06/2021 6:50 AM EDT Body Mass Index 31 03/06/2021 6:50 AM EDT documented in this encounter Discharge Instructions * Attachments The following attachments cannot be sent through Care Everywhere. * Port-A-Cath (UK) (Portuguese) documented in this encounter Medications at Time of Discharge oxyCODONE (Roxicodone) 30 MG immediate release tablet Take 1-2 tablets (30-60 mg total) by mouth every 6 (six) hours if needed for severe pain. For cancer related pain 200 tablet 02/17/2021 mometasone (Elocon) 0.1 % cream Apply 1 application topically 1 (one) time each day for 7 days. Apply to granulation tissue around TEP valve. 15 g 03/03/2021 1 ALPRAZolam (Xanax) 1 MG tablet 1 tab(s) orally 2 times a day, As Needed 09/02/2020 2 amLODIPine-atorv astatin (Caduet) 10-10 MG tablet Take 1 tablet by mouth 1 (one) time each day. 2 gabapentin (Neurontin) 600 MG tablet Take 1 tablet (600 mg total) by mouth 4 (four) times a day. 120 tablet 1 11/25/2020 1 levothyroxine (Synthroid, Levoxyl) 150 MCG tablet TAKE 1 TABLET DAILY. 03/29/2018 2 lisinopril 10 MG tablet Take 1 tablet (10 mg total) by mouth 1 (one) time each day. 30 tablet 01/27/2021 1 metoprolol tartrate (Lopressor) 50 MG tablet 1 tab(s) orally 2 times a day 2 morphine CR (MS Contin) 60 MG 12 hr tablet Do not crush, chew, or split. 2 omeprazole OTC (PriLOSEC OTC) 20 MG EC tablet Take 2 tablets (40 mg total) by mouth 1 (one) time each day. Do not crush, chew, or split. 60 tablet 5 01/27/2021 2 ondansetron (Zofran) 8 MG tabletIndication s:Cancer of larynx (CMS/HCC) Take 1 tablet (8 mg total) by mouth 2 (two) times a day. Starting day after chemo for 3 days. 30 tablet 5 02/17/2021 2 prochlorperazine (Compazine) 10 MG tabletIndication s:Cancer of larynx (CMS/HCC) Take 1 tablet (10 mg total) by mouth every 6 (six) hours if needed for nausea or vomiting. 30 tablet 5 02/17/2021 4 documented as of this encounter Miscellaneous Notes * Post-Procedure Note - Kwabena Tierney MD - 03/06/2021 8:00 AM EDT Vascular and Interventional Radiology Brief Postprocedure Note Attending: Clyde Aguillon Final Assembly Inspector: Kwabena Tierney Pre-operative Diagnosis: Laryngeal cancer Post-operative Diagnosis: Laryngeal cancer Type of Anesthesia: General Description of Findings: Successful placement of left internal jugular single lumen power-port 8 Fr in the left chest wall. The port withdraws and flushes appropriately. Post- procedure imaging demonstrates adequate positioning without evidence of abnormal kinks or disconnects. Technical/Surgical Procedures Used: US guided left IJ access Placement of single lumen port in the left chest wall under fluoroscopy. Complications: No immediate Estimated Blood Loss: 10 mL cc's Procedure Events Event Event Time See detailed result report with images in PACS. The patient tolerated the procedure well without incident or complication and is in stable condition. * Pre-Procedure Note - Kwabena Tierney MD - 03/06/2021 8:00 AM EDT Vascular and Interventional Radiology Preprocedure Note Indication for procedure: Diagnoses of Cancer of larynx (CMS/HCC) and Tracheostomy dependent (CMS/HCC) were pertinent to this visit. Relevant review of systems: NA Relevant Labs: Lab Results Component Value Date CREATININE 0.57 (L) 03/03/2021 EGFR >60 03/03/2021 EGFR >60 03/03/2021 INR 1.2 (H) 03/22/2018 Planned Sedation/Anesthesia: Moderate Airway assessment: normal Directed physical examination: Constitutional: resting comfortably, in no acute distress Respiratory: lungs clear bilaterally Cardiovascular: RRR, no murmurs, rubs or gallops Mallampati: II (hard and soft palate, upper portion of tonsils anduvula visible) ASA Score: ASA 3 - Patient with moderate systemic disease with functional limitations Benefits, risks and alternatives of procedure and planned sedation have been discussed with the patient and/or their representative government relations. All questions answered and they agree to proceed. * Significant Event - Kwabena Tierney MD - 03/06/2021 8:00 AM EDT Interim Summary: Patient became claustrophobic during preparation with severe anxiety and shortness of breath, resulting in him breaking sterile field. The procedure will now be performed under general anesthesia TSA. Kwabena Tierney MD Interventional Radiology * H&P - Kwabena Tierney MD - 03/06/2021 8:00 AM EDT Images from the original note were not included. History Of Present Illness Anibal Barreto is a 55 y.o. male with history of laryngeal cancer s/p resection, chemoradiation and right neck dissection presenting for port placement in the setting of ongoing chemotherapy. He has a tracheostomy with trach collar in place. He is feeling well today without complaint. No fever s/chills or recent infections. 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 Surgical History He has a past surgical history that includes Other surgical history (N/A); Other surgical history (N/A); Other surgical history (N/A); Gastrostomy tube placement (N/A); Esophagogastroduodenoscopy (N/A); Laryngoscopy (N/A); and Other surgical history (N/A). Family History Family History Problem Relation Name Age of Onset Stroke Father Liver cancer Mother FH: liver cancer Breast cancer Sister Uterine cancer Sister Heart attack Sister Kidney failure Father FH: kidney failure Uterine cancer Sister FH: uterine cancer Social History He reports that he quit smoking about 20 years ago. He has never used smokeless tobacco. He reportsprevious alcohol use. He reports previous drug use. Occupational History none Occupational History Not on file Occupational Exposure Concern Occupational Exposure Not Asked Employer: No address on file. Travel History Relevant International Travel History: Travel Screening Question Response In the last month, have you been in contact with someone who was confirmed or suspected to have Coronavirus / COVID-19? No / Unsure Have you had a COVID-19 viral test in the last 14 days? Yes - Negative result Do you have any of the following new or worsening symptoms? None of these Have you traveled internationally or domestically in the last month? No Travel History Travel since 02/04/21 No documented travel since 02/04/21 Relevant Domestic Travel History: None Immunizations reviewed VACCINE/DOSE Flu Tetanus Pneumovax Shingles Allergies Cetuximab, Docetaxel, and Methadone Medications Current Outpatient Medications Medication Sig Dispense Refill ALPRAZolam (Xanax) 1 MG tablet 1 tab(s) orally 2 times a day, As Needed amLODIPine-atorvastatin (Caduet) 10-10 MG tablet Take 1 tablet by mouth 1 (one) time each day. gabapentin (Neurontin) 600 MG tablet Take 1 tablet (600 mg total) by mouth 4 (four) times a day. 120 tablet 1 levothyroxine (Synthroid, Levoxyl) 150 MCG tablet TAKE 1 TABLET DAILY. lisinopril 10 MG tablet Take 1 tablet (10 mg total) by mouth 1 (one) time each day. 30 tablet 0 metoprolol tartrate (Lopressor) 50 MG tablet 1 tab(s) orally 2 times a day mometasone (Elocon) 0.1 % cream Apply 1 application topically 1 (one) time each day for 7 days. Apply to granulation tissue around TEP valve. 15 g 0 morphine CR (MS Contin) 60 MG 12 hr tablet Do not crush, chew, or split. omeprazole OTC (PriLOSEC OTC) 20 MG EC tablet Take 2 tablets (40 mg total) by mouth 1 (one) time each day. Do not crush, chew, or split. 60 tablet 5 ondansetron (Zofran) 8 MG tablet Take 1 tablet (8 mg total) by mouth 2 (two) times a day. Starting day after chemo for 3 days. 30 tablet 5 oxyCODONE (Roxicodone) 30 MG immediate release tablet Take 1-2 tablets (30-60 mg total) by mouth every 6 (six) hours if needed for severe pain. For cancer related pain 200 tablet 0 prochlorperazine (Compazine) 10 MG tablet Take 1 tablet (10 mg total) by mouth every 6 (six) hours if needed for nausea or vomiting. 30 tablet 5 Current Facility-Administered Medications Medication Dose Route Frequency Provider Last Rate Last Admin ceFAZolin (Ancef) injection 2 g 2 g Intravenous Once Elijah Han MD sodium chloride 0.9 % flush 10 mL 10 mL Intravenous q8h PRN Elijah Han MD sodium chloride 0.9 % infusion 10 mL/hr Intravenous Continuous Elijah Han MD Review of Systems All other systems reviewed and are negative. Physical Exam Constitutional: Appearance: Normal appearance. HENT: Head: Normocephalic and atraumatic. Mouth/Throat: Mouth: Mucous membranes are moist. Eyes: Extraocular Movements: Extraocular movements intact. Neck: Comments: Surgical changes from right neck dissection. Tracheostomy. Cardiovascular: Rate and Rhythm: Normal rate and regular rhythm. Pulses: Normal pulses. Heart sounds: Normal heart sounds. Pulmonary: Effort: Pulmonary effort is normal. Breath sounds: Normal breath sounds. Abdominal: General: Abdomen is flat. There is no distension. Musculoskeletal: General: Normal range of motion. Skin: General: Skin is warm and dry. Neurological: General: No focal deficit present. Mental Status: He is alert and oriented to person, place, and time. Psychiatric: Mood and Affect: Mood normal. Behavior: Behavior normal. Last Recorded Vitals Blood pressure 144/75, pulse 55, temperature 36.4 ??C (97.6 ??F), resp. rate 15, height 1.778 m (5'10 ), weight 98 kg (216 lb 0.8 oz), SpO2 92 %. Relevant Results Hgb 13.3, Platelets 107, INR pending Assessment/Plan Active Problems: There are no active Hospital Problems. Anibal Barreto is a 55 y.o. male with history of laryngeal cancer s/p resection, chemoradiation and right neck dissection presenting for port placement in the setting of ongoing chemotherapy. Plan: - will perform procedure under conscious sedation. documented in this encounter Plan of Treatment Upcoming Encounters Date Type Department Care Team (Late st Contact Info) Description 07/17/2024 12:30 PM EST Clinical Support Pav [facility] Head, Neck & Respiratory [address] [facility], [address] [place] [address] 07/17/2024 1:30 PM EST Appointment P[facility] G Radiology [address] [place] [address] 07/20/2024 2:50 PM EST Office Visit Pav [facility] Head[facility] Neck [facility] Respiratory [address] [facility], [address] [place] [address] Bailey Ellis MD [address] [facility] [address] [place] [address] documented as of this encounter Procedures Procedure Name Priority Date/Time Associated Diagnosis Comments IR PORT PLACEMENT 5+ YEARS Routine 03/06/2021 11:26 AM EDT Cancer of larynx (CMS/HCC) Tracheostomy dependent (CMS/HCC) POCT GLUCOSE METER UNSOLICITED RESULTS Routine 03/06/2021 8:23 AM EDT PROTHROMBIN TIME(PT) / INR STAT 03/06/2021 6:44 AM EDT documented in this encounter Results * IR Port Placement 5+ Years (03/06/2021 11:26 AM EDT) Anatomical Region Laterality Modality X-Ray Angiograph y Impressions 03/06/2021 4:11 PM EDT Successful placement of left internal jugular vein chest port; line is ready for use. Tip is at cavoatrial junction. ?? CRITICAL RESULT: No. COMMUNICATION: Per this written report. Dictated by Kwabena Tierney on 03/06/2021 2:16 PM By electronically signing this report, I, the attending physician, attest that I was present for the entire procedure(s) and agree with the final edited report. Signed by Clyde Aguillon on ??03/06/2021 4:11 PM Narrative 03/06/2021 4:11 PM EDT Exam/Procedure: IR PORT PLACEMENT 5+ YEARS ordered by BAILEY ELLIS, [id number] CLINICAL INDICATION: 55-year-old male with history of metastatic laryngeal cancer status post resection, chemoradiation and right neck dissection. Presents today for port placement. Supervising attending: Clyde Aguillon Cartographic Aide: Kwabena Tierney Secondary Slip Filler: None. Rad Dose: 124 mGy Fluoroscopy Time: ??3.5 minutes Medications: General anesthesia provided by a member of the anesthesia team. 1% Lidocaine SQ. Antibiotics: Ancef 2 g Procedure: After discussion of risks and benefits, informed written consent was obtained. Appropriate time out was done to confirm patient identity and planned procedure. The patient was placed supine on the fluoro table. Progressive Assembler And Fitter ultrasonography revealed the vein to be compressible and patent. ??An electronic image thereof has been stored in PACS. Strict hand hygiene protocol was observed with the operators doing a surgical hand scrub. All personnel in the room were attired in surgical hat and mask. The operators were in surgical hat, mask, sterile gloves and gowns. The site was prepped with 2% chlorhexidine for cutaneous antisepsis, followed by sterile barrier draping. Conscious sedation was initiated. ??Local anesthetic was administered. ??The left internal jugular vein was sonographically evaluated and determined to be patent. Real time ultrasound was used to visualize micropuncture needle entry into the vessel and a permanent image access was stored. ?A 0.018 soft tipped wire was then placed into the SVC under fluoroscopic guidance. Over the wire a 4Fr Micropuncture sheath was placed. ??A subcutaneous pocket was then created in the soft tissues of the chest several centimeters caudal to the clavicle. ??Lidocaine was then used to anesthetize a tract from the pocket to the puncture site at the base of the neck. ??A blunt tunneling device was then used to pass the port tubing from the pocket to the access site. The pocket was irrigated with antibiotic laced saline, and the port placed. Through the 4Fr sheath a 0.035 guidewire was advanced into the IVC under fluoroscopic guidance, the tract sequentially dilated, and finally over the wire a peel away sheath was placed, and the wire removed. ??While the patient maintained positive thoracic pressure, the tubing was passed into the SVC and the peel away removed. Tip position was recorded with a single digital spot image. The port was aspirated, flushed with saline, and then packed with heparinized saline at a concentration of 100 units/mL, in an amount appropriate for the port and tubing volume. The subcutaneous tissues overlying the port were closed with interrupted 3-0 Vicryl. Dermabond was then applied to the incisions. The patient tolerated the procedure well with no evidence of complication. ?? Device: Bard Power Port. Lot No. [id number] COMPARISON: CT soft tissue neck with contrast 03/03/2021 ?? FINDINGS: Patent left internal jugular vein COMPLICATION: No. Procedure Note Clyde Aguillon MD - 03/06/2021 Exam/Procedure: IR PORT PLACEMENT 5+ YEARS ordered by BAILEY ELLIS,[id number] CLINICAL INDICATION: 55-year-old male with history of metastatic laryngeal cancer status postresection, chemoradiation and right neck dissection. Presents today forport placement. Supervising attending: Clyde Aguillon Cartographic Aide: Kwabena Tierney Secondary Slip Filler: None. Rad Dose: 124 mGy Fluoroscopy Time: 3.5 minutes Medications: General anesthesia provided by a member of the anesthesiateam. 1% Lidocaine SQ. Antibiotics: Ancef 2 g Procedure: After discussion of risks and benefits, informed written consent wasobtained. Appropriate time out was done to confirm patient identity andplanned procedure. The patient was placed supine on the fluoro table.Progressive Assembler And Fitter ultrasonography revealed the vein to be compressible and patent. Anelectronic image thereof has been stored in PACS. Strict hand hygiene protocol was observed with the operators doing asurgical hand scrub. All personnel in the room were attired in surgicalhat and mask. The operators were in surgical hat, mask, sterile gloves andgowns. The site was prepped with 2% chlorhexidine for cutaneousantisepsis, followed by sterile barrier draping. Conscious sedation was initiated. Local anesthetic was administered. Theleft internal jugular vein was sonographically evaluated and determined bozena patent. Real time ultrasound was used to visualize micropuncture needleentry into the vessel and a permanent image access was stored. A 0.018soft tipped wire was then placed into the SVC under fluoroscopic guidance.Over the wire a 4Fr Micropuncture sheath was placed. A subcutaneouspocket was then created in the soft tissues of the chest severalcentimeters caudal to the clavicle. Lidocaine was then used toanesthetize a tract from the pocket to the puncture site at the base ofthe neck. A blunt tunneling device was then used to pass the port tubingfrom the pocket to the access site. The pocket was irrigated withantibiotic laced saline, and the port placed. Through the 4Fr sheath a0.035 guidewire was advanced into the IVC under fluoroscopic guidance, thetract sequentially dilated, and finally over the wire a peel away sheath was placed, and the wire removed. While the patient maintainedpositive thoracic pressure, the tubing was passed into the SVC and thepeel away removed. Tip position was recorded with a single digital spotimage. The port was aspirated, flushed with saline, and then packed withheparinized saline at a concentration of 100 units/mL, in an amountappropriate for the port and tubing volume. The subcutaneous tissuesoverlying the port were closed with interrupted 3-0 Vicryl. Dermabond wasthen applied to the incisions. The patient tolerated the procedure wellwith no evidence of complication. Device: Bard Power Port. Lot No. [id number] COMPARISON: CT soft tissue neck with contrast 03/03/2021 FINDINGS: Patent left internal jugular vein COMPLICATION: No. IMPRESSION: Successful placement of left internal jugular vein chest port; line isready for use. Tip is at cavoatrial junction. CRITICAL RESULT: No. COMMUNICATION: Per this written report. Dictated by Kwabena Tierney on 03/06/2021 2:16 PM By electronically signing this report, I, the attending physician, attestthat I was present for the entire procedure(s) and agree with the finaledited report. Signed by Clyde Aguillon on 03/06/2021 4:11 PM us Bailey Ellis MD IMG IR PROCEDURES Final Resu lt * POCT glucose meter (03/06/2021 8:23 AM EDT) Pathologist [facility] POCT Glucose 97 74 - 99 mg/dL 03/06/2021 8:25 AM EDT [facility] Comment:Accuracy of a glucos e result obtained from a capillary whole blood specimen relies upon adequate, non-compromised capillary blood flow. If the capillary glucose result is not consistent with the patient's clinical signs and symptoms, glucose testing should be repeated with either an arterial or venous sample on the glucometer or sent to the main labortory for testing. Comment 03/06/2021 8:25 AM EDT [facility] Slip Filler ID Amy Beth 8:25 AM EDT [facility] Device ID [id number] 03/06/2021 8:25 AM EDT [facility] Specimen Type POC Capillary 03/06/2021 8:25 AM EDT [facility] Blood Capillary blood specimen / Unknown 03/06/2021 8:23 AM EDT 03/06/2021 8:25 AM EDT us Adam Zhao FIELD APPLICATION ENGINEER POINT OF CARE T EST DOCKED DEVICE UNSOLICITED RESULTS Final Result Performing Organization Address City/State/[facility] Co de Phone Number [facility] [address] [place] [address] * Protime-INR (03/06/2021 6:44 AM EDT) Pathologist [facility] Prothrombin Time 13.4 12.2 - 14.2 sec LAB COAGULATION METHOD 03/06/2021 7:47 AM EDT [facility] INR 1.0 0.9 - 1.1 LAB COAGULATION METHOD 03/06/2021 7:47 AM EDT [facility] Blood Venous blood specimen / Unknown Venipuncture / Unknown 03/06/2021 6:44 AM EDT 03/06/2021 6:48 AM EDT Narrative [facility] - 03/06/2021 7:47 AM EDT OPTIMAL INR RANGES FOR PATIENT ON ORAL ANTICOAGULANT THERAPY Prevention of venous thromboembolism ?INR 2.0 to 3.0 In patients with heart disease: Atrial fibrillation ?INR 2.0 to 3.0 Valvular heart disease ? INR 2.0 to 3.0 Tissue heart valves ?INR 2.0 to 3.0 Mechanical prosthetic valves ? INR 2.5 to 3.5 Prevention of recurrent RI ? INR 2.5 to 3.5 us Elijah Han MD LAB BLOOD ORDERABLES Final R esult [facility] [address] [place] [address] documented in this encounter Visit Diagnoses Diagnosis 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, unspecified site Tracheostomy dependent (CMS/HCC) Tracheostomy status documented in this encounter Administered Medications Inactive Administered Medications - up to 3 most recent administrations Medication Order MAR Action Action Date Dose Rate Site lidocaine PF (Xylocaine) 2 % injection Infiltration, Code/trauma/sedation medication, Starting on Nenita 03/06/21 at 1043, Until Nenita 03/06/21 at 1043, Routine Given 03/06/2021 10:43 AM EDT 10 mL Left Chest documented in this encounter Additional Health Concerns Assessment Noted Time A fall risk assessment has been complete d for the patient 03/03/2021 2:17 PM EDT documented as of this encounter Care Teams Financial Planner Relationship Specialty Start Date End Date Michele Wright MD [address] [place] [address] PCP - General 10/11/20 Edgar Szymanski MD [address] [facility] [address] [place] [address] Radiation Oncologist Radiation Therapy 03/14/20 4 Shun Hurst MD [address] [place] [id number] Surgeon Neurosurgery 02/24/21 documented as of this encounter
--- OUTSIDE RECORDS SUMMARY | 2024-05-03 13:44 | XMS_ITS | Encounter Summary ---
Author Organization [facility] Address [address] [place], [place] [id number] Care Team Providers Care Investigation Division Sergeant Name Role Phone Michele Wright MD Primary Care Provider + [phone] Edgar Szymanski MD Unavailable [phone] Shun Hurst MD Unavailable [phone] Divine Carpenter MD Unavailable [phone] Reason for Visit * Reason Onset Date Comments HCN - Patient Message 03/13/2021 Chemo bag Encounter Details Date Type Department Care Team (Late st Contact Info) Description 03/13/2021 Telephone PFE SCHEDULING [address] [place] [address] Divine Carpenter MD [address] [phone] HCN - Patient Message (Chemo bag) Social History Tobacco Use Types Packs/Day Years [...] Telephone Encounter - Ambika Ambriz RN - 03/13/2021 10:40 AM EDT Patient has appt tomorrow for unhook. advised. * Telephone Encounter - Vale Ryder - 03/13/2021 10:31 AM EDT Patient Phone Message Reason for Call: Please call, Amy, patient's , to discuss patient's Chemo bag will run out at 2 pm tomorrow? Best contact number and optimal time of day to reach caller: [phone] Note: Please do not reply to this [...] Neck & Respiratory [address] [facility], [address] [place] [address] 07/17/2024 1:30 PM EST Appointment [facility] G Radiology [address] [place] [phone] 07/20/2024 2:50 PM EST Office Visit Pav [facility] Head, Neck & Respiratory [address] [facility] [place] [address] Divine Carpenter MD 800 [facility] Diane Zuniga [facility] [address] [place] [phone] documented as of this encounter Visit Diagnoses Not on filedocumented in this encounter Additional Health Concerns Infection Onset Date Last Indicated Resolved Time COVID-19 Rule-Out 06/12/2021 06/12/2021 06/12/2021 12:25 PM EST COVID 19 (Confirmed) Comment:IPAC has verified patient has a COVID-19 positive result. A chart review has been completed, EPI PUI has been completed and sent to appropriate Health Dept. IPAC Mud Boss: Doyle 06/12/2021 06/12/2021 07/03/2021 5: 23 AM EST Assessment Noted Time A fall risk assessment has been complete d for the patient 03/10/2021 11:02 AM EDT documented as of this encounter Care Teams Investigation Division Sergeant Relationship Specialty Start Date End Date Michele Wright MD [address] [place] [address] PCP - General 10/11/20 Edgar Szymanski MD [address] [place] [address] Radiation Oncologist Radiation Therapy 03/14/20 4 Shun Hurst MD [address] [place] [address] Surgeon Neurosurgery 02/24/21 Divine Carpenter MD [address] [place] [address] Medical Oncologist Medical Oncology 06/13/21 documented as of this encounter
--- OUTSIDE RECORDS SUMMARY | 2024-05-03 13:44 | XMS_ITS | Encounter Summary ---
Author Organization Healthcare Address [facility] [place] [id number] Care Team Providers Care Lining Caser Name Role Phone Michele Wright MD Primary Care Provider [phone] Edgar Szymanski MD Unavailable [phone] Shun Hurst MD Unavailable [phone] Reason for Visit * Reason Comments Med Refill Encounter Details Date Type Department Care Team ([facility] Contact Info) Description 04/01/2021 Refill Pav CC Head, Neck & Respiratory [address] [place] [address] Divine Carpenter MD 800 [facility] [address] [place] [address] Social History Tobacco Use Types Packs/Day Years [...] & Respiratory [address] [place] [phone] 07/17/2024 1:30 PM EST Appointment [facility] G Radiology [address] [place] [phone] 07/20/2024 2:50 PM EST Office Visit Pav CC Head, Neck & Respiratory [address] [facility], [address]nd [place] [phone] Divine Carpenter MD [address] [facility] [address] [place] [phone] documented as of this encounter Visit Diagnoses Not on filedocumented in this encounter Additional Health Concerns Assessment Noted Time A fall risk assessment has been complete d for the patient 03/31/2021 10:03 AM EDT documented as of this encounter Care Teams Lining Caser Relationship Specialty Start Date End Date Michele Wright MD [address] [place] [address] PCP - General 10/11/20 Edgar Szymanski MD [address] [facility] [address] [place] [phone] Radiation Oncologist Radiation Therapy 03/14/20 4 Shun Hurst MD [address] [facility] [address] [place] [address] Surgeon Neurosurgery 02/24/21 documented as of this encounter
--- OUTSIDE RECORDS SUMMARY | 2024-05-03 13:44 | XMS_ITS | Encounter Summary ---
Author Organization [facility] Address [address] [place], [place] [id number] Care Team Providers Care Arch Support Technician Name Role Phone Michele Wright MD Primary Care Provider [phone] Edgar Szymanski MD Unavailable [phone] Shun Hurst MD Unavailable [phone] Reason for Visit * Reason Comments Follow-up * Episode Based Medications (Routine) - Closed Specialty Diagnoses / Procedures Referred By Ortega t Referred To Contact Diagnoses Cancer of larynx (CMS/HCC) Divine Carpenter MD [address] [facility] Diane Zuniga [address] [address] Phone: tel: fax: [facility] Infusion Clinic [address] [place] [address] Phone: tel: Referral ID Status Reason Start Date Expiration Date Visits Re quested Visits Authorized [id number] Closed 02/17/2021 10/25/2021 1 78 Encounter Details Date Type Department Care Team (Late st Contact Info) Description 03/31/2021 9:30 AM EDT Office Visit [facility] Multidisciplinary Oncology Clinic [address] [place] [address] Bailey Morrison, CROP NUTRITION SCIENTIST [address] [facility] Diane Zuniga [facility] [address] [place] [address] Cancer of larynx (CMS/HCC) Social History Tobacco [...] have Coronavirus / COVID-19? No / Unsure 03/31/2021 8:52 AM EDT documented as of this encounter Last Filed Vital Signs Vital Sign Reading Time Taken Comments Blood Pressure 146/76 03/31/2021 9:03 AM EDT Pulse 60 03/31/2021 9:03 AM EDT Temperature 36.8 ??C (98.3 ??F) 03/31/2021 9:03 AM ED T Respiratory Rate 20 03/31/2021 9:03 AM EDT Oxygen Saturation 95% 03/31/2021 9:03 AM EDT Inhaled Oxygen Concentration - - Weight 99.6 kg (219 lb 9.3 oz) 03/31/2021 9:03 A M EDT Height 177.8 cm (5' 10 ) 03/31/2021 9:03 AM EDT Body Mass Index 31.51 03/31/2021 9:03 AM EDT documented in this encounter Miscellaneous Notes * Progress Notes - Bailey Morrison, CROP NUTRITION SCIENTIST - 03/31/2021 9:30 AM EDT Medical Oncology Clinic Note Patient Name: Anibal Barreto Date of : 1965 55 y.o. Referring Physician:Divine Carpenter MD [address] [place] [id number] Encounter Date: 03/31/2021 Interval History: The patient presents today for follow up and continuation of treatment with C2 5FU/Carbo Q 21 days.Rates pain 2/10 and no need for refills right now. Manages trach well. Has nausea in the AM but well controlled with antiemetics prn. Weight is stable and appetite is good. Still experiencing difficulty swallowing but has follow up with Dr. Hernandez scheduled for 04/02. No other significant clinical findings. 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 Cancer of larynx ([facility]) 02/19/2017 Cancer Staged Staging form: Larynx - Glottis, AJCC 8th Edition, Clinical stage from 02/19/2017: Stage ZULAY (cT3, cN2c, cM0) - Signed by Divine Carpenter MD on 10/14/2020 03/18/2017 Initial Diagnosis Cancer of larynx ([facility]) 03/22/2018 Cancer Staged Staging [...] 10/14/2020 03/14/2020 - 11/24/2020 Research Study Participant [id number]: Pembrolizumab Every 42 Days Every 84 Days Plan Provider: Divine Carpenter MD Treatment goal: Palliative Line of treatment: Second Line Associated studies: Priming Immunotherapy in Advanced Disease with Radiation 11/26/2020 - Radiation Therapy The patient saw No care steam table associate to display for radiation treatment. This is the current list ofradiation treatment: Radiation Treatments No radiation treatments to show. (Treatments may have been administered in another system.) 12/09/2020 - Radiation Therapy The patient saw No care steam table associate to display for radiation treatment. This is [...] mL chemo IVPB, 750 mg, Intravenous, Once, 1 of 6 cycles Administration: 750 mg (03/10/2021) fluorouracil (Adrucil) 8,750 mg in sodium chloride 0.9 % 230 mL chemo infusion - for home use, 4,000 mg/m2 = 8,750 mg, Intravenous, Over 96 hours, 1 of 6 cycles Administration: 8,750 mg (03/10/2021) aprepitant (Cinvanti) 130 MG/18ML IV 130 mg, 130 mg, Intravenous, Once, 1 of 6 cycles Administration: 130 mg (03/10/2021) Secondary malignant neoplasm of chest wall (CMS/HCC) 11/26/2020 - Radiation Therapy The patient saw No care steam table associate to display for radiation treatment. This is the current list ofradiation treatment: Radiation Treatments No radiation treatments to show. (Treatments may have been administered in another system.) 11/26/2020 Initial Diagnosis Secondary malignant neoplasm of chest wall (CMS/HCC) 12/09/2020 - Radiation Therapy The patient saw No care steam table associate to display for radiation treatment. This is the current list ofradiation treatment: Radiation Treatments No radiation treatments to show. (Treatments may have been administered in another system.) Past Medical, Surgical, Family and Social History: Reviewed, and unchanged from most recent clinic visit or updated as indicated. Allergies and Adverse Drug Reactions: Cetuximab, Docetaxel, and Methadone Medications: Reviewed Review of Systems: 14 pt review of systems performed and negative except as noted in HPI. Physical Exam: Temp: [36.8 ??C (98.3 ??F)] 36.8 ??C (98.3 ??F) Heart Rate: [60] 60 Resp: [20] 20 BP: (146)/(76) 146/76 SpO2: [95 %] 95 % ECO General: Sitting/resting comfortably in chair, NAD HEENT: NCAT, PERRLA/EOMI, anicteric; no oral lesions Neck: Trach intact with valve. Heart: RRR, no MGR Lungs: CTAB; no rales, rhonchi or wheezes Abdomen: Soft, NTND, + BS Extremities: No edema, distal pulses intact Musculoskeletal: No focal tenderness or deformity Skin: No visible rashes or lesions Neuro: Grossly nonfocal; no localizing deficits of strength, sensation, or mentation Psychiatric: Normal mood and thought content LABS: Office Visit on 03/31/2021 Component Date Value ??? Magnesium, Plasma 03/31/2021 1.9 ??? Glucose, Plasma 03/31/2021 115* ??? BUN, Plasma 03/31/2021 9 ??? Creatinine, Plasma 03/31/2021 0.79* ??? BUN/Creatinine Ratio 03/31/2021 11 ??? Sodium, Plasma 03/31/2021 141 ??? Potassium, Plasma 03/31/2021 3.9 ??? Chloride, Plasma 03/31/2021 102 ??? CO2, Plasma 03/31/2021 29 ??? Anion Gap 03/31/2021 10 ??? Total Calcium, Plasma 03/31/2021 9.2 ??? Total Protein 03/31/2021 6.8 ??? Albumin, Plasma 03/31/2021 4.0 ??? AST, Plasma 03/31/2021 15 ??? ALT, Plasma 03/31/2021 13 ??? Alkaline Phosphatase, Pl* 03/31/2021 93 ??? Total Bilirubin, Plasma 03/31/2021 0.4 ? ? eGFR 03/31/2021 >60 ? ? eGFR, if AFR/AM 03/31/2021 >60 ??? WBC Count 03/31/2021 2.12* ??? RBC Count 03/31/2021 4.05* ??? HGB 03/31/2021 12.0* ??? HCT 03/31/2021 35.9* ??? Platelet Count 03/31/2021 106* ??? MCV 03/31/2021 89 ??? MCH 03/31/2021 29.6 ??? MCHC 03/31/2021 33.4 ??? RDW 03/31/2021 14.6* ??? MPV 03/31/2021 10.1 ??? nRBC 03/31/2021 0.0 ??? Differential Type 03/31/2021 Manual ??? Blasts % 03/31/2021 0 ??? Promyelocytes % 03/31/2021 0 ??? Myelocytes % 03/31/2021 0 ??? Metamyelocytes % 03/31/2021 1 ??? Neutrophils % 03/31/2021 61 ??? Lymphocytes % 03/31/2021 24 ??? Reactive Lymphocytes % 03/31/2021 1 ??? Monocytes % 03/31/2021 13 ??? Eosinophils % 03/31/2021 0 ??? Basophils % 03/31/2021 0 ??? Blasts Absolute 03/31/2021 0.00 ??? Promyelocytes Absolute 03/31/2021 0.00 ??? Myelocytes Absolute 03/31/2021 0.00 ??? Metamyelocytes Absolute 03/31/2021 0.02 ??? Neutrophils Absolute 03/31/2021 1.29* ??? Lymphocytes Absolute 03/31/2021 0.51* ??? Reactive Lymphocytes Abs* 03/31/2021 0.02 ??? Monocytes Absolute 03/31/2021 0.28* ??? Eosinophils Absolute 03/31/2021 0.00 ??? Basophils Absolute 03/31/2021 0.00 ??? Elliptocytes/Ovalocytes 03/31/2021 Present ??? RBC Morphology 03/31/2021 Slide Reviewed ??? Platelet Estimate 03/31/2021 Platelet smear estimate consistent with automated count RADIOLOGY: No image results found. ASSESSMENT AND PLAN: 1.??Cancer management :??Cancer Staging?Cancer of larynx (CMS/HCC), Staging form: Larynx - Glottis, AJCC 8th Edition, Pathologic: Stage IVC?(recurrent) -This represents a life threatening illness for which continued cancer treatment is indicated. 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 - Most recent imaging NO EVIDENCE OF PROGRESSIVE DISEASE - I reviewed liver and renal function as well as bone marrow??function - The selection, dosing and administration of [...] of associated toxicities in patients with cancer PLAN: - Proceed with C2 5FU + Carboplatin today - Labs and PS reviewed and appropriate to proceed with today's treatment. - RTC in 3 weeks for follow up with Dr. Carpenter and C3 ?? 2. 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 - I have evaluated the prescription pain medications currently in use; no refills needed. - The patient continues to experience pain directly related to their neoplasm requiring monitoring and adjustments in dosage and frequency of narcotic and adjunctive medications by me. KEVAN report reviewed and will be reviewed periodically ?? 3. 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 -??Weight stable, but increasing dysphagia - Will see Dr. Hernandez on 04/02 with potential need for esophageal dilation. ?? 4. Monitoring for the emergence of hypothyroidism?? - ??Continue levothyroxine ??at current dose Lab Results Component Value Date ?? TSH 1.75 03/03/2021 - This will be periodically monitored as we continue therapy, due to the potential for worsening ofthyroid function from radiation and systemic cancer therapy. ?? 5. Regimen Related Toxicity:?? -??Chemotherapy Induced Nausea:??He can continue ondansetron, compazine and will monitor for nauseaand vomiting.?? -??Reasonably controlled.?? 30 minutes was spent on this encounter; including [...] of associated toxicities in patients with cancer. Bailey Morrison APRN Division of Medical Oncology documented in this encounter Plan of Treatment Upcoming Encounters Date Type Department Care Team (Late st Contact Info) Description 07/17/2024 12:30 PM EST Clinical Support Pav [facility] [address] [facility] [place] [address] 07/17/2024 1:30 PM EST Appointment [facility] Radiology [address] [place] [address] 07/20/2024 2:50 PM EST Office Visit [facility] [address] [facility] [place] [address] Divine Carpenter MD [address] [facility] [address] [place] [place] [address] documented as of this encounter Procedures Procedure Name Priority Date/Time Associated Diagnosis Comments MORPHOLOGY Routine 03/31/2021 9:01 AM EDT Cancer of larynx (CMS/HCC) MANUAL DIFFERENTIAL Routine 03/31/2021 9 :01 AM EDT Cancer of larynx (CMS/HCC) CBC WITH AUTO DIFFERENTIAL Routine 03/31/2021 9:01 AM EDT Cancer of larynx (CMS/HCC) MAGNESIUM, PLASMA STAT 03/31/2021 9:0 1 AM EDT Cancer of larynx (CMS/HCC) COMPREHENSIVE METABOLIC PANEL, PLASMA Routine 03/31/2021 9:01 AM EDT Cancer of larynx (CMS/HCC) documented in this encounter Results * Morphology (03/31/2021 9:01 AM EDT) Elliptocytes/ Ovalocytes Present LAB HEMATOLOGY METHOD 03/31/2021 9:40 AM EDT [facility] RBC Morphology Slide Reviewed LAB HEMATOLOGY METHOD 03/31/2021 9:40 AM EDT [facility] Platelet Estimate Platelet smear estimate consistent with automated count LAB HEMATOLOGY METHOD 03/31/2021 9:40 AM EDT [facility] Blood Venous blood specimen / Unknown Venipuncture / Unknown 03/31/2021 9:01 AM EDT 03/31/2021 9:06 AM EDT Divine Carpenter MD LAB BLOOD ORDERABLES Final R esult Performing Organization Address City/State/[facility] Co de Phone Number [facility] [address] [place] [address] * (ABNORMAL) Manual Differential (03/31/2021 9:01 AM EDT) Blasts % 0 % LAB HEMATOLOGY METHOD 03/31/2021 9:40 AM EDT [facility] Promyelocytes % 0 % LAB HEMATOLOGY METHOD 03/31/2021 9:40 AM EDT [facility] Myelocytes % 0 % LAB HEMATOLOGY METHOD 03/31/2021 9:40 AM EDT [facility] Metamyelocytes % 1 % LAB HEMATOLOGY METHOD 03/31/2021 9:40 AM EDT [facility] Neutrophils % 61 % LAB HEMATOLOGY METHOD 03/31/2021 9:40 AM EDT [facility] Lymphocytes % 24 % LAB HEMATOLOGY METHOD 03/31/2021 9:40 AM EDT [facility] Reactive Lymphocytes % 1 % LAB HEMATOLOGY METHOD 03/31/2021 9:40 AM EDT [facility] Monocytes % 13 % LAB HEMATOLOGY METHOD 03/31/2021 9:40 AM EDT [facility] Eosinophils % 0 % LAB HEMATOLOGY METHOD 03/31/2021 9:40 AM EDT [facility] Basophils % 0 % LAB HEMATOLOGY METHOD 03/31/2021 9:40 AM EDT [facility] Plasma Cells % 03/31/2021 9:40 AM EDT [facility] Lymphoma Cells % 03/31/20 9:40 AM EDT [facility] Hairy Cell % 03/31/2021 9:40 AM EDT [facility] Other Cells % 03/31/2021 9:40 AM EDT [facility] Blasts Absolute, CSF 0.00 uL LAB HEMATOLOGY METHOD 03/31/2021 9:40 AM EDT [facility] Promyelocytes Absolute 0.00 10*3/uL LAB HEMATOLOGY METHOD 03/31/2021 9:40 AM EDT [facility] Myelocytes Absolute 0.00 10*3/uL LAB HEMATOLOGY METHOD 03/31/2021 9:40 AM EDT [facility] Metamyelocytes Absolute 0.02 10*3/uL LAB HEMATOLOGY METHOD 03/31/2021 9:40 AM EDT [facility] Neutrophils Absolute 1.29(L) 1.60 - 6.10 10*3/uL LAB HEMATOLOGY METHOD 03/31/2021 9:40 AM EDT [facility] Lymphocytes Absolute 0.51(L) 1.20 - 3.90 10*3/uL LAB HEMATOLOGY METHOD 03/31/2021 9:40 AM EDT [facility] Reactive Lymphocytes Absolute 0.02 10*3/uL LAB HEMATOLOGY METHOD 03/31/2021 9:40 AM EDT [facility] Monocytes Absolute 0.28(L) 0.30 - 0.90 10*3/uL LAB HEMATOLOGY METHOD 03/31/2021 9:40 AM EDT [facility] Eosinophils Absolute 0.00 0.00 - 0.50 10*3/uL LAB HEMATOLOGY METHOD 03/31/2021 9:40 AM EDT [facility] Basophils Absolute 0.00 0.00 - 0.10 10*3/uL LAB HEMATOLOGY METHOD 03/31/2021 9:40 AM EDT [facility] Plasma Cells Absolute 03/31/2021 9:40 AM EDT [facility] Lymphoma Cells Absolute 03/31/2021 9:40 AM EDT [facility] Hairy Cells Absolute 03/31/2021 9:40 AM EDT [facility] Other Cells Absolute 03/31/2021 9:40 AM EDT [facility] Blood Venous blood specimen / Unknown Venipuncture / Unknown 03/31/2021 9:01 AM EDT 03/31/2021 9:06 AM EDT us Divine Carpenter MD LAB BLOOD ORDERABLES Final R esult [facility] [address] [place] [address] * (ABNORMAL) CBC and differential (03/31/2021 9:01 AM EDT) WBC Count 2.12(L) 3.70 - 10.30 10*3/uL LAB HEMATOLOGY METHOD 03/31/2021 9:40 AM EDT [facility] RBC Count 4.05(L) 4.60 - 6.10 10*6/uL LAB HEMATOLOGY METHOD 03/31/2021 9:40 AM EDT [facility] HGB 12.0(L) 13.7 - 17.5 g/dL LAB HEMATOLOGY METHOD 03/31/2021 9:40 AM EDT [facility] HCT 35.9(L) 40.0 - 51.0 % LAB HEMATOLOGY METHOD 03/31/2021 9:40 AM EDT [facility] Platelet Count 106(L) 155 - 369 10*3/uL LAB HEMATOLOGY METHOD 03/31/2021 9:40 AM EDT [facility] MCV 89 79 - 98 fL LAB HEMATOLOGY METHOD 03/31/2021 9:40 AM EDT [facility] MCH 29.6 26.0 - 32.0 pg LAB HEMATOLOGY METHOD 03/31/2021 9:40 AM EDT [facility] MCHC 33.4 30.7 - 35.5 g/dL LAB HEMATOLOGY METHOD 03/31/2021 9:40 AM EDT [facility] RDW 14.6(H) 11.5 - 14.5 % LAB HEMATOLOGY METHOD 03/31/2021 9:40 AM EDT [facility] MPV 10.1 8.8 - 12.5 fL LAB HEMATOLOGY METHOD 03/31/2021 9:40 AM EDT [facility] nRBC 0.0 <=0.0 per 100 WBCs LAB HEMATOLOGY METHOD 03/31/2021 9:40 AM EDT [facility] Differential Type Manual LAB HEMATOLOGY METHOD 03/31/2021 9:40 AM EDT [facility] Blood Venous blood specimen / Unknown Venipuncture / Unknown 03/31/2021 9:01 AM EDT 03/31/2021 9:06 AM EDT [facility] - 03/31/2021 9:40 AM EDT Therapeutic decision making should be based on absolute values, rather than percentages. The previously reported component Neutrophils % is no longer being reported.The previously reported component Lymphocytes % is no longer being reported.The previously reported component Monocytes % is no longer being reported.The previously reported component Eosinophils % is no longer being reported.The previously reported component Basophils % is no longer being reported.The previously reported component Immature Granulocytes % is no longer being reported.The previously reported component Absolute Neutrophils is no longer being reported.The previously reported component Absolute Lymphocytes is no longer being reported.The previously reported component Absolute Monocytes is no longer being reported.The previously reported component Absolute Eosinophils is no longer being reported.The previously reported component Absolute Basophils is no longer being reported.The previously reported component Absolute Immature Granulocytes is no longer being reported. us Divine Carpenter MD LAB BLOOD ORDERABLES Final R esult [facility] [address] [place] [address] * (ABNORMAL) Comprehensive metabolic panel (03/31/2021 9:01 AM EDT) Glucose, Plasma 115(H) 74 - 99 mg/dL 03/31/2021 10:00 AM EDT [facility] BUN, Plasma 9 7 - 21 mg/dL 03/31/2021 10:00 AM EDT [facility] Creatinine, Plasma 0.79(L) 0.80 - 1.30 mg/dL 03/31/2021 10:00 AM EDT [facility] BUN/Creatinine Ratio 11 03/31/2021 10:00 AM EDT [facility] Sodium, Plasma 141 136 - 145 mmol/L 03/31/2021 10:00 AM EDT [facility] Potassium, Plasma 3.9 3.7 - 4.8 mmol/L 03/31/2021 10:00 AM EDT [facility] Chloride, Plasma 102 97 - 107 mmol/L 03/31/2021 10:00 AM EDT [facility] CO2, Plasma 29 22 - 29 mmol/L 03/31/2021 10:00 AM EDT [facility] Anion Gap 10 6 - 16 mmol/L 03/31/2021 10:00 AM EDT [facility] Total Calcium, Plasma 9.2 8.9 - 10.2 mg/dL 03/31/2021 10:00 AM EDT [facility] Total Protein 6.8 6.3 - 7.9 g/dL 03/31/2021 10:00 AM EDT [facility] Albumin, Plasma 4.0 3.5 - 5.2 g/dL 03/31/2021 10:00 AM EDT [facility] AST, Plasma 15 12 - 40 U/L 03/31/2021 10:00 AM EDT [facility] ALT, Plasma 13 11 - 41 U/L 03/31/2021 10:00 AM EDT [facility] Alkaline Phosphatase, Plasma 93 40 - 115 U/L 03/31/2021 10:00 AM EDT [facility] Total Bilirubin, Plasma 0.4 0.2 - 1.1 mg/dL 03/31/2021 10:00 AM EDT [facility] eGFR >60 >60 mL/min/1.7 3m*2 03/31/2021 10:00 AM EDT [facility] Comment:eGFR = estimated GFR ; eGFR units = mL/min/1.73 sq meters Chronic Kidney Disease is considered if eGFR <60 mL/min/1.73 sq meters Kidney failure is considered if eGFR is <15 mL/min/1.73 sq meters. eGFR assumes steady state plasma creatinine concentration; not applicable if renal function is rapidly changing or patient is on dialysis. eGFR, if AFR/AM >60 >60 mL/min/1.7 3m*2 03/31/2021 10:00 AM EDT [facility] Comment:eGFR = estimated GFR ; [...] blood specimen / Unknown Venipuncture / Unknown 03/31/2021 9:01 AM EDT 03/31/2021 9:19 AM EDT us Divine Carpenter MD LAB BLOOD ORDERABLES Final R esult [facility] [address] [place] [address] * Magnesium (03/31/2021 9:01 AM EDT) Magnesium, Plasma 1.9 1.9 - 2.4 mg/dL 03/31/2021 10:00 AM EDT [facility] Blood Venous blood specimen / Unknown Venipuncture / Unknown 03/31/2021 9:01 AM EDT 03/31/2021 9:19 AM EDT Divine Carpenter MD LAB BLOOD ORDERABLES Final R esult Performing Organization Address City/[facility]/ZIP Co de Phone Number [facility] [address] [place] [address] documented in this encounter Visit Diagnoses Diagnosis 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, unspecified site documented in this encounter Additional Health Concerns Assessment Noted Time A fall risk assessment has been complete d for the patient 03/31/2021 10:03 AM EDT documented as of this encounter Care Teams Arch Support Technician Relationship Specialty Start Date End Date Michele Wright MD [address] [place] [address] PCP - General 10/11/20 Edgar Szymanski MD [address] [facility] [id number] [place] [id number] Radiation Oncologist Radiation Therapy 03/14/20 4 Shun Hurst [facility] [address] [facility] [address] [place] [id number] Surgeon Neurosurgery 02/24/21 documented as of this encounter
--- OUTSIDE RECORDS SUMMARY | 2024-05-03 13:44 | XMS_ITS | Encounter Summary ---
Author Organization [facility] Address [address] [place] [address] Care Team Providers Care Freight Traffic Consultant Name Role Phone Michlee Wright MD Primary Care Provider + [phone] Edgar Szymanski MD Unavailable [phone] Shun Hurst MD Unavailable [phone] Reason for Visit * Episode Based Medications (Routine) - Closed Specialty Diagnoses / Procedures Referred By Ortega t Referred To Contact Diagnoses Cancer of larynx (CMS/HCC) Divine Carpenter MD [address] [facility] [address] [place] [address] Phone: tel: fax: [facility] [address] [place] [address] Phone: tel: Referral ID Status Reason Start Date Expiration Date Visits Re quested Visits Authorized [id number] Closed 02/17/2021 10/25/2021 1 78 Encounter Details Date Type Department Care Team (Latest Contact Info) Description 04/04/2021 2:58 PM EDT - 04/04/2021 11:59 PM EDT Hospital Encounter [facility] [address] [place] [address] Cancer of larynx (CMS/HCC) Discharge [...] Sign Reading Time Taken Comments Blood Pressure 189/81 04/04/2021 3:00 PM EDT Pulse 50 04/04/2021 3:00 PM EDT Temperature 36.7 ??C (98 ??F) 04/04/2021 3:00 PM EDT Respiratory Rate 18 04/04/2021 3:00 PM EDT Oxygen Saturation 97% 04/04/2021 3:00 PM EDT Inhaled Oxygen Concentration - - Weight 97.5 kg (214 lb 15.2 oz) 04/04/2021 3:00 PM EDT Height 180.3 cm (5' 11 ) 04/04/2021 3:00 PM EDT Body Mass Index 29.98 04/04/2021 3:00 PM EDT documented in this encounter Medications [...] * Addendum Note - Shemar Hodges - 04/04/2021 4:00 PM EDTEncounter addended by: Shemar Hodges on: 04/07/2021 11:02 AM Actions taken: Charge Capture section accepted documented in this encounter Plan of Treatment Upcoming Encounters Date Type Department Care Team (Late st Contact Info) Description 07/17/2024 12:30 PM EST Clinical Support [facility] [address] [place] [address] 07/17/2024 1:30 PM EST Appointment [facility] [address] [place] [address] 07/20/2024 2:50 PM EST Office Visit [facility] [address] [place] [address] Divine Carpenter MD [address] [place] [address] documented as of this encounter Visit Diagnoses Diagnosis 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, unspecified site documented in this encounter Additional Health Concerns Assessment Noted Time A fall risk assessment has been complete d for the patient 04/04/2021 2:59 PM EDT documented as of this encounter Care Teams Freight Traffic Consultant Relationship Specialty Start Date End Date Michele Wright MD [address] [place] [address] PCP - General 10/11/20 Edgar Szymanski MD [address] [place] [address] Radiation Oncologist Radiation Therapy 03/14/20 4 Shun Hurst MD [address] [place] [address] Surgeon Neurosurgery 02/24/21 documented as of this encounter
--- OUTSIDE RECORDS SUMMARY | 2024-05-03 13:44 | XMS_ITS | Encounter Summary ---
Author Organization Healthcare Address [address] [place] [address] Care Team Providers Care Multi Spindle Operator Name Role Phone Michele Wright MD Primary Care Provider + [phone] Edgar Szymanski MD Unavailable [phone] Shun Hurst MD Unavailable Encounter Details Date Type Department Care Team (Late st Contact Info) Description 03/31/2021 8:55 AM EDT Clinical Support [facility] Multidisciplinary Oncology Clinic [address] [place] [address] Cassy Lopez, RN [id number] Social History Tobacco Use Types Packs/Day [...] encounter Miscellaneous Notes * Progress Notes - Cassy Lopez, RN - 03/31/2021 8:55 AM EDT Port labs documented in this encounter Plan of Treatment Upcoming Encounters Date Type Department Care Team (Late st Contact Info) Description 07/17/2024 12:30 PM EST Clinical Support [facility] [address] [place] [address] 07/17/2024 1:30 PM EST Appointment [facility] [address] [place] [address] 07/20/2024 2:50 PM EST Office Visit [facility] [address] [place] [address] Divine Carpenter MD [address] [place] [address] documented as of this encounter Visit Diagnoses Not on filedocumented in this encounter Additional Health Concerns Assessment Noted Time A fall risk assessment has been complete d for the patient 03/31/2021 10:03 AM EDT documented as of this encounter Care Teams Multi Spindle Operator Relationship Specialty Start Date End Date Michele Wright MD [address] [place] [address] PCP - General 10/11/20 Edgar Szymanski MD [address] [place] [address] Radiation Oncologist Radiation Therapy 03/14/20 4 Shun Hurst MD [address] [place] [phone] Surgeon Neurosurgery 02/24/21 documented as of this encounter
--- OUTSIDE RECORDS SUMMARY | 2024-05-03 13:44 | XMS_ITS | Encounter Summary ---
Author Organization Healthcare Address [address] [place] [address] Care Team Providers Care Jewelry Mechanic Name Role Phone Michele Wright MD Primary Care Provider + [phone] Edgar Szymanski MD Unavailable [phone] Shun Hurst MD Unavailable [phone] Encounter Details Date Type Department Care Team (Latest Contact Info) Description 03/10/2021 Travel Social History Tobacco Use Types Packs/Day [...] Upcoming Encounters Date Type Department Care Team ([facility] st Contact Info) Description 07/17/2024 12:30 PM EST Clinical Support [facility] [address] [facility] [place] [address] 07/17/2024 1:30 PM EST Appointment [facility] [address] [place] [address] 07/20/2024 2:50 PM EST Office Visit [facility] [address] [place] [address] Divine Carpenter MD [address] [place] [address] documented as of this encounter Visit Diagnoses Not on filedocumented in this encounter Additional Health Concerns Assessment Noted Time A fall risk assessment has been complete d for the patient 03/10/2021 11:02 AM EDT documented as of this encounter Care Teams Jewelry Mechanic Relationship Specialty Start Date End Date Michele Wright MD [address] [place] [address] PCP - General 10/11/20 Edgar Szymanski MD [address] [facility] [address] [place] [address] Radiation Oncologist Radiation Therapy 03/14/20 4 Shun Hurst MD [address] [facility] [address] [place] [address] Surgeon Neurosurgery 02/24/21 documented as of this encounter
--- OUTSIDE RECORDS SUMMARY | 2024-05-03 13:44 | XMS_ITS | Encounter Summary ---
Author Organization [facility] Address [address] [place], [place] [id number] Care Team Providers Care Rental Counter Clerk Name Role Phone Michele Wright MD Primary Care Provider + [phone] Edgar Szymanski MD Unavailable [phone] Shun Hurst MD Unavailable [phone] Divine Carpenter MD Unavailable [phone] Reason for Visit * Reason Onset Date Comments HCN - Patient Message 03/07/2021 Pt spouse calling to get plug that goes in throat and supplies for patient Encounter Details Date Type Department Care Team (Late st Contact Info) Description 03/07/2021 Telephone [facility] [address] [place] [address], [address] [place] [address] Mary Correia MD [address] [place] [address] HCN - Patient Message (Pt spouse calling to get plug that goes in throat and supplies for patient ) Social History Tobacco Use Types Packs/Day Years [...] encounter Miscellaneous Notes * Telephone Encounter - Oma Reyes - 03/10/2021 6:41 AM EDT . * Telephone Encounter - Cierra Li - 03/07/2021 2:33 PM EDT Patient Phone Message Reason for Call: Pt spouse calling to get plug that goes in throat and supplies for patient Best contact number and optimal time of day to reach caller: Amy Barreto / spouse [phone] Note: Please do not reply to this [...] [facility] [address] [facility] [place] [address] 07/17/2024 1:30 PM EST Appointment [facility] [address] [place] [address] 07/20/2024 2:50 PM EST Office Visit [facility] [address] [facility] [place] [address] Divine Carpenter MD [address] [facility] [address] [facility] [address] [place] [address] documented as of this encounter Visit Diagnoses Not on filedocumented in this encounter Additional Health Concerns Infection Onset Date Last Indicated Resolved Time COVID-19 Rule-Out 06/12/2021 06/12/2021 06/12/2021 12:25 PM EST COVID 19 (Confirmed) Comment:IPAC has verified patient has a COVID-19 positive result. A chart review has been completed, EPI PUI has been completed and sent to appropriate Health Dept. IPA Software Packaging Engineer: Doyle 06/12/2021 06/12/2021 07/03/2021 5: 23 AM EST Assessment Noted Time A fall risk assessment has been complete d for the patient 03/03/2021 2:17 PM EDT documented as of this encounter Care Teams Rental Counter Clerk Relationship Specialty Start Date End Date Michele Wright MD [address] [place], [place] [id number] PCP - General 10/11/20 Edgar Szymanski MD [address] [facility] [address] [place] [address] Radiation Oncologist Radiation Therapy 03/14/20 4 Shun Hurst MD [address] [facility] [address] [place] [address] Surgeon Neurosurgery 02/24/21 Divine Carpenter MD [address] [facility] [address] [place] [address] Medical Oncologist Medical Oncology 06/13/21 documented as of this encounter
--- OUTSIDE RECORDS SUMMARY | 2024-05-03 13:44 | XMS_ITS | Encounter Summary ---
Author Organization [facility] Address [address] [place] [address] Care Team Providers Care Tower Director Name Role Phone Michele Wright MD Primary Care Provider [phone] Edgar Szymanski MD Unavailable [phone] Shun Hurst MD Unavailable [phone] Reason for Referral * Imaging (Routine) - Closed Specialty Diagnoses / Procedures Referred By Contac t Referred To Contact Radiology Diagnoses Cancer of larynx (CMS/HCC) Procedures CT Soft Tissue Neck w IV Contrast Bailey lElis MD [address] [address] Phone: tel: fax: Referral ID Status Reason Start Date Expiration Date Visits Re quested Visits Authorized [id number] Closed 03/09/2021 09/08/2022 1 1 * Imaging (Routine) - Closed Specialty Diagnoses / Procedures Referred By Contac t Referred To Contact Radiology Diagnoses Cancer of larynx (CMS/HCC) Procedures CT Chest w IV Contrast Bailye Ellis MD [address] [address] Phone: tel: fax: Referral ID Status Reason Start Date Expiration Date Visits Re quested Visits Authorized [id number] Closed 03/09/2021 09/08/2022 1 1 Reason for Visit * Reason Comments Follow-up Labs PORT * Episode Based Medications (Routine) - Closed Specialty Diagnoses / Procedures Referred By Ortega harden Referred To Contact Diagnoses Cancer of larynx (CMS/HCC) Bailey Ellis MD [address] [facility] Diane Zuniga [facility] [address] [place] [address] Phone: tel: fax: [facility] [address] [place] [address] Phone: tel: Referral ID Status Reason Start Date Expiration Date Visits Re quested Visits Authorized [id number] Closed 02/17/2021 10/25/2021 1 78 Encounter Details Date Type Department Care Team ([facility] Contact Info) Description 03/10/2021 10:00 AM EDT Office Visit Pav CC Head, Neck & Respiratory [address] [facility], [address] [place] [address] Bailey Ellis MD [address] [facility] Diane Zuniga [facility] [address] [place] [address] Cancer of larynx (CMS/HCC) (Primary Dx); Neoplasm related pain; Dysphagia, pharyngeal Social History Tobacco Use Types Packs/Day Years [...] Sign Reading Time Taken Comments Blood Pressure 158/94 03/10/2021 9:50 AM EDT Pulse 60 03/10/2021 9:50 AM EDT Temperature 36.8 ??C (98.2 ??F) 03/10/2021 9:50 AM ED T Respiratory Rate 16 03/10/2021 9:50 AM EDT Oxygen Saturation 94% 03/10/2021 9:50 AM EDT Inhaled Oxygen Concentration - - Weight 98.5 kg (217 lb 2.5 oz) 03/10/2021 9:50 A M EDT Height 176.5 cm (5' 9.49 ) 03/10/2021 9:50 AM ED T Body Mass Index 31.62 03/10/2021 9:50 AM EDT documented in this encounter Miscellaneous Notes * Progress Notes - Bailey Ellis MD - 03/10/2021 10:00 AM EDT MEDICAL ONCOLOGY FOLLOW-UP NOTE Patient Information Patient Name: Anibal Barreto Date of : 1965 REFERRING PHYSICIAN: Michele Wright MD Encounter Date: 03/10/2021 Treatment Diagnosis: Cancer Staging Cancer of larynx [...] who returns for followup of his Cancer of larynx (CMS/HCC), Staging form: Larynx - Glottis, 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 He had an allergic reaction to cetuximab at last infusion and this was very serious. He has recovered and presents for furthertreatment planning. Oncology History Overview Note Mr Anibal Barreto [...] with adenopathy in levels 2 through 4 [id number] PET/CT scan dated 02/19/2017 showed an intensely hypermetabolic epiglottis and mucosa extending to the true vocal cords, slightly asymmetric involving the right pyriform sinus and aryepiglottic fold with 27 4 mSUV along with intensely hypermetabolic bilateral cervical lymph nodes 4 A biopsy performed here at 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 Cancer of larynx ([facility]/HCC) 02/19/2017 Cancer Staged Staging form: Larynx - Glottis, AJCC 8th Edition, Clinical stage from 02/19/2017: Stage ZULAY (cT3, cN2c, cM0) - Signed by Bailey Ellis MD on 10/14/2020 03/18/2017 Initial Diagnosis Cancer of larynx ([facility]) 03/22/2018 Cancer Staged Staging form: Larynx - Glottis, AJCC 8th Edition, Pathologic stage from 03/22/2018: Stage III (rpT3, pN0, cM0) - Signed by Bailey Ellis MD on 10/14/2020 11/21/2019 Cancer Staged Staging form: Larynx - Glottis, AJCC 8th Edition, Pathologic stage from 11/21/2019: Stage IVC (rpTX,pNX, pM1) - Signed by Bailey Ellis MD on 10/14/2020 03/14/2020 - 11/24/2020 Research Study Participant [id number]: Pembrolizumab Every 42 Days Every 84 Days Plan Provider: Bailey Ellis MD Treatment goal: Palliative Line of treatment: Second Line Associated studies: Priming Immunotherapy in Advanced Disease with Radiation 11/26/2020 - Radiation Therapy The patient saw No care steam conditioner operator to display for radiation treatment. This is the current list ofradiation treatment: Radiation Treatments No radiation treatments to show. (Treatments may have been administered in another system.) 12/09/2020 - Radiation Therapy The patient saw No care steam conditioner operator to display for radiation treatment. This [...] mg, Intravenous, Once, 1 of 6 cycles fluorouracil (Adrucil) 8,750 mg in sodium chloride 0.9 % 230 mL chemo infusion - for home use, 4,000 mg/m2 = 8,750 mg, Intravenous, Over 96 hours, 1 of 6 cycles aprepitant (Cinvanti) 130 MG/18ML IV 130 mg, 130 mg, Intravenous, Once, 1 of 6 cycles Secondary malignant neoplasm of chest wall (CMS/HCC) 11/26/2020 - Radiation Therapy The patient saw No care steam conditioner operator to display for radiation treatment. This is the current list ofradiation treatment: Radiation Treatments No radiation treatments to show. (Treatments may have been administered in another system.) 11/26/2020 Initial Diagnosis Secondary malignant neoplasm of chest wall (CMS/HCC) 12/09/2020 - Radiation Therapy The patient saw No care steam conditioner operator to display for radiation treatment. This is the current list ofradiation treatment: Radiation Treatments No radiation treatments to show. (Treatments may have been administered in another system.) Currently, he denies fever, or chills, dysuria, hematuria, constipation, melena, diarrhea, hematochezia, hematemesis, abdominal pain, shortness of breath, cough, sputum production, mental status changes, neuropathy, chest pain, palpitations, rash, itching, but has worsening dysphagia to solids, titi sensation of things getting stuck , without stridor. Problem List and Medications Reviewed in this encounter by me personally Objective Performance Status 0: Fully active, able to carry on all pre-disease performance without restriction Blood pressure (!) 158/94, pulse 60, temperature 36.8 ??C (98.2 ??F), temperature source Oral, resp. rate 16, height 1.765 m (5' 9.49 ), weight 98.5 kg (217 lb 2.5 oz), SpO2 94 %. EXAM Physical Exam Constitutional: General: He is not in acute distress. Appearance: Normal appearance. He is normal weight. He is not ill-appearing. HENT: Right Ear: External ear normal. Left Ear: External ear normal. Nose: Nose normal. Mouth/Throat: Pharynx: Oropharynx is clear. No oropharyngeal exudate or posterior oropharyngeal erythema. Cardiovascular: Rate and Rhythm: Normal rate and [...] reviewed by me personally today CBC WBC 3.52 Hgb 13.5 PLT 105 HCT 40.7 Lab Results Component Value Date NEUTROABS 2.72 03/10/2021 BMPL Na 142 Cl 103 BUN 18 Gluc 91 K 4.0 Co2 29 Creat 0.59 LIVER FUNCTION TESTING Tot Prot 7.2 AST 14 Tot bili 0.4 ALT 14 Alkphos 81 Ca 9.4 Mg 1.9 RADIOLOGY: I visualized the recent imaging below and discussed the current radiology findings with the patientin detail and provided the report to the patient and answered all questions. CT Soft Tissue Neck w IV Contrast Result Date: 03/04/2021 Impression: Extensive postsurgical and radiation effects as detailed above. No tumor recurrence or cervical adenopathy. CT Chest w IV Contrast Result Date: 03/04/2021 Impression: No definite evidence of thoracic progression. New tiny clustered left lower lobe nodules are most likely infectious or inflammatory. Attention to these on short interval follow-up recommended. CRITICAL RESULT: No. COMMUNICATION: Per this written report. Signed by Louie Liu on 03/04/2021 9:32 AM Assessment/Plan 1.??Cancer management :??Cancer Staging Cancer of larynx (CMS/HCC), Staging form: Larynx - Glottis,AJCC 8th Edition, Pathologic: Stage IVC?(recurrent) -This represents a life threatening illness for which continued cancer treatment is indicated. 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 - I visualized [...] to 5FU/Carbo secondary to anaphylaxis to cetuximab - I counseled the patient regarding risk and benefits of chemotherapy including pancytopenia, infection, injury to organs (kidneys, liver, nerves), nausea, vomiting and fatigue as well as possible alopecia, and provided teaching materials on these risks. I obtained informed consent today. I have written and calculated this chemotherapy. I also provided teaching sheets and education materials to the patient and answered all questions. I gave new scripts for Zofran 8 mg q8 hrs x 3 days after chemotherapy and Compazine 10mg q6hr prn nausea and teaching sheets on how to take these medications. Prescribed immodium and lomotil prn 2. 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 - I have evaluated the prescription pain medications currently in use and refilled??his oxycodone - The patient continues to experience pain directly related to their neoplasm requiring monitoring and adjustments in dosage and frequency of narcotic and adjunctive medications by me. KEVAN report reviewed and will be reviewed periodically 3. 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 - Weight stable, but increasing dysphagia--will see Dr. Correia soon with MBS and potential need foresophageal dilation. 4. Monitoring for the emergence of hypothyroidism?? - Continue levothyroxine ??at current dose Lab Results Component Value Date TSH 1.75 03/03/2021 - This will be periodically monitored as we continue therapy, due to the potential for worsening ofthyroid function from radiation and systemic cancer therapy. 5. Regimen Related Toxicity:?? - Chemotherapy Induced Nausea:??Prescribed??ondansetron, compazine and will monitor for nausea and vomiting. - Reasonably controlled. Bailey Ellis MD Orders Placed This Encounter Procedures ??? CT Chest w IV Contrast ??? CT Soft Tissue Neck w IV Contrast ??? CBC and differential ??? Comprehensive metabolic panel ??? Magnesium ??? CBC and differential ??? Comprehensive metabolic panel ??? Magnesium * Progress Notes - Amadou Barragan, PharmD - 03/10/2021 10:00 AM EDT Pharmacy Hematology/Oncology Follow-up Treatment Plan Note Anibal [...] anaphylaxis with cetuximab, will switch to carboplatin/5FU Treatment plan reviewed: C1 carboplatin/5FU Dosing Wt: 102 kg Today's Wt: 98.5 kg Dosing Ht: 177.8 cm DosingBSA: 2.19 m2 Recent Labs Lab Results Component Value Date WBC 4.03 02/17/2021 HGB 13.3 (L) 02/17/2021 HCT 41.5 02/17/2021 MCV 88 02/17/2021 PLT 107 (L) 02/17/2021 Lab Results Component Value Date GLUCOSE 91 03/03/2021 CALCIUM 9.2 03/03/2021 NA 139 03/03/2021 K 4.0 03/03/2021 CO2 29 03/03/2021 CL 101 03/03/2021 BUN 10 03/03/2021 CREATININE 0.57 (L) 03/03/2021 Lab Results Component Value Date ALT 16 03/03/2021 AST 15 03/03/2021 ALKPHOS 78 03/03/2021 BILITOT 0.5 03/03/2021 Lab Results Component Value Date NEUTROABS 3.13 02/17/2021 Lab Results Component Value Date MG 2.0 02/17/2021 Lab Results Component Value Date TSH 1.75 03/03/2021 No results found for: UTPCR Vitals: Visit Vitals BP (!) 158/94 (BP Location: Right arm) Pulse 60 Temp 36.8 ??C (98.2 ??F) (Oral) Resp 16 Study Patient: No Chemotherapy Regimen Carboplatin AUC 5 IV D1 5-flourouracil 4000 mg/m2 (8750 mg) IV 1 Every 21 days [x] No dose adjustments made Current Treatment Plan History Carboplatin/5FU C1: 03/10/21 Prior Chemotherapy History Pembrolizumab (Multi-20 study) C1: 03/14 C2: 04/04 C3: 04/25 (transition to 400 mg [id number]) C4: 06/03/20 C5: 07/22/20 C6: 09/02/20 C7: 10/14/20 Carbo/cetux C1: 01/27/21 (only received Day 1) C2: 02/17/21 (had anaphylaxis to cetuximab) Patient will return to clinic in 3 weeks. Will follow-up at that time. Pharmacist Attestation: Amadou Barragan, PharmCristian 03/10/2021 10:32 AM documented in this encounter Plan of Treatment Upcoming Encounters Date Type Department Care Team (Late st Contact Info) Description 07/17/2024 12:30 PM EST Clinical Support Pav CC Head, Neck & Respiratory [address] [facility], [address] [place] [address] 07/17/2024 1:30 PM EST Appointment [facility] [address] [place] [address] 07/20/2024 2:50 PM EST Office Visit Pav CC Head, Neck & Respiratory [address] [facility], [address] [place] [address] Bailey Ellis MD [address] [facility] [address] [place] [address] documented as of this encounter Procedures Procedure Name Priority Date/Time Associated Diagnosis Comments CBC WITH AUTO DIFFERENTIAL Routine 03/10/2021 10:01 AM EDT Cancer of larynx (CMS/HCC) MAGNESIUM, PLASMA STAT 03/10/2021 10: 01 AM EDT Cancer of larynx (CMS/HCC) COMPREHENSIVE METABOLIC PANEL, PLASMA Routine 03/10/2021 10:01 AM EDT Cancer of larynx (CMS/HCC) documented [...] written report. Signed by Anibal Santana on ??05/08/2021 4:50 PM Narrative 05/08/2021 4:50 PM EST Exam/Procedure: CT SOFT TISSUE NECK W IV CONTRAST ordered by BAILEY ELLIS, [id number] CLINICAL INDICATION: Head/neck cancer, assess treatment response. [...] W IV CONTRAST ordered by BAILEY MOREIRA, [id number] CLINICAL INDICATION: Head/neck cancer, assess treatment response. [...] W IV CONTRAST ordered by BAILEY ELLIS, [id number] CLINICAL INDICATION: Cough, persistent TECHNIQUE: Multiple CT [...] CHEST W IV CONTRAST ordered by BAILEY ELLIS,[id number] CLINICAL INDICATION: Cough, persistent TECHNIQUE: Multiple CT [...] written report. Signed by Brianna Carranza on 05/08/2021 2:41 PM us Bailey Ellis MD IMG CT PROCEDURES Final Resu lt * (ABNORMAL) CBC and differential (04/21/2021 10:34 AM EST) WBC Count 1.50(LL) 3.70 - 10.30 10*3/uL LAB HEMATOLOGY METHOD 04/21/2021 10:34 AM EST [facility] RBC Count 3.27(L) 4.60 - 6.10 10*6/uL LAB HEMATOLOGY METHOD 04/21/2021 10:34 AM EST [facility] HGB 9.8(L) 13.7 - 17.5 g/dL LAB HEMATOLOGY METHOD 04/21/2021 10:34 AM EST [facility] HCT 30.1(L) 40.0 - 51.0 % LAB HEMATOLOGY METHOD 04/21/2021 10:34 AM EST [facility] Platelet Count 102(L) 155 - 369 10*3/uL LAB HEMATOLOGY METHOD 04/21/2021 10:34 AM EST [facility] MCV 92 79 - 98 fL LAB HEMATOLOGY METHOD 04/21/2021 10:34 AM EST [facility] MCH 30.0 26.0 - 32.0 pg LAB HEMATOLOGY METHOD 04/21/2021 10:34 AM EST [facility] MCHC 32.6 30.7 - 35.5 g/dL LAB HEMATOLOGY METHOD 04/21/2021 10:34 AM EST [facility] RDW 16.9(H) 11.5 - 14.5 % LAB HEMATOLOGY METHOD 04/21/2021 10:34 AM EST [facility] MPV 10.9 8.8 - 12.5 fL LAB HEMATOLOGY METHOD 04/21/2021 10:34 AM EST [facility] nRBC 0.0 <=0.0 per 100 WBCs LAB HEMATOLOGY METHOD 04/21/2021 10:34 AM EST [facility] Differential Type Automated LAB HEMATOLOGY METHOD 04/21/2021 10:34 AM EST [facility] Neutrophils % 42.0 % LAB HEMATOLOGY METHOD 04/21/2021 10:34 AM EST [facility] Lymphocytes % 33.0 % LAB HEMATOLOGY METHOD 04/21/2021 10:34 AM EST [facility] Monocytes % 25.0 % LAB HEMATOLOGY METHOD 04/21/2021 10:34 AM EST [facility] Eosinophils % 0.0 % LAB HEMATOLOGY METHOD 04/21/2021 10:34 AM EST [facility] Basophils % 0.0 % LAB HEMATOLOGY METHOD 04/21/2021 10:34 AM EST [facility] Immature Granulocytes % 0.0 % LAB HEMATOLOGY METHOD 04/21/2021 10:34 AM EST [facility] Neutrophils Absolute 0.64(LL) 1.60 - 6.10 10*3/uL LAB HEMATOLOGY METHOD 04/21/2021 10:34 AM EST [facility] Lymphocytes Absolute 0.49(L) 1.20 - 3.90 10*3/uL LAB HEMATOLOGY METHOD 04/21/2021 10:34 AM EST [facility] Monocytes Absolute 0.37 0.30 - 0.90 10*3/uL LAB HEMATOLOGY METHOD 04/21/2021 10:34 AM EST [facility] Eosinophils Absolute 0.00 0.00 - 0.50 10*3/uL LAB HEMATOLOGY METHOD 04/21/2021 10:34 AM EST [facility] Basophils Absolute 0.00 0.00 - 0.10 10*3/uL LAB HEMATOLOGY METHOD 04/21/2021 10:34 AM EST [facility] Immature Granulocytes Absolute 0.00 0.00 - 0.06 10*3/uL LAB HEMATOLOGY METHOD 04/21/2021 10:34 AM EST [facility] Blood Venous blood specimen / Unknown 04/21/2021 9:42 AM EST Narrative [facility] - 04/21/2021 10:34 AM EST Therapeutic decision making should be based on absolute values, rather than percentages. Bailey Ellis MD LAB BLOOD ORDERABLES Final R esult Performing Organization Address City/[facility]/ZIP Co de Phone Number [facility] [address] [place] [address] * (ABNORMAL) Magnesium (04/21/2021 10:12 AM EST) Magnesium, Plasma 1.8(L) 1.9 - 2.4 mg/dL 04/21/2021 10:12 AM EST [facility] Blood Venous blood specimen / Unknown 04/21/2021 9:42 AM EST Bailey Ellis MD LAB BLOOD ORDERABLES Final R esult Performing Organization Address City/[facility]/ZIP Co de Phone Number [facility] [address] [place] [address] * (ABNORMAL) Comprehensive metabolic panel (04/21/2021 10:12 AM [facility] Glucose, Plasma 109(H) 74 - 99 mg/dL 04/21/2021 10:12 AM [facility] BUN, Plasma 7 7 - 21 mg/dL 04/21/2021 10:12 AM [facility] Creatinine, Plasma 0.89 0.80 - 1.30 mg/dL 04/21/2021 10:12 AM [facility] BUN/Creatinine Ratio 8 04/21/2021 10:12 AM [facility] Sodium, Plasma 139 136 - 145 mmol/L 04/21/2021 10:12 AM [facility] Potassium, Plasma 4.1 3.7 - 4.8 mmol/L 04/21/2021 10:12 AM [facility] Chloride, Plasma 101 97 - 107 mmol/L 04/21/2021 10:12 AM [facility] CO2, Plasma 29 22 - 29 mmol/L 04/21/2021 10:12 AM [facility] Anion Gap 9 6 - 16 mmol/L 04/21/2021 10:12 AM [facility] Total Calcium, Plasma 9.2 8.9 - 10.2 mg/dL 04/21/2021 10:12 AM [facility] Total Protein 6.5 6.3 - 7.9 g/dL 04/21/2021 10:12 AM [facility] Albumin, Plasma 3.9 3.5 - 5.2 g/dL 04/21/2021 10:12 AM [facility] AST, Plasma 18 12 - 40 U/L 04/21/2021 10:12 AM [facility] ALT, Plasma 10(L) 11 - 41 U/L 04/21/2021 10:12 AM [facility] Alkaline Phosphatase, Plasma 88 40 - 115 U/L 04/21/2021 10:12 AM [facility] Total Bilirubin, Plasma 0.4 0.2 - 1.1 mg/dL 04/21/2021 10:12 AM [facility] eGFR >60 >60 mL/min/1.7 3m*2 04/21/2021 10:12 AM [facility] Comment:eGFR = estimated GFR ; eGFR [...] >60 >60 mL/min/1.7 3m*2 04/21/2021 10:12 AM EST [facility] Comment:eGFR = estimated GFR ; [...] specimen / Unknown 04/21/2021 9:42 AM EST Bailey Ellis MD LAB BLOOD ORDERABLES Final R esult Performing Organization Address City/[facility] Co de Phone Number [facility] [address] [place] [address] * Magnesium (03/31/2021 9:01 AM EDT) Magnesium, Plasma 1.9 1.9 - 2.4 mg/dL 03/31/2021 10:00 AM EDT [facility] Blood Venous blood specimen / Unknown Venipuncture / Unknown 03/31/2021 9:01 AM EDT 03/31/2021 9:19 AM EDT Bailey Ellis MD LAB BLOOD ORDERABLES Final R esult Performing Organization Address City/State/[facility] Co de Phone Number [facility] [address] [place] [address] * (ABNORMAL) Comprehensive metabolic panel (03/31/2021 9:01 AM EDT) Glucose, Plasma 115(H) 74 - 99 mg/dL 03/31/2021 10:00 AM EDT [facility] BUN, Plasma 9 7 - 21 mg/dL 03/31/2021 10:00 AM EDT [facility] Creatinine, Plasma 0.79(L) 0.80 - 1.30 mg/dL 03/31/2021 10:00 AM [facility] BUN/Creatinine Ratio 11 03/31/2021 10:00 AM [facility] Sodium, Plasma 141 136 - 145 mmol/L 03/31/2021 10:00 AM [facility] Potassium, Plasma 3.9 3.7 - 4.8 mmol/L 03/31/2021 10:00 AM [facility] Chloride, Plasma 102 97 - 107 mmol/L 03/31/2021 10:00 AM [facility] CO2, Plasma 29 22 - 29 mmol/L 03/31/2021 10:00 AM [facility] Anion Gap 10 6 - 16 mmol/L 03/31/2021 10:00 AM [facility] Total Calcium, Plasma 9.2 8.9 - 10.2 mg/dL 03/31/2021 10:00 AM [facility] Total Protein 6.8 6.3 - 7.9 g/dL 03/31/2021 10:00 AM [facility] Albumin, Plasma 4.0 3.5 - 5.2 g/dL 03/31/2021 10:00 AM [facility] AST, Plasma 15 12 - 40 U/L 03/31/2021 10:00 AM [facility] ALT, Plasma 13 11 - 41 U/L 03/31/2021 10:00 AM [facility] Alkaline Phosphatase, Plasma 93 40 - 115 U/L 03/31/2021 10:00 AM [facility] Total Bilirubin, Plasma 0.4 0.2 - 1.1 mg/dL 03/31/2021 10:00 AM [facility] eGFR >60 >60 mL/min/1.7 3m*2 03/31/2021 10:00 AM [facility] Comment:eGFR = estimated GFR ; [...] >60 mL/min/1.7 3m*2 03/31/2021 10:00 AM EDT [facility] Comment:eGFR = estimated GFR ; [...] AM EDT 03/31/2021 9:19 AM EDT us Bailey Ellis MD LAB BLOOD ORDERABLES Final R esult [facility] [address] [place] [id number] * (ABNORMAL) CBC and differential (03/31/2021 9:01 AM EDT) WBC Count 2.12(L) 3.70 - 10.30 10*3/uL LAB HEMATOLOGY METHOD 03/31/2021 9:40 AM EDT [facility] RBC Count 4.05(L) 4.60 - 6.10 10*6/uL LAB HEMATOLOGY METHOD 03/31/2021 9:40 AM EDT [facility] HGB 12.0(L) 13.7 - 17.5 g/dL LAB HEMATOLOGY METHOD 03/31/2021 9:40 AM EDT [facility] HCT 35.9(L) 40.0 - 51.0 % LAB HEMATOLOGY METHOD 03/31/2021 9:40 AM EDT [facility] Platelet Count 106(L) 155 - 369 10*3/uL LAB HEMATOLOGY METHOD 03/31/2021 9:40 AM EDT [facility] MCV 89 79 - 98 fL LAB HEMATOLOGY METHOD 03/31/2021 9:40 AM EDT [facility] MCH 29.6 26.0 - 32.0 pg LAB HEMATOLOGY METHOD 03/31/2021 9:40 AM EDT [facility] MCHC 33.4 30.7 - 35.5 g/dL LAB HEMATOLOGY METHOD 03/31/2021 9:40 AM EDT [facility] RDW 14.6(H) 11.5 - 14.5 % LAB HEMATOLOGY METHOD 03/31/2021 9:40 AM EDT [facility] MPV 10.1 8.8 - 12.5 fL LAB HEMATOLOGY METHOD 03/31/2021 9:40 AM EDT [facility] nRBC 0.0 <=0.0 per 100 WBCs LAB HEMATOLOGY METHOD 03/31/2021 9:40 AM EDT [facility] Differential Type Manual LAB HEMATOLOGY METHOD 03/31/2021 9:40 AM EDT [facility] Blood Venous blood specimen / Unknown Venipuncture / Unknown 03/31/2021 9:01 AM EDT 03/31/2021 9:06 AM EDT Narrative [facility] - 03/31/2021 9:40 AM EDT [...] Immature Granulocytes is no longer being reported. Bailey Ellis MD LAB BLOOD ORDERABLES Final R esult [facility] [address] [place] [address] * (ABNORMAL) CBC and differential (03/10/2021 10:01 AM EDT) WBC Count 3.52(L) 3.70 - 10.30 10*3/uL LAB HEMATOLOGY METHOD 03/10/2021 10:54 AM EDT [facility] RBC Count 4.61 4.60 - 6.10 10*6/uL LAB HEMATOLOGY METHOD 03/10/2021 10:54 AM EDT [facility] HGB 13.5(L) 13.7 - 17.5 g/dL LAB HEMATOLOGY METHOD 03/10/2021 10:54 AM EDT [facility] HCT 40.7 40.0 - 51.0 % LAB HEMATOLOGY METHOD 03/10/2021 10:54 AM EDT [facility] Platelet Count 105(L) 155 - 369 10*3/uL LAB HEMATOLOGY METHOD 03/10/2021 10:54 AM EDT [facility] MCV 88 79 - 98 fL LAB HEMATOLOGY METHOD 03/10/2021 10:54 AM EDT [facility] MCH 29.3 26.0 - 32.0 pg LAB HEMATOLOGY METHOD 03/10/2021 10:54 AM EDT [facility] MCHC 33.2 30.7 - 35.5 g/dL LAB HEMATOLOGY METHOD 03/10/2021 10:54 AM EDT [facility] RDW 13.7 11.5 - 14.5 % LAB HEMATOLOGY METHOD 03/10/2021 10:54 AM EDT [facility] MPV 10.1 8.8 - 12.5 fL LAB HEMATOLOGY METHOD 03/10/2021 10:54 AM EDT [facility] nRBC 0.0 <=0.0 per 100 WBCs LAB HEMATOLOGY METHOD 03/10/2021 10:54 AM EDT [facility] Differential Type Automated LAB HEMATOLOGY METHOD 03/10/2021 10:54 AM EDT [facility] Neutrophils % 76.0 % LAB HEMATOLOGY METHOD 03/10/2021 10:54 AM EDT [facility] Lymphocytes % 13.0 % LAB HEMATOLOGY METHOD 03/10/2021 10:54 AM EDT [facility] Monocytes % 10.0 % LAB HEMATOLOGY METHOD 03/10/2021 10:54 AM EDT [facility] Eosinophils % 0.0 % LAB HEMATOLOGY METHOD 03/10/2021 10:54 AM EDT [facility] Basophils % 0.0 % LAB HEMATOLOGY METHOD 03/10/2021 10:54 AM EDT [facility] Immature Granulocytes % 1.0 % LAB HEMATOLOGY METHOD 03/10/2021 10:54 AM EDT [facility] Neutrophils Absolute 2.72 1.60 - 6.10 10*3/uL LAB HEMATOLOGY METHOD 03/10/2021 10:54 AM EDT [facility] Lymphocytes Absolute 0.44(L) 1.20 - 3.90 10*3/uL LAB HEMATOLOGY METHOD 03/10/2021 10:54 AM EDT [facility] Monocytes Absolute 0.34 0.30 - 0.90 10*3/uL LAB HEMATOLOGY METHOD 03/10/2021 10:54 AM EDT [facility] Eosinophils Absolute 0.00 0.00 - 0.50 10*3/uL LAB HEMATOLOGY METHOD 03/10/2021 10:54 AM EDT [facility] Basophils Absolute 0.00 0.00 - 0.10 10*3/uL LAB HEMATOLOGY METHOD 03/10/2021 10:54 AM EDT [facility] Immature Granulocytes Absolute 0.02 0.00 - 0.06 10*3/uL LAB HEMATOLOGY METHOD 03/10/2021 10:54 AM EDT [facility] Blood Venous blood specimen / Unknown Venipuncture / Unknown 03/10/2021 10:01 AM EDT 03/10/2021 10:42 AM EDT Narrative [facility] - 03/10/2021 10:54 AM EDT Therapeutic decision making should be based on absolute values, rather than percentages. us Bailey Ellis MD LAB BLOOD ORDERABLES Final R esult [facility] [address] [place], [place] [id number] * (ABNORMAL) Comprehensive metabolic panel (03/10/2021 10:01 AM EDT) Glucose, Plasma 91 74 - 99 mg/dL 03/10/2021 11:11 AM EDT [facility] BUN, Plasma 18 7 - 21 mg/dL 03/10/2021 11:11 AM EDT [facility] Creatinine, Plasma 0.59(L) 0.80 - 1.30 mg/dL 03/10/2021 11:11 AM EDT [facility] BUN/Creatinine Ratio 31 03/10/2021 11:11 AM EDT [facility] Sodium, Plasma 142 136 - 145 mmol/L 03/10/2021 11:11 AM EDT [facility] Potassium, Plasma 4.0 3.7 - 4.8 mmol/L 03/10/2021 11:11 AM EDT [facility] Chloride, Plasma 103 97 - 107 mmol/L 03/10[facility] CO2, Plasma 29 22 - 29 mmol/L 03/10/2021 11:[facility] Anion Gap 10 6 - 16 mmol/L 03/10/2021 11:11 AM EDT [facility] Total Calcium, Plasma 9.4 8.9 - 10.2 mg/dL 03/10/2021 11:11 AM [facility] Total Protein 7.2 6.3 - 7.9 g/dL 03/10/2021 11:11 AM [facility] Albumin, Plasma 4.2 3.5 - 5.2 g/dL 03/10/2021 11:11 [facility] AST, Plasma 14 12 - 40 U/L 03/10/2021 11:11 AM [facility] ALT, Plasma 14 11 - 41 U/L 03/10/2021 11:11 AM [facility] Alkaline Phosphatase, Plasma 81 40 - 115 U/L 03/10/2021 11:11 AM [facility] Total Bilirubin, Plasma 0.4 0.2 - 1.1 mg/dL 03/10/2021 11:11 AM [facility] eGFR >60 >60 mL/min/1.7 3m*2 03/10/2021 11:11 AM [facility] Comment:eGFR = estimated GFR ; eGFR units = mL/min/1.73 sq meters Chronic Kidney Disease is considered if eGFR <60 mL/min/1.73 sq meters Kidney failure is considered if eGFR is <15 mL/min/1.73 sq meters. eGFR assumes steady state plasma creatinine concentration; not applicable if renal function is rapidly changing or patient is on dialysis. eGFR, if AFR/AM >60 >60 mL/min/1.7 3m*2 03/10/2021 11:11 AM [facility] Comment:eGFR = estimated GFR ; [...] blood specimen / Unknown Venipuncture / Unknown 03/10/2021:01 AM EDT 03/10/2021 10:39 AM EDT us Bailey Ellis MD LAB BLOOD ORDERABLES Final R esult [facility] [address] [place] [address] * Magnesium (03/10/2021 10:01 AM EDT) Magnesium, Plasma 1.9 1.9 - 2.4 mg/dL 03/10/2021 11:11 AM EDT [facility] Blood Venous blood specimen / Unknown Venipuncture / Unknown 03/10/2021 10:01 AM EDT 03/10/2021 10:39 AM EDT us Bailey Ellis MD LAB BLOOD ORDERABLES Final R esult Performing Organization Address City/[facility]/ZIP Co de Phone Number [facility] [address] [place] [address] documented in this encounter Visit Diagnoses Diagnosis 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, unspecified site Neoplasm related pain Neoplasm related pain (acute) (chronic) Dysphagia, pharyngeal Dysphagia, pharyngeal phase 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, unspecified site documented in this encounter Additional Health Concerns Assessment Noted Time A fall risk assessment has been complete d for the patient 03/10/2021 11:02 AM EDT documented as of this encounter Care Teams Tower Director Relationship Specialty Start Date End Date Michele Wright MD [address] [place] [address] PCP - General 10/11/20 Edgar Szymanski MD 800 [facility] [address] [place] [phone] Radiation Oncologist Radiation Therapy 03/14/20 4 Shun Hurst MD [address] [place] [address] Surgeon Neurosurgery 02/24/21 documented as of this encounter
--- OUTSIDE RECORDS SUMMARY | 2024-05-03 13:44 | XMS_ITS | Encounter Summary ---
Author Organization Healthcare Address [address] [place] [address] Care Team Providers Care Parks And Recreation Manager Name Role Phone Michele Wright MD Primary Care Provider + [phone] Edgar Szymanski MD Unavailable [phone] Shun Hurst MD Unavailable [phone] Encounter Details Date Type Department Care Team (Latest Contact Info) Description 03/06/2021 Travel Social History Tobacco Use Types Packs/Day [...] 800 [facility], [address]nd [place] [address] 07/17/2024 1:30 PM EST Appointment [facility] Radiology [address] [place] [address] 07/20/2024 2:50 PM EST Office Visit Pav [facility] Head[facility] Neck & Respiratory [address] [place] [address] Divine Carpenter MD [address] [place] [address] documented as of this encounter Visit Diagnoses Not on filedocumented in this encounter Additional Health Concerns Assessment Noted Time A fall risk assessment has been complete d for the patient 03/03/2021 2:17 PM EDT documented as of this encounter Care Teams Parks And Recreation Manager Relationship Specialty Start Date End Date Michele Wright MD [address] [place] [address] PCP - General 10/11/20 Edgar Szymanski MD 800 [facility] [address] [place] [phone] Radiation Oncologist Radiation Therapy 03/14/20 4 Shun Hurst MD [address] [facility] [address] [place] [address] Surgeon Neurosurgery 02/24/21 documented as of this encounter
--- OUTSIDE RECORDS SUMMARY | 2024-05-03 13:44 | XMS_ITS | Encounter Summary ---
Author Organization [facility] Address [address] [place], [place] [id number] Care Team Providers Care Brine Process Operator Name Role Phone Michele Wright MD Primary Care Provider + [phone] Edgar Szymanski MD Unavailable [phone] Shun Hurst MD Unavailable [phone] Divine Carpenter MD Unavailable [phone] Reason for Visit * Reason Onset Date Comments HCN - Patient Message 03/07/2021 Encounter Details Date Type Department Care Team (Late st Contact Info) Description 03/07/2021 Telephone PFE SCHEDULING [address] [place] [address] Divine Carpenter MD [address] [address] HCN - Patient Message Social [...] encounter Miscellaneous Notes * Telephone Encounter - Erma Valdez - 03/07/2021 2:25 PM EDT Patient Phone Message Reason for Call: Dr Carpenter. Needs to reschedule appt on 03/10/21. Please call. Best contact number and optimal time of day to reach caller: [phone] Note: Please do not reply to this [...] & Respiratory 800 [facility], [address]nd [place] [address] 07/17/2024 1:30 PM EST Appointment [facility] Radiology [address] [place] [address] 07/20/2024 2:50 PM EST Office Visit Pav CC Head, Neck & Respiratory 800 [facility], [address]nd [place] [address] Divine Carpenter MD 800 [facility] [address] [place] [phone] documented as of this encounter Visit Diagnoses Not on filedocumented in this encounter Additional Health Concerns Infection Onset Date Last Indicated Resolved Time COVID-19 Rule-Out 06/12/2021 06/12/2021 06/12/2021 12:25 PM EST COVID 19 (Confirmed) Comment:[facility] has verified patient has a COVID-19 positive result. A chart review has been completed, EPI PUI has been completed and sent to appropriate Health Dept. [facility] Environmental Health Safety Manager: oDyle 06/12/2021 06/12/2021 07/03/2021 5: 23 AM EST Assessment Noted Time A fall risk assessment has been complete d for the patient 03/03/2021 2:17 PM EDT documented as of this encounter Care Teams Brine Process Operator Relationship Specialty Start Date End Date Michele Wright MD [address] [phone] PCP - General 10/11/20 Edgar Szymanski MD [address] [facility] [address] [place] [address] Radiation Oncologist Radiation Therapy 03/14/20 4 Shun Hurst MD [address] [facility] [address] [place] [address] Surgeon Neurosurgery 02/24/21 Divine Carpenter MD [address] [facility] [address] [place] [phone] Medical Oncologist Medical Oncology 06/13/21 documented as of this encounter
--- OUTSIDE RECORDS SUMMARY | 2024-05-03 13:44 | XMS_ITS | Encounter Summary ---
Author Organization [facility] Address [address] [id number] Care Team Providers Care Director Of Hotel Operations Name Role Phone Michele Wright MD Primary Care Provider + [phone] Edgar Szymanski MD Unavailable [phone] Shun Hurst MD Unavailable [phone] Reason for Visit * Episode Based Medications (Routine) - Closed Specialty Diagnoses / Procedures Referred By Ortega t Referred To Contact Diagnoses Cancer of larynx (CMS/HCC) Divine Carpenter MD 800 [facility] [address] [place] [address] Phone: tel: fax: [facility] [address] [place] [address] Phone: tel: Referral ID Status Reason Start Date Expiration Date Visits Re quested Visits Authorized [id number] Closed 02/17/2021 10/25/2021 1 78 Encounter Details Date Type Department Care Team (Latest Contact Info) Description 03/31/2021 10:03 AM EDT - 03/31/2021 11:59 PM EDT Hospital Encounter [facility] Infusion [address] [place] [address] Cancer of larynx (CMS/HCC) (Primary [...] Sign Reading Time Taken Comments Blood Pressure 112/69 03/31/2021 10:46 AM EDT Pulse 54 03/31/2021 10:46 AM EDT Temperature 36.8 ??C (98.3 ??F) 03/31/2021 10:04 AM E DT Respiratory Rate 18 03/31/2021 10:04 AM EDT Oxygen Saturation 97% 03/31/2021 10:04 AM EDT Inhaled Oxygen Concentration - - Weight 98.6 kg (217 lb 6 oz) 03/31/2021 10:04 AM EDT Height 177.8 cm (5' 10 ) 03/31/2021 10:04 AM EDT Body Mass Index 31.19 03/31/2021 10:04 AM EDT documented in this encounter Medications at [...] encounter Miscellaneous Notes * Progress Notes - Amadou Barragan, PharmD - 03/31/2021 11:00 AM EDT Pharmacy Hematology/Oncology Follow-up Treatment Plan [...] Labs Lab Results Component Value Date WBC 2.12 (L) 03/31/2021 HGB 12.0 (L) 03/31/2021 HCT 35.9 (L) 03/31/2021 MCV 89 03/31/2021 PLT 106 (L) 03/31/2021 Lab Results Component Value Date GLUCOSE 115 (H) 03/31/2021 CALCIUM 9.2 03/31/2021 NA 141 03/31/2021 K 3.9 03/31/2021 CO2 29 03/31/2021 CL 102 03/31/2021 BUN 9 03/31/2021 CREATININE 0.79 (L) 03/31/2021 Lab Results Component Value Date ALT 13 03/31/2021 AST 15 03/31/2021 ALKPHOS 93 03/31/2021 BILITOT 0.4 03/31/2021 Lab Results Component Value Date NEUTROABS 1.29 (L) 03/31/2021 Lab Results Component Value Date MG 1.9 03/31/2021 Lab Results Component Value Date TSH 1.75 03/03/2021 No results found for: UTPCR Vitals: Visit Vitals BP (!) 181/83 (BP Location: Left arm, Patient Position: Sitting, BP Cuff Size: Adult) Pulse 58 Temp 36.8 ??C (98.3 ??F) (Oral) Resp 18 Study Patient: No Chemotherapy Regimen Carboplatin AUC 5 IV D1 5-flourouracil 4000 mg/m2 (8750 mg) IV 1 Every 21 days [x] No dose adjustments made Current Treatment Plan History Carboplatin/5FU C1: 03/10/21 C2: 03/31/21 Prior Chemotherapy History Pembrolizumab (Multi-20 study) C1: 03/14 C2: 04/04 C3: 04/25 (transition to 400 mg X5cmbrk) C4: 06/03/20 C5: 07/22/20 C6: 09/02/20 C7: 10/14/20 Carbo/cetux C1: 01/27/21 (only received Day 1) C2: 02/17/21 (had anaphylaxis to cetuximab) Patient will return to clinic in 3 weeks. Will follow-up at that time. Pharmacist Attestation: Amadou Barragan, PharmD 03/31/2021 10:33 AM documented in this encounter Plan of Treatment Upcoming Encounters Date Type Department Care Team (Late st Contact Info) Description 07/17/2024 12:30 PM EST Clinical Support Pav CC Head, Neck & Respiratory 800 [facility], [address]nd [place] [address] 07/17/2024 1:30 PM EST Appointment [facility] G Radiology [address] [place] [address] 07/20/2024 2:50 PM EST Office Visit Pav CC Head, Neck & Respiratory 800 [facility], [address]nd [place] [phone] Divine Carpenter MD 800 [facility] [address] [place] [address] documented as of this encounter Visit Diagnoses Diagnosis 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, unspecified site documented in this encounter Administered Medications Inactive Administered Medications - up to 3 most recent administrations Medication Order MAR Action Action Date Dose Rate Site acetaminophen (Tylenol) tablet 650 mg 650 mg, Oral, Once, 1 dose, On Wed03/31/21 at 1100, RoutineIndications:Cancer of larynx (CMS/HCC) Given 03/31/2021 10:55 AM EDT 650 mg aprepitant (Cinvanti) 130 MG/18ML IV 130 mg 130 mg, Intravenous, Once, 1 dose, On Wed03/31/21 at 1100, RoutineIndications:Cancer of larynx (CMS/HCC) New Bag 03/31/2021 10:59 AM EDT 130 mg 540 mL/hr CARBOplatin (Paraplatin) 750 mg in sodium chloride 0.9 % 250 mL chemo IVPB 750 mg (Target AUC = 5), Intravenous, at 740 mL/hr, Administer over 30 Minutes, Once, Hazardous Drug-Tier 1 Precautions. Dispose in BLACK Hazardous Waste Container. Chemotherapy: refer to A14-065., On Wed03/31/21 at 1230, For 1 dose, NS 250 mLIndications:Cancer of larynx (CMS/HCC) New Bag 03/31/2021 11:44 AM EDT 750 mg 740 mL/hr dexamethasone (Decadron) tablet 12 mg 12 mg, Oral, Once, 1 dose, On Wed03/31/21 at 1100, RoutineIndications:Cancer of larynx (CMS/HCC) Given 03/31/2021 10:55 AM EDT 12 mg diphenhydrAMINE (BENADryl) tablet 50 mg 50 mg, Oral, Once, 1 dose, On Wed03/31/21 at 1100, RoutineIndications:Cancer of larynx (CMS/HCC) Given 03/31/2021 10:55 AM EDT 50 mg fluorouracil (Adrucil) 8,750 mg in sodium [...] Chemotherapy: refer to A14-065., First dose on Wed03/31/21 at 1300, For 1 dose, NS 230 mL (Elastometric Pump)Indications:Cancer of larynx (CMS/HCC) Given 03/31/2021 12:30 PM EDT 8,750 mg 2.4 mL/hr ondansetron ODT (Zofran-ODT) disintegrating tablet 16 mg 16 mg, Oral, Once, 1 dose, On 03/31/21 at 1100, RoutineIndications:Cancer of larynx (CMS/HCC) Given 03/31/2021 10:55 AM EDT 16 mg documented in this encounter Additional Health Concerns Assessment Noted Time A fall risk assessment has been complete d for the patient 03/31/2021 10:03 AM EDT documented as of this encounter Care Teams Director Of Hotel Operations Relationship Specialty Start Date End Date Michele Wright MD [address] [place] [address] PCP - General 10/11/20 Edgar Szymanski MD 800 [facility] [address] [place] [address] Radiation Oncologist Radiation Therapy 03/14/20 4 Shun Hurst MD [address] [facility] [address] [place] [phone] Surgeon Neurosurgery 02/24/21 documented as of this encounter
--- OUTSIDE RECORDS SUMMARY | 2024-05-03 13:44 | XMS_ITS | Encounter Summary ---
Author Organization Healthcare Address [address] [place] [address] Care Team Providers Care Pill Packer Name Role Phone Michele Wright MD Primary Care Provider + [phone] Edgar Szymanski MD Unavailable [phone] Shun Hrust MD Unavailable [phone] Encounter Details Date Type Department Care Team (Latest Contact Info) Description 03/31/2021 Travel Social History Tobacco Use Types Packs/Day [...] Upcoming Encounters Date Type Department Care Team ([facility] st Contact Info) Description 07/17/2024 12:30 PM EST Clinical Support Pav CC Head, Neck & Respiratory 800 [facility], [address]nd [place] [address] 07/17/2024 1:30 PM EST Appointment [facility] G Radiology [address] [place] [phone] 07/20/2024 2:50 PM EST Office Visit Pav CC Head, Neck & Respiratory [address] [place] [address] Divine Carpenter MD [address] [place] [address] documented as of this encounter Visit Diagnoses Not on filedocumented in this encounter Additional Health Concerns Assessment Noted Time A fall risk assessment has been complete d for the patient 03/31/2021 10:03 AM EDT documented as of this encounter Care Teams Pill Packer Relationship Specialty Start Date End Date Michele Wright MD [address] [place] [address] PCP - General 10/11/20 Edgar Szymanski MD 800 [facility] [address] [place] [address] Radiation Oncologist Radiation Therapy 03/14/20 4 Shun Hurst MD [address] [facility] [address] [place] [address] Surgeon Neurosurgery 02/24/21 documented as of this encounter
--- OUTSIDE RECORDS SUMMARY | 2024-05-03 13:44 | XMS_ITS | Encounter Summary ---
Author Organization [facility] Address [address] [phone] Care Team Providers Care Television Cameraman Name Role Phone Michele Wright MD Primary Care Provider + [phone] Edgar Szymanski MD Unavailable [phone] Shun Hurst MD Unavailable [phone] Reason for Visit * Episode Based Medications (Routine) - Closed Specialty Diagnoses / Procedures Referred By Ortega t Referred To Contact Diagnoses Cancer of larynx (CMS/HCC) Divine Carpenter MD 800 [facility] [address] [place] [address] Phone: tel: fax: [facility] [address] [place] [address] Phone: tel: Referral ID Status Reason Start Date Expiration Date Visits Re quested Visits Authorized [id number] Closed 02/17/2021 10/25/2021 1 78 Encounter Details Date Type Department Care Team (Latest Contact Info) Description 03/10/2021 11:00 AM EDT - 03/10/2021 11:59 PM EDT Hospital Encounter [facility] Infusion [address] [place] [address] Cancer of larynx (CMS/HCC) (Primary [...] Sign Reading Time Taken Comments Blood Pressure 151/81 03/10/2021 11:02 AM EDT Pulse 55 03/10/2021 11:02 AM EDT Temperature 36.8 ??C (98.2 ??F) 03/10/2021 1 1:02 AM EDT Respiratory Rate 16 03/10/2021 11:0 2 AM EDT Oxygen Saturation 94% 03/10/2021 11: 02 AM EDT Inhaled Oxygen Concentration - - Weight 98.3 kg (216 lb 11.4 oz) 021 11:02 AM EDT Height 177.8 cm (5' 10 ) 03/10/2021 11: 02 AM EDT Body Mass Index 31.09 03/10/2021 11:02 AM EDT documented in this encounter Medications [...] encounter Miscellaneous Notes * Addendum Note - Jacki Ryder - 03/10/2021 11:00 AM EDTEncounter addended by: Jacki Ryder on: 03/11/2021 12:34 PM Actions taken: Charge Capture section accepted documented in this encounter Plan of Treatment Upcoming Encounters Date Type Department Care Team (Late st Contact Info) Description 07/17/2024 12:30 PM EST Clinical Support Pav CC Head, Neck & Respiratory 800 [facility], [address]nd [place] [address] 07/17/2024 1:30 PM EST Appointment [facility] G Radiology [address] [place] [address] 07/20/2024 2:50 PM EST Office Visit Pav CC Head, Neck & Respiratory 800 [facility], [address] [place] [address] Divine Carpenter MD 800 [facility] [address] Zuniga [facility] [address] [place] [address] documented as of this encounter Visit Diagnoses Diagnosis 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, unspecified site documented in this encounter Administered Medications Inactive Administered Medications - up to 3 most recent administrations Medication Order MAR Action Action Date Dose Rate Site acetaminophen (Tylenol) tablet 650 mg 650 mg, Oral, Once, 1 dose, On Wed03/10/21 at 1145, RoutineIndications:Cancer of larynx (CMS/HCC) Given 03/10/2021 11:43 AM EDT 650 mg aprepitant (Cinvanti) 130 MG/18ML IV 130 mg 130 mg, Intravenous, Once, 1 dose, On Wed03/10/21 at 1145, RoutineIndications:Cancer of larynx (CMS/HCC) New Bag 03/10/2021 11:44 AM EDT 130 mg CARBOplatin (Paraplatin) 750 mg in sodium chloride 0.9 % 250 mL chemo IVPB 750 mg (Target AUC = 5), Intravenous, at 740 mL/hr, Administer over 30 Minutes, Once, Hazardous Drug-Tier 1 Precautions. Dispose in BLACK Hazardous Waste Container. Chemotherapy: refer to A14-065., On Wed03/10/21 at 1415, For 1 dose, NS 250 mLIndications:Cancer of larynx (CMS/HCC) New Bag 03/10/2021 12:17 PM EDT 750 mg 740 mL/hr dexamethasone (Decadron) tablet 12 mg 12 mg, Oral, Once, 1 dose, On Wed03/10/21 at 1145, RoutineIndications:Cancer of larynx (CMS/HCC) Given 03/10/2021 11:44 AM EDT 12 mg diphenhydrAMINE (BENADryl) tablet 50 mg 50 mg, Oral, Once, 1 dose, On Wed03/10/21 at 1145, RoutineIndications:Cancer of larynx (CMS/HCC) Given 03/10/2021 11:44 AM EDT 50 mg fluorouracil (Adrucil) 8,750 [...] Chemotherapy: refer to A14-065., First dose on Wed03/10/21 at 1445, For 1 dose, NS 230 mL (Elastometric Pump)Indications:Cancer of larynx (CMS/HCC) Given 03/10/2021 2:25 PM EDT 8,750 mg 2.4 mL/hr ondansetron ODT (Zofran-ODT) disintegrating tablet 16 mg 16 mg, Oral, Once, 1 dose, On Wed03/10/21 at 1145, RoutineIndications:Cancer of larynx (CMS/HCC) Given 03/10/2021 11:44 AM EDT 16 mg documented in this encounter Additional Health Concerns Assessment Noted Time A fall risk assessment has been complete d for the patient 03/10/2021 11:02 AM EDT documented as of this encounter Care Teams Television Cameraman Relationship Specialty Start Date End Date Michele Wright MD [address] [place] [address] PCP - General 10/11/20 Edgar Szymanski MD [address] [address] Radiation Oncologist Radiation Therapy 03/14/20 4 Shun Hurst MD [address] [address] Surgeon Neurosurgery 02/24/21 documented as of this encounter
--- OUTSIDE RECORDS SUMMARY | 2024-05-03 13:44 | XMS_ITS | Encounter Summary ---
Author Organization Healthcare Address [address] [id number] Care Team Providers Care Job Honer Name Role Phone Michele Wright MD Primary Care Provider + [phone] Edgar Szymanski MD Unavailable [phone] Shun Hurst MD Unavailable [phone] Reason for Visit * Reason Onset Date Comments Distress Screen Follow Up 03/10/2021 Encounter Details Date Type Department Care Team (Late st Contact Info) Description 03/10/2021 Telephone PSYCH ONCOLOGY [address] [place] [address] Jesi Hardy, [facility] [address] [address] Distress Screen Follow Up Social History Tobacco Use Types Packs/Day Years [...] encounter Miscellaneous Notes * Telephone Encounter - Jesi Hardy - 03/10/2021 2:57 PM EDT Visit Type: PsychOncVT: Distress Follow Up (Phone) Time Spent with Patient and/or Caregivers: Less than 15 minutes Services Provided: Education Referrals: None Education: Psych-Onc Services Narrative: CUT OFF WORKER attempted to contact patient in response to distress screen score received at recent clinic visit. Patient did not answer the call, therefore CUT OFF WORKER left a message indicating the natureof the call in response to the screen, as well as providing brief information about Psych-Onc services and the resources and support available. CUT OFF WORKER provided her contact information and will be available ongoing for future needs. JOHNNY Wilson, [facility] Psych-Oncology Services documented in this encounter Plan of Treatment Upcoming Encounters Date Type Department Care Team (Late st Contact Info) Description 07/17/2024 12:30 PM EST Clinical Support Pav CC Head, Neck & Respiratory 800 [facility], 2nd [place] [address] 07/17/2024 1:30 PM EST Appointment PAV G Radiology [address] [place] [address] 07/20/2024 2:50 PM EST Office Visit Pav CC Head, Neck & Respiratory 800 [facility], 2nd [place] [address] Divine Carpenter MD 800 [facility] [address] [place] [address] documented as of this encounter Visit Diagnoses Not on filedocumented in this encounter Additional Health Concerns Assessment Noted Time A fall risk assessment has been complete d for the patient 03/10/2021 11:02 AM EDT documented as of this encounter Care Teams Job Honer Relationship Specialty Start Date End Date Michele Wright MD [address] [place] [address] PCP - General 10/11/20 Edgar Szymanski MD [address] [place] [address] Radiation Oncologist Radiation Therapy 03/14/20 4 Shun Hurst MD [address] [place] [address] Surgeon Neurosurgery 02/24/21 documented as of this encounter
--- OUTSIDE RECORDS SUMMARY | 2024-05-03 13:45 | XMS_ITS | Encounter Summary ---
Author Organization [facility] Address [address] [place] [address] Care Team Providers Care Airborne Electronics Analyst Name Role Phone Michele Wright MD Primary Care Provider + [phone] Edgar Szymanski MD Unavailable [phone] Encounter Details Date Type Department Care Team (Latest Contact Info) Description 01/22/2021 Travel Social History Tobacco Use Types Packs/Day Years Used Date Smoking Tobacco: Former Cigarettes Q uit: 2001 Smokeless Tobacco: Never Alcohol Use Standard Drinks/Week Comments Not Currently 0 (1 standard drink = 0.6 oz pure alcohol) Alcoholic Drinks/day: Quit consuming alcohol in remote past PHQ-2 Answer Date Recorded Patient Health Questionnaire-2 Score 0 12/26/2020 Sex and Gender Information Value Date Recorded [...] have Coronavirus / COVID-19? No / Unsure 01/22/2021 2:10 PM EDT documented as of this encounter Plan of Treatment Upcoming Encounters Date Type Department Care Team (Late st Contact Info) Description 07/17/2024 12:30 PM EST Clinical Support Pav CC Head, Neck & Respiratory [address] , [address] [place] [address] 07/17/2024 1:30 PM EST Appointment PAV G Radiology [address] [place] [address] 07/20/2024 2:50 PM EST Office Visit Pav CC Head, Neck & Respiratory 800 [facility], [address]nd [place] [address] Divine Carpenter MD 800 [facility] [address] [place] [address] documented as of this encounter Visit Diagnoses Not on filedocumented in this encounter Additional Health Concerns Assessment Noted Time A fall risk assessment has been complete d for the patient 12/26/2020 12:01 PM EDT documented as of this encounter Care Teams Airborne Electronics Analyst Relationship Specialty Start Date End Date Michele Wright MD [address] [place] [address] PCP - General 10/11/20 Edgar Szymanski MD 800 [facility] [address] [place] [address] Radiation Oncologist Radiation Therapy 03/14/20 4 documented as of this encounter
--- OUTSIDE RECORDS SUMMARY | 2024-05-03 13:45 | XMS_ITS | Encounter Summary ---
Author Organization Healthcare Address [address] [place] [address] Care Team Providers Care Manager Relationship Name Role Phone Michele Wright MD Primary Care Provider + [phone] Edgar Szymanski MD Unavailable [phone] Shun Hurst MD Unavailable [phone] Reason for Visit * Reason Onset Date Comments HCN - Patient Message 02/26/2021 Encounter Details Date Type Department Care Team ([facility] st Contact Info) Description 02/26/2021 Telephone PFE SCHEDULING [address] [place] [address] Mary Correia MD [address] [phone] HCN - Patient Message Social History Tobacco Use Types Packs/Day Years Used Date Smoking Tobacco: Former Cigarettes Q uit: 2001 Smokeless Tobacco: Never Alcohol Use Standard Drinks/Week Comments Not Currently 0 (1 standard drink = 0.6 oz pure alcohol) Alcoholic Drinks/day: Quit consuming alcohol in remote past PHQ-2 Answer Date Recorded Patient Health Questionnaire-2 Score 0 02/17/2021 Sex and Gender Information Value Date Recorded [...] have Coronavirus / COVID-19? No / Unsure 02/24/2021 9:19 AM EDT documented as of this encounter Miscellaneous Notes * Telephone Encounter - Dru Platt - 02/26/2021 4:20 PM EDT Called pt back several times and couldn't get through. Left a voicemail that I would try to call her tomorrow 02/27. Original call from Amy: Needs to reschedule earlier than the 04/11 apt Unable to swallow, needs a scope done. Is having surgery tomorrow * Telephone Encounter - Erma Valdez - 02/26/2021 2:03 PM EDT Patient Phone Message Reason for Call: Dr Correia. Returning call to Dru to get appt scheduled. Please call. Best contact number and optimal time of day to reach caller: [phone] Note: Please do not reply to this message. Follow-up communication and further actions as a result of this message need to be communicated with the patient directly, if the patient is not active onMyChart. If the patient is active on MyChart, they will receive notification of the communication/outcome via Watcher Enterprisest. documented in this encounter Plan of Treatment Upcoming Encounters Date Type Department Care Team (Late st Contact Info) Description 07/17/2024 12:30 PM EST Clinical Support Pav CC Head, Neck & Respiratory 800 [facility], [address] [place] [address] 07/17/2024 1:30 PM EST Appointment PAV G Radiology [address] [place] [address] 07/20/2024 2:50 PM EST Office Visit Pav CC Head, Neck & Respiratory 800 [facility], [address]nd [place] [address] Divine Carpenter MD 800 [facility] Diane Zuniga [facility] [address] [place] [address] documented as of this encounter Visit Diagnoses Not on filedocumented in this encounter Additional Health Concerns Assessment Noted Time A fall risk assessment has been complete d for the patient 02/17/2021 9:06 AM EDT documented as of this encounter Care Teams Manager Relationship Relationship Specialty Start Date End Date Michele Wright MD [address] [place] [address] PCP - General 10/11/20 Edgar Szymanski MD [address] [place] [address] Radiation Oncologist Radiation Therapy 03/14/20 4 Shun Hurst MD [address] [place] [address] Surgeon Neurosurgery 02/24/21 documented as of this encounter
--- OUTSIDE RECORDS SUMMARY | 2024-05-03 13:45 | XMS_ITS | Encounter Summary ---
Author Organization Healthcare Address [address] [place] [address] Care Team Providers Care Rn Hospice Name Role Phone Michele Wright MD Primary Care Provider + [phone] Edgar Szymanski MD Unavailable [phone] Shun Hurst MD Unavailable [phone] Encounter Details Date Type Department Care Team (Latest Contact Info) Description 02/24/2021 Travel Social History Tobacco Use Types Packs/Day [...] Upcoming Encounters Date Type Department Care Team ([facility] st Contact Info) Description 07/17/2024 12:30 PM EST Clinical Support Pav CC Head, Neck & Respiratory 800 [facility], [address]nd [place] [address] 07/17/2024 1:30 PM EST Appointment PAV G Radiology [address] [place] [address] 07/20/2024 2:50 PM EST Office Visit Pav CC Head, Neck & Respiratory [address] , [address] [place] [address] Divine Carpenter MD [address] [place] [address] documented as of this encounter Visit Diagnoses Not on filedocumented in this encounter Additional Health Concerns Assessment Noted Time A fall risk assessment has been complete d for the patient 02/17/2021 9:06 AM EDT documented as of this encounter Care Teams Rn Hospice Relationship Specialty Start Date End Date Michele Wright MD [address] [place] [address] PCP - General 10/11/20 Edgar Szymanski MD [address] [facility] [address] [place] [address] Radiation Oncologist Radiation Therapy 03/14/20 4 Shun Hurst MD [address] [facility] [address] [place] [address] Surgeon Neurosurgery 02/24/21 documented as of this encounter
--- OUTSIDE RECORDS SUMMARY | 2024-05-03 13:45 | XMS_ITS | Encounter Summary ---
Author Organization [facility] Address [address] [place] [address] Care Team Providers Care Teletray Operator Name Role Phone Michele Wright MD Primary Care Provider + [phone] Edgar Szymanski MD Unavailable [phone] Encounter Details Date Type Department Care Team (Latest Contact Info) Description 01/27/2021 Travel Social History Tobacco Use Types Packs/Day Years Used Date Smoking Tobacco: Former Cigarettes Q uit: 2001 Smokeless Tobacco: Never Alcohol Use Standard Drinks/Week Comments Not Currently 0 (1 standard drink = 0.6 oz pure alcohol) Alcoholic Drinks/day: Quit consuming alcohol in remote past PHQ-2 Answer Date Recorded Patient Health Questionnaire-2 Score 0 01/27/2021 Sex and Gender Information Value Date Recorded [...] have Coronavirus / COVID-19? No / Unsure 01/27/2021 8:54 AM EDT documented as of this encounter Plan of Treatment Upcoming Encounters Date Type Department Care Team (Late st Contact Info) Description 07/17/2024 12:30 PM EST Clinical Support Pav CC Head, Neck & Respiratory [address] , [address] [place] [address] 07/17/2024 1:30 PM EST Appointment PAV G Radiology [address] [place] [address] 07/20/2024 2:50 PM EST Office Visit Pav CC Head, Neck & Respiratory 800 [facility], 2nd [place] [address] Divine Carpenter MD 800 [facility] [address] [place] [address] documented as of this encounter Visit Diagnoses Not on filedocumented in this encounter Additional Health Concerns Assessment Noted Time A fall risk assessment has been complete d for the patient 01/27/2021 9:51 AM EDT documented as of this encounter Care Teams Teletray Operator Relationship Specialty Start Date End Date Michele Wright MD [address] [place] [address] PCP - General 10/11/20 Edgar Szymanski MD 800 [facility] [address] [place] [address] Radiation Oncologist Radiation Therapy 03/14/20 4 documented as of this encounter
--- OUTSIDE RECORDS SUMMARY | 2024-05-03 13:45 | XMS_ITS | Encounter Summary ---
Author Organization Healthcare Address [address] [place] [address] Care Team Providers Care Rn Interventional Name Role Phone Michele Wright MD Primary Care Provider + [phone] Edgar Szymanski MD Unavailable [phone] Shun Hurst MD Unavailable [phone] Divine Carpenter MD Unavailable [phone] Encounter Details Date Type Department Care Team (Late st Contact Info) Description 02/27/2021 Telephone PAV A Interventional Radiology [address] [place] [address] Isabel Nicole RN [facility]-V[facility]ULAR [facility] INTERVENTIONAL RADIOLOGY Social History Tobacco Use Types Packs/Day Years [...] as of this encounter Miscellaneous Notes * Nursing Note - Daija Rahman RN - 03/11/2021 12:20 PM EDT Interventional Radiology Nurse Navigator Note I had the pleasure of speaking with Mr. Barreto family member regarding his port placement 03/06/21.She stated that the port is working well so far. He is scheduled to come on Wednesday 03/14 to have his infusion disconnected and she was curious where she is to go. I have reached out to Dr. Carpenter's team to clarify so I can give them the correct information. Will update the patient/family member when I hear back. Elis POWER, criminal records technician Radiology Nurse Navigator Phone Ext: [phone] documented in this encounter Plan of Treatment Upcoming Encounters Date Type Department Care Team (Late st Contact Info) Description 07/17/2024 12:30 PM EST Clinical Support Pav CC Head, Neck & Respiratory 800 [facility], [address]nd [place] [address] 07/17/2024 1:30 PM EST Appointment PAV G Radiology [address] [place] [address] 07/20/2024 2:50 PM EST Office Visit Pav CC Head, Neck & Respiratory 800 [facility], [address]nd [place] [address] Divine Carpenter MD 800 [facility] [address] [place] [address] documented as of this encounter Visit Diagnoses Not on filedocumented in this encounter Additional Health Concerns Infection Onset Date Last Indicated Resolved Time COVID-19 Rule-Out 06/12/2021 06/12/2021 06/12/2021 12:25 PM EST COVID 19 (Confirmed) Comment:IPA has verified patient has a COVID-19 positive result. A chart review has been completed, EPI PUI has been completed and sent to appropriate Health Dept. IPAC Gluing Machine Operator: Doyle 06/12/2021 06/12/2021 07/03/2021 5: 23 AM EST Assessment Noted Time A fall risk assessment has been complete d for the patient 02/17/2021 9:06 AM EDT documented as of this encounter Care Teams Rn Interventional Relationship Specialty Start Date End Date Michele Wright MD [address] [phone] PCP - General 10/11/20 Edgar Szymanski MD [address] [facility] [address] [place] [address] Radiation Oncologist Radiation Therapy 03/14/20 4 Shun Hurst MD [address] [place] [address] Surgeon Neurosurgery 02/24/21 Divine Carpenter MD [address] Zuniga [facility] [address] [place] [phone] Medical Oncologist Medical Oncology 06/13/21 documented as of this encounter
--- OUTSIDE RECORDS SUMMARY | 2024-05-03 13:45 | XMS_ITS | Encounter Summary ---
Author Organization [facility] Address [address] [phone] Care Team Providers Care Topology Professor Name Role Phone Michele Wright MD Primary Care Provider + [phone] Edgar Szymanski MD Unavailable [phone] Reason for Visit * Episode Based Medications (Routine) - Closed Specialty Diagnoses / Procedures Referred By Contac t Referred To Contact Diagnoses Cancer of larynx (CMS/HCC) Divine Carpenter MD [address] [address] Phone: tel: fax: [facility] [address] [place] [address] Phone: tel: Referral ID Status Reason Start Date Expiration Date Visits Re quested Visits Authorized [id number] Closed 12/26/2020 07/07/2021 1 51 Encounter Details Date Type Department Care Team (Latest Contact Info) Description 02/17/2021 9:49 AM EDT - 02/17/2021 11:59 PM EDT Hospital Encounter PAV H Infusion [address] [place] [address] Cancer of larynx (CMS/HCC) (Primary [...] Sign Reading Time Taken Comments Blood Pressure 123/84 02/17/2021 1:14 PM EDT Pulse 57 02/17/2021 1:14 PM EDT Temperature 36.8 ??C (98.2 ??F) 02/17/2021 9:55 AM ED T Respiratory Rate 16 02/17/2021 9:55 AM EDT Oxygen Saturation 94% 02/17/2021 9:55 AM EDT Inhaled Oxygen Concentration - - Weight 102 kg (225 lb 8.5 oz) 02/17/2021 9:55 AM EDT Height 177.8 cm (5' 10 ) 02/17/2021 9:55 AM EDT Body Mass Index 32.36 02/17/2021 9:55 AM EDT documented in this encounter Medications [...] time each day. 30 tablet 01/27/2021 04/21/2021 metoprolol tartrate (Lopressor) 50 MG tablet [...] encounter Miscellaneous Notes * Addendum Note - Diann Sherman NP - 02/17/2021 11:00 AM EDTEncounter addended by: Diann Sherman NP on: 02/17/2021 2:58 PM Actions taken: Level of Service modified, Clinical Note Signed * Addendum Note - Marta Laura RN - 02/17/2021 11:00 AM EDTEncounter addended by: Marta Laura RN on: 02/17/2021 3:30 PM Actions taken: LDA properties accepted, Flowsheet accepted * Progress Notes - Diann Sherman NP - 02/17/2021 11:00 AM EDT I saw pt in Infusion Room for Cetuximab reaction. Pt here for C2D1 carbo+cetuximab today. RN reports approx 9 minutes into Cetuximab infusion pt became extremely flush, c/o SOA, abd pain , hypertensive to 203/77, desat to 80's (pt trached). Hypersensitivity meds given and pt rebounded. I discussed w ith Dr. Carpenter, will discontinue Cetuximab and proceed with Carboplatin today. Pt agreeable to receive carboplatin. Discontinued further Cetuximab scheduled appts. Dr. Carpenter stated she will contact pt tieh new F/U instructions, including having PAC placed. Pt verbalized understanding new POC. - Instructions were given regarding actions should any new symptoms develop and persist including, but not limited to, fever (temp > 100.5 deg F and sustained for at least 1 hour without the use of antipyretics such as acetaminophen, ASA or ibuprofen), chills, bleeding, nausea, diarrhea, emesis,headache, extremity swelling, change in mental status or weight, increase in pain or any new sites o f pain, rash. General: Sitting/resting comfortably in chair, NAD, slightly sedated from IV benadryl, slightly flushed HEENT: NCAT, PERRLA/EOMI, anicteric; no oral lesions, midline trach/capped on RA Neck: Supple, no lymphadenopathy or JVD Heart: bradycardic (pt states baseline) no MGR Lungs: CTAB; no rales, rhonchi or wheezes Abdomen: Soft, NTND, + BS Extremities: No edema, distal pulses intact Musculoskeletal: No focal tenderness or deformity Skin: No visible rashes or lesions Neuro: Grossly nonfocal; no localizing deficits of strength, sensation, or mentation Psychiatric: Appropriate to situation 30 minutes was spent on this encounter; including preparing to see the patient, which involved review/interpretation of diagnostics and reports; obtaining and/or reviewing separately obtained history; performing appropriate physical exam; ordering/scheduling medications, tests or procedures; communicating findings and counseling/educating the patient, family and/or caregiver; documentation in EMR; and care coordination. documented in this encounter Plan of Treatment Upcoming Encounters Date Type Department Care Team (Late st Contact Info) Description 07/17/2024 12:30 PM EST Clinical Support Pav CC Head, Neck & Respiratory 800 [facility], 2nd [place] [address] 07/17/2024 1:30 PM EST Appointment PAV G Radiology [address] [place] [address] 07/20/2024 2:50 PM EST Office Visit Pav CC Head, Neck & Respiratory 800 [facility], [address]nd [place] [address] Divine Carpenter MD 800 [facility] [address] [place] [address] documented as of this encounter Visit Diagnoses Diagnosis 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, unspecified site documented in this encounter Administered Medications Inactive Administered Medications - up to 3 most recent administrations Medication Order MAR Action Action Date Dose Rate Site acetaminophen (Tylenol) tablet 650 mg 650 mg, Oral, Once, 1 dose, On Wed02/17/21 at 1130, RoutineIndications:Cancer of larynx (CMS/HCC) Given 02/17/2021 11:11 AM EDT 650 mg aprepitant (Cinvanti) 130 MG/18ML IV 130 mg 130 mg, Intravenous, Once, 1 dose, On Wed02/17/21 at 1130, RoutineIndications:Cancer of larynx (CMS/HCC) New Bag 02/17/2021 11:29 AM EDT 130 mg CARBOplatin (Paraplatin) 750 mg in sodium chloride 0.9 % 250 mL chemo IVPB 750 mg (Target AUC = 5), Intravenous, at 740 mL/hr, Administer over 30 Minutes, Once, Hazardous Drug-Tier 1 Precautions. Dispose in BLACK Hazardous Waste Container. Chemotherapy: refer to [id number]., On Wed02/17/21 at 1300, For 1 dose, NS 250 mLIndications:Cancer of larynx (CMS/HCC) New Bag 02/17/2021 1:14 PM EDT 750 mg 740 mL/hr cetuximab (Erbitux) 558 mg chemo IVPB 558 mg (rounded from 557.5 mg = 250 mg/m2 ? 2.23 m2 Treatment Plan BSA from Recorded weight), Intravenous, at 299 mL/hr, Administer over 1 Hours, Once, Nurse to attach 0.22 micron filter on line Maximum rate of infusion: 10 mg per minute Do not shake, On Wed02/17/21 at 1200, For 1 dose, UndilutedIndications:Cancer of larynx (CMS/HCC) New Bag 02/17/2021 11:59 AM EDT 558 mg 299 mL/hr dexamethasone (Decadron) tablet 12 mg 12 mg, Oral, Once, 1 dose, On Wed02/17/21 at 1130, RoutineIndications:Cancer of larynx (CMS/HCC) Given 02/17/2021 11:12 AM EDT 12 mg diphenhydrAMINE (BENADryl) injection 50 mg 50 mg, Intravenous, As needed, Starting on Wed02/17/21 at 1224, Until Wed02/18/21 at 0238, STAT, Grade 2, 3, or 4 Infusion ReactionIndications:Cancer of larynx (CMS/HCC) Given 02/17/2021 12:10 PM EDT 50 mg diphenhydrAMINE (BENADryl) tablet 50 mg 50 mg, Oral, Once, 1 dose, On Wed02/17/21 at 1130, RoutineIndications:Cancer of larynx (CMS/HCC) Given 02/17/2021 11:12 AM EDT 50 mg famotidine (Pepcid) injection 20 mg 20 mg, Intravenous, As needed, Starting on Wed02/17/21 at 1224, Until Wed02/18/21 at 0238, STAT, Grade 2, 3, or 4 Infusion ReactionIndications:Cancer of larynx (CMS/HCC) Given 02/17/2021 12:11 PM EDT 20 mg hydrocortisone sod succinate (PF) (Solu-CORTEF) injection 100 mg 100 mg, Intravenous, As needed, Starting on Wed02/17/21 at 1224, Until Wed02/18/21 at 0238, STAT, Grade 2, 3, or 4 Infusion ReactionIndications:Cancer of larynx (CMS/HCC) Given 02/17/2021 12:09 PM EDT 100 mg ondansetron ODT (Zofran-ODT) disintegrating tablet 16 mg 16 mg, Oral, Once, 1 dose, On Wed02/17/21 at 1145, Routine Given 02/17/2021 11:19 AM EDT 16 mg documented in this encounter Additional Health Concerns Assessment Noted Time A fall risk assessment has been complete d for the patient 02/17/2021 9:06 AM EDT documented as of this encounter Care Teams Topology Professor Relationship Specialty Start Date End Date Michele Wright MD [address] [place] [address] PCP - General 10/11/20 Edgar Szymanski MD [address] [address] Radiation Oncologist Radiation Therapy 03/14/20 4 documented as of this encounter
--- OUTSIDE RECORDS SUMMARY | 2024-05-03 13:45 | XMS_ITS | Encounter Summary ---
Author Organization [facility] Address [address] [place] [address] Care Team Providers Care Guide Domestic Tour Name Role Phone Michele Wright MD Primary Care Provider + [phone] Edgar Szymanski MD Unavailable [phone] Shun Hurst MD Unavailable [phone] Reason for Referral * Imaging (Routine) - Closed Specialty Diagnoses / Procedures Referred By Ortega ahrden Referred To Contact Radiology Diagnoses Cancer of larynx ([facility]/HCC) Procedures [place] Modified Barium Swallow Lubna Correia MD Referral ID Status Reason Start Date Expiration Date V isits Requested Visits Authorized [id number] Closed Perform Procedure 03/03/2021 09/02/2022 1 1 * Consultation (Routine) - Closed Specialty Diagnoses / Procedures Referred By Ortega harden Referred To Contact Otolaryngology Diagnoses Cancer of larynx ([facility]/HCC) Lubna Correia MD Referral ID Status Reason Start Date Expiration Date V isits Requested Visits Authorized [id number] Closed Specialty Services Required 03/03/2021 09/02/2022 1 1 Scheduling Instructions ref to Dr. Hernandez for esophageal stenosis Reason for Visit * Reason Comments Follow-up Encounter Details Date Type Department Care Team ([facility] st Contact Info) Description 03/03/2021 4:35 PM EDT Office Visit Pav CC Head, Neck & Respiratory [address] [facility], 2nd [place] [address] Lubna Correia MD [address] [place] [address] Cancer of larynx (CMS/HCC) (Primary Dx) Social [...] Sign Reading Time Taken Comments Blood Pressure 159/83 03/03/2021 2:16 PM EDT Pulse 52 03/03/2021 2:16 PM EDT Temperature 36.7 ??C (98.1 ??F) 03/03/2021 2:16 PM ED T Respiratory Rate 16 03/03/2021 2:16 PM EDT Oxygen Saturation 97% 03/03/2021 2:16 PM EDT Inhaled Oxygen Concentration - - Weight 99.5 kg (219 lb 5.7 oz) 03/03/2021 2:16 P M EDT Height - - Body Mass Index 31.47 02/17/2021 9:55 AM EDT documented in this encounter Miscellaneous Notes * Progress Notes - Bry Jean PA - 03/03/2021 4:35 PM EDT Department of Otorhinolaryngology / Head and Neck Surgery Division of Surgical Oncology and Microvascular Reconstruction ?? DIAGNOSIS: 1. Squamous cell carcinoma, [id number] 2. [id number] 3. [id number] SCCa to lung TREATMENT/Date: 03/22/2018: [...] Mr. Barreto returns today for continued follow-up. he states that he has recently been experiencingincreased difficulty with swallowing. The patient notes that he can only consumed well blended consistencies at this time. The patient is also having to use more effort when attempting to speak through his TEP. ?? TOBACCO STATUS: No longer smoking FEEDING TUBE STATUS: No feeding tube at this time ?? GENERAL: Patient is awake, non-toxic appearing, and [...] midline NECK: Dense lymphedema. Slightly better than previous NEUROLOGICAL: FN intact, left hypoglossal weakness ABDOMEN: Obese, soft, nontender, nondistended ? ASSESSMENT AND PLAN: 1. 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 2. Esogeal stenosis ? 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 physical examination does not demonstrate any concerning findingswithin the head neck. The patient is having some worsening in his ability to swallow. We will perform modified barium swallow to further assess his dysphagia. The patient will have routine labs drawntoday. The patient will be given a prescription for mometasone cream to be applied to his TEP. The patient had his TEP exchange today. He had a partially buried TEP on the right aspect of his puncture. The patient will also be referred back to see Dr. Hernandez for potential esophageal dilation. The patient will follow in our clinic following his upcoming appointments. He will contact us sooner if hehas any complications or concerns. Cosigned by Lubna Correia MD at 03/10/2021 1:48 PM EDT Associated attestation - Lubna Correia MD - 03/10/2021 1:48 PM EDT I saw the patient with the JIM and modified the plan. I discussed the case with the JIM and agreewith the findings and plan as documented in the final note. documented in this encounter Plan of Treatment Upcoming Encounters Date Type Department Care Team (Late st Contact Info) Description 07/17/2024 12:30 PM EST Clinical Support Pav CC Head, Neck & Respiratory [address] [facility] [place] [address] 07/17/2024 1:30 PM EST Appointment PAV G Radiology [address] [place] [address] 07/20/2024 2:50 PM EST Office Visit Pav CC Head, Neck & Respiratory [address] [facility], [address] [place] [address] Divine Carpenter MD [address] [facility] [address] [place] [address] Scheduled Referrals Name Type Priority Associated Diagnoses Order Schedule Ambulatory referral to ENT Outpatient Referral Routine Cancer of larynx (CMS/HCC) Expected: 03/03/2021 (Approximate), Expires: 09/01/2021 documented as of this encounter Procedures Procedure Name Priority Date/Time Associated Diagnosis Comments TSH Routine 03/03/2021 4:13 PM EDT PREALBUMIN, PLASMA Routine 03/03/2021 4: 13 PM EDT COMPREHENSIVE METABOLIC PANEL, PLASMA Routine 03/03/2021 4:13 PM EDT documented in this encounter Results * FL [...] FL MODIFIED BARIUM SWALLOW ordered by LUBNA CORREIA, [id number] CLINICAL INDICATION: dysphagia TECHNIQUE: Modified barium swallow [...] FL MODIFIED BARIUM SWALLOW ordered by LUBNA CORREIA,[id number] CLINICAL INDICATION: dysphagia TECHNIQUE: Modified barium swallow [...] by Jeniffer Nichols on 04/07/2021 2:37 PM Result Shamika Correia MD IMG FLUOROSCOPY PROCEDURES Final Result * (ABNORMAL) Prealbumin (03/03/2021 4:13 PM EDT) Prealbumin, Plasma 17.9(L) 20.0 - 41.0 mg/dL 03/03/2021 4:57 PM EDT [facility] Blood Venous blood specimen / Unknown Venipuncture / Unknown 03/03/2021 4:13 PM EDT 03/03/2021 4:22 PM EDT us Lubna Correia MD LAB BLOOD ORDERABLES Final Result Performing Organization Address City[facility] Co de Phone Number [facility] [address] [place] [address] * TSH (03/03/2021 4:13 PM EDT) Thyroid Stimulating Hormone, Plasma 1.75 0.40 - 4.20 uIU/mL 03/03/2021 4:57 PM EDT [facility] Blood Venous blood specimen / Unknown Venipuncture / Unknown 03/03/2021 4:13 PM EDT 03/03/2021 4:22 PM EDT Result hSamika Correia MD LAB BLOOD ORDERABLES Final Result Performing Organization Address [facility] Co de Phone Number [facility] [address] [place] [address] * (ABNORMAL) Comprehensive metabolic panel (03/03/2021 4:13 PM EDT) [facility] Glucose, Plasma 91 74 - 99 mg/dL 03/03/2021 4:57 PM EDT [facility] BUN, Plasma 10 7 - 21 mg/dL 03/03/2021 4:57 PM EDT [facility] Creatinine, Plasma 0.57(L) 0.80 - 1.30 mg/dL 03/03/2021 4:57 PM EDT [facility] BUN/Creatinine Ratio 18 03/03/2021 4:57 PM EDT [facility] Sodium, Plasma 139 136 - 145 mmol/L 03/03/2021 4:57 PM EDT [facility] Potassium, Plasma 4.0 3.7 - 4.8 mmol/L 03/03/2021 4:57 PM EDT [facility] Chloride, Plasma 101 97 - 107 mmol/L 03/03/2021 4:57 PM EDT [facility] CO2, Plasma 29 22 - 29 mmol/L 03/03/2021 4:57 PM EDT [facility] Anion Gap 9 6 - 16 mmol/L 03/03/2021 4:57 PM EDT [facility] Total Calcium, Plasma 9.2 8.9 - 10.2 mg/dL 03/03/2021 4:57 PM EDT [facility] Total Protein 7.0 6.3 - 7.9 g/dL 03/03/2021 4:57 PM EDT [facility] Albumin, Plasma 4.1 3.5 - 5.2 g/dL 03/03/2021 4:57 PM EDT [facility] AST, Plasma 15 12 - 40 U/L 03/03/2021 4:57 PM EDT [facility] ALT, Plasma 16 11 - 41 U/L 03/03/2021 4:57 PM EDT [facility] Alkaline Phosphatase, Plasma 78 40 - 115 U/L 03/03/2021 4:57 PM EDT [facility] Total Bilirubin, Plasma 0.5 0.2 - 1.1 mg/dL 03/03/2021 4:57 PM EDT [facility] eGFR >60 >60 mL/min/1.7 3m*2 03/03/2021 4:57 PM EDT [facility] Comment:eGFR = estimated GFR ; eGFR units = mL/min/1.73 sq meters Chronic Kidney Disease is considered if eGFR <60 mL/min/1.73 sq meters Kidney failure is considered if eGFR is <15 mL/min/1.73 sq meters. eGFR assumes steady state plasma creatinine concentration; not applicable if renal function is rapidly changing or patient is on dialysis. eGFR, if AFR/AM >60 >60 mL/min/1.7 3m*2 03/03/2021 4:57 PM EDT [facility] Comment:eGFR = estimated GFR [...] blood specimen / Unknown Venipuncture / Unknown 03/03/2021 4:13 PM EDT 03/03/2021 4:22 PM EDT Lubna Correia MD LAB BLOOD ORDERABLES Final Result [facility] [address] [place] [address] documented in this encounter Visit Diagnoses Diagnosis 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, unspecified site Dysphagia, unspecified type- Primary 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, unspecified site documented in this encounter Additional Health Concerns Assessment Noted Time A fall risk assessment has been complete d for the patient 03/03/2021 2:17 PM EDT documented as of this encounter Care Teams Guide Domestic Tour Relationship Specialty Start Date End Date Michele Wright MD [address] [place] [address] PCP - General 10/11/20 Edgar Szymanski MD [address] [facility] [address] [place] [address] Radiation Oncologist Radiation Therapy 03/14/20 4 Shun Hurst MD [address] [place] [address] Surgeon Neurosurgery 02/24/21 documented as of this encounter
--- OUTSIDE RECORDS SUMMARY | 2024-05-03 13:45 | XMS_ITS | Encounter Summary ---
Author Organization Healthcare Address [address] [id number] Care Team Providers Care Sql Manager Name Role Phone Michele Wright MD Primary Care Provider + [phone] Edgar Szymanski MD Unavailable [phone] Encounter Details Date Type Department Care Team ([facility] Contact Info) Description 02/21/2021 Telephone PAV A Interventional Radiology [address] [place] [address] Faby Yung Social History Tobacco Use Types Packs/Day Years [...] have Coronavirus / COVID-19? No / Unsure 02/17/2021 8:56 AM EDT documented as of this encounter Plan of Treatment Upcoming Encounters Date Type Department Care Team ([facility] Contact Info) Description 07/17/2024 12:30 PM EST Clinical Support Pav CC Head, Neck & Respiratory [address] [facility], [address]nd [place] [address] 07/17/2024 1:30 PM EST Appointment PAV G Radiology [address] [place] [address] 07/20/2024 2:50 PM EST Office Visit Pav CC Head, Neck & Respiratory [address] [facility], [address] [place] [address] Divine Carpenter MD [address] [facility] [address] [place] [address] documented as of this encounter Visit Diagnoses Not on filedocumented in this encounter Additional Health Concerns Assessment Noted Time A fall risk assessment has been complete d for the patient 02/17/2021 9:06 AM EDT documented as of this encounter Care Teams Sql Manager Relationship Specialty Start Date End Date Michele Wright MD [address] [place] [address] PCP - General 10/11/20 Edgar Szymanski MD [address] [facility] [address] [place] [address] Radiation Oncologist Radiation Therapy 03/14/20 4 documented as of this encounter
--- OUTSIDE RECORDS SUMMARY | 2024-05-03 13:45 | XMS_ITS | Encounter Summary ---
Author Organization [facility] Address [address] [place] [address] Care Team Providers Care Dining Room Supervisor Name Role Phone Michele Wright MD Primary Care Provider + [phone] Edgar Szymanski MD Unavailable [phone] Encounter Details Date Type Department Care Team (Latest Contact Info) Description 02/17/2021 Travel Social History Tobacco Use Types Packs/Day [...] & Respiratory [address] [place] [address] 07/17/2024 1:30 PM EST Appointment PAV G Radiology [address] [place] [address] 07/20/2024 2:50 PM EST Office Visit Pav CC Head, Neck & Respiratory [address] [facility], [address]nd [place] [address] Divine Carpenter MD [address] [facility] [address] [place] [address] documented as of this encounter Visit Diagnoses Not on filedocumented in this encounter Additional Health Concerns Assessment Noted Time A fall risk assessment has been complete d for the patient 02/17/2021 9:06 AM EDT documented as of this encounter Care Teams Dining Room Supervisor Relationship Specialty Start Date End Date Michele Wright MD [address] [place] [address] PCP - General 10/11/20 Edgar Szymanski MD [address] [facility] [address] [place] [address] Radiation Oncologist Radiation Therapy 03/14/20 4 documented as of this encounter
--- OUTSIDE RECORDS SUMMARY | 2024-05-03 13:45 | XMS_ITS | Encounter Summary ---
Author Organization [facility] Address [address] [place] [address] Care Team Providers Care Consulting Sme Name Role Phone Michele Wright MD Primary Care Provider + [phone] Edgar Szymanski MD Unavailable [phone] Encounter Details Date Type Department Care Team (Latest Contact Info) Description 01/07/2021 Travel Social History Tobacco Use Types Packs/Day [...] have Coronavirus / COVID-19? No / Unsure 01/07/2021 1:44 PM EDT documented as of this encounter Plan of Treatment Upcoming Encounters Date Type Department Care Team (Late st Contact Info) Description 07/17/2024 12:30 PM EST Clinical Support Pav CC Head, Neck & Respiratory [address] [place] [address] 07/17/2024 1:30 PM EST Appointment PAV G Radiology [address] [place] [address] 07/20/2024 2:50 PM EST Office Visit Pav CC Head, Neck & Respiratory [address] [facility], [address] [place] [address] Divine Carpenter MD [address] [facility] [address] [place] [address] documented as of this encounter Visit Diagnoses Not on filedocumented in this encounter Additional Health Concerns Assessment Noted Time A fall risk assessment has been complete d for the patient 12/26/2020 12:01 PM EDT documented as of this encounter Care Teams Consulting Sme Relationship Specialty Start Date End Date Michele Wright MD [address] [place] [address] PCP - General 10/11/20 Edgar Szymanski MD [address] [facility] [address] [place] [address] Radiation Oncologist Radiation Therapy 03/14/20 4 documented as of this encounter
--- OUTSIDE RECORDS SUMMARY | 2024-05-03 13:45 | XMS_ITS | Encounter Summary ---
Author Organization [facility] Address [address] [place] [address] Care Team Providers Care Guidance Secretary Name Role Phone Michele Wright MD Primary Care Provider [phone] Edgar Szymanski MD Unavailable [phone] Shun Hurst MD Unavailable [phone] Reason for Referral * Imaging (Routine) - Closed Specialty Diagnoses / Procedures Referred By Contac t Referred To Contact Radiology Diagnoses Cancer of larynx (CMS/HCC) Procedures CT Soft Tissue Neck w IV Contrast Bailey Ellis MD [address] [address] Phone: tel: fax: Referral ID Status Reason Start Date Expiration Date Visits Re quested Visits Authorized [id number] Closed 02/16/2021 08/15/2021 1 1 * Imaging (Routine) - Closed Specialty Diagnoses / Procedures Referred By Contac t Referred To Contact Radiology Diagnoses Cancer of larynx (CMS/HCC) Procedures CT Chest w IV Contrast Bailey Ellis MD [address] [address] Phone: tel: fax: Referral ID Status Reason Start Date Expiration Date Visits Re quested Visits Authorized [id number] Closed 02/16/2021 08/15/2021 1 1 Reason for Visit * Imaging (Routine) - Closed Specialty Diagnoses / Procedures Referred By Ortega t Referred To Contact Radiology Diagnoses Cancer of larynx (CMS/HCC) Procedures CT Soft Tissue Neck w IV Contrast Bailey Ellis MD [address] [place] [address] Phone: tel: fax: Referral ID Status Reason Start Date Expiration Date Visits Re quested Visits Authorized [id number] Closed 02/16/2021 08/15/2021 1 1 Encounter Details Date Type Department Care Team (Latest Contact Info) Description 03/03/2021 5:56 PM EDT - 03/03/2021 11:59 PM EDT Hospital Encounter [facility] [address] [place] [address] Cancer of larynx (CMS/HCC) Discharge Disposition: Home [...] AM EDT documented as of this encounter Medications [...] 02/17/2021 4 documented as of this encounter Plan of Treatment Upcoming Encounters Date Type Department Care Team (Late st Contact Info) Description 07/17/2024 12:30 PM EST Clinical Support [facility] [address] [facility], [address] [place] [address] 07/17/2024 1:30 PM EST Appointment [facility] [address] [place] [address] 07/20/2024 2:50 PM EST Office Visit [facility] [address] [facility], [address] [place] [address] Bailey Ellis MD [address] [facility] [address] [place] [address] documented as of this encounter Procedures Procedure Name Priority Date/Time Associated Diagnosis Comments CT CHEST W IV CONTRAST Routine 03/03/2021 7:01 PM EDT Cancer of larynx (CMS/HCC) CT SOFT TISSUE NECK W IV CONTRAST Routine 03/03/2021 7:01 PM EDT Cancer of larynx (CMS/HCC) documented in this encounter Results * CT Soft Tissue Neck w IV Contrast (03/03/2021 7:01 PM EDT) Anatomical Region Laterality Modality Neck Computed Tomogra phy Impressions 03/04/2021 1:26 PM EDT Extensive postsurgical and radiation effects as detailed above. No tumor recurrence or cervical adenopathy. CRITICAL RESULT: No. COMMUNICATION: Per this written report. Signed by Mya Rodriguez on ??03/04/2021 1:26 PM Narrative 03/04/2021 1:26 PM EDT Exam/Procedure: CT SOFT TISSUE NECK W IV CONTRAST ordered by BAILEY ELLIS, [id number] CLINICAL INDICATION: Head and neck cancer status post chemoradiation therapy TECHNIQUE: Helical images were obtained through the neck, and reconstructed in the axial plane on bone and soft tissue algorithm at multiple slice thicknesses. Coronal and sagittal reformatted images were created. 100 mL of Omnipaque 300 were administered intravenously. Total DLP (Dose-Length Product): 1251 mGy.cm. Please note: The reported value represents the total of one or more individual components during the CT acquisition on this date and at this time, and as such, the same value may appear in more than one CT report depending on the interpreting/reporting physicians. COMPARISON: Neck CT 11/21/2020 FINDINGS: Diagnostic Quality: Adequate. Soft Tissues: Extensive [...] findings. Procedure Note Mya Rodriguez MD - 03/04/2021 Exam/Procedure: CT SOFT TISSUE NECK W IV CONTRAST ordered by BAILEY MOREIRA, [id number] CLINICAL INDICATION: Head and neck cancer status post chemoradiation therapy TECHNIQUE: Helical images were obtained through the neck, and reconstructed in theaxial plane on bone and soft tissue algorithm at multiple slicethicknesses. Coronal and sagittal reformatted images were created. 100 mLof Omnipaque 300 were administered intravenously. Total DLP (Dose-Length Product): 1251 mGy.cm. Please note: The reportedvalue represents the total of one or more individual components during theCT acquisition on this date and at this time, and as such, the same valuemay appear in more than one CT report depending on theinterpreting/reporting physicians. COMPARISON: Neck CT 11/21/2020 FINDINGS: Diagnostic Quality: Adequate. Soft Tissues: Extensive [...] COMMUNICATION: Per this written report. Signed by Mya Rodriguez on 03/04/2021 1:26 PM us Bailey Ellis MD IMG CT PROCEDURES Final Resu lt * CT Chest w IV Contrast (03/03/2021 7:01 PM EDT) Anatomical Region Laterality Modality Chest Computed Tomogra phy Impressions 03/04/2021 9:32 AM EDT No definite evidence of thoracic progression. New tiny clustered left lower lobe nodules are most likely infectious or inflammatory. Attention to these on short interval follow-up recommended. CRITICAL RESULT: No. COMMUNICATION: Per this written report. Signed by Louie Liu on ??03/04/2021 9:32 AM Narrative 03/04/2021 9:32 AM EDT Exam/Procedure: CT CHEST W IV CONTRAST ordered by BAILEY ELLIS, [id number] CLINICAL INDICATION: Head and neck cancer. TECHNIQUE: Multiple CT helical images were obtained from thoracic inlet through upper abdomen with administration of IV contrast. 100 ??mL of Omnipaque-300 were administered intravenously. Total DLP (Dose-Length Product): 1251.31 mGy.cm. Please note: The reported value represents the total of one or more individual components during the CT acquisition on this date and at this time, and as such, the same value may appear in more than one CT report depending on the interpreting/reporting physicians. COMPARISON: November 21, 2020 FINDINGS: Mediastinum and Pleura: Partially visualized laryngectomy. No discretely enlarged mediastinal or hilar lymph nodes. No pleural effusion. Moderate coronary artery calcification. Lungs: Some areas of peripheral multifocal scarring noted. There are several stable pulmonary nodules as well as a few clustered new left lower lobe nodules measuring up to 3 mm (series 3 image 67 and 70). Upper Abdomen: No suspicious lesions in the partially visualized upper abdomen. Musculoskeletal: No suspicious lytic or sclerotic lesion. Previously noted right chest wall lesion is no longer identified. Right chest wall collaterals again noted. Procedure Note Louie Liu MD - 03/04/2021 Exam/Procedure: CT CHEST W IV CONTRAST ordered by BAILEY ELLIS,[id number] CLINICAL INDICATION: Head and neck cancer. TECHNIQUE: Multiple CT helical images were obtained from thoracic inlet through upperabdomen with administration of IV contrast. 100 mL of Omnipaque-300 wereadministered intravenously. Total DLP (Dose-Length Product): 1251.31 mGy.cm. Please note: The reportedvalue represents the total of one or more individual components during theCT acquisition on this date and at this time, and as such, the same valuemay appear in more than one CT report depending on theinterpreting/reporting physicians. COMPARISON: November 21, 2020 FINDINGS: Mediastinum and Pleura: Partially visualized laryngectomy. No discretelyenlarged mediastinal or hilar lymph nodes. No pleural effusion. Moderatecoronary artery calcification. Lungs: Some areas of peripheral multifocal scarring noted. There areseveral stable pulmonary nodules as well as a few clustered new left lowerlobe nodules measuring up to 3 mm (series 3 image 67 and 70). Upper Abdomen: No suspicious lesions in the partially visualized upperabdomen. Musculoskeletal: No suspicious lytic or sclerotic lesion. Previously notedright chest wall lesion is no longer identified. Right chest wallcollaterals again noted. IMPRESSION: No definite evidence of thoracic progression. New tiny clustered left lower lobe nodules are most likely infectious orinflammatory. Attention to these on short interval follow-uprecommended. CRITICAL RESULT: No. COMMUNICATION: Per this written report. Signed by Louie Liu on 03/04/2021 9:32 AM us Bailey Ellis MD IMG CT [...] Once in imaging, 1 dose, Starting on Wed03/03/21 at 1801, Until Wed03/03/21 at 1856, Routine, Imaging Protocol Orders Given 03/03/2021 6:56 PM EDT 100 mL documented in this encounter Additional Health Concerns Assessment Noted Time A fall risk assessment has been complete d for the patient 03/03/2021 2:17 PM EDT documented as of this encounter Care Teams Guidance Secretary Relationship Specialty Start Date End Date Michele Wright MD [address] [place] [address] PCP - General 10/11/20 Edgar Szymanski MD [address] [facility] [address] [place] [address] Radiation Oncologist Radiation Therapy 03/14/20 4 Shun Hurst MD [address] [place] [address] Surgeon Neurosurgery 02/24/21 documented as of this encounter
--- OUTSIDE RECORDS SUMMARY | 2024-05-03 13:45 | XMS_ITS | Encounter Summary ---
Author Organization [facility] Address [address] [place] [id number] Care Team Providers Care Transformation Lead Name Role Phone Michele Wright MD Primary Care Provider [phone] Edgar Szymanski MD Unavailable [phone] Encounter Details Date Type Department Care Team ([facility] st Contact Info) Description 02/07/2021 Orders Only [facility] [address] [facility], [address] [place] [address] Amadou Barragan, PharmD [address] [facility] [address] [place] [address] Cancer of larynx (CMS/HCC) (Primary Dx) Social [...] [facility] [address] [facility], [address] [place] [address] 07/17/2024 1:30 PM EST Appointment [facility] [address] [place] [address] 07/20/2024 2:50 PM EST Office Visit [facility] [address] [facility], [address] [place] [address] Divine Carpenter MD [address] [facility] [address] [place] [address] documented as of this encounter Visit Diagnoses Diagnosis 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, unspecified site documented in this encounter Additional Health Concerns Assessment Noted Time A fall risk assessment has been complete d for the patient 01/27/2021 9:51 AM EDT documented as of this encounter Care Teams Transformation Lead Relationship Specialty Start Date End Date Michele Wright MD [address] [place] [address] PCP - General 10/11/20 Edgar Szymanski MD [address] [facility] [address] [place] [id number] Radiation Oncologist Radiation Therapy 03/14/20 4 documented as of this encounter
--- OUTSIDE RECORDS SUMMARY | 2024-05-03 13:45 | XMS_ITS | Encounter Summary ---
Author Organization [facility] Address [address] [place], [place] [address] Care Team Providers Care Bait Packer Name Role Phone Michele Wright MD Primary Care Provider + [phone] Mica Szymanski MD Unavailable [phone] Reason for Visit * Reason Comments Follow-up Labs peripheral stick Encounter Details Date Type Department Care Team ([facility] st Contact Info) Description 01/27/2021 9:00 AM EDT Office Visit Pav CC Head, Neck & Respiratory [address] [place] [address] Divine Carpenter MD [address] [facility] [address] [place] [address] Cancer of larynx (CMS/HCC) Social [...] Sign Reading Time Taken Comments Blood Pressure 165/80 01/27/2021 9:02 AM EDT Pulse 57 01/27/2021 9:02 AM EDT Temperature 36.8 ??C (98.2 ??F) 01/27/2021 9:02 AM ED T Respiratory Rate 16 01/27/2021 9:02 AM EDT Oxygen Saturation 97% 01/27/2021 9:02 AM EDT Inhaled Oxygen Concentration - - Weight 104 kg (229 lb 15 oz) 01/27/2021 9:02 AM EDT Height 176.5 cm (5' 9.49 ) 01/27/2021 9:02 AM ED T Body Mass Index 33.48 01/27/2021 9:02 AM EDT documented in this encounter Miscellaneous Notes * Progress Notes - Divine Carpenter MD - 01/27/2021 9:00 AM EDT MEDICAL ONCOLOGY FOLLOW-UP NOTE Patient Information Patient Name: Anibal Barreto Date of : 1965 REFERRING PHYSICIAN: Michele Wright MD Encounter Date: 01/27/2021 Treatment Diagnosis: Cancer Staging Cancer of larynx [...] Glottis, AJCC 8th Edition, Pathologic: Stage IVC. 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 13 Begins Carboplatin/cetuximab on 01/27/21. Cancer of larynx ([facility]/HCC) 02/19/2017 Cancer Staged Staging form: Larynx - Glottis, AJCC 8th Edition, Clinical stage from 02/19/2017: Stage ZULAY (cT3, cN2c, cM0) - Signed by Divine Carpenter MD on 10/14/2020 03/18/2017 Initial Diagnosis Cancer of larynx ([facility]) 03/22/2018 Cancer Staged Staging form: Larynx - Glottis, AJCC 8th Edition, Pathologic stage from 03/22/2018: Stage III (rpT3, pN0, cM0) - Signed by Divine Carpenter MD on 10/14/2020 11/21/2019 Cancer Staged Staging form: Larynx - Glottis, AJCC 8th Edition, Pathologic stage from 11/21/2019: Stage IVC (rpTX,pNX, pM1) - Signed by Divine Carpenter MD on 10/14/2020 03/14/2020 - 11/24/2020 Research Study Participant [id number]: Pembrolizumab Every 42 Days Every 84 Days Plan Provider: Divine Carpenter MD Treatment goal: Palliative Line of treatment: Second Line Associated studies: Priming Immunotherapy in Advanced Disease with Radiation 11/26/2020 - Radiation Therapy The patient saw No care molybdenum steamer operator to display for radiation treatment. This is the current list ofradiation treatment: Radiation Treatments No radiation treatments to show. (Treatments may have been administered in another system.) 12/09/2020 - Radiation Therapy The patient saw No care molybdenum steamer operator to display for radiation treatment. This is the current list ofradiation treatment: Radiation Treatments No radiation treatments to show. (Treatments may have been administered in another system.) 01/27/2021 - Chemotherapy cetuximab (Erbitux) 892 mg chemo IVPB, 400 mg/m2 = 892 mg, Intravenous, Once, 0 of 6 cycles CARBOplatin (Paraplatin) 661.5 mg in sodium chloride 0.9 % 250 mL chemo IVPB, 661.5 mg, Intravenous, Once, 0 of 6 cycles aprepitant (Cinvanti) 130 MG/18ML IV 130 mg, 130 mg, Intravenous, Once, 0 of 6 cycles Secondary malignant neoplasm of chest wall (CMS/HCC) 11/26/2020 - Radiation Therapy The patient saw No care molybdenum steamer operator to display for radiation treatment. This is the current list ofradiation treatment: Radiation Treatments No radiation treatments to show. (Treatments may have been administered in another system.) 11/26/2020 Initial Diagnosis Secondary malignant neoplasm of chest wall (CMS/HCC) 12/09/2020 - Radiation Therapy The patient saw No care molybdenum steamer operator to display for radiation treatment. This is the current list ofradiation treatment: Radiation Treatments No radiation treatments to show. (Treatments may have been administered in another system.) Currently, he denies fever, or chills, dysuria, hematuria, constipation, melena, diarrhea, hematochezia, hematemesis, abdominal pain, shortness of breath, cough, sputum production, mental status changes, neuropathy, chest pain, palpitations, rash, itching. Problem List and Medications Reviewed in this encounter by me personally Objective Performance Status 0: Fully active, able to carry on all pre-disease performance without restriction Blood pressure 165/80, pulse 57, temperature 36.8 ??C (98.2 ??F), temperature source Oral, resp. rate 16, height 1.765 m (5' 9.49 ), weight 104 kg (229 lb 15 oz), SpO2 97 %. EXAM Physical Exam [...] reviewed by me personally today CBC WBC 7.42 Hgb 15.5 PLT 172 HCT 48.0 Lab Results Component Value Date NEUTROABS 5.80 11/25/2020 BMPL Na 138 Cl 102 BUN 22 Gluc 106 K 4.6 Co2 28 Creat 0.96 LIVER FUNCTION TESTING Tot Prot 7.3 AST 20 Tot bili 0.9 ALT 22 Alkphos 78 Ca 9.4 MR Cervical Spine w and wo IV Contrast, MR Thoracic Spine w and wo IV Contrast Narrative: Exam/Procedure: MR CERVICAL SPINE W AND WO IV CONTRAST, MR THORACIC SPINE W AND WO IV CONTRAST ordered by MICA SZYMANSKI, [id number] CLINICAL INDICATION: Bone neoplasm. Recurrence suspected. TECHNIQUE: Multiplanar multiecho sequences were obtained through the cervical spine utilizing T1 and T2 weighting with and without the administration of intravenous contrast. 14 series were obtained including localizer series. Multiplanar multiecho sequences were obtained through the thoracic spine utilizing T1 and T2 weighting with and without the administration of intravenous contrast. 16 series were obtained including localizer series. 10mL Gadavist. COMPARISON: None. FINDINGS: Cervical Spine: Diagnostic Quality: Adequate. Alignment: The bony alignment is normal. There is straightening of the cervical lordosis. Marrow: Relatively T2 bright signal within the marrow on T1 and T2 sequences may be the sequela of radiation therapy. No definite mass or pathologic enhancement. Vertebrae and Intervertebral Discs: Vertebral body and disc space heights are normal. There is moderate desiccation of the intervertebral discs at the C2-C3 to the C4-C5 levels. Mild desiccation of the other intervertebral discs. Ligaments: Ossification of the posterior longitudinal ligament from the upper to mid cervical levelis again noted. The anterior and posterior longitudinal ligaments and interspinous ligaments are intact. Spinal Cord and Spinal Canal: The spinal cord is of normal caliber without abnormal intrinsic signal. No abnormal enhancement is present within the spinal canal. Degenerative changes are as follows: C2-3: Broad slightly eccentric right disc bulge with superimposed ossification of the posterior longitudinal ligament. Mild bilateral uncovertebral hypertrophy. Mild ligamentum flavum thickening. Mild bilateral facet joint arthrosis. Mild narrowing of bilateral neural foramina and mild to moderate n arrowing of the spinal canal. C3-4: Broad central disc protrusion with with superimposed ossification of the posterior longitudinal ligament. Mild bilateral uncovertebral hypertrophy. Moderate left and mild to moderate right facet joint arthrosis. Moderate narrowing of bilateral neural foramina. Mild narrowing of the spinal canal. C4-5: Broad eccentric right disc bulge with with superimposed ossification of the posterior longitudinal ligament. Mild bilateral uncovertebral hypertrophy. Mild bilateral facet joint arthrosis. Moderate left and mild right neural foramina narrowing. Mild narrowing of the spinal canal. C5-6: Minimal broad disc bulge with superimposed ossification of the posterior longitudinal ligament. Mild bilateral uncovertebral hypertrophy. Mild bilateral facet joint arthrosis. Mild ligamentum flavum thickening. Mild narrowing of neural foramina. Spinal canal is patent. C6-7: Broad eccentric left disc bulge with superimposed osteophytes. Mild to moderate left and mildright uncovertebral hypertrophy. Moderate left and mild to moderate right facet joint arthrosis. Mild to moderate ligamentum flavum thickening. Mild to moderate left neural foramen narrowing. Right neural foramen and spinal canal are patent. C7-T1: Minimal broad eccentric left disc bulge. Mild bilateral uncovertebral hypertrophy. Mild ligamentum flavum thickening. Moderate left and mild right facet joint arthrosis. Mild narrowing of bilateral neural foramina. Spinal canal is patent. Prevertebral and Paraspinal Soft Tissues: There is swelling/edema of prevertebral soft tissues fromvisualized skull base to approximately C5-C6 level (image 7, series 8). Other Findings: None. Thoracic Spine: Diagnostic Quality: Adequate. Alignment: The bony alignment is normal. Marrow: The marrow signal is normal. Vertebrae and Intervertebral Discs: Vertebral body and disc space heights are normal. The intervertebral discs are well hydrated. Ligaments: The anterior and posterior longitudinal ligaments and interspinous ligaments are intact. Spinal Cord and Spinal Canal: There is distention of the central canal within the cord spanning thelower T5 through the T10-T11 levels and compatible with a syrinx. The syrinx measures up to 3 mm atits widest diameter at the mid T8 level (image 5, series 11). No convincing abnormal enhancement ispresent within the spinal canal. Degenerative changes are present at the following levels: Multilevel spondylotic disease includes mild to moderate desiccation of intervertebral discs. Mild disc height loss in the mid thoracic levels from the T5-T6 through T8-T9, disc bulges, ligamentum flavum thickening and bilateral facet joint arthrosis. The spondylotic findings appear worst in the facet joints at T9-T10 level. Prevertebral and Paraspinal Soft Tissues: There is no prevertebral or paraspinal soft tissue swelling or mass. Other Findings: There is subsegmental atelectasis and/or patchy opacity in visualized right lung; correlate with chest CT exam. Impression: CERVICAL SPINE: 1. No evidence of acute abnormality or pathologic enhancement in the cervical spinal canal. 2. Mild edema or inflammatory change within prevertebral soft tissues from the skull base to approximately C5-C6 level. Probable post irradiation change in the marrow of the cervical vertebrae. 3. Moderate multilevel spondylotic disease with superimposed ossification of the posterior longitudinal ligament appears worst at C5-C6 level. Please refer to the above level by level details. THORACIC SPINE: 1. 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 No convincing pathologic enhancement or definite mass within the thoracic spinal canal. 2. Multilevel spondylotic disease appears most pronounced within facet joints at T9-T10 level. CRITICAL RESULT: No. COMMUNICATION: Per this written report. Signed by Dheeraj Lucas on 01/07/2021 5:02 PM Assessment/Plan 1. Cancer management : Cancer Staging Cancer of larynx (CMS/HCC), Staging form: Larynx - Glottis, AJCC 8th Edition, Clinical: Stage ZULAY Cancer of larynx (CMS/HCC), Staging form: Larynx - Glottis, AJCC 8th Edition, Pathologic: Stage III Cancer of larynx (CMS/HCC), Staging form: Larynx - Glottis, AJCC 8th Edition, Pathologic: Stage IVC -This represents a life threatening illness for which continued cancer treatment is indicated. 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 Szymanski today) for the left arm neruopathy. i - Proceed with Carboplatin/Cetuximab, as he had good response 3 years ago with cetuxmiab radiation.I will not include 5-FU due to his PS. - I reviewed liver and renal function as well as bone marrow function - I counseled the patient regarding risk [...] mg q8 hrs x 3 days after chemo, Decadron pre and post medication and Compazine 10mg q6hr prn nausea and teaching sheets on how totake these medications. - The selection, dosing and administration of [...] associated toxicities in patients with cancer - RTC in 3W for Carbo cetux and re-eval 2. Pain related to neoplasm: chronic with some relief - I have evaluated the prescription pain medications currently in use and refilled his oxycodone - The patient continues to experience pain directly related to their neoplasm requiring monitoring and adjustments in dosage and frequency of narcotic and adjunctive medications by me. KEVAN report reviewed and will be reviewed periodically. 3. 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 Monitoring for the emergence of hypothyroidism Lab Results Component Value Date TSH 1.15 10/14/2020 - Continue levothyroxine at current dose - This will be periodically monitored as we continue therapy, due to the potential for worsening ofthyroid function from radiation and systemic cancer therapy. 5. Regimen Related Toxicity: Chemotherapy Induced Nausea: Prescribed ondansetron, compazine and will monitor for nausea and vomiting. MD RAHEL Singh [facility] HEAD[facility] NECK [facility] RESPIRATORY [address] [facility] [address] Michele Wright MD No orders of the defined types were placed in this encounter. documented in this encounter Plan of Treatment Upcoming Encounters Date Type Department Care Team (Late st Contact Info) Description 07/17/2024 12:30 PM EST Clinical Support Pav CC Head, Neck & Respiratory [address] [facility], [address]nd [place] [address] 07/17/2024 1:30 PM EST Appointment PAV G Radiology [address] [place] [address] 07/20/2024 2:50 PM EST Office Visit Pav CC Head, Neck & Respiratory [address] [facility], [address] [place] [address] Divine Carpenter MD [address] [facility] [address] [place] [address] documented as of this encounter Procedures Procedure Name Priority Date/Time Associated Diagnosis Comments CBC WITH AUTO DIFFERENTIAL Routine 01/27/2021 9:12 AM EDT Cancer of larynx (CMS/HCC) MAGNESIUM, PLASMA STAT 01/27/2021 9:1 2 AM EDT Cancer of larynx (CMS/HCC) COMPREHENSIVE METABOLIC PANEL, PLASMA Routine 01/27/2021 9:12 AM EDT Cancer of larynx (CMS/HCC) documented in this encounter Results * (ABNORMAL) CBC and differential (01/27/2021 9:12 AM EDT) WBC Count 5.51 3.70 - 10.30 10*3/uL LAB HEMATOLOGY METHOD 01/27/2021 9:46 AM EDT [facility] RBC Count 5.13 4.60 - 6.10 10*6/uL LAB HEMATOLOGY METHOD 01/27/2021 9:46 AM EDT [facility] HGB 14.5 13.7 - 17.5 g/dL LAB HEMATOLOGY METHOD 01/27/2021 9:46 AM EDT [facility] HCT 45.4 40.0 - 51.0 % LAB HEMATOLOGY METHOD 01/27/2021 9:46 AM EDT [facility] Platelet Count 169 155 - 369 10*3/uL LAB HEMATOLOGY METHOD 01/27/2021 9:46 AM EDT [facility] MCV 89 79 - 98 fL LAB HEMATOLOGY METHOD 01/27/2021 9:46 AM EDT [facility] MCH 28.3 26.0 - 32.0 pg LAB HEMATOLOGY METHOD 01/27/2021 9:46 AM EDT [facility] MCHC 31.9 30.7 - 35.5 g/dL LAB HEMATOLOGY METHOD 01/27/2021 9:46 AM EDT [facility] RDW 14.0 11.5 - 14.5 % LAB HEMATOLOGY METHOD 01/27/2021 9:46 AM EDT [facility] MPV 10.6 8.8 - 12.5 fL LAB HEMATOLOGY METHOD 01/27/2021 9:46 AM EDT [facility] nRBC 0.0 <=0.0 per 100 WBCs LAB HEMATOLOGY METHOD 01/27/2021 9:46 AM EDT [facility] Differential Type Automated LAB HEMATOLOGY METHOD 01/27/2021 9:46 AM EDT [facility] Neutrophils % 70.0 % LAB HEMATOLOGY METHOD 01/27/2021 9:46 AM EDT [facility] Lymphocytes % 12.0 % LAB HEMATOLOGY METHOD 01/27/2021 9:46 AM EDT [facility] Monocytes % 14.0 % LAB HEMATOLOGY METHOD 01/27/2021 9:46 AM EDT [facility] Eosinophils % 3.0 % LAB HEMATOLOGY METHOD 01/27/2021 9:46 AM EDT [facility] Basophils % 1.0 % LAB HEMATOLOGY METHOD 01/27/2021 9:46 AM EDT [facility] Immature Granulocytes % 0.0 % LAB HEMATOLOGY METHOD 01/27/2021 9:46 AM EDT [facility] Neutrophils Absolute 3.90 1.60 - 6.10 10*3/uL LAB HEMATOLOGY METHOD 01/27/2021 9:46 AM EDT [facility] Lymphocytes Absolute 0.65(L) 1.20 - 3.90 10*3/uL LAB HEMATOLOGY METHOD 01/27/2021 9:46 AM EDT [facility] Monocytes Absolute 0.77 0.30 - 0.90 10*3/uL LAB HEMATOLOGY METHOD 01/27/2021 9:46 AM [facility] Eosinophils Absolute 0.14 0.00 - 0.50 10*3/uL LAB HEMATOLOGY METHOD 01/27/2021 9:46 AM EDT [facility] Basophils Absolute 0.03 0.00 - 0.10 10*3/uL LAB HEMATOLOGY METHOD 01/27/2021 9:46 AM EDT [facility] Immature Granulocytes Absolute 0.02 0.00 - 0.06 10*3/uL LAB HEMATOLOGY METHOD 01/27/2021 9:46 AM EDT [facility] Blood Venous blood specimen / Unknown Venipuncture / Unknown 01/27/2021 9:12 AM EDT 01/27/2021 9:30 AM EDT [facility] - 01/27/2021 9:46 AM EDT Therapeutic decision making should be based on absolute values, rather than percentages. us Divine Carpenter MD LAB BLOOD ORDERABLES Final R esult [facility] [address] [place], [place] [id number] * (ABNORMAL) Comprehensive metabolic panel (01/27/2021 9:12 AM EDT) Glucose, Plasma 89 74 - 99 mg/dL 01/27/2021 10:03 AM EDT [facility] BUN, Plasma 17 7 - 21 mg/dL 01/27/2021 10:03 AM EDT [facility] Creatinine, Plasma 0.82 0.80 - 1.30 mg/dL 01/27/2021 10:03 AM EDT [facility] BUN/Creatinine Ratio 21 01/27/2021 10:03 AM EDT [facility] Sodium, Plasma 140 136 - 145 mmol/L 01/27/2021 10:03 AM EDT [facility] Potassium, Plasma 4.5 3.7 - 4.8 mmol/L 01/27/2021 10:03 AM EDT [facility] Chloride, Plasma 104 97 - 107 mmol/L 01/27/2021 10:03 AM EDT [facility] CO2, Plasma 27 22 - 29 mmol/L 01/27/2021 10:03 AM EDT [facility] Anion Gap 9 6 - 16 mmol/L 01/27/2021 10:03 AM EDT [facility] Total Calcium, Plasma 9.6 8.9 - 10.2 mg/dL 01/27/2021 10:03 AM EDT [facility] Total Protein 6.6 6.3 - 7.9 g/dL 01/27/2021 10:03 AM EDT [facility] Albumin, Plasma 4.2 3.5 - 5.2 g/dL 01/27/2021 10:03 AM EDT [facility] AST, Plasma 11(L) 12 - 40 U/L 01/27/2021 10:03 AM EDT [facility] ALT, Plasma 8(L) 11 - 41 U/L 01/27/2021 10:03 AM EDT [facility] Alkaline Phosphatase, Plasma 74 40 - 115 U/L 01/27/2021 10:03 AM EDT [facility] Total Bilirubin, Plasma 0.5 0.2 - 1.1 mg/dL 01/27/2021 10:03 AM EDT [facility] eGFR >60 >60 mL/min/1.7 3m*2 01/27/2021 10:03 AM EDT [facility] Comment:eGFR = estimated GFR ; eGFR units = mL/min/1.73 sq meters Chronic Kidney Disease is considered if eGFR <60 mL/min/1.73 sq meters Kidney failure is considered if eGFR is <15 mL/min/1.73 sq meters. eGFR assumes steady state plasma creatinine concentration; not applicable if renal function is rapidly changing or patient is on dialysis. eGFR, if AFR/AM >60 >60 mL/min/1.7 3m*2 01/27/2021 10:03 AM EDT [facility] Comment:eGFR = estimated GFR ; [...] blood specimen / Unknown Venipuncture / Unknown 01/27/2021 9:12 AM EDT 01/27/2021 9:31 AM EDT us Divine Carpenter MD LAB BLOOD ORDERABLES Final R esult [facility] [address] [place] [address] * Magnesium (01/27/2021 9:12 AM EDT) Magnesium, Plasma 2.0 1.9 - 2.4 mg/dL 01/27/2021 10:03 AM EDT [facility] Blood Venous blood specimen / Unknown Venipuncture / Unknown 01/27/2021 9:12 AM EDT 01/27/2021 9:31 AM EDT Divine Carpenter MD LAB BLOOD ORDERABLES Final R esult [facility] [address] [place] [address] documented in this encounter Visit Diagnoses Diagnosis 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, unspecified site documented in this encounter Additional Health Concerns Assessment Noted Time A fall risk assessment has been complete d for the patient 01/27/2021 9:51 AM EDT documented as of this encounter Care Teams Bait Packer Relationship Specialty Start Date End Date Michele Wright MD [address] [place], [place] [id number] PCP - General 10/11/20 Mica Szymanski MD [address] [facility] [address] [place] [address] Radiation Oncologist Radiation Therapy 03/14/20 4 documented as of this encounter
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
--- OUTSIDE RECORDS SUMMARY | 2024-05-03 13:45 | XMS_ITS | Encounter Summary ---
Author Organization Healthcare Address [address] [id number] Care Team Providers Care Restorative Art Embalmer Name Role Phone Michele Wright MD Primary Care Provider + [phone] Edgar Szymanski MD Unavailable [phone] Encounter Details Date Type Department Care Team ([facility] Contact Info) Description 02/20/2021 Telephone PAV A Interventional Radiology [address] [place] [address] Faby Yung Social History Tobacco Use Types [...] Upcoming Encounters Date Type Department Care Team ([facility] Contact Info) Description 07/17/2024 12:30 PM EST Clinical Support Pav [facility] Head[facility] Neck & Respiratory [address] [facility] [place] [address] 07/17/2024 1:30 PM EST Appointment PAV G Radiology [address] [place] [phone] 07/20/2024 2:50 PM EST Office Visit Pav [facility] Head[facility] Neck & Respiratory [address] [facility] [place] [phone] Divine Carpenter MD [address] [facility] [address] [place] [phone] documented as of this encounter Visit Diagnoses Not on filedocumented in this encounter Additional Health Concerns Assessment Noted Time A fall risk assessment has been complete d for the patient 02/17/2021 9:06 AM EDT documented as of this encounter Care Teams Restorative Art Embalmer Relationship Specialty Start Date End Date Michele Wright MD [address] [place] [address] PCP - General 10/11/20 Edgar Szymanski MD [address] [facility] [address] [place] [phone] Radiation Oncologist Radiation Therapy 03/14/20 4 documented as of this encounter
--- OUTSIDE RECORDS SUMMARY | 2024-05-03 13:45 | XMS_ITS | Encounter Summary ---
Author Organization [facility] Address [address] [place] [address] Care Team Providers Care Regional Director Of Admissions Name Role Phone Michele Wright MD Primary Care Provider + [phone] Edgar Szymanski MD Unavailable [phone] Shun Hurst MD Unavailable [phone] Encounter Details Date Type Department Care Team (Late st Contact Info) Description 02/27/2021 Orders Only [facility] [address] [place] [address] Yumiko Huff, NUTRITION SERVICES AIDE [address] [address] Encounter for preprocedure screening laboratory testing for [...] & Respiratory [address] [place] [address] 07/17/2024 1:30 PM EST Appointment [facility] Radiology [address] [place] [address] 07/20/2024 2:50 PM EST Office Visit Pav [facility] Head, Neck & Respiratory [address] [facility], [address] [place] [address] Divine Carpenter MD [address] [place] [address] documented as of this encounter Results * SARS CoV-2/COVID-19 by PCR (03/03/2021 1:46 PM EDT) SARS CoV-2/COVID-1 9 RNA PCR Result Not Detected Not Detected 03/03/2021 9:35 PM EDT [facility] Swab Oropharyngeal structure / Unknown Non-blood Collection / Unknown 03/03/2021 1:46 PM EDT 03/03/2021 1:47 PM EDT Narrative [facility] - 03/03/2021 9:35 PM EDT This assay is for in vitro diagnostic use under FDA emergency use authorization only. Negative results do not preclude infection with the SARS CoV-2 virus and should not be the sole basis of a patient treatment/management or public health decision. Follow up testing should be performed according to the current CDC recommendations. This test was performed using the TaqPath COVID-19 assay, an [id number] method. The limit of detection (LoD) for this assay is 250 copies/mL. Use of the TaqPath COVID-19 assay in an asymptomatic screening population is intended to be used as part of an infection control plan that may include additional preventative measures, such as a predefined serial testing plan or directed testing of high-risk individuals. Negative results should be considered presumptive and do not preclude current or future infection obtained through community transmission or other exposures. Negative results must be considered in the context of an individual's recent exposures, history, presence of clinical signs and symptoms consistent with COVID-19. Ronnie Rodríguez MD LAB MICROBIOLOGY - GENERAL ORDER PILLO Final Result [facility] [address] [place] [address] documented in this encounter Visit Diagnoses Diagnosis Encounter for preprocedure screening laboratory testing for COVID-19- Primary documented in this encounter Additional Health Concerns Assessment Noted Time A fall risk assessment has been complete d for the patient 02/17/2021 9:06 AM EDT documented as of this encounter Care Teams Regional Director Of Admissions Relationship Specialty Start Date End Date Michele Wright MD [address] [place] [address] PCP - General 10/11/20 Edgar Szymanski MD [address] [facility] [address] [place] [address] Radiation Oncologist Radiation Therapy 03/14/20 4 Shun Hurst MD [address] [place] [phone] Surgeon Neurosurgery 02/24/21 documented as of this encounter
--- OUTSIDE RECORDS SUMMARY | 2024-05-03 13:45 | XMS_ITS | Encounter Summary ---
Author Organization [facility] Address [address] [place] [address] Care Team Providers Care Household Appliance Installer Name Role Phone Michele Wright MD Primary Care Provider [phone] Edgar Szymanski MD Unavailable [phone] Reason for Referral * Imaging (Routine) - Closed Specialty Diagnoses / Procedures Referred By Contac t Referred To Contact Radiology Diagnoses Cancer of larynx (CMS/HCC) Tracheostomy dependent (CMS/HCC) Procedures IR Port Placement 5+ Years Consult to Interventional Radiology Bailey Ellis MD [address] [address] Phone: tel: fax: Referral ID Status Reason Start Date Expiration Date Visits Re quested Visits Authorized [id number] Closed 02/17/2021 08/16/2021 1 1 * Imaging (Routine) - Closed Specialty Diagnoses / Procedures Referred By Contac t Referred To Contact Radiology Diagnoses Cancer of larynx (CMS/HCC) Procedures CT Soft Tissue Neck w IV Contrast Bailey Ellis MD [address] [address] Phone: tel: fax: Referral ID Status Reason Start Date Expiration Date Visits Re quested Visits Authorized [id number] Closed 02/16/2021 08/15/2021 1 1 * Imaging (Routine) - Closed Specialty Diagnoses / Procedures Referred By Ortega harden Referred To Contact Radiology Diagnoses Cancer of larynx (CMS/HCC) Procedures CT Chest w IV Contrast Bailey Ellis MD [address] [address] Phone: tel: fax: Referral ID Status Reason Start Date Expiration Date Visits Re quested Visits Authorized [id number] Closed 02/16/2021 08/15/2021 1 1 Reason for Visit * Reason Comments Follow-up * Episode Based Medications (Routine) - Closed Specialty Diagnoses / Procedures Referred By Ortega harden Referred To Contact Diagnoses Cancer of larynx (CMS/HCC) Bailey Ellis MD [address] [address] Phone: tel: fax: [facility] [address] [place] [address] Phone: tel: Referral ID Status Reason Start Date Expiration Date Visits Re quested Visits Authorized [id number] Closed 12/26/2020 07/07/2021 1 51 Encounter Details Date Type Department Care Team ([facility] st Contact Info) Description 02/17/2021 9:40 AM EDT Office Visit Pav CC Head, Neck & Respiratory 800 [facility], [address]nd [place] [address] Bailey Ellis MD [address] [address] Cancer of larynx (CMS/HCC) (Primary Dx); Tracheostomy dependent (CMS/HCC); Neoplasm related pain; Hypothyroidism due to [...] Sign Reading Time Taken Comments Blood Pressure 108/68 02/17/2021 9:06 AM EDT Pulse 52 02/17/2021 9:06 AM EDT Temperature 36.8 ??C (98.3 ??F) 02/17/2021 9:06 AM ED T Respiratory Rate 16 02/17/2021 9:06 AM EDT Oxygen Saturation 96% 02/17/2021 9:06 AM EDT Inhaled Oxygen Concentration - - Weight 102 kg (225 lb 5 oz) 02/17/2021 9:06 AM E DT Height 177.5 cm (5' 9.88 ) 02/17/2021 9:06 AM ED T Body Mass Index 32.44 02/17/2021 9:06 AM EDT documented in this encounter Miscellaneous Notes * Addendum Note - Bailey Ellis MD - 02/17/2021 9:40 AM EDTAddended by: BAILEY ELLIS on: 02/17/2021 05:16 PM Modules accepted: Orders * Progress Notes - Elsa Etienne MD - 02/17/2021 9:40 AM EDT MEDICAL ONCOLOGY FOLLOW-UP NOTE Patient Information Patient Name: Anibal Barreto Date of : 1965 REFERRING PHYSICIAN: Michele Wright MD Encounter Date: 02/17/2021 Treatment Diagnosis: Cancer Staging Cancer of larynx [...] with adenopathy in levels 2 through 4 [id number] 3 PET/CT scan dated 02/19/2017 showed an intensely hypermetabolic epiglottis and mucosa extending to the true vocal cords, slightly asymmetric involving the right pyriform sinus and aryepiglottic fold with 27 4 mSUV along with intensely hypermetabolic bilateral cervical lymph nodes 4 A biopsy performed here at [facility] during direct examination on [...] limited neck dissection with ALT free flap, [id number] 7 Subsequent followup scans were negative for [...] this was permanently discontinued. Cancer of larynx (CMS/HCC) 02/19/2017 Cancer Staged [...] 10/14/2020 03/14/2020 - 11/24/2020 Research Study Participant [id number]: Pembrolizumab Every 42 Days Every 84 Days Plan Provider: Bailey Ellis MD Treatment goal: Palliative Line of treatment: Second Line Associated studies: Priming Immunotherapy in Advanced Disease with Radiation 11/26/2020 - Radiation Therapy The patient saw No care team psychologist to display for radiation treatment. This is the current list ofradiation treatment: Radiation Treatments No radiation treatments to show. (Treatments may have been administered in another system.) 12/09/2020 - Radiation Therapy The patient saw No care team psychologist to display for radiation treatment. This is [...] (01/27/2021), 130 mg (02/17/2021) 03/10/2021 - Chemotherapy cetuximab (Erbitux) 876 mg chemo IVPB, 400 mg/m2, Intravenous, Once, 0 of 6 cycles CARBOplatin (Paraplatin) 750 mg in sodium chloride 0.9 % 250 mL chemo IVPB, , Intravenous, Once, 0 of 6 cycles fluorouracil (Adrucil) 8,750 mg in sodium chloride 0.9 % 230 mL chemo infusion - for home use, 4,000 mg/m2, Intravenous, Over 96 hours, 0 of 6 cycles APREPITANT IV ORDERABLE, 130 mg, Intravenous, Once, 0 of 6 cycles Secondary malignant neoplasm of chest wall (CMS/HCC) 11/26/2020 - Radiation Therapy The patient saw No care team psychologist to display for radiation treatment. This is the current list ofradiation treatment: Radiation Treatments No radiation treatments to show. (Treatments may have been administered in another system.) 11/26/2020 Initial Diagnosis Secondary malignant neoplasm of chest wall (CMS/HCC) 12/09/2020 - Radiation Therapy The patient saw No care team psychologist to display for radiation treatment. This is the current list ofradiation treatment: Radiation Treatments No radiation treatments to show. (Treatments may have been administered in another system.) He did well with Day 1 of treatment except for mild fatigue and nausea for few days. Day 8 of treatment got missed due to misunderstanding. Currently, he denies fever, or chills, dysuria, [...] carry on all pre-disease performance without restriction and 1: Restrictedin physically strenuous activity but ambulatory and able to do light work Blood pressure 108/68, pulse 52, temperature 36.8 ??C (98.3 ??F), temperature source Oral, resp. rate 16, height 1.775 m (5' 9.88 ), weight 102 kg (225 lb 5 oz), SpO2 96 %. EXAM Physical Exam Constitutional: General: He [...] reviewed by me personally today CBC WBC 4.03 Hgb 13.3 PLT 107 HCT 41.5 Lab Results Component Value Date NEUTROABS 3.13 02/17/2021 BMPL Na 140 Cl 103 BUN 10 Gluc 89 K 4.4 Co2 29 Creat 0.73 LIVER FUNCTION TESTING Tot Prot 6.6 AST 14 Tot bili 0.4 ALT 9 Alkphos 81 Ca 9.1 Mg 2.0 Phos No results found for requested labs within last 8760 hours. Assessment/Plan 1. Cancer management : Cancer Staging [...] MRI for the left arm neuropathy. - Due to disease progression, initiated Carboplatin/Cetuximab, as he had good response 3 years ago with cetuxmiab radiation. - I reviewed liver and renal function [...] of associated toxicities in patients with cancer -Proceed with C2D1 carbo/cetux today. Developed anaphylaxis later in the day due to cetuximab. - RTC in 3W for Carbo and will add 5FU and re-eval with CT scans. Will also get a portacath. 2. 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 KEVAN report reviewed and will be reviewed periodically. 3. Malnutrition secondary to cancer: - Weight stable 4. Monitoring for the emergence of hypothyroidism Lab Results Component Value Date TSH 1.84 02/17/2021 - Continue levothyroxine at current dose - This will be periodically monitored as we continue therapy, due to the potential for worsening ofthyroid function from radiation and systemic cancer therapy. 5. Regimen Related Toxicity: - Chemotherapy Induced Nausea: Prescribed ondansetron, compazine and will monitor for nausea and vomiting. - Reasonably controlled. Discussed with Dr. Ellis. Bailey Ellis MD Hem/onc fellow, PGY-5 Pager [phone] Orders Placed This Encounter Procedures CT Chest w IV Contrast CT Soft Tissue Neck w IV Contrast IR Port Placement 5+ Years CBC and differential Comprehensive metabolic panel Magnesium CBC and differential Comprehensive metabolic panel Magnesium Cosigned by Bailey Ellis MD at 02/17/2021 5:09 PM EDT Associated attestation - Bailey Ellis MD - 02/17/2021 5:09 PM EDT Attending Attestation Statement: Today, I saw and [...] me and under my supervision. I personally discussed the plans outlined above at length with the patient. I re-evaluated the patient's case after his anaphylaxis to Cetuximab, discussed this with the MOHINI Diann Sherman, discontinued cetuximab and will change to carbo-5FU. I ordered a portacath. Bailey Ellis MD * Progress Notes - Margaret Carter, PharmD - 02/17/2021 9:40 AM EDT Pharmacy Hematology/Oncology Follow-up Treatment Plan [...] been ~21 days since he received chemotherapy. Treatment plan reviewed: carboplatin/cetuximab C2 Dosing Wt: 107 kg Today's Wt: 107 kg Dosing Ht: 177 cm DosingBSA: 2.23 m2 Recent Labs - update carbo calculator with day of treatment labs Lab Results Component Value Date WBC 4.03 02/17/2021 HGB 13.3 (L) 02/17/2021 HCT 41.5 02/17/2021 MCV 88 02/17/2021 PLT 107 (L) 02/17/2021 Lab Results Component Value Date GLUCOSE 89 02/17/2021 CALCIUM 9.1 02/17/2021 NA 140 02/17/2021 K 4.4 02/17/2021 CO2 29 02/17/2021 CL 103 02/17/2021 BUN 10 02/17/2021 CREATININE 0.73 (L) 02/17/2021 Lab Results Component Value Date ALT 9 (L) 02/17/2021 AST 14 02/17/2021 ALKPHOS 81 02/17/2021 BILITOT 0.4 02/17/2021 Lab Results Component Value Date NEUTROABS 3.13 02/17/2021 Lab Results Component Value Date MG 2.0 02/17/2021 Lab Results Component Value Date TSH 1.84 02/17/2021 No results found for: UTPCR Vitals: Visit Vitals BP 108/68 (BP Location: Left arm) Pulse 52 Temp 36.8 ??C (98.3 ??F) (Oral) Resp 16 Study Patient: No Chemotherapy Regimen Carboplatin AUC 5 IV D1 Cetuximab 400 mg/m2 (892) x 1, then 250 mg/m2 (558mg) IV weekly (D1, 8, 15) [x] No dose adjustments made Current Treatment Plan History Carbo/cetux C1: 01/27/21 (only received Day 1) C2: 02/17/21 Prior Chemotherapy History Pembrolizumab (Mulit-20 study) C1: 03/14 C2: 04/04 C3: 04/25 (transition to 400 mg [id number]) C4: 06/03/20 C5: 07/22/20 C6: 09/02/20 C7: 10/14/20 Patient will return to clinic in 3 weeks. Will follow-up at that time. Pharmacist Attestation: Margaret Carter PharmD 02/17/2021 11:04 AM Cosigned by Amadou Barragan PharmD at 02/17/2021 11:30 AM EDT Associated attestation - Amadou Barragan PharmD - 02/17/2021 11:30 AM EDT Amadou Barragan PharmD, [facility] Oncology Clinical Pharmacist documented in this encounter Plan of Treatment Upcoming Encounters Date Type Department Care Team (Late st Contact Info) Description 07/17/2024 12:30 PM EST Clinical Support Pav [facility] Head, Neck & Respiratory [address] [address] 07/17/2024 1:30 PM EST Appointment [facility] [address] [place] [address] 07/20/2024 2:50 PM EST Office Visit Pav CC Head, Neck & Respiratory [address] [place] [address] Bailey Ellis MD 800 [facility] [address] [place] [address] documented as of this encounter Results * Magnesium (03/10/2021 10:01 AM EDT) Magnesium, Plasma 1.9 1.9 - 2.4 mg/dL 03/10/2021 11:11 AM EDT [facility] Blood Venous blood specimen / Unknown Venipuncture / Unknown 03/10/2021 10:01 AM EDT 03/10/2021 10:39 AM EDT Bailey Ellis MD LAB BLOOD ORDERABLES Final R esult [facility] [address] [place] [address] * (ABNORMAL) Comprehensive metabolic panel (03/10/2021 10:01 AM EDT) Glucose, Plasma 91 74 - 99 mg/dL 03/10/2021 11:11 AM EDT [facility] BUN, Plasma 18 7 - 21 mg/dL 03/10/2021 11:11 AM EDT [facility] Creatinine, Plasma 0.59(L) 0.80 - 1.30 mg/dL 03/10/2021 11:11 AM EDT [facility] BUN/Creatinine Ratio 31 03/10/2021 11:11 AM EDT [facility] Sodium, Plasma 142 136 - 145 mmol/L 03/10/2021 11:11 AM EDT [facility] Potassium, Plasma 4.0 3.7 - 4.8 mmol/L 03/10/2021 11:11 AM EDT [facility] Chloride, Plasma 103 97 - 107 mmol/L 03/10/2021 11:11 AM EDT [facility] CO2, Plasma 29 22 - 29 mmol/L 03/10/2021 11:11 AM EDT [facility] Anion Gap 10 6 - 16 mmol/L 03/10/2021 11:11 AM EDT [facility] Total Calcium, Plasma 9.4 8.9 - 10.2 mg/dL 03/10/2021 11:11 AM EDT [facility] Total Protein 7.2 6.3 - 7.9 g/dL 03/10/2021 11:11 AM EDT [facility] Albumin, Plasma 4.2 3.5 - 5.2 g/dL 03/10/2021 11:11 AM EDT [facility] AST, Plasma 14 12 - 40 U/L 03/10/2021 11:11 AM EDT [facility] ALT, Plasma 14 11 - 41 U/L 03/10/2021 11:11 AM EDT [facility] Alkaline Phosphatase, Plasma 81 40 - 115 U/L 03/10/2021 11:11 AM EDT [facility] Total Bilirubin, Plasma 0.4 0.2 - 1.1 mg/dL 03/10/2021 11:11 AM EDT [facility] eGFR >60 >60 mL/min/1.7 3m*2 03/10/2021 11:11 AM EDT [facility] Comment:eGFR = estimated GFR ; eGFR [...] >60 >60 mL/min/1.7 3m*2 03/10/2021 11:11 AM EDT [facility] Comment:eGFR = estimated GFR ; eGFR [...] 10:01 AM EDT 03/10/2021 10:39 AM EDT Bailey Ellis MD LAB BLOOD ORDERABLES Final R esult [facility] [address] [place] [address] * (ABNORMAL) CBC and differential (03/10/2021 10:01 AM EDT) WBC Count 3.52(L) 3.70 - 10.30 10*3/uL LAB HEMATOLOGY METHOD 03/10/2021 10:54 AM EDT [facility] RBC Count 4.61 4.60 - 6.10 10*6/uL LAB HEMATOLOGY METHOD 03/10/2021 10:54 AM EDT [facility] HGB 13.5(L) 13.7 - 17.5 g/dL LAB HEMATOLOGY METHOD 03/10/2021 10:54 AM EDT [facility] HCT 40.7 40.0 - 51.0 % LAB HEMATOLOGY METHOD 03/10/2021 10:54 AM EDT [facility] Platelet Count 105(L) 155 - 369 10*3/uL LAB HEMATOLOGY METHOD 03/10/2021 10:54 AM EDT [facility] MCV 88 79 - 98 fL LAB HEMATOLOGY METHOD 03/10/2021 10:54 AM EDT [facility] MCH 29.3 26.0 - 32.0 pg LAB HEMATOLOGY METHOD 03/10/2021 10:54 AM EDT [facility] MCHC 33.2 30.7 - 35.5 g/dL LAB HEMATOLOGY METHOD 03/10/2021 10:54 AM EDT [facility] RDW 13.7 11.5 - 14.5 % LAB HEMATOLOGY METHOD 03/10/2021 10:54 AM EDT [facility] MPV 10.1 8.8 - 12.5 fL LAB HEMATOLOGY METHOD 03/10/2021 10:54 AM EDT [facility] nRBC 0.0 <=0.0 per 100 WBCs LAB HEMATOLOGY METHOD 03/10/2021 10:54 AM EDT [facility] Differential Type Automated LAB HEMATOLOGY METHOD 03/10/2021 10:54 AM EDT [facility] Neutrophils % 76.0 % LAB HEMATOLOGY METHOD 03/10/2021 10:54 AM EDT [facility] Lymphocytes % 13.0 % LAB HEMATOLOGY METHOD 03/10/2021 10:54 AM EDT [facility] Monocytes % 10.0 % LAB HEMATOLOGY METHOD 03/10/2021 10:54 AM EDT [facility] Eosinophils % 0.0 % LAB HEMATOLOGY METHOD 03/10/2021 10:54 AM EDT [facility] Basophils % 0.0 % LAB HEMATOLOGY METHOD 03/10/2021 10:54 AM EDT [facility] Immature Granulocytes % 1.0 % LAB HEMATOLOGY METHOD 03/10/2021 10:54 AM EDT [facility] Neutrophils Absolute 2.72 1.60 - 6.10 10*3/uL LAB HEMATOLOGY METHOD 03/10/2021 10:54 AM EDT [facility] Lymphocytes Absolute 0.44(L) 1.20 - 3.90 10*3/uL LAB HEMATOLOGY METHOD 03/10/2021 10:54 AM EDT [facility] Monocytes Absolute 0.34 0.30 - 0.90 10*3/uL LAB HEMATOLOGY METHOD 03/10/2021 10:54 AM EDT [facility] Eosinophils Absolute 0.00 0.00 - 0.50 10*3/uL LAB HEMATOLOGY METHOD 03/10/2021 10:54 AM EDT [facility] Basophils Absolute 0.00 0.00 - 0.10 10*3/uL LAB HEMATOLOGY METHOD 03/10/2021 10:54 AM EDT [facility] Immature Granulocytes Absolute 0.02 0.00 - 0.06 10*3/uL LAB HEMATOLOGY METHOD 03/10/2021 10:54 AM EDT [facility] Blood Venous blood specimen / Unknown Venipuncture / Unknown 03/10/2021 10:01 AM EDT 03/10/2021 10:42 AM EDT Narrative [facility] - 03/10/2021 10:54 AM EDT Therapeutic decision making should be based on absolute values, rather than percentages. us Bailey Ellis MD LAB BLOOD ORDERABLES Final R esult [facility] [address] [place] [address] * IR Port Placement 5+ Years (03/06/2021 [...] PLACEMENT 5+ YEARS ordered by BAILEY ELLIS, [id number] CLINICAL INDICATION: 55-year-old male with history of metastatic laryngeal cancer status post resection, chemoradiation and right neck dissection. Presents today for port placement. Supervising attending: Clyde Aguillon Zipper Setter: Kwabena Tierney Secondary Animal Doctor: None. Rad Dose: 124 mGy Fluoroscopy Time: ??3.5 minutes Medications: General anesthesia provided by a member of the anesthesia team. 1% Lidocaine SQ. Antibiotics: Ancef 2 g Procedure: After discussion of risks and benefits, informed written consent was obtained. Appropriate time out was done to confirm patient identity and planned procedure. The patient was placed supine on the fluoro table. Curtain Feller Blindstitch ultrasonography revealed the vein to be compressible [...] ?? Device: Bard Power Port. Lot No. [id number] COMPARISON: CT soft tissue neck with contrast 03/03/2021 ?? FINDINGS: Patent left internal jugular vein COMPLICATION: No. Procedure Note Clyde Aguillon MD - 03/06/2021 Exam/Procedure: IR PORT PLACEMENT 5+ YEARS ordered by BAILEY ELLIS,[id number] CLINICAL INDICATION: 55-year-old male with history of metastatic laryngeal cancer status postresection, chemoradiation and right neck dissection. Presents today forport placement. Supervising attending: Clyde Aguillon Zipper Setter: Kwabena Tierney Secondary Animal Doctor: None. Rad Dose: 124 mGy Fluoroscopy Time: 3.5 minutes Medications: General anesthesia provided by a member of the anesthesiateam. 1% Lidocaine SQ. Antibiotics: Ancef 2 g Procedure: After discussion of risks and benefits, informed written consent wasobtained. Appropriate time out was done to confirm patient identity andplanned procedure. The patient was placed supine on the fluoro table.Curtain Feller Blindstitch ultrasonography revealed the vein to be compressible [...] complication. Device: Bard Power Port. Lot No. [id number] COMPARISON: CT soft tissue neck with contrast [...] IMG IR PROCEDURES Final Resu lt * CT Soft [...] W IV CONTRAST ordered by BAILEY ELLIS, [id number] CLINICAL INDICATION: Head and neck cancer status [...] W IV CONTRAST ordered by BAILEY MOREIRA, [id number] CLINICAL INDICATION: Head and neck cancer status [...] W IV CONTRAST ordered by BAILEY ELLIS, [id number] CLINICAL INDICATION: Head and neck cancer. TECHNIQUE: [...] CHEST W IV CONTRAST ordered by BAILEY ELLIS,[id number] CLINICAL INDICATION: Head and neck cancer. 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, unspecified site 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, unspecified site Tracheostomy dependent (CMS/HCC) Tracheostomy status documented in this encounter Additional Health Concerns Assessment Noted Time A fall risk assessment has been complete d for the patient 02/17/2021 9:06 AM EDT documented as of this encounter Care Teams Household Appliance Installer Relationship Specialty Start Date End Date Michele Wright MD [address] [place] [address] PCP - General 10/11/20 Edgar Szymanski MD [address] [phone] Radiation Oncologist Radiation Therapy 03/14/20 4 documented as of this encounter
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
--- OUTSIDE RECORDS SUMMARY | 2024-05-03 13:45 | XMS_ITS | Encounter Summary ---
Author Organization Healthcare Address [address] [place], [place] [address] Care Team Providers Care Bloom Conveyor Operator Name Role Phone Michele Wright MD Primary Care Provider + [phone] Edgar Szymanski MD Unavailable [phone] Reason for Visit * Reason Comments Med Refill Encounter Details Date Type Department Care Team ([facility] st Contact Info) Description 01/07/2021 Refill Pav CC Head, Neck & Respiratory [address] [place] [address] Divine Carpenter MD 800 [facility] [address] [place] [address] Social History Tobacco Use Types Packs/Day Years [...] have Coronavirus / COVID-19? No / Unsure 12/26/2020 11:40 AM EDT documented as of this encounter Plan of Treatment Upcoming Encounters Date Type Department Care Team (Late st Contact Info) Description 07/17/2024 12:30 PM EST Clinical Support Pav CC Head, Neck & Respiratory 800 [facility], 2nd [place] [address] 07/17/2024 1:30 PM EST Appointment PAV G Radiology [address] [place] [address] 07/20/2024 2:50 PM EST Office Visit Pav CC Head, Neck & Respiratory 800 [facility], 2nd [place] [address] Divine Carpenter MD 800 [facility] [address] [place] [address] documented as of this encounter Visit Diagnoses Not on filedocumented in this encounter Additional Health Concerns Assessment Noted Time A fall risk assessment has been complete d for the patient 12/26/2020 12:01 PM EDT documented as of this encounter Care Teams Bloom Conveyor Operator Relationship Specialty Start Date End Date Michele Wright MD [address] [place] [address] PCP - General 10/11/20 Edgar Szymanski MD 800 [facility] [address] [place] [address] Radiation Oncologist Radiation Therapy 03/14/20 4 documented as of this encounter
--- OUTSIDE RECORDS SUMMARY | 2024-05-03 13:45 | XMS_ITS | Encounter Summary ---
Author Organization [facility] Address [facility] [address] [id number] Care Team Providers Care Metal Tank Builder Name Role Phone Michele Wright MD Primary Care Provider + [phone] Edgar Szymanski MD Unavailable [phone] Encounter Details Date Type Department Care Team (Late st Contact Info) Description 02/17/2021 Telephone PAV CC Radiation [id number] [place] [address] Edgar Szymanski MD [address] [place] [address] Social History Tobacco Use Types Packs/Day Years [...] Pav CC Head, Neck & Respiratory [address] [facility], 2nd [place] [address] 07/17/2024 1:30 PM EST Appointment PAV G Radiology [address] [place] [address] 07/20/2024 2:50 PM EST Office Visit Pav CC Head, Neck & Respiratory 800 [facility], 2nd [place] [address] Divine Carpenter MD 800 [facility] [address] [place] [address] documented as of this encounter Visit Diagnoses Not on filedocumented in this encounter Additional Health Concerns Assessment Noted Time A fall risk assessment has been complete d for the patient 02/17/2021 9:06 AM EDT documented as of this encounter Care Teams Metal Tank Builder Relationship Specialty Start Date End Date Michele Wright MD [address] [place] [address] PCP - General 10/11/20 Edgar Szymanski MD [address] [facility] [address] [place] [address] Radiation Oncologist Radiation Therapy 03/14/20 4 documented as of this encounter
--- OUTSIDE RECORDS SUMMARY | 2024-05-03 13:45 | XMS_ITS | Encounter Summary ---
Author Organization Healthcare Address [address] [id number] Care Team Providers Care Chiller Tender Name Role Phone Michele Wright MD Primary Care Provider + [phone] Edgar Szymanski MD Unavailable [phone] Encounter Details Date Type Department Care Team ([facility] Contact Info) Description 02/19/2021 Telephone PAV A Interventional Radiology [address] [place] [address] Faby Yung Social History Tobacco Use Types [...] Upcoming Encounters Date Type Department Care Team ([facility] Contact Info) Description 07/17/2024 12:30 PM EST Clinical Support Pav CC Head, Neck & Respiratory 800 [facility], 2nd [place] [address] 07/17/2024 1:30 PM EST Appointment PAV G Radiology [address] [place] [address] 07/20/2024 2:50 PM EST Office Visit Pav CC Head, Neck & Respiratory 800 [facility], 2nd [place] [address] Divine Carpenter MD 800 [facility] [address] [place] [address] documented as of this encounter Visit Diagnoses Not on filedocumented in this encounter Additional Health Concerns Assessment Noted Time A fall risk assessment has been complete d for the patient 02/17/2021 9:06 AM EDT documented as of this encounter Care Teams Chiller Tender Relationship Specialty Start Date End Date Michele Wright MD [address] [place] [address] PCP - General 10/11/20 Edgar Szymanski MD 800 [facility] [address] [place] [address] Radiation Oncologist Radiation Therapy 03/14/20 4 documented as of this encounter
--- OUTSIDE RECORDS SUMMARY | 2024-05-03 13:45 | XMS_ITS | Encounter Summary ---
Author Organization [facility] Address [address] [place], [place] [address] Care Team Providers Care Unit Aid Name Role Phone Michele Wright MD Primary Care Provider + [phone] Edgar Szymanski MD Unavailable [phone] Reason for Visit * Reason Comments Follow-up 4 week Encounter Details Date Type Department Care Team (Latest Contact Info) Description 01/22/2021 2:11 PM EDT - 01/22/2021 11:59 PM EDT Hospital Encounter PAV CC Radiation [address] [place] [address] Edgar Szymanski MD [address] [facility] [address] [place] [address] Cancer of larynx (CMS/HCC) (Primary Dx) Discharge Disposition: Still a [...] Sign Reading Time Taken Comments Blood Pressure 157/82 01/22/2021 2:24 PM EDT Pulse 46 01/22/2021 2:24 PM EDT Temperature - - Respiratory Rate 16 01/22/2021 2:24 PM EDT Oxygen Saturation 96% 01/22/2021 2:24 PM EDT Inhaled Oxygen Concentration - - Weight 105 kg (232 lb 5.8 oz) 01/22/2021 2:24 PM EDT Height 177.8 cm (5' 10 ) 01/22/2021 2:24 PM EDT Body Mass Index 33.34 01/22/2021 2:24 PM EDT documented in this encounter Medications at Time of Discharge morphine CR (MS Contin) 60 MG 12 hr tablet Take 1 tablet (60 mg total) by mouth every 12 (twelve) hours. Do not crush, chew, or split. 60 tablet 12/26/2020 01/26/20 21 ondansetron ODT (Zofran-ODT) 8 MG disintegrating tablet Take 1 tablet (8 mg total) by mouth 3 (three) times a day for 10 days. 30 tablet 01/22/2021 02/02/20 21 alclometasone (Aclovate) 0.05 % creamIndications:Ca ncer of larynx (CMS/HCC) Apply to affected area PRN rash 60 g 5 01/13/2021 02/18/20 21 ALPRAZolam (Xanax) 1 MG tablet 1 tab(s) orally 2 times a day, As Needed 09/02/2020 06/12/19 22 candesartan-hydroCH LOROthiazide (Atacand HCT) 32-12.5 MG tablet 12/23/2016 0 21 dexamethasone (Decadron) 4 MG tabletIndications:C ancer of larynx (CMS/HCC) Take 2 tablets (8 mg total) by mouth 1 (one) time each day. Starting day after chemo for 3 days. 36 tablet 01/13/2021 02/18/20 21 doxycycline (Adoxa) 100 MG tabletIndications:C ancer of larynx (CMS/HCC) Take 1 tablet (100 mg total) by mouth 2 (two) times a day. Take with a full glass of water and do not lie down for at least 30 minutes after 60 tablet 5 01/13/2021 02/18/20 21 gabapentin (Neurontin) 600 MG tablet Take 1 tablet (600 mg total) by mouth 4 (four) times a day. 120 tablet 1 11/25/2020 04/21/20 21 ibuprofen (Childrens Ibuprofen) 100 MG/5ML suspension Take 30 mL (600 mg total) by mouth every 6 (six) hours if needed for mild pain. 2000 mL 3 12/26/2020 01/26/20 21 levothyroxine (Synthroid, Levoxyl) 150 MCG tablet TAKE 1 TABLET DAILY. 03/29/2018 06/12/19 22 Lidocaine 2 % gel Apply 1 application topically 5 (five) times a day. 30 g 2 11/25/2020 02/18/20 21 lisinopril 5 MG tablet 11/05/2020 01/28/20 21 LISINOPRIL PO 01/28/20 21 loratadine (Claritin) 10 MG tablet TAKE 1 TABLET BY MOUTH ONCE A DAY 30 tablet 2 01/07/2021 01/28/20 21 metoprolol tartrate (Lopressor) 50 MG tablet 1 tab(s) orally 2 times a day 06/12/19 22 omeprazole (PriLOSEC) [address] capsule TAKE 1 CAPSULE ONCE A DAY 11/19/2017 01/28/20 21 oxyCODONE (Roxicodone) 30 MG immediate release tablet Take 1-2 tablets (30-60 mg total) by mouth every 6 (six) hours if needed for severe pain. For cancer related pain 200 tablet 12/26/2020 01/28/20 21 predniSONE (Deltasone) 10 MG tablet 06/24/2020 01/28/20 21 prochlorperazine (Compazine) 10 MG tabletIndications:C ancer of larynx (CMS/HCC) Take 1 tablet (10 mg total) by mouth every 6 (six) hours if needed for nausea or vomiting. 30 tablet 5 01/13/2021 01/28/20 21 documented as of this encounter Miscellaneous Notes * Progress Notes - Magda Wheeler - 01/22/2021 2:30 PM EDT Radiation Medicine Clinic Follow Up note. Patient Name: Anibal Barreto Date of : 1965 55 y.o. Encounter Date: 01/22/2021 Referring Physician: Dr. 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 He subsequently developed progressive disease to the right axilla. He was previously on the MULTI-20 clinical trial, before being taken off due to progressive disease. PRIOR RADIATION THERAPY: - 7000 cGy delivered in 35 fractions at 200 cGy per fraction for T3N3M0 supraglottic larynx cancer completed 07/09/2017 ??-3000 cGy in 3 fractions to the right upper lung extrapleural nodule outside the surgical wedge resected bed via 6X SBRT completed on 03/29/20. RADIATION DOSE: Radiation Treatments Active No active radiation treatments to show. Historical Plans [id number] RTAx Most recent treatment: Dose planned: 300 cGy (fraction 10 on 12/20/2020) Total: Dose planned: 3,000 cGy (10 fractions) Elapsed Days: 11 Reference Points Right Axilla Most recent treatment: Dose given: 300 cGy (on 12/20/2020) Total: Dose given: 3,000 cGy Elapsed Days: 11 A total dose of 3000 cGy in 10 fractions at 300 cGy per fraction, was delivered to the right axillausing 18X/6X photons with 3D conformal technique, completed 12/20/2020. TREATMENT DATES: 12/09/2020 to 12/20/2020. UNPLANNED TREATMENT DELAYS OR INTERRUPTIONS: None. COURSE STATUS: Completed. TREATMENT COURSE: He experiences continued right axilla discomfort, for which he has been taking opioid pain medications. He experienced grade 1 radiation dermatitis. His right axillary mass noted to have decreased insize. He is experiencing nausea in the morning for which we went in Zofran. He has an appointment scheduled Saturday 01/27 at 9AM with Med Onc. He continues to have pain extending down his right arm. He has had an MRI of this area. The MRI of this area was negative for any recurrence or metastatic disease. 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 It is uncertain if this is the reason whyhe is having the pain. This pain has been refractory to most exercises. Assessment and plan.. He is beeing referred to neurosurgery for persistent right arm pain with MRI findings her findings of hydrosyringomyelia. We will plan to see the patient for follow up in our clinic approximately 4 months. As far as his response to his axillary masses concerned it is barely palpable on today's clinical examination. Please contact our department with any questions. Magda Wheeler, MS4 RAHEL MAYS PAV CC RADIATION [address] [place] [address] Cosigned by Edgar Szymanski MD at 01/23/2021 1:00 PM EDT Associated attestation - Edgar Szymanski MD - 01/23/2021 1:00 PM EDT I saw and evaluated the patient. I discussed the case with the medical student and resident and agree with the findings and plan as documented. I personally participated in the management of the patient. documented in this encounter Plan of Treatment Upcoming Encounters Date Type Department Care Team (Late st Contact Info) Description 07/17/2024 12:30 PM EST Clinical Support Pav CC Head, Neck & Respiratory 800 [facility], [address]nd [place] [address] 07/17/2024 1:30 PM EST Appointment PAV G Radiology [address] [place] [address] 07/20/2024 2:50 PM EST Office Visit Pav CC Head, Neck & Respiratory 800 [facility], [address]nd [place] [address] Divine Carpenter MD 800 [facility] Diane Zuniga [facility] [address] [place] [address] documented as of this encounter Visit Diagnoses Diagnosis 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, unspecified site documented in this encounter Additional Health Concerns Assessment Noted Time A fall risk assessment has been complete d for the patient 12/26/2020 12:01 PM EDT documented as of this encounter Care Teams Unit Aid Relationship Specialty Start Date End Date Michele Wright MD [address] [place] [address] PCP - General 10/11/20 Edgar Szymanski MD 800 [facility] [address] [place] [address] Radiation Oncologist Radiation Therapy 03/14/20 4 documented as of this encounter
--- OUTSIDE RECORDS SUMMARY | 2024-05-03 13:45 | XMS_ITS | Encounter Summary ---
Author Organization [facility] Address [address] [id number] Care Team Providers Care Assembler Dry Cell And Battery Name Role Phone Michele Wright MD Primary Care Provider + [phone] Edgar Szymanski MD Unavailable [phone] Reason for Visit * Episode Based Medications (Routine) - Closed Specialty Diagnoses / Procedures Referred By Contac t Referred To Contact Diagnoses Cancer of larynx (CMS/HCC) Divine Carpenter MD [address] [place] [address] Phone: tel: fax: [facility] In[facility] [address] [place] [address] Phone: tel: Referral ID Status Reason Start Date Expiration Date Visits Re quested Visits Authorized [id number] Closed 12/26/2020 07/07/2021 1 51 Encounter Details Date Type Department Care Team (Latest Contact Info) Description 01/27/2021 9:50 AM EDT - 01/27/2021 11:59 PM EDT Hospital Encounter [facility] Infusion Clinic [address] [place] [address] Cancer of larynx (CMS/HCC) (Primary [...] Sign Reading Time Taken Comments Blood Pressure 153/77 01/27/2021 3:17 PM EDT Pulse 45 01/27/2021 3:17 PM EDT Temperature 36.6 ??C (97.8 ??F) 01/27/2021 9:52 AM ED T Respiratory Rate 18 01/27/2021 9:52 AM EDT Oxygen Saturation 95% 01/27/2021 9:52 AM EDT Inhaled Oxygen Concentration - - Weight 104 kg (230 lb 2.6 oz) 01/27/2021 9:52 AM EDT Height 176.5 cm (5' 9.5 ) 01/27/2021 9:52 AM EDT Body Mass Index 33.5 01/27/2021 9:52 AM EDT documented in this encounter Medications at Time of Discharge ondansetron ODT (Zofran-ODT) 8 MG disintegrating tablet [...] a day, As Needed 09/02/2020 06/12/19 22 amLODIPine-atorvast atin (Caduet) 10-10 MG tablet Take 1 tablet by mouth 1 (one) time each day. 06/12/19 22 candesartan-hydroCH LOROthiazide (Atacand HCT) 32-12.5 [...] day. 120 tablet 1 11/25/2020 04/21/20 21 levothyroxine (Synthroid, Levoxyl) 150 MCG tablet TAKE 1 TABLET DAILY. 03/29/2018 06/12/19 22 Lidocaine 2 % gel Apply 1 application topically 5 (five) times a day. 30 g 2 11/25/2020 02/18/20 21 lisinopril 10 MG tablet Take 1 tablet (10 mg total) by mouth 1 (one) time each day. 30 tablet 01/27/2021 04/21/20 21 metoprolol tartrate (Lopressor) 50 MG tablet 1 tab(s) orally 2 times a day 06/12/19 22 omeprazole OTC (PriLOSEC OTC) 20 MG EC tablet Take 2 tablets (40 mg total) by mouth 1 (one) time each day. Do not crush, chew, or split. 60 tablet 5 01/27/2021 06/12/19 22 oxyCODONE (Roxicodone) 30 MG immediate release tablet Take 1-2 tablets (30-60 mg total) by mouth every 6 (six) hours if needed for severe pain. For cancer related pain 200 tablet 01/27/2021 02/18/20 21 prochlorperazine (Compazine) 10 MG tabletIndications:C ancer of larynx (CMS/HCC) Take 1 tablet (10 mg total) by mouth every 6 (six) hours if needed for nausea or vomiting. 30 tablet 5 01/27/2021 02/18/20 documented as of this encounter Plan of Treatment Upcoming Encounters Date Type Department Care Team (Late st Contact Info) Description 07/17/2024 12:30 PM EST Clinical Support Pav CC Head, Neck & Respiratory 800 [facility], [address]nd [place] [address] 07/17/2024 1:30 PM EST Appointment PAV G Radiology [address] [place] [address] 07/20/2024 2:50 PM EST Office Visit Pav CC Head, Neck & Respiratory 800 [facility], [address]nd [place] [address] Divine Carpenter MD 800 [facility] [address] [place] [address] documented as of this encounter Visit Diagnoses Diagnosis 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, unspecified site documented in this encounter Administered Medications Inactive Administered Medications - up to 3 most recent administrations Medication Order MAR Action Action Date Dose Rate Site acetaminophen (Tylenol) tablet 650 mg 650 mg, Oral, Once, 1 dose, On Wed01/27/21 at 1030, RoutineIndications:Cancer of larynx (CMS/HCC) Given 01/27/2021 10:21 AM EDT 650 mg aprepitant (Cinvanti) 130 MG/18ML IV 130 mg 130 mg, Intravenous, Once, 1 dose, On Wed01/27/21 at 1030, RoutineIndications:Cancer of larynx (CMS/HCC) New Bag 01/27/2021 10:21 AM EDT 130 mg 540 mL/hr CARBOplatin (Paraplatin) 750 mg in sodium chloride 0.9 % 250 mL chemo IVPB 750 mg (Target AUC = 5), Intravenous, at 740 mL/hr, Administer over 30 Minutes, Once, Hazardous Drug-Tier 1 Precautions. Dispose in BLACK Hazardous Waste Container. Chemotherapy: refer to [id number]., On Wed01/27/21 at 1300, For 1 dose, NS 250 mLIndications:Cancer of larynx (CMS/HCC) New Bag 01/27/2021 2:41 PM EDT 750 mg 740 mL/hr cetuximab (Erbitux) 892 mg chemo IVPB 892 mg (400 mg/m2 ? 2.23 m2 Treatment Plan BSA from Recorded weight), Intravenous, at 233 mL/hr, Administer over 2 Hours, Once, Monitor patient for 1 hour after first dose of Cetuximab Nurse to attach 0.22 micron filter on line Maximum rate of infusion: 10 mg per minute Do not shake, On Wed01/27/21 at 1100, For 1 dose, UndilutedIndications:Cancer of larynx (CMS/HCC) New Bag 01/27/2021 12:02 PM EDT 892 mg 233 mL/hr dexamethasone (Decadron) tablet 12 mg 12 mg, Oral, Once, 1 dose, On Wed01/27/21 at 1030, RoutineIndications:Cancer of larynx (CMS/HCC) Given 01/27/2021 10:21 AM EDT 12 mg diphenhydrAMINE (BENADryl) tablet 50 mg 50 mg, Oral, Once, 1 dose, On Wed01/27/21 at 1030, RoutineIndications:Cancer of larynx (CMS/HCC) Given 01/27/2021 10:21 AM EDT 50 mg ondansetron ODT (Zofran-ODT) disintegrating tablet 16 mg 16 mg, Oral, Once, 1 dose, On Wed01/27/21 at 1030, RoutineIndications:Cancer of larynx (CMS/HCC) Given 01/27/2021 10:21 AM EDT 16 mg documented in this encounter Additional Health Concerns Assessment Noted Time A fall risk assessment has been complete d for the patient 01/27/2021 9:51 AM EDT documented as of this encounter Care Teams Assembler Dry Cell And Battery Relationship Specialty Start Date End Date Michele Wright MD [address] [place] [address] PCP - General 10/11/20 Edgar Szymanski MD [id number] [place] [address] Radiation Oncologist Radiation Therapy 03/14/20 4 documented as of this encounter
--- OUTSIDE RECORDS SUMMARY | 2024-05-03 13:45 | XMS_ITS | Encounter Summary ---
Author Organization Healthcare Address [address] [place] [address] Care Team Providers Care Resident Care Aid Name Role Phone Michele Wright MD Primary Care Provider + [phone] Edgar Szymanski MD Unavailable [phone] Shun Hurst MD Unavailable [phone] Encounter Details Date Type Department Care Team (Latest Contact Info) Description 03/03/2021 Travel Social History Tobacco Use Types Packs/Day [...] Head, Neck & Respiratory 800 [facility], 2nd [place] [address] 07/17/2024 1:30 PM EST Appointment PAV G Radiology [address] [place] [address] 07/20/2024 2:50 PM EST Office Visit Pav CC Head, Neck & Respiratory [address] [place] [address] Divine Carpenter MD [address] [place] [address] documented as of this encounter Visit Diagnoses Not on filedocumented in this encounter Additional Health Concerns Assessment Noted Time A fall risk assessment has been complete d for the patient 03/03/2021 2:17 PM EDT documented as of this encounter Care Teams Resident Care Aid Relationship Specialty Start Date End Date Michele Wright MD [address] [place] [address] PCP - General 10/11/20 Edgar Szymanski MD [address] [facility] [address] [place] [address] Radiation Oncologist Radiation Therapy 03/14/20 4 Shun Hurst MD [address] [facility] [address] [place] [address] Surgeon Neurosurgery 02/24/21 documented as of this encounter
--- OUTSIDE RECORDS SUMMARY | 2024-05-03 13:45 | XMS_ITS | Encounter Summary ---
Author Organization Healthcare Address [address] [place] [address] Care Team Providers Care Medical Doctor Md Name Role Phone Michele Wright MD Primary Care Provider + [phone] Edgar Szymanski MD Unavailable [phone] Encounter Details Date Type Department Care Team (Late st Contact Info) Description 02/21/2021 Orders Only [facility] [address] [place] [address] Tamela Lockhart S, ASPHALT HEATER OPERATOR [address] [facility] [address] [place] [address] Encounter for preprocedure screening laboratory testing for [...] 800 [facility], 2nd [place] [address] 07/17/2024 1:30 PM EST Appointment PAV G Radiology [address] [place] [address] 07/20/2024 2:50 PM EST Office Visit Pav CC Head, Neck & Respiratory 800 [facility], 2nd [place] [address] Divine Carpenter MD 800 [facility] [address] [place] [address] documented as of this encounter Results * SARS CoV-2/COVID-19 by PCR (02/24/2021 10:56 AM EDT) Pathologist [facility] SARS CoV-2/COVID-1 9 RNA PCR Result Not Detected Not Detected 02/24/2021 7:38 PM EDT [facility] Swab Oropharyngeal structure / Unknown Non-blood Collection / Unknown 02/24/2021 10:56 AM EDT 02/24/2021 10:56 AM EDT Narrative [facility] - 02/24/2021 7:38 PM EDT This assay is for in [...] performed using the TaqPath COVID-19 assay, an CI-CIC-gasgv method. The limit of detection (LoD) for [...] clinical signs and symptoms consistent with COVID-19. Dave Santana MD LAB MICROBIOLOGY - GEN ERAL ORDERABLES Final Result [facility] [address] [place] [address] documented in this encounter Visit Diagnoses Diagnosis Encounter for preprocedure screening laboratory testing for COVID-19- Primary documented in this encounter Additional Health Concerns Assessment Noted Time A fall risk assessment has been complete d for the patient 02/17/2021 9:06 AM EDT documented as of this encounter Care Teams Medical Doctor Md Relationship Specialty Start Date End Date Michele Wright MD [address] [place] [address] PCP - General 10/11/20 Edgar Szymanski MD 800 [facility] [address] [place] [address] Radiation Oncologist Radiation Therapy 03/14/20 4 documented as of this encounter
--- OUTSIDE RECORDS SUMMARY | 2024-05-03 13:45 | XMS_ITS | Encounter Summary ---
Author Organization [facility] Address [address] [place] [id number] Care Team Providers Care Certified Nurse Operating Room Name Role Phone Michele Wright MD Primary Care Provider + [phone] Edgar Szymanski MD Unavailable [phone] Reason for Visit * Reason Comments Labs peripheral stick Encounter Details Date Type Department Care Team (Latest Contact Info) Description 02/17/2021 9:25 AM EDT Clinical Support [facility] [address] [place] [address] Cancer of larynx (CMS/HCC) (Primary Dx); Hypertension, unspecified type Social History Tobacco Use Types Packs/Day Years [...] [facility] [address] [facility] [place] [address] 07/17/2024 1:30 PM EST Appointment [facility] [address] [place] [address] 07/20/2024 2:50 PM EST Office Visit [facility] [address] [facility] [place] [address] Divine Carpenter MD [address] [facility] [address] [place] [address] documented as of this encounter Procedures Procedure Name Priority Date/Time Associated Diagnosis Comments CBC WITH AUTO DIFFERENTIAL Routine 02/17/2021 9:13 AM EDT Cancer of larynx (CMS/HCC) TSH Routine 02/17/2021 9:13 AM EDT Cancer of larynx (CMS/HCC) Hypertension, unspecified type MAGNESIUM, PLASMA Routine 02/17/2021 9:1 3 AM EDT Cancer of larynx (CMS/HCC) Hypertension, unspecified type COMPREHENSIVE METABOLIC PANEL, PLASMA Routine 02/17/2021 9:13 AM EDT Cancer of larynx (CMS/HCC) documented in this encounter Results * Magnesium (02/17/2021 9:13 AM EDT) Magnesium, Plasma 2.0 1.9 - 2.4 mg/dL 02/17/2021 10:57 AM EDT [facility] Blood Venous blood specimen / Unknown Venipuncture / Unknown 02/17/2021 9:13 AM EDT 02/17/2021 10:22 AM EDT Divine Carpenter MD LAB BLOOD ORDERABLES Final R esult [facility] [address] [place] [address] * Thyroid Stimulating Hormone, Plasma (02/17/2021 9:13 AM EDT) Pathologist [facility] Thyroid Stimulating Hormone, Plasma 1.84 0.40 - 4.20 uIU/mL 02/17/2021 10:57 AM EDT [facility] Blood Venous blood specimen / Unknown Venipuncture / Unknown 02/17/2021 9:13 AM EDT 02/17/2021 10:22 AM EDT Divine Carpenter MD LAB BLOOD ORDERABLES Final R esult [facility] [address] [place] [address] * (ABNORMAL) Comprehensive Metabolic Panel, Plasma (02/17/2021 9:13 AM EDT) Pathologist [facility] Glucose, Plasma 89 74 - 99 mg/dL 02/17/2021 10:57 AM EDT [facility] BUN, Plasma 10 7 - 21 mg/dL 02/17/2021 10:57 AM EDT [facility] Creatinine, Plasma 0.73(L) 0.80 - 1.30 mg/dL 02/17/2021 10:57 AM EDT [facility] BUN/Creatinine Ratio 14 02/17/2021 10:57 AM EDT [facility] Sodium, Plasma 140 136 - 145 mmol/L 02/17/2021 10:57 AM EDT [facility] Potassium, Plasma 4.4 3.7 - 4.8 mmol/L 02/17/2021 10:57 AM EDT [facility] Chloride, Plasma 103 97 - 107 mmol/L 02/17/2021 10:57 AM EDT [facility] CO2, Plasma 29 22 - 29 mmol/L 02/17/2021 10:57 AM EDT [facility] Anion Gap 8 6 - 16 mmol/L 02/17/2021 10:57 AM EDT [facility] Total Calcium, Plasma 9.1 8.9 - 10.2 mg/dL 02/17/2021 10:57 AM EDT [facility] Total Protein 6.6 6.3 - 7.9 g/dL 02/17/2021 10:57 AM EDT [facility] Albumin, Plasma 3.9 3.5 - 5.2 g/dL 02/17/2021 10:57 AM EDT [facility] AST, Plasma 14 12 - 40 U/L 02/17/2021 10:57 AM EDT [facility] ALT, Plasma 9(L) 11 - 41 U/L 02/17/2021 10:57 AM EDT [facility] Alkaline Phosphatase, Plasma 81 40 - 115 U/L 02/17/2021 10:57 AM EDT [facility] Total Bilirubin, Plasma 0.4 0.2 - 1.1 mg/dL 02/17/2021 10:57 AM EDT [facility] eGFR >60 >60 mL/min/1.7 3m*2 02/17/2021 10:57 AM EDT [facility] Comment:eGFR = estimated GFR ; eGFR units = mL/min/1.73 sq meters Chronic Kidney Disease is considered if eGFR <60 mL/min/1.73 sq meters Kidney failure is considered if eGFR is <15 mL/min/1.73 sq meters. eGFR assumes steady state plasma creatinine concentration; not applicable if renal function is rapidly changing or patient is on dialysis. eGFR, if AFR/AM >60 >60 mL/min/1.7 3m*2 02/17/2021 10:57 AM EDT [facility] Comment:eGFR = estimated GFR [...] blood specimen / Unknown Venipuncture / Unknown 02/17/2021 9:13 AM EDT 02/17/2021 10:22 AM EDT us Divine Carpenter MD LAB BLOOD ORDERABLES Final R esult [facility] [address] [place] [address] * (ABNORMAL) CBC and Differential (02/17/2021 9:13 AM EDT) WBC Count 4.03 3.70 - 10.30 10*3/uL LAB HEMATOLOGY METHOD 02/17/2021 10:34 AM EDT [facility] RBC Count 4.73 4.60 - 6.10 10*6/uL LAB HEMATOLOGY METHOD 02/17/2021 10:34 AM EDT [facility] HGB 13.3(L) 13.7 - 17.5 g/dL LAB HEMATOLOGY METHOD 02/17/2021 10:34 AM EDT [facility] HCT 41.5 40.0 - 51.0 % LAB HEMATOLOGY METHOD 02/17/2021 10:34 AM EDT [facility] Platelet Count 107(L) 155 - 369 10*3/uL LAB HEMATOLOGY METHOD 02/17/2021 10:34 AM EDT [facility] MCV 88 79 - 98 fL LAB HEMATOLOGY METHOD 02/17/2021 10:34 AM EDT [facility] MCH 28.1 26.0 - 32.0 pg LAB HEMATOLOGY METHOD 02/17/2021 10:34 AM EDT [facility] MCHC 32.0 30.7 - 35.5 g/dL LAB HEMATOLOGY METHOD 02/17/2021 10:34 AM EDT [facility] RDW 13.5 11.5 - 14.5 % LAB HEMATOLOGY METHOD 02/17/2021 10:34 AM EDT [facility] MPV 11.1 8.8 - 12.5 fL LAB HEMATOLOGY METHOD 02/17/2021 10:34 AM EDT [facility] nRBC 0.0 <=0.0 per 100 WBCs LAB HEMATOLOGY METHOD 02/17/2021 10:34 AM EDT [facility] Differential Type Automated LAB HEMATOLOGY METHOD 02/17/2021 10:34 AM EDT [facility] Neutrophils % 78.0 % LAB HEMATOLOGY METHOD 02/17/2021 10:34 AM EDT [facility] Lymphocytes % 11.0 % LAB HEMATOLOGY METHOD 02/17/2021 10:34 AM EDT [facility] Monocytes % 10.0 % LAB HEMATOLOGY METHOD 02/17/2021 10:34 AM EDT [facility] Eosinophils % 1.0 % LAB HEMATOLOGY METHOD 02/17/2021 10:34 AM EDT [facility] Basophils % 0.0 % LAB HEMATOLOGY METHOD 02/17/2021 10:34 AM EDT [facility] Immature Granulocytes % 0.0 % LAB HEMATOLOGY METHOD 02/17/2021 10:34 AM EDT [facility] Neutrophils Absolute 3.13 1.60 - 6.10 10*3/uL LAB HEMATOLOGY METHOD 02/17/2021 10:34 AM EDT [facility] Lymphocytes Absolute 0.44(L) 1.20 - 3.90 10*3/uL LAB HEMATOLOGY METHOD 02/17/2021 10:34 AM EDT [facility] Monocytes Absolute 0.42 0.30 - 0.90 10*3/uL LAB HEMATOLOGY METHOD 02/17/2021 10:34 AM EDT [facility] Eosinophils Absolute 0.03 0.00 - 0.50 10*3/uL LAB HEMATOLOGY METHOD 02/17/2021 10:34 AM EDT [facility] Basophils Absolute 0.00 0.00 - 0.10 10*3/uL LAB HEMATOLOGY METHOD 02/17/2021 10:34 AM EDT [facility] Immature Granulocytes Absolute 0.01 0.00 - 0.06 10*3/uL LAB HEMATOLOGY METHOD 02/17/2021 10:34 AM EDT [facility] Blood Venous blood specimen / Unknown Venipuncture / Unknown 02/17/2021 9:13 AM EDT 02/17/2021 10:26 AM EDT Narrative [facility] - 02/17/2021 10:34 AM EDT Therapeutic decision making should be based on absolute values, rather than percentages. Divine Carpenter MD LAB BLOOD ORDERABLES Final R esult [facility] [address] [place] [address] documented in this encounter Visit Diagnoses Diagnosis 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, unspecified site Hypertension, unspecified type documented in this encounter Additional Health Concerns Assessment Noted Time A fall risk assessment has been complete d for the patient 02/17/2021 9:06 AM EDT documented as of this encounter Care Teams Certified Nurse Operating Room Relationship Specialty Start Date End Date Michele Wright MD [address] [place] [id number] PCP - General 10/11/20 Edgar Szymanski MD [address] [place] [address] Radiation Oncologist Radiation Therapy 03/14/20 4 documented as of this encounter
--- OUTSIDE RECORDS SUMMARY | 2024-05-03 13:46 | XMS_ITS | Encounter Summary ---
Author Organization [facility] Address [address] [place], [place] [id number] Care Team Providers Care Avionics Safety Inspector Name Role Phone Michele Wright MD Primary Care Provider + [phone] Edgar Szymanski MD Unavailable [phone] Reason for Visit * Reason Comments Follow-up Labs peripheral stick Encounter Details Date Type Department Care Team ([facility] Contact Info) Description 12/26/2020 12:00 PM EDT Office Visit Pav [facility] Head, Neck & Respiratory [address] [place] [address] Divine Carpenter MD 800 [facility] [address] [place] [address] Cancer of larynx (CMS/HCC) (Primary Dx); Neoplasm related pain; Dysphagia, pharyngeal; 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 Social [...] Sign Reading Time Taken Comments Blood Pressure 171/90 12/26/2020 12:05 PM EDT Pulse 50 12/26/2020 12:05 PM EDT Temperature 36.7 ??C (98.1 ??F) 12/26/2020 12:05 PM E DT Respiratory Rate 18 12/26/2020 12:05 PM EDT Oxygen Saturation 95% 12/26/2020 12:05 PM EDT Inhaled Oxygen Concentration - - Weight 107 kg (236 lb 12.4 oz) 12/26/2020 12:05 PM EDT Height 177 cm (5' 9.69 ) 12/26/2020 12:05 PM EDT Body Mass Index 34.28 12/26/2020 12:05 PM EDT documented in this encounter Miscellaneous Notes * Addendum Note - Lula Cee PharmD - 12/26/2020 12:00 PM EDTAddended by: LULA CEE on: 01/13/2021 08:32 AM Modules accepted: Orders * Progress Notes - Divine Carpenter MD - 12/26/2020 12:00 PM EDT MEDICAL ONCOLOGY FOLLOW-UP NOTE Patient Information Patient Name: Anibal Barreto Date of : 1965 REFERRING PHYSICIAN: Michele Wright MD Encounter Date: 12/26/2020 Treatment Diagnosis: Cancer Staging Cancer of larynx [...] on 10/14/2020 History of Present Illness: Anibal Barrteo is a 55 y.o. male who returns for followup of his Cancer of larynx ([facility]), Staging form: Larynx - Glottis, 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 He is s/p palliative radiation to the right chest wall, without much relief. He has new right ulnar neuropathy and fatigue. Hedenies fever, or chills, dysuria, hematuria, constipation, melena, diarrhea, hematochezia, hematemesis, abdominal pain, but does have shortness of breath, cough, sputum production. 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 Cancer of larynx ([facility]/HCC) 02/19/2017 Cancer Staged Staging form: Larynx - Glottis, AJCC 8th Edition, Clinical stage from 02/19/2017: Stage ZULAY (cT3, cN2c, cM0) - Signed by Divine Carpenter MD on 10/14/2020 03/18/2017 Initial Diagnosis Cancer of larynx ([facility]/HCC) 03/22/2018 Cancer Staged Staging form: Larynx - Glottis, AJCC 8th Edition, Pathologic stage from 03/22/2018: Stage III (rpT3, pN0, cM0) - Signed by Divine Carpenter MD on 10/14/2020 11/21/2019 Cancer Staged Staging form: Larynx - Glottis, AJCC 8th Edition, Pathologic stage from 11/21/2019: Stage IVC (rpTX,pNX, pM1) - Signed by Divine Carpenter MD on 10/14/2020 03/14/2020 - 11/24/2020 Research Study Participant [id number]: Pembrolizumab Every 42 Days Every 84 Days Plan Provider: Divine Carpenter MD Treatment goal: Palliative Line of treatment: Second Line Associated studies: Priming Immunotherapy in Advanced Disease with Radiation 11/26/2020 - Radiation Therapy The patient saw No care retail sales teammate to display for radiation treatment. This is the current list ofradiation treatment: Radiation Treatments No radiation treatments to show. (Treatments may have been administered in another system.) 12/09/2020 - Radiation Therapy The patient saw No care retail sales teammate to display for radiation treatment. This is the current list ofradiation treatment: Radiation Treatments No radiation treatments to show. (Treatments may have been administered in another system.) 01/06/2021 - Chemotherapy cetuximab (Erbitux) 892 mg chemo [...] Radiation Therapy The patient saw No care retail sales teammate to display for radiation treatment. This is the current list ofradiation treatment: Radiation Treatments No radiation treatments to show. (Treatments may have been administered in another system.) 11/26/2020 Initial Diagnosis Secondary malignant neoplasm of chest wall (CMS/HCC) 12/09/2020 - Radiation Therapy The patient saw No care retail sales teammate to display for radiation treatment. This is the current list ofradiation treatment: Radiation Treatments No radiation treatments to show. (Treatments may have been administered in another system.) Problem List and Medications Reviewed in this encounter by me personally Objective Performance Status 1: Restricted in physically strenuous activity but ambulatory and able to do light work Blood pressure 171/90, pulse 50, temperature 36.7 ??C (98.1 ??F), temperature source Oral, resp. rate 18, height 1.77 m (5' 9.69 ), weight 107 kg (236 lb 12.4 oz), SpO2 95 %. EXAM Physical Exam [...] baseline. LABORATORIES STUDIES: reviewed by me personally CBC WBC 7.42 Hgb 15.5 PLT 172 HCT 48.0 Lab Results Component Value Date NEUTROABS 5.80 11/25/2020 BMPL Na 138 Cl 102 BUN 22 Gluc 106 K 4.6 Co2 28 Creat 0.96 LIVER FUNCTION TESTING Tot Prot 7.3 AST 20 Tot bili 0.9 ALT 22 Alkphos 78 Ca 9.4 RADIOLOGY: I visualized the recent imaging below and discussed the current radiology findings with the patientin detail and gave copies of the reports to the patient and answered all questions. CT Soft Tissue Neck w IV Contrast Result Date: 11/21/2020 Impression: Extensive postsurgical and radiation effects as detailed above. No tumor recurrence or cervical adenopathy. CT Chest w IV Contrast Result Date: 11/21/2020 Impression: Right chest wall/axillary mass, increased from prior, worrisome for primary or metastatic malignancy. Tissue confirmation recommended. Assessment/Plan 1. Cancer management : Cancer of larynx (CMS/HCC), Staging form: Larynx - Glottis, AJCC 8th Edition, Pathologic: Stage IVC {This represents a life threatening illness for which continued cancer treatment is indicated. - I updated the plan of care: this represents confirmed PD s/p palliative radiation and planned forT- and C- spine Mri by Dr. Szymanski to assess causes for the left arm neruopathy. I have discussedthis with Dr. Szymanski - He was a screen fail for HN-30, and HN-35 is not yet open, so we will proceed with Carobplatin/Cetuximab, as he had good response 3 years ago with cetuxmiab radiation. I will not include 5-FU due to his [...] all questions. I gave new scripts for Aclovate, doxycycline and Decadron andCompazine 10mg q6hr prn nausea. - The selection, dosing and administration of [...] toxicities in patients with cancer - RTC on 01/06/21 for C1 Carbo cetux 2. Pain related to neoplasm: chronic with worsening pain and right neuropathy - I have evaluated the prescription pain medications currently in use and refilled MS Contin 60 mg bid and oxycodone 30 mg - 60 mg q6hr prn - The patient continues to experience pain directly related to their neoplasm requiring monitoring and adjustments in dosage and frequency of narcotic and adjunctive medications by me. KEVAN report reviewed and will be reviewed periodically. 3. Monitoring for the emergence of hypothyroidism Lab Results Component Value Date TSH 1.15 10/14/2020 - Continue levothyroxine and refilled at current dose - This will be periodically monitored as we continue therapy, due to the potential for worsening ofthyroid function from radiation and systemic cancer therapy. 4. Regimen Related Toxicity: Chemotherapy Induced Nausea: Continue ondansetron, compazine and will monitor for nausea and vomiting. Divine Carpenter MD [facility]IR[facility] [address] [place] [phone] Michele Wright MD Orders Placed This Encounter Procedures ??? CBC and differential ??? Comprehensive metabolic panel ??? Magnesium ??? CBC and differential ??? Comprehensive metabolic panel ??? Magnesium ??? CBC and differential ??? Comprehensive metabolic panel ??? Magnesium * Progress Notes - Sowmya Lipscomb, PharmD - 12/26/2020 12:00 PM EDT Pharmacy Hemtatology/Oncology Patient Education Note Anibal Barreto is a 55 y.o. male with Stage IV Supraglottic Larynx SCC being treated with Carboplatin/Cetuximab. The patient has prior experience with chemotherapy and has no particular concerns at this time. Common and clinically significant adverse effects of this regimen were covered priorto chemotherapy initiation. This includes, but is not limited to, allergic reactions, alopecia, myelosuppression, N/V/D, fatigue, neuropathies and myalgia. S/sxns of bleeding and infection precautions were discussed to ensure understanding. The patient was very participatory in the counseling process, asking numerous questions. At this time they are able to verbalize understanding and has no further questions. Provided with written and verbal information. Sowmya Lipscomb PharmD Cosigned by Lula Cee PharmD at 12/26/2020 1:42 PM EDT Associated attestation - Lula Cee PharmD - 12/26/2020 1:42 PM EDT Lula Cee PharmD, [facility] Oncology Clinical Pharmacist * Progress Notes - Lula Cee PharmD - 12/26/2020 12:00 PM EDT Pharmacy Hemtatology/Oncology Follow-up Treatment Plan Note Anibal Barreto is [...] to carbo/cetux, no 5FU d/t predicted tolerability Treatment plan reviewed: carboplatin/cetuximab C1 Dosing Wt: 107 kg Today's Wt: 107 kg Dosing Ht: 177 cm DosingBSA: 2.23 m2 Recent Labs - update carbo calculator with day of treatment labs Lab Results Component Value Date WBC 7.42 11/25/2020 HGB 15.5 11/25/2020 HCT 48.0 11/25/2020 MCV 89 11/25/2020 PLT 172 11/25/2020 Lab Results Component Value Date GLUCOSE 106 (H) 11/25/2020 CALCIUM 9.4 11/25/2020 NA 138 11/25/2020 K 4.6 11/25/2020 CO2 28 11/25/2020 CL 102 11/25/2020 BUN 22 (H) 11/25/2020 CREATININE 0.96 11/25/2020 Lab Results Component Value Date ALT 22 11/25/2020 AST 20 11/25/2020 ALKPHOS 78 11/25/2020 BILITOT 0.9 11/25/2020 Lab Results Component Value Date NEUTROABS 5.80 11/25/2020 Lab Results Component Value Date MG 2.0 11/22/2019 Lab Results Component Value Date TSH 1.15 10/14/2020 No results found for: UTPCR Vitals: Visit Vitals BP 171/90 (BP Location: Left arm) Pulse 50 Temp 36.7 ??C (98.1 ??F) (Oral) Resp 18 Study Patient: No Chemotherapy Regimen Carboplatin AUC 5 IV D1 Cetuximab 400 mg/m2 (892) x 1, then 250 mg/m2 (558mg) IV weekly [x] No dose adjustments made Current Treatment Plan History Carbo/cetux C1: 01/13/21 Prior Chemotherapy History Pembrolizumab (Mulit-20 study) C1: 03/14 C2: 04/04 C3: 04/25 (transition to 400 mg [id number]) C4: 06/03/20 C5: 07/22/20 C6: 09/02/20 C7: 10/14/20 Patient will return to clinic in 3 weeks. Will follow-up at that time. Pharmacist Attestation: Lula Cee, PharmD 01/13/2021 8:21 AM documented in this encounter Plan of Treatment Upcoming Encounters Date Type Department Care Team (Late st Contact Info) Description 07/17/2024 12:30 PM EST Clinical Support Pav CC Head, Neck & Respiratory [address] [facility], [address]nd [place] [address] 07/17/2024 1:30 PM EST Appointment [facility] G Radiology [address] [place] [address] 07/20/2024 2:50 PM EST Office Visit Pav CC Head, Neck & Respiratory [address] [facility], [address]nd [place] [address] Divine Carpenter MD [address] [facility] [address] [place] [address] documented as of this encounter Results * Magnesium (01/27/2021 9:12 AM EDT) Magnesium, Plasma 2.0 1.9 - 2.4 mg/dL 01/27/2021 10:03 AM EDT [facility] Blood Venous blood specimen / Unknown Venipuncture / Unknown 01/27/2021 9:12 AM EDT 01/27/2021 9:31 AM EDT Divine Carpenter MD LAB BLOOD ORDERABLES Final R esult [facility] [address] [place] [address] * (ABNORMAL) Comprehensive metabolic panel (01/27/2021 9:12 AM EDT) Glucose, Plasma 89 74 - 99 mg/dL 01/27/2021 10:03 AM EDT [facility] BUN, Plasma 17 7 - 21 mg/dL 01/27/2021 10:03 AM EDT [facility] Creatinine, Plasma 0.82 0.80 - 1.30 mg/dL 01/27/2021 10:03 AM [facility] BUN/Creatinine Ratio 21 01/27/2021 10:03 AM [facility] Sodium, Plasma 140 136 - 145 mmol/L 01/27/2021 10:03 AM [facility] Potassium, Plasma 4.5 3.7 - 4.8 mmol/L 01/27/2021 10:03 AM [facility] Chloride, Plasma 104 97 - 107 mmol/L 01/27/2021 10:03 AM [facility] CO2, Plasma 27 22 - 29 mmol/L 01/27/2021 10:03 AM [facility] Anion Gap 9 6 - 16 mmol/L 01/27/2021 10:03 AM [facility] Total Calcium, Plasma 9.6 8.9 - 10.2 mg/dL 01/27/2021 10:03 AM [facility] Total Protein 6.6 6.3 - 7.9 g/dL 01/27/2021 10:03 AM [facility] Albumin, Plasma 4.2 3.5 - 5.2 g/dL 01/27/2021 10:03 AM [facility] AST, Plasma 11(L) 12 - 40 U/L 01/27/2021 10:03 AM [facility] ALT, Plasma 8(L) 11 - 41 U/L 01/27/2021 10:03 AM [facility] Alkaline Phosphatase, Plasma 74 40 - 115 U/L 01/27/2021 10:03 AM [facility] Total Bilirubin, Plasma 0.5 0.2 - 1.1 mg/dL 01/27/2021 10:03 AM [facility] eGFR >60 >60 mL/min/1.7 3m*2 01/27/2021 10:03 AM [facility] Comment:eGFR = estimated GFR ; [...] >60 >60 mL/min/1.7 3m*2 01/27/2021 10:03 AM [facility] Comment:eGFR = estimated GFR ; [...] MD LAB BLOOD ORDERABLES Final R esult [facility] [address] [place] [id number] * (ABNORMAL) CBC and differential (01/27/2021 9:12 AM EDT) WBC Count 5.51 3.70 - 10.30 10*3/uL LAB HEMATOLOGY METHOD 01/27/2021 9:46 AM EDT [facility] RBC Count 5.13 4.60 - 6.10 10*6/uL LAB HEMATOLOGY METHOD 01/27/2021 9:46 AM EDT [facility] HGB 14.5 13.7 - 17.5 g/dL LAB HEMATOLOGY METHOD 01/27/2021 9:46 AM EDT [facility] HCT 45.4 40.0 - 51.0 % LAB HEMATOLOGY METHOD 01/27/2021 9:46 AM EDT [facility] Platelet Count 169 155 - 369 10*3/uL LAB HEMATOLOGY METHOD 01/27/2021 9:46 AM EDT [facility] MCV 89 79 - 98 fL LAB HEMATOLOGY METHOD 01/27/2021 9:46 AM EDT [facility] MCH 28.3 26.0 - 32.0 pg LAB HEMATOLOGY METHOD 01/27/2021 9:46 AM EDT [facility] MCHC 31.9 30.7 - 35.5 g/dL LAB HEMATOLOGY METHOD 01/27/2021 9:46 AM EDT [facility] RDW 14.0 11.5 - 14.5 % LAB HEMATOLOGY METHOD 01/27/2021 9:46 AM EDT [facility] MPV 10.6 8.8 - 12.5 fL LAB HEMATOLOGY METHOD 01/27/2021 9:46 AM EDT [facility] nRBC 0.0 <=0.0 per 100 WBCs LAB HEMATOLOGY METHOD 01/27/2021 9:46 AM EDT [facility] Differential Type Automated LAB HEMATOLOGY METHOD 01/27/2021 9:46 AM EDT [facility] Neutrophils % 70.0 % LAB HEMATOLOGY METHOD 01/27/2021 9:46 AM EDT [facility] Lymphocytes % 12.0 % LAB HEMATOLOGY METHOD 01/27/2021 9:46 AM EDT [facility] Monocytes % 14.0 % LAB HEMATOLOGY METHOD 01/27/2021 9:46 AM EDT [facility] Eosinophils % 3.0 % LAB HEMATOLOGY METHOD 01/27/2021 9:46 AM EDT [facility] Basophils % 1.0 % LAB HEMATOLOGY METHOD 01/27/2021 9:46 AM EDT [facility] Immature Granulocytes % 0.0 % LAB HEMATOLOGY METHOD 01/27/2021 9:46 AM EDT [facility] Neutrophils Absolute 3.90 1.60 - 6.10 10*3/uL LAB HEMATOLOGY METHOD 01/27/2021 9:46 AM EDT [facility] Lymphocytes Absolute 0.65(L) 1.20 - 3.90 10*3/uL LAB HEMATOLOGY METHOD 01/27/2021 9:46 AM EDT [facility] Monocytes Absolute 0.77 0.30 - 0.90 10*3/uL LAB HEMATOLOGY METHOD 01/27/2021 9:46 AM EDT [facility] Eosinophils Absolute 0.14 0.00 - 0.50 10*3/uL LAB HEMATOLOGY METHOD 01/27/2021 9:46 AM EDT [facility] Basophils Absolute 0.03 0.00 - 0.10 10*3/uL LAB HEMATOLOGY METHOD 01/27/2021 9:46 AM EDT [facility] Immature Granulocytes Absolute 0.02 0.00 - 0.06 10*3/uL LAB HEMATOLOGY METHOD 01/27/2021 9:46 AM EDT [facility] Blood Venous blood specimen / Unknown Venipuncture / Unknown 01/27/2021 9:12 AM EDT 01/27/2021 9:30 AM EDT [facility] - 01/27/2021 9:46 AM EDT Therapeutic decision making should be based on absolute values, rather than percentages. 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
--- OUTSIDE RECORDS SUMMARY | 2024-05-03 13:46 | XMS_ITS | Encounter Summary ---
Author Organization [facility] Address [address] [place] [address] Care Team Providers Care Guide Cruise Name Role Phone Michele Wright MD Primary Care Provider [phone] Edgar Szymanski MD Unavailable [phone] Reason for Visit * Radiation Therapy (Routine) - Closed Specialty Diagnoses / Procedures Referred By Contac t Referred To Contact Radiation Oncology Diagnoses 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) Procedures Rad Onc Intent to Treat Edgar Szymanski MD [address] [facility] [address] [place] [address] Phone: tel: fax: [facility] Radiation [id number] [place] [address] Phone: tel: fax: Referral ID Status Reason Start Date Expiration Date V isits Requested Visits Authorized [id number] Closed Perform Procedure 11/26/2020 05/25/2021 1 10 Encounter Details Date Type Department Care Team (Latest Contact Info) Description 12/18/2020 10:26 AM EDT - 12/18/2020 11:59 PM EDT Hospital Encounter [facility] Radiation [address] [address] Discharge Disposition: Still a Patient Social History Tobacco Use Types Packs/Day Years Used Date Smoking Tobacco: Passive Smo ke Exposure - Never Smoker Smokeless Tobacco: Never Alcohol Use Standard Drinks/Week Comments Not Currently 0 (1 standard drink = 0.6 oz pure alcohol) Alcoholic Drinks/day: Quit consuming alcohol in remote past PHQ-2 Answer Date Recorded Patient Health Questionnaire-2 Score 0 11/25/2020 Sex and Gender Information Value Date Recorded [...] have Coronavirus / COVID-19? No / Unsure 11/25/2020 9:30 AM EDT documented as of this encounter Medications at Time of Discharge ALPRAZolam (Xanax) 1 MG tablet 1 tab(s) orally 2 times a day, As Needed 09/02/2020 2 candesartan-hydr oCHLOROthiazide (Atacand HCT) 32-12.5 MG tablet 12/23/2016 1 gabapentin (Neurontin) 600 MG tablet Take 1 tablet (600 mg total) by mouth 4 (four) times a day. 120 tablet 1 11/25/2020 1 ibuprofen (Childrens Ibuprofen) 100 MG/5ML suspension 30 milliliter(s) orally every 6 hours, As Needed 10/14/2020 1 levothyroxine (Synthroid, Levoxyl) 150 MCG tablet TAKE 1 TABLET DAILY. 03/29/2018 2 Lidocaine 2 % gel Apply 1 application topically 5 (five) times a day. 30 g 2 11/25/2020 1 lisinopril 5 MG tablet 11/05/2020 1 LISINOPRIL PO 1 loratadine (Claritin) 10 MG tablet 1 tab(s) orally once a day 06/03/2020 1 metoprolol tartrate (Lopressor) 50 MG tablet 1 tab(s) orally 2 times a day 2 morphine CR (MS Contin) 60 MG 12 hr tablet Take 1 tablet (60 mg total) by mouth every 12 (twelve) hours. Do not crush, chew, or split. 60 tablet 11/25/2020 1 omeprazole (PriLOSEC) [address] capsule TAKE 1 CAPSULE ONCE A DAY 11/19/2017 1 oxyCODONE (Roxicodone) 30 MG immediate release tablet Take 1-2 tablets (30-60 mg total) by mouth every 6 (six) hours if needed for severe pain. For cancer related pain 200 tablet 11/25/2020 1 predniSONE (Deltasone) 10 MG tablet 06/24/2020 1 documented as of this encounter Plan of Treatment Upcoming Encounters Date Type Department Care Team (Late st Contact Info) Description 07/17/2024 12:30 PM EST Clinical Support [facility] Head, Neck & Respiratory [address] [facility], [address] [place] [address] 07/17/2024 1:30 PM EST Appointment [facility] Radiology [address] [place] [address] 07/20/2024 2:50 PM EST Office Visit Pav CC Head, Neck & Respiratory [address] [facility], [address] [place] [address] Divine Carpenter MD 800 [facility] [address] [place] [address] documented as of this encounter Visit Diagnoses Not on filedocumented in this encounter Additional Health Concerns Assessment Noted Time A fall risk assessment has been complete d for the patient 11/26/2020 2:59 PM EDT documented as of this encounter Care Teams Guide Cruise Relationship Specialty Start Date End Date Michele Wright MD [address] [place] [address] PCP - General 10/11/20 Edgar Szymanski MD [address] [facility] [address] [place] [address] Radiation Oncologist Radiation Therapy 03/14/20 4 documented as of this encounter
--- OUTSIDE RECORDS SUMMARY | 2024-05-03 13:46 | XMS_ITS | Encounter Summary ---
Author Organization Healthcare Address [address] [place] [address] Care Team Providers Care Barrel Assembler Helper Name Role Phone Michele Wright MD Primary Care Provider + [phone] Edgar Szymanski MD Unavailable [phone] Encounter Details Date Type Department Care Team (Late st Contact Info) Description 12/20/2020 Orders Only [facility] [id number] [place] [address] Radiation Oncology, Physician, [address] [place], [place] [id number] Social History Tobacco Use Types Packs/Day Years [...] & Respiratory [address] [place] [address] 07/17/2024 1:30 PM EST Appointment [facility]iology [address] [place] [address] 07/20/2024 2:50 PM EST Office Visit [facility] Head, Neck & Respiratory 800 [facility], 2nd [place] [address] Divine Carpenter MD 800 [facility] [address] [place] [address] documented as of this encounter Procedures Procedure Name Priority Date/Time Associated Diagnosis Comments RAD ONC ARIA COURSE SUMMARY Routine 12/20/2020 3:31 PM EDT documented in this encounter Results * Rad Onc Aria Course Summary (12/20/2020 3:31 PM EDT) Course ID C3 ARIA RADIATION ONCOLOGY Course Intent Palliative ARIA RADIATION ONCOLOGY Course Start Date 12/03/2020 12:19 PM ARIA RADIATION ONCOLOGY Course End Date 12/20/2020 3:31 PM ARIA RADIATION ONCOLOGY Course First Treatment Date 12/09/2020 11:43 AM ARIA RADIATION ONCOLOGY Course Last Treatment Date 12/20/2020 11:11 AM ARIA RADIATION ONCOLOGY Course Elapsed Days 11 ARIA RADIATION ONCOLOGY Reference Point ID Right Axilla ARIA RADIATION ONCOLOGY Reference Point Dosage Given to Date 30 Gy ARIA RADIATION ONCOLOGY Plan ID [id number] RTAx ARIA RADIATION ONCOLOGY Plan Name [id number] RTAx ARIA RADIATION ONCOLOGY Plan Fractions Treated to Date 10 ARIA RADIATION ONCOLOGY Plan Total Fractions Prescribed 10 ARIA RADIATION ONCOLOGY Plan Prescribed Dose Per Fraction 3 Gy ARIA RADIATION ONCOLOGY Plan Total Prescribed Dose 3,000 CGy ARIA RADIATION ONCOLOGY Plan Primary Reference Point Right Axilla ARIA RADIATION ONCOLOGY 12/20/2020 3:31 PM EDT Physician Radiation Oncology RADIATION ONCOLO GY ORDERABLES Final Result ARIA RADIATION ONCOLOGY documented in this encounter Visit Diagnoses Not on filedocumented in this encounter Additional Health Concerns Assessment Noted Time A fall risk assessment has been complete d for the patient 11/26/2020 2:59 PM EDT documented as of this encounter Care Teams Barrel Assembler Helper Relationship Specialty Start Date End Date Michele Wright MD [address] [place] [address] PCP - General 10/11/20 Edgar Szymanski MD [id number] [place] [address] Radiation Oncologist Radiation Therapy 03/14/20 4 documented as of this encounter
--- OUTSIDE RECORDS SUMMARY | 2024-05-03 13:46 | XMS_ITS | Encounter Summary ---
Author Organization Healthcare Address [address] [place] [address] Care Team Providers Care Drafter Landscape Name Role Phone Michele Wright MD Primary Care Provider + [phone] Edgar Szymanski MD Unavailable [phone] Encounter Details Date Type Department Care Team (Late st Contact Info) Description 12/12/2020 Orders Only [facility] [id number] [place] [address] Radiation Oncology, Physician, [address] [place], [place] [phone] Social History Tobacco Use Types Packs/Day Years [...] [address] , [address] [place] [address] 07/17/2024 1:30 PM EST Appointment [facility]iology [address] [place] [address] 07/20/2024 2:50 PM EST Office Visit Pav CC Head, Neck & Respiratory 800 [facility], [address]nd [place] [address] Divine Carpenter MD 800 [facility] [address] [place] [address] documented as of this encounter Procedures Procedure Name Priority Date/Time Associated Diagnosis Comments RAD ONC ARIA SESSION SUMMARY Routine 12/12/2020 11:11 AM EDT documented in this encounter Results * Rad Onc Aria Session Summary (12/12/2020 11:11 AM EDT) Course ID C3 ARIA RADIATION ONCOLOGY Course Intent Palliative ARIA RADIATION ONCOLOGY Course Start Date 12/03/2020 12:19 PM ARIA RADIATION ONCOLOGY Course First Treatment Date 12/09/2020 11:43 AM ARIA RADIATION ONCOLOGY Course Last Treatment Date 12/12/2020 11:10 AM ARIA RADIATION ONCOLOGY Course Elapsed Days 3 ARIA RADIATION ONCOLOGY Reference Point ID Right Axilla ARIA RADIATION ONCOLOGY Reference Point Dosage Given to Date 12 Gy ARIA RADIATION ONCOLOGY Reference Point Session Dosage Given 3 Gy ARIA RADIATION ONCOLOGY Plan ID [id number] RTAx ARIA RADIATION ONCOLOGY Plan Name Right Axilla Obliques ARIA RADIATION ONCOLOGY Plan Fractions Treated to Date 4 ARIA RADIATION ONCOLOGY Plan Total Fractions Prescribed 10 ARIA RADIATION ONCOLOGY Plan Prescribed Dose Per Fraction 3 Gy ARIA RADIATION ONCOLOGY Plan Total Prescribed Dose 3,000 CGy ARIA RADIATION ONCOLOGY Plan Primary Reference Point Right Axilla ARIA RADIATION ONCOLOGY 12/12/2020 11:1 1 AM EDT Physician Radiation Oncology RADIATION ONCOLO GY ORDERABLES Final Result ARIA RADIATION ONCOLOGY documented in this encounter Visit Diagnoses Not on filedocumented in this encounter Additional Health Concerns Assessment Noted Time A fall risk assessment has been complete d for the patient 11/26/2020 2:59 PM EDT documented as of this encounter Care Teams Drafter Landscape Relationship Specialty Start Date End Date Michele Wright MD [address] [id number] PCP - General 10/11/20 Edgar Szymanski MD [address] [address] Radiation Oncologist Radiation Therapy 03/14/20 4 documented as of this encounter
--- OUTSIDE RECORDS SUMMARY | 2024-05-03 13:46 | XMS_ITS | Encounter Summary ---
Author Organization Healthcare Address [address] [place] [address] Care Team Providers Care Academic Affairs Coordinator Name Role Phone Michele Wright MD Primary Care Provider + [phone] Edgar Szymanski MD Unavailable [phone] Encounter Details Date Type Department Care Team (Late st Contact Info) Description 12/17/2020 Orders Only [facility] [id number] [place] [address] Radiation Oncology, Physician, [address] [place], [place] [phone] Social History Tobacco Use Types Packs/Day Years [...] & Respiratory [address] [place] [address] 07/17/2024 1:30 PM EST Appointment [facility]iology [address] [place] [address] 07/20/2024 2:50 PM EST Office Visit [facility] Head, Neck & Respiratory 800 [facility], [address]nd [place] [address] Divine Carpenter MD 800 [facility] [address] [place] [address] documented as of this encounter Procedures Procedure Name Priority Date/Time Associated Diagnosis Comments RAD ONC ARIA SESSION SUMMARY Routine 12/17/2020 12:08 PM EDT documented in this encounter Results * Rad Onc Aria Session Summary (12/17/2020 12:08 PM EDT) Course ID C3 ARIA RADIATION ONCOLOGY Course Intent Palliative ARIA RADIATION ONCOLOGY Course Start Date 12/03/2020 12:19 PM ARIA RADIATION ONCOLOGY Course First Treatment Date 12/09/2020 11:43 AM ARIA RADIATION ONCOLOGY Course Last Treatment Date 12/17/2020 12:07 PM ARIA RADIATION ONCOLOGY Course Elapsed Days 8 ARIA RADIATION ONCOLOGY Reference Point ID Right Axilla ARIA RADIATION ONCOLOGY Reference Point Dosage Given to Date 21 Gy ARIA RADIATION ONCOLOGY Reference Point Session Dosage Given 3 Gy ARIA RADIATION ONCOLOGY Plan ID [id number] RTAx ARIA RADIATION ONCOLOGY Plan Name Right Axilla Obliques ARIA RADIATION ONCOLOGY Plan Fractions Treated to Date 7 ARIA RADIATION ONCOLOGY Plan Total Fractions Prescribed 10 ARIA RADIATION ONCOLOGY Plan Prescribed Dose Per Fraction 3 Gy ARIA RADIATION ONCOLOGY Plan Total Prescribed Dose 3,000 CGy ARIA RADIATION ONCOLOGY Plan Primary Reference Point Right Axilla ARIA RADIATION ONCOLOGY 12/17/2020 12:0 8 PM EDT Physician Radiation Oncology RADIATION ONCOLO GY ORDERABLES Final Result ARIA RADIATION ONCOLOGY documented in this encounter Visit Diagnoses Not on filedocumented in this encounter Additional Health Concerns Assessment Noted Time A fall risk assessment has been complete d for the patient 11/26/2020 2:59 PM EDT documented as of this encounter Care Teams Academic Affairs Coordinator Relationship Specialty Start Date End Date Michele Wright MD [address] [id number] PCP - General 10/11/20 Edgar Szymanski MD [address] [address] Radiation Oncologist Radiation Therapy 03/14/20 4 documented as of this encounter
--- OUTSIDE RECORDS SUMMARY | 2024-05-03 13:46 | XMS_ITS | Encounter Summary ---
Author Organization Healthcare Address [address] [place] [address] Care Team Providers Care Calibration Checker Name Role Phone Michele Wright MD Primary Care Provider + [phone] Edgar Szymanski MD Unavailable [phone] Encounter Details Date Type Department Care Team (Late st Contact Info) Description 12/20/2020 Orders Only [facility] [id number] [place] [address] Radiation Oncology, Physician, [address] [place], [place] [phone] Social History Tobacco Use Types Packs/Day Years [...] & Respiratory [address] [place] [address] 07/17/2024 1:30 PM EST Appointment [facility] Radiology [address] [place] [address] 07/20/2024 2:50 PM EST Office Visit [facility] CC Head, Neck & Respiratory 800 [facility], [address]nd [place] [address] Divine Carpenter MD 800 [facility] [address] [place] [address] documented as of this encounter Procedures Procedure Name Priority Date/Time Associated Diagnosis Comments RAD ONC ARIA SESSION SUMMARY Routine 12/20/2020 11:12 AM EDT documented in this encounter Results * Rad Onc Aria Session Summary (12/20/2020 11:12 AM EDT) Course ID C3 ARIA RADIATION [...] to Date 30 Gy ARIA RADIATION ONCOLOGY Reference Point Session [...] Point Right Axilla ARIA RADIATION ONCOLOGY 12/20/2020 11:1 2 AM EDT Physician Radiation Oncology RADIATION ONCOLO GY ORDERABLES Final Result ARIA RADIATION ONCOLOGY documented in this encounter Visit Diagnoses Not on filedocumented in this encounter Additional Health Concerns Assessment Noted Time A fall risk assessment has been complete d for the patient 11/26/2020 2:59 PM EDT documented as of this encounter Care Teams Calibration Checker Relationship Specialty Start Date End Date Michele Wright MD [address] [phone] PCP - General 10/11/20 Edgar Szymanski MD [address] [address] Radiation Oncologist Radiation Therapy 03/14/20 4 documented as of this encounter
--- OUTSIDE RECORDS SUMMARY | 2024-05-03 13:46 | XMS_ITS | Encounter Summary ---
Author Organization Healthcare Address [address] [place] [address] Care Team Providers Care Returns Processor Name Role Phone Michele Wright MD Primary Care Provider + [phone] Edgar Szymanski MD Unavailable [phone] Encounter Details Date Type Department Care Team (Late st Contact Info) Description 12/11/2020 Orders Only [facility]iation [id number] [place] [address] Radiation Oncology, Physician, [address] [place], [place] [phone] Social History Tobacco Use Types Packs/Day Years [...] & Respiratory [address] [place] [address] 07/17/2024 1:30 PM EST Appointment [facility] Radiology [address] [place] [address] 07/20/2024 2:50 PM EST Office Visit Pav CC Head, Neck & Respiratory 800 [facility], [address]nd [place] [address] Divine Carpenter MD 800 [facility] [address] [place] [address] documented as of this encounter Procedures Procedure Name Priority Date/Time Associated Diagnosis Comments RAD ONC ARIA SESSION SUMMARY Routine 12/11/2020 11:44 AM EDT documented in this encounter Results * Rad Onc Aria Session Summary (12/11/2020 11:44 AM EDT) Course ID C3 ARIA RADIATION ONCOLOGY Course Intent Palliative ARIA RADIATION ONCOLOGY Course Start Date 12/03/2020 12:19 PM ARIA RADIATION ONCOLOGY Course First Treatment Date 12/09/2020 11:43 AM ARIA RADIATION ONCOLOGY Course Last Treatment Date 12/11/2020 11:43 AM ARIA RADIATION ONCOLOGY Course Elapsed Days 2 ARIA RADIATION ONCOLOGY Reference Point ID Right Axilla ARIA RADIATION ONCOLOGY Reference Point Dosage Given to Date 9 Gy ARIA RADIATION ONCOLOGY Reference Point Session Dosage Given 3 Gy ARIA RADIATION ONCOLOGY Plan ID [id number] RTAx ARIA RADIATION ONCOLOGY Plan Name Right Axilla Obliques ARIA RADIATION ONCOLOGY Plan Fractions Treated to Date 3 ARIA RADIATION ONCOLOGY Plan Total Fractions Prescribed 10 ARIA RADIATION ONCOLOGY Plan Prescribed Dose Per Fraction 3 Gy ARIA RADIATION ONCOLOGY Plan Total Prescribed Dose 3,000 CGy ARIA RADIATION ONCOLOGY Plan Primary Reference Point Right Axilla ARIA RADIATION ONCOLOGY 12/11/2020 11:4 4 AM EDT Physician Radiation Oncology RADIATION ONCOLO GY ORDERABLES Final Result ARIA RADIATION ONCOLOGY documented in this encounter Visit Diagnoses Not on filedocumented in this encounter Additional Health Concerns Assessment Noted Time A fall risk assessment has been complete d for the patient 11/26/2020 2:59 PM EDT documented as of this encounter Care Teams Returns Processor Relationship Specialty Start Date End Date Michele Wright MD [address] [id number] PCP - General 10/11/20 Edgar Szymanski MD [address] [address] Radiation Oncologist Radiation Therapy 03/14/20 4 documented as of this encounter
--- OUTSIDE RECORDS SUMMARY | 2024-05-03 13:46 | XMS_ITS | Encounter Summary ---
Author Organization [facility] Address [address] [place] [address] Care Team Providers Care Sound Engineering Technician Name Role Phone Michele Wright MD Primary Care Provider + [phone] Edgar Szymanski MD Unavailable [phone] Encounter Details Date Type Department Care Team (Latest Contact Info) Description 12/26/2020 Travel Social History Tobacco Use Types Packs/Day [...] & Respiratory [address] [place] [address] 07/17/2024 1:30 PM EST Appointment [facility] Radiology [address] [place] [address] 07/20/2024 2:50 PM EST Office Visit Pav CC Head, Neck & Respiratory 800 [facility], [address] [place] [address] Divine Carpenter MD 800 [facility] [address] [place] [address] documented as of this encounter Visit Diagnoses Not on filedocumented in this encounter Additional Health Concerns Assessment Noted Time A fall risk assessment has been complete d for the patient 12/26/2020 12:01 PM EDT documented as of this encounter Care Teams Sound Engineering Technician Relationship Specialty Start Date End Date Michele Wright MD [address] [place] [address] PCP - General 10/11/20 Edgar Szymanski MD 800 [facility] [address] [place] [address] Radiation Oncologist Radiation Therapy 03/14/20 4 documented as of this encounter
--- OUTSIDE RECORDS SUMMARY | 2024-05-03 13:46 | XMS_ITS | Encounter Summary ---
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 [place] [address] Phone: tel: fax: Referral ID Status Reason Start Date Expiration Date V isits Requested Visits Authorized [id number] Closed Perform Procedure 11/26/2020 05/25/2021 1 10 Encounter Details Date Type Department Care Team (Latest Contact Info) Description 12/20/2020 10:22 AM EDT - 12/20/2020 11:59 PM EDT Hospital Encounter [facility] Radiation [address] [address] Discharge Disposition: Still a Patient [...] Respiratory 800 [facility], [address]nd [place] [address] 07/17/2024 1:30 PM EST Appointment [facility] Radiology [address] [place] [address] 07/20/2024 2:50 PM EST Office Visit Pav CC Head, Neck & Respiratory 800 [facility], [address]nd [place] [address] Divine Carpenter MD 800 [facility] [address] [place] [address] documented as of this encounter Visit Diagnoses Not on filedocumented in this encounter Additional Health Concerns Assessment Noted Time A fall risk assessment has been complete d for the patient 11/26/2020 2:59 PM EDT documented as of this encounter Care Teams Jacket Changer Relationship Specialty Start Date End Date Michele Wright MD [address] [place] [address] PCP - General 10/11/20 Edgar Szymanski MD 800 [facility] [address] [place] [address] Radiation Oncologist Radiation Therapy 03/14/20 4 documented as of this encounter
--- OUTSIDE RECORDS SUMMARY | 2024-05-03 13:46 | XMS_ITS | Encounter Summary ---
Author Organization [facility] Address [address] [place] [address] Care Team Providers Care Livestock Judging Coach Name Role Phone Michele Wright MD Primary Care Provider [phone] Edgar Szymanski MD Unavailable [phone] Reason for Referral * Imaging (Routine) - Closed Specialty Diagnoses / Procedures Referred By Contac t Referred To Contact Radiology Diagnoses Cancer of larynx (CMS/HCC) Procedures MR Thoracic Spine w and wo IV Contrast Edgar Szymanski MD [address] [address] Phone: tel: fax: Referral ID Status Reason Start Date Expiration Date Visits Re quested Visits Authorized [id number] Closed 12/19/2020 06/17/2021 1 1 * Imaging (Routine) - Closed Specialty Diagnoses / Procedures Referred By Contac t Referred To Contact Radiology Diagnoses Cancer of larynx (CMS/HCC) Procedures MR Cervical Spine w and wo IV Contrast Edgar Szymanski MD [address] [address] Phone: tel: fax: Referral ID Status Reason Start Date Expiration Date Visits Re quested Visits Authorized [id number] Closed 12/19/2020 06/17/2021 1 1 Encounter Details Date Type Department Care Team ([facility] Contact Info) Description 12/19/2020 Orders Only [facility] CC Radiation [address] [facility] [id number] [place] [address] Edgar Szymanski MD [address] [facility] [id number] [place] [address] Cancer of larynx (CMS/HCC) (Primary Dx) Social [...] Encounters Date Type Department Care Team ([facility] Contact Info) Description 07/17/2024 12:30 PM EST Clinical Support Pav CC Head, Neck & Respiratory [address] [facility], [address] [place] [address] 07/17/2024 1:30 PM EST Appointment P[facility] G Radiology [address] [place] [phone] 07/20/2024 2:50 PM EST Office Visit Pav CC Head, Neck & Respiratory [address] [facility], [address]nd [place] [address] Divine Carpneter MD [address] [facility] [address] [place] [phone] documented as of this encounter Results * MR Thoracic Spine w and wo IV Contrast (01/07/2021 3:09 PM EDT) Anatomical Region Laterality Modality T-spine Magnetic Resonan ce Impressions 01/07/2021 5:02 PM EDT CERVICAL SPINE: 1. No evidence of acute [...] facet joints at T9-T10 level. CRITICAL RESULT: ?? No. COMMUNICATION: Per this written report. Signed by Dheeraj Lucas on ??01/07/2021 5:02 PM Narrative 01/07/2021 5:02 PM EDT Exam/Procedure: MR CERVICAL SPINE W AND WO IV CONTRAST, MR THORACIC SPINE W AND WO IV CONTRAST ordered by EDGAR SZYMANSKI, [id number] CLINICAL INDICATION: Bone neoplasm. Recurrence suspected. TECHNIQUE: [...] ligament from the upper to mid cervical level is again noted. The anterior and posterior longitudinal [...] bilateral neural foramina and mild to moderate narrowing of the spinal canal. C3-4: Broad central [...] superimposed osteophytes. Mild to moderate left and mild right uncovertebral hypertrophy. Moderate left and mild to [...] There is swelling/edema of prevertebral soft tissues from visualized skull base to approximately C5-C6 level (image [...] the central canal within the cord spanning the lower T5 through the T10-T11 levels and compatible with a syrinx. The syrinx measures up to 3 mm at its widest diameter at the mid T8 level (image 5, series 11). No convincing abnormal enhancement is present within the spinal [...] right lung; correlate with chest CT exam. Procedure Note Dheeraj Lucas MD - 01/07/2021 Exam/Procedure: MR CERVICAL SPINE W AND WO IV CONTRAST, MR THORACIC SPINEW AND WO IV CONTRAST ordered by EDGAR SZYMANSKI, [id number] CLINICAL INDICATION: Bone neoplasm. Recurrence suspected. TECHNIQUE: Multiplanar multiecho sequences were obtained through the cervical spineutilizing T1 and T2 weighting with and without the administration ofintravenous contrast. 14 series were obtained including localizerseries. Multiplanar multiecho sequences were obtained through the thoracic spineutilizing T1 and T2 weighting with and without the administration ofintravenous contrast. 16 series were obtained including localizer series. 10mL Gadavist. COMPARISON: None. FINDINGS: Cervical Spine: Diagnostic Quality: Adequate. Alignment: The bony alignment is normal. There is straightening of thecervical lordosis. Marrow: Relatively T2 bright signal within the marrow on T1 and T3uzkrypmlz may be the sequela of radiation therapy. No definite mass orpathologic enhancement. Vertebrae and Intervertebral Discs: Vertebral body and disc space heightsare normal. There is moderate desiccation of the intervertebral discs atthe C2-C3 to the C4- C5 levels. Mild desiccation of the otherintervertebral discs. Ligaments: Ossification of the posterior longitudinal ligament from theupper to mid cervical level is again noted. The anterior and posteriorlongitudinal ligaments and interspinous ligaments are intact. Spinal Cord and Spinal Canal: The spinal cord is of normal caliber withoutabnormal intrinsic signal. No abnormal enhancement is present within thespinal canal. Degenerative changes are as follows: C2-3: Broad slightly eccentric right disc bulge with superimposedossification of the posterior longitudinal ligament. Mild bilateraluncovertebral hypertrophy. Mild ligamentum flavum thickening. Mildbilateral facet joint arthrosis. Mild narrowing of bilateral neuralforamina and mild to moderate narrowing of the spinal canal. C3-4: Broad central disc protrusion with with superimposed ossification ofthe posterior longitudinal ligament. Mild bilateral uncovertebralhypertrophy. Moderate left and mild to moderate right facet jointarthrosis. Moderate narrowing of bilateral neural foramina. Mild narrowingof the spinal canal. C4-5: Broad eccentric right disc bulge with with superimposed ossificationof the posterior longitudinal ligament. Mild bilateral uncovertebralhypertrophy. Mild bilateral facet joint arthrosis. Moderate left and mildright neural foramina narrowing. Mild narrowing of the spinal canal. C5-6: Minimal broad disc bulge with superimposed ossification of theposterior longitudinal ligament. Mild bilateral uncovertebral hypertrophy.Mild bilateral facet joint arthrosis. Mild ligamentum flavum thickening.Mild narrowing of neural foramina. Spinal canal is patent. C6-7: Broad eccentric left disc bulge with superimposed osteophytes. Mildto moderate left and mild right uncovertebral hypertrophy. Moderate leftand mild to moderate right facet joint arthrosis. Mild to moderateligamentum flavum thickening. Mild to moderate left neural foramennarrowing. Right neural foramen and spinal canal are patent. C7-T1: Minimal broad eccentric left disc bulge. Mild bilateraluncovertebral hypertrophy. Mild ligamentum flavum thickening. Moderateleft and mild right facet joint arthrosis. Mild narrowing of bilateralneural foramina. Spinal canal is patent. Prevertebral and Paraspinal Soft Tissues: There is swelling/edema ofprevertebral soft tissues from visualized skull base to approximatelyC5-C6 level (image 7, series 8). Other Findings: None. Thoracic Spine: Diagnostic Quality: Adequate. Alignment: The bony alignment is normal. Marrow: The marrow signal is normal. Vertebrae and Intervertebral Discs: Vertebral body and disc space heightsare normal. The intervertebral discs are well hydrated. Ligaments: The anterior and posterior longitudinal ligaments andinterspinous ligaments are intact. Spinal Cord and Spinal Canal: There is distention of the central canalwithin the cord spanning the lower T5 through the T10-T11 levels andcompatible with a syrinx. The syrinx measures up to 3 mm at its widestdiameter at the mid T8 level (image 5, series 11). No convincing abnormalenhancement is present within the spinal canal. Degenerative changes are present at the following levels: Multilevel spondylotic disease includes mild to moderate desiccation ofintervertebral discs. Mild disc height loss in the mid thoracic levelsfrom the T5-T6 through T8-T9, disc bulges, ligamentum flavum thickeningand bilateral facet joint arthrosis. The spondylotic findings appear worstin the facet joints at T9-T10 level. Prevertebral and Paraspinal Soft Tissues: There is no prevertebral orparaspinal soft tissue swelling or mass. Other Findings: There is subsegmental atelectasis and/or patchy opacity invisualized right lung; correlate with chest CT exam. IMPRESSION: CERVICAL SPINE: 1. No evidence of acute abnormality or pathologic enhancement in thecervical spinal canal. 2. Mild edema or inflammatory change within prevertebral soft tissues fromthe skull base to approximately C5-C6 level. Probable post irradiationchange in the marrow of the cervical vertebrae. 3. Moderate multilevel spondylotic disease with superimposed ossificationof the posterior longitudinal ligament appears worst at C5-C6 level.Please refer to the above level by level details. THORACIC SPINE: 1. 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 No convincing pathologic enhancement or definite masswithin the thoracic spinal canal. 2. Multilevel spondylotic disease appears most pronounced within facetjoints at T9-T10 level. CRITICAL RESULT: No. COMMUNICATION: Per this written report. Signed by Dheeraj Lucas on 01/07/2021 5:02 PM us Edgar Szymanski MD IMG MRI PROCEDURES Final R esult * MR Cervical Spine w and wo IV Contrast (01/07/2021 3:09 PM EDT) Anatomical Region Laterality Modality C-spine Magnetic Resonan ce Impressions 01/07/2021 5:02 PM EDT CERVICAL SPINE: 1. No evidence of acute [...] facet joints at T9-T10 level. CRITICAL RESULT: ?? No. COMMUNICATION: Per this written report. Signed by Dheeraj K Shayy on ??01/07/2021 5:02 PM Narrative 01/07/2021 5:02 PM EDT Exam/Procedure: MR CERVICAL SPINE W AND WO IV CONTRAST, MR THORACIC SPINE W AND WO IV CONTRAST ordered by EDGAR SZYMANSKI, [id number] CLINICAL INDICATION: Bone neoplasm. Recurrence suspected. TECHNIQUE: [...] ligament from the upper to mid cervical level is again noted. The anterior and posterior longitudinal [...] bilateral neural foramina and mild to moderate narrowing of the spinal canal. C3-4: Broad central [...] superimposed osteophytes. Mild to moderate left and mild right uncovertebral hypertrophy. Moderate left and mild to [...] There is swelling/edema of prevertebral soft tissues from visualized skull base to approximately C5-C6 level (image [...] the central canal within the cord spanning the lower T5 through the T10-T11 levels and compatible with a syrinx. The syrinx measures up to 3 mm at its widest diameter at the mid T8 level (image 5, series 11). No convincing abnormal enhancement is present within the spinal [...] right lung; correlate with chest CT exam. Procedure Note Dheeraj Lucas MD - 01/07/2021 Exam/Procedure: MR CERVICAL SPINE W AND WO IV CONTRAST, MR THORACIC SPINEW AND WO IV CONTRAST ordered by EDGAR SZYMANSKI, [id number] CLINICAL INDICATION: Bone neoplasm. Recurrence suspected. TECHNIQUE: Multiplanar multiecho sequences were obtained through the cervical spineutilizing T1 and T2 weighting with and without the administration ofintravenous contrast. 14 series were obtained including localizerseries. Multiplanar multiecho sequences were obtained through the thoracic spineutilizing T1 and T2 weighting with and without the administration ofintravenous contrast. 16 series were obtained including localizer series. 10mL Gadavist. COMPARISON: None. FINDINGS: Cervical Spine: Diagnostic Quality: Adequate. Alignment: The bony alignment is normal. There is straightening of thecervical lordosis. Marrow: Relatively T2 bright signal within the marrow on T1 and [id number] may be the sequela of radiation therapy. No definite mass orpathologic enhancement. Vertebrae and Intervertebral Discs: Vertebral body and disc space heightsare normal. There is moderate desiccation of the intervertebral discs atthe C2-C3 to the C4- C5 levels. Mild desiccation of the otherintervertebral discs. Ligaments: Ossification of the posterior longitudinal ligament from theupper to mid cervical level is again noted. The anterior and posteriorlongitudinal ligaments and interspinous ligaments are intact. Spinal Cord and Spinal Canal: The spinal cord is of normal caliber withoutabnormal intrinsic signal. No abnormal enhancement is present within thespinal canal. Degenerative changes are as follows: C2-3: Broad slightly eccentric right disc bulge with superimposedossification of the posterior longitudinal ligament. Mild bilateraluncovertebral hypertrophy. Mild ligamentum flavum thickening. Mildbilateral facet joint arthrosis. Mild narrowing of bilateral neuralforamina and mild to moderate narrowing of the spinal canal. C3-4: Broad central disc protrusion with with superimposed ossification ofthe posterior longitudinal ligament. Mild bilateral uncovertebralhypertrophy. Moderate left and mild to moderate right facet jointarthrosis. Moderate narrowing of bilateral neural foramina. Mild narrowingof the spinal canal. C4-5: Broad eccentric right disc bulge with with superimposed ossificationof the posterior longitudinal ligament. Mild bilateral uncovertebralhypertrophy. Mild bilateral facet joint arthrosis. Moderate left and mildright neural foramina narrowing. Mild narrowing of the spinal canal. C5-6: Minimal broad disc bulge with superimposed ossification of theposterior longitudinal ligament. Mild bilateral uncovertebral hypertrophy.Mild bilateral facet joint arthrosis. Mild ligamentum flavum thickening.Mild narrowing of neural foramina. Spinal canal is patent. C6-7: Broad eccentric left disc bulge with superimposed osteophytes. Mildto moderate left and mild right uncovertebral hypertrophy. Moderate leftand mild to moderate right facet joint arthrosis. Mild to moderateligamentum flavum thickening. Mild to moderate left neural foramennarrowing. Right neural foramen and spinal canal are patent. C7-T1: Minimal broad eccentric left disc bulge. Mild bilateraluncovertebral hypertrophy. Mild ligamentum flavum thickening. Moderateleft and mild right facet joint arthrosis. Mild narrowing of bilateralneural foramina. Spinal canal is patent. Prevertebral and Paraspinal Soft Tissues: There is swelling/edema ofprevertebral soft tissues from visualized skull base to approximatelyC5-C6 level (image 7, series 8). Other Findings: None. Thoracic Spine: Diagnostic Quality: Adequate. Alignment: The bony alignment is normal. Marrow: The marrow signal is normal. Vertebrae and Intervertebral Discs: Vertebral body and disc space heightsare normal. The intervertebral discs are well hydrated. Ligaments: The anterior and posterior longitudinal ligaments andinterspinous ligaments are intact. Spinal Cord and Spinal Canal: There is distention of the central canalwithin the cord spanning the lower T5 through the T10-T11 levels andcompatible with a syrinx. The syrinx measures up to 3 mm at its widestdiameter at the mid T8 level (image 5, series 11). No convincing abnormalenhancement is present within the spinal canal. Degenerative changes are present at the following levels: Multilevel spondylotic disease includes mild to moderate desiccation ofintervertebral discs. Mild disc height loss in the mid thoracic levelsfrom the T5-T6 through T8-T9, disc bulges, ligamentum flavum thickeningand bilateral facet joint arthrosis. The spondylotic findings appear worstin the facet joints at T9-T10 level. Prevertebral and Paraspinal Soft Tissues: There is no prevertebral orparaspinal soft tissue swelling or mass. Other Findings: There is subsegmental atelectasis and/or patchy opacity invisualized right lung; correlate with chest CT exam. IMPRESSION: CERVICAL SPINE: 1. No evidence of acute abnormality or pathologic enhancement in thecervical spinal canal. 2. Mild edema or inflammatory change within prevertebral soft tissues fromthe skull base to approximately C5-C6 level. Probable post irradiationchange in the marrow of the cervical vertebrae. 3. Moderate multilevel spondylotic disease with superimposed ossificationof the posterior longitudinal ligament appears worst at C5-C6 level.Please refer to the above level by level details. THORACIC SPINE: 1. 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 No convincing pathologic enhancement or definite masswithin the thoracic spinal canal. 2. Multilevel spondylotic disease appears most pronounced within facetjoints at T9-T10 level. CRITICAL RESULT: No. COMMUNICATION: Per this written report. Signed by Dheeraj Lucas on 01/07/2021 5:02 PM Edgar Szymanski MD IMG MRI PROCEDURES Final R esult documented in this encounter Visit Diagnoses Diagnosis 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, unspecified site 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, unspecified site documented in this encounter Additional Health Concerns Assessment Noted Time A fall risk assessment has been complete d for the patient 11/26/2020 2:59 PM EDT documented as of this encounter Care Teams Livestock Judging Coach Relationship Specialty Start Date End Date Michele Wright MD [address] [place] [id number] PCP - General 10/11/20 Edgar Szymanski MD [address] [place] [phone] Radiation Oncologist Radiation Therapy 03/14/20 4 documented as of this encounter
--- OUTSIDE RECORDS SUMMARY | 2024-05-03 13:46 | XMS_ITS | Encounter Summary ---
Author Organization [facility] Address [address] [place], [place] [id number] Care Team Providers Care Peanut Vendor Name Role Phone Michele Wright MD Primary Care Provider + [phone] Edgar Szymanski MD Unavailable [phone] Reason for Visit * Reason Comments OTV Encounter Details Date Type Department Care Team (Latest Contact Info) Description 12/17/2020 11:00 AM EDT - 12/17/2020 11:59 PM EDT Hospital Encounter [facility] CC Radiation [id number] [place] [address] Edgar Szymanski MD [address] [place] [address] Cancer of larynx (CMS/HCC) (Primary [...] Sign Reading Time Taken Comments Blood Pressure 217/102 12/17/2020 12:12 PM EDT Pulse 47 12/17/2020 12:12 PM EDT Temperature 36.5 ??C (97.7 ??F) 12/17/2020 12:10 PM E DT Respiratory Rate - - Oxygen Saturation 97% 12/17/2020 12:10 PM EDT Inhaled Oxygen Concentration - - Weight 108 kg (238 lb 12.1 oz) 12/17/2020 12:10 PM EDT Height - - Body Mass Index 34.26 11/26/2020 2:56 PM EDT documented in this encounter Medications [...] 06/24/2020 1 documented as of this encounter Miscellaneous Notes * Addendum Note - Leonid Lockhart MD - 12/17/2020 11:00 AM EDTEncounter addended by: Leonid Lockhart MD on: 12/17/2020 12:57 PM Actions taken: Clinical Note Signed * Progress Notes - Leonid Lockhart MD - 12/17/2020 11:00 AM EDT Patient Name: Anibal Barreto Date of : 1965 55 y.o. Encounter Date: 12/17/2020 RESEARCH STUDY PATIENT: Yes: [] No: [x] Treatment Diagnosis and Cancer Staging Cancer of larynx (CMS/HCC) [...] Signed by Divine Carpenter MD on 10/14/2020 Visit Vitals BP (!) 217/102 Pulse (!) 47 Temp 36.5 ??C (97.7 ??F) Wt 108 kg (238 lb 12.1 oz) SpO2 97% BMI 34.26 kg/m?? Smoking Status Passive Smoke Exposure - Never Smoker BSA 2.31 m?? Physician Notes: [x] Reviewed chart and dosimetry - Current Dose - *see signed printed weekly treatment record [x] Reviewed treatment setup - Anticipated Dose - *see signed printed weekly treatment record [x] Reviewed port films or images - Examination of patient for evaluation and progress of treatment KPS 90 - Able to carry on normal activity; minor signs or symptoms of disease. SUBJECTIVE: he reports 5/10 right axilla discomfort. States is continues to takes opioid pain medications. Endorses right upper extremity distal and proximal numbness. has an MRI recent study scheduled for later this month. Denies constipation today. States his blood pressure medications are currently being adjusted. OBJECTIVE: Right axilla: mild skin erythema, no significant skin breakdown, mnimally tender to palpation. decreased size of right axilla mass. RADIATION DOSE: Radiation Treatments Active Plans Right Axilla Obliques [C21C22 RTAx] Most recent treatment: Dose planned: 300 cGy (fraction 7 on 12/17/2020) Total: Dose planned: 3,000 cGy (10 fractions) Elapsed Days: 8 Reference Points Right Axilla Most recent treatment: Dose given: 300 cGy (on 12/17/2020) Total: Dose given: 2,100 cGy Elapsed Days: 8 ASSESSMENT AND PLAN: Anibal Barreto is a 55 y.o. male with a diagnosis as above. He appears to be having a good treatment response. He is hypertensive today, and notes his blood pressure medications are currently being adjusted by his other healthcare providers. We plan to continue radiation therapy. Sincerely, Leonid Lockhart MD Resident Physician [facility] RADIATION [address] [facility] [phone] Cosigned by Edgar Szymanski MD at 12/17/2020 2:10 PM EDT Associated attestation - Edgar Szymanski MD - 12/17/2020 2:10 PM EDT I saw and evaluated the patient with the resident/fellow. I discussed the case with the resident/fellow and agree with the findings and plan as documented.Decrease in size of axilary mass.RTC 4 weeksafter completion. documented in this encounter Plan of Treatment Upcoming Encounters Date Type Department Care Team (Late st Contact Info) Description 07/17/2024 12:30 PM EST Clinical Support Pav CC Head, Neck & Respiratory [address] [place] [phone] 07/17/2024 1:30 PM EST Appointment P[facility] G Radiology [address] [place] [address] 07/20/2024 2:50 PM EST Office Visit Pav CC Head, Neck & Respiratory [address] [place] [address] Divine Carpenter MD [address] [place] [id number] documented as of this encounter Visit Diagnoses Diagnosis 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, unspecified site documented in this encounter Additional Health Concerns Assessment Noted Time A fall risk assessment has been complete d for the patient 11/26/2020 2:59 PM EDT documented as of this encounter Care Teams Peanut Vendor Relationship Specialty Start Date End Date Michele Wright MD [address] [place] [address] PCP - General 10/11/20 Edgar Szymanski MD [address] [place] [phone] Radiation Oncologist Radiation Therapy 03/14/20 4 documented as of this encounter
--- OUTSIDE RECORDS SUMMARY | 2024-05-03 13:46 | XMS_ITS | Encounter Summary ---
Author Organization Healthcare Address [address] [place] [address] Care Team Providers Care Chemical Operations Specialist Name Role Phone Michele Wright MD Primary Care Provider + [phone] Edgar Szymanski MD Unavailable [phone] Encounter Details Date Type Department Care Team (Late st Contact Info) Description 12/13/2020 Orders Only [facility] [address] [id number] [place] [address] Radiation Oncology, Physician, [address] [place], [place] [id number] Social History Tobacco Use Types Packs/Day Years [...] & Respiratory [address]nd [place] [address] 07/17/2024 1:30 PM EST Appointment [facility] Radiology [address] [place] [address] 07/20/2024 2:50 PM EST Office Visit [facility] CC Head, Neck & Respiratory 800 [facility], 2nd [place] [address] Divine Carpenter MD 800 [facility] [address] [place] [address] documented as of this encounter Procedures Procedure Name Priority Date/Time Associated Diagnosis Comments RAD ONC ARIA SESSION SUMMARY Routine 12/13/2020 10:46 AM EDT documented in this encounter Results * Rad Onc Aria Session Summary (12/13/2020 10:46 AM EDT) Course ID C3 ARIA RADIATION ONCOLOGY Course Intent Palliative ARIA RADIATION ONCOLOGY Course Start Date 12/03/2020 12:19 PM ARIA RADIATION ONCOLOGY Course First Treatment Date 12/09/2020 11:43 AM ARIA RADIATION ONCOLOGY Course Last Treatment Date 12/13/2020 10:45 AM ARIA RADIATION ONCOLOGY Course Elapsed Days 4 ARIA RADIATION ONCOLOGY Reference Point ID Right Axilla ARIA RADIATION ONCOLOGY Reference Point Dosage Given to Date 15 Gy ARIA RADIATION ONCOLOGY Reference Point Session Dosage Given 3 Gy ARIA RADIATION ONCOLOGY Plan ID [id number] RTAx ARIA RADIATION ONCOLOGY Plan Name Right Axilla Obliques ARIA RADIATION ONCOLOGY Plan Fractions Treated to Date 5 ARIA RADIATION ONCOLOGY Plan Total Fractions Prescribed 10 ARIA RADIATION ONCOLOGY Plan Prescribed Dose Per Fraction 3 Gy ARIA RADIATION ONCOLOGY Plan Total Prescribed Dose 3,000 CGy ARIA RADIATION ONCOLOGY Plan Primary Reference Point Right Axilla ARIA RADIATION ONCOLOGY 12/13/2020 10:4 6 AM EDT Physician Radiation Oncology RADIATION ONCOLO GY ORDERABLES Final Result ARIA RADIATION ONCOLOGY documented in this encounter Visit Diagnoses Not on filedocumented in this encounter Additional Health Concerns Assessment Noted Time A fall risk assessment has been complete d for the patient 11/26/2020 2:59 PM EDT documented as of this encounter Care Teams Chemical Operations Specialist Relationship Specialty Start Date End Date Michele Wright MD [address] [id number] PCP - General 10/11/20 Edgar Szymanski MD [address] [address] Radiation Oncologist Radiation Therapy 03/14/20 4 documented as of this encounter
--- OUTSIDE RECORDS SUMMARY | 2024-05-03 13:46 | XMS_ITS | Encounter Summary ---
Author Organization [facility] Address [address] [place] [address] Care Team Providers Care Entry Analyst Name Role Phone Michele Wright MD Primary Care Provider + [phone] Edgar Szymanski MD Unavailable [phone] Reason for Visit * Radiation Therapy (Routine) - Closed Specialty Diagnoses / Procedures Referred By Contac t Referred To Contact Radiation Oncology Diagnoses 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) Procedures Rad Onc Intent to Treat Edgar Szymanski MD [address] [facility] [address] [place] [address] Phone: tel: fax: [facility] [address] [id number] [place] [address] Phone: tel: fax: Referral ID Status Reason Start Date Expiration Date V isits Requested Visits Authorized [id number] Closed Perform Procedure 11/26/2020 05/25/2021 1 10 Encounter Details Date Type Department Care Team (Latest Contact Info) Description 12/13/2020 10:20 AM EDT - 12/13/2020 11:59 PM EDT Hospital Encounter [facility]iation [address] [address] Discharge Disposition: Still a Patient [...] Pav CC Head, Neck & Respiratory 800 [facility], 2nd [place] [address] 07/17/2024 1:30 PM EST Appointment [facility] Radiology [address] [place] [address] 07/20/2024 2:50 PM EST Office Visit Pav CC Head, Neck & Respiratory 800 [facility], 2nd [place] [address] Divine Carpenter MD 800 [facility] [address] [place] [address] documented as of this encounter Visit Diagnoses Not on filedocumented in this encounter Additional Health Concerns Assessment Noted Time A fall risk assessment has been complete d for the patient 11/26/2020 2:59 PM EDT documented as of this encounter Care Teams Entry Analyst Relationship Specialty Start Date End Date Michele Wright MD [address] [place] [address] PCP - General 10/11/20 Edgar Szymanski MD 800 [facility] [address] [place] [address] Radiation Oncologist Radiation Therapy 03/14/20 4 documented as of this encounter
--- OUTSIDE RECORDS SUMMARY | 2024-05-03 13:46 | XMS_ITS | Encounter Summary ---
Author Organization [facility] Address [address] [place] [address] Care Team Providers Care Cereal Popper Name Role Phone Michele Wright MD Primary Care Provider + [phone] Edgar Szymanski MD Unavailable [phone] Reason for Visit * Radiation Therapy (Routine) - Closed Specialty Diagnoses / Procedures Referred By Contac t Referred To Contact Radiation Oncology Diagnoses 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) Procedures Rad Onc Intent to Treat Edgar Szymanski MD [address] [facility] [address] [place] [address] Phone: tel: fax: [facility] Radiation [address] [id number] [place] [address] Phone: tel: fax: Referral ID Status Reason Start Date Expiration Date V isits Requested Visits Authorized [id number] Closed Perform Procedure 11/26/2020 05/25/2021 1 10 Encounter Details Date Type Department Care Team (Latest Contact Info) Description 12/19/2020 10:30 AM EDT - 12/19/2020 11:59 PM EDT Hospital Encounter [facility] Radiation [address] [address] Discharge Disposition: Still a [...] Respiratory 800 [facility], 2nd [place] [address] 07/17/2024 1:30 PM EST Appointment [facility] Radiology [address] [place] [address] 07/20/2024 2:50 PM EST Office Visit Pav CC Head, Neck & Respiratory 800 [facility], 2nd [place] [address] Divine Carpenter MD 800 [facility] [address] [place] [address] documented as of this encounter Visit Diagnoses Not on filedocumented in this encounter Additional Health Concerns Assessment Noted Time A fall risk assessment has been complete d for the patient 11/26/2020 2:59 PM EDT documented as of this encounter Care Teams Cereal Popper Relationship Specialty Start Date End Date Michele Wright MD [address] [place] [address] PCP - General 10/11/20 Edgar Szymanski MD 800 [facility] [address] [place] [address] Radiation Oncologist Radiation Therapy 03/14/20 4 documented as of this encounter
--- OUTSIDE RECORDS SUMMARY | 2024-05-03 13:46 | XMS_ITS | Encounter Summary ---
Author Organization Healthcare Address [address] [place] [address] Care Team Providers Care Desk Lieutenant Name Role Phone Michele Wright MD Primary Care Provider + [phone] Edgar Szymanski MD Unavailable [phone] Encounter Details Date Type Department Care Team (Late st Contact Info) Description 12/18/2020 Orders Only [facility] [address] [id number] [place] [address] Radiation Oncology, Physician, [address] [place], [place] [id number] Social History Tobacco Use Types Packs/Day Years [...] & Respiratory [address] [place] [address] 07/17/2024 1:30 PM EST Appointment [facility] Radiology [address] [place] [address] 07/20/2024 2:50 PM EST Office Visit Pav CC Head, Neck & Respiratory 800 [facility], [address]nd [place] [address] Divine Carpenter MD 800 [facility] [address] [place] [address] documented as of this encounter Procedures Procedure Name Priority Date/Time Associated Diagnosis Comments RAD ONC ARIA SESSION SUMMARY Routine 12/18/2020 11:18 AM EDT documented in this encounter Results * Rad Onc Aria Session Summary (12/18/2020 11:18 AM EDT) Course ID C3 ARIA RADIATION ONCOLOGY Course Intent Palliative ARIA RADIATION ONCOLOGY Course Start Date 12/03/2020 12:19 PM ARIA RADIATION ONCOLOGY Course First Treatment Date 12/09/2020 11:43 AM ARIA RADIATION ONCOLOGY Course Last Treatment Date 12/18/2020 11:18 AM ARIA RADIATION ONCOLOGY Course Elapsed Days 9 ARIA RADIATION ONCOLOGY Reference Point ID Right Axilla ARIA RADIATION ONCOLOGY Reference Point Dosage Given to Date 24 Gy ARIA RADIATION ONCOLOGY Reference Point Session Dosage Given 3 Gy ARIA RADIATION ONCOLOGY Plan ID [id number] RTAx ARIA RADIATION ONCOLOGY Plan Name Right Axilla Obliques ARIA RADIATION ONCOLOGY Plan Fractions Treated to Date 8 ARIA RADIATION ONCOLOGY Plan Total Fractions Prescribed 10 ARIA RADIATION ONCOLOGY Plan Prescribed Dose Per Fraction 3 Gy ARIA RADIATION ONCOLOGY Plan Total Prescribed Dose 3,000 CGy ARIA RADIATION ONCOLOGY Plan Primary Reference Point Right Axilla ARIA RADIATION ONCOLOGY 12/18/2020 11:1 8 AM EDT Physician Radiation Oncology RADIATION ONCOLO GY ORDERABLES Final Result ARIA RADIATION ONCOLOGY documented in this encounter Visit Diagnoses Not on filedocumented in this encounter Additional Health Concerns Assessment Noted Time A fall risk assessment has been complete d for the patient 11/26/2020 2:59 PM EDT documented as of this encounter Care Teams Desk Lieutenant Relationship Specialty Start Date End Date Michele Wright MD [address] [id number] PCP - General 10/11/20 Edgar Szymanski MD [address] [address] Radiation Oncologist Radiation Therapy 03/14/20 4 documented as of this encounter
--- OUTSIDE RECORDS SUMMARY | 2024-05-03 13:46 | XMS_ITS | Encounter Summary ---
Author Organization [facility] Address [address] [place] [address] Care Team Providers Care Fnps Name Role Phone Michele Wright MD Primary Care Provider + [phone] Edgar Szymanski MD Unavailable [phone] Reason for Referral * Imaging (Routine) - Closed Specialty Diagnoses / Procedures Referred By Contac t Referred To Contact Radiology Diagnoses Cancer of larynx (CMS/HCC) Procedures MR Thoracic Spine w and wo IV Contrast Edgar Szymanski MD [address] [address] Phone: tel: fax: Referral ID Status Reason Start Date Expiration Date Visits Re quested Visits Authorized [id number] Closed 12/19/2020 06/17/2021 1 1 * Imaging (Routine) - Closed Specialty Diagnoses / Procedures Referred By Contac t Referred To Contact Radiology Diagnoses Cancer of larynx (CMS/HCC) Procedures MR Cervical Spine w and wo IV Contrast Edgar Szymanski MD [address] [address] Phone: tel: fax: Referral ID Status Reason Start Date Expiration Date Visits Re quested Visits Authorized [id number] Closed 12/19/2020 06/17/2021 1 1 Reason for Visit * Imaging (Routine) - Closed Specialty Diagnoses / Procedures Referred By Ortega t Referred To Contact Radiology Diagnoses Cancer of larynx (CMS/HCC) Procedures MR Cervical Spine w and wo IV Contrast Edgar Szymanski MD 800 [facility] [address] [place] [address] Phone: tel: fax: Referral ID Status Reason Start Date Expiration Date Visits Re quested Visits Authorized [id number] Closed 12/19/2020 06/17/2021 1 1 Encounter Details Date Type Department Care Team (Latest Contact Info) Description 01/07/2021 1:45 PM EDT - 01/07/2021 11:59 PM EDT Hospital Encounter [facility] [address] [place] [address] Cancer of larynx (CMS/HCC) Discharge Disposition: Home [...] crush, chew, or split. 60 tablet 12/26/2020 alclometasone (Aclovate) 0.05 % creamIndications :Cancer of larynx (CMS/HCC) Apply to affected area PRN rash 60 g 5 01/13/2021 1 ALPRAZolam (Xanax) 1 MG tablet 1 tab(s) orally 2 times a day, As Needed 09/02/2020 2 candesartan-hydr oCHLOROthiazide (Atacand HCT) 32-12.5 MG tablet 12/23/2016 1 dexamethasone (Decadron) 4 MG tabletIndication s:Cancer of larynx (CMS/HCC) Take 2 tablets (8 mg total) by mouth 1 (one) time each day. Starting day after chemo for 3 days. 36 tablet 01/13/2021 1 doxycycline (Adoxa) 100 MG tabletIndication s:Cancer of larynx (CMS/HCC) Take 1 tablet (100 mg total) by mouth 2 (two) times a day. Take with a full glass of water and do not lie down for at least 30 minutes after 60 tablet 5 01/13/2021 1 gabapentin (Neurontin) 600 MG tablet Take 1 tablet (600 mg total) by mouth 4 (four) times a day. 120 tablet 1 11/25/2020 1 ibuprofen (Childrens Ibuprofen) 100 MG/5ML suspension Take 30 mL (600 mg total) by mouth every 6 (six) hours if needed for mild pain. 2000 mL 3 12/26/2020 1 levothyroxine (Synthroid, Levoxyl) 150 MCG tablet TAKE 1 TABLET DAILY. 03/29/2018 2 Lidocaine 2 % gel Apply 1 application topically 5 (five) times a day. 30 g 2 11/25/2020 1 lisinopril 5 MG tablet 11/05/2020 1 LISINOPRIL PO 1 loratadine (Claritin) 10 MG tablet TAKE 1 TABLET BY MOUTH ONCE A DAY 30 tablet 2 01/07/2021 1 metoprolol tartrate (Lopressor) 50 MG tablet 1 tab(s) orally 2 times a day 2 omeprazole (PriLOSEC) [address] capsule TAKE 1 CAPSULE ONCE A DAY 11/19/2017 1 oxyCODONE (Roxicodone) 30 MG immediate release tablet Take 1-2 tablets (30-60 mg total) by mouth every 6 (six) hours if needed for severe pain. For cancer related pain 200 tablet 12/26/2020 1 predniSONE (Deltasone) 10 MG tablet 06/24/2020 1 prochlorperazine (Compazine) 10 MG tabletIndication s:Cancer of larynx (CMS/HCC) Take 1 tablet (10 mg total) by mouth every 6 (six) hours if needed for nausea or vomiting. 30 tablet 5 01/13/2021 1 documented as of this encounter Plan of Treatment Upcoming Encounters Date Type Department Care Team (Late st Contact Info) Description 07/17/2024 12:30 PM EST Clinical Support Pav CC Head, Neck & Respiratory 800 [facility], 2nd [place] [address] 07/17/2024 1:30 PM EST Appointment [facility] Radiology [address] [place] [address] 07/20/2024 2:50 PM EST Office Visit Pav CC Head, Neck & Respiratory 800 [facility], [address]nd [place] [address] Divine Carpenter MD 800 [facility] [address] [place] [address] documented as of this encounter Procedures Procedure Name Priority Date/Time Associated Diagnosis Comments MR THORACIC SPINE W AND WO IV CONTRAST Routine 01/07/2021 3:09 PM EDT Cancer of larynx (CMS/HCC) MR CERVICAL SPINE W AND WO IV CONTRAST Routine 01/07/2021 3:09 PM EDT Cancer of larynx (CMS/HCC) documented in this encounter Results * MR Thoracic Spine [...] WO IV CONTRAST ordered by EDGAR SZYMANSKI, [id number] CLINICAL INDICATION: Bone neoplasm. Recurrence suspected. TECHNIQUE: [...] WO IV CONTRAST ordered by EDGAR SZYMANSKI, [id number] CLINICAL INDICATION: Bone neoplasm. Recurrence suspected. TECHNIQUE: [...] signal within the marrow on T1 and [id number] may be the sequela of radiation therapy. [...] on 01/07/2021 5:02 PM Edgar Szymanski MD IM MRI PROCEDURES Final R esult * MR [...] WO IV CONTRAST ordered by EDGAR SZYMANSKI, [id number] CLINICAL INDICATION: Bone neoplasm. Recurrence suspected. TECHNIQUE: [...] WO IV CONTRAST ordered by EDGAR SZYMANSKI, [id number] CLINICAL INDICATION: Bone neoplasm. Recurrence suspected. TECHNIQUE: [...] signal within the marrow on T1 and [id number] may be the sequela of radiation therapy. [...] MAR Action Action Date Dose Rate Site gadobutrol (Gadavist) injection 11 mmol 11 mmol (rounded from 10.8 mmol = 0.1 mmol/kg ? 108 kg), Intravenous, Once in imaging, 1 dose, Starting on Wed01/07/21 at 1407, Until Wed01/07/21 at 1451, Routine, Imaging Protocol Orders Given 01/07/2021 2:51 PM EDT 10 mL documented in this encounter Additional Health Concerns Assessment Noted Time A fall risk assessment has been complete d for the patient 12/26/2020 12:01 PM EDT documented as of this encounter Care Teams Fnps Relationship Specialty Start Date End Date Michele Wright MD [address] [place] [address] PCP - General 10/11/20 Edgar Szymanski MD [id number] [place] [address] Radiation Oncologist Radiation Therapy 03/14/20 4 documented as of this encounter
--- OUTSIDE RECORDS SUMMARY | 2024-05-03 13:46 | XMS_ITS | Encounter Summary ---
Author Organization [facility] Address [address] [place], [place] [id number] Care Team Providers Care Digital Marketer Name Role Phone Michele Wright MD Primary Care Provider + [phone] Edgar Szymanski MD Unavailable [phone] Shun Hurst MD Unavailable [phone] Divine Carpenter MD Unavailable [phone] Reason for Visit * Reason Onset Date Comments HCN - Patient Message 12/13/2020 Encounter Details Date Type Department Care Team (Late st Contact Info) Description 12/13/2020 Telephone [facility] [address] [place] [address] Divine Carpenter MD [address] [address] HCN - Patient Message Social [...] encounter Miscellaneous Notes * Telephone Encounter - Amrita Michael - 12/13/2020 12:07 PM EDT Caller states she was returning a missed call from [facility] documented in this encounter Plan of Treatment Upcoming Encounters Date Type Department Care Team (Late st Contact Info) Description 07/17/2024 12:30 PM EST Clinical Support Pav CC Head, Neck & Respiratory 800 [facility], 2nd [place] [address] 07/17/2024 1:30 PM EST Appointment [facility] Radiology [address] [place] [address] 07/20/2024 2:50 PM EST Office Visit Pav CC Head, Neck & Respiratory 800 [facility], 2nd [place] [address] Divine Carpenter MD 800 [facility] [address] [place] [address] documented as of this encounter Visit Diagnoses Not on filedocumented in this encounter Additional Health Concerns Infection Onset Date Last Indicated Resolved Time COVID-19 Rule-Out 06/12/2021 06/12/2021 06/12/2021 12:25 PM EST COVID 19 (Confirmed) Comment:[facility] has verified patient has a COVID-19 positive result. A chart review has been completed, EPI PUI has been completed and sent to appropriate Health Dept. [facility] Salesperson [employer] Furnishings: Doyle 06/12/2021 06/12/2021 07/03/2021 5: 23 AM EST Assessment Noted Time A fall risk assessment has been complete d for the patient 11/26/2020 2:59 PM EDT documented as of this encounter Care Teams Digital Marketer Relationship Specialty Start Date End Date Michele Wright MD [address] [place] [address] PCP - General 10/11/20 Edgar Szymanski MD [address] [facility] [address] [place] [address] Radiation Oncologist Radiation Therapy 03/14/20 4 Shun Hurst MD [address] [place] [address] Surgeon Neurosurgery 02/24/21 Divine Carpenter MD [address] [place] [address] Medical Oncologist Medical Oncology 06/13/21 documented as of this encounter
--- OUTSIDE RECORDS SUMMARY | 2024-05-03 13:46 | XMS_ITS | Encounter Summary ---
Author Organization [facility] Address [address] [place] [address] Care Team Providers Care Rivet Catcher Name Role Phone Michele Wright MD Primary Care Provider + [phone] Edgar Szymanski MD Unavailable [phone] Reason for Visit * Radiation Therapy (Routine) - Closed Specialty Diagnoses / Procedures Referred By Contac t Referred To Contact Radiation Oncology Diagnoses 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) Procedures Rad Onc Intent to Treat Edgar Szymanski MD [address] [facility] [address] [place] [address] Phone: tel: fax: [facility] Radiation [address] [id number] [place] [address] Phone: tel: fax: Referral ID Status Reason Start Date Expiration Date V isits Requested Visits Authorized [id number] Closed Perform Procedure 11/26/2020 05/25/2021 1 10 Encounter Details Date Type Department Care Team (Latest Contact Info) Description 12/17/2020 10:25 AM EDT - 12/17/2020 10:59 AM EDT Hospital Encounter [facility] [address] [address] Discharge Disposition: Still a Patient [...] 800 [facility], [address]nd [place] [address] 07/17/2024 1:30 PM EST Appointment [facility] Radiology [address] [place] [address] 07/20/2024 2:50 PM EST Office Visit Pav CC Head, Neck & Respiratory 800 [facility], [address]nd [place] [address] Divine Carpenter MD 800 [facility] [address] [place] [address] documented as of this encounter Visit Diagnoses Not on filedocumented in this encounter Additional Health Concerns Assessment Noted Time A fall risk assessment has been complete d for the patient 11/26/2020 2:59 PM EDT documented as of this encounter Care Teams Rivet Catcher Relationship Specialty Start Date End Date Michele Wright MD [address] [place] [address] PCP - General 10/11/20 Edgar Szymanski MD 800 [facility] [address] [place] [address] Radiation Oncologist Radiation Therapy 03/14/20 4 documented as of this encounter
--- OUTSIDE RECORDS SUMMARY | 2024-05-03 13:46 | XMS_ITS | Encounter Summary ---
Author Organization [facility] Address [address] [place] [address] Care Team Providers Care Lie Detector Operator Name Role Phone Michele Wright MD Primary Care Provider + [phone] Edgar Szymanski MD Unavailable [phone] Reason for Visit * Radiation Therapy (Routine) - Closed Specialty Diagnoses / Procedures Referred By Contac t Referred To Contact Radiation Oncology Diagnoses 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) Procedures Rad Onc Intent to Treat Edgar Szymanski MD [address] [facility] [address] [place] [address] Phone: tel: fax: [facility] Radiation [id number] [place] [address] Phone: tel: fax: Referral ID Status Reason Start Date Expiration Date V isits Requested Visits Authorized [id number] Closed Perform Procedure 11/26/2020 05/25/2021 1 10 Encounter Details Date Type Department Care Team (Latest Contact Info) Description 12/11/2020 10:33 AM EDT - 12/11/2020 11:59 PM EDT Hospital Encounter [facility] Radiation [address] [address] Discharge Disposition: Still a Patient [...] Respiratory 800 [facility], [address]nd [place] [address] 07/17/2024 1:30 PM EST Appointment [facility] Radiology [address] [place] [address] 07/20/2024 2:50 PM EST Office Visit Pav CC Head, Neck & Respiratory 800 [facility], [address]nd [place] [address] Divine Carpenter MD 800 [facility] [address] [place] [address] documented as of this encounter Visit Diagnoses Not on filedocumented in this encounter Additional Health Concerns Assessment Noted Time A fall risk assessment has been complete d for the patient 11/26/2020 2:59 PM EDT documented as of this encounter Care Teams Lie Detector Operator Relationship Specialty Start Date End Date Michele Wright MD [address] [place] [address] PCP - General 10/11/20 Edgar Szymanski MD 800 [facility] [address] [place] [address] Radiation Oncologist Radiation Therapy 03/14/20 4 documented as of this encounter
--- OUTSIDE RECORDS SUMMARY | 2024-05-03 13:46 | XMS_ITS | Encounter Summary ---
Author Organization Healthcare Address [address] [place] [address] Care Team Providers Care Rn Pacu Name Role Phone Michele Wright MD Primary Care Provider + [phone] Edgar Szymanski MD Unavailable [phone] Encounter Details Date Type Department Care Team (Late st Contact Info) Description 12/16/2020 Orders Only [facility] Radiation [id number] [place] [address] Radiation Oncology, Physician, [address] [place], [place] [id number] Social History Tobacco Use Types Packs/Day Years [...] & Respiratory [address] [place] [address] 07/17/2024 1:30 PM EST Appointment [facility] Radiology [address] [place] [address] 07/20/2024 2:50 PM EST Office Visit [facility] Head, Neck & Respiratory 800 [facility], 2nd [place] [address] Divine Carpenter MD 800 [facility] [address] [place] [address] documented as of this encounter Procedures Procedure Name Priority Date/Time Associated Diagnosis Comments RAD ONC ARIA SESSION SUMMARY Routine 12/16/2020 10:53 AM EDT documented in this encounter Results * Rad Onc Aria Session Summary (12/16/2020 10:53 AM EDT) Course ID C3 ARIA RADIATION ONCOLOGY Course Intent Palliative ARIA RADIATION ONCOLOGY Course Start Date 12/03/2020 12:19 PM ARIA RADIATION ONCOLOGY Course First Treatment Date 12/09/2020 11:43 AM ARIA RADIATION ONCOLOGY Course Last Treatment Date 12/16/2020 10:52 AM ARIA RADIATION ONCOLOGY Course Elapsed Days 7 ARIA RADIATION ONCOLOGY Reference Point ID Right Axilla ARIA RADIATION ONCOLOGY Reference Point Dosage Given to Date 18 Gy ARIA RADIATION ONCOLOGY Reference Point Session Dosage Given 3 Gy ARIA RADIATION ONCOLOGY Plan ID [id number] RTAx ARIA RADIATION ONCOLOGY Plan Name Right Axilla Obliques ARIA RADIATION ONCOLOGY Plan Fractions Treated to Date 6 ARIA RADIATION ONCOLOGY Plan Total Fractions Prescribed 10 ARIA RADIATION ONCOLOGY Plan Prescribed Dose Per Fraction 3 Gy ARIA RADIATION ONCOLOGY Plan Total Prescribed Dose 3,000 CGy ARIA RADIATION ONCOLOGY Plan Primary Reference Point Right Axilla ARIA RADIATION ONCOLOGY 12/16/2020 10:5 3 AM EDT Physician Radiation Oncology RADIATION ONCOLO GY ORDERABLES Final Result ARIA RADIATION ONCOLOGY documented in this encounter Visit Diagnoses Not on filedocumented in this encounter Additional Health Concerns Assessment Noted Time A fall risk assessment has been complete d for the patient 11/26/2020 2:59 PM EDT documented as of this encounter Care Teams Rn Pacu Relationship Specialty Start Date End Date Michele Wright MD [address] [id number] PCP - General 10/11/20 Edgar Szymanski MD [address] [address] Radiation Oncologist Radiation Therapy 03/14/20 4 documented as of this encounter
--- OUTSIDE RECORDS SUMMARY | 2024-05-03 13:46 | XMS_ITS | Encounter Summary ---
Author Organization Healthcare Address [address] [place], [place] [address] Care Team Providers Care Computer Programming Professor Name Role Phone Michele Wright MD Primary Care Provider + [phone] Edgar Szymanski MD Unavailable [phone] Encounter Details Date Type Department Care Team (Latest Contact Info) Description 12/16/2020 11:45 AM EDT - 12/16/2020 11:59 PM EDT Hospital Encounter [facility] Radiation [id number] [place] [address] Discharge Disposition: Still a Patient Social History [...] Respiratory 800 [facility], [address]nd [place] [address] 07/17/2024 1:30 PM EST Appointment [facility] Radiology [address] [place] [address] 07/20/2024 2:50 PM EST Office Visit Pav CC Head, Neck & Respiratory 800 [facility], [address]nd [place] [address] Divine Carpenter MD 800 [facility] Diane Zuniga [facility] [address] [place] [address] documented as of this encounter Visit Diagnoses Not on filedocumented in this encounter Additional Health Concerns Assessment Noted Time A fall risk assessment has been complete d for the patient 11/26/2020 2:59 PM EDT documented as of this encounter Care Teams Computer Programming Professor Relationship Specialty Start Date End Date Michele Wright MD [address] [place] [address] PCP - General 10/11/20 Edgar Szymanski MD 800 [facility] [address] [place] [address] Radiation Oncologist Radiation Therapy 03/14/20 4 documented as of this encounter
--- OUTSIDE RECORDS SUMMARY | 2024-05-03 13:46 | XMS_ITS | Encounter Summary ---
Author Organization [facility] Address [address] [place] [address] Care Team Providers Care Pharmacy Tech Customer Service Name Role Phone Michele Wright MD Primary Care Provider + [phone] Edgar Szymanski MD Unavailable [phone] Reason for Visit * Radiation Therapy (Routine) - Closed Specialty Diagnoses / Procedures Referred By Contac t Referred To Contact Radiation Oncology Diagnoses 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) Procedures Rad Onc Intent to Treat Edgar Szymanski MD [address] [facility] [address] [place] [address] Phone: tel: fax: [facility] Radiation [id number] [place] [address] Phone: tel: fax: Referral ID Status Reason Start Date Expiration Date V isits Requested Visits Authorized [id number] Closed Perform Procedure 11/26/2020 05/25/2021 1 10 Encounter Details Date Type Department Care Team (Latest Contact Info) Description 12/16/2020 10:21 AM EDT - 12/16/2020 11:44 AM EDT Hospital Encounter [facility] Radiation [address] [address] Discharge Disposition: Still a Patient [...] Head, Neck & Respiratory 800 [facility], 2nd [place] [address] 07/17/2024 1:30 PM EST Appointment [facility] G Radiology [address] [place] [address] 07/20/2024 2:50 PM EST Office Visit Pav CC Head, Neck & Respiratory 800 [facility], 2nd [place] [address] Divine Carpenter MD 800 [facility] [address] [place] [address] documented as of this encounter Visit Diagnoses Not on filedocumented in this encounter Additional Health Concerns Assessment Noted Time A fall risk assessment has been complete d for the patient 11/26/2020 2:59 PM EDT documented as of this encounter Care Teams Pharmacy Tech Customer Service Relationship Specialty Start Date End Date Michele Wright MD [address] [place] [address] PCP - General 10/11/20 Edgar Szymanski MD 800 [facility] [address] [place] [address] Radiation Oncologist Radiation Therapy 03/14/20 4 documented as of this encounter
--- OUTSIDE RECORDS SUMMARY | 2024-05-03 13:46 | XMS_ITS | Encounter Summary ---
Author Organization [facility] Address [address] [place] [address] Care Team Providers Care Contract Programmer Name Role Phone Michele Wright MD Primary Care Provider + [phone] Edgar Szymanski MD Unavailable [phone] Reason for Visit * Radiation Therapy (Routine) - Closed Specialty Diagnoses / Procedures Referred By Contac t Referred To Contact Radiation Oncology Diagnoses 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) Procedures Rad Onc Intent to Treat Edgar Szymanski MD [address] [facility] [address] [place] [address] Phone: tel: fax: [facility] Radiation [address] [id number] [place] [address] Phone: tel: fax: Referral ID Status Reason Start Date Expiration Date V isits Requested Visits Authorized [id number] Closed Perform Procedure 11/26/2020 05/25/2021 1 10 Encounter Details Date Type Department Care Team (Latest Contact Info) Description 12/12/2020 10:27 AM EDT - 12/12/2020 11:59 PM EDT Hospital Encounter [facility] Radiation [address] [address] Discharge Disposition: Still a Patient [...] 800 [facility], [address]nd [place] [address] 07/17/2024 1:30 PM EST Appointment [facility] Radiology [address] [place] [address] 07/20/2024 2:50 PM EST Office Visit Pav CC Head, Neck & Respiratory 800 [facility], [address]nd [place] [address] Divine Carpenter MD 800 [facility] [address] [place] [address] documented as of this encounter Visit Diagnoses Not on filedocumented in this encounter Additional Health Concerns Assessment Noted Time A fall risk assessment has been complete d for the patient 11/26/2020 2:59 PM EDT documented as of this encounter Care Teams Contract Programmer Relationship Specialty Start Date End Date Michele Wright MD [address] [place] [address] PCP - General 10/11/20 Edgar Szymanski MD 800 [facility] [address] [place] [address] Radiation Oncologist Radiation Therapy 03/14/20 4 documented as of this encounter
--- OUTSIDE RECORDS SUMMARY | 2024-05-03 13:46 | XMS_ITS | Encounter Summary ---
Author Organization Healthcare Address [address] [place] [address] Care Team Providers Care Heel Compressor Name Role Phone Michele Wright MD Primary Care Provider + [phone] Edgar Szymanski MD Unavailable [phone] Encounter Details Date Type Department Care Team (Late st Contact Info) Description 12/10/2020 Orders Only [facility] Radiation [id number] [place] [address] Radiation Oncology, Physician, [address] [place], [place] [address] Social History Tobacco Use Types Packs/Day Years [...] & Respiratory [address] [place] [address] 07/17/2024 1:30 PM EST Appointment [facility] Radiology [address] [place] [address] 07/20/2024 2:50 PM EST Office Visit Pav CC Head, Neck & Respiratory 800 [facility], [address]nd [place] [address] Divine Carpenter MD 800 [facility] [address] [place] [address] documented as of this encounter Procedures Procedure Name Priority Date/Time Associated Diagnosis Comments RAD ONC ARIA SESSION SUMMARY Routine 12/10/2020 12:15 PM EDT documented in this encounter Results * Rad Onc Aria Session Summary (12/10/2020 12:15 PM EDT) Course ID C3 ARIA RADIATION ONCOLOGY Course Intent Palliative ARIA RADIATION ONCOLOGY Course Start Date 12/03/2020 12:19 PM ARIA RADIATION ONCOLOGY Course First Treatment Date 12/09/2020 11:43 AM ARIA RADIATION ONCOLOGY Course Last Treatment Date 12/10/2020 12:14 PM ARIA RADIATION ONCOLOGY Course Elapsed Days 1 ARIA RADIATION ONCOLOGY Reference Point ID Right Axilla ARIA RADIATION ONCOLOGY Reference Point Dosage Given to Date 6 Gy ARIA RADIATION ONCOLOGY Reference Point Session Dosage Given 3 Gy ARIA RADIATION ONCOLOGY Plan ID [id number] RTAx ARIA RADIATION ONCOLOGY Plan Name Right Axilla Obliques ARIA RADIATION ONCOLOGY Plan Fractions Treated to Date 2 ARIA RADIATION ONCOLOGY Plan Total Fractions Prescribed 10 ARIA RADIATION ONCOLOGY Plan Prescribed Dose Per Fraction 3 Gy ARIA RADIATION ONCOLOGY Plan Total Prescribed Dose 3,000 CGy ARIA RADIATION ONCOLOGY Plan Primary Reference Point Right Axilla ARIA RADIATION ONCOLOGY 12/10/2020 12:1 5 PM EDT Physician Radiation Oncology RADIATION ONCOLO GY ORDERABLES Final Result ARIA RADIATION ONCOLOGY documented in this encounter Visit Diagnoses Not on filedocumented in this encounter Additional Health Concerns Assessment Noted Time A fall risk assessment has been complete d for the patient 11/26/2020 2:59 PM EDT documented as of this encounter Care Teams Heel Compressor Relationship Specialty Start Date End Date Michele Wright MD [address] [id number] PCP - General 10/11/20 Edgar Szymanski MD [address] [address] Radiation Oncologist Radiation Therapy 03/14/20 4 documented as of this encounter
--- OUTSIDE RECORDS SUMMARY | 2024-05-03 13:46 | XMS_ITS | Encounter Summary ---
Author Organization Healthcare Address [address] [place] [address] Care Team Providers Care Labor And Employment Paralegal Name Role Phone Michele Wright MD Primary Care Provider + [phone] Edgar Szymanski MD Unavailable [phone] Encounter Details Date Type Department Care Team (Late st Contact Info) Description 12/19/2020 Orders Only [facility] Radiation [id number] [place] [address] Radiation Oncology, Physician, [address] [place], [place] [phone] Social History Tobacco Use Types Packs/Day Years [...] & Respiratory [address] [place] [address] 07/17/2024 1:30 PM EST Appointment [facility] G Radiology [address] [place] [address] 07/20/2024 2:50 PM EST Office Visit Pav CC Head, Neck & Respiratory 800 [facility], 2nd [place] [address] Divine Carpenter MD 800 [facility] [address] [place] [address] documented as of this encounter Procedures Procedure Name Priority Date/Time Associated Diagnosis Comments RAD ONC ARIA SESSION SUMMARY Routine 12/19/2020 10:55 AM EDT documented in this encounter Results * Rad Onc Aria Session Summary (12/19/2020 10:55 AM EDT) Course ID C3 ARIA RADIATION ONCOLOGY Course Intent Palliative ARIA RADIATION ONCOLOGY Course Start Date 12/03/2020 12:19 PM ARIA RADIATION ONCOLOGY Course First Treatment Date 12/09/2020 11:43 AM ARIA RADIATION ONCOLOGY Course Last Treatment Date 12/19/2020 10:55 AM ARIA RADIATION ONCOLOGY Course Elapsed Days 10 ARIA RADIATION ONCOLOGY Reference Point ID Right Axilla ARIA RADIATION ONCOLOGY Reference Point Dosage Given to Date 27 Gy ARIA RADIATION ONCOLOGY Reference Point Session Dosage Given 3 Gy ARIA RADIATION ONCOLOGY Plan ID [id number] RTAx ARIA RADIATION ONCOLOGY Plan Name Right Axilla Obliques ARIA RADIATION ONCOLOGY Plan Fractions Treated to Date 9 ARIA RADIATION ONCOLOGY Plan Total Fractions Prescribed 10 ARIA RADIATION ONCOLOGY Plan Prescribed Dose Per Fraction 3 Gy ARIA RADIATION ONCOLOGY Plan Total Prescribed Dose 3,000 CGy ARIA RADIATION ONCOLOGY Plan Primary Reference Point Right Axilla ARIA RADIATION ONCOLOGY 12/19/2020 10:5 5 AM EDT Physician Radiation Oncology RADIATION ONCOLO GY ORDERABLES Final Result ARIA RADIATION ONCOLOGY documented in this encounter Visit Diagnoses Not on filedocumented in this encounter Additional Health Concerns Assessment Noted Time A fall risk assessment has been complete d for the patient 11/26/2020 2:59 PM EDT documented as of this encounter Care Teams Labor And Employment Paralegal Relationship Specialty Start Date End Date Michele Wright MD [address] [id number] PCP - General 10/11/20 Edgar Szymanski MD [address] [address] Radiation Oncologist Radiation Therapy 03/14/20 4 documented as of this encounter
--- OUTSIDE RECORDS SUMMARY | 2024-05-03 13:47 | XMS_ITS | Encounter Summary ---
Author Organization Healthcare Address [address] [place], [place] [address] Care Team Providers Care Portfolio Strategist Name Role Phone Michele Wright MD Primary Care Provider [phone] Edgar Szymanski MD Unavailable [phone] Encounter Details Date Type Department Care Team (Latest Contact Info) Description 12/03/2020 8:38 AM EDT - 12/03/2020 11:59 PM EDT Hospital Encounter [facility] Radiation [id number] [place] [address] Edgar Szymanski MD [address] [place] [address] Discharge Disposition: Still a Patient Social History [...] Respiratory 800 [facility], [address] [place] [address] 07/17/2024 1:30 PM EST Appointment [facility] G Radiology [address] [place] [address] 07/20/2024 2:50 PM EST Office Visit Pav CC Head, Neck & Respiratory 800 [facility], [address] [place] [address] Divine Carpenter MD 800 [facility] Diane Zuniga [facility] [address] [place] [address] documented as of this encounter Visit Diagnoses Not on filedocumented in this encounter Additional Health Concerns Assessment Noted Time A fall risk assessment has been complete d for the patient 11/26/2020 2:59 PM EDT documented as of this encounter Care Teams Portfolio Strategist Relationship Specialty Start Date End Date Michele Wright MD [address] [place] [address] PCP - General 10/11/20 Edgar Szymanski MD 800 [facility] [address] [place] [address] Radiation Oncologist Radiation Therapy 03/14/20 4 documented as of this encounter
--- OUTSIDE RECORDS SUMMARY | 2024-05-03 13:47 | XMS_ITS | Encounter Summary ---
Author Organization [facility] Address [address] [place] [address] Care Team Providers Care Teacher Instrumental Name Role Phone Michele Wright MD Primary Care Provider [phone] Edgar Szymanski MD Unavailable [phone] Reason for Referral * Radiation Therapy (Routine) - Closed Specialty Diagnoses / Procedures Referred By Contac t Referred To Contact Radiation Oncology Diagnoses 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) Procedures Rad Onc Intent to Treat Edgar Szymanski MD [address] [address] Phone: tel: fax: [facility] CC Radiation 800 [facility] [id number] [place] [address] Phone: tel: fax: Referral ID Status Reason Start Date Expiration Date V isits Requested Visits Authorized [id number] Closed Perform Procedure 11/26/2020 05/25/2021 1 10 * Radiation Therapy (Routine) - Closed Specialty Diagnoses / Procedures Referred By Contac t Referred To Contact Radiation Oncology Diagnoses 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) Procedures Rad Onc Treatment Planning CT Simulation Edgar Szymanski MD [address] [address] Phone: tel: fax: Referral ID Status Reason Start Date Expiration Date Visits Re quested Visits Authorized [id number] Closed 11/26/2020 05/25/2021 1 1 Reason for Visit * Reason Comments Follow-up Head And Neck Cancer Encounter Details Date Type Department Care Team (Latest Contact Info) Description 11/26/2020 2:53 PM EDT - 11/26/2020 11:59 PM EDT Hospital Encounter [facility] CC Radiation [address] [place] [address] Edgar Szymanski MD [address] [place] [address] Neoplasm related pain (Primary Dx); Brachial plexopathy; Cancer of larynx (CMS/HCC); Secondary malignant neoplasm of chest wall (CMS/HCC) Discharge Disposition: Still a Patient Social History [...] Sign Reading Time Taken Comments Blood Pressure 157/80 11/26/2020 2:56 PM EDT Pulse 54 11/26/2020 2:56 PM EDT Temperature - - Respiratory Rate 16 11/26/2020 2:56 PM EDT Oxygen Saturation 92% 11/26/2020 2:56 PM EDT Inhaled Oxygen Concentration - - Weight 110 kg (241 lb 13.5 oz) 11/26/2020 2:56 P M EDT Height 177.8 cm (5' 10 ) 11/26/2020 2:56 PM EDT Body Mass Index 34.7 11/26/2020 2:56 PM EDT documented in this [...] Miscellaneous Notes * Progress Notes - Gil Kimble MD - 11/26/2020 3:30 PM EDT Images from the original note were not included. [facility] RADIATION MEDICINE RADIATION ONCOLOGY CONSULTATION NOTE PATIENT NAME: Anibal Barreto : 1965 DATE OF SERVICE: 11/26/2020 REFERRING PROVIDER: Dr. Ellis DIAGNOSIS AND Cancer Staging Cancer of larynx (CMS/HCC) Staging form: Larynx - Glottis, AJCC 8th Edition - Clinical stage from 02/19/2017: Stage ZULAY (cT3, cN2c, cM0) - Signed by Bailey Ellis MD on 10/14/2020 Histopathologic type: Squamous cell carcinoma, NOS Stage prefix: Initial diagnosis - Pathologic stage from 03/22/2018: Stage III (rpT3, pN0, cM0) - Signed by Bailey Ellis MD on 10/14/2020 Histopathologic type: Squamous cell carcinoma, NOS Stage prefix: Recurrence - Pathologic stage from 11/21/2019: Stage IVC (rpTX, pNX, pM1) - Signed by Bailey Ellis MD on 10/14/2020 Histopathologic type: Squamous cell carcinoma, NOS Stage prefix: Recurrence PRIOR RADIATION THERAPY: [1] 7000 cGy delivered in 35 fractions at 200 cGy per fraction for T3N3M0 supraglottic larynx cancer completed 07/09/2017 [2] 3000 cGy in 3 fractions to the right upper lung extrapleural nodule outside the surgical wedge resected bed via 6X SBRT completed on 03/29/20. KARNOFSKY PERFORMANCE STATUS: 90 - Able to carry on normal activity; minor signs or symptoms of disease. 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 He is status post right video- assisted thorascopic surgery wedge resection with a new right apical extrapleural nodule outside of the surgical bed that was concerning for residual disease. He was treated with SBRT for this metastatic site of cancer as noted above. INTERVAL HISTORY: Since we saw him ~1 year ago, he has been on q6W pembrolizumab with Dr. Jayden ratliff MULTI-20 protocol; unfortunately he has an area of progressive disease at the site of VATS entry on the chest wall just below the axilla. He's describing burning and neuropathic symptoms in the right arm. This may or may not be related to the cancer in his axilla. He does not have significant pain with palpation of the axilla, but the lesion is palpable. He denies fevers, chills, nausea, vomiting, pleuritic chest pain, rib pain, dyspnea, new cough, or hemoptysis. REVIEW OF SYSTEMS: A 14 point review of systems was conducted with pertinent positives and negatives above in the HPI.RN note and history reviewed with the patient. Review of Systems All other systems reviewed and are negative. PAST MEDICAL HISTORY: Past Medical History: Diagnosis Date ??? Essential (primary) hypertension HTN (hypertension) ??? Heartburn Heart burn ??? Neoplasm related pain 10/14/2020 ??? Other [...] disorder ??? Unspecified osteoarthritis, unspecified site Arthritis PAST SURGICAL HISTORY: Past Surgical History: Procedure Laterality Date ??? ESOPHAGOGASTRODUODENOSCOPY N/A Esophagogastroduodenoscopy from [facility] ??? GASTROSTOMY TUBE PLACEMENT N/A Percutaneous endoscopic gastrostomy tube insertion from [facility] ??? LARYNGOSCOPY N/A Laryngoscopy from [facility] ??? OTHER SURGICAL HISTORY N/A Neck dissection modified radical from [facility] ??? OTHER SURGICAL HISTORY N/A Percutaneous endoscopic gastrostomy tube removal from [facility] ??? OTHER SURGICAL HISTORY N/A Laryngectomy from [facility] ??? OTHER SURGICAL HISTORY N/A Trachectomy from [facility] MEDICATIONS: Current Outpatient Medications: ??? ALPRAZolam (Xanax) 1 MG tablet, 1 tab(s) orally 2 times a day, As Needed, Disp: , Rfl: ??? gabapentin (Neurontin) 600 MG tablet, Take 1 tablet (600 mg total) by mouth 4 (four) times a day., Disp: 120 tablet, Rfl: 1 ??? ibuprofen (Childrens Ibuprofen) 100 MG/5ML suspension, 30 milliliter(s) orally every 6 hours, As Needed, Disp: , Rfl: ??? levothyroxine (Synthroid, Levoxyl) 150 MCG tablet, TAKE 1 TABLET DAILY., Disp: , Rfl: ??? lisinopril 5 MG tablet, , Disp: , Rfl: ??? loratadine (Claritin) 10 MG tablet, 1 tab(s) orally once a day, Disp: , Rfl: ??? morphine CR (MS Contin) 60 MG 12 hr tablet, Take 1 tablet (60 mg total) by mouth every 12 (twelve) hours. Do not crush, chew, or split., Disp: 60 tablet, Rfl: 0 ??? omeprazole (PriLOSEC) [address] capsule, TAKE 1 CAPSULE ONCE A DAY, Disp: , Rfl: ??? oxyCODONE (Roxicodone) 30 MG immediate release tablet, Take 1-2 tablets (30- 60 mg total) by mouth every 6 (six) hours if needed for severe pain. For cancer related pain, Disp: 200 tablet, Rfl: 0 ??? candesartan-hydroCHLOROthiazide (Atacand HCT) 32-12.5 MG tablet, , Disp: , Rfl: ??? Lidocaine 2 % gel, Apply 1 application topically 5 (five) times a day. (Patient not taking: Reported on 11/26/2020), Disp: 30 g, Rfl: 2 ??? LISINOPRIL PO, , Disp: , Rfl: ??? metoprolol tartrate (Lopressor) 50 MG tablet, 1 tab(s) orally 2 times a day, Disp: , Rfl: ??? predniSONE (Deltasone) 10 MG tablet, , Disp: , Rfl: ALLERGIES: Allergies Allergen Reactions ??? Docetaxel Rash, Shortness of breath and Unknown Patient very dyspnic, flushed, severe back pain. Patient very dyspnic, flushed, severe back pain. Patient very dyspnic, flushed, severe back pain. ??? Methadone Rash, Other and Unknown SOCIAL HISTORY: Social History Tobacco Use ??? Smoking status: Passive Smoke Exposure - Never Smoker ??? Smokeless tobacco: Never Used Substance Use Topics ??? Alcohol use: Not Currently Comment: Alcoholic Drinks/day: Quit consuming alcohol in remote past ??? Drug use: Not on file FAMILY HISTORY: Family History Problem Relation Name Age of Onset ??? Stroke Father ??? Liver cancer Mother FH: liver cancer ??? Breast cancer Sister ??? Uterine cancer Sister ??? Heart attack Sister ??? Kidney failure Father FH: kidney failure ??? Uterine cancer Sister FH: uterine cancer PHYSICAL EXAM: Vital Signs: Visit Vitals BP 157/80 Pulse 54 Resp 16 Ht 1.778 m (5' 10 ) Wt 110 kg (241 lb 13.5 oz) SpO2 92% BMI 34.70 kg/m?? Smoking Status Passive Smoke Exposure - Never Smoker BSA 2.33 m?? Physical Exam Constitutional: Appearance: Normal appearance. HENT: Head: Normocephalic and atraumatic. Nose: Nose normal. Mouth/Throat: Mouth: Mucous membranes are moist. Pharynx: No oropharyngeal exudate or posterior oropharyngeal erythema. Eyes: Extraocular Movements: Extraocular movements intact. Pupils: Pupils are equal, round, and reactive to light. Cardiovascular: Rate and Rhythm: Normal rate. Pulses: Normal pulses. Pulmonary: Effort: Pulmonary effort is normal. Breath sounds: No stridor. Abdominal: Palpations: Abdomen is soft. Tenderness: There is no abdominal tenderness. Musculoskeletal: General: Normal range of motion. Arms: Cervical back: Normal range of motion. Comments: Palpable subcutaneous lesion along the right chest wall anterior to mid-axillary line at the level of the nipple deep to VATS scar; lesion is mobile and ~2-3 cm in size; it is nontender Skin: General: Skin is warm and dry. Neurological: Mental Status: He is alert and oriented to person, place, and time. Sensory: Sensory deficit present. Comments: Right arm neuropathic pain and numbness Psychiatric: Mood and Affect: Mood normal. Behavior: Behavior normal. PATHOLOGY AND LABORATORY STUDIES: All pertinent lab and pathology results were reviewed. No new pathology IMAGING: The following radiologic studies were independently reviewed by the staff attending and myself. CT Chest w IV Contrast 11/21/2020 Narrative Exam/Procedure: CT CHEST W IV CONTRAST ordered by BAILEY ELLIS, [id number] CLINICAL INDICATION: Pulmonary nodule follow-up. Head and neck cancer. TECHNIQUE: Multiple CT helical images were obtained from thoracic inlet through upper abdomen with administration of IV contrast. 100 mL of Omnipaque-300 were administered intravenously. Total DLP (Dose-Length Product): 1275 mGy*cm. Please note: The reported value represents the total of one or more individual components during the CT acquisition on this date and at this time, and assuch, the same value may appear in more than one CT report depending on the interpreting/reporting physicians. COMPARISON: September 02, 2020 FINDINGS: Mediastinum and Pleura: Tracheostomy with evidence of prior laryngectomy. Esophageal speaking device in place. No enlarging mediastinal adenopathy. No pleural effusion. Lungs: Bandlike right apical scarring is similar to comparison. There is some peripheral fibrosis in the anterior right lung. Some mild bandlike atelectasis in the left lower lobe. Upper Abdomen: No suspicious lesions in the partially visualized upper abdomen. Musculoskeletal: A previously noted right chest wall lesion has significantly increased in size from comparison now measuring up to 40 mm (series 3 image 52). Multiple right chest wall collaterals noted. No bony destructive lesion. Impression Right chest wall/axillary mass, increased from prior, worrisome for primary or metastatic malignancy. Tissue confirmation recommended. CRITICAL RESULT: No. COMMUNICATION: Per this written report. Signed by Louie Liu on 11/21/2020 4:32 PM ASSESSMENT AND PLAN: Anibal Barreto is a 55 y.o. 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 He was taken off the MULTI-20 protocol d/t progression and we intend to treat his only site of cancer progression with palliative radiation. He was agreeable to returning for CT simulation next week. He wishes to proceed with radiation treatment as it was described to him. All of his questions wereanswered to the patient's satisfaction. Mr. Barreto has been given a printout regarding future appointments and the plan of care. He has our contact information should he have questions or concerns. A total of 45 minutes were spent preparing, performing an examination, counseling, educating the patient, and care coordination with more than 25 minutes of that time used for counseling the patient and coordination of care. Thank you for allowing us to take part in the care of Anibal Barreto. Please do not hesitate to contact our clinic if you have any questions or concerns. NOTES FOR TREATMENT PLANNING History of prior radiation: YES History of auto-immune disease: no History of ulcerative colitis or Chrons disease: no History of connective tissue disorder: no Pacemaker or ICD: no Able to lay flat: yes Transportation available: yes Gil Kimble MD; PGY-2; Radiation Oncology [facility] RADIATION [address] [facility] [address] Cosigned by Edgar Szymanski MD at 11/27/2020 8:12 AM EDT Associated attestation - Edgar Szymanski MD - 11/27/2020 8:12 AM EDT I saw and evaluated the patient with the resident/fellow. I discussed the case with the resident/fellow and agree with the findings and plan as documented.Recurrence Rt axilla . MRI spine for new weakness rt arm documented in this encounter Plan of Treatment Upcoming Encounters Date Type Department Care Team ([facility] Contact Info) Description 07/17/2024 12:30 PM EST Clinical Support Pav CC Head, Neck & Respiratory [address] [facility], [address]nd [place] [address] 07/17/2024 1:30 PM EST Appointment [facility] G Radiology [address] [place] [address] 07/20/2024 2:50 PM EST Office Visit Pav CC Head, Neck & Respiratory [address] [facility], [address] [place] [address] Bailey Ellis MD 800 [facility] Diane Zuniga [facility] [address] [place] [address] Scheduled Orders Name Type Priority Associated Diagnoses Orde r Schedule Rad Onc Treatment Planning CT Simulation Radiation Oncology Routine 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) Ordered: 11/26/2020 Rad Onc Intent to Treat Radiation Oncology Routine 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) Expected: 12/03/2020 (Approximate), Expires: 11/26/2021 documented as of this encounter Visit Diagnoses Diagnosis 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) Brachial plexopathy 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, unspecified site Secondary malignant neoplasm of chest wall (CMS/HCC) documented in this encounter Additional Health Concerns Assessment Noted Time A fall risk assessment has been complete d for the patient 11/26/2020 2:59 PM EDT documented as of this encounter Care Teams Teacher Instrumental Relationship Specialty Start Date End Date Michele Wright MD [address] [place] [address] PCP - General 10/11/20 Edgar Szymanski MD 800 [facility] [address] [place] [address] Radiation Oncologist Radiation Therapy 03/14/20 4 documented as of this encounter
--- OUTSIDE RECORDS SUMMARY | 2024-05-03 13:47 | XMS_ITS | Encounter Summary ---
Author Organization [facility] Address [address] [place], [place] [id number] Care Team Providers Care Safety Consultant Name Role Phone Michele Wright MD Primary Care Provider + [phone] Edgar Szymanski MD Unavailable [phone] Shun Hurst MD Unavailable [phone] Divine Carpenter MD Unavailable [phone] Ambika Cain CF-SUPERVISOR BORDER DEPARTMENT Unavailable Unavailab le Encounter Details Date Type Department Care Team (Late st Contact Info) Description 12/19/2020 Lab Requisition [facility] H Lab [address] [place] [address] Divine Carpenter MD 800 [facility] [address] [place] [address] Malignant neoplasm of larynx, unspecified (CMS/HCC) Social History Tobacco Use Types Packs/Day [...] & Respiratory [address] [place] [address] 07/17/2024 1:30 PM EST Appointment [facility] G Radiology [address] [place] [address] 07/20/2024 2:50 PM EST Office Visit Pav CC Head, Neck & Respiratory 800 [facility], [address] [place] [address] Divine Carpenter MD [address] [facility] [address] [place] [address] documented as of this encounter Procedures Procedure Name Priority Date/Time Associated Diagnosis Comments AP MISCELLANEOUS LAB TEST (SO) Routine 12/03/2020 12:00 AM EDT Malignant neoplasm of larynx, unspecified (CMS/HCC) documented in this encounter Results * - Miscellaneous Test (12/03/2020 12:00 AM EDT) Test name [facility] CDX 12/31/2020 12:51 PM EDT [facility] Test Result See Scan 12/31/2020 12:51 PM EDT [facility] See Scanned Result 12/31/2020 12:51 PM EDT [facility] Tissue 12/03/2020 12/19/2020 11: 50 AM EDT us Divine Carpenter MD LAB REF LAB BLOOD AND FLUID ORD Final Result [facility] documented in this encounter Visit Diagnoses Diagnosis Malignant neoplasm of larynx, unspecified (CMS/HCC) documented in this encounter Additional Health Concerns Infection Onset Date Last Indicated Resolved Time COVID-19 Rule-Out 06/12/2021 06/12/2021 06/12/2021 12:25 PM EST COVID 19 (Confirmed) Comment:IPA has verified patient has a COVID-19 positive result. A chart review has been completed, EPI PUI has been completed and sent to appropriate Health Dept. [facility] Ccna: [place] 06/12/2021 06/12/2021 07/03/2021 5: 23 AM EST Assessment Noted Time A fall risk assessment has been complete d for the patient 11/26/2020 2:59 PM EDT documented as of this encounter Care Teams Safety Consultant Relationship Specialty Start Date End Date Michele Wright MD [address] [place] [address] PCP - General 10/11/20 Edgar Szymanski MD 800 [facility] [address] [place] [address] Radiation Oncologist Radiation Therapy 03/14/20 4 Shun Hurst MD [address] [facility] [address] [place] [address] Surgeon Neurosurgery 02/24/21 Divine Carpenter MD 800 [facility] Diane Zuniga [facility] [address] [place] [address] Medical Oncologist Medical Oncology 06/13/21 Ambika Cain CF-SUPERVISOR BORDER DEPARTMENT Speech Language Pathologist Speech Pathology 10/06/23 documented as of this encounter
--- OUTSIDE RECORDS SUMMARY | 2024-05-03 13:47 | XMS_ITS | Encounter Summary ---
Author Organization Healthcare Address [address] [id number] Care Team Providers Care Spreader Operator Automatic Name Role Phone Michele Wright MD Primary Care Provider + [phone] Edgar Szymanski MD Unavailable [phone] Shun Hurst MD Unavailable [phone] Divine Carpenter MD Unavailable [phone] Ambika Cain CF-RN MIDWIFE Unavailable Unavailab le Encounter Details Date Type Department Care Team (Late st Contact Info) Description 10/30/2020 Abstract [facility] [address] [place] [address] Duarte Shelton MD 800 [facility] [address] [place] [address] Social History Tobacco Use Types Packs/Day Years Used Date Smoking Tobacco: Passive Smo ke Exposure - Never Smoker Alcohol Use Standard Drinks/Week Comments Not Currently 0 (1 standard drink = 0.6 oz pure alcohol) Alcoholic Drinks/day: Quit consuming alcohol in remote past Sex and Gender Information Value Date Recorded [...] & Respiratory [address] [place] [address] 07/17/2024 1:30 PM EST Appointment [facility] G Radiology [address] [place] [address] 07/20/2024 2:50 PM EST Office Visit Pav CC Head, Neck & Respiratory 800 [facility], [address] [place] [address] Divine Carpenter MD [address] Zuniga [facility] [address] [place] [address] documented as of this encounter Visit Diagnoses Not on filedocumented in this encounter Additional Health Concerns Infection Onset Date Last Indicated Resolved Time COVID-19 Rule-Out 06/12/2021 06/12/2021 06/12/2021 12:25 PM EST COVID 19 (Confirmed) Comment:IPAC has verified patient has a COVID-19 positive result. A chart review has been completed, EPI PUI has been completed and sent to appropriate Health Dept. [facility] Data Integration Developer: Doyle 06/12/2021 06/12/2021 07/03/2021 5: 23 AM EST documented as of this encounter Care Teams Spreader Operator Automatic Relationship Specialty Start Date End Date Michele Wright MD [address] [place], [place] [id number] PCP - General 10/11/20 Edgar Szymanski MD 800 [facility] [address] [place] [address] Radiation Oncologist Radiation Therapy 03/14/20 4 Shun Hurst MD [address] [facility] [address] [place] [address] Surgeon Neurosurgery 02/24/21 Divine Carpenter MD 800 [facility] Diane Zuniga [facility] [address] [place] [address] Medical Oncologist Medical Oncology 06/13/21 Ambika Cain CF-RN MIDWIFE Speech Language Pathologist Speech Pathology 10/06/23 documented as of this encounter
--- OUTSIDE RECORDS SUMMARY | 2024-05-03 13:47 | XMS_ITS | Encounter Summary ---
Author Organization Healthcare Address [address] [place], [place] [address] Care Team Providers Care Fountain Operator Name Role Phone Michele Wright MD Primary Care Provider + [phone] Edgar Szymanski MD Unavailable [phone] Encounter Details Date Type Department Care Team (Late st Contact Info) Description 10/14/2020 Orders Only Pav CC Head, Neck & Respiratory [address] [facility], [address]nd [place] [address] Divine Carpenter MD 800 [facility] [address] [place] [address] Cancer of larynx (CMS/HCC) (Primary [...] Sign Reading Time Taken Comments Blood Pressure - - Pulse - - Temperature - - Respiratory Rate - - Oxygen Saturation - - Inhaled Oxygen Concentration - - Weight 116 kg (255 lb 11.7 oz) 10/14/2020 9:00 A M EDT Height 177.8 cm (5' 10 ) 10/14/2020 9:00 AM EDT Body Mass Index 36.69 10/14/2020 9:00 AM EDT documented in this encounter Plan of Treatment Upcoming Encounters Date Type Department Care Team (Late st Contact Info) Description 07/17/2024 12:30 PM EST Clinical Support Pav CC Head, Neck & Respiratory [address] [facility], [address]nd [place] [address] 07/17/2024 1:30 PM EST Appointment PAV G Radiology [address] [place] [address] 07/20/2024 2:50 PM EST Office Visit Pav CC Head, Neck & Respiratory [address] [facility], 2nd [place] [address] Divine Carpenter MD [address] [facility] [address] [place] [address] documented as of this encounter Results * (ABNORMAL) Comprehensive metabolic panel (11/25/2020 10:30 AM EDT) Glucose, Plasma 106(H) 74 - 99 mg/dL 11/25/2020 11:37 AM EDT [facility] BUN, Plasma 22(H) 7 - 21 mg/dL 11/25/2020 11:37 AM EDT [facility] Creatinine, Plasma 0.96 0.80 - 1.30 mg/dL 11/25/2020 11:37 AM EDT [facility] BUN/Creatinine Ratio 23 11/25/2020 11:37 AM EDT [facility] Sodium, Plasma 138 136 - 145 mmol/L 11/25/2020 11:37 AM EDT [facility] Potassium, Plasma 4.6 3.7 - 4.8 mmol/L 11/25/2020 11:37 AM EDT [facility] Chloride, Plasma 102 97 - 107 mmol/L 11/25/2020 11:37 AM EDT [facility] CO2, Plasma 28 22 - 29 mmol/L 11/25/2020 11:37 AM EDT [facility] Anion Gap 8 6 - 16 mmol/L 11/25/2020 11:37 AM EDT [facility] Total Calcium, Plasma 9.4 8.9 - 10.2 mg/dL 11/25/2020 11:37 AM EDT [facility] Total Protein 7.3 6.3 - 7.9 g/dL 11/25/2020 11:37 AM EDT [facility] Albumin, Plasma 4.2 3.5 - 5.2 g/dL 11/25/2020 11:37 AM EDT [facility] AST, Plasma 20 12 - 40 U/L 11/25/2020 11:37 AM EDT [facility] ALT, Plasma 22 11 - 41 U/L 11/25/2020 11:37 AM EDT [facility] Alkaline Phosphatase, Plasma 78 40 - 115 U/L 11/25/2020 11:37 AM EDT [facility] Total Bilirubin, Plasma 0.9 0.2 - 1.1 mg/dL 11/25/2020 11:37 AM EDT [facility] eGFR >60 >60 mL/min/1.7 3m*2 11/25/2020 11:37 AM EDT [facility] Comment:eGFR = estimated GFR ; eGFR units = mL/min/1.73 sq meters Chronic Kidney Disease is considered if eGFR <60 mL/min/1.73 sq meters Kidney failure is considered if eGFR is <15 mL/min/1.73 sq meters. eGFR assumes steady state plasma creatinine concentration; not applicable if renal function is rapidly changing or patient is on dialysis. eGFR, if AFR/AM >60 >60 mL/min/1.7 3m*2 11/25/2020 11:37 AM EDT [facility] Comment:eGFR = estimated GFR ; eGFR units = mL/min/1.73 sq meters Chronic Kidney Disease is considered if eGFR <60 mL/min/1.73 sq meters Kidney failure is considered if eGFR is <15 mL/min/1.73 sq meters. eGFR assumes steady state plasma creatinine concentration; not applicable if renal function is rapidly changing or patient is on dialysis. Blood Venous blood specimen / Unknown Venipuncture / Unknown 11/25/2020 10:30 AM EDT 11/25/2020 10:58 AM EDT Divine Carpenter MD LAB BLOOD ORDERABLES Final R esult [facility] [address] [place] [address] * (ABNORMAL) CBC and differential (11/25/2020 10:30 AM EDT) WBC Count 7.42 3.70 - 10.30 10*3/uL LAB HEMATOLOGY METHOD 11/25/2020 11:16 AM EDT [facility] RBC Count 5.38 4.60 - 6.10 10*6/uL LAB HEMATOLOGY METHOD 11/25/2020 11:16 AM EDT [facility] HGB 15.5 13.7 - 17.5 g/dL LAB HEMATOLOGY METHOD 11/25/2020 11:16 AM EDT [facility] HCT 48.0 40.0 - 51.0 % LAB HEMATOLOGY METHOD 11/25/2020 11:16 AM EDT [facility] Platelet Count 172 155 - 369 10*3/uL LAB HEMATOLOGY METHOD 11/25/2020 11:16 AM EDT [facility] MCV 89 79 - 98 fL LAB HEMATOLOGY METHOD 11/25/2020 11:16 AM EDT [facility] MCH 28.8 26.0 - 32.0 pg LAB HEMATOLOGY METHOD 11/25/2020 11:16 AM EDT [facility] MCHC 32.3 30.7 - 35.5 g/dL LAB HEMATOLOGY METHOD 11/25/2020 11:16 AM EDT [facility] RDW 14.3 11.5 - 14.5 % LAB HEMATOLOGY METHOD 11/25/2020 11:16 AM EDT [facility] MPV 10.7 8.8 - 12.5 fL LAB HEMATOLOGY METHOD 11/25/2020 11:16 AM EDT [facility] nRBC 0.0 <=0.0 per 100 WBCs LAB HEMATOLOGY METHOD 11/25/2020 11:16 AM EDT [facility] Differential Type Automated LAB HEMATOLOGY METHOD 11/25/2020 11:16 AM EDT [facility] Neutrophils % 79.0 % LAB HEMATOLOGY METHOD 11/25/2020 11:16 AM EDT [facility] Lymphocytes % 9.0 % LAB HEMATOLOGY METHOD 11/25/2020 11:16 AM EDT [facility] Monocytes % 11.0 % LAB HEMATOLOGY METHOD 11/25/2020 11:16 AM EDT [facility] Eosinophils % 1.0 % LAB HEMATOLOGY METHOD 11/25/2020 11:16 AM EDT [facility] Basophils % 0.0 % LAB HEMATOLOGY METHOD 11/25/2020 11:16 AM EDT [facility] Immature Granulocytes % 0.0 % LAB HEMATOLOGY METHOD 11/25/2020 11:16 AM EDT [facility] Neutrophils Absolute 5.80 1.60 - 6.10 10*3/uL LAB HEMATOLOGY METHOD 11/25/2020 11:16 AM EDT [facility] Lymphocytes Absolute 0.70(L) 1.20 - 3.90 10*3/uL LAB HEMATOLOGY METHOD 11/25/2020 11:16 AM EDT [facility] Monocytes Absolute 0.79 0.30 - 0.90 10*3/uL LAB HEMATOLOGY METHOD 11/25/2020 11:16 AM EDT [facility] Eosinophils Absolute 0.09 0.00 - 0.50 10*3/uL LAB HEMATOLOGY METHOD 11/25/2020 11:16 AM EDT [facility] Basophils Absolute 0.02 0.00 - 0.10 10*3/uL LAB HEMATOLOGY METHOD 11/25/2020 11:16 AM EDT [facility] Immature Granulocytes Absolute 0.02 0 - 0.06 10*3/uL LAB HEMATOLOGY METHOD 11/25/2020 11:16 AM EDT [facility] Blood Venous blood specimen / Unknown Venipuncture / Unknown 11/25/2020 10:30 AM EDT 11/25/2020 11:05 AM EDT Narrative [facility] - 11/25/2020 11:16 AM EDT Therapeutic decision making should be based on absolute values, rather than percentages. 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
--- OUTSIDE RECORDS SUMMARY | 2024-05-03 13:47 | XMS_ITS | Encounter Summary ---
Author Organization [facility] Address [address] [place] [address] Care Team Providers Care Firer Portable Boiler Name Role Phone Michele Wright MD Primary Care Provider + [phone] Edgar Szymanski MD Unavailable [phone] Encounter Details Date Type Department Care Team (Latest Contact Info) Description 11/25/2020 Travel Social History Tobacco Use Types Packs/Day [...] & Respiratory [address] [place] [address] 07/17/2024 1:30 PM EST Appointment PAV G Radiology [address] [place] [address] 07/20/2024 2:50 PM EST Office Visit Pav CC Head, Neck & Respiratory 800 [facility], 2nd [place] [address] Divine Carpenter MD 800 [facility] [address] [place] [address] documented as of this encounter Visit Diagnoses Not on filedocumented in this encounter Additional Health Concerns Assessment Noted Time A fall risk assessment has been complete d for the patient 11/25/2020 10:17 AM EDT documented as of this encounter Care Teams Firer Portable Boiler Relationship Specialty Start Date End Date Michele Wright MD [address] [place] [address] PCP - General 10/11/20 Edgar Szymanski MD 800 [facility] [address] [place] [address] Radiation Oncologist Radiation Therapy 03/14/20 4 documented as of this encounter
--- OUTSIDE RECORDS SUMMARY | 2024-05-03 13:47 | XMS_ITS | Encounter Summary ---
Author Organization Healthcare Address [address] [place] [address] Care Team Providers Care Wax Coating Machine Tender Name Role Phone Michele Wright MD Primary Care Provider + [phone] Edgar Szymanski MD Unavailable [phone] Encounter Details Date Type Department Care Team (Late st Contact Info) Description 12/09/2020 Orders Only P[facility] CC Radiation [id number] [place] [address] Radiation Oncology, Physician, [address] [place], [place] [id number] Social History Tobacco Use Types Packs/Day Years [...] & Respiratory [address] , [address] [place] [address] 07/17/2024 1:30 PM EST Appointment PAV G Radiology [address] [place] [address] 07/20/2024 2:50 PM EST Office Visit Pav CC Head, Neck & Respiratory 800 [facility], [address]nd [place] [address] Divine Carpenter MD 800 [facility] [address] [place] [address] documented as of this encounter Procedures Procedure Name Priority Date/Time Associated Diagnosis Comments RAD ONC ARIA SESSION SUMMARY Routine 12/09/2020 11:47 AM EDT documented in this encounter Results * Rad Onc Aria Session Summary (12/09/2020 11:47 AM EDT) Course ID C3 ARIA RADIATION ONCOLOGY Course Intent Palliative ARIA RADIATION ONCOLOGY Course Start Date 12/03/2020 12:19 PM ARIA RADIATION ONCOLOGY Course First Treatment Date 12/09/2020 11:43 AM ARIA RADIATION ONCOLOGY Course Last Treatment Date 12/09/2020 11:46 AM ARIA RADIATION ONCOLOGY Course Elapsed Days 0 ARIA RADIATION ONCOLOGY Reference Point ID Right Axilla ARIA RADIATION ONCOLOGY Reference Point Dosage Given to Date 3 Gy ARIA RADIATION ONCOLOGY Reference Point Session Dosage Given 3 Gy ARIA RADIATION ONCOLOGY Plan ID [id number] RTAx ARIA RADIATION ONCOLOGY Plan Name Right Axilla Obliques ARIA RADIATION ONCOLOGY Plan Fractions Treated to Date 1 ARIA RADIATION ONCOLOGY Plan Total Fractions Prescribed 10 ARIA RADIATION ONCOLOGY Plan Prescribed Dose Per Fraction 3 Gy ARIA RADIATION ONCOLOGY Plan Total Prescribed Dose 3,000 CGy ARIA RADIATION ONCOLOGY Plan Primary Reference Point Right Axilla ARIA RADIATION ONCOLOGY 12/09/2020 11:4 7 AM EDT Physician Radiation Oncology RADIATION ONCOLO GY ORDERABLES Final Result ARIA RADIATION ONCOLOGY documented in this encounter Visit Diagnoses Not on filedocumented in this encounter Additional Health Concerns Assessment Noted Time A fall risk assessment has been complete d for the patient 11/26/2020 2:59 PM EDT documented as of this encounter Care Teams Wax Coating Machine Tender Relationship Specialty Start Date End Date Michele Wright MD [address] [place] [id number] PCP - General 10/11/20 Edgar Szymanski MD [address] [address] Radiation Oncologist Radiation Therapy 03/14/20 4 documented as of this encounter
--- OUTSIDE RECORDS SUMMARY | 2024-05-03 13:47 | XMS_ITS | Encounter Summary ---
Author Organization [facility] Address [address] [place] [address] Care Team Providers Care Block Feeder Name Role Phone Michele Wright MD Primary Care Provider + [phone] Edgar Szymanski MD Unavailable [phone] Reason for Visit * Radiation Therapy (Routine) - Closed Specialty Diagnoses / Procedures Referred By Contac t Referred To Contact Radiation Oncology Diagnoses 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) Procedures Rad Onc Intent to Treat Edgar Szymanski MD [address] [facility] [address] [place] [address] Phone: tel: fax: PAV CC Radiation [id number] [place] [address] Phone: tel: fax: Referral ID Status Reason Start Date Expiration Date V isits Requested Visits Authorized [id number] Closed Perform Procedure 11/26/2020 05/25/2021 1 10 Encounter Details Date Type Department Care Team (Latest Contact Info) Description 12/10/2020 11:49 AM EDT - 12/10/2020 12:08 PM EDT Hospital Encounter P[facility] CC Radiation [address] [address] Discharge Disposition: Still a Patient [...] Respiratory 800 [facility], [address]nd [place] [address] 07/17/2024 1:30 PM EST Appointment PAV G Radiology [address] [place] [address] 07/20/2024 2:50 PM EST Office Visit Pav CC Head, Neck & Respiratory 800 [facility], [address]nd [place] [address] Divine Carpenter MD 800 [facility] [address] [place] [address] documented as of this encounter Visit Diagnoses Not on filedocumented in this encounter Additional Health Concerns Assessment Noted Time A fall risk assessment has been complete d for the patient 11/26/2020 2:59 PM EDT documented as of this encounter Care Teams Block Feeder Relationship Specialty Start Date End Date Michele Wright MD [address] [place] [address] PCP - General 10/11/20 Edgar Szymanski MD 800 [facility] [address] [place] [address] Radiation Oncologist Radiation Therapy 03/14/20 4 documented as of this encounter
--- OUTSIDE RECORDS SUMMARY | 2024-05-03 13:47 | XMS_ITS | Encounter Summary ---
Author Organization Healthcare Address [address] [place] [address] Care Team Providers Care Motor Hotel Manager Name Role Phone Michele Wright MD Primary Care Provider [phone] Edgar Szymanski MD Unavailable [phone] Encounter Details Date Type Department Care Team (Late st Contact Info) Description 11/01/2020 Abstract [facility] Internal Medicine [address], 3rd [place] [address] Michele Wright MD [address] [place] [address] Social History Tobacco Use Types Packs/Day Years [...] Sign Reading Time Taken Comments Blood Pressure 143/76 04/12/2019 10:21 AM EST Pulse 48 04/12/2019 10:21 AM EST Temperature - - Respiratory Rate - - Oxygen Saturation - - Inhaled Oxygen Concentration - - Weight 128 kg (282 lb 15.7 oz) 04/12/2019 10:21 AM EST Height 177.8 cm (5' 10 ) 04/12/2019 10:21 AM EST Body Mass Index 40.6 04/12/2019 10:21 AM EST documented in this encounter Plan of Treatment Upcoming Encounters Date Type Department Care Team (Late st Contact Info) Description 07/17/2024 12:30 PM EST Clinical Support Pav CC Head, Neck & Respiratory 800 [facility], [address]nd [place] [address] 07/17/2024 1:30 PM EST Appointment PAV G Radiology [address] [place] [address] 07/20/2024 2:50 PM EST Office Visit Pav CC Head, Neck & Respiratory 800 [facility], [address]nd [place] [address] Divine Carpenter MD 800 [facility] [address] [place] [address] documented as of this encounter Visit Diagnoses Not on filedocumented in this encounter Care Teams Motor Hotel Manager Relationship Specialty Start Date End Date Michele Wright MD [address] [place], [place] [id number] PCP - General 10/11/20 Edgar Szymanski MD 800 [facility] [address] [place] [address] Radiation Oncologist Radiation Therapy 03/14/20 4 documented as of this encounter
--- OUTSIDE RECORDS SUMMARY | 2024-05-03 13:47 | XMS_ITS | Encounter Summary ---
Author Organization Healthcare Address [address] [place], [place] [address] Care Team Providers Care Industry Operations Investigator Name Role Phone Michele Wright MD Primary Care Provider + [phone] Edgar Szymanski MD Unavailable [phone] Encounter Details Date Type Department Care Team (Late st Contact Info) Description 10/23/2020 Abstract Pav CC Head, Neck & Respiratory 800 [facility], [address]nd [place] [address] Divine Carpenter MD 800 [facility] [address] [place] [address] Social History Tobacco Use Types Packs/Day Years [...] & Respiratory [address] [place] [address] 07/17/2024 1:30 PM EST Appointment PAV G Radiology [address] [place] [address] 07/20/2024 2:50 PM EST Office Visit Pav CC Head, Neck & Respiratory 800 [facility], [address]nd [place] [address] Divine Carpenter MD [address] [facility] [address] [place] [address] documented as of this encounter Visit Diagnoses Not on filedocumented in this encounter Care Teams Industry Operations Investigator Relationship Specialty Start Date End Date Michele Wright MD [address] [place] [address] PCP - General 10/11/20 Edgar Szymanski MD [address] [place] [address] Radiation Oncologist Radiation Therapy 03/14/20 4 documented as of this encounter
--- OUTSIDE RECORDS SUMMARY | 2024-05-03 13:47 | XMS_ITS | Encounter Summary ---
Author Organization [facility] Address [address] [place] [address] Care Team Providers Care Business Consultant Name Role Phone Michele Wright MD Primary Care Provider + [phone] Edgar Szymanski MD Unavailable [phone] Reason for Visit * Reason Comments Labs peripheral stick Encounter Details Date Type Department Care Team ([facility] Contact Info) Description 11/25/2020 9:30 AM EDT Clinical Support Pav CC Head, Neck & Respiratory [address] [place] [address] Social History Tobacco Use Types Packs/Day Years [...] Upcoming Encounters Date Type Department Care Team ([facility] Contact Info) Description 07/17/2024 12:30 PM EST Clinical Support Pav CC Head, Neck & Respiratory [address] [place] [address] 07/17/2024 1:30 PM EST Appointment PAV G Radiology [address] [place] [address] 07/20/2024 2:50 PM EST Office Visit Pav CC Head, Neck & Respiratory 800 [facility], [address]nd [place] [address] Divine Carpenter MD 800 [facility] Diane Zuniga [facility] [address] [place] [address] documented as of this encounter Visit Diagnoses Not on filedocumented in this encounter Additional Health Concerns Assessment Noted Time A fall risk assessment has been complete d for the patient 11/25/2020 10:17 AM EDT documented as of this encounter Care Teams Business Consultant Relationship Specialty Start Date End Date Michele Wright MD [address] [place] [address] PCP - General 10/11/20 Edgar Szymanski MD 800 [facility] [address] [place] [address] Radiation Oncologist Radiation Therapy 03/14/20 4 documented as of this encounter
--- OUTSIDE RECORDS SUMMARY | 2024-05-03 13:47 | XMS_ITS | Encounter Summary ---
Author Organization [facility] Address [address] [place] [address] Care Team Providers Care Managing Director Name Role Phone Michele Wright MD Primary Care Provider + [phone] Edgar Szymanski MD Unavailable [phone] Encounter Details Date Type Department Care Team (Latest Contact Info) Description 11/21/2020 Travel Social History Tobacco Use Types Packs/Day [...] have Coronavirus / COVID-19? No / Unsure 11/21/2020 2:10 PM EDT documented as of this encounter Plan of Treatment Upcoming Encounters Date Type Department Care Team (Late st Contact Info) Description 07/17/2024 12:30 PM EST Clinical Support Pav CC Head, Neck & Respiratory [address] [place] [address] 07/17/2024 1:30 PM EST Appointment PAV G Radiology [address] [place] [address] 07/20/2024 2:50 PM EST Office Visit Pav CC Head, Neck & Respiratory 800 [facility], 2nd [place] [address] Divine Carpenter MD 800 [facility] Diane Zuniga [facility] [address] [place] [address] documented as of this encounter Visit Diagnoses Not on filedocumented in this encounter Care Teams Managing Director Relationship Specialty Start Date End Date Michele Wright MD [address] [place] [address] PCP - General 10/11/20 Edgar Szymanski MD 800 [facility] [address] [place] [address] Radiation Oncologist Radiation Therapy 03/14/20 4 documented as of this encounter
--- OUTSIDE RECORDS SUMMARY | 2024-05-03 13:47 | XMS_ITS | Encounter Summary ---
Author Organization Healthcare Address [address] [place], [place] [address] Care Team Providers Care Mechanic/Welder Name Role Phone Michele Wright MD Primary Care Provider + [phone] Edgar Szymanski MD Unavailable [phone] Encounter Details Date Type Department Care Team (Latest Contact Info) Description 12/02/2020 8:35 AM EDT - 12/02/2020 11:59 PM EDT Hospital Encounter P[facility] CC Radiation [id number] [place] [address] Discharge Disposition: Still a Patient Social History [...] 800 [facility], 2nd [place] [address] 07/17/2024 1:30 PM EST Appointment PAV G Radiology [address] [place] [address] 07/20/2024 2:50 PM EST Office Visit Pav CC Head, Neck & Respiratory 800 [facility], 2nd [place] [address] Divine Carpenter MD 800 [facility] Diane Zuniga [facility] [address] [place] [address] documented as of this encounter Visit Diagnoses Not on filedocumented in this encounter Additional Health Concerns Assessment Noted Time A fall risk assessment has been complete d for the patient 11/26/2020 2:59 PM EDT documented as of this encounter Care Teams Mechanic/Welder Relationship Specialty Start Date End Date Michele Wright MD [address] [place] [address] PCP - General 10/11/20 Edgar Szymanski MD 800 [facility] [address] [place] [address] Radiation Oncologist Radiation Therapy 03/14/20 4 documented as of this encounter
--- OUTSIDE RECORDS SUMMARY | 2024-05-03 13:47 | XMS_ITS | Encounter Summary ---
Author Organization [facility] Address [address] [place], [place] [address] Care Team Providers Care Accounts Manager Name Role Phone Michele Wright MD Primary Care Provider + [phone] Edgar Szymanski MD Unavailable [phone] Reason for Visit * Reason Comments Follow-up * Episode Based Medications (Routine) - Closed Specialty Diagnoses / Procedures Referred By Contac t Referred To Contact Diagnoses Cancer of larynx (CMS/HCC) Divine Carpenter MD 800 [facility] [address] [address] Phone: tel: fax: [facility] [address] [place] [address] Phone: tel: Referral ID Status Reason Start Date Expiration Date Visits Re quested Visits Authorized [id number] Closed 10/14/2020 02/28/2021 1 10 Encounter Details Date Type Department Care Team (Late st Contact Info) Description 11/25/2020 9:40 AM EDT Office Visit Pav CC Head, Neck & Respiratory 800 [facility], 2nd [place] [address] Divine Carpenter MD 800 [facility] [address] [address] Asymmetric SNHL (sensorineural hearing loss) (Primary Dx); Cancer of larynx (CMS/HCC); Neoplasm related pain Social History Tobacco Use [...] Sign Reading Time Taken Comments Blood Pressure 136/74 11/25/2020 10:24 AM EDT Pulse 56 11/25/2020 10:24 AM EDT Temperature 36.7 ??C (98.1 ??F) 11/25/2020 10:24 AM E DT Respiratory Rate 18 11/25/2020 10:24 AM EDT Oxygen Saturation 93% 11/25/2020 10:24 AM EDT Inhaled Oxygen Concentration - - Weight 110 kg (242 lb 1 oz) 11/25/2020 10:24 AM EDT Height 177.5 cm (5' 9.88 ) 11/25/2020 10:24 AM E DT Body Mass Index 34.85 11/25/2020 10:24 AM EDT documented in this encounter Miscellaneous Notes * Progress Notes - Divine Carpenter MD - 11/25/2020 9:40 AM EDT MEDICAL ONCOLOGY FOLLOW-UP NOTE Patient Information Patient Name: Anibal Barreto Date of : 1965 REFERRING PHYSICIAN: Divine Carpenter MD [address] [place] [phone] Michele Wright MD Encounter Date: 11/25/2020 Treatment Diagnosis: Cancer Staging Cancer of larynx [...] with adenopathy in levels 2 through 4 [id number] 3 PET/CT scan dated 02/19/2017 showed an intensely hypermetabolic epiglottis and mucosa extending to the true vocal cords, slightly asymmetric involving the right pyriform sinus and aryepiglottic fold with 27 4 mSUV along with intensely hypermetabolic bilateral cervical lymph nodes 4 A biopsy performed here at [facility] during direct examination on 03/03/2017 [...] limited neck dissection with ALT free flap, [id number] 7 Subsequent followup scans were negative for [...] q6W pembrolizumab on 03/14/20 and with SBRT andcontinuing on this therapy 11 Urgent Care visit for burning sensation to skin on his RUE and chest Cancer of larynx (CMS/HCC) 02/19/2017 Cancer Staged [...] 10/14/2020 03/14/2020 - 11/24/2020 Research Study Participant [id number]: Pembrolizumab Every 42 Days Every 84 Days Plan Provider: Divine Carpenter MD Treatment goal: Palliative Line of treatment: Second Line Associated studies: Priming Immunotherapy in Advanced Disease with Radiation Currently, he denies fever, or chills, dysuria, hematuria, constipation, melena, diarrhea, hematochezia, hematemesis, abdominal pain, shortness of breath, cough, sputum production, mental status changes, but has new onset right arm numbness/pain and neuropathy, but denies chest pain, palpitations. Problem List and Medications Reviewed in this encounter by me personally Objective Performance Status 0: Fully active, able to carry on all pre-disease performance without restriction Blood pressure 136/74, pulse 56, temperature 36.7 ??C (98.1 ??F), temperature source Oral, resp. rate 18, height 1.775 m (5' 9.88 ), weight 110 kg (242 lb 1 oz), SpO2 93 %. EXAM GENERAL: chronically ill appearing, alert, male in mild distress EYES: PERRLA EOMI; No scleral icterus HEENT: Neck woody, with radiation changes, no thyromegaly, no masses. Trach with valve intact Eyes: Pupils are symmetric and reactive to light, conjunctiva and eyelids are normal. Ears, Nose, Mouth and Throat: External Nose: no mass or deformity, External Ears: no mass or deformity. Respiratory: Normal respiratory effort, + bilateral coarse breath sounds. No wheeze or rales noted. Cardiovascular: Regular sinus rhythm, S1 normal, S2 normal. No murmur, rub or gallop noted. Gastrointestinal: Non-distended, soft, non tender, no hepatomegaly, no splenomegaly and no mass noted. Lymphatics: No abnormal adenopathy in neck, supraclavicular, but a large right axillary node, approximately 4 cm in greatest dimension. Psychiatric: Normal mood and affect NEURO: Alert, Oriented x 3, CN II-XII intact except for phonation. Motor 5/5 in costing manager, bicep, tricep, on right, and 4+/5 right costing manager, but intact bicept and tricept on right. There is numbness in hand and forearm on the right, left is intact,. affect appropriate, memory intact to short and long-term events, gait normal LABORATORIES STUDIES: reviewed by me personally CBC WBC 7.42 Hb 15.5 Plt 172 Hct 48.0 ANC 5.80 BMP Na 138 Cl 102 BUN 22 (H) Glu 106 (H) K 4.6 Co2 28 Cr 0.96 Ca 9.4 iCa ?? Mg ??, Phos ?? LFT AST 20 AlkPhos 78 T Prot 7.3 ALK 22 Bili 0.9 Alb ?? RADIOLOGY: I visualized the recent imaging below and discussed the current radiology findings with the patientin detail and released the report gave copies of the reports to the [...] recommended. Assessment/Plan 1. Cancer management : Cancer Staging Cancer of larynx (CMS/HCC), Staging form: Larynx - Glottis, AJCC 8th Edition, Clinical: Stage ZULAY Cancer of larynx (CMS/HCC), Staging form: Larynx - Glottis, AJCC 8th Edition, Pathologic: Stage III Cancer of larynx (CMS/HCC), Staging form: Larynx - Glottis, AJCC 8th Edition, Pathologic: Stage IVCThis represents a life threatening illness for which urgent cancer treatment is indicated. - I independently visualized and reviewed the current radiology and pathology findings with the patient in detail and answered all questions. I agree that this shows progressive disease in axillary node/mass as well as pleura. - I updated the plan of care: this represents confirmed PD - and I will take him off MULTI-20 and stop Pembrolizumab and refer to Dr. Szymanski for palliative radiation. I have discussed this with Dr. Szymanski - Will screen for HN-30, as well as potentially for HN-35 for relapse after immunotherapy. And willawait this result before determining final steps after radiaiton - I reviewed liver and renal function as well as bone marrow function - RTC 4W 2. 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 Monitoring for the emergence of hypothyroidism Lab Results Component Value Date TSH 1.15 10/14/2020 - Continue levothyroxine at current dose - This will be periodically monitored as we continue therapy, due to the potential for worsening ofthyroid function from radiation and systemic cancer therapy. MD RAHEL Singh [facility] CC HEAD, NECK & RESPIRATORY 800 [facility] [address] Michele Wright MD No orders of the defined types were placed in this encounter. documented in this encounter Plan of Treatment Upcoming Encounters Date Type Department Care Team (Late st Contact Info) Description 07/17/2024 12:30 PM EST Clinical Support Pav CC Head, Neck & Respiratory 800 [facility], [address]nd [place] [address] 07/17/2024 1:30 PM EST Appointment [facility] G Radiology [address] [place] [address] 07/20/2024 2:50 PM EST Office Visit Pav CC Head, Neck & Respiratory 800 [facility], [address] [place] [address] Divine Carpenter MD 800 [facility] [address] [place] [address] documented as of this encounter Procedures Procedure Name Priority Date/Time Associated Diagnosis Comments CBC WITH AUTO DIFFERENTIAL Routine 11/25/2020 10:30 AM EDT Cancer of larynx (CMS/HCC) COMPREHENSIVE METABOLIC PANEL, PLASMA Routine 11/25/2020 10:30 AM EDT Cancer of larynx (CMS/HCC) documented in this encounter Results * (ABNORMAL) CBC and differential (11/25/2020 10:30 AM EDT) WBC Count 7.42 3.70 - 10.30 10*3/uL LAB HEMATOLOGY METHOD 11/25/2020 11:16 AM EDT [facility] RBC Count 5.38 4.60 - 6.10 10*6/uL LAB HEMATOLOGY METHOD 11/25/2020 11:16 AM EDT [facility] HGB 15.5 13.7 - 17.5 g/dL LAB HEMATOLOGY METHOD 11/25/2020 11:16 AM EDT [facility] HCT 48.0 40.0 - 51.0 % LAB HEMATOLOGY METHOD 11/25/2020 11:16 AM EDT [facility] Platelet Count 172 155 - 369 10*3/uL LAB HEMATOLOGY METHOD 11/25/2020 11:16 AM EDT [facility] MCV 89 79 - 98 fL LAB HEMATOLOGY METHOD 11/25/2020 11:16 AM EDT [facility] MCH 28.8 26.0 - 32.0 pg LAB HEMATOLOGY METHOD 11/25/2020 11:16 AM EDT [facility] MCHC 32.3 30.7 - 35.5 g/dL LAB HEMATOLOGY METHOD 11/25/2020 11:16 AM EDT [facility] RDW 14.3 11.5 - 14.5 % LAB HEMATOLOGY METHOD 11/25/2020 11:16 AM EDT [facility] MPV 10.7 8.8 - 12.5 fL LAB HEMATOLOGY METHOD 11/25/2020 11:16 AM EDT [facility] nRBC 0.0 <=0.0 per 100 WBCs LAB HEMATOLOGY METHOD 11/25/2020 11:16 AM EDT [facility] Differential Type Automated LAB HEMATOLOGY METHOD 11/25/2020 11:16 AM EDT [facility] Neutrophils % 79.0 % LAB HEMATOLOGY METHOD 11/25/2020 11:16 AM EDT [facility] Lymphocytes % 9.0 % LAB HEMATOLOGY METHOD 11/25/2020 11:16 AM EDT [facility] Monocytes % 11.0 % LAB HEMATOLOGY METHOD 11/25/2020 11:16 AM EDT [facility] Eosinophils % 1.0 % LAB HEMATOLOGY METHOD 11/25/2020 11:16 AM EDT [facility] Basophils % 0.0 % LAB HEMATOLOGY METHOD 11/25/2020 11:16 AM EDT [facility] Immature Granulocytes % 0.0 % LAB HEMATOLOGY METHOD 11/25/2020 11:16 AM EDT [facility] Neutrophils Absolute 5.80 1.60 - 6.10 10*3/uL LAB HEMATOLOGY METHOD 11/25/2020 11:16 AM EDT [facility] Lymphocytes Absolute 0.70(L) 1.20 - 3.90 10*3/uL LAB HEMATOLOGY METHOD 11/25/2020 11:16 AM EDT [facility] Monocytes Absolute 0.79 0.30 - 0.90 10*3/uL LAB HEMATOLOGY METHOD 11/25/2020 11:16 AM EDT [facility] Eosinophils Absolute 0.09 0.00 - 0.50 10*3/uL LAB HEMATOLOGY METHOD 11/25/2020 11:16 AM EDT [facility] Basophils Absolute 0.02 0.00 - 0.10 10*3/uL LAB HEMATOLOGY METHOD 11/25/2020 11:16 AM EDT [facility] Immature Granulocytes Absolute 0.02 0 - 0.06 10*3/uL LAB HEMATOLOGY METHOD 11/25/2020 11:16 AM EDT [facility] Blood Venous blood specimen / Unknown Venipuncture / Unknown 11/25/2020 10:30 AM EDT 11/25/2020 11:05 AM EDT Narrative [facility] - 11/25/2020 11:16 AM EDT Therapeutic decision making should be based on absolute values, rather than percentages. us Divine Carpenter MD LAB BLOOD ORDERABLES Final R esult [facility] [address] [place] [address] * (ABNORMAL) Comprehensive metabolic panel (11/25/2020 10:30 AM EDT) Glucose, Plasma 106(H) 74 - 99 mg/dL 11/25/2020 11:37 AM EDT [facility] BUN, Plasma 22(H) 7 - 21 mg/dL 11/25/2020 11:37 AM EDT [facility] Creatinine, Plasma 0.96 0.80 - 1.30 mg/dL 11/25/2020 11:37 AM EDT [facility] BUN/Creatinine Ratio 23 11/25/2020 11:37 AM EDT [facility] Sodium, Plasma 138 136 - 145 mmol/L 11/25/2020 11:37 AM EDT [facility] Potassium, Plasma 4.6 3.7 - 4.8 mmol/L 11/25/2020 11:37 AM EDT [facility] Chloride, Plasma 102 97 - 107 mmol/L 11/25/2020 11:37 AM EDT [facility] CO2, Plasma 28 22 - 29 mmol/L 11/25/2020 11:37 AM EDT [facility] Anion Gap 8 6 - 16 mmol/L 11/25/2020 11:37 AM EDT [facility] Total Calcium, Plasma 9.4 8.9 - 10.2 mg/dL 11/25/2020 11:37 AM EDT [facility] Total Protein 7.3 6.3 - 7.9 g/dL 11/25/2020 11:37 AM EDT [facility] Albumin, Plasma 4.2 3.5 - 5.2 g/dL 11/25/2020 11:37 AM EDT [facility] AST, Plasma 20 12 - 40 U/L 11/25/2020 11:37 AM EDT [facility] ALT, Plasma 22 11 - 41 U/L 11/25/2020 11:37 AM [facility] Alkaline Phosphatase, Plasma 78 40 - 115 U/L 11/25/2020 11:37 AM T [facility] Total Bilirubin, Plasma 0.9 0.2 - 1.1 mg/dL [facility]2020 [facility] e[facility] >60 >60 mL/min/1.7 3m*2 11/25/2020 11:37 AM [facility] Comment:eGFR = estimated GFR ; [...] >60 >60 mL/min/1.7 3m*2 11/25/2020 11:37 [facility] Comment:eGFR = estimated GFR ; eGFR [...] 10:30 AM EDT 11/25/2020 10:58 AM EDT Dviine Carpenter MD LAB BLOOD ORDERABLES Final R esult [facility] [address] [place] [address] documented in this encounter Visit Diagnoses Diagnosis Asymmetric SNHL (sensorineural hearing loss)- Primary Sensorineural hearing loss, asymmetrical 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, unspecified site Neoplasm related pain Neoplasm related pain (acute) (chronic) documented in this encounter Additional Health Concerns Assessment Noted Time A fall risk assessment has been complete d for the patient 11/25/2020 10:17 AM EDT documented as of this encounter Care Teams Accounts Manager Relationship Specialty Start Date End Date Michele Wright MD [address] [place] [address] PCP - General 10/11/20 Edgar Szymanski MD 800 [facility] [address] [place] [address] Radiation Oncologist Radiation Therapy 03/14/20 4 documented as of this encounter
--- OUTSIDE RECORDS SUMMARY | 2024-05-03 13:47 | XMS_ITS | Encounter Summary ---
Author Organization [facility] Address [address] [place], [place] [address] Care Team Providers Care Rubber Liner Name Role Phone Michele Wright MD Primary Care Provider + [phone] Edgar Szymanski MD Unavailable [phone] Encounter Details Date Type Department Care Team (Late st Contact Info) Description 11/26/2020 Orders Only Pav CC Head, Neck & Respiratory 800 [facility], [address]nd [place] [address] Divine Carpenter MD 800 [facility] [address] [place] [address] Cancer of larynx (CMS/HCC) (Primary [...] Respiratory 800 [facility], [address]nd [place] [address] 07/17/2024 1:30 PM EST Appointment [facility] G Radiology [address] [place] [address] 07/20/2024 2:50 PM EST Office Visit Pav CC Head, Neck & Respiratory 800 [facility], [address]nd [place] [phone] Divine Carpenter MD 800 [facility] Diane Zuniga [facility] [address] [place] [address] documented as of this encounter Visit Diagnoses Diagnosis 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, unspecified site documented in this encounter Additional Health Concerns Assessment Noted Time A fall risk assessment has been complete d for the patient 11/26/2020 2:59 PM EDT documented as of this encounter Care Teams Rubber Liner Relationship Specialty Start Date End Date Michele Wright MD [address] [place] [address] PCP - General 10/11/20 Edgar Szymanski MD 800 [facility] [address] [place] [address] Radiation Oncologist Radiation Therapy 03/14/20 4 documented as of this encounter
--- OUTSIDE RECORDS SUMMARY | 2024-05-03 13:47 | XMS_ITS | Encounter Summary ---
Author Organization [facility] Address [address] [place], [place] [address] Care Team Providers Care Print Finishing Worker Name Role Phone Michele Wright MD Primary Care Provider + [phone] Edgar Szymanski MD Unavailable [phone] Encounter Details Date Type Department Care Team (Latest Contact Info) Description 12/09/2020 8:35 AM EDT - 12/09/2020 11:08 AM EDT Hospital Encounter [facility] CC Radiation [id number] [place] [address] Discharge Disposition: Still a Patient Social History [...] [facility], 2nd [place] [address] 07/17/2024 1:30 PM EST Appointment [facility] G Radiology [address] [place] [address] 07/20/2024 2:50 PM EST Office Visit Pav CC Head, Neck & Respiratory 800 [facility], 2nd [place] [phone] Divine Carpenter MD 800 [facility] [address] Zuniga [facility] [address] [place] [address] documented as of this encounter Visit Diagnoses Not on filedocumented in this encounter Additional Health Concerns Assessment Noted Time A fall risk assessment has been complete d for the patient 11/26/2020 2:59 PM EDT documented as of this encounter Care Teams Print Finishing Worker Relationship Specialty Start Date End Date Michele Wright MD [address] [place] [address] PCP - General 10/11/20 Edgar Szymanski MD 800 [facility] [address] [place] [phone] Radiation Oncologist Radiation Therapy 03/14/20 4 documented as of this encounter
--- OUTSIDE RECORDS SUMMARY | 2024-05-03 13:47 | XMS_ITS | Encounter Summary ---
Author Organization [facility] Address [address] [place] [address] Care Team Providers Care Box Storage Worker Name Role Phone Michele Wright MD Primary Care Provider + [phone] Edgar Szymanski MD Unavailable [phone] Reason for Referral * Radiation Therapy (Routine) - Closed Specialty Diagnoses / Procedures Referred By Contac t Referred To Contact Radiation Oncology Diagnoses 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) Procedures Rad Onc Intent to Treat Edgar Szymanski MD [address] [address] Phone: tel: fax: [facility] CC Radiation 800 [facility] [place] [address] Phone: tel: fax: Referral ID Status Reason Start Date Expiration Date V isits Requested Visits Authorized [id number] Closed Perform Procedure 11/26/2020 05/25/2021 1 10 Reason for Visit * Radiation Therapy (Routine) - Closed Specialty Diagnoses / Procedures Referred By Contac t Referred To Contact Radiation Oncology Diagnoses 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) Procedures Rad Onc Intent to Treat Edgar Szymanski MD [address] [address] Phone: tel: fax: [facility] CC Radiation [address] [address] Phone: tel: fax: Referral ID Status Reason Start Date Expiration Date V isits Requested Visits Authorized [id number] Closed Perform Procedure 11/26/2020 05/25/2021 1 10 Encounter Details Date Type Department Care Team (Latest Contact Info) Description 12/09/2020 11:13 AM EDT - 12/09/2020 11:59 PM EDT Hospital Encounter [facility] CC Radiation [address] [address] Cancer of larynx (CMS/HCC); Secondary malignant neoplasm [...] CC Head, Neck & Respiratory 800 [facility] [address] [place] [address] 07/17/2024 1:30 PM EST Appointment [facility] [address] [place] [address] 07/20/2024 2:50 PM EST Office Visit Pav CC Head, Neck & Respiratory 800 [facility], [address] [place] [address] Divine Carpenter MD [address] [facility] [address] [place] [address] Scheduled Orders Name Type Priority Associated Diagnoses Orde r Schedule Rad Onc Intent to Treat Radiation Oncology Routine 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) Once for 1 Occurrences starting 12/09/2020 until 12/09/2020 documented as of this encounter Visit Diagnoses Diagnosis 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, unspecified site Secondary malignant neoplasm of chest wall (CMS/HCC) documented in this encounter Additional Health Concerns Assessment Noted Time A fall risk assessment has been complete d for the patient 11/26/2020 2:59 PM EDT documented as of this encounter Care Teams Box Storage Worker Relationship Specialty Start Date End Date Michele Wright MD [address] [place] [address] PCP - General 10/11/20 Edgar Szymanski MD [address] [place] [address] Radiation Oncologist Radiation Therapy 03/14/20 4 documented as of this encounter
--- OUTSIDE RECORDS SUMMARY | 2024-05-03 13:47 | XMS_ITS | Encounter Summary ---
Author Organization [facility] Address [address] [place], [place] [address] Care Team Providers Care Complex Case Manager Name Role Phone Michele Wright MD Primary Care Provider [phone] Edgar Szymanski MD Unavailable [phone] Encounter Details Date Type Department Care Team (Latest Contact Info) Description 12/09/2020 11:09 AM EDT - 12/09/2020 11:12 AM EDT Hospital Encounter [facility] CC Radiation [address] [place] [address] Edgar Szymanski MD [address] [place] [address] Discharge Disposition: Still a Patient [...] 800 [facility], [address]nd [place] [address] 07/17/2024 1:30 PM EST Appointment P[facility] G Radiology [address] [place] [phone] 07/20/2024 2:50 PM EST Office Visit Pav CC Head, Neck & Respiratory 800 [facility], [address]nd [place] [phone] Divine Carpenter MD 800 [facility] Diane Zuniga [facility] [address] [place] [address] documented as of this encounter Visit Diagnoses Not on filedocumented in this encounter Additional Health Concerns Assessment Noted Time A fall risk assessment has been complete d for the patient 11/26/2020 2:59 PM EDT documented as of this encounter Care Teams Complex Case Manager Relationship Specialty Start Date End Date Michele Wright MD [address] [place] [address] PCP - General 10/11/20 Edgar Szymanski MD 800 [facility] [address] [place] [address] Radiation Oncologist Radiation Therapy 03/14/20 4 documented as of this encounter
--- OUTSIDE RECORDS SUMMARY | 2024-05-03 13:47 | XMS_ITS | Encounter Summary ---
Author Organization [facility] Address [address] [place] [address] Care Team Providers Care Cutting Department Supervisor Name Role Phone Michele Wright MD Primary Care Provider + [phone] Edgar Szymanski MD Unavailable [phone] Reason for Referral * Imaging (Routine) - Closed Specialty Diagnoses / Procedures Referred By Contac t Referred To Contact Radiology Diagnoses Head and neck cancer (CMS/HCC) Pulmonary nodules Procedures CT Chest w IV Contrast Bailey Ellis MD [address] [address] Phone: tel: fax: Referral ID Status Reason Start Date Expiration Date Visits Re quested Visits Authorized [id number] Closed 10/20/2020 04/18/2021 1 1 * Imaging (Routine) - Closed Specialty Diagnoses / Procedures Referred By Contac t Referred To Contact Radiology Diagnoses Head and neck cancer (CMS/HCC) Procedures CT Soft Tissue Neck w IV Contrast Bailey Ellis MD [address] [address] Phone: tel: fax: Referral ID Status Reason Start Date Expiration Date Visits Re quested Visits Authorized [id number] Closed 10/20/2020 04/18/2021 1 1 Reason for Visit * Imaging (Routine) - Closed Specialty Diagnoses / Procedures Referred By Contac t Referred To Contact Radiology Diagnoses Head and neck cancer (CMS/HCC) Pulmonary nodules Procedures CT Chest w IV Contrast Bailey Ellis MD [address] [facility] [address] [place] [address] Phone: tel: fax: Referral ID Status Reason Start Date Expiration Date Visits Re quested Visits Authorized [id number] Closed 10/20/2020 04/18/2021 1 1 Encounter Details Date Type Department Care Team (Latest Contact Info) Description 11/21/2020 2:35 PM EDT - 11/21/2020 11:59 PM EDT Hospital Encounter [facility] Radiology [address] [place] [address] Head and neck cancer (CMS/HCC); Pulmonary nodules Discharge Disposition: Home or Self Care Social [...] Medications at Time of Discharge ALPRAZolam (Xanax) 0.5 MG tablet 03/20/2017 1 ALPRAZolam (Xanax) 1 MG tablet 1 tab(s) orally 2 times a day, As Needed 09/02/2020 2 Bismuth Tribromoph-Brandi latum (XEROFORM PETROLATUM ROLL 4 X9' EX) apply to neck 1-2 times daily to keep area moisturized 07/13/2017 1 calcium carbonate (Os-Jose) 1250 (500 Ca) MG chewable tablet 1 tablet chewed twice a day 03/29/2018 1 candesartan-hydr oCHLOROthiazide (Atacand HCT) 32-12.5 MG tablet 12/23/2016 1 gabapentin (Neurontin) 600 MG tablet TAKE 1 TABLET 3 TIMES DAILY. 04/15/2018 1 gabapentin (Neurontin) 600 MG tablet 1 tab(s) orally every 6 hours . 03/04/2020 1 ibuprofen (Childrens Ibuprofen) 100 MG/5ML suspension 30 milliliter(s) orally every 6 hours, As Needed 10/14/2020 1 levothyroxine (Synthroid, Levoxyl) 150 MCG tablet TAKE 1 TABLET DAILY. 03/29/2018 2 levothyroxine (Tirosint) 150 MCG capsule 1 cap(s) orally once a day in the morning, please take 30 mins - 1 hr before eating 03/29/2018 1 lidocaine (Xylocaine) 2 % solution 06/09/2017 1 lisinopril 5 MG tablet 11/05/2020 1 LISINOPRIL PO 1 loratadine (Claritin) 10 MG tablet 1 tab(s) orally once a day 06/03/2020 1 metFORMIN (Glucophage) 500 MG tablet 12/23/2016 1 metoprolol tartrate (Lopressor) 50 MG tablet TAKE 1 TABLET EVERY 12 HOURS. 12/23/2016 1 metoprolol tartrate (Lopressor) 50 MG tablet 1 tab(s) orally 2 times a day 2 morphine CR (MS Contin) 30 MG 12 hr tablet 1 tablet every 12hrs 11/30/2017 1 morphine CR (MS Contin) 30 MG 12 hr tablet 1 tab(s) orally 2 times a day 03/04/2020 1 omeprazole (PriLOSEC) [address] capsule TAKE 1 CAPSULE ONCE A DAY 11/19/2017 1 omeprazole (PriLOSEC) [address] capsule 1 cap(s) orally once a day 09/02/2020 1 onabotulinumtoxi nA (Botox) 100 units injection Diagnosis: first bite syndromeRx: 50U botox injected into the right parotid gland over multiple sitesRefill: 0 02/07/2019 1 oxyCODONE (Roxicodone) 5 MG immediate release tablet 1 tab(s) orally every 8 hours, As Needed -PRN pain 03/04/2020 1 OXYCODONE ER PO 02/16/2019 1 predniSONE (Deltasone) 10 MG tablet 06/24/2020 1 prochlorperazine (Compazine) 10 MG tablet 03/25/2017 1 QUEtiapine (SEROquel) 25 MG tablet TAKE 1 TABLET AT BEDTIME. 01/10/2018 1 simvastatin (Zocor) 10 MG tablet TAKE 1 TABLET DAILY. 12/23/2016 1 triazolam (Halcion) 0.25 MG tablet 02/17/2017 1 documented as of this encounter Plan of Treatment Upcoming Encounters Date Type Department Care Team (Late st Contact Info) Description 07/17/2024 12:30 PM EST Clinical Support [facility] Head, Neck & Respiratory [address] [facility] [place] [address] 07/17/2024 1:30 PM EST Appointment [facility] Radiology [address] [place] [address] 07/20/2024 2:50 PM EST Office Visit [facility] Head, Neck & Respiratory [address] [facility], [address] [place] [phone] Bailey Ellis MD [address] [facility] [address] [place] [address] documented as of this encounter Procedures Procedure Name Priority Date/Time Associated Diagnosis Comments CT CHEST W IV CONTRAST Routine 11/21/2020 3:56 PM EDT Head and neck cancer (CMS/HCC) Pulmonary nodules CT SOFT TISSUE NECK W IV CONTRAST Routine 11/21/2020 3:56 PM EDT Head and neck cancer (CMS/HCC) documented in this encounter Results * CT Chest w IV Contrast (11/21/2020 3:56 PM EDT) Anatomical Region Laterality Modality Chest Computed Tomogra phy Impressions 11/21/2020 4:32 PM EDT Right chest wall/axillary mass, increased from prior, worrisome for primary or metastatic malignancy. Tissue confirmation recommended. CRITICAL RESULT: No. COMMUNICATION: Per this written report. Signed by Louie Liu on ??11/21/2020 4:32 PM Narrative 11/21/2020 4:32 PM EDT Exam/Procedure: CT CHEST W IV CONTRAST ordered by BAILEY ELLIS, [id number] CLINICAL INDICATION: Pulmonary nodule follow-up. Head and [...] wall collaterals noted. No bony destructive lesion. Procedure Note Louie Liu MD - 11/21/2020 Exam/Procedure: CT CHEST W IV CONTRAST ordered by BAILEY ELLIS,[id number] CLINICAL INDICATION: Pulmonary nodule follow-up. Head and neck cancer. TECHNIQUE: Multiple CT helical images were obtained from thoracic inlet through upperabdomen with administration of IV contrast. 100 mL of Omnipaque-300 wereadministered intravenously. Total DLP (Dose-Length Product): 1275 mGy*cm. Please note: The reportedvalue represents the total of one or more individual components during theCT acquisition on this date and at this time, and as such, the same valuemay appear in more than one CT report depending on theinterpreting/reporting physicians. COMPARISON: September 02, 2020 FINDINGS: Mediastinum and Pleura: Tracheostomy with evidence of prior laryngectomy.Esophageal speaking device in place. No enlarging mediastinal adenopathy.No pleural effusion. Lungs: Bandlike right apical scarring is similar to comparison. There issome peripheral fibrosis in the anterior right lung. Some mild bandlikeatelectasis in the left lower lobe. Upper Abdomen: No suspicious lesions in the partially visualized upperabdomen. Musculoskeletal: A previously noted right chest wall lesion hassignificantly increased in size from comparison now measuring up to 40 mm(series 3 image 52). Multiple right chest wall collaterals noted. No bonydestructive lesion. IMPRESSION: Right chest wall/axillary mass, increased from prior, worrisome forprimary or metastatic malignancy. Tissue confirmation recommended. CRITICAL RESULT: No. COMMUNICATION: Per this written report. Signed by Louie Liu on 11/21/2020 4:32 PM us Bailey Ellis MD IMG CT PROCEDURES Final Resu lt * CT Soft Tissue Neck w IV Contrast (11/21/2020 3:56 PM EDT) Anatomical Region Laterality Modality Neck Computed Tomogra phy Impressions 11/21/2020 7:01 PM EDT Extensive postsurgical and radiation effects as detailed above. No tumor recurrence or cervical adenopathy. CRITICAL RESULT: No. COMMUNICATION: Per this written report. Signed by Mya Rodriguez on ??11/21/2020 7:01 PM Narrative 11/21/2020 7:01 PM EDT Exam/Procedure: CT SOFT TISSUE NECK W IV CONTRAST ordered by BAILEY ELLIS, [id number] CLINICAL INDICATION: Head and neck cancer status post chemoradiation therapy TECHNIQUE: Helical images were obtained through the neck, and reconstructed in the axial plane on bone and soft tissue algorithm at multiple slice thicknesses. Coronal and sagittal reformatted images were created. 100 mL of Omnipaque 300 were administered intravenously. Total DLP (Dose-Length Product): 1275 mGy.cm. Please note: The reported value represents the total of one or more individual components during the CT acquisition on this date and at this time, and as such, the same value may appear in more than one CT report depending on the interpreting/reporting physicians. COMPARISON: Neck CT 09/02/2020 FINDINGS: Diagnostic Quality: Adequate. Soft Tissues: Extensive [...] present. Pharynx/Larynx: Post resection of the right oropharynx Supraglottic swelling, suggesting radiation effects. No definite pharyngeal or laryngeal [...] focal lesions. Thyroid: Partial thyroidectomy. No focal thyroid lesions are present, within the limitations of the study. Orbits/Paranasal Sinuses/Skull Base: No orbital masses are [...] masses are present at the thoracic inlet. The lung apices are grossly clear. Please see the separate report for the chest CT scan for discussion of intrathoracic findings. Procedure Note Mya Rodriguez MD - 11/21/2020 Exam/Procedure: CT SOFT TISSUE NECK W IV CONTRAST ordered by BAILEY MOREIRA, [id number] CLINICAL INDICATION: Head and neck cancer status post chemoradiation therapy TECHNIQUE: Helical images were obtained through the neck, and reconstructed in theaxial plane on bone and soft tissue algorithm at multiple slicethicknesses. Coronal and sagittal reformatted images were created. 100 mLof Omnipaque 300 were administered intravenously. Total DLP (Dose-Length Product): 1275 mGy.cm. Please note: The reportedvalue represents the total of one or more individual components during theCT acquisition on this date and at this time, and as such, the same valuemay appear in more than one CT report depending on theinterpreting/reporting physicians. COMPARISON: Neck CT 09/02/2020 FINDINGS: Diagnostic Quality: Adequate. Soft Tissues: Extensive [...] present. Pharynx/Larynx: Post resection of the right oropharynx Supraglotticswelling, suggesting radiation effects. No definite pharyngeal orlaryngeal masses are present. Oral Cavity: Fatty conversion and posterior retropulsion of the righttongue indicates denervation atrophy. No large masses are present withinthe oral cavity within the limitations of the study. Parapharyngeal Space: No lesions are present within the parapharyngealspace. Salivary Glands: The parotid and submandibular glands are normal in sizewithout definite focal lesions. Thyroid: Partial thyroidectomy. No focal thyroid lesions are present,within the limitations of the study. Orbits/Paranasal Sinuses/Skull Base: No orbital masses are [...] masses are present at the thoracic inlet. The lung apices aregrossly clear. Please see the separate report for the chest CT scan fordiscussion of intrathoracic findings. IMPRESSION: Extensive postsurgical and radiation effects as detailed above. No tumorrecurrence or cervical adenopathy. CRITICAL RESULT: No. COMMUNICATION: Per this written report. Signed by Mya Rodriguez on 11/21/2020 7:01 PM Bailey Ellis MD IMG CT PROCEDURES Final Resu lt documented in this encounter Visit Diagnoses Diagnosis Head and neck cancer (CMS/HCC) Pulmonary nodules Other diseases of lung, not elsewhere classified documented in this encounter Administered Medications Inactive Administered Medications - up to 3 most recent administrations Medication Order MAR Action Action Date Dose Rate Site iohexol (OMNIPaque) 300 MG/ML injection 100 mL 100 mL, Intravenous, Once in imaging, 1 dose, Starting on Nenita 11/21/20 at 1516, Until Nenita 11/21/20 at 1537, Routine, Imaging Protocol Orders Given 11/21/2020 3:37 PM EDT 100 mL documented in this encounter Care Teams Cutting Department Supervisor Relationship Specialty Start Date End Date Michele Wright MD [address] [place] [address] PCP - General 10/11/20 Edgar Szymanski MD [address] [facility] [address] [place] [address] Radiation Oncologist Radiation Therapy 03/14/20 4 documented as of this encounter
--- OUTSIDE RECORDS SUMMARY | 2024-05-03 13:47 | XMS_ITS | Encounter Summary ---
Author Organization [facility] Address [address] [place], [place] [id number] Care Team Providers Care Molten Iron Pourer Name Role Phone Michele Wright MD Primary Care Provider + [phone] Edgar Szymanski MD Unavailable [phone] Reason for Visit * Reason Comments OTV Encounter Details Date Type Department Care Team (Latest Contact Info) Description 12/10/2020 12:09 PM EDT - 12/10/2020 11:59 PM EDT Hospital Encounter [facility] Radiation [id number] [place] [address] Edgar Szymanski MD [address] [place] [address] Secondary malignant neoplasm of chest wall (CMS/HCC) [...] Sign Reading Time Taken Comments Blood Pressure 103/65 12/10/2020 12:21 PM EDT Pulse 47 12/10/2020 12:21 PM EDT Temperature 36.6 ??C (97.8 ??F) 12/10/2020 12:21 PM E DT Respiratory Rate 16 12/10/2020 12:21 PM EDT Oxygen Saturation 95% 12/10/2020 12:21 PM EDT Inhaled Oxygen Concentration - - Weight 107 kg (235 lb 10.8 oz) 12/10/2020 12:21 PM EDT Height - - Body Mass Index 33.82 11/26/2020 2:56 PM EDT documented in this [...] Progress Notes - Gil Kimble MD - 12/10/2020 12:15 PM EDT Patient Name: Anibal Barreto Date of : 1965 55 y.o. Encounter Date: 12/10/2020 RESEARCH STUDY PATIENT: Yes: [] No: [x] [...] Carpenter MD on 10/14/2020 Visit Vitals BP 103/65 (BP Location: Left arm) Pulse (!) 47 Temp 36.6 ??C (97.8 ??F) (Oral) Resp 16 Wt 107 kg (235 lb 10.8 oz) SpO2 95% BMI 33.82 kg/m?? Smoking Status Passive Smoke Exposure - Never Smoker BSA 2.3 m?? Physician Notes: [x] Reviewed chart and dosimetry - Current Dose - *see signed printed weekly treatment record [x] Reviewed treatment setup - Anticipated Dose - *see signed printed weekly treatment record [x] Reviewed port films or images - Examination of patient for evaluation and progress of treatment KPS: 90 - Able to carry on normal activity; minor signs or symptoms of disease. SUBJECTIVE Anibal Barreto started his treatment this week and has no current side effects from his radiation. We personally reviewed his prior CT imaging with him today in the clinic as he was curious about the size of his lesion. Continue RT ASSESSMENT AND PLAN: Anibal Barreto is a 55 y.o. 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), Staging form: Larynx - Glottis, AJCC 8th Edition, Pathologic stage from11/21/2019: Stage IVC (rpTX, pNX, pM1) - Signed by Divine Carpenter MD on 10/14/2020 We plan to continue RT following today's status check Radiation Treatments Active Plans Right Axilla Obliques [[id number] RTAx] Most recent treatment: Dose planned: 300 cGy (fraction 2 on 12/10/2020) Total: Dose planned: 3,000 cGy (10 fractions) Elapsed Days: 1 Reference Points Right Axilla Most recent treatment: Dose given: 300 cGy (on 12/10/2020) Total: Dose given: 600 cGy Elapsed Days: 1 Resident signature: Physician signature: Gil Kimble MD PGY-2; Radiation On[facility] [address] [place] [phone] Cosigned by Edgar Szymanski MD at 12/10/2020 1:26 PM EDT Associated attestation - Edgar Szymanski MD - 12/10/2020 1:26 PM EDT I saw and evaluated the patient with the resident/fellow. I discussed the case with the resident/fellow and agree with the findings and plan as documented.Plan of care reviewed with pt. Ct scans discussed with pt. Cont XRT documented in this encounter Plan of Treatment Upcoming Encounters Date Type Department Care Team (Late st Contact Info) Description 07/17/2024 12:30 PM EST Clinical Support Pav CC Head, Neck & Respiratory [address] [facility], [address] [place] [address] 07/17/2024 1:30 PM EST Appointment [facility] Radiology [address] [place] [address] 07/20/2024 2:50 PM EST Office Visit Pav CC Head, Neck & Respiratory [address] [facility], [address] [place] [address] Divine Carpenter MD [address] [facility] [address] [place] [address] documented as of this encounter Visit Diagnoses Diagnosis 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
--- OUTSIDE RECORDS SUMMARY | 2024-05-03 13:47 | XMS_ITS | Encounter Summary ---
Author Organization Healthcare Address [address] [place] [address] Care Team Providers Care Busher Helper Name Role Phone Unavailable Primary Care Provider Unavailabl e Encounter Details Date Type Department Care Team (Latest Contact Info) Description 11/21/2019 5:36 AM EDT - 11/22/2019 4:16 PM EDT Hospital Encounter [facility] In[facility] [address] [place] [address] Dru Mcintosh, DO [address] [address] Malignant neoplasm of upper lobe, right bronchus or lung (CMS/HCC) Social History Tobacco Use Types Packs/Day Years Used Date Smoking Tobacco: Never Assessed Sex and Gender Information Value Date Recorded Sex Assigned at Male 11/21/2020 2:37 PM EDT Legal Sex Male 8:00 PM EDT Gender Identity Male 11/21/2020 2:37 PM EDT Sexual Orientation Straight 11/21/2020 2: 37 PM EDT documented as of this encounter Medications at Time of Discharge ALPRAZolam (Xanax) 0.5 MG tablet 03/20/2017 1 Bismuth Tribromoph-Brandi latum (XEROFORM PETROLATUM ROLL 4 X9' EX) apply to neck 1-2 times daily to keep area moisturized 07/13/2017 1 calcium carbonate (Os-Jose) 1250 (500 Ca) MG chewable tablet 1 tablet chewed twice a day 03/29/2018 1 candesartan-hydr oCHLOROthiazide (Atacand HCT) 32-12.5 MG tablet 12/23/2016 1 gabapentin (Neurontin) 600 MG tablet TAKE 1 TABLET 3 TIMES DAILY. 04/15/2018 1 levothyroxine (Synthroid, Levoxyl) 150 MCG tablet TAKE 1 TABLET DAILY. 03/29/2018 2 levothyroxine (Tirosint) 150 MCG capsule 1 cap(s) orally once a day in the morning, please take 30 mins - 1 hr before eating 03/29/2018 1 lidocaine (Xylocaine) 2 % solution 06/09/2017 1 metFORMIN (Glucophage) 500 MG tablet 12/23/2016 1 metoprolol tartrate (Lopressor) 50 MG tablet TAKE 1 TABLET EVERY 12 HOURS. 12/23/2016 1 morphine CR (MS Contin) 30 MG 12 hr tablet 1 tablet every 12hrs 11/30/2017 1 omeprazole (PriLOSEC) [address] capsule TAKE 1 CAPSULE ONCE A DAY 11/19/2017 1 onabotulinumtoxi nA (Botox) 100 units injection Diagnosis: first bite syndromeRx: 50U botox injected into the right parotid gland over multiple sitesRefill: 0 02/07/2019 1 OXYCODONE ER PO 02/16/2019 1 prochlorperazine (Compazine) 10 MG tablet 03/25/2017 1 QUEtiapine (SEROquel) 25 MG tablet TAKE 1 TABLET AT BEDTIME. 01/10/2018 1 simvastatin (Zocor) 10 MG tablet TAKE 1 TABLET DAILY. 12/23/2016 1 triazolam (Halcion) 0.25 MG tablet 02/17/2017 1 documented as of this encounter Miscellaneous Notes * Social Care Assessment Summary - ProviderYan MD - 11/22/2019 12:00 AM EDT Patient Name: COREY HEATH Date of : 1965 Discharge Note Discharge Note Who Will Provide Assistance Post-Discharge? Answers: Family - Amy [phone], Answers: Self How Many Hours is/are the Caregiver(s) Available? Answers: 24 Hours Discharge Disposition Answers: Home Is Home Health Needed? If Yes, Specify Agency Name and Service Needed. Answers: No Is DME Needed? If Yes, Select Type of Equipment Needed and DME Company. Answers: Other patient had trach prior to admission and has all supplies he needs at home I Certify that the Patient has been Provided with a Choice for DME, Home Health, Infusion Services and Facility. Answers: Not Applicable Is This a High-Risk LACE Patient? Answers: No Follow Up Appointments Scheduled? Answers: Other scheduled per MD team/material control clerk Does the Patient Have Transportation to Follow up Appointments? Answers: Yes Scholarship? Answers: No HELEN? Answers: No Medicare Second Notice? Answers: Not applicable Were Services Declined? Answers: No Additional Comments: Notes: Reviewed POC with MD team. Mr. Anibal Heath presented to for a right VATS with Dr. Mcintosh on 11/20 and is medically ready for d/c. Mr. Heath states he lives with his - Amy [phone] who is able to provide transportation and assistance as needed upon d/c. He was independent in all aspects of care prior to admission. No PT/OT ordered. No HH needs. Patient had trach prior to admission and gets all supplies he needs from [employer]. He states he does not need any supplies at this time. He is currently stable on room air. PCP is Dr Todd Wright. team/material control clerk to arrange follow up appointments. No living will/POA. Insurance is [employer]. Patient enrolled in [employer]. Per MD team, no further needs. I certify that the opportunity to review post-acute care facilities/agencies efficiency and quality data was provided to patient/family/legal sales representative groceries. 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 On surveillance imaging he was found to have a right upper lobe nodule subsequently found to be PET avid. He presents for surgical resection. HOSPITAL COURSE: Hospital Course Pt with hx head and neck SCC s/p chemoradiation and then recurrent disease, no s/p laryngectomy andpermanent tracheostomy. Found to have RUL nodule on surveillance imaging, found to be PET avid.The patient was medically optimized for surgery and on 11/20 was taken to the operating room for right VATS, wedge resection and mediastinal lymph node dissection. Intraoperative frozen section came back SCC. The procedure was tolerated well, and the patient was subsequently awoken from anesthesia and taken to the PACU for immediate post- operative monitoring. Following the PACU stay, the patient was transferred to the floor. Chest tube kept to water seal overnight and was pulled on POD 1. Post-pull CXR obtained and showed no pneumothorax. On the day of discharge the patient was afebrile, ambulating, tolerating PO pain medicine, voiding spontaneously and tolerating a regular diet. It was felt thatthe patient had reached maximal benefit from hospitalization and was deemed ready for discharge. The patient was discharged in stable condition and will follow up with Dr. Mcintosh on 12/06 with CXR at 12:00PM, appointment in clinic at 1:00PM You may resume regular diet, unless specified by your doctor. Normal taste may not return for up totwo weeks, appetite may take 4 weeks to normalize. Diet: regular Avoid constipation. Recommend stool softeners or laxatives if taking narcotic pain medication. Activity: Get dressed and out of the house every day. Walk outside if the weather permits or go to a local store/mall. Use your incentive spirometer 10 puffs per hour, or every commercial break if watching TV. Remove dressing, if present, 24 hours after discharge. Clean incisions with antibacterial soap (dial or equivalent) and water, pat dry. Leave open to air or cover with gauze to protect clothing if needed. Do not apply Neosporin, creams, or Vaseline or other lotions to the wounds. Shower daily usinga clean wash cloth, no tub baths, swim pools, or hot tubs. Do not pull off steri-strips, they will fall off on their own. Do not take out stitches or amalia; they will be taken out at your clinic visit. Light purple appearing material on your incisions is water-resistant skin glue. Do not pick or scrub at the glue. It will flake and fall off over the course of a few weeks. No lifting more than 5 lbs. until your follow up appointment. No driving for 2 weeks or longer if you are taking pain medication. Sleep patterns are often disturbed for up to 6 weeks postoperatively Reportable conditions: fevers greater than 101.5, drainage or redness from wound, shortness of breath, chest pain or pressure, cloudy or foul smelling drainage from your chest tube, or throwing up/diarrhea more than 24 hours should be reported to surgeon or local medical doctor. DIAGNOSTIC AND PROCEDURAL EVENTS: - 1. right VATS upper lobe wedge resection 2. mediastinal lymph node dissection 3. multilevel intercostal nerve block. PHYSICAL EXAMINATION: - GEN - resting comfortably, in no acute distress HEENT - normocephalic, atraumatic, EOMI CV - regular rate and rhythm PULM - without signs of respiratory distress, bilateral chest expansion. incisions well-approximated ABD - soft, nontender, nondistended. no rebounding, guarding, or peritonitis MSK: normal muscular bulk, moves extremities spontaneously and without restriction SKIN - without rash or lesions. warm. EXT - without cyanosis or edema NEURO - A&Ox3, no focal neuro deficits PSYCH: appropriate mood and affect Suicide Screening: Discharge Suicide Screen: Has this patient had a low, moderate or high suicide severity documented during their hospital stay? No. DISCHARGE INFORMATION: DispositionHome Discharge Conditionstable (signs or symptoms of potential problems absent or manageable) Discharge MedicationsFinal Medication List for Discharge Summary Discharge Medicationsacetaminophen 500 mg oral tablet 2 tab(s) orally every 6 hours ALPRAZolam 0.5 mg oral tablet 1 tab(s) orally 2 times a day candesartan-hydrochlorothiazide 32 mg-12.5 mg oral tablet 1 tab(s) orally once a day gabapentin 600 mg oral tablet 1 tab(s) orally every 8 hours. ibuprofen 600 mg oral tablet 1 tab(s) orally every 6 hours levothyroxine 150 mcg (0.15 mg) oral capsule 1 cap(s) orally once a day in the morning, please take30 mins - 1 hr before eating lidocaine 5% topical film 1 patch topically every 24 hours metoprolol tartrate 50 mg oral tablet 1 tab(s) orally 2 times a day mometasone 0.1% topical cream Apply topically to affected area once a day morphine 30 mg/12 hr oral tablet, extended release 1 tab(s) orally 2 times a day naloxone 4 mg/0.1 mL nasal spray Use as directed per package/handout. [place] in nostril as needed for opioid overdose, may repeat in other nostril in 2-3 minutes as needed omeprazole 40 mg oral delayed release capsule 1 cap(s) orally once a day oxyCODONE 10 mg oral tablet 1 tab(s) orally every 4 hours, As needed, Pain unresponsive to other medications/interventions. Hold for sedation. simvastatin 10 mg oral tablet 1 tab(s) orally once a day (at bedtime) Xanax 0.5 mg oral tablet 1 tab(s) orally once a day Xarelto 15 mg oral tablet 1 tab(s) orally 2 times a day Pending ResultsNo Pending Results DISCHARGE INSTRUCTIONS: Diet: Work towards or maintain a healthy weight. Other: regular diet, take stool softener while on narcotics. Lifting: No lifting more than 5 lbs. until your follow up appointment. No driving for 2 weeks or longer if you are taking pain medication. Activity: Get dressed and out of the house every day. Walk outside if the weather permits or go to a local store/mall. Use your incentive spirometer 10 puffs per hour, or every commercial break if watching TV. Wound or Incision Care: Reason to call: feels warm or hot to the touch, is red or dark pink, is tight or swollen and looks shiny, becomes more tender or sore to the touch, wound smells bad and wound is draining pus, bleeding or coming open. Special Wound/Incision Care Instructions: Remove dressing, if present, 24 hours after discharge. Clean incisions with antibacterial soap (dial or equivalent) and water, pat dry. Leave open to air or cover with gauze to protect clothing if needed. Do not apply Neosporin, creams, or Vaseline or otherlotions to the wounds. Shower daily using a clean wash cloth, no tub baths, swim pools, or hot tubs. Do not pull off steri-strips, they will fall off on their own. Do not take out stitches or amalia; they will be taken out at your clinic visit. Light purple appearing material on your incisions is water-resistant skin glue. Do not pick or scrub at the glue. It will flake and fall off over the course of a few weeks. Bathing: Shower any time; keep wound or bandage dry. Avoid soaking your wound; do NOT take a tub bath. Instructed patient to call if: Other fevers greater than 101.5, drainage or redness from wound, shortness of breath, chest pain orpressure, cloudy or foul smelling drainage from your chest tube, or throwing up/diarrhea more than 24 hours should be reported to surgeon or local medical doctor. Medication Instructions: Take Medication exactly as instructed. Additional Instructions: do not take your home oxycodone while taking oxycodone written for you post-op. can resume once you finish your prescription. start your xarelto (blood thinner) tomorrow, 11/22. Recommended Follow Up Instructions: Follow Up Instructions: Follow up with: Dr. Mcintosh. in/on 07-Dec-2019 12:00 PM. - Address/Phone Number: Follow up on 12/07/19at 1:00 PM, CXR at 12:00 [facility], [facility]. CXR in [facility]. Who to call with questions/concerns: Wednesday * Wednesday 8:30 AM * 4:30 PM Carmenza Rajput, Thoracic Surgery Nurse Navigator [phone]. [facility] Thoracic Surgery Office [phone] and ask for Carmenza Rajput. After hours and weekends [facility] and ask for the Thoracic Surgery resident field supervisor seed production. ATTESTATION STATEMENTS: Attending Attestation Statement: I saw and evaluated the patient with the resident/fellow. I discussed the case with the resident/fellow and agree with the findings and plan as documented. Electronic Signatures: Mary Salazar MD (Resident) (Signed 22-Nov-19 13:07) Authored: HOSPITALIZATION, DISCHARGE DIAGNOSIS, HOSPITAL COURSE, DIAGNOSTIC AND PROCEDURAL EVENTS, PHYSICAL EXAMINATION, Suicide Screening, DISCHARGE INFORMATION, DISCHARGE INSTRUCTIONS, Recommended Follow Up Instructions Dru Mcintosh DO (Attending) (Signed 27-Nov-19 11:48) Authored: ATTESTATION STATEMENTS Co-Signer: HOSPITALIZATION, DISCHARGE DIAGNOSIS, HOSPITAL COURSE, DIAGNOSTIC AND PROCEDURAL EVENTS,PHYSICAL EXAMINATION, Suicide Screening, DISCHARGE INFORMATION, DISCHARGE INSTRUCTIONS, RecommendedFollow Up Instructions Last Updated: 27-Nov-19 11:48 by Dru Mcintosh DO (Attending) * Op Note - Dru Mcintosh - 11/21/2019 12:00 AM EDT Date of Operative Procedure: 21-Nov-2019. Pre-Op Diagnosis: right upper lobe lung nodule. Pre-Op Diagnosis: 02. Active Dx: Lung nodule: Post-Op Diagnosis: Same. Procedures: 1. right VATS upper lobe wedge resection 2. mediastinal lymph node dissection 3. multilevel intercostal nerve block. Primary Surgeon: Dr. Dru Mcintosh. Casting Molder(s): Dr. Abby Veliz. Anesthesia: GA-ET. Estimated Blood Loss: 25 ml. Description of Findings: right upper lobe lung nodule at apex. lymph nodes sampled from 4R, 7 and 10R lymph node stations. no evidence of disseminated pleural disease. Drains: 28F chest tube. 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 On surveillance imaging he was found to have a right upper lobe nodule subsequently found to be PET avid. He presents for surgical resection. OPERATIVE DESCRIPTION: The patient was appropriately identified in the preoperative holding area. he was brought back to the operating room and placed supine on the operating room table. Arterial line was placed. Anesthesia was induced and the patient's tracheostomy was removed and endotracheal tube was placed through the tracheostomy site without difficulty. Patient was positioned in a lateral decubitus position with right side up. Care was taken to ensure that all pressure points were padded. he was then prepped and draped in standard sterile surgical fashion. A preoperative timeout procedure was then performed. P reoperative antibiotics of cefazolin were verified and administered. Incision was made in the 8th intercostal space in the posterior axillary line. The chest was entered and video thoracoscope was inserted. There was no damage to the lung upon entry. Another incision was made in the 5th intercostalspace in the anterior axillary line and a third incision in the auscultory triangle. There was no evidence of disseminated pleural disease. A right upper lobe nodule was palpated at the apex. This was grasped and elevated. Wedge resection of the nodule was performed with the EndoGIA stapler with a healthy gross margin. We next performed a mediastinal lymph node dissection. The right lung was retracted posteriorly, exposing the hilum. The hilum was dissected revealing the right middle and upper lobe veins and revealing 10R lymph nodes which were dissected and sent for pathology. hemostasis wasensured. We next retracted the right lung anteriorly to reveal the posterior hilum. Level 7 lymph nodes were dissected and sent for pathology. hemostasis with surgicell was ensured. the right upper lobe was then retracted inferiorly. The pleura in between the trachea, SVC and azygous vein was opened and dissected to reveal 4R lymph nodes that were dissected and sent to pathology. Hemostasis with surgicell was ensured. The inferior pulmonary ligament was then release. no level 9 lymph nodes were identified. Multilevel intercostal nerve block was then performed. Hemostasis was confirmed. A 28F chest tube was then placed toward the apex through the 8th intercostal space port site and secured with 0 silk sutures. The remaining incisions were closed with 2-0 vicryl and 3-0 vicryl at the skin. dermabond was applied and the chest tube was dressed. The patient was awoken from general anesthesiaand was extubated without difficulty. Original tracheostomy tube was replaced. he was taken to the PACU for ongoing monitoring and care. Attending Attestation: * I was present for the entire procedure. Electronic Signatures: Dru Mcintosh DO (Attending) (Signed 22-Nov-19 06:45) Authored: Operative Report - Full Co-Signer: Operative Report - Full Abby Veliz MD (Resident) (Signed 21-Nov-19 22:20) Authored: Operative Report - Full Last Updated: 22-Nov-19 06:45 by Dru Mcintosh DO (Attending) documented in this encounter Plan of Treatment Upcoming Encounters Date Type Department Care Team (Late st Contact Info) Description 07/17/2024 12:30 PM EST Clinical Support [facility] [address] [place] [address] 07/17/2024 1:30 PM EST Appointment [facility] [address] [place] [address] 07/20/2024 2:50 PM EST Office Visit [facility] [address] [place] [address] Divine Carpenter MD [address] [facility] [address] [place] [address] Pending Results Name Type Priority Associated Diagnoses Date /Time Type and Screen Lab STAT 6:30 AM EDT documented as of this encounter Procedures Procedure Name Priority Date/Time Associated Diagnosis Comments GLUCOSE POINT OF CARE DC Routine 11/22/2019 3:34 PM EDT XR CHEST 1 VIEW Routine 11/22/2019 12:20 PM EDT GLUCOSE POINT OF CARE DC Routine 11/22/2019 11:25 AM EDT GLUCOSE POINT OF CARE DC Routine 11/22/2019 9:32 AM EDT GLUCOSE POINT OF CARE DC Routine 11/22/2019 8:37 AM EDT XR CHEST 1 VIEW Routine 11/22/2019 3:50 AM EDT EXTRA TUBES Routine 11/22/2019 3:07 AM EDT EXTRA TUBES Routine 11/22/2019 3:06 AM EDT CBC W/O DIFFERENTIAL Routine 11/22/2019 3:06 AM EDT PHOSPHORUS, PLASMA STAT 11/22/2019 2: 47 AM EDT MAGNESIUM, PLASMA STAT 11/22/2019 2:4 7 AM EDT IONIZED CALCIUM, LUKE STAT 11/22/2019 2:47 AM EDT BASIC METABOLIC PANEL, PLASMA Routine 11/22/2019 2:47 AM EDT GLUCOSE POINT OF CARE DC Routine 11/21/2019 8:23 PM EDT PHOSPHORUS, PLASMA Routine 11/21/2019 6: 21 PM EDT MAGNESIUM, PLASMA Routine 11/21/2019 6:2 1 PM EDT BASIC METABOLIC PANEL, PLASMA STAT 11/21/2019 6:21 PM EDT GLUCOSE POINT OF CARE DC Routine 11/21/2019 4:31 PM EDT GLUCOSE POINT OF CARE DC Routine 11/21/2019 12:42 PM EDT XR CHEST 1 VIEW Routine 11/21/2019 10:04 AM EDT SODIUM, SYRINGE DC Routine 11/21/2019 8: 28 AM EDT LACTATE, ARTERIAL Routine 11/21/2019 8:2 8 AM EDT POTASSIUM, WHOLE BLOOD Routine 11/21/2019 8:28 AM EDT IONIZED CALCIUM, WHOLE BLOOD Routine 11/21/2019 8:28 AM EDT HEMATOCRIT, SYRINGE Routine 11/21/2019 8 :28 AM EDT GLUCOSE, SYRINGE Routine 11/21/2019 8:28 AM EDT BLOOD GAS PANEL, ARTERIAL Routine 11/21/2019 8:28 AM EDT SURGPATH DATA CONVERSION Routine 11/21/2019 8:12 AM EDT TYPE AND SCREEN STAT 11/21/2019 6:30 AM EDT ECG ADULT 11/21/2019 documented in this encounter Results * Glucose Point of Care. (11/22/2019 3:34 PM EDT) POCT Glucose 85 74 - 99 mg/dL SUNQUEST Comment: Accuracy of a glucose result obtained from a capillary whole blood specimen relies upon adequate, non-compromised capillary blood flow.If the capillary glucose result is not consistent with the patient's clinical signs and symptoms, glucose testing should be repeated with either an arterial or venous sample on the glucometer or sent to the main laboratory for testing. SPEC TYPE Capillary SUNQUEST 11/22/2019 3:34 PM EDT 11/22/2019 3:40 PM EDT Dru Mcintosh DO LAB BLOOD ORDERABLES Final Re sult SUNQUEST * XR Chest 1 View (11/22/2019 12:20 PM EDT) Anatomical Region Laterality Modality Chest Radiographic Carolyn ging Narrative 11/22/2019 1:42 PM EDT REQUESTING PHYSICIAN: DRU MCINTOSH REASON FOR EXAMINATION/PROCEDURE: RAD PDP:Y ??* ??s/p CT pull EXAMINATION / PROCEDURE: CHEST 1 VIEW PA/AP PORTABLE Nov 22 2019 - 12:20; ? CLINICAL INDICATION: Status post chest tube pulled TECHNIQUE : CHEST 1 VIEW PA/AP PORTABLE COMPARISON: 7 hours prior FINDINGS: Interval removal of right chest tube. Small right apical pneumothorax is no larger than prior. Low lung volumes with similar aeration. ?? IMPRESSION: Chest tube removed CRITICAL RESULT: ?? No. COMMUNICATION: Per this written report. By electronically signing this report, I, the attending physician, attest that I have personally reviewed the images/data for the above examination(s) and agree with the neida jauregui report. ?? Verified by: TODD HALEY M.D. on Nov 22 2019 ??1:41P Transcribed by: PSCLitzy on Nov 22 2019 12:56P Dictated by: CELINA SNOWDEN D.O. on Nov 22 2019 12:56P Procedure Note Todd Haley - 09/24/2020 REQUESTING PHYSICIAN: DRU MCINTOSH REASON FOR EXAMINATION/PROCEDURE: RAD PDP:Y * s/p CT pull EXAMINATION / PROCEDURE: CHEST 1 VIEW PA/AP PORTABLE Nov 22 2019 - 12:20; CLINICAL INDICATION: Status post chest tube pulled TECHNIQUE : CHEST 1 VIEW PA/AP PORTABLE COMPARISON: 7 hours prior FINDINGS: Interval removal of right chest tube. Small right apical pneumothorax is no larger than prior. Low lung volumes with similar aeration. IMPRESSION: Chest tube removed CRITICAL RESULT: No. COMMUNICATION: Per this written report. By electronically signing this report, I, the attending physician, attest that I have personally reviewed the images/data for the above examination(s) and agree with the neida jauregui report. Verified by: TODD HALEY M.D. on Nov 22 2019 1:41P Transcribed by: HITESH on Nov 22 2019 12:56P Dictated by: CELINA SNOWDEN D.O. on Nov 22 2019 12:56P us Dru Mcintosh DO IMG XR PROCEDURES Final Resul t * (ABNORMAL) Glucose Point of Care. (11/22/2019 11:25 AM EDT) POCT Glucose 105(H) 74 - 99 mg/dL SUNQUEST Comment: Accuracy of a glucose result obtained from a capillary whole blood specimen relies upon adequate, non-compromised capillary blood flow.If the capillary glucose result is not consistent with the patient's clinical signs and symptoms, glucose testing should be repeated with either an arterial or venous sample on the glucometer or sent to the main laboratory for testing. SPEC TYPE Capillary SUNQUEST 11/22/2019 11:2 5 AM EDT 11/22/2019 11:30 AM EDT us Dru Mcintosh DO LAB BLOOD ORDERABLES Final Re sult SUNQUEST * Glucose Point of Care. (11/22/2019 9:32 AM EDT) POCT Glucose 86 74 - 99 mg/dL SUNQUEST Comment: Accuracy of a glucose result obtained from a capillary whole blood specimen relies upon adequate, non-compromised capillary blood flow.If the capillary glucose result is not consistent with the patient's clinical signs and symptoms, glucose testing should be repeated with either an arterial or venous sample on the glucometer or sent to the main laboratory for testing. SPEC TYPE Capillary SUNQUEST 11/22/2019 9:32 AM EDT 11/22/2019 9:35 AM EDT Dru Mcintosh DO LAB BLOOD ORDERABLES Final Re sult Performing Organization Address [place] [facility] de Phone Number SUNQUEST * Glucose Point of Care. (11/22/2019 8:37 AM EDT) POCT Glucose 75 74 - 99 mg/dL SUNQUEST Comment: Accuracy of a glucose result obtained from a capillary whole blood specimen relies upon adequate, non-compromised capillary blood flow.If the capillary glucose result is not consistent with the patient's clinical signs and symptoms, glucose testing should be repeated with either an arterial or venous sample on the glucometer or sent to the main laboratory for testing. SPEC TYPE Capillary SUNQUEST 11/22/2019 8:37 AM EDT 11/22/2019 8:40 AM EDT us Dru Mcintosh DO LAB BLOOD ORDERABLES Final Re sult Performing Organization Address [facility] Co de Phone Number SUNQUEST * XR Chest 1 View (11/22/2019 3:50 AM EDT) Anatomical Region Laterality Modality Chest Radiographic Carolyn ging Narrative 11/22/2019 9:08 AM EDT REQUESTING PHYSICIAN: DRU MCINTOSH REASON FOR EXAMINATION/PROCEDURE: RAD PDP:Y ??* ??Postop Surgery EXAMINATION / PROCEDURE: CHEST 1 VIEW PA/AP PORTABLE Nov 22 2019 - 03:50; ? CLINICAL INDICATION: Postop TECHNIQUE: CHEST 1 VIEW PA/A P PORTABLE COMPARISON: November 21, 2019 FINDINGS: Unchanged right chest tube. Persistent vascular congestion and atelectasis. Possible small pleural effusions. Stable cardiomediastinal silhouette. No significant pneumothorax. Postsurgical pedro pablo nges in the neck. ?? IMPRESSION: No significant pneumothorax. Right-sided chest tube in place. CRITICAL RESULT: ?? No. COMMUNICATION: Per this written report. By electronically signing this report, I, the attending physician, attest that I have personally reviewed the images/data for the above examination(s) and agree with the final edited report. ?? Verified by: WILFREDO MCMANUS M.D. on Nov 22 2019 ??9:07A Transcribed by: PSCLitzy on Nov 22 2019 ??8:25A Dictated by: CELINA GIRALDO D.O. on Nov 22 2019 ??8:25A Procedure Note Wilfredo Mcmanus - 09/24/2020 REQUESTING PHYSICIAN: DRU MCINTOSH REASON FOR EXAMINATION/PROCEDURE: RAD PDP:Y * Postop Surgery EXAMINATION / PROCEDURE: CHEST 1 VIEW PA/AP PORTABLE Nov 22 2019 - 03:50; CLINICAL INDICATION: Postop TECHNIQUE: CHEST 1 VIEW PA/A P PORTABLE COMPARISON: November 21, 2019 FINDINGS: Unchanged right chest tube. Persistent vascular congestion and atelectasis. Possible small pleural effusions. Stable cardiomediastinal silhouette. No significant pneumothorax. Postsurgical pedro pablo nges in the neck. IMPRESSION: No significant pneumothorax. Right-sided chest tube in place. CRITICAL RESULT: No. COMMUNICATION: Per this written report. By electronically signing this report, I, the attending physician, attest that I have personally reviewed the images/data for the above examination(s) and agree with the final edited report. Verified by: WILFREDO MCMANUS M.D. on Nov 22 2019 9:07A Transcribed by: PSCB on Nov 22 2019 8:25A Dictated by: CELINA GIRALDO D.O. on Nov 22 2019 8:25A Dru Mcintosh DO IMG XR PROCEDURES Final Resul t * Extra Tubes (11/22/2019 3:07 AM EDT) [facility] Signature Extra Blue top tube. Whole blood stored in lab for four hours. SUNQUEST 11/22/2019 3:07 AM EDT 11/22/2019 3:07 AM EDT us Dru Mcintosh DO LAB BLOOD ORDERABLES Final Re sult Performing Organization Address [facility] de Phone Number SUNQUEST * Extra Tubes (11/22/2019 3:06 AM EDT) Extra LAVENDER TOP TUBE. WHOLE BLOOD REFRIGERATED IN LAB 72 HOURS. SUNQUEST 11/22/2019 3:06 AM EDT 11/22/2019 3:06 AM EDT us Dru Mcintosh DO LAB BLOOD ORDERABLES Final Re sult Performing Organization Address [facility] de Phone Number SUNQUEST * CBC W/O Differential (11/22/2019 3:06 AM EDT) WBC Count 7.03 3.7 - 10.3 k/uL SUNQUEST RBC Count 5.06 4.6 - 6.1 M/uL SUNQUEST HGB 13.9 13.7 - 17.5 g/dL SUNQUEST HCT 44.4 40 - 51 % SUNQUEST Platelet Count 157 155 - 369 k/uL SUNQUEST MCV 88 79 - 98 fL SUNQUEST MCH 27.5 26 - 32 pg SUNQUEST MCHC 31.3 30.7 - 35.5 g/dL SUNQUEST RDW 14.1 12.4 - 14.9 % SUNQUEST MPV 11.4 8.8 - 12.5 fL SUNQUEST NRBC COUNT 0.0 0 % SUNQUEST 11/22/2019 3:06 AM EDT 11/22/2019 3:06 AM EDT us Dru Mcintosh DO LAB BLOOD ORDERABLES Final Re sult Performing Organization Address [facility] Co de Phone Number SUNQUEST * (ABNORMAL) Ionized calcium, other (11/22/2019 2:47 AM EDT) Ionized Calcium, Whole Blood 4.5(L) 4.6 - 5.1 mg/dL SUNQUEST 11/22/2019 2:47 AM EDT 11/22/2019 3:10 AM EDT us Dru Mcintosh DO LAB BLOOD ORDERABLES Final Re sult Performing Organization Address [facility]/ZIP Tn de Phone Number SUNQUEST * Phosphorus, Plasma (11/22/2019 2:47 AM EDT) Phosphorus, Plasma 4.2 2.5 - 4.5 mg/dL SUNQUEST 11/22/2019 2:47 AM EDT 11/22/2019 3:02 AM EDT us Dru Mcintosh DO LAB BLOOD ORDERABLES Final Re sult Performing Organization Address [facility] de Phone Number SUNQUEST * Magnesium, Plasma (11/22/2019 2:47 AM EDT) Magnesium, Plasma 2.0 1.9 - 2.4 mg/dL SUNQUEST 11/22/2019 2:47 AM EDT 11/22/2019 3:02 AM EDT us Dru Mcintosh DO LAB BLOOD ORDERABLES Final Re sult Performing Organization Address [facility] de Phone Number SUNQUEST * (ABNORMAL) Basic Metabolic Panel, Plasma (11/22/2019 2:47 AM EDT) Glucose, Plasma 86 74 - 99 mg/dL SUNQUEST BUN, Plasma 19 7 - 21 mg/dL SUNQUEST Creatinine, Plasma 1.08 0.80 - 1.30 mg/dL SUNQUEST BUN/Creatinine Ratio 18 8 - 20 SUNQUEST Sodium, Plasma 137 136 - 145 mmol/L SUNQUEST Potassium, Plasma 4.3 3.7 - 4.8 mmol/L SUNQUEST Chloride, Plasma 101 97 - 107 mmol/L SUNQUEST CO2, Plasma 25 22 - 29 mmol/L SUNQUEST Anion Gap 11 6 - 16 mmol/L SUNQUEST Calcium, Plasma 8.6(L) 8.9 - 10.2 mg/dL SUNQUEST eGFR >60 >60 SEE NOTE SUNQUEST eGFR, if AFR/AM >60 >60 SEE NOTE SUNQUEST Comment: (NOTE) eGFR = estimated GFR; eGFR units = mL/min/1.73 sq meters Chronic Kidney Disease is considered if eGFR <60 mL/min/1.73 sq meters Kidney failure is considered if eGFR is <15 mL/min/1.73 sq meters. eGFR assumes steady state plasma creatinine concentration; not applicable if renal function is rapidly changing or patient is on dialysis. 11/22/2019 2:47 AM EDT 11/22/2019 3:02 AM EDT us Dru Mcintosh DO LAB BLOOD ORDERABLES Final Re sult Performing Organization Address [facility] Phone Number SUNQUEST * Glucose Point of Care. (11/21/2019 8:23 PM EDT) POCT Glucose 98 74 - 99 mg/dL SUNAzingo Comment: Accuracy of a glucose result obtained from a capillary whole blood specimen relies upon adequate, non-compromised capillary blood flow.If the capillary glucose result is not consistent with the patient's clinical signs and symptoms, glucose testing should be repeated with either an arterial or venous sample on the glucometer or sent to the main laboratory for testing. SPEC TYPE Capillary SUNQUEST 11/21/2019 8:23 PM EDT 11/21/2019 8:25 PM EDT us Dru Mcintosh DO LAB BLOOD ORDERABLES Final Re sult Performing Organization Address [facility] de Phone Number SUNQUEST * Phosphorus, Plasma (11/21/2019 6:21 PM EDT) Phosphorus, Plasma 3.5 2.5 - 4.5 mg/dL SUNAzingo 11/21/2019 6:21 PM EDT 11/21/2019 6:32 PM EDT us Dru Mcintosh DO LAB BLOOD ORDERABLES Final Re sult Performing Organization Address [facility] de Phone Number SUNQUEST * Magnesium, Plasma (11/21/2019 6:21 PM EDT) Magnesium, Plasma 1.9 1.9 - 2.4 mg/dL SUNQUEST 11/21/2019 6:21 PM EDT 11/21/2019 6:32 PM EDT us Dru Mcintosh DO LAB BLOOD ORDERABLES Final Re sult Performing Organization Address [facility]/ZIP Co de Phone Number SUNQUEST * Basic Metabolic Panel, Plasma (11/21/2019 6:21 PM EDT) Glucose, Plasma 95 74 - 99 mg/dL SUNQUEST BUN, Plasma 16 7 - 21 mg/dL SUNQUEST Creatinine, Plasma 1.08 0.80 - 1.30 mg/dL SUNQUEST BUN/Creatinine Ratio 15 8 - 20 SUNQUEST Sodium, Plasma 138 136 - 145 mmol/L SUNQUEST Potassium, Plasma 4.6 3.7 - 4.8 mmol/L SUNQUEST Chloride, Plasma 101 97 - 107 mmol/L SUNQUEST CO2, Plasma 29 22 - 29 mmol/L SUNQUEST Anion Gap 8 6 - 16 mmol/L SUNQUEST Calcium, Plasma 9.0 8.9 - 10.2 mg/dL SUNQUEST eGFR >60 >60 SEE NOTE SUNQUEST eGFR, if AFR/AM >60 >60 SEE NOTE SUNQUEST Comment: (NOTE) eGFR = estimated GFR; eGFR units = mL/min/1.73 sq meters Chronic Kidney Disease is considered if eGFR <60 mL/min/1.73 sq meters Kidney failure is considered if eGFR is <15 mL/min/1.73 sq meters. eGFR assumes steady state plasma creatinine concentration; not applicable if renal function is rapidly changing or patient is on dialysis. 11/21/2019 6:21 PM EDT 11/21/2019 6:32 PM EDT us Dru Mcintosh DO LAB BLOOD ORDERABLES Final Re sult Performing Organization Address [facility]/ZIP Co de Phone Number SUNQUEST * (ABNORMAL) Glucose Point of Care. (11/21/2019 4:31 PM EDT) POCT Glucose 100(H) 74 - 99 mg/dL SUNQUEST Comment: Accuracy of a glucose result obtained from a capillary whole blood specimen relies upon adequate, non-compromised capillary blood flow.If the capillary glucose result is not consistent with the patient's clinical signs and symptoms, glucose testing should be repeated with either an arterial or venous sample on the glucometer or sent to the main laboratory for testing. SPEC TYPE Capillary SUNQUEST 11/21/2019 4:31 PM EDT 11/21/2019 4:35 PM EDT Dru Mcintosh DO LAB BLOOD ORDERABLES Final Re sult Performing Organization Address [facility] de Phone Number SUNQUEST * (ABNORMAL) Glucose Point of Care. (11/21/2019 12:42 PM EDT) [facility] POCT Glucose 110(H) 74 - 99 mg/dL SUNQUEST Comment: Accuracy of a glucose result obtained from a capillary whole blood specimen relies upon adequate, non-compromised capillary blood flow.If the capillary glucose result is not consistent with the patient's clinical signs and symptoms, glucose testing should be repeated with either an arterial or venous sample on the glucometer or sent to the main laboratory for testing. SPEC TYPE Capillary SUNQUEST 11/21/2019 12:4 2 PM EDT 11/21/2019 12:45 PM EDT us Dru Mcintosh DO LAB BLOOD ORDERABLES Final Re sult Performing Organization Address [facility] Phone Number SUNQUEST * XR Chest 1 View (11/21/2019 10:04 AM EDT) Anatomical Region Laterality Modality Chest Radiographic Carolyn ging Narrative 11/21/2019 11:14 AM EDT REQUESTING PHYSICIAN: DRU MCINTOSH REASON FOR EXAMINATION/PROCEDURE: RAD PDP:Y ??* ??Immediate postop surgery EXAMINATION / PROCEDURE: CHEST 1 VIEW PA/AP PORTABLE Nov 21 2019 - 10:04; ? CLINICAL INDICATION: Postoperative TECHNIQUE: CHEST 1 VIEW PA/AP PORTABLE COMPARISON: PET CT November 01, 2019. Chest x-ray March 23, 2018. FINDINGS: Right chest tube in place with tip overlying the right apex. Trace right apical pneumothorax. Low lung volumes. Mild vascular congestion. Tracheostomy tube in place. ?? IMPRESSION: Interval placement of right-sided chest tube. Trace right apical pneumothorax. CRITICAL RESULT: ?? No. COMMUNICATION: Per this written report. By electronically signing this report, I, the att ending physician, attest that I have personally reviewed the images/data for the above examination(s) and agree with the final edited report. ?? Verified by: WILFREDO MCMANUS M.D. on Nov 21 2019 11:12A Transcribed by: PSCLitzy on Nov 21 2019 10:10 A Dictated by: CELINA SNOWDEN D.O. on Nov 21 2019 10:10A Procedure Note Wilfredo Mcmanus - 09/24/2020 REQUESTING PHYSICIAN: DRU MCINTOSH REASON FOR EXAMINATION/PROCEDURE: RAD PDP:Y * Immediate postop surgery EXAMINATION / PROCEDURE: CHEST 1 VIEW PA/AP PORTABLE Nov 21 2019 - 10:04; CLINICAL INDICATION: Postoperative TECHNIQUE: CHEST 1 VIEW PA/AP PORTABLE COMPARISON: PET CT November 01, 2019. Chest x-ray March 23, 2018. FINDINGS: Right chest tube in place with tip overlying the right apex. Trace right apical pneumothorax. Low lung volumes. Mild vascular congestion. Tracheostomy tube in place. IMPRESSION: Interval placement of right-sided chest tube. Trace right apical pneumothorax. CRITICAL RESULT: No. COMMUNICATION: Per this written report. By electronically signing this report, I, the att ending physician, attest that I have personally reviewed the images/data for the above examination(s) and agree with the final edited report. Verified by: WILFREDO MCMANUS M.D. on Nov 21 2019 11:12A Transcribed by: PSCLitzy on Nov 21 2019 10:10 A Dictated by: CELINA SNOWDEN D.O. on Nov 21 2019 10:10A Dru Mcintosh DO IMG XR PROCEDURES Final Resul t * Sodium, Syringe (11/21/2019 8:28 AM EDT) Sodium, Whole Blood 139 136 - 145 mmol/L SUNQUEST 11/21/2019 8:28 AM EDT 11/21/2019 8:34 AM EDT us Dru Mcintosh DO LAB BLOOD ORDERABLES Final Re sult Performing Organization Address [facility] de Phone Number SUNQUEST * Lactate, arterial (11/21/2019 8:28 AM EDT) Lactate, Arterial 1.0 0.5 - 1.6 mmol/L SUNQUEST 11/21/2019 8:28 AM EDT 11/21/2019 8:34 AM EDT us Dru Mcintosh DO LAB BLOOD ORDERABLES Final Re sult Performing Organization Address [facility] de Phone Number SUNQUEST * Potassium, Syringe (11/21/2019 8:28 AM EDT) Potassium, Whole Blood 4.2 3.7 - 4.8 mmol/L SUNQUEST 11/21/2019 8:28 AM EDT 11/21/2019 8:34 AM EDT us Dru Mcintosh DO LAB BLOOD ORDERABLES Final Re sult Performing Organization Address [facility] de Phone Number SUNQUEST * Ionized calcium, whole blood (11/21/2019 8:28 AM EDT) Ionized Calcium, Syringe 4.6 4.6 - 5.1 mg/dL SUNQUEST 11/21/2019 8:28 AM EDT 11/21/2019 8:34 AM EDT us Dru Mcintosh DO LAB BLOOD ORDERABLES Final Re sult Performing Organization Address [facility] de Phone Number SUNQUEST * Hematocrit, Syringe (11/21/2019 8:28 AM EDT) Hematocrit, Whole Blood 44.5 40 - 51 % SUNQUEST 11/21/2019 8:28 AM EDT 11/21/2019 8:34 AM EDT us Dru Mcintosh DO LAB BLOOD ORDERABLES Final Re sult Performing Organization Address [facility] de Phone Number SUNQUEST * (ABNORMAL) Glucose, Syringe (11/21/2019 8:28 AM EDT) Glucose, Whole Blood 123(H) 74 - 99 mg/dL SUNQUEST 11/21/2019 8:28 AM EDT 11/21/2019 8:34 AM EDT us Dru Mcintosh DO LAB BLOOD ORDERABLES Final Re sult Performing Organization Address [facility] de Phone Number SUNQUEST * (ABNORMAL) Blood gas panel, arterial (11/21/2019 8:28 AM EDT) pH, Arterial 7.31(L) 7.35 - 7.45 SUNQUEST pCO2, Arterial 59(H) 35 - 48 mmHg SUNQUEST pO2, Arterial 96 83 - 108 mmHg SUNQUEST SO2, Measured, Arterial 97 94 - 98 % SUNQUEST Base Excess, Arterial 1.8 0 - 3.0 mmol/L SUNQUEST Bicarbonate, Calculated, Arterial 30(H) 22 - 26 mmol/L SUNQUEST 11/21/2019 8:28 AM EDT 11/21/2019 8:34 AM EDT us Dru Mcintosh DO LAB BLOOD ORDERABLES Final Re sult Performing Organization Address [facility] de Phone Number SUNQUEST * Surgical Pathology (11/21/2019 8:12 AM EDT) 11/21/2019 8:12 AM EDT 11/21/2019 8:12 AM EDT Narrative COPATH - 11/24/2019 12:55 PM EDT [place] [address] MR #: [id number] ANIBAL HEATH 1965 (Age: 54) ??MW Collect Date: 11/21/2019 08:12 Receipt Date: 11/21/2019 08:12 Page 1 DEPARTMENT OF PATHOLOGY AND LABORATORY MEDICINE SURGICAL PATHOLOGY REPORT Fax: ??[phone] ?[phone] Email: [email or web address] ATTENDING MD: Jonathan Mcintosh, DO ? Service: CVT ? Location: [facility] OTHER MD(S): ?Reported: 11/24/2019 12:55 DIAGNOSIS A: LUNG, RIGHT, WEDGE, VATS RESECTION: - ?SQUAMOUS CELL CARCINOMA (1.8 CM), COMPLETELY EXCISED - ? SEE NOTE ? 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 ??Overall, the tumor pattern appears to be more consistent with a metastasis than a lung primary. Correlation with clinical and radiographic features is suggested. ? Electronically Signed Out ? nxj/11/23/2019 Yaw Bradley M.D. Irvin Bunch M.D. (Res) ?? CLINICAL HISTORY Preoperative diagnosis: Right upper lobe nodule Intraoperative findings: Right upper lobe nodule Operative procedure: VATS wedge resection, bronchoscopy, mediastinal lymph node dissection INTRAOPERATIVE CONSULT DIAGNOSIS FSA (right upper lobe wedge): Squamous-cell carcinoma -- DW / AG ? Ana Luisa Mandujano M.D. DESCRIPTION OF SPECIMEN: A: ??Right upper lobe wedge for diagnosis gross and microscopic margins B: ??Level 7 C: ??10R D: ??4R GROSS DESCRIPTION A: The specimen is received fresh for frozen section labeled right upper lobe wedge for diagnosis gross and microscopic margins, and consists of a 14.0 g wedge of the aforementioned. The specimen measures 8.8 x 3.3 x 3.2 cm. The margin is previously stapled, the amalia are removed and the margin is inked black. The serosal surface (pleura) is inked blue. The specimen is serially sectioned to reveal a vang-white ill defined nodule, measuring 1.8 x 1.6 x 0.9 cm. The nodule is 1.8 cm from the closest margin. The nodule abuts the overlying pleura. Otherwise the parenchyma is vang- brown, soft, smooth, and unremarkable. A sales representative groceries section is submitted for frozen as FSA. The nodule is entirely submitted. Systems Support Engineer sections are submitted in cassettes as follows: A1: Remaining tissue of FSA A2: Margin, en face A3: Nodule to closest pleura A4: Nodule to closest pleura A5: Nodule to closest pleura A6-A7: Systems Support Engineer sections of parenchyma B: The specimen is received fresh and placed in formalin labeled level 7, and consists of multiple perez-brown soft tissue fragments, measuring in aggregate 0.7 x 0.5 x 0.4 cm. Specimen is entirely submitted in cassette B1. C: The specimen is received fresh and placed in formalin labeled 10R, and consists of multiple perez-black soft tissue fragments, measuring in aggregate 1.6 x 0.9 x 0.5 cm. The specimen is entirely submitted in single cassette C1. D: The specimen is received fresh and placed in formalin labeled 4R, and consists of multiple perez-black soft tissue fragments, measuring in aggregate 1.4 x 0.7 x 0.4 cm. The specimen is entirely submitted in single cassette D1. nxj/11/22/2019 Irvin Bunch M.D. (Res) A resident may have participated in this service. ??A pathologist has performed and is responsible for the reported pathologic evaluation. ICD: C34.11 ? Malignant neoplasm of upper lobe, right bronchus or lung SNOMED CODES: A; T30045 P1100 B; B01300 T0800 C; P08569 T0800 D; A92154 T0800 F: A; 31578 FS1, 91042 B; 25532 C; 21183 D; 03673 Dru Mcintosh DO LAB PATHOLOGY ORDERABLES Neida nelson Result COPATH * ECG ADULT (11/21/2019) Narrative 11/21/2019 Ordered by an unspecified provider. Historical Provider ECG ORDERABLES Final Res ult documented in this encounter Visit Diagnoses Diagnosis Malignant neoplasm of upper lobe, right bronchus or lung (CMS/HCC) documented in this encounter
--- OUTSIDE RECORDS SUMMARY | 2024-05-03 13:47 | XMS_ITS | Encounter Summary ---
Author Organization [facility] Address [address] [place] [id number] Care Team Providers Care Mud Plant Operator Name Role Phone Michele Wright MD Primary Care Provider [phone] Edgar Szymanski MD Unavailable [phone] Shun Hurst MD Unavailable [phone] Divine Carpenter MD Unavailable [phone] Reason for Visit * Reason Onset Date Comments HCN - Patient Message 11/25/2020 Dr Carpenter HCN - Rx Refill Request 11/26/2020 Encounter Details Date Type Department Care Team (Late st Contact Info) Description 11/25/2020 Telephone PFE SCHEDULING [address] [place] [address] iDvine Carpenter MD [address] [address] HCN - Patient Message (Dr Carpenter); HCN - Rx Refill Request Social History [...] encounter Miscellaneous Notes * Telephone Encounter - Vale Ryder - 11/26/2020 1:[address] Carpenter - patient's states patient's Oxycodone 30 mg and Morphine ? Mg to [facility] in [facility]. * Telephone Encounter - Erma Valdez - 11/25/2020 4:[address] Carpenter. Patient was seen today and was supposed to have Rx for Lidocaine, Morphine and Oxycodone. Both pain meds were supposed to have increaed dosage. Pharmacy doesn't have any RX sent to them. Please call. Pharmacy-[facility] in [facility] documented in this encounter Plan of Treatment Upcoming Encounters Date Type Department Care Team (Late st Contact Info) Description 07/17/2024 12:30 PM EST Clinical Support [facility] [address] [facility], [address]nd [place] [phone] 07/17/2024 1:30 PM EST Appointment [facility] Radiology [address] [place] [phone] 07/20/2024 2:50 PM EST Office Visit [facility] [address] [facility] [place] [phone] Divine Carpenter MD [address] [facility] [address] [place] [address] documented as of this encounter Visit Diagnoses Not on filedocumented in this encounter Additional Health Concerns Infection Onset Date Last Indicated Resolved Time COVID-19 Rule-Out 06/12/2021 06/12/2021 06/12/2021 12:25 PM EST COVID 19 (Confirmed) Comment:IPA has verified patient has a COVID-19 positive result. A chart review has been completed, EPI PUI has been completed and sent to appropriate Health Dept. [facility] Film Laboratory Technician: Doyle 06/12/2021 06/12/2021 07/03/2021 5: 23 AM EST Assessment Noted Time A fall risk assessment has been complete d for the patient 11/25/2020 10:17 AM EDT documented as of this encounter Care Teams Mud Plant Operator Relationship Specialty Start Date End Date Michele Wright MD [address] [place] [id number] PCP - General 10/11/20 Edgar Szymanski MD [address] [facility] [address] [place] [address] Radiation Oncologist Radiation Therapy 03/14/20 4 Shun uHrst MD [address] [place] [address] Surgeon Neurosurgery 02/24/21 Divine Carpenter MD [address] [facility] [address] [place] [address] Medical Oncologist Medical Oncology 06/13/21 documented as of this encounter
--- OUTSIDE RECORDS SUMMARY | 2024-05-03 13:48 | XMS_ITS | Encounter Summary ---
Author Organization [facility] [place] [address] Care Team Providers Care Department Supervisor Name Role Phone Edgar Szymanski MD Unavailable [phone] Encounter Details Date Type Department Care Team (Late Contact Info) Description 04/12/2017 [facility] Vitals Encounter [facility] CONVERSION[facility] [address] [place] [address] Provider, MD Yan [address] [place], [place] [id number] Social History Tobacco Use Types Packs/Day Years [...] - Inhaled Oxygen Concentration - - Weight 127 kg (279 lb 15.8 oz) 04/12/2017 3:01 P M EST Height 177.8 cm (5' 10 ) 04/12/2017 3:01 PM EST Body Mass Index 40.17 04/12/2017 3:01 PM EST documented in this encounter Plan of Treatment Upcoming Encounters Date Type Department Care Team (Late Contact Info) Description 07/17/2024 12:30 PM EST Clinical Support [facility] [address] [place] [address] 07/17/2024 1:30 PM EST Appointment [facility] Radiology [address] [place] [address] 07/20/2024 2:50 PM EST Office Visit [facility] [address] [facility], [address] [place] [phone] Divine Carpenter MD [address] [facility] [address] [facility] [address] [place] [address] documented as of this encounter Visit Diagnoses Not on filedocumented in this encounter Care Teams Department Supervisor Relationship Specialty Start Date End Date Edgar Szymanski MD 800 [facility] [address] [place] [address] Radiation Oncologist Radiation Therapy 03/14/20 4 documented as of this encounter
--- OUTSIDE RECORDS SUMMARY | 2024-05-03 13:48 | XMS_ITS | Encounter Summary ---
Author Organization [facility] Address [facility] [place] [address] Care Team Providers Care Medication Administration Professional Name Role Phone Edgar Szymanski MD Unavailable [phone] Encounter Details Date Type Department Care Team (Late Contact Info) Description 05/18/2017 [facility] Vitals Encounter [facility] [address] [place] [address] Provider, MD Yan [address] [place], [place] [id number] Social History Tobacco Use Types Packs/Day Years [...] - Inhaled Oxygen Concentration - - Weight 131 kg (288 lb 5.8 oz) 05/18/2017 11:48 A M EST Height 177.8 cm (5' 10 ) 05/18/2017 11:48 AM EST Body Mass Index 41.38 05/18/2017 11:48 AM EST documented in this encounter Plan of Treatment Upcoming Encounters Date Type Department Care Team (Late Contact Info) Description 07/17/2024 12:30 PM EST Clinical Support [facility] [address] [place] [address] 07/17/2024 1:30 PM EST Appointment [facility] [address] [place] [address] 07/20/2024 2:50 PM EST Office Visit [facility] [address] [facility], [address] [place] [id number] Divine Carpenter MD [address] [facility] Diane Zuniga [facility] [address] [place] [address] documented as of this encounter Visit Diagnoses Not on filedocumented in this encounter Care Teams Medication Administration Professional Relationship Specialty Start Date End Date Edgar Szymanski MD [address] [facility] [id number] [place] [address] Radiation Oncologist Radiation Therapy 03/14/20 4 documented as of this encounter
--- OUTSIDE RECORDS SUMMARY | 2024-05-03 13:48 | XMS_ITS | Encounter Summary ---
Author Organization Healthcare Address [address] [place] [id number] Care Team Providers Care Logistics Supply Officer Name Role Phone Unavailable Primary Care Provider Unavailabl e Encounter Details Date Type Department Care Team ([facility] Contact Info) Description 03/21/2018 9:58 AM EDT - 03/29/2018 5:03 PM EDT Hospital Encounter PAV A Inpatient [address] [place] [address] Lubna Correia MD [address] [place] [address] Malignant neoplasm of supraglottis (CMS/HCC) Social History Tobacco Use Types Packs/Day [...] (Atacand HCT) 32-12.5 MG tablet 12/23/2016 1 levothyroxine (Synthroid, Levoxyl) 150 MCG tablet [...] 1 CAPSULE ONCE A DAY 11/19/2017 1 prochlorperazine (Compazine) 10 MG tablet 03/25/2017 1 QUEtiapine (SEROquel) 25 MG tablet TAKE 1 TABLET AT BEDTIME. 01/10/2018 1 simvastatin (Zocor) 10 MG tablet TAKE 1 TABLET DAILY. 12/23/2016 1 triazolam (Halcion) 0.25 MG tablet 02/17/2017 1 documented as of this encounter Miscellaneous Notes * Social Care Assessment Summary - ProviderYan MD - 03/29/2018 12:00 AM EDT Patient Name: LAKE HEATH Date of : 1965 Discharge Note Discharge Note Who Will Provide Assistance Post-Discharge? Answers: Family How Many Hours is/are the Caregiver(s) Available? Answers: 24 Hours Discharge Disposition Answers: Home Is Home Health Needed? If Yes, Specify Agency Name and Service Needed. Answers: Yes [facility] Is DME Needed? If Yes, Select Type of Equipment Needed and DME Company. Answers: No DME Needs Is Patient Being Discharged with any of the Following? If Yes, Specify Agency and Phone Number. Please Provide Details in Additional Comments Box Below. Answers: Tracheostomy jessica tube I Certify that the Patient has been Provided with a Choice for DME, Home Health, Infusion Services and Facility. Answers: Not Applicable Is This a High-Risk LACE Patient? Answers: No Follow Up Appointments Scheduled? Answers: Other per periodicals clerk Does the Patient Have Transportation to Follow up Appointments? Answers: Yes Scholarship? Answers: No HELEN? Answers: No Medicare Second Notice? Answers: Not applicable Were Services Declined? Answers: No Additional Comments: Notes: Per pt. to dc today. CM made referral to [facility] as pt. requested. Pt. has used them in past. [facility] given referral for TF and will plan to deliver at approx 3:30. Pt. stated that he had a trach prior to admission and has suction supplies. CM had left business card with pt. yesterday and asked him to ask to call CM. Pt. phone unable to receive voice mail. 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 Unfortunately he developed recurrent disease in the [facility] HOSPITAL COURSE: Hospital Course On 03/22/18pt underwent uncomplicated surgery under general ET anesthesia. He tolerated the procedure well and was extubated and transferred to the PACU in stable condition. He did well in the immediate post-op period. At this time, it was felt he had reached maximal benefit of hospitalization and was deemed appropriate for discharge. Upon discharge, the patient was afebrile with stable vital signs. He was ambulating, tolerating tube feeds, voiding spontaneously, and has tolerable pain with PO pain medication. He has been deemed appropriate for discharge to home in stable condition today. DIAGNOSTIC AND PROCEDURAL EVENTS: - Extended total laryngectomy with partial glossectomy (base of tongue resection bilaterally) 1. Anterolateral thigh free flap reconstruction of pharyngeal defect. 2. Right neck dissection with modifier 22 for extended amount of scar tissue and radiation changes to vessels which increased the amount of time for the procedure and which necessitated further dissection to harvest another artery. 3. Revision of anastomosis 4. Full thickness skin graft. PHYSICAL EXAMINATION: - GEN - NAD, resting comfortably NEURO - AOx3, answers questions appropriately, CN III-XII grossly intact, no focal deficits HEEN - NC, AT, PERRLA, EOMI, patent nasal airway, NG sutured in NECK - soft and supple neck with midline trachea, no LAD appreciated, Jessica tube in place CV - RRR, normal S1S2 RESP - chest rise equal bilateral, no signs of respiratory distress, ABD - soft, nontender, nondistended, bowel sounds present EXT - no edema, no cyanosis SKIN - warm, cap refill <2 sec, no lesions or rashes MSK - all extremities FROM DISCHARGE INFORMATION: DispositionHome Discharge Conditionstable (signs or symptoms of potential problems absent or manageable) Discharge MedicationsALPRAZolam 0.5 mg oral tablet; 1 tab(s) orally 2 times a day calcium carbonate 550 mg oral tablet, chewable; 1 tab(s) chewed 2 times a day candesartan-hydrochlorothiazide 32 mg-12.5 mg oral tablet; 1 tab(s) orally once a day gabapentin 600 mg oral tablet; 1 tab(s) orally every 8 hours. levothyroxine 150 mcg (0.15 mg) oral capsule; 1 cap(s) orally once a day in the morning, please take 30 mins - 1 hr before eating metoprolol tartrate 50 mg oral tablet; 1 tab(s) orally 2 times a day morphine 30 mg/12 hr oral tablet, extended release; 1 tab(s) orally every 12 hours [place] 5 mg-325 mg oral tablet; 1 tab(s) orally every 4 hours oxyCODONE 30 mg oral tablet; 0.5 tab(s) orally 2 times a day simvastatin 10 mg oral tablet; 1 tab(s) orally once a day (at bedtime) Pending ResultsNo Pending Results DISCHARGE INSTRUCTIONS: Diet: Other: Bolus feeding, recommend Isosource 1.5, 6 cartons per day (1500 ml) to provide 2250 kcal, 102 gm protein, 1146 ml free water from TF. 75 ml water flush before and after feeding to provide additional 900 ml fluid, 2046 ml fluid total/day. Lifting: No lifting more than 5 lbs for 10 days. Activity: No strenuous activity until reassessed at follow-up appointment. Wound or Incision Care: Special Wound/Incision Care Instructions: Papa will be removed at your follow up appointment. Medication Instructions: Take Medication exactly as instructed. Do not take any medications that have not been ordered for This means do not take other people's medication, illegal drugs or substances, or even more aspirin than has been ordered. Recommended Follow Up Instructions: Follow Up Instructions: Follow up with: Dr. Correia. - Address/Phone Number: [facility] [phone] Please call with any questions or concerns. Electronic Signatures: Nabil Estevez MD (Resident) (Signed 29-Mar-18 11:57) Authored: HOSPITALIZATION, DISCHARGE DIAGNOSIS, HOSPITAL COURSE, DIAGNOSTIC AND PROCEDURAL EVENTS, PHYSICAL EXAMINATION, DISCHARGE INFORMATION, DISCHARGE INSTRUCTIONS, Recommended Follow Up Instructions Lubna Correia MD (Attending) (Signed 31-Mar-18 08:26) Co-Signer: HOSPITALIZATION, DISCHARGE DIAGNOSIS, HOSPITAL COURSE, DIAGNOSTIC AND PROCEDURAL EVENTS,PHYSICAL EXAMINATION, DISCHARGE INFORMATION, DISCHARGE INSTRUCTIONS, Recommended Follow Up Instructions Last Updated: 31-Mar-18 08:26 by Lubna Correia MD (Attending) * Social Care Assessment Summary - Provider, MD Yan - 03/25/2018 12:00 AM EDT Pastoral Care Note: Pastoral Care Note: This visit was initiated by the teletypesetter operator in relation to initial visit. Additional Comments: Renal Technician attempted to visit patient during rounds. Patient was asleep at time of visit. Renal Technician did not disturb patient. Future Care Plan: composition tile layer follow-up. Pastoral Care: Phone [phone], Pager # [phone]. Electronic Signatures: Jaron Torres () (Signed 25-Mar-18 18:48) Authored: Pastoral Care Note Last Updated: 25-Mar-18 18:48 by Jaron Torres () * Social Care Assessment Summary - Yan Zepeda MD - 03/23/2018 12:00 AM EDT Patient Name: LAKE HEATH Date of : 1965 Initial Evaluation Note Initial Evaluation Note Information Obtained From: Answers: Patient Current Living Situation Answers: Family Dwelling Type Answers: House - Single Floor Housing Circumstances - Select All That Apply Answers: None applicable What is Patient's Plan at Discharge Answers: Return to Home Who Will Provide Assistance Post-Discharge? Answers: Family How Many Hours is/are the Caregiver(s) Available? Answers: 24 Hours Functional Status Prior to Hospitalization Answers: Independent Does Patient Have Home Health? If Yes, Specify Home Health Agency. Answers: No Does the Patient Have Home Infusion or Dialysis? If Yes, Specify Agency. Answers: No Home Infusion, Answers: No Dialysis Does Patient Have Any of the Following Hospital Equipment or DME? If Yes, Specify Type of Equipment/DME. Answers: None Does Patient Have Current DME Provider? If Yes, Specify Company. Answers: No Does Patient have a Primary Care Provider? Answers: Yes (if not listed or incorrect, please place Change ADT order in [facility] for registration to update PCP) Transportation Home at Time of Discharge Answers: Family/Friend Transportation to Follow up Appointments Answers: Family or Friend will Provide Does Patient Have Living Will/Advance Directives? If Yes, Instruct Patient/Family to Provide a Copy. Answers: No Does Patient Have a Power of Director Of Environmental Services? If Yes, Please Specify Who and Instruct Patient/Family to Provide a Copy of Form. Answers: No Medical POA, Answers: No Financial POA Does Patient Have a Guardian? If Yes, Please Specify Who and Request a Copy of Legal Form. Answers: No Additional Comments: Notes: CM met w/ pt. to assess dc needs. Pt. is a new laryngectomy patient. CM explained [facility] briefly and pt. signed consent form. CM will mail along w/ Rx and insurance info to [facility]. pt. electrolarynx is at bedside. Pt. agreeable for CM to call pt. to discuss HH/DME. Pt. lives in [facility] and has [employer] which may be a barrier to HH. CM will make referrals to all [facility]. CM will facilitate suction supplies and TF if [place] to [place]. Electronically signed by: Preeti Rivera * Social Care Assessment Summary - Yan Zepeda MD - 03/23/2018 12:00 AM EDT Patient Name: LAKE HEATH Date of : 1965 Progress Note Progress Note Has Discharge Plan Changed? If Yes, Please Describe Change and Provide Details in Additional Comments Box Below. Answers: No Additional Comments Notes: CM attempted to call - voicemail box not set up - unable to leave message. Pt. had used [facility] previous admission . Electronically signed by: Preeti Rivera * Social Care Assessment Summary - Yan Zepeda MD - 03/22/2018 12:00 AM EDT Pastoral Care Note: Pastoral Care Note: This visit was initiated by the teletypesetter operator in relation to initial visit and pre- surgery. The patient has a sense of hope, a support system and a concept of God and/ or ultimate concern. Additional Comments: Renal Technician offered pastoral visitation and patient requested prayers during surgery. Renal Technician was politely dismissed and notified each of pastoral presence 21/12 as able. Future Care Plan: Renal Technician follow up PRN. Pastoral Care: Phone [phone], Pager # [phone]. 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 PROCEDURES PERFORMED: 1. Anterolateral thigh free flap reconstruction of pharyngeal defect. 2. Right neck dissection with modifier 22 for extended amount of scar tissue and radiation changes to vessels which increased the amount of time for the procedure and which necessitated further dissection to harvest another artery. 3. Revision of anastomosis 4. Full thickness skin graft. ATTENDING SURGEON: Lubna Correia MD. RESIDENT SURGEON: Beverly Laws MD. ANESTHESIA: General endotracheal anesthesia. BLOOD LOSS: 500 cc. DRAINS: JPs x3. COMPLICATIONS: None immediate. SPECIMENS: None. 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 Unfortunately he developed recurrent disease in the vallecula. Risk, benefits, indications and alternatives of surgical excision were discussed with the patient and he elected to proceed. FINDINGS: 1. The right anterolateral thigh free flap was inset into the pharyngeal defect with the skin paddle being used entirely to reconstruct the pharyngeal defect. The pedicle was anastomosed to the right external occipital artery and the right facial vein. 2. While dissecting out the vessels, there was significant scar tissue and radiation fibrosis. The initial anastomosis was to the superior thyroid artery, however, once its clamp was released, there was no flow from the superior thyroid artery but intermittently, likely related to radiation changes. Thus, the facial artery was dissected out but geometrically was not a good match. The lingual artery was inspected but was too small size-match graff. Ultimately, the occipital artery was found to be a good match was a good geometry. This was utilized for the final anastomosis. 3. A full thickness skin graft on the left supraclavicular region was used to reconstruct the skin defect just superior to the patient's tracheostoma. OPERATIVE DESCRIPTION OF PROCEDURE: After the extirpative portion of the procedure was complete, attention was turned to reconstruction of the patient's pharyngeal defect. Please see Dr. Calvillo's operative note for complete details of the laryngectomy portion. The pharyngeal defect was measured in order to estimate the necessary ALT free flap size. The right thigh was exposed. The ASIS and lateral patella were marked and a line connecting these two was made. Following this an external Doppler was used to locate the cutaneous solid waste disposal manager and elliptical flap was designed centered on the solid waste disposal manager. A Bovie was used to make the medial skin incision. Dissection was then carried deeply through the fascia rekha. The fascia was then elevated off the rectus femoris muscle with care taken to identify and preserve the previously located skin perforators. The rectus femoris muscle was then retracted medially to expose the descending branch of lateral circumflex femoral artery. The perforators were then identified to correspond with the previously marked Doppler pulses. Once this had been done, the Bovie was used to make the lateral skin incision along the skin flap. The incision was carried down through the subcutaneous tissues and fascia rekha. A healthy cuff of muscle was harvested along with the fascia, controlling small perforating vessels with hemaclips. The flap was released in a circumferential fashion until it was attached only at its pedicle. Adequate profusion was confirmed by noting bleeding along the flap edges. At this time, the flap was left on its pedicle and attention was turned to the right neck. A previously preserved facial vein was identified and preserved. The superior thyroid artery was identified althought it was socked in scar. After careful dissection, we were finally able to visualize the lumen. Initially, after division of the artery, there was excellent flow. The flap was then harvested. The descending branch of the lateral circumflex artery was traced superiorly and it and its venae comitantes were ligated and divided. The flap was taken off of the field and flushed with heparinized saline. Once this was completed the flap was inserted into the patient's pharyngeal defect with interrupted mattress 3-0 Polysorb sutures. The pedicle was then anastomosed to the patient's right superior thyroid artery with interrupted 8-0 nylon sutures. The vein was coupled to the facial vein with a 3.5 venous leather tacker. Initially there was excellent perfusion. A Bibulu implantable Doppler was placed on the artery and initially there was good flow. However, as we proceeded with insetting the remaining flap, the Cook signal went out. Flap perfusion was noted to have ceased. Upon examining the anastomosis, there was no evidence of clot, just spasm. Gentle irrigation with lidocaine was performed and the vessel was gently stripped, however, the flow would last for no more than 3-4 minutes at a time. Therefore, the decision was made to dissect a different artery. The external carotid artery was further skeletonized and the facial artery as it entered the submandibular gland was dissected out, ligated and divided. It was found to have excellent flow but was also embedded in significant scar tissue and attempt at achieving ideal geometry failed as its trajectory appeared to put the arterial anastomosis on stretch. The lingual artery was examined but its diameter was a poor size match for the lateral descending circumflex artery. Ultimately, after significant dissection through scar, the occipital artery was encountered. It was an excellent size match and its circuitous route allowed for it to make a gentle loop towards the donor artery. Upon release of its clamp, there was instant and aggressive flow. This was then anastamosed to our flap and immediate excellent flow was noted. A patch stitch was placed and the Cook Doppler was replaced. Excellent flow through the artery and the vein were then noted as a Cook was placed on the vein as well. The pharyngeal closure was leak tested with Betadine saline. Attention was then turned to closing the neck. A deep 3-0 Polysorb sutures were used to close the subcutaneous tissue and 4-0 chromic was used to close the skin. There was not enough skin to close the medial portion overlying the free flap belly and just superior to the tracheostoma a full thickness skin graft was then harvested from the left supraclavicular region. This was measured and marked with a skin marker. The skin was injected with Lidocaine 1% with 1:100,000 epinephrine. A 15 blade was used to release the skin graft off of the underlying soft tissue and this was then thinned and inset into the defect with interrupted chromic sutures. The skin graft donor site was closed with a multilayer fashion with deep 3-0 Polysorb sutures and a running 4-0 chromic skin stitch. At conclusion of the case, a LaryTube was placed into the patient's tracheostoma. The leg was closed in a two layer fashion with deep 3-0 Polysorb and skin papa. A BRITNI drain was placed into the leg as well as two into the gutter of each neck. This concluded the patient's procedure. He was then returned to the Anesthesia service who awakened without complication. He was transferred to the PACU in stable condition. Dr. Correia was present throughout the entirety of this procedure. Electronically Signed By: LUBNA CORREIA MD 03/24/2018 04:23 P LUBNA CORREIA MD Attending Surgeon, OTOLARYNGOLOGY Dictated By: BEVERLY LAWS MD 03/31/2018 05:03 P BEVERLY LAWS MD Dictating Provider, OTOLARYNGOLOGY NC/nkb Dictated Date/Time: 03/23/2018 09:16 [employer]ated Truck Driver Date/Time: 03/23/2018 12:35 Document Number: [id number] Job Number: [id number] Document is Signed NOTE: supplied by interface * Op Note - Yan Zepeda MD - 03/22/2018 12:00 AM EDT [place], [place] OPERATIVE REPORT Patient Name: ANIBAL HEATH [facility] Number: [id number] Date of : 1965 Date of Admission: 03/21/2018 Date of Procedure: 03/22/2018 Attending Physician: JERONIMO CALVILLO MD Patient Location: [id number] A PREOPERATIVE DIAGNOSIS: 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 PROCEDURES PERFORMED: Extended total laryngectomy with partial glossectomy (base of tongue resection bilaterally) ATTENDING SURGEON: Jeronimo Calvillo MD RESIDENT SURGEON: Beverly Laws MD ANESTHESIA: General endotracheal anesthesia. SPECIMENS: Larynx and associated margins. BLOOD LOSS: 100 cc DRAINS: None. COMPLICATIONS: None immediate. 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 Unfortunately, he has had persistence of his disease in the vallecula. Risks, benefits, indications and alternatives of surgical resection were discussed with the patient and he elected to proceed. FINDINGS: 1. The patient had a 3 cm ulcerative lesion along the laryngeal surface of the epiglottis, extending into the vallecula and then to the left base of tongue. This was completely resected and intraoperative margins were negative for carcinoma. OPERATIVE DESCRIPTION: After appropriately consent was obtained. The patient was brought back to the operating room and placed in supine position on the operating table. General anesthesia was induced through the patient's existing tracheostomy. Once the patient was asleep, a time out was performed to verify the correct patient and procedure. Once all in the room were in agreement, the patient was rotated 180 degrees away from anesthesia. An NG tube was placed through the left side of the nose and sutured into place with a 2-0 silk suture. The anterior neck was then marked and injected with lidocaine 1% with 1:100,000 epinephrine. He was then prepped and draped in the standard fashion for a total laryngectomy with right ALT free flap reconstruction. A 15-blade was used to make an apron incision along the anterior neck communicating with the patient's tracheal stoma. Dissection continued down through the subcutaneous tissue. The Bovie was used to elevate supraplatysmal flaps superiorly and inferiorly. The patient had significant radiation changes to his neck and the dissection was very difficult. The anterior borders of the osteum were exposed bilaterally releasing lympho fatty tissue away from the anterior border of the SCM and underlying jugular system to be included in our specimen, we worked in a lateral to medial fashion. The inferior border of the tracheal stoma was identified and we worked inferiorly to expose the anterior tracheal wall, then working from the anterior border of the trachea and dissecting superiorly. The thyroid lobes were identified bilaterally and retracted laterally away from the trachea. Continuing our dissection superiorly, the omohyoid and the strap muscles were divided bilaterally continuing up the pharyngeal constrictures were released away from the larynx bilaterally. The thyroid cartilage was freed away from its surrounding attachments. The hyoid was then identified and the greater horn of the hyoid was released away from its muscular attachments taking care to preserve the hypoglossal nerves bilaterally. The superior laryngeal nerve was divided with our resection. At this point, the body of the hyoid was partially skeletonized. The myohyoid was divided away leaving the tinea hyoid intact. The anterior wall of the trachea was incised with a 15 blade, one tracheal ring below the tracheostoma. This cut was completed with a curved Padilla scissor bilaterally until the remaining attachment was freed at the posterior tracheal wall. At this time, the right piriform sinus was entered to expose a tumor. Once we entered into the piriform sinus, using the curved Padilla scissors, the mucosa was carefully freed away from the thyroid cartilage, trying to preserve as much mucosa as possible, the same thing was performed on the left-hand side and the piriform sinus was entered and the piriform sinus mucosa was cut with the curved Padilla scissors along the left side of the laryngeal framework. The post cricoid mucosa was released and the republican wall was divided between the larynx and the cervical esophagus. The last portion of the larynx to be released was at the base of tongue where the tumor was eroding into the vallecula and into the base of tongue. A Bovie was used to release the base of tongue musculature around the tumor, taking care to resect an adequate margin. Once the specimen had been released, it was passed off the table. We sent to pathology for permanent analysis. Margins were taken along the left pharyngeal mucosa and left base of the tongue and these were negative for carcinoma intraoperatively. Hemostasis was achieved. A cricopharyngeal myotomy was then performed with a 15 blade. At this time, attention was then turned to the reconstructive portion of the procedure. Please see Dr. Correia's note for complete details. The surgery took an additional 1h because of the previous chemotherapy and radiation treatments, which made scarring a major limitation and dissection/exposure a lot harder. Electronically Signed By: JERONIMO CALVILLO MD 03/28/2018 08:46 A JERONIMO CALVILLO MD Attending Surgeon, OTOLARYNGOLOGY, HEAD NECK SURGERY Dictated By: BEVERLY LAWS MD 03/31/2018 05:03 P BEVERLY LAWS MD Dictating Provider, OTOLARYNGOLOGY, HEAD NECK SURGERY NC/lt Dictated Date/Time: 03/23/2018 09:06 [employer]ated [employer] Date/Time: 03/23/2018 10:59 Document Number: [id number] Job Number: [id number] Document is Signed NOTE: supplied by interface * H&P - Lubna Correia - 03/21/2018 12:00 AM EDT Document Topic: Service/ Team: HNS - Surgery/ Head and Neck Surgery. History and Physical: - Otolaryngology History and Physical CC: SCC of supraglottic larynx HPI: Mr. 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 He has persistent disease in his vallecula. He has had a previous tracheostomy and PEG placement, PEG removed in November 2017. He currently has a 6.0 proximal XLT cuffless tracheostomy. He underwent DL with biopsy on 02/10 that revealed SCC in his left vallecula. Because of his recurrence, he is now scheduled for total laryngectomy. Currently, he reports feeling fine, denying any pain or respiratory problems. Review of system: A 14 point review of systems was performed and pertinent positives and negatives are listed in the HPI Past Medical history: SCC of supraglottic larynx s/p chemoradiation HTN HLD WPW Past Surgical History: 02/10/18: DL with bx 05/20/17: PEG placement for dislodged PEG 03/03/17: DL with bx, tracheostomy, PEG placement Family history: Family history of uterine cancer, kidney failure, and liver cancer Social history: Former smoker Allergies Methadone->Other; Rash Docetaxel->Short of breath; Redness; Resp. Distress Vitals: No vitals recorded in last 24 hours 110.4kg No I&O data recorded in last 24 hours Physical Examination: GENERAL : no acute distress, sitting up in bed SKIN : warm and dry EYES : conjunctiva clear, EOMI ENMT : intact, mucous membranes moist, no apparent injury. HEAD/NECK : neck supple, no apparent injury. 6.[address] in place, stoma site clean andhealthy, no adenopathy RESPIRATORY/THORAX : airway patent, breath sounds equal and respirations non-labored CARDIOVASCULAR : regular rate, regular rhythm and normal S1 and S2 GASTROINTESTINAL : bowel sounds normal, soft, non-tender MUSCULOSKELETAL : no joint swelling, no skeletal abnormalities EXTREMITIES : no edema or cyanosis present NEUROLOGICAL : alert and oriented x 4, interactive and normal tone PSYCHOLOGICAL : appropriate mood and behavior Labs: No lab data resulted in last 24 hours Medications: Active Meds [retrieved for ANIBAL HEATH at 21 Mar 2018 11:03]: COAGULATION MODIFIERS Enoxaparin Inj. (PROPHYLAXIS): 30 MG SubCutaneous once a day NUTRITIONAL PRODUCTS Lactated Ringers (no additives): 1000 mL IntraVenous continuous Assessment/Plan: Mr. 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 -Admit to HNS floor, will transfer to ICU postop -To OR on 03/22 for total laryngectomy, bilateral neck dissection, left ALT, possible pec flap, CP myotomy, possible PEG, possible TEP -NPO @ [facility], consented -Admission labs -Restart home meds -Due to hx of WPW, will obtain repeat EKG, echo, and Cardiology consult Tracy Leslie PGY1 Otolaryngology-Head & Neck Surgery [phone] Home Medications: MedicationInstructionsSubmitted By bacitracin 500 units/g topical ointmentApply topically to affected area 2 times a day Lubna Correia MD omeprazole 20 mg oral delayed release tablet1 tab(s) orally once a day Bry Palacios Xanax 0.5 mg oral tablet1 tab(s) orally 2 times a day .Fill on 08/06/17Edgar Szymanski MD oxyCODONE 30 mg oral tablet1 tab(s) orally every 6 hours .Edgar Szymanski MD morphine 30 mg oral tablet1 tab(s) orally 2 times a day , extended release.Edgar Szymanski MD gabapentin 600 mg oral tablet1 tab(s) orally every 8 hours.Edgar Szymanski MD docusate sodium 250 mg oral capsule1 cap(s) orally 2 times a day Bailey Morrison APRN Sea Mist 0.65% nasal spray2 spray(s) inhaled 2 times a day Lubna Correia MD Lidocaine Viscous 2% mucous membrane solutionPlease mix as instructedKirsty Reese MD diphenhydrAMINE 50 mg/30 mL oral liquidPlease mix as instructedKirsty Reese MD clobetasol 0.05% topical creamApply topically to affected area 2 times a day Katiana Perez famotidine 40 mg oral tablet1 tab(s) by gastrostomy tube once a day Edgar Szymanski MD ondansetron 8 mg oral tablet1 tab(s) orally every 8 hours, As Needed - PRN nausea & vomitingEmma Koehler MD prochlorperazine 10 mg oral tablet1 tab(s) orally every 6 hours, As Needed - PRN nausea & vomitingEmma Koehler MD candesartan-hydrochlorothiazide 32 mg-12.5 mg oral tablet1 tab(s) orally once a dayShanna Kitchen simvastatin 10 mg oral tablet1 tab(s) orally once a day (at bedtime)Shanna Kitchen metoprolol tartrate 50 mg oral tablet1 tab(s) orally 2 times a dayNasra Hdz SEROquel1 orally once a day (at bedtime)January Mooney Attestation Statements : Attending Attestation Statement: I saw and evaluated the patient with the resident/fellow. I discussed the case with the resident/fellow and agree with the findings and plan as documented. Electronic Signatures: Lubna Correia MD (Attending) (Signed 24-Mar-18 08:43) Authored: Attestation Statements Co-Signer: DOCUMENT TOPIC, EVALUATION Tracy Leslie MD (Resident) (Signed 21-Mar-18 12:04) Authored: DOCUMENT TOPIC, EVALUATION Last Updated: 24-Mar-18 08:43 by Lubna Correia MD (Attending) * Consults - Norman Basilio - 03/21/2018 12:00 AM EDT Consultation Service: Service/ Team: CA5 - Medicine / Cardiology Private Service. 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 Cardiology is consulted given pre-operative EKG noting WPW. Patient states that he started having difficulty with episodes of rapid heart rate with rates up to180 bpm about 2 years ago. He was started on metoprolol 50 mg BID and has not had recurrence of palpitations or rapid heart rate for the last year. No history of ischemic heart disease, no chest pain, changes in exercise tolerance or dyspnea on exertion. States he can walk up 2 flights of stairs without shortness of breath. never had syncope. Nohistory of atrial fibrillation. No other acute complaints. PMH: SCC of supraglottic larynx s/p chemoradiation HTN HLD WPW PSHx: 02/10/18: DL with bx 05/20/17: PEG placement for dislodged PEG 03/03/17: DL with bx, tracheostomy, PEG placement Social History: Former smoker FMHx: Family history of uterine cancer, kidney failure, and liver cancer ROS: 14 point ROS reviewed and is otherwise negative except that which is mentioned in the HPI. Allergy: Methadone->Other; Rash Docetaxel->Short of breath; Redness; Resp. Distress Inpatient Medications: Active Meds [retrieved for ANIBAL HEATH at 21 Mar 2018 13:39]: CARDIOVASCULAR AGENTS Metoprolol: 50 MG Oral 2 times a day CENTRAL NERVOUS SYSTEM AGENTS ALPRAZolam: 0.5 MG Oral 2 times a day Gabapentin: 600 MG Oral 3 times a day Morphine Tablet, Extended Release: 30 MG Oral every 12 hours OxyCODONE: 15 MG Oral every 12 hours COAGULATION MODIFIERS Enoxaparin Inj. (PROPHYLAXIS): 30 MG SubCutaneous once a day METABOLIC AGENTS Simvastatin: 10 MG Oral once a day (at bedtime) NUTRITIONAL PRODUCTS Lactated Ringers (no additives): 1000 mL IntraVenous continuous Vitals: VITALS (last 24h) [retrieved for ANIBAL HEATH at 21 Mar 2018 13:39]: Tc: 36.8 Tmax: 36.8 @ Feb 11:00 Tf: 98.3 Tmax: 98.3 @ Feb 11:00 HR: 42 (42 - 42) BP: 158/77 (209/40 - 178/74) RR: 16 (16 - 16) SpO2: 97% (97% - 97%) No I&O data recorded in last 24 hours Physical Examination: General: Resting comfortably, NAD HEENT: MMM, tracheostomy in place Neck: no JVD CV: RRR, normal s1/s2, no m/r/g Resp: Normal respiratory effort, CTAB Abd: soft, NT, ND Ext: wwp, no LE edema Skin: warm, pink, dry, without rashes or lesions Labs: LABS (last 48h) [retrieved for ANIBAL HEATH at 21 Mar 2018 13:39]: 142 105 13 < 98 Ca: 9.8 [03/21 @ 10:41] 4.0 26 0.88 WBC: 6.4 / Hb: 14.4 / Hct: 44.3 / Plt: 208 [03/21 @ 10:41] AST: 12 / ALT: 13 / AlkPhos: 79 / Bili: 0.6 / Prot: 7.7 / Alb: 3.7 [03/21 @ 10:41] Recent EK02/26/2017: sinus bradycardia with VR 57 well-visualized delta wave in precordial leads and II 03/18/2018: sinus bradycardia with VR 50 well-visualized delta wave in precordial leads and II Cardiovascular Imaging: TTE: The LV global longitudinal strain, based upon 2D speckle-tracking, is probably normal (>-16.5%). The right ventricular systolic function is normal. The ascending aorta is 4.1 cm in diameter, at the maximal area visualized. Moderate (40-49mm) aortic root dilatation. There is no pericardial effusion. 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 Cardiology is consulted given pre-operative EKG noting WPW. Initially recommended obtaining TTE --> now with incidentally found ascending thoracic aortic aneurysm (4.1 cm). Aortic at sinus of Valsalva is 3.5 cm in diameter, root at sinotubular junction is 3.8 cm in diameter. #) Pre-operative risk assessment for total laryngectomy in patient with WPW and incidentally discovered ascending thoracic aortic aneurysm: RCRI score is zero, suggesting low (0.4%) perioperative risk of cardiac complications. Patient can exercise to 4 METS, no active cardiac symptoms. -may proceed with surgery knowing following -largest risk of WPW-related arrhythmia is atrial fibrillation and use of beta-blockade -patient currently on metoprolol tartrate 50 mg BID, though bradycardic (which is also associated with worse surgical outcomes); reduce beta-frances from 50 mg BID to 25 mg BID tonight and tomorrow AM; may resume 50 mg BID thereafter -should patient develop atrial fibrillation with RVR during surgery, he should be cardioverted- notgiven additional antonio blockade- as giving additional antonio blockade to patient with accessory pathway can lead to VF arrest -for terminal make up operator management, patient has appointment with Dr. Hernandez 04/06 to discuss EP ablation forWPW -regarding incidental TAA: patient should have repeat TTE in 6 months to assess stability, size Please page with any further questions regarding this patient. Jaron Cole MD PGY-4 Truck Driver'[employer] Pager: [phone] Attending Attestation Statement: I saw and evaluated the patient with the resident/fellow. I discussed the case with the resident/fellow and agree with the findings and plan as documented. Electronic Signatures: Norman Basilio MD (Attending) (Signed 22-Mar-18 08:46) Authored: CRITICAL CARE CHARGING STATEMENT/ATTENDING ATTESTATION Co-Signer: CONSULTATION SERVICE, EVALUATION Jaron Cole MD (Resident) (Signed 21-Mar-18 15:17) Authored: CONSULTATION SERVICE, EVALUATION Last Updated: 22-Mar-18 08:46 by Norman Basilio MD (Attending) Electronically signed by Interface, [employer] Conversion at 11/22/2020 9:54 PM EDT documented in this encounter Plan of Treatment Upcoming Encounters Date Type Department Care Team (Late st Contact Info) Description 07/17/2024 12:30 PM EST Clinical Support Pav [facility] Head[facility] Neck [facility] Respiratory [address] [facility]nd [place] [address] 07/17/2024 1:30 PM EST Appointment [facility] Radiology [address] [place] [address] 07/20/2024 2:50 PM EST Office Visit [facility] Res[facility] [address] [facility] [place] [address] Divine Carpenter MD [address] [facility] [address] [place] [address] Pending Results Name Type Priority Associated Diagnoses Date /Time Type and Screen Lab Routine 8 6:24 AM EDT documented as of this encounter Procedures Procedure Name Priority Date/Time Associated Diagnosis Comments IONIZED CALCIUM, SERUM Routine 8 4:08 AM EDT CBC W/O DIFFERENTIAL Timed 03/29/2018 4:08 AM EDT PHOSPHORUS, PLASMA Timed 03/29/2018 4: 08 AM EDT MAGNESIUM, PLASMA Timed 03/29/2018 4:0 8 AM EDT BASIC METABOLIC PANEL, PLASMA Timed 03/29/2018 4:08 AM EDT IONIZED CALCIUM, WHOLE BLOOD Routine 03/29/2018 4:05 AM EDT CBC W/O DIFFERENTIAL Routine 03/28/2018 4:37 AM EDT PHOSPHORUS, PLASMA Routine 03/28/2018 4: 37 AM EDT MAGNESIUM, PLASMA Routine 03/28/2018 4:3 7 AM EDT IONIZED CALCIUM, LUKE Routine 03/28/2018 4:37 AM EDT BASIC METABOLIC PANEL, PLASMA Routine 03/28/2018 4:37 AM EDT CBC W/O DIFFERENTIAL Routine 03/27/2018 4:36 AM EDT PHOSPHORUS, PLASMA Routine 03/27/2018 4: 36 AM EDT MAGNESIUM, PLASMA Routine 03/27/2018 4:3 6 AM EDT IONIZED CALCIUM, LUKE Routine 03/27/2018 4:36 AM EDT BASIC METABOLIC PANEL, PLASMA Routine 03/27/2018 4:36 AM EDT CBC W/O DIFFERENTIAL Routine 03/26/2018 4:30 AM EDT PHOSPHORUS, PLASMA Routine 03/26/2018 4: 30 AM EDT MAGNESIUM, PLASMA Routine 03/26/2018 4:3 0 AM EDT IONIZED CALCIUM, LUKE Routine 03/26/2018 4:30 AM EDT BASIC METABOLIC PANEL, PLASMA Routine 03/26/2018 4:30 AM EDT CBC W/O DIFFERENTIAL Routine 03/25/2018 3:13 AM EDT PHOSPHORUS, PLASMA Routine 03/25/2018 3: 13 AM EDT MAGNESIUM, PLASMA Routine 03/25/2018 3:1 3 AM EDT IONIZED CALCIUM, LUKE Routine 03/25/2018 3:13 AM EDT BASIC METABOLIC PANEL, PLASMA Routine 03/25/2018 3:13 AM EDT CBC W/O DIFFERENTIAL Routine 03/24/2018 4:00 AM EDT PHOSPHORUS, PLASMA Routine 03/24/2018 4: 00 AM EDT MAGNESIUM, PLASMA Routine 03/24/2018 4:0 0 AM EDT IONIZED CALCIUM, LUKE Routine 03/24/2018 4:00 AM EDT BASIC METABOLIC PANEL, PLASMA Routine 03/24/2018 4:00 AM EDT XR CHEST 1 VIEW Routine 03/23/2018 7:26 AM EDT CBC W/O DIFFERENTIAL Timed 03/23/2018 1:45 AM EDT PHOSPHORUS, PLASMA Timed 03/23/2018 1: 45 AM EDT MAGNESIUM, PLASMA Timed 03/23/2018 1:4 5 AM EDT IONIZED CALCIUM, LUKE Timed 03/23/2018 1:45 AM EDT BASIC METABOLIC PANEL, PLASMA Timed 03/23/2018 1:45 AM EDT XR ABDOMEN 1 VIEW Routine 03/22/2018 7:4 5 PM EDT GLUCOSE POINT OF CARE DC Routine 03/22/2018 5:23 PM EDT SODIUM, SYRINGE DC Routine 03/22/2018 4: 59 PM EDT LACTATE, ARTERIAL Routine 03/22/2018 4:5 9 PM EDT POTASSIUM, WHOLE BLOOD Routine 8 4:59 PM EDT IONIZED CALCIUM, WHOLE BLOOD Routine 03/22/2018 4:59 PM EDT HEMATOCRIT, SYRINGE Routine 03/22/2018 4 :59 PM EDT GLUCOSE, SYRINGE Routine 03/22/2018 4:59 PM EDT CHLORIDE, SYRINGE Routine 03/22/2018 4:5 9 PM EDT BLOOD GAS PANEL, ARTERIAL Routine 03/22/2018 4:59 PM EDT SURGPATH DATA CONVERSION Routine 03/22/2018 11:24 AM EDT APTT Routine 03/22/2018 6:24 AM EDT PROTHROMBIN TIME(PT) / INR Routine 03/22/2018 6:24 AM EDT TYPE AND SCREEN Routine 03/22/2018 6:24 AM EDT ECHO, ADULT TTE Routine 03/21/2018 1:28 PM EDT CBC W/O DIFFERENTIAL STAT 03/21/2018 10:41 AM EDT TSH Routine 03/21/2018 10:41 AM EDT FREE T4, PLASMA Routine 03/21/2018 10:41 AM EDT PREALBUMIN, PLASMA Routine 03/21/2018 10 :41 AM EDT COMPREHENSIVE METABOLIC PANEL, PLASMA Routine 03/21/2018 10:41 AM EDT ECG ADULT 03/21/2018 documented in this encounter Results * (ABNORMAL) CBC W/O Differential (03/29/2018 4:08 AM EDT) WBC Count 7.6 3.7 - 10.3 k/uL [facility] RBC Count 3.54(L) 4.6 - 6.1 M/uL [facility] HGB 9.7(L) 13.7 - 17.5 g/dL [facility] HCT 30.6(L) 40 - 51 % [facility] Platelet Count 214 155 - 369 k/uL [facility] MCV 86 79 - 98 fL [facility] MCH 27.4 26 - 32 pg [facility] MCHC 31.7 30.7 - 35.5 g/dL [facility] RDW 14.6(H) 12.4 - 14.9 % [facility] MPV 11.7 8.8 - 12.5 fL [facility] NRBC COUNT 0 0 % [facility] 03/29/2018 4:08 AM EDT 03/29/2018 4:20 AM EDT Nabil Estevez MD LAB BLOOD ORDERABLES Final Result Performing Organization Address [facility] de Phone Number [facility] * Phosphorus, Plasma (03/29/2018 4:08 AM EDT) Phosphorus, Plasma 3.8 2.5 - 4.5 mg/dL [facility] 03/29/2018 4:08 AM EDT 03/29/2018 4:19 AM EDT Nabil Estevez MD LAB BLOOD ORDERABLES Final Result Performing Organization Address City/[facility] Co de Phone Number [facility] * Magnesium, Plasma (03/29/2018 4:08 AM EDT) Magnesium, Plasma 2.2 1.9 - 2.4 mg/dL [facility] 03/29/2018 4:08 AM EDT 03/29/2018 4:19 AM EDT Nabil Estevez MD LAB BLOOD ORDERABLES Final Result Performing Organization Address [facility] de Phone Number [facility] * (ABNORMAL) Basic Metabolic Panel, Plasma (03/29/2018 4:08 AM EDT) Glucose, Plasma 114(H) 74 - 99 mg/dL [facility] BUN, Plasma 17 7 - 21 mg/dL [facility] Creatinine, Plasma 0.76(L) 0.80 - 1.30 mg/dL [facility] BUN/Creatinine Ratio 22(H) 8 - 20 [facility] Sodium, Plasma 141 136 - 145 mmol/L [facility] Potassium, Plasma 4.2 3.7 - 4.8 mmol/L [facility] Chloride, Plasma 104 101 - 108 mmol/L [facility] CO2, Plasma 30(H) 22 - 29 mmol/L [facility] Anion Gap 7 6 - 16 mmol/L [facility] Calcium, Plasma 8.8(L) 8.9 - 10.2 mg/dL [facility] eGFR >60 [...] rapidly changing or patient is on dialysis. 03/29/2018 4:08 AM EDT 03/29/2018 4:19 AM EDT us Nabil Estevez MD LAB BLOOD ORDERABLES Final Result Performing Organization Address [facility] Co de Phone Number [facility] * Ionized calcium, serum (03/29/2018 4:08 AM EDT) Ionized Calcium, Serum IMPROPER SPECIMEN. RECOLLECT REQUESTED. 4.6 - 5.3 mg/dL [facility] Comment:DORIS WIN RN AT 0 [phone] 03/29/2018 4:08 AM EDT 03/29/2018 5:02 AM EDT Lubna Correia MD LAB BLOOD ORDERABLES Final Result Performing Organization Address [facility] de Phone Number [facility] * Ionized calcium, whole blood (03/29/2018 4:05 AM EDT) Ionized Calcium, Syringe 4.7 4.6 - 5.1 mg/dL [facility] 03/29/2018 4:05 AM EDT 03/29/2018 5:00 AM EDT Lubna Correia MD LAB BLOOD ORDERABLES Final Result Performing Organization Address [facility] de Phone Number [facility] * (ABNORMAL) Ionized calcium, other (03/28/2018 4:37 AM EDT) Ionized Calcium, Whole Blood 4.5(L) 4.6 - 5.1 mg/dL [facility] 03/28/2018 4:37 AM EDT 03/28/2018 4:44 AM EDT Tracy Leslie MD LAB BLOOD ORDERABLES Final Res ult Performing Organization Address [facility] de Phone Number [facility] * Phosphorus, Plasma (03/28/2018 4:37 AM EDT) Phosphorus, Plasma 3.9 2.5 - 4.5 mg/dL [facility] 03/28/2018 4:37 AM EDT 03/28/2018 4:38 AM EDT Tracy Leslie MD LAB BLOOD ORDERABLES Final Res ult Performing Organization Address [facility] de Phone Number [facility] * Magnesium, Plasma (03/28/2018 4:37 AM EDT) Magnesium, Plasma 2.1 1.9 - 2.4 mg/dL [facility] 03/28/2018 4:37 AM EDT 03/28/2018 4:38 AM EDT Tracy Leslie MD LAB BLOOD ORDERABLES Final Res ult Performing Organization Address [facility] de Phone Number [facility] * (ABNORMAL) Basic Metabolic Panel, Plasma (03/28/2018 4:37 AM EDT) Glucose, Plasma 104(H) 74 - 99 mg/dL [facility] BUN, Plasma 15 7 - 21 mg/dL [facility] Creatinine, Plasma 0.75(L) 0.80 - 1.30 mg/dL [facility] BUN/Creatinine Ratio 20 8 - 20 [facility] Sodium, Plasma 142 136 - 145 mmol/L [facility] Potassium, Plasma 4.6 3.7 - 4.8 mmol/L [facility] Chloride, Plasma 103 101 - 108 mmol/L [facility] CO2, Plasma 27 22 - 29 mmol/L [facility] Anion Gap 12 6 - 16 mmol/L [facility] Calcium, Plasma 8.9 8.9 - 10.2 mg/dL [facility] eGFR >60 [...] rapidly changing or patient is on dialysis. 03/28/2018 4:37 AM EDT 03/28/2018 4:38 AM EDT Tracy Leslie MD LAB BLOOD ORDERABLES Final Res ult Performing Organization Address [facility] de Phone Number [facility] * (ABNORMAL) CBC W/O Differential (03/28/2018 4:37 AM EDT) WBC Count 8.6 3.7 - 10.3 k/uL [facility] RBC Count 3.62(L) 4.6 - 6.1 M/uL [facility] HGB 10.0(L) 13.7 - 17.5 g/dL [facility] HCT 31.2(L) 40 - 51 % [facility] Platelet Count 191 155 - 369 k/uL [facility] MCV 86 79 - 98 fL [facility] MCH 27.6 26 - 32 pg [facility] MCHC 32.1 30.7 - 35.5 g/dL [facility] RDW 14.4 12.4 - 14.9 % [facility] MPV 11.6 8.8 - 12.5 fL [facility] NRBC COUNT 0.2(H) 0 % [facility] 03/28/2018 4:37 AM EDT 03/28/2018 4:38 AM EDT us Tracy Leslie MD LAB BLOOD ORDERABLES Final Res ult Performing Organization Address [facility] Co de Phone Number [facility] * Ionized calcium, other (03/27/2018 4:36 AM EDT) Ionized Calcium, Whole Blood 4.7 4.6 - 5.1 mg/dL [facility] 03/27/2018 4:36 AM EDT 03/27/2018 4:40 AM EDT us Tracy Leslie MD LAB BLOOD ORDERABLES Final Res ult Performing Organization Address [facility] de Phone Number [facility] * Phosphorus, Plasma (03/27/2018 4:36 AM EDT) Phosphorus, Plasma 3.2 2.5 - 4.5 mg/dL [facility] 03/27/2018 4:36 AM EDT 03/27/2018 4:42 AM EDT us Tracy Leslie MD LAB BLOOD ORDERABLES Final Res ult Performing Organization Address [facility] Co de Phone Number [facility] * Magnesium, Plasma (03/27/2018 4:36 AM EDT) Magnesium, Plasma 1.9 1.9 - 2.4 mg/dL [facility] 03/27/2018 4:36 AM EDT 03/27/2018 4:42 AM EDT us Tracy Leslie MD LAB BLOOD ORDERABLES Final Res ult Performing Organization Address [facility] de Phone Number [facility] * (ABNORMAL) Basic Metabolic Panel, Plasma (03/27/2018 4:36 AM EDT) Glucose, Plasma 125(H) 74 - 99 mg/dL [facility] BUN, Plasma 16 7 - 21 mg/dL [facility] Creatinine, Plasma 0.65(L) 0.80 - 1.30 mg/dL [facility] BUN/Creatinine Ratio 25(H) 8 - 20 [facility] Sodium, Plasma 143 136 - 145 mmol/L [facility] Potassium, Plasma 4.0 3.7 - 4.8 mmol/L [facility] Chloride, Plasma 108 101 - 108 mmol/L [facility] CO2, Plasma 23 22 - 29 mmol/L [facility] Anion Gap 12 6 - 16 mmol/L [facility] Calcium, Plasma 7.9(L) 8.9 - 10.2 mg/dL [facility] eGFR >60 [...] rapidly changing or patient is on dialysis. 03/27/2018 4:36 AM EDT 03/27/2018 4:42 AM EDT Tracy Leslie MD LAB BLOOD ORDERABLES Final Res ult Performing Organization Address [facility] de Phone Number [facility] * (ABNORMAL) CBC W/O Differential (03/27/2018 4:36 AM EDT) WBC Count 7.9 3.7 - 10.3 k/uL [facility] RBC Count 3.60(L) 4.6 - 6.1 M/uL [facility] HGB 9.8(L) 13.7 - 17.5 g/dL [facility] HCT 31.0(L) 40 - 51 % [facility] Platelet Count 177 155 - 369 k/uL [facility] MCV 86 79 - 98 fL SUNQUEST MCH 27.2 26 - 32 pg [facility] MCHC 31.6 30.7 - 35.5 g/dL [facility] RDW 14.7(H) 12.4 - 14.9 % [facility] MPV 11.7 8.8 - 12.5 fL [facility] NRBC COUNT 0 0 % [facility] 03/27/2018 4:36 AM EDT 03/27/2018 4:40 AM EDT us Tracy Leslie MD LAB BLOOD ORDERABLES Final Res ult SUNQUEST * (ABNORMAL) Ionized calcium, other (03/26/2018 4:30 AM EDT) Ionized Calcium, Whole Blood 4.2(L) 4.6 - 5.1 mg/dL [facility] 03/26/2018 4:30 AM EDT 03/26/2018 5:07 AM EDT us Tracy Leslie MD LAB BLOOD ORDERABLES Final Res ult Performing Organization Address [facility] Co de Phone Number SUNQUEST * Phosphorus, Plasma (03/26/2018 4:30 AM EDT) Phosphorus, Plasma 3.5 2.5 - 4.5 mg/dL [facility] 03/26/2018 4:30 AM EDT 03/26/2018 5:08 AM EDT us Tracy Leslie MD LAB BLOOD ORDERABLES Final Res ult Performing Organization Address City/State/[facility] Co de Phone Number SUNQUEST * Magnesium, Plasma (03/26/2018 4:30 AM EDT) Magnesium, Plasma 2.1 1.9 - 2.4 mg/dL [facility] 03/26/2018 4:30 AM EDT 03/26/2018 5:08 AM EDT us Tracy Leslie MD LAB BLOOD ORDERABLES Final Res ult SUNQUEST * (ABNORMAL) Basic Metabolic Panel, Plasma (03/26/2018 4:30 AM EDT) Glucose, Plasma 122(H) 74 - 99 mg/dL [facility] BUN, Plasma 15 7 - 21 mg/dL [facility] Creatinine, Plasma 0.74(L) 0.80 - 1.30 mg/dL [facility] BUN/Creatinine Ratio 20 8 - 20 [facility] Sodium, Plasma 142 136 - 145 mmol/L [facility] Potassium, Plasma 4.4 3.7 - 4.8 mmol/L [facility]QUEST Comment:Hemolyzed, result ma y be falsely increased. Chloride, Plasma 108 101 - 108 mmol/L [facility] CO2, Plasma 25 22 - 29 mmol/L [facility] Anion Gap 9 6 - 16 mmol/L [facility] Calcium, Plasma 8.4(L) 8.9 - 10.2 mg/dL [facility]QUEST eGFR >60 [...] rapidly changing or patient is on dialysis. 03/26/2018 4:30 AM EDT 03/26/2018 5:08 AM EDT Tracy Leslie MD LAB BLOOD ORDERABLES Final Res ult SUNQUEST * (ABNORMAL) CBC W/O Differential (03/26/2018 4:30 AM EDT) WBC Count 6.7 3.7 - 10.3 k/uL [facility] RBC Count 3.34(L) 4.6 - 6.1 M/uL [facility] HGB 9.3(L) 13.7 - 17.5 g/dL [facility] HCT 29.2(L) 40 - 51 % [facility] Platelet Count 118(L) 155 - 369 k/uL [facility]QUEST MCV 87 79 - 98 fL [facility]QUEST MCH 27.8 26 - 32 pg [facility] MCHC 31.8 30.7 - 35.5 g/dL [facility] RDW 15.1(H) 12.4 - 14.9 % [facility]QUEST MPV 12.6(H) 8.8 - 12.5 fL [facility]QUEST NRBC COUNT 0 0 % [facility]QUEST 03/26/2018 4:30 AM EDT 03/26/2018 5:07 AM EDT us Tracy Leslie MD LAB BLOOD ORDERABLES Final Res ult SUNQUEST * (ABNORMAL) Ionized calcium, other (03/25/2018 3:13 AM EDT) Ionized Calcium, Whole Blood 4.5(L) 4.6 - 5.1 mg/dL [facility] 03/25/2018 3:13 AM EDT 03/25/2018 3:20 AM EDT Tracy Leslie MD LAB BLOOD ORDERABLES Final Res ult Performing Organization Address City/[facility] Co de Phone Number SUNQUEST * Phosphorus, Plasma (03/25/2018 3:13 AM EDT) Phosphorus, Plasma 2.6 2.5 - 4.5 mg/dL [facility] 03/25/2018 3:13 AM EDT 03/25/2018 3:22 AM EDT Tracy Leslie MD LAB BLOOD ORDERABLES Final Res ult SUNQUEST * Magnesium, Plasma (03/25/2018 3:13 AM EDT) Magnesium, Plasma 2.1 1.9 - 2.4 mg/dL [facility] 03/25/2018 3:13 AM EDT 03/25/2018 3:22 AM EDT Tracy Leslie MD LAB BLOOD ORDERABLES Final Res ult Performing Organization Address [facility] de Phone Number SUNQUEST * (ABNORMAL) Basic Metabolic Panel, Plasma (03/25/2018 3:13 AM EDT) Glucose, Plasma 118(H) 74 - 99 mg/dL [facility] BUN, Plasma 15 7 - 21 mg/dL [facility] Creatinine, Plasma 0.82 0.80 - 1.30 mg/dL [facility] BUN/Creatinine Ratio 18 8 - 20 [facility] Sodium, Plasma 140 136 - 145 mmol/L [facility] Potassium, Plasma 4.1 3.7 - 4.8 mmol/L [facility] Chloride, Plasma 105 101 - 108 mmol/L [facility] CO2, Plasma 26 22 - 29 mmol/L [facility] Anion Gap 9 6 - 16 mmol/L [facility] Calcium, Plasma 8.5(L) 8.9 - 10.2 mg/dL [facility]QUEST eGFR >60 [...] rapidly changing or patient is on dialysis. 03/25/2018 3:13 AM EDT 03/25/2018 3:22 AM EDT Tracy Leslie MD LAB BLOOD ORDERABLES Final Res ult Performing Organization Address [facility]/ZIP Co de Phone Number SUNQUEST * (ABNORMAL) CBC W/O Differential (03/25/2018 3:13 AM EDT) WBC Count 8.5 3.7 - 10.3 k/uL [facility] RBC Count 3.65(L) 4.6 - 6.1 M/uL [facility] HGB 10.1(L) 13.7 - 17.5 g/dL [facility] HCT 32.0(L) 40 - 51 % [facility] Platelet Count 139(L) 155 - 369 k/uL [facility] MCV 88 79 - 98 fL [facility] MCH 27.7 26 - 32 pg [facility] MCHC 31.6 30.7 - 35.5 g/dL [facility] RDW 15.3(H) 12.4 - 14.9 % [facility] MPV 11.7 8.8 - 12.5 fL [facility] NRBC COUNT 0 0 % [facility]QUEST 03/25/2018 3:13 AM EDT 03/25/2018 3:25 AM EDT us Tracy Leslie MD LAB BLOOD ORDERABLES Final Res ult SUNQUEST * (ABNORMAL) Ionized calcium, other (03/24/2018 4:00 AM EDT) Ionized Calcium, Whole Blood 4.4(L) 4.6 - 5.1 mg/dL [facility] 03/24/2018 4:00 AM EDT 03/24/2018 4:08 AM EDT us Tracy Leslie MD LAB BLOOD ORDERABLES Final Res ult Performing Organization Address [facility] de Phone Number SUNQUEST * Phosphorus, Plasma (03/24/2018 4:00 AM EDT) Phosphorus, Plasma 3.0 2.5 - 4.5 mg/dL [facility] 03/24/2018 4:00 AM EDT 03/24/2018 4:10 AM EDT us Tracy Leslie MD LAB BLOOD ORDERABLES Final Res ult Performing Organization Address City/[facility]/ZIP Co de Phone Number SUNQUEST * Magnesium, Plasma (03/24/2018 4:00 AM EDT) Magnesium, Plasma 2.1 1.9 - 2.4 mg/dL [facility] 03/24/2018 4:00 AM EDT 03/24/2018 4:10 AM EDT Tracy Leslie MD LAB BLOOD ORDERABLES Final Res ult Performing Organization Address [facility] de Phone Number SUNQUEST * (ABNORMAL) Basic Metabolic Panel, Plasma (03/24/2018 4:00 AM EDT) Glucose, Plasma 94 74 - 99 mg/dL [facility] BUN, Plasma 13 7 - 21 mg/dL [facility] Creatinine, Plasma 0.96 0.80 - 1.30 mg/dL [facility] BUN/Creatinine Ratio 14 8 - 20 [facility] Sodium, Plasma 142 136 - 145 mmol/L [facility] Potassium, Plasma 4.2 3.7 - 4.8 mmol/L [facility] Chloride, Plasma 106 101 - 108 mmol/L [facility]QUEST CO2, Plasma 26 22 - 29 mmol/L [facility] Anion Gap 10 6 - 16 mmol/L [facility]QUEST Calcium, Plasma 8.8(L) 8.9 - 10.2 mg/dL [facility]QUEST eGFR >60 [...] rapidly changing or patient is on dialysis. 03/24/2018 4:00 AM EDT 03/24/2018 4:10 AM EDT Tracy Leslie MD LAB BLOOD ORDERABLES Final Res ult Performing Organization Address [facility] Co de Phone Number SUNQUEST * (ABNORMAL) CBC W/O Differential (03/24/2018 4:00 AM EDT) WBC Count 11.1(H) 3.7 - 10.3 k/uL [facility] RBC Count 4.34(L) 4.6 - 6.1 M/uL [facility] HGB 11.9(L) 13.7 - 17.5 g/dL [facility] HCT 37.4(L) 40 - 51 % [facility] Platelet Count 173 155 - 369 k/uL [facility] MCV 86 79 - 98 fL [facility] MCH 27.4 26 - 32 pg [facility] MCHC 31.8 30.7 - 35.5 g/dL [facility] RDW 15.5(H) 12.4 - 14.9 % [facility] MPV 11.5 8.8 - 12.5 fL [facility] NRBC COUNT 0 0 % [facility] 03/24/2018 4:00 AM EDT 03/24/2018 4:08 AM EDT us Tracy Leslie MD LAB BLOOD ORDERABLES Final Res ult CECILY * XR Chest 1 View (03/23/2018 7:26 AM EDT) Anatomical Region Laterality Modality Chest Radiographic Carolyn ging Narrative 03/23/2018 9:42 AM EDT REQUESTING PHYSICIAN: LUBNA CORREIA REASON FOR EXAMINATION/PROCEDURE: RAD PDP:Y ??* ??evaluation of lung jasso EXAMINATION / PROCEDURE: CHEST 1 VIEW PA/AP PORTABLE Mar 23 2018 - 07:26; ?? CLINICAL INDICATION: RAD PDP:Y ??* ??evaluation o f lung jasso TECHNIQUE: CHEST 1 VIEW PA/AP PORTABLE COMPARISON: August 11, 2017 FINDINGS: Tracheostomy tube is in place. Nasogastric tube terminates within the stomach. Stable cardiac silhouette. No acute airspace disease. No pleural e ffusions or pneumothorax. ?? IMPRESSION: No acute findings. CRITICAL RESULT: ?? No. COMMUNICATION: Per this written report. ?? Verified by: KEE VIVEROS M.D. on Mar 23 2018 ??9:40A Transcribed by: [facility] on Mar 23 2018 ??9:40A D ictated by: KEE VIVEROS M.D. on Mar 23 2018 ??9:40A Procedure Note Kee Viveros - 09/23/2020 REQUESTING PHYSICIAN: LUBNA CORREIA REASON FOR EXAMINATION/PROCEDURE: RAD PDP:Y * evaluation of lung jasso EXAMINATION / PROCEDURE: CHEST 1 VIEW PA/AP PORTABLE Mar 23 2018 - 07:26; CLINICAL INDICATION: RAD PDP:Y * evaluation o f lung jasso TECHNIQUE: CHEST 1 VIEW PA/AP PORTABLE COMPARISON: August 11, 2017 FINDINGS: Tracheostomy tube is in place. Nasogastric tube terminates within the stomach. Stable cardiac silhouette. No acute airspace disease. No pleural e ffusions or pneumothorax. IMPRESSION: No acute findings. CRITICAL RESULT: No. COMMUNICATION: Per this written report. Verified by: KEE VIVEROS M.D. on Mar 23 2018 9:40A Transcribed by: HITESH on Mar 23 2018 9:40A D ictated by: KEE VIVEROS M.D. on Mar 23 2018 9:40A Result [facility] Lubna Correia MD IMG XR PROCEDURES Final Re sult * (ABNORMAL) Ionized calcium, other (03/23/2018 1:45 AM EDT) Ionized Calcium, Whole Blood 4.3(L) 4.6 - 5.1 mg/dL [facility]QUEST 03/23/2018 1:45 AM EDT 03/23/2018 2:00 AM EDT Historical Provider LAB BLOOD ORDERABLES Neida l Result Performing Organization Address [facility] de Phone Number SUNQUEST * (ABNORMAL) Phosphorus, Plasma (03/23/2018 1:45 AM EDT) Phosphorus, Plasma 1.9(L) 2.5 - 4.5 mg/dL [facility]QUEST 03/23/2018 1:45 AM EDT 03/23/2018 1:56 AM EDT Historical Provider LAB BLOOD ORDERABLES Neida l Result Performing Organization Address [facility] Co de Phone Number SUNQUEST * (ABNORMAL) Magnesium, Plasma (03/23/2018 1:45 AM EDT) Magnesium, Plasma 1.6(L) 1.9 - 2.4 mg/dL [facility]QUEST 03/23/2018 1:45 AM EDT 03/23/2018 1:56 AM EDT Historical Provider LAB BLOOD ORDERABLES Neida l Result Performing Organization Address [facility] Co de Phone Number SUNQUEST * (ABNORMAL) Basic Metabolic Panel, Plasma (03/23/2018 1:45 AM EDT) Glucose, Plasma 149(H) 74 - 99 mg/dL [facility] BUN, Plasma 13 7 - 21 mg/dL [facility] Creatinine, Plasma 0.92 0.80 - 1.30 mg/dL [facility] BUN/Creatinine Ratio 14 8 - 20 [facility]QUEST Sodium, Plasma 139 136 - 145 mmol/L [facility]QUEST Potassium, Plasma 3.6(L) 3.7 - 4.8 mmol/L [facility] Chloride, Plasma 105 101 - 108 mmol/L [facility] CO2, Plasma 21(L) 22 - 29 mmol/L [facility] Anion Gap 13 6 - 16 mmol/L [facility]QUEST Calcium, Plasma 8.9 8.9 - 10.2 mg/dL [facility]QUEST eGFR >60 [...] rapidly changing or patient is on dialysis. 03/23/2018 1:45 AM EDT 03/23/2018 1:56 AM EDT us Historical Provider LAB BLOOD ORDERABLES Neida l Result Performing Organization Address City/[facility]/ZIP Co de Phone Number SUNQUEST * (ABNORMAL) CBC W/O Differential (03/23/2018 1:45 AM EDT) WBC Count 17.1(H) 3.7 - 10.3 k/uL [facility]QUEST RBC Count 4.56(L) 4.6 - 6.1 M/uL [facility] HGB 12.8(L) 13.7 - 17.5 g/dL [facility]QUEST HCT 38.0(L) 40 - 51 % [facility]QUEST Platelet Count 180 155 - 369 k/uL [facility]QUEST MCV 83 79 - 98 fL [facility]QUEST MCH 28.1 26 - 32 pg [facility]QUEST MCHC 33.7 30.7 - 35.5 g/dL [facility] RDW 14.9(H) 12.4 - 14.9 % [facility]QUEST MPV 10.9 8.8 - 12.5 fL [facility]QUEST NRBC COUNT 0 0 % [facility]QUEST 03/23/2018 1:45 AM EDT 03/23/2018 1:56 AM EDT us Historical Provider LAB BLOOD ORDERABLES Neida nelson Result SUNQUEST * XR Abdomen 1 View (03/22/2018 7:45 PM EDT) Anatomical Region Laterality Modality Body Radiographic Carolyn ging Narrative 03/23/2018 8:21 AM EDT REQUESTING PHYSICIAN: LUBNA CORREIA REASON FOR EXAMINATION/PROCEDURE: RAD PDP:Y ??* ??NGT placement EXAMINATION / PROCEDURE: ABDOMEN 1 VIEW PORTABLE Mar 22 2018 - 19:45; ?? CLINICAL INDICATION: Nasogastric tube placement TECHNIQUE: ABDOMEN 1 VIEW PORTABLE COMPARISON: None. FINDINGS: Nasogastric tube in good position with tip and sidehole in fundus of stomach. ?? IMPRESSION: Nasogastric tube in good position. CRITICAL RESULT: ?? No. COMMUNICATION: Per this wr itten report. ?? Verified by: IRVING OLIVAREZ M.D. on Mar 23 2018 ??8:19A Transcribed by: [facility] on Mar 23 2018 ??8:19A Dictated by: IRVING OLIVAREZ M.D. on Mar 23 2018 ??8:17A Procedure Note Irving Olivarez - 09/23/2020 REQUESTING PHYSICIAN: LUBNA CORREIA REASON FOR EXAMINATION/PROCEDURE: RAD PDP:Y * NGT placement EXAMINATION / PROCEDURE: ABDOMEN 1 VIEW PORTABLE Mar 22 2018 - 19:45; CLINICAL INDICATION: Nasogastric tube placement TECHNIQUE: ABDOMEN 1 VIEW PORTABLE COMPARISON: None. FINDINGS: Nasogastric tube in good position with tip and sidehole in fundus of stomach. IMPRESSION: Nasogastric tube in good position. CRITICAL RESULT: No. COMMUNICATION: Per this wr itten report. Verified by: IRVING OLIVAREZ M.D. on Mar 23 2018 8:19A Transcribed by: [facility]ENTERLitzy on Mar 23 2018 8:19A Dictated by: IRVING OLIVAREZ M.D. on Mar 23 2018 8:17A us Lubna Correia MD IMG XR PROCEDURES Final Re sult * (ABNORMAL) Glucose Point of Care. (03/22/2018 5:23 PM EDT) POCT Glucose 156(H) 74 - 99 mg/dL [facility]QUEST 03/22/2018 5:23 PM EDT 03/22/2018 5:25 PM EDT us Lubna Correia MD LAB BLOOD ORDERABLES Final Result Performing Organization Address [facility] de Phone Number SUNQUEST * Sodium, Syringe (03/22/2018 4:59 PM EDT) Sodium, Whole Blood 141 136 - 145 mmol/L SUNQUEST 03/22/2018 4:59 PM EDT 03/22/2018 4:59 PM EDT us Lubna Correia MD LAB BLOOD ORDERABLES Final Result Performing Organization Address [facility] Co de Phone Number SUNQUEST * Lactate, arterial (03/22/2018 4:59 PM EDT) Lactate, Arterial 1.6 0.5 - 1.6 mmol/L [facility]QUEST 03/22/2018 4:59 PM EDT 03/22/2018 4:59 PM EDT us Lubna Correia MD LAB BLOOD ORDERABLES Final Result Performing Organization Address [facility] Co de Phone Number SUNQUEST * Potassium, Syringe (03/22/2018 4:59 PM EDT) Potassium, Whole Blood 4.1 3.7 - 4.8 mmol/L [facility]QUEST 03/22/2018 4:59 PM EDT 03/22/2018 4:59 PM EDT Result Shamika Correia MD LAB BLOOD ORDERABLES Final Result Performing Organization Address City/[facility] de Phone Number SUNQUEST * (ABNORMAL) Ionized calcium, whole blood (03/22/2018 4:59 PM EDT) Ionized Calcium, Syringe 4.5(L) 4.6 - 5.1 mg/dL SUNQUEST 03/22/2018 4:59 PM EDT 03/22/2018 4:59 PM EDT Result Shamika Correia MD LAB BLOOD ORDERABLES Final Result Performing Organization Address [facility] Phone Number SUNQUEST * Hematocrit, Syringe (03/22/2018 4:59 PM EDT) Hematocrit, Whole Blood 40.6 40 - 51 % SUNQUEST 03/22/2018 4:59 PM EDT 03/22/2018 4:59 PM EDT Result Shamika Correia MD LAB BLOOD ORDERABLES Final Result Performing Organization Address [facility] de Phone Number SUNQUEST * (ABNORMAL) Glucose, Syringe (03/22/2018 4:59 PM EDT) Glucose, Whole Blood 156(H) 74 - 99 mg/dL [facility]QUEST 03/22/2018 4:59 PM EDT 03/22/2018 4:59 PM EDT Result Shamika Correia MD LAB BLOOD ORDERABLES Final Result Performing Organization Address City/[facility] Co de Phone Number SUNQUEST * Chloride, Syringe (03/22/2018 4:59 PM EDT) Chloride, Whole Blood 107 101 - 108 mmol/L [facility]QUEST 03/22/2018 4:59 PM EDT 03/22/2018 4:59 PM EDT Lubna Correia MD LAB BLOOD ORDERABLES Final Result Performing Organization Address [facility] Co de Phone Number SUNQUEST * (ABNORMAL) Blood gas panel, arterial (03/22/2018 4:59 PM EDT) pH, Arterial 7.34(L) 7.35 - 7.45 [facility]QUEST pCO2, Arterial 48 35 - 48 mmHg [facility]QUEST pO2, Arterial 95 83 - 108 mmHg [facility]QUEST SO2, Measured, Arterial 98 94 - 98 % SUNQUEST Base Deficit 0.5 0 - 2.0 mmol/L [facility]QUEST Bicarbonate, Calculated, Arterial 26 22 - 26 mmol/L [facility]QUEST 03/22/2018 4:59 PM EDT 03/22/2018 4:59 PM EDT Lubna Correia MD LAB BLOOD ORDERABLES Final Result Performing Organization Address [facility] Co de Phone Number SUNQUEST * Surgical Pathology (03/22/2018 11:24 AM EDT) 03/22/2018 11:2 4 AM EDT 03/22/2018 11:24 AM EDT Narrative [facility]QUEST - 04/08/2018 10:59 AM EST [place], [place] [address] MR #: [id number] ANIBAL HEATH 1965 (Age: 52) ??MW Collect Date: 03/22/2018 11:24 Receipt Date: 03/22/2018 11:24 Page 1 DEPARTMENT OF PATHOLOGY AND LABORATORY MEDICINE SURGICAL PATHOLOGY REPORT Fax: ??[phone] ?[phone] Email: [email or web address] ? * Amended * ATTENDING MD: Dionicio Correia MD ? Service: ENT ? Location: A2OR OTHER MD(S): Bridget Calvillo MD ? Reported: 04/08/2018 10:59 DIAGNOSIS A. SPECIMEN SUBMITTED LEFT PHARYNX MARGIN, EXCISION ??-NO TUMOR SEEN B. SPECIMEN SUBMITTED LEFT BASE OF TONGUE MARGIN, EXCISION: ??-NO TUMOR SEEN C. 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 THE EPIGLOTTIS AND PREEPIGLOTTIC SPACE, [ypT3, ypN0] ??- MARGINS FREE OF TUMOR ??- LYMPHVASCULAR INVASION IDENTIFIED ??- NO TUMOR SEEN, THYROID ??- SEE CHECKLIST D. LYMPH NODES, RIGHT LEVEL II, EXCISION: ??-NO TUMOR SEEN IN ONE HYALINIZED LYMPH NODE (0/1) NOTE This amendment is issued to correct template for lymphvascular invasion, changing not identified to there is lymphvascular invasion. ??The diagnosis remains unchanged. ? Electronically Signed Out ? jhn/03/30/2018 Yaw Bradley M.D. ?? CAP Cancer Checklist LARYNX Protocol web posting date: 2016-11-27 ? Procedure: ?? Total laryngectomy Tumor Site: ?? Larynx, supraglottis: ?? vallecula/epiglottis Larynx, Supraglottis Subtype: ?? Epiglottis, lingual aspect Transglottic Extension: ?? Not identified Tumor Laterality: ?? Left Histologic Type: ?? Squamous Cell Carcinoma and Variants - Histologic Grade: ?? Not applicable: ?? status/post therapy; previous biopsy showed a poorly differentiated tumor Tumor Focality: ?? Unifocal Tumor Size: ?? 1.5 x 1.4 x 1 Centimeters (cm) Tumor Extension: ?? into the pre-epiglottic space and lingual surface of the epiglottis Lymphovascular Invasion: ?? yes (C17) Perineural Invasion: ?? Not identified Margins: ?? Uninvolved by invasive tumor Distance from Closest Margin in Millimeters: ?? At least: ?? 6 Millimeters (mm) Location of Closest Margin, per Orientation: ?? left superior mucosa Number Involved: ?? 0 Number of Lymph Nodes Examined: ?? 1 PATHOLOGIC STAGE CLASSIFICATION (pTNM, AJCC 8th Edition) ? TNM Descriptors: ?? y (post-treatment) Primary Tumor (pT): ?? pT3: Tumor limited to larynx *with vocal cord fixation* and / or invades any of the following: postcricoid area, preepiglottic space, paraglottic space, and / or inner cortex of thyroid cartilage Regional Lymph Nodes (pN): ?? pN0: No regional lymph node metastasis Blocks with tumor: C3, C7, C11-12 Blocks without tumor: C4-5 CLINICAL HISTORY Preoperative diagnosis: Larynx cancer. Intraoperative findings: Larynx cancer. Operative procedure: Total laryngectomy, neck dissection, reconstruction of defect with left forearm flap versus anterior lateral thigh and possible skin graft. 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 Unfortunately he developed recurrentdisease in the vallecula.... AMENDMENTS Amended: ??04/08/2018 by Tori Galicia Reason: ? Other reason, refer to comment/note ? This amendment is issued to correct template for lymphvascular invasion, changing not identified to there is lymphvascular invasion. Previous Signout Date: ??03/30/2018 INTRAOPERATIVE CONSULT DIAGNOSIS FSA, LEFT PHARYNX MARGIN: NO TUMOR SEEN. JN/PRJ FSB, BASE OF TONGUE MARGIN: NO TUMOR SEEN. JN/PRJ ? Yaw Bradley M.D. DESCRIPTION OF SPECIMEN: A: ??Left pharynx B: ??Lest base of tongue C: ??extended laryngectomy D: ??right level 2 GROSS DESCRIPTION A: The specimen is received fresh for frozen section diagnosis labeled left pharynx and received is a 1.8 x 0.4 x 0.4 cm strip of red-pink mucosa that was entirely frozen. The frozen section remnant is submitted in cassette A1. B: Specimen is received fresh for frozen section diagnosis labeled left base of tongue margin. Received is a 1.5 x 0.3 x 0.3 cm strip of red-pink mucosa that was entirely frozen. The entirety of the frozen section remnant is submitted in cassette B1. C: Specimens received fresh and placed in formalin labeled extended laryngectomy and received is a 9 x 7 x 5.6 cm total laryngectomy specimen. At the inferior aspect of the specimen there is a 1 x 0.9 cm tracheostomy site. The soft tissue is inked black, the soft tissue underlying the hyoid bone is inked green, and the mucosal resection margins are inked orange. The form sinuses are inked blue. There is no thyroid present. The hyaloid bone appears grossly unremarkable and uninvolved peritumoral process. The larynx is remarkable for a 1.5 x 1.4 x 1.0 cm ulcerated mass left aspect of the preepiglottic space and involving the pharyngeal surface of the epiglottis. The mass appears grossly to invade the soft tissue of the preepiglottic space and superficially invade the epiglottic cartilage. The tumor is 0.6 cm from the nearest mucosal margin, at least 9.2 cm from the tracheal margin, and at least 0.7 cm from the nearest soft tissue margin. The remainder of the specimen including the ostomy site appear grossly unremarkable. Slip Cover Seamstress sections are submitted as follows: C1: Inferior tracheal margin, submitted for decal C2: Mucosal margins nearest to tumor Full-thickness longitudinal section of larynx with tumor, submitted as follows: C3: Superiormost portion with tumor in preepiglottic space and epiglottic cartilage, submitted for decal C4: Thyroid cartilage with glottis, submitted for decal C5: Cricoid cartilage and surrounding tissue, submitted for decal C6: Tracheal cartilage and surrounding tissue, submitted for decal Additional full-thickness longitudinal section of larynx with tumor, submitted as follows: C7: Superiormost portion with tumor in preepiglottic space and epiglottic cartilage, submitted for decal C8: Thyroid cartilage with glottis, submitted for decal C9: Thyroid cartilage and tracheostomy site, submitted for decal C10: Tracheal cartilage and tracheostomy site, submitted for decal C11-C13: Additional sections of tumor serially sectioned with epiglottis, submitted for decal C14: Right arytenoid cartilage, submitted for decal C15: Left arytenoid cartilage, submitted for decal C16: Slip Cover Seamstress section of hyoid bone nearest tumor, submitted for decal C17: Remainder of tumor serially sectioned C18: Right pyriform sinus and hypopharyngeal mucosal margins C19: Left pyriform sinus and hypopharyngeal mucosal margins C20: Periepiglottic mucosal margins D: Specimen is received in formalin labeled right level 2 and received is a 2.5 x 1.1 x 1.0 cm aggregate of fibroadipose tissue containing one candidate lymph node measuring 1.0 cm in greatest dimension. This lymph node is bisected and entirely submitted in cassette D1 along with the attached adipose tissue. Shirlene Deleon MD (Fellow) A resident may have participated in this service. ??A pathologist has performed and is responsible for the reported pathologic evaluation. ICD: C32.8 ? Malignant neoplasm of overlapping sites of larynx SNOMED CODES: A; Q26894 T6000 B; O60262 T5313 C; A36063 P1100 D; G42888 P1100 F: A; 14266 A,B; 83348 FS1(2) B; 66752 C; 82263, S 16736 DECAL D; 62043 Lubna Correia MD LAB PATHOLOGY ORDERABLES F inal Result Performing Organization Address [facility] de Phone Number SUNQUEST * APTT (03/22/2018 6:24 AM EDT) aPTT 32 25 - 36 sec [facility]QUEST 03/22/2018 6:24 AM EDT 03/22/2018 6:32 AM EDT Tracy Leslie MD LAB BLOOD ORDERABLES Final Res ult Performing Organization Address [facility] de Phone Number SUNQUEST * (ABNORMAL) Prothrombin Time/INR (03/22/2018 6:24 AM EDT) Prothrombin Time 14.4 12.3 - 14.8 sec [facility]QUEST INR 1.2(H) 0.9 - 1.1 [facility]QUEST Comment: (NOTE) OPTIMAL INR RANGES FOR PATIENT ON ORAL ANTICOAGULANT THERAPY Prevention of venous thromboembolism ?INR 2.0 to 3.0 In patients with heart disease: ?Atrial fibrillation ?INR 2.0 to 3.0 ?Valvular heart disease ? INR 2.0 to 3.0 ?Tissue heart valves ?INR 2.0 to 3.0 ?Mechanical prosthetic valves ? INR 2.5 to 3.5 ?Prevention of recurrent GA ? INR 2.5 to 3.5 03/22/2018 6:24 AM EDT 03/22/2018 6:32 AM EDT us Tracy Leslie MD LAB BLOOD ORDERABLES Final Res ult [facility] * Echo, Adult TTE (03/21/2018 1:28 PM EDT) Anatomical Region Laterality Modality Ultrasound 03/21/2018 11:0 8 AM EDT Narrative 03/21/2018 1:28 PM EDT ?Study ID: [id number] ? Name: ANIBAL HEATH ?: 1965 (M/d/yyyy) ? + + + + ?: ? : : ? : ?[facility] ? : ? : : ? : ?[place] ?: ? : : ? : ? [address] ?: ? : + + ? [place] [id number] ?+ + + ----- -+ :Name: ANIBAL HEATH ?Study Date: 03/21/2018 11:08 AM ?BP: 163/91 mmHg: : ? Patient Location: A11A^116^A ? HR: 50 ? : :: 1965 (M/d/yyyy) ? Gender: Male ? Height: 70 in ??: :Age: 52 yrs ?Ethnicity: ? Weight: 253 lb : :Reason For Study: WPW ? BSA: 2.3 m2 ?: :History: Throat CA, HTN, Former smoker, Family hx of CAD ? : :Ordering Physician: Mariama SALVADOR, ?: :Tracy ? : :Referring Physician: Masood ?: :Performed By: Denisa Wharton, ? : :RDCS ? : : ? : + ----- -+ . Interpretation Summary A complete two-dimensional transthoracic echocardiogram was performed (2D, M- mode, Doppler and color flow Doppler). The study was technically adequate. There is no comparison study available. The LV global longitudinal strain, based upon 2D speckle-tracking, is probably normal (>-16.5%). The right ventricular systolic function is normal. The ascending aorta is 4.1 cm in diameter, at the maximal area visualized. Moderate (40-49mm) aortic root dilatation. There is no pericardial effusion. . MMode/2D Measurements & Calculations IVSd: 1.1 cm ?LVIDd: 4.3 cm ? ESV(Teich): 35.9 ml ?LVIDs: 3.0 cm ?LVPWd: 1.1 cm ? LV mass(C)d: 157.0 grams ?Ao root diam: 3.6 cm ?LVAd sax PM: 33.9 cm2 ?LA dimension: 3.9 cm . Doppler Measurements & Calculations MV E max danelle: 93.3 cm/sec ? PA acc time: 0.17 sec ?TR max danelle: 108.3 cm/sec MV A max danelle: 58.7 cm/sec ?TR max P.7 mmHg MV E/A: 1.6 ?RVSP(TR): 14.7 mmHg ? RAP systole: 10.0 mmHg ?PA pr(Accel): 3.7 mmHg . Left Ventricle The left ventricle is normal in size. There is no thrombus. There is normal left ventricular wall thickness. Left ventricular systolic function is normal, with estimated EF > 55%. The LV global longitudinal strain, based upon 2D speckle-tracking, is probably normal (>-16.5%). The left ventricular wall motion is normal. . Right Ventricle The right ventricle is normal size. There is normal right ventricular wall thickness. The right ventricular systolic function is normal. . Atria The left atrial size is normal. Right atrial size is normal. The interatrial septum is intact with no evidence for an atrial septal defect. . Mitral Valve The mitral valve is normal in appearance. There is no evidence of mitral valve prolapse. There is no mitral valve stenosis. There is trace mitral regurgitation. . Tricuspid Valve The tricuspid valve is normal. There is no tricuspid valve prolapse. There is no tricuspid valve vegetation. There is no tricuspid stenosis. There is trace tricuspid regurgitation. Right ventricular systolic pressure is normal. . Aortic Valve The aortic valve annulus is mildly calcified. There is no aortic valvular vegetation. No hemodynamically significant valvular aortic stenosis. No aortic regurgitation is present. . Pulmonic Valve The pulmonic valve leaflets are thin and pliable; valve motion is normal. There is no pulmonic valvular stenosis. There is no pulmonic valvular regurgitation. . Great Vessels Moderate (40-49mm) aortic root dilatation. The aorta at the Sinuses of Valsalva (leading edge to leading edge method) is 3.5 cm in diameter. The aortic root at the sinotubular junction is 3.8 cm in diameter. The ascending aorta is 4.1 cm in diameter, at the maximal area visualized. The pulmonary artery is normal size. . Pericardium/Pleural There is no pericardial effusion. There is no pleural effusion. ?+---------+ ?: ? : ?: ? : ?: ? : ?+---------+ ?+--+ ?+--+ Reported by: Megan Patel 03/21/2018 01:28 PM Procedure Note Megan Patel - 09/27/2020 Study ID: [id number] Name: ANIBAL HEATH :1965 (Sae/jasmyne/yyyy) + + + + :: : : [facility] : : [place] :: : : [address] :: + + [place] [id number]+ + + ----- -+ :Name: ANIBAL HEATH Study Date: 03/21/2018 11:08 AM BP:163/91 mmHg: : Patient Location: [facility]^116^A HR:50 : :: 1965 (M/d/yyyy) Gender: MaleHeight: 70 in : :Age: 52 yrs Ethnicity: CAUCASIANWeight: 253 lb : :Reason For Study: WPWBSA: 2.3 m2 : :History: Throat CA, HTN, Former smoker, Family hx of CAD: :Ordering Physician: Mariama SALVADOR,: :Tracy: :Referring Physician: Masood: :Performed By: Denisa Wharton,: :RDCS: :: + ----- -+ . Interpretation Summary A complete two-dimensional transthoracic echocardiogram was performed (2D,M- mode, Doppler and color flow Doppler). The study was technically adequate. Thereis no comparison study available. The LV global longitudinal strain, based upon 2D speckle-tracking, isprobably normal (>-16.5%). The right ventricular systolic function is normal. The ascending aorta is 4.1 cm in diameter, at the maximal areavisualized. Moderate (40-49mm) aortic root dilatation. There is no pericardial effusion. . MMode/2D Measurements & Calculations IVSd: 1.1 cm LVIDd: 4.3 cm ESV(Teich): 35.9ml LVIDs: 3.0 cm LVPWd: 1.1 cm LV mass(C)d: 157.0 grams Ao root diam: 3.6 cm LVAd sax PM:33.9 cm2 LA dimension: 3.9 cm . Doppler Measurements & Calculations MV E max danelle: 93.3 cm/sec PA acc time: 0.17 sec TR max danelle: 108.3cm/sec MV A max danelle: 58.7 cm/sec TR max P.7mmHg MV E/A: 1.6 RVSP(TR): 14.7mmHg RAP systole: 10.0 mmHg PA pr(Accel): 3.7 mmHg . Left Ventricle The left ventricle is normal in size. There is no thrombus. There isnormal left ventricular wall thickness. Left ventricular systolic function is normal,with estimated EF > 55%. The LV global longitudinal strain, based upon 2Dspeckle- tracking, is probably normal (>-16.5%). The left ventricular wall motion isnormal. . Right Ventricle The right ventricle is normal size. There is normal right ventricular wallthickness. The right ventricular systolic function is normal. . Atria The left atrial size is normal. Right atrial size is normal. Theinteratrial septum is intact with no evidence for an atrial septal defect. . Mitral Valve The mitral valve is normal in appearance. There is no evidence of mitralvalve prolapse. There is no mitral valve stenosis. There is trace mitralregurgitation. . Tricuspid Valve The tricuspid valve is normal. There is no tricuspid valve prolapse. Thereis no tricuspid valve vegetation. There is no tricuspid stenosis. There is tracetricuspid regurgitation. Right ventricular systolic pressure is normal. . Aortic Valve The aortic valve annulus is mildly calcified. There is no aortic valvularvegetation. No hemodynamically significant valvular aortic stenosis. No aorticregurgitation is present. . Pulmonic Valve The pulmonic valve leaflets are thin and pliable; valve motion is normal.There is no pulmonic valvular stenosis. There is no pulmonic valvular regurgitation. . Great Vessels Moderate (40-49mm) aortic root dilatation. The aorta at the Sinuses ofValsalva (leading edge to leading edge method) is 3.5 cm in diameter. The aorticroot at the sinotubular junction is 3.8 cm in diameter. The ascending aorta is 4.1 cmin diameter, at the maximal area visualized. The pulmonary artery is normal size. . Pericardium/Pleural There is no pericardial effusion. There is no pleural effusion. +---------+ : : : : : : +---------+ +--+ +--+ Reported by: Megan Patel 03/21/2018 01:28 PM Tracy Leslie MD CV ECHO PROCEDURES Final Resul t * (ABNORMAL) CBC W/O Differential (03/21/2018 10:41 AM EDT) WBC Count 6.4 3.7 - 10.3 k/uL [facility] RBC Count 5.22 4.6 - 6.1 M/uL [facility] HGB 14.4 13.7 - 17.5 g/dL [facility] HCT 44.3 40 - 51 % [facility] Platelet Count 208 155 - 369 k/uL [facility] MCV 85 79 - 98 fL [facility] MCH 27.6 26 - 32 pg [facility] MCHC 32.5 30.7 - 35.5 g/dL [facility] RDW 14.9(H) 12.4 - 14.9 % [facility] MPV 11.3 8.8 - 12.5 fL [facility] NRBC COUNT 0 0 % [facility] 03/21/2018 10:4 1 AM EDT 03/21/2018 11:02 AM EDT Result Shamika Correia MD LAB BLOOD ORDERABLES Final Result Performing Organization Address City/[facility] Co de Phone Number [facility] * (ABNORMAL) Thyroid Stimulating Hormone, Plasma (03/21/2018 10:41 AM EDT) Thyroid Stimulating Hormone, Plasma 8.30(H) 0.4 - 4.2 uIU/mL [facility] 03/21/2018 10:4 1 AM EDT 03/21/2018 10:53 AM EDT us Lubna Correia MD LAB BLOOD ORDERABLES Final Result Performing Organization Address [facility] de Phone Number [facility] * (ABNORMAL) Prealbumin, Plasma (03/21/2018 10:41 AM EDT) Prealbumin, Plasma 17.9(L) 20 - 41 mg/dL [facility] 03/21/2018 10:4 1 AM EDT 03/21/2018 10:53 AM EDT Result Shamika Correia MD LAB BLOOD ORDERABLES Final Result Performing Organization Address City/[facility] Co de Phone Number [facility] * Free T4, Plasma (03/21/2018 10:41 AM EDT) Free T4, Plasma 1.0 0.8 - 1.7 ng/dL [facility] 03/21/2018 10:4 1 AM EDT 03/21/2018 10:53 AM EDT Result Shamika Correia MD LAB BLOOD ORDERABLES Final Result Performing Organization Address City/[facility] Co de Phone Number [facility] * Comprehensive Metabolic Panel, Plasma (03/21/2018 10:41 AM EDT) Glucose, Plasma 98 74 - 99 mg/dL [facility] BUN, Plasma 13 7 - 21 mg/dL [facility] Creatinine, Plasma 0.88 0.80 - 1.30 mg/dL [facility] BUN/Creatinine Ratio 15 8 - 20 [facility] Sodium, Plasma 142 136 - 145 mmol/L [facility] Potassium, Plasma 4.0 3.7 - 4.8 mmol/L [facility] Chloride, Plasma 105 101 - 108 mmol/L [facility] CO2, Plasma 26 22 - 29 mmol/L [facility] Anion Gap 11 6 - 16 mmol/L [facility] Calcium, Plasma 9.8 8.9 - 10.2 mg/dL [facility] AST, Plasma 12 12 - 40 U/L [facility] ALT, Plasma 13 11 - 41 U/L [facility] Alkaline Phosphatase, Plasma 79 40 - 115 U/L [facility] Total Bilirubin, Plasma 0.6 0.2 - 1.1 mg/dL [facility] Total Protein 7.7 6.3 - 7.9 g/dL [facility] Albumin, Plasma 3.7 3.3 - 4.6 g/dL [facility] eGFR >60 >60 SEE NOTE [facility] [...] rapidly changing or patient is on dialysis. 03/21/2018 10:4 1 AM EDT 03/21/2018 10:53 AM EDT us Lubna oCrreia MD LAB BLOOD ORDERABLES Final Result [facility] * ECG ADULT (03/21/2018) Narrative 03/21/2018 Ordered by an unspecified provider. 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
[2024-05-03] MEDS: SODIUM CHLORIDE 0.9% 10ML FLUSH SYRINGE 10 ML IV (14:38)
== END 2024-05-03 13:43 | disposition home or self-care (01) ==
LOC: INF 13:32
PROVIDERS: Visit Provider Internal Medicine
DX: Z45.2 Encounter for adjustment and management of vascular access device (principal)
CPT/HCPCS: 96523; J1642

== ENCOUNTER 2024-06-07 13:39 | Outpatient (CLI) | payer OTHER, SELFPAY | END 2024-06-07 13:56 | disposition home or self-care (01) | LOC: INF 13:42 | PROVIDERS: Visit Provider Internal Medicine | DX: Z45.9 Encounter for adjustment and management of unspecified implanted device (principal) | CPT/HCPCS: 96523; J1642 ==

== ENCOUNTER 2024-08-16 14:25 | Outpatient (CLI) | payer OTHER, SELFPAY ==
[2024-08-16] MEDS: SODIUM CHLORIDE 0.9% 10ML FLUSH SYRINGE 10 ML IV (14:28)
== END 2024-08-16 14:38 | disposition home or self-care (01) ==
LOC: INF 14:25
PROVIDERS: Visit Provider Internal Medicine
DX: Z45.2 Encounter for adjustment and management of vascular access device (principal)
CPT/HCPCS: 96523; J1642

== ENCOUNTER 2024-09-20 13:34 | Outpatient (CLI) | payer OTHER, SELFPAY ==
[2024-09-20] MEDS: SODIUM CHLORIDE 0.9% 10ML FLUSH SYRINGE 10 ML IV (13:59)
== END 2024-09-20 13:58 | disposition home or self-care (01) ==
LOC: INF 13:34
PROVIDERS: Visit Provider Internal Medicine
DX: Z45.2 Encounter for adjustment and management of vascular access device (principal)
CPT/HCPCS: 96523; J1642

== ENCOUNTER 2024-10-18 13:39 | Outpatient (CLI) | payer OTHER, SELFPAY ==
[2024-10-18] MEDS: SODIUM CHLORIDE 0.9% 10ML FLUSH SYRINGE 10 ML IV (13:45)
== END 2024-10-18 13:53 | disposition home or self-care (01) ==
LOC: INF 13:41
PROVIDERS: PCP Nurse Practitioner Family; Visit Provider Internal Medicine
DX: Z45.9 Encounter for adjustment and management of unspecified implanted device (principal)
CPT/HCPCS: 96523; J1642

== ENCOUNTER 2024-11-15 13:57 | Outpatient (CLI) | payer OTHER, SELFPAY ==
--- OUTSIDE RECORDS SUMMARY | 2024-09-25 15:45 | XMS_ITS | Encounter Summary ---
Author Organization Healthcare Address [address] [place] [address] Care Team Providers Care Food Checkers And Cashiers Supervisor Name Role Phone Shun Hurst MD Unavailable [phone] Divine Carpenter MD Unavailable [phone] Ambika Cain-AREA MECHANIC Unavailable Unavailab Monique Flannery RN Unavailable Unavailable Kizzy Gaspar MD Primary Care Provider [phone] Encounter Details Date Type Department Care Team (Late st Contact Info) Description 09/25/2024 3:45 PM EDT Pre-Admission Testing [facility] [address], [address] [place] [address] Anesthesia Record Procedure Summary Procedure Name Responsible Anesthesiologist Anesthesia Start Time Anesthesia Stop Time FLEXIBLE ESOPHAGOSCOPY WITH BALLOON DILATION Blank Lemon MD 09/29/24 0929 09/29/24 1021 Events Date Time Event Comment 09/29/2024 0827 0929 An Start The patient was reevaluated immediately before sedation and remains eligible for anesthesia plan. 0929 In Room 0932 An Start Data 0938 An Induction The patient was reevaluated immediately before moderate or deep sedation use and before anesthesia induction. 0939 An Intubation 0941 Anesthesia Ready 0942 Proc Start 1007 Proc Fin 1009 An Extubation 1011 an stop data 1012 Out of Room 1021 Handoff to Receiving I compl eted my handoff to the receiving clinician during which we: 1. Identified the patient 2. Identified the responsible provider 3. Reviewed the pertinent medical history 4. Discussed the surgical course 5. Reviewed intra-op anesthesia management and issues during anesthesia 6. Set expectations for post-procedure period 7. Allowed opportunity for questions and acknowledgement of understanding. 1021 An Stop Meds * Agents No agents on file. * Blood No blood administrations on file. Lines, Drains, and Airways Type Details Placement Removal Wound 09/29/24; N; Yes; Surgical; Throat 09/29/24 0000 by Oma Camacho RN Single Lumen Implantable Port 03/06/21; 1229; Yes; 03/06/21; Other (Comment); Yes; Yes; Left; Chest; Kwabena Waits; 09/29/24; 1128 03/06/21 1229 by Radha Norwood RN 09/29/24 1128 by Toña Burgos RN Wound 07/24/21; Throat; 10/29/24 (Removed automatically on 10/29/2024 because of a prolonged period with no assessments.); 2247; No Documenta 07/24/21 0000 by Oma Lyons RN 10/29/24 2247 by Ip, Background User Wound 02/19/22; 1014; Yes; Other; Throat (flexible esophagoscopy); 10/29/24 (Removed automatically on 10/29/2024 because of a prolonged period with no assessments.); 2247; No Documenta 02/19/22 1014 by Guillermina Sanchez RN 10/29/24 2247 by Ip, Background User Wound 07/30/23; N; Yes; Incision; Throat; 10/29/24 (Removed automatically on 10/30/2024 because of a prolonged period with no assessments.); 2247; No Documenta 07/30/23 0000 by Dalila Srinivasan RN 10/29/24 2247 by Ip, Background User Peripheral IV Placement Date: 09/29/24; Placement Time: 0840; Catheter Size: 20 G; Orientation: Left, Posterior; Location: Hand; Site Prep: Chlorhexidine ; Local Anesth: None; Technique: Anatomical landmarks; Insertion Attempts: 1; Patient Tolerance: Tolerated well; Removal Date: 09/29/24; Removal Time: 1120; Removal Reason: Discharge 09/29/24 0840 by January Jeffries RN 09/29/24 1120 by Toña Burgos RN ETT Placement Date: 09/29/24; Placement Time: 0939 (created via procedure documentation); Mask Ventilation: 0; Technique: Blind; Type: ETT - single; Single Lumen Tube Size: 6 mm; Cuffed: Yes; Laryngoscope: La; Location: Tracheostomy; Insertion Attempts: 1; Placement Verification: Auscultation, Capnometry; Airway Comments: Atraumatic. No change to dentition. ; Placed by: DIANE; Removal Date: 09/29/24; Removal Time: 1009 09/29/24 0939 by Shaun Tapia CRNA, DNP 09/29/24 1009 by Shaun Tapia CRNA, DNP documented in this encounter Social History Tobacco [...] as of this encounter Miscellaneous Notes * PAT Evaluation Note - Berta Batres PA - 09/25/2024 3:45 PM EDT HPI Anibal Barreto is a 59 y.o. 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 Last dilation 01/2022 with good effect. Last received chemo 2021. Medical History[1] Family History[2] Social History[3] SURGICAL HISTORY: Surgical History[4] Allergies[5] MEDICATIONS: Current Outpatient Medications: ALPRAZolam, Take 1 tablet (1 mg) by mouth 2 (two) times a day. amLODIPine, TAKE 1 TABLET BY MOUTH EVERY DAY atorvastatin, TAKE 1 TABLET BY MOUTH EVERY DAY gabapentin, Take 1 tablet (600 mg) by mouth 4 (four) times a day. levothyroxine, Take 1 tablet (125 mcg) by mouth daily. omeprazole, Take 1 capsule (40 mg) by mouth 1 (one) time each day. Do not crush or chew. ondansetron, Take 1 tablet (8 mg) by mouth 2 (two) times a day. Starting day after chemo for 3 days. (Patient taking differently: Take 1 tablet by mouth as needed. Starting day after chemo for 3 days.) oxyCODONE, Take 1 tablet by mouth every 3 (three) hours as needed for severe pain. tamsulosin, Take 1 capsule (0.4 mg) by mouth every night. fluconazole, lisinopril-hydroCHLOROthiazide, TAKE 1 TABLET BY MOUTH EVERY DAY (Patient not taking: Reported on 09/25/2024) naloxone, 1. Give 1 spray in nostril for no/slow breathing or cannot wake after opioid use 2. Call 911 3. Repeat in other nostril if symptoms continue (Patient taking differently: 1. Give 1 spray in nostril for no/slow breathing or cannot wake after opioid use 2. Call 911 3. Repeat in other nostrilif symptoms continue On hand, not taking) ROS Anesthesia: Date of last anesthetic: Most recent anesthesia ~ 07/30/2023 [facility] EGD: Difficult Airway: No Final Airway Type: endotracheal airway Mask Difficulty Assessment: 0 - not attempted Final Endotracheal Airway: ETT, MULE OPERATOR Cuffed: Yes Cormack-Lehane Classification: grade I - full view of glottis Technique Used For Successful Placement: direct laryngoscopy Insertion Site: tracheostomy (jessica tube) Blade Type: La Blade Size: 3 ETT Size (mm): 5.0 Number of Attempts at Approach: 1 Number of Other Approaches Attempted: 0 history of previous anesthesia and history of prolonged emergence. Does not have a history of anesthetic complications, a history awareness of surgery under anesthesia, malignant hyperthermia, obstructive sleep apnea and PONV. Cardiovascular: hyperlipidemia. Does not have angina, CAD, CHF, dysrhythmias, orthopnea, pacemaker or past TX. hypertension: is well controlled. Exercise tolerance is 1 flight of stairs. Does not have chest pain. Cardio additional comments: Denies any active current cardiac complaints. 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 + JOEL Carotid artery stenosis <50%. Respiratory: no asthma: no COPD: Has not had an upper respiratory infection in last 30 days. Has not had pneumonia in the last 30 days or COVID in the last 30 days. Respiratory ROS additional comments: + Right upper lobe pulmonary resection 2019 HEENT: difficulty swallowing and missing teeth (+ edentulous).temporomandibular joint syndrome. hearing loss. 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 Neurological: no seizures: Did not have a cerebrovascular accident.Does not have TIA. Musculoskeletal: arthritis. cervical spine limited mobility. Musc/Skel/Integ additional comments: + Chronic pain disorder (neck/face post- radiation) -- takes oxy 30mg 3-4x daily + right hand paraesthesias and right forearm numbness. Gastrointestinal: GERD: well controlled.swallowing disorder. Does not have cirrhosis or hepatitis. malnourished. Genitourinary: BPH. Does not have renal calculi or renal disease. Hematological/Lymphatic: History of DVT (2018 when diagnosed and treated for laryngeal CA). Did not receive anticoagulation therapy. History of no pulmonary embolism. Not in a hypercoagulable state. history of chemotherapy with cardiopulmonary complications. history of radiation with cardiopulmonary complications. Does not have MRSA or tuberculosis. Endocrine/Metabolic: does not have diabetes mellitus. thyroid disorder (Hypothyroidism). 06/12/2021: 03/21/2018 [facility] CARDS: A complete two-dimensional transthoracic echocardiogram was performed (2D, M-mode, Doppler and color flow Doppler). The study was technically adequate. There is no comparison study available. The left ventricle is normal in size. There is no thrombus. There is normal left ventricular wall thickness. Left ventricular systolic function is normal, with estimated EF > 55%. The LV global longitudinal strain, based upon 2D speckle-tracking, is probably normal (>-16.5%). The left ventricular wall motion is normal. The LV global longitudinal strain, based upon 2D speckle-tracking, is probably normal (>-16.5%). The right ventricular systolic function is normal. The ascending aorta is 4.1 cm in diameter, at the maximal area visualized. Moderate (40-49mm) aortic root dilatation. There is no pericardial effusion. 04/07/2023 Carotid duplex scan: Right: Carotid plaque is demonstrated. Flow is present in the CCA, ICA, and ECA. Borderline study. ICA velocities are within normal limits, however, the ICA/CCA ratio is elevated with some turbulencenoted. Probably less than 50% stenosis. Left: No significant carotid plaque is demonstrated. Flow is present in the CCA, ICA, and ECA. ICA velocities do not demonstrate evidence of a hemodynamically significant stenosis (less than 50%). Lab Results Component Value Date WBC 5.10 07/17/2024 HGB 14.5 07/17/2024 HCT 44.2 07/17/2024 MCV 87 07/17/2024 PLT 127 (L) 07/17/2024 Lab Results Component Value Date GLUCOSE 111 (H) 07/17/2024 BUN 8 07/17/2024 CREATININE 0.79 07/17/2024 BCR 10 07/17/2024 NA 141 07/17/2024 K 3.9 07/17/2024 CL 103 07/17/2024 CO2 28 07/17/2024 CA 9.3 10/14/2020 ALBUMIN 4.0 07/17/2024 ALKPHOS 98 07/17/2024 BILITOT 0.7 07/17/2024 No results found for: HGBA1C Lab Results Component Value Date INR 1.0 06/12/2021 INR 1.0 03/06/2021 INR 1.2 (H) 03/22/2018 Visit Vitals Smoking Status Former Physical Exam Anesthesia Plan ASA 3 Anesthesia technique(s) discussed with the patient/family: general Comment: MOHINI phone screen. Discussed with Dr. Marin. No evidence of WPW on EKG from 2021. Patient has never been evaluated by cardiology in past. No symptoms. ROSENDA Salcido [1] Past Medical History: Diagnosis Date Chronic pain [...] left ear Unspecified osteoarthritis, unspecified site Arthritis Wcynt-Itszpsmvj-Ueuum pattern Asymptomatic, does not see cardiology [2] Family History Problem Relation Name Age of Onset Stroke Father Kidney failure Father FH: kidney failure Liver cancer Mother FH: liver cancer Breast cancer Sister Uterine cancer Sister Heart attack Sister Uterine cancer Sister FH: uterine cancer Anesthesia problems Neg Hx Malig Hyperthermia Neg Hx [3] Social History Tobacco Use Smoking status: Former Current packs/day: 0.00 Average packs/day: 2.0 packs/day for 10.0 years (20.0 ttl pk-yrs) Types: Cigarettes Start date: 1990 Quit date: 2000 Years since quittin.3 Smokeless tobacco: Never Vaping Use Vaping status: Never Used Substance Use Topics Alcohol use: Not Currently Comment: Alcoholic Drinks/day: Quit consuming alcohol in remote past Drug use: Not Currently [4] Past Surgical History: Procedure Laterality Date ESOPHAGEAL DILATION x2 ESOPHAGOGASTRODUODENOSCOPY N/A Esophagogastroduodenoscopy from [employer] FEEDING TUBE PLACEMENT N/A Now removed LARYNGOSCOPY N/A Laryngoscopy from [facility] LARYNGOSCOPY 02/19/2022 LUNG SURGERY OTHER SURGICAL HISTORY N/A Neck dissection modified radical from [employer] OTHER SURGICAL HISTORY N/A Percutaneous endoscopic gastrostomy tube removal from [employer] OTHER SURGICAL HISTORY N/A Laryngectomy from [employer] OTHER SURGICAL HISTORY N/A Trachectomy from [employer] PARTIAL LARYNGECTOMY TRACHEOSTOMY TUBE PLACEMENT [5] Allergies Allergen Reactions Cetuximab Anaphylaxis SOA, hypotension, after 9 ml of drug Docetaxel Rash, Shortness of breath and Unknown - Patient states they do not know rxn details Patient very dyspnic, flushed, severe back pain. Patient very dyspnic, flushed, severe back pain. Patient very dyspnic, flushed, severe back pain. Methadone Rash and Other - please document in the comment field * Preprocedure Instructions - Berta Batres PA - 09/25/2024 3:45 PM EDT Home Medication Instructions Current Medications Medication Instructions ALPRAZolam (Xanax) 1 MG tablet Take morning of surgery amLODIPine (Norvasc) 2.5 MG tablet Take morning of surgery atorvastatin (Lipitor) 20 MG tablet Take morning of surgery gabapentin (Neurontin) 600 MG tablet Take morning of surgery levothyroxine (Synthroid, Levoxyl) 125 MCG tablet Take morning of surgery omeprazole (PriLOSEC) [address] capsule Take night before surgery ondansetron (Zofran) 8 MG tablet Take as needed oxyCODONE (Roxicodone) 30 MG immediate release tablet Take as needed tamsulosin (Flomax) 0.4 MG 24 hr capsule Take night before surgery General Preoperative Instructions You will be called the business day before surgery with your arrival time No food after midnight the night before surgery. You can drink clear liquids up to 2 hours prior to arrival unless instructed by your surgeon otherwise. Please do not try to get all your hydration in 2 hours prior to arrival. Start the day before surgery drinking more than you usually would. After midnight, you can have clear liquids only (water,apple juice, Gatorade) up to 2 hours prior to arrival. No coffee or tea. No alcohol or smoking prior to surgery Arrive on time to avoid delays Parking/Registration procedure explained You MUST have a responsible adult available for transport to and from hospital Visitation policy for the day of surgery reviewed Bring insurance card, photo ID, along with power of customs entry clerk, guardianship or advanced directives if applicable Do not bring money, jewelry or other valuables Hibiclens bathing instructions reviewed if applicable Notify surgeon of fever, illness, any changes or if you decide not to have surgery documented in this encounter Plan of Treatment Upcoming Encounters Date Type Department Care Team (Late st Contact Info) Description 12/06/2024 1:40 PM EDT Procedure Visit [facility] [address] [facility] [place] [address] Bang Valle, DO [address] [place] [address] 12/11/2024 10:40 AM EDT Office Visit [facility] [address] [place] [address] Porfirio Viveros MD [address] [phone] 01/15/2025 1:30 PM EDT Clinical Support [facility] [address] [facility] [place] [phone] 01/15/2025 3:00 PM EDT Appointment [facility] [address] [place] [phone] 01/18/2025 3:10 PM EDT Office Visit [facility] [address] [facility] [place] [phone] Divine Carpenter MD [address] [facility] [address] [place] [address] documented as of this encounter Visit Diagnoses Not on filedocumented in this encounter Additional Health Concerns Assessment Noted Time A fall risk assessment has been complete d for the patient 08/28/2024 2:26 PM EDT A Body Mass Index follow-up plan has been documented for the patient 09/17/2024 4:12 PM EDT documented as of this encounter Care Teams Food Checkers And Cashiers Supervisor Relationship Specialty Start Date End Date Kizzy Gaspar MD [address] [place] [id number] PCP - General 09/22/24 Shun Hurst MD [address] [facility] [address] [place] [phone] Surgeon Neurosurgery 02/24/21 Divine Carpenter MD [address] [facility] [address] [place] [phone] Medical Oncologist Medical Oncology 06/13/21 Ambika Cain CF-AREA MECHANIC Speech Language Pathologist Speech Pathology 10/06/23 Monique Jain, RN Registered Nurse Hematology and Oncology 08/31/24 documented as of this encounter
--- OUTSIDE RECORDS SUMMARY | 2024-09-29 07:33 | XMS_ITS | Encounter Summary ---
Author Organization Healthcare Address [address] [id number] Care Team Providers Care Grain Elevator Worker Name Role Phone Shun Hurst MD Unavailable [phone] Divine Carpenter MD Unavailable [phone] Ambika Cain CF-ROASTERMAN Unavailable Unavailab Monique Flannery RN Unavailable Unavailable Kizzy Gaspar MD Primary Care Provider Reason for Visit * Auth/Cert (Routine) Specialty Diagnoses / Procedures Referred By Contac t Referred To Contact Diagnoses Esophageal stenosis Esophageal stenosis Procedures SC LARYNGOSCOPY,DIRCT,OP SCOP,EXC TUMR SC LARYNGOSCOPY,DIRECT,SCOPE,INJ CORDS SC ESOPHAGOSCOPY FLEXIBLE TRANSORAL DIAGNOSTIC SC ESOPHAGOSCOPY FLEX BALLOON DILAT <30 MM DIAM SC ESOPHAGOSCOPY DILATE ESOPHAGUS BALLOON 30 MM SC DEXAMETHASONE SODIUM PHOS SC INJECTION,ONABOTULINUMTOXINA FLEXIBLE ESOPHAGOSCOPY WITH BALLOON DILATION INJECTION OF STEROIDS SUPER DILATION CO2 LASER LYSIS OF SCAR BAND, BOTOX TO ANY SPHINCTER MUSCLE, DECADRON 10mg/ml, 1cc TO ESOPHGEAL ENTRANCE/SCAR Gil Hernandez MD [address] [facility] [address] [place] [address] Phone: tel: fax: [facility] [address] [place] [address] Phone: tel: Referral ID Status Reason Start Date Expiration Date Visits Re quested Visits Authorized [id number] 1 1 Encounter Details Date Type Department Care Team (Latest Contact Info) Description 09/29/2024 7:33 AM EDT - 09/29/2024 11:35 AM EDT Hospital Encounter [facility] [address] [place] [address] Gil Hernandez MD [address] [place] [id number] Esophageal stenosis Discharge Disposition: Home or Self Care [...] Sign Reading Time Taken Comments Blood Pressure 172/91 09/29/2024 11:15 AM EDT Pulse 57 09/29/2024 11:15 AM EDT Temperature 36.4 C (97.5 F) 09/29/2024 11:15 AM EDT Respiratory Rate 10 09/29/2024 11:1 5 AM EDT Oxygen Saturation 95% 09/29/2024 11: 15 AM EDT Inhaled Oxygen Concentration - - Weight 89.2 kg (196 lb 10.4 oz) 09/29/2024 8:08 AM EDT Height 177.8 cm (5' 10 ) 09/29/2024 8:08 AM EDT Body Mass Index 28.22 09/29/2024 8:08 AM EDT documented in this encounter Functional Status * Calculated C-SSRS Risk Score (Lifetime/Recent) Answer Date of Assessment Author No Risk Indicated 09/29/2024 8:59 AM EDT January Jeffries RN * Question Answer Date of Assessment Author 1. Wish to be (Past 1 Month) No 09/29/2024 8:59 AM EDT January Jeffries RN 2. Non-Specific Active Suici vesta Thoughts (Past 1 Month) No 09/29/2024 8:59 AM EDT Shalini Jeffries RN 6. Suicidal Behavior (Lifetime) No 8:59 AM EDT January Jeffries RN documented as of this encounter Discharge Instructions * Discharge Instructions* Toña Chandra RN - 09/29/2024 10:11 AM EDT Images from the original note were not included. - Diet: You may resume your regular home diet - Medications: Take tylenol and ibuprofen every 6 hours for pain as needed Future Appointments Date Time Provider Department Center 11/09/2024 7:40 AM [facility]/06/[facility] 1:30 PM Melchor Flood DO [facility] 12/11/2024 10:40 AM Porfirio Viveros MD [facility] 01/15/2025 1:30 PM [facility] 01/15/2025 3:[address] [facility] 01/18/2025 3:10 PM [facility] Third Floor, Wing [address], [address] [facility] [address] Call [phone] for questions regarding appointment times Post-Anesthesia and Postoperative Instructions () In order to have a fast and comfortable recovery at home, please follow these instructions. A responsible adult must be present for you to be discharged. Do not drive, drink alcohol or make important decisions for 24 hours after surgery. You may feel like resting more than normal after surgery. Start slowly and be more active each day. Start slowly with liquids like 7-up, tea, apple juice or broth. Eat more as your stomach allows. Ifyou feel sick to your stomach, go back to drinking liquids. You may feel some discomfort after surgery. Take the medicine as directed by your caregiver. If your medicine makes you drowsy, do not drink alcohol, drive or operate heavy equipment for at least 24 hours after use. If you are taking antibiotics, take them until they are all gone even if you feel well. Cover your wound or bandage when showering, unless your doctor tells you differently. A small amount of drainage on your bandage is normal. Do not remove your bandage unless your doctortells you to. Please keep track of information about the medicines you take. Follow these tips to manage your medicines. Keep a list of all your medicines. Update the list when you start or stop taking a medicine. Write down changes in how you should take them. Carry your medicine list with you at all times. It will be needed if you have a health emergency . Give the list to your family doctor. Take the list to all your doctor visits. Call your doctor if you have any of the following Temperature higher than 101.5??F Chest pain or difficulty breathing Stomach sickness or throwing up that does not go away You cannot urinate by bedtime Pain is not helped by your medicine. Bandage becomes soaked with blood - Don't remove the bandage, reinforce only Swelling, redness, pain or pus from incision Questions or concerns about your surgery. In the event of an emergency, please go to the closest Emergency Room or call the Emergency Department at [phone]. Smoking and its health risks Smoking is the most preventable cause of illness and in the [place]. Cigarettes are filled with poison that goes into the lungs as you inhale. About 440,000 people every year from illnesses caused by smoking. People who smoke earlier than those who do not smoke. Heart and blood vessel disease, lung disease and ulcers are just some of the health problems that may be caused by smoking. Smoking also slows bone and wound healing and may slow your recovery from surgery. For help quitting smoking, call the National Cancer Rupert's Quitline toll free at or ask your doctor for help. Weight Management Weighing too much is not good for your health. Being overweight increases your risk of health conditions such as heart problems, high blood pressure, type 2 diabetes, and certain types of cancer. Being overweight can also increase your risk for osteoarthritis (ew-mmj-cn-xqg-MUQG-aoc) (joint disease), sleep apnea (abnormal breathing at night) or other respiratory (breathing) problems. Being overweight may also cause a person to feel sad or be treated differently by others. The best way to lose weight is to eat fewer calories and get regular exercise. Eating more caloriesthan you need will cause you to gain weight. Try to cut down your calories by 500 calories per day.For example, cut down on one soda (about [...] off if you make lifelong lifestyle changes. Aim for a slow, steady weight loss. Losing even a small amount of weight can lower your risk of health problems. Ask your dietitian, upsetter helper or doctor about a weight loss goal [...] make sure I take my medicine safely? Follow the instructions we give you for how to take your medicine. We will give you an instruction sheet for each of your medicines. Ask your doctor or nurse if you do not get these instructions. Some medicines make you sleepy or cloud your thinking. Do not drive, use heavy machines or do dangerous activities while taking these medicines. Read the label on the bottle each time you take your medicine. Do not take your medicine with alcohol or other sedatives. Do not take medicine after the expiration date. It is against the law to sell your medicine or share it with others. Do not drive while using your medicine. How should I store my medicine? Store it in a safe place. This will keep others from taking your medicine and help you keep track of it. Store controlled substances in a cabinet or container that you can lock. Keep it in a place that is cool, dry and out of direct sunlight. Do not leave it in the car. Do not store in a refrigerator or freezer, unless your doctor tells you to. Call your doctor right away if your [...] learn more about disposal of controlled substances: Drug Enforcement Agency (MADELYN): http://www.deadiversion.usdoj.gov/drug_disposal/takeback/index.htm National Association of Drug Diversion Investigators (NADDI): http://rxdrugdropbox.org/ [place] Office of Drug Control Policy: http://odcp.[place].gov/Prescription+Drug+Drop+Box+Sites.htm Are there concerns about or ? Before you take a medicine, tell your doctor if you are or plan to get . This could harm your baby. Tell your doctor if you breastfeed. Medicine in breast milk may be bad for your child. What if I have low or impaired vision? If you have vision problems, take extra care with your medicine. Wear your glasses when you take your medicine. Do not take medicine in the dark. What are the signs of overdose? Some controlled substances may cause breathing problems if you take more than your doctor recommends. This may lead to serious health problems or even . You and your caregivers should watch for the following signs of overdose. Slurred speech, confusion or stumbling Feeling dizzy or faint Acting drowsy or groggy Unusual snoring, gasping or snorting during sleep Hard to wake up or keep awake What should I or my caregiver do if I overdose? You or your caregiver should call 911 if you have any of these problems: Cannot wake up Cannot talk after waking up Shortness of breath, slow or light breathing, or breathing has stopped Heartbeat is slow or stopped Gurgling noise comes from the mouth or throat Body is limp or seems lifeless Face is pale or clammy Fingernails or lips look blue or purple What is a KEVAN report? [facility] is a system that tracks prescriptions of controlled substances in [place]. The [facility] report tells your doctor if you have been prescribed controlled substances in the past. Doctors must get a KEVAN report before prescribing controlled substances. What can I do if the information in my KEVAN report is wrong? You or your doctor may contact the dispenser who reported the information to KEVAN. If the dispenser agrees that the information should be changed, he or she can fix the KEVAN report. However, the dispenser may certify that the report is correct. If that is the case, you or your doctor may then call the [place] Drug Enforcement and Professional Practices Branch at [...] know them, you can deal with them. Avoid places where you will see people use tobacco. This is very important when you first start to quit. Plus, secondhand smoke is bad for you. Change habits that give you the urge to use tobacco. If you smoked in the car, drink water instead.If you used tobacco after meals, try taking walks. Stress, anger or sadness can cause you [...] You may even find help for free. Support groups: Your local health department may offer these. [place]'s resources to help you quit: http://www.firsthealth.[facility]/TobaccoFree/ - Click on the Quit Here! tab. A telephone quit line: (2-601-GWYVBUS) Web sites: www.smokefree.gov, www.becomeanex.org, www.[facility] Tobacco Treatment Counselors: Call 346-805-4565. Medicare and Medicaid pay for this. employees, retirees, and their spouses or sponsored dependents can get free nicotine replacementtherapy and coaching. Visit www.firsthealth.[facility]/HR/Wellness/consults.html. [facility]: Free pamphlets on quitting tobacco, secondhand smoke and other health topics. Tell your doctor or nurse if you [...] this encounter Medications at Time of Discharge amLODIPine (Norvasc) 2.5 MG tablet TAKE 1 TABLET BY MOUTH EVERY DAY 90 tablet 1 03/21/2024 atorvastatin (Lipitor) 20 MG tablet TAKE 1 TABLET BY MOUTH EVERY DAY 90 tablet 05/15/2024 fluconazole (Diflucan) 200 MG tablet 01/17/2024 gabapentin (Neurontin) 600 MG tabletIndications: Neoplasm related pain Take 1 tablet by mouth 4 times a day. 120 tablet 2 09/25/2024 levothyroxine (Synthroid, Levoxyl) 125 MCG tablet Take 1 tablet (125 mcg) by mouth daily. 90 tablet 1 07/20/2024 lisinopril-hydroCH LOROthiazide 20-25 MG tabletIndications: Primary hypertension TAKE 1 TABLET BY MOUTH EVERY DAY 90 tablet 1 03/21/2024 naloxone (Narcan) 4 mg/0.1 mL nasal sprayIndications:N [...] for 3 days. 30 tablet 5 07/12/2023 tamsulosin (Flomax) 0.4 MG 24 hr capsule Take 1 capsule (0.4 mg) by mouth every night. 90 capsule 1 03/01/2024 ALPRAZolam (Xanax) 1 MG tablet Take 1 tablet (1 mg) by mouth 2 (two) times a day. 60 tablet 2 08/04/2024 5 ALPRAZolam (Xanax) 1 MG tablet Take 1 tablet by mouth 2 times a day. 60 tablet 2 10/04/2024 5 oxyCODONE (Roxicodone) 30 MG immediate release tabletIndications: Neoplasm related pain Take 1 tablet by mouth every 3 (three) hours as needed for severe pain. 240 tablet 08/31/2024 5 oxyCODONE (Roxicodone) 30 MG immediate release tabletIndications: Neoplasm related pain Take 1 tablet by mouth every 3 hours as needed for severe pain. 240 tablet 10/04/2024 5 documented as of this encounter Miscellaneous Notes * Anesthesia PACU Signout - Blank Lemon MD - 09/29/2024 10:20 AM EDT Patient: Anibal Barreto Anesthesia Type: general Vitals Value Taken Time BP 143/73 09/29/24 10:15 Temp 36.1 ??C (97 ??F) 09/29/24 10:13 Pulse 63 09/29/24 10:18 Resp 12 09/29/24 10:18 SpO2 95 % 09/29/24 10:18 Vitals shown include unfiled device data. Anesthesia PACU Signout Patient location during evaluation: PACU Patient participation: complete - patient participated Level of consciousness: baseline and awake Pain management: adequate (pain score 0-3) Airway patency: natural airway Hydration status: acceptable PONV: none Cardiovascular status: acceptable and hemodynamically stable Respiratory status: acceptable, spontaneous ventilation, unassisted and nonlabored ventilation Discharge Disposition: home * Op Note - Katy Garland MD - 09/29/2024 9:42 AM EDT Operative Note Date: 09/29/24 Location: [facility] OR Name: Anibal Barreto, : 1965, Diagnoses: Pre-op Diagnosis Esophageal stenosis Post-op Diagnosis Esophageal stenosis Procedure(s): Suspension microlaryngoscopy with flexible esophagoscopy and balloon dilation Steroid injection Biopsy of the yifan-esophageal introitus Attending Surgeon(s): * Gil Hernandez - Primary Senior Sql Developer(s): * Katy Garland MD - Resident - Assisting Anesthesia: * No anesthesia type entered * ASA: III Blood Administration: Blood Product Administration History Date Volume Status Transfuse platelets 06/12/2021 234 mL Completed 06/12/21 1827 Estimated Blood Loss: Minimal Drains: * None in log * Specimen: ID Source Type Collected By Time Frozen 1 Larynx Tissue Gil Hernandez MD 09/29/24 1005 No Description: Yifan esophageal intriotus Findings: Narrowing at the level of the yifan-esophagus introitus. Dilated to 19 mm with improvement of narrowing. No suspicious lesions of the esophagus. There was a white rough plaque at the region left to the yifan-esophageal introitus that appeared irregular. Biopsy was taken of this irregularity. Decadron injected to the posterior wall of the yifan-pharynx. Indications: Anibal Barreto is an 59 y.o. male who is having surgery for Esophageal stenosis.Has had many esophageal dilations in the past after his total laryngectomy for squamous cell carcinoma. Has noticed narrowing recently and trouble tolerating solid foods. Narrative: Patient brought into the operating room [...] down to stomach and above findings noted. Decadron was injected to the posterior yifan pharyngeal wall overlying the cricopharyngeus muscle. Esophageal balloon was then used to dilate the stenotic segment. Biopsy was taken of the left mucosal irregularity using cupped forceps; specimen was passed off for pathologic analysis. Hemostasis was achievedand then the patient was returned to anesthesia for appropriate wake-up. Complications: None; patient tolerated the procedure well. Submitted by: Katy Garland MD - 09/29/2024 Cosigned by Gil Hernandez MD at 09/29/2024 1:56 PM EDT Associated attestation - Gil Hernandez MD - 09/29/2024 1:56 PM EDT I was present and scrubbed for the entire case and agree with the above description of the entire procedure. * January Sandoval RN - 09/29/2024 9:14 AM EDT Images from the original note were not included. [id number] Scopolamine Transdermal Patch Brand Name(s): Transderm Scop?? Transdermal scopolamine WHY is this medicine prescribed? Scopolamine is used to prevent nausea and vomiting caused by motion sickness or medications used during surgery. Scopolamine is in a class of medications called antimuscarinics. It works by blocking the effects of a certain natural substance (acetylcholine) on the central nervous system. HOW should this medicine be used? Scopolamine comes as a patch to be placed on the hairless skin behind your ear. When used to help prevent nausea and vomiting caused by motion sickness, apply the patch at least 4 hours before its effects will be needed and leave in place for up to 3 days. If treatment is needed for longer than 3 days to help prevent nausea and vomiting caused by motion sickness, remove the current patch and apply a new patch behind the other ear. When used to prevent nausea and vomiting from medications used with surgery, apply the patch as directed by your doctor and leave it in place for 24 hours after your surgery. Follow the directions on your prescription label carefully, and ask your doctor or pharmacist to explain any part you do not understand. Use the scopolamine patch exactly as directed. To apply the patch, follow these instructions: ?? After washing the area behind the ear, wipe the area with a clean, dry tissue to ensure that thearea is dry. Avoid placing on areas of your skin that have cuts, pain, or tenderness. ?? Remove the patch from its protective pouch. Peel off the clear plastic protective strip and discard it. Don't touch the exposed adhesive layer with your fingers. ?? Place the adhesive side against the skin. ?? After you have placed the patch behind your ear, wash your hands thoroughly with soap and water. Do not cut the patch. Limit contact with water while swimming and bathing because it may cause the patch may fall off. Ifthe scopolamine patch falls off, discard the patch, and apply a new one on the hairless area behindthe other ear. When the scopolamine patch is no longer needed, remove the patch and fold it in half with the sticky side together and dispose of it. Wash your hands and the area behind your ear thoroughly with soapand water to remove any traces of scopolamine from the area. If a new patch needs to be applied, place a fresh patch on the hairless area behind your other ear. If you have used scopolamine patches for several days or longer, you may experience withdrawal symptoms that could start 24 hours or more after removing the scopolamine patch such as difficulty with balance, dizziness, nausea, vomiting, stomach cramps, sweating, headache, confusion, muscle weakness, slow heart rate or low blood pressure. Call your doctor right away if your symptoms become severe. Ask your pharmacist or doctor for a copy of the risk manager's information for the patient. Are there OTHER USES for this medicine? This medication is sometimes prescribed for other uses; ask your doctor or pharmacist for more information. What SPECIAL PRECAUTIONS should I follow? Before using scopolamine patches, ?? tell your doctor and pharmacist if you are allergic to scopolamine, other belladonna alkaloids, any other medications, or any of the ingredients in scopolamine patches. Ask your doctor or pharmacist, check the package label, or check the Medication Guide for a list of the ingredients. ?? tell your doctor and pharmacist what prescription and nonprescription medications, vitamins, nutritional supplements, and herbal products you are taking or plan to take while using scopolamine patches. Your doctor may need to change the doses of your medications or monitor you carefully for sideeffects. ?? tell your doctor if you have angle-closure glaucoma (a condition where the fluid is suddenly blocked and unable to flow out of the eye causing a quick, severe increase in eye pressure which may lead to a loss of vision). Your doctor will probably tell you not to use scopolamine patch. ?? tell your doctor if you have or have ever had open-angle glaucoma (increase in internal eye pressure that damages the optic nerve); seizures; psychotic disorders (conditions that cause difficulty telling the difference between things or ideas that are real and things or ideas that are not real);stomach or intestinal obstruction; difficulty urinating; preeclampsia (condition during with increased blood pressure, high protein levels in the urine, or organ problems); or heart, liver,or kidney disease. ?? tell your doctor if you are , plan to become , or are . If you become while using scopolamine patches, call your doctor immediately. ?? if you are having surgery, including dental surgery, tell the doctor or dentist that you are using scopolamine patches. ?? you should know that scopolamine patch may make you drowsy. Do not drive a car or operate machinery until you know how scopolamine patches will affect you. If you participate in water sports, use caution because this medication can have disorienting effects. ?? talk to your doctor about the safe use of alcoholic beverages while using this medication. Alcohol can make the side effects caused by scopolamine patches worse. ?? talk to your doctor about the risks and benefits of using scopolamine if you are 65 years of ageor older. Older adults should not usually use scopolamine because it is not as safe or effective asother medications that can be used to treat the same condition. What should I do IF I FORGET to take a dose? Apply the missed patch as soon as you remember it. Do not apply more than one patch at a time. What SIDE EFFECTS can this medicine cause? Some side effects can be serious. If you experience any of the following symptoms, remove the patchand call your doctor immediately: ?? rash ?? redness ?? eye pain, redness, or discomfort; blurred vision; seeing halos or colored images ?? agitation ?? seeing things or hearing voices that do not exist (hallucinating) ?? confusion ?? believing things that are not true ?? not trusting others or feeling that others want to hurt you ?? difficulty speaking ?? seizure ?? painful or difficulty urinating ?? stomach pain, nausea, or vomiting Scopolamine patches may cause other side effects. Call your doctor if you have any unusual problemswhile you are using this medication. If you experience a serious side effect, you or your doctor may send a report to the Food and Drug Administration's (FDA) MedWatch Adverse Event Reporting program online (https://www.fda.gov/Safety/MedWatch) or by phone ( ). What should I know about STORAGE and DISPOSAL of this medication? Keep this medication in the container it came in, tightly closed, and out of reach of children. Store it at room temperature and away from excess heat and moisture (not in the bathroom). Store patches in an upright position; do not bend or roll them. It is important to keep all medication out of sight and reach of children as many containers (such as weekly pill minders and those for eye drops, creams, patches, and inhalers) are not child-resistant and young children can open them easily. To protect young children from poisoning, always lock safety caps and immediately place the medication in a safe location - one that is up and away and out of their sight and reach. https://www.[employer].org Unneeded medications should be disposed of in special ways to ensure that pets, children, and otherpeople cannot consume them. However, you should not flush this medication down the toilet. Instead,the best way to dispose of your medication is through a medicine take-back program. Talk to your pharmacist or contact your local garbage/recycling department to learn about take-back programs in your community. See the FDA's Safe Disposal of Medicines website (https://goo.gl/c4Rm4p) for more information if you do not have access to a take-back program. What should I do in case of OVERDOSE? In case of overdose or if someone swallows a scopolamine patch, call your local poison control center at . If the victim has collapsed or is not breathing, call local emergency servicesat [phone]. Symptoms of overdose may include the following: ?? dry skin ?? dry mouth ?? difficulty urinating ?? fast or irregular heartbeat ?? tiredness ?? drowsiness ?? confusion ?? agitation ?? seeing things or hearing voices that do not exist (hallucinating) ?? seizure ?? vision changes ?? coma What OTHER INFORMATION should I know? Keep all appointments with your doctor and the laboratory. Before having any laboratory test, tell your doctor and the laboratory personnel that you are usingscopolamine patch. Remove the scopolamine patch before having a magnetic resonance imaging scan (MRI). Do not let anyone else use your medication. Ask your pharmacist any questions you have about refilling your prescription. It is important for you to keep a written list of all of the prescription and nonprescription (yhro-izf-vflpqug) medicines you are taking, as well as any products such as vitamins, minerals, or otherdietary supplements. You should bring this list with you each time you visit a doctor or if you areadmitted to a hospital. It is also important information to carry with you in case of emergencies. This report on medications is for your information only, and is not considered individual patient advice. Because of the changing nature of drug information, please consult your physician or pharmacist about specific clinical use. The [employer] represents that the information provided hereunder was formulated with a reasonable standard of care, and in conformity with professional standards in the field. The [employer] makes no representations or warranties, express or implied, including, but not limited to, any implied warranty of merchantability and/or fitness for a particular purpose, with respect to such information and specifically disclaims all such warranties. Users are advised that decisions regarding drug therapy are complex medical decisions requiring the independent, informed decision of an appropriate health child care leader, and the information is provided for informational purposes only. The entire monograph for a drug should be reviewed for a thorough understanding of the drug's actions, uses and side effects. The [employer] does not endorse or recommend the use of any drug.The information is not a substitute for medical care. AHFS?? Patient Medication Information?. ?? Copyright, 2023. The [employer]??, [address], [address], [place], [place]. All Rights Reserved. Duplication for commercial use must be authorized by [facility]. Selected Revisions: November 12, 2018. AHFS?? Patient Medication Information?. ?? Copyright, 2024 * H&P - Katy Garland MD - 09/29/2024 6:51 AM EDT Anibal Barreto was seen in pre-operative holding. H&P from 09/13/24 as shown below was reviewed. Consent obtained. Proceed to OR today for flexible esophagoscopy with dilation, possible CO2 laser and botox injection. I had the pleasure of seeing Anibal Barreto today, who is a 59 y.o. male that returns to the clinic for follow-up after his swallowing. 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 He last underwent a dilation on 07/30/23 to 24 mm and didwell with that for quite a while. However, over the last few months he's noticed a slow return of swallowing problems again. He is unable to use his dentures due to trismus. Visit Vitals BP (!) 207/91 Pulse 77 Ht 1.753 m (5' 9 ) Wt 90.7 kg (200 lb) BMI 29.53 kg/m?? Smoking Status Former BSA 2.1 m?? Allergies Allergies Allergen Reactions Cetuximab Anaphylaxis SOA, hypotension, [...] the OR to help with his swallowing. Will plan for super dilation at that time as well along with steroid injection. Cosigned by Gil Hernandez MD at 09/29/2024 2:06 PM EDT Associated attestation - Gil Hernandez MD - 09/29/2024 2:06 PM EDT I saw and evaluated the patient with the resident/fellow. I discussed the case with the resident/fellow and agree with the findings and plan as documented. documented in this encounter Plan of Treatment Upcoming Encounters Date Type Department Care Team (Late st Contact Info) Description 12/06/2024 1:40 PM EDT Procedure Visit [facility] [address] [place] [address] Bang Valle S, DO [address] [place] [address] 12/11/2024 10:40 AM EDT Office Visit Anaannika Gildardo [address] [place] [phone] Porfirio Viveros MD [address] [place] [phone] 01/15/2025 1:30 PM EDT Clinical Support [facility] [address] [facility] [address] [facility]nd [place] [phone] 01/15/2025 3:00 PM EDT Appointment [facility] [address] [place] [phone] 01/18/2025 3:10 PM EDT Office Visit [facility] [address] [facility] [address] [facility] [place] [phone] Divine Carpenter MD [address] [facility] [address] [place] [address] documented as of this encounter Procedures Procedure Name Priority Date/Time Associated Diagnosis Comments SURGICAL PATHOLOGY EXAM Routine 09/30/19 10:05 AM EDT Esophageal stenosis INJECTION, ONABOTULINUMTOXINA 09/29/2024 9:14 AM EDT Esophageal stenosis INJECTION, VOCAL CORD, LARYNGOSCOPIC 09/29/2024 9:14 AM EDT Esophageal stenosis ESOPHAGOSCOPY, WITH DILATION 09/29/2024 9:14 AM EDT Esophageal stenosis documented in this encounter Results * Surgical Pathology Exam (09/29/2024 10:05 AM EDT) Case Report Surgical Pathology Case: [id number] Authorizing Provider: Gil Hernandez MD Collected: 09/29/2024 1005 Ordering Location: [facility] Received: 09/29/2024 1217 Surgery Pathologist: Clarke Leal MD Specimen: Larynx, Yifan esophageal intriotus 10/03/2024 2:19 PM EDT [facility] Final Diagnosis A. YIFAN ESOPHAGEAL INTRIOTUS - BENIGN SQUAMOUS EPITHELIUM WITH HYPERKERATOSIS 10/03/2024 2:19 PM EDT [facility] at 1419 EDT Clinical Information Esophageal stenosis 10/03/2024 2:19 PM EDT [facility] Gross Description A. YIFAN ESOPHAGEAL INTRIOTUS Received in formalin labeled Yifan esophageal intriotus are multiple white-vang soft tissue fragments measuring less than 0.1 to 0.3 cm in greatest dimension. Entirely submitted in cassette A1. Cold Time: <1m Jennifer Gipson 10/03/2024 2:19 PM EDT [facility] Note: A resident was involved in the service. I attest I examined the relevant preparations for the specimens and confirmed the diagnosis or interpretation. 10/03/2024 2:19 PM EDT [facility] Tissue Laryngeal structure / Unknown 09/29/2024 10:05 AM EDT 09/29/2024 12:17 PM EDT Comment:Pre-op diagnosis: Esophageal stenosis us Gil Hernandez MD LAB PATHOLOGY ORDERABLES Final R esult [facility] [address] [place] [address] documented in this encounter Visit Diagnoses Diagnosis Esophageal stenosis Stricture and stenosis of esophagus documented in this encounter Administered Medications Inactive Administered Medications - up to 3 most recent administrations Medication Order MAR Action Action Date Dose Rate Site fentaNYL (Sublimaze) injection 25 mcg 25 mcg, Intravenous, Every 5 min PRN, 2 doses, Starting on Wed09/29/24 at 1011, Until Wed09/29/24 at 1335, Routine, Recovery (Phase I only), pain score of 3-4 out of 10 ondansetron (Zofran) injection 4 mg 4 mg, Intravenous, Once as needed, 1 dose, Starting on Wed09/29/24 at 1011, Until Wed09/29/24 at 1335, Routine, Recovery (Phase I only), nausea, vomiting ondansetron ODT (Zofran-ODT) disintegrating tablet 4 mg 4 mg, Oral, Once, 1 dose, On Wed09/29/24 at 0900, Routine, Holding - Preprocedure Given 09/29/2024 8:40 AM EDT 4 mg scopolamine (Transderm-Scop) patch 1 patch 1 patch, Transdermal, Once, 1 dose, On Wed09/29/24 at 0900, Routine, Holding - Preprocedure Medication Applied 09/29/2024 8:40 AM EDT 1 patch Behind Left Ear sodium chloride 0.9 % flush 10 mL 10 mL, Intravenous, Every 8 hours PRN, Starting on Wed09/29/24 at 0807, Until Wed09/29/24 at 1335, Routine, Holding - Preprocedure, line care sodium chloride 0.9 % flush 10 mL 10 mL, Intravenous, As needed, Starting on Wed09/29/24 at 0807, Until Wed09/29/24 at 1335, Routine, Holding - Preprocedure, line care documented in this encounter Active and Recently Administered Medications Times are shown in EDT. Scheduled Medication Order 09/27/2024 09/28/2024 09/29/2024 ondansetron ODT (Zofran-ODT) disintegrating tablet 4 mg (COMPLETED) 4 mg, Oral, Once, 1 dose, On Wed09/29/24 at 0900, Routine, Holding - Preprocedure 0840 (Given - Provid er: January Jeffries RN) scopolamine (Transderm-Scop) patch 1 patch 1 patch, Transdermal, Once, 1 dose, On Wed09/29/24 at 0900, Routine, Holding - Preprocedure 0840 (Medication Lawson lied - Provider: January Jeffries RN)1135 (Due: Medication Removed - Provider: Automatic Discharge Provider - Comment: Time automatically adjusted from order being discontinued) PRN Medication Order 09/27/2024 09/28/2024 09/29/2024 dexamethasone (PF) (Decadron) injection (CANCELED) As needed, Starting on Wed09/29/24 at 0957, Until Wed09/29/24 at 1012, Routine, Intraprocedure 0957 (Given - Provid er: Gil Hernandez MD - Comment: vocal cord) fentaNYL (Sublimaze) injection 25 mcg 25 mcg, Intravenous, Every 5 min PRN, 2 doses, Starting on Wed09/29/24 at 1011, Until Wed09/29/24 at 1335, Routine, Recovery (Phase I only), pain score of 3-4 out of 10 ondansetron (Zofran) injection 4 mg 4 mg, Intravenous, Once as needed, 1 dose, Starting on Wed09/29/24 at 1011, Until Wed09/29/24 at 1335, Routine, Recovery (Phase I only), nausea, vomiting oxymetazoline (Afrin) 0.05 % nasal spray (CANCELED) As needed, Starting on Wed09/29/24 at 0948, Until Wed09/29/24 at 1012, Routine, Intraprocedure 0948 (Given - Provid er: Katy Garland MD - Comment: on intraoperative field on pledgets) sodium chloride 0.9 % flush 10 mL(Linked Group 1) 10 mL, Intravenous, Every 8 hours PRN, Starting on Wed09/29/24 at 0807, Until Wed09/29/24 at 1335, Routine, Holding - Preprocedure, line care sodium chloride 0.9 % flush 10 mL(Linked Group 1) 10 mL, Intravenous, As needed, Starting on Wed09/29/24 at 0807, Until Wed09/29/24 at 1335, Routine, Holding - Preprocedure, line care sterile water irrigation solution (CANCELED) As needed, Starting on Wed09/29/24 at 1000, Until Wed09/29/24 at 1014, Routine 1000 (Given - Provid er: Gil Hernandez MD - Comment: on intraoperative field) Linked Groups Order Group 1: Insert peripheral IV (CANCELED) Once, On Wed09/29/24 at 0808, For 1 occurrence, Holding - Preprocedure And Saline lock IV (CANCELED) Once, On Wed09/29/24 at 0808, For 1 occurrence, Holding - Preprocedure And sodium chloride 0.9 % flush 10 mLJump to med 10 mL, Intravenous, Every 8 hours PRN, Starting on Wed09/29/24 at 0807, Until Wed09/29/24 at 1335, Routine, Holding - Preprocedure, line care And sodium chloride 0.9 % flush 10 mLJump to med 10 mL, Intravenous, As needed, Starting on Wed09/29/24 at 0807, Until Wed09/29/24 at 1335, Routine, Holding - Preprocedure, line care documented in this encounter Additional Health Concerns Assessment Noted Time A fall risk assessment has been complete d for the patient 08/28/2024 2:26 PM EDT A Body Mass Index follow-up plan has been documented for the patient 09/17/2024 4:12 PM EDT documented as of this encounter Care Teams Grain Elevator Worker Relationship Specialty Start Date End Date Kizzy Gaspar MD [address] [place] [id number] PCP - General 09/22/24 Shun Hurst MD [address] [facility] [address] [place] [phone] Surgeon Neurosurgery 02/24/21 Divine Carpenter MD [address] [facility] [address] [place] [phone] Medical Oncologist Medical Oncology 06/13/21 Ambika Cain CF-[employer] Speech Language Pathologist Speech Pathology 10/06/23 Monique Jain, RN Registered Nurse Hematology and Oncology 08/31/24 documented as of this encounter
--- OUTSIDE RECORDS SUMMARY | 2024-09-29 09:15 | XMS_ITS | Encounter Summary ---
Author Organization Healthcare Address [address] [id number] Care Team Providers Care Mechanical Equipment Test Engineer Name Role Phone Shun Hurst MD Unavailable [phone] Divine Carpenter MD Unavailable Ambika Cain CF-SHOE TRIMMER Unavailable Unavailab Monique Flannery RN Unavailable Unavailable Kizzy Gaspar MD Primary Care Provider [phone] Reason for Visit * Auth/Cert (Routine) Specialty Diagnoses / Procedures Referred By Contac t Referred To Contact Diagnoses Esophageal stenosis Esophageal stenosis Procedures CT LARYNGOSCOPY,DIRCT,OP SCOP,EXC TUMR CT LARYNGOSCOPY,DIRECT,SCOPE,INJ CORDS CT ESOPHAGOSCOPY FLEXIBLE TRANSORAL DIAGNOSTIC CT ESOPHAGOSCOPY FLEX BALLOON DILAT <[address] ESOPHAGOSCOPY DILATE ESOPHAGUS BALLOON [address] DEXAMETHASONE SODIUM PHOS CT INJECTION,ONABOTULINUMTOXINA FLEXIBLE ESOPHAGOSCOPY WITH BALLOON DILATION INJECTION OF STEROIDS SUPER DILATION CO2 LASER LYSIS OF SCAR BAND, BOTOX TO ANY SPHINCTER MUSCLE, DECADRON 10mg/ml, 1cc TO ESOPHGEAL ENTRANCE/SCAR Gil Hernandez MD [address] [facility] [address] [place] [address] Phone: tel: fax: [facility] [address] [place] [address] Phone: tel: Referral ID Status Reason Start Date Expiration Date Visits Re quested Visits Authorized [id number] 1 1 Encounter Details Date Type Department Care Team (Late st Contact Info) Description 09/29/2024 9:15 AM EDT - 09/29/2024 10:40 AM EDT Surgery [facility] [address] [place] [address] Gil Hernandez MD [address] [place] [phone] FLEXIBLE ESOPHAGOSCOPY WITH BALLOON DILATION Surgery Details Date/Time Status Location OR Service Patient Class Case Class Case Type Trauma Case? 09/29/2024 9:15 AM Posted [facility] Outpatient Surgery E-Electiv e Panel 1 Procedure LRB Anes Op Region Wound Class Comments FLEXIBLE ESOPHAGOSCOPY WITH BALLOON DILATION N/A INJECTION OF STEROIDS SUPER DILATION N/A DECADRON 10mg/ml, 1cc TO ESO PHGEAL ENTRANCE/SCAR N/A Surgeon Surgeon Role Service Panel Katy Garland MD Resident - Assisting 1 Gil Hernandez MD Primary ENT 1 [...] Sign Reading Time Taken Comments Blood Pressure 184/91 09/29/2024 10:30 AM EDT Pulse 63 09/29/2024 10:40 AM EDT Temperature 36.1 C (97 F) 09/29/2024 10:30 AM EDT Respiratory Rate 16 09/29/2024 10:4 0 AM EDT Oxygen Saturation 96% 09/29/2024 10: 40 AM EDT Inhaled Oxygen Concentration - - [...] 11/09/2024 7:40 AM [facility] 12/06/2024 1:30 PM Melchor Flood DO [facility] 12/11/2024 10:40 AM Porfirio Viveros MD [facility] 01/15/2025 1:30 PM [facility] 01/15/2025 3:[address] 1 [facility] 01/18/2025 3:10 PM Divine Carpenter MD [facility] Third Floor, Wing C, [address] [facility] [address] Call [phone] for questions regarding appointment times Post-Anesthesia and [...] Room or call the Emergency Department at [phone]. Smoking and its health risks Smoking is [...] help quitting smoking, call the National Cancer Nemacolin's Quitline toll free at or ask your doctor for help. Weight Management Weighing too much is not good for your health. Being overweight increases your risk of health conditions such as heart problems, high blood pressure, type 2 diabetes, and certain types of cancer. Being overweight can also increase your risk for osteoarthritis (do-rio-dj-uvu-CCGM-dkj) (joint disease), sleep apnea (abnormal breathing at [...] risk of health problems. Ask your dietitian, tank car mechanic or doctor about a weight loss goal [...] of controlled substances: Drug Enforcement Agency (MADELYN): http://www.deadiversion.Sampling Technologiesoj.gov/drug_disposal/takeback/index.htm National Association of Drug Diversion Investigators (NADDI): http://rxdrugdropbox.org/ [place] Office of Drug Control Policy: http://odcp.wv.gov/Prescription+Drug+Drop+Box+Sites.htm Are there concerns about or ? Before [...] or purple What is a KEVAN report? Ayudarum is a system that tracks prescriptions of controlled substances in [place]. The KEVAN report tells your doctor if [...] or your doctor may then call the [place] Drug Enforcement and Professional Practices Branch at [...] these. [place]'s resources to help you quit: http://www.uk3Jam.piedmont mcduffie/TobaccoFree/ - Click on the Quit Here! tab. A telephone quit line: (6-825-KXPRRVE) Web sites: www.smokefree.gov, www.becomeanex.org, www.kingsky.Simmr Tobacco Treatment Counselors: Call 245-726-7214. Medicare and Medicaid pay for this. employees, retirees, and their spouses or sponsored dependents can get free nicotine replacementtherapy and coaching. Visit www.[facility] health.piedmont mcduffie/HR/Wellness/consults.html. [facility]: Free pamphlets [...] AM EDT Operative Note Date: 09/29/24 Location: [facility] OR Name: Anibal Barreto, : 1965, Diagnoses: Pre-op Diagnosis Esophageal stenosis Post-op Diagnosis Esophageal stenosis Procedure(s): Suspension microlaryngoscopy with flexible esophagoscopy and balloon dilation Steroid injection Biopsy of the yifan-esophageal introitus Attending Surgeon(s): * Gil Hernandez - Primary Dairy And Food Laboratory Assistant(s): * Katy Garland MD - Resident - [...] from the original note were not included. [id number] Scopolamine Transdermal Patch Brand Name(s): Transderm Scop?? [...] or doctor for a copy of the nurse midwife/clinical instructor's information for the patient. Are there OTHER [...] and out of their sight and reach. https://www.[employer]plan Information Services AGndJobzippers.org Unneeded medications should be disposed of in [...] is not breathing, call local emergency servicesat 175. Symptoms of overdose may include the following: [...] of all of the prescription and nonprescription (xcnn-iee-rzakblq) medicines you are taking, as well as [...] or pharmacist about specific clinical use. The [place] [employer]. represents that the information provided hereunder was formulated with a reasonable standard of care, and in conformity with professional standards in the field. The [place] [employer]System [employer]. makes no representations or warranties, express or implied, including, but not limited to, any implied warranty of merchantability and/or fitness for a particular purpose, with respect to such information and specifically disclaims all such warranties. Users are advised that decisions regarding drug therapy are complex medical decisions requiring the independent, informed decision of an appropriate health social worker palliative care, and the information is provided for informational purposes only. The entire monograph for a drug should be reviewed for a thorough understanding of the drug's actions, uses and side effects. The [place] [employer]-System Pharmac[employer]. does not endorse or recommend the use of any drug.The information is not a substitute for medical care. AHFS?? Patient Medication Information?. ?? Copyright, 2023. The [place] [employer] of Health-System Pharmacists??, [address], [address], [place], [place]. All Rights Reserved. Duplication for commercial use must be authorized by [facility]. Selected Revisions: November 12, 2018. AHFS?? Patient [...] Description 12/06/2024 1:40 PM EDT Procedure Visit [facility] Medicine & Rehabilitation Clinic at [facility] [address] [place] [address] Bang Valle S, DO [address] [place] [address] 12/11/2024 10:40 AM EDT Office Visit Chai Ewing [address] [place] [address] Porfirio Viveros MD [address] [address] 01/15/2025 1:30 PM EDT Clinical Support [facility] [address] [facility] 2nd [place] [address] 01/15/2025 3:00 PM EDT Appointment [facility] Radiology [address] [place] [address] 01/18/2025 3:10 PM EDT Office Visit [facility] [address] [facility] [place] [address] Divine Carpenter MD [address] [facility] [address] [place] [address] documented as of this encounter [...] AM EDT) Case Report Surgical Pathology Case: [id number] Authorizing Provider: Gil Hernandez MD Collected: 09/29/2024 1005 Ordering Location: [facility] Received: 09/29/2024 1217 Surgery Pathologist: Clarke Leal MD Specimen: Larynx, Yifan esophageal intriotus 10/03/2024 2:[address] [facility] Final Diagnosis A. YIFAN ESOPHAGEAL INTRIOTUS - BENIGN SQUAMOUS EPITHELIUM WITH HYPERKERATOSIS 10/03/2024 2:[address] [facility] at 1419 EDT Clinical Information Esophageal stenosis 10/03/2024 2:[address] [facility] Gross Description A. YIFAN ESOPHAGEAL INTRIOTUS Received in formalin labeled Yifan esophageal intriotus are multiple white-vang soft tissue fragments measuring less than 0.1 to 0.3 cm in greatest dimension. Entirely submitted in cassette A1. Cold Time: <1m Jennifer Sae Gipson 10/03/2024 2:[address] [facility] Note: A resident was involved in the service. I attest I examined the relevant preparations for the specimens and confirmed the diagnosis or interpretation. 10/03/2024 2:[address] [facility] Tissue Laryngeal structure / Unknown 09/29/2024 10:05 AM EDT 09/29/2024 12:17 PM EDT Comment:Pre-op diagnosis: Esophageal stenosis us Gil Hernandez MD LAB PATHOLOGY ORDERABLES Final R esult [facility] [address] [place] [address] documented in this encounter Visit Diagnoses Diagnosis Esophageal stenosis Stricture and stenosis of esophagus Esophageal stenosis Stricture and stenosis of esophagus documented in this encounter Administered Medications Inactive Administered Medications - up to 3 most recent administrations Medication Order MAR Action Action Date Dose Rate Site dexamethasone (PF) (Decadron) injection As needed, Starting on Wed09/29/24 at 0957, Until Wed09/29/24 at 1012, Routine, Intraprocedure Given 09/29/2024 9:57 AM EDT 0.85 mg fentaNYL (Sublimaze) injection 25 mcg 25 mcg, [...] Given 09/29/2024 8:40 AM EDT 4 mg oxymetazoline (Afrin) 0.05 % nasal spray As needed, Starting on Wed09/29/24 at 0948, Until Wed09/29/24 at 1012, Routine, Intraprocedure Given 09/29/2024 9:48 AM EDT 15 mL scopolamine (Transderm-Scop) patch 1 patch 1 patch, [...] Preprocedure, line care sterile water irrigation solution As needed, Starting on Wed09/29/24 at 1000, Until Wed09/29/24 at 1014, Routine Given 09/29/2024 10:00 AM EDT 1,000 mL documented in this encounter Active and Recently Administered Medications Times are shown in EDT. Scheduled Medication Order 09/27/2024 09/28/2024 09/29/2024 ondansetron ODT (Zofran-ODT) disintegrating tablet 4 mg (COMPLETED) 4 mg, Oral, Once, 1 dose, On Wed09/29/24 at 0900, Routine, Holding - Preprocedure 0840 (Given - Provid er: January Jeffries, JONATHAN) scopolamine (Transderm-Scop) patch 1 patch 1 patch, [...] as of this encounter Care Teams Mechanical Equipment Test Engineer Relationship Specialty Start Date End Date Kizzy Gaspar MD [address] [place] [address] PCP - General 09/22/24 Shun Hurst MD [address] [place] [address] Surgeon Neurosurgery 02/24/21 Divine Carpenter MD [address] [facility] [address] [place] [address] Medical Oncologist Medical Oncology 06/13/21 Ambika Cain CF-SHOE TRIMMER Speech Language Pathologist Speech Pathology 10/06/23 Monique Jain RN Registered Nurse Hematology and Oncology 08/31/24 documented as of this encounter
--- OUTSIDE RECORDS SUMMARY | 2024-09-29 09:29 | XMS_ITS | Encounter Summary ---
Author Organization Healthcare Address [address] [id number] Care Team Providers Care Clay Stain Mixer Name Role Phone Shun Hurst MD Unavailable [phone] Divine Carpenter MD Unavailable [phone] Ambika Cain CF-CALCULUS TEACHER Unavailable Unavailab Monique Flannery RN Unavailable Unavailable Kizzy Gaspar MD Primary Care Provider [phone] Reason for Visit * Auth/Cert (Routine) Specialty Diagnoses / Procedures Referred By Contac t Referred To Contact Diagnoses Esophageal stenosis Esophageal stenosis Procedures IN LARYNGOSCOPY,DIRCT,OP SCOP,EXC TUMR IN LARYNGOSCOPY,DIRECT,SCOPE,INJ CORDS IN ESOPHAGOSCOPY FLEXIBLE TRANSORAL DIAGNOSTIC IN ESOPHAGOSCOPY FLEX BALLOON DILAT <30 MM DIAM IN ESOPHAGOSCOPY DILATE ESOPHAGUS BALLOON 30 MM IN DEXAMETHASONE SODIUM PHOS IN INJECTION,ONABOTULINUMTOXINA FLEXIBLE ESOPHAGOSCOPY WITH BALLOON DILATION INJECTION OF STEROIDS SUPER DILATION CO2 LASER LYSIS OF SCAR BAND, BOTOX TO ANY SPHINCTER MUSCLE, DECADRON 10mg/ml, 1cc TO ESOPHGEAL ENTRANCE/SCAR Gil Hernandez MD [address] [facility] [address] [place] [address] Phone: tel: fax: [facility] [address] [place] [address] Phone: tel: Referral ID Status Reason Start Date Expiration Date Visits Re quested Visits Authorized [id number] 1 1 Encounter Details Date Type Department Care Team (Late st Contact Info) Description 09/29/2024 9:29 AM EDT Anesthesia Event [facility] [address] [place] [address] Blank Lemon MD [address] [place] [address] Anesthesia Record Procedure Summary Procedure Name Responsible [...] acknowledgement of understanding. 1021 An Stop Meds Name Total fentaNYL (Sublimaze) injection 50 mcg/mL 100 mcg lidocaine PF (Xylocaine-MPF) 2% 80 mg propofol (Diprivan) injection 10 mg/mL 2 00 mg rocuronium (ZeMuron) injection 10 mg/mL 25 mg dexamethasone (Decadron) injection 4 mg/ mL 8 mg ePHEDrine injection prefilled syringe 5 mg/mL 15 mg phenylephrine (Scott-Synephrine) prefilled syringe 1 mg/10 mL 200 mcg ondansetron (Zofran) injection 2 mg/mL 4 mg sugammadex (Bridion) injection 100 mg/mL 200 mg ampicillin-sulbactam (Unasyn) vial 3 g 3 g lactated Ringer's infusion 500 mL * Agents No agents on file. [...] of a prolonged period with no assessments.); 224; No Documenta 02/19/22 1014 by Guillermina Sanchez RN 10/29/24 224 by Ip, Background User Wound 07/30/23; N; Yes; Incision; Throat; 10/29/24 (Removed automatically on 10/30/2024 because of a prolonged period with no assessments.); 224; No Documenta 07/30/23 0000 by Dalila Srinivasan RN 10/29/24 224 by Ip, Background User Peripheral IV Placement [...] No change to dentition. ; Placed by: GOLD LEAF GILDER; Removal Date: 09/29/24; Removal Time: 1009 09/29/24 [...] PM EDT documented as of this encounter Functional Status * Calculated C-SSRS [...] Jeffries RN documented as of this encounter Miscellaneous Notes * Anesthesia Postprocedure Evaluation - Shaun Tapia CRNA, DNP - 09/29/2024 10:21 AM EDT Patient: Anibal Barreto Anesthesia Type: general Vitals Value Taken Time BP 143/73 09/29/24 10:15 Temp 36.1 ??C (97 ??F) 09/29/24 10:13 Pulse 64 09/29/24 10:19 Resp 17 09/29/24 10:19 SpO2 94 % 09/29/24 10:19 Vitals shown include unfiled device data. Anesthesia Post Evaluation Patient location during evaluation: PACU Patient participation: complete - patient participated Level of consciousness: awake Pain management: adequate (pain score 0-3) Airway patency: tracheostomy Cardiovascular status: acceptable and hemodynamically stable Respiratory status: acceptable, blow-by oxygen and spontaneous ventilation Hydration status: acceptable Nausea/Vomiting: No No notable events documented. * Anesthesia Procedure Notes - Shaun Tapia CRNA, DNP - 09/29/2024 9:46 AM EDTAssociated Order(s): Airway Airway Date/Time: 09/29/2024 9:39 AM Reason: elective Airway not difficult General Information and Staff Patient location during procedure: OR GOLD LEAF GILDER: Shaun Tapia CRNA, DNP Performed: DIANE Patient Condition Indications for airway management: anesthesia Patient position: sniffing Final Airway Details Final airway type: endotracheal airway Successful airway: ETT and MANAGER MAIL Cuffed: yes Successful intubation technique: blind Adjuncts used in placement: intubating stylet Endotracheal tube insertion site: tracheostomy Blade: La ETT size (mm): 6.0 Placement verified by: chest auscultation and capnometry Measured from: stoma Additional Comments Atraumatic. No change to dentition. 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 HEENT: difficulty swallowing. Gastrointestinal: GERD: well controlled. Hematological/Lymphatic: History of DVT. Clinical information reviewed: Allergies NPO Status Physical Exam Airway Tracheostomy tube present Cardiovascular Rhythm: regular Rate: normal Dental (+) edentulous Pulmonary Breath sounds clear to auscultation Neurological Oriented: normal to time, normal to place and normal to person and oriented to person, place and time Skin Musculoskeletal Extremities Anesthesia Plan ASA 3 Plan was reviewed with: GOLD LEAF GILDER Anesthesia technique(s) discussed with the patient/family: general Anesthesia plan agreed upon was: general Anesthetic plan and risks discussed with patient. Additional Equipment Requests documented in this encounter Plan of Treatment Upcoming Encounters Date Type Department Care Team (Late st Contact Info) Description 12/06/2024 1:40 PM EDT Procedure Visit Physical Medicine & Rehabilitation Clinic at [facility] [address] [facility] [place] [address] Bang Valle S, DO [address] [place] [address] 12/11/2024 10:40 AM EDT Office Visit Chai Ewing [address] [place] [address] Porfirio Viveros MD [address] [address] 01/15/2025 1:30 PM EDT Clinical Support [facility] [address] [facility] [place] [address] 01/15/2025 3:00 PM EDT Appointment [facility] Radiology [address] [place] [address] 01/18/2025 3:10 PM EDT Office Visit Pav [facility] [address] [facility] [place] [address] Divine Carpenter MD [address] [place] [address] Diane Zuniga [facility] [address] [place] [address] documented as of this encounter Procedures Procedure Name Priority Date/Time Associated Diagnosis Comments PB ANESTHESIA PLACEHOLDER Routine 09/29/2024 9:39 AM EDT IN AN ELECTIVE ENDOTRACHEAL AIRWAY Routine 09/29/2024 9:39 AM EDT documented in this encounter Results * IN AN ELECTIVE ENDOTRACHEAL AIRWAY, PB ANESTHESIA PLACEHOLDER (09/29/2024 9:39 AM EDT) Narrative Shaun Tapia CRNA, DNP - 09/29/2024 9:39 AM EDT Shaun Tapia CRNA, DNP 09/29/2024 9:47 AM Airway Date/Time: 09/29/2024 9:39 AM Reason: elective Airway not difficult General Information and Staff Patient location during procedure: OR GOLD LEAF GILDER: Shaun Tapia CRNA, DNP Performed: DIANE Patient Condition Indications for airway management: anesthesia Patient position: sniffing Final Airway Details Final airway type: endotracheal airway Successful airway: ETT and MANAGER MAIL Cuffed: yes Successful intubation technique: blind Adjuncts used in placement: intubating stylet Endotracheal tube insertion site: tracheostomy Blade: La ETT size (mm): 6.0 Placement verified by: chest auscultation and capnometry Measured from: stoma Additional Comments Atraumatic. No change to dentition. Blank Lemon MD ANESTHESIA ORDERABLES Final Result documented in this encounter Visit Diagnoses Not on filedocumented in this encounter Administered Medications Inactive Administered Medications - up to 3 most recent administrations Medication Order MAR Action Action Date Dose Rate Site ampicillin-sulbactam (Unasyn) injection Intravenous, As needed, Starting on Wed09/29/24 at 0944, Until Wed09/29/24 at 1021, Routine, Anesthesia Intraprocedure Given 09/29/2024 9:44 AM EDT 3 g dexamethasone (Decadron) injection Intravenous, As needed, Starting on Wed09/29/24 at 0949, Until Wed09/29/24 at 1021, Routine, Anesthesia Intraprocedure Given 09/29/2024 9:49 AM EDT 8 mg ePHEDrine Sulfate (Akovaz) injection Intravenous, As needed, Starting on Wed09/29/24 at 0944, Until Wed09/29/24 at 1021, Routine, Anesthesia Intraprocedure Given 09/29/2024 9:56 AM EDT 5 mg Given 09/29/2024 9:44 AM EDT 10 mg fentaNYL (Sublimaze) injection Intravenous, As needed, Starting on Wed09/29/24 at 0938, Until Wed09/29/24 at 1021, Routine, Anesthesia Intraprocedure Given 09/29/2024 10:05 AM EDT 50 mcg Given 09/29/2024 9:38 AM EDT 50 mcg lactated Ringer's infusion Intravenous, Continuous PRN, Starting on Wed09/29/24 at 0929, Until Wed09/29/24 at 1021, Routine New Bag 09/29/2024 9:29 AM EDT lidocaine PF (Xylocaine) 2 % injection Intravenous, As needed, Starting on Wed09/29/24 at 0938, Until Wed09/29/24 at 1021, Routine, Anesthesia Intraprocedure Given 09/29/2024 9:38 AM EDT 80 mg ondansetron (Zofran) injection Intravenous, As needed, Starting on Wed09/29/24 at 0949, Until Wed09/29/24 at 1021, Routine, Anesthesia Intraprocedure Given 09/29/2024 9:49 AM EDT 4 mg phenylephrine in NS (Scott-Synephrine) 100 mcg/mL prefilled syringe Intravenous, As needed, Starting on Wed09/29/24 at 0944, Until Wed09/29/24 at 1021, Routine, Anesthesia Intraprocedure Given 09/29/2024 9:56 AM EDT 100 mcg Given 09/29/2024 9:44 AM EDT 100 mcg propofol (Diprivan) injection Intravenous, As needed, Starting on Wed09/29/24 at 0938, Until Wed09/29/24 at 1021, Routine, Anesthesia Intraprocedure Given 09/29/2024 9:38 AM EDT 200 mg rocuronium (ZeMuron) injection Intravenous, As needed, Starting on Wed09/29/24 at 0938, Until Wed09/29/24 at 1021, Routine, Anesthesia Intraprocedure Given 09/29/2024 9:38 AM EDT 25 mg sugammadex (Bridion) 100 MG/ML injection Intravenous, As needed, Starting on Wed09/29/24 at 1005, Until Wed09/29/24 at 1021, Routine, Anesthesia Intraprocedure Given 09/29/2024 10:05 AM EDT 200 mg documented in this encounter Additional Health Concerns Assessment Noted Time A fall risk assessment has been complete d for the patient 08/28/2024 2:26 PM EDT A Body Mass Index follow-up plan has been documented for the patient 09/17/2024 4:12 PM EDT documented as of this encounter Care Teams Clay Stain Mixer Relationship Specialty Start Date End Date Kizzy Gaspar MD [address] [place] [id number] PCP - General 09/22/24 Shun Hurst MD [address] [facility] [address] [place] [address] Surgeon Neurosurgery 02/24/21 Divine Carpenter MD [address] [facility] [address] [place] [address] Medical Oncologist Medical Oncology 06/13/21 Ambika Cain, CF-CALCULUS TEACHER Speech Language Pathologist Speech Pathology 10/06/23 Monique Jain, RN Registered Nurse Hematology and Oncology 08/31/24 documented as of this encounter
--- OUTSIDE RECORDS SUMMARY | 2024-11-15 14:02 | XMS_ITS | Encounter Summary ---
Author Organization Healthcare Address [address] [id number] Care Team Providers Care Orchestra Musician Name Role Phone Michele Wright MD Primary Care Provider + [phone] Shun Hurst MD Unavailable [phone] Divine Carpenter MD Unavailable [phone] Ambika Cain CF-CONDITIONER TUMBLER OPERATOR Unavailable Unavailab Monique Flannery RN Unavailable Unavailable Encounter Details Date Type Department Care Team (Late st Contact Info) Description 08/15/2024 Telephone [facility] [address] [place] [address] Divine Carpenter MD 800 [facility] [address] [place] [address] Social History Tobacco Use Types [...] encounter Miscellaneous Notes * Telephone Encounter - Monique Jain, RN - 08/17/2024 3:41 PM EDT New MD order faxed to [phone] * Telephone Encounter - Denisa Keith - 08/15/2024 1:00 PM EDT Patient Phone Message Reason for Call:rocio martinez is need an new order for port cath flushes fax [phone] Best contact number and optimal time of day to reach caller:[phone] Note: Please do not reply to this message. Follow-up communication and further actions as a result of this message need to be communicated with the patient directly, if the patient is not active onMyChart. If the patient is active on MyChart, they will receive notification of the communication/outcome via [employer]. documented in this encounter Plan of Treatment Upcoming Encounters Date Type Department Care Team (Late st Contact Info) Description 12/06/2024 1:40 PM EDT Procedure Visit [facility] [address] [facility] [place] [phone] Bang Valle, DO 2049 [place] [address] 12/11/2024 10:40 AM EDT Office Visit Chai Ewing [address] [place] [address] Porfirio Viveros MD [address] [address] 01/15/2025 1:30 PM EDT Clinical Support [facility] Res[facility] [address], [address] [place] [address] 01/15/2025 3:00 PM EDT Appointment [facility] G Radiology [address] [place] [address] 01/18/2025 3:10 PM EDT Office Visit [facility] Res[facility] 800 [facility], 2nd [place] [address] Divine Carpenter MD 800 [facility] [address] [facility] 134 [place] [address] documented as of this encounter Visit Diagnoses Not on filedocumented in this encounter Additional Health Concerns Assessment Noted Time A fall risk assessment has been complete d for the patient 07/20/2024 2:12 PM EST A Body Mass Index follow-up plan has been documented for the patient 07/18/2024 1:05 AM EST documented as of this encounter Care Teams Orchestra Musician Relationship Specialty Start Date End Date Michele Wright MD [address] [place] [address] PCP - General 10/11/20 09/21/24 Shun Hurst MD [id number] [place] [address] Surgeon Neurosurgery 02/24/21 Divine Carpenter MD 800 [facility] [place] 134 [place] [address] Medical Oncologist Medical Oncology 06/13/21 Ambika Cain, CF-CONDITIONER TUMBLER OPERATOR Speech Language Pathologist Speech Pathology 10/06/23 Monique Jain, JONATHAN Registered Nurse Hematology and Oncology 08/31/24 documented as of this encounter
--- OUTSIDE RECORDS SUMMARY | 2024-11-15 14:02 | XMS_ITS | Encounter Summary ---
Author Organization Healthcare Address [address] [place] [address] Care Team Providers Care Senior Tableau Developer Name Role Phone Shun Hurst MD Unavailable [phone] Divine Carpenter MD Unavailable [phone] Ambika Cain CF-TOW CAR DRIVER Unavailable Unavailab Monique Flannery RN Unavailable Unavailable Kizzy Gaspar MD Primary Care Provider [phone] Encounter Details Date Type Department Care Team (Late st Contact Info) Description 10/04/2024 Refill [facility] Res[facility] [address], [address]nd [place] [address] Divine Carpenter MD [address] [facility] [address] [place] [address] Neoplasm related pain Social History [...] Visit [facility] at [facility] [address] [place] [address] Bang Valle S, DO [address] [place] [address] 12/11/2024 10:40 AM EDT Office Visit Chai Ewing [address] [place] [address] Porfirio Viveros MD [address] [address] 01/15/2025 1:30 PM EDT Clinical Support [facility] Respiratory 800 [facility] 2nd [place] [address] 01/15/2025 3:00 PM EDT Appointment PAV G Radiology [address] [place] [address] 01/18/2025 3:10 PM EDT Office Visit [facility] Respiratory [address] [phone] Divine Carpenter MD [address] [facility] 134 [place] [address] documented as of this encounter [...] as of this encounter Care Teams Senior Tableau Developer Relationship Specialty Start Date End Date Kizzy Gaspar MD [address] [place] [address] PCP - General 09/22/24 Shun Hurst MD [address] [facility] [address] [place] [address] Surgeon Neurosurgery 02/24/21 Divine Carpenter MD [address] Diane Zuniga [facility] 134 [place] [address] Medical Oncologist Medical Oncology 06/13/21 Ambika Cain, SHAW-TOW CAR DRIVER Speech Language Pathologist Speech Pathology 10/06/23 Monique Jain, RN Registered Nurse Hematology and Oncology 08/31/24 documented as of this encounter
--- OUTSIDE RECORDS SUMMARY | 2024-11-15 14:02 | XMS_ITS | Encounter Summary ---
Author Organization Healthcare Address [address] [place] [address] Care Team Providers Care Digital Editor Name Role Phone Michele Wright MD Primary Care Provider [phone] Shun Hurst MD Unavailable [phone] Divine Carpenter MD Unavailable [phone] Ambika Cain CF-CONSUMER AFFAIRS MANAGER Unavailable Unavailab Monique Flannery RN Unavailable Unavailable Kizzy Gaspar MD Primary Care Provider [phone] Reason for Referral * Consultation (Routine) - Closed Specialty Diagnoses / Procedures Referred By Ortega harden Referred To Contact Hand Surgery Diagnoses Paresthesia and pain of both upper extremities Tanika Ortiz APRN [address] [place] [address] Phone: tel: fax: [facility] [address] [place] [address] Phone: tel: fax: Referral ID Status Reason Start Date Expiration Date V isits Requested Visits Authorized [id number] Closed Specialty Services Required 08/07/2024 02/06/2026 1 1 Encounter Details Date Type Department Care Team (Late st Contact Info) Description 08/07/2024 [facility] 800 [place] [address] Tanika Ortiz APRN [address] [place] [address] Paresthesia and pain of both upper extremities (Primary Dx) Social History Tobacco Use Types [...] [facility] [address] [facility] [place] [address] Bang Valle S, DO 2049 [place] [address] 12/11/2024 10:40 AM EDT Office Visit Chai Ewing [address] [place] [address] Porfirio Viveros MD [address] [address] 01/15/2025 1:30 PM EDT Clinical Support [facility] Res[facility] 800 [facility], [address]nd [place] [address] 01/15/2025 3:00 PM EDT Appointment P[facility] G Radiology [address] [place] [address] 01/18/2025 3:10 PM EDT Office Visit [facility] Res[facility] 800 [facility], [address] [place] [address] Divine Carpenter MD 800 [facility] 134 [place] [address] Scheduled Referrals Name Type Priority Associated Diagnoses Orde r Schedule Ambulatory referral to Hand Surgery Outpatient Referral Routine Paresthesia and pain of both upper extremities Expected: 08/07/2024 (Approximate), Expires: 02/07/2026 documented as of this encounter Visit Diagnoses Diagnosis Paresthesia and pain of both upper extremities- Primary documented in this encounter Additional Health Concerns Assessment Noted Time A fall risk assessment has been complete d for the patient 07/20/2024 2:12 PM EST A Body Mass Index follow-up plan has been documented for the patient 07/18/2024 1:05 AM EST documented as of this encounter Care Teams Digital Editor Relationship Specialty Start Date End Date Michele Wright MD [address] [place] [address] PCP - General 10/11/20 09/21/24 Kizzy Gaspar MD [address] [place], [place] [phone] PCP - General 09/22/24 Shun Hurst MD [address] [place] [address] Surgeon Neurosurgery 02/24/21 Divine Carpenter MD 800 [facility] [address] [place] [address] Medical Oncologist Medical Oncology 06/13/21 Ambika Cain, SHAW-CONSUMER AFFAIRS MANAGER Speech Language Pathologist Speech Pathology 10/06/23 Monique Jain, JONATHAN Registered Nurse Hematology and Oncology 08/31/24 documented as of this encounter
--- OUTSIDE RECORDS SUMMARY | 2024-11-15 14:02 | XMS_ITS | Encounter Summary ---
Author Organization Healthcare Address [address] [id number] Care Team Providers Care Switch Box Installer Name Role Phone Shun Hurst MD Unavailable [phone] Divine Carpenter MD Unavailable [phone] Ambika Cain CF-DEPUTY DISTRICT CUSTOMS DIRECTOR Unavailable Unavailab Monique Flannery RN Unavailable Unavailable Kizzy Gaspar MD Primary Care Provider [phone] Reason for Visit * Reason Onset Date Comments Med Refill 09/25/2024 Encounter Details Date Type Department Care Team (Late Contact Info) Description 09/25/2024 Refill [facility] [address], [address] [place] [address] Monique Jain, RN Neoplasm related pain Social History Tobacco Use [...] Department Care Team (Late Contact Info) Description 12/06/2024 1:40 PM EDT Procedure Visit [facility] at [facility] [address] [place] [place] [address] Bang Valle, [address] [place] [address] 12/11/2024 10:40 AM EDT Office Visit Chai Ewing [address] [place] [address] Porfirio Viveros MD [address] [address] 01/15/2025 1:30 PM EDT Clinical Support [facility] Head[facility]ck [facility] Respiratory 800 [facility], 2nd [place] [address] 01/15/2025 3:00 PM EDT Appointment P[facility] G Radiology [address] [place] [address] 01/18/2025 3:10 PM EDT Office Visit [facility] Head[facility] Neck [facility] Respiratory 800 [facility], [address] [place] [address] Divine Carpenter MD 800 [facility] [address] [place] [address] documented [...] documented as of this encounter Care Teams Switch Box Installer Relationship Specialty Start Date End Date Kizzy Gaspar MD [address] [place] [address] PCP - General 09/22/24 Shun Hurst MD [address] [facility] [address] [place] [address] Surgeon Neurosurgery 02/24/21 Divine Carpenter MD 800 [facility] Diane Zuniga [address] [address] Medical Oncologist Medical Oncology 06/13/21 Ambika Cain CF-DEPUTY DISTRICT CUSTOMS DIRECTOR Speech Language Pathologist Speech Pathology 10/06/23 Monique Jain, RN Registered Nurse Hematology and Oncology 08/31/24 documented as of this encounter
--- OUTSIDE RECORDS SUMMARY | 2024-11-15 14:03 | XMS_ITS | Encounter Summary ---
Author Organization Healthcare Address [address] [id number] Care Team Providers Care Spiral Spring Winder Name Role Phone Michele Wright MD Primary Care Provider [phone] Edgar Szymanski MD Unavailable [phone] Shun Hurst MD Unavailable [phone] Divine Carpenter MD Unavailable [phone] Ambika Cain CF-PROCESS CAMERA OPERATOR Unavailable Unavailab Monique Flannery RN Unavailable Unavailable Kizzy Gaspar MD Primary Care Provider [phone] Encounter Details Date Type Department Care Team (Late st Contact Info) Description 12/19/2020 Lab Requisition [facility] H Lab 800 [place] [address] Divine Carpenter MD 800 [facility] 134 [place] [address] Malignant neoplasm of larynx, unspecified (CMS/HCC) Social [...] Visit [facility] at [facility] [address] [place] [address] Bang Valle, DO [address] [place] [address] 12/11/2024 10:40 AM EDT Office Visit Chai Gildardo [address] [place] [address] Porfirio Viveros MD [address] [place] [address] [address] 01/15/2025 1:30 PM EDT Clinical Support [facility] Head[facility] Neck [facility] Respiratory 800 [facility], 2nd [place] [address] 01/15/2025 3:00 PM EDT Appointment PAV G Radiology [address] [place] [address] 01/18/2025 3:10 PM EDT Office Visit [facility] Head[facility] Neck & Respiratory 800 [facility], 2nd [place] [address] Divine Carpenter MD 800 [facility] [address] [place] [address] documented as of this encounter Procedures Procedure Name Priority Date/Time Associated Diagnosis Comments AP MISCELLANEOUS LAB TEST (SO) Routine 12/03/2020 12:00 AM EDT Malignant neoplasm of larynx, unspecified (CMS/HCC) documented in this encounter Results * - Miscellaneous Test (12/03/2020 12:00 AM EDT) Test name [facility] Brigida CDX 12/31/2020 12:[address] [facility] Test Result See Scan 12/31/2020 12:[address] [facility] See Scanned Result 12/31/2020 12:[address] [facility] Tissue 12/03/2020 12/19/2020 11: 50 AM EDT us Divine Carpenter MD LAB REF LAB BLOOD AND FLUID ORD Final Result [facility] documented in this encounter Visit [...] and sent to appropriate Health [facility] Spar Cap Beveler: Doyle 06/12/2021 06/12/2021 07/03/2021 5: 23 AM EST Assessment Noted Time A fall risk assessment has been complete d for the patient 11/26/2020 2:59 PM EDT documented as of this encounter Care Teams Spiral Spring Winder Relationship Specialty Start Date End Date Michele Wright MD [address] [place] [address] PCP - General 10/11/20 09/21/24 Kizzy Gaspar MD [address] [place] [address] PCP - General 09/22/24 Edgar Szymanski MD [address] [place] [address] Radiation Oncologist Radiation Therapy 03/14/20 4 Shun Hurst MD [address] [facility] [address] [place] [address] Surgeon Neurosurgery 02/24/21 Divine Carpenter MD 800 [facility] 134 [place] [address] Medical Oncologist Medical Oncology 06/13/21 Ambika Cain, CF-PROCESS CAMERA OPERATOR Speech Language Pathologist Speech Pathology 10/06/23 Monique Jain, RN Registered Nurse Hematology and Oncology 08/31/24 documented as of this encounter
--- OUTSIDE RECORDS SUMMARY | 2024-11-15 14:03 | XMS_ITS | Encounter Summary ---
Author Organization Healthcare Address [address] [place] [address] Care Team Providers Care Scada Technician Name Role Phone Shun Hurst MD Unavailable [phone] Divine Carpenter MD Unavailable [phone] Ambika Cain CF-IMPREGNATOR OPERATOR Unavailable Unavailab Monique Flannery RN Unavailable Unavailable Kizzy Gaspar MD Primary Care Provider [phone] Encounter Details Date Type Department Care Team (Latest Contact Info) Description 09/25/2024 Travel Social History Tobacco Use Types Packs/Day [...] Visit [facility] at [facility] [address] [place] [address] Bang Valle S, DO [address] [place] [address] 12/11/2024 10:40 AM EDT Office Visit [facility] [address] [place] [address] Porfirio Viveros MD [address] [phone] 01/15/2025 1:30 PM EDT Clinical Support [facility]ck [facility] Respiratory 800 [facility], 2nd [place] [address] 01/15/2025 3:00 PM EDT Appointment PAV G Radiology [address] [place] [address] 01/18/2025 3:10 PM EDT Office Visit Pav [facility] Head[facility] Neck & Respiratory 800 [facility], [address] [place] [address] Divine Carpenter MD 800 [facility] 134 [place] [address] documented as of this encounter Visit Diagnoses Not on filedocumented in this encounter Additional Health Concerns Assessment Noted Time A fall risk assessment has been complete d for the patient 08/28/2024 2:26 PM EDT A Body Mass Index follow-up plan has been documented for the patient 09/17/2024 4:12 PM EDT documented as of this encounter Care Teams Scada Technician Relationship Specialty Start Date End Date Kizzy Gaspar MD [address] [place], [place] [phone] PCP - General 09/22/24 Shun Hurst MD [address] [facility] [address] [place] [address] Surgeon Neurosurgery 02/24/21 Divine Carpenter MD 800 [facility] Diane Zuniga [facility] 134 [place] [address] Medical Oncologist Medical Oncology 06/13/21 Ambika Cain, SHAW-IMPREGNATOR OPERATOR Speech Language Pathologist Speech Pathology 10/06/23 Monique Jain RN Registered Nurse Hematology and Oncology 08/31/24 documented as of this encounter
--- OUTSIDE RECORDS SUMMARY | 2024-11-15 14:03 | XMS_ITS | Clinical Summary ---
Author Organization Healthcare Address [address] [place] [address] Care Team Providers Care Head Inspector And Center Marker Name Role Phone Shun Hurst MD Unavailable [phone] Divine Carpenter MD Unavailable [phone] Ambika Cain-CAREER TECHNOLOGY TEACHER Unavailable Unavailab Monique Flannery RN Unavailable Unavailable Kizzy Gaspar MD Primary Care Provider [phone] Allergies Active Allergy Reactions Criticality Noted Date [...] chemo for 3 days. 30 tablet 5 07/12/19 24 Active Additional Information Patient taking differently:8 mg OralAs needed, Starting day after chemo for 3 days., Reported on 09/29/2024 omeprazole (PriLOSEC) [address] capsule Take 1 capsule (40 mg) by mouth 1 (one) time each day. Do not crush or chew. 90 capsule 3 11/01/19 24 Active naloxone (Narcan) 4 mg/0.1 mL nasal sprayIndications :Neoplasm related pain 1. Give 1 spray in nostril for no/slow breathing or cannot wake after opioid use 2. Call 911 3. Repeat in other nostril if symptoms continue 1 each 11/29/19 24 Active Additional Information Patient taking differently:4 mg Nasal As needed, opioid related breathing emergency,On hand, not taking, Reported on 09/13/2024 tamsulosin (Flomax) 0.4 MG 24 hr capsule Take 1 capsule (0.4 mg) by mouth every night. 90 capsule 1 03/01/20 24 Active lisinopril-hydro CHLOROthiazide 20-25 MG tabletIndication s:Primary hypertension TAKE 1 TABLET BY MOUTH EVERY DAY 90 tablet 1 03/21/20 24 Active amLODIPine (Norvasc) 2.5 MG tablet TAKE 1 TABLET BY MOUTH EVERY DAY 90 tablet 1 03/21/20 24 Active atorvastatin (Lipitor) 20 MG tablet TAKE 1 TABLET BY MOUTH EVERY DAY 90 tablet 05/15/20 24 Active fluconazole (Diflucan) 200 MG tablet 01/17/20 24 Active levothyroxine (Synthroid, Levoxyl) 125 MCG tablet Take 1 tablet (125 mcg) by mouth daily. 90 tablet 1 07/20/19 25 Active gabapentin (Neurontin) 600 MG tabletIndication s:Neoplasm related pain Take 1 tablet by mouth 4 times a day. 120 tablet 2 09/26/19 25 Active ALPRAZolam (Xanax) 1 MG tablet TAKE 1 TABLET BY MOUTH TWO TIMES A DAY 60 tablet 10/05/19 25 Active oxyCODONE (Roxicodone) 30 MG immediate release tabletIndication s:Neoplasm related pain Take 1 tablet by mouth every 3 hours as needed for severe pain. 240 tablet 10/31/19 25 025 Active oxyCODONE (Roxicodone) 30 MG immediate release tabletIndication s:Neoplasm related pain Take 1 tablet by mouth every 3 hours as needed for severe pain. 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 Diabetes mellitus 04/12/2017 Cancer of larynx 03/18/2017 Cancer Staging:Clinical stage from 02/19/2017:Stage ZULAY(cT3, cN2c, cM0) - Signed by Divine Carpenter MD on 10/14/2020 Pathologic stage from 03/22/2018:Stage III(rpT3, rpN0, rcM0) - Signed by Divine Carpenter MD on 10/14/2020 Pathologic stage from 11/21/2019:Stage IVC(rpTX, rpNX, rpM1) - Signed by Divine Carpenter MD on 10/14/2020 Dysphagia, pharyngeal 03/17/2017 Resolved Problems Problem Noted Date Diagnosed Date Resolved Date Second hand smoke exposure 06/30/2021 0 07/21/2021 Acute COVID-19 06/12/2021 06/16/2021 Dysphagia causing pulmonary aspiration with swallowing 04/22/2021 04/11/2022 Asymmetric SNHL (sensorineural hearing loss) 7 07/21/2021 Subjective tinnitus of left ear 04/07/2017 07/21/2021 Encounters Date Type Department Care Team Description 10/04/2024 Refill [facility] [address] [facility], [address]nd [place] [address] Divine Carpenter MD Neoplasm related pain 09/29/2024 9:29 AM EDT Anesthesia Event [facility] [address] [place] [phone] Blank Lemon MD Harward, Amy E, PA 09/29/2024 9:15 AM EDT - 09/29/2024 10:40 AM EDT Surgery [facility] [address] [place] [address] Gil Hernandez MD FLEXIBLE ESOPHAGOSCOPY WITH BALLOON DILATION 09/29/2024 7:33 AM EDT - 09/29/2024 11:35 AM EDT Hospital Encounter [facility] [address] [place] [address] Gil Hernandez MD Esophageal stenosis Discharge Disposition: Home or Self Care 09/29/2024 Travel 09/25/2024 3:45 PM EDT Pre-Admission Testing [facility] [address], [address] [place] [address] 09/25/2024 Travel 09/25/2024 Refill [facility] [address] [facility], [address]nd [place] [address] Monique Jain, RN Neoplasm related pain 09/13/2024 10:30 AM EDT Office Visit [facility] Otolaryngology [address], [address]rd [place] [address] Gil Hernandez MD Esophageal stenosis (Primary Dx); Cancer of larynx ([facility]/HCC); History of laryngectomy; Dysphagia, pharyngeal 09/13/2024 Travel 09/04/2024 3:00 PM EDT Office Visit [facility] Voice [address] [facility], [address]nd [place] [phone] Kenneth Leonardo Aphonia (Primary Dx) 09/04/[address] [facility] Otolaryngology [address], [address]rd [place] [address] Corry Aguilar 09/04/2024 Travel 08/31/2024 Refill [facility] [address] [place] [address] Monique Jain, RN Neoplasm related pain 08/28/2024 2:35 PM EDT - 08/28/2024 11:59 PM EDT Hospital Encounter [facility] [address], [address] [place] [address] Bilateral hand pain; Paresthesia and pain of both upper extremities Discharge Disposition: Home or Self Care 08/28/2024 2:30 PM EDT Office Visit [facility] [address] [place] [phone] Porfirio Viveros MD Paresthesia of right upper extremity (Primary Dx); Right upper extremity numbness 08/28/2024 Travel 08/27/2024 Travel 08/16/2024 Orders Only [facility] [address] [facility], [address] [place] [address] Monique Jain RN 08/15/2024 Telephone [facility] [address] [facility], [address] [place] [address] Divine Carpenter MD from Last 3 Months Family History Medical [...] Mass Index 28.22 09/29/2024 8:08 AM EDT Plan of Treatment Upcoming Encounters Date Type Department Care Team (Late st Contact Info) Description 12/06/2024 1:40 PM EDT Procedure Visit [facility] [address] [place] [address] Bang Valle, DO [address] [place] [address] 12/11/2024 10:40 AM EDT Office Visit [facility] Gildardo [address] [place] [address] Porfirio Viveros MD [address] [address] 01/15/2025 1:30 PM EDT Clinical Support [facility] [address] [facility], [address]nd [place] [address] 01/15/2025 3:00 PM EDT Appointment [facility] Radiology [address] [place] [phone] 01/18/2025 3:10 PM EDT Office Visit [facility] [address] [facility], [address]nd [place] [phone] Divine Carpenter MD [address] [facility] [address] [place] [address] Health Maintenance Due Date Last Done Comments [facility]-Diabetes: Hemoglobin A1C 1966 [facility]-Infant/Child/Adol SDOH Screenings 1966 Diabetes: Dental Exam 1976 [facility]- SDOH Screenings 1984 [facility]-Adult SDOH Screenings 1984 [facility]-DTaP,Tdap,and Td Vaccines (1 - Tdap) 1985 [facility]-Hepatitis B Vaccines (1 of 3 - 19+ 3-dose series) 1985 [facility]-Zoster Vaccines (1 of 2) 1985 CT Colonography 2011 Colonoscopy 2011 FIT-DNA 2011 FIT 2011 FOBT 2011 Sigmoidoscopy 2011 [facility]-Colorectal Cancer Screening 2011 [facility]-Pneumococcal Vaccine: 50+ Years (2 of 2 - PPSV23) 02/17/2017 12/23/2016 [id number] Vaccine (3 - Moderna risk series) 11/07/2020 10/10/2020, 09/12/2020 [facility]-Depression Screening 08/18/2022 08/18/2021, 11/0 05/2020 [facility]-Influenza Vaccine (Season Ended) 2025 05/19/2023, 05/12/2022, 02/21/2018 [facility]-HIV Screening Completed 06/12/2021 [facility]-Hepatitis C Screening Completed 06/12/2021 [facility]-Obesity Intervention Completed 025, 09/04/2024, 08/28/2024, Additional history exists HPV Vaccines Aged Out No longer eligi ble based on patient's age to complete this topic [facility]-HIB Vaccines Aged Out No longer e [...] this topic Medical Devices Implanted Type Area Flooring Installer Device Identifier Shelf Expiration Date Model / Serial / Lot Port Clearvue Power 8fr - [id number] Implanted:Qty: 1 on 03/06/2021 by Clyde Aguillon MD at [facility] [employer]-[id number] / / Description:8 Fr Single lume n power port, 25 cm length. Procedures Procedure Name Priority Date/Time Associated Diagnosis Comments SURGICAL PATHOLOGY EXAM Routine 09/30/19 25 10:05 AM EDT Esophageal stenosis PB ANESTHESIA PLACEHOLDER Routine 2024 9:39 AM EDT MD AN ELECTIVE ENDOTRACHEAL AIRWAY Routine 09/29/2024 9:39 AM EDT INJECTION, ONABOTULINUMTOXINA 09/29/2024 9:14 AM EDT Esophageal stenosis INJECTION, VOCAL CORD, LARYNGOSCOPIC 09/29/2024 9:14 AM EDT Esophageal stenosis ESOPHAGOSCOPY, WITH DILATION 09/29/2024 9:14 AM EDT Esophageal stenosis XR ELBOW RIGHT 3+ VIEWS Routine 08/29/19 25 2:48 PM EDT Bilateral hand pain Paresthesia and pain of both upper extremities XR HAND RIGHT 3+ VIEWS Routine 5 2:48 PM EDT Bilateral hand pain HEPATITIS C ANTIBODY - ED W/REFLEX TO HCV QUANT PCR STAT 06/12/2021 12:53 PM EST HIV 1/2 ANTIBODY/ANTIGEN SCREEN WITH REFLEX TO HIV I/II DIFFERENTIATION STAT 06/12/2021 12:53 PM EST from Last 3 Months or Most Recently Relevant to Health Maintenance Results * Surgical Pathology Exam (09/29/2024 10:05 AM EDT) Case Report Surgical Pathology Case: [id number] Authorizing Provider: Gil Hernandez MD Collected: 09/29/2024 1005 Ordering Location: [facility] Received: 09/29/2024 1217 Surgery Pathologist: Clarke Leal MD Specimen: Larynx, Scott esophageal intriotus 10/03/2024 2:19 PM EDT [facility] Final Diagnosis A. 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 SCOTT ESOPHAGEAL INTRIOTUS Received in formalin labeled Scott esophageal intriotus are multiple white-vang soft tissue fragments measuring less than 0.1 to 0.3 cm in greatest dimension. Entirely submitted in cassette A1. Cold Time: <1m Jennifer Gipson 10/03/2024 2:19 PM EDT [facility] Note: A resident was involved in the service. I attest I examined the relevant preparations for the specimens and confirmed the diagnosis or interpretation. 10/03/2024 2:19 PM EDT [facility] Tissue Laryngeal structure / Unknown 09/29/2024 10:05 AM EDT 09/29/2024 12:17 PM EDT Comment:Pre-op diagnosis: Esophageal stenosis us Gil Hernandez MD LAB PATHOLOGY ORDERABLES Final R esult [facility] [address] [place] [address] * MD AN ELECTIVE ENDOTRACHEAL AIRWAY, PB ANESTHESIA PLACEHOLDER (09/29/2024 9:39 AM EDT) Narrative Shaun Tapia CRNA, DNP - 09/29/2024 9:39 AM EDT Shaun Tapia CRNA, DNP 09/29/2024 9:47 AM Airway Date/Time: 09/29/2024 9:39 AM Reason: elective Airway not difficult General Information and Staff Patient location during procedure: OR DIAMOND SELECTOR: Shaun Tapia CRNA, DNP Performed: DIANE Patient Condition Indications for airway management: anesthesia Patient position: sniffing Final Airway Details Final airway type: endotracheal airway Successful airway: ETT and TUGBOAT CAPTAIN Cuffed: yes Successful intubation technique: blind Adjuncts used in placement: intubating stylet Endotracheal tube insertion site: tracheostomy Blade: La ETT size (mm): 6.0 Placement verified by: chest auscultation and capnometry Measured from: stoma Additional Comments Atraumatic. No change to dentition. us Blank Lemon MD ANESTHESIA ORDERABLES Final Result * XR Hand Right 3+ Views (08/28/2024 2:48 PM EDT) Anatomical Region Laterality Modality Upper Extremities, Hand Right Digital Radiography Impressions 08/28/2024 3:14 PM EDT 1. Degenerative enthesopathic changes of the elbow suggesting diffuse idiopathic skeletal hyperostosis. 2. Osteoarthritis of the right hand without acute osseous or articular abnormality. CRITICAL RESULT: No. COMMUNICATION: Per this written report. Drafted by Kei Clayton MD on 08/28/2024 3:09 PM Final report signed by Kei Clayton MD on 08/28/2024 3:14 PM Narrative 08/28/2024 3:14 PM EDT CLINICAL INDICATION: pain TECHNIQUE: XR HAND RIGHT 3+ VIEWS, XR ELBOW RIGHT 3+ VIEWS COMPARISON: None. FINDINGS: 3 views of the right elbow show normal elbow joint space and alignment. Degenerative enthesopathic changes at the lateral epicondyle, olecranon, coronoid process and radial tuberosity. No fracture or effusion. Soft tissues are normal. 3 views of the right hand show degenerative changes in the first through third metacarpal phalangeal joint. Degenerative changes are appreciated in the interphalangeal joints. No fracture or erosive changes. Soft tissues are normal. Procedure Note Kei Clayton MD - 08/28/2024 CLINICAL INDICATION: pain TECHNIQUE: XR HAND RIGHT 3+ VIEWS, XR ELBOW RIGHT 3+ VIEWS COMPARISON: None. FINDINGS: 3 views of the right elbow show normal elbow joint space and alignment.Degenerative enthesopathic changes at the lateral epicondyle, olecranon,coronoid process and radial tuberosity. No fracture or effusion. Softtissues are normal. 3 views of the right hand show degenerative changes in the first throughthird metacarpal phalangeal joint. Degenerative changes are appreciated inthe interphalangeal joints. No fracture or erosive changes. Soft tissuesare normal. IMPRESSION: 1.Degenerative enthesopathic changes of the elbow suggesting diffuseidiopathic skeletal hyperostosis. 2.Osteoarthritis of the right hand without acute osseous or articularabnormality. CRITICAL RESULT: No. COMMUNICATION: Per this written report. Drafted by Kei Clayton MD on 08/28/2024 3:09 PM Final report signed by Kei Clayton MD on 08/28/2024 3:14 PM Porfirio Viveros MD IMG XR PROCEDURES Final Resu lt * XR Elbow Right 3+ View (08/28/2024 2:48 PM EDT) Anatomical Region Laterality Modality Upper Extremities, Elbow Right Digital Radiography Impressions 08/28/2024 3:14 PM EDT 1. Degenerative enthesopathic changes of the elbow suggesting diffuse idiopathic skeletal hyperostosis. 2. Osteoarthritis of the right hand without acute osseous or articular abnormality. CRITICAL RESULT: No. COMMUNICATION: Per this written report. Drafted by Kei Clayton MD on 08/28/2024 3:09 PM Final report signed by Kei Clayton MD on 08/28/2024 3:14 PM Narrative 08/28/2024 3:14 PM EDT CLINICAL INDICATION: pain TECHNIQUE: XR HAND RIGHT 3+ VIEWS, XR ELBOW RIGHT 3+ VIEWS COMPARISON: None. FINDINGS: 3 views of the right elbow show normal elbow joint space and alignment. Degenerative enthesopathic changes at the lateral epicondyle, olecranon, coronoid process and radial tuberosity. No fracture or effusion. Soft tissues are normal. 3 views of the right hand show degenerative changes in the first through third metacarpal phalangeal joint. Degenerative changes are appreciated in the interphalangeal joints. No fracture or erosive changes. Soft tissues are normal. Procedure Note Kei Clayton MD - 08/28/2024 CLINICAL INDICATION: pain TECHNIQUE: XR HAND RIGHT 3+ VIEWS, XR ELBOW RIGHT 3+ VIEWS COMPARISON: None. FINDINGS: 3 views of the right elbow show normal elbow joint space and alignment.Degenerative enthesopathic changes at the lateral epicondyle, olecranon,coronoid process and radial tuberosity. No fracture or effusion. Softtissues are normal. 3 views of the right hand show degenerative changes in the first throughthird metacarpal phalangeal joint. Degenerative changes are appreciated inthe interphalangeal joints. No fracture or erosive changes. Soft tissuesare normal. IMPRESSION: 1.Degenerative enthesopathic changes of the elbow suggesting diffuseidiopathic skeletal hyperostosis. 2.Osteoarthritis of the right hand without acute osseous or articularabnormality. CRITICAL RESULT: No. COMMUNICATION: Per this written report. Drafted by Kei Clayton MD on 08/28/2024 3:09 PM Final report signed by Kei Clayton MD on 08/28/2024 3:14 PM us Porfirio Viveros MD IMG XR PROCEDURES Final Resu lt * HIV 1 & 2 Antibody/Antigen Screen (06/12/2021 12:53 PM EST) Pathologist [facility] HIV 1 & 2 Antibody/Anti gen Screen Nonreactive Nonreactive 06/12/2021 2:03 PM EST [facility] Blood Venous blood specimen / Unknown Venipuncture / Unknown 06/12/2021 12:53 PM EST 06/12/2021 1:07 PM EST us Berta Mohan MD LAB BLOOD ORDERABLES Final Res ult [facility] [address] [place] [address] * [place] Hepatitis C Antibody (06/12/2021 12:53 PM EST) Pathologist [facility] Hepatitis C Antibody Negative Negative 06/12/2021 2:02 PM EST HEALTHCARE LAB Blood Venous blood specimen / Unknown Venipuncture / Unknown 06/12/2021 12:53 PM EST 06/12/2021 1:07 PM EST Berta Mohan MD LAB BLOOD ORDERABLES Final Res ult [facility] [address] [place] [address] from Last 3 Months or Most Recently Relevant to Health Maintenance Insurance Advance Directives * DNR/DNI (Latest Code Status on File) Date Activated Date Inactivated Comments 06/12/2021 2:29 PM 06/16/2021 6:02 PM Question Answer Comments DNR determined on/before admission date? Yes Patient has decision-making capacity? Yes Care Teams Head Inspector And Center Marker Relationship Specialty Start Date End Date Kizzy Gaspar MD [address] [place], [place] [id number] PCP - General 09/22/24 Shun Hurst MD [address] [facility] [address] [place] [phone] Surgeon Neurosurgery 02/24/21 Divine Carpenter MD 800 [facility] [address] [place] [phone] Medical Oncologist Medical Oncology 06/13/21 Ambika Cain, SHAW-CAREER TECHNOLOGY TEACHER Speech Language Pathologist Speech Pathology 10/06/23 Monique Jain, RN Registered Nurse Hematology and Oncology 08/31/24
--- OUTSIDE RECORDS SUMMARY | 2024-11-15 14:03 | XMS_ITS | Encounter Summary ---
Author Organization Healthcare Address [address] [place] [address] Care Team Providers Care Licensed Investment Sales Assistant Name Role Phone Michele Wright MD Primary Care Provider [phone] Edgar Szymanski MD Unavailable [phone] Shun Hurst MD Unavailable [phone] Divine Carpenter MD Unavailable [phone] Ambika Cain CF-POWER BENDER OPERATOR Unavailable Unavailab Monique Flannery RN Unavailable Unavailable Kizzy Gaspar MD Primary Care Provider [phone] Encounter Details Date Type Department Care Team (Late st Contact Info) Description 10/30/2020 [facility] [address], [address]st [place] [address] Duarte Shelton MD [address] [place] [address] [address] [place] [address] Social History Tobacco Use Types [...] [facility] [address] [place] [address] Bang Valle, [address] [place] [address] 12/11/2024 10:40 AM EDT Office Visit [facility]wing [address] [place] [address] Porfirio Viveros MD [address] [address] 01/15/2025 1:30 PM EDT Clinical Support [facility] [address] [facility], [address]nd [place] [address] 01/15/2025 3:00 PM EDT Appointment [facility] Radiology [address] [place] [address] 01/18/2025 3:10 PM EDT Office Visit [facility] Res[facility] [address] [facility], [address] [place] [address] Divine Carpenter MD [address] [facility] [address] [place] [phone] documented as of this encounter Visit Diagnoses Not on filedocumented in this encounter Additional Health Concerns Infection Onset Date Last Indicated Resolved Time COVID-19 Rule-Out 06/12/2021 06/12/2021 06/12/2021 12:25 PM EST COVID 19 (Confirmed) Comment:[facility] has verified patient has a COVID-19 positive result. A chart review has been completed, EPI PUI has been completed and sent to appropriate Health Dept. IPA Presto Log Operator: Doyle 06/12/2021 06/12/2021 07/03/2021 5: 23 AM EST documented as of this encounter Care Teams Licensed Investment Sales Assistant Relationship Specialty Start Date End Date Michele Wright MD [address] [place] [address] PCP - General 10/11/20 09/21/24 Kizzy Gaspar MD [address] [place] [address] PCP - General 09/22/24 Edgar Szymanski MD [address] [facility] [address] [place] [address] Radiation Oncologist Radiation Therapy 03/14/20 4 Shun Hurst MD [address] [facility] [address] [place] [address] Surgeon Neurosurgery 02/24/21 Divine Carpenter MD [address] [facility] Diane Zuniga [facility] [address] [place] [phone] Medical Oncologist Medical Oncology 06/13/21 Ambika Cain, CF-POWER BENDER OPERATOR Speech Language Pathologist Speech Pathology 10/06/23 Monique Jain, RN Registered Nurse Hematology and Oncology 08/31/24 documented as of this encounter
--- OUTSIDE RECORDS SUMMARY | 2024-11-15 14:03 | XMS_ITS | Encounter Summary ---
Author Organization Healthcare Address [address] [id number] Care Team Providers Care Jewel Corner Brushing Machine Operator Name Role Phone Michele Wright MD Primary Care Provider + [phone] Edgar Szymanski MD Unavailable [phone] Shun Hurst MD Unavailable [phone] Divine Carpenter MD Unavailable [phone] Ambika Cain CF-OIL HOUSE ATTENDANT Unavailable Unavailab Monique Flannery RN Unavailable Unavailable Kizzy Gaspar MD Primary Care Provider [phone] Reason for Visit * Reason Onset Date Comments Med Refill HCN - Patient Message 06/24/2021 Encounter Details Date Type Department Care Team (Late st Contact Info) Description 06/23/2021 Refill Pav CC Head, Neck & Respiratory 800 [facility], 2nd [place] [address] Divine Carpenter MD 800 [facility] [address] [place] [address] Social History Tobacco Use Types Packs/Day Years [...] Phone Message Dr Carpenter Reason for Call: Christina calling again to confirm the dosage // Reference # [id number]// Best contact number and optimal time of day to reach caller: [phone] Note: Please do not reply to this message. Follow-up communication and further actions as a result of this message need to be communicated with the patient directly, if the patient is not active onMyChart. If the patient is active on MyChart, they will receive notification of the communication/outcome via Sokolinhart. documented in this encounter Plan of Treatment Upcoming Encounters Date Type Department Care Team (Late st Contact Info) Description 12/06/2024 1:40 PM EDT Procedure Visit [facility] 20[address] [facility] [place] [address] Bang Valle S, DO 2049 [place] [address] 12/11/2024 10:40 AM EDT Office Visit Chai Ewing [address] [place] [address] Porfirio Viveros MD [address] [address] 01/15/2025 1:30 PM EDT Clinical Support Pav CC Head, Neck & Respiratory [address], 2nd [place] [address] 01/15/2025 3:00 PM EDT Appointment PAV G Radiology [address] [place] [address] 01/18/2025 3:10 PM EDT Office Visit Pav CC Head, Neck & Respiratory [address] 2nd [place] [address] Divine Carpenter MD [address] [place] [address] documented as of this encounter Visit Diagnoses Not on filedocumented in this encounter Additional Health Concerns Infection Onset Date Last Indicated Resolved Time COVID 19 (Confirmed) Comment:[facility] has verified patient has a COVID-19 positive result. A chart review has been completed, EPI PUI has been completed and sent to appropriate Health Dept. [facility] Paper Cone Grader: Doyle 06/12/2021 06/12/2021 07/03/2021 5: 23 AM EST Assessment Noted Time A fall risk assessment has been complete d for the patient 06/12/2021 10:08 AM EST documented as of this encounter Care Teams Jewel Corner Brushing Machine Operator Relationship Specialty Start Date End Date Michele Wright MD [address] [place] [address] PCP - General 10/11/20 09/21/24 Kizzy Gaspar MD [address] [place] [address] PCP - General 09/22/24 Edgar Szymanski MD 800 [facility] [address] [place] [address] Radiation Oncologist Radiation Therapy 03/14/20 4 Shun Hurst MD [address] [facility] [address] [place] [address] Surgeon Neurosurgery 02/24/21 Divine Carpenter MD 800 [facility] Diane Zuniga [address] [address] Medical Oncologist Medical Oncology 06/13/21 Ambika Cain, CF-OIL HOUSE ATTENDANT Speech Language Pathologist Speech Pathology 10/06/23 Monique Jain, RN Registered Nurse Hematology and Oncology 08/31/24 documented as of this encounter
--- OUTSIDE RECORDS SUMMARY | 2024-11-15 14:03 | XMS_ITS | Encounter Summary ---
Author Organization [facility] Address [address] [id number] Care Team Providers Care Shuttle Inspector Name Role Phone Michele Wright MD Primary Care Provider + [phone] Edgar Szymanski MD Unavailable [phone] Shun Hurst MD Unavailable [phone] Divine Carpenter MD Unavailable [phone] Ambika Cain CF-ANALYTICS DEVELOPER Unavailable Unavailab Monique Flannery RN Unavailable Unavailable Kizzy Gaspar MD Primary Care Provider [phone] Encounter Details Date Type Department Care Team (Late st Contact Info) Description 06/16/2021 Social Work Psych Oncology [address] [place] [address] Geri Vyas LCSW [address] [id number] Social History Tobacco Use Types Packs/Day Years [...] [facility] [address] [place] [address] Bang Valle, [address] [place] [address] 12/11/2024 10:40 AM EDT Office Visit Zehrauna Gildardo [address] [place] [address] Porfirio Viveros MD [address] [address] 01/15/2025 1:30 PM EDT Clinical Support Pav CC Head, Neck & Respiratory 800 [facility], [address] [place] [address] 01/15/2025 3:00 PM EDT Appointment PAV G Radiology [address] [place] [address] 01/18/2025 3:10 PM EDT Office Visit Pav CC Head, Neck & Respiratory 800 [facility], [address] [place] [address] Divine Carpenter MD 800 [facility] [address] [place] [address] documented as of this encounter Visit Diagnoses Not on filedocumented in this encounter Additional Health Concerns Infection Onset Date Last Indicated Resolved Time COVID 19 (Confirmed) Comment:[facility] has verified patient has a COVID-19 positive result. A chart review has been completed, EPI PUI has been completed and sent to appropriate Health Dept. [facility] Casing Cooker: Doyle 06/12/2021 06/12/2021 07/03/2021 5: 23 AM EST Assessment Noted Time A fall risk assessment has been complete d for the patient 06/12/2021 10:08 AM EST documented as of this encounter Care Teams Shuttle Inspector Relationship Specialty Start Date End Date Michele Wright MD [address] [place] [address] PCP - General 10/11/20 09/21/24 Kizzy Gaspar MD [address] [place] [address] PCP - General 09/22/24 Edgar Szymanski MD [address] [facility] [address] [place] [address] Radiation Oncologist Radiation Therapy 03/14/20 4 Shun Hurst MD [address] [place] [address] Surgeon Neurosurgery 02/24/21 Divine Carpenter MD [address] [place] [address] Medical Oncologist Medical Oncology 06/13/21 Ambika Cain, CF-ANALYTICS DEVELOPER Speech Language Pathologist Speech Pathology 10/06/23 Monique Jain, RN Registered Nurse Hematology and Oncology 08/31/24 documented as of this encounter
--- OUTSIDE RECORDS SUMMARY | 2024-11-15 14:03 | XMS_ITS | Encounter Summary ---
Author Organization Healthcare Address [address] [id number] Care Team Providers Care Experimental Mechanic Electrical Name Role Phone Shun Hurst MD Unavailable [phone] Divine Carpenter MD Unavailable [phone] Ambika Cain CF-NURSE INFORMATICS EDUCATOR Unavailable Unavailab Monique Flannery RN Unavailable Unavailable Kizzy Gaspar MD Primary Care Provider [phone] Encounter Details Date Type Department Care Team (Latest Contact Info) Description 09/29/2024 Travel Social History Tobacco Use Types Packs/Day [...] Jeffries RN documented as of this encounter Plan of Treatment Upcoming Encounters Date Type Department Care Team (Late st Contact Info) Description 12/06/2024 1:40 PM EDT Procedure Visit [facility] [address] [place] [address] Bang Valle S, DO [address]49 [place] [address] 12/11/2024 10:40 AM EDT Office Visit Chai Ewing [address] [place] [address] Porfirio Viveros MD [address] [address] 01/15/2025 1:30 PM EDT Clinical Support Pav CC Head, Neck & Respiratory 800 [facility], [address]nd [place] [address] 01/15/2025 3:00 PM EDT Appointment PAV G Radiology [address] [place] [address] 01/18/2025 3:10 PM EDT Office Visit Pav CC Head, Neck & Respiratory 800 [facility], [address] [place] [address] Divine Carpenter MD 800 [facility] [address] [place] [address] documented as of this encounter Visit Diagnoses Not on filedocumented in this encounter Additional Health Concerns Assessment Noted Time A fall risk assessment has been complete d for the patient 08/28/2024 2:26 PM EDT A Body Mass Index follow-up plan has been documented for the patient 09/17/2024 4:12 PM EDT documented as of this encounter Care Teams Experimental Mechanic Electrical Relationship Specialty Start Date End Date Kizzy Gaspar MD [address] [place] [address] PCP - General 09/22/24 Shun Hurst MD [address] [place] [facility] [address] [place] [address] Surgeon Neurosurgery 02/24/21 Divine Carpenter MD 800 [facility] [address] [place] [address] Medical Oncologist Medical Oncology 06/13/21 Ambika Cain, CF-NURSE INFORMATICS EDUCATOR Speech Language Pathologist Speech Pathology 10/06/23 Monique Jain, RN Registered Nurse Hematology and Oncology 08/31/24 documented as of this encounter
--- OUTSIDE RECORDS SUMMARY | 2024-11-15 14:03 | XMS_ITS | Encounter Summary ---
Author Organization Healthcare Address [address] [id number] Care Team Providers Care Cake Press Operator Helper Name Role Phone Michele Wright MD Primary Care Provider + [phone] Shun Hurst MD Unavailable [phone] Divine Carpenter MD Unavailable [phone] Ambika Cain CF-SUPERVISOR PREPRESS Unavailable Unavailab Monique Flannery RN Unavailable Unavailable Kizzy Gaspar MD Primary Care Provider [phone] Reason for Visit * Reason Comments Med Refill Encounter Details Date Type Department Care Team (Late st Contact Info) Description 04/20/2024 Refill Pav CC Head, Neck & Respiratory 800 [facility], 2nd [place] [address] Divine Carpenter MD 800 [facility] 134 [place] [address] Neoplasm related pain Social History Tobacco Use [...] Visit [facility] at [facility] 2049 [facility] [place] [address] Bang Valle, 2049 [place] [address] 12/11/2024 10:40 AM EDT Office Visit Chai Ewing 2[address] [place] [address] Porfirio Viveros MD [address] [address] 01/15/2025 1:30 PM EDT Clinical Support Pav CC Head, Neck & Respiratory 800 [facility], [address]nd [place] [address] 01/15/2025 3:00 PM EDT Appointment PAV G Radiology [address] [place] [address] 01/18/2025 3:10 PM EDT Office Visit Pav CC Head, Neck & Respiratory 800 [facility], [address]nd [place] [address] Divine Carpenter MD 800 [facility] [address] [place] [address] documented as of this encounter Visit Diagnoses [...] documented as of this encounter Care Teams Cake Press Operator Helper Relationship Specialty Start Date End Date Michele Wright MD [address] [place] [address] PCP - General 10/11/20 09/21/24 Kizzy Gaspar MD [address] [place] [address] PCP - General 09/22/24 Shun Husrt MD [address] [facility] [address] [place] [address] Surgeon Neurosurgery 02/24/21 Divine Carpenter MD 800 [facility] [address] [place] [address] Medical Oncologist Medical Oncology 06/13/21 Ambika Cain, SHAW-SUPERVISOR PREPRESS Speech Language Pathologist Speech Pathology 10/06/23 Monique Jain, RN Registered Nurse Hematology and Oncology 08/31/24 documented as of this encounter
--- OUTSIDE RECORDS SUMMARY | 2024-11-15 14:03 | XMS_ITS ---
Author Organization Healthcare Address [address] [place] [address] Care Team Providers Care Heater Engineer Helper Name Role Phone Shun Hurst MD Unavailable [phone] Divine Carpenter MD Unavailable [phone] Ambika Cain-WELLNESS SPECIALIST Unavailable Unavailab Monique Flannery RN Unavailable Unavailable Kizzy Gaspar MD Primary Care Provider [phone] Active Problems Problem Noted Date Diagnosed Date Bilateral carotid artery stenosis 03/11/2023 Neuropathy of right upper extremity 03/11/2023 History of laryngeal cancer 09/10/2022 Second hand smoke exposure 07/28/2021 Good tolerance for activity 07/21/2021 Hx of deep venous thrombosis 04/04/2021 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 Past Treatment and Therapy Plans Infusion Treatment 1 Plan Name Start Date Discontinue Date Treatment Medications Discontinue Reason Plan Provider (RESTRICTED) TIXAGEVIMAB / CILGAVIMAB FOR PROPHYLAXIS 08/18/2021 03/23/2022 No medications scheduled. Other (See Comments) Divine Carpenter MD (RESTRICTED) TIXAGEVIMAB / CILGAVIMAB FOR PROPHYLAXIS 06/30/2021 07/28/2021 No medications scheduled. Therapy Complete Divine Carpenter MD Oncology Treatment Plan Name Start Date Discontinue Date Treatment Medications Discontinue Reason Plan Provider Cycles CARBOplatin / Fluorouracil Every 21 Days 03/10/20 21 03/23/2022 5-FU (Adrucil)5-FU (Adrucil) infusion - for home use (VENDOR supplied)CARBO platin (Paraplatin)CA RBOplatin (Paraplatin) IVPB (by AUC: GOG-COCKCROFT GAULT) Other (See Comments) Divine Carpenter MD 6 of 8 cycles started Cetuximab / CARBOplatin / Fluorouracil Every 21 Days 1 02/17/2021 CARBOplatin (Paraplatin)CA RBOplatin (Paraplatin) IVPB (by AUC: GOG-COCKCROFT GAULT)cetuxima b (Erbitux) IVPB Toxicity/Compl ication Divine Carpenter MD 2 of 6 cycles started [id number]: Pembrolizumab Every 42 Days Every 84 Days 03/14/20 20 11/25/2020 No medications scheduled. Progression Divine Carpenter MD 3 of 8 cycles started Past Radiation Episodes * 3D BUDGET REPORT CLERK: Right Chest wallOverview* First Treatment Date Last Treatment Date Treatment Site Technique Goal Episode Provider 12/09/2020 12/20/2020 Right Chest wall 3D BUDGET REPORT CLERK * Linked Problems Cancer of the voiceboxSecond duncan cancer Treatment Courses* Course C3 12/09/2020 - 12/20/2020 Treatment Period Fraction Dose Fractions Total Dose Plans Planned C21C22 RTAx 12/09/2020 - 12/20/2020 300 cGy 3,000 cGy Reference Points Delivered Right Axilla 12/09/2020 - 12/20/2020 3,000 cGy Lifetime Dose Tracking * Chemical Lifetime Dose Automatic Entry Manual Entr y Fluoro Time 5.3 minutes 5.3 minutes 0 minutes Air Kerma 130.3 mGy 130.3 mGy 0 mGy Air Kerma Area Product 2,131.24 Gym 2,131.24 Gym 0 Gym Resolved Problems Problem Noted Date Diagnosed Date Resolved Date Second hand smoke exposure 06/30/2021 0 07/21/2021 Acute COVID-19 06/12/2021 06/16/2021 Dysphagia causing pulmonary aspiration with swallowing 04/22/2021 04/11/2022 Asymmetric SNHL (sensorineural hearing loss) 7 07/21/2021 Subjective tinnitus of left ear 04/07/2017 07/21/2021
[2024-11-15] MEDS: SODIUM CHLORIDE 0.9% 10ML FLUSH SYRINGE 10 ML IV (14:05)
== END 2024-11-15 14:10 | disposition home or self-care (01) ==
LOC: INF 13:58
PROVIDERS: Visit Provider Internal Medicine
DX: Z45.2 Encounter for adjustment and management of vascular access device (principal)
CPT/HCPCS: 96523; J1642

== ENCOUNTER 2024-12-13 13:57 | Outpatient (CLI) | payer OTHER, SELFPAY ==
--- OUTSIDE RECORDS SUMMARY | 2024-12-13 14:01 | XMS_ITS | Encounter Summary ---
Author Organization Healthcare Address [address] [place] [address] Care Team Providers Care Speech Language Pathologist Name Role Phone Shun Hurst MD Unavailable [phone] Divine Carpenter MD Unavailable [phone] Ambika Cain CF-INTERNET MARKETING COORDINATOR Unavailable Unavailab Monique Flannery RN Unavailable Unavailable Kizzy Gasapr MD Primary Care Provider [phone] Reason for Visit * Reason Onset Date Comments Med Refill 11/30/2024 Encounter Details Date Type Department Care Team (Late st Contact Info) Description 11/30/2024 Refill Pav CC Head, Neck & Respiratory 800 [facility], 2nd [place] [address] Divine Carpenter MD [address] [facility] 134 [place] [address] Social History Tobacco Use Types [...] Care Team (Late st Contact Info) Description 01/15/2025 1:30 PM EDT Clinical Support Pav CC Head, Neck & Respiratory 800 [facility], 2nd [place] [address] 01/15/2025 3:00 PM EDT Appointment PAV G Radiology [address] [place] [address] 01/18/2025 3:10 PM EDT Office Visit Pav CC Head, Neck & Respiratory 800 [facility], 2nd [place] [address] Divine Carpenter MD 800 [facility] [address] [place] [address] documented as of this encounter Visit Diagnoses Not on filedocumented in this encounter Additional Health Concerns Assessment Noted Time A fall risk assessment has been complete d for the patient 08/28/2024 2:26 PM EDT A Body Mass Index follow-up plan has been documented for the patient 09/17/2024 4:12 PM EDT documented as of this encounter Care Teams Speech Language Pathologist Relationship Specialty Start Date End Date Kizzy Gaspar MD [address] [place] [address] PCP - General 09/22/24 Shun Hurst MD [address] [facility] [address] [place] [address] Surgeon Neurosurgery 02/24/21 Divine Carpenter MD [address] [facility] [address] [facility] 134 [place] [address] Medical Oncologist Medical Oncology 06/13/21 Ambika Cain, CF-INTERNET MARKETING COORDINATOR Speech Language Pathologist Speech Pathology 10/06/23 Monique Jain, RN Registered Nurse Hematology and Oncology 08/31/24 documented as of this encounter
--- OUTSIDE RECORDS SUMMARY | 2024-12-13 14:01 | XMS_ITS | Encounter Summary ---
Author Organization Healthcare Address [address] [id number] Care Team Providers Care Barker Peeler Name Role Phone Michele Wright MD Primary Care Provider + [phone] Edgar Szymanski MD Unavailable [phone] Shun Hurst MD Unavailable [phone] Divine Carpenter MD Unavailable [phone] Ambika Cain CF-DOWELER Unavailable Unavailab Monique Flannery RN Unavailable Unavailable Kizzy Gaspar MD Primary Care Provider [phone] Encounter Details Date Type Department Care Team (Late st Contact Info) Description 12/19/2020 Lab Requisition PAV H Lab [address] [place] [address] Divine Carpenter MD 800 [facility] [address] [place] [address] Malignant neoplasm of larynx, unspecified [...] Pav CC Head, Neck & Respiratory 800 [facility], 2nd [place] [address] 01/15/2025 3:00 PM EDT Appointment PAV G Radiology [address] [place] [address] 01/18/2025 3:10 PM EDT Office Visit Pav CC Head, Neck & Respiratory 800 [facility], [address]nd [place] [address] Divine Carpenter MD [address] [place] [address] documented as of this encounter Procedures Procedure Name Priority Date/Time Associated Diagnosis Comments AP MISCELLANEOUS LAB TEST (SO) Routine 12/03/2020 12:00 AM EDT Malignant neoplasm of larynx, unspecified (CMS/HCC) documented in this encounter Results * - Miscellaneous Test (12/03/2020 12:00 AM EDT) Test name [facility] One CDX 12/31/2020 12:51 PM EDT [facility] Test Result See Scan 12/31/2020 12:51 PM EDT [facility] See Scanned Result 12/31/2020 12:51 PM EDT [facility] Tissue 12/03/2020 12/19/2020 11: 50 AM EDT Divine Carpenter MD LAB REF LAB BLOOD AND FLUID ORD Final Result [facility] documented in this encounter [...] and sent to appropriate Health Dept. [facility] Mobile Phone Salesperson: Doyle 06/12/2021 06/12/2021 07/03/2021 5: 23 AM EST Assessment Noted Time A fall risk assessment has been complete d for the patient 11/26/2020 2:59 PM EDT documented as of this encounter Care Teams Barker Peeler Relationship Specialty Start Date End Date Michele Wright MD [address] [place] [address] PCP - General 10/11/20 09/21/24 Kizzy Gaspar MD [address] [place] [address] PCP - General 09/22/24 Edgar Szymanski MD 800 [facility] [address] [place] [address] Radiation Oncologist Radiation Therapy 03/14/20 4 Shun Hurst MD [address] [facility] [address] [place] [address] Surgeon Neurosurgery 02/24/21 Divine Carpenter MD 800 [facility] [address] [place] [address] Medical Oncologist Medical Oncology 06/13/21 Ambika Cain, CF-DOWELER Speech Language Pathologist Speech Pathology 10/06/23 Monique Jain, RN Registered Nurse Hematology and Oncology 08/31/24 documented as of this encounter
--- OUTSIDE RECORDS SUMMARY | 2024-12-13 14:01 | XMS_ITS | Encounter Summary ---
Author Organization Healthcare Address [address] [id number] Care Team Providers Care Gallery Or Museum Curator Name Role Phone Michele Wright MD Primary Care Provider + [phone] Shun Hurst MD Unavailable [phone] Divine Carpenter MD Unavailable [phone] Ambika Cain CF-SUPERVISOR TOWER Unavailable Unavailab Monique Flannery RN Unavailable Unavailable Kizzy Gaspar MD Primary Care Provider [phone] Reason for Visit * Reason Comments Med Refill Encounter Details Date Type Department Care Team (Late st Contact Info) Description 04/20/2024 Refill Pav CC Head, Neck & Respiratory 800 [facility], 2nd [place] [address] Divine Carpenter MD 800 [facility] 134 [place] [address] Neoplasm related pain Social History Tobacco Use [...] Respiratory 800 [facility], 2nd [place] [address] 01/15/2025 3:00 PM EDT Appointment PAV G Radiology [address] [place] [address] 01/18/2025 3:10 PM EDT Office Visit Pav CC Head, Neck & Respiratory 800 [facility], 2nd [place] [address] Divine Carpenter MD 800 [facility] [address] [place] [address] documented as of this encounter Visit Diagnoses [...] documented as of this encounter Care Teams Gallery Or Museum Curator Relationship Specialty Start Date End Date Michele Wright MD [address] [place] [address] PCP - General 10/11/20 09/21/24 Kizzy Gaspar MD [address] [place] [address] PCP - General 09/22/24 Shun Hurst MD [address] [facility] [address] [place] [address] Surgeon Neurosurgery 02/24/21 Divine Carpenter MD 800 [facility] [address] [address] Medical Oncologist Medical Oncology 06/13/21 Ambika Cain CF-SUPERVISOR TOWER Speech Language Pathologist Speech Pathology 10/06/23 Monique Jain RN Registered Nurse Hematology and Oncology 08/31/24 documented as of this encounter
--- OUTSIDE RECORDS SUMMARY | 2024-12-13 14:01 | XMS_ITS ---
Author Organization Healthcare Address [address] [place] [address] Care Team Providers Care Traffic Rate Clerk Name Role Phone Shun Hurst MD Unavailable [phone] Divine Carpenter MD Unavailable [phone] Ambika Cain-RECEPTIONIST/TELEPHONE OPERATOR Unavailable Unavailab Monique Flannery RN Unavailable Unavailable Kizzy Gaspar MD Primary Care Provider [phone] Active Problems Problem Noted Date Diagnosed Date Bilateral carotid artery stenosis 03/11/2023 Neuropathy of right upper extremity 03/11/2023 History of laryngeal cancer 09/10/2022 Second hand smoke exposure 07/28/2021 Good tolerance for activity 07/21/2021 Hx of deep venous thrombosis 04/04/2021 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 Progression Divine Carpenter MD 3 of 8 cycles started Past Radiation Episodes * 3D PAPER REWINDER OPERATOR: Right Chest wallOverview* First Treatment Date Last Treatment Date Treatment Site Technique Goal Episode Provider 12/09/2020 12/20/2020 Right Chest wall 3D PAPER REWINDER OPERATOR * Linked Problems Cancer of the voiceboxSecond [...]
--- OUTSIDE RECORDS SUMMARY | 2024-12-13 14:01 | XMS_ITS | Clinical Summary ---
Author Organization Healthcare Address [address] [place] [address] Care Team Providers Care Exhibition Designer Name Role Phone Shun Hurst MD Unavailable Divine Carpenter MD Unavailable [phone] Ambika Cain-PANEL LAMINATOR Unavailable Unavailab Monique Flannery RN Unavailable Unavailable Kizzy Gaspar MD Primary Care Provider [phone] Allergies Active Allergy Reactions Criticality Noted Date [...] day. 120 tablet 2 09/26/19 25 Active oxyCODONE (Roxicodone) 30 MG immediate release tabletIndication s:Neoplasm related pain Take 1 tablet by mouth every 3 hours as needed for severe pain. 240 tablet 10/31/19 25 Active ALPRAZolam (Xanax) 1 MG tablet Take 1 tablet by mouth 2 times a day. 60 tablet 12/01/19 25 Active ALPRAZolam (Xanax) 1 MG tablet TAKE 1 TABLET BY MOUTH TWO TIMES A DAY 60 tablet 10/05/19 25 025 Discontin ued(Reord er) [...] thrombosis) 10/18/2019 Aspiration of liquid 12/28/2018 WPW (Vfoju-Sgjqdrxyq-Ivcpd syndrome) 04/15/2018 Aphonia 04/04/2018 Status post laryngectomy [...] Encounters Date Type Department Care Team Description 11/30/2024 Refill [facility], [address] [place] [address] Divine Carpenter MD 10/04/2024 Refill [facility] Res[facility], [address]nd [place] [address] Divine Carpenter MD Neoplasm related pain 09/29/2024 9:29 AM EDT Anesthesia Event [facility] [address] [place] [address] Blank Lemon MD Harward, Amy E, PA 09/29/2024 9:15 AM EDT - 09/29/2024 10:40 AM EDT Surgery [facility] [address] [place] [address] Gil Hernandez MD FLEXIBLE ESOPHAGOSCOPY WITH BALLOON DILATION 09/29/2024 7:33 AM EDT - 09/29/2024 11:35 AM EDT Hospital Encounter [facility] [address] [place] [address] Gil Hernandez MD Esophageal stenosis Discharge Disposition: Home or Self Care 09/29/2024 Travel 09/25/2024 3:45 PM EDT Pre-Admission Testing [facility] [address], 1st [place] [address] 09/25/2024 Travel 09/25/2024 Refill [facility] Head[facility] Neck [facility] Respiratory [facility], 2nd [place] [address] Monique Jain RN Neoplasm related pain 09/13/2024 10:30 AM EDT Office Visit [facility] Otolaryngology [address], 3rd [place] [address] Gil Hernandez MD Esophageal stenosis (Primary Dx); Cancer of larynx (CMS/HCC); History of laryngectomy; Dysphagia, pharyngeal 09/13/2024 Travel from Last 3 Months Family History [...] Height 177.8 cm (5' 10 ) 09/29/2024 8: 08 AM EDT Body Mass Index 28.22 09/29/2024 8:08 AM EDT Plan of Treatment Upcoming Encounters Date Type Department Care Team ([facility] st Contact Info) Description 01/15/2025 1:30 PM EDT Clinical Support Pav [facility] Head, Neck & Respiratory [address] [facility], 2nd [place] [address] 01/15/2025 3:00 PM EDT Appointment [facility] Radiology [address] [place] [address] 01/18/2025 3:10 PM EDT Office Visit [facility] Head[facility] Neck [facility] Respiratory [facility], 2nd [place] [address] Divine Carpenter MD [facility] [address] [place] [address] Health Maintenance Due Date Last Done Comments [facility]-Diabetes: Hemoglobin A1C 1966 [facility]-/Child/Adol SDOH Screenings 1966 Diabetes: Dental Exam 1976 [...] (2 of 2 - PPSV23) 02/17/2017 12/23/2016 [id number]-96 Vaccine (3 - Moderna risk series) 11/07/2020 10/10/2020, 09/12/2020 [facility]-Depression Screening 08/18/2022 08/18/2021, 11/0 05/2020 [facility]-Influenza Vaccine (#1) 01/29/202505/19, 05/12/2022, 02/21/2018 [facility]-HIV Screening Completed 06/12/2021 [facility]-Hepatitis [...] this topic Medical Devices Implanted Type Area Java Oracle Developer Device Identifier Shelf Expiration Date Model / Serial / Lot Port Clearvue Power 8fr - [id number] Implanted:Qty: 1 on 03/06/2021 by Clyde Aguillon MD at [facility] [employer]-[id number] / / Description:8 Fr Single lume n power port, 25 cm length. Procedures Procedure Name Priority Date/Time Associated Diagnosis Comments SURGICAL PATHOLOGY EXAM Routine 09/30/19 10:05 AM EDT Esophageal stenosis PB ANESTHESIA PLACEHOLDER Routine 2024 9:39 AM EDT CO AN ELECTIVE ENDOTRACHEAL AIRWAY Routine 09/29/2024 9:39 AM EDT INJECTION, ONABOTULINUMTOXINA 09/29/2024 9:14 AM EDT Esophageal stenosis INJECTION, VOCAL CORD, LARYNGOSCOPIC 09/29/2024 9:14 AM EDT Esophageal stenosis ESOPHAGOSCOPY, WITH DILATION 09/29/2024 9:14 AM EDT Esophageal stenosis HEPATITIS C ANTIBODY - ED W/REFLEX TO HCV QUANT PCR STAT 06/12/2021 12:53 PM EST HIV 1/2 ANTIBODY/ANTIGEN SCREEN WITH REFLEX TO HIV I/II DIFFERENTIATION STAT 06/12/2021 12:53 PM EST from Last 3 Months or Most Recently Relevant to Health Maintenance Results * Surgical Pathology Exam (09/29/2024 10:05 AM EDT) Case Report Surgical Pathology Case: [id number] Authorizing Provider: Gil Hernandez MD Collected: 09/29/2024 1005 Ordering Location: [facility] Received: 09/29/2024 1217 Surgery Pathologist: Clarke Leal MD Specimen: Larynx, Scott esophageal intriotus 10/03/2024 2:19 PM EDT [facility] Final Diagnosis A. SCOTT ESOPHAGEAL INTRIOTUS - BENIGN SQUAMOUS EPITHELIUM WITH HYPERKERATOSIS 10/03/2024 2:19 PM EDT [facility] at 1419 EDT Clinical Information Esophageal stenosis 10/03/2024 2:19 PM EDT [facility] Gross Description A. SCOTT ESOPHAGEAL INTRIOTUS Received in formalin labeled Scott esophageal intriotus are multiple white-vang soft tissue fragments measuring less than 0.1 to 0.3 cm in greatest dimension. Entirely submitted in cassette A1. Cold Time: <1m Jennifer Gipson 10/03/2024 2:19 PM EDT [facility] Note: A resident was involved in the service. I attest I examined the relevant preparations for the specimens and confirmed the diagnosis or interpretation. 10/03/2024 2:19 PM EDT [facility] Tissue Laryngeal structure / Unknown 09/29/2024 10:05 AM EDT 09/29/2024 12:17 PM EDT Comment:Pre-op diagnosis: Esophageal stenosis us Gil Hernandez MD LAB PATHOLOGY ORDERABLES Final R esult [facility] [address] [place] [address] * CO AN ELECTIVE ENDOTRACHEAL AIRWAY, PB ANESTHESIA PLACEHOLDER (09/29/2024 9:39 AM EDT) Narrative Shaun Tapia CRNA, DNP - 09/29/2024 9:39 AM EDT Shaun Tapia CRNA, DNP 09/29/2024 9:47 AM Airway Date/Time: 09/29/2024 9:39 AM Reason: elective Airway not difficult General Information and Staff Patient location during procedure: OR MOLASSES COLORING OPERATOR: Shaun Tapia CRNA, DNP Performed: MOLASSES COLORING OPERATOR Patient Condition Indications for airway management: anesthesia Patient position: sniffing Final Airway Details Final airway type: endotracheal airway Successful airway: ETT and MOTOR AND GENERATOR BRUSH MAKER Cuffed: yes Successful intubation technique: blind Adjuncts used in placement: intubating stylet Endotracheal tube insertion site: tracheostomy Blade: La ETT size (mm): 6.0 Placement verified by: chest auscultation and capnometry Measured from: stoma Additional Comments Atraumatic. No change to dentition. us Blank Lemon MD ANESTHESIA ORDERABLES Final Result * HIV 1 & 2 Antibody/Antigen Screen (06/12/2021 12:53 PM EST) HIV 1 & 2 Antibody/Anti gen Screen Nonreactive Nonreactive 06/12/2021 2:03 PM EST [facility] Blood Venous blood specimen / Unknown Venipuncture / Unknown 06/12/2021 12:53 PM EST 06/12/2021 1:07 PM EST us Berta Mohan MD LAB BLOOD ORDERABLES Final Res ult Performing Organization Address [facility]/ZIP Co de Phone Number [facility] [address] [place] [address] * [place] Hepatitis C Antibody (06/12/2021 12:53 PM EST) Hepatitis C Antibody Negative Negative 06/12/2021 2:02 PM EST [facility] Blood Venous blood specimen / Unknown Venipuncture / Unknown 06/12/2021 12:53 PM EST 06/12/2021 1:07 PM EST us Berta Mohan MD LAB BLOOD ORDERABLES Final Res ult [facility] [address] [place] [address] from Last 3 Months or Most Recently Relevant to Health Maintenance Insurance Advance Directives * DNR/DNI (Latest Code Status on File) Date Activated Date Inactivated Comments 06/12/2021 2:29 PM 06/16/2021 6:02 PM Question Answer Comments DNR determined on/before admission date? Yes Patient has decision-making capacity? Yes Care Teams Exhibition Designer Relationship Specialty Start Date End Date Kizzy Gaspar MD [address] [place] [address] PCP - General 09/22/24 Shun Hurst MD [address] [place] [address] Surgeon Neurosurgery 02/24/21 Divine Carpenter MD [facility] Diane Zuniga [address] [address] Medical Oncologist Medical Oncology 06/13/21 Ambika Cain, CF-PANEL LAMINATOR Speech Language Pathologist Speech Pathology 10/06/23 Monique Jain, RN Registered Nurse Hematology and Oncology 08/31/24
--- OUTSIDE RECORDS SUMMARY | 2024-12-13 14:01 | XMS_ITS | Encounter Summary ---
Author Organization Healthcare Address [address] [place] [address] Care Team Providers Care Senior Program Manager Name Role Phone Michele Wright MD Primary Care Provider + [phone] Shun Hurst MD Unavailable [phone] Divine Carpenter MD Unavailable [phone] Ambika Cain CF-FELLMONGERY WORKER Unavailable Unavailab Monique Flannery RN Unavailable Unavailable Kizzy Gaspar MD Primary Care Provider [phone] Reason for Referral * Consultation (Routine) - Closed Specialty Diagnoses / Procedures Referred By Ortega harden Referred To Contact Hand Surgery Diagnoses Paresthesia and pain of both upper extremities Tanika Ortiz APRN [address] [place] [address] Phone: tel: fax: [facility] [address] [place] [address] Phone: tel: fax: Referral ID Status Reason Start Date Expiration Date V isits Requested Visits Authorized [id number] Closed Specialty Services Required 08/07/2024 02/06/2026 1 1 Encounter Details Date Type Department Care Team (Late st Contact Info) Description 08/07/2024 [facility] [address] [place] [address] Tanika Ortiz APRN [address] [place] [address] Paresthesia and pain of both [...] Upcoming Encounters Date Type Department Care Team ([facility] st Contact Info) Description 01/15/2025 1:30 PM EDT Clinical Support Pav CC Head, Neck & Respiratory 800 [facility], 2nd [place] [address] 01/15/2025 3:00 PM EDT Appointment [facility] Radiology [address] [place] [address] 01/18/2025 3:10 PM EDT Office Visit Pav [facility] Head, Neck & Respiratory 800 [facility], 2nd [place] [address] Divine Carpenter MD 800 [facility] [address] [place] [address] Scheduled Referrals Name Type Priority Associated Diagnoses [...] as of this encounter Care Teams Senior Program Manager Relationship Specialty Start Date End Date Michele Wright MD [address] [place] [address] PCP - General 10/11/20 09/21/24 Kizzy Gaspar MD [address] [place] [address] PCP - General 09/22/24 Shun Hurst MD [address] [facility] [address] [place] [address] Surgeon Neurosurgery 02/24/21 Divine Carpenter MD 800 [facility] [address] [place] [address] Medical Oncologist Medical Oncology 06/13/21 Ambika Cain, CF-FELLMONGERY WORKER Speech Language Pathologist Speech Pathology 10/06/23 Monique Jain, RN Registered Nurse Hematology and Oncology 08/31/24 documented as of this encounter
--- OUTSIDE RECORDS SUMMARY | 2024-12-13 14:01 | XMS_ITS | Encounter Summary ---
Author Organization [facility] Address [address] [place] [id number] Care Team Providers Care Laboratory Supervisor Name Role Phone Michele Wright MD Primary Care Provider + [phone] Edgar Szymanski MD Unavailable [phone] Shun Hurst MD Unavailable [phone] Divine Carpenter MD Unavailable [phone] Ambika Cain CF-BULK SAUSAGE CASING TIER OFF Unavailable Unavailab Monique Flannery RN Unavailable Unavailable Kizzy Gaspar MD Primary Care Provider [phone] Encounter Details Date Type Department Care Team (Late st Contact Info) Description 06/16/2021 Social Work Psych Oncology [address] [place] [address] Geri Vyas LCSW [place] [id number] Social History Tobacco Use Types Packs/Day Years [...] Respiratory 800 [facility], 2nd [place] [address] 01/15/2025 3:00 PM EDT Appointment PAV G Radiology [address] [place] [address] 01/18/2025 3:10 PM EDT Office Visit Pav CC Head, Neck & Respiratory [address] , [address]nd [place] [address] Divine Carpenter MD [address] [facility] [address] [place] [address] documented as of this encounter Visit Diagnoses Not on filedocumented in this encounter Additional Health Concerns Infection Onset Date Last Indicated Resolved Time COVID 19 (Confirmed) Comment:IPAC has verified patient has a COVID-19 positive result. A chart review has been completed, EPI PUI has been completed and sent to appropriate Health Dept. IPAC Gearcase Assembler: Doyle 06/12/2021 06/12/2021 07/03/2021 5: 23 AM EST Assessment Noted Time A fall risk assessment has been complete d for the patient 06/12/2021 10:08 AM EST documented as of this encounter Care Teams Laboratory Supervisor Relationship Specialty Start Date End Date Michele Wright MD [address] [place] [address] PCP - General 10/11/20 09/21/24 Kizzy Gaspar MD [address] [place] [address] PCP - General 09/22/24 Edgar Szymanski MD [address] [place] [address] Radiation Oncologist Radiation Therapy 03/14/20 4 Shun Hurst MD [address] [facility] [address] [place] [address] Surgeon Neurosurgery 02/24/21 Divine Carpenter MD [address] [facility] [address] [place] [address] Medical Oncologist Medical Oncology 06/13/21 Ambika Cain, CF-BULK SAUSAGE CASING TIER OFF Speech Language Pathologist Speech Pathology 10/06/23 Monique Jain, RN Registered Nurse Hematology and Oncology 08/31/24 documented as of this encounter
--- OUTSIDE RECORDS SUMMARY | 2024-12-13 14:01 | XMS_ITS | Encounter Summary ---
Author Organization Healthcare Address [address] [place] [address] Care Team Providers Care Welder Apprentice Gas Name Role Phone Michele Wright MD Primary Care Provider + [phone] Edgar Szymanski MD Unavailable [phone] Shun Hurst MD Unavailable [phone] Divine Carpenter MD Unavailable [phone] Ambika Cain CF-MAKEUP EDITOR Unavailable Unavailab Monique Flannery RN Unavailable Unavailable Kizzy Gaspar MD Primary Care Provider [phone] Encounter Details Date Type Department Care Team (Late st Contact Info) Description 10/30/2020 [facility] [address], [address]st [place] [address] Duarte Shelton MD [address] [place] [address] [address] [place] [address] Social History Tobacco Use Types [...] & Respiratory [address] , [address] [place] [address] 01/15/2025 3:00 PM EDT Appointment PAV G Radiology [address] [place] [address] 01/18/2025 3:10 PM EDT Office Visit Pav CC Head, Neck & Respiratory 800 [facility], [address]nd [place] [address] Divine Carpenter MD 800 [facility] [address] [place] [address] documented as of this encounter Visit Diagnoses Not on filedocumented in this encounter Additional Health Concerns Infection Onset Date Last Indicated Resolved Time COVID-19 Rule-Out 06/12/2021 06/12/2021 06/12/2021 12:25 PM EST COVID 19 (Confirmed) Comment:IPAC has verified patient has a COVID-19 positive result. A chart review has been completed, EPI PUI has been completed and sent to appropriate Health Dept. IPAC Resource Program Teacher: Doyle 06/12/2021 06/12/2021 07/03/2021 5: 23 AM EST documented as of this encounter Care Teams Welder Apprentice Gas Relationship Specialty Start Date End Date Michele Wright MD [address] [place] [address] PCP - General 10/11/20 09/21/24 Kizzy Gaspar MD [address] [place] [address] PCP - General 09/22/24 Edgar Szymanski MD [address] [place] [address] Radiation Oncologist Radiation Therapy 03/14/20 4 Shun Hurst MD [address] [place] [address] Surgeon Neurosurgery 02/24/21 Divine Carpenter MD [address] [facility] [address] [place] [address] Medical Oncologist Medical Oncology 06/13/21 Ambika Cain, CF-MAKEUP EDITOR Speech Language Pathologist Speech Pathology 10/06/23 Monique Jain RN Registered Nurse Hematology and Oncology 08/31/24 documented as of this encounter
--- OUTSIDE RECORDS SUMMARY | 2024-12-13 14:01 | XMS_ITS | Encounter Summary ---
Author Organization Healthcare Address [address] [place] [id number] Care Team Providers Care Oxyacetylene Welder Name Role Phone Michele Wright MD Primary Care Provider [phone] Edgar Szymanski MD Unavailable [phone] Shun Hurst MD Unavailable [phone] Divine Carpenetr MD Unavailable [phone] Ambika Cain CF-MOTORCYCLE MECHANIC APPRENTICE Unavailable Unavailab Monique Flannery RN Unavailable Unavailable Kizzy Gaspar MD Primary Care Provider [phone] Reason for Visit * Reason Onset Date Comments Med Refill [facility] - Patient Message 06/24/2021 Encounter Details Date Type Department Care Team (Late st Contact Info) Description 06/23/2021 Refill Pav CC Head, Neck & Respiratory 800 [facility], [address]nd [place] [address] Divine Carpenter MD 800 [facility] [address] [place] [address] Social History Tobacco Use Types Packs/Day Years [...] to confirm the dosage // Reference # [id number]// Best contact number and optimal time of day to reach caller: [phone] Note: Please do not reply to this [...] Pav CC Head, Neck & Respiratory 800 [facility], [address]nd [place] [address] 01/15/2025 3:00 PM EDT Appointment PAV G Radiology [address] [place] [address] 01/18/2025 3:10 PM EDT Office Visit Pav CC Head, Neck & Respiratory 800 [facility], [address]nd [place] [address] Divine Carpenter MD 800 [facility] [address] [place] [address] documented as of this encounter Visit Diagnoses Not on filedocumented in this encounter Additional Health Concerns Infection Onset Date Last Indicated Resolved Time COVID 19 (Confirmed) Comment:[facility] verified patient has a COVID-19 positive result. A chart review has been completed, EPI PUI has been completed and sent to appropriate Health Dept. IPAC Retort Operator: Doyle 06/12/2021 06/12/2021 07/03/2021 5: 23 AM EST Assessment Noted Time A fall risk assessment has been complete d for the patient 06/12/2021 10:08 AM EST documented as of this encounter Care Teams Oxyacetylene Welder Relationship Specialty Start Date End Date Michele Wright MD [address] [place] [address] PCP - General 10/11/20 09/21/24 Kizzy Gaspar MD [address] [place] [address] PCP - General 09/22/24 Edgar Szymanski MD 800 [facility] [address] [place] [address] Radiation Oncologist Radiation Therapy 03/14/20 4 Shun Hurst MD [address] [facility] [address] [place] [address] Surgeon Neurosurgery 02/24/21 Divine Carpenter MD 800 [facility] [address] [place] [address] Medical Oncologist Medical Oncology 06/13/21 Ambika Cain, CF-MOTORCYCLE MECHANIC APPRENTICE Speech Language Pathologist Speech Pathology 10/06/23 Monique Jain, RN Registered Nurse Hematology and Oncology 08/31/24 documented as of this encounter
[2024-12-13] MEDS: SODIUM CHLORIDE 0.9% 10ML FLUSH SYRINGE 10 ML IV (14:05)
== END 2024-12-13 14:11 | disposition home or self-care (01) ==
LOC: INF 13:59
PROVIDERS: Visit Provider Internal Medicine
DX: C79.89 Secondary malignant neoplasm of other specified sites (principal)
CPT/HCPCS: 96523; J1642

== ENCOUNTER 2025-01-11 13:40 | Outpatient (CLI) | payer OTHER, SELFPAY ==
[2025-01-11] MEDS: SODIUM CHLORIDE 0.9% 10ML FLUSH SYRINGE 10 ML IV (13:50)
--- OUTSIDE RECORDS SUMMARY | 2025-01-11 14:02 | XMS_ITS | Encounter Summary ---
Author Organization Healthcare Address [address] [place] [address] Care Team Providers Care Painter And Grader Cork Name Role Phone Shun Hurst MD Unavailable [phone] Divine Carpenter MD Unavailable [phone] Ambika Cain CF-HATCHERY EMPLOYEE Unavailable Unavailab Monique Flannery RN Unavailable Unavailable Kizzy Gaspar MD Primary Care Provider [phone] Reason for Visit * Reason Onset Date Comments Med Refill 12/22/2024 Encounter Details Date Type Department Care Team (Late st Contact Info) Description 12/22/2024 Refill Pav CC Head, Neck & Respiratory 800 [facility], 2nd [place] [address] Divine Carpenter MD 800 [facility] [address] [place] [address] Neoplasm related pain Social History [...] 800 [facility], [address]nd [place] [address] 01/15/2025 3:00 PM EDT Appointment PAV G Radiology [address] [place] [address] 01/18/2025 3:10 PM EDT Office Visit Pav CC Head, Neck & Respiratory 800 [facility], 2nd [place] [address] Divine Carpenter MD 800 [facility] [address] [place] [address] documented as of this encounter Visit Diagnoses [...] documented as of this encounter Care Teams Painter And Grader Cork Relationship Specialty Start Date End Date Kizzy Gaspar MD [address] [place] [address] PCP - General 09/22/24 Shun Hurst MD [address] [facility] [address] [place] [address] Surgeon Neurosurgery 02/24/21 Divine Carpenter MD 800 [facility] [address] [place] [address] Medical Oncologist Medical Oncology 06/13/21 Ambika Cain, CF-HATCHERY EMPLOYEE Speech Language Pathologist Speech Pathology 10/06/23 Monique Jain, RN Registered Nurse Hematology and Oncology 08/31/24 documented as of this encounter
--- OUTSIDE RECORDS SUMMARY | 2025-01-11 14:02 | XMS_ITS | Encounter Summary ---
Author Organization Healthcare Address [address] [place] [address] Care Team Providers Care Hairmasters Manager Name Role Phone Michele Wright MD Primary Care Provider + [phone] Shun Hurst MD Unavailable [phone] Divine Carpenter MD Unavailable [phone] Ambika Cain CF-MORNING SHOW PRODUCER Unavailable Unavailab Monique Flannery RN Unavailable Unavailable Kizzy Gaspar MD Primary Care Provider [phone] Reason for Referral * Consultation (Routine) - Closed Specialty Diagnoses / Procedures Referred By Ortega harden Referred To Contact Hand Surgery Diagnoses Paresthesia and pain of both upper extremities Tanika Ortiz APRN [address] [place] [address] Phone: tel: fax: [facility] [address] [place] [address] Phone: tel: fax: Referral ID Status Reason Start Date Expiration Date V isits Requested Visits Authorized [id number] Closed Specialty Services Required 08/07/2024 02/06/2026 1 1 Encounter Details Date Type Department Care Team (Late st Contact Info) Description 08/07/2024 [facility] [place] [facility] [address] [place] [address] Tanika Ortiz APRN [address] [place] [address] Paresthesia and pain of both [...] Upcoming Encounters Date Type Department Care Team ([facility] st Contact Info) Description 01/15/2025 1:30 PM EDT Clinical Support Pav CC Head, Neck & Respiratory 800 [facility], 2nd [place] [address] 01/15/2025 3:00 PM EDT Appointment PAV G Radiology [address] [place] [address] 01/18/2025 3:10 PM EDT Office Visit Pav CC Head, Neck & Respiratory 800 [facility], 2nd [place] [address] Divine Carpenter MD 800 [facility] [address] [place] [address] Scheduled Referrals Name Type Priority Associated Diagnoses [...] documented as of this encounter Care Teams Hairmasters Manager Relationship Specialty Start Date End Date Michele Wright MD [address] [place] [address] PCP - General 10/11/20 09/21/24 Kizzy Gaspar MD [address] [place] [address] PCP - General 09/22/24 Shun Hurst MD [address] [facility] [address] [place] [address] Surgeon Neurosurgery 02/24/21 Divine Carpenter MD 800 [facility] [address] [place] [address] Medical Oncologist Medical Oncology 06/13/21 Ambika Cain, CF-MORNING SHOW PRODUCER Speech Language Pathologist Speech Pathology 10/06/23 Monique Jain, RN Registered Nurse Hematology and Oncology 08/31/24 documented as of this encounter
--- OUTSIDE RECORDS SUMMARY | 2025-01-11 14:03 | XMS_ITS | Encounter Summary ---
Author Organization Healthcare Address [address] [place] [id number] Care Team Providers Care Basket Person Name Role Phone Michele Wright MD Primary Care Provider + [phone] Shun Hurst MD Unavailable [phone] Divine Carpenter MD Unavailable [phone] Ambika Cain CF-EMPLOYMENT SPECIALIST/PROGRAM MANAGER Unavailable Unavailab Monique Flannery RN Unavailable Unavailable Kizzy Gaspar MD Primary Care Provider [phone] Reason for Visit * Reason Comments Med Refill Encounter Details Date Type Department Care Team (Late st Contact Info) Description 04/20/2024 Refill Pav CC Head, Neck & Respiratory 800 [facility], 2nd [place] [address] Divine Carpenter MD 800 [facility] [address] [place] [address] Neoplasm related pain Social History Tobacco Use [...] [facility], 2nd [place] [address] 01/15/2025 3:00 PM EDT Appointment PAV G Radiology [address] [place] [address] 01/18/2025 3:10 PM EDT Office Visit Pav CC Head, Neck & Respiratory [address] [facility], 2nd [place] [address] Divine Carpenter MD 800 [facility] [address] [place] [address] documented as of this encounter Visit Diagnoses [...] documented as of this encounter Care Teams Basket Person Relationship Specialty Start Date End Date Michele Wright MD [address] [place] [address] PCP - General 10/11/20 09/21/24 Kizzy Gaspar MD [address] [place] [address] PCP - General 09/22/24 Shun Hurst MD [address] [facility] [address] [place] [address] Surgeon Neurosurgery 02/24/21 Divine Carpenter MD 800 [facility] [address] [address] Medical Oncologist Medical Oncology 06/13/21 Ambika Cain CF-EMPLOYMENT SPECIALIST/PROGRAM MANAGER Speech Language Pathologist Speech Pathology 10/06/23 Monique Jain RN Registered Nurse Hematology and Oncology 08/31/24 documented as of this encounter
--- OUTSIDE RECORDS SUMMARY | 2025-01-11 14:03 | XMS_ITS | Encounter Summary ---
Author Organization [facility] Address [address] [id number] Care Team Providers Care Fire Protection Designer Name Role Phone Michele Wright MD Primary Care Provider + [phone] Edgar Szymanski MD Unavailable [phone] Shun Hurst MD Unavailable [phone] Divine Carpenter MD Unavailable [phone] Ambika Cain CF-FLIGHT LINE MECHANIC Unavailable Unavailab Monique Flannery RN Unavailable Unavailable Kizzy Gaspar MD Primary Care Provider [phone] Encounter Details Date Type Department Care Team (Late st Contact Info) Description 06/16/2021 Social Work Psych Oncology [address] [place] [address] Geri Vyas LCSW [place] [id number] Social History Tobacco Use Types Packs/Day Years [...] Respiratory 800 [facility], 2nd [place] [address] 01/15/2025 3:00 PM EDT Appointment PAV G Radiology [address] [place] [address] 01/18/2025 3:10 PM EDT Office Visit Pav CC Head, Neck & Respiratory [address] , [address] [place] [address] Divine Carpenetr MD 800 [facility] [address] [place] [address] documented as of this encounter Visit Diagnoses Not on filedocumented in this encounter Additional Health Concerns Infection Onset Date Last Indicated Resolved Time COVID 19 (Confirmed) Comment:[facility] has verified patient has a COVID-19 positive result. A chart review has been completed, EPI PUI has been completed and sent to appropriate Health Dept. [facility] Psychologist Chief: Doyle 06/12/2021 06/12/2021 07/03/2021 5: 23 AM EST Assessment Noted Time A fall risk assessment has been complete d for the patient 06/12/2021 10:08 AM EST documented as of this encounter Care Teams Fire Protection Designer Relationship Specialty Start Date End Date Michele Wright MD [address] [place] [address] PCP - General 10/11/20 09/21/24 Kizzy Gaspar MD [address] [place] [address] PCP - General 09/22/24 Edgar Szymanski MD [address] [place] [address] Radiation Oncologist Radiation Therapy 03/14/20 4 Shun Hurst MD [address] [facility] [address] [place] [address] Surgeon Neurosurgery 02/24/21 Divine Carpenter MD 800 [facility] [address] [place] [address] Medical Oncologist Medical Oncology 06/13/21 Ambika Cain, CF-FLIGHT LINE MECHANIC Speech Language Pathologist Speech Pathology 10/06/23 Monique Jain, RN Registered Nurse Hematology and Oncology 08/31/24 documented as of this encounter
--- OUTSIDE RECORDS SUMMARY | 2025-01-11 14:03 | XMS_ITS | Encounter Summary ---
Author Organization Healthcare Address [address] [place] [address] Care Team Providers Care Marshmallow Maker Name Role Phone Micehle Wright MD Primary Care Provider + [phone] Edgar Szymanski MD Unavailable [phone] Shun Hurst MD Unavailable [phone] Divine Carpenter MD Unavailable [phone] Ambika Cain CF-ADVERTISING SALES REPRESENTATIVE Unavailable Unavailab Monique Flannery RN Unavailable Unavailable Kizzy Gaspar MD Primary Care Provider [phone] Encounter Details Date Type Department Care Team (Late st Contact Info) Description 10/30/2020 [facility] [address], [address]st [place] [address] Duarte Shelton MD [address] [place] [address] [address] [place] [address] Social History Tobacco Use Types [...] & Respiratory [address] , [address]nd [place] [address] 01/15/2025 3:00 PM EDT Appointment PAV G Radiology [address] [place] [address] 01/18/2025 3:10 PM EDT Office Visit Pav CC Head, Neck & Respiratory 800 [facility], 2nd [place] [address] Divine Carpenter MD 800 [facility] [address] [place] [address] documented as of this encounter Visit Diagnoses Not on filedocumented in this encounter Additional Health Concerns Infection Onset Date Last Indicated Resolved Time COVID-19 Rule-Out 06/12/2021 06/12/2021 06/12/2021 12:25 PM EST COVID 19 (Confirmed) Comment:[facility] has verified patient has a COVID-19 positive result. A chart review has been completed, EPI PUI has been completed and sent to appropriate Health Dept. [facility] Mixing House Operator: Doyle 06/12/2021 06/12/2021 07/03/2021 5: 23 AM EST documented as of this encounter Care Teams Marshmallow Maker Relationship Specialty Start Date End Date Michele Wright MD [address] [place] [address] PCP - General 10/11/20 09/21/24 Kizzy Gaspar MD [address] [place] [address] PCP - General 09/22/24 Edgar Szymanski MD [address] [place] [address] Radiation Oncologist Radiation Therapy 03/14/20 4 Shun Hurst MD [address] [place] [address] Surgeon Neurosurgery 02/24/21 Divine Carpenter MD [address] [facility] [address] [place] [address] Medical Oncologist Medical Oncology 06/13/21 Ambika Cain, CF-ADVERTISING SALES REPRESENTATIVE Speech Language Pathologist Speech Pathology 10/06/23 Monique Jain RN Registered Nurse Hematology and Oncology 08/31/24 documented as of this encounter
--- OUTSIDE RECORDS SUMMARY | 2025-01-11 14:03 | XMS_ITS | Encounter Summary ---
Author Organization Healthcare Address [address] [place] [id number] Care Team Providers Care Fittings Tightener Name Role Phone Michele Wright MD Primary Care Provider + [phone] Edgar Szymanski MD Unavailable [phone] Shun Hurst MD Unavailable [phone] Divine Carpenter MD Unavailable [phone] Ambika Cain CF-NITRATING ACID MIXER Unavailable Unavailab Monique Flannery RN Unavailable Unavailable Kizzy Gaspar MD Primary Care Provider [phone] Encounter Details Date Type Department Care Team (Late st Contact Info) Description 12/19/2020 Lab Requisition PAV H Lab [address] [place] [address] Divine Carpenter MD 800 [facility] [address] [place] [address] Malignant neoplasm of larynx, unspecified [...] Respiratory 800 [facility], 2nd [place] [address] 01/15/2025 3:00 PM EDT Appointment PAV G Radiology [address] [place] [address] 01/18/2025 3:10 PM EDT Office Visit Pav CC Head, Neck & Respiratory 800 [facility], [address]nd [place] [address] Divine Carpenter MD [address] [place] [address] documented as of this encounter Procedures Procedure Name Priority Date/Time Associated Diagnosis Comments AP MISCELLANEOUS LAB TEST (SO) Routine 12/03/2020 12:00 AM EDT Malignant neoplasm of larynx, unspecified (CMS/HCC) documented in this encounter Results * - Miscellaneous Test (12/03/2020 12:00 AM EDT) Test name [facility] CDX 12/31/2020 12:51 PM EDT [facility] Test Result See Scan 12/31/2020 12:51 PM EDT [facility] See Scanned Result 12/31/2020 12:51 PM EDT [facility] Tissue 12/03/2020 12/19/2020 11: 50 AM EDT Divine Carpenter MD LAB REF LAB BLOOD AND FLUID ORD Final Result [facility] documented in this encounter Visit Diagnoses [...] completed and sent to appropriate Health Dept. [facility] Sample Display Preparer: Doyle 06/12/2021 06/12/2021 07/03/2021 5: 23 AM EST Assessment Noted Time A fall risk assessment has been complete d for the patient 11/26/2020 2:59 PM EDT documented as of this encounter Care Teams Fittings Tightener Relationship Specialty Start Date End Date Michele Wright MD [address] [place] [address] PCP - General 10/11/20 09/21/24 Kizzy Gaspar MD [address] [place] [address] PCP - General 09/22/24 Edgar Szymanski MD 800 [facility] [address] [place] [address] Radiation Oncologist Radiation Therapy 03/14/20 4 Shun Hurst MD [address] [address] [place] [address] Surgeon Neurosurgery 02/24/21 Divine Carpenter MD 800 [facility] Diane Rothmanrickson [facility] [address] [place] [address] Medical Oncologist Medical Oncology 06/13/21 Ambika Cain, CF-NITRATING ACID MIXER Speech Language Pathologist Speech Pathology 10/06/23 Monique Jain, RN Registered Nurse Hematology and Oncology 08/31/24 documented as of this encounter
--- OUTSIDE RECORDS SUMMARY | 2025-01-11 14:03 | XMS_ITS | Encounter Summary ---
Author Organization Healthcare Address [address] [place] [address] Care Team Providers Care General Foundry Worker Name Role Phone Shun Hurst MD Unavailable [phone] Divine Carpenter MD Unavailable [phone] Ambika Cain CF-HOT OILER Unavailable Unavailab Monique Flannery RN Unavailable Unavailable Kizzy Gaspar MD Primary Care Provider [phone] Reason for Visit * Reason Onset Date Comments Med Refill 11/30/2024 Encounter Details Date Type Department Care Team (Late st Contact Info) Description 11/30/2024 Refill Pav CC Head, Neck & Respiratory 800 [facility], 2nd [place] [address] Divine Carpenter MD [address] [facility] [address] [place] [address] Social History Tobacco Use Types [...] [facility], 2nd [place] [address] 01/15/2025 3:00 PM EDT Appointment PAV G Radiology [address] [place] [address] 01/18/2025 3:10 PM EDT Office Visit Pav CC Head, Neck & Respiratory 800 [facility], 2nd [place] [address] Divine Carpenter MD 800 [facility] [address] [place] [address] documented as of this encounter Visit Diagnoses Not on filedocumented in this encounter Additional Health Concerns Assessment Noted Time A fall risk assessment has been complete d for the patient 08/28/2024 2:26 PM EDT A Body Mass Index follow-up plan has been documented for the patient 09/17/2024 4:12 PM EDT documented as of this encounter Care Teams General Foundry Worker Relationship Specialty Start Date End Date Kizzy Gaspar MD [address] [place] [address] PCP - General 09/22/24 Shun Hurst MD [address] [facility] [address] [place] [address] Surgeon Neurosurgery 02/24/21 Divine Carpenter MD 800 [facility] [address] [place] [address] Medical Oncologist Medical Oncology 06/13/21 Ambika Cain, CF-HOT OILER Speech Language Pathologist Speech Pathology 10/06/23 Monique Jain, RN Registered Nurse Hematology and Oncology 08/31/24 documented as of this encounter
--- OUTSIDE RECORDS SUMMARY | 2025-01-11 14:03 | XMS_ITS | Clinical Summary ---
Author Organization Healthcare Address [address] [place] [address] Care Team Providers Care Senior Web Architect Name Role Phone Shun Hurst MD Unavailable [phone] Divine Carpenter MD Unavailable [phone] Ambika Cain-TRADING ASSISTANT Unavailable Unavailab Monique Flannery RN Unavailable Unavailable Kizzy Gaspar MD Primary Care Provider [phone] Allergies Active Allergy Reactions Criticality Noted Date [...] as needed for severe pain. 240 tablet 12/23/19 25 025 Active ALPRAZolam (Xanax) 1 MG tablet Take 1 tablet by mouth 2 times a day. 60 tablet 12/23/19 25 Active oxyCODONE (Roxicodone) 30 MG immediate release tabletIndication s:Neoplasm related pain Take 1 tablet by mouth every 3 hours as needed for severe pain. 240 tablet 10/31/19 25 025 Discontin ued(Reord er) ALPRAZolam (Xanax) 1 MG tablet Take 1 tablet by mouth 2 times a day. 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 [...] Encounters Date Type Department Care Team Description 12/22/2024 Refill Pav CC Head, Neck & Respiratory [address] [place] [address] Divine Carpenter MD Neoplasm related pain 11/30/2024 Refill Pav CC Head, Neck & Respiratory [address] , [address] [place] [address] Divine Carpenter MD from Last 3 Months [...] 2 10 1 2000 Smokeless Tobacco: Never Tobacco Cessation:Counseling Given: [...] Neck & Respiratory 800 [facility], [address] [place] [address] 01/15/2025 3:00 PM EDT Appointment PAV G Radiology [address] [place] [address] 01/18/2025 3:10 PM EDT Office Visit Pav CC Head, Neck & Respiratory 800 [facility], [address] [place] [address] Divine Carpenter MD 800 [facility] Diane Zuniga [address] [address] Health Maintenance Due Date Last Done [...] (2 of 2 - PPSV23) 02/17/2017 12/23/2016 [id number] Vaccine (3 - Moderna risk series) 11/07/2020 [...] this topic Medical Devices Implanted Type Area Senior International Tax Manager Device Identifier Shelf Expiration Date Model / Serial / Lot Port Clearvue Power 8fr - [id number] Implanted:Qty: 1 on 03/06/2021 by Clyde Aguillon MD at [facility] Chest Bard Peripherial V[employer]-[id number] / / Description:8 Fr Single lume n [...] ORDERABLES Final Res ult Performing Organization Address [facility] Co de Phone Number HEALTHCARE LAB [address] [place] [address] * [place] Hepatitis C Antibody (06/12/2021 12:53 PM EST) Hepatitis C Antibody Negative Negative 06/12/2021 2:02 PM EST [facility]ALTH[facility]ARE [facility] Blood Venous blood specimen / Unknown Venipuncture / Unknown 06/12/2021 12:53 PM EST 06/12/2021 1:07 PM EST us Berta Mohan MD LAB BLOOD ORDERABLES Final Res ult Performing Organization Address City/[facility] Co de Phone Number [facility] [address] [place] [id number] from Last 3 Months or Most Recently Relevant to Health Maintenance Insurance [employer] [facility] MEDICAID Advance Directives * DNR/DNI (Latest Code Status on File) Date Activated Date Inactivated Comments 06/12/2021 2:29 PM 06/16/2021 6:02 PM Question Answer Comments DNR determined on/before admission date? Yes Patient has decision-making capacity? Yes Care Teams Senior Web Architect Relationship Specialty Start Date End Date Kizzy Gaspar MD [address] [place] [address] PCP - General 09/22/24 Shun Hurst MD [address] [place] [address] Surgeon Neurosurgery 02/24/21 Divine Carpenter MD 800 [facility] Diane Zuniga [facility] [address] [place] [address] Medical Oncologist Medical Oncology 06/13/21 Ambika Cain, CF-TRADING ASSISTANT Speech Language Pathologist Speech Pathology 10/06/23 Monique Jain, RN Registered Nurse Hematology and Oncology 08/31/24
--- OUTSIDE RECORDS SUMMARY | 2025-01-11 14:03 | XMS_ITS ---
Author Organization Healthcare Address [address] 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 Progression Divine Carpenter MD 3 of 8 cycles started Past Radiation Episodes * 3D CHIEF ENTERPRISE ARCHITECT: Right Chest wallOverview* First Treatment Date Last Treatment Date Treatment Site Technique Goal Episode Provider 12/09/2020 12/20/2020 Right Chest wall 3D CHIEF ENTERPRISE ARCHITECT * Linked Problems Cancer of the voiceboxSecond [...]
--- OUTSIDE RECORDS SUMMARY | 2025-01-11 14:03 | XMS_ITS | Encounter Summary ---
Author Organization Healthcare Address [address] [place] [id number] Care Team Providers Care Field Operations Manager Name Role Phone Michele Wright MD Primary Care Provider + [phone] Edgar Szymanski MD Unavailable [phone] Shun Hurst MD Unavailable [phone] Divine Carpenter MD Unavailable [phone] Ambika Cain CF-JUNIOR DESIGNER Unavailable Unavailab Monique Flannery RN Unavailable Unavailable Kizzy Gaspar MD Primary Care Provider [phone] Reason for Visit * Reason Onset Date Comments Med Refill [facility] - Patient Message 06/24/2021 Encounter Details Date Type Department Care Team (Late st Contact Info) Description 06/23/2021 Refill Pav CC Head, Neck & Respiratory 800 [facility], [address]nd [place] [address] Divine Carpenter MD 800 [facility] [address] [place] [address] Social History Tobacco Use Types Packs/Day Years [...] to confirm the dosage // Reference # [id number]// Best contact number and optimal time of day to reach caller: [phone] Note: Please do not reply to this [...] & Respiratory 800 [facility], [address] [place] [address] 01/15/2025 3:00 PM EDT Appointment PAV G Radiology [address] [place] [address] 01/18/2025 3:10 PM EDT Office Visit Pav CC Head, Neck & Respiratory 800 [facility], [address]nd [place] [address] Divine Carpenter MD 800 [facility] [address] [place] [address] documented as of this encounter Visit Diagnoses Not on filedocumented in this encounter Additional Health Concerns Infection Onset Date Last Indicated Resolved Time COVID 19 (Confirmed) Comment:[facility] has verified patient has a COVID-19 positive result. A chart review has been completed, EPI PUI has been completed and sent to appropriate Health Dept. IPAC Take Off Worker: Doyle 06/12/2021 06/12/2021 07/03/2021 5: 23 AM EST Assessment Noted Time A fall risk assessment has been complete d for the patient 06/12/2021 10:08 AM EST documented as of this encounter Care Teams Field Operations Manager Relationship Specialty Start Date End Date Michele Wright MD [address] [place] [address] PCP - General 10/11/20 09/21/24 Kizzy Gaspar MD [address] [place] [address] PCP - General 09/22/24 Edgar Szymanski MD 800 [facility] [address] [place] [address] Radiation Oncologist Radiation Therapy 03/14/20 4 Shun Hurst MD [address] [facility] [address] [place] [address] Surgeon Neurosurgery 02/24/21 Divine Carpenter MD 800 [facility] [address] [place] [address] Medical Oncologist Medical Oncology 06/13/21 Ambika Cain, CF-JUNIOR DESIGNER Speech Language Pathologist Speech Pathology 10/06/23 Monique Jain, RN Registered Nurse Hematology and Oncology 08/31/24 documented as of this encounter
== END 2025-01-11 13:55 | disposition home or self-care (01) ==
LOC: INF 13:41
PROVIDERS: Visit Provider Internal Medicine
DX: C79.89 Secondary malignant neoplasm of other specified sites (principal)
CPT/HCPCS: 96523; J1642

== ENCOUNTER 2025-04-18 13:55 | Outpatient (CLI) | payer OTHER, SELFPAY ==
[2025-04-18] MEDS: SODIUM CHLORIDE 0.9% 10ML FLUSH SYRINGE 10 ML IV (14:30)
== END 2025-04-18 23:59 | disposition home or self-care (01) ==
LOC: INF 13:56
PROVIDERS: Visit Provider Internal Medicine
DX: C79.89 Secondary malignant neoplasm of other specified sites (principal)
CPT/HCPCS: 96523; J1642